=== PATIENT | female | born 1975 | race Caucasian/White ===

== ENCOUNTER 2018-03-22 21:28 | Emergency (ER) | payer BC ==
[~2018-03-22] VITALS: Ht 165.1 cm; Wt 113.4 kg
[~2018-03-22 21:28] MED LIST: ALPR.5T PO; CPR500T PO; CYCL10TA9 PO; DEXL60CA PO; HSCO125 SL; IBP600T1 PO; IBP800T PO; NFNEB10T PO; ONDA-42 SL; PRD20T PO
--- OUTSIDE RECORDS SUMMARY | 2018-03-22 21:34 | XMS REPORT ---
Author Author MONIQUE VILLARREAL [facility] Address [address] [place] [address] Care Team Providers Care Stonemason Apprentice Name Role Phone KENYA VILLARREALTA Unavailable PROBLEMS Type Condition ICD9-CM Code ZYH07-IC Code Onset Dates Condition Status SNOMED Code Problem Hypertriglyceridemia E78.1 Active 925357838 Problem Essential hypertension I10 Active 74107326 Problem Irritable bowel syndrome without diarrhea K58.9 Active 66699074 Problem Morbid (severe) obesity due to excess calories E66.01 Active 166962266 Problem Body mass index (BMI) of 40.0-44.9 in adult Z68.41 Active 841381328 Problem Anxiety F41.9 Active 97301339 Problem Bilateral low back pain without sciatica M54.5 Active 247616988 Problem Alternating constipation and diarrhea R19.8 Active 323925854 Problem Pre-diabetes R73.03 Active 075681114 ALLERGIES No Information ENCOUNTERS Encounter Location Date Diagnosis [facility] [address] [address] Jan, [facility] [address] [address]- 2017 Jan, [facility] [address] [address]- [address] Jan, BMI 40.0-44.9, adult Z68.41 ; Pre-diabetes R73.03 ; Essential hypertension I10 ; Morbid (severe) obesity due to excess calories E66.01 ; Bilateral low back pain without sciatica M54.[address] [facility] [address] [place] [id number] [place] [address]38- 9010 19 Jan, 2018 History of UTI Z87.440 ; Well woman exam with routine gynecological exam Z01.419 ; Screening for breast cancer Z12.31 ; Candidal vaginitis B37.3 and BMI 40.0-44.9, adult Z68.41 [facility] [address], [place] [address] 05 Jan, 2018 [facility] [address], [place] [address] Jan, Dysuria R30.0 ; Acute cystitis with hematuria N30.01 ; Yeast infection B37.9 and BMI 40.0-44.9, adult Z68.41 [facility] [address], [place] [address] Dec, [facility] [id number] [place] [address] 55962- 5069 Dec, [facility] [id number] [place] [address] 96778- 5223 Nov, History of UTI Z87.440 [facility] [id number] [place] [address] 07256- 1552 Nov, UTI symptoms R39.9 ; Acute nasopharyngitis J00 and BMI 40.0- 44.9, adult Z68.41 [facility] [address], [place] [address] Nov, [place] [place] [address], [place] [address] 6062 Nov, Yeast infection involving the vagina and surrounding area B37.3 [facility] [address], [place] [address] 6777 Nov, Yeast infection involving the vagina and surrounding area B37.3 [place] [place] [id number] [place] [address] 37962- 5567 Nov, Yeast infection involving the vagina and surrounding area B37.3 ; Body mass index (BMI) of 40.0-44.9 in adult Z68.41 and Morbid (severe) obesity due to excess calories E66.01 [facility] [id number] [place] [address] 90696- 9025 14 Oct, 2017 Abscess of groin, left L02.214 and Pre-diabetes R73.03 [facility] [address] [address]- 0835 September, Pre-diabetes R73.03 [facility] [address] [address]- [address]5 Aug, [facility] [address] 34131- 0074 Jul, Bilateral low back pain without sciatica M54.5 [facility] [address] [address]65- 3978 Jun, [facility] [address] [address]- 9820 Jun, [facility] [address] [address]76- 7249 Jun, [facility] [address] [address]- 6978 May, [facility] [address] 69[address]- 2353 May, Ingrown left greater toenail L60.0 [facility] [id number] [place] [address] 14416- 2313 May, [facility] [id number] [place] [address] 14524 -6940 May, Influenza A J10.1 ; Fever R50.[address] [facility] [address] [address]- [address] Apr, [facility] [address] [address]- 9037 Apr, [facility] [address] 52769- 6831 Apr, [facility] [id number] [place] [address] 22285- 3327 Apr, Abscess L02.91 and Obesity (BMI 30-39.9) E66.9 [facility] [id number] [place] [address] 34445- 9224 Apr, [facility] [place] [address] 13138- 6604 Apr, [facility] [address] 16649- 8098 Mar, Acute non-recurrent maxillary sinusitis J01.[address] [address]- 8622 Feb, Heartburn R12 [facility] [address] 38355- 0049 Feb, Heartburn R12 ; Low back pain M54.5 ; Essential hypertension I10 ; Bilateral low back pain without sciatica M54.5 ; Anxiety F41.9 ; Pre-diabetes R73.03 ; Other obesity due to excess calories E66.09 ; Alternating constipation and diarrhea R19.8 ; Dyspepsia R10.13 ; Generalized abdominal pain R10.84 ; Rhinosinusitis J32.9 and Boil L02.92 [facility] [id number] [place] [address] 94005- 4490 Jan, Heartburn R12 [facility] [id number] [place] [address] 03640- 2113 Jan, [facility] [id number] [place] [address] 62802- 7085 Jan, [facility] [id number] [place] [address] 71285- 5772 Jan, Acute seasonal allergic rhinitis due to pollen J30.1 and Irritable bowel syndrome without diarrhea K58.9 [facility] [address] 19256- 6015 Dec, Low back pain M54.5 and Acute cystitis with hematuria N30.01 [facility] [address] 45382- 2273 Dec, Low back pain M54.5 and Acute cystitis with hematuria N30.01 [facility] [address] 05962- 8218 Dec, Heartburn R12 ; Essential hypertension I10 ; Acute non- recurrent maxillary sinusitis J01.00 ; Bilateral low back pain without sciatica M54.5 ; Anxiety F41.9 ; Pre-diabetes R73.03 ; Pain in right foot M79.671 ; Pain in left foot M79.672 ; Other obesity due to excess calories E66.09 and Acute cystitis with hematuria N30.01 [facility] [place] [address] 09034- 8210 Dec, Bilateral low back pain without sciatica M54.5 ; Acute non- recurrent maxillary sinusitis J01.00 and Pre-diabetes R73.03 [place] [address] 43689- 7041 Oct, [facility] [place] [address] [address] Aug, [facility] [address] [address] -[address] Aug, Acute vaginitis N76.0 ; Urinary frequency R35.0 ; Screen for STD (sexually transmitted disease) Z11.3 and Abscess L02.91 [facility] [id number] [place] [address] 55159- 6801 Aug, Plantar wart of right foot B07.0 [facility] [address] 63923- 6001 Jul, Plantar wart of right foot B07.0 [facility] [address] 76898- 2314 Jun, [facility] [id number] [place] [address] 24478- 5608 Jun, Heartburn R12 ; Essential hypertension I10 ; Anxiety F41.9 ; Folliculitis L73.9 and Plantar wart of right foot B07.0 [facility] [id number] [place] [address] 67711- 9080 Jun, [facility] [address] 02907 -[address]145 May, Low back pain M54.5 and Other chronic pain G89.29 [place] [address] 64878- 4800 May, [facility] [place] [address] 57595- 9342 May, [facility] [place] [address] 57992- 0286 May, Heartburn R12 ; Bilateral low back pain without sciatica M54.5 ; Essential hypertension I10 ; Long-term use of high-risk medication Z79.899 ; Anxiety F41.9 ; Impacted cerumen of right ear H61.21 ; Folliculitis L73.9 ; High risk bisexual behavior Z72.53 and General medical exam Z00.00 [facility] [address] [id number] [place] [address] 19718- 2065 May, [place] [address] 64846- 8559 May, [facility] [address] 03055- 0713 Mar, Acute nasopharyngitis J00 ; Acute intractable tension-type headache G44.201 and Cough R05 [facility] [id number] [place] [address] 04491- 1564 Jan, [facility] [address] [address] -[address]31 29 Jan, 2016 Abscess L02.91 [facility] [address], [place] [address] 10 Jan, 2016 Urinary urgency R39.15 and Urinary tract infection without hematuria, site unspecified N39.0 [facility] [address], [place] [address]- 6536 Jan, [facility] [id number] [place] [address] 23927- 4631 Jan, [facility] [id number] [place] [address] 30920- 4775 Dec, [facility] [id number] [place] [address] 54709- 9152 Dec, Dermatofibroma D23.9 [facility] [id number] [place] [address] 59481- 5977 September, [facility] [id number] [place] [address] 67969- 7747 Aug, [facility] [id number] [place] [address] 68925- 3362 Aug, Pain in left knee M25.562 ; Heartburn R12 ; Bilateral low back pain without sciatica M54.5 ; Essential hypertension I10 ; Ingrown left big toenail L60.0 ; Chronic pain G89.29 ; Irritable bowel syndrome with constipation K58.[address]9 [facility] [address], [place] [address] Aug, [facility] [id number] [place] [address] 07517- 3931 Jul, [facility] [address], [place] [address]- 2400 Jun, [facility] [id number] [place] [address] 97446- 3663 Jun, [facility] [id number] [place] [address] 65964- 2776 Jun, [facility] [id number] [place] [address] 78276- 9549 Jun, [facility] [id number] [place] [address] 12278- 2495 Jun, Upper respiratory infection J06.9 ; Bilateral low back pain without sciatica M54.[address] [facility] [id number] [place] [address] 82262- 6771 May, [facility] [id number] [place] [address] 48867- 8302 Apr, Bilateral low back pain without sciatica M54.5 ; Upper respiratory infection J06.9 [address] Ye[address] dermatitis B37.2 [facility] [id number] [place] [address] 91821- 9096 Apr, [facility] [id number] [place] [address] 69132- 3838 Apr, [facility] [id number] [place] [address] 85907- 8226 Feb, [facility] [id number] [place] [address] 52454- 5767 Feb, [facility] [id number] [place] [address] 08015- 5132 Feb, [facility] [id number] [place] [address] 77331- 6921 Feb, Essential hypertension I10 ; Heartburn R12 ; Irritable bowel syndrome without diarrhea K58.9 ; Bilateral low back pain, with sciatica presence unspecified M54.5 and Upper respiratory infection J06.9 [facility] [id number] [place] [address] 34354- 1550 Feb, [facility] [id number] [place] [address] 70900- 3508 Feb, Generalized anxiety disorder F41.1 and Grief F43.20 [facility] [id number] [place] [address] 22023- 2386 Jan, [facility] [id number] [place] [address] 34747- 7676 Jan, Back pain 724.5 ; Upper respiratory infection 465.9 ; HTN ( hypertension) 401.9 and Dyspepsia 536.8 [facility] [id number] [place] [address] 12006- 4592 Dec, [facility] [address] [id number] [place] [address] 968541- 7184 Nov, Back pain 724.5 ; Abdominal pain, bilateral lower quadrant 789.03 ; GERD (gastroesophageal reflux disease) 530.81 ; Upper respiratory infection 465.9 ; Dysuria 788.1 and HTN (hypertension) 401.9 [facility] [id number] [place] [address] 85818- 2678 Nov, [facility] [id number] [place] [address] 10467- 1543 Nov, [facility] [id number] [place] [address] 35973- 6160 Nov, [facility] [place] [id number] [place] [address] 10804- 7842 Nov, Cough 786.2 [place] [id number] [place] [address] 30846- 1150 Nov, Cough 786.2 [facility] [address] [place] [id number] [place] [address] 31383- 3871 Oct, Unspecified episodic mood disorder 296.90 and Anxiety disorder, unspecified 300.00 [place] [id number] [place] [address] 11903048- 0207 Oct, Abdominal pain, left upper quadrant 789.02 ; Essential hypertension, benign 401.1 ; Irritable bowel syndrome 564.1 ; Abscess 682.9 ; Heartburn 787.1 ; Acute sinusitis, unspecified 461.9 ; Muscle spasm of back 724.8 ; Cough 786.2 [address] Skin tag [address]9 [facility] [address], [place] [address]- 8114 September, [facility] [id number] [place] [address] 64841- 5867 September, [facility] [id number] [place] [address] 29555- 7180 September, [facility] [id number] [place] [address] 68260- 3506 Aug, [facility] [id number] [address]- 0813 Aug, [facility] [id number] [place] [address] 10372- 3335 Jul, [facility] [address], [place] [address]- 8860 Jul, [facility] [id number] [address]- 8610 Jul, [facility] [address], [place] [address]- 5725 Jul, [facility] [address] [address]- 2739 Jul, [facility] [address]- 7956 Jul, [facility] [id number] [place] [address] 80946- 2829 Jul, [facility] [address]- 0886 Jul, [facility] [address], [place] [address]- 3202 Jul, [facility] [place] [facility] [address] [id number] [place] [address]- 9419 Jul, [facility] [place] [facility] [address] [id number] [place] [address]- 6376 Jul, [facility] [place] [facility] [address] [id number] [place] [address]- 7622 Jul, [facility] [place] [facility] [address] [id number] [place] [address]- 6367 Jul, [facility] [place] [facility] [address] [id number] [place] [address]- 6637 Jul, [facility] [place] [facility] [address] [id number] [place] [address]- 1451 Jul, [facility] [place] [facility] [address] [facility] [id number] [place] [address]- 7486 Jul, [facility] [place] [facility] [address] [id number] [place] [address]- 9018 Jul, [facility] [place] [facility] [address] [id number] [place] [address]- 3538 Jun, [facility] [place] [facility] [address] [id number] [place] [address]- 2411 Jun, [facility] [place] [facility] [address] [id number] [place] [address]- 8529 Jun, 2014 [facility] [place] [facility] [address] [id number], [place] [address]- 7081 Jun, 2014 [facility] [place] [facility] [address] [id number] [place] [address]- 3107 Jun, 2014 [facility] [place] [facility] [address] [id number] [place] [address]- 3021 Jun, 2014 [facility] [place] [facility] [address] [facility] [id number] [place] [address]- 6502 Jun, 2014 [facility] [place] [facility] [address] [id number] [place] [address]- 7455 Jun, [facility] [address] [id number] [place] [address]- 7699 Apr, [facility] [address] [id number] [place] [address]- 7446 Apr, [facility] [address] [id number] [place] [address]- 6856 Apr, [facility] [address] [id number] [place] [address]- 1290 Apr, [facility] [address] [id number] [place] [address]- 8754 Apr, [facility] [address] [id number] [place] [address]- 9362 Apr, [facility] [address] [id number] [place] [address]- 4103 Apr, [facility] [address] [id number] [place] [address]- 2247 Apr, [facility] [address] [id number] [place] [address]- 1725 Apr, [facility] [address] [id number] [place] [address]- 0931 Apr, [facility] [place] [facility] [address] [id number] [place] [address]- 8693 Apr, [facility] [place] [facility] [address] [id number] [place] [address]- 9679 Apr, [facility] [place] [facility] [address] [id number] [place] [address]- 2969 Apr, [facility] [place] [facility] [address] [id number] [place] 5563 Apr, [facility] [place] [facility] [address] [id number] [place] [address]- 6053 Apr, [facility] [place] [facility] [address] [id number] [place] [address]- 9190 Feb, [facility] [place] [facility] [address] [id number] [place] [address]- 5272 Feb, [facility] [place] [facility] [address] [id number] [place] 3084 Feb, [facility] [place] [facility] [address] [id number] [place] [address]- 6728 Feb, [facility] [place] [facility] [address] [id number] [place] [address]- 5916 Feb, [facility] [place] [facility] [address] [id number] [place] [address]- 3290 Feb, [facility] [place] [facility] [address] [id number] [place] [address]- 2874 Jan, [facility] [place] [facility] [address] [id number] [place] [address]- 7051 Jan, 2013 [facility] [place] [facility] [address] [id number] [place] [address]- 8312 Jan, [facility] [place] [facility] [address] [id number] [place] [address]- 8980 Jan, 2013 [facility] [place] [facility] [address] [id number], [place] [address]- 8510 Jan, 2013 [facility] [place] [facility] [address] [id number], [place] [address]- 1823 Jan, 2013 [facility] [place] [facility] [address] [id number] [place] [address]- 7238 Dec, [facility] [place] [facility] [address] [id number] [place] [address]- 6807 Dec, [facility] [place] [facility] [address] [id number], [place] [address]- 8380 Dec, [facility] [place] [facility] [address] [id number], [place] [address]- 6223 Dec, [facility] [place] [facility] [address] [id number] [place] [address]- 5375 Nov, [facility] [place] [facility] [address] [id number] [place] [address]- 1345 Nov, [facility] [place] [facility] [address] [id number] [place] [address]- 5971 Nov, [facility] [place] [facility] [address] [id number] [place] [address]- 4360 Nov, [facility] [place] [facility] [address] [id number] [place] [address]- 3060 Nov, [facility] [place] [facility] [address] [id number] [place] [address]- 2776 Nov, [facility] [place] [facility] [address] [id number] [place] [address] Nov, [facility] [place] [facility] [address] [id number] [place] [address] Nov, [facility] [place] [facility] [address] [id number] [place] [address] Oct, [facility] [place] [facility] [address] [id number] [place] [address] Oct, [facility] [place] [facility] [address] [id number] [place] [address] Oct, [facility] [place] [facility] [address] [id number] [place] [address] Oct, [facility] [place] [facility] [address] [id number] [place] [address] Oct, [facility] [place] [facility] [address] [id number] [place] [address] Oct, [facility] [place] [facility] [address] [id number] [place] [address] Oct, [facility] [place] [facility] [address] [id number] [place] [address] Oct, [facility] [place] [facility] [address] [id number] [place] [address] Oct, [facility] [place] [facility] [address] [id number] [place] [address] Oct, [facility] [place] [facility] [address] [id number] [place] [address] Oct, [facility] [place] [facility] [address] [id number] [place] [address] Oct, [facility] [place] [facility] [address] [id number] [place] [address] Oct, [facility] [place] [facility] [address] [id number] [place] [address] 18 Oct, 2013 [facility] [place] [facility] [address] [id number] [place] [address] 17 Oct, 2013 [facility] [place] [facility] [address] [id number] [place] [address] 17 Oct, 2013 [facility] [place] [facility] [address] [id number] [place] [address] 16 Oct, 2013 [facility] [place] [facility] [address] [id number] [place] [address] 16 Oct, 2013 [facility] [place] [facility] [address] [id number] [place] [address]- [address] 13 Oct, 2013 [facility] [place] [facility] [address] [id number] [place] [address] 13 Oct, 2013 [facility] [place] [facility] [address] [id number] [place] [address] Oct, [facility] [place] [facility] [address] [id number] [place] [address] Oct, [facility] [place] [facility] [address] [id number] [place] [address] Oct, [facility] [place] [facility] [address] [id number] [place] [address] Oct, [facility] [place] [facility] [address] [id number] [place] [address] Oct, [facility] [place] [facility] [address] [id number] [place] [address] Oct, [facility] [place] [facility] [address] [id number] [place] [address] Oct, [facility] [place] [facility] [address] [id number] [place] [address] Oct, [facility] [place] [facility] [address] [id number] [place] [address] Oct, [facility] [place] [facility] [address] [id number] [place] [address] Oct, [facility] [place] [facility] [address] [id number] [place] [address] September, [facility] [place] [facility] [address] [id number] [place] [address] September, [facility] [place] [facility] [address] [id number] [place] [address] September, [facility] [place] [facility] [address] [id number] [place] [address] September, [facility] [place] [facility] [address] [id number] [place] [address] September, [facility] [place] [facility] [address] [id number] [place] [address] September, [facility] [place] [facility] [address] [id number] [place] [address] September, [facility] [place] [facility] [address] [id number] [place] [address] September, [facility] [place] [facility] [address] [id number] [place] [address] September, [facility] [address] [id number] [place] [address] September, [facility] [place] [facility] [address] [address] [id number] [place] [address] September, [facility] [place] [facility] [address] [id number] [place] [address] September, [facility] [place] [facility] [address] [id number] [place] [address] September, [facility] [place] [facility] [address] [id number] [place] [address]105 September, [facility] [place] [facility] [address] [id number] [place] [address] September, [facility] [address] [id number] [place] [address] September, [facility] [place] [facility] [address] [id number] [place] [address] 7278 September, [facility] [place] [facility] [address] [id number] [place] [address]34 September, [facility] [place] [facility] [address] [id number] [place] [address] Aug, [facility] [place] [facility] [address] [id number] [place] [address] 1235 Aug, [facility] [place] [facility] [address] [id number] [place] [address] 0766 Aug, [facility] [place] [facility] [address] [id number] [place] [address] 1580 Aug, [facility] [place] [facility] [address] [id number] [place] [address] 7849 Aug, [facility] [place] [facility] [address] [id number] [place] [address] 4891 Aug, [facility] [place] [facility] [address] [id number] [place] [address] 9795 Jul, [facility] [place] [facility] [address] [id number] [place] [address]- 4566 Jul, [facility] [place] [facility] [address] [id number] [place] [address] 8098 Jul, [facility] [place] [facility] [address] [id number] [place] [address]- 2203 Jul, [facility] [place] [facility] [address] [id number] [place] [address]- 8811 Jun, [facility] [place] [facility] [address] [id number] [place] [address]- 7602 Jun, [facility] [place] [facility] [address] [id number] [place] [address]- 3187 Jun, [facility] [place] [facility] [address] [id number] [place] [address]- [address] Jun, [facility] [place] [facility] [address] [id number] [place] [address] 7955 Mar, [facility] [place] [facility] [address] [id number], [place] [address] 14 Mar, 2013 [facility] [place] [facility] [address] [id number], [place] [address]- 3[address] Mar, [facility] [place] [facility] [address] [id number], [place] [address] 1511 Mar, [facility] [place] [facility] [address] [id number] [place] [address]- 8237 Feb, [facility] [place] [facility] [address] [id number] [place] [address]- 0584 Feb, [facility] [place] [facility] [address] [id number], [place] [address] 0[address] Feb, [facility] [place] [facility] [address] [id number], [place] [address] 0651 Jan, [facility] [place] [facility] [address] [id number] [place] [address]- 7264 Jan, [facility] [place] [facility] [address] [id number] [place] [address]- 0045 Jan, [facility] [place] [facility] [address] [id number] [place] [address]- 8483 Jan, [facility] [place] [facility] [address] [id number] [place] [address]- 3326 Dec, [facility] [place] [facility] [address] [id number] [place] [address]- 2510 Dec, [facility] [place] [facility] [address] [id number] [place] [address]- 9858 Dec, [facility] [address] [id number] [place] [address] 1829 Dec, [facility] [place] [facility] [address] [id number] [place] [address] 4098 Nov, [facility] [place] [facility] [address] [id number] [place] [address]- 0922 Nov, [facility] [place] [facility] [address] [id number] [place] [address]- 3930 Nov, [facility] [place] [facility] [address] [id number] [place] [address]- 0854 Nov, [facility] [place] [facility] [address] [id number] [place] [address]- 4438 Nov, [facility] [place] [facility] [address] [id number] [place] [address]- 1532 Nov, [facility] [place] [facility] [address] [id number] [place] [address]- 2119 Oct, [facility] [place] [facility] [address] [id number] [place] [address]- 6728 Oct, [facility] [place] [facility] [address] [id number] [place] [address]- 8219 25 Oct, 2012 [facility] [place] [facility] [address] [id number] [place] [address]- 8519 Oct, [facility] [place] [facility] [address] [id number] [place] [address]- 5192 17 Oct, 2012 [facility] [place] [facility] [address] [id number] [place] [address]- 0139 16 Oct, 2012 [facility] [place] [facility] [address] [id number] [place] [address]- 4280 14 Oct, 2012 [facility] [place] [facility] [address] [id number] [place] [address]- 7975 13 Oct, 2012 [facility] [place] [facility] [address] [id number] [place] [address]- 5589 Oct, [facility] [place] [facility] [address] [id number] [place] [address]- 6055 Oct, [facility] [place] [facility] [address] [id number] [place] [address]- 9278 September, [facility] [place] [facility] [address] [id number] [place] [address]- 2743 September, [facility] [place] [facility] [address] [id number] [place] [address]- 3859 September, [facility] [place] [facility] [address] [id number] [place] [address]- 6881 Aug, [facility] [place] [facility] [address] [id number] [place] [address]- 9347 Aug, [facility] [place] [facility] [address] [id number] [place] [address]- 9057 Aug, [facility] [place] [facility] [address] [id number] [place] [address]- 6595 Aug, [facility] [place] [facility] [address] [id number] [place] [address] 30 Jul, 2012 [facility] [address] [id number] [place] [address]- 6349 29 Jul, 2012 [facility] [place] [facility] [address] [id number] [place] [address]- 6150 Jul, [facility] [address] [id number] [place] [address]- 6146 Jul, [facility] [place] [facility] [address] [id number] [place] [address]- 9219 Jul, [facility] [address] [id number] [place] [address]- 3647 Jul, [facility] [address] [id number] [place] [address]- 7721 May, [facility] [address] [id number] [place] [address]- 4105 May, [facility] [place] [facility] [address] [id number] [place] [address]- 5533 May, [facility] [address] [id number] [place] [address]- 2935 May, [facility] [place] [facility] [address] [id number] [place] [address]- 2864 May, [facility] [place] [facility] [address] [id number] [place] [address]- 5392 May, [facility] [place] [facility] [address] [id number], [place] [address]- 0599 May, [facility] [place] [facility] [address] [id number] [place] [address]- 2629 18 May, 2012 [facility] [place] [facility] [address] [id number] [place] [address]- 9888 May, [facility] [place] [facility] [address] [id number] [place] [address]- 6532 May, [facility] [place] [facility] [address] [id number] [place] [address]- 2443 May, [facility] [place] [facility] [address] [id number] [place] [address]- 4906 Apr, [facility] [place] [facility] [address] [id number] [place] [address]- 8286 Apr, [facility] [place] [facility] [address] [id number] [place] [address]- 2563 Apr, [facility] [place] [facility] [address] [id number] [place] [address]- 6949 Apr, [facility] [place] [facility] [address] [id number] [place] [address]- 5524 Apr, [facility] [place] [facility] [address] [id number] [place] [address]- 1190 Apr, [facility] [place] [facility] [address] [id number] [place] [address]- 1904 Mar, [facility] [place] [facility] [address] [id number] [place] [address]- 9204 Mar, [facility] [place] [facility] [address] [id number] [place] [address]- 7954 Mar, [facility] [place] [facility] [address] [facility] [id number] [place] [address]- 2827 Mar, [facility] [place] [facility] [address] [id number] [place] [address]- 6744 Mar, [facility] [place] [facility] [address] [id number] [place] [address]- 9914 Mar, [facility] [place] [facility] [address] [id number] [place] [address]- 7903 Mar, [facility] [place] [facility] [address] [id number] [place] [address]- 3476 Mar, [facility] [place] [facility] [address] [id number] [place] [address]- 2844 Feb, [facility] [place] [facility] [address] [id number] [place] [address]- 2986 23 Feb, 2012 [facility] [place] [facility] [address] [id number] [place] [address]- 4182 16 Feb, 2012 [facility] [place] [facility] [address] [id number] [place] [address]- 2810 15 Feb, 2012 [facility] [place] [facility] [address] [id number] [place] [address]- 4184 15 Feb, 2012 [facility] [place] [facility] [address] [id number] [place] [address]- 7078 13 Feb, 2012 [facility] [place] [facility] [address] [id number] [place] [address]- 9383 Feb, [facility] [place] [facility] [address] [id number] [place] [address]- 0451 Feb, [facility] [place] [facility] [address] [id number] [place] [address]- 4192 Feb, [facility] [place] [facility] [address] [id number] [place] [address]- 3831 Feb, [facility] [place] [facility] [address] [id number] [place] [address]- 7669 Feb, [facility] [place] [facility] [address] [id number] [place] [address]- 7075 Feb, [facility] [place] [facility] [address] [id number], [place] [address]- 1867 Feb, [facility] [place] [facility] [address] [id number] [place] [address]- 4092 Feb, [facility] [place] [facility] [address] [id number] [place] [address]- 6280 Feb, [facility] [place] [facility] [address] [id number] [place] [address]- 5516 Feb, [facility] [place] [facility] [address] [id number] [place] [address]- 2546 Feb, [facility] [place] [facility] [address] [id number] [place] [address]- 6576 Feb, [facility] [place] [facility] [address] [id number] [place] [address]- 0886 Jan, [facility] [place] [facility] [address] [id number] [place] [address] 2546 13 Jan, 2012 [facility] [place] [facility] [address] [id number] [place] [address] 2546 11 Jan, 2012 [facility] [place] [facility] [address] [id number] [place] [address]- 0828 10 Jan, 2012 [facility] [place] [facility] [address] [id number] [place] [address]- 6908 05 Jan, 2012 [facility] [place] [facility] [address] [id number] [place] [address]- 2479 Dec, [facility] [place] [facility] [address] [id number] [place] [address]- 4879 Dec, [facility] [place] [facility] [address] [id number] [place] [address]- 6116 Dec, [facility] [place] [facility] [address] [id number] [place] [address]- 1322 Dec, [facility] [place] [facility] [address] [id number] [place] [address]- 8624 Dec, [facility] [place] [facility] [address] [id number] [place] [address]- 7637 Dec, [facility] [place] [facility] [address] [id number] [place] [address]- 6133 Nov, [facility] [place] [facility] [address] [id number] [place] [address]- 7402 Nov, [facility] [place] [facility] [address] [id number] [place] [address] Nov, [facility] [place] [facility] [address] [id number] [place] [address]- 6969 Nov, [facility] [address] [id number] [place] [address]- 8269 Nov, [facility] [place] [facility] [address] [id number] [place] [address]- 7616 Oct, [facility] [address] [id number] [place] [address]- 8431 Oct, [facility] [address] [id number] [place] [address]- 7779 Oct, [facility] [address] [id number] [place] [address]- 1735 September, [facility] [address] [id number] [place] [address]- 4556 September, [facility] [address] [id number] [place] [address]- 3233 September, [facility] [address] [id number] [place] [address]- 2014 September, [facility] [address] [id number] [place] [address]- 6275 September, [facility] [address] [id number] [place] [address]- 2888 September, [facility] [address] [id number] [place] [address]- 3725 Aug, [facility] [address] [id number] [place] [address]- 6953 Aug, [facility] [place] [facility] [address] [id number] [place] [address]- 4296 Aug, [facility] [place] [facility] [address] [id number] [place] [address]- 3903 Jun, [facility] [place] [facility] [address] [id number] [place] [address]- 3320 Jun, [facility] [address] [id number] [place] [address]- 0000 Jun, [facility] [place] [facility] [address] [id number] [place] [address]- 5193 Jun, [facility] [place] [facility] [address] [id number] [place] [address]- 5403 May, [facility] [place] [facility] [address] [id number] [place] [address]- 5198 May, [facility] [address] [id number] [place] [address]- 5125 May, [facility] [place] [facility] [address] [id number] [place] [address]- 1517 May, [facility] [place] [facility] [address] [id number] [place] [address]- 6339 May, [facility] [place] [facility] [address] [id number] [place] [address]- 7938 Apr, [facility] [place] [facility] [address] [id number] [place] [address]- 1090 Apr, [facility] [place] [facility] [address] [id number] [place] [address]- 2496 Apr, [facility] [place] [facility] [address] [id number] [place] [address]- 8022 Apr, [facility] [place] [facility] [address] [id number], [place] [address]- 4156 Apr, [facility] [place] [facility] [address] [id number] [place] [address]- 9294 16 Apr, 2011 [facility] [place] [facility] [address] [id number] [place] [address]- 1073 16 Apr, 2011 [facility] [place] [facility] [address] [id number] [place] [address]- 9617 Mar, [facility] [place] [facility] [address] [id number] [place] [address]- 4876 Mar, [facility] [address] [id number] [place] [address]- 3331 Mar, [facility] [place] [facility] [address] [id number] [place] [address]- 7935 Feb, [facility] [place] [facility] [address] [id number] [place] [address]- 3759 Feb, [facility] [place] [facility] [address] [id number] [place] [address]- 8739 Feb, [facility] [place] [facility] [address] [id number] [place] [address]- 2938 Feb, [facility] [place] [facility] [address] [id number] [place] [address]- 1068 Feb, [facility] [place] [facility] [address] [id number] [place] [address]- 6145 Feb, [facility] [place] [facility] [address] [id number] [place] [address]- 7054 Jan, [facility] [place] [facility] [address] [id number] [place] [address]- 5912 Jan, [facility] [place] [facility] [address] [facility] [id number] [place] [address]- 6874 September, [facility] [place] [facility] [address] [id number] [place] 6871 Jun, [facility] [place] [facility] [address] [id number] [place] [address]- 5592 Apr, [facility] [place] [facility] [address] [id number] [place] [address]- 9394 Apr, [facility] [place] [facility] [address] [id number] [place] 3992 Apr, [facility] [place] [facility] [address] [id number] [place] [address] Apr, [facility] [address] [facility] [id number][place] [address]40 Apr, [facility] [address] [facility] [id number][place] [address]292 Mar, [facility] [address] [facility] [id number], [place] [address]- 99[address] Mar, [facility] [address] [facility] [id number], [place] [address]- 7994 Mar, [facility] [address] [facility] [id number], [place] [address]- 4983 Mar, [facility] [id number], [place] [address]- [address] Feb, [facility] [id number], [place] [address]- 2613 [address], [address] [facility] [id number], [place] [address]- 0309 Mar, [facility] [id number], [place] [address]- 4560 [address], [address] [facility] [id number], [place] [address]- 2608 Oct, [facility] [address] [id number], [place] [address] 0464 Apr, IMMUNIZATIONS No Known Immunizations SOCIAL HISTORY Never Assessed REASON FOR VISIT Lynn RODRIGUEZ PLAN OF CARE VITAL SIGNS MEDICATIONS Unknown Medications RESULTS No Results PROCEDURES No Known procedures INSTRUCTIONS MEDICATIONS ADMINISTERED No Known Medications MEDICAL (GENERAL) HISTORY Type Description Date Medical History back pain Medical History anxiety Medical History MRSA Medical History bipolar disorder Medical History hypertension Medical History mood disorder Medical History irritable bowel syndrome Medical History obesity Medical History allergic rhinitis Medical History heartburn Medical History hx of gestational diabetes Medical History Plantar wart of right foot Medical History High risk bisexual behavior Medical History Well woman exam Medical History Rhinosinusitis Medical History Pain in left foot Medical History Pain in right foot Surgical History section x2 Surgical History Kidney Surgery- kidney stones removed Surgical History tonsillectomy and adenoidectomy Surgical History Tubal Ligation Surgical History Bladder surgery - Mesh Surgical History Genito-urinary tract surgery ablation 4-5 years ago and also placed a mesh in there Surgical History Dental Surgery- wisdom teeth Hospitalization History surgery
--- OUTSIDE RECORDS SUMMARY | 2018-03-22 21:34 | XMS REPORT ---
Author Author ARLENE KHAN [facility] Address [address] [place] [address] Care Team Providers Care Drug Room Operator Name Role Phone ARLENE KHAN Unavailable PROBLEMS Type Condition ICD9-CM Code TOW14-QD Code Onset Dates Condition Status SNOMED Code Problem Hypertriglyceridemia E78.1 Active 088508485 Problem Essential hypertension I10 Active 12734665 Problem Irritable bowel syndrome without diarrhea K58.9 Active 38225662 Problem Morbid (severe) obesity due to excess calories E66.01 Active 285371084 Problem Body mass index (BMI) of 40.0-44.9 in adult Z68.41 Active 591005986 Problem Anxiety F41.9 Active 08059155 Problem Bilateral low back pain without sciatica M54.5 Active 188474739 Problem Alternating constipation and diarrhea R19.8 Active 441889158 Problem Pre-diabetes R73.03 Active 980599652 ALLERGIES Substance Reaction Event Type Date Status Penicillin V Potassium anaphylaxis Drug Allergy Feb, Active surgical tape "tears skin off" Non Drug Allergy Feb, Active ENCOUNTERS Encounter Location Date Diagnosis [facility] [id number] [place] [address] 13016 -9789 Feb, Abrasion of right ear canal, initial encounter S00.411A ; Left wrist pain M25.532 ; Right acute serous otitis media, recurrence not specified H65.01 and BMI 40.0-44.9, adult Z68.41 [facility] [id number] [place] [address] 33474- 8228 Jan, [facility] [id number] [place] [address] 79009- 7810 Jan, [facility] [id number] [place] [address] 32230- 1151 Jan, BMI 40.0-44.9, adult Z68.41 ; Pre-diabetes R73.03 ; Essential hypertension I10 ; Morbid (severe) obesity due to excess calories E66.01 ; Bilateral low back pain without sciatica M54.5 and Heartburn R12 [facility] [id number] [place] [address] 61297- 5341 19 Jan, 2018 History of UTI Z87.440 ; Well woman exam with routine gynecological exam Z01.419 ; Screening for breast cancer Z12.31 ; Candidal vaginitis B37.3 and BMI 40.0-44.9, adult Z68.41 [facility] [address] 33821- 8580 05 Jan, 2018 [facility] [id number] [place] [address] 37279 -5497 Jan, Dysuria R30.0 ; Acute cystitis with hematuria N30.01 ; Yeast infection B37.9 and BMI 40.0-44.9, adult Z68.41 [facility] [id number] [place] [address] 00726- 5817 Dec, [facility] [address] 97881- 7103 Dec, [facility] [id number] [place] [address] 58946- 0462 Nov, History of UTI Z87.440 [facility] [id number] [place] [address] 69117- 4891 Nov, UTI symptoms R39.9 ; Acute nasopharyngitis J00 and BMI 40.0- 44.9, adult Z68.41 [facility] [address] 55263- 2953 Nov, [facility] [id number] [place] [address] 28649- 5231 Nov, Yeast infection involving the vagina and surrounding area B37.3 [facility] [address] [place] [address]- 5289 Nov, Yeast infection involving the vagina and surrounding area B37.3 [facility] [address] 64788- 0099 Nov, Yeast infection involving the vagina and surrounding area B37.3 ; Body mass index (BMI) of 40.0-44.9 in adult Z68.41 and Morbid (severe) obesity due to excess calories E66.01 [facility] [address] 22292- 7689 Oct, Abscess of groin, left L02.214 and Pre-diabetes R73.03 [facility] [address] 74134- 0304 September, Pre-diabetes R73.03 [facility] [address] 77654- 2524 Aug, [facility] [address] 54466- 7696 Jul, Bilateral low back pain without sciatica M54.5 [facility] [address] 80341- 8910 Jun, [facility] [id number] [place] [address] 21106- 5742 Jun, [facility] [address] 11037- 2014 Jun, [facility] [id number] [place] [address] 91588- 2916 May, [facility] [address] 30583- 3984 May, Ingrown left greater toenail L60.0 [facility] [id number] [place] [address] 91046- 3501 May, [facility] [address] 00555 -5722 May, Influenza A J10.1 ; Fever R50.9 and Body aches R52 [facility] [address] 25578- 9045 Apr, [facility] [id number] [place] [address] 10056- 9251 Apr, [facility] [address] 10948- 8616 Apr, [facility] [address] 27864- 5998 Apr, Abscess L02.91 and Obesity (BMI 30-39.9) E66.9 [facility] [address] 99895- 6084 Apr, [facility] [address] 91593- 0565 Apr, [facility] [id number] [place] [address] 22230- 1717 Mar, Acute non-recurrent maxillary sinusitis J01.00 [facility] [address] 88300- 4642 Feb, Heartburn R12 [facility] [address] 84207- 3569 Feb, Heartburn R12 ; Low back pain M54.5 ; Essential hypertension I10 ; Bilateral low back pain without sciatica M54.5 ; Anxiety F41.9 ; Pre-diabetes R73.03 ; Other obesity due to excess calories E66.09 ; Alternating constipation and diarrhea R19.8 ; Dyspepsia R10.13 ; Generalized abdominal pain R10.84 ; Rhinosinusitis J32.9 and Boil L02.92 [facility] [id number] [place] [address] 03946- 5593 Jan, Heartburn R12 [facility] [address] 77220- 9010 Jan, [facility] [id number] [place] [address] 41199- 9455 Jan, [facility] [id number] [place] [address] 41119- 3727 Jan, Acute seasonal allergic rhinitis due to pollen J30.1 and Irritable bowel syndrome without diarrhea K58.9 [facility] [id number] [place] [address] 11605- 6503 Dec, Low back pain M54.5 and Acute cystitis with hematuria N30.01 [facility] [id number] [place] [address] 51865- 1562 Dec, Low back pain M54.5 and Acute cystitis with hematuria N30.01 [facility] [id number] [place] [address] 78309- 8095 Dec, Heartburn R12 ; Essential hypertension I10 ; Acute non- recurrent maxillary sinusitis J01.00 ; Bilateral low back pain without sciatica M54.5 ; Anxiety F41.9 ; Pre-diabetes R73.03 ; Pain in right foot M79.671 ; Pain in left foot M79.672 ; Other obesity due to excess calories E66.09 and Acute cystitis with hematuria N30.01 [facility] [id number] [place] [address] 59822- 2899 Dec, Bilateral low back pain without sciatica M54.5 ; Acute non- recurrent maxillary sinusitis J01.00 and Pre-diabetes R73.03 [facility] [id number] [place] [address] 43097- 4539 Oct, [facility] [id number] [place] [address] 30415 -6222 Aug, [facility] [id number] [place] [address] 22097 -5660 Aug, Acute vaginitis N76.0 ; Urinary frequency R35.0 ; Screen for STD (sexually transmitted disease) Z11.3 and Abscess L02.91 [facility] [id number] [place] [address] 94035- 6217 Aug, Plantar wart of right foot B07.0 [facility] [address] 50301- 2774 Jul, Plantar wart of right foot B07.0 [facility] [address] 58092- 2417 Jun, [facility] [address] 45830- 3404 Jun, Heartburn R12 ; Essential hypertension I10 ; Anxiety F41.9 ; Folliculitis L73.9 and Plantar wart of right foot B07.0 [facility] [address] 48196- 6600 Jun, [facility] [address] 68183 -6884 May, Low back pain M54.5 and Other chronic pain G89.29 [facility] [address] 22974- 4000 May, [facility] [address] 31377- 8558 May, [facility] [address] 31546- 7211 May, Heartburn R12 ; Bilateral low back pain without sciatica M54.5 ; Essential hypertension I10 ; Long-term use of high-risk medication Z79.899 ; Anxiety F41.9 ; Impacted cerumen of right ear H61.21 ; Folliculitis L73.9 ; High risk bisexual behavior Z72.53 and General medical exam Z00.00 [facility] [id number] [place] [address] 29990- 3919 May, [facility] [address] [place] [address]- 0426 May, [facility] [id number] [place] [address] 45354- 2307 Mar, Acute nasopharyngitis J00 ; Acute intractable tension-type headache G44.201 and Cough R05 [facility] [id number] [place] [address] 43990- 3012 Jan, [facility] [address] 11271 -0753 Jan, Abscess L02.91 [facility] [id number] [place] [address] 15254 -7893 Jan, Urinary urgency R39.15 and Urinary tract infection without hematuria, site unspecified N39.0 [facility] [id number] [place] [address] 97763- 0953 Jan, [facility] [id number] [place] [address] 87474- 6621 Jan, [facility] [id number] [place] [address] 80112- 7498 Dec, [facility] [id number] [place] [address] 30678- 1355 Dec, Dermatofibroma D23.9 [facility] [id number] [place] [address] 22268- 5051 September, [facility] [id number] [place] [address] 78675- 2581 Aug, [facility] [id number] [place] [address] 71676- 0362 Aug, Pain in left knee M25.562 ; Heartburn R12 ; Bilateral low back pain without sciatica M54.5 ; Essential hypertension I10 ; Ingrown left big toenail L60.0 ; Chronic pain G89.29 ; Irritable bowel syndrome with constipation K58.9 and Skin infection L08.9 [facility] [address] [address]- 0264 Aug, [facility] [id number] [place] [address] 39631- 3711 Jul, [facility] [id number] [place] [address] 47417- 6419 Jun, [facility] [id number] [place] [address] 45252- 7136 Jun, [facility] [id number] [place] [address] 33149- 9491 Jun, [facility] [id number] [place] [address] 92768- 0223 Jun, [facility] [id number] [place] [address] 41560- 8262 Jun, Upper respiratory infection J06.9 ; Bilateral low back pain without sciatica M54.5 and Headache R51 [facility] [id number] [place] [address] 43447- 1199 May, [facility] [id number] [place] [address] 05439- 2604 Apr, Bilateral low back pain without sciatica M54.5 ; Upper respiratory infection J06.9 and Yeast dermatitis B37.2 [facility] [id number] [place] [address] 93432- 9932 Apr, [facility] [id number] [place] [address] 29710- 6948 Apr, [facility] [id number] [place] [address] 38887- 3288 Feb, [facility] [id number] [place] [address] 48580- 3027 Feb, [facility] [id number] [place] [address] 46139- 2363 Feb, [facility] [id number] [place] [address] 33753- 6572 Feb, Essential hypertension I10 ; Heartburn R12 ; Irritable bowel syndrome without diarrhea K58.9 ; Bilateral low back pain, with sciatica presence unspecified M54.5 and Upper respiratory infection J06.9 [facility] [id number] [place] [address] 13632- 6999 Feb, [facility] [address] 25408- 5376 Feb, Generalized anxiety disorder F41.1 and Grief F43.[address] 04888- 6260 Jan, [facility] [address] 74122- 7696 Jan, Back pain 724.5 ; Upper respiratory infection 465.9 ; HTN ( hypertension) 401.9 and Dyspepsia 536.8 [facility] [id number] [place] [address] 15216- 2554 Dec, [facility] [address] 36170- 2904 Nov, Back pain 724.5 ; Abdominal pain, bilateral lower quadrant 789.03 ; GERD (gastroesophageal reflux disease) 530.81 ; Upper respiratory infection 465.9 ; Dysuria 788.1 and HTN (hypertension) 401.9 [facility] [id number] [place] [address] 60222- 1791 Nov, [facility] [id number] [place] [address] 77771- 3275 Nov, [facility] [id number] [place] [address] 22307- 0410 Nov, [facility] [id number] [place] [address] 56251- 9664 Nov, Cough 786.[address] [place] [address]- 6065 Nov, Cough 786.2 [facility] [id number] [place] [address] 49539- 1456 Oct, Unspecified episodic mood disorder 296.90 and Anxiety disorder, unspecified 300.00 [facility] [id number] [place] [address] 757318- 6789 Oct, Abdominal pain, left upper quadrant 789.02 ; Essential hypertension, benign 401.1 ; Irritable bowel syndrome 564.1 ; Abscess 682.9 ; Heartburn 787.1 ; Acute sinusitis, unspecified 461.9 ; Muscle spasm of back 724.8 ; Cough 786.2 and Skin tag 701.9 [facility] [id number] [place] [address] 10231- 6606 September, [facility] [id number] [place] [address] 89840- 4912 September, [facility] [id number] [place] [address] 51445- 2316 September, [facility] [id number] [place] [address] 81450- 3962 Aug, [facility] [id number] [place] [address] 66469- 8335 Aug, [facility] [id number] [place] [address] 08399- 5576 Jul, [facility] [id number] [place] [address] 81368- 7864 Jul, [facility] [id number] [place] [address] 529853- 8500 Jul, [facility] [id number] [place] [address] 89875888- 4880 Jul, [facility] [id number] [place] [address] 87788- 5491 Jul, [facility] [place] [facility] [address] [id number] [place] [address]- 1725 Jul, [facility] [place] [facility] [address] [id number] [place] [address]- 0909 Jul, [facility] [place] [facility] [address] [id number] [place] [address]- 0417 Jul, [facility] [place] [facility] [address] [id number] [place] [address]- 7990 Jul, [facility] [place] [facility] [address] [id number] [place] [address]- 3959 Jul, [facility] [place] [facility] [address] [id number] [place] [address]- 4737 Jul, [facility] [place] [facility] [address] [id number] [place] [address]- 0374 Jul, [facility] [place] [facility] [address] [id number] [place] [address]- 1353 Jul, [facility] [place] [facility] [address] [id number] [place] [address]- 2641 Jul, [facility] [place] [facility] [address] [id number] [place] [address]- 6758 Jul, [facility] [place] [facility] [address] [id number] [place] [address]- 7546 Jul, [facility] [place] [facility] [address] [id number] [place] [address]- 6965 Jul, [facility] [place] [facility] [address] [id number] [place] [address]- 8411 Jun, [facility] [place] [facility] [address] [id number] [place] [address]- 3514 Jun, [facility] [place] [facility] [address] [id number] [place] [address]- 2603 Jun, [facility] [place] [facility] [address] [id number] [place] [address]- 1753 Jun, 2014 [facility] [address] [id number] [place] [address]- 4269 Jun, 2014 [facility] [place] [facility] [address] [id number] [place] [address]- 0456 Jun, 2014 [facility] [place] [facility] [address] [id number] [place] [address]- 4085 Jun, 2014 [facility] [place] [facility] [address] [id number] [place] [address]- 3345 Jun, 2014 [facility] [address] [id number] [place] [address]- 9838 Apr, [facility] [place] [facility] [address] [id number] [place] [address]- 9193 Apr, [facility] [address] [id number] [place] [address]- 2271 Apr, [facility] [place] [facility] [address] [id number] [place] [address]- 7981 Apr, [facility] [place] [facility] [address] [id number] [place] [address]- 7208 Apr, [facility] [place] [facility] [address] [facility] [id number] [place] [address]- 8364 Apr, [facility] [place] [facility] [address] [id number] [place] [address]- 1037 15 Apr, 2014 [facility] [place] [facility] [address] [id number] [place] [address]- 1051 15 Apr, 2014 [facility] [place] [facility] [address] [id number] [place] [address]- 4048 12 Apr, 2014 [facility] [place] [facility] [address] [id number] [place] [address]- 3340 Apr, [facility] [place] [facility] [address] [facility] [id number] [place] [address]- 8838 Apr, [facility] [place] [facility] [address] [id number] [place] 1768 Apr, [facility] [place] [facility] [address] [id number] [place] [address]- 3481 Apr, [facility] [place] [facility] [address] [id number] [place] [address]- 9740 Apr, [facility] [place] [facility] [address] [id number] [place] 6306 Apr, [facility] [place] [facility] [address] [id number] [place] [address]- 4075 Feb, [facility] [place] [facility] [address] [id number] [place] [address]- 8172 Feb, [facility] [place] [facility] [address] [id number] [place] [address]- 3422 Feb, [facility] [place] [facility] [address] [id number] [place] [address]- 2208 Feb, [facility] [place] [facility] [address] [id number] [place] [address]- 8030 Feb, [facility] [place] [facility] [address] [id number] [place] [address]- 9622 Feb, [facility] [place] [facility] [address] [id number] [place] [address]- 4673 08 Jan, 2014 [facility] [place] [facility] [address] [id number] [place] [address]- 6901 08 Sep, 2013 [facility] [place] [facility] [address] [id number] [place] [address]- 1143 05 Sep, 2013 [facility] [place] [facility] [address] [id number] [place] [address]- 3296 05 Sep, 2013 [facility] [place] [facility] [address] [id number] [place] [address]- 1480 Sep, 2013 [facility] [place] [facility] [address] [id number] [place] [address]- 5566 Jan, [facility] [place] [facility] [address] [id number] [place] [address]- 5665 Dec, [facility] [place] [facility] [address] [id number] [place] [address]- 8407 Dec, [facility] [place] [facility] [address] [id number] [place] [address]- 3869 Dec, [facility] [place] [facility] [address] [id number] [place] [address]- 0470 Dec, [facility] [place] [facility] [address] [id number] [place] [address]- 2259 Nov, [facility] [place] [facility] [address] [id number] [place] [address]- 0901 Nov, [facility] [place] [facility] [address] [id number] [place] [address]- 2324 Nov, [facility] [place] [facility] [address] [id number] [place] [address]- 0620 Nov, [facility] [place] [facility] [address] [id number] [place] [address]- 2084 Nov, [facility] [place] [facility] [address] [id number] [place] [address]- 5042 Nov, [facility] [place] [facility] [address] [id number] [place] [address] Nov, [facility] [place] [facility] [address] [id number] [place] [address] Nov, [facility] [place] [facility] [address] [id number] [place] [address] Oct, [facility] [place] [facility] [address] [id number] [place] [address] Oct, [facility] [place] [facility] [address] [id number] [place] [address] Oct, [facility] [place] [facility] [address] [id number] [place] [address] 30 Oct, 2013 [facility] [place] [facility] [address] [id number] [place] [address] Oct, [facility] [place] [facility] [address] [id number] [place] [address] Oct, [facility] [place] [facility] [address] [id number] [place] [address] Oct, [facility] [place] [facility] [address] [id number] [place] [address] Oct, [facility] [place] [facility] [address] [id number] [place] [address] Oct, [facility] [place] [facility] [address] [id number] [place] [address] Oct, [facility] [place] [facility] [address] [id number] [place] [address] Oct, [facility] [place] [facility] [address] [id number] [place] [address] Oct, [facility] [place] [facility] [address] [id number] [place] [address] Oct, [facility] [place] [facility] [address] [facility] [id number] [place] [address] 18 Oct, 2013 [facility] [place] [facility] [address] [id number] [place] [address]- [address] 17 Oct, 2013 [facility] [place] [facility] [address] [id number] [place] [address]- [address] 17 Oct, 2013 [facility] [place] [facility] [address] [id number] [place] [address]- [address] 16 Oct, 2013 [facility] [place] [facility] [address] [id number] [place] [address]- [address] 16 Oct, 2013 [facility] [place] [facility] [address] [id number] [place] [address] Oct, [facility] [place] [facility] [address] [id number] [place] [address]- [address] Oct, [facility] [place] [facility] [address] [id number] [place] [address]- [address] Oct, [facility] [place] [facility] [address] [id number] [place] [address] Oct, [facility] [place] [facility] [address] [id number] [place] [address] Oct, [facility] [place] [facility] [address] [id number] [place] [address]- [address] Oct, [facility] [place] [facility] [address] [id number] [place] [address] Oct, [facility] [place] [facility] [address] [id number] [place] [address] Oct, [facility] [place] [facility] [address] [id number] [place] [address] Oct, [facility] [place] [facility] [address] [id number] [place] [address] Oct, [facility] [place] [facility] [address] [id number] [place] [address] Oct, [facility] [place] [facility] [address] [id number] [place] [address] Oct, [facility] [place] [facility] [address] [id number] [place] [address] September, [facility] [place] [facility] [address] [id number] [place] [address] September, [facility] [place] [facility] [address] [id number] [place] [address] September, [facility] [place] [facility] [address] [id number] [place] [address] September, [facility] [place] [facility] [address] [id number] [place] [address] September, [facility] [place] [facility] [address] [id number] [place] [address] September, [facility] [place] [facility] [address] [id number] [place] [address] September, [facility] [place] [facility] [address] [id number] [place] [address] September, [facility] [place] [facility] [address] [id number] [place] [address] 7501 September, [facility] [place] [facility] [address] [id number] [place] [address] 9758 September, [facility] [place] [facility] [address] [id number] [place] [address] 0478 September, [facility] [place] [facility] [address] [id number] [place] [address] 5991 September, [facility] [place] [facility] [address] [id number] [place] [address] 6115 September, [facility] [place] [facility] [address] [id number] [place] [address] 8724 September, [facility] [place] [facility] [address] [id number] [place] [address]- 2506 September, [facility] [place] [facility] [address] [id number] [place] [address] 6696 September, [facility] [place] [facility] [address] [id number] [place] [address]- 7588 September, [facility] [place] [facility] [address] [id number] [place] [address] 4063 September, [facility] [place] [facility] [address] [id number] [place] [address]- 9523 Aug, [facility] [place] [facility] [address] [id number] [place] [address]- 9225 Aug, [facility] [place] [facility] [address] [id number] [place] [address]- 2882 Aug, [facility] [place] [facility] [address] [id number] [place] [address]- 7099 Aug, [facility] [place] [facility] [address] [id number] [place] [address] Aug, [facility] [place] [facility] [address] [id number] [place] [address]- 1955 Aug, [facility] [place] [facility] [address] [id number] [place] [address]- 4085 Jul, [facility] [place] [facility] [address] [id number] [place] [address]- 1678 Jul, [facility] [place] [facility] [address] [id number] [place] [address]- 8895 Jul, [facility] [place] [facility] [address] [id number] [place] [address]- 8963 Jul, [facility] [place] [facility] [address] [id number] [place] [address]- 1016 Jun, [facility] [place] [facility] [address] [id number] [place] [address]- 3346 Jun, [facility] [place] [facility] [address] [id number] [place] [address]- 4520 Jun, [facility] [place] [facility] [address] [id number] [place] [address]- 7711 Jun, [facility] [place] [facility] [address] [id number] [place] [address]- 8528 Mar, [facility] [place] [facility] [address] [id number] [place] [address]- 8157 14 Mar, 2013 [facility] [place] [facility] [address] [id number] [place] [address]- 4900 13 Mar, 2013 [facility] [place] [facility] [address] [id number] [place] [address]- 3252 Mar, [facility] [place] [facility] [address] [id number] [place] [address]- 3256 Feb, [facility] [place] [facility] [address] [id number] [place] [address]- 7068 Feb, [facility] [place] [facility] [address] [id number] [place] [address] Feb, [facility] [place] [facility] [address] [id number] [place] [address]- 8942 Jan, [facility] [place] [facility] [address] [id number] [place] [address]- 7670 Jan, [facility] [place] [facility] [address] [id number] [place] [address]- 9943 Jan, [facility] [place] [facility] [address] [id number] [place] [address]- 4903 Jan, [facility] [place] [facility] [address] [id number] [place] [address]- 1141 Dec, [facility] [place] [facility] [address] [id number] [place] [address]- 9779 Dec, [facility] [place] [facility] [address] [id number] [place] [address]- 6712 Dec, [facility] [place] [facility] [address] [id number], [place] [address]- 7932 Dec, [facility] [place] [facility] [address] [id number], [place] [address]- 6808 Nov, [facility] [place] [facility] [address] [id number] [place] [address]- 5563 Nov, [facility] [place] [facility] [address] [id number], [place] [address]- 6525 Nov, [facility] [place] [facility] [address] [id number] [place] [address]- 8513 Nov, [facility] [place] [facility] [address] [id number] [place] [address]- 8814 Nov, [facility] [address] [id number] [place] [address]- 5439 Nov, [facility] [place] [facility] [address] [id number] [place] [address]- 5932 Oct, [facility] [address] [id number] [place] [address]- 8391 Oct, [facility] [place] [facility] [address] [id number] [place] [address]- 4605 Oct, [facility] [place] [facility] [address] [id number] [place] [address]- 1437 Oct, [facility] [place] [facility] [address] [id number] [place] [address]- 9364 17 Oct, 2012 [facility] [address] [id number] [place] [address]- 7009 16 Oct, 2012 [facility] [place] [facility] [address] [id number] [place] [address]- 0525 14 Oct, 2012 [facility] [place] [facility] [address] [id number] [place] [address]- 3624 Oct, [facility] [place] [facility] [address] [id number] [place] [address]- 3845 Oct, [facility] [place] [facility] [address] [id number] [place] [address]- 1822 Oct, [facility] [place] [facility] [address] [id number] [place] [address]- 4934 September, [facility] [place] [facility] [address] [id number] [place] [address]- 5363 September, [facility] [place] [facility] [address] [id number] [place] [address]- 7556 September, [facility] [place] [facility] [address] [id number] [place] [address]- 8086 Aug, [facility] [place] [facility] [address] [id number] [place] [address]- 7083 Aug, [facility] [address] [id number] [place] [address]- 3144 Aug, [facility] [address] [id number] [place] [address]- 2142 Aug, [facility] [address] [id number] [place] [address]- 2844 Jul, [facility] [address] [id number] [place] [address]- 0640 Jul, [facility] [address] [id number] [place] [address]- 5325 Jul, [facility] [address] [id number] [place] [address]- 8476 Jul, [facility] [address] [id number] [place] [address]- 0189 Jul, [facility] [address] [id number] [place] [address]- 8201 Jul, [facility] [address] [id number] [place] [address]- 0925 May, [facility] [address] [id number] [place] [address]- 5511 May, [facility] [address] [id number] [place] [address]- 2913 May, [facility] [address] [id number] [place] [address]- 5538 May, [facility] [address] [id number] [place] [address]- 2567 May, [facility] [address] [id number] [place] [address]- 1278 May, [facility] [address] [id number] [place] [address]- 4741 May, [facility] [place] [facility] [address] [id number] [place] [address]- 1483 18 May, 2012 [facility] [place] [facility] [address] [id number] [place] [address] May, [facility] [place] [facility] [address] [id number] [place] [address]- 0368 17 May, 2012 [facility] [place] [facility] [address] [id number] [place] [address]- 1959 16 May, 2012 [facility] [place] [facility] [address] [id number] [place] [address]- 0648 Apr, [facility] [place] [facility] [address] [id number] [place] [address]- 3268 Apr, [facility] [place] [facility] [address] [id number] [place] [address]- 1622 Apr, [facility] [place] [facility] [address] [id number] [place] [address]- 1859 Apr, [facility] [place] [facility] [address] [id number] [place] [address]- 2093 Apr, [facility] [place] [facility] [address] [id number] [place] [address]- 6616 Apr, [facility] [place] [facility] [address] [id number] [place] [address]- 7239 Mar, [facility] [place] [facility] [address] [id number] [place] [address]- 4802 Mar, [facility] [place] [facility] [address] [id number] [place] [address]- 3420 Mar, [facility] [place] [facility] [address] [id number] [place] [address]- 3396 Mar, [facility] [place] [facility] [address] [id number] [place] [address]- 8365 Mar, [facility] [place] [facility] [address] [id number] [place] [address]- 2071 08 Mar, 2012 [facility] [place] [facility] [address] [id number] [place] [address]- 8491 06 Mar, 2012 [facility] [place] [facility] [address] [id number] [place] [address]- 8008 Mar, [facility] [place] [facility] [address] [id number] [place] [address]- 6488 Feb, [facility] [place] [facility] [address] [id number] [place] [address]- 7832 23 Feb, 2012 [facility] [place] [facility] [address] [id number] [place] [address]- 5499 16 Feb, 2012 [facility] [place] [facility] [address] [id number] [place] [address]- 2705 15 Feb, 2012 [facility] [place] [facility] [address] [id number] [place] [address]- 7295 15 Feb, 2012 [facility] [place] [facility] [address] [id number] [place] [address]- 9921 13 Feb, 2012 [facility] [place] [facility] [address] [id number] [place] [address]- 1782 Feb, [facility] [place] [facility] [address] [id number] [place] [address]- 5376 Feb, [facility] [place] [facility] [address] [id number] [place] [address]- 6891 Feb, [facility] [place] [facility] [address] [id number] [place] [address]- 8490 Feb, [facility] [place] [facility] [address] [id number] [place] [address]386 Feb, [facility] [place] [facility] [address] [id number] [place] [address]- 0343 Feb, [facility] [place] [facility] [address] [id number] [place] [address]- 4870 Feb, [facility] [place] [facility] [address] [id number] [place] [address]- 8652 Feb, [facility] [place] [facility] [address] [id number] [place] [address]- 6099 Feb, [facility] [place] [facility] [address] [id number] [place] [address]- 5475 Feb, [facility] [place] [facility] [address] [id number] [place] [address]- 5302 Feb, [facility] [place] [facility] [address] [id number] [place] [address]- 9836 04 Feb, 2012 [facility] [place] [facility] [address] [id number] [place] [address]- 5928 19 Jan, 2012 [facility] [place] [facility] [address] [id number] [place] [address]- 8800 13 Jan, 2012 [facility] [place] [facility] [address] [id number] [place] [address]- 4351 11 Jan, 2012 [facility] [place] [facility] [address] [id number] [place] [address]- 7803 10 Jan, 2012 [facility] [place] [facility] [address] [id number] [place] [address]- 6822 05 Jan, 2012 [facility] [place] [facility] [address] [id number], [place] [address]- 8008 Dec, [facility] [place] [facility] [address] [id number], [place] [address]- 8295 Dec, [facility] [place] [facility] [address] [id number] [place] [address]- 2665 Dec, [facility] [place] [facility] [address] [id number] [place] [address]- 2249 Dec, [facility] [place] [facility] [address] [id number], [place] [address]- 0743 Dec, [facility] [place] [facility] [address] [id number], [place] [address]- 3018 Dec, [facility] [address] [id number] [place] [address]- 2202 Nov, [facility] [place] [facility] [address] [id number] [place] [address]- 1020 Nov, [facility] [place] [facility] [address] [id number] [place] [address]- 4176 Nov, [facility] [place] [facility] [address] [id number] [place] [address]- 8836 Nov, [facility] [place] [facility] [address] [id number] [place] [address]- 6881 Nov, [facility] [place] [facility] [address] [id number] [place] [address]- 0862 Oct, [facility] [address] [id number] [place] [address]- 2056 Oct, [facility] [place] [facility] [address] [id number] [place] [address]- 0194 Oct, [facility] [place] [facility] [address] [id number] [place] [address]- 6480 September, [facility] [place] [facility] [address] [id number] [place] [address]- 9579 September, [facility] [address] [id number] [place] [address]- 1278 September, [facility] [place] [facility] [address] [id number] [place] [address]- 7156 September, [facility] [place] [facility] [address] [id number] [place] [address]- 2998 September, [facility] [place] [facility] [address] [facility] [id number] [place] [address]- 2256 September, [facility] [place] [facility] [address] [id number] [place] [address]- 1530 Aug, [facility] [place] [facility] [address] [id number] [place] [address]- 0562 Aug, [facility] [address] [id number] [place] [address]- 2148 Aug, [facility] [place] [facility] [address] [id number] [place] [address]- 1896 Jun, [facility] [place] [facility] [address] [id number] [place] [address]- 9966 Jun, [facility] [place] [facility] [address] [id number] [place] [address]- 7526 Jun, [facility] [place] [facility] [address] [id number] [place] [address]- 4960 Jun, [facility] [address] [id number] [place] [address]- 4034 May, [facility] [address] [id number] [place] [address]- 7286 May, [facility] [address] [id number] [place] [address]- 0575 May, [facility] [address] [id number] [place] [address]- 9850 May, [facility] [address] [id number] [place] [address]- 7038 May, [facility] [address] [id number] [place] [address]- 8258 Apr, [facility] [place] [facility] [address] [id number] [place] [address]- 2823 Apr, [facility] [place] [facility] [address] [id number] [place] [address]- 0161 Apr, [facility] [place] [facility] [address] [id number] [place] [address]- 3398 Apr, [facility] [place] [facility] [address] [id number] [place] [address]- 3818 Apr, [facility] [place] [facility] [address] [id number] [place] 7003 Apr, [facility] [place] [facility] [address] [id number] [place] [address]- 2134 Apr, [facility] [place] [facility] [address] [id number] [place] 8840 Mar, [facility] [place] [facility] [address] [id number] [place] 4524 Mar, [facility] [place] [facility] [address] [id number] [place] [address]- 0929 Mar, [facility] [place] [facility] [address] [id number] [place] [address]- 1688 Feb, [facility] [place] [facility] [address] [id number] [place] [address]- 0947 Feb, [facility] [place] [facility] [address] [id number] [place] [address]- 3049 Feb, [facility] [place] [facility] [address] [id number] [place] [address]- 3957 Feb, [facility] [place] [facility] [address] [id number] [place] [address]- 0088 Feb, [facility] [place] [facility] [address] [id number], [place] [address]- 9702 Feb, [facility] [place] [facility] [address] [id number], [place] [address]- 1865 Jan, [facility] [place] [facility] [address] [id number] [place] 1680 Jan, [facility] [place] [facility] [address] [id number] 4573 September, [facility] [place] [facility] [address] [id number] [place] [address]- 8803 Jun, [facility] [place] [facility] [address] [facility] [id number], [place] [address]- 2213 Apr, [facility] [address] [facility] [id number], [place] [address]- 4980 Apr, [facility] [address] [facility] [id number], [place] [address]- 7706 Apr, [facility] [address] [facility] [id number][place]25[place] 4713 Apr, [facility] [address] [facility] [id number], [place] [address]- 3703 Apr, [facility] [address] [facility] [id number] [place] [address] 821506- 2555 Mar, [facility] [address] [facility] [id number], [place] [address]- 1995 Mar, [facility] [id number] [place] [address] 767[address]- 2666 Mar, [facility] [address] [facility] [id number], [place] [address]- 6952 Mar, [facility] [id number], [place] [address]- 6957 Feb, [facility] [address] [id number], [place] [address]- 4083 15 Jan, 2010 [facility] [id number], [place] [address]- 3998 Mar, [facility] [address] [facility] [id number], [place] [address]- 1839 15 Jan, 2009 [facility] [id number] 29[address] Oct, [facility] [id number] [address] Apr, IMMUNIZATIONS No Known Immunizations SOCIAL HISTORY Never Assessed REASON FOR VISIT Right ear pain w clear sticky drainage since yesterday, pain is described as throbbing and rated a 6. Pt states she wiped blood out of her ear, she has been sticking her finger in her ear. Left ear pain started today. Pain in left wrist described as "sharp" and rated at 5. No self-treatment for her ear, she has taken Ibuprofen (yesterday evening) for her wrist as well as wrapped it. [email or web address] OF CARE Activity Details Follow Up if not improving with PCP or reg follow up Reason: VITAL SIGNS Height 66 in 2018-02-23 Weight 261 lbs 2018-02-23 Temperature 97.1 degrees Fahrenheit 2018-02-23 Heart Rate 84 bpm 2018-02-23 Respiratory Rate 20 2018-02-23 BMI 42.12 kg/m2 2018-02-23 Blood pressure systolic 142 mmHg 2018-02-23 Blood pressure diastolic 98 mmHg 2018-02-23 MEDICATIONS Medication Instructions Dosage Frequency Start Date End Date Duration Status Ciprofloxacin HCl 0.3 % Otic 2 times a day 3 drops into affected eye 12h Feb, Feb, 7 days Active Omeprazole 20 mg Orally Once a day 1 capsule 24h Active Cefdinir 300 MG Orally 2 times a day 1 capsule 12h Feb, Feb, 7 days Active Flexeril 10 mg Orally 2 times a day s needed 1 tablet 28 Active Actos 15 MG Orally Once a day 1 tablet 24h Active Lisinopril 20 mg Orally Once a day take 1/2 tab once daily 24h Active RESULTS No Results PROCEDURES No Known procedures [...]
--- OUTSIDE RECORDS SUMMARY | 2018-03-22 21:35 | XMS REPORT ---
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 Name Role Phone KENYA VILLARREALTA Unavailable PROBLEMS Type Condition ICD9-CM Code GSL02-DU Code Onset Dates Condition Status SNOMED Code Problem Hypertriglyceridemia E78.1 Active 938756470 Problem Essential hypertension I10 Active 95581671 Problem Irritable bowel syndrome without diarrhea K58.9 Active 30307080 Problem Morbid (severe) obesity due to excess calories E66.01 Active 670245552 Problem Body mass index (BMI) of 40.0-44.9 in adult Z68.41 Active 351647345 Problem Anxiety F41.9 Active 49311363 Problem Bilateral low back pain without sciatica M54.5 Active 990802185 Problem Alternating constipation and diarrhea R19.8 Active 540553414 Problem Pre-diabetes R73.03 Active 162876400 ALLERGIES Substance Reaction Event Type Date Status Penicillin V Potassium anaphylaxis Drug Allergy Jan, Active surgical tape "tears skin off" Non Drug Allergy Jan, Active ENCOUNTERS Encounter Location Date Diagnosis [facility] [id number] [place] [address] 08301- 0439 Jan, [facility] [id number] [place] [address] 01838- 2307 Jan, [facility] [id number] [place] [address] 92077- 0367 Jan, BMI 40.0-44.9, adult Z68.41 ; Pre-diabetes R73.03 ; Essential hypertension I10 ; Morbid (severe) obesity due to excess calories E66.01 ; Bilateral low back pain without sciatica M54.[address] [facility] [id number] [place] [address] 84583- 2212 Jan, History of UTI Z87.440 ; Well woman exam with routine gynecological exam Z01.419 ; Screening for breast cancer Z12.31 ; Candidal vaginitis B37.3 and BMI 40.0-44.9, adult Z68.41 [facility] [address] [facility] [id number], [place] [address] 05 Jan, 2018 [facility] [address] [facility] [id number], [place] [address] Jan, Dysuria R30.0 ; Acute cystitis with hematuria N30.01 ; Yeast infection B37.9 and BMI 40.0-44.9, adult Z68.41 [address] [facility] [id number], [place] [address] 8[address] Dec, [address] [address] [facility] [id number], [place] [address]- 9772 Dec, [address] [id number] [address] 3216 Nov, History of UTI Z87.440 [facility] [address] [facility] [id number], [place] [address] 5924 Nov, UTI symptoms R39.9 ; Acute nasopharyngitis J00 and BMI 40.0- 44.9, adult Z68.41 [address] [address] [id number] [address] 0634 Nov, [address] [address] [facility] [id number], [place] [address] 6394 Nov, Yeast infection involving the vagina and surrounding area B37.3 [address] [address] [facility] [id number], [place] [address] 2208 Nov, Yeast infection involving the vagina and surrounding area B37.3 [place] [address] [facility] [id number], [place] [address]- 0850 Nov, Yeast infection involving the vagina and surrounding area B37.3 ; Body mass index (BMI) of 40.0-44.9 in adult Z68.41 and Morbid (severe) obesity due to excess calories E66.01 [address] [address] [address]- 5726 14 Oct, 2017 Abscess of groin, left L02.214 and Pre-diabetes R73.03 [facility] [address] 99689- 5166 September, Pre-diabetes R73.03 [address] [address] 27547- 0083 Aug, [place] [address] 00159- 9982 Jul, Bilateral low back pain without sciatica M54.5 [place] [address] 63741- 1986 Jun, [address] [address] 63859- 6463 Jun, [place] [address] 98514- 2890 Jun, [place] [address] 91317- 4734 May, [facility] [address] 24883- 4490 May, Ingrown left greater toenail L60.0 [facility] [address] 32731- 6235 May, [facility] [address] [address] -[address] May, Influenza A J10.1 ; Fever R50.9 and Body aches R52 [address] [address] 28337- 0998 Apr, [address] [address] 19751- 5349 Apr, [place] [id number] [place] [address] 53341- 8007 Apr, [address] [address] 00085- 6353 Apr, Abscess L02.91 and Obesity (BMI 30-39.9) E66.[address] [address]- 5505 Apr, [address] [address] 33696- 8082 Apr, [address] 97548- 8801 Mar, Acute non-recurrent maxillary sinusitis J01.[address] 42575- 7782 Feb, Heartburn R12 [address] 07921- 3831 Feb, Heartburn R12 ; Low back pain M54.5 ; Essential hypertension I10 ; Bilateral low back pain without sciatica M54.5 ; Anxiety F41.9 ; Pre-diabetes R73.03 ; Other obesity due to excess calories E66.09 ; Alternating constipation and diarrhea R19.8 ; Dyspepsia R10.13 ; Generalized abdominal pain R10.84 ; Rhinosinusitis J32.9 and Boil L02.92 [place] [id number] [place] [address] 48440- 3055 Jan, Heartburn R12 [place] [id number] [place] [address] 45217- 9159 Jan, [address] 06384- 4066 Jan, [place] [id number] [place] [address] 40382- 4226 Jan, Acute seasonal allergic rhinitis due to pollen J30.1 and Irritable bowel syndrome without diarrhea K58.9 [address] [address] 76584- 6932 Dec, Low back pain M54.5 and Acute cystitis with hematuria N30.01 [place] [address] 04263- 0629 Dec, Low back pain M54.5 and Acute cystitis with hematuria N30.01 [place] [address] 55169- 5827 Dec, Heartburn R12 ; Essential hypertension I10 ; Acute non- recurrent maxillary sinusitis J01.00 ; Bilateral low back pain without sciatica M54.5 ; Anxiety F41.9 ; Pre-diabetes R73.03 ; Pain in right foot M79.671 ; Pain in left foot M79.672 ; Other obesity due to excess calories E66.09 and Acute cystitis with hematuria N30.01 [place] [address] 46062- 8841 Dec, Bilateral low back pain without sciatica M54.5 ; Acute non- recurrent maxillary sinusitis J01.00 and Pre-diabetes R73.03 [place] [address] 70751- 0943 Oct, [facility] [id number] [place] [address] 22350 -2755 Aug, [facility] [address] [address] Aug, Acute vaginitis N76.0 ; Urinary frequency R35.0 ; Screen for STD (sexually transmitted disease) Z11.3 and Abscess L02.[address] 23809- 5568 Aug, Plantar wart of right foot B07.[address] 89327- 5549 Jul, Plantar wart of right foot B07.0 [facility] [id number] [place] [address] 02873- 1418 Jun, [place] [address] 07737- 1879 Jun, Heartburn R12 ; Essential hypertension I10 ; Anxiety F41.9 ; Folliculitis L73.9 and Plantar wart of right foot B07.0 [place] [address] 79612- 2625 Jun, [facility] [address] 63385 -0491 May, Low back pain M54.5 and Other chronic pain G89.29 [place] [address] 84633- 5313 May, [place] [address] 30305- 6508 May, [place] [id number] [place] [address] 81434- 8838 May, Heartburn R12 ; Bilateral low back pain without sciatica M54.5 ; Essential hypertension I10 ; Long-term use of high-risk medication Z79.899 ; Anxiety F41.9 ; Impacted cerumen of right ear H61.21 ; Folliculitis L73.9 ; High risk bisexual behavior Z72.53 and General medical exam Z00.00 [place] [id number] [place] [address] 39276- 5811 May, [place] [id number] [place] [address] 28724- 8392 May, [place] [id number] [place] [address] 43929- 9887 Mar, Acute nasopharyngitis J00 ; Acute intractable tension-type headache G44.201 and Cough R05 [place] [address] 02746- 7203 Jan, [facility] [address], [place] [address] 29 Jan, 2016 Abscess L02.91 [facility] [address], [place] [address] 10 Jan, 2016 Urinary urgency R39.15 and Urinary tract infection without hematuria, site unspecified N39.0 [facility] [id number] [place] [address] 73070- 4324 Jan, [facility] [id number] [place] [address] 27675- 1241 Jan, [facility] [id number] [place] [address] 57417- 2319 Dec, [facility] [id number] [place] [address] 77884- 4197 Dec, Dermatofibroma D23.9 [facility] [id number] [place] [address] 72294- 2880 September, [facility] [id number] [place] [address] 42380- 4235 Aug, [facility] [id number] [place] [address] 99558- 7860 Aug, Pain in left knee M25.562 ; Heartburn R12 ; Bilateral low back pain without sciatica M54.5 ; Essential hypertension I10 ; Ingrown left big toenail L60.0 ; Chronic pain G89.29 ; Irritable bowel syndrome with constipation K58.9 [address] Skin infection [address].9 [facility] [address] [place] [address] 13551- 7743 Aug, [facility] [id number] [place] [address] 68366- 9817 Jul, [facility] [id number] [place] [address] 98087- 9696 Jun, [facility] [id number] [place] [address] 13420- 7670 Jun, [facility] [id number] [place] [address] 51948- 8038 Jun, [facility] [id number] [place] [address] 06855- 2041 Jun, [facility] [id number] [place] [address] 69749- 5374 Jun, Upper respiratory infection J06.9 ; Bilateral low back pain without sciatica M54.[address] [facility] [id number] [place] [address] 59216- 0427 May, [facility] [id number] [place] [address] 58267- 5537 Apr, Bilateral low back pain without sciatica M54.5 ; Upper respiratory infection J06.9 and Yeast dermatitis B37.2 [facility] [id number] [place] [address] 32138- 8683 Apr, [facility] [id number] [place] [address] 74449- 1006 Apr, [facility] [id number] [place] [address] 51883- 4127 Feb, [facility] [id number] [place] [address] 89265- 6725 Feb, [facility] [id number] [place] [address] 22791- 5536 Feb, [facility] [id number] [place] [address] 84222- 8353 Feb, Essential hypertension I10 ; Heartburn R12 ; Irritable bowel syndrome without diarrhea K58.9 ; Bilateral low back pain, with sciatica presence unspecified M54.5 and Upper respiratory infection J06.9 [facility] [id number] [place] [address] 09349- 5610 Feb, [facility] [id number] [place] [address] 41065- 1958 Feb, Generalized anxiety disorder F41.[address] [facility] [id number] [place] [address] 356981- 7930 Jan, [place] [id number] [place] [address] 925829- 2270 Jan, Back pain 724.5 ; Upper respiratory infection 465.9 ; HTN ( hypertension) 401.9 and Dyspepsia 536.8 [address] [id number] [place] [address] 40587- 2666 Dec, [place] [id number] [place] [address] 21954- 8126 Nov, Back pain 724.5 ; Abdominal pain, bilateral lower quadrant 789.03 ; GERD (gastroesophageal reflux disease) 530.81 ; Upper respiratory infection 465.9 ; Dysuria 788.1 and HTN (hypertension) 401.9 [address] [id number] [place] [address] 26580- 9728 Nov, [place] [id number] [place] [address] 29634- 0773 Nov, [place] [id number] [place] [address] 10846- 6856 Nov, [facility] [id number] [place] [address] 01550- 9335 Nov, Cough 786.2 [address] [id number] [place] [address] 72581- 5698 Nov, Cough 786.2 [address] [id number] [place] [address] 13669- 5393 Oct, Unspecified episodic mood disorder 296.90 and Anxiety disorder, unspecified 300.00 [place] [id number] [place] [address] 76515- 3505 Oct, Abdominal pain, left upper quadrant 789.02 ; Essential hypertension, benign 401.1 ; Irritable bowel syndrome 564.1 ; Abscess 682.9 ; Heartburn 787.1 ; Acute sinusitis, unspecified 461.9 ; Muscle spasm of back 724.8 ; Cough 786.2 [address] Skin tag [address]9 [facility] [id number] [place] [address] 31202- 2972 September, [facility] [id number] [place] [address] 46260246- 1562 September, [facility] [id number] [place] [address] 45513- 3704 September, [facility] [id number] [place] [address] 58487- 5586 Aug, [facility] [id number] [place] [address] 57401- 6897 Aug, [facility] [id number] [address]- 0748 Jul, [facility] [id number] [place] [address] 70415- 3522 Jul, [facility] [address], [place] [address]- 9156 Jul, [facility] [address], [place] [address]- 0766 Jul, [facility] [address], [place] [address]- 1229 Jul, [facility] [id number] [place] [address] 157597- 0748 Jul, [facility] [address] [address]- 7303 Jul, [facility] [address]- 1454 Jul, [facility] [place] [facility] [address] [id number] [place] [address]- 1143 Jul, [facility] [place] [facility] [address] [id number] [place] [address]- 7061 Jul, [facility] [place] [facility] [address] [id number] [place] [address]- 6263 Jul, [facility] [place] [facility] [address] [id number] [place] [address]- 7579 Jul, [facility] [place] [facility] [address] [id number] [place] [address]- 0179 Jul, [facility] [place] [facility] [address] [id number] [place] [address]- 1677 Jul, [facility] [place] [facility] [address] [id number] [place] [address]- 1398 Jul, [facility] [place] [facility] [address] [id number] [place] [address]- 6404 Jul, [facility] [place] [facility] [address] [id number] [place] [address]- 5570 Jul, [facility] [place] [facility] [address] [id number] [place] [address]- 1642 Jun, [facility] [place] [facility] [address] [id number] [place] [address]- 2444 Jun, [facility] [place] [facility] [address] [id number], [place] [address]- 7156 Jun, 2014 [facility] [place] [facility] [address] [id number] [place] [address]- 3792 Jun, [facility] [place] [facility] [address] [id number] [place] [address]- 4329 Jun, 2014 [facility] [place] [facility] [address] [id number] [place] [address]- 2517 Jun, 2014 [facility] [place] [facility] [address] [id number] [place] [address]- 8493 Jun, [facility] [address] [id number] [place] 9406 Jun, [facility] [address] [id number] [place] [address]- 0298 Apr, [facility] [address] [id number] [place] [address]- 1283 Apr, [facility] [address] [id number] [place] [address]- 5928 Apr, [facility] [address] [id number] [place] [address]- 5084 Apr, [facility] [address] [id number] [place] [address]- 3855 Apr, [facility] [address] [id number] [place] [address]- 1761 Apr, [facility] [address] [id number] [place] [address]- 4418 Apr, [facility] [address] [id number] [place] [address]- 9138 Apr, [facility] [address] [id number] [place] [address]- 7046 Apr, [facility] [place] [facility] [address] [id number] [place] [address]- 6191 Apr, [facility] [place] [facility] [address] [id number] [place] [address]- 3498 Apr, [facility] [place] [facility] [address] [id number] [place] [address]- 8157 Apr, [facility] [place] [facility] [address] [id number] [place] [address]- 3764 Apr, [facility] [place] [facility] [address] [id number] [place] [address]- 5475 Apr, [facility] [place] [facility] [address] [id number] [place] 4492 Apr, [facility] [place] [facility] [address] [id number] [place] [address]- 0124 Feb, [facility] [place] [facility] [address] [id number] [place] [address]- 1964 Feb, [facility] [place] [facility] [address] [id number] [place] [address]- 2000 Feb, [facility] [place] [facility] [address] [id number] [place] 5225 Feb, [facility] [place] [facility] [address] [id number] [place] [address]- 4594 Feb, [facility] [place] [facility] [address] [id number] [place] [address]- 1687 Feb, [facility] [place] [facility] [address] [id number] [place] [address]- 9494 Jan, [facility] [place] [facility] [address] [id number] [place] [address]- 8921 Jan, [facility] [place] [facility] [address] [id number] [place] [address]- 0476 Jan, [facility] [place] [facility] [address] [id number] [place] [address]- 4687 Jan, [facility] [place] [facility] [address] [id number], [place] [address]- 2461 Jan, 2013 [facility] [place] [facility] [address] [id number] [place] [address]- 5029 Jan, [facility] [place] [facility] [address] [id number] [place] [address]- 0016 Dec, [facility] [place] [facility] [address] [id number] [place] 3401 Dec, [facility] [place] [facility] [address] [id number], [place] [address]- 6162 Dec, [facility] [place] [facility] [address] [id number] [place] [address]- 8318 Dec, [facility] [place] [facility] [address] [id number] [place] [address]- 7630 Nov, [facility] [place] [facility] [address] [id number] [place] [address]- 2868 Nov, [facility] [place] [facility] [address] [id number] [place] [address]- 7398 Nov, [facility] [place] [facility] [address] [id number] [place] [address]- 0343 Nov, [facility] [place] [facility] [address] [id number] [place] [address] Nov, [facility] [place] [facility] [address] [id number] [place] [address] Nov, [facility] [place] [facility] [address] [id number] [place] [address] Nov, [facility] [place] [facility] [address] [id number] [place] [address] Nov, [facility] [place] [facility] [address] [id number] [place] [address] Oct, [facility] [place] [facility] [address] [id number] [place] [address] Oct, [facility] [place] [facility] [address] [id number] [place] [address] Oct, [facility] [place] [facility] [address] [id number] [place] [address] Oct, [facility] [place] [facility] [address] [id number] [place] [address] Oct, [facility] [place] [facility] [address] [id number] [place] [address] Oct, [facility] [place] [facility] [address] [id number] [place] [address] 26 Oct, 2013 [facility] [place] [facility] [address] [id number] [place] [address] Oct, [facility] [place] [facility] [address] [id number] [place] [address] Oct, [facility] [place] [facility] [address] [id number] [place] [address] Oct, [facility] [place] [facility] [address] [id number] [place] [address] Oct, [facility] [place] [facility] [address] [id number] [place] [address] Oct, [facility] [place] [facility] [address] [id number] [place] [address] 18 Oct, 2013 [facility] [place] [facility] [address] [id number] [place] [address] 18 Oct, 2013 [facility] [place] [facility] [address] [id number] [place] [address] 17 Oct, 2013 [facility] [place] [facility] [address] [id number] [place] [address]- [address] 17 Oct, 2013 [facility] [place] [facility] [address] [id number] [place] [address]- [address] 16 Oct, 2013 [facility] [place] [facility] [address] [id number] [place] [address] 16 Oct, 2013 [facility] [place] [facility] [address] [id number] [place] [address] 13 Oct, 2013 [facility] [place] [facility] [address] [id number] [place] [address] 13 Oct, 2013 [facility] [place] [facility] [address] [id number] [place] [address]- [address] 11 Oct, 2013 [facility] [place] [facility] [address] [id number] [place] [address]- [address] Oct, [facility] [place] [facility] [address] [id number] [place] [address] Oct, [facility] [place] [facility] [address] [id number] [place] [address] 47[address] Oct, [facility] [place] [facility] [address] [id number] [place] [address] Oct, [facility] [place] [facility] [address] [id number] [place] [address] Oct, [facility] [place] [facility] [address] [id number] [place] [address]- [address] Oct, [facility] [place] [facility] [address] [id number] [place] [address] Oct, [facility] [place] [facility] [address] [id number] [place] [address] Oct, [facility] [place] [facility] [address] [id number] [place] [address]- [address] Oct, [facility] [place] [facility] [address] [id number] [place] [address] September, [facility] [place] [facility] [address] [id number] [place] [address] September, [facility] [place] [facility] [address] [id number] [place] [address] September, [facility] [place] [facility] [address] [id number] [place] [address] September, [facility] [place] [facility] [address] [id number] [place] [address] September, [facility] [place] [facility] [address] [id number] [place] [address]- [address] September, [facility] [place] [facility] [address] [id number] [place] [address] September, [facility] [place] [facility] [address] [id number] [place] [address] September, [facility] [address] [id number] [place] [address] September, [facility] [place] [facility] [address] [id number] [place] [address] 59[address] September, [facility] [place] [facility] [address] [id number] [place] [address] 4434 September, [facility] [place] [facility] [address] [id number] [place] [address] 0238 September, [facility] [place] [facility] [address] [id number] [place] [address]- 7025 September, [facility] [place] [facility] [address] [id number] [place] [address] 9938 September, [facility] [address] [id number] [place] [address] 8[address] September, [facility] [place] [facility] [address] [id number] [place] [address] 7973 September, [facility] [place] [facility] [address] [id number] [place] [address]- 7139 September, [facility] [place] [facility] [address] [id number] [place] [address] 9959 September, [facility] [place] [facility] [address] [id number] [place] [address] 2813 Aug, [facility] [place] [facility] [address] [id number] [place] [address]- 3422 Aug, [facility] [place] [facility] [address] [id number] [place] [address]- 9594 Aug, [facility] [place] [facility] [address] [id number] [place] [address]- 7845 Aug, [facility] [place] [facility] [address] [id number] [place] [address]- 7878 Aug, [facility] [place] [facility] [address] [id number] [place] [address]- 5751 Aug, [facility] [place] [facility] [address] [id number] [place] [address]- 8534 Jul, [facility] [place] [facility] [address] [id number] [place] [address] 6400 Jul, [facility] [place] [facility] [address] [id number] [place] [address]- 4314 Jul, [facility] [place] [facility] [address] [id number] [place] [address]- 2784 Jul, [facility] [place] [facility] [address] [id number] [place] [address]- 3811 Jun, [facility] [place] [facility] [address] [facility] [id number] [place] [address]- 2654 Jun, [facility] [place] [facility] [address] [id number] [place] [address]- 3721 Jun, [facility] [place] [facility] [address] [id number] [place] [address]- 4377 Jun, [facility] [place] [facility] [address] [facility] [id number] [place] [address]- 3794 Mar, [facility] [place] [facility] [address] [id number] [place] [address]- 3825 14 Mar, 2013 [facility] [place] [facility] [address] [id number], [place] [address] 13 Mar, 2013 [facility] [place] [facility] [address] [id number] [place] [address]- 7241 Mar, [facility] [place] [facility] [address] [id number] [place] [address]- 6542 Feb, [facility] [place] [facility] [address] [id number] [place] [address]- 6454 Feb, [facility] [place] [facility] [address] [id number] [place] [address]- 7609 Feb, [facility] [place] [facility] [address] [id number] [place] [address]- 7989 Jan, [facility] [place] [facility] [address] [id number] [place] [address]- 5731 Jan, [facility] [place] [facility] [address] [id number] [place] [address]- 9243 Jan, [facility] [place] [facility] [address] [id number] [place] [address]- 8503 Jan, [facility] [place] [facility] [address] [id number] [place] [address]- 2882 Dec, [facility] [place] [facility] [address] [id number] [place] [address]- 6473 Dec, [facility] [place] [facility] [address] [id number] [place] [address]- 9672 Dec, [facility] [place] [facility] [address] [id number] [place] [address]- 3807 Dec, [facility] [place] [facility] [address] [id number] [place] [address]- 4192 Nov, [facility] [place] [facility] [address] [id number] [place] [address]- 1668 Nov, [facility] [place] [facility] [address] [id number] [place] [address]- 2380 Nov, [facility] [place] [facility] [address] [id number] [place] [address]- 4530 Nov, [facility] [place] [facility] [address] [id number] [place] [address]- 5149 Nov, [facility] [place] [facility] [address] [id number] [place] [address]- 2100 Nov, [facility] [place] [facility] [address] [id number] [place] [address]- 4217 Oct, [facility] [place] [facility] [address] [id number] [place] [address]- 4476 27 Oct, 2012 [facility] [address] [id number] [place] [address]- 4165 25 Oct, 2012 [facility] [place] [facility] [address] [id number] [place] [address]- 6230 Oct, [facility] [address] [id number] [place] [address]- 7096 17 Oct, 2012 [facility] [place] [facility] [address] [id number] [place] [address]- 7826 16 Oct, 2012 [facility] [address] [id number] [place] [address]- 2145 14 Oct, 2012 [facility] [place] [facility] [address] [id number] [place] [address]- 0036 13 Oct, 2012 [facility] [place] [facility] [address] [id number] [place] [address]- 9151 Oct, [facility] [address] [id number] [place] [address]- 6377 07 Oct, 2012 [facility] [place] [facility] [address] [id number] [place] [address] 3948 September, [facility] [place] [facility] [address] [id number] [place] [address]- 9599 September, [facility] [place] [facility] [address] [id number] [place] [address]- 6114 September, [facility] [place] [facility] [address] [id number] [place] [address]- 0474 Aug, [facility] [place] [facility] [address] [id number] [place] [address]- 2117 Aug, [facility] [place] [facility] [address] [id number] [place] [address]- 3156 Aug, [facility] [place] [facility] [address] [id number] [place] [address]- 3501 Aug, [facility] [address] [id number] [place] [address]- 2782 30 Jul, 2012 [facility] [place] [facility] [address] [id number] [place] [address]- 6995 Jul, [facility] [place] [facility] [address] [id number] [place] [address]- 8929 Jul, [facility] [place] [facility] [address] [id number] [place] [address]- 7016 Jul, [facility] [address] [id number] [place] [address]- 4038 Jul, [facility] [place] [facility] [address] [id number] [place] [address]- 7686 Jul, [facility] [place] [facility] [address] [id number] [place] [address]- 7389 May, [facility] [place] [facility] [address] [id number] [place] [address]- 8247 May, [facility] [place] [facility] [address] [id number] [place] [address]- 6407 May, [facility] [place] [facility] [address] [id number] [place] [address]- 5994 May, [facility] [place] [facility] [address] [id number] [place] [address]- 7322 May, [facility] [place] [facility] [address] [id number] [place] [address]- 9749 May, [facility] [place] [facility] [address] [id number] [place] [address]- 6603 May, [facility] [place] [facility] [address] [id number] [place] [address]- 1349 18 May, 2012 [facility] [place] [facility] [address] [id number] [place] [address]- 9731 17 May, 2012 [facility] [place] [facility] [address] [id number] [place] [address]- 1317 17 May, 2012 [facility] [place] [facility] [address] [id number] [place] [address]- 0760 May, [facility] [place] [facility] [address] [id number] [place] [address]- 1962 Apr, [facility] [place] [facility] [address] [id number] [place] [address]- 7729 Apr, [facility] [place] [facility] [address] [id number] [place] [address]- 8214 Apr, [facility] [place] [facility] [address] [id number] [place] [address]- 1864 Apr, [facility] [place] [facility] [address] [id number] [place] [address]- 8649 Apr, [facility] [place] [facility] [address] [id number] [place] [address]- 2036 Apr, [facility] [place] [facility] [address] [id number] [place] [address]- 2432 Mar, [facility] [place] [facility] [address] [id number] [place] [address]- 6675 Mar, [facility] [place] [facility] [address] [id number] [place] [address]- 6577 Mar, [facility] [place] [facility] [address] [id number] [place] [address]- 7702 Mar, [facility] [place] [facility] [address] [id number] [place] [address]- 6544 Mar, [facility] [place] [facility] [address] [id number] [place] [address]- 3054 Mar, [facility] [place] [facility] [address] [id number] [place] [address]- 6745 Mar, [facility] [place] [facility] [address] [id number] [place] [address]- 2160 Mar, [facility] [place] [facility] [address] [id number] [place] [address]- 0030 23 Feb, 2011 [facility] [place] [facility] [address] [id number] [place] [address]- 0816 23 Feb, 2012 [facility] [place] [facility] [address] [id number] [place] [address]- 4886 16 Feb, 2012 [facility] [place] [facility] [address] [id number] [place] [address]- 3462 15 Feb, 2012 [facility] [place] [facility] [address] [id number] [place] [address]- 8370 15 Feb, 2012 [facility] [place] [facility] [address] [id number] [place] [address]- 2156 13 Feb, 2012 [facility] [place] [facility] [address] [id number] [place] [address]- 7799 Feb, [facility] [place] [facility] [address] [id number] [place] [address]- 4807 Feb, [facility] [place] [facility] [address] [id number] [place] [address]- 6310 Feb, [facility] [place] [facility] [address] [id number] [place] [address]- 9684 Feb, [facility] [place] [facility] [address] [id number] [place] [address]- 2960 Feb, [facility] [place] [facility] [address] [id number] [place] [address]- 3258 Feb, [facility] [place] [facility] [address] [id number] [place] [address]- 9520 Feb, [facility] [place] [facility] [address] [id number] [place] [address]- 9688 Feb, [facility] [place] [facility] [address] [id number] [place] [address]- 0342 Feb, [facility] [place] [facility] [address] [id number] [place] [address]- 9247 Feb, [facility] [place] [facility] [address] [id number] [place] [address]- 5816 Feb, [facility] [place] [facility] [address] [id number] [place] [address]- 5616 Feb, [facility] [place] [facility] [address] [id number] [place] [address]- 4366 19 Jan, 2012 [facility] [place] [facility] [address] [id number] [place] [address]- 9166 13 Jan, 2012 [facility] [place] [facility] [address] [id number] [place] [address]- 1677 11 Jan, 2012 [facility] [place] [facility] [address] [id number] [place] [address]- 6645 Jan, [facility] [place] [facility] [address] [id number] [place] [address]- 3675 05 Jan, 2012 [facility] [place] [facility] [address] [id number] [place] [address]- 5080 Dec, [facility] [place] [facility] [address] [id number] [place] [address]- 5081 Dec, [facility] [place] [facility] [address] [id number] [place] [address]- 3942 Dec, [facility] [place] [facility] [address] [id number] [place] [address]- 1613 Dec, [facility] [place] [facility] [address] [id number] [place] [address]- 4414 Dec, [facility] [place] [facility] [address] [id number] [place] [address]- 9307 Dec, [facility] [place] [facility] [address] [id number] [place] [address]- 5880 Nov, [facility] [place] [facility] [address] [id number] [place] [address]- 4537 Nov, [facility] [place] [facility] [address] [id number] [place] [address]- 3144 Nov, [facility] [address] [id number] [place] [address]- 7268 Nov, [facility] [address] [id number] [place] [address]- 0156 Nov, [facility] [address] [id number] [place] [address]- 6653 Oct, [facility] [address] [id number] [place] [address]- 9527 Oct, [facility] [address] [id number] [place] [address]- 7273 Oct, [facility] [address] [id number] [place] [address]- 8116 September, [facility] [address] [id number] [place] [address]- 4357 September, [facility] [address] [id number] [place] [address]- 5400 September, [facility] [address] [id number] [place] [address]- 2501 September, [facility] [address] [id number] [place] [address]- 5038 September, [facility] [address] [id number] [place] [address]- 2702 September, [facility] [address] [id number] [place] [address]- 5248 Aug, [facility] [place] [facility] [address] [id number] [place] [address]- 6245 Aug, [facility] [place] [facility] [address] [id number] [place] [address]- 8194 Aug, [facility] [address] [id number] [place] [address]- 1671 Jun, [facility] [address] [id number] [place] [address]- 5897 Jun, [facility] [address] [id number] [place] [address]- 9836 Jun, [facility] [address] [id number] [place] [address]- 8767 Jun, [facility] [address] [id number] [place] [address]- 5867 May, [facility] [address] [id number] [place] [address]- 6837 May, [facility] [address] [id number] [place] [address]- 8463 May, [facility] [address] [id number] [place] [address]- 4657 May, [facility] [address] [id number] [place] [address]- 5870 May, [facility] [address] [id number] [place] [address]- 2089 Apr, [facility] [address] [id number] [place] [address]- 7551 Apr, [facility] [address] [id number] [place] [address]- 0486 Apr, [facility] [place] [facility] [address] [id number], [place] [address]- 2104 Apr, [facility] [place] [facility] [address] [id number] [place] [address]- 6935 Apr, [facility] [place] [facility] [address] [id number] 5398 16 Apr, 2011 [facility] [place] [facility] [address] [id number] [place] 9160 16 Apr, 2011 [facility] [place] [facility] [address] [id number] [place] [address]- 8276 Mar, [facility] [place] [facility] [address] [id number] [place] [address]- 0754 Mar, [facility] [place] [facility] [address] [id number] [place] [address]- 0916 Mar, [facility] [place] [facility] [address] [id number] [place] [address]- 6494 Feb, [facility] [place] [facility] [address] [id number] [place] [address]- 8481 Feb, [facility] [place] [facility] [address] [id number] [place] [address]- 7325 Feb, [facility] [place] [facility] [address] [id number] [place] [address]- 9973 Feb, [facility] [place] [facility] [address] [id number] [place] [address]- 4621 Feb, [facility] [place] [facility] [address] [id number] [place] [address]- 8880 Feb, [facility] [place] [facility] [address] [id number] [place] [address]- 6757 Jan, [facility] [place] [facility] [address] [id number] [place] [address]- 1827 Jan, [facility] [place] [facility] [address] [id number] [place] [address]- 8303 September, [facility] [place] [facility] [address] [id number] [place] [address]- 1657 Jun, [facility] [place] [facility] [address] [id number] [place] [address]- 0468 Apr, [facility] [place] [facility] [address] [id number] [place] [address]881 Apr, [facility] [place] [facility] [address] [id number] [place] [address] Apr, [facility] [id number] [address]851 Apr, [facility] [id number]278 Apr, [facility] [address] [facility] [id number], [place] [address] 8[address] Mar, [facility] [id number] [place] [address]- 3601 Mar, [facility] [address] [facility] [id number] [address] 6362 Mar, [facility] [id number] [place] [address]- 3620 Mar, [facility] [id number], [place] [address] Feb, [facility] [address] [id number], [place] [address]- 4664 [address], [address] [facility] [id number], [place] [address]24 Mar, [facility] [id number], [place] [address] 0924 Jan, [facility] [id number], [place] [address] 69[address] Oct, [facility] [address], [place] [address]- 0860 Apr, IMMUNIZATIONS No Known Immunizations SOCIAL HISTORY Never Assessed REASON FOR VISIT Transition of Care- Tamar MCBRIDE PLAN OF CARE Activity Details Follow Up 3 months or as indicated by lab Reason:weight loss VITAL SIGNS Height 66 in 2018-02-01 Weight 261.5 lbs 2018-02-01 Temperature 98.0 degrees Fahrenheit 2018-02-01 Heart Rate 80 bpm 2018-02-01 Respiratory Rate 18 2018-02-01 BMI 42.20 kg/m2 2018-02-01 Blood pressure systolic 136 mmHg 2018-02-01 Blood pressure diastolic 74 mmHg 2018-02-01 MEDICATIONS Medication Instructions Dosage Frequency Start Date End Date Duration Status Contrave 8-90 MG Orally Twice a day 1 tab once daily x 7 days then 1 tab BID x 7 days then 2 tabs BID 12h 21 Jan, 2018 Feb, 28 days Active Actos 15 MG Orally Once a day 1 tablet 24h Active Diflucan 150 MG Orally Once a day 1 tablet 24h Jan, Jan, 10 day(s) Active Flexeril 10 mg Orally 2 times a day s needed 1 tablet 28 Active Lisinopril 20 mg Orally Once a day take 1/2 tab once daily 24h Active Omeprazole 20 mg Orally Once a day 1 capsule 24h Active RESULTS No Results PROCEDURES Procedure Date Ordered Result Body Site GLYCATED HEMOGLOBIN TEST Feb 01, 2018 COMPLETE CBC W/AUTO DIFF WBC Feb 01, 2018 ASSAY THYROID STIM HORMONE Feb 01, 2018 COMPREHEN METABOLIC PANEL Feb 01, 2018 VENIPUNCT, ROUTINE* Feb 01, 2018 LIPID PANEL Feb 01, 2018 INSTRUCTIONS MEDICATIONS ADMINISTERED No Known Medications MEDICAL [...]
--- OUTSIDE RECORDS SUMMARY | 2018-03-22 21:36 | XMS REPORT ---
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
--- OUTSIDE RECORDS SUMMARY | 2018-03-22 21:37 | XMS REPORT ---
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 Name Role Phone CALIN FLORES Unavailable PROBLEMS Type Condition ICD9-CM Code TDG22-FA Code Onset Dates Condition Status SNOMED Code Problem Hypertriglyceridemia E78.1 Active 899920136 Problem Essential hypertension I10 Active 40258421 Problem Irritable bowel syndrome without diarrhea K58.9 Active 84267004 Problem Morbid (severe) obesity due to excess calories E66.01 Active 999683701 Problem Body mass index (BMI) of 40.0-44.9 in adult Z68.41 Active 384374753 Problem Anxiety F41.9 Active 17738197 Problem Bilateral low back pain without sciatica M54.5 Active 578489509 Problem Alternating constipation and diarrhea R19.8 Active 924925493 Problem Pre-diabetes R73.03 Active 545611930 ALLERGIES Substance Reaction Event Type Date Status Penicillin V Potassium anaphylaxis Drug Allergy Jan, Active surgical tape "tears skin off" Non Drug Allergy Jan, Active ENCOUNTERS Encounter Location Date Diagnosis [facility] [id number] [place] [address] 91571- 9269 Jan, [facility] [address] [place] [address] 66141- 0297 Jan, [facility] [address] [place] [address] 43867- 0170 Jan, BMI 40.0-44.9, adult Z68.41 ; Pre-diabetes R73.03 ; Essential hypertension I10 ; Morbid (severe) obesity due to excess calories E66.01 ; Bilateral low back pain without sciatica M54.5 and Heartburn R12 [facility] [id number] [place] [address] 83603- 1175 Jan, History of UTI Z87.440 ; Well woman exam with routine gynecological exam Z01.419 ; Screening for breast cancer Z12.31 ; Candidal vaginitis B37.3 and BMI 40.0-44.9, adult Z68.41 [facility] [id number] [address] 05 Jan, 2018 [facility] [address] [address] Jan, Dysuria R30.0 ; Acute cystitis with hematuria N30.01 ; Yeast infection B37.9 and BMI 40.0-44.9, adult Z68.41 [place] [address] [address] 29[address] Dec, [place] [address] [address] 1589 Dec, [place] [address] [place] [address] 00699- 8907 Nov, History of UTI Z87.440 [facility] [address] [address] 46[address] 27 Nov, 2017 UTI symptoms R39.9 ; Acute nasopharyngitis J00 and BMI 40.0- 44.9, adult Z68.41 [place] [address] [address] 7609 Nov, [place] [address] [address] 5[address] Nov, Yeast infection involving the vagina and surrounding area B37.3 [place] [address] [address]- 3205 Nov, Yeast infection involving the vagina and surrounding area B37.3 [place] [id number] [address]- 6244 Nov, Yeast infection involving the vagina and surrounding area B37.3 ; Body mass index (BMI) of 40.0-44.9 in adult Z68.41 and Morbid (severe) obesity due to excess calories E66.01 [place] [address] 67856- 3225 Oct, Abscess of groin, left L02.214 and Pre-diabetes R73.03 [facility] [address] 12353- 8805 September, Pre-diabetes R73.03 [facility] [address] 49958- 9190 Aug, [place] [address] 95091- 2160 Jul, Bilateral low back pain without sciatica M54.5 [place] [address] 69037- 1227 Jun, [facility] [address] 12654- 0059 Jun, [facility] [address] 73177- 2753 Jun, [place] [address] 60453- 6135 May, [facility] [address] 57245- 7321 May, Ingrown left greater toenail L60.0 [facility] [address] 56466- 9725 May, [facility] [address] 95109 -1218 May, Influenza A J10.1 ; Fever R50.9 and Body aches R52 [facility] [address] 72782- 9379 Apr, [facility] [address] 45771- 3238 Apr, [place] [id number] [place] [address] 81017- 4861 Apr, [place] [address] 25426- 9457 Apr, Abscess L02.91 and Obesity (BMI 30-39.9) E66.9 [place] [address] 32479- 5226 Apr, [place] [address] 94825- 7282 Apr, [address] 68991- 8769 Mar, Acute non-recurrent maxillary sinusitis J01.[address] 78024- 1073 Feb, Heartburn R12 [address] 85868- 5189 Feb, Heartburn R12 ; Low back pain M54.5 ; Essential hypertension I10 ; Bilateral low back pain without sciatica M54.5 ; Anxiety F41.9 ; Pre-diabetes R73.03 ; Other obesity due to excess calories E66.09 ; Alternating constipation and diarrhea R19.8 ; Dyspepsia R10.13 ; Generalized abdominal pain R10.84 ; Rhinosinusitis J32.9 and Boil L02.92 [place] [id number] [place] [address] 88179- 4008 Jan, Heartburn R12 [place] [id number] [place] [address] 03846- 4566 Jan, [address] 47454- 0288 Jan, [place] [id number] [place] [address] 17396- 6847 Jan, Acute seasonal allergic rhinitis due to pollen J30.1 and Irritable bowel syndrome without diarrhea K58.9 [place] [address] 77622- 1381 Dec, Low back pain M54.5 and Acute cystitis with hematuria N30.01 [place] [address] 83603- 2736 Dec, Low back pain M54.5 and Acute cystitis with hematuria N30.01 [place] [address] 65742- 7066 Dec, Heartburn R12 ; Essential hypertension I10 ; Acute non- recurrent maxillary sinusitis J01.00 ; Bilateral low back pain without sciatica M54.5 ; Anxiety F41.9 ; Pre-diabetes R73.03 ; Pain in right foot M79.671 ; Pain in left foot M79.672 ; Other obesity due to excess calories E66.09 and Acute cystitis with hematuria N30.01 [place] [address] 50637- 5906 Dec, Bilateral low back pain without sciatica M54.5 ; Acute non- recurrent maxillary sinusitis J01.00 and Pre-diabetes R73.03 [place] [address] 58739- 8341 Oct, [facility] [address] [address] -[address]43 Aug, [facility] [place] [address] 26045 -3086 Aug, Acute vaginitis N76.0 ; Urinary frequency R35.0 ; Screen for STD (sexually transmitted disease) Z11.3 and Abscess L02.91 [place] [address] 85878- 8334 Aug, Plantar wart of right foot B07.[address] 27780- 0378 Jul, Plantar wart of right foot B07.0 [facility] [id number] [place] [address] 11982- 6957 Jun, [facility] [id number] [place] [address] 37793- 7278 Jun, Heartburn R12 ; Essential hypertension I10 ; Anxiety F41.9 ; Folliculitis L73.9 and Plantar wart of right foot B07.0 [facility] [id number] [place] [address] 86453- 1600 Jun, [facility] [address] 69895 -6489 May, Low back pain M54.5 and Other chronic pain G89.29 [place] [address] 98885- 7818 May, [place] [address] 20517- 4154 May, [place] [id number] [place] [address] 07320- 7045 May, Heartburn R12 ; Bilateral low back pain without sciatica M54.5 ; Essential hypertension I10 ; Long-term use of high-risk medication Z79.899 ; Anxiety F41.9 ; Impacted cerumen of right ear H61.21 ; Folliculitis L73.9 ; High risk bisexual behavior Z72.53 and General medical exam Z00.00 [place] [id number] [place] [address] 37715- 2095 May, [place] [id number] [place] [address] 31041- 3022 May, [place] [id number] [place] [address] 23038- 1911 Mar, Acute nasopharyngitis J00 ; Acute intractable tension-type headache G44.201 and Cough R05 [place] [address] [place] [address]- 9025 29 Jan, 2016 [facility] [id number] [place] [address] 71039 -4474 29 Jan, 2016 Abscess L02.91 [facility] [id number] [place] [address] 59116 -6317 10 Jan, 2016 Urinary urgency R39.15 and Urinary tract infection without hematuria, site unspecified N39.0 [facility] [id number] [place] [address] 85301- 4608 Jan, [facility] [id number] [place] [address] 71496- 4869 Jan, [facility] [id number] [place] [address] 56556- 5136 Dec, [facility] [id number] [place] [address] 21007- 4694 Dec, Dermatofibroma D23.9 [facility] [id number] [place] [address] 16767- 7183 September, [facility] [id number] [place] [address] 66185- 6986 Aug, [facility] [id number] [place] [address] 42445- 0014 Aug, Pain in left knee M25.562 ; Heartburn R12 ; Bilateral low back pain without sciatica M54.5 ; Essential hypertension I10 ; Ingrown left big toenail L60.0 ; Chronic pain G89.29 ; Irritable bowel syndrome with constipation K58.9 and Skin infection L08.9 [facility] [id number] [place] [address] 79484- 8599 Aug, [facility] [id number] [place] [address] 34561- 0781 Jul, [facility] [id number] [place] [address] 91124- 2771 Jun, [facility] [address] [place] [address] 84218- 4655 Jun, [facility] [id number] [place] [address] 43002- 7307 Jun, [facility] [id number] [place] [address] 09117- 3763 Jun, [facility] [id number] [place] [address] 81788- 6357 Jun, Upper respiratory infection J06.9 ; Bilateral low back pain without sciatica M54.5 and Headache R51 [facility] [id number] [place] [address] 70907- 3815 May, [facility] [id number] [place] [address] 74561- 8558 Apr, Bilateral low back pain without sciatica M54.5 ; Upper respiratory infection J06.9 and Yeast dermatitis B37.2 [facility] [id number] [place] [address] 98103- 5184 Apr, [facility] [id number] [place] [address] 17420- 3358 Apr, [facility] [id number] [place] [address] 45038- 5148 Feb, [facility] [id number] [place] [address] 65172- 9398 Feb, [facility] [id number] [place] [address] 26468- 6753 Feb, [facility] [id number] [place] [address] 58296- 7123 Feb, Essential hypertension I10 ; Heartburn R12 ; Irritable bowel syndrome without diarrhea K58.9 ; Bilateral low back pain, with sciatica presence unspecified M54.5 and Upper respiratory infection J06.9 [facility] [address] [place] [address]- 0388 Feb, [facility] [id number] [place] [address] 53403- 4671 Feb, Generalized anxiety disorder F41.1 and Grief F43.20 [facility] [id number] [place] [address] 21276- 0282 Jan, [facility] [address] 21426- 5105 Jan, Back pain 724.5 ; Upper respiratory infection 465.9 ; HTN ( hypertension) 401.9 and Dyspepsia 536.8 [place] [address] 35199- 6669 Dec, [place] [id number] [place] [address] 56037- 1786 Nov, Back pain 724.5 ; Abdominal pain, bilateral lower quadrant 789.03 ; GERD (gastroesophageal reflux disease) 530.81 ; Upper respiratory infection 465.9 ; Dysuria 788.1 and HTN (hypertension) 401.9 [place] [id number] [place] [address] 33652- 0779 Nov, [facility] [id number] [place] [address] 20305- 5609 Nov, [place] [id number] [place] [address] 75929- 9521 Nov, [facility] [id number] [place] [address] 19224- 5882 Nov, Cough 786.2 [place] [id number] [place] [address] 99942- 2064 Nov, Cough 786.2 [facility] [id number] [place] [address] 97523- 0557 Oct, Unspecified episodic mood disorder 296.90 and Anxiety disorder, unspecified 300.00 [facility] [address] [place] [address]- 3371 10 Oct, 2014 Abdominal pain, left upper quadrant 789.02 ; Essential hypertension, benign 401.1 ; Irritable bowel syndrome 564.1 ; Abscess 682.9 ; Heartburn 787.1 ; Acute sinusitis, unspecified 461.9 ; Muscle spasm of back 724.8 ; Cough 786.2 and Skin tag 701.9 [facility] [id number] [place] [address] 96444- 6962 September, [facility] [id number] [place] [address] 42488- 8140 September, [facility] [id number] [place] [address] 005890- 2511 September, [facility] [id number] [place] [address] 770847- 2428 Aug, [facility] [id number] [place] [address] 89145- 9377 Aug, [facility] [address]- 3233 Jul, [facility] [id number]- 7967 Jul, [facility] [address] [address]- 4154 Jul, [facility] [address] [address]- 6648 Jul, [facility] [address], [place] [address]- 0375 Jul, [facility] [id number] [place] [address] 080041- 5910 Jul, [facility] [address], [place] [address]- 4356 Jul, [facility] [id number] [place] [address] 20317- 1573 Jul, [facility] [place] [facility] [address] [id number] [place] [address]- 6831 Jul, [facility] [place] [facility] [address] [id number] [place] [address]- 4655 Jul, [facility] [place] [facility] [address] [id number] [place] [address]- 0820 Jul, [facility] [place] [facility] [address] [id number] [place] [address]- 0671 Jul, [facility] [place] [facility] [address] [id number] [place] [address]- 3440 Jul, [facility] [place] [facility] [address] [id number] [place] [address]- 7899 Jul, [facility] [place] [facility] [address] [id number] [place] [address]- 2644 Jul, [facility] [place] [facility] [address] [id number] [place] [address]- 8253 Jul, [facility] [place] [facility] [address] [id number] [place] [address]- 9212 Jul, [facility] [place] [facility] [address] [id number] [place] [address]- 5433 Jun, [facility] [place] [facility] [address] [id number] [place] [address]- 5751 Jun, 2014 [facility] [place] [facility] [address] [id number] [place] [address]- 0136 Jun, 2014 [facility] [place] [facility] [address] [id number] [place] [address]- 0319 Jun, 2014 [facility] [place] [facility] [address] [id number] [place] [address]- 0982 Jun, 2014 [facility] [place] [facility] [address] [id number] [place] [address]- 9813 Jun, 2014 [facility] [place] [facility] [address] [id number] [place] [address]- 1672 Jun, [facility] [place] [facility] [address] [id number] [place] 8246 Jun, [facility] [place] [facility] [address] [id number] [place] 1746 Apr, [facility] [place] [facility] [address] [id number] [place] [address]- 8956 Apr, [facility] [place] [facility] [address] [id number] [place] [address]- 4484 Apr, [facility] [place] [facility] [address] [id number] [place] [address]- 9367 Apr, [facility] [place] [facility] [address] [id number] [place] [address]- 2284 Apr, [facility] [place] [facility] [address] [id number] [place] [address]- 2053 Apr, [facility] [place] [facility] [address] [id number] [place] [address]- 2681 Apr, [facility] [place] [facility] [address] [id number] [place] [address]- 9694 Apr, [facility] [place] [facility] [address] [id number] [place] [address]- 8526 Apr, [facility] [place] [facility] [address] [id number] [place] [address]- 4494 Apr, [facility] [place] [facility] [address] [id number] [place] [address]- 0917 Apr, [facility] [place] [facility] [address] [id number] [place] 1616 Apr, [facility] [place] [facility] [address] [id number] [place] [address]- 3426 04 Apr, 2014 [facility] [place] [facility] [address] [id number] [place] [address]- 2173 Apr, [facility] [place] [facility] [address] [id number] [place] [address]- 8189 Apr, [facility] [place] [facility] [address] [id number] [place] [address]- 2651 Feb, [facility] [place] [facility] [address] [id number] [place] [address]- 3543 Feb, [facility] [place] [facility] [address] [id number] [place] 7022 Feb, [facility] [place] [facility] [address] [id number] [place] [address]- 6381 Feb, [facility] [place] [facility] [address] [id number] [place] [address]- 8300 Feb, [facility] [place] [facility] [address] [id number] [place] [address]- 2627 Feb, [facility] [place] [facility] [address] [id number] [place] [address]- 8083 Jan, [facility] [place] [facility] [address] [id number] [place] [address]- 7797 08 Jan, 2014 [facility] [place] [facility] [address] [id number] [place] [address]- 4981 Jan, [facility] [place] [facility] [address] [id number] [address]- 1413 Jan, [facility] [place] [facility] [address] [id number], [place] [address]- 1974 Jan, 2013 [facility] [place] [facility] [address] [id number] [place] [address]- 4793 Jan, [facility] [place] [facility] [address] [id number] [place] [address]- 0270 Dec, [facility] [place] [facility] [address] [id number] [place] [address]- 5898 Dec, [facility] [place] [facility] [address] [id number] [place] [address]- 7401 Dec, [facility] [place] [facility] [address] [id number] [place] [address]- 5272 Dec, [facility] [place] [facility] [address] [id number] [place] [address]- 4566 Nov, [facility] [place] [facility] [address] [id number] [place] [address]- 7694 Nov, [facility] [place] [facility] [address] [id number] [place] [address]- 5241 Nov, [facility] [place] [facility] [address] [id number] [place] [address]- 8674 Nov, [facility] [place] [facility] [address] [id number] [place] [address]- 2615 Nov, [facility] [place] [facility] [address] [id number] [place] [address]- 9328 Nov, [facility] [place] [facility] [address] [id number] [place] [address]- 0891 Nov, [facility] [place] [facility] [address] [id number] [place] [address]- 7373 Nov, [facility] [place] [facility] [address] [id number] [place] [address]- 7635 Oct, [facility] [place] [facility] [address] [id number] [place] [address]- 9568 Oct, [facility] [place] [facility] [address] [id number] [place] [address]- 2545 Oct, [facility] [place] [facility] [address] [id number] [place] [address]- 9151 Oct, [facility] [place] [facility] [address] [id number] [place] [address]- 1486 Oct, [facility] [place] [facility] [address] [id number] [place] [address]- 4719 Oct, [facility] [place] [facility] [address] [id number] [place] [address]- 78[address] Oct, [facility] [place] [facility] [address] [id number] [place] [address] Oct, [facility] [place] [facility] [address] [id number] [place] [address] Oct, [facility] [place] [facility] [address] [id number] [place] [address] Oct, [facility] [place] [facility] [address] [id number] [place] [address] Oct, [facility] [place] [facility] [address] [id number] [place] [address] Oct, [facility] [place] [facility] [address] [id number] [place] [address] Oct, [facility] [place] [facility] [address] [id number] [place] [address] 18 Oct, 2013 [facility] [place] [facility] [address] [id number] [place] [address] 17 Oct, 2013 [facility] [place] [facility] [address] [id number] [place] [address] 17 Oct, 2013 [facility] [place] [facility] [address] [id number] [place] [address] 16 Oct, 2013 [facility] [place] [facility] [address] [id number] [place] [address] 16 Oct, 2013 [facility] [place] [facility] [address] [id number] [place] [address] 13 Oct, 2013 [facility] [place] [facility] [address] [id number] [place] [address] 13 Oct, 2013 [facility] [place] [facility] [address] [id number] [place] [address] 11 Oct, 2013 [facility] [place] [facility] [address] [id number] [place] [address] Oct, [facility] [place] [facility] [address] [id number] [place] [address] Oct, [facility] [place] [facility] [address] [id number] [place] [address] Oct, [facility] [place] [facility] [address] [id number] [place] [address] Oct, [facility] [place] [facility] [address] [id number] [place] [address] Oct, [facility] [place] [facility] [address] [id number] [place] [address] Oct, [facility] [place] [facility] [address] [id number] [place] [address] Oct, [facility] [place] [facility] [address] [id number] [place] [address] Oct, [facility] [place] [facility] [address] [id number] [place] [address] Oct, [facility] [place] [facility] [address] [id number] [place] [address] September, [facility] [place] [facility] [address] [id number] [place] [address] September, [facility] [place] [facility] [address] [id number] [place] [address] September, [facility] [place] [facility] [address] [id number] [place] [address] September, [facility] [place] [facility] [address] [id number] [place] [address]- [address] September, [facility] [place] [facility] [address] [id number] [place] [address] September, [facility] [place] [facility] [address] [id number] [place] [address] September, [facility] [place] [facility] [address] [id number] [place] [address] September, [facility] [address] [id number] [place] [address] September, [facility] [address] [id number] [place] [address] September[facility] [facility] [address] [id number] [place] [address] September, [facility] [address] [id number] [place] [address] September, [facility] [address] [id number] [place] [address] 3816 September, [facility] [address] [id number] [place] [address] September, [facility] [address] [id number] [place] [address]447 September, [facility] [address] [id number] [place] [address] 3186 September, [facility] [address] [id number] [place] [address]139 September, [facility] [address] [id number] [place] [address] 8344 September, [facility] [address] [id number] [place] [address] 1173 Aug, [facility] [address] [id number] [place] [address] 6666 Aug, [facility] [place] [facility] [address] [id number] [place] [address] 1149 Aug, [facility] [address] [id number] [place] [address] 6540 Aug, [facility] [address] [id number] [place] [address] 3232 Aug, [facility] [place] [facility] [address] [id number] [place] [address] 1576 Aug, [facility] [place] [facility] [address] [id number] [place] [address]- 2515 Jul, [facility] [place] [facility] [address] [id number] [place] [address] 6288 Jul, [facility] [place] [facility] [address] [id number] [place] [address]- 8261 Jul, [facility] [place] [facility] [address] [id number] [place] [address]- 2778 Jul, [facility] [place] [facility] [address] [id number] [place] [address]- 0695 Jun, [facility] [place] [facility] [address] [id number] [place] [address]- 2105 Jun, [facility] [place] [facility] [address] [id number] [place] [address]- 3889 Jun, [facility] [place] [facility] [address] [id number] [place] [address]- 5917 Jun, [facility] [place] [facility] [address] [id number] [place] [address] 0995 Mar, [facility] [place] [facility] [address] [id number] [place] [address]- 0698 14 Mar, 2013 [facility] [place] [facility] [address] [id number], [place] [address] Mar, [facility] [place] [facility] [address] [id number] [place] [address]- 3247 Mar, [facility] [place] [facility] [address] [id number] [place] [address] 6136 Feb, [facility] [place] [facility] [address] [id number] [place] [address]- 2932 Feb, [facility] [place] [facility] [address] [id number] [place] [address]- 6841 Feb, [facility] [place] [facility] [address] [id number] [place] [address]- 09[address] Jan, [facility] [place] [facility] [address] [id number] [place] [address]- 6786 Jan, [facility] [place] [facility] [address] [id number] [place] [address]- 4247 Jan, [facility] [place] [facility] [address] [id number] [place] [address]- 5090 Jan, [facility] [place] [facility] [address] [id number] [place] [address]- 7582 Dec, [facility] [place] [facility] [address] [id number] [place] [address]- 1403 Dec, [facility] [place] [facility] [address] [id number] [place] [address] 3740 Dec, [facility] [place] [facility] [address] [id number] [place] [address]- 4214 Dec, [facility] [place] [facility] [address] [id number] [place] [address]- 6261 Nov, [facility] [place] [facility] [address] [id number] [place] [address]- 2053 Nov, [facility] [place] [facility] [address] [id number] [place] [address]- 3318 Nov, [facility] [place] [facility] [address] [id number] [place] [address]- 8484 Nov, [facility] [place] [facility] [address] [id number] [place] [address]- 5652 Nov, [facility] [place] [facility] [address] [id number] [place] [address] Nov, [facility] [place] [facility] [address] [id number] [place] [address] Oct, [facility] [place] [facility] [address] [id number] [place] [address]- 1497 Oct, [facility] [address] [id number] [place] [address]- 7613 Oct, [facility] [place] [facility] [address] [id number] [place] [address]- 3345 Oct, [facility] [address] [id number] [place] [address]- 5905 17 Oct, 2012 [facility] [address] [id number] [place] [address]- 7789 16 Oct, 2012 [facility] [address] [id number] [place] [address]- 2925 14 Oct, 2012 [facility] [address] [id number] [place] [address]- 5477 13 Oct, 2012 [facility] [address] [id number] [place] [address]- 3890 Oct, [facility] [address] [id number] [place] [address]- 9953 Oct, [facility] [place] [facility] [address] [id number] [place] [address]- 3737 September, [facility] [place] [facility] [address] [id number] [place] [address]- 6897 September, [facility] [place] [facility] [address] [id number] [place] [address] 7139 September, [facility] [place] [facility] [address] [id number] [place] [address]- 4533 Aug, [facility] [place] [facility] [address] [id number] [place] [address]- 8537 Aug, [facility] [place] [facility] [address] [id number] [place] [address]- 8655 Aug, [facility] [place] [facility] [address] [id number] [place] [address]- 2546 Aug, [facility] [address] [id number] [place] [address]- 1801 30 Jul, 2012 [facility] [place] [facility] [address] [id number] [place] [address]- 8740 Jul, [facility] [place] [facility] [address] [id number] [place] [address]- 4860 Jul, [facility] [place] [facility] [address] [id number] [place] [address]- 4333 Jul, [facility] [place] [facility] [address] [id number] [place] [address]- 2675 Jul, [facility] [place] [facility] [address] [id number] [place] [address]- 1215 Jul, [facility] [place] [facility] [address] [id number] [place] [address]- 2937 May, [facility] [place] [facility] [address] [id number] [place] [address]- 6789 May, [facility] [place] [facility] [address] [id number] [place] [address]- 5271 May, [facility] [place] [facility] [address] [id number] [place] [address]- 5320 May, [facility] [place] [facility] [address] [id number] [place] [address]- 3938 May, [facility] [place] [facility] [address] [id number] [place] [address]- 8447 May, [facility] [place] [facility] [address] [id number] [place] [address]- 0279 May, [facility] [place] [facility] [address] [id number] [place] [address]- 9091 May, [facility] [place] [facility] [address] [id number] [place] [address]- 0461 May, [facility] [place] [facility] [address] [id number] [place] [address]- 0098 17 May, 2012 [facility] [address] [id number] [place] [address]- 7606 May, [facility] [address] [id number] [place] [address]- 7588 Apr, [facility] [address] [id number] [place] [address]- 9777 Apr, [facility] [address] [id number] [place] [address]- 0692 Apr, [facility] [address] [id number] [place] [address]- 5573 Apr, [facility] [address] [id number] [place] [address]- 5920 Apr, [facility] [address] [id number] [place] [address]- 7430 Apr, [facility] [address] [id number] [place] [address]- 5704 Mar, [facility] [address] [id number] [place] [address]- 2944 Mar, [facility] [address] [id number] [place] [address]- 8918 Mar, [facility] [place] [facility] [address] [id number] [place] [address]- 8478 Mar, [facility] [address] [id number] [place] [address]- 7220 Mar, [facility] [place] [facility] [address] [id number] [place] [address]- 2352 Mar, [facility] [place] [facility] [address] [id number] [place] [address]- 5940 Mar, [facility] [place] [facility] [address] [id number] [place] [address] Mar, [facility] [place] [facility] [address] [id number] [place] [address]- 3084 Feb, [facility] [place] [facility] [address] [id number] [place] [address]- 7956 23 Feb, 2012 [facility] [place] [facility] [address] [id number] [place] [address]- 0391 16 Feb, 2012 [facility] [place] [facility] [address] [id number] [place] [address]- 3675 15 Feb, 2012 [facility] [place] [facility] [address] [id number] [place] [address]- 7077 15 Feb, 2012 [facility] [place] [facility] [address] [id number] [place] [address]- 4150 13 Feb, 2012 [facility] [place] [facility] [address] [id number] [place] [address]- 9789 Feb, [facility] [place] [facility] [address] [id number], [place] [address]- 8483 Feb, [facility] [place] [facility] [address] [id number], [place] [address]- 0425 Feb, [facility] [place] [facility] [address] [id number], [place] [address]- 3221 Feb, [facility] [place] [facility] [address] [id number], [place] [address]- 5788 Feb, [facility] [place] [facility] [address] [id number], [place] [address]- 8774 Feb, [facility] [place] [facility] [address] [id number], [place] [address]- 7299 Feb, [facility] [place] [facility] [address] [id number], [place] [address]- 9527 Feb, [facility] [place] [facility] [address] [id number], [place] [address]- 3076 Feb, [facility] [place] [facility] [address] [id number], [place] [address]- 7648 Feb, [facility] [place] [facility] [address] [id number] [place] [address]- 0413 Feb, [facility] [place] [facility] [address] [id number] [place] [address]- 0806 Feb, [facility] [place] [facility] [address] [id number] [place] [address]- 6926 19 Jan, 2012 [facility] [place] [facility] [address] [id number] [place] [address]- 8261 13 Jan, 2012 [facility] [place] [facility] [address] [id number] [place] [address]- 1569 11 Jan, 2012 [facility] [place] [facility] [address] [id number] [place] [address]- 2196 10 Jan, 2012 [facility] [place] [facility] [address] [id number] [place] [address]- 1678 05 Jan, 2012 [facility] [place] [facility] [address] [id number] [place] [address]- 8156 Dec, [facility] [place] [facility] [address] [id number] [place] [address]- 4317 Dec, [facility] [place] [facility] [address] [id number] [place] [address]- 2102 Dec, [facility] [place] [facility] [address] [id number] [place] [address]- 1055 Dec, [facility] [place] [facility] [address] [id number] [place] [address]- 9414 Dec, [facility] [place] [facility] [address] [id number] [place] [address]- 5096 Dec, [facility] [place] [facility] [address] [facility] [id number] [place] [address]- 5309 Nov, [facility] [place] [facility] [address] [facility] [id number] [place] [address]- 0968 Nov, [facility] [place] [facility] [address] [id number] [place] [address]- 1074 Nov, [facility] [place] [facility] [address] [id number] [place] [address]- 6349 Nov, [facility] [place] [facility] [address] [id number] [place] [address]- 2546 Nov, [facility] [place] [facility] [address] [id number] [place] [address]- 2432 Oct, [facility] [place] [facility] [address] [id number] [place] [address]- 5828 Oct, [facility] [place] [facility] [address] [id number] [place] [address]- 8677 Oct, [facility] [place] [facility] [address] [id number] [place] [address]- 4958 September, [facility] [place] [facility] [address] [id number] [place] [address]- 5400 September, [facility] [place] [facility] [address] [id number] [place] [address]- 4628 September, [facility] [place] [facility] [address] [id number] [place] [address]- 0939 September, [facility] [place] [facility] [address] [id number] [place] [address]- 5181 September, [facility] [place] [facility] [address] [id number] [place] [address]- 2336 September, [facility] [place] [facility] [address] [id number] [place] [address]- 0668 Aug, [facility] [place] [facility] [address] [id number] [place] [address]- 1842 Aug, [facility] [place] [facility] [address] [id number] [place] [address]- 0278 Aug, [facility] [place] [facility] [address] [id number] [place] [address]- 0413 Jun, [facility] [address] [id number] [place] [address]- 2742 Jun, [facility] [place] [facility] [address] [id number] [place] [address]- 4256 Jun, [facility] [place] [facility] [address] [id number] [place] [address]- 0966 Jun, [facility] [place] [facility] [address] [id number] [place] [address]- 8647 May, [facility] [place] [facility] [address] [id number] [place] [address]- 1995 May, [facility] [place] [facility] [address] [id number] [place] [address]- 6564 May, [facility] [address] [id number] [place] [address]- 6111 May, [facility] [place] [facility] [address] [id number] [place] [address]- 6182 May, [facility] [place] [facility] [address] [id number] [place] [address]- 5646 Apr, [facility] [place] [facility] [address] [id number] [place] [address]- 7563 Apr, [facility] [place] [facility] [address] [id number] [place] [address]- 1199 Apr, [facility] [place] [facility] [address] [id number] [place] [address]- 0256 Apr, [facility] [place] [facility] [address] [id number] [place] [address]- 0031 Apr, [facility] [place] [facility] [address] [id number] [place] 2403 Apr, [facility] [place] [facility] [address] [id number] [place]107 Apr, [facility] [place] [facility] [address] [id number] [place] [address]- 7434 Mar, [facility] [address] [id number] [place] [address]- 8513 Mar, [facility] [place] [facility] [address] [id number] [place] [address]- 9533 Mar, [facility] [address] [id number] [place] [address]- 9357 Feb, [facility] [place] [facility] [address] [id number] [place] [address]- 6541 Feb, [facility] [place] [facility] [address] [id number] [place] [address]- 8102 Feb, [facility] [place] [facility] [address] [id number] [place] [address]- 5148 Feb, [facility] [place] [facility] [address] [id number] [place] [address]- 5882 Feb, [facility] [place] [facility] [address] [id number] [place] [address]- 0637 Feb, [facility] [place] [facility] [address] [id number] [place] [address]- 1409 Jan, [facility] [place] [facility] [address] [id number] [place] [address]- 7529 Jan, [facility] [place] [facility] [address] [id number] [place] [address]- 6674 September, [facility] [place] [facility] [address] [id number] [place] [address]- 4687 Jun, [facility] [place] [facility] [address] [id number] [place] [address]- 9223 Apr, [facility] [place] [facility] [address] [id number] [place] [address]- 8707 Apr, [facility] [place] [facility] [address] [id number] [place] [address]- 5815 Apr, [facility] [id number] [address] Apr, [facility] [address], [place] [address]- 6182 Apr, [facility] [address], [place] [address]- 6908 Mar, [facility] [id number] [place] [address]- 6563 Mar, [facility] [id number], [place] [address]- 4438 Mar, [facility] [id number] [place] [address]- 7763 Mar, [facility] [id number] [place] [address]909- 1678 Feb, [facility] [id number] [place] [address] 29080- 5263 15 Jan, 2010 [facility] [id number] [place] [address]- 1314 Mar, [facility] [address], [place] [address]- 3417 Jan, [facility] [address], [place] [address]- 0421 Oct, [facility] [address], [place] [address]- 6610 Apr, IMMUNIZATIONS No Known Immunizations SOCIAL HISTORY Never Assessed REASON FOR VISIT dysuria for 10 days. rachel PLAN OF CARE Activity Details Follow Up prn Reason: VITAL SIGNS Height 66 in 2018-01-12 Weight 264.2 lbs 2018-01-12 Temperature 98.0 degrees Fahrenheit 2018-01-12 Heart Rate 80 bpm 2018-01-12 Respiratory Rate 20 2018-01-12 BMI 42.64 kg/m2 2018-01-12 Blood pressure systolic 136 mmHg 2018-01-12 Blood pressure diastolic 80 mmHg 2018-01-12 MEDICATIONS Medication Instructions Dosage Frequency Start Date End Date Duration Status Diflucan 150 MG Orally one today, one sunday 1 tablet Jan, 4 Jan, 2018 3 day(s) Active Sulfamethoxazole-Trimethoprim 800-160 MG Orally Twice a day 1 tablet 12h Jan, Jan, 10 day(s) Active Fluticasone Propionate 50 MCG/ACT Nasally Once a day 2 sprays in each nare x 7 days then 1 spray each nare 24h Nov, 30 day(s) Active Flexeril 10 mg Orally 2 times a day s needed 1 tablet 28 Active Ibuprofen 800 MG Orally Three times a day 1 tablet 8h 30 Active Omeprazole 20 mg Orally Once a day 1 capsule 24h Active Actos 30 MG Orally Once a day 1/2 tablet 24h 60 Active Lisinopril 20 MG TAKE ONE TABLET BY MOUTH ONCE DAILY 30 Active RESULTS Name Result Date Reference Range UA LONG DIP (IN HOUSE) 2018-01-12 Lot # [id number] Exp date 2018 08 30 Clarity clear Color yellow Odor strong GLU negative RANDALL negative KET negative SG >=1.030 BLO 1+ pH 5.5 Protein 1+ URO 0.2 NIT positive TRAVIS 3+ Lot # [id number] Exp date apr 2018 PROCEDURES Procedure Date Ordered Result Body Site URINALYSIS, AUTO, W/O SCOPE Jan 12, 2018 INSTRUCTIONS MEDICATIONS ADMINISTERED No Known Medications [...]
--- OUTSIDE RECORDS SUMMARY | 2018-03-22 21:37 | XMS REPORT ---
Author Author MONIQUE VILLARREAL [facility] Address [address] [place] [address] Care Team Providers Care Dining Service Inspector Name Role Phone KENYA VILLARREALTA Unavailable PROBLEMS Type Condition ICD9-CM Code CMW10-DP Code Onset Dates Condition Status SNOMED Code Problem Hypertriglyceridemia E78.1 Active 964028390 Problem Essential hypertension I10 Active 86810784 Problem Irritable bowel syndrome without diarrhea K58.9 Active 05258067 Problem Morbid (severe) obesity due to excess calories E66.01 Active 708188285 Problem Body mass index (BMI) of 40.0-44.9 in adult Z68.41 Active 688993883 Problem Anxiety F41.9 Active 19531428 Problem Bilateral low back pain without sciatica M54.5 Active 033022318 Problem Alternating constipation and diarrhea R19.8 Active 746305143 Problem Pre-diabetes R73.03 Active 087783797 ALLERGIES Substance Reaction Event Type Date Status Penicillin V Potassium anaphylaxis Drug Allergy Jan, Active surgical tape "tears skin off" Non Drug Allergy Jan, Active ENCOUNTERS Encounter Location Date Diagnosis [facility] [id number] [place] [address] 04758- 1520 Jan, [facility] [id number] [place] [address] 42821- 5407 Jan, [facility] [id number] [place] [address] 16404- 3897 Jan, BMI 40.0-44.9, adult Z68.41 ; Pre-diabetes R73.03 ; Essential hypertension I10 ; Morbid (severe) obesity due to excess calories E66.01 ; Bilateral low back pain without sciatica M54.5 and Heartburn R12 [facility] [id number] [place] [address] 70011- 1220 Jan, History of UTI Z87.440 ; Well woman exam with routine gynecological exam Z01.419 ; Screening for breast cancer Z12.31 ; Candidal vaginitis B37.3 and BMI 40.0-44.9, adult Z68.41 [facility] [address] [facility] [id number], [place] [address] 05 Jan, 2018 [facility] [address] [facility] [id number], [place] [address] Jan, Dysuria R30.0 ; Acute cystitis with hematuria N30.01 ; Yeast infection B37.9 and BMI 40.0-44.9, adult Z68.41 [place] [address] [facility] [id number], [place] [address]- 0360 Dec, [place] [address] [facility] [id number], [place] [address]- 7375 Dec, [place] [address] [id number] [address] 8652 Nov, History of UTI Z87.440 [facility] [address] [facility] [id number], [place] [address]- 5482 Nov, UTI symptoms R39.9 ; Acute nasopharyngitis J00 and BMI 40.0- 44.9, adult Z68.41 [place] [address] [id number], [place] [address] 8642 Nov, [place] [address] [facility] [id number], [place] [address]- 4649 Nov, Yeast infection involving the vagina and surrounding area B37.3 [place] [address] [facility] [id number], [place] [address] 7260 Nov, Yeast infection involving the vagina and surrounding area B37.3 [place] [address] [facility] [id number], [place] [address]- 6775 Nov, Yeast infection involving the vagina and surrounding area B37.3 ; Body mass index (BMI) of 40.0-44.9 in adult Z68.41 and Morbid (severe) obesity due to excess calories E66.01 [place] [address] 22427- 1124 14 Oct, 2017 Abscess of groin, left L02.214 and Pre-diabetes R73.03 [facility] [address] 14065- 4376 September, Pre-diabetes R73.03 [place] [address] 51109- 8157 Aug, [place] [address] 51708- 2873 Jul, Bilateral low back pain without sciatica M54.5 [place] [address] 43588- 6943 Jun, [place] [address] 53273- 2902 Jun, [place] [address] 66942- 6399 Jun, [place] [address] 75195- 0875 May, [facility] [address] 88786- 9812 May, Ingrown left greater toenail L60.0 [facility] [address] 57919- 0266 May, [facility] [address] 05[address] -8330 May, Influenza A J10.1 ; Fever R50.9 and Body aches R52 [place] [address] 67292- 1673 Apr, [place] [address] 64142- 1704 Apr, [place] [id number] [place] [address] 58218- 5291 Apr, [place] [address] 82217- 8953 Apr, Abscess L02.91 and Obesity (BMI 30-39.9) E66.[address] 67451- 6225 Apr, [place] [address] 02227- 6191 Apr, [address] 04137- 3551 Mar, Acute non-recurrent maxillary sinusitis J01.[address] 67714- 1853 Feb, Heartburn R12 [address] 22845- 6642 Feb, Heartburn R12 ; Low back pain M54.5 ; Essential hypertension I10 ; Bilateral low back pain without sciatica M54.5 ; Anxiety F41.9 ; Pre-diabetes R73.03 ; Other obesity due to excess calories E66.09 ; Alternating constipation and diarrhea R19.8 ; Dyspepsia R10.13 ; Generalized abdominal pain R10.84 ; Rhinosinusitis J32.9 and Boil L02.92 [place] [id number] [place] [address] 63469- 6530 Jan, Heartburn R12 [place] [id number] [place] [address] 02436- 8389 Jan, [address] 43799- 4190 Jan, [place] [id number] [place] [address] 47580- 5707 Jan, Acute seasonal allergic rhinitis due to pollen J30.1 and Irritable bowel syndrome without diarrhea K58.9 [place] [address] 52391- 3373 Dec, Low back pain M54.5 and Acute cystitis with hematuria N30.01 [place] [address] 89721- 2375 Dec, Low back pain M54.5 and Acute cystitis with hematuria N30.01 [place] [address] 30941- 8859 Dec, Heartburn R12 ; Essential hypertension I10 ; Acute non- recurrent maxillary sinusitis J01.00 ; Bilateral low back pain without sciatica M54.5 ; Anxiety F41.9 ; Pre-diabetes R73.03 ; Pain in right foot M79.671 ; Pain in left foot M79.672 ; Other obesity due to excess calories E66.09 and Acute cystitis with hematuria N30.01 [place] [address] 86955- 7324 Dec, Bilateral low back pain without sciatica M54.5 ; Acute non- recurrent maxillary sinusitis J01.00 and Pre-diabetes R73.03 [place] [address] 18989- 2573 Oct, [facility] [id number] [place] [address] 26926 -2128 Aug, [facility] [address] [address] -[address]44 Aug, Acute vaginitis N76.0 ; Urinary frequency R35.0 ; Screen for STD (sexually transmitted disease) Z11.3 and Abscess L02.[address] 89595- 2571 Aug, Plantar wart of right foot B07.[address] 35270- 5036 Jul, Plantar wart of right foot B07.0 [facility] [id number] [place] [address] 17521- 1619 Jun, [place] [address] 58960- 5706 Jun, Heartburn R12 ; Essential hypertension I10 ; Anxiety F41.9 ; Folliculitis L73.9 and Plantar wart of right foot B07.0 [place] [address] 15780- 4859 Jun, [facility] [address] 67674 -0045 May, Low back pain M54.5 and Other chronic pain G89.29 [place] [address] 82696- 3014 May, [place] [address] 12365- 9245 May, [place] [id number] [place] [address] 66388- 1918 May, Heartburn R12 ; Bilateral low back pain without sciatica M54.5 ; Essential hypertension I10 ; Long-term use of high-risk medication Z79.899 ; Anxiety F41.9 ; Impacted cerumen of right ear H61.21 ; Folliculitis L73.9 ; High risk bisexual behavior Z72.53 and General medical exam Z00.00 [place] [id number] [place] [address] 69979- 5716 May, [place] [id number] [place] [address] 73811- 1207 May, [place] [id number] [place] [address] 04871- 5309 Mar, Acute nasopharyngitis J00 ; Acute intractable tension-type headache G44.201 and Cough R05 [place] [address] 71022- 9529 Jan, [facility] [address]65[address], [place] [address] 29 Jan, 2016 Abscess L02.91 [facility] [address]65[address], [place] [address] 10 Jan, 2016 Urinary urgency R39.15 and Urinary tract infection without hematuria, site unspecified N39.0 [facility] [id number] [place] [address] 32738- 1194 Jan, [facility] [id number] [place] [address] 88437- 9056 Jan, [facility] [id number] [place] [address] 31288- 1968 Dec, [facility] [id number] [place] [address] 86478- 5620 Dec, Dermatofibroma D23.9 [facility] [id number] [place] [address] 91639- 6802 September, [facility] [id number] [place] [address] 75466- 9292 Aug, [facility] [id number] [place] [address] 68101- 3846 Aug, Pain in left knee M25.562 ; Heartburn R12 ; Bilateral low back pain without sciatica M54.5 ; Essential hypertension I10 ; Ingrown left big toenail L60.0 ; Chronic pain G89.29 ; Irritable bowel syndrome with constipation K58.9 and Skin infection L08.9 [facility] [id number] [place] [address] 59721- 2210 Aug, [facility] [id number] [place] [address] 09849- 4349 Jul, [facility] [id number] [place] [address] 25052- 0821 Jun, [facility] [id number] [place] [address] 82068- 7593 Jun, [facility] [id number] [place] [address] 09469- 4037 Jun, [facility] [id number] [place] [address] 71550- 4037 Jun, [facility] [id number] [place] [address] 58510- 5769 Jun, Upper respiratory infection J06.9 ; Bilateral low back pain without sciatica M54.5 and Headache R51 [facility] [id number] [place] [address] 32536- 5624 May, [facility] [id number] [place] [address] 63548- 2350 Apr, Bilateral low back pain without sciatica M54.5 ; Upper respiratory infection J06.9 and Yeast dermatitis B37.2 [facility] [id number] [place] [address] 80430- 4315 Apr, [facility] [id number] [place] [address] 46928- 5097 Apr, [facility] [id number] [place] [address] 35511- 6439 Feb, [facility] [id number] [place] [address] 49752- 2002 Feb, [facility] [id number] [place] [address] 18816- 4299 Feb, [facility] [id number] [place] [address] 54125- 0443 Feb, Essential hypertension I10 ; Heartburn R12 ; Irritable bowel syndrome without diarrhea K58.9 ; Bilateral low back pain, with sciatica presence unspecified M54.5 and Upper respiratory infection J06.9 [facility] [id number] [place] [address] 13693- 0704 Feb, [facility] [id number] [place] [address] 77585- 8827 Feb, Generalized anxiety disorder F41.1 and Grief F43.20 [facility] [id number] [place] [address] 198379- 1714 Jan, [place] [id number] [place] [address] 643652- 9631 Jan, Back pain 724.5 ; Upper respiratory infection 465.9 ; HTN ( hypertension) 401.9 and Dyspepsia 536.8 [place] [id number] [place] [address] 73456- 3231 Dec, [place] [id number] [place] [address] 63514- 1870 Nov, Back pain 724.5 ; Abdominal pain, bilateral lower quadrant 789.03 ; GERD (gastroesophageal reflux disease) 530.81 ; Upper respiratory infection 465.9 ; Dysuria 788.1 and HTN (hypertension) 401.9 [place] [id number] [place] [address] 80881- 5366 Nov, [place] [id number] [place] [address] 04018- 8751 Nov, [place] [id number] [place] [address] 57953- 9684 Nov, [facility] [id number] [place] [address] 84878- 2739 Nov, Cough 786.2 [place] [id number] [place] [address] 93118- 9956 Nov, Cough 786.2 [place] [id number] [place] [address] 33559- 9559 Oct, Unspecified episodic mood disorder 296.90 and Anxiety disorder, unspecified 300.00 [place] [id number] [place] [address] 50625- 2334 Oct, Abdominal pain, left upper quadrant 789.02 ; Essential hypertension, benign 401.1 ; Irritable bowel syndrome 564.1 ; Abscess 682.9 ; Heartburn 787.1 ; Acute sinusitis, unspecified 461.9 ; Muscle spasm of back 724.8 ; Cough 786.2 and Skin tag 701.9 [facility] [id number] [place] [address] 51584- 5298 September, [facility] [id number] [place] [address] [id number]- 6773 September, [facility] [id number] [place] [address] 94650- 0138 September, [facility] [id number] [place] [address] 03078- 0803 Aug, [facility] [id number] [place] [address] 71328- 6021 Aug, [facility] [address] [id number] [address]- 4667 Jul, [facility] [id number] [place] [address] 27253- 8808 Jul, [facility] [address], [place] [address]- 4693 Jul, [facility] [address], [place] [address]- 9366 Jul, [facility] [address], [place] [address]- 5529 Jul, [facility] [id number] [place] [address] 933858- 3903 Jul, [facility] [address] [address]- 0252 Jul, [facility] [address] [address]- 2710 Jul, [facility] [place] [facility] [address] [id number] [place] [address]- 7257 Jul, [facility] [place] [facility] [address] [id number] [place] [address]- 5039 Jul, [facility] [place] [facility] [address] [id number] [place] [address]- 5980 Jul, [facility] [place] [facility] [address] [id number] [place] [address]- 0183 Jul, [facility] [place] [facility] [address] [id number] [place] [address]- 3172 Jul, [facility] [place] [facility] [address] [id number] [place] [address]- 4374 Jul, [facility] [place] [facility] [address] [id number] [place] [address]- 2367 Jul, [facility] [place] [facility] [address] [id number] [place] [address]- 6332 Jul, [facility] [place] [facility] [address] [id number] [place] [address]- 5112 Jul, [facility] [place] [facility] [address] [id number] [place] [address]- 0402 Jun, [facility] [place] [facility] [address] [id number] [place] [address]- 8026 Jun, [facility] [place] [facility] [address] [id number], [place] [address]- 7593 Jun, 2014 [facility] [place] [facility] [address] [id number] [place] [address]- 3488 Jun, [facility] [place] [facility] [address] [id number] [place] [address]- 5497 Jun, 2014 [facility] [place] [facility] [address] [id number] [place] [address]- 0103 Jun, 2014 [facility] [place] [facility] [address] [id number] [place] [address]- 9316 Jun, [facility] [address] [id number] [place] 3806 Jun, [facility] [address] [id number] [place] [address]- 6345 Apr, [facility] [address] [id number] [place] [address]- 9957 Apr, [facility] [address] [id number] [place] [address]- 2787 Apr, [facility] [address] [id number] [place] [address]- 9080 Apr, [facility] [address] [id number] [place] [address]- 2280 Apr, [facility] [address] [id number] [place] [address]- 2734 Apr, [facility] [address] [id number] [place] [address]- 5383 Apr, [facility] [address] [id number] [place] [address]- 8638 Apr, [facility] [address] [id number] [place] [address]- 3153 Apr, [facility] [place] [facility] [address] [id number] [place] [address]- 1212 Apr, [facility] [place] [facility] [address] [id number] [place] [address]- 9497 Apr, [facility] [place] [facility] [address] [id number] [place] [address]- 3155 Apr, [facility] [place] [facility] [address] [id number] [place] [address]- 1725 Apr, [facility] [place] [facility] [address] [id number] [place] [address]- 0455 Apr, [facility] [place] [facility] [address] [id number] [place] 2169 Apr, [facility] [place] [facility] [address] [id number] [place] [address]- 5608 Feb, [facility] [place] [facility] [address] [id number] [place] [address]- 9125 Feb, [facility] [place] [facility] [address] [id number] [place] [address]- 7107 Feb, [facility] [place] [facility] [address] [id number] [place] 4062 Feb, [facility] [place] [facility] [address] [id number] [place] [address]- 5165 Feb, [facility] [place] [facility] [address] [id number] [place] [address]- 4873 Feb, [facility] [place] [facility] [address] [id number] [place] [address]- 1698 Jan, [facility] [place] [facility] [address] [id number] [place] [address]- 9812 Jan, [facility] [place] [facility] [address] [id number] [place] [address]- 7441 Jan, [facility] [place] [facility] [address] [id number] [place] [address]- 7403 Jan, [facility] [place] [facility] [address] [id number], [place] [address]- 5392 Jan, 2013 [facility] [place] [facility] [address] [id number] [place] [address]- 1765 Jan, [facility] [place] [facility] [address] [id number] [place] [address]- 7657 Dec, [facility] [place] [facility] [address] [id number] [place] 4917 Dec, [facility] [place] [facility] [address] [id number], [place] [address]- 9572 Dec, [facility] [place] [facility] [address] [id number] [place] [address]- 1893 Dec, [facility] [place] [facility] [address] [id number] [place] [address]- 1360 Nov, [facility] [place] [facility] [address] [id number] [place] [address]- 6513 Nov, [facility] [place] [facility] [address] [id number] [place] [address]- 5859 Nov, [facility] [place] [facility] [address] [id number] [place] [address]- 8201 Nov, [facility] [place] [facility] [address] [id number] [place] [address]- 9359 Nov, [facility] [place] [facility] [address] [id number] [place] [address]- 9463 Nov, [facility] [place] [facility] [address] [id number] [place] [address]- 6836 Nov, [facility] [place] [facility] [address] [id number] [place] [address] Nov, [facility] [place] [facility] [address] [id number] [place] [address] Oct, [facility] [place] [facility] [address] [id number] [place] [address] Oct, [facility] [place] [facility] [address] [id number] [place] [address] Oct, [facility] [place] [facility] [address] [id number] [place] [address] Oct, [facility] [place] [facility] [address] [id number] [place] [address] 1196 Oct, [facility] [place] [facility] [address] [id number] [place] [address] Oct, [facility] [place] [facility] [address] [id number] [place] [address] 26 Oct, 2013 [facility] [place] [facility] [address] [id number] [place] [address] Oct, [facility] [place] [facility] [address] [id number] [place] [address] Oct, [facility] [place] [facility] [address] [id number] [place] [address] Oct, [facility] [place] [facility] [address] [id number] [place] [address]1 Oct, [facility] [place] [facility] [address] [id number] [place] [address] Oct, [facility] [place] [facility] [address] [id number] [place] [address]- [address] 18 Oct, 2013 [facility] [place] [facility] [address] [id number] [place] [address] 18 Oct, 2013 [facility] [place] [facility] [address] [id number] [place] [address] 17 Oct, 2013 [facility] [place] [facility] [address] [id number] [place] [address] 17 Oct, 2013 [facility] [place] [facility] [address] [id number] [place] [address]- [address] 16 Oct, 2013 [facility] [place] [facility] [address] [id number] [place] [address]- [address] 16 Oct, 2013 [facility] [place] [facility] [address] [id number] [place] [address]- [address]70 13 Oct, 2013 [facility] [place] [facility] [address] [id number] [place] [address]- [address] 13 Oct, 2013 [facility] [place] [facility] [address] [id number] [place] [address]- 9716 11 Oct, 2013 [facility] [place] [facility] [address] [id number] [place] [address] 8719 Oct, [facility] [place] [facility] [address] [id number] [place] [address]- 40[address] Oct, [facility] [place] [facility] [address] [id number] [place] [address]- [address]31 Oct, [facility] [place] [facility] [address] [id number] [place] [address]- [address] Oct, [facility] [place] [facility] [address] [id number] [place] [address]- [address]180 Oct, [facility] [place] [facility] [address] [id number] [place] [address] Oct, [facility] [place] [facility] [address] [id number] [place] [address]- [address] Oct, [facility] [place] [facility] [address] [id number] [place] [address]- [address]34 Oct, [facility] [place] [facility] [address] [id number] [place] [address] 1511 Oct, [facility] [place] [facility] [address] [id number] [place] [address]- [address] September, [facility] [place] [facility] [address] [id number] [place] [address] September, [facility] [place] [facility] [address] [id number] [place] [address] September, [facility] [place] [facility] [address] [id number] [place] [address] September, [facility] [place] [facility] [address] [id number] [place] [address] September, [facility] [place] [facility] [address] [id number] [place] [address] 60[address] September, [facility] [place] [facility] [address] [id number] [place] [address] September, [facility] [place] [facility] [address] [id number] [place] [address] September, [facility] [address] [id number] [place] [address] September, [facility] [place] [facility] [address] [id number] [place] [address]- 27[address] September, [facility] [place] [facility] [address] [id number] [place] [address] September, [facility] [place] [facility] [address] [id number] [place] [address]- 1488 September, [facility] [place] [facility] [address] [id number] [place] [address] September, [facility] [place] [facility] [address] [id number] [place] [address] September, [facility] [address] [id number] [place] [address] September, [facility] [place] [facility] [address] [id number] [place] [address] 3[address] September, [facility] [place] [facility] [address] [id number] [place] [address] 1539 September, [facility] [place] [facility] [address] [id number] [place] [address] 08[address] September, [facility] [place] [facility] [address] [id number] [place] [address] 75[address] Aug, [facility] [place] [facility] [address] [id number] [place] [address] 8202 Aug, [facility] [place] [facility] [address] [id number] [place] [address]- 6139 Aug, [facility] [place] [facility] [address] [id number] [place] [address]- 7620 Aug, [facility] [place] [facility] [address] [id number] [place] [address]- 1095 Aug, [facility] [place] [facility] [address] [id number] [place] [address] 9398 Aug, [facility] [place] [facility] [address] [id number] [place] [address]- 0782 Jul, [facility] [place] [facility] [address] [id number] [place] [address]- 9018 Jul, [facility] [place] [facility] [address] [id number] [place] [address]- 4877 Jul, [facility] [place] [facility] [address] [id number] [place] [address] 4401 Jul, [facility] [place] [facility] [address] [id number] [place] [address]- 4110 Jun, [facility] [place] [facility] [address] [facility] [id number] [place] [address]- 8381 Jun, [facility] [place] [facility] [address] [id number] [place] [address]- 1378 Jun, [facility] [place] [facility] [address] [id number] [place] [address]- 7725 Jun, [facility] [place] [facility] [address] [facility] [id number] [place] [address]- 2877 Mar, [facility] [place] [facility] [address] [id number] [place] [address]- 6865 14 Mar, 2013 [facility] [place] [facility] [address] [id number] [address] 13 Mar, 2013 [facility] [place] [facility] [address] [id number] [place] [address]- 9154 Mar, [facility] [place] [facility] [address] [id number] [place] [address]- 2039 Feb, [facility] [place] [facility] [address] [id number] [place] [address]- 1112 Feb, [facility] [place] [facility] [address] [id number] [place] [address]- 1871 Feb, [facility] [place] [facility] [address] [id number] [place] [address]- 4206 Jan, [facility] [place] [facility] [address] [id number] [place] [address]- 9659 Jan, [facility] [place] [facility] [address] [id number] [place] [address]- 8932 Jan, [facility] [place] [facility] [address] [id number] [place] [address]- 2307 Jan, [facility] [place] [facility] [address] [id number] [place] [address]- 8225 Dec, [facility] [place] [facility] [address] [id number] [place] [address]- 2787 Dec, [facility] [place] [facility] [address] [id number] [place] [address]- 4915 Dec, [facility] [place] [facility] [address] [id number] [place] [address]- 8739 Dec, [facility] [place] [facility] [address] [id number] [place] [address]- 4838 Nov, [facility] [place] [facility] [address] [id number] [place] [address]- 5349 Nov, [facility] [place] [facility] [address] [id number] [place] [address]- 6592 Nov, [facility] [place] [facility] [address] [id number] [place] [address]- 3272 Nov, [facility] [place] [facility] [address] [id number] [place] [address]- 7775 Nov, [facility] [place] [facility] [address] [id number] [place] [address]- 2185 Nov, [facility] [place] [facility] [address] [id number] [place] [address]- 9680 Oct, [facility] [place] [facility] [address] [id number] [place] [address]- 3748 27 Oct, 2012 [facility] [address] [id number] [place] [address]- 8803 25 Oct, 2012 [facility] [place] [facility] [address] [id number] [place] [address]- 4567 Oct, [facility] [address] [id number] [place] [address]- 3630 17 Oct, 2012 [facility] [place] [facility] [address] [id number] [place] [address]- 9064 16 Oct, 2012 [facility] [address] [id number] [place] [address]- 8046 14 Oct, 2012 [facility] [place] [facility] [address] [id number] [place] [address]- 4837 13 Oct, 2012 [facility] [place] [facility] [address] [id number] [place] [address]- 9713 Oct, [facility] [address] [id number] [place] [address]- 7270 07 Oct, 2012 [facility] [place] [facility] [address] [id number] [place] [address]- 4502 September, [facility] [place] [facility] [address] [id number] [place] [address]- 5720 September, [facility] [place] [facility] [address] [id number] [place] [address]- 2911 September, [facility] [place] [facility] [address] [id number] [place] [address]- 0275 Aug, [facility] [place] [facility] [address] [id number] [place] [address]- 8094 Aug, [facility] [place] [facility] [address] [id number] [place] [address]- 6616 Aug, [facility] [place] [facility] [address] [id number] [place] [address]- 8022 Aug, [facility] [address] [id number] [place] [address]- 6574 30 Jul, 2012 [facility] [place] [facility] [address] [id number] [place] [address]- 3176 Jul, [facility] [place] [facility] [address] [id number] [place] [address]- 0077 Jul, [facility] [place] [facility] [address] [id number] [place] [address]- 9870 Jul, [facility] [address] [id number] [place] [address]- 3556 Jul, [facility] [place] [facility] [address] [id number] [place] [address]- 0479 Jul, [facility] [place] [facility] [address] [id number] [place] [address]- 8249 May, [facility] [place] [facility] [address] [id number] [place] [address]- 7490 May, [facility] [place] [facility] [address] [id number] [place] [address]- 3480 May, [facility] [place] [facility] [address] [id number] [place] [address]- 6878 May, [facility] [place] [facility] [address] [id number] [place] [address]- 3514 May, [facility] [place] [facility] [address] [id number] [place] [address]- 1919 May, [facility] [place] [facility] [address] [id number] [place] [address]- 1851 May, [facility] [place] [facility] [address] [id number] [place] [address]- 0810 18 May, 2012 [facility] [place] [facility] [address] [id number] [place] [address]- 7292 17 May, 2012 [facility] [place] [facility] [address] [id number] [place] [address]- 6736 17 May, 2012 [facility] [place] [facility] [address] [id number] [place] [address]- 8680 May, [facility] [place] [facility] [address] [id number] [place] [address]- 6681 Apr, [facility] [place] [facility] [address] [id number] [place] [address]- 1714 Apr, [facility] [place] [facility] [address] [id number] [place] [address]- 1871 Apr, [facility] [place] [facility] [address] [id number] [place] [address]- 2639 Apr, [facility] [place] [facility] [address] [id number] [place] [address]- 9350 Apr, [facility] [place] [facility] [address] [id number] [place] [address]- 8942 Apr, [facility] [place] [facility] [address] [id number] [place] [address]- 2509 Mar, [facility] [place] [facility] [address] [id number] [place] [address]- 4336 Mar, [facility] [place] [facility] [address] [id number] [place] [address]- 1094 Mar, [facility] [place] [facility] [address] [id number] [place] [address]- 0245 Mar, [facility] [place] [facility] [address] [id number] [place] [address]- 2226 Mar, [facility] [place] [facility] [address] [id number] [place] [address]- 9252 Mar, [facility] [place] [facility] [address] [id number] [place] [address]- 8982 Mar, [facility] [place] [facility] [address] [id number] [place] [address]- 8850 Mar, [facility] [place] [facility] [address] [id number] [place] [address]- 9602 23 Feb, 2011 [facility] [place] [facility] [address] [id number] [place] [address]- 4133 23 Feb, 2012 [facility] [place] [facility] [address] [id number] [place] [address]- 1486 16 Feb, 2012 [facility] [place] [facility] [address] [id number] [place] [address]- 1524 15 Feb, 2012 [facility] [place] [facility] [address] [id number] [place] [address]- 5894 15 Feb, 2012 [facility] [place] [facility] [address] [id number] [place] [address]- 7178 13 Feb, 2012 [facility] [place] [facility] [address] [id number] [place] [address]- 5457 Feb, [facility] [place] [facility] [address] [id number] [place] [address]- 6108 Feb, [facility] [place] [facility] [address] [id number] [place] [address]- 5281 Feb, [facility] [place] [facility] [address] [id number] [place] [address]- 5355 Feb, [facility] [place] [facility] [address] [id number] [place] [address]- 3239 Feb, [facility] [place] [facility] [address] [id number] [place] [address]- 7025 Feb, [facility] [place] [facility] [address] [id number] [place] [address]- 0366 Feb, [facility] [place] [facility] [address] [id number] [place] [address]- 5307 Feb, [facility] [place] [facility] [address] [id number] [place] [address]- 0193 Feb, [facility] [place] [facility] [address] [id number] [place] [address]- 8982 Feb, [facility] [place] [facility] [address] [id number] [place] [address]- 7145 Feb, [facility] [place] [facility] [address] [id number] [place] [address]- 6596 Feb, [facility] [place] [facility] [address] [id number] [place] [address]- 9366 19 Jan, 2012 [facility] [place] [facility] [address] [id number] [place] [address]- 5136 13 Jan, 2012 [facility] [place] [facility] [address] [id number] [place] [address]- 3563 11 Jan, 2012 [facility] [place] [facility] [address] [id number] [place] [address]- 3628 Jan, [facility] [place] [facility] [address] [id number] [place] [address]- 3224 05 Jan, 2012 [facility] [place] [facility] [address] [id number] [place] [address]- 1871 Dec, [facility] [place] [facility] [address] [id number] [place] [address]- 0321 Dec, [facility] [place] [facility] [address] [id number] [place] [address]- 5911 Dec, [facility] [place] [facility] [address] [id number] [place] [address]- 6567 Dec, [facility] [place] [facility] [address] [id number] [place] [address]- 9881 Dec, [facility] [place] [facility] [address] [id number] [place] [address]- 8932 Dec, [facility] [place] [facility] [address] [id number] [place] [address]- 3516 Nov, [facility] [place] [facility] [address] [id number] [place] [address]- 5293 Nov, [facility] [place] [facility] [address] [id number] [place] [address]- 2340 Nov, [facility] [address] [id number] [place] [address]- 4760 Nov, [facility] [address] [id number] [place] [address]- 0686 Nov, [facility] [address] [id number] [place] [address]- 9608 Oct, [facility] [address] [id number] [place] [address]- 2127 Oct, [facility] [address] [id number] [place] [address]- 1295 Oct, [facility] [address] [id number] [place] [address]- 6137 September, [facility] [address] [id number] [place] [address]- 7387 September, [facility] [address] [id number] [place] [address]- 4423 September, [facility] [address] [id number] [place] [address]- 4508 September, [facility] [address] [id number] [place] [address]- 0428 September, [facility] [address] [id number] [place] [address]- 7299 September, [facility] [address] [id number] [place] [address]- 9397 Aug, [facility] [place] [facility] [address] [id number] [place] [address]- 9834 Aug, [facility] [place] [facility] [address] [id number] [place] [address]- 0189 Aug, [facility] [address] [id number] [place] [address]- 0599 Jun, [facility] [address] [id number] [place] [address]- 3757 Jun, [facility] [address] [id number] [place] [address]- 7876 Jun, [facility] [address] [id number] [place] [address]- 7395 Jun, [facility] [address] [id number] [place] [address]- 9472 May, [facility] [address] [id number] [place] [address]- 6002 May, [facility] [address] [id number] [place] [address]- 4914 May, [facility] [address] [id number] [place] [address]- 7067 May, [facility] [address] [id number] [place] [address]- 2690 May, [facility] [address] [id number] [place] [address]- 8079 Apr, [facility] [address] [id number] [place] [address]- 4121 Apr, [facility] [address] [id number] [place] [address]- 6139 Apr, [facility] [place] [facility] [address] [id number], [place] [address]- 4318 Apr, [facility] [place] [facility] [address] [id number] [place] [address]- 8740 Apr, [facility] [place] [facility] [address] [id number] [address]9 16 Apr, 2011 [facility] [place] [facility] [address] [id number] [place] 1849 16 Apr, 2011 [facility] [place] [facility] [address] [id number] [place] [address]- 5474 Mar, [facility] [place] [facility] [address] [id number] [place] [address]- 8642 Mar, [facility] [place] [facility] [address] [id number] [place] [address]- 6696 Mar, [facility] [place] [facility] [address] [id number] [place] [address]- 2803 Feb, [facility] [place] [facility] [address] [id number] [place] [address]- 4262 Feb, [facility] [place] [facility] [address] [id number] [place] [address]- 6318 Feb, [facility] [place] [facility] [address] [id number] [place] [address]- 3657 Feb, [facility] [place] [facility] [address] [id number] [place] [address]- 5707 Feb, [facility] [place] [facility] [address] [id number] [place] [address]- 1083 Feb, [facility] [place] [facility] [address] [id number] [place] [address]- 3949 Jan, [facility] [place] [facility] [address] [id number] [place] [address]- 4653 Jan, [facility] [place] [facility] [address] [id number] [place] [address]- 8659 September, [facility] [place] [facility] [address] [id number] [place] [address]- 2248 Jun, [facility] [place] [facility] [address] [id number] [place] [address]- 8522 Apr, [facility] [place] [facility] [address] [id number] [place] [address]161 Apr, [facility] [place] [facility] [address] [id number] [place] [address]28 Apr, [facility] [id number] [address]- 2417 Apr, [facility] [id number] [place] [address]- 5918 Apr, [facility] [id number] 4155 Mar, [facility] [id number] [place] [address] 417702- 5579 Mar, [facility] [id number] [place] [address] 780892- 4188 Mar, [facility] [id number] [place] [address] 231509- 2718 Mar, [facility] [id number] [place] [address] 240598- 8081 Feb, [facility] [id number] [place] [address] 750337- 6063 Jan, [facility] [id number] [place] [address] 17856- 8011 Mar, [facility] [id number] [place] [address] 81342- 7028 Jan, [facility] [id number] [place] [address] 03010- 0629 Oct, [facility] [id number] [address]143 Apr, IMMUNIZATIONS No Known Immunizations SOCIAL HISTORY Never Assessed REASON FOR VISIT Annual physical (female)- states she feels like her vagina is constantly ''wet' ' also having a lot of itching, it hurts to wipe- Alva Anderson RN, Pt has complaints of ear pain and wants something cheaper than actos- told pt this is a wwe PLAN OF CARE Activity Details Follow Up has [facility] care appt scheduled Reason: Pending Test Mammogram, Bilateral Screening VITAL SIGNS Height 66 in 2018-01-30 Weight 265 lbs 2018-01-30 Temperature 98.7 degrees Fahrenheit 2018-01-30 Heart Rate 78 bpm 2018-01-30 Respiratory Rate 18 2018-01-30 BMI 42.77 kg/m2 2018-01-30 Blood pressure systolic 142 mmHg 2018-01-30 Blood pressure diastolic 72 mmHg 2018-01-30 MEDICATIONS Medication Instructions Dosage Frequency Start Date End Date Duration Status Diflucan 150 MG Orally Once a day 1 tablet 24h Jan, Jan, 10 day(s) Active Omeprazole 20 mg Orally Once a day 1 capsule 24h Active Flexeril 10 mg Orally 2 times a day s needed 1 tablet 28 Active Actos 30 MG Orally Once a day 1/2 tablet 24h 60 Active Lisinopril 20 MG TAKE ONE TABLET BY MOUTH ONCE DAILY 30 Active RESULTS No Results PROCEDURES Procedure Date Ordered Result Body Site URINALYSIS, AUTO, W/O SCOPE Jan 30, 2018 URINE CULTURE/COLONY COUNT Jan 30, 2018 Bacterial Vaginosis In House Jan 30, 2018 SPECIMEN HANDLING Jan 30, 2018 CULTURE, BACTERIA, OTHER Jan 30, 2018 INSTRUCTIONS MEDICATIONS ADMINISTERED No Known Medications [...]
--- OUTSIDE RECORDS SUMMARY | 2018-03-22 21:38 | XMS REPORT ---
Author Author MCLEANANTONELLA MelendrezELE [facility] Address [address] [place] [address] Care Team Providers Care English As A Second Language Instructor Name Role Phone JEVON MCLEAN Unavailable PROBLEMS Type Condition ICD9-CM Code VKQ61-QS Code Onset Dates Condition Status SNOMED Code Problem Hypertriglyceridemia E78.1 Active 301406607 Problem Essential hypertension I10 Active 25089037 Problem Irritable bowel syndrome without diarrhea K58.9 Active 36483771 Problem Morbid (severe) obesity due to excess calories E66.01 Active 193723953 Problem Body mass index (BMI) of 40.0-44.9 in adult Z68.41 Active 974421660 Problem Anxiety F41.9 Active 47209531 Problem Bilateral low back pain without sciatica M54.5 Active 828462117 Problem Alternating constipation and diarrhea R19.8 Active 942005339 Problem Pre-diabetes R73.03 Active 362413217 ALLERGIES No Information ENCOUNTERS Encounter Location Date Diagnosis [facility] [id number] [place] [address] 52883- 4075 Jan, [facility] [id number] [place] [address] 66495- 2137 Jan, [facility] [id number] [place] [address] 93397- 5750 Jan, BMI 40.0-44.9, adult Z68.41 ; Pre-diabetes R73.03 ; Essential hypertension I10 ; Morbid (severe) obesity due to excess calories E66.01 ; Bilateral low back pain without sciatica M54.5 and Heartburn R12 [facility] [id number] [place] [address] 48990- 2699 19 Jan, 2018 History of UTI Z87.440 ; Well woman exam with routine gynecological exam Z01.419 ; Screening for breast cancer Z12.31 ; Candidal vaginitis B37.3 and BMI 40.0-44.9, adult Z68.41 [facility] [address] [address]- 0166 05 Jan, 2018 [facility] [address] [address] Jan, Dysuria R30.0 ; Acute cystitis with hematuria N30.01 ; Yeast infection B37.9 and BMI 40.0-44.9, adult Z68.41 [facility] [address] [address]- 9134 Dec, [place] [id number] [place] [address] 32989- 9557 Dec, [place] [id number] [place] [address] 07004- 7491 Nov, History of UTI Z87.440 [place] [id number] [place] [address] 91481- 9794 Nov, UTI symptoms R39.9 ; Acute nasopharyngitis J00 and BMI 40.0- 44.9, adult Z68.41 [facility] [address] [address]- 3622 Nov, [place] [address] [address]- 4432 Nov, Yeast infection involving the vagina and surrounding area B37.3 [facility] [address] [address]- 0319 Nov, Yeast infection involving the vagina and surrounding area B37.3 [place] [address] [address]- 7966 Nov, Yeast infection involving the vagina and surrounding area B37.3 ; Body mass index (BMI) of 40.0-44.9 in adult Z68.41 and Morbid (severe) obesity due to excess calories E66.01 [facility] [id number] [place] [address] 07032- 5174 14 Oct, 2017 Abscess of groin, left L02.214 and Pre-diabetes R73.03 [facility] [address] 19091- 5767 September, Pre-diabetes R73.03 [facility] [address] 58555- 6512 Aug, [facility] [address] 72423- 1668 Jul, Bilateral low back pain without sciatica M54.5 [facility] [address] 00720- 9494 Jun, [facility] [address] 01590- 5500 Jun, [facility] [address] 00589- 7684 Jun, [facility] [address] 42376- 8847 May, [facility] [address] 10605- 8299 May, Ingrown left greater toenail L60.0 [facility] [address] 73744- 5565 May, [facility] [address] 27211 -0827 May, Influenza A J10.1 ; Fever R50.9 and Body aches R52 [facility] [address] 79366- 1202 Apr, [facility] [address] 81819- 2786 Apr, [facility] [address] 87451- 8524 Apr, [place] [id number] [place] [address] 55315- 7591 Apr, Abscess L02.91 and Obesity (BMI 30-39.9) E66.9 [place] [id number] [place] [address] 63822- 8838 Apr, [place] [address] 70165- 1331 Apr, [place] [address] 71652- 2370 Mar, Acute non-recurrent maxillary sinusitis J01.00 [place] [address] 97514- 5157 Feb, Heartburn R12 [facility] [id number] [place] [address] 34568- 5039 Feb, Heartburn R12 ; Low back pain M54.5 ; Essential hypertension I10 ; Bilateral low back pain without sciatica M54.5 ; Anxiety F41.9 ; Pre-diabetes R73.03 ; Other obesity due to excess calories E66.09 ; Alternating constipation and diarrhea R19.8 ; Dyspepsia R10.13 ; Generalized abdominal pain R10.84 ; Rhinosinusitis J32.9 and Boil L02.92 [place] [id number] [place] [address] 29098- 5153 Jan, Heartburn R12 [place] [id number] [place] [address] 87159- 8630 Jan, [place] [id number] [place] [address] 15981- 6351 Jan, [place] [id number] [place] [address] 02412- 8278 Jan, Acute seasonal allergic rhinitis due to pollen J30.1 and Irritable bowel syndrome without diarrhea K58.9 [place] [address] 78481- 1331 Dec, Low back pain M54.5 and Acute cystitis with hematuria N30.01 [facility] [id number] [place] [address] 73482- 9840 Dec, Low back pain M54.5 and Acute cystitis with hematuria N30.01 [place] [address] 57630- 8438 Dec, Heartburn R12 ; Essential hypertension I10 ; Acute non- recurrent maxillary sinusitis J01.00 ; Bilateral low back pain without sciatica M54.5 ; Anxiety F41.9 ; Pre-diabetes R73.03 ; Pain in right foot M79.671 ; Pain in left foot M79.672 ; Other obesity due to excess calories E66.09 and Acute cystitis with hematuria N30.01 [place] [address] 45510- 2980 Dec, Bilateral low back pain without sciatica M54.5 ; Acute non- recurrent maxillary sinusitis J01.00 and Pre-diabetes R73.03 [facility] [id number] [place] [address] 55039- 2590 Oct, [facility] [address] 17275 -6781 Aug, [facility] [id number] [place] [address] 21069 -4644 Aug, Acute vaginitis N76.0 ; Urinary frequency R35.0 ; Screen for STD (sexually transmitted disease) Z11.3 and Abscess L02.91 [place] [id number] [place] [address] 64698- 6913 Aug, Plantar wart of right foot B07.0 [place] [address] 77732- 8559 Jul, Plantar wart of right foot B07.0 [place] [address] 24845- 5936 Jun, [facility] [id number] [place] [address] 11928- 1623 Jun, Heartburn R12 ; Essential hypertension I10 ; Anxiety F41.9 ; Folliculitis L73.9 and Plantar wart of right foot B07.0 [place] [id number] [place] [address] 98371- 2202 Jun, [facility] [address] 36827 -4163 May, Low back pain M54.5 and Other chronic pain G89.29 [place] [address] 59074- 8277 May, [place] [address] 24908- 5028 May, [place] [address] 77565- 1372 May, Heartburn R12 ; Bilateral low back pain without sciatica M54.5 ; Essential hypertension I10 ; Long-term use of high-risk medication Z79.899 ; Anxiety F41.9 ; Impacted cerumen of right ear H61.21 ; Folliculitis L73.9 ; High risk bisexual behavior Z72.53 and General medical exam Z00.00 [place] [id number] [place] [address] 01068- 9660 May, [facility] [id number] [place] [address] 67895- 3489 May, [place] [address] 65322- 3325 Mar, Acute nasopharyngitis J00 ; Acute intractable tension-type headache G44.201 and Cough R05 [facility] [id number] [place] [address] 43218- 7792 Jan, [facility] [address] [place] [address]81 29 Jan, 2016 Abscess L02.91 [facility] [address] [address]49 10 Jan, 2016 Urinary urgency R39.15 and Urinary tract infection without hematuria, site unspecified N39.0 [facility] [address] [address]- 8080 Jan, [facility] [id number] [place] [address] 36709- 0486 Jan, [facility] [id number] [place] [address] 62217- 4852 Dec, [facility] [id number] [place] [address] 50334- 1144 Dec, Dermatofibroma D23.9 [facility] [id number] [place] [address] 95389- 5032 September, [facility] [id number] [place] [address] 13246- 5067 Aug, [facility] [id number] [place] [address] 39456- 4480 Aug, Pain in left knee M25.562 ; Heartburn R12 ; Bilateral low back pain without sciatica M54.5 ; Essential hypertension I10 ; Ingrown left big toenail L60.0 ; Chronic pain G89.29 ; Irritable bowel syndrome with constipation K58.9 and Skin infection L08.9 [facility] [address] [address]- 9193 Aug, [facility] [id number] [place] [address] 10001- 9504 Jul, [facility] [id number] [place] [address] 59899- 0374 Jun, [facility] [id number] [place] [address] 87464- 7058 Jun, [facility] [id number] [place] [address] 39390- 3827 Jun, [facility] [id number] [place] [address] 00752- 9721 Jun, [facility] [id number] [place] [address] 45469- 1231 Jun, Upper respiratory infection J06.9 ; Bilateral low back pain without sciatica M54.5 and Headache R51 [facility] [id number] [place] [address] 28559- 1896 May, [facility] [address] 02670- 5925 Apr, Bilateral low back pain without sciatica M54.5 ; Upper respiratory infection J06.9 and Yeast dermatitis B37.2 [facility] [id number] [place] [address] 04888- 7351 Apr, [facility] [id number] [place] [address] 13694- 4115 Apr, [facility] [id number] [place] [address] 50689- 0680 Feb, [facility] [id number] [place] [address] 46542- 8936 Feb, [facility] [id number] [place] [address] 84185- 5385 Feb, [facility] [id number] [place] [address] 11011- 6915 Feb, Essential hypertension I10 ; Heartburn R12 ; Irritable bowel syndrome without diarrhea K58.9 ; Bilateral low back pain, with sciatica presence unspecified M54.5 and Upper respiratory infection J06.9 [facility] [id number] [place] [address] 46584- 7855 Feb, [facility] [id number] [place] [address] 35936- 3611 Feb, Generalized anxiety disorder F41.1 and Grief F43.20 [place] [id number] [place] [address] 565782- 6273 Jan, [place] [id number] [place] [address] 20658- 4854 Jan, Back pain 724.5 ; Upper respiratory infection 465.9 ; HTN ( hypertension) 401.9 and Dyspepsia 536.8 [place] [id number] [place] [address] 05222- 1815 Dec, [place] [id number] [place] [address] 63225- 5506 Nov, Back pain 724.5 ; Abdominal pain, bilateral lower quadrant 789.03 ; GERD (gastroesophageal reflux disease) 530.81 ; Upper respiratory infection 465.9 ; Dysuria 788.1 and HTN (hypertension) 401.9 [place] [id number] [place] [address] 96126- 1555 Nov, [place] [id number] [place] [address] 17544- 6046 Nov, [place] [id number] [place] [address] 83521- 7810 Nov, [place] [id number] [place] [address] 85556- 9198 Nov, Cough 786.2 [place] [id number] [place] [address] 42076- 3150 Nov, Cough 786.2 [facility] [id number] [place] [address] 75720- 5253 Oct, Unspecified episodic mood disorder 296.90 and Anxiety disorder, unspecified 300.00 [place] [id number] [place] [address] 77665- 8826 Oct, Abdominal pain, left upper quadrant 789.02 ; Essential hypertension, benign 401.1 ; Irritable bowel syndrome 564.1 ; Abscess 682.9 ; Heartburn 787.1 ; Acute sinusitis, unspecified 461.9 ; Muscle spasm of back 724.8 ; Cough 786.2 and Skin tag 701.9 [facility] [address] [place] [address]- 1586 September, [facility] [id number] [place] [address] 43758- 7935 September, [facility] [id number] [address]- 3279 September, [facility] [id number] [place] [address] 45430- 7008 Aug, [facility] [id number] [address]- 4110 Aug, [facility] [id number] [place] [address] 61737219- 4652 Jul, [facility] [address] [address]- 4650 Jul, [facility] [id number] [address]- 8598 Jul, [facility] [address] [address]- 5060 Jul, [facility] [address] [address] 1922 Jul, [facility] [address] [address]- 2586 Jul, [facility] [id number] [address]- 4402 Jul, [facility] [address] [address]- 5796 Jul, [facility] [address] [address]- 3650 Jul, [facility] [place] [facility] [address] [id number] [place] [address]- 1096 Jul, [facility] [place] [facility] [address] [id number] [place] [address]- 6526 Jul, [facility] [place] [facility] [address] [id number] [place] [address]- 3182 Jul, [facility] [place] [facility] [address] [id number] [place] [address]- 1660 Jul, [facility] [place] [facility] [address] [id number] [place] [address]- 7222 Jul, [facility] [place] [facility] [address] [id number] [place] [address]- 3088 Jul, [facility] [place] [facility] [address] [id number] [place] [address]- 8877 Jul, [facility] [place] [facility] [address] [id number] [place] [address]- 9948 Jul, [facility] [place] [facility] [address] [id number] [place] [address]- 6372 Jun, [facility] [place] [facility] [address] [id number] [place] [address]- 9790 Jun, [facility] [place] [facility] [address] [id number] [place] [address]- 5348 Jun, 2014 [facility] [place] [facility] [address] [id number] [place] [address]- 9692 Jun, 2014 [facility] [place] [facility] [address] [id number] [place] [address]- 8432 Jun, 2014 [facility] [place] [facility] [address] [id number] [place] [address]- 0409 Jun, 2014 [facility] [place] [facility] [address] [id number] [place] [address]- 4961 Jun, 2014 [facility] [place] [facility] [address] [id number] [place] [address]- 0582 Jun, [facility] [address] [id number] [place] 9946 Apr, [facility] [place] [facility] [address] [id number] [place] 8796 Apr, [facility] [address] [id number] [place] [address]- 2616 Apr, [facility] [place] [facility] [address] [id number] [place] [address]- 2959 Apr, [facility] [address] [id number] [place] 0578 Apr, [facility] [address] [id number] [place] [address]- 8154 Apr, [facility] [place] [facility] [address] [id number] [place] [address]- 0139 Apr, [facility] [address] [id number] [place] [address]- 0208 Apr, [facility] [place] [facility] [address] [id number] [place] [address]- 4998 Apr, [facility] [address] [id number] [place] [address]- 4668 Apr, [facility] [place] [facility] [address] [id number] [place] [address]- 4639 Apr, [facility] [place] [facility] [address] [id number] [place] [address]- 7215 Apr, [facility] [place] [facility] [address] [id number] [place] [address]- 3746 Apr, [facility] [place] [facility] [address] [id number] [place] [address]- 5716 Apr, [facility] [place] [facility] [address] [id number] [place] [address]- 7092 Apr, [facility] [place] [facility] [address] [id number] [place] [address]- 9709 Feb, [facility] [place] [facility] [address] [id number] [place] [address]- 8545 Feb, [facility] [place] [facility] [address] [id number] [place] 2558 Feb, [facility] [place] [facility] [address] [id number] [place] [address]- 4099 Feb, [facility] [place] [facility] [address] [id number] [place] [address]- 9802 Feb, [facility] [place] [facility] [address] [id number] [place] [address]- 1635 Feb, [facility] [place] [facility] [address] [id number] [place] [address]- 9370 Jan, [facility] [place] [facility] [address] [id number] [place] [address]- 0017 Jan, [facility] [place] [facility] [address] [id number] [place] [address]- 1625 Jan, [facility] [place] [facility] [address] [id number] [place] [address]- 9442 Jan, 2013 [facility] [place] [facility] [address] [id number] [place] [address]- 1646 Jan, [facility] [place] [facility] [address] [id number] [place] [address]- 2487 Jan, [facility] [place] [facility] [address] [id number] [place] [address]- 8340 Dec, [facility] [place] [facility] [address] [id number] [place] [address]- 2296 Dec, [facility] [place] [facility] [address] [id number] [place] 7531 Dec, [facility] [place] [facility] [address] [id number] [place] [address]- 8871 Dec, [facility] [place] [facility] [address] [id number] [place] [address]- 8828 Nov, [facility] [place] [facility] [address] [id number] [place] [address]- 6007 Nov, [facility] [place] [facility] [address] [id number] [place] [address]- 7706 Nov, [facility] [place] [facility] [address] [id number] [place] [address]- 8050 Nov, [facility] [place] [facility] [address] [id number] [place] [address]- 2960 Nov, [facility] [place] [facility] [address] [id number] [place] [address] Nov, [facility] [place] [facility] [address] [id number] [place] [address] Nov, [facility] [place] [facility] [address] [id number] [place] [address] Nov, [facility] [place] [facility] [address] [id number] [place] [address] Oct, [facility] [place] [facility] [address] [id number] [place] [address] Oct, [facility] [place] [facility] [address] [id number] [place] [address] Oct, [facility] [place] [facility] [address] [id number] [place] [address] Oct, [facility] [place] [facility] [address] [id number] [place] [address] Oct, [facility] [place] [facility] [address] [id number] [place] [address] Oct, [facility] [place] [facility] [address] [id number] [place] [address]- [address] Oct, [facility] [place] [facility] [address] [id number] [place] [address] 26 Oct, 2013 [facility] [place] [facility] [address] [id number] [place] [address] Oct, [facility] [place] [facility] [address] [id number] [place] [address] Oct, [facility] [place] [facility] [address] [id number] [place] [address] Oct, [facility] [place] [facility] [address] [id number] [place] [address]- [address] 23 Oct, 2013 [facility] [place] [facility] [address] [id number] [place] [address] 18 Oct, 2013 [facility] [place] [facility] [address] [id number] [place] [address] 18 Oct, 2013 [facility] [place] [facility] [address] [id number] [place] [address]- [address] 17 Oct, 2013 [facility] [place] [facility] [address] [id number] [place] [address] 17 Oct, 2013 [facility] [place] [facility] [address] [id number] [place] [address]- [address] 16 Oct, 2013 [facility] [place] [facility] [address] [id number] [place] [address]- [address] 16 Oct, 2013 [facility] [place] [facility] [address] [id number] [place] [address]- [address] 13 Oct, 2013 [facility] [place] [facility] [address] [id number] [place] [address]- [address] 13 Oct, 2013 [facility] [place] [facility] [address] [id number] [place] [address] 11 Oct, 2013 [facility] [place] [facility] [address] [id number] [place] [address]- [address] 11 Oct, 2013 [facility] [place] [facility] [address] [id number] [place] [address] Oct, [facility] [place] [facility] [address] [id number] [place] [address] Oct, [facility] [place] [facility] [address] [id number] [place] [address] Oct, [facility] [place] [facility] [address] [id number] [place] [address] Oct, [facility] [place] [facility] [address] [id number] [place] [address] Oct, [facility] [place] [facility] [address] [id number] [place] [address] Oct, [facility] [place] [facility] [address] [id number] [place] [address] Oct, [facility] [place] [facility] [address] [id number] [place] [address] Oct, [facility] [place] [facility] [address] [id number] [place] [address]- [address] September, [facility] [place] [facility] [address] [id number] [place] [address] September, [facility] [place] [facility] [address] [id number] [place] [address] September, [facility] [place] [facility] [address] [id number] [place] [address] September, [facility] [place] [facility] [address] [id number] [place] [address] September, [facility] [place] [facility] [address] [id number] [place] [address] September, [facility] [place] [facility] [address] [id number] [place] [address] September, [facility] [place] [facility] [address] [id number] [place] [address] 95[address] September, [facility] [place] [facility] [address] [id number] [place] [address] 6449 September, [facility] [address] [id number] [place] [address] 8[address] September, [facility] [place] [facility] [address] [id number] [place] [address] 1925 September, [facility] [address] [id number] [place] [address] 2028 September, [facility] [place] [facility] [address] [id number] [place] [address] 24[address] September, [facility] [address] [id number] [place] [address] 6784 September, [facility] [address] [id number] [place] [address]- 5865 September, [facility] [address] [id number] [place] [address]- 7584 September, [facility] [address] [id number] [place] [address] 5926 September, [facility] [place] [facility] [address] [id number] [place] [address] 6961 September, [facility] [address] [id number] [place] [address] 9016 Aug, [facility] [place] [facility] [address] [id number] [place] [address] 7552 Aug, [facility] [place] [facility] [address] [id number] [place] [address]- 0086 Aug, [facility] [place] [facility] [address] [id number] [place] [address]- 1098 Aug, [facility] [place] [facility] [address] [id number] [place] [address]- 5049 Aug, [facility] [place] [facility] [address] [id number] [place] [address]- 4034 Aug, [facility] [place] [facility] [address] [id number] [place] [address] 4157 Jul, [facility] [place] [facility] [address] [id number] [place] [address]- 0533 Jul, [facility] [place] [facility] [address] [id number] [place] [address]- 4107 Jul, [facility] [place] [facility] [address] [id number] [place] [address]- 6924 Jul, [facility] [place] [facility] [address] [id number] [place] [address] 1840 Jun, [facility] [place] [facility] [address] [id number] [place] [address]- 6109 Jun, [facility] [place] [facility] [address] [id number] [place] [address]- 8592 Jun, [facility] [place] [facility] [address] [id number] [place] [address]- 6781 Jun, [facility] [place] [facility] [address] [id number] [place] [address]- 9072 Mar, [facility] [place] [facility] [address] [id number] [place] [address]- 3185 14 Mar, 2013 [facility] [place] [facility] [address] [id number] [place] [address]- 8205 Mar, [facility] [place] [facility] [address] [id number] [place] [address]- 9495 Mar, [facility] [place] [facility] [address] [id number] [place] [address]- 8443 Feb, [facility] [place] [facility] [address] [id number] [place] [address]- 0192 Feb, [facility] [place] [facility] [address] [id number] [place] [address]- 1515 Feb, [facility] [place] [facility] [address] [id number] [place] [address]- 1348 Jan, [facility] [address] [id number] [place] [address]- 2176 20 Jan, 2013 [facility] [place] [facility] [address] [id number] [place] [address]- 9140 Jan, [facility] [place] [facility] [address] [id number] [place] [address]- 1294 Jan, [facility] [place] [facility] [address] [id number] [place] [address]- 7750 Dec, [facility] [place] [facility] [address] [id number] [place] [address]- 7350 Dec, [facility] [place] [facility] [address] [id number] [place] [address]- 0063 Dec, [facility] [address] [id number] [place] [address]- 9722 Dec, [facility] [place] [facility] [address] [id number] [place] [address]- 9326 Nov, [facility] [place] [facility] [address] [id number] [place] [address]- 4924 Nov, [facility] [place] [facility] [address] [id number] [place] [address]- 1474 Nov, [facility] [place] [facility] [address] [id number] [place] [address]- 2513 Nov, [facility] [place] [facility] [address] [id number] [place] [address]- 4438 Nov, [facility] [place] [facility] [address] [id number] [place] [address]- 7999 Nov, [facility] [place] [facility] [address] [id number] [place] [address]- 0095 Oct, [facility] [place] [facility] [address] [id number] [place] [address]- 1254 Oct, [facility] [place] [facility] [address] [id number] [place] [address]- 9919 25 Oct, 2012 [facility] [place] [facility] [address] [id number] [place] [address]- 7008 Oct, [facility] [place] [facility] [address] [id number] [place] [address]- 2172 17 Oct, 2012 [facility] [place] [facility] [address] [id number] [place] [address]- 2783 16 Oct, 2012 [facility] [place] [facility] [address] [id number] [place] [address]- 9134 14 Oct, 2012 [facility] [place] [facility] [address] [id number] [place] [address]- 6989 13 Oct, 2012 [facility] [place] [facility] [address] [id number] [place] [address]- 5072 Oct, [facility] [place] [facility] [address] [id number] [place] [address]- 1163 07 Oct, 2012 [facility] [place] [facility] [address] [id number] [place] [address]- 0146 September, [facility] [place] [facility] [address] [id number] [place] [address]- 4810 September, [facility] [place] [facility] [address] [id number] [place] [address]- 2441 September, [facility] [place] [facility] [address] [id number] [place] [address]- 2442 Aug, [facility] [place] [facility] [address] [id number] [place] [address]- 6064 Aug, [facility] [place] [facility] [address] [id number] [place] [address]- 5623 Aug, [facility] [place] [facility] [address] [id number] [place] [address] Aug, [facility] [place] [facility] [address] [id number] [place] [address]- 8869 30 Jul, 2012 [facility] [address] [id number] [place] [address]- 2139 29 Jul, 2012 [facility] [place] [facility] [address] [id number] [place] [address]- 5511 Jul, [facility] [address] [id number] [place] [address]- 6322 Jul, [facility] [place] [facility] [address] [id number] [place] [address]- 2028 Jul, [facility] [address] [id number] [place] [address]- 2144 Jul, [facility] [place] [facility] [address] [id number] [place] [address]- 3848 May, [facility] [place] [facility] [address] [id number] [place] [address]- 1432 May, [facility] [place] [facility] [address] [id number] [place] [address]- 8489 May, [facility] [place] [facility] [address] [id number] [place] [address]- 7902 May, [facility] [place] [facility] [address] [id number] [place] [address]- 5550 May, [facility] [place] [facility] [address] [id number] [place] [address]- 6480 May, [facility] [place] [facility] [address] [id number] [place] [address]- 7998 May, [facility] [place] [facility] [address] [id number] [place] [address]- 6646 May, [facility] [place] [facility] [address] [id number] [place] [address]- 1090 May, [facility] [place] [facility] [address] [id number] [place] [address]- 4224 May, [facility] [place] [facility] [address] [id number] [place] [address]- 1928 May, [facility] [place] [facility] [address] [id number] [place] [address]- 6185 Apr, [facility] [place] [facility] [address] [id number] [place] [address]- 1556 Apr, [facility] [place] [facility] [address] [id number] [place] [address]- 7795 Apr, [facility] [place] [facility] [address] [id number] [place] [address]- 9752 Apr, [facility] [place] [facility] [address] [id number] [place] [address]- 2488 Apr, [facility] [place] [facility] [address] [id number] [place] [address]- 3910 Apr, [facility] [place] [facility] [address] [id number] [place] [address]- 6292 Mar, [facility] [place] [facility] [address] [id number] [place] [address]- 8238 Mar, [facility] [place] [facility] [address] [id number] [place] [address]- 2582 Mar, [facility] [place] [facility] [address] [id number] [place] [address]- 6973 Mar, [facility] [place] [facility] [address] [id number] [place] [address]- 2328 Mar, [facility] [place] [facility] [address] [id number] [place] [address]- 3361 Mar, [facility] [place] [facility] [address] [id number] [place] [address]- 2332 Mar, [facility] [place] [facility] [address] [id number] [place] [address]- 1497 Mar, [facility] [place] [facility] [address] [id number] [place] [address]- 1730 Feb, [facility] [place] [facility] [address] [id number] [place] [address]- 1618 23 Feb, 2012 [facility] [place] [facility] [address] [id number] [place] [address]- 9279 16 Feb, 2012 [facility] [place] [facility] [address] [id number] [place] [address]- 5020 15 Feb, 2012 [facility] [place] [facility] [address] [id number] [place] [address]- 6656 15 Feb, 2012 [facility] [place] [facility] [address] [id number] [place] [address]- 6597 13 Feb, 2012 [facility] [place] [facility] [address] [id number] [place] [address]- 3780 Feb, [facility] [place] [facility] [address] [id number] [place] [address]- 9687 Feb, [facility] [place] [facility] [address] [id number] [place] [address]- 8940 Feb, [facility] [place] [facility] [address] [id number] [place] [address]- 8698 Feb, [facility] [place] [facility] [address] [id number] [place] [address]- 8380 Feb, [facility] [place] [facility] [address] [id number] [place] [address]- 4368 Feb, [facility] [place] [facility] [address] [id number] [place] [address]- 3698 Feb, [facility] [place] [facility] [address] [id number] [place] [address]- 0431 Feb, [facility] [place] [facility] [address] [id number] [place] [address]- 3714 Feb, [facility] [place] [facility] [address] [id number] [place] [address]- 1103 Feb, [facility] [place] [facility] [address] [id number] [place] [address]- 4172 Feb, [facility] [place] [facility] [address] [id number] [place] [address]- 2022 Feb, [facility] [place] [facility] [address] [id number] [place] [address]- 2166 Jan, [facility] [place] [facility] [address] [id number] [place] [address]- 1506 13 Jan, 2012 [facility] [place] [facility] [address] [id number] [place] [address]- 9064 11 Jan, 2012 [facility] [place] [facility] [address] [id number] [place] [address]- 1190 10 Jan, 2012 [facility] [place] [facility] [address] [id number] [place] [address]- 2537 05 Jan, 2012 [facility] [place] [facility] [address] [id number] [place] [address]- 3451 Dec, [facility] [place] [facility] [address] [id number] [place] [address]- 1331 Dec, [facility] [place] [facility] [address] [id number] [place] [address]- 9680 Dec, [facility] [place] [facility] [address] [id number] [place] [address]- 8586 Dec, [facility] [place] [facility] [address] [id number] [place] [address]- 9066 Dec, [facility] [place] [facility] [address] [id number] [place] [address]- 1541 Dec, [facility] [place] [facility] [address] [id number] [place] [address]- 5834 Nov, [facility] [place] [facility] [address] [id number] [place] Nov, [facility] [place] [facility] [address] [id number] [place] [address]- 0140 Nov, [facility] [place] [facility] [address] [id number] [place] [address]- 7388 Nov, [facility] [address] [id number] [place] [address]- 4458 Nov, [facility] [place] [facility] [address] [id number] [place] [address]- 7046 Oct, [facility] [address] [id number] [place] [address]- 3017 Oct, [facility] [place] [facility] [address] [id number] [place] [address]- 6799 Oct, [facility] [address] [id number] [place] [address]- 1923 September, [facility] [address] [id number] [place] [address]- 0976 September, [facility] [address] [id number] [place] [address]- 6143 September, [facility] [address] [id number] [place] [address]- 3731 September, [facility] [address] [id number] [place] [address]- 8000 September, [facility] [address] [id number] [place] [address]- 2106 September, [facility] [address] [id number] [place] [address]- 5817 Aug, [facility] [place] [facility] [address] [id number] [place] [address]- 5742 Aug, [facility] [place] [facility] [address] [id number] [place] [address]- 9410 Aug, [facility] [place] [facility] [address] [id number] [place] [address]- 9416 Jun, [facility] [place] [facility] [address] [id number] [place] [address]- 3829 Jun, [facility] [address] [id number] [place] [address]- 4704 Jun, [facility] [place] [facility] [address] [id number] [place] [address]- 9436 Jun, [facility] [place] [facility] [address] [id number] [place] [address]- 6665 May, [facility] [place] [facility] [address] [id number] [place] [address]- 9140 May, [facility] [place] [facility] [address] [id number] [place] [address]- 4358 May, [facility] [place] [facility] [address] [id number] [place] [address]- 2766 May, [facility] [place] [facility] [address] [id number] [place] [address]- 1960 May, [facility] [place] [facility] [address] [id number] [place] [address]- 0373 Apr, [facility] [place] [facility] [address] [id number] [place] [address]- 8150 Apr, [facility] [place] [facility] [address] [id number] [place] [address]- 8922 Apr, [facility] [place] [facility] [address] [id number] [place] [address]- 4973 Apr, [facility] [place] [facility] [address] [id number] [place] [address]- 3707 Apr, [facility] [place] [facility] [address] [id number] [place] [address]- 2016 Apr, [facility] [place] [facility] [address] [id number] [place] [address]- 5595 Apr, [facility] [place] [facility] [address] [id number] [place] [address]- 1803 Mar, [facility] [place] [facility] [address] [id number] [place] [address]- 8139 Mar, [facility] [address] [id number] [place] [address]- 4487 Mar, [facility] [place] [facility] [address] [id number] [place] [address]- 7801 Feb, [facility] [address] [id number] [place] [address]- 2089 Feb, [facility] [place] [facility] [address] [id number] [place] [address]- 1196 Feb, [facility] [address] [id number] [place] [address]- 6094 Feb, [facility] [place] [facility] [address] [id number] [place] [address]- 0438 Feb, [facility] [address] [id number] [place] [address]- 4640 Feb, [facility] [address] [id number] [place] [address]- 4875 Jan, [facility] [place] [facility] [address] [id number] [place] [address]- 2226 Jan, [facility] [address] [facility] [id number] [place] [address]- 6508 September, [facility] [place] [facility] [address] [id number] [place] [address]- 7400 Jun, [facility] [place] [facility] [address] [id number] [place] [address]- 5402 Apr, [facility] [place] [facility] [address] [id number] [place] 8860 Apr, [facility] [place] [facility] [address] [id number] [place] [address]- 1897 Apr, [facility] [place] [facility] [address] [id number] [place] [address]- 5984 Apr, [facility] [address] [id number] [address]- 3225 Apr, [facility] [address] [facility] [id number] [place] [address]- 6387 Mar, [facility] [address] [facility] [id number] [place] [address]- 5576 Mar, [facility] [address] [facility] [id number] [place] [address]- 6732 Mar, [facility] [address] [facility] [id number] [place] [address]- 6819 Mar, [facility] [address] [facility] [id number] [place] [address]- 1420 Feb, [facility] [id number] [address] 3410 15 Jan, 2010 [facility] [id number] [address]- 0074 Mar, [facility] [id number] [address]- 9687 15 Jan, 2009 [facility] [address] [id number] [address]- 4394 Oct, [facility] [address] [id number] [address]- 2522 Apr, IMMUNIZATIONS No Known Immunizations SOCIAL HISTORY Never Assessed REASON FOR VISIT Refill request PLAN OF CARE VITAL SIGNS MEDICATIONS Unknown [...]
--- OUTSIDE RECORDS SUMMARY | 2018-03-22 21:39 | XMS REPORT ---
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 Name Role Phone JEVON MCLEAN Unavailable PROBLEMS Type Condition ICD9-CM Code [id number] Code Onset Dates Condition Status SNOMED Code Problem Bilateral low back pain without sciatica M54.5 Active 711460169 Problem Anxiety F41.9 Active 72837775 Problem Pre-diabetes R73.03 Active 804007084 Problem Essential hypertension I10 Active 19908813 Problem Irritable bowel syndrome without diarrhea K58.9 Active 88466676 Problem Body mass index (BMI) of 40.0-44.9 in adult Z68.41 Active 601574103 Problem Morbid (severe) obesity due to excess calories E66.01 Active 925566460 Problem Pain in right foot M79.671 Active [id number] Problem Pain in left foot M79.672 Active 156788613752888 Problem Rhinosinusitis J32.9 Active 78676677 Problem Alternating constipation and diarrhea R19.8 Active 837978419 ALLERGIES No Information ENCOUNTERS Encounter Location Date Diagnosis [facility] [id number] [place] [address] 80914- 3586 Jan, [facility] [id number] [place] [address] 67349- 1504 Jan, [facility] [id number] [place] [address] 51831- 9540 05 Jan, 2018 [facility] [address] 8[address] -5145 Jan, Dysuria R30.0 ; Acute cystitis with hematuria N30.01 ; Yeast infection B37.9 and BMI 40.0-44.9, adult Z68.41 [facility] [address] [place] [address]- 2568 Dec, [facility] [id number] [place] [address] 90512- 6365 Dec, [facility] [id number] [place] [address] 47324- 8689 Nov, History of UTI Z87.440 [facility] [id number] [place] [address] 85775- 8688 Nov, UTI symptoms R39.9 ; Acute nasopharyngitis J00 and BMI 40.0- 44.9, adult Z68.41 [place] [id number] [place] [address] 75357- 6856 Nov, [facility] [id number] [place] [address] 62553- 2735 Nov, Yeast infection involving the vagina and surrounding area B37.3 [place] [id number] [place] [address] 55873- 3972 Nov, Yeast infection involving the vagina and surrounding area B37.3 [place] [id number] [place] [address] 19020- 1967 Nov, Yeast infection involving the vagina and surrounding area B37.3 ; Body mass index (BMI) of 40.0-44.9 in adult Z68.41 and Morbid (severe) obesity due to excess calories E66.01 [place] [id number] [place] [address] 28694- 8846 Oct, Abscess of groin, left L02.214 and Pre-diabetes R73.03 [place] [id number] [place] [address] 34907- 5362 September, Pre-diabetes R73.03 [place] [id number] [place] [address] 93816- 0961 Aug, [facility] [id number] [place] [address] 64783- 9890 Jul, Bilateral low back pain without sciatica M54.5 [facility] [id number] [place] [address] 00767- 4869 Jun, [facility] [address] 67340- 0943 Jun, [facility] [address] 12907- 8241 Jun, [facility] [address] 75914- 4008 May, [facility] [address] 33225- 7262 May, Ingrown left greater toenail L60.0 [facility] [address] 18525- 7204 May, [facility] [address] 25812 -0752 May, Influenza A J10.1 ; Fever R50.9 and Body aches R52 [facility] [address] 72120- 0899 Apr, [facility] [id number] [place] [address] 29953- 2247 Apr, [facility] [id number] [place] [address] 84113- 3328 Apr, [facility] [address] 47705- 5510 Apr, Abscess L02.91 and Obesity (BMI 30-39.9) E66.9 [facility] [address] 08679- 1422 Apr, [facility] [address] 15720- 0334 Apr, [facility] [address] 01474- 5726 Mar, Acute non-recurrent maxillary sinusitis J01.00 [place] [id number] [place] [address] 28035- 6210 Feb, Heartburn R12 [place] [address] 19955- 6557 Feb, Heartburn R12 ; Low back pain M54.5 ; Essential hypertension I10 ; Bilateral low back pain without sciatica M54.5 ; Anxiety F41.9 ; Pre-diabetes R73.03 ; Other obesity due to excess calories E66.09 ; Alternating constipation and diarrhea R19.8 ; Dyspepsia R10.13 ; Generalized abdominal pain R10.84 ; Rhinosinusitis J32.9 and Boil L02.92 [place] [id number] [place] [address] 57548- 8750 Jan, Heartburn R12 [place] [address] 06928- 8756 Jan, [place] [address] 16642- 0594 Jan, [place] [address] 08037- 5756 Jan, Acute seasonal allergic rhinitis due to pollen J30.1 and Irritable bowel syndrome without diarrhea K58.9 [facility] [id number] [place] [address] 74630- 5072 Dec, Low back pain M54.5 and Acute cystitis with hematuria N30.01 [place] [address] 81655- 3798 Dec, Low back pain M54.5 and Acute cystitis with hematuria N30.01 [place] [address] 22104- 2517 Dec, Heartburn R12 ; Essential hypertension I10 ; Acute non- recurrent maxillary sinusitis J01.00 ; Bilateral low back pain without sciatica M54.5 ; Anxiety F41.9 ; Pre-diabetes R73.03 ; Pain in right foot M79.671 ; Pain in left foot M79.672 ; Other obesity due to excess calories E66.09 and Acute cystitis with hematuria N30.01 [place] [address] 51161- 2811 Dec, Bilateral low back pain without sciatica M54.5 ; Acute non- recurrent maxillary sinusitis J01.00 and Pre-diabetes R73.03 [place] [address] 88614- 7692 Oct, [facility] [address] 30531 -6989 Aug, [facility] [address] 50186 -8553 Aug, Acute vaginitis N76.0 ; Urinary frequency R35.0 ; Screen for STD (sexually transmitted disease) Z11.3 and Abscess L02.91 [place] [address] 46093- 0715 Aug, Plantar wart of right foot B07.0 [place] [address] 23689- 2222 Jul, Plantar wart of right foot B07.0 [place] [address] 45025- 1715 Jun, [place] [address] 37921- 2966 Jun, Heartburn R12 ; Essential hypertension I10 ; Anxiety F41.9 ; Folliculitis L73.9 and Plantar wart of right foot B07.0 [place] [address] 89381- 4161 Jun, [facility] [place] [address] 01218 -8006 May, Low back pain M54.5 and Other chronic pain G89.29 [facility] [id number] [place] [address] 20070- 4221 May, [facility] [address] 40159- 2351 May, [place] [address] 31559- 6916 May, Heartburn R12 ; Bilateral low back pain without sciatica M54.5 ; Essential hypertension I10 ; Long-term use of high-risk medication Z79.899 ; Anxiety F41.9 ; Impacted cerumen of right ear H61.21 ; Folliculitis L73.9 ; High risk bisexual behavior Z72.53 and General medical exam Z00.00 [place] [address] 02304- 1618 May, [place] [address] 63913- 8130 May, [place] [address] 26780- 8887 Mar, Acute nasopharyngitis J00 ; Acute intractable tension-type headache G44.201 and Cough R05 [place] [id number] [place] [address] 06963- 4200 Jan, [facility] [address] 87148 -4259 Jan, Abscess L02.91 [facility] [address] 18844 -8262 Jan, Urinary urgency R39.15 and Urinary tract infection without hematuria, site unspecified N39.0 [facility] [address] 11744- 4979 Jan, [place] [address] 33786- 3482 Jan, [place] [address] [address]- 4132 Dec, [facility] [id number] [place] [address] 75404- 8736 Dec, Dermatofibroma D23.9 [facility] [id number] [place] [address] 33509- 2586 September, [facility] [id number] [place] [address] 40204- 2969 Aug, [facility] [address] [place] [address] 29032- 6381 Aug, Pain in left knee M25.562 ; Heartburn R12 ; Bilateral low back pain without sciatica M54.5 ; Essential hypertension I10 ; Ingrown left big toenail L60.0 ; Chronic pain G89.29 ; Irritable bowel syndrome with constipation K58.9 and Skin infection L08.9 [facility] [address] [place] [address] 95071- 9101 Aug, [facility] [id number] [place] [address] 71233- 2377 Jul, [facility] [id number] [place] [address] 55837- 0180 Jun, [facility] [address] [address]- 9850 Jun, [facility] [id number] [place] [address] 18772- 6316 Jun, [facility] [address] [place] [address] 42923- 1010 Jun, [facility] [address] [place] [address] 00645- 8191 Jun, Upper respiratory infection J06.9 ; Bilateral low back pain without sciatica M54.5 and Headache R51 [facility] [id number] [place] [address] 65176- 3261 May, [facility] [id number] [place] [address] 20250- 5009 Apr, Bilateral low back pain without sciatica M54.5 ; Upper respiratory infection J06.9 and Yeast dermatitis B37.2 [facility] [id number] [place] [address] 68561- 5029 Apr, [facility] [address] 17384- 5235 Apr, [facility] [address] 42287- 6160 Feb, [place] [address] 39740- 4707 Feb, [facility] [address] 60202- 9437 Feb, [facility] [address] 68860- 8405 Feb, Essential hypertension I10 ; Heartburn R12 ; Irritable bowel syndrome without diarrhea K58.9 ; Bilateral low back pain, with sciatica presence unspecified M54.5 and Upper respiratory infection J06.9 [place] [id number] [place] [address] 47040- 0940 Feb, [place] [id number] [place] [address] 66606- 3951 Feb, Generalized anxiety disorder F41.1 and Grief F43.20 [place] [id number] [place] [address] 94035- 9030 Jan, [place] [address] 21929- 0767 Jan, Back pain 724.5 ; Upper respiratory infection 465.9 ; HTN ( hypertension) 401.9 and Dyspepsia 536.8 [place] [id number] [place] [address] 24261- 6421 Dec, [facility] [id number] [place] [address] 09432- 2417 Nov, Back pain 724.5 ; Abdominal pain, bilateral lower quadrant 789.03 ; GERD (gastroesophageal reflux disease) 530.81 ; Upper respiratory infection 465.9 ; Dysuria 788.1 and HTN (hypertension) 401.9 [facility] [address] 80882- 7911 Nov, [facility] [address] 51112- 0772 Nov, [facility] [address] 04700- 9047 Nov, [place] [address] 30532- 2589 Nov, Cough 786.2 [place] [address] 33148- 7447 Nov, Cough 786.2 [facility] [id number] [place] [address] 90148- 8453 Oct, Unspecified episodic mood disorder 296.90 and Anxiety disorder, unspecified 300.00 [place] [id number] [place] [address] 63310- 9356 Oct, Abdominal pain, left upper quadrant 789.02 ; Essential hypertension, benign 401.1 ; Irritable bowel syndrome 564.1 ; Abscess 682.9 ; Heartburn 787.1 ; Acute sinusitis, unspecified 461.9 ; Muscle spasm of back 724.8 ; Cough 786.2 and Skin tag 701.9 [facility] [id number] [place] [address] 70380- 8802 September, [facility] [id number] [place] [address] 40724- 7316 September, [facility] [address] 18131- 2546 September, [facility] [place] [facility] [address] [id number] [place] [address]- 4968 14 Aug, 2014 [facility] [place] [facility] [address] [id number] [place] [address]- 0512 Aug, [facility] [place] [facility] [address] [id number] [place] [address]- 5795 30 Jul, 2014 [facility] [place] [facility] [address] [id number] [place] [address]- 1821 30 Jul, 2014 [facility] [place] [facility] [address] [id number] [place] [address]- 0475 Jul, [facility] [place] [facility] [address] [id number] [place] [address]- 6458 Jul, [facility] [place] [facility] [address] [id number] [place] [address]- 4549 Jul, [facility] [place] [facility] [address] [id number] [place] [address]- 3313 Jul, [facility] [place] [facility] [address] [id number] [place] [address]- 8478 Jul, [facility] [place] [facility] [address] [id number] [place] [address]- 3380 Jul, [facility] [place] [facility] [address] [id number] [place] [address]- 9048 Jul, [facility] [place] [facility] [address] [id number] [place] [address]- 2398 Jul, [facility] [place] [facility] [address] [id number] [place] [address]- 1008 Jul, [facility] [place] [facility] [address] [id number] [place] [address]- 8182 Jul, [facility] [place] [facility] [address] [id number] [place] [address]- 5096 Jul, [facility] [place] [facility] [address] [id number] [place] [address]- 1135 Jul, 2014 [facility] [place] [facility] [address] [id number] [place] [address]- 3922 Jul, 2014 [facility] [place] [facility] [address] [id number] [place] [address]- 3564 Jul, 2014 [facility] [place] [facility] [address] [id number] [place] [address]- 1213 Jul, 2014 [facility] [place] [facility] [address] [id number] [place] [address]- 4880 Jun, 2014 [facility] [place] [facility] [address] [id number] [place] [address]- 0230 Jun, 2014 [facility] [place] [facility] [address] [facility] [id number] [place] [address]- 2344 Jun, 2014 [facility] [place] [facility] [address] [facility] [id number] [place] [address]- 0196 Jun, 2014 [facility] [place] [facility] [address] [id number] [place] [address]- 4162 Jun, 2014 [facility] [place] [facility] [address] [facility] [id number] [place] [address]- 8790 Jun, 2014 [facility] [place] [facility] [address] [facility] [id number] [place] [address]- 0839 Jun, 2014 [facility] [place] [facility] [address] [facility] [id number] [place] [address]- 9006 Jun, 2014 [facility] [place] [facility] [address] [facility] [id number] [place] [address]- 3498 Apr, [facility] [place] [facility] [address] [id number] [place] [address]- 3657 Apr, [facility] [place] [facility] [address] [facility] [id number] [place] [address]- 2357 Apr, [facility] [place] [facility] [address] [facility] [id number] [place] [address]- 4652 Apr, [facility] [place] [facility] [address] [id number] [place] [address]- 0263 Apr, [facility] [place] [facility] [address] [id number] [place] 9356 Apr, [facility] [place] [facility] [address] [id number] [place] [address]- 5986 15 Apr, 2014 [facility] [place] [facility] [address] [id number] [place] [address]- 6623 15 Apr, 2014 [facility] [place] [facility] [address] [id number] [place] [address]- 7096 Apr, [facility] [place] [facility] [address] [id number] [place] [address]- 6233 Apr, [facility] [place] [facility] [address] [id number] [place] [address]- 1640 Apr, [facility] [place] [facility] [address] [id number] [place] [address]- 6811 Apr, [facility] [place] [facility] [address] [id number] [place] [address]- 3991 Apr, [facility] [place] [facility] [address] [id number] [place] [address]- 6708 Apr, [facility] [place] [facility] [address] [id number] [place] [address]- 7864 Apr, [facility] [place] [facility] [address] [id number] [place] [address]- 9407 Feb, [facility] [place] [facility] [address] [id number] [place] [address]- 8041 Feb, [facility] [place] [facility] [address] [id number] [place] 7144 Feb, [facility] [place] [facility] [address] [id number] [place] 2099 Feb, [facility] [place] [facility] [address] [id number] [place] [address]- 5794 Feb, [facility] [place] [facility] [address] [id number] [place] [address]- 0842 Feb, [facility] [place] [facility] [address] [id number] [place] [address]- 7186 Jan, 2013 [facility] [place] [facility] [address] [id number] [place] [address]- 9026 Jan, 2013 [facility] [place] [facility] [address] [id number] [place] [address]- 2163 Jan, 2013 [facility] [place] [facility] [address] [id number] [place] [address]- 5138 Jan, 2013 [facility] [place] [facility] [address] [id number] [place] [address]- 3830 Jan, 2013 [facility] [place] [facility] [address] [id number] [place] [address]- 3878 Jan, 2013 [facility] [place] [facility] [address] [id number] [place] [address]- 6533 Dec, [facility] [place] [facility] [address] [id number] [place] [address]- 5297 Dec, [facility] [place] [facility] [address] [id number] [place] [address]- 5092 Dec, [facility] [place] [facility] [address] [id number] [place] [address]- 8849 Dec, [facility] [place] [facility] [address] [id number] [place] [address]- 8752 Nov, [facility] [place] [facility] [address] [id number] [place] [address]- 1612 Nov, [facility] [place] [facility] [address] [id number] [place] [address]- 3215 Nov, [facility] [place] [facility] [address] [id number] [place] [address]- 5967 Nov, [facility] [place] [facility] [address] [id number] [place] [address]- 6694 Nov, [facility] [place] [facility] [address] [id number] [place] [address]- 3035 Nov, [facility] [place] [facility] [address] [id number] [place] [address]- 4116 Nov, [facility] [place] [facility] [address] [id number] [place] [address]- 6852 Nov, [facility] [place] [facility] [address] [id number] [place] [address]- 5419 Oct, [facility] [place] [facility] [address] [id number] [place] [address]- 2818 Oct, [facility] [place] [facility] [address] [id number] [place] [address]- 5699 Oct, [facility] [place] [facility] [address] [id number] [place] [address]- 7044 Oct, [facility] [place] [facility] [address] [id number] [place] [address]- 5521 Oct, [facility] [place] [facility] [address] [id number] [place] [address]- 2865 Oct, [facility] [place] [facility] [address] [id number] [place] [address]- 6452 Oct, [facility] [place] [facility] [address] [id number] [place] [address] Oct, [facility] [place] [facility] [address] [id number] [place] [address] Oct, [facility] [place] [facility] [address] [id number] [place] [address] Oct, [facility] [place] [facility] [address] [id number] [place] [address] Oct, [facility] [place] [facility] [address] [id number], [place] [address] 23 Oct, 2013 [facility] [place] [facility] [address] [id number] [place] [address] 18 Oct, 2013 [facility] [place] [facility] [address] [id number] [place] [address] 18 Oct, 2013 [facility] [place] [facility] [address] [id number] [place] [address] 17 Oct, 2013 [facility] [place] [facility] [address] [id number] [place] [address] 17 Oct, 2013 [facility] [place] [facility] [address] [id number] [place] [address] 16 Oct, 2013 [facility] [place] [facility] [address] [id number] [place] [address] 16 Oct, 2013 [facility] [place] [facility] [address] [id number], [place] [address] Oct, [facility] [place] [facility] [address] [id number] [place] [address] Oct, [facility] [place] [facility] [address] [id number] [place] [address] Oct, [facility] [place] [facility] [address] [facility] [id number] [place] [address] Oct, [facility] [place] [facility] [address] [id number], [place] [address] Oct, [facility] [place] [facility] [address] [id number], [place] [address] Oct, [facility] [place] [facility] [address] [id number], [place] [address] Oct, [facility] [place] [facility] [address] [id number], [place] [address] Oct, [facility] [place] [facility] [address] [facility] [id number], [place] [address] Oct, [facility] [place] [facility] [address] [id number] [place] [address] Oct, [facility] [place] [facility] [address] [id number] [place] [address] Oct, [facility] [place] [facility] [address] [id number] [place] [address] Oct, [facility] [place] [facility] [address] [id number] [place] [address] September, [facility] [place] [facility] [address] [id number] [place] [address] September, [facility] [place] [facility] [address] [id number] [place] [address] September, [facility] [place] [facility] [address] [id number] [place] [address] September, [facility] [place] [facility] [address] [id number] [place] [address]- [address] September, [facility] [place] [facility] [address] [id number] [place] [address] September, [facility] [place] [facility] [address] [id number] [place] [address] September, [facility] [place] [facility] [address] [id number] [place] [address] September, [facility] [place] [facility] [address] [id number] [place] [address] September, [facility] [place] [facility] [address] [id number] [place] [address]- [address] September, [facility] [place] [facility] [address] [id number] [place] [address] September, [facility] [place] [facility] [address] [id number] [place] [address] September, [facility] [place] [facility] [address] [id number] [place] [address] September, [facility] [place] [facility] [address] [id number] [place] [address] September, [facility] [place] [facility] [address] [id number] [place] [address]- [address] September, [facility] [place] [facility] [address] [id number] [place] [address] September, [facility] [place] [facility] [address] [id number] [place] [address] 1146 September, [facility] [place] [facility] [address] [id number] [place] [address] September, [facility] [place] [facility] [address] [id number] [place] [address] Aug, [facility] [place] [facility] [address] [id number] [place] [address]- [address] Aug, [facility] [place] [facility] [address] [id number] [place] [address] Aug, [facility] [place] [facility] [address] [id number] [place] [address] Aug, [facility] [place] [facility] [address] [id number] [place] [address] Aug, [facility] [facility] [address] [id number] [place] [address] Aug, [facility] [place] [facility] [address] [id number] [place] [address] Jul, [facility] [place] [facility] [address] [id number] [place] [address] Jul, [facility] [place] [facility] [address] [id number] [place] [address] Jul, [facility] [place] [facility] [address] [id number] [place] [address] 49[address] Jul, [facility] [place] [facility] [address] [id number] [place] [address] 18 Jun, 2013 [facility] [address] [id number] [place] [address] 2940 Jun, [facility] [address] [id number] [place] [address] 6401 18 Jun, 2013 [facility] [address] [id number] [place] [address]- [address] Jun, [facility] [address] [id number] [place] [address]- 9460 14 Mar, 2013 [facility] [address] [id number] [place] [address] 2729 14 Mar, 2013 [facility] [address] [id number] [place] [address]- 3934 Mar, [facility] [place] [facility] [address] [id number] [place] [address]- 5658 Mar, [facility] [address] [id number] [place] [address]- 3266 Feb, [facility] [place] [address] [id number] [place] [address]- 9911 Feb, [facility] [address] [id number] [place] [address]- 8818 Feb, [facility] [address] [id number] [place] [address]- 4170 Jan, [facility] [address] [id number] [place] [address]- 2547 20 Jan, 2013 [facility] [place] [facility] [address] [id number] [place] [address]- 7660 12 Jan, 2013 [facility] [address] [id number] [place] [address]- 2547 05 Jan, 2013 [facility] [address] [id number] [place] [address]- 8122 Dec, [facility] [address] [id number] [place] [address]- 2706 Dec, [facility] [address] [id number] [place] [address]- 8261 Dec, [facility] [facility] [address] [id number] [place] [address]- 2247 Dec, [facility] [address] [id number] [place] [address]- 0770 Nov, [facility] [address] [id number] [place] [address]- 0656 Nov, [facility] [place] [address] [id number] [place] [address]- 3779 Nov, [facility] [address] [id number] [place] [address]- 3890 Nov, [facility] [address] [id number] [place] [address]- 7786 Nov, [facility] [facility] [address] [id number] [place] [address]- 2446 Nov, [facility] [address] [id number] [place] [address]- 9318 Oct, [facility] [address] [id number] [place] [address]- 9173 Oct, [facility] [address] [id number], [place] [address] Oct, [facility] [address] [id number] [place] [address]- 2312 Oct, [facility] [address] [id number] [place] [address]- 9119 Oct, [facility] [address] [id number] [place] [address]- 0407 Oct, [facility] [address] [id number], [place] [address]- 7[address] 14 Oct, 2012 [facility] [address] [id number] [place] [address]- 4393 13 Oct, 2012 [facility] [address] [id number] [place] [address]- 1823 Oct, [facility] [address] [id number] [place] [address]- 8365 Oct, [facility] [address] [id number] [place] [address]- 2997 September, [facility] [address] [id number] [place] [address]- 1208 September, [facility] [address] [id number] [place] [address]- 7525 September, [facility] [address] [id number] [place] [address]- 8390 Aug, [facility] [address] [id number] [place] [address]- 4639 Aug, [facility] [address] [id number] [place] [address]- 1471 Aug, [facility] [address] [facility] [id number] [place] [address]- 9577 Aug, [facility] [address] [id number] [place] [address]- 6363 30 Jul, 2012 [facility] [address] [id number] [place] [address]- 5360 29 Jul, 2012 [facility] [address] [id number] [place] [address]- 5956 26 Jul, 2012 [facility] [address] [id number] [place] [address]- 4375 Jul, [facility] [address] [facility] [id number] [place] [address]- 3581 Jul, [facility] [address] [id number] [place] [address]- 6857 Jul, [facility] [address] [id number] [place] [address]- 0128 May, [facility] [address] [id number] [place] [address]- 4502 May, [facility] [address] [id number] [place] [address]- 4126 May, [facility] [address] [id number] [place] [address]- 8249 May, [facility] [address] [id number] [place] [address]- 3063 May, [facility] [address] [id number] [place] [address]- 3206 May, [facility] [address] [id number] [place] [address]- 1341 May, [facility] [address] [id number] [place] [address]- 2538 18 May, 2012 [facility] [address] [id number] [place] [address]- 6128 May, [facility] [address] [id number] [place] [address]- 0040 17 May, 2012 [facility] [address] [id number] [place] [address]- 5848 16 May, 2012 [facility] [address] [id number] [place] [address]- 1445 Apr, [facility] [address] [id number] [place] [address]- 5785 Apr, [facility] [address] [id number] [place] [address]- 6811 Apr, [facility] [address] [id number] [place] [address]- 5962 Apr, [facility] [address] [id number] [place] [address]- 5159 Apr, [facility] [address] [id number] [place] [address]- 5928 Apr, [facility] [address] [facility] [id number] [place] [address]- 3661 Mar, [facility] [address] [id number] [place] [address]- 0145 Mar, [facility] [address] [id number] [place] [address]- 3443 Mar, [facility] [address] [id number] [place] [address]- 5883 Mar, [facility] [address] [facility] [id number] [place] [address]- 1622 Mar, [facility] [address] [id number], [place] [address]- 6603 Mar, [facility] [address] [id number] [place] [address]- 3302 Mar, [facility] [address] [facility] [id number], [place] [address]- 6435 Mar, [facility] [address] [id number], [place] [address]- 2447 Feb, [facility] [address] [id number], [place] [address]- 2606 Feb, [facility] [address] [id number], [place] [address]- 0522 16 Feb, 2012 [facility] [address] [id number], [place] [address]- 6585 15 Feb, 2012 [facility] [address] [facility] [id number], [place] [address]- 0200 Feb, [facility] [address] [id number] [place] [address]- 8969 13 Feb, 2012 [facility] [address] [id number] [place] [address]- 6907 Feb, [facility] [address] [id number] [place] [address]- 2855 Feb, [facility] [address] [id number] [place] [address]- 7136 Feb, [facility] [address] [id number] [place] [address]- 1988 Feb, [facility] [address] [id number] [place] [address]- 4904 Feb, [facility] [address] [id number] [place] [address]- 9735 Feb, [facility] [address] [id number] [place] [address]- 9181 Feb, [facility] [address] [id number] [place] [address]- 1860 Feb, [facility] [address] [id number] [place] [address]- 1605 Feb, [facility] [address] [facility] [id number] [place] [address]- 0685 Feb, [facility] [address] [id number] [place] [address]- 6081 Feb, [facility] [address] [id number], [place] [address]- 7698 04 Feb, 2012 [facility] [address] [id number] [place] [address]- 5416 19 Jan, 2012 [facility] [address] [id number] [place] [address]- 8156 13 Sep2011 [facility] [address] [id number] [place] [address]- 9827 11 Jan, 2012 [facility] [address] [id number] [place] [address]- 0896 Jan, [facility] [address] [id number] [place] [address]- 8300 Jan, [facility] [address] [id number] [place] [address]- 0415 Dec, [facility] [address] [id number] [place] [address]- 8457 Dec, [facility] [address] [id number] [place] [address]- 9042 Dec, [facility] [address] [id number] [place] [address]- 2315 Dec, [facility] [address] [id number] [place] [address]- 9358 Dec, [facility] [address] [id number] [place] [address]- 6724 Dec, [facility] [address] [id number] [place] [address]- 5308 Nov, [facility] [address] [id number] [place] [address]- 9597 Nov, [facility] [address] [id number] [place] [address]- 3973 Nov, [facility] [address] [id number] [place] [address]- 2756 Nov, [facility] [address] [id number] [place] [address]- 9656 Nov, [facility] [address] [id number] [place] [address]- 8038 Oct, [facility] [address] [id number] [place] [address]- 0247 Oct, [facility] [address] [id number] [place] [address]- 7191 Oct, [facility] [address] [id number] [place] [address]- 9413 September, [facility] [address] [id number] [place] [address] September, [facility] [address] [id number] [place] [address]- 7583 September, [facility] [address] [id number] [place] [address]- 1020 September, [facility] [address] [id number] [place] [address]- 3927 September, [facility] [address] [id number] [place] [address]- 0909 September, [facility] [address] [id number] [place] [address]- 7201 Aug, [facility] [address] [id number] [place] [address]- 2187 Aug, [facility] [address] [id number] [place] [address]- 3526 Aug, [facility] [address] [id number] [place] [address]- 6043 Jun, [facility] [address] [id number] [place] [address]- 6333 Jun, [facility] [address] [id number] [place] [address]- 4551 Jun, [facility] [place] [facility] [address] [id number] [place] [address]- 8151 Jun, [facility] [place] [facility] [address] [id number] [place] [address]- 1317 May, [facility] [place] [facility] [address] [id number] [place] [address]- 8309 May, [facility] [place] [facility] [address] [id number] [place] [address]- 1714 May, [facility] [address] [id number] [place] [address]- 8914 May, [facility] [address] [id number] [place] [address]- 8486 May, [facility] [place] [facility] [address] [id number] [place] [address]- 4480 Apr, [facility] [place] [facility] [address] [id number] [place] [address]- 9054 Apr, [facility] [address] [id number] [place] [address]- 3616 Apr, [facility] [place] [address] [id number] [place] [address]- 7661 Apr, [facility] [address] [id number] [place] [address]- 5380 Apr, [facility] [place] [facility] [address] [id number] [place] [address]- 7041 Apr, [facility] [place] [facility] [address] [id number] [place] [address]- 8599 Apr, [facility] [place] [facility] [address] [id number] [place] [address]- 5233 Mar, [facility] [place] [facility] [address] [id number] [place] [address]- 1924 Mar, [facility] [place] [facility] [address] [id number] [place] [address]- 8188 Mar, [facility] [place] [facility] [address] [id number] [place] [address]- 7854 Feb, [facility] [place] [facility] [address] [id number] [place] [address]- 3407 Feb, [facility] [place] [facility] [address] [id number] [place] [address]- 3680 Feb, [facility] [place] [facility] [address] [id number] [place] [address]- 1363 Feb, [facility] [place] [facility] [address] [id number] [place] [address]- 8956 18 Feb, 2011 [facility] [place] [facility] [address] [id number] [place] [address]- 4186 17 Feb, 2011 [facility] [place] [facility] [address] [id number] [place] [address]- 6876 Jan, [facility] [place] [facility] [address] [id number] [place] [address]- 7780 Jan, [facility] [place] [facility] [address] [id number] [place] [address]- 9855 September, [facility] [place] [facility] [address] [id number] [place] [address]- 5046 Jun, [facility] [place] [facility] [address] [id number] [place] [address]- 1662 Apr, [facility] [place] [facility] [address] [id number] [place] [address]- 6341 Apr, [facility] [place] [facility] [address] [id number] [place] [address]- 1745 Apr, [facility] [place] [facility] [address] [id number] [place] [address]- 1127 Apr, [facility] [place] [facility] [address] [id number] [place] [address] 2543 Apr, [facility] [place] [facility] [address] [id number] [place] [address] 2546 Mar, [facility] [place] [facility] [address] [id number] [place] [address]- 4565 Mar, [facility] [place] [facility] [address] [id number] [place] [address] 2546 Mar, [facility] [place] [facility] [address] [facility] [id number] [place] [address]- 6474 05 Mar, 2010 [facility] [address] [id number] [address]- 8314 27 Feb, 2010 [facility] [address] [id number], [place] [address]- 9598 15 Jan, 2010 [facility] [address] [id number], [place] [address]- 3146 Mar, [facility] [address] [id number], [place] [address]- 3364 15 Jan, 2009 [facility] [address] [id number], [place] [address]- 2299 Oct, [facility] [address] [id number], [place] [address]- 3030 Apr, IMMUNIZATIONS No Known Immunizations SOCIAL HISTORY Never Assessed REASON FOR VISIT Prior Authorization pending PLAN OF CARE VITAL SIGNS MEDICATIONS Unknown [...] foot Medical History High risk bisexual behavior Surgical History section x2 Surgical History Kidney Surgery- kidney stones removed Surgical History tonsillectomy and adenoidectomy Surgical History Tubal Ligation Surgical History Bladder surgery - Mesh Surgical History Genito-urinary tract surgery ablation 4-5 years ago and also placed a mesh in there Surgical History Dental Surgery- wisdom teeth Hospitalization History surgery
--- OUTSIDE RECORDS SUMMARY | 2018-03-22 21:40 | XMS REPORT ---
Author Author MCLEANJEVON Melendrez [facility] Address [address] [place] [address] Care Team Providers Care Ic Engineer Name Role Phone JEVON MCLEAN Unavailable PROBLEMS Type Condition ICD9-CM Code DLG90-YS Code Onset Dates Condition Status SNOMED Code Problem Bilateral low back pain without sciatica M54.5 Active 112368533 Problem Anxiety F41.9 Active 83322446 Problem Pre-diabetes R73.03 Active 366855261 Problem Essential hypertension I10 Active 99756389 Problem Irritable bowel syndrome without diarrhea K58.9 Active 50954153 Problem Body mass index (BMI) of 40.0-44.9 in adult Z68.41 Active 733094614 Problem Morbid (severe) obesity due to excess calories E66.01 Active 535528502 Problem Pain in right foot M79.671 Active [id number] Problem Pain in left foot M79.672 Active [id number] Problem Rhinosinusitis J32.9 Active 65145033 Problem Alternating constipation and diarrhea R19.8 Active [id number] ALLERGIES No Information ENCOUNTERS Encounter Location Date Diagnosis [facility] [id number] [place] [address] 58966- 1608 Jan, [facility] [id number] [place] [address] 88550- 0267 Jan, [facility] [id number] [place] [address] 21670- 6646 05 Jan, 2018 [facility] [address] [address] -[address]32 Jan, Dysuria R30.0 ; Acute cystitis with hematuria N30.01 ; Yeast infection B37.9 and BMI 40.0-44.9, adult Z68.41 [facility] [address] [place] [address]- 12[address] Dec, [place] [id number] [place] [address] 58806- 1424 Dec, [place] [id number] [place] [address] 82420- 1218 Nov, History of UTI Z87.440 [place] [id number] [place] [address] 03061- 2853 Nov, UTI symptoms R39.9 ; Acute nasopharyngitis J00 and BMI 40.0- 44.9, adult Z68.41 [facility] [id number] [place] [address] 60717- 5425 Nov, [facility] [id number] [place] [address] 76081- 1855 Nov, Yeast infection involving the vagina and surrounding area B37.3 [facility] [id number] [place] [address] 03424- 9296 Nov, Yeast infection involving the vagina and surrounding area B37.3 [facility] [id number] [place] [address] 44510- 5277 Nov, Yeast infection involving the vagina and surrounding area B37.3 ; Body mass index (BMI) of 40.0-44.9 in adult Z68.41 and Morbid (severe) obesity due to excess calories E66.01 [place] [id number] [place] [address] 00384- 8108 Oct, Abscess of groin, left L02.214 and Pre-diabetes R73.03 [place] [id number] [place] [address] 48490- 0316 September, Pre-diabetes R73.03 [place] [id number] [place] [address] 14638- 3976 Aug, [place] [id number] [place] [address] 61908- 0083 Jul, Bilateral low back pain without sciatica M54.5 [facility] [id number] [place] [address] 77773- 7641 Jun, [facility] [address] 84901- 7738 Jun, [facility] [address] 68281- 2387 Jun, [facility] [address] 64847- 3164 May, [facility] [address] 97971- 4639 May, Ingrown left greater toenail L60.0 [facility] [address] 04929- 7213 May, [facility] [address] 94529 -7452 May, Influenza A J10.1 ; Fever R50.9 and Body aches R52 [facility] [address] 86759- 7238 Apr, [facility] [id number] [place] [address] 48922- 5981 Apr, [facility] [id number] [place] [address] 53218- 3438 Apr, [facility] [address] 48607- 4570 Apr, Abscess L02.91 and Obesity (BMI 30-39.9) E66.9 [facility] [address] 20252- 0887 Apr, [facility] [address] 95278- 9492 Apr, [facility] [address] 79311- 4118 Mar, Acute non-recurrent maxillary sinusitis J01.00 [place] [id number] [place] [address] 01121- 8399 Feb, Heartburn R12 [place] [address] 59428- 9223 Feb, Heartburn R12 ; Low back pain M54.5 ; Essential hypertension I10 ; Bilateral low back pain without sciatica M54.5 ; Anxiety F41.9 ; Pre-diabetes R73.03 ; Other obesity due to excess calories E66.09 ; Alternating constipation and diarrhea R19.8 ; Dyspepsia R10.13 ; Generalized abdominal pain R10.84 ; Rhinosinusitis J32.9 and Boil L02.92 [place] [id number] [place] [address] 31359- 1549 Jan, Heartburn R12 [place] [address] 15456- 1517 Jan, [place] [address] 08455- 2555 Jan, [place] [address] 38243- 9089 Jan, Acute seasonal allergic rhinitis due to pollen J30.1 and Irritable bowel syndrome without diarrhea K58.9 [facility] [id number] [place] [address] 88133- 3844 Dec, Low back pain M54.5 and Acute cystitis with hematuria N30.01 [place] [address] 51374- 8791 Dec, Low back pain M54.5 and Acute cystitis with hematuria N30.01 [place] [address] 60066- 3791 Dec, Heartburn R12 ; Essential hypertension I10 ; Acute non- recurrent maxillary sinusitis J01.00 ; Bilateral low back pain without sciatica M54.5 ; Anxiety F41.9 ; Pre-diabetes R73.03 ; Pain in right foot M79.671 ; Pain in left foot M79.672 ; Other obesity due to excess calories E66.09 and Acute cystitis with hematuria N30.01 [place] [address] 69440- 3708 Dec, Bilateral low back pain without sciatica M54.5 ; Acute non- recurrent maxillary sinusitis J01.00 and Pre-diabetes R73.03 [place] [address] 64475- 7474 Oct, [facility] [address] 98903 -4345 Aug, [facility] [address] 52236 -3317 Aug, Acute vaginitis N76.0 ; Urinary frequency R35.0 ; Screen for STD (sexually transmitted disease) Z11.3 and Abscess L02.91 [place] [address] 49857- 0063 Aug, Plantar wart of right foot B07.0 [place] [address] 26927- 0124 Jul, Plantar wart of right foot B07.0 [place] [address] 95262- 4949 Jun, [place] [address] 74220- 4383 Jun, Heartburn R12 ; Essential hypertension I10 ; Anxiety F41.9 ; Folliculitis L73.9 and Plantar wart of right foot B07.0 [place] [address] 02882- 6606 Jun, [facility] [place] [address] 97366 -2965 May, Low back pain M54.5 and Other chronic pain G89.29 [facility] [id number] [place] [address] 56408- 0899 May, [facility] [address] 04995- 8771 May, [place] [address] 40344- 4622 May, Heartburn R12 ; Bilateral low back pain without sciatica M54.5 ; Essential hypertension I10 ; Long-term use of high-risk medication Z79.899 ; Anxiety F41.9 ; Impacted cerumen of right ear H61.21 ; Folliculitis L73.9 ; High risk bisexual behavior Z72.53 and General medical exam Z00.00 [place] [address] 90366- 9464 May, [place] [address] 83254- 3338 May, [place] [address] 11252- 7389 Mar, Acute nasopharyngitis J00 ; Acute intractable tension-type headache G44.201 and Cough R05 [place] [id number] [place] [address] 72110- 5726 Jan, [facility] [address] 13967 -8913 Jan, Abscess L02.91 [facility] [address] 68173 -7442 Jan, Urinary urgency R39.15 and Urinary tract infection without hematuria, site unspecified N39.0 [facility] [address] 98296- 0184 Jan, [place] [address] 35664- 7537 Jan, [place] [address] [address]- 2140 Dec, [facility] [id number] [place] [address] 83989- 6810 Dec, Dermatofibroma D23.9 [facility] [id number] [place] [address] 49052- 8570 September, [facility] [id number] [place] [address] 04121- 3416 Aug, [facility] [address] [place] [address] 90873- 2023 Aug, Pain in left knee M25.562 ; Heartburn R12 ; Bilateral low back pain without sciatica M54.5 ; Essential hypertension I10 ; Ingrown left big toenail L60.0 ; Chronic pain G89.29 ; Irritable bowel syndrome with constipation K58.9 and Skin infection L08.9 [facility] [address] [place] [address] 46264- 5220 Aug, [facility] [id number] [place] [address] 02146- 4359 Jul, [facility] [id number] [place] [address] 91613- 2301 Jun, [facility] [address] [address]- 0392 Jun, [facility] [address] [place] [address] 33361- 7976 Jun, [facility] [address] [place] [address] 41120- 8525 Jun, [facility] [address] [place] [address] 13933- 2252 Jun, Upper respiratory infection J06.9 ; Bilateral low back pain without sciatica M54.5 and Headache R51 [facility] [id number] [place] [address] 88610- 7379 May, [facility] [id number] [place] [address] 69547- 7443 Apr, Bilateral low back pain without sciatica M54.5 ; Upper respiratory infection J06.9 and Yeast dermatitis B37.2 [facility] [id number] [place] [address] 31456- 4982 Apr, [facility] [address] 64713- 3714 Apr, [facility] [address] 83452- 1772 Feb, [place] [address] 12152- 7696 Feb, [facility] [address] 39021- 9667 Feb, [facility] [address] 48811- 9641 Feb, Essential hypertension I10 ; Heartburn R12 ; Irritable bowel syndrome without diarrhea K58.9 ; Bilateral low back pain, with sciatica presence unspecified M54.5 and Upper respiratory infection J06.9 [place] [id number] [place] [address] 48856- 6098 Feb, [place] [id number] [place] [address] 72171- 9807 Feb, Generalized anxiety disorder F41.1 and Grief F43.20 [place] [id number] [place] [address] 52887- 3127 Jan, [place] [address] 39732- 9997 Jan, Back pain 724.5 ; Upper respiratory infection 465.9 ; HTN ( hypertension) 401.9 and Dyspepsia 536.8 [place] [id number] [place] [address] 07680- 2656 Dec, [facility] [id number] [place] [address] 50592- 3682 Nov, Back pain 724.5 ; Abdominal pain, bilateral lower quadrant 789.03 ; GERD (gastroesophageal reflux disease) 530.81 ; Upper respiratory infection 465.9 ; Dysuria 788.1 and HTN (hypertension) 401.9 [facility] [address] 15340- 6098 Nov, [facility] [address] 74188- 7644 Nov, [facility] [address] 20961- 5214 Nov, [place] [address] 21562- 7359 Nov, Cough 786.2 [place] [address] 70724- 8497 Nov, Cough 786.2 [facility] [id number] [place] [address] 03249- 6916 Oct, Unspecified episodic mood disorder 296.90 and Anxiety disorder, unspecified 300.00 [place] [id number] [place] [address] 54642- 2513 Oct, Abdominal pain, left upper quadrant 789.02 ; Essential hypertension, benign 401.1 ; Irritable bowel syndrome 564.1 ; Abscess 682.9 ; Heartburn 787.1 ; Acute sinusitis, unspecified 461.9 ; Muscle spasm of back 724.8 ; Cough 786.2 and Skin tag 701.9 [facility] [id number] [place] [address] 89473- 9642 September, [facility] [id number] [place] [address] 15542- 4019 September, [facility] [address] 74623- 2546 September, [facility] [place] [facility] [address] [id number] [place] [address]- 2113 14 Aug, 2014 [facility] [place] [facility] [address] [id number] [place] [address]- 4048 Aug, [facility] [place] [facility] [address] [id number] [place] [address]- 5722 30 Jul, 2014 [facility] [place] [facility] [address] [id number] [place] [address]- 3759 30 Jul, 2014 [facility] [place] [facility] [address] [id number] [place] [address]- 7203 Jul, [facility] [place] [facility] [address] [id number] [place] [address]- 7109 Jul, [facility] [place] [facility] [address] [id number] [place] [address]- 1069 Jul, [facility] [place] [facility] [address] [id number] [place] [address]- 0026 Jul, [facility] [place] [facility] [address] [id number] [place] [address]- 3303 Jul, [facility] [place] [facility] [address] [id number] [place] [address]- 1440 Jul, [facility] [place] [facility] [address] [id number] [place] [address]- 4333 Jul, [facility] [place] [facility] [address] [id number] [place] [address]- 8887 Jul, [facility] [place] [facility] [address] [id number] [place] [address]- 9257 Jul, [facility] [place] [facility] [address] [id number] [place] [address]- 3740 Jul, [facility] [place] [facility] [address] [id number] [place] [address]- 9659 Jul, [facility] [place] [facility] [address] [id number] [place] [address]- 3693 Jul, 2014 [facility] [place] [facility] [address] [id number] [place] [address]- 6931 Jul, 2014 [facility] [place] [facility] [address] [id number] [place] [address]- 2766 Jul, 2014 [facility] [place] [facility] [address] [id number] [place] [address]- 3843 Jul, 2014 [facility] [place] [facility] [address] [id number] [place] [address]- 8890 Jun, 2014 [facility] [place] [facility] [address] [id number] [place] [address]- 1953 Jun, 2014 [facility] [place] [facility] [address] [facility] [id number] [place] [address]- 6217 Jun, 2014 [facility] [place] [facility] [address] [facility] [id number] [place] [address]- 1343 Jun, 2014 [facility] [place] [facility] [address] [id number] [place] [address]- 9665 Jun, 2014 [facility] [place] [facility] [address] [facility] [id number] [place] [address]- 3997 Jun, 2014 [facility] [place] [facility] [address] [facility] [id number] [place] [address]- 5582 Jun, 2014 [facility] [place] [facility] [address] [facility] [id number] [place] [address]- 1565 Jun, 2014 [facility] [place] [facility] [address] [facility] [id number] [place] [address]- 3243 Apr, [facility] [place] [facility] [address] [id number] [place] [address]- 9165 Apr, [facility] [place] [facility] [address] [facility] [id number] [place] [address]- 6508 Apr, [facility] [place] [facility] [address] [facility] [id number] [place] [address]- 1631 Apr, [facility] [place] [facility] [address] [id number] [place] [address]- 2888 Apr, [facility] [place] [facility] [address] [id number] [place] 1696 Apr, [facility] [place] [facility] [address] [id number] [place] [address]- 8046 15 Apr, 2014 [facility] [place] [facility] [address] [id number] [place] [address]- 6218 15 Apr, 2014 [facility] [place] [facility] [address] [id number] [place] [address]- 1827 Apr, [facility] [place] [facility] [address] [id number] [place] [address]- 0030 Apr, [facility] [place] [facility] [address] [id number] [place] [address]- 9107 Apr, [facility] [place] [facility] [address] [id number] [place] [address]- 8170 Apr, [facility] [place] [facility] [address] [id number] [place] [address]- 0537 Apr, [facility] [place] [facility] [address] [id number] [place] [address]- 9294 Apr, [facility] [place] [facility] [address] [id number] [place] [address]- 3138 Apr, [facility] [place] [facility] [address] [id number] [place] [address]- 6641 Feb, [facility] [place] [facility] [address] [id number] [place] [address]- 8272 Feb, [facility] [place] [facility] [address] [id number] [place] 7184 Feb, [facility] [place] [facility] [address] [id number] [place] 7856 Feb, [facility] [place] [facility] [address] [id number] [place] [address]- 9357 Feb, [facility] [place] [facility] [address] [id number] [place] [address]- 1453 Feb, [facility] [place] [facility] [address] [id number] [place] [address]- 1206 Jan, 2013 [facility] [place] [facility] [address] [id number] [place] [address]- 3386 Jan, 2013 [facility] [place] [facility] [address] [id number] [place] [address]- 5869 Jan, 2013 [facility] [place] [facility] [address] [id number] [place] [address]- 6976 Jan, 2013 [facility] [place] [facility] [address] [id number] [place] [address]- 4154 Jan, 2013 [facility] [place] [facility] [address] [id number] [place] [address]- 3828 Jan, 2013 [facility] [place] [facility] [address] [id number] [place] [address]- 1958 Dec, [facility] [place] [facility] [address] [id number] [place] [address]- 7994 Dec, [facility] [place] [facility] [address] [id number] [place] [address]- 1180 Dec, [facility] [place] [facility] [address] [id number] [place] [address]- 9538 Dec, [facility] [place] [facility] [address] [id number] [place] [address]- 8804 Nov, [facility] [place] [facility] [address] [id number] [place] [address]- 1156 Nov, [facility] [place] [facility] [address] [id number] [place] [address]- 5435 Nov, [facility] [place] [facility] [address] [id number] [place] [address]- 7146 Nov, [facility] [place] [facility] [address] [id number] [place] [address]- 1437 Nov, [facility] [place] [facility] [address] [id number] [place] [address]- 5973 Nov, [facility] [place] [facility] [address] [id number] [place] [address]- 9887 Nov, [facility] [place] [facility] [address] [id number] [place] [address]- 3076 Nov, [facility] [place] [facility] [address] [id number] [place] [address]- 4678 Oct, [facility] [place] [facility] [address] [id number] [place] [address] Oct, [facility] [place] [facility] [address] [id number] [place] [address] Oct, [facility] [place] [facility] [address] [id number] [place] [address] Oct, [facility] [place] [facility] [address] [id number] [place] [address] Oct, [facility] [place] [facility] [address] [id number] [place] [address] Oct, [facility] [place] [facility] [address] [id number] [place] [address] Oct, [facility] [place] [facility] [address] [id number] [place] [address] Oct, [facility] [place] [facility] [address] [id number] [place] [address] Oct, [facility] [place] [facility] [address] [id number] [place] [address] Oct, [facility] [place] [facility] [address] [id number] [place] [address] Oct, [facility] [place] [facility] [address] [id number] [address] 23 Oct, 2013 [facility] [place] [facility] [address] [id number] [place] [address] 18 Oct, 2013 [facility] [place] [facility] [address] [id number] [place] [address]- [address] 18 Oct, 2013 [facility] [place] [facility] [address] [id number] [place] [address] 17 Oct, 2013 [facility] [place] [facility] [address] [id number] [place] [address]- [address] 17 Oct, 2013 [facility] [place] [facility] [address] [id number] [place] [address]- [address] 16 Oct, 2013 [facility] [place] [facility] [address] [id number] [place] [address]- 140[address] 16 Oct, 2013 [facility] [place] [facility] [address] [id number], [place] [address] Oct, [facility] [place] [facility] [address] [id number] [place] [address]- 48[address] Oct, [facility] [place] [facility] [address] [id number] [place] [address] Oct, [facility] [place] [facility] [address] [facility] [id number] [place] [address] Oct, [facility] [place] [facility] [address] [id number][place] [address] Oct, [facility] [place] [facility] [address] [id number] [address] Oct, [facility] [place] [facility] [address] [id number][place] [address] Oct, [facility] [place] [facility] [address] [id number], [place] [address] Oct, [facility] [place] [facility] [address] [facility] [id number] [address] Oct, [facility] [place] [facility] [address] [id number] [place] [address] Oct, [facility] [place] [facility] [address] [id number] [place] [address]598 Oct, [facility] [place] [facility] [address] [id number] [place] [address] Oct, [facility] [place] [facility] [address] [id number] [place] [address]- [address] September, [facility] [place] [facility] [address] [id number] [place] [address] September, [facility] [place] [facility] [address] [id number] [place] [address]- [address] September, [facility] [place] [facility] [address] [id number] [place] [address] September, [facility] [place] [facility] [address] [id number] [place] [address]27 September, [facility] [place] [facility] [address] [id number] [place] [address] September, [facility] [place] [facility] [address] [id number] [place] [address]- [address] September, [facility] [place] [facility] [address] [id number] [place] [address]- [address] September, [facility] [place] [facility] [address] [id number] [place] [address]- 288[address] September, [facility] [place] [facility] [address] [id number] [place] [address]- [address]75 September, [facility] [place] [facility] [address] [id number] [place] [address]- 76[address] September, [facility] [place] [facility] [address] [id number] [place] [address]- [address] September, [facility] [place] [facility] [address] [id number] [place] [address] 1985 September, [facility] [place] [facility] [address] [id number] [place] [address]- 277[address] September, [facility] [place] [facility] [address] [id number] [place] [address]- 4[address] September, [facility] [place] [facility] [address] [id number] [place] [address] September, [facility] [place] [facility] [address] [id number] [place] [address] 4080 September, [facility] [place] [facility] [address] [id number] [place] [address] 2826 September, [facility] [place] [facility] [address] [id number] [place] [address] 9279 Aug, [facility] [place] [facility] [address] [id number] [place] [address] 8155 Aug, [facility] [place] [facility] [address] [id number] [place] [address]- 9369 Aug, [facility] [place] [facility] [address] [id number] [place] [address] 3[address] Aug, [facility] [place] [facility] [address] [id number] [place] [address]- 6304 Aug, [facility] [place] [facility] [address] [id number] [place] [address] 6313 Aug, [facility] [place] [facility] [address] [id number] [place] [address] 8247 Jul, [facility] [place] [facility] [address] [id number] [place] [address]- 3293 Jul, [facility] [place] [facility] [address] [id number] [place] [address]- 9710 Jul, [facility] [place] [facility] [address] [id number] [place] [address]- 0390 Jul, [facility] [place] [facility] [address] [id number] [place] [address]- 2812 18 Jun, 2013 [facility] [address] [id number] [place] [address]- 3481 Jun, [facility] [place] [facility] [address] [id number] [place] [address]- 0341 18 Jun, 2013 [facility] [address] [id number] [place] [address]- 9344 Jun, [facility] [place] [facility] [address] [id number] [place] [address]- 3691 14 Mar, 2013 [facility] [place] [facility] [address] [id number] [place] [address]- 5397 14 Mar, 2013 [facility] [place] [facility] [address] [id number] [place] [address]- 8271 Mar, [facility] [place] [facility] [address] [id number] [place] [address]- 7277 Mar, [facility] [place] [facility] [address] [id number] [place] [address]- 9922 Feb, [facility] [place] [facility] [address] [id number] [place] [address]- 8754 Feb, [facility] [place] [facility] [address] [id number] [place] [address]- 7071 Feb, [facility] [place] [facility] [address] [id number] [place] [address]- 2161 Jan, [facility] [place] [facility] [address] [id number] [place] [address]- 2547 20 Jan, 2013 [facility] [place] [facility] [address] [id number] [place] [address]- 9337 12 Jan, 2013 [facility] [place] [facility] [address] [id number] [place] [address]- 2545 05 Jan, 2013 [facility] [place] [facility] [address] [id number] [place] [address]- 0591 Dec, [facility] [place] [facility] [address] [id number] [place] [address]- 6497 Dec, [facility] [place] [facility] [address] [id number] [place] [address]- 1346 Dec, [facility] [place] [facility] [address] [id number] [place] [address]- 6325 Dec, [facility] [place] [facility] [address] [id number] [place] [address]- 6511 Nov, [facility] [place] [facility] [address] [id number] [place] [address]- 7608 Nov, [facility] [place] [facility] [address] [id number] [place] [address]- 7825 Nov, [facility] [place] [facility] [address] [id number] [place] [address]- 8164 Nov, [facility] [place] [facility] [address] [id number] [place] [address]- 1461 Nov, [facility] [place] [facility] [address] [id number] [place] [address]- 5500 Nov, [facility] [place] [facility] [address] [id number] [place] [address]- 0631 Oct, [facility] [place] [facility] [address] [id number] [place] [address]- 4911 Oct, [facility] [place] [facility] [address] [id number] [address] 3[address] Oct, [facility] [place] [facility] [address] [id number] [place] [address]- 2484 Oct, [facility] [place] [facility] [address] [id number] [place] [address]- 2849 Oct, [facility] [place] [facility] [address] [id number] [place] [address]- 9859 Oct, [facility] [place] [facility] [address] [id number] [address] 27[address] 14 Oct, 2012 [facility] [address] [id number] [place] [address]- 5715 13 Oct, 2012 [facility] [address] [id number] [place] [address]- 1892 Oct, [facility] [address] [id number] [place] [address]- 6791 Oct, [facility] [address] [id number] [place] [address]- 6370 September, [facility] [address] [id number] [place] [address]- 9183 September, [facility] [address] [id number] [place] [address]- 9789 September, [facility] [address] [id number] [place] [address]- 2356 Aug, [facility] [address] [id number] [place] [address]- 0606 Aug, [facility] [address] [id number] [place] [address]- 0580 Aug, [facility] [address] [facility] [id number] [place] [address]- 5130 Aug, [facility] [address] [id number] [place] [address]- 3198 30 Jul, 2012 [facility] [place] [facility] [address] [id number] [place] [address]- 0060 29 Jul, 2012 [facility] [place] [facility] [address] [id number] [place] [address]- 0518 26 Jul, 2012 [facility] [place] [facility] [address] [id number] [place] [address]- 8654 Jul, [facility] [place] [facility] [address] [facility] [id number] [place] [address]- 2355 Jul, [facility] [place] [facility] [address] [id number] [place] [address]- 3601 Jul, [facility] [address] [id number] [place] [address]- 5063 May, [facility] [place] [facility] [address] [id number] [place] [address]- 2679 May, [facility] [address] [id number] [place] [address]- 8470 May, [facility] [place] [facility] [address] [id number] [place] [address]- 9883 May, [facility] [place] [facility] [address] [id number] [place] [address]- 1549 May, [facility] [place] [facility] [address] [id number] [place] [address]- 9440 May, [facility] [address] [id number] [place] [address]- 6717 May, [facility] [address] [id number] [place] [address]- 4883 18 May, 2012 [facility] [place] [facility] [address] [id number] [place] [address]- 3543 May, [facility] [address] [id number] [place] [address]- 9725 17 May, 2012 [facility] [place] [facility] [address] [id number] [place] [address]- 0484 16 May, 2012 [facility] [place] [facility] [address] [id number] [place] [address]- 5770 Apr, [facility] [place] [facility] [address] [id number] [place] [address]- 8478 Apr, [facility] [place] [facility] [address] [id number] [place] [address]- 1570 Apr, [facility] [place] [facility] [address] [id number] [place] [address]- 1180 Apr, [facility] [place] [facility] [address] [id number] [place] [address]- 7467 Apr, [facility] [place] [facility] [address] [id number] [place] [address]- 9035 Apr, [facility] [place] [facility] [address] [facility] [id number] [place] [address]- 9069 Mar, [facility] [place] [facility] [address] [id number] [place] [address]- 9985 Mar, [facility] [place] [facility] [address] [id number] [place] [address]- 8242 Mar, [facility] [place] [facility] [address] [id number] [place] [address]- 9898 Mar, [facility] [place] [facility] [address] [facility] [id number] [place] [address]- 0617 Mar, [facility] [place] [facility] [address] [id number] [address]- 0675 Mar, [facility] [place] [facility] [address] [id number] [place] [address]- 3942 Mar, [facility] [place] [facility] [address] [facility] [id number][place] [address]- 0611 Mar, [facility] [place] [facility] [address] [id number][place] [address]- 9575 Feb, [facility] [place] [facility] [address] [id number], [place] [address]- 9082 Feb, [facility] [place] [facility] [address] [id number], [place] [address]- 1527 16 Feb, 2012 [facility] [place] [facility] [address] [id number], [place] [address]- 2134 15 Feb, 2012 [facility] [place] [facility] [address] [facility] [id number], [place] [address]- 9660 Feb, [facility] [place] [facility] [address] [id number] [place] [address]- 8824 13 Feb, 2012 [facility] [place] [facility] [address] [id number] [place] [address]- 3094 Feb, [facility] [place] [facility] [address] [id number] [place] [address]- 4606 Feb, [facility] [place] [facility] [address] [id number] [place] [address]- 3483 Feb, [facility] [place] [facility] [address] [id number] [place] [address]- 5388 Feb, [facility] [place] [facility] [address] [id number] [place] [address]- 6255 Feb, [facility] [place] [facility] [address] [id number] [place] [address]- 6448 Feb, [facility] [place] [facility] [address] [id number] [place] [address]- 9075 Feb, [facility] [place] [facility] [address] [id number] [place] [address]- 4890 Feb, [facility] [place] [facility] [address] [id number] [place] [address]- 6707 Feb, [facility] [place] [facility] [address] [facility] [id number] [place] [address]- 4974 Feb, [facility] [place] [facility] [address] [id number] [place] [address]- 7661 Feb, [facility] [place] [facility] [address] [id number], [place] [address]- 8324 04 Feb, 2012 [facility] [place] [facility] [address] [id number] [place] [address]- 6594 19 Jan, 2012 [facility] [place] [facility] [address] [id number] [place] [address]- 3486 13 Sep2011 [facility] [place] [facility] [address] [id number] [place] [address]- 0650 11 Jan, 2012 [facility] [place] [facility] [address] [id number] [place] [address]- 4120 Jan, [facility] [place] [facility] [address] [id number] [place] [address]- 7464 Jan, [facility] [place] [facility] [address] [id number] [place] [address]- 0899 Dec, [facility] [place] [facility] [address] [id number] [place] [address]- 8291 Dec, [facility] [place] [facility] [address] [id number] [place] [address]- 4856 Dec, [facility] [place] [facility] [address] [id number] [place] [address]- 7270 Dec, [facility] [place] [facility] [address] [id number] [place] [address]- 6408 Dec, [facility] [place] [facility] [address] [id number] [place] [address]- 1005 Dec, [facility] [place] [facility] [address] [id number] [place] [address]- 5904 Nov, [facility] [place] [facility] [address] [id number] [place] [address]- 6337 Nov, [facility] [place] [facility] [address] [id number] [place] [address]- 5067 Nov, [facility] [place] [facility] [address] [id number] [place] [address]- 4475 Nov, [facility] [place] [facility] [address] [id number] [place] [address]- 3148 Nov, [facility] [place] [facility] [address] [id number] [place] [address]- 2440 Oct, [facility] [place] [facility] [address] [id number] [place] [address]- 0749 Oct, [facility] [place] [facility] [address] [id number] [place] [address]- 8359 Oct, [facility] [address] [id number] [place] [address]- 3093 September, [facility] [place] [facility] [address] [id number] [place] [address] September, [facility] [place] [facility] [address] [id number] [place] [address]- 2418 September, [facility] [place] [facility] [address] [id number] [place] [address]- 2425 September, [facility] [place] [facility] [address] [id number] [place] [address]- 2078 September, [facility] [place] [facility] [address] [id number] [place] [address]- 1930 September, [facility] [address] [id number] [place] [address]- 2136 Aug, [facility] [place] [facility] [address] [id number] [place] [address]- 7091 Aug, [facility] [place] [facility] [address] [id number] [place] [address]- 3355 Aug, [facility] [place] [facility] [address] [id number] [place] [address]- 1697 Jun, [facility] [place] [facility] [address] [id number] [place] [address]- 8494 Jun, [facility] [place] [facility] [address] [id number] [place] [address]- 5850 Jun, [facility] [place] [facility] [address] [id number] [place] [address]- 7336 Jun, [facility] [place] [facility] [address] [id number] [place] [address]- 9295 May, [facility] [place] [facility] [address] [id number] [place] [address]- 7725 May, [facility] [place] [facility] [address] [id number] [place] [address]- 5100 May, [facility] [place] [facility] [address] [id number] [place] [address]- 4498 May, [facility] [place] [facility] [address] [id number] [place] [address]- 9746 May, [facility] [place] [facility] [address] [id number] [place] [address]- 5663 Apr, [facility] [place] [facility] [address] [id number] [place] [address]- 7840 Apr, [facility] [place] [facility] [address] [id number] [place] [address]- 5229 Apr, [facility] [place] [facility] [address] [id number] [place] [address]- 8671 Apr, [facility] [place] [facility] [address] [id number] [place] [address]- 4157 Apr, [facility] [place] [facility] [address] [id number] [place] [address]- 3504 Apr, [facility] [place] [facility] [address] [id number] [place] [address]- 2149 Apr, [facility] [place] [facility] [address] [id number] [place] [address]- 6525 Mar, [facility] [place] [facility] [address] [id number] [place] [address]- 7874 Mar, [facility] [place] [facility] [address] [id number] [place] [address]- 8448 Mar, [facility] [place] [facility] [address] [id number] [place] [address]- 4018 Feb, [facility] [place] [facility] [address] [id number] [place] [address]- 0190 Feb, [facility] [place] [facility] [address] [id number] [place] [address]- 4869 Feb, [facility] [place] [facility] [address] [id number] [place] [address]- 6534 Feb, [facility] [place] [facility] [address] [id number] [place] [address]- 5306 18 Feb, 2011 [facility] [place] [facility] [address] [id number] [place] [address]- 5556 17 Feb, 2011 [facility] [place] [facility] [address] [id number] [place] [address]- 0686 Jan, [facility] [place] [facility] [address] [id number] [place] [address]- 9338 Jan, [facility] [place] [facility] [address] [id number] [place] [address]- 2163 September, [facility] [place] [facility] [address] [id number] [place] [address]- 4016 Jun, [facility] [place] [facility] [address] [id number] [place] [address]- 8368 Apr, [facility] [place] [facility] [address] [id number] [place] [address]- 6049 Apr, [facility] [place] [facility] [address] [id number] [place] [address]- 5280 Apr, [facility] [place] [facility] [address] [id number] [place] [address]- 1407 Apr, [facility] [place] [facility] [address] [id number] [place] [address] 2545 Apr, [facility] [place] [facility] [address] [id number] [place] [address] 2546 Mar, [facility] [place] [facility] [address] [id number] [place] [address]- 9734 Mar, [facility] [place] [facility] [address] [id number] [place] [address] 2546 Mar, [facility] [place] [facility] [address] [facility] [id number] [place] [address]- 8227 05 Mar, 2010 [facility] [address] [id number] [address]- 3521 27 Feb, 2010 [facility] [address] [id number] [address]- 5466 15 Jan, 2010 [facility] [address] [facility] [id number][place] [address]- 1116 Mar, [facility] [address] [id number] [address]- 5666 15 Jan, 2009 [facility] [address] [id number] [address]- 8478 Oct, [facility] [address] [id number] [address]- 8373 Apr, IMMUNIZATIONS No Known Immunizations SOCIAL HISTORY Never Assessed REASON FOR VISIT Medication question PLAN OF CARE VITAL SIGNS MEDICATIONS Unknown [...]
--- OUTSIDE RECORDS SUMMARY | 2018-03-22 21:40 | XMS REPORT ---
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 Name Role Phone KENYA VILLARREALTA Unavailable PROBLEMS Type Condition ICD9-CM Code IPV69-JD Code Onset Dates Condition Status SNOMED Code Problem Bilateral low back pain without sciatica M54.5 Active 351679217 Problem Anxiety F41.9 Active 09375608 Problem Pre-diabetes R73.03 Active 724528988 Problem Essential hypertension I10 Active 74656839 Problem Irritable bowel syndrome without diarrhea K58.9 Active 80963491 Problem Body mass index (BMI) of 40.0-44.9 in adult Z68.41 Active 848137700 Problem Morbid (severe) obesity due to excess calories E66.01 Active 068043158 Problem Pain in right foot M79.671 Active [id number] Problem Pain in left foot M79.672 Active 008456970558792 Problem Rhinosinusitis J32.9 Active 90059001 Problem Alternating constipation and diarrhea R19.8 Active 827102291 ALLERGIES No Information ENCOUNTERS Encounter Location Date Diagnosis [facility] [id number] [place] [address] 37182- 1730 Jan, [facility] [id number] [place] [address] 06172- 5485 Jan, [facility] [id number] [place] [address] 36210- 9841 05 Jan, 2018 [facility] [address] [address]84 -[address]753 Jan, Dysuria R30.0 ; Acute cystitis with hematuria N30.01 ; Yeast infection B37.9 and BMI 40.0-44.9, adult Z68.41 [facility] [address] 31353- 6889 Dec, [place] [id number] [place] [address] 19368- 2126 Dec, [place] [id number] [place] [address] [id number]- 3611 Nov, History of UTI Z87.440 [place] [id number] [place] [address] 08751- 0519 Nov, UTI symptoms R39.9 ; Acute nasopharyngitis J00 and BMI 40.0- 44.9, adult Z68.41 [place] [id number] [place] [address] 93044- 1671 Nov, [place] [id number] [place] [address] 90395- 7705 Nov, Yeast infection involving the vagina and surrounding area B37.3 [place] [id number] [place] [address] 52233- 9795 Nov, Yeast infection involving the vagina and surrounding area B37.3 [place] [id number] [place] [address] 27355- 0958 Nov, Yeast infection involving the vagina and surrounding area B37.3 ; Body mass index (BMI) of 40.0-44.9 in adult Z68.41 and Morbid (severe) obesity due to excess calories E66.01 [place] [address] [address] 9275 Oct, Abscess of groin, left L02.214 and Pre-diabetes R73.03 [place] [id number] [place] [address] 90200- 2138 September, Pre-diabetes R73.03 [place] [id number] [place] [address] 31688- 8853 Aug, [place] [id number] [place] [address] 04630- 6010 Jul, Bilateral low back pain without sciatica M54.5 [facility] [id number] [place] [address] 04991- 4829 Jun, [facility] [address] 33957- 3406 Jun, [facility] [address] 86472- 3792 Jun, [facility] [address] 26252- 9466 May, [facility] [address] 02489- 0726 May, Ingrown left greater toenail L60.0 [facility] [address] 76497- 7980 May, [facility] [address] 00683 -4007 May, Influenza A J10.1 ; Fever R50.9 and Body aches R52 [facility] [address] 17035- 5282 Apr, [facility] [address] 12577- 1790 Apr, [facility] [id number] [place] [address] 11947- 1820 Apr, [facility] [address] 19151- 8506 Apr, Abscess L02.91 and Obesity (BMI 30-39.9) E66.9 [facility] [address] 26422- 2540 Apr, [facility] [address] 15559- 0917 Apr, [facility] [address] 11122- 9121 Mar, Acute non-recurrent maxillary sinusitis J01.00 [place] [id number] [place] [address] 64186- 1082 Feb, Heartburn R12 [place] [address] 45706- 9479 Feb, Heartburn R12 ; Low back pain M54.5 ; Essential hypertension I10 ; Bilateral low back pain without sciatica M54.5 ; Anxiety F41.9 ; Pre-diabetes R73.03 ; Other obesity due to excess calories E66.09 ; Alternating constipation and diarrhea R19.8 ; Dyspepsia R10.13 ; Generalized abdominal pain R10.84 ; Rhinosinusitis J32.9 and Boil L02.92 [place] [address] 26127- 0016 Jan, Heartburn R12 [place] [address] 95063- 0219 Jan, [place] [address] 40091- 8261 Jan, [place] [address] 72545- 1095 Jan, Acute seasonal allergic rhinitis due to pollen J30.1 and Irritable bowel syndrome without diarrhea K58.9 [place] [address] 46886- 5304 Dec, Low back pain M54.5 and Acute cystitis with hematuria N30.01 [place] [address] 63643- 7139 Dec, Low back pain M54.5 and Acute cystitis with hematuria N30.01 [place] [address] 79927- 9762 Dec, Heartburn R12 ; Essential hypertension I10 ; Acute non- recurrent maxillary sinusitis J01.00 ; Bilateral low back pain without sciatica M54.5 ; Anxiety F41.9 ; Pre-diabetes R73.03 ; Pain in right foot M79.671 ; Pain in left foot M79.672 ; Other obesity due to excess calories E66.09 and Acute cystitis with hematuria N30.01 [place] [address] 96358- 0669 Dec, Bilateral low back pain without sciatica M54.5 ; Acute non- recurrent maxillary sinusitis J01.00 and Pre-diabetes R73.03 [place] [address] 10378- 5497 Oct, [facility] [address] 96194 -0511 Aug, [facility] [address] 70652 -1258 Aug, Acute vaginitis N76.0 ; Urinary frequency R35.0 ; Screen for STD (sexually transmitted disease) Z11.3 and Abscess L02.91 [place] [address] 38035- 0669 Aug, Plantar wart of right foot B07.0 [place] [address] 50404- 7836 Jul, Plantar wart of right foot B07.0 [place] [address] 71447- 4075 Jun, [place] [address] 57029- 0469 Jun, Heartburn R12 ; Essential hypertension I10 ; Anxiety F41.9 ; Folliculitis L73.9 and Plantar wart of right foot B07.0 [place] [address] 84097- 8195 Jun, [facility] [place] [address] 59232 -6518 May, Low back pain M54.5 and Other chronic pain G89.29 [facility] [id number] [place] [address] 48189- 6685 May, [facility] [address] 57908- 2627 May, [facility] [address] 10147- 7421 May, Heartburn R12 ; Bilateral low back pain without sciatica M54.5 ; Essential hypertension I10 ; Long-term use of high-risk medication Z79.899 ; Anxiety F41.9 ; Impacted cerumen of right ear H61.21 ; Folliculitis L73.9 ; High risk bisexual behavior Z72.53 and General medical exam Z00.00 [place] [address] 30242- 2225 May, [place] [address] 50553- 2933 May, [place] [address] 54042- 4999 Mar, Acute nasopharyngitis J00 ; Acute intractable tension-type headache G44.201 and Cough R05 [place] [id number] [place] [address] 19105- 1401 Jan, [facility] [address] 89062 -4589 Jan, 2016 Abscess L02.91 [facility] [address] 58304 -3653 Jan, Urinary urgency R39.15 and Urinary tract infection without hematuria, site unspecified N39.0 [facility] [address] 96135- 9219 Jan, [facility] [address] 58323- 5722 Jan, [place] [address] [address]- 7467 Dec, [facility] [id number] [place] [address] 58560- 8394 Dec, Dermatofibroma D23.9 [facility] [id number] [place] [address] 33277- 1329 September, [facility] [id number] [place] [address] 65792- 8401 Aug, [facility] [id number] [place] [address] 42140- 9738 Aug, Pain in left knee M25.562 ; Heartburn R12 ; Bilateral low back pain without sciatica M54.5 ; Essential hypertension I10 ; Ingrown left big toenail L60.0 ; Chronic pain G89.29 ; Irritable bowel syndrome with constipation K58.9 and Skin infection L08.9 [facility] [id number] [place] [address] 21004- 3877 Aug, [facility] [id number] [place] [address] 82474- 1754 Jul, [facility] [id number] [place] [address] 99661- 9747 Jun, [facility] [id number] [place] [address] 17376- 8469 Jun, [facility] [id number] [place] [address] 21074- 4389 Jun, [facility] [address] [place] [address] 93457- 5423 Jun, [facility] [id number] [place] [address] 83860- 3156 Jun, Upper respiratory infection J06.9 ; Bilateral low back pain without sciatica M54.5 and Headache R51 [facility] [id number] [place] [address] 32152- 5108 May, [facility] [id number] [place] [address] 13630- 0895 Apr, Bilateral low back pain without sciatica M54.5 ; Upper respiratory infection J06.9 and Yeast dermatitis B37.2 [facility] [id number] [place] [address] 90679- 7156 Apr, [facility] [address] 61518- 0332 Apr, [facility] [id number] [place] [address] 15733- 6447 Feb, [facility] [id number] [place] [address] 64085- 9007 Feb, [facility] [id number] [place] [address] 31631- 6395 Feb, [facility] [id number] [place] [address] 00377- 7742 Feb, Essential hypertension I10 ; Heartburn R12 ; Irritable bowel syndrome without diarrhea K58.9 ; Bilateral low back pain, with sciatica presence unspecified M54.5 and Upper respiratory infection J06.9 [place] [id number] [place] [address] 28130- 9474 Feb, [place] [id number] [place] [address] 58637- 0403 Feb, Generalized anxiety disorder F41.1 and Grief F43.20 [facility] [id number] [place] [address] 86752- 6396 Jan, [place] [id number] [place] [address] 80121- 7238 Jan, Back pain 724.5 ; Upper respiratory infection 465.9 ; HTN ( hypertension) 401.9 and Dyspepsia 536.8 [place] [id number] [place] [address] 80984- 1390 Dec, [facility] [id number] [place] [address] 97890- 0174 Nov, Back pain 724.5 ; Abdominal pain, bilateral lower quadrant 789.03 ; GERD (gastroesophageal reflux disease) 530.81 ; Upper respiratory infection 465.9 ; Dysuria 788.1 and HTN (hypertension) 401.9 [facility] [address] 92431- 1049 Nov, [facility] [address] 47712- 4184 Nov, [place] [address] 32604- 3736 Nov, [place] [address] 85363- 5973 Nov, Cough 786.2 [place] [address] 46366- 9621 Nov, Cough 786.2 [place] [id number] [place] [address] 78472- 5230 Oct, Unspecified episodic mood disorder 296.90 and Anxiety disorder, unspecified 300.00 [place] [id number] [place] [address] 56295- 1120 Oct, Abdominal pain, left upper quadrant 789.02 ; Essential hypertension, benign 401.1 ; Irritable bowel syndrome 564.1 ; Abscess 682.9 ; Heartburn 787.1 ; Acute sinusitis, unspecified 461.9 ; Muscle spasm of back 724.8 ; Cough 786.2 and Skin tag 701.9 [place] [id number] [place] [address] 33031- 1804 September, [place] [id number] [place] [address] 80689- 8067 September, [facility] [address] 46908- 9276 September, [facility] [place] [facility] [address] [id number] [place] [address]- 1549 14 Aug, 2014 [facility] [place] [facility] [address] [id number] [place] [address]- 0051 Aug, [facility] [place] [facility] [address] [id number] [place] [address]- 0603 30 Jul, 2014 [facility] [place] [facility] [address] [id number] [place] [address]- 9152 30 Jul, 2014 [facility] [place] [facility] [address] [id number] [place] [address]- 1305 Jul, [facility] [place] [facility] [address] [id number] [place] [address]- 1298 Jul, [facility] [place] [facility] [address] [id number] [place] [address]- 0579 Jul, [facility] [place] [facility] [address] [id number] [place] [address]- 5762 Jul, [facility] [place] [facility] [address] [id number] [place] [address]- 9119 Jul, [facility] [place] [facility] [address] [id number] [place] [address]- 1582 Jul, [facility] [place] [facility] [address] [id number] [place] [address]- 4185 Jul, [facility] [place] [facility] [address] [id number] [place] [address]- 8006 Jul, [facility] [place] [facility] [address] [id number] [place] [address]- 6472 Jul, [facility] [place] [facility] [address] [id number] [place] [address]- 2191 Jul, [facility] [place] [facility] [address] [id number] [place] [address]- 6221 Jul, [facility] [place] [facility] [address] [id number] [place] [address]- 0858 Jul, 2014 [facility] [place] [facility] [address] [id number] [place] [address]- 5854 Jul, 2014 [facility] [place] [facility] [address] [id number] [place] [address]- 2853 Jul, 2014 [facility] [place] [facility] [address] [id number] [place] [address]- 7046 Jul, 2014 [facility] [place] [facility] [address] [id number] [place] [address]- 6658 Jun, 2014 [facility] [place] [facility] [address] [id number] [place] [address]- 5991 Jun, 2014 [facility] [place] [facility] [address] [facility] [id number] [place] [address]- 8419 Jun, 2014 [facility] [place] [facility] [address] [facility] [id number] [place] [address]- 4909 Jun, 2014 [facility] [place] [facility] [address] [id number] [place] [address]- 7316 Jun, 2014 [facility] [place] [facility] [address] [facility] [id number] [place] [address]- 0419 Jun, 2014 [facility] [place] [facility] [address] [facility] [id number] [place] [address]- 1210 Jun, 2014 [facility] [place] [facility] [address] [facility] [id number] [place] [address]- 5431 Jun, 2014 [facility] [place] [facility] [address] [id number] [place] [address]- 8414 Apr, [facility] [place] [facility] [address] [id number] [place] [address]- 0737 Apr, [facility] [place] [facility] [address] [facility] [id number] [place] [address]- 5096 Apr, [facility] [place] [facility] [address] [facility] [id number] [address]- 4389 Apr, [facility] [place] [facility] [address] [id number] [place] [address]- 3780 18 Apr, 2014 [facility] [place] [facility] [address] [id number] [place] 9068 Apr, [facility] [place] [facility] [address] [id number] [place] [address]- 6717 15 Apr, 2014 [facility] [place] [facility] [address] [id number] [place] [address]- 7896 15 Apr, 2014 [facility] [place] [facility] [address] [id number] [place] [address]- 6926 Apr, [facility] [place] [facility] [address] [id number] [place] [address]- 9967 Apr, [facility] [place] [facility] [address] [id number] [place] [address]- 8792 Apr, [facility] [place] [facility] [address] [id number] [place] [address]- 1528 Apr, [facility] [place] [facility] [address] [id number] [place] [address]- 1334 Apr, [facility] [place] [facility] [address] [id number] [place] [address]- 8794 Apr, [facility] [place] [facility] [address] [id number] [place] [address]- 7666 Apr, [facility] [place] [facility] [address] [id number], [place] [address]- 9167 Feb, [facility] [place] [facility] [address] [id number] [place] [address]- 4677 Feb, [facility] [place] [facility] [address] [id number] [place] 7808 Feb, [facility] [place] [facility] [address] [id number] [place]- 4729 Feb, [facility] [place] [facility] [address] [id number] [place] [address]- 7176 Feb, [facility] [place] [facility] [address] [id number] [place] [address]- 6507 Feb, [facility] [place] [facility] [address] [id number] [place] [address]- 0196 Jan, 2013 [facility] [place] [facility] [address] [id number] [place] [address]- 0386 Jan, 2013 [facility] [place] [facility] [address] [id number] [place] [address]- 5108 Jan, 2013 [facility] [place] [facility] [address] [id number] [place] [address]- 6319 Jan, 2013 [facility] [place] [facility] [address] [id number] [place] [address]- 7296 Jan, 2013 [facility] [place] [facility] [address] [id number] [place] [address]- 2333 Jan, 2013 [facility] [place] [facility] [address] [id number] [place] [address]- 1668 Dec, [facility] [place] [facility] [address] [id number] [place] [address]- 4121 Dec, [facility] [place] [facility] [address] [id number] [place] [address]- 9266 Dec, [facility] [place] [facility] [address] [id number] [place] [address]- 5748 Dec, [facility] [place] [facility] [address] [id number] [place] [address]- 1933 Nov, [facility] [place] [facility] [address] [id number] [place] [address]- 8811 Nov, [facility] [place] [facility] [address] [id number] [place] [address]- 0078 Nov, [facility] [place] [facility] [address] [id number] [place] [address]- 4798 Nov, [facility] [place] [facility] [address] [id number] [place] [address]- 7057 Nov, [facility] [place] [facility] [address] [id number] [place] [address]- 1588 Nov, [facility] [place] [facility] [address] [id number] [place] [address]- 5481 Nov, [facility] [place] [facility] [address] [id number] [place] [address]- 8638 Nov, [facility] [place] [facility] [address] [id number] [place] [address]- 6622 Oct, [facility] [place] [facility] [address] [id number] [place] [address]- 5547 Oct, [facility] [place] [facility] [address] [id number] [place] [address]- 2137 Oct, [facility] [place] [facility] [address] [id number] [place] [address]- 4996 Oct, [facility] [place] [facility] [address] [id number] [place] [address]- 1132 Oct, [facility] [place] [facility] [address] [id number] [place] [address]- 9912 Oct, [facility] [place] [facility] [address] [id number] [place] [address]- 7988 Oct, [facility] [place] [facility] [address] [id number] [place] [address]- 8900 Oct, [facility] [place] [facility] [address] [id number] [place] [address]- 1304 Oct, [facility] [place] [facility] [address] [id number] [place] [address]- 4691 Oct, [facility] [place] [facility] [address] [id number] [place] [address]- 3816 Oct, [facility] [place] [facility] [address] [id number], [place] [address]- 2573 23 Oct, 2013 [facility] [place] [facility] [address] [id number] [place] [address] 18 Oct, 2013 [facility] [place] [facility] [address] [id number] [place] [address] 18 Oct, 2013 [facility] [place] [facility] [address] [id number] [place] [address] 17 Oct, 2013 [facility] [place] [facility] [address] [id number] [place] [address] 17 Oct, 2013 [facility] [place] [facility] [address] [id number] [place] [address] 16 Oct, 2013 [facility] [place] [facility] [address] [id number] [place] [address] 16 Oct, 2013 [facility] [place] [facility] [address] [id number] [place] [address] 13 Oct, 2013 [facility] [place] [facility] [address] [id number] [place] [address] Oct, [facility] [place] [facility] [address] [id number] [place] [address] Oct, [facility] [place] [facility] [address] [facility] [id number] [place] [address] Oct, [facility] [place] [facility] [address] [id number] [address] Oct, [facility] [place] [facility] [address] [id number] [address] Oct, [facility] [place] [facility] [address] [id number] [place] [address] Oct, [facility] [place] [facility] [address] [id number] [place] [address] Oct, [facility] [place] [facility] [address] [facility] [place] [facility] [id number] [place] [address] 96[address] Oct, [facility] [place] [facility] [address] [id number] [place] [address] Oct, [facility] [place] [facility] [address] [id number] [place] [address] Oct, [facility] [place] [facility] [address] [id number] [place] [address] Oct, [facility] [place] [facility] [address] [id number] [place] [address] September, [facility] [place] [facility] [address] [id number] [place] [address] September, [facility] [place] [facility] [address] [id number] [place] [address] September, [facility] [place] [facility] [address] [id number] [place] [address] September, [facility] [place] [facility] [address] [id number] [place] [address] September, [facility] [place] [facility] [address] [id number] [place] [address] 48[address] September, [facility] [place] [facility] [address] [id number] [place] [address] September, [facility] [place] [facility] [address] [id number] [place] [address] September, [facility] [place] [facility] [address] [id number] [place] [address]28 September, [facility] [place] [facility] [address] [id number] [place] [address] September, [facility] [place] [facility] [address] [id number] [place] [address] September, [facility] [place] [facility] [address] [id number] [place] [address] September, [facility] [place] [facility] [address] [id number] [place] [address] September, [facility] [place] [facility] [address] [id number] [place] [address] 6[address] September, [facility] [place] [facility] [address] [id number] [place] [address] September, [facility] [place] [facility] [address] [id number] [place] [address] 1495 September, [facility] [place] [facility] [address] [id number] [place] [address] September, [facility] [place] [facility] [address] [id number] [place] [address] September, [facility] [place] [facility] [address] [id number] [place] [address] Aug, [facility] [place] [facility] [address] [id number] [place] [address] 89[address] Aug, [facility] [place] [facility] [address] [id number] [place] [address] 0433 Aug, [facility] [place] [facility] [address] [id number] [place] [address] 3618 Aug, [facility] [place] [facility] [address] [id number] [place] [address] 6228 Aug, [facility] [place] [facility] [address] [id number] [place] [address]- 1567 Aug, [facility] [place] [facility] [address] [id number] [place] [address] 1121 Jul, [facility] [place] [facility] [address] [id number] [place] [address] 8869 Jul, [facility] [place] [facility] [address] [id number] [place] [address] 2465 Jul, [facility] [place] [facility] [address] [id number] [place] [address]- 9512 Jul, [facility] [place] [facility] [address] [id number] [place] [address] 7014 18 Jun, 2013 [facility] [address] [id number] [place] [address]- 0940 Jun, [facility] [place] [facility] [address] [id number] [place] [address]- 8727 18 Jun, 2013 [facility] [place] [facility] [address] [id number] [place] [address]- 8831 Jun, [facility] [place] [facility] [address] [id number] [place] [address]- 7157 14 Mar, 2013 [facility] [place] [facility] [address] [id number] [place] [address]- 7513 14 Mar, 2013 [facility] [place] [facility] [address] [id number] [place] [address]- 5368 Mar, [facility] [place] [facility] [address] [id number] [place] [address]- 0074 Mar, [facility] [place] [facility] [address] [id number] [place] [address]- 4510 Feb, [facility] [place] [facility] [address] [facility] [id number] [place] [address]- 9048 Feb, [facility] [place] [facility] [address] [facility] [id number] [place] [address]- 7515 Feb, [facility] [place] [facility] [address] [id number] [place] [address]- 2548 Jan, [facility] [place] [facility] [address] [id number] [place] [address]- 9010 20 Jan, 2013 [facility] [place] [facility] [address] [id number] [place] [address]- 9907 12 Jan, 2013 [facility] [place] [facility] [address] [id number] [place] [address]- 7930 05 Jan, 2013 [facility] [place] [facility] [address] [id number] [place] [address]- 9181 Dec, [facility] [place] [facility] [address] [id number] [place] [address]- 6983 Dec, [facility] [place] [facility] [address] [id number] [place] [address]- 9005 Dec, [facility] [place] [facility] [address] [id number] [place] [address]- 6138 Dec, [facility] [place] [facility] [address] [id number] [place] [address]- 3298 Nov, [facility] [place] [facility] [address] [id number] [place] [address]- 4193 Nov, [facility] [place] [facility] [address] [id number] [place] [address]- 2895 Nov, [facility] [place] [facility] [address] [id number] [place] [address]- 2260 Nov, [facility] [place] [facility] [address] [id number] [place] [address]- 2458 Nov, [facility] [place] [facility] [address] [id number] [place] [address]- 7152 Nov, [facility] [place] [facility] [address] [id number] [place] [address]- 7657 Oct, [facility] [place] [facility] [address] [id number] [place] [address]- 9683 Oct, [facility] [place] [facility] [address] [id number] [address] 27[address] Oct, [facility] [place] [facility] [address] [id number] [place] [address]- 5429 Oct, [facility] [place] [facility] [address] [id number] [place] [address]- 2641 Oct, [facility] [place] [facility] [address] [id number] [place] [address]- 0607 Oct, [facility] [place] [facility] [address] [id number] [place] [address]- 2054 14 Oct, 2012 [facility] [address] [id number] [place] [address]- 8627 Oct, [facility] [place] [facility] [address] [id number] [place] [address]- 3978 Oct, [facility] [address] [id number] [place] [address]- 4901 Oct, [facility] [address] [id number] [place] [address]- 9800 September, [facility] [address] [id number] [place] [address]- 8026 September, [facility] [address] [id number] [place] [address]- 0605 September, [facility] [address] [id number] [place] [address]- 6746 Aug, [facility] [place] [facility] [address] [id number] [place] [address]- 8233 Aug, [facility] [address] [id number] [place] [address]- 0507 Aug, [facility] [place] [facility] [address] [id number] [place] [address]- 4069 Aug, [facility] [address] [id number] [place] [address]- 8674 30 Jul, 2012 [facility] [place] [facility] [address] [id number] [place] [address]- 7643 29 Jul, 2012 [facility] [place] [facility] [address] [id number] [place] [address]- 7225 26 Jul, 2012 [facility] [place] [facility] [address] [id number] [place] [address]- 5001 Jul, [facility] [place] [facility] [address] [id number] [place] [address]- 0305 Jul, [facility] [place] [facility] [address] [id number] [place] [address]- 3690 Jul, [facility] [address] [id number] [place] [address]- 3606 May, [facility] [place] [facility] [address] [id number] [place] [address]- 6406 May, [facility] [address] [id number] [place] [address]- 7078 May, [facility] [address] [id number] [place] [address]- 2032 May, [facility] [address] [id number] [place] [address]- 7153 May, [facility] [address] [id number] [place] [address]- 4772 May, [facility] [address] [id number] [place] [address]- 1922 May, [facility] [address] [id number] [place] [address]- 0567 18 May, 2012 [facility] [address] [id number] [place] [address]- 6670 May, [facility] [address] [id number] [place] [address]- 1446 17 May, 2012 [facility] [address] [id number] [place] [address]- 4749 16 May, 2012 [facility] [address] [id number] [place] [address]- 0336 Apr, [facility] [place] [facility] [address] [id number] [place] [address]- 9874 Apr, [facility] [place] [facility] [address] [id number] [place] [address]- 7666 Apr, [facility] [address] [id number] [place] [address]- 5618 Apr, [facility] [place] [facility] [address] [id number] [place] [address]- 9313 Apr, [facility] [place] [facility] [address] [id number] [place] [address]- 9812 Apr, [facility] [place] [facility] [address] [id number] [place] [address]- 6721 Mar, [facility] [place] [facility] [address] [id number] [place] [address]- 4516 Mar, [facility] [place] [facility] [address] [id number] [place] [address]- 3251 Mar, [facility] [place] [facility] [address] [id number] [place] [address]- 0572 Mar, [facility] [place] [facility] [address] [facility] [id number] [place] [address]- 2522 Mar, [facility] [place] [facility] [address] [id number], [place] [address]- 7499 Mar, [facility] [place] [facility] [address] [id number] [place] [address]- 9377 Mar, [facility] [place] [facility] [address] [id number], [place] [address]- 7341 Mar, [facility] [place] [facility] [address] [id number], [place] [address]- 1300 Feb, [facility] [place] [facility] [address] [id number], [place] [address]- 6804 Feb, [facility] [place] [facility] [address] [id number], [place] [address]- 7126 16 Feb, 2012 [facility] [place] [facility] [address] [id number], [place] [address]- 5144 Feb, [facility] [place] [facility] [address] [facility] [id number], [place] [address]- 3540 Feb, [facility] [place] [facility] [address] [id number] [place] [address]- 8355 13 Feb, 2012 [facility] [place] [facility] [address] [id number] [place] [address]- 1756 Feb, [facility] [place] [facility] [address] [id number] [place] [address]- 4843 Feb, [facility] [place] [facility] [address] [id number] [place] [address]- 5986 Feb, [facility] [place] [facility] [address] [id number] [place] [address]- 1847 Feb, [facility] [place] [facility] [address] [id number] [place] [address]- 3619 Feb, [facility] [place] [facility] [address] [id number] [place] [address]- 2469 Feb, [facility] [place] [facility] [address] [id number] [place] [address]- 1871 Feb, [facility] [place] [facility] [address] [id number] [place] [address]- 2806 Feb, [facility] [place] [facility] [address] [id number] [place] [address]- 6875 Feb, [facility] [place] [facility] [address] [id number] [place] [address]- 4523 Feb, [facility] [place] [facility] [address] [id number] [place] [address]- 3492 Feb, [facility] [place] [facility] [address] [id number], [place] [address]- 4057 04 Feb, 2012 [facility] [place] [facility] [address] [id number] [place] [address]- 7428 19 Jan, 2012 [facility] [place] [facility] [address] [id number] [place] [address]- 1672 13 Jan, 2012 [facility] [place] [facility] [address] [id number], [place] [address]- 2198 11 Jan, 2012 [facility] [place] [facility] [address] [id number] [place] [address]- 7694 Jan, [facility] [place] [facility] [address] [id number] [place] [address]- 7463 Jan, [facility] [place] [facility] [address] [id number] [place] [address]- 5916 Dec, [facility] [place] [facility] [address] [id number] [place] [address]- 8798 Dec, [facility] [place] [facility] [address] [id number] [place] [address]- 0737 Dec, [facility] [place] [facility] [address] [id number] [place] [address]- 0716 Dec, [facility] [place] [facility] [address] [id number] [place] [address]- 7901 Dec, [facility] [place] [facility] [address] [id number] [place] [address]- 9924 Dec, [facility] [place] [facility] [address] [id number] [place] [address]- 0604 Nov, [facility] [place] [facility] [address] [id number] [place] [address]- 6752 Nov, [facility] [place] [facility] [address] [id number] [place] [address]- 0844 Nov, [facility] [place] [facility] [address] [id number] [place] [address]- 5309 Nov, [facility] [place] [facility] [address] [id number] [place] [address]- 6737 Nov, [facility] [place] [facility] [address] [id number] [place] [address]- 9805 Oct, [facility] [place] [facility] [address] [id number] [place] [address]- 9228 Oct, [facility] [place] [facility] [address] [id number] [place] [address]- 1113 Oct, [facility] [address] [id number] [place] [address]- 1647 September, [facility] [address] [id number] [place] [address] September, [facility] [place] [facility] [address] [id number] [place] [address]- 1644 September, [facility] [place] [facility] [address] [id number] [place] [address]- 2508 September, [facility] [address] [id number] [place] [address]- 3819 September, [facility] [address] [id number] [place] [address]- 3427 September, [facility] [address] [id number] [place] [address]- 0435 Aug, [facility] [place] [facility] [address] [id number] [place] [address]- 1816 Aug, [facility] [address] [id number] [place] [address]- 9424 Aug, [facility] [place] [facility] [address] [id number] [place] [address]- 0773 Jun, [facility] [place] [facility] [address] [id number] [place] [address]- 3327 Jun, [facility] [place] [facility] [address] [id number] [place] [address]- 6835 Jun, [facility] [place] [facility] [address] [id number] [place] [address]- 0963 Jun, [facility] [place] [facility] [address] [id number] [place] [address]- 2293 May, [facility] [place] [facility] [address] [id number] [place] [address]- 3573 May, [facility] [place] [facility] [address] [id number] [place] [address]- 6000 May, [facility] [place] [facility] [address] [id number] [place] [address]- 5622 May, [facility] [place] [facility] [address] [id number] [place] [address]- 8216 May, [facility] [place] [facility] [address] [id number] [place] [address]- 6193 Apr, [facility] [place] [facility] [address] [id number] [place] [address]- 9766 Apr, [facility] [place] [facility] [address] [id number] [place] [address]- 6338 Apr, [facility] [place] [facility] [address] [id number] [place] [address]- 1931 Apr, [facility] [place] [facility] [address] [id number] [place] [address]- 1633 Apr, [facility] [place] [facility] [address] [id number] [place] [address]- 9926 Apr, [facility] [place] [facility] [address] [id number] [place] [address]- 4195 Apr, [facility] [place] [facility] [address] [id number] [place] [address]- 4799 Mar, [facility] [place] [facility] [address] [id number] [place] [address]- 7239 Mar, [facility] [place] [facility] [address] [id number] [place] [address]- 1252 Mar, [facility] [place] [facility] [address] [id number] [place] [address]- 2603 Feb, [facility] [place] [facility] [address] [id number] [place] [address]- 0077 Feb, [facility] [place] [facility] [address] [id number] [place] [address]- 6845 Feb, [facility] [place] [facility] [address] [id number] [place] [address]- 6732 Feb, [facility] [place] [facility] [address] [id number] [place] [address]- 3616 18 Feb, 2011 [facility] [place] [facility] [address] [id number] [place] [address]- 8586 17 Feb, 2011 [facility] [place] [facility] [address] [id number] [place] [address]- 2778 13 Jan, 2011 [facility] [place] [facility] [address] [id number] [place] [address]- 3946 Jan, [facility] [place] [facility] [address] [id number] [place] [address]- 6248 September, [facility] [place] [facility] [address] [id number] [place] [address]- 0097 Jun, [facility] [place] [facility] [address] [id number] [place] [address]- 9377 Apr, [facility] [place] [facility] [address] [id number] [place] [address]- 5566 Apr, [facility] [place] [facility] [address] [id number] [place] [address]- 5435 Apr, [facility] [place] [facility] [address] [id number] [place] [address]- 3834 Apr, [facility] [place] [facility] [address] [id number] [place] [address]- 0632 Apr, [facility] [place] [facility] [address] [id number] [place] [address]- 8485 Mar, [facility] [place] [facility] [address] [id number] [place] [address]- 7255 Mar, [facility] [place] [facility] [address] [id number] [place] [address]- 0097 Mar, [facility] [place] [facility] [address] [facility] [id number], [place] [address] 2546 05 Mar, 2010 [facility] [address] [facility] [id number], [place] [address]- 4636 27 Feb, 2010 [facility] [address] [id number], [place] [address]- 9326 15 Jan, 2010 [facility] [address] [id number], [place] [address]- 4232 Mar, [facility] [address] [id number], [place] [address]- 9287 15 Jan, 2009 [facility] [address] [id number], [place] [address]- 1541 Oct, [facility] [address] [id number], [place] [address]- 5165 Apr, IMMUNIZATIONS No Known Immunizations SOCIAL HISTORY Never Assessed REASON FOR VISIT New Rx from lab PLAN OF CARE VITAL SIGNS MEDICATIONS Medication Instructions Dosage Frequency Start Date End Date Duration Status Macrobid 100 mg Orally every 12 hrs 1 capsule with food 12h 30 Nov, 2017 6 Dec, 2017 7 day(s) Active RESULTS No Results PROCEDURES No Known [...]
--- OUTSIDE RECORDS SUMMARY | 2018-03-22 21:41 | XMS REPORT ---
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 Name Role Phone KENYA VILLARREALTA Unavailable PROBLEMS Type Condition ICD9-CM Code ENH39-LN Code Onset Dates Condition Status SNOMED Code Problem Bilateral low back pain without sciatica M54.5 Active 591377911 Problem Anxiety F41.9 Active 99849259 Problem Pre-diabetes R73.03 Active 838834734 Problem Essential hypertension I10 Active 59031262 Problem Irritable bowel syndrome without diarrhea K58.9 Active 26122619 Problem Body mass index (BMI) of 40.0-44.9 in adult Z68.41 Active 540694772 Problem Morbid (severe) obesity due to excess calories E66.01 Active 857979676 Problem Pain in right foot M79.671 Active 07527568210777564 Problem Pain in left foot M79.672 Active 539073241489140 Problem Rhinosinusitis J32.9 Active 47263258 Problem Alternating constipation and diarrhea R19.8 Active 288857651 ALLERGIES Substance Reaction Event Type Date Status Penicillin V Potassium anaphylaxis Drug Allergy Nov, Active surgical tape "tears skin off" Non Drug Allergy Nov, Active ENCOUNTERS Encounter Location Date Diagnosis [facility] [id number] [address] Jan, [facility] [address] [address] Jan, [facility] [id number] [place] [address] 59800- 6458 05 Jan, 2018 [facility] [address] [id number] [address] Jan, Dysuria R30.0 ; Acute cystitis with hematuria N30.01 ; Yeast infection B37.9 and BMI 40.0-44.9, adult Z68.41 [place] [address] [address] Dec, [place] [id number] [place] [address] 53334- 2338 Dec, [place] [id number] [place] [address] 19891- 5142 Nov, History of UTI Z87.440 [place] [id number] [place] [address] 45017- 0518 Nov, UTI symptoms R39.9 ; Acute nasopharyngitis J00 and BMI 40.0- 44.9, adult Z68.41 [place] [id number] [place] [address] 37625- 6490 Nov, [place] [id number] [place] [address] 78300- 9565 Nov, Yeast infection involving the vagina and surrounding area B37.3 [place] [address] [address] 6381 Nov, Yeast infection involving the vagina and surrounding area B37.3 [place] [address] [address] Nov, Yeast infection involving the vagina and surrounding area B37.3 ; Body mass index (BMI) of 40.0-44.9 in adult Z68.41 and Morbid (severe) obesity due to excess calories E66.01 [place] [address] [address] 7294 Oct, Abscess of groin, left L02.214 and Pre-diabetes R73.03 [place] [id number] [place] [address] 99166- 5197 September, Pre-diabetes R73.03 [place] [address] [address] 2259 Aug, [place] [id number] [place] [address] 49668- 6187 Jul, Bilateral low back pain without sciatica M54.5 [facility] [id number] [place] [address] 36606- 4273 Jun, [facility] [id number] [place] [address] 39813- 0873 Jun, [facility] [address] 46670- 0436 Jun, [facility] [id number] [place] [address] 07417- 6075 May, [facility] [id number] [place] [address] 23422- 8359 May, Ingrown left greater toenail L60.0 [facility] [address] 51238- 2276 May, [facility] [id number] [place] [address] 53265 -3903 May, Influenza A J10.1 ; Fever R50.9 and Body aches R52 [facility] [id number] [place] [address] 51083- 1885 Apr, [facility] [id number] [place] [address] 26674- 8710 Apr, [facility] [id number] [place] [address] 17726- 2421 Apr, [facility] [id number] [place] [address] 23897- 0455 Apr, Abscess L02.91 and Obesity (BMI 30-39.9) E66.9 [facility] [id number] [place] [address] 13920- 4845 Apr, [facility] [address] 31859- 2757 Apr, [place] [id number] [place] [address] 59251- 3231 Mar, Acute non-recurrent maxillary sinusitis J01.00 [place] [address] 00381- 3239 Feb, Heartburn R12 [place] [address] 06249- 5311 Feb, Heartburn R12 ; Low back pain M54.5 ; Essential hypertension I10 ; Bilateral low back pain without sciatica M54.5 ; Anxiety F41.9 ; Pre-diabetes R73.03 ; Other obesity due to excess calories E66.09 ; Alternating constipation and diarrhea R19.8 ; Dyspepsia R10.13 ; Generalized abdominal pain R10.84 ; Rhinosinusitis J32.9 and Boil L02.92 [place] [address] 00965- 0037 Jan, Heartburn R12 [place] [address] 24558- 9902 Jan, [place] [address] 51877- 2726 Jan, [place] [id number] [place] [address] 71142- 5720 Jan, Acute seasonal allergic rhinitis due to pollen J30.1 and Irritable bowel syndrome without diarrhea K58.9 [place] [id number] [place] [address] 32921- 9156 Dec, Low back pain M54.5 and Acute cystitis with hematuria N30.01 [place] [address] 90874- 4145 Dec, Low back pain M54.5 and Acute cystitis with hematuria N30.01 [place] [address] 54625- 7939 Dec, Heartburn R12 ; Essential hypertension I10 ; Acute non- recurrent maxillary sinusitis J01.00 ; Bilateral low back pain without sciatica M54.5 ; Anxiety F41.9 ; Pre-diabetes R73.03 ; Pain in right foot M79.671 ; Pain in left foot M79.672 ; Other obesity due to excess calories E66.09 and Acute cystitis with hematuria N30.01 [place] [address] 39703- 0761 Dec, Bilateral low back pain without sciatica M54.5 ; Acute non- recurrent maxillary sinusitis J01.00 and Pre-diabetes R73.03 [place] [address] 52657- 6493 Oct, [facility] [place] [address] 20383 -3821 Aug, [facility] [place] [address] 17515 -5378 Aug, Acute vaginitis N76.0 ; Urinary frequency R35.0 ; Screen for STD (sexually transmitted disease) Z11.3 and Abscess L02.91 [place] [address] 35008- 5869 Aug, Plantar wart of right foot B07.0 [place] [address] 39610- 3749 Jul, Plantar wart of right foot B07.0 [place] [address] 62252- 8823 Jun, [place] [address] 93436- 9037 Jun, Heartburn R12 ; Essential hypertension I10 ; Anxiety F41.9 ; Folliculitis L73.9 and Plantar wart of right foot B07.0 [place] [address] 00991- 4821 Jun, [facility] [id number] [place] [address] 01925 -1225 May, Low back pain M54.5 and Other chronic pain G89.29 [place] [address] 57048- 0682 May, [place] [address] 49136- 3960 May, [place] [address] 93629- 1186 May, Heartburn R12 ; Bilateral low back pain without sciatica M54.5 ; Essential hypertension I10 ; Long-term use of high-risk medication Z79.899 ; Anxiety F41.9 ; Impacted cerumen of right ear H61.21 ; Folliculitis L73.9 ; High risk bisexual behavior Z72.53 and General medical exam Z00.00 [place] [address] 26235- 4119 May, [place] [address] 22422- 5937 May, [place] [address] 90603- 5938 Mar, Acute nasopharyngitis J00 ; Acute intractable tension-type headache G44.201 and Cough R05 [place] [address] 27701- 6555 Jan, [facility] [address] 47463 -0625 Jan, Abscess L02.91 [facility] [place] [address] 95672 -7308 Jan, Urinary urgency R39.15 and Urinary tract infection without hematuria, site unspecified N39.0 [place] [address] 04264- 1416 Jan, [place] [address] [address]- 9090 Jan, [facility] [id number] [place] [address] 70854- 1767 Dec, [facility] [address] [address]- 6873 Dec, Dermatofibroma D23.9 [facility] [id number] [place] [address] 76329- 4911 September, [facility] [id number] [place] [address] 06599- 3298 Aug, [facility] [id number] [place] [address] 69311- 6894 Aug, Pain in left knee M25.562 ; Heartburn R12 ; Bilateral low back pain without sciatica M54.5 ; Essential hypertension I10 ; Ingrown left big toenail L60.0 ; Chronic pain G89.29 ; Irritable bowel syndrome with constipation K58.9 and Skin infection L08.9 [facility] [address], [place] [address]- 0105 Aug, [facility] [id number] [place] [address] 15025- 5104 Jul, [facility] [address], [place] [address]- 6184 Jun, [facility] [address], [place] [address]- 3850 Jun, [facility] [address], [place] [address]- 6049 Jun, [facility] [address], [place] [address]- 1897 Jun, [facility] [address], [place] [address]- 5146 Jun, Upper respiratory infection J06.9 ; Bilateral low back pain without sciatica M54.5 and Headache R51 [facility] [id number] [place] [address] 18412- 0925 May, [facility] [id number] [place] [address] 13421- 8460 Apr, Bilateral low back pain without sciatica M54.5 ; Upper respiratory infection J06.9 and Yeast dermatitis B37.2 [place] [id number] [place] [address] 45122- 0756 Apr, [facility] [id number] [place] [address] 23884- 7685 Apr, [place] [id number] [place] [address] 58716- 8796 Feb, [place] [id number] [place] [address] 80226- 4844 Feb, [facility] [id number] [place] [address] 53742- 5301 Feb, [facility] [id number] [place] [address] 79306- 2906 Feb, Essential hypertension I10 ; Heartburn R12 ; Irritable bowel syndrome without diarrhea K58.9 ; Bilateral low back pain, with sciatica presence unspecified M54.5 and Upper respiratory infection J06.9 [place] [id number] [place] [address] 22104- 3354 Feb, [place] [id number] [place] [address] 48996- 9272 Feb, Generalized anxiety disorder F41.1 and Grief F43.20 [place] [id number] [place] [address] 63862- 3488 Jan, [facility] [id number] [place] [address] 15177- 1716 Jan, Back pain 724.5 ; Upper respiratory infection 465.9 ; HTN ( hypertension) 401.9 and Dyspepsia 536.8 [place] [id number] [place] [address] 98328- 5774 Dec, [facility] [id number] [place] [address] 01380- 3151 Nov, Back pain 724.5 ; Abdominal pain, bilateral lower quadrant 789.03 ; GERD (gastroesophageal reflux disease) 530.81 ; Upper respiratory infection 465.9 ; Dysuria 788.1 and HTN (hypertension) 401.9 [place] [id number] [place] [address] 82544- 5404 Nov, [place] [id number] [place] [address] 10453- 2624 Nov, [place] [id number] [place] [address] 56560- 8625 Nov, [place] [id number] [place] [address] 32387- 3526 Nov, Cough 786.2 [place] [id number] [place] [address] 29908- 5577 Nov, Cough 786.2 [place] [id number] [place] [address] 87732- 5909 Oct, Unspecified episodic mood disorder 296.90 and Anxiety disorder, unspecified 300.00 [place] [id number] [place] [address] 96271- 5126 Oct, Abdominal pain, left upper quadrant 789.02 ; Essential hypertension, benign 401.1 ; Irritable bowel syndrome 564.1 ; Abscess 682.9 ; Heartburn 787.1 ; Acute sinusitis, unspecified 461.9 ; Muscle spasm of back 724.8 ; Cough 786.2 and Skin tag 701.9 [place] [id number] [place] [address] 95360- 5901 September, [place] [id number] [place] [address] 22943- 9887 September, [facility] [place] [facility] [address] [id number] [place] [address]- 7597 September, [facility] [place] [facility] [address] [id number] [place] [address]- 0396 Aug, [facility] [place] [facility] [address] [id number] [place] [address]- 5543 Aug, [facility] [place] [facility] [address] [id number] [place] [address]- 8972 Jul, [facility] [place] [facility] [address] [id number] [place] [address]- 5134 Jul, [facility] [place] [facility] [address] [id number] [place] [address]- 7011 Jul, [facility] [place] [facility] [address] [id number] [place] [address]- 1978 Jul, [facility] [place] [facility] [address] [id number] [place] [address]- 4270 Jul, [facility] [place] [facility] [address] [id number] [place] [address]- 6149 Jul, [facility] [place] [facility] [address] [id number] [place] [address]- 5893 Jul, [facility] [place] [facility] [address] [id number] [place] [address]- 3353 Jul, [facility] [place] [facility] [address] [id number] [place] [address]- 8582 Jul, [facility] [place] [facility] [address] [id number] [place] [address]- 9510 Jul, [facility] [place] [facility] [address] [id number] [place] [address]- 2015 Jul, [facility] [place] [facility] [address] [id number] [place] 7987 Jul, [facility] [place] [facility] [address] [id number] [place] [address]- 1304 Jul, 2014 [facility] [place] [facility] [address] [id number] [place] [address]- 5249 Jul, 2014 [facility] [place] [facility] [address] [id number] [place] [address]- 6506 Jul, 2014 [facility] [place] [facility] [address] [id number] [place] [address]- 3148 Jul, 2014 [facility] [place] [facility] [address] [id number] [place] [address]- 1286 Jul, 2014 [facility] [place] [facility] [address] [id number] [place] [address]- 5313 Jun, 2014 [facility] [place] [facility] [address] [facility] [id number] [place] [address]- 1978 Jun, 2014 [facility] [place] [facility] [address] [facility] [id number] [place] [address]- 1994 Jun, 2014 [facility] [place] [facility] [address] [facility] [id number] [place] [address]- 8466 Jun, 2014 [facility] [place] [facility] [address] [facility] [id number] [place] [address]- 2223 Jun, 2014 [facility] [place] [facility] [address] [facility] [id number] [place] [address]- 6417 Jun, 2014 [facility] [place] [facility] [address] [facility] [id number] [place] [address]- 9231 Jun, 2014 [facility] [place] [facility] [address] [facility] [id number] [place] [address]- 4818 Jun, [facility] [place] [facility] [address] [facility] [id number] [place] [address]- 7490 Apr, [facility] [place] [facility] [address] [facility] [id number] [place] [address]- 7354 Apr, [facility] [place] [facility] [address] [facility] [id number] [place] [address]- 4962 Apr, [facility] [place] [facility] [address] [id number] [place] 0166 Apr, [facility] [place] [facility] [address] [id number] [place] [address]- 1354 Apr, [facility] [place] [facility] [address] [id number] [place] [address]- 6207 18 Apr, 2014 [facility] [place] [facility] [address] [id number] [place] [address]- 2818 15 Apr, 2014 [facility] [place] [facility] [address] [id number] [place] [address]- 1541 15 Apr, 2014 [facility] [place] [facility] [address] [id number] [place] [address]- 8008 Apr, [facility] [place] [facility] [address] [id number] [place] [address]- 7421 Apr, [facility] [place] [facility] [address] [id number] [place] [address]- 1644 Apr, [facility] [place] [facility] [address] [id number] [place] [address]- 5483 Apr, [facility] [place] [facility] [address] [id number] [place] [address]- 8197 Apr, [facility] [place] [facility] [address] [id number] [address]- 8113 Apr, [facility] [place] [facility] [address] [id number], [place] [address]- 6892 Apr, [facility] [place] [facility] [address] [id number] [place] [address]- 9764 Feb, [facility] [place] [facility] [address] [id number], [place] [address]- 7487 Feb, [facility] [place] [facility] [address] [id number] [place] [address]- 1323 Feb, [facility] [place] [facility] [address] [id number] [place] [address]- 3396 Feb, [facility] [place] [facility] [address] [id number] [place] [address]- 2809 Feb, [facility] [place] [facility] [address] [id number] [place] [address]- 4649 Feb, [facility] [place] [facility] [address] [id number] [place] [address]- 9301 Jan, [facility] [place] [facility] [address] [id number] [place] [address]- 2145 Jan, 2013 [facility] [place] [facility] [address] [id number] [place] [address]- 9113 Jan, [facility] [place] [facility] [address] [id number] [place] [address]- 0947 Jan, [facility] [place] [facility] [address] [id number] [place] [address]- 5982 Jan, [facility] [place] [facility] [address] [id number] [place] [address]- 6952 Jan, [facility] [place] [facility] [address] [id number] [place] [address]- 4701 Dec, [facility] [place] [facility] [address] [id number] [place] [address]- 8174 Dec, [facility] [place] [facility] [address] [id number] [place] [address]- 1791 Dec, [facility] [place] [facility] [address] [id number] [place] [address]- 5241 Dec, [facility] [place] [facility] [address] [id number] [place] [address]- 7593 Nov, [facility] [place] [facility] [address] [id number] [place] [address]- 2915 Nov, [facility] [place] [facility] [address] [id number] [place] [address]- 6827 Nov, [facility] [place] [facility] [address] [id number] [place] [address]- 8416 Nov, [facility] [place] [facility] [address] [id number] [place] [address]- 5464 Nov, [facility] [place] [facility] [address] [id number] [place] [address]- 1973 Nov, [facility] [place] [facility] [address] [id number] [place] [address]- 3278 Nov, [facility] [place] [facility] [address] [id number] [place] [address]- 1406 Nov, [facility] [place] [facility] [address] [id number] [place] [address]- 3700 Oct, [facility] [place] [facility] [address] [id number] [place] [address]- 5809 Oct, [facility] [place] [facility] [address] [id number] [place] [address]- 8406 Oct, [facility] [place] [facility] [address] [id number] [place] [address]- 4557 Oct, [facility] [place] [facility] [address] [id number] [place] [address]- 6891 Oct, [facility] [place] [facility] [address] [id number] [place] [address]- 2406 Oct, [facility] [place] [facility] [address] [id number] [place] [address]- 4318 Oct, [facility] [place] [facility] [address] [id number] [place] [address]- 7884 Oct, [facility] [place] [facility] [address] [id number] [place] [address] Oct, [facility] [place] [facility] [address] [id number] [place] [address] Oct, [facility] [place] [facility] [address] [id number] [place] [address] Oct, [facility] [place] [facility] [address] [id number] [place] [address] Oct, [facility] [place] [facility] [address] [id number] [place] [address] Oct, [facility] [place] [facility] [address] [id number] [place] [address] Oct, [facility] [place] [facility] [address] [id number] [place] [address] 17 Oct, 2013 [facility] [place] [facility] [address] [id number] [place] [address] 17 Oct, 2013 [facility] [place] [facility] [address] [id number] [place] [address] Oct, [facility] [place] [facility] [address] [id number] [place] [address] Oct, [facility] [place] [facility] [address] [id number] [place] [address] Oct, [facility] [place] [facility] [address] [id number] [place] [address] Oct, [facility] [place] [facility] [address] [id number] [place] [address] Oct, [facility] [place] [facility] [address] [id number] [address] Oct, [facility] [place] [facility] [address] [id number], [place] [address] Oct, [facility] [place] [facility] [address] [id number] [place] [address] Oct, [facility] [place] [facility] [address] [id number] [place] [address]- [address] Oct, [facility] [place] [facility] [address] [id number] [place] [address] Oct, [facility] [place] [facility] [address] [id number] [place] [address] Oct, [facility] [address] [id number] [place] [address] Oct, [facility] [place] [facility] [address] [id number] [place] [address] Oct, [facility] [address] [id number] [place] [address] Oct, [facility] [place] [facility] [address] [id number] [place] [address] September, [facility] [address] [id number] [place] [address] September, [facility] [address] [id number] [place] [address] September, [facility] [address] [id number] [place] [address] September, [facility] [address] [id number] [place] [address] September, [facility] [address] [id number] [place] [address] September, [facility] [address] [id number] [place] [address] September, [facility] [place] [facility] [address] [id number] [place] [address] September, [facility] [place] [facility] [address] [id number] [place] [address] September, [facility] [place] [facility] [address] [id number] [place] [address] September, [facility] [place] [facility] [address] [id number] [place] [address] September, [facility] [place] [facility] [address] [id number] [place] [address] September, [facility] [place] [facility] [address] [id number] [place] [address] September, [facility] [place] [facility] [address] [id number] [place] [address] September, [facility] [facility] [address] [id number] [place] [address] September, [facility] [place] [facility] [address] [id number] [place] [address] 8[address] September, [facility] [place] [facility] [address] [id number] [place] [address] 6[address] September, [facility] [place] [facility] [address] [id number] [place] [address] September, [facility] [place] [facility] [address] [id number] [place] [address] 239[address] Aug, [facility] [place] [facility] [address] [id number] [place] [address] 7021 Aug, [facility] [place] [facility] [address] [id number] [place] [address]42 Aug, [facility] [place] [facility] [address] [id number] [place] [address]- 7790 Aug, [facility] [place] [facility] [address] [id number] [place] [address] 9643 Aug, [facility] [place] [facility] [address] [id number] [place] [address] 1449 Aug, [facility] [place] [facility] [address] [id number] [place] [address] 6797 Jul, [facility] [place] [facility] [address] [id number] [place] [address] 3130 Jul, [facility] [place] [facility] [address] [id number] [place] [address] Jul, [facility] [place] [facility] [address] [id number] [place] [address] 4671 Jul, [facility] [place] [facility] [address] [id number] [place] [address] 6105 Jun, [facility] [place] [facility] [address] [id number] [place] [address]- 5598 Jun, [facility] [place] [address] [id number] [place] [address]- 4216 Jun, [facility] [place] [facility] [address] [id number] [place] [address]- 3027 Jun, [facility] [place] [facility] [address] [id number] [place] [address] 8001 Mar, [facility] [place] [address] [id number] [place] [address] 9415 Mar, [facility] [place] [address] [id number] [place] [address]- 4209 Mar, [facility] [place] [address] [id number] [place] [address]- 9136 Mar, [facility] [address] [id number] [place] [address]- 2985 Feb, [facility] [address] [id number] [place] [address]- 5467 Feb, [facility] [place] [address] [id number] [place] [address]- 3028 Feb, [facility] [address] [id number] [place] [address]- 6031 Jan, [facility] [place] [address] [id number] [place] [address]- 7661 20 Jan, 2013 [facility] [address] [id number] [place] [address]- 8032 12 Jan, 2013 [facility] [address] [id number] [place] [address]- 4365 Jan, [facility] [address] [id number] [place] [address]- 3422 Dec, [facility] [address] [id number] [place] [address]- 5950 Dec, [facility] [address] [id number] [place] [address]- 6308 Dec, [facility] [address] [id number] [place] [address]- 0278 Dec, [facility] [address] [id number] [place] [address]- 9852 Nov, [facility] [address] [id number] [place] [address]- 0319 Nov, [facility] [address] [id number] [place] [address]- 8974 Nov, [facility] [address] [id number] [place] [address]- 5054 Nov, [facility] [address] [id number] [place] [address]- 7075 Nov, [facility] [address] [id number] [place] [address]- 3999 Nov, [facility] [address] [id number] [place] [address] 9323 Oct, [facility] [address] [id number] [place] [address]- 8570 Oct, [facility] [address] [id number] [place] [address]- 8093 Oct, [facility] [address] [id number] [place] [address]- 3947 Oct, [facility] [address] [id number] [place] [address]- 2060 Oct, [facility] [address] [id number] [place] [address]- 4667 16 Oct, 2012 [facility] [address] [id number] [place] [address]- 9627 14 Oct, 2012 [facility] [address] [id number] [place] [address]- 8501 13 Oct, 2012 [facility] [address] [id number] [place] [address]- 4710 Oct, [facility] [address] [id number] [place] [address]- 0445 Oct, [facility] [address] [id number] [place] [address]- 7667 September, [facility] [address] [id number] [place] [address]- 2086 September, [facility] [address] [id number] [place] [address]- 9965 September, [facility] [address] [id number] [place] [address]- 6789 Aug, [facility] [address] [id number] [place] [address]- 5147 Aug, [facility] [address] [id number] [place] [address]- 5339 Aug, [facility] [address] [id number] [place] [address]- 4664 Aug, [facility] [address] [id number] [place] [address]- 8906 Jul, [facility] [address] [id number] [place] [address]- 5562 Jul, [facility] [address] [id number] [place] [address]- 2194 Jul, [facility] [address] [id number] [place] [address]- 1625 Jul, [facility] [address] [id number] [place] [address]- 2076 04 Jul, 2012 [facility] [address] [id number] [place] [address]- 2486 Jul, [facility] [address] [id number] [place] [address]- 1056 May, [facility] [address] [id number] [place] [address]- 5655 May, [facility] [address] [id number] [place] [address]- 7324 May, [facility] [address] [id number] [place] [address]- 2692 May, [facility] [address] [id number] [place] [address]- 4145 May, [facility] [address] [id number] [place] [address]- 8136 May, [facility] [address] [id number] [place] [address]- 7550 May, [facility] [address] [id number] [place] [address]- 2852 May, [facility] [address] [id number] [place] [address]- 7684 May, [facility] [address] [id number] [place] [address]- 8801 17 May, 2012 [facility] [address] [id number] [place] [address]- 7213 May, [facility] [address] [id number] [place] [address]- 8617 Apr, [facility] [address] [id number] [place] [address]- 1206 Apr, [facility] [address] [id number] [place] [address]- 6713 Apr, [facility] [address] [id number] [place] [address]- 1281 Apr, [facility] [address] [id number] [place] [address]- 5329 Apr, [facility] [address] [id number] [place] [address]- 3370 Apr, [facility] [address] [id number] [place] [address]- 8831 Mar, [facility] [address] [id number] [place] [address]- 7473 Mar, [facility] [address] [id number] [place] [address]- 8056 Mar, [facility] [address] [id number] [place] [address]- 6966 Mar, [facility] [address] [id number] [place] [address]- 1605 Mar, [facility] [address] [id number] [place] [address]- 4205 Mar, [facility] [address] [id number] [place] [address]- 0464 Mar, [facility] [address] [id number], [place] [address]- 1872 Mar, [facility] [address] [id number], [place] [address]- 7321 Feb, [facility] [address] [id number] [place] [address]- 7272 Feb, [facility] [address] [id number] [place] [address]- 4112 16 Feb, 2012 [facility] [address] [id number] [place] 15 Feb, 2012 [facility] [address] [id number] [place] [address]- 1456 15 Feb, 2012 [facility] [address] [id number] [place] [address]- 0402 13 Feb, 2012 [facility] [address] [id number] [place] [address]- 7322 Feb, [facility] [address] [id number] [place] [address]- 5481 Feb, [facility] [address] [id number] [place] [address]- 1513 12 Feb, 2012 [facility] [address] [id number] [place] [address]- 5730 Feb, [facility] [address] [id number] [place] [address]- 9942 Feb, [facility] [address] [id number] [place] [address]- 7614 Feb, [facility] [address] [id number], [place] [address]- 5030 Feb, [facility] [address] [id number] [place] [address]- 4605 Feb, [facility] [address] [id number] [place] [address]- 9751 Feb, [facility] [address] [id number] [place] [address]- 1428 Feb, [facility] [address] [id number], [place] [address]- 9858 09 Feb, 2012 [facility] [address] [id number], [place] [address]- 4351 04 Feb, 2012 [facility] [address] [id number], [place] [address]- 2432 19 Jan, 2012 [facility] [address] [id number], [place] [address]- 5074 13 Jan, 2012 [facility] [address] [id number] [place] [address]- 2916 11 Jan, 2012 [facility] [address] [id number] [place] [address]- 4916 10 Jan, 2012 [facility] [address] [id number] [place] [address] 2546 05 Jan, 2012 [facility] [address] [id number] [place] [address]- 4596 Dec, [facility] [address] [id number] [place] [address] 254 Dec, [facility] [address] [id number] [place] [address]- 0736 Dec, [facility] [address] [id number] [place] [address]- 1751 Dec, [facility] [address] [id number] [place] [address]- 8651 Dec, [facility] [address] [id number] [place] [address]- 2307 Dec, [facility] [address] [id number] [place] [address]- 0884 Nov, [facility] [place] [address] [id number] [place] [address]- 1700 Nov, [facility] [address] [id number] [place] [address]- 5449 Nov, [facility] [address] [id number] [place] [address]- 4304 Nov, [facility] [address] [id number] [place] [address] 2546 Nov, [facility] [address] [id number] [place] [address] 2548 Oct, [facility] [address] [id number] [place] [address]- 1674 Oct, [facility] [address] [id number] [place] [address]- 7393 Oct, [facility] [place] [address] [id number] [place] [address]- 9336 September, [facility] [address] [id number] [place] [address] September, [facility] [address] [id number] [place] [address]- 3685 September, [facility] [address] [id number] [place] [address]- 2434 September, [facility] [address] [id number] [place] [address]- 6238 September, [facility] [place] [address] [id number] [place] [address]- 5931 September, [facility] [place] [facility] [address] [id number] [place] [address]- 6048 Aug, [facility] [place] [address] [id number] [place] [address]- 8489 Aug, [facility] [place] [facility] [address] [id number] [place] [address]- 1499 Aug, [facility] [place] [address] [id number] [place] [address]- 3730 Jun, [facility] [place] [address] [id number] [place] [address]- 3990 Jun, [facility] [address] [id number] [place] [address]- 2080 Jun, [facility] [place] [facility] [address] [id number] [place] [address]- 6136 Jun, [facility] [place] [facility] [address] [id number] [place] [address]- 7322 May, [facility] [place] [facility] [address] [id number] [place] [address]- 8728 May, [facility] [address] [id number] [place] [address]- 7330 May, [facility] [address] [id number] [place] [address]- 5195 May, [facility] [address] [id number] [place] [address]- 6351 May, [facility] [address] [id number] [place] [address]- 6639 Apr, [facility] [address] [id number] [place] [address]- 2181 Apr, [facility] [address] [id number] [place] [address]- 6969 Apr, [facility] [address] [id number] [place] [address]- 9074 Apr, [facility] [address] [id number] [place] [address]- 1729 Apr, [facility] [address] [id number] [place] [address]- 8661 Apr, [facility] [address] [id number] [place] [address]- 4754 16 Apr, 2011 [facility] [address] [id number] [place] [address]- 3123 Mar, [facility] [address] [id number] [place] [address]- 2608 Mar, [facility] [place] [facility] [address] [id number] [place] [address]- 0716 15 Mar, 2011 [facility] [facility] [address] [id number] [place] [address]- 7302 Feb, [facility] [address] [id number] [place] [address]- 3328 Feb, [facility] [place] [facility] [address] [id number] [place] [address]- 2096 Feb, [facility] [place] [facility] [address] [id number] [place] [address]- 7595 Feb, [facility] [place] [facility] [address] [id number] [place] [address] Feb, [facility] [place] [facility] [address] [id number] [place] [address]- 2822 Feb, [facility] [place] [facility] [address] [id number] [place] [address]- 0271 Jan, [facility] [place] [facility] [address] [id number] [place] [address]- 9799 Jan, [facility] [place] [facility] [address] [id number] [place] [address]- 7517 September, [facility] [place] [facility] [address] [id number] [place] [address]- 5989 Jun, [facility] [place] [facility] [address] [id number] [place] [address]- 5096 Apr, [facility] [place] [facility] [address] [id number] [place] [address]- 2997 Apr, [facility] [place] [facility] [address] [id number] [place] [address]- 0401 Apr, [facility] [place] [facility] [address] [id number] [place] [address]- 2190 Apr, [facility] [place] [facility] [address] [id number] [place] [address]- 8711 Apr, [facility] [place] [facility] [address] [id number] [place] [address]- 4208 Mar, [facility] [place] [facility] [address] [id number] [place] [address]- 2272 Mar, [facility] [place] [facility] [address] [id number], [place] [address]- 4456 Mar, [facility] [id number] [address]- 6619 Mar, [facility] [address] [id number], [place] [address]- 6680 Feb, [facility] [id number], [place] [address]- 6248 Jan, [facility] [id number] [place] [address]- 7557 Mar, [facility] [id number] [place] [address]- 5942 Jan, [facility] [id number] [place] [address]- 1464 Oct, [facility] [id number] [address]- 1792 Apr, IMMUNIZATIONS No Known Immunizations SOCIAL HISTORY Never Assessed REASON FOR VISIT Yeast infection, possible, patient states she was taking antibiotics and had some yeast infection took some pills to get rid off and now everytime she urinate is pressure with burning and having painful intercourse -- marck drummond PLAN OF CARE Activity Details Follow Up 1 Week if not better Reason: VITAL SIGNS Height 66 in 2017-12-07 Weight 263.0 lbs 2017-12-07 Temperature 97.8 degrees Fahrenheit 2017-12-07 Heart Rate 78 bpm 2017-12-07 Respiratory Rate 18 2017-12-07 BMI 42.44 kg/m2 2017-12-07 Blood pressure systolic 130 mmHg 2017-12-07 Blood pressure diastolic 78 mmHg 2017-12-07 MEDICATIONS Medication Instructions Dosage Frequency Start Date End Date Duration Status Actos 30 MG Orally Once a day 1/2 tablet 24h 60 days Active Lisinopril 20 MG TAKE ONE TABLET BY MOUTH ONCE DAILY 30 Active Ibuprofen 800 MG Orally Three times a day 1 tablet 8h 30 Active Fluticasone Propionate 50 MCG/ACT Nasally Once a day 2 sprays in each nare x 7 days then 1 spray each nare 24h Nov, 30 day(s) Active Flexeril 10 mg Orally 2 times a day s needed 1 tablet 28 Active Omeprazole 20 mg Orally Once a day 1 capsule 24h Active RESULTS No Results PROCEDURES Procedure Date Ordered Result Body Site URINALYSIS, AUTO, W/O SCOPE December 07, 2017 No Charge December 07, 2017 URINE CULTURE/COLONY COUNT December 07, 2017 INSTRUCTIONS MEDICATIONS ADMINISTERED No Known Medications MEDICAL [...]
--- OUTSIDE RECORDS SUMMARY | 2018-03-22 21:42 | XMS REPORT ---
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 [employer] Name Role Phone MCLEANJEVON Melendrez Unavailable PROBLEMS Type Condition ICD9-CM Code NTP95-FH Code Onset Dates Condition Status SNOMED Code Problem Bilateral low back pain without sciatica M54.5 Active 887397785 Problem Anxiety F41.9 Active 56332691 Problem Pre-diabetes R73.03 Active 736075584 Problem Essential hypertension I10 Active 87164122 Problem Irritable bowel syndrome without diarrhea K58.9 Active 69663039 Problem Body mass index (BMI) of 40.0-44.9 in adult Z68.41 Active 312473837 Problem Morbid (severe) obesity due to excess calories E66.01 Active 675171254 Problem Pain in right foot M79.671 Active [id number] Problem Pain in left foot M79.672 Active 527180334379297 Problem Rhinosinusitis J32.9 Active 53899290 Problem Alternating constipation and diarrhea R19.8 Active 269252404 ALLERGIES No Information ENCOUNTERS Encounter Location Date Diagnosis [facility] [id number] [address] Jan, [facility] [address], [place] [address] Jan, [facility] [address] [id number], [place] [address] Jan, Dysuria R30.0 ; Acute cystitis with hematuria N30.01 ; Yeast infection B37.9 and BMI 40.0-44.9, adult Z68.41 [facility] [id number] [address] Dec, [facility] [id number] [place] [address] 94796- 8225 Dec, [place] [id number] [place] [address] 48399- 6758 Nov, History of UTI Z87.440 [place] [id number] [place] [address] 53105- 3964 Nov, UTI symptoms R39.9 ; Acute nasopharyngitis J00 and BMI 40.0- 44.9, adult Z68.41 [place] [id number] [place] [address] 10324- 6642 Nov, [place] [id number] [place] [address] 28853- 9013 Nov, Yeast infection involving the vagina and surrounding area B37.3 [place] [id number] [place] [address] 23080- 9914 Nov, Yeast infection involving the vagina and surrounding area B37.3 [place] [id number] [place] [address] 33894- 9980 Nov, Yeast infection involving the vagina and surrounding area B37.3 ; Body mass index (BMI) of 40.0-44.9 in adult Z68.41 and Morbid (severe) obesity due to excess calories E66.01 [place] [id number] [place] [address] 83825- 7277 Oct, Abscess of groin, left L02.214 and Pre-diabetes R73.03 [place] [address] [address] 7568 September, Pre-diabetes R73.03 [place] [id number] [place] [address] 69919- 8326 Aug, [place] [id number] [place] [address] 22901- 3166 Jul, Bilateral low back pain without sciatica M54.5 [place] [id number] [place] [address] 16895- 8380 Jun, [facility] [id number] [place] [address] 33491- 7164 Jun, [facility] [id number] [place] [address] 42118- 7234 Jun, [facility] [id number] [place] [address] 34550- 6848 May, [facility] [id number] [place] [address] 05670- 1878 May, Ingrown left greater toenail L60.0 [facility] [address] 29091- 0293 May, [facility] [id number] [place] [address] 88953 -9940 May, Influenza A J10.1 ; Fever R50.[address] [facility] [id number] [place] [address] 23396- 5735 Apr, [facility] [id number] [place] [address] 64150- 7998 Apr, [facility] [id number] [place] [address] 90370- 4119 Apr, [facility] [id number] [place] [address] 72232- 7654 Apr, Abscess L02.91 and Obesity (BMI 30-39.9) E66.9 [facility] [id number] [place] [address] 61761- 6822 Apr, [facility] [id number] [place] [address] 47496- 6106 Apr, [facility] [id number] [place] [address] 18244- 3611 Mar, Acute non-recurrent maxillary sinusitis J01.00 [facility] [id number] [place] [address] 23671- 6899 Feb, Heartburn R12 [place] [address] 73553- 2505 Feb, Heartburn R12 ; Low back pain M54.5 ; Essential hypertension I10 ; Bilateral low back pain without sciatica M54.5 ; Anxiety F41.9 ; Pre-diabetes R73.03 ; Other obesity due to excess calories E66.09 ; Alternating constipation and diarrhea R19.8 ; Dyspepsia R10.13 ; Generalized abdominal pain R10.84 ; Rhinosinusitis J32.9 and Boil L02.92 [place] [address] 01431- 7820 Jan, Heartburn R12 [place] [address] 33724- 5041 Jan, [place] [address] 83973- 1510 Jan, [place] [address] 72379- 9306 Jan, Acute seasonal allergic rhinitis due to pollen J30.1 and Irritable bowel syndrome without diarrhea K58.9 [place] [id number] [place] [address] 02411- 0390 Dec, Low back pain M54.5 and Acute cystitis with hematuria N30.01 [place] [id number] [place] [address] 58928- 3283 Dec, Low back pain M54.5 and Acute cystitis with hematuria N30.01 [place] [address] 07303- 9404 Dec, Heartburn R12 ; Essential hypertension I10 ; Acute non- recurrent maxillary sinusitis J01.00 ; Bilateral low back pain without sciatica M54.5 ; Anxiety F41.9 ; Pre-diabetes R73.03 ; Pain in right foot M79.671 ; Pain in left foot M79.672 ; Other obesity due to excess calories E66.09 and Acute cystitis with hematuria N30.01 [place] [address] 72811- 3415 Dec, Bilateral low back pain without sciatica M54.5 ; Acute non- recurrent maxillary sinusitis J01.00 and Pre-diabetes R73.03 [place] [address] 64057- 3930 Oct, [facility] [place] [address] 71014 -6515 Aug, [facility] IN [address] [address] Aug, Acute vaginitis N76.0 ; Urinary frequency R35.0 ; Screen for STD (sexually transmitted disease) Z11.3 and Abscess L02.91 [place] [address] 83431- 9804 Aug, Plantar wart of right foot B07.0 [place] [address] 65647- 5416 Jul, Plantar wart of right foot B07.0 [place] [address] 20964- 5157 Jun, [place] [address] 35599- 4811 Jun, Heartburn R12 ; Essential hypertension I10 ; Anxiety F41.9 ; Folliculitis L73.9 and Plantar wart of right foot B07.0 [place] [address] 17201- 7394 07 Jun, 2016 [facility] WALK IN [place] [address] 39133 -4703 May, Low back pain M54.5 and Other chronic pain G89.29 [place] [address] 48304- 8256 May, [facility] [address] 39354- 4649 May, [place] [address] 33546- 2772 May, Heartburn R12 ; Bilateral low back pain without sciatica M54.5 ; Essential hypertension I10 ; Long-term use of high-risk medication Z79.899 ; Anxiety F41.9 ; Impacted cerumen of right ear H61.21 ; Folliculitis L73.9 ; High risk bisexual behavior Z72.53 and General medical exam Z00.00 [place] [address] 20954- 5823 May, [place] [address] 44954- 3460 May, [place] [address] 70183- 8780 Mar, Acute nasopharyngitis J00 ; Acute intractable tension-type headache G44.201 and Cough R05 [place] [address] 10361- 1211 Jan, [facility] [address] 88796 -2877 Jan, Abscess L02.91 [facility] [address] 21696 -8947 Jan, Urinary urgency R39.15 and Urinary tract infection without hematuria, site unspecified N39.0 [place] [address] 80309- 5224 Jan, [place] [address] 14073- 4041 Jan, [place] [address] 38212- 6585 Dec, [place] [address], [place] [address]- 7383 Dec, Dermatofibroma D23.9 [facility] [id number] [place] [address] 87965- 6666 September, [facility] [id number] [place] [address] 45893- 5938 Aug, [facility] [id number] [place] [address] 84893- 9076 Aug, Pain in left knee M25.562 ; Heartburn R12 ; Bilateral low back pain without sciatica M54.5 ; Essential hypertension I10 ; Ingrown left big toenail L60.0 ; Chronic pain G89.29 ; Irritable bowel syndrome with constipation K58.9 and Skin infection [address]9 [facility] [id number], [place] [address]- 29[address] Aug, [facility] [id number] [place] [address] 27743- 3124 Jul, [facility] [id number] [place] [address] 40514- 2410 Jun, [facility] [id number], [place] [address]- 2301 Jun, [facility] [address], [place] [address]- 7032 Jun, [facility] [id number], [place] [address]- 7877 Jun, [facility] [id number] [place] [address] 18315- 2240 Jun, Upper respiratory infection J06.9 ; Bilateral low back pain without sciatica M54.[address] [facility] [address], [place] [address]- 2532 May, [facility] [id number] [place] [address] 50176- 9602 Apr, Bilateral low back pain without sciatica M54.5 ; Upper respiratory infection J06.9 [address] Ye[address] dermatitis B37.2 [facility] [id number] [place] [address] 59932- 7186 Apr, [facility] [id number] [place] [address] 13705- 0098 Apr, [facility] [id number] [place] [address] 51069- 5639 Feb, [facility] [id number] [place] [address] 88560- 0925 Feb, [facility] [id number] [place] [address] 55649- 9231 Feb, [facility] [id number] [place] [address] 49365- 1524 Feb, Essential hypertension I10 ; Heartburn R12 ; Irritable bowel syndrome without diarrhea K58.9 ; Bilateral low back pain, with sciatica presence unspecified M54.5 and Upper respiratory infection J06.9 [place] [id number] [place] [address] 43830- 0428 Feb, [facility] [id number] [place] [address] 54560- 8756 Feb, Generalized anxiety disorder F41.[address] [facility] [id number] [place] [address] 84143- 1616 Jan, [facility] [id number] [place] [address] 64902- 4055 Jan, Back pain 724.5 ; Upper respiratory infection 465.9 ; HTN ( hypertension) 401.[address] [facility] [id number] [place] [address] 14685- 8268 Dec, [facility] [id number] [place] [address] 29701- 0389 Nov, Back pain 724.5 ; Abdominal pain, bilateral lower quadrant 789.03 ; GERD (gastroesophageal reflux disease) 530.81 ; Upper respiratory infection 465.9 ; Dysuria 788.1 and HTN (hypertension) 401.9 [facility] [id number] [place] [address] 08529- 9064 Nov, [facility] [address] 21635- 2357 Nov, [facility] [id number] [place] [address] 56384- 3525 Nov, [place] [address] 87664- 7732 Nov, Cough 786.2 [place] [id number] [place] [address] 89341- 1963 Nov, Cough 786.2 [place] [id number] [place] [address] 12600- 9393 Oct, Unspecified episodic mood disorder 296.90 and Anxiety disorder, unspecified 300.00 [place] [id number] [place] [address] 34566- 2064 Oct, Abdominal pain, left upper quadrant 789.02 ; Essential hypertension, benign 401.1 ; Irritable bowel syndrome 564.1 ; Abscess 682.9 ; Heartburn 787.1 ; Acute sinusitis, unspecified 461.9 ; Muscle spasm of back 724.8 ; Cough 786.2 and Skin tag 701.9 [place] [id number] [place] [address] 20255- 8464 September, [place] [id number] [place] [address] 47947- 5654 September, [facility] [id number] [place] [address] 58827- 2216 September, [facility] [address] 75215- 2546 14 Aug, 2014 [facility] [place] [facility] [address] [id number] [place] [address]- 0951 13 Aug, 2014 [facility] [place] [facility] [address] [id number] [place] [address]- 3526 30 Jul, 2014 [facility] [place] [facility] [address] [id number] [place] [address]- 6403 30 Jul, 2014 [facility] [place] [facility] [address] [id number] [place] [address]- 9638 Jul, [facility] [place] [facility] [address] [id number] [place] [address]- 6674 Jul, [facility] [place] [facility] [address] [id number] [place] [address]- 1436 Jul, [facility] [place] [facility] [address] [id number] [place] [address]- 0424 Jul, [facility] [place] [facility] [address] [id number] [place] [address]- 9827 Jul, [facility] [place] [facility] [address] [id number] [place] [address]- 5844 Jul, [facility] [place] [facility] [address] [id number] [place] [address]- 1561 Jul, [facility] [place] [facility] [address] [id number] [place] [address]- 0957 Jul, [facility] [place] [facility] [address] [id number] [place] [address]- 9960 Jul, [facility] [place] [facility] [address] [id number] [place] [address]- 3998 Jul, [facility] [place] [facility] [address] [id number] [place] [address]- 3422 Jul, [facility] [place] [facility] [address] [id number] [place] [address]- 0270 Jul, [facility] [place] [facility] [address] [id number] [place] [address]- 7090 Jul, 2014 [facility] [place] [facility] [address] [id number] [place] [address]- 3309 Jul, 2014 [facility] [place] [facility] [address] [id number] [place] [address]- 4293 Jul, 2014 [facility] [place] [facility] [address] [id number] [place] [address]- 3199 Jun, 2014 [facility] [place] [facility] [address] [id number] [place] [address]- 3633 Jun, 2014 [facility] [place] [facility] [address] [id number] [place] [address]- 0157 Jun, 2014 [facility] [place] [facility] [address] [facility] [id number] [place] [address]- 4304 Jun, 2014 [facility] [place] [facility] [address] [facility] [id number] [place] [address]- 3869 Jun, 2014 [facility] [place] [facility] [address] [id number] [place] [address]- 8173 Jun, 2014 [facility] [place] [facility] [address] [facility] [id number] [place] [address]- 2830 Jun, 2014 [facility] [place] [facility] [address] [facility] [id number] [place] [address]- 8937 Jun, 2014 [facility] [place] [facility] [address] [id number] [place] [address]- 7516 Apr, [facility] [place] [facility] [address] [id number] [place] [address]- 9005 Apr, [facility] [place] [facility] [address] [id number] [place] [address]- 5485 Apr, [facility] [place] [facility] [address] [id number] [place] [address]- 7028 Apr, [facility] [place] [facility] [address] [facility] [id number] [place] [address]- 4545 Apr, [facility] [place] [facility] [address] [id number] [place] [address]- 4516 18 Apr, 2014 [facility] [place] [facility] [address] [id number] [place] 7327 Apr, [facility] [place] [facility] [address] [id number] [place] [address]- 9546 Apr, [facility] [place] [facility] [address] [id number] [place] [address]- 5259 Apr, [facility] [place] [facility] [address] [id number] [place] [address]- 6769 Apr, [facility] [place] [facility] [address] [id number] [place] [address]- 5775 Apr, [facility] [place] [facility] [address] [id number] [place] [address]- 4541 Apr, [facility] [place] [facility] [address] [id number] [place] [address]- 7241 Apr, [facility] [place] [facility] [address] [id number] [place] [address]- 6611 Apr, [facility] [place] [facility] [address] [id number] [place] [address]- 9405 Apr, [facility] [place] [facility] [address] [id number] [place] [address]- 2644 Feb, [facility] [place] [facility] [address] [id number] [place] [address]- 2391 Feb, [facility] [place] [facility] [address] [id number] [place] 5302 Feb, [facility] [place] [facility] [address] [id number] [place] [address]- 9516 Feb, [facility] [place] [facility] [address] [id number] [place] 3059 Feb, [facility] [place] [facility] [address] [id number] [place] [address]- 7527 Feb, [facility] [place] [facility] [address] [id number] [place] [address]- 0848 Jan, 2013 [facility] [place] [facility] [address] [id number] [place] [address]- 5426 Jan, 2013 [facility] [place] [facility] [address] [id number] [place] [address]- 3026 Jan, 2013 [facility] [place] [facility] [address] [id number] [place] [address]- 6015 Jan, 2013 [facility] [place] [facility] [address] [id number] [place] [address]- 5215 Jan, 2013 [facility] [place] [facility] [address] [id number] [place] [address]- 8985 Jan, 2013 [facility] [place] [facility] [address] [id number] [place] [address]- 8092 Dec, [facility] [place] [facility] [address] [id number] [place] [address]- 4250 Dec, [facility] [place] [facility] [address] [id number] [place] [address]- 4338 Dec, [facility] [place] [facility] [address] [id number] [place] [address]- 8485 Dec, [facility] [place] [facility] [address] [id number] [place] [address]- 5834 Nov, [facility] [place] [facility] [address] [id number] [place] [address]- 2953 Nov, [facility] [place] [facility] [address] [id number] [place] [address]- 4858 Nov, [facility] [place] [facility] [address] [id number] [place] [address]- 6900 Nov, [facility] [place] [facility] [address] [id number] [place] [address]- 5955 Nov, [facility] [place] [facility] [address] [id number] [place] [address]- 6147 Nov, [facility] [place] [facility] [address] [id number] [place] [address] Nov, [facility] [place] [facility] [address] [id number] [place] [address] Nov, [facility] [place] [facility] [address] [id number] [place] [address] Oct, [facility] [place] [facility] [address] [id number] [place] [address] Oct, [facility] [place] [facility] [address] [id number] [place] [address] Oct, [facility] [place] [facility] [address] [id number] [place] [address] Oct, [facility] [place] [facility] [address] [id number] [place] [address] Oct, [facility] [place] [facility] [address] [id number] [place] [address] Oct, [facility] [place] [facility] [address] [id number] [place] [address] Oct, [facility] [place] [facility] [address] [id number] [place] [address] Oct, [facility] [place] [facility] [address] [id number], [place] [address] Oct, [facility] [place] [facility] [address] [id number] [place] [address] Oct, [facility] [place] [facility] [address] [id number] [place] [address] Oct, [facility] [place] [facility] [address] [id number] [place] [address] Oct, [facility] [place] [facility] [address] [id number], [place] [address] 18 Oct, 2013 [facility] [place] [facility] [address] [id number] [place] [address] 18 Oct, 2013 [facility] [place] [facility] [address] [id number] [place] [address]- [address] 17 Oct, 2013 [facility] [place] [facility] [address] [id number] [place] [address]- [address] 17 Oct, 2013 [facility] [place] [facility] [address] [id number] [place] [address]- [address] 16 Oct, 2013 [facility] [place] [facility] [address] [id number] [place] [address]- [address] 16 Oct, 2013 [facility] [place] [facility] [address] [id number] [place] [address]267 Oct, [facility] [place] [facility] [address] [id number], [place] [address] Oct, [facility] [place] [facility] [address] [id number] [place] [address] Oct, [facility] [place] [facility] [address] [id number] [place] [address] Oct, [facility] [place] [facility] [address] [facility] [id number], [place] [address] Oct, [facility] [place] [facility] [address] [id number], [place] [address] Oct, [facility] [place] [facility] [address] [id number], [place] [address] Oct, [facility] [place] [facility] [address] [id number], [place] [address] Oct, [facility] [place] [facility] [address] [id number], [place] [address] Oct, [facility] [place] [facility] [address] [facility] [id number], [place] [address] Oct, [facility] [place] [facility] [address] [id number] [place] [address] Oct, [facility] [place] [facility] [address] [id number] [place] [address] Oct, [facility] [place] [facility] [address] [id number] [place] [address] September, [facility] [place] [facility] [address] [id number] [place] [address] September, [facility] [place] [facility] [address] [id number] [place] [address] September, [facility] [place] [facility] [address] [id number] [place] [address] September, [facility] [place] [facility] [address] [id number] [place] [address] September, [facility] [place] [facility] [address] [id number] [place] [address] September, [facility] [place] [facility] [address] [id number] [place] [address] September, [facility] [place] [facility] [address] [id number] [place] [address] September, [facility] [place] [facility] [address] [id number] [place] [address] September, [facility] [place] [facility] [address] [id number] [place] [address]99 September, [facility] [place] [facility] [address] [id number] [place] [address] September, [facility] [place] [facility] [address] [id number] [place] [address] 8138 September, [facility] [place] [facility] [address] [id number] [place] [address] September, [facility] [place] [facility] [address] [id number] [place] [address] September, [facility] [place] [facility] [address] [id number] [place] [address] 6949 September, [facility] [place] [facility] [address] [id number] [place] [address] 9830 September, [facility] [place] [facility] [address] [id number] [place] [address]- 9681 September, [facility] [place] [facility] [address] [id number] [place] [address] 7504 September, [facility] [place] [facility] [address] [id number] [place] [address]- 1828 Aug, [facility] [place] [facility] [address] [id number] [place] [address] 7778 Aug, [facility] [place] [facility] [address] [id number] [place] [address] 8433 Aug, [facility] [place] [facility] [address] [id number] [place] [address] 4115 Aug, [facility] [place] [facility] [address] [id number] [place] [address]- 5710 Aug, [facility] [place] [facility] [address] [id number] [place] [address]- 7015 Aug, [facility] [place] [facility] [address] [id number] [place] [address]- 6090 Jul, [facility] [place] [facility] [address] [id number], [place] [address] 9433 Jul, [facility] [place] [facility] [address] [id number] [place] [address]- 6304 Jul, [facility] [place] [facility] [address] [id number] [place] [address]- 2387 Jul, [facility] [place] [facility] [address] [id number] [place] [address]- 3249 Jun, [facility] [place] [facility] [address] [id number] [place] [address]- 4514 18 Jun, 2013 [facility] [address] [id number] [place] [address]- 4779 18 Jun, 2013 [facility] [place] [facility] [address] [id number] [place] [address]- 3120 18 Jun, 2013 [facility] [address] [id number] [place] [address]- 6061 14 Mar, 2013 [facility] [place] [facility] [address] [id number] [place] [address]- 1432 14 Mar, 2013 [facility] [address] [id number] [place] [address]- 2410 Mar, [facility] [place] [facility] [address] [id number] [place] [address]- 0444 Mar, [facility] [place] [facility] [address] [id number] [place] [address]- 3001 Feb, [facility] [place] [facility] [address] [id number] [place] [address]- 3239 Feb, [facility] [place] [facility] [address] [id number] [place] [address] 1904 Feb, [facility] [place] [facility] [address] [id number] [place] [address]- 7064 Jan, [facility] [place] [facility] [address] [id number] [place] [address]- 2542 20 Jan, 2013 [facility] [place] [facility] [address] [id number] [place] [address]- 1969 12 Jan, 2013 [facility] [place] [facility] [address] [id number] [place] [address]- 3420 05 Jan, 2013 [facility] [place] [facility] [address] [id number] [place] [address]- 1390 Dec, [facility] [place] [facility] [address] [id number] [place] [address]- 0392 Dec, [facility] [place] [facility] [address] [id number] [place] [address]- 7858 Dec, [facility] [place] [facility] [address] [id number] [place] [address]- 3605 Dec, [facility] [place] [facility] [address] [id number] [place] [address]- 5877 Nov, [facility] [place] [facility] [address] [id number] [place] [address]- 9326 Nov, [facility] [place] [facility] [address] [id number] [place] [address]- 9202 Nov, [facility] [place] [facility] [address] [id number] [place] [address]- 1046 Nov, [facility] [place] [facility] [address] [id number] [place] [address]- 3639 Nov, [facility] [place] [facility] [address] [id number] [place] [address]- 5105 Nov, [facility] [place] [facility] [address] [id number] [place] [address]- 0702 Oct, [facility] [place] [facility] [address] [id number] [place] [address]- 3092 Oct, [facility] [place] [facility] [address] [id number] [place] [address]- 7074 Oct, [facility] [place] [facility] [address] [id number], [place] [address] 0700 Oct, [facility] [place] [facility] [address] [id number] [place] [address]- 0735 Oct, [facility] [place] [facility] [address] [id number] [place] [address]- 6642 Oct, [facility] [place] [facility] [address] [id number] [place] [address]- 7219 Oct, [facility] [place] [facility] [address] [id number], [place] [address] 8599 Oct, [facility] [address] [id number] [place] [address]- 8804 Oct, [facility] [address] [id number] [place] [address]- 6915 Oct, [facility] [address] [id number] [place] [address]- 3761 September, [facility] [address] [id number] [place] [address]- 1547 September, [facility] [address] [id number] [place] [address]- 0729 September, [facility] [address] [id number] [place] [address]- 2043 Aug, [facility] [address] [id number] [place] [address]- 7504 Aug, [facility] [address] [id number] [place] [address]- 4208 Aug, [facility] [address] [id number] [place] [address]- 4600 Aug, [facility] [address] [facility] [id number] [place] [address]- 8747 Jul, [facility] [address] [id number] [place] [address]- 2488 Jul, [facility] [place] [facility] [address] [id number] [place] [address]- 1324 Jul, [facility] [place] [facility] [address] [id number] [place] [address]- 9581 Jul, [facility] [place] [facility] [address] [id number] [place] [address]- 5661 Jul, [facility] [address] [facility] [id number] [place] [address]- 3892 Jul, [facility] [place] [facility] [address] [id number] [place] [address]- 0159 31 May, 2012 [facility] [address] [id number] [place] [address]- 8325 29 May, 2012 [facility] [place] [facility] [address] [id number] [place] [address]- 6378 May, [facility] [address] [id number] [place] [address]- 3435 May, [facility] [place] [facility] [address] [id number] [place] [address]- 5578 May, [facility] [place] [facility] [address] [id number] [place] [address]- 7288 May, [facility] [place] [facility] [address] [id number] [place] [address]- 3903 May, [facility] [address] [id number] [place] [address]- 1101 18 May, 2012 [facility] [address] [id number] [place] [address]- 0176 17 May, 2012 [facility] [address] [id number] [place] [address]- 6700 17 May, 2012 [facility] [address] [id number] [place] [address]- 8898 16 May, 2012 [facility] [address] [id number] [place] [address]- 3920 Apr, [facility] [place] [facility] [address] [id number] [place] [address]- 5359 Apr, [facility] [place] [facility] [address] [id number] [place] [address]- 7380 Apr, [facility] [place] [facility] [address] [id number] [place] [address]- 5229 Apr, [facility] [place] [facility] [address] [id number] [place] [address]- 7010 Apr, [facility] [place] [facility] [address] [id number] [place] [address]- 8527 Apr, [facility] [place] [facility] [address] [id number] [place] [address]- 1959 Mar, [facility] [place] [facility] [address] [facility] [id number] [place] [address]- 8255 Mar, [facility] [place] [facility] [address] [id number], [place] [address]- 6683 Mar, [facility] [place] [facility] [address] [id number] [place] [address]- 1061 Mar, [facility] [place] [facility] [address] [id number] [place] [address]- 1573 Mar, [facility] [place] [facility] [address] [facility] [id number] [place] [address]- 0893 Mar, [facility] [place] [facility] [address] [id number], [place] [address]- 0010 Mar, [facility] [place] [facility] [address] [id number], [place] [address]- 3879 Mar, [facility] [place] [facility] [address] [facility] [id number], [place] [address]- 6634 Feb, [facility] [place] [facility] [address] [id number], [place] [address]- 7472 Feb, [facility] [place] [facility] [address] [id number], [place] [address]- 6295 16 Feb, 2012 [facility] [place] [facility] [address] [id number], [place] [address]- 8419 15 Feb, 2012 [facility] [place] [facility] [address] [facility] [id number][place] [address]- 3378 15 Feb, 2012 [facility] [place] [facility] [address] [facility] [id number], [place] [address]- 2761 13 Feb, 2012 [facility] [place] [facility] [address] [id number] [place] [address]- 2387 12 Feb, 2012 [facility] [place] [facility] [address] [id number] [place] [address]- 8666 Feb, [facility] [place] [facility] [address] [id number] [place] [address]- 1595 Feb, [facility] [place] [facility] [address] [id number] [place] [address]- 1308 Feb, [facility] [place] [facility] [address] [id number] [place] [address]- 0042 Feb, [facility] [place] [facility] [address] [id number] [place] [address]- 3491 Feb, [facility] [place] [facility] [address] [id number] [place] [address]- 7152 Feb, [facility] [place] [facility] [address] [id number] [place] [address]- 4046 Feb, [facility] [place] [facility] [address] [id number] [place] [address]- 1286 Feb, [facility] [place] [facility] [address] [id number] [place] [address]- 8681 Feb, [facility] [place] [facility] [address] [facility] [id number] [place] [address]- 4079 Feb, [facility] [place] [facility] [address] [id number] [place] [address]- 8109 04 Feb, 2012 [facility] [place] [facility] [address] [id number], [place] [address]- 5975 19 Jan, 2012 [facility] [place] [facility] [address] [id number] [place] [address]- 4717 13 Sep2011 [facility] [place] [facility] [address] [id number] [place] [address]- 8752 11 Jan, 2012 [facility] [place] [facility] [address] [id number] [place] [address]- 0100 10 Jan, 2012 [facility] [place] [facility] [address] [id number] [place] [address]- 6127 Jan, [facility] [place] [facility] [address] [id number] [place] [address]- 9579 Dec, [facility] [place] [facility] [address] [id number] [place] [address]- 6659 Dec, [facility] [place] [facility] [address] [id number] [place] [address]- 7282 Dec, [facility] [place] [facility] [address] [id number] [place] [address]- 5644 Dec, [facility] [place] [facility] [address] [id number] [place] [address]- 5941 Dec, [facility] [place] [facility] [address] [id number] [place] [address]- 6948 Dec, [facility] [place] [facility] [address] [id number] [place] [address]- 8477 Nov, [facility] [place] [facility] [address] [id number] [place] [address]- 6857 Nov, [facility] [place] [facility] [address] [id number] [place] [address]- 7356 Nov, [facility] [place] [facility] [address] [id number] [place] [address]- 5213 Nov, [facility] [place] [facility] [address] [id number] [place] [address]- 3092 Nov, [facility] [place] [facility] [address] [id number] [place] [address]- 8470 Oct, [facility] [place] [facility] [address] [id number] [place] [address]- 9536 Oct, [facility] [place] [facility] [address] [id number] [place] [address]- 1364 Oct, [facility] [place] [facility] [address] [id number] [place] [address]- 5668 September, [facility] [address] [id number] [place] [address]- 4338 September, [facility] [place] [facility] [address] [id number] [place] 4302 September, [facility] [place] [facility] [address] [id number] [place] [address]- 2696 September, [facility] [place] [facility] [address] [id number] [place] [address]- 4414 September, [facility] [place] [facility] [address] [id number] [place] [address]- 3609 September, [facility] [address] [id number] [place] [address]- 9698 Aug, [facility] [address] [id number] [place] [address]- 8079 Aug, [facility] [place] [facility] [address] [id number] [place] [address]- 3416 Aug, [facility] [place] [facility] [address] [id number] [place] [address]- 6842 Jun, [facility] [place] [facility] [address] [id number] [place] [address]- 0605 Jun, [facility] [address] [id number] [place] [address]- 3980 Jun, [facility] [place] [facility] [address] [id number] [place] [address]- 4441 Jun, [facility] [place] [facility] [address] [id number] [place] [address]- 9081 May, [facility] [place] [facility] [address] [id number] [place] [address]- 8533 May, [facility] [place] [facility] [address] [id number] [place] [address]- 4136 May, [facility] [place] [facility] [address] [id number] [place] [address]- 7710 May, [facility] [place] [facility] [address] [id number] [place] 3205 May, [facility] [place] [facility] [address] [id number] [place] [address]- 8475 Apr, [facility] [place] [facility] [address] [id number] [place] [address]- 6676 Apr, [facility] [place] [facility] [address] [id number] [place] [address]- 8488 Apr, [facility] [place] [facility] [address] [id number] [place] [address]- 2197 Apr, [facility] [place] [facility] [address] [id number] [place] [address]- 1743 Apr, [facility] [place] [facility] [address] [id number] [place] [address]- 6050 Apr, [facility] [place] [facility] [address] [id number] [place] [address]- 3613 Apr, [facility] [place] [facility] [address] [id number] [place] [address]- 3879 Mar, [facility] [place] [facility] [address] [id number] [place] [address]- 4464 Mar, [facility] [place] [facility] [address] [id number] [place] [address]- 8391 Mar, [facility] [place] [facility] [address] [id number] [place] [address]- 4633 Feb, [facility] [place] [facility] [address] [id number] [place] [address]- 2615 Feb, [facility] [place] [facility] [address] [id number] [place] [address]- 7023 Feb, [facility] [place] [facility] [address] [id number] [place] [address]- 4444 Feb, [facility] [place] [facility] [address] [id number] [place] [address]- 9044 Feb, [facility] [place] [facility] [address] [id number] [place] [address]- 0916 17 Feb, 2011 [facility] [place] [facility] [address] [id number] [place] [address] 2546 13 Jan, 2011 [facility] [place] [facility] [address] [id number] [place] [address]- 0766 Jan, [facility] [place] [facility] [address] [id number] [place] [address]- 7241 September, [facility] [place] [facility] [address] [id number] [place] [address]- 0586 Jun, [facility] [place] [facility] [address] [id number] [place] [address]- 2833 Apr, [facility] [place] [facility] [address] [id number] [place] [address]- 8023 Apr, [facility] [place] [facility] [address] [id number] [place] [address]- 1303 Apr, [facility] [place] [facility] [address] [id number] [place] [address]- 6179 Apr, [facility] [place] [facility] [address] [id number] [place] [address]- 5352 Apr, [facility] [place] [facility] [address] [id number], [place] [address] 2542 Mar, [facility] [place] [facility] [address] [id number] [place] [address] 2546 Mar, [facility] [place] [facility] [address] [id number] [place] [address]- 9285 Mar, [facility] [place] [facility] [address] [id number] [place] [address] 2546 Mar, [facility] [place] [facility] [address] [facility] [id number] [place] [address]- 7[address] Feb, [facility] [address] [facility] [id number], [place] [address]- 5705 [address], [address] [facility] [address] [id number] [address] Mar, [facility] [address] [facility] [id number] [address] 2418 Jan, [facility] [address] [id number] [address] Oct, [facility] [address] [facility] [id number], [place] [address]- 9928 Apr, IMMUNIZATIONS No Known Immunizations SOCIAL HISTORY Never Assessed REASON FOR VISIT Requests return call PLAN OF CARE VITAL SIGNS MEDICATIONS Unknown [...]
--- OUTSIDE RECORDS SUMMARY | 2018-03-22 21:43 | XMS REPORT ---
Author Author CARIDADANTONELLAJEVON [facility] Address [address] [place] [address] Care Team Providers Care Database Development Project Manager Name Role Phone MCLEANJEVON Melendrez Unavailable PROBLEMS Type Condition ICD9-CM Code DGY36-GD Code Onset Dates Condition Status SNOMED Code Problem Bilateral low back pain without sciatica M54.5 Active 681746491 Problem Anxiety F41.9 Active 86587461 Problem Pre-diabetes R73.03 Active 233003380 Problem Essential hypertension I10 Active 12529591 Problem Irritable bowel syndrome without diarrhea K58.9 Active 59328030 Problem Body mass index (BMI) of 40.0-44.9 in adult Z68.41 Active 578641959 Problem Morbid (severe) obesity due to excess calories E66.01 Active 275775809 Problem Pain in right foot M79.671 Active [id number] Problem Pain in left foot M79.672 Active 275257396624520 Problem Rhinosinusitis J32.9 Active 63928705 Problem Alternating constipation and diarrhea R19.8 Active 548028832 ALLERGIES No Information ENCOUNTERS Encounter Location Date Diagnosis [facility] [id number], [place] [address] Jan, [facility] [address], [place] [address] Jan, [facility] [id number], [place] [address] Jan, Dysuria R30.0 ; Acute cystitis with hematuria N30.01 ; Yeast infection B37.9 and BMI 40.0-44.9, adult Z68.41 [facility] [id number], [place] [address] Dec, [facility] [id number] [place] [address] 12307- 9675 Dec, [place] [id number] [place] [address] 60102- 8709 Nov, History of UTI Z87.440 [place] [id number] [place] [address] 30860- 8055 Nov, UTI symptoms R39.9 ; Acute nasopharyngitis J00 and BMI 40.0- 44.9, adult Z68.41 [place] [id number] [place] [address] 20122- 0608 Nov, [place] [id number] [place] [address] 45983- 8672 Nov, Yeast infection involving the vagina and surrounding area B37.3 [place] [id number] [place] [address] 03194- 8000 Nov, Yeast infection involving the vagina and surrounding area B37.3 [place] [id number] [place] [address] 27776- 8707 Nov, Yeast infection involving the vagina and surrounding area B37.3 ; Body mass index (BMI) of 40.0-44.9 in adult Z68.41 and Morbid (severe) obesity due to excess calories E66.01 [place] [id number] [place] [address] 48712- 0299 Oct, Abscess of groin, left L02.214 and Pre-diabetes R73.03 [place] [address], [place] [address] 495[address] September, Pre-diabetes R73.03 [place] [id number] [place] [address] 74032- 0963 Aug, [place] [id number] [place] [address] 82355- 9292 Jul, Bilateral low back pain without sciatica M54.5 [place] [id number] [place] [address] 04429- 6548 Jun, [facility] [id number] [place] [address] 21978- 8183 Jun, [facility] [id number] [place] [address] 63172- 1510 Jun, [facility] [id number] [place] [address] 87867- 3635 May, [facility] [id number] [place] [address] 01954- 1770 May, Ingrown left greater toenail L60.0 [facility] [address] 34198- 8453 May, [facility] [id number] [place] [address] 47226 -9672 May, Influenza A J10.1 ; Fever R50.9 and Body aches R52 [facility] [id number] [place] [address] 36856- 7173 Apr, [facility] [id number] [place] [address] 63585- 0190 Apr, [facility] [id number] [place] [address] 55341- 6969 Apr, [facility] [id number] [place] [address] 16165- 8502 Apr, Abscess L02.91 and Obesity (BMI 30-39.9) E66.9 [facility] [id number] [place] [address] 83868- 9930 Apr, [facility] [id number] [place] [address] 85389- 1906 Apr, [facility] [id number] [place] [address] 24973- 7605 Mar, Acute non-recurrent maxillary sinusitis J01.00 [facility] [id number] [place] [address] 86150- 3814 Feb, Heartburn R12 [place] [address] 48599- 8614 Feb, Heartburn R12 ; Low back pain M54.5 ; Essential hypertension I10 ; Bilateral low back pain without sciatica M54.5 ; Anxiety F41.9 ; Pre-diabetes R73.03 ; Other obesity due to excess calories E66.09 ; Alternating constipation and diarrhea R19.8 ; Dyspepsia R10.13 ; Generalized abdominal pain R10.84 ; Rhinosinusitis J32.9 and Boil L02.92 [place] [address] 74781- 5604 Jan, Heartburn R12 [place] [address] 85171- 9405 Jan, [place] [address] 43840- 1546 Jan, [place] [address] 49701- 0300 Jan, Acute seasonal allergic rhinitis due to pollen J30.1 and Irritable bowel syndrome without diarrhea K58.9 [place] [id number] [place] [address] 95489- 2128 Dec, Low back pain M54.5 and Acute cystitis with hematuria N30.01 [place] [id number] [place] [address] 13515- 9099 Dec, Low back pain M54.5 and Acute cystitis with hematuria N30.01 [place] [address] 41046- 8486 Dec, Heartburn R12 ; Essential hypertension I10 ; Acute non- recurrent maxillary sinusitis J01.00 ; Bilateral low back pain without sciatica M54.5 ; Anxiety F41.9 ; Pre-diabetes R73.03 ; Pain in right foot M79.671 ; Pain in left foot M79.672 ; Other obesity due to excess calories E66.09 and Acute cystitis with hematuria N30.01 [place] [address] 82573- 6013 Dec, Bilateral low back pain without sciatica M54.5 ; Acute non- recurrent maxillary sinusitis J01.00 and Pre-diabetes R73.03 [place] [address] 74969- 7929 Oct, [facility] [place] [address] 29454 -4281 Aug, [facility] [address] [address] Aug, Acute vaginitis N76.0 ; Urinary frequency R35.0 ; Screen for STD (sexually transmitted disease) Z11.3 and Abscess L02.91 [place] [address] 33413- 9312 Aug, Plantar wart of right foot B07.0 [place] [address] 10443- 6164 Jul, Plantar wart of right foot B07.0 [place] [address] 54431- 6792 Jun, [place] [address] 34801- 2983 Jun, Heartburn R12 ; Essential hypertension I10 ; Anxiety F41.9 ; Folliculitis L73.9 and Plantar wart of right foot B07.0 [place] [address] 49347- 4292 07 Jun, 2016 [facility] [place] [address] 38937 -7489 May, Low back pain M54.5 and Other chronic pain G89.29 [place] [address] 74375- 5602 May, [facility] [address] 95723- 2497 May, [place] [address] 56655- 3439 May, Heartburn R12 ; Bilateral low back pain without sciatica M54.5 ; Essential hypertension I10 ; Long-term use of high-risk medication Z79.899 ; Anxiety F41.9 ; Impacted cerumen of right ear H61.21 ; Folliculitis L73.9 ; High risk bisexual behavior Z72.53 and General medical exam Z00.00 [place] [address] 98357- 8976 May, [place] [address] 00010- 0021 May, [place] [address] 79779- 2073 Mar, Acute nasopharyngitis J00 ; Acute intractable tension-type headache G44.201 and Cough R05 [place] [address] 91284- 0619 Jan, [facility] [address] 09586 -3982 Jan, Abscess L02.91 [facility] [address] 29235 -2298 Jan, Urinary urgency R39.15 and Urinary tract infection without hematuria, site unspecified N39.0 [place] [address] 98958- 7708 Jan, [place] [address] 07639- 1931 Jan, [place] [address] 63771- 6155 Dec, [place] [address], [place] [address]- 6294 Dec, Dermatofibroma D23.9 [facility] [id number] [place] [address] 35168- 1201 September, [facility] [id number] [place] [address] 02092- 4108 Aug, [facility] [id number] [place] [address] 21188- 6676 Aug, Pain in left knee M25.562 ; Heartburn R12 ; Bilateral low back pain without sciatica M54.5 ; Essential hypertension I10 ; Ingrown left big toenail L60.0 ; Chronic pain G89.29 ; Irritable bowel syndrome with constipation K58.9 and Skin infection L08.9 [facility] [id number], [place] [address]- 4833 Aug, [facility] [id number] [place] [address] 87563- 5848 Jul, [facility] [id number] [place] [address] 05315- 0245 Jun, [facility] [id number], [place] [address]- 7863 Jun, [facility] [address], [place] [address]- 9922 Jun, [facility] [id number], [place] [address]- 5366 Jun, [facility] [address] [place] [address] 93950- 2955 Jun, Upper respiratory infection J06.9 ; Bilateral low back pain without sciatica M54.5 and Headache R51 [facility] [address], [place] [address]- 4641 May, [facility] [id number] [place] [address] 08301- 9614 Apr, Bilateral low back pain without sciatica M54.5 ; Upper respiratory infection J06.9 and Yeast dermatitis B37.2 [facility] [id number] [place] [address] 79793- 3052 Apr, [facility] [id number] [place] [address] 90070- 0897 Apr, [facility] [id number] [place] [address] 02778- 5740 Feb, [facility] [id number] [place] [address] 92418- 2620 Feb, [facility] [id number] [place] [address] 10169- 3214 Feb, [facility] [id number] [place] [address] 74559- 8050 Feb, Essential hypertension I10 ; Heartburn R12 ; Irritable bowel syndrome without diarrhea K58.9 ; Bilateral low back pain, with sciatica presence unspecified M54.5 and Upper respiratory infection J06.9 [place] [id number] [place] [address] 65926- 6329 Feb, [facility] [id number] [place] [address] 52290- 5453 Feb, Generalized anxiety disorder F41.1 and Grief F43.20 [facility] [id number] [place] [address] 67239- 6460 Jan, [facility] [id number] [place] [address] 74641- 8429 Jan, Back pain 724.5 ; Upper respiratory infection 465.9 ; HTN ( hypertension) 401.9 and Dyspepsia 536.8 [facility] [id number] [place] [address] 19429- 2826 Dec, [facility] [id number] [place] [address] 10991- 2841 Nov, Back pain 724.5 ; Abdominal pain, bilateral lower quadrant 789.03 ; GERD (gastroesophageal reflux disease) 530.81 ; Upper respiratory infection 465.9 ; Dysuria 788.1 and HTN (hypertension) 401.9 [facility] [id number] [place] [address] 55114- 8292 Nov, [facility] [address] 08933- 1036 Nov, [facility] [id number] [place] [address] 20297- 1825 Nov, [place] [address] 52935- 7815 Nov, Cough 786.2 [place] [id number] [place] [address] 48239- 1711 Nov, Cough 786.2 [place] [id number] [place] [address] 56574- 8443 Oct, Unspecified episodic mood disorder 296.90 and Anxiety disorder, unspecified 300.00 [place] [id number] [place] [address] 81260- 8110 Oct, Abdominal pain, left upper quadrant 789.02 ; Essential hypertension, benign 401.1 ; Irritable bowel syndrome 564.1 ; Abscess 682.9 ; Heartburn 787.1 ; Acute sinusitis, unspecified 461.9 ; Muscle spasm of back 724.8 ; Cough 786.2 and Skin tag 701.9 [place] [id number] [place] [address] 62061- 8835 September, [place] [id number] [place] [address] 29213- 9360 September, [facility] [id number] [place] [address] 63746- 7301 September, [facility] [address] 91813- 2546 14 Aug, 2014 [facility] [place] [facility] [address] [id number] [place] [address]- 5667 13 Aug, 2014 [facility] [place] [facility] [address] [id number] [place] [address]- 6816 30 Jul, 2014 [facility] [place] [facility] [address] [id number] [place] [address]- 2365 30 Jul, 2014 [facility] [place] [facility] [address] [id number] [place] [address]- 4101 Jul, [facility] [place] [facility] [address] [id number] [place] [address]- 3481 Jul, [facility] [place] [facility] [address] [id number] [place] [address]- 8196 Jul, [facility] [place] [facility] [address] [id number] [place] [address]- 8100 Jul, [facility] [place] [facility] [address] [id number] [place] [address]- 0314 Jul, [facility] [place] [facility] [address] [id number] [place] [address]- 9937 Jul, [facility] [place] [facility] [address] [id number] [place] [address]- 4609 Jul, [facility] [place] [facility] [address] [id number] [place] [address]- 7752 Jul, [facility] [place] [facility] [address] [id number] [place] [address]- 2166 Jul, [facility] [place] [facility] [address] [id number] [place] [address]- 7527 Jul, [facility] [place] [facility] [address] [id number] [place] [address]- 4442 Jul, [facility] [place] [facility] [address] [id number] [place] [address]- 7903 Jul, [facility] [place] [facility] [address] [id number] [place] [address]- 3863 Jul, 2014 [facility] [place] [facility] [address] [id number] [place] [address]- 8380 Jul, 2014 [facility] [place] [facility] [address] [id number] [place] [address]- 1444 Jul, 2014 [facility] [place] [facility] [address] [id number] [place] [address]- 8691 Jun, 2014 [facility] [place] [facility] [address] [id number] [place] [address]- 2475 Jun, 2014 [facility] [place] [facility] [address] [id number] [place] [address]- 8872 Jun, 2014 [facility] [place] [facility] [address] [facility] [id number] [place] [address]- 8910 Jun, 2014 [facility] [place] [facility] [address] [facility] [id number] [place] [address]- 0854 Jun, 2014 [facility] [place] [facility] [address] [id number] [place] [address]- 8529 Jun, 2014 [facility] [place] [facility] [address] [facility] [id number] [place] [address]- 5150 Jun, 2014 [facility] [place] [facility] [address] [facility] [id number] [place] [address]- 8224 Jun, 2014 [facility] [place] [facility] [address] [id number] [place] [address]- 7826 Apr, [facility] [place] [facility] [address] [id number] [place] [address]- 8870 Apr, [facility] [place] [facility] [address] [id number] [place] [address]- 2404 Apr, [facility] [place] [facility] [address] [id number] [place] [address]- 8382 Apr, [facility] [place] [facility] [address] [facility] [id number] [place] [address]- 2002 Apr, [facility] [place] [facility] [address] [id number] [place] [address]- 5388 18 Apr, 2014 [facility] [place] [facility] [address] [id number] [place] 5935 Apr, [facility] [place] [facility] [address] [id number] [place] [address]- 3540 Apr, [facility] [place] [facility] [address] [id number] [place] [address]- 7249 Apr, [facility] [place] [facility] [address] [id number] [place] [address]- 6880 Apr, [facility] [place] [facility] [address] [id number] [place] [address]- 8465 Apr, [facility] [place] [facility] [address] [id number] [place] [address]- 4889 Apr, [facility] [place] [facility] [address] [id number] [place] [address]- 4305 Apr, [facility] [place] [facility] [address] [id number] [place] [address]- 4256 Apr, [facility] [place] [facility] [address] [id number] [place] [address]- 1529 Apr, [facility] [place] [facility] [address] [id number] [place] [address]- 8806 Feb, [facility] [place] [facility] [address] [id number] [place] [address]- 6747 Feb, [facility] [place] [facility] [address] [id number] [place]- 5803 Feb, [facility] [place] [facility] [address] [id number] [place] [address]- 4100 Feb, [facility] [place] [facility] [address] [id number] [place] 6325 Feb, [facility] [place] [facility] [address] [id number] [place] [address]- 3856 Feb, [facility] [place] [facility] [address] [id number] [place] [address]- 2951 Jan, 2013 [facility] [place] [facility] [address] [id number] [place] [address]- 8366 Jan, 2013 [facility] [place] [facility] [address] [id number] [place] [address]- 1096 Jan, 2013 [facility] [place] [facility] [address] [id number] [place] [address]- 7223 Jan, 2013 [facility] [place] [facility] [address] [id number] [place] [address]- 3181 Jan, 2013 [facility] [place] [facility] [address] [id number] [place] [address]- 4561 Jan, 2013 [facility] [place] [facility] [address] [id number] [place] [address]- 8453 Dec, [facility] [place] [facility] [address] [id number] [place] [address]- 5672 Dec, [facility] [place] [facility] [address] [id number] [place] [address]- 9720 Dec, [facility] [place] [facility] [address] [id number] [place] [address]- 6871 Dec, [facility] [place] [facility] [address] [id number] [place] [address]- 6897 Nov, [facility] [place] [facility] [address] [id number] [place] [address]- 3862 Nov, [facility] [place] [facility] [address] [id number] [place] [address]- 0360 Nov, [facility] [place] [facility] [address] [id number] [place] [address]- 8175 Nov, [facility] [place] [facility] [address] [id number] [place] [address]- 6706 Nov, [facility] [place] [facility] [address] [id number] [place] [address]- 9725 Nov, [facility] [place] [facility] [address] [id number] [place] [address]- 7759 Nov, [facility] [place] [facility] [address] [id number] [place] [address]- 0951 Nov, [facility] [place] [facility] [address] [id number] [place] [address]- 0903 Oct, [facility] [place] [facility] [address] [id number] [place] [address]- 0324 Oct, [facility] [place] [facility] [address] [id number] [place] [address]- 9580 Oct, [facility] [place] [facility] [address] [id number] [place] [address]- 1659 Oct, [facility] [place] [facility] [address] [id number] [place] [address]- 5876 Oct, [facility] [place] [facility] [address] [id number] [place] [address]- 2669 Oct, [facility] [place] [facility] [address] [id number] [place] [address] Oct, [facility] [place] [facility] [address] [id number] [place] [address] Oct, [facility] [place] [facility] [address] [id number], [place] [address] Oct, [facility] [place] [facility] [address] [id number] [place] [address] Oct, [facility] [place] [facility] [address] [id number] [place] [address] Oct, [facility] [place] [facility] [address] [id number] [place] [address] Oct, [facility] [place] [facility] [address] [id number], [place] [address] 18 Oct, 2013 [facility] [place] [facility] [address] [id number] [place] [address] 18 Oct, 2013 [facility] [place] [facility] [address] [id number] [place] [address] 17 Oct, 2013 [facility] [place] [facility] [address] [id number] [place] [address] 17 Oct, 2013 [facility] [place] [facility] [address] [id number] [place] [address]- [address] 16 Oct, 2013 [facility] [place] [facility] [address] [id number] [place] [address] 16 Oct, 2013 [facility] [place] [facility] [address] [id number] [place] [address] Oct, [facility] [place] [facility] [address] [id number], [place] [address] Oct, [facility] [place] [facility] [address] [id number] [place] [address] Oct, [facility] [place] [facility] [address] [id number] [place] [address] Oct, [facility] [place] [facility] [address] [facility] [id number], [place] [address] Oct, [facility] [place] [facility] [address] [id number], [place] [address] Oct, [facility] [place] [facility] [address] [id number], [place] [address] Oct, [facility] [place] [facility] [address] [id number], [place] [address] Oct, [facility] [place] [facility] [address] [id number], [place] [address] Oct, [facility] [place] [facility] [address] [facility] [id number], [place] [address]- [address] Oct, [facility] [place] [facility] [address] [id number] [place] [address] Oct, [facility] [place] [facility] [address] [id number] [place] [address] Oct, [facility] [place] [facility] [address] [id number] [place] [address] September, [facility] [place] [facility] [address] [id number] [place] [address]- [address] September, [facility] [place] [facility] [address] [id number] [place] [address]- [address] September, [facility] [place] [facility] [address] [id number] [place] [address] September, [facility] [place] [facility] [address] [id number] [place] [address] September, [facility] [place] [facility] [address] [id number] [place] [address] September, [facility] [place] [facility] [address] [id number] [place] [address] September, [facility] [place] [facility] [address] [id number] [place] [address] September, [facility] [place] [facility] [address] [id number] [place] [address] September, [facility] [place] [facility] [address] [id number] [place] [address] September, [facility] [place] [facility] [address] [id number] [place] [address] September, [facility] [place] [facility] [address] [id number] [place] [address] September, [facility] [place] [facility] [address] [id number] [place] [address] September, [facility] [place] [facility] [address] [id number] [place] [address] September, [facility] [place] [facility] [address] [id number] [place] [address] September, [facility] [place] [facility] [address] [id number] [place] [address] September, [facility] [place] [facility] [address] [id number] [place] [address] 3[address] September, [facility] [place] [facility] [address] [id number] [place] [address] 60[address] September, [facility] [place] [facility] [address] [id number] [place] [address] 1253 Aug, [facility] [place] [facility] [address] [id number] [place] [address] 9[address] Aug, [facility] [place] [facility] [address] [id number] [place] [address] 6[address] Aug, [facility] [place] [facility] [address] [id number] [place] [address] 3652 Aug, [facility] [place] [facility] [address] [id number] [place] [address]- 3555 Aug, [facility] [place] [facility] [address] [id number] [place] [address] 4449 Aug, [facility] [place] [facility] [address] [id number] [place] [address] 7439 Jul, [facility] [place] [facility] [address] [id number], [place] [address] Jul, [facility] [place] [facility] [address] [id number] [place] [address]- 3[address] Jul, [facility] [place] [facility] [address] [id number] [place] [address]- 1151 Jul, [facility] [place] [facility] [address] [id number] [place] [address] 7217 Jun, [facility] [place] [facility] [address] [id number] [place] [address]- 8187 18 Jun, 2013 [facility] [address] [id number] [place] [address]- 3749 18 Jun, 2013 [facility] [place] [facility] [address] [id number] [place] [address]- 6598 18 Jun, 2013 [facility] [address] [id number] [place] [address] 8777 14 Mar, 2013 [facility] [place] [facility] [address] [id number] [place] [address]- 2419 14 Mar, 2013 [facility] [address] [id number] [place] [address]- 7253 Mar, [facility] [place] [facility] [address] [id number] [place] [address]- 0637 Mar, [facility] [place] [facility] [address] [id number] [place] [address]- 0037 Feb, [facility] [place] [facility] [address] [id number] [place] [address]- 9275 Feb, [facility] [place] [facility] [address] [id number] [place] [address]- 2554 Feb, [facility] [place] [facility] [address] [id number] [place] [address]- 8598 Jan, [facility] [place] [facility] [address] [id number] [place] [address]- 254 20 Jan, 2013 [facility] [place] [facility] [address] [id number] [place] [address]- 4565 12 Jan, 2013 [facility] [place] [facility] [address] [id number] [place] [address]- 2975 05 Jan, 2013 [facility] [place] [facility] [address] [id number] [place] [address]- 1048 Dec, [facility] [place] [facility] [address] [id number] [place] [address]- 5262 Dec, [facility] [place] [facility] [address] [id number] [place] [address]- 7609 Dec, [facility] [place] [facility] [address] [id number] [place] [address]- 1167 Dec, [facility] [place] [facility] [address] [id number] [place] [address]- 0637 Nov, [facility] [place] [facility] [address] [id number] [place] [address]- 2736 Nov, [facility] [place] [facility] [address] [id number] [place] [address]- 6390 Nov, [facility] [place] [facility] [address] [id number] [place] [address]- 1907 Nov, [facility] [place] [facility] [address] [id number] [place] [address]- 7795 Nov, [facility] [place] [facility] [address] [id number] [place] [address]- 1709 Nov, [facility] [place] [facility] [address] [id number] [place] [address]- 0947 Oct, [facility] [place] [facility] [address] [id number] [place] [address]- 6073 Oct, [facility] [place] [facility] [address] [id number] [place] [address]- 5835 Oct, [facility] [place] [facility] [address] [id number], [place] [address] 3313 Oct, [facility] [place] [facility] [address] [id number] [place] [address]- 6181 Oct, [facility] [place] [facility] [address] [id number] [place] [address]- 9428 Oct, [facility] [place] [facility] [address] [id number] [place] [address]- 2437 Oct, [facility] [place] [facility] [address] [id number], [place] [address] 6023 Oct, [facility] [address] [id number] [place] [address]- 3527 Oct, [facility] [address] [id number] [place] [address]- 1095 Oct, [facility] [address] [id number] [place] [address]- 5700 September, [facility] [address] [id number] [place] [address]- 6276 September, [facility] [address] [id number] [place] [address]- 8904 September, [facility] [address] [id number] [place] [address]- 0511 Aug, [facility] [address] [id number] [place] [address]- 2084 Aug, [facility] [address] [id number] [place] [address]- 5876 Aug, [facility] [address] [id number] [place] [address]- 8325 Aug, [facility] [address] [facility] [id number] [place] [address]- 6246 Jul, [facility] [address] [id number] [place] [address]- 4477 Jul, [facility] [place] [facility] [address] [id number] [place] [address]- 7413 Jul, [facility] [place] [facility] [address] [id number] [place] [address]- 4390 Jul, [facility] [place] [facility] [address] [id number] [place] [address]- 8780 Jul, [facility] [address] [facility] [id number] [place] [address]- 1114 Jul, [facility] [place] [facility] [address] [id number] [place] [address]- 2635 31 May, 2012 [facility] [address] [id number] [place] [address]- 7641 29 May, 2012 [facility] [place] [facility] [address] [id number] [place] [address]- 1324 May, [facility] [address] [id number] [place] [address]- 1303 May, [facility] [place] [facility] [address] [id number] [place] [address]- 9935 May, [facility] [place] [facility] [address] [id number] [place] [address]- 6870 May, [facility] [place] [facility] [address] [id number] [place] [address]- 2683 May, [facility] [address] [id number] [place] [address]- 7874 18 May, 2012 [facility] [address] [id number] [place] [address]- 1475 17 May, 2012 [facility] [address] [id number] [place] [address]- 7458 17 May, 2012 [facility] [address] [id number] [place] [address]- 3614 16 May, 2012 [facility] [address] [id number] [place] [address]- 0642 Apr, [facility] [place] [facility] [address] [id number] [place] [address]- 5512 Apr, [facility] [place] [facility] [address] [id number] [place] [address]- 7808 Apr, [facility] [place] [facility] [address] [id number] [place] [address]- 0629 Apr, [facility] [place] [facility] [address] [id number] [place] [address]- 5727 Apr, [facility] [place] [facility] [address] [id number] [place] [address]- 1481 Apr, [facility] [place] [facility] [address] [id number] [place] [address]- 1972 Mar, [facility] [place] [facility] [address] [facility] [id number] [place] [address]- 8400 Mar, [facility] [place] [facility] [address] [id number], [place] [address]- 9028 Mar, [facility] [place] [facility] [address] [id number] [place] [address]- 6431 Mar, [facility] [place] [facility] [address] [id number] [place] [address]- 0481 Mar, [facility] [place] [facility] [address] [facility] [id number] [place] [address]- 3674 Mar, [facility] [place] [facility] [address] [id number], [place] [address]- 1857 Mar, [facility] [place] [facility] [address] [id number], [place] [address]- 9237 Mar, [facility] [place] [facility] [address] [facility] [id number], [place] [address]- 2483 Feb, [facility] [place] [facility] [address] [id number], [place] [address]- 9524 Feb, [facility] [place] [facility] [address] [id number], [place] [address]- 1402 16 Feb, 2012 [facility] [place] [facility] [address] [id number], [place] [address]- 8512 15 Feb, 2012 [facility] [place] [facility] [address] [facility] [id number], [place] [address]- 6860 15 Feb, 2012 [facility] [place] [facility] [address] [facility] [id number], [place] [address]- 0198 13 Feb, 2012 [facility] [place] [facility] [address] [id number] [place] [address]- 1658 12 Feb, 2012 [facility] [place] [facility] [address] [id number] [place] [address]- 5537 Feb, [facility] [place] [facility] [address] [id number] [place] [address]- 1167 Feb, [facility] [place] [facility] [address] [id number] [place] [address]- 8270 Feb, [facility] [place] [facility] [address] [id number] [place] [address]- 5617 Feb, [facility] [place] [facility] [address] [id number] [place] [address]- 7942 Feb, [facility] [place] [facility] [address] [id number] [place] [address]- 5312 Feb, [facility] [place] [facility] [address] [id number] [place] [address]- 4273 Feb, [facility] [place] [facility] [address] [id number] [place] [address]- 7879 Feb, [facility] [place] [facility] [address] [id number] [place] [address]- 9760 Feb, [facility] [place] [facility] [address] [facility] [id number] [place] [address]- 4320 Feb, [facility] [place] [facility] [address] [id number] [place] [address]- 3404 04 Feb, 2012 [facility] [place] [facility] [address] [id number], [place] [address]- 0063 19 Jan, 2012 [facility] [place] [facility] [address] [id number] [place] [address]- 2967 13 Sep2011 [facility] [place] [facility] [address] [id number] [place] [address]- 8221 11 Jan, 2012 [facility] [place] [facility] [address] [id number] [place] [address]- 8548 10 Jan, 2012 [facility] [place] [facility] [address] [id number] [place] [address]- 7895 Jan, [facility] [place] [facility] [address] [id number] [place] [address]- 5407 Dec, [facility] [place] [facility] [address] [id number] [place] [address]- 6048 Dec, [facility] [place] [facility] [address] [id number] [place] [address]- 2490 Dec, [facility] [place] [facility] [address] [id number] [place] [address]- 6650 Dec, [facility] [place] [facility] [address] [id number] [place] [address]- 8447 Dec, [facility] [place] [facility] [address] [id number] [place] [address]- 8484 Dec, [facility] [place] [facility] [address] [id number] [place] [address]- 7595 Nov, [facility] [place] [facility] [address] [id number] [place] [address]- 7159 Nov, [facility] [place] [facility] [address] [id number] [place] [address]- 4471 Nov, [facility] [place] [facility] [address] [id number] [place] [address]- 3702 Nov, [facility] [place] [facility] [address] [id number] [place] [address]- 0517 Nov, [facility] [place] [facility] [address] [id number] [place] [address]- 3232 Oct, [facility] [place] [facility] [address] [id number] [place] [address]- 6780 Oct, [facility] [place] [facility] [address] [id number] [place] [address]- 6439 Oct, [facility] [place] [facility] [address] [id number] [place] [address]- 6164 September, [facility] [address] [id number] [place] [address]- 5984 September, [facility] [place] [facility] [address] [id number] [place] September, [facility] [place] [facility] [address] [id number] [place] [address]- 3666 September, [facility] [place] [facility] [address] [id number] [place] [address]- 6872 September, [facility] [place] [facility] [address] [id number] [place] [address]- 4391 September, [facility] [address] [id number] [place] [address]- 5851 Aug, [facility] [address] [id number] [place] [address]- 2292 Aug, [facility] [place] [facility] [address] [id number] [place] [address]- 6394 Aug, [facility] [place] [facility] [address] [id number] [place] [address]- 1150 Jun, [facility] [place] [facility] [address] [id number] [place] [address]- 5421 Jun, [facility] [address] [id number] [place] [address]- 6182 Jun, [facility] [place] [facility] [address] [id number] [place] [address]- 9679 Jun, [facility] [place] [facility] [address] [id number] [place] [address]- 9506 May, [facility] [place] [facility] [address] [id number] [place] [address]- 7553 May, [facility] [place] [facility] [address] [id number] [place] [address]- 8699 May, [facility] [place] [facility] [address] [id number] [place] [address]- 6444 May, [facility] [place] [facility] [address] [id number] [place]591 May, [facility] [place] [facility] [address] [id number] [place] [address]- 9555 Apr, [facility] [place] [facility] [address] [id number] [place] [address]- 3986 Apr, [facility] [place] [facility] [address] [id number] [place] [address]- 1802 Apr, [facility] [place] [facility] [address] [id number] [place] [address]- 6176 Apr, [facility] [place] [facility] [address] [id number] [place] [address]- 8334 Apr, [facility] [place] [facility] [address] [id number] [place] [address]- 1171 Apr, [facility] [place] [facility] [address] [id number] [place] [address]- 1108 Apr, [facility] [place] [facility] [address] [id number] [place] [address]- 8510 Mar, [facility] [place] [facility] [address] [id number] [place] [address]- 1259 Mar, [facility] [place] [facility] [address] [id number] [place] [address]- 5741 Mar, [facility] [place] [facility] [address] [id number] [place] [address]- 7704 Feb, [facility] [place] [facility] [address] [id number] [place] [address]- 0505 Feb, [facility] [place] [facility] [address] [id number] [place] [address]- 5543 Feb, [facility] [place] [facility] [address] [id number] [place] [address]- 9517 Feb, [facility] [place] [facility] [address] [id number] [place] [address]- 3377 Feb, [facility] [place] [facility] [address] [id number] [place] [address]- 1066 17 Feb, 2011 [facility] [place] [facility] [address] [id number] [place] [address] 2546 13 Jan, 2011 [facility] [place] [facility] [address] [id number] [place] [address]- 9846 Jan, [facility] [place] [facility] [address] [id number] [place] [address]- 3311 September, [facility] [place] [facility] [address] [id number] [place] [address]- 2596 Jun, [facility] [place] [facility] [address] [id number] [place] [address]- 9732 Apr, [facility] [place] [facility] [address] [id number] [place] [address]- 2604 Apr, [facility] [place] [facility] [address] [id number] [place] [address]- 4430 Apr, [facility] [place] [facility] [address] [id number] [place] [address]- 0931 Apr, [facility] [place] [facility] [address] [id number] [place] [address]- 4150 Apr, [facility] [place] [facility] [address] [id number], [place] [address] 2548 Mar, [facility] [place] [facility] [address] [id number] [place] [address] 2546 Mar, [facility] [place] [facility] [address] [id number] [place] [address]- 9875 Mar, [facility] [place] [facility] [address] [id number] [place] [address] 2546 Mar, [facility] [place] [facility] [address] [facility] [id number] [place] [address]- 1829 Feb, [facility] [address] [facility] [id number][place] [address] [address]45 Jan, [facility] [address] [facility] [id number] 1741 Mar, [facility] [address] [facility] [id number], [place] [address]- 0460 Jan, [facility] [address] [facility] [id number], [place] [address]- 7715 Oct, [facility] [address] [facility] [id number], [place] [address]- 1627 Apr, IMMUNIZATIONS No Known Immunizations SOCIAL HISTORY Never Assessed REASON FOR VISIT Requests return call PLAN OF CARE VITAL SIGNS MEDICATIONS Medication Instructions Dosage Frequency Start Date End Date Duration Status Diflucan 150 MG Orally one time 1 tablet Nov, Active RESULTS No Results PROCEDURES No Known [...]
--- OUTSIDE RECORDS SUMMARY | 2018-03-22 21:44 | XMS REPORT ---
Author Author MCLEANJEVON Melendrez Organization [facility] Address [address] [place] [address] Care Team Providers Care Circus Trainer Name Role Phone JEVON MCLEAN Unavailable PROBLEMS Type Condition ICD9-CM Code [id number] Code Onset Dates Condition Status SNOMED Code Problem Bilateral low back pain without sciatica M54.5 Active 601565317 Problem Anxiety F41.9 Active 55834450 Problem Pre-diabetes R73.03 Active 741429308 Problem Essential hypertension I10 Active 89148052 Problem Irritable bowel syndrome without diarrhea K58.9 Active 76067560 Problem Body mass index (BMI) of 40.0-44.9 in adult Z68.41 Active 562574237 Problem Morbid (severe) obesity due to excess calories E66.01 Active 979723505 Problem Pain in right foot M79.671 Active 52439760540524165 Problem Pain in left foot M79.672 Active 549390297172802 Problem Rhinosinusitis J32.9 Active 79253513 Problem Alternating constipation and diarrhea R19.8 Active 138279077 ALLERGIES Substance Reaction Event Type Date Status Penicillin V Potassium anaphylaxis Drug Allergy Nov, Active surgical tape "tears skin off" Non Drug Allergy Nov, Active ENCOUNTERS Encounter Location Date Diagnosis [facility] [address] [facility] [id number] [address] Jan, [facility] [address] [facility] [id number] [address] Jan, [facility] [address] [place] [id number] [address] Jan, [facility] [address] [facility] [id number] [address] Jan, Dysuria R30.0 ; Acute cystitis with hematuria N30.01 ; Yeast infection B37.9 and BMI 40.0-44.9, adult Z68.41 [place] [address] [address] Dec, [place] [id number] [place] [address] 79878- 8259 Dec, [place] [address] [place] [id number] [place] [address] 44959- 6611 Nov, History of UTI Z87.440 [place] [address] [place] [id number] [place] [address] 96994- 1234 Nov, UTI symptoms R39.9 ; Acute nasopharyngitis J00 and BMI 40.0- 44.9, adult Z68.41 [place] [id number] [place] [address] 20645- 2209 Nov, [place] [address] [place] [id number] [place] [address] 42488- 8702 Nov, Yeast infection involving the vagina and surrounding area B37.3 [place] [address] [address] 7244 Nov, Yeast infection involving the vagina and surrounding area B37.3 [place] [address] [place] [address] 94216- 2125 Nov, Yeast infection involving the vagina and surrounding area B37.3 ; Body mass index (BMI) of 40.0-44.9 in adult Z68.41 and Morbid (severe) obesity due to excess calories E66.01 [place] [address] [address] Oct, Abscess of groin, left L02.214 and Pre-diabetes R73.03 [place] [address] [place] [address] 85138- 9132 September, Pre-diabetes R73.03 [place] [address] [place] [address] 72583- 6332 Aug, [facility] [id number] [place] [address] 10162- 9075 Jul, Bilateral low back pain without sciatica M54.5 [facility] [id number] [place] [address] 10301- 9512 Jun, [facility] [id number] [place] [address] 76625- 7721 Jun, [facility] [address] [address]- 3342 Jun, [facility] [address] 9[address]34- 0873 May, [facility] [address] 44652- 7145 May, Ingrown left greater toenail L60.0 [facility] [address] 87688- 1097 May, [facility] [id number] [place] [address] 13887 -0215 May, Influenza A J10.1 ; Fever R50.9 and Body aches R52 [facility] [id number] [place] [address] 55205- 6791 Apr, [facility] [id number] [place] [address] 64166- 6305 Apr, [facility] [id number] [place] [address] 04466- 2616 Apr, [facility] [id number] [place] [address] 30544- 5070 Apr, Abscess L02.91 and Obesity (BMI 30-39.9) E66.9 [facility] [id number] [place] [address] 05769- 8639 Apr, [facility] [address] 98158- 9772 Apr, [place] [address] [place] [id number] [place] [address] 19882- 1331 Mar, Acute non-recurrent maxillary sinusitis J01.00 [place] [address] 41680- 1349 Feb, Heartburn R12 [place] [address] 73469- 5216 Feb, Heartburn R12 ; Low back pain M54.5 ; Essential hypertension I10 ; Bilateral low back pain without sciatica M54.5 ; Anxiety F41.9 ; Pre-diabetes R73.03 ; Other obesity due to excess calories E66.09 ; Alternating constipation and diarrhea R19.8 ; Dyspepsia R10.13 ; Generalized abdominal pain R10.84 ; Rhinosinusitis J32.9 and Boil L02.92 [place] [address] 04583- 9753 Jan, Heartburn R12 [place] [address] 28855- 0017 Jan, [place] [address] 71201- 8090 Jan, [place] [address] 93569- 3907 Jan, Acute seasonal allergic rhinitis due to pollen J30.1 and Irritable bowel syndrome without diarrhea K58.9 [place] [address] [place] [id number] [place] [address] 63100- 9688 Dec, Low back pain M54.5 and Acute cystitis with hematuria N30.01 [place] [address] 46406- 4194 Dec, Low back pain M54.5 and Acute cystitis with hematuria N30.01 [place] [address] 25579- 3898 Dec, Heartburn R12 ; Essential hypertension I10 ; Acute non- recurrent maxillary sinusitis J01.00 ; Bilateral low back pain without sciatica M54.5 ; Anxiety F41.9 ; Pre-diabetes R73.03 ; Pain in right foot M79.671 ; Pain in left foot M79.672 ; Other obesity due to excess calories E66.09 and Acute cystitis with hematuria N30.01 [place] [address] 49761- 5590 Dec, Bilateral low back pain without sciatica M54.5 ; Acute non- recurrent maxillary sinusitis J01.00 and Pre-diabetes R73.03 [place] [address] 44183- 8595 Oct, [facility] [place] [address] 14396 -7932 Aug, [facility] [place] [address] 92421 -0372 Aug, Acute vaginitis N76.0 ; Urinary frequency R35.0 ; Screen for STD (sexually transmitted disease) Z11.3 and Abscess L02.91 [place] [address] 00462- 1991 Aug, Plantar wart of right foot B07.0 [place] [address] [place] [id number] [place] [address] 66908- 6382 Jul, Plantar wart of right foot B07.0 [place] [address] 89404- 0884 Jun, [place] [address] 19355- 6705 Jun, Heartburn R12 ; Essential hypertension I10 ; Anxiety F41.9 ; Folliculitis L73.9 and Plantar wart of right foot B07.0 [place] [address] 44353- 7015 Jun, [facility] [address] [id number] [place] [address] 42295 -3018 May, Low back pain M54.5 and Other chronic pain G89.29 [place] [address] 84744- 8404 May, [place] [address] 75584- 6836 May, [place] [address] 03688- 9637 May, Heartburn R12 ; Bilateral low back pain without sciatica M54.5 ; Essential hypertension I10 ; Long-term use of high-risk medication Z79.899 ; Anxiety F41.9 ; Impacted cerumen of right ear H61.21 ; Folliculitis L73.9 ; High risk bisexual behavior Z72.53 and General medical exam Z00.00 [place] [address] 82683- 4546 May, [place] [address] 18230- 5402 May, [place] [address] 98831- 7969 Mar, Acute nasopharyngitis J00 ; Acute intractable tension-type headache G44.201 and Cough R05 [place] [address] 36547- 6826 Jan, [facility] [address] 38199 -0060 Jan, Abscess L02.91 [facility] [place] [address] 14572 -0592 10 Jan, 2016 Urinary urgency R39.15 and Urinary tract infection without hematuria, site unspecified N39.0 [place] [address] 98329- 9052 Jan, [place] [address] [address]- 6067 Jan, [facility] [address] [place] [address] 43768- 2468 Dec, [facility] [address] [address]- 2588 Dec, Dermatofibroma D23.9 [facility] [address] [id number] [place] [address] 72611- 4398 September, [facility] [address] [place] [address] 43919- 2333 Aug, [facility] [address] [id number] [place] [address] 59034- 1464 Aug, Pain in left knee M25.562 ; Heartburn R12 ; Bilateral low back pain without sciatica M54.5 ; Essential hypertension I10 ; Ingrown left big toenail L60.0 ; Chronic pain G89.29 ; Irritable bowel syndrome with constipation K58.9 and Skin infection L08.9 [facility] [address] [address]- 9080 Aug, [facility] [address] [place] [address] 24517- 8788 Jul, [facility] [address] [address]- 6547 Jun, [facility] [address] [address]- 7876 Jun, [facility] [address] [address]- 4201 Jun, [facility] [address] [address]- 7141 Jun, [facility] [address] [address]- 4230 Jun, Upper respiratory infection J06.9 ; Bilateral low back pain without sciatica M54.5 and Headache R51 [facility] [address] [id number] [place] [address] 90356- 2462 May, [facility] [address] [place] [id number] [place] [address] 51110- 7764 Apr, Bilateral low back pain without sciatica M54.5 ; Upper respiratory infection J06.9 and Yeast dermatitis B37.2 [place] [address] [place] [id number] [place] [address] 84910- 5358 Apr, [facility] [address] [place] [id number] [place] [address] 70484- 9843 Apr, [place] [address] [place] [id number] [place] [address] 83242- 9030 Feb, [place] [address] [place] [id number] [place] [address] 12428- 3775 Feb, [facility] [address] [place] [id number] [place] [address] 85079- 3749 Feb, [facility] [address] [id number] [place] [address] 69210- 1949 Feb, Essential hypertension I10 ; Heartburn R12 ; Irritable bowel syndrome without diarrhea K58.9 ; Bilateral low back pain, with sciatica presence unspecified M54.5 and Upper respiratory infection J06.9 [place] [address] [place] [id number] [place] [address] 29654- 2726 Feb, [place] [address] [place] [id number] [place] [address] 20518- 9147 Feb, Generalized anxiety disorder F41.1 and Grief F43.20 [place] [address] [place] [id number] [place] [address] 62933- 7511 Jan, [facility] [address] [place] [id number] [place] [address] 58882- 5206 Jan, Back pain 724.5 ; Upper respiratory infection 465.9 ; HTN ( hypertension) 401.9 and Dyspepsia 536.8 [place] [address] [place] [id number] [place] [address] 99762- 5403 Dec, [place] [address] [place] [id number] [place] [address] 59236- 2762 Nov, Back pain 724.5 ; Abdominal pain, bilateral lower quadrant 789.03 ; GERD (gastroesophageal reflux disease) 530.81 ; Upper respiratory infection 465.9 ; Dysuria 788.1 and HTN (hypertension) 401.9 [place] [address] [place] [id number] [place] [address] 67767- 2090 Nov, [place] [address] 64238- 0082 Nov, [place] [address] [place] [id number] [place] [address] 75057- 7366 Nov, [place] [address] [place] [id number] [place] [address] 39972- 9203 Nov, Cough 786.2 [place] [address] [place] [id number] [place] [address] 16791- 9398 Nov, Cough 786.2 [place] [address] [place] [id number] [place] [address] 47209- 1517 Oct, Unspecified episodic mood disorder 296.90 and Anxiety disorder, unspecified 300.00 [place] [address] [place] [id number] [place] [address] 92103- 7585 Oct, Abdominal pain, left upper quadrant 789.02 ; Essential hypertension, benign 401.1 ; Irritable bowel syndrome 564.1 ; Abscess 682.9 ; Heartburn 787.1 ; Acute sinusitis, unspecified 461.9 ; Muscle spasm of back 724.8 ; Cough 786.2 and Skin tag 701.9 [place] [address] [place] [id number] [place] [address] 51643- 4514 September, [place] [address] [place] [id number] [place] [address] 84928- 7402 September, [facility] [place] [facility] [address] [id number] [place] [address]- 4843 September, [facility] [place] [facility] [address] [id number] [place] [address]- 8807 Aug, [facility] [place] [facility] [address] [id number] [place] [address]- 4317 Aug, [facility] [place] [facility] [address] [id number] [place] [address]- 6155 30 Jul, 2014 [facility] [place] [facility] [address] [id number] [place] [address]- 5132 Jul, [facility] [place] [facility] [address] [id number] [place] [address]- 2547 Jul, [facility] [place] [facility] [address] [id number] [place] [address]- 4965 Jul, [facility] [place] [facility] [address] [id number] [place] [address]- 6251 Jul, [facility] [place] [facility] [address] [id number] [place] [address]- 7776 Jul, [facility] [place] [facility] [address] [id number] [place] [address]- 9611 Jul, [facility] [place] [facility] [address] [id number] [place] [address]- 9799 Jul, [facility] [place] [facility] [address] [id number] [place] [address]- 9164 Jul, [facility] [place] [facility] [address] [id number] [place] [address]- 6804 Jul, [facility] [place] [facility] [address] [id number] [place] [address]- 5344 Jul, [facility] [place] [facility] [address] [id number] [place] [address]- 2236 Jul, [facility] [place] [facility] [address] [id number] [place] [address]- 1384 Jul, 2014 [facility] [place] [facility] [address] [id number] [place] [address]- 0221 Jul, 2014 [facility] [place] [facility] [address] [id number] [place] [address]- 2649 Jul, 2014 [facility] [place] [facility] [address] [id number] [place] [address]- 5833 Jul, 2014 [facility] [place] [facility] [address] [id number] [place] [address]- 6381 Jul, 2014 [facility] [place] [facility] [address] [id number] [place] [address]- 1891 Jun, 2014 [facility] [place] [facility] [address] [facility] [id number] [place] [address]- 2240 Jun, 2014 [facility] [place] [facility] [address] [facility] [id number] [place] [address]- 6322 Jun, 2014 [facility] [place] [facility] [address] [facility] [id number] [place] [address]- 8049 Jun, 2014 [facility] [place] [facility] [address] [facility] [id number] [place] [address]- 5211 Jun, 2014 [facility] [place] [facility] [address] [facility] [id number] [place] [address]- 5185 Jun, 2014 [facility] [place] [facility] [address] [facility] [id number] [place] [address]- 9924 Jun, [facility] [place] [facility] [address] [facility] [id number] [place] [address]- 8574 Jun, [facility] [place] [facility] [address] [facility] [id number] [place] [address]- 4784 Apr, [facility] [place] [facility] [address] [facility] [id number] [place] 6178 Apr, [facility] [place] [facility] [address] [facility] [id number] [place] [address]- 1035 Apr, [facility] [place] [facility] [address] [id number] [place] [address]- 2586 Apr, [facility] [place] [facility] [address] [id number] [place] [address]- 6552 Apr, [facility] [place] [facility] [address] [id number] [place] 1668 Apr, [facility] [place] [facility] [address] [id number] [place] 9978 Apr, [facility] [place] [facility] [address] [id number] [place] [address]- 9823 15 Apr, 2014 [facility] [place] [facility] [address] [id number] [place] [address]- 3045 Apr, [facility] [place] [facility] [address] [id number] [place] [address]- 2170 Apr, [facility] [place] [facility] [address] [id number] [place] [address]- 8766 Apr, [facility] [place] [facility] [address] [id number] [place] [address]- 9619 Apr, [facility] [place] [facility] [address] [id number] [place] [address]- 4585 Apr, [facility] [place] [facility] [address] [id number] [place] [address]- 2382 Apr, [facility] [place] [facility] [address] [id number] [address]- 8899 Apr, [facility] [place] [facility] [address] [id number] [place] [address]- 8104 Feb, [facility] [place] [facility] [address] [id number] [place] [address]- 5555 Feb, [facility] [place] [facility] [address] [id number] [place] [address]- 6125 Feb, [facility] [place] [facility] [address] [id number] [place] [address]- 7616 Feb, [facility] [place] [facility] [address] [id number] [place] [address]- 4810 Feb, [facility] [place] [facility] [address] [id number] [place] [address]- 0375 Feb, [facility] [place] [facility] [address] [id number] [place] [address]- 3726 Jan, [facility] [place] [facility] [address] [id number] [place] [address]- 5092 Jan, [facility] [place] [facility] [address] [id number] [place] [address]- 4542 Jan, [facility] [place] [facility] [address] [id number] [place] [address]- 6808 Jan, [facility] [place] [facility] [address] [id number] [place] [address]- 7534 Jan, [facility] [place] [facility] [address] [id number] [place] [address]- 2869 Jan, [facility] [place] [facility] [address] [id number] [place] [address]- 8920 Dec, [facility] [place] [facility] [address] [id number] [place] [address]- 6596 Dec, [facility] [place] [facility] [address] [id number] [place] [address]- 9741 Dec, [facility] [place] [facility] [address] [id number] [place] [address]- 2601 Dec, [facility] [place] [facility] [address] [id number] [place] [address]- 8742 Nov, [facility] [place] [facility] [address] [id number] [place] [address]- 0477 Nov, [facility] [place] [facility] [address] [id number] [place] [address]- 4323 Nov, [facility] [place] [facility] [address] [id number] [place] [address]- 9920 Nov, [facility] [place] [facility] [address] [id number] [place] [address]- 0772 Nov, [facility] [place] [facility] [address] [id number] [place] [address]- 1596 Nov, [facility] [place] [facility] [address] [id number] [place] [address]- 6624 Nov, [facility] [place] [facility] [address] [id number] [place] [address]- 4274 Nov, [facility] [place] [facility] [address] [id number] [place] [address]- 8136 Oct, [facility] [place] [facility] [address] [id number] [place] [address]- 4602 Oct, [facility] [place] [facility] [address] [id number] [place] [address]- 8414 Oct, [facility] [place] [facility] [address] [id number] [place] [address] Oct, [facility] [place] [facility] [address] [id number] [place] [address] Oct, [facility] [place] [facility] [address] [id number] [place] [address] Oct, [facility] [place] [facility] [address] [id number] [place] [address] Oct, [facility] [place] [facility] [address] [id number] [place] [address] Oct, [facility] [place] [facility] [address] [id number] [place] [address] Oct, [facility] [place] [facility] [address] [id number] [place] [address] Oct, [facility] [place] [facility] [address] [id number] [place] [address] Oct, [facility] [place] [facility] [address] [id number] [place] [address] Oct, [facility] [place] [facility] [address] [id number] [place] [address] Oct, [facility] [place] [facility] [address] [id number] [place] [address] Oct, [facility] [place] [facility] [address] [id number] [place] [address] 17 Oct, 2013 [facility] [place] [facility] [address] [id number] [place] [address] 17 Oct, 2013 [facility] [place] [facility] [address] [id number] [place] [address] Oct, [facility] [place] [facility] [address] [id number] [place] [address]- [address] Oct, [facility] [place] [facility] [address] [id number] [place] [address] Oct, [facility] [place] [facility] [address] [id number] [place] [address] Oct, [facility] [place] [facility] [address] [id number] [place] [address] Oct, [facility] [place] [facility] [address] [id number] [place] [address] Oct, [facility] [place] [facility] [address] [id number] [place] [address] Oct, [facility] [place] [facility] [address] [id number] [place] [address] Oct, [facility] [place] [facility] [address] [id number] [place] [address] Oct, [facility] [place] [facility] [address] [id number] [place] [address] Oct, [facility] [place] [facility] [address] [id number] [place] [address] Oct, [facility] [place] [facility] [address] [id number] [place] [address] Oct, [facility] [place] [facility] [address] [id number] [place] [address] Oct, [facility] [place] [facility] [address] [id number] [place] [address] Oct, [facility] [place] [facility] [address] [id number] [place] [address] September, [facility] [place] [facility] [address] [id number] [place] [address]- [address] September, [facility] [place] [facility] [address] [id number] [place] [address] September, [facility] [place] [facility] [address] [id number] [place] [address] September, [facility] [place] [facility] [address] [id number] [place] [address] September, [facility] [place] [facility] [address] [id number] [place] [address] September, [facility] [place] [facility] [address] [id number] [place] [address] September, [facility] [place] [facility] [address] [id number] [place] [address] September, [facility] [place] [facility] [address] [id number] [place] [address] September, [facility] [place] [facility] [address] [id number] [place] [address] September, [facility] [place] [facility] [address] [id number] [place] [address] September, [facility] [place] [facility] [address] [id number] [place] [address] September, [facility] [address] [id number] [place] [address] 14[address] September, [facility] [place] [facility] [address] [id number] [place] [address] September, [facility] [place] [facility] [address] [id number] [place] [address] 3849 September, [facility] [place] [facility] [address] [id number] [place] [address]487 September, [facility] [place] [facility] [address] [id number] [place] [address] 9145 September, [facility] [place] [facility] [address] [id number] [place] [address] September, [facility] [place] [facility] [address] [id number] [place] [address] 1682 Aug, [facility] [place] [facility] [address] [id number] [place] [address] 5552 Aug, [facility] [place] [facility] [address] [id number] [place] [address] 3322 Aug, [facility] [place] [facility] [address] [id number] [place] [address] 7051 Aug, [facility] [place] [facility] [address] [id number] [place] [address] 6220 Aug, [facility] [place] [facility] [address] [id number] [place] [address] 6860 Aug, [facility] [place] [facility] [address] [id number] [place] [address] 7299 Jul, [facility] [place] [facility] [address] [id number] [place] [address] 9490 Jul, [facility] [place] [facility] [address] [id number] [place] [address]- 5612 Jul, [facility] [place] [facility] [address] [id number] [place] [address] 5158 Jul, [facility] [place] [facility] [address] [id number] [place] [address]- 1324 Jun, [facility] [place] [facility] [address] [id number] [place] [address]- 0120 Jun, [facility] [place] [facility] [address] [id number] [place] [address]- 9557 Jun, [facility] [place] [facility] [address] [id number] [place] [address]- 5865 Jun, [facility] [place] [facility] [address] [id number] [place] [address] 4058 Mar, [facility] [place] [facility] [address] [id number] [place] [address]- 3951 Mar, [facility] [place] [facility] [address] [id number] [place] [address]- 9940 Mar, [facility] [place] [facility] [address] [id number] [place] [address]- 2458 Mar, [facility] [place] [facility] [address] [id number] [place] [address] 1247 Feb, [facility] [place] [facility] [address] [id number] [place] [address]- 5259 Feb, [facility] [place] [facility] [address] [id number] [place] [address]- 8999 Feb, [facility] [place] [facility] [address] [id number] [place] [address]- 5293 Jan, [facility] [place] [facility] [address] [id number] [place] [address]- 5346 20 Jan, 2013 [facility] [place] [facility] [address] [id number] [place] [address]- 2545 12 Jan, 2013 [facility] [place] [facility] [address] [id number] [place] [address]- 1791 Jan, [facility] [place] [facility] [address] [id number] [place] [address]- 7547 Dec, [facility] [place] [facility] [address] [id number] [place] [address]- 9434 Dec, [facility] [place] [facility] [address] [id number] [place] [address]- 9020 Dec, [facility] [place] [facility] [address] [id number] [place] [address]- 8705 Dec, [facility] [place] [facility] [address] [id number] [place] [address]- 6947 Nov, [facility] [place] [facility] [address] [id number] [place] [address]- 6292 Nov, [facility] [place] [facility] [address] [id number] [place] [address]- 9325 Nov, [facility] [place] [facility] [address] [id number] [place] [address]- 3500 Nov, [facility] [place] [facility] [address] [id number] [place] [address]- 0536 Nov, [facility] [place] [facility] [address] [id number] [place] [address]- 7358 Nov, [facility] [place] [facility] [address] [id number] [place] [address]- 6657 Oct, [facility] [place] [facility] [address] [id number] [place] [address]- 7442 Oct, [facility] [place] [facility] [address] [id number] [place] [address]- 8010 Oct, [facility] [place] [facility] [address] [id number] [place] [address]- 5456 Oct, [facility] [place] [facility] [address] [id number] [place] [address]- 5254 Oct, [facility] [place] [facility] [address] [id number] [place] [address]- 2503 16 Oct, 2012 [facility] [address] [id number] [place] [address] 14 Oct, 2012 [facility] [place] [facility] [address] [id number] [place] [address]- 3481 13 Oct, 2012 [facility] [place] [facility] [address] [id number] [place] [address]- 2258 Oct, [facility] [place] [facility] [address] [id number] [place] [address]- 6727 Oct, [facility] [place] [facility] [address] [id number] [place] [address]- 1027 September, [facility] [place] [facility] [address] [id number] [place] [address]- 8634 September, [facility] [address] [id number] [place] [address]- 2586 September, [facility] [place] [facility] [address] [id number] [place] [address]- 1349 Aug, [facility] [place] [facility] [address] [id number] [place] [address]- 7932 Aug, [facility] [place] [facility] [address] [id number] [place] [address]- 7604 Aug, [facility] [place] [facility] [address] [id number] [place] [address]- 0127 Aug, [facility] [place] [facility] [address] [id number] [place] [address]- 4871 Jul, [facility] [place] [facility] [address] [id number] [place] [address]- 7632 Jul, [facility] [place] [facility] [address] [id number] [place] [address]- 6119 Jul, [facility] [place] [facility] [address] [id number] [place] [address]- 6953 Jul, [facility] [place] [facility] [address] [id number] [place] [address]- 7476 04 Jul, 2012 [facility] [address] [id number] [place] [address]- 4932 Jul, [facility] [address] [id number] [place] [address]- 6326 May, [facility] [address] [id number] [place] [address]- 4571 May, [facility] [address] [id number] [place] [address]- 5704 May, [facility] [address] [id number] [place] [address]- 1454 May, [facility] [address] [id number] [place] [address]- 0041 May, [facility] [address] [id number] [place] [address]- 0612 May, [facility] [address] [id number] [place] [address]- 8468 May, [facility] [address] [id number] [place] [address]- 6646 May, [facility] [address] [id number] [place] [address]- 4182 May, [facility] [address] [id number] [place] [address]- 7843 May, [facility] [address] [id number] [place] [address]- 1926 May, [facility] [address] [id number] [place] [address]- 5286 Apr, [facility] [address] [id number] [place] [address]- 2366 Apr, [facility] [address] [id number] [place] [address]- 8552 Apr, [facility] [place] [facility] [address] [id number] [place] [address]- 3130 Apr, [facility] [place] [facility] [address] [id number] [place] [address]- 3267 Apr, [facility] [place] [facility] [address] [id number] [place] [address]- 9585 Apr, [facility] [place] [facility] [address] [id number] [place] [address]- 8769 Mar, [facility] [place] [facility] [address] [id number] [place] [address]- 9870 Mar, [facility] [place] [facility] [address] [id number] [place] [address]- 7904 Mar, [facility] [place] [facility] [address] [facility] [id number] [place] [address]- 3076 Mar, [facility] [place] [facility] [address] [id number] [place] [address]- 7347 Mar, [facility] [place] [facility] [address] [id number] [place] [address]- 5343 Mar, [facility] [place] [facility] [address] [facility] [id number] [place] [address]- 2858 Mar, [facility] [place] [facility] [address] [id number] [place] [address]- 3887 Mar, [facility] [place] [facility] [address] [id number] [place] [address]- 0889 Feb, [facility] [place] [facility] [address] [id number] [place] [address]- 3385 Feb, [facility] [place] [facility] [address] [id number] [place] [address]- 7743 16 Feb, 2012 [facility] [place] [facility] [address] [id number] [place] [address]- 2800 15 Feb, 2012 [facility] [place] [facility] [address] [id number] [place] [address]- 0846 15 Feb, 2012 [facility] [place] [facility] [address] [id number] [place] [address]- 1197 13 Feb, 2012 [facility] [place] [facility] [address] [id number] [place] [address]- 3427 Feb, [facility] [place] [facility] [address] [id number] [place] [address]- 4576 Feb, [facility] [place] [facility] [address] [id number] [place] [address]- 2820 12 Feb, 2012 [facility] [place] [facility] [address] [id number] [place] [address]- 9223 Feb, [facility] [place] [facility] [address] [id number] [place] [address]- 9665 Feb, [facility] [place] [facility] [address] [id number] [place] [address]- 0212 Feb, [facility] [place] [facility] [address] [id number] [place] [address]- 2410 Feb, [facility] [place] [facility] [address] [id number] [place] [address]- 5983 Feb, [facility] [place] [facility] [address] [facility] [id number] [place] [address]- 2080 Feb, [facility] [place] [facility] [address] [id number] [place] [address]- 4424 Feb, [facility] [place] [facility] [address] [id number] [place] [address]- 3480 09 Feb, 2012 [facility] [place] [facility] [address] [id number] [place] [address]- 3445 04 Feb, 2012 [facility] [place] [facility] [address] [id number] [place] [address]- 9073 19 Jan, 2012 [facility] [place] [facility] [address] [id number] [place] [address]- 2302 13 Sep2011 [facility] [place] [facility] [address] [id number] [place] [address]- 8331 11 Jan, 2012 [facility] [place] [facility] [address] [id number] [place] [address]- 6526 Jan, [facility] [place] [facility] [address] [id number] [place] [address]- 1756 Jan, [facility] [place] [facility] [address] [id number] [place] [address]- 3594 Dec, [facility] [place] [facility] [address] [id number] [place] [address]- 3184 Dec, [facility] [place] [facility] [address] [id number] [place] [address]- 6726 Dec, [facility] [place] [facility] [address] [id number] [place] [address]- 5587 Dec, [facility] [place] [facility] [address] [id number] [place] [address]- 7110 Dec, [facility] [place] [facility] [address] [id number] [place] [address]- 7038 Dec, [facility] [place] [facility] [address] [id number] [place] [address]- 3908 Nov, [facility] [place] [facility] [address] [id number] [place] [address]- 6137 Nov, [facility] [place] [facility] [address] [id number] [place] [address]- 6174 Nov, [facility] [place] [facility] [address] [id number] [place] [address]- 5929 Nov, [facility] [place] [facility] [address] [id number] [place] [address]- 5140 Nov, [facility] [place] [facility] [address] [id number] [place] [address]- 3442 Oct, [facility] [place] [facility] [address] [id number] [place] [address]- 5117 Oct, [facility] [place] [facility] [address] [id number] [place] [address]- 2292 Oct, [facility] [place] [facility] [address] [id number] [place] [address]- 3547 September, [facility] [place] [facility] [address] [id number] [place] [address]- 2350 September, [facility] [place] [facility] [address] [id number] [place] [address]- 5082 September, [facility] [place] [facility] [address] [id number] [place] [address]- 8269 September, [facility] [place] [facility] [address] [id number] [place] [address]- 8631 September, [facility] [place] [facility] [address] [id number] [place] [address]- 4426 September, [facility] [place] [facility] [address] [id number] [place] [address]- 7929 Aug, [facility] [place] [facility] [address] [id number] [place] [address]- 4371 Aug, [facility] [place] [facility] [address] [id number] [place] [address]- 5414 Aug, [facility] [place] [facility] [address] [id number] [place] [address]- 7328 Jun, [facility] [place] [facility] [address] [id number] [place] [address]- 1834 Jun, [facility] [place] [facility] [address] [id number] [place] [address]- 2148 Jun, [facility] [place] [facility] [address] [id number] [place] [address]- 9932 Jun, [facility] [place] [facility] [address] [id number] [place] [address]- 1522 May, [facility] [place] [facility] [address] [id number] [place] [address]- 1945 May, [facility] [address] [id number] [place] [address]- 0999 May, [facility] [place] [facility] [address] [id number] [place] [address]- 5599 May, [facility] [address] [id number] [place] [address]- 8028 May, [facility] [place] [facility] [address] [id number] [place] [address]- 0055 Apr, [facility] [address] [id number] [place] [address]- 5852 Apr, [facility] [place] [facility] [address] [id number] [place] [address]- 0609 Apr, [facility] [place] [facility] [address] [id number] [place] [address]- 4705 Apr, [facility] [address] [id number] [place] [address]- 8824 Apr, [facility] [place] [facility] [address] [id number] [place] [address]- 8133 Apr, [facility] [address] [id number] [place] [address]- 4348 Apr, [facility] [place] [facility] [address] [id number] [place] [address]- 5947 Mar, [facility] [place] [facility] [address] [id number] [place] [address]- 3010 Mar, [facility] [place] [facility] [address] [id number] [place] [address]- 5626 Mar, [facility] [place] [facility] [address] [id number] [place] [address]- 3626 Feb, [facility] [place] [facility] [address] [id number] [place] [address]- 3903 Feb, [facility] [place] [facility] [address] [id number] [place] [address]- 2707 Feb, [facility] [place] [facility] [address] [id number] [place] [address]- 6437 Feb, [facility] [place] [facility] [address] [id number] [place]69 Feb, [facility] [place] [facility] [address] [id number] [place] [address]- 0178 Feb, [facility] [place] [facility] [address] [id number] [place] [address]- 0612 Jan, [facility] [place] [facility] [address] [id number] [place] [address]- 6887 Jan, [facility] [place] [facility] [address] [id number] [place] [address]- 6783 September, [facility] [place] [facility] [address] [id number] [place] [address]- 1838 Jun, [facility] [place] [facility] [address] [id number] [place] [address]- 7174 Apr, [facility] [place] [facility] [address] [id number] [place] [address]- 1144 Apr, [facility] [place] [facility] [address] [id number] [place] [address]- 6080 Apr, [facility] [place] [facility] [address] [id number] [place] [address]- 7728 Apr, [facility] [place] [facility] [address] [id number] [place] [address]80 Apr, [facility] [place] [facility] [address] [id number] [place] [address]- 5944 30 Mar, 2010 [facility] [place] [facility] [address] [id number] [place] [address] Mar, [facility] [place] [facility] [address] [facility] [id number] [place] [address]- 2546 Mar, [facility] [id number] [address] 2546 Mar, [facility] [address] [id number] [address]- 2546 Feb, [facility] [id number] [address]- 2546 Jan, [facility] [id number] [place] [address]- 2546 Mar, [facility] [id number] [place] [address] 2546 Jan, [facility] [id number] [place] [address] 2546 Oct, [facility] [id number] [address] 2546 Apr, IMMUNIZATIONS No Known Immunizations SOCIAL HISTORY Never Assessed REASON FOR VISIT Yeast infection, possible, patient states that she just got off of an antibiotic and the outside of her vagina is very irritated and itchy, she says that the toilet paper she uses at work is very rough and she may have cut herself a little bit. pt states she is feeling more moist in her vaginal area but there is no odor., pt states she is also needing refills on her medications- [facility] PLAN OF CARE Activity Details Follow Up 3 Months, prn Reason:Est Care VITAL SIGNS Height 66 in 2017-11-20 Weight 259.7 lbs 2017-11-20 Temperature 98.4 degrees Fahrenheit 2017-11-20 Heart Rate 92 bpm 2017-11-20 Respiratory Rate 20 2017-11-20 BMI 41.91 kg/m2 2017-11-20 Blood pressure systolic 128 mmHg 2017-11-20 Blood pressure diastolic 72 mmHg 2017-11-20 MEDICATIONS Medication Instructions Dosage Frequency Start Date End Date Duration Status Fluconazole 150 MG Orally one time 1 tablet Nov, Nov, 1 dose Active Actos 30 MG Orally Once a day 1/2 tablet 24h 60 days Active Flexeril 10 mg Orally 2 times a day s needed 1 tablet 28 Active Lisinopril 20 MG TAKE ONE TABLET BY MOUTH ONCE DAILY 30 Active Omeprazole 20 mg Orally Once a day 1 capsule 24h Active Ibuprofen 800 MG Orally Three times a day 1 tablet 8h 30 Active RESULTS No Results PROCEDURES No Known [...]
--- OUTSIDE RECORDS SUMMARY | 2018-03-22 21:45 | XMS REPORT ---
Author Author MCLEANJEVON Melendrez [facility] Address [address] [place] [address] Care Team Providers Care Wildlife Conservation Officer Name Role Phone JEVON MCLEAN Unavailable PROBLEMS Type Condition ICD9-CM Code FAR24-VA Code Onset Dates Condition Status SNOMED Code Problem Bilateral low back pain without sciatica M54.5 Active 442760036 Problem Anxiety F41.9 Active 84048979 Problem Pre-diabetes R73.03 Active 535417363 Problem Essential hypertension I10 Active 96577161 Problem Irritable bowel syndrome without diarrhea K58.9 Active 89718914 Problem Body mass index (BMI) of 40.0-44.9 in adult Z68.41 Active 058294013 Problem Morbid (severe) obesity due to excess calories E66.01 Active 268150145 Problem Pain in right foot M79.671 Active [id number] Problem Pain in left foot M79.672 Active 088036598228574 Problem Rhinosinusitis J32.9 Active 40366939 Problem Alternating constipation and diarrhea R19.8 Active 743664671 ALLERGIES Substance Reaction Event Type Date Status Penicillin V Potassium anaphylaxis Drug Allergy Oct, Active surgical tape "tears skin off" Non Drug Allergy Oct, Active ENCOUNTERS Encounter Location Date Diagnosis [facility] [address] [facility] [id number] [address] Dec, [facility] [address] [facility] [id number], [place] [address] 96[address] Dec, [facility] [address] [place] [id number] [place] [address] 75480- 5111 Nov, History of UTI Z87.440 [facility] [address] [facility] [id number], [place] [address] Nov, UTI symptoms R39.9 ; Acute nasopharyngitis J00 and BMI 40.0- 44.9, adult Z68.41 [facility] [address] [address] Nov, [facility] [address] [place] [id number] [place] [address] 381206- 8376 Nov, Yeast infection involving the vagina and surrounding area B37.3 [facility] [address] [place] [id number] [place] [address] 30263- 3329 Nov, Yeast infection involving the vagina and surrounding area B37.3 [place] [id number] [place] [address] 58999- 8873 Nov, Yeast infection involving the vagina and surrounding area B37.3 ; Body mass index (BMI) of 40.0-44.9 in adult Z68.41 and Morbid (severe) obesity due to excess calories E66.01 [place] [address] [place] [id number] [place] [address] 00945- 2656 Oct, Abscess of groin, left L02.214 and Pre-diabetes R73.03 [place] [id number] [place] [address] 64215- 1817 September, Pre-diabetes R73.03 [facility] [address] [place] [id number] [place] [address] 18842- 2196 Aug, [facility] [id number] [place] [address] 60441- 5140 Jul, Bilateral low back pain without sciatica M54.5 [facility] [id number] [place] [address] 05893- 0186 Jun, [place] [address] [place] [id number] [place] [address] 94198- 2956 Jun, [facility] [address] [place] [id number] [place] [address] 19418- 7866 Jun, [facility] [address] [id number] [place] [address] 14009- 4005 May, [facility] [id number] [place] [address] 48031- 9386 May, Ingrown left greater toenail L60.0 [facility] [address] [address]335- 5965 May, [facility] [address] 18656 -8846 May, Influenza A J10.1 ; Fever R50.9 and Body aches R52 [place] [address] 90714- 8816 Apr, [place] [address] 31702- 6488 Apr, [place] [address] 64006- 0541 Apr, [place] [address] 67250- 2766 Apr, Abscess L02.91 and Obesity (BMI 30-39.9) E66.9 [place] [address] 35778- 0618 Apr, [place] [address] 16849- 0899 Apr, [place] [address] 53512- 1067 Mar, Acute non-recurrent maxillary sinusitis J01.00 [place] [address] [place] [id number] [place] [address] 06164- 3249 Feb, Heartburn R12 [place] [address] 55103- 5488 Feb, Heartburn R12 ; Low back pain M54.5 ; Essential hypertension I10 ; Bilateral low back pain without sciatica M54.5 ; Anxiety F41.9 ; Pre-diabetes R73.03 ; Other obesity due to excess calories E66.09 ; Alternating constipation and diarrhea R19.8 ; Dyspepsia R10.13 ; Generalized abdominal pain R10.84 ; Rhinosinusitis J32.9 and Boil L02.92 [place] [address] [place] [id number] [place] [address] 36784- 6067 Jan, Heartburn R12 [place] [address] 00714- 9944 Jan, [place] [address] 87492- 2066 Jan, [place] [address] 86963- 6204 Jan, Acute seasonal allergic rhinitis due to pollen J30.1 and Irritable bowel syndrome without diarrhea K58.9 [place] [address] 08269- 1079 Dec, Low back pain M54.5 and Acute cystitis with hematuria N30.01 [place] [address] [place] [id number] [place] [address] 97833- 1321 Dec, Low back pain M54.5 and Acute cystitis with hematuria N30.01 [place] [address] [place] [id number] [place] [address] 18955- 0811 Dec, Heartburn R12 ; Essential hypertension I10 ; Acute non- recurrent maxillary sinusitis J01.00 ; Bilateral low back pain without sciatica M54.5 ; Anxiety F41.9 ; Pre-diabetes R73.03 ; Pain in right foot M79.671 ; Pain in left foot M79.672 ; Other obesity due to excess calories E66.09 and Acute cystitis with hematuria N30.01 [place] [address] [place] [id number] [place] [address] 66947- 8339 Dec, Bilateral low back pain without sciatica M54.5 ; Acute non- recurrent maxillary sinusitis J01.00 and Pre-diabetes R73.03 [place] [address] [place] [id number] [place] [address] 42195- 8146 Oct, [facility] [place] [address] 47378 -1907 Aug, [facility] [place] [address] 70793 -7272 Aug, Acute vaginitis N76.0 ; Urinary frequency R35.0 ; Screen for STD (sexually transmitted disease) Z11.3 and Abscess L02.91 [place] [address] 31343- 5639 Aug, Plantar wart of right foot B07.0 [place] [address] 05759- 5454 Jul, Plantar wart of right foot B07.0 [place] [address] 02679- 0161 Jun, [place] [address] 42768- 8876 Jun, Heartburn R12 ; Essential hypertension I10 ; Anxiety F41.9 ; Folliculitis L73.9 and Plantar wart of right foot B07.0 [place] [address] [place] [id number] [place] [address] 07904- 2018 Jun, [facility] [place] [address] [place] [address] [id number] [place] [address] 18586 -0146 May, Low back pain M54.5 and Other chronic pain G89.29 [place] [address] [place] [id number] [place] [address] 91583- 3929 May, [place] [address] 22281- 9153 May, [place] [address] [place] [id number] [place] [address] 75013- 4789 May, Heartburn R12 ; Bilateral low back pain without sciatica M54.5 ; Essential hypertension I10 ; Long-term use of high-risk medication Z79.899 ; Anxiety F41.9 ; Impacted cerumen of right ear H61.21 ; Folliculitis L73.9 ; High risk bisexual behavior Z72.53 and General medical exam Z00.00 [facility] [address] [id number] [place] [address] 20129- 5470 May, [place] [address] 13659- 6945 May, [place] [address] 66088- 7508 Mar, Acute nasopharyngitis J00 ; Acute intractable tension-type headache G44.201 and Cough R05 [place] [address] 37592- 8249 Jan, [facility] [address] 08249 -5332 Jan, Abscess L02.91 [facility] [place] [address] 06313 -3480 Jan, Urinary urgency R39.15 and Urinary tract infection without hematuria, site unspecified N39.0 [place] [address] [place] [id number] [place] [address] 43224- 4693 Jan, [place] [address] [place] [id number] [place] [address] 74341- 5712 Jan, [place] [address] 67611- 9977 Dec, [place] [address] [place] [id number] [place] [address] 62916- 7818 Dec, Dermatofibroma D23.9 [place] [address] 75327- 1347 September, [place] [address] 29612- 3920 Aug, [place] [address] [place] [id number] [place] [address] 45801- 7334 Aug, Pain in left knee M25.562 ; Heartburn R12 ; Bilateral low back pain without sciatica M54.5 ; Essential hypertension I10 ; Ingrown left big toenail L60.0 ; Chronic pain G89.29 ; Irritable bowel syndrome with constipation K58.9 and Skin infection L08.9 [facility] [address] 97790- 0692 Aug, [facility] [address] [place] [id number] [place] [address] 91558- 2001 Jul, [facility] [address] [place] [id number] [place] [address] 06670- 8736 Jun, [facility] [address] [place] [id number] [place] [address] 71110- 4333 Jun, [facility] [address] [place] [id number] [place] [address] 74455- 6475 Jun, [facility] [address] [place] [id number] [place] [address] 29251- 9806 Jun, [facility] [address] [place] [id number] [place] [address] 90672- 9789 Jun, Upper respiratory infection J06.9 ; Bilateral low back pain without sciatica M54.5 and Headache R51 [facility] [address] [place] [id number] [place] [address] 79351- 8792 May, [facility] [address] [place] [id number] [place] [address] 09339- 4904 Apr, Bilateral low back pain without sciatica M54.5 ; Upper respiratory infection J06.9 and Yeast dermatitis B37.2 [facility] [address] [id number] [place] [address] 32005- 8585 Apr, [facility] [address] [place] [address] [id number] [place] [address] 93583- 9786 Apr, [facility] [address] [place] [address] 32737- 8698 Feb, [facility] [address] [place] [id number] [place] [address] 12445- 9944 Feb, [facility] [address] [place] [id number] [place] [address] 33610- 2737 Feb, [facility] [address] 69576- 2725 Feb, Essential hypertension I10 ; Heartburn R12 ; Irritable bowel syndrome without diarrhea K58.9 ; Bilateral low back pain, with sciatica presence unspecified M54.5 and Upper respiratory infection J06.9 [place] [address] [place] [id number] [place] [address] 34588- 6363 Feb, [place] [address] [place] [id number] [place] [address] 18612- 8440 Feb, Generalized anxiety disorder F41.1 and Grief F43.20 [place] [address] [place] [id number] [place] [address] 48143- 4084 Jan, [place] [address] [place] [id number] [place] [address] 18914- 9965 Jan, Back pain 724.5 ; Upper respiratory infection 465.9 ; HTN ( hypertension) 401.9 and Dyspepsia 536.8 [place] [address] [place] [id number] [place] [address] 55633- 1033 Dec, [facility] [address] [place] [id number] [place] [address] 10337- 4310 Nov, Back pain 724.5 ; Abdominal pain, bilateral lower quadrant 789.03 ; GERD (gastroesophageal reflux disease) 530.81 ; Upper respiratory infection 465.9 ; Dysuria 788.1 and HTN (hypertension) 401.9 [facility] [address] [place] [address] 73736- 5876 Nov, [place] [address] [id number] [address]- 9231 Nov, [facility] [address] [place] [address] 19371- 7058 Nov, [facility] [address] [place] [id number] [place] [address] 68589- 8541 Nov, Cough 786.2 [facility] [address] [place] [id number] [place] [address] 787831- 9173 Nov, Cough 786.2 [facility] [address] [place] [id number] [place] [address] 94681- 9182 Oct, Unspecified episodic mood disorder 296.90 and Anxiety disorder, unspecified 300.00 [facility] [address] [place] [id number] [place] [address] 73519- 4884 Oct, Abdominal pain, left upper quadrant 789.02 ; Essential hypertension, benign 401.1 ; Irritable bowel syndrome 564.1 ; Abscess 682.9 ; Heartburn 787.1 ; Acute sinusitis, unspecified 461.9 ; Muscle spasm of back 724.8 ; Cough 786.2 and Skin tag 701.9 [facility] [address] [place] [id number] [place] [address] 86614- 2344 September, [facility] [address] [place] [id number] [place] [address] 65135- 6541 September, [facility] [address] [place] [address] 32608- 6798 September, [facility] [address] [place] [address] 87090- 2875 Aug, [facility] [address] [place] [id number] [place] [address] 40772- 8037 Aug, [facility] [address] [place] [id number] [place] [address] 49730271- 7071 Jul, [facility] [address] [place] [id number] [place] [address] 073262- 8549 Jul, [facility] [place] [facility] [address] [id number] [place] [address]- 7378 Jul, [facility] [place] [facility] [address] [id number] [place] [address]- 8538 Jul, [facility] [place] [facility] [address] [id number] [place] [address]- 9953 Jul, [facility] [place] [facility] [address] [id number] [place] [address]- 8631 Jul, [facility] [place] [facility] [address] [id number] [place] [address]- 8747 Jul, [facility] [place] [facility] [address] [id number] [place] [address]- 2623 Jul, [facility] [place] [facility] [address] [id number] [place] [address]- 9564 Jul, [facility] [place] [facility] [address] [id number] [place] [address]- 4208 Jul, [facility] [place] [facility] [address] [id number] [place] [address]- 8765 Jul, [facility] [place] [facility] [address] [id number] [place] [address]- 6773 Jul, [facility] [place] [facility] [address] [id number] [place] [address]- 6310 Jul, [facility] [place] [facility] [address] [id number], [place] [address]- 2148 Jul, [facility] [place] [facility] [address] [id number] [place] [address]- 1944 Jul, [facility] [place] [facility] [address] [id number] [place] [address]- 5473 Jul, [facility] [place] [facility] [address] [id number] [place] [address]- 9011 Jul, [facility] [place] [facility] [address] [id number] [place] [address]- 7747 Jun, 2014 [facility] [place] [facility] [address] [id number] [place] [address]- 6396 Jun, 2014 [facility] [place] [facility] [address] [id number] [place] 4186 Jun, 2014 [facility] [place] [facility] [address] [id number] [place] [address]- 4796 Jun, 2014 [facility] [place] [facility] [address] [id number] [place] [address]- 2546 Jun, 2014 [facility] [place] [facility] [address] [id number] [place] [address]- 0556 Jun, 2014 [facility] [place] [facility] [address] [facility] [id number] [place] [address]- 4706 Jun, 2014 [facility] [place] [facility] [address] [facility] [id number] [place] [address]- 6600 Jun, 2014 [facility] [place] [facility] [address] [facility] [id number] [place] [address]- 1810 29 Apr, 2014 [facility] [place] [facility] [address] [facility] [id number] [place] [address]- 8076 29 Apr, 2014 [facility] [place] [facility] [address] [facility] [id number] [place] [address]- 2231 Apr, [facility] [place] [facility] [address] [facility] [id number] [place] [address] 2546 23 Apr, 2014 [facility] [place] [facility] [address] [facility] [id number] [place] [address]- 2546 18 Apr, 2014 [facility] [place] [facility] [address] [id number] [place] [address] 2546 18 Apr, 2014 [facility] [place] [facility] [address] [facility] [id number] [place] [address]- 2546 15 Apr, 2014 [facility] [place] [facility] [address] [facility] [id number] [place] [address]- 7254 Apr, [facility] [place] [facility] [address] [id number] [place] [address]- 9092 Apr, [facility] [place] [facility] [address] [id number] [place] [address]- 7484 Apr, [facility] [place] [facility] [address] [id number] [place] 2289 Apr, [facility] [place] [facility] [address] [id number] [place] [address]- 5104 Apr, [facility] [place] [facility] [address] [id number] [place] 2730 Apr, [facility] [place] [facility] [address] [id number] [place] [address]- 0656 Apr, [facility] [place] [facility] [address] [id number] [place] [address]- 3391 Apr, [facility] [place] [facility] [address] [id number] [place] [address]- 0144 Feb, [facility] [place] [facility] [address] [id number] [place] [address]- 3037 Feb, [facility] [place] [facility] [address] [id number] [place] [address]- 4329 Feb, [facility] [place] [facility] [address] [id number], [place] [address]- 7138 Feb, [facility] [place] [facility] [address] [id number][place] [address]- 5024 Feb, [facility] [place] [facility] [address] [id number] [place] [address]- 1164 Feb, [facility] [place] [facility] [address] [id number] [place] [address]- 0697 Jan, [facility] [place] [facility] [address] [id number], [place] [address]- 3092 Jan, [facility] [place] [facility] [address] [id number], [place] [address]- 6130 Jan, [facility] [place] [facility] [address] [id number] [place] [address]- 7747 Jan, [facility] [place] [facility] [address] [id number] [place] [address]- 9026 Jan, [facility] [place] [facility] [address] [id number] [place] [address]- 9336 Jan, [facility] [place] [facility] [address] [id number] [place] [address]- 8347 Dec, [facility] [place] [facility] [address] [id number] [place] [address]- 1816 Dec, [facility] [place] [facility] [address] [id number] [place] [address]- 9596 Dec, [facility] [place] [facility] [address] [id number] [place] [address]- 1895 Dec, [facility] [place] [facility] [address] [id number] [place] [address]- 2819 Nov, [facility] [place] [facility] [address] [id number] [place] [address]- 0670 Nov, [facility] [place] [facility] [address] [id number] [place] [address]- 7393 Nov, [facility] [place] [facility] [address] [id number] [place] [address] Nov, [facility] [place] [facility] [address] [id number] [place] [address] Nov, [facility] [place] [facility] [address] [id number] [place] [address] Nov, [facility] [place] [facility] [address] [id number] [place] [address] Nov, [facility] [place] [facility] [address] [id number] [place] [address] Nov, [facility] [place] [facility] [address] [id number] [place] [address] 30 Oct, 2013 [facility] [place] [facility] [address] [id number] [place] [address] Oct, [facility] [place] [facility] [address] [id number] [place] [address] Oct, [facility] [place] [facility] [address] [id number] [place] [address] Oct, [facility] [place] [facility] [address] [id number] [place] [address] Oct, [facility] [place] [facility] [address] [id number] [place] [address] Oct, [facility] [place] [facility] [address] [id number] [place] [address] Oct, [facility] [place] [facility] [address] [id number] [place] [address] Oct, [facility] [place] [facility] [address] [id number] [place] [address] Oct, [facility] [place] [facility] [address] [id number] [place] [address] Oct, [facility] [place] [facility] [address] [id number] [place] [address] Oct, [facility] [place] [facility] [address] [id number] [place] [address] Oct, [facility] [place] [facility] [address] [id number] [place] [address] Oct, [facility] [place] [facility] [address] [id number] [place] [address] Oct, [facility] [place] [facility] [address] [id number] [place] [address] Oct, [facility] [place] [facility] [address] [id number] [place] [address] 17 Oct, 2013 [facility] [place] [facility] [address] [id number] [place] [address] Oct, [facility] [place] [facility] [address] [id number] [place] [address] Oct, [facility] [place] [facility] [address] [id number] [place] [address] Oct, [facility] [place] [facility] [address] [id number] [place] [address] Oct, [facility] [place] [facility] [address] [id number] [place] [address] Oct, [facility] [place] [facility] [address] [id number] [place] [address] Oct, [facility] [place] [facility] [address] [id number] [place] [address] Oct, [facility] [place] [facility] [address] [id number] [place] [address] Oct, [facility] [place] [facility] [address] [id number] [place] [address] Oct, [facility] [place] [facility] [address] [id number] [place] [address] Oct, [facility] [place] [facility] [address] [id number] [address] Oct, [facility] [place] [facility] [address] [id number], [place] [address] Oct, [facility] [place] [facility] [address] [id number] [place] [address] Oct, [facility] [place] [facility] [address] [id number] [place] [address] Oct, [facility] [place] [facility] [address] [id number] [place] [address] September, [facility] [place] [facility] [address] [id number] [place] [address] September, [facility] [address] [id number] [place] [address] September, [facility] [address] [id number] [place] [address] September, [facility] [address] [id number] [place] [address] September, [facility] [place] [facility] [address] [id number] [place] [address] September, [facility] [address] [id number] [place] [address] September, [facility] [address] [address] [id number] [place] [address] September, [facility] [address] [id number] [place] [address]101 September, [facility] [address] [id number] [place] [address] 8268 September, [facility] [address] [id number] [place] [address] September, [facility] [address] [id number] [place] [address] 0922 September, [facility] [address] [id number] [place] [address] September, [facility] [place] [facility] [address] [id number] [place] [address]1 September, [facility] [place] [facility] [address] [id number] [place] [address] 2883 September, [facility] [place] [facility] [address] [id number] [place] [address] 8200 September, [facility] [place] [facility] [address] [id number] [place] [address] 6540 September, [facility] [place] [facility] [address] [id number] [place] [address] 6096 September, [facility] [place] [facility] [address] [id number] [place] [address] 6769 Aug, [facility] [place] [facility] [address] [id number] [place] [address] 6476 Aug, [facility] [place] [facility] [address] [id number] [place] [address]- 7105 Aug, [facility] [place] [facility] [address] [id number] [place] [address] 4193 Aug, [facility] [place] [facility] [address] [id number] [place] [address] 9777 Aug, [facility] [place] [facility] [address] [id number] [place] [address] 8771 Aug, [facility] [place] [facility] [address] [id number] [place] [address]- 0415 Jul, [facility] [place] [facility] [address] [id number] [place] [address] 7107 Jul, [facility] [place] [facility] [address] [id number] [place] [address]- 5658 Jul, [facility] [place] [facility] [address] [id number] [place] [address]- 2642 Jul, [facility] [place] [facility] [address] [id number] [place] [address] 6245 Jun, [facility] [place] [facility] [address] [id number] [place] [address]- 0776 Jun, [facility] [place] [facility] [address] [id number] [place] [address]- 0248 Jun, [facility] [place] [facility] [address] [id number] [place] [address]- 6389 Jun, [facility] [place] [facility] [address] [id number], [place] [address] 14 Mar, 2013 [facility] [place] [facility] [address] [id number] [place] [address]- 4366 14 Mar, 2013 [facility] [place] [facility] [address] [id number] [place] [address] 2311 Mar, [facility] [place] [facility] [address] [id number] [place] [address]- 4726 Mar, [facility] [place] [facility] [address] [id number] [place] [address]- 0103 Feb, [facility] [place] [facility] [address] [id number] [place] [address] 6044 Feb, [facility] [place] [facility] [address] [id number] [place] [address] 9759 Feb, [facility] [place] [facility] [address] [id number] [place] [address] 7610 Jan, [facility] [place] [facility] [address] [id number] [place] [address] 4310 Jan, [facility] [place] [facility] [address] [id number] [place] [address]- 1747 Jan, [facility] [place] [facility] [address] [id number] [place] [address]- 8363 05 Jan, 2013 [facility] [place] [facility] [address] [id number] [place] [address]- 7923 Dec, [facility] [place] [facility] [address] [id number] [place] [address]- 7622 Dec, [facility] [place] [facility] [address] [id number] [place] [address]- 3387 Dec, [facility] [place] [facility] [address] [id number] [place] [address]- 2858 Dec, [facility] [place] [facility] [address] [id number] [place] [address] 7315 Nov, [facility] [place] [facility] [address] [id number] [place] [address]- 7026 Nov, [facility] [place] [facility] [address] [id number] [place] [address]- 0350 Nov, [facility] [place] [facility] [address] [id number] [place] [address]- 7756 Nov, [facility] [place] [facility] [address] [id number] [place] [address]- 3672 Nov, [facility] [place] [facility] [address] [id number] [place] [address]- 3120 Nov, [facility] [place] [facility] [address] [id number] [place] [address]- 5696 Oct, [facility] [place] [facility] [address] [id number] [place] [address]- 8548 Oct, [facility] [place] [facility] [address] [id number] [place] [address]- 5443 Oct, [facility] [place] [facility] [address] [id number] [place] [address]- 1385 Oct, [facility] [place] [facility] [address] [id number] [place] [address]- 0973 Oct, [facility] [place] [facility] [address] [id number] [place] [address]- 1898 16 Oct, 2012 [facility] [place] [facility] [address] [id number] [place] [address]- 6768 14 Oct, 2012 [facility] [place] [facility] [address] [id number] [place] [address]- 3820 13 Oct, 2012 [facility] [place] [facility] [address] [id number] [place] [address]- 4699 Oct, [facility] [place] [facility] [address] [id number] [place] [address]- 7766 07 Oct, 2012 [facility] [place] [facility] [address] [id number] [place] [address] 2548 September, [facility] [address] [id number] [place] [address] 4930 September, [facility] [address] [id number] [place] [address]- 6353 September, [facility] [address] [id number] [place] [address] 1353 Aug, [facility] [place] [facility] [address] [id number] [place] [address]- 7051 Aug, [facility] [address] [id number] [place] [address] 1991 Aug, [facility] [place] [facility] [address] [id number] [place] [address]- 2327 Aug, [facility] [place] [facility] [address] [id number] [place] [address]- 5549 Jul, [facility] [place] [facility] [address] [id number] [place] [address]- 9370 Jul, [facility] [place] [facility] [address] [id number] [place] [address]- 1503 Jul, [facility] [place] [facility] [address] [id number] [place] [address]- 6648 Jul, [facility] [place] [facility] [address] [id number] [place] [address]- 0074 Jul, [facility] [place] [facility] [address] [id number], [place] [address]- 7402 Jul, [facility] [place] [facility] [address] [id number] [place] [address]- 8530 May, [facility] [place] [facility] [address] [id number] [place] [address]- 8674 May, [facility] [place] [facility] [address] [id number] [place] [address]- 3142 May, [facility] [place] [facility] [address] [id number] [place] [address]- 3308 24 May, 2012 [facility] [address] [id number] [place] [address]- 0993 May, [facility] [address] [id number] [place] [address]- 1631 May, [facility] [address] [id number] [place] [address]- 2926 May, [facility] [address] [id number] [place] [address]- 2490 18 May, 2012 [facility] [address] [id number] [place] [address]- 5238 17 May, 2012 [facility] [address] [id number] [place] [address]- 6355 17 May, 2012 [facility] [address] [id number] [place] [address]- 2456 16 May, 2012 [facility] [address] [id number] [place] [address]- 0442 Apr, [facility] [address] [id number] [place] [address]- 7900 Apr, [facility] [address] [id number] [place] [address]- 0725 Apr, [facility] [address] [id number] [place] [address]- 7357 Apr, [facility] [place] [facility] [address] [id number] [place] [address]- 2542 Apr, [facility] [place] [facility] [address] [id number] [place] [address]- 1012 Apr, [facility] [place] [facility] [address] [id number] [place] [address]- 7482 Mar, [facility] [address] [id number] [place] [address]- 3952 Mar, [facility] [place] [facility] [address] [id number] [place] [address]- 6184 Mar, [facility] [place] [facility] [address] [id number] [place] [address]- 9989 Mar, [facility] [place] [facility] [address] [id number] [place] [address]- 7111 Mar, [facility] [place] [facility] [address] [id number] [place] [address]- 1903 Mar, [facility] [place] [facility] [address] [id number] [place] [address]- 3649 Mar, [facility] [place] [facility] [address] [id number] [place] [address]- 5162 Mar, [facility] [place] [facility] [address] [id number] [place] [address]- 8767 Feb, [facility] [place] [facility] [address] [id number] [place] [address]- 9744 Feb, [facility] [place] [facility] [address] [id number] [place] [address]- 8775 16 Feb, 2012 [facility] [place] [facility] [address] [id number] [place] [address]- 1722 15 Feb, 2012 [facility] [place] [facility] [address] [id number] [place] [address]- 4122 15 Feb, 2012 [facility] [place] [facility] [address] [id number] [place] [address]- 8292 13 Feb, 2012 [facility] [place] [facility] [address] [id number] [place] [address]- 8997 12 Feb, 2012 [facility] [place] [facility] [address] [id number] [place] [address]- 8080 Feb, [facility] [place] [facility] [address] [id number] [place] [address]- 6540 12 Feb, 2012 [facility] [place] [facility] [address] [id number], [place] [address]- 8283 Feb, [facility] [place] [facility] [address] [id number] [place] [address]- 9283 Feb, [facility] [place] [facility] [address] [id number] [place] [address] Feb, [facility] [place] [facility] [address] [id number] [place] [address]- 5081 Feb, [facility] [place] [facility] [address] [id number] [place] [address]- 6509 Feb, [facility] [place] [facility] [address] [id number] [place] [address]- 2767 Feb, [facility] [place] [facility] [address] [id number] [place] [address]- 7919 Feb, [facility] [place] [facility] [address] [id number] [place] [address]- 5453 Feb, [facility] [place] [facility] [address] [id number] [place] [address]- 3457 Feb, [facility] [place] [facility] [address] [id number] [place] [address]- 2186 19 Jan, 2012 [facility] [place] [facility] [address] [id number] [place] [address]- 9438 13 Jan, 2012 [facility] [place] [facility] [address] [id number], [place] [address]- 2897 11 Jan, 2012 [facility] [place] [facility] [address] [id number], [place] [address]- 8781 10 Jan, 2012 [facility] [place] [facility] [address] [id number] [place] [address]- 9936 05 Jan, 2012 [facility] [place] [facility] [address] [id number] [place] [address]- 0509 Dec, [facility] [place] [facility] [address] [id number] [place] [address]- 8011 Dec, [facility] [place] [facility] [address] [id number] [place] [address]- 8224 Dec, [facility] [address] [id number] [place] [address]- 2380 Dec, [facility] [address] [id number] [place] [address]- 6096 Dec, [facility] [address] [id number] [place] [address]- 9684 Dec, [facility] [address] [id number] [place] [address]- 0144 Nov, [facility] [address] [id number] [place] [address]- 0985 Nov, [facility] [address] [id number] [place] [address]- 8585 Nov, [facility] [address] [id number] [place] [address]- 3491 Nov, [facility] [address] [id number] [place] [address]- 6977 Nov, [facility] [address] [id number] [place] [address]- 2671 Oct, [facility] [address] [id number] [place] [address]- 9762 Oct, [facility] [place] [facility] [address] [id number] [place] [address]- 6439 Oct, [facility] [address] [id number] [place] [address]- 1622 September, [facility] [place] [facility] [address] [id number] [place] [address]- 7724 September, [facility] [place] [facility] [address] [id number] [place] [address]- 1176 September, [facility] [address] [id number] [place] [address]- 1079 September, [facility] [address] [id number] [place] [address]- 2976 September, [facility] [address] [id number] [place] [address]- 7216 September, [facility] [address] [id number] [place] [address]- 4881 Aug, [facility] [place] [facility] [address] [id number] [place] [address]- 1599 Aug, [facility] [address] [id number] [place] [address]- 3696 Aug, [facility] [place] [facility] [address] [id number] [place] [address]- 8146 Jun, [facility] [address] [id number] [place] [address]- 6636 Jun, [facility] [address] [id number] [place] [address]- 2363 Jun, [facility] [address] [id number] [place] [address]- 0294 Jun, [facility] [address] [id number] [place] [address]- 6763 May, [facility] [address] [id number] [place] [address]- 6066 May, [facility] [place] [facility] [address] [id number][place] [address]- 2238 May, [facility] [place] [facility] [address] [id number] [place] [address]- 1429 May, [facility] [place] [facility] [address] [id number] [place] [address]- 3886 May, [facility] [place] [facility] [address] [id number] [place] [address]- 6616 Apr, [facility] [place] [facility] [address] [id number] [place] [address]- 7165 20 Apr, 2011 [facility] [place] [facility] [address] [id number] [place] [address]- 5080 20 Apr, 2011 [facility] [place] [facility] [address] [id number] [place] [address]- 4928 19 Apr, 2011 [facility] [place] [facility] [address] [id number] [place] [address]- 8207 19 Apr, 2011 [facility] [place] [facility] [address] [id number] [place] [address]- 3717 16 Apr, 2011 [facility] [place] [facility] [address] [id number] [place] [address]- 5373 16 Apr, 2011 [facility] [place] [facility] [address] [id number] [place] [address]- 3943 Mar, [facility] [place] [facility] [address] [id number] [place] [address]- 7353 Mar, [facility] [place] [facility] [address] [id number] [place] [address]- 8620 15 Mar, 2011 [facility] [place] [facility] [address] [id number] [place] [address]- 1617 26 Feb, 2011 [facility] [place] [facility] [address] [id number] [place] [address]- 1253 24 Feb, 2011 [facility] [place] [facility] [address] [id number] [place] [address]- 1168 Feb, [facility] [place] [facility] [address] [id number], [place] [address]- 6000 19 Feb, 2011 [facility] [place] [facility] [address] [id number] [place] [address]- 4914 18 Feb, 2011 [facility] [place] [facility] [address] [id number] [place] [address]- 4076 17 Feb, 2011 [facility] [place] [facility] [address] [id number], [place] [address]- 1960 13 Jan, 2011 [facility] [place] [facility] [address] [id number] [place] [address]- 3305 12 Jan, 2011 [facility] [address] [id number] [place] [address]- 0041 September, [facility] [place] [facility] [address] [id number] [place] [address]- 3716 Jun, [facility] [address] [id number] [place] [address]- 5480 Apr, [facility] [address] [id number] [place] [address]- 5948 Apr, [facility] [place] [facility] [address] [id number] [place] [address]- 7977 Apr, [facility] [address] [id number] [place] [address]- 4116 Apr, [facility] [address] [id number] [place] [address]- 7805 Apr, [facility] [place] [facility] [address] [id number] [place] [address]- 6523 Mar, [facility] [place] [facility] [address] [id number] [place] [address]- 5091 Mar, [facility] [place] [facility] [address] [id number] [place] [address]- 3270 Mar, [facility] [place] [facility] [address] [id number] [place] [address]- 2404 Mar, [facility] [place] [facility] [address] [id number] [place] [address]- 9478 27 Feb, 2010 [facility] [place] [facility] [address] [id number] [place] [address]- 6823 15 Jan, 2010 [facility] [place] [facility] [address] [id number] [place] [address]- 6800 07 Mar, 2009 [facility] [place] [facility] [address] [id number] [place] [address]- 3946 Jan, [facility] [address] [facility] [id number] [place] [address]- 2271 Oct, [facility] [address] [facility] [id number], [place] [address]- 3076 Apr, IMMUNIZATIONS No Known Immunizations SOCIAL HISTORY Never Assessed REASON FOR VISIT painful boil in groin area-awoods PLAN OF CARE Activity Details Follow Up prn Reason:needs to transition care VITAL SIGNS Height 66 in 2017-10-25 Weight 259.9 lbs 2017-10-25 Temperature 98.6 degrees Fahrenheit 2017-10-25 Heart Rate 107 bpm 2017-10-25 Respiratory Rate 20 2017-10-25 BMI 41.94 kg/m2 2017-10-25 Blood pressure systolic 134 mmHg 2017-10-25 Blood pressure diastolic 78 mmHg 2017-10-25 MEDICATIONS Medication Instructions Dosage Frequency Start Date End Date Duration Status Lisinopril 20 MG TAKE ONE TABLET BY MOUTH ONCE DAILY 30 Active Ibuprofen 800 MG Orally Three times a day 1 tablet 8h 30 Active Omeprazole 20 mg Orally Once a day 1 capsule 24h Active Clindamycin HCl 300 MG Orally twice a day 1 capsule 12h 14 Oct, 2017 Oct, 10 days Active Omeprazole 20 MG TAKE ONE CAPSULE BY MOUTH ONCE DAILY 90 Active Flexeril 10 mg Orally 2 times a day s needed 1 tablet Active Actos 30 MG Orally Once a day 1/2 tablet 24h 60 days Active Mupirocin 2 % Externally 2 times a day apply thin layer to wound on groin twice daily 12h 14 Oct, 2017 Oct, 5 day(s) Active RESULTS No Results PROCEDURES No [...]
--- OUTSIDE RECORDS SUMMARY | 2018-03-22 21:45 | XMS REPORT ---
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 Name Role Phone MCLEANJEVON Melendrez Unavailable PROBLEMS Type Condition ICD9-CM Code VFO42-WI Code Onset Dates Condition Status SNOMED Code Problem Bilateral low back pain without sciatica M54.5 Active 867518727 Problem Anxiety F41.9 Active 72961544 Problem Pre-diabetes R73.03 Active 923224741 Problem Essential hypertension I10 Active 31864475 Problem Irritable bowel syndrome without diarrhea K58.9 Active 35477643 Problem Body mass index (BMI) of 40.0-44.9 in adult Z68.41 Active 756045566 Problem Morbid (severe) obesity due to excess calories E66.01 Active 609557204 Problem Pain in right foot M79.671 Active [id number] Problem Pain in left foot M79.672 Active 411791195895429 Problem Rhinosinusitis J32.9 Active 02531015 Problem Alternating constipation and diarrhea R19.8 Active 694369484 ALLERGIES No Information ENCOUNTERS Encounter Location Date Diagnosis [facility] [id number], [place] [address] Jan, [facility] [address], [place] [address] Jan, [facility] [id number], [place] [address] Jan, Dysuria R30.0 ; Acute cystitis with hematuria N30.01 ; Yeast infection B37.9 and BMI 40.0-44.9, adult Z68.41 [facility] [id number] [address] 9[address] Dec, [facility] [id number] [place] [address] 30530- 7904 Dec, [place] [id number] [place] [address] 41972- 3885 Nov, History of UTI Z87.440 [place] [id number] [place] [address] 35776- 8775 Nov, UTI symptoms R39.9 ; Acute nasopharyngitis J00 and BMI 40.0- 44.9, adult Z68.41 [place] [id number] [place] [address] 27249- 4879 Nov, [place] [id number] [place] [address] 16962- 4875 Nov, Yeast infection involving the vagina and surrounding area B37.3 [place] [id number] [place] [address] 86911- 9079 Nov, Yeast infection involving the vagina and surrounding area B37.3 [place] [id number] [place] [address] 56633- 5194 Nov, Yeast infection involving the vagina and surrounding area B37.3 ; Body mass index (BMI) of 40.0-44.9 in adult Z68.41 and Morbid (severe) obesity due to excess calories E66.01 [place] [id number] [place] [address] 69170- 3805 Oct, Abscess of groin, left L02.214 and Pre-diabetes R73.03 [place] [address], [place] [address] 1683 September, Pre-diabetes R73.03 [place] [id number] [place] [address] 83440- 7094 Aug, [place] [id number] [place] [address] 65997- 1091 Jul, Bilateral low back pain without sciatica M54.5 [place] [id number] [place] [address] 86459- 1808 Jun, [facility] [id number] [place] [address] 37292- 0889 Jun, [facility] [id number] [place] [address] 13591- 0855 Jun, [facility] [id number] [place] [address] 60465- 3186 May, [facility] [id number] [place] [address] 64919- 6921 May, Ingrown left greater toenail L60.0 [facility] [address] 47006- 0146 May, [facility] [id number] [place] [address] 01688 -7288 May, Influenza A J10.1 ; Fever R50.9 and Body aches R52 [facility] [id number] [place] [address] 95937- 7055 Apr, [facility] [id number] [place] [address] 06365- 2909 Apr, [facility] [id number] [place] [address] 69444- 8702 Apr, [facility] [id number] [place] [address] 98111- 6535 Apr, Abscess L02.91 and Obesity (BMI 30-39.9) E66.9 [facility] [id number] [place] [address] 57121- 2798 Apr, [facility] [id number] [place] [address] 18089- 4133 Apr, [facility] [id number] [place] [address] 83810- 8234 Mar, Acute non-recurrent maxillary sinusitis J01.00 [facility] [id number] [place] [address] 11521- 3828 Feb, Heartburn R12 [place] [address] 88080- 5146 Feb, Heartburn R12 ; Low back pain M54.5 ; Essential hypertension I10 ; Bilateral low back pain without sciatica M54.5 ; Anxiety F41.9 ; Pre-diabetes R73.03 ; Other obesity due to excess calories E66.09 ; Alternating constipation and diarrhea R19.8 ; Dyspepsia R10.13 ; Generalized abdominal pain R10.84 ; Rhinosinusitis J32.9 and Boil L02.92 [place] [address] 35633- 3616 Jan, Heartburn R12 [place] [address] 64567- 4202 Jan, [place] [address] 89179- 2836 Jan, [place] [address] 72081- 1600 Jan, Acute seasonal allergic rhinitis due to pollen J30.1 and Irritable bowel syndrome without diarrhea K58.9 [place] [id number] [place] [address] 64785- 5939 Dec, Low back pain M54.5 and Acute cystitis with hematuria N30.01 [place] [id number] [place] [address] 84964- 5941 Dec, Low back pain M54.5 and Acute cystitis with hematuria N30.01 [place] [address] 22531- 4753 Dec, Heartburn R12 ; Essential hypertension I10 ; Acute non- recurrent maxillary sinusitis J01.00 ; Bilateral low back pain without sciatica M54.5 ; Anxiety F41.9 ; Pre-diabetes R73.03 ; Pain in right foot M79.671 ; Pain in left foot M79.672 ; Other obesity due to excess calories E66.09 and Acute cystitis with hematuria N30.01 [place] [address] 36827- 1706 Dec, Bilateral low back pain without sciatica M54.5 ; Acute non- recurrent maxillary sinusitis J01.00 and Pre-diabetes R73.03 [place] [address] 77641- 1189 Oct, [facility] [place] [address] 78888 -1164 Aug, [facility] [address] [address] Aug, Acute vaginitis N76.0 ; Urinary frequency R35.0 ; Screen for STD (sexually transmitted disease) Z11.3 and Abscess L02.91 [place] [address] 06120- 1722 Aug, Plantar wart of right foot B07.0 [place] [address] 58201- 2978 Jul, Plantar wart of right foot B07.0 [place] [address] 18722- 8431 Jun, [place] [address] 94000- 9946 Jun, Heartburn R12 ; Essential hypertension I10 ; Anxiety F41.9 ; Folliculitis L73.9 and Plantar wart of right foot B07.0 [place] [address] 66628- 5611 07 Jun, 2016 [facility] [place] [address] 85588 -3626 May, Low back pain M54.5 and Other chronic pain G89.29 [place] [address] 17368- 7751 May, [facility] [address] 22676- 2744 May, [place] [address] 95066- 5707 May, Heartburn R12 ; Bilateral low back pain without sciatica M54.5 ; Essential hypertension I10 ; Long-term use of high-risk medication Z79.899 ; Anxiety F41.9 ; Impacted cerumen of right ear H61.21 ; Folliculitis L73.9 ; High risk bisexual behavior Z72.53 and General medical exam Z00.00 [place] [address] 15612- 8052 May, [place] [address] 80822- 3269 May, [place] [address] 54746- 0844 Mar, Acute nasopharyngitis J00 ; Acute intractable tension-type headache G44.201 and Cough R05 [place] [address] 49131- 5264 Jan, [facility] [address] 53875 -1435 Jan, Abscess L02.91 [facility] [address] 96388 -7704 Jan, Urinary urgency R39.15 and Urinary tract infection without hematuria, site unspecified N39.0 [place] [address] 74646- 7551 Jan, [place] [address] 28196- 6234 Jan, [place] [address] 22252- 0467 Dec, [place] [address], [place] [address]- 2069 Dec, Dermatofibroma D23.9 [facility] [id number] [place] [address] 56266- 4857 September, [facility] [id number] [place] [address] 24616- 0234 Aug, [facility] [id number] [place] [address] 18393- 1713 Aug, Pain in left knee M25.562 ; Heartburn R12 ; Bilateral low back pain without sciatica M54.5 ; Essential hypertension I10 ; Ingrown left big toenail L60.0 ; Chronic pain G89.29 ; Irritable bowel syndrome with constipation K58.9 and Skin infection L08.9 [facility] [id number], [place] [address]- 4655 Aug, [facility] [id number] [place] [address] 85985- 0483 Jul, [facility] [id number] [place] [address] 60059- 2649 Jun, [facility] [id number], [place] [address]- 8687 Jun, [facility] [address], [place] [address]- 9844 Jun, [facility] [id number], [place] [address]- 9857 Jun, [facility] [id number] [place] [address] 07856- 2652 Jun, Upper respiratory infection J06.9 ; Bilateral low back pain without sciatica M54.5 and Headache R51 [facility] [address], [place] [address]- 6566 May, [facility] [id number] [place] [address] 87591- 9172 Apr, Bilateral low back pain without sciatica M54.5 ; Upper respiratory infection J06.9 and Yeast dermatitis B37.2 [facility] [id number] [place] [address] 43352- 9020 Apr, [facility] [id number] [place] [address] 87901- 2512 Apr, [facility] [id number] [place] [address] 54241- 4071 Feb, [facility] [id number] [place] [address] 65920- 8754 Feb, [facility] [id number] [place] [address] 14933- 7228 Feb, [facility] [id number] [place] [address] 73154- 9118 Feb, Essential hypertension I10 ; Heartburn R12 ; Irritable bowel syndrome without diarrhea K58.9 ; Bilateral low back pain, with sciatica presence unspecified M54.5 and Upper respiratory infection J06.9 [place] [id number] [place] [address] 86478- 1969 Feb, [facility] [id number] [place] [address] 85770- 9765 Feb, Generalized anxiety disorder F41.1 and Grief F43.20 [facility] [id number] [place] [address] 82289- 0759 Jan, [facility] [id number] [place] [address] 85065- 9235 Jan, Back pain 724.5 ; Upper respiratory infection 465.9 ; HTN ( hypertension) 401.9 and Dyspepsia 536.8 [facility] [id number] [place] [address] 09353- 9587 Dec, [facility] [id number] [place] [address] 32082- 7855 Nov, Back pain 724.5 ; Abdominal pain, bilateral lower quadrant 789.03 ; GERD (gastroesophageal reflux disease) 530.81 ; Upper respiratory infection 465.9 ; Dysuria 788.1 and HTN (hypertension) 401.9 [facility] [id number] [place] [address] 74167- 9883 Nov, [facility] [address] 41225- 8573 Nov, [facility] [id number] [place] [address] 34637- 0442 Nov, [place] [address] 18526- 2915 Nov, Cough 786.2 [place] [id number] [place] [address] 52100- 9121 Nov, Cough 786.2 [place] [id number] [place] [address] 34796- 0009 Oct, Unspecified episodic mood disorder 296.90 and Anxiety disorder, unspecified 300.00 [place] [id number] [place] [address] 56687- 9518 Oct, Abdominal pain, left upper quadrant 789.02 ; Essential hypertension, benign 401.1 ; Irritable bowel syndrome 564.1 ; Abscess 682.9 ; Heartburn 787.1 ; Acute sinusitis, unspecified 461.9 ; Muscle spasm of back 724.8 ; Cough 786.2 and Skin tag 701.9 [place] [id number] [place] [address] 40783- 0332 September, [place] [id number] [place] [address] 78979- 8460 September, [facility] [id number] [place] [address] 79368- 1284 September, [facility] [address] 49709- 2546 14 Aug, 2014 [facility] [place] [facility] [address] [id number] [place] [address]- 7538 13 Aug, 2014 [facility] [place] [facility] [address] [id number] [place] [address]- 7896 30 Jul, 2014 [facility] [place] [facility] [address] [id number] [place] [address]- 6380 30 Jul, 2014 [facility] [place] [facility] [address] [id number] [place] [address]- 5018 Jul, [facility] [place] [facility] [address] [id number] [place] [address]- 3140 Jul, [facility] [place] [facility] [address] [id number] [place] [address]- 8162 Jul, [facility] [place] [facility] [address] [id number] [place] [address]- 4220 Jul, [facility] [place] [facility] [address] [id number] [place] [address]- 1093 Jul, [facility] [place] [facility] [address] [id number] [place] [address]- 3306 Jul, [facility] [place] [facility] [address] [id number] [place] [address]- 1629 Jul, [facility] [place] [facility] [address] [id number] [place] [address]- 3230 Jul, [facility] [place] [facility] [address] [id number] [place] [address]- 5824 Jul, [facility] [place] [facility] [address] [id number] [place] [address]- 9295 Jul, [facility] [place] [facility] [address] [id number] [place] [address]- 0212 Jul, [facility] [place] [facility] [address] [id number] [place] [address]- 1455 Jul, [facility] [place] [facility] [address] [id number] [place] [address]- 8117 Jul, 2014 [facility] [place] [facility] [address] [id number] [place] [address]- 3365 Jul, 2014 [facility] [place] [facility] [address] [id number] [place] [address]- 3438 Jul, 2014 [facility] [place] [facility] [address] [id number] [place] [address]- 5635 Jun, 2014 [facility] [place] [facility] [address] [id number] [place] [address]- 8120 Jun, 2014 [facility] [place] [facility] [address] [id number] [place] [address]- 7582 Jun, 2014 [facility] [place] [facility] [address] [facility] [id number] [place] [address]- 3222 Jun, 2014 [facility] [place] [facility] [address] [facility] [id number] [place] [address]- 0184 Jun, 2014 [facility] [place] [facility] [address] [id number] [place] [address]- 7158 Jun, 2014 [facility] [place] [facility] [address] [facility] [id number] [place] [address]- 8460 Jun, 2014 [facility] [place] [facility] [address] [facility] [id number] [place] [address]- 2737 Jun, 2014 [facility] [place] [facility] [address] [id number] [place] [address]- 8288 Apr, [facility] [place] [facility] [address] [id number] [place] [address]- 5767 Apr, [facility] [place] [facility] [address] [id number] [place] [address]- 2738 Apr, [facility] [place] [facility] [address] [id number] [place] [address]- 4178 Apr, [facility] [place] [facility] [address] [facility] [id number] [place] [address]- 7058 Apr, [facility] [place] [facility] [address] [id number] [place] [address]- 1461 18 Apr, 2014 [facility] [place] [facility] [address] [id number] [place] 3433 Apr, [facility] [place] [facility] [address] [id number] [place] [address]- 5535 Apr, [facility] [place] [facility] [address] [id number] [place] [address]- 1359 Apr, [facility] [place] [facility] [address] [id number] [place] [address]- 9489 Apr, [facility] [place] [facility] [address] [id number] [place] [address]- 4632 Apr, [facility] [place] [facility] [address] [id number] [place] [address]- 7122 Apr, [facility] [place] [facility] [address] [id number] [place] [address]- 3047 Apr, [facility] [place] [facility] [address] [id number] [place] [address]- 9809 Apr, [facility] [place] [facility] [address] [id number] [place] [address]- 5535 Apr, [facility] [place] [facility] [address] [id number] [place] [address]- 0022 Feb, [facility] [place] [facility] [address] [id number] [place] [address]- 2744 Feb, [facility] [place] [facility] [address] [id number] [place] 9868 Feb, [facility] [place] [facility] [address] [id number] [place] [address]- 2047 Feb, [facility] [place] [facility] [address] [id number] [place] 9262 Feb, [facility] [place] [facility] [address] [id number] [place] [address]- 7100 Feb, [facility] [place] [facility] [address] [id number] [place] [address]- 7927 Jan, 2013 [facility] [place] [facility] [address] [id number] [place] [address]- 7676 Jan, 2013 [facility] [place] [facility] [address] [id number] [place] [address]- 1756 Jan, 2013 [facility] [place] [facility] [address] [id number] [place] [address]- 6147 Jan, 2013 [facility] [place] [facility] [address] [id number] [place] [address]- 5408 Jan, 2013 [facility] [place] [facility] [address] [id number] [place] [address]- 2787 Jan, 2013 [facility] [place] [facility] [address] [id number] [place] [address]- 2629 Dec, [facility] [place] [facility] [address] [id number] [place] [address]- 0386 Dec, [facility] [place] [facility] [address] [id number] [place] [address]- 1209 Dec, [facility] [place] [facility] [address] [id number] [place] [address]- 9335 Dec, [facility] [place] [facility] [address] [id number] [place] [address]- 0220 Nov, [facility] [place] [facility] [address] [id number] [place] [address]- 0683 Nov, [facility] [place] [facility] [address] [id number] [place] [address]- 4007 Nov, [facility] [place] [facility] [address] [id number] [place] [address]- 1315 Nov, [facility] [place] [facility] [address] [id number] [place] [address]- 8815 Nov, [facility] [place] [facility] [address] [id number] [place] [address]- 6308 Nov, [facility] [place] [facility] [address] [id number] [place] [address]- 8515 Nov, [facility] [place] [facility] [address] [id number] [place] [address]- 9699 Nov, [facility] [place] [facility] [address] [id number] [place] [address]- 8020 Oct, [facility] [place] [facility] [address] [id number] [place] [address]- 3659 Oct, [facility] [place] [facility] [address] [id number] [place] [address]- 2344 Oct, [facility] [place] [facility] [address] [id number] [place] [address]- 3841 Oct, [facility] [place] [facility] [address] [id number] [place] [address]- 5312 Oct, [facility] [place] [facility] [address] [id number] [place] [address]- 3494 Oct, [facility] [place] [facility] [address] [id number] [place] [address]- 1057 Oct, [facility] [place] [facility] [address] [id number] [place] [address] Oct, [facility] [place] [facility] [address] [id number][place] [address] Oct, [facility] [place] [facility] [address] [id number] [place] [address] Oct, [facility] [place] [facility] [address] [id number] [place] [address] Oct, [facility] [place] [facility] [address] [id number] [place] [address] Oct, [facility] [place] [facility] [address] [id number], [place] [address] 18 Oct, 2013 [facility] [place] [facility] [address] [id number] [place] [address] 18 Oct, 2013 [facility] [place] [facility] [address] [id number] [place] [address] 17 Oct, 2013 [facility] [place] [facility] [address] [id number] [place] [address] 17 Oct, 2013 [facility] [place] [facility] [address] [id number] [place] [address] 16 Oct, 2013 [facility] [place] [facility] [address] [id number] [place] [address] 16 Oct, 2013 [facility] [place] [facility] [address] [id number] [place] [address] Oct, [facility] [place] [facility] [address] [id number][place] [address] Oct, [facility] [place] [facility] [address] [id number] [place] [address] Oct, [facility] [place] [facility] [address] [id number] [place] [address] Oct, [facility] [place] [facility] [address] [facility] [id number], [place] [address] Oct, [facility] [place] [facility] [address] [id number], [place] [address] Oct, [facility] [place] [facility] [address] [id number][place] [address] Oct, [facility] [place] [facility] [address] [id number], [place] [address] Oct, [facility] [place] [facility] [address] [id number], [place] [address] Oct, [facility] [place] [facility] [address] [facility] [id number], [place] [address] Oct, [facility] [place] [facility] [address] [id number] [place] [address] Oct, [facility] [place] [facility] [address] [id number] [place] [address] [address] Oct, [facility] [place] [facility] [address] [id number] [place] [address] September, [facility] [place] [facility] [address] [id number] [place] [address] September, [facility] [place] [facility] [address] [id number] [place] [address] September, [facility] [place] [facility] [address] [id number] [place] [address] September, [facility] [place] [facility] [address] [id number] [place] [address] September, [facility] [place] [facility] [address] [id number] [place] [address] September, [facility] [place] [facility] [address] [id number] [place] [address] September, [facility] [place] [facility] [address] [id number] [place] [address] September, [facility] [place] [facility] [address] [id number] [place] [address] September, [facility] [place] [facility] [address] [id number] [place] [address] September, [facility] [place] [facility] [address] [id number] [place] [address] September, [facility] [place] [facility] [address] [id number] [place] [address] September, [facility] [place] [facility] [address] [id number] [place] [address] September, [facility] [place] [facility] [address] [id number] [place] [address] September, [facility] [place] [facility] [address] [id number] [place] [address] 2411 September, [facility] [place] [facility] [address] [id number] [place] [address] 9364 September, [facility] [place] [facility] [address] [id number] [place] [address] 5878 September, [facility] [place] [facility] [address] [id number] [place] [address] 3364 September, [facility] [place] [facility] [address] [id number] [place] [address] 5067 Aug, [facility] [place] [facility] [address] [id number] [place] [address] 9854 Aug, [facility] [place] [facility] [address] [id number] [place] [address]321 Aug, [facility] [place] [facility] [address] [id number] [place] [address] 1568 Aug, [facility] [place] [facility] [address] [id number] [place] [address] 65[address] Aug, [facility] [place] [facility] [address] [id number] [place] [address]- 5958 Aug, [facility] [place] [facility] [address] [id number] [place] [address]- 5365 Jul, [facility] [place] [facility] [address] [id number], [place] [address] Jul, [facility] [place] [facility] [address] [id number] [place] [address] 9721 Jul, [facility] [place] [facility] [address] [id number] [place] [address] 3299 Jul, [facility] [place] [facility] [address] [id number] [place] [address]- 0452 Jun, [facility] [place] [facility] [address] [id number] [place] [address] 4136 18 Jun, 2013 [facility] [address] [id number] [place] [address]- 8466 18 Jun, 2013 [facility] [place] [facility] [address] [id number] [place] [address]- 7912 18 Jun, 2013 [facility] [address] [id number] [place] [address] 1908 14 Mar, 2013 [facility] [place] [facility] [address] [id number] [place] [address]- 7103 14 Mar, 2013 [facility] [address] [id number] [place] [address]- 0425 Mar, [facility] [place] [facility] [address] [id number] [place] [address]- 1370 Mar, [facility] [place] [facility] [address] [id number] [place] [address]- 0429 Feb, [facility] [place] [facility] [address] [id number] [place] [address]- 2694 Feb, [facility] [place] [facility] [address] [id number] [place] [address]- 0897 Feb, [facility] [place] [facility] [address] [id number] [place] [address] 3917 Jan, [facility] [place] [facility] [address] [id number] [place] [address]- 2544 20 Jan, 2013 [facility] [place] [facility] [address] [id number] [place] [address]- 1293 12 Jan, 2013 [facility] [place] [facility] [address] [id number] [place] [address]- 2193 05 Jan, 2013 [facility] [place] [facility] [address] [id number] [place] [address]- 8520 Dec, [facility] [place] [facility] [address] [id number] [place] [address]- 7729 Dec, [facility] [place] [facility] [address] [id number] [place] [address]- 6731 Dec, [facility] [place] [facility] [address] [id number] [place] [address]- 7279 Dec, [facility] [place] [facility] [address] [id number] [place] [address]- 3590 Nov, [facility] [place] [facility] [address] [id number] [place] [address]- 1512 Nov, [facility] [place] [facility] [address] [id number] [place] [address]- 9285 Nov, [facility] [place] [facility] [address] [id number] [place] [address]- 9356 Nov, [facility] [place] [facility] [address] [id number] [place] [address]- 3551 Nov, [facility] [place] [facility] [address] [id number] [place] [address]- 4039 Nov, [facility] [place] [facility] [address] [id number] [place] [address]- 5385 Oct, [facility] [place] [facility] [address] [id number] [place] [address]- 4537 Oct, [facility] [place] [facility] [address] [id number] [place] [address]- 9980 Oct, [facility] [place] [facility] [address] [id number], [place] [address] 9054 Oct, [facility] [place] [facility] [address] [id number] [place] [address]- 6453 Oct, [facility] [place] [facility] [address] [id number] [place] [address]- 6924 Oct, [facility] [place] [facility] [address] [id number] [place] [address]- 2597 Oct, [facility] [place] [facility] [address] [id number], [place] [address]- 7731 Oct, [facility] [address] [id number] [place] [address]- 5826 Oct, [facility] [address] [id number] [place] [address]- 1740 Oct, [facility] [address] [id number] [place] [address]- 0488 September, [facility] [address] [id number] [place] [address]- 3201 September, [facility] [address] [id number] [place] [address]- 0720 September, [facility] [address] [id number] [place] [address]- 3031 Aug, [facility] [address] [id number] [place] [address]- 0974 Aug, [facility] [address] [id number] [place] [address]- 0321 Aug, [facility] [address] [id number] [place] [address]- 3636 Aug, [facility] [address] [facility] [id number] [place] [address]- 3731 Jul, [facility] [address] [id number] [place] [address]- 6271 Jul, [facility] [place] [facility] [address] [id number] [place] [address]- 9304 Jul, [facility] [place] [facility] [address] [id number] [place] [address]- 1270 Jul, [facility] [place] [facility] [address] [id number] [place] [address]- 2085 Jul, [facility] [address] [facility] [id number] [place] [address]- 1198 Jul, [facility] [place] [facility] [address] [id number] [place] [address]- 1988 31 May, 2012 [facility] [address] [id number] [place] [address]- 1155 29 May, 2012 [facility] [place] [facility] [address] [id number] [place] [address]- 2660 May, [facility] [address] [id number] [place] [address]- 3684 May, [facility] [place] [facility] [address] [id number] [place] [address]- 6887 May, [facility] [place] [facility] [address] [id number] [place] [address]- 6496 May, [facility] [place] [facility] [address] [id number] [place] [address]- 0993 May, [facility] [address] [id number] [place] [address]- 6447 18 May, 2012 [facility] [address] [id number] [place] [address]- 0303 17 May, 2012 [facility] [address] [id number] [place] [address]- 8578 17 May, 2012 [facility] [address] [id number] [place] [address]- 6280 16 May, 2012 [facility] [address] [id number] [place] [address]- 4719 Apr, [facility] [place] [facility] [address] [id number] [place] [address]- 9215 Apr, [facility] [place] [facility] [address] [id number] [place] [address]- 6197 Apr, [facility] [place] [facility] [address] [id number] [place] [address]- 7520 Apr, [facility] [place] [facility] [address] [id number] [place] [address]- 4372 Apr, [facility] [place] [facility] [address] [id number] [place] [address]- 0821 Apr, [facility] [place] [facility] [address] [id number] [place] [address]- 8551 Mar, [facility] [place] [facility] [address] [facility] [id number] [place] [address]- 6095 Mar, [facility] [place] [facility] [address] [id number], [place] [address]- 0630 Mar, [facility] [place] [facility] [address] [id number] [place] [address]- 0055 Mar, [facility] [place] [facility] [address] [id number] [place] [address]- 9749 Mar, [facility] [place] [facility] [address] [facility] [id number] [place] [address]- 9593 Mar, [facility] [place] [facility] [address] [id number], [place] [address]- 3448 Mar, [facility] [place] [facility] [address] [id number], [place] [address]- 9165 Mar, [facility] [place] [facility] [address] [facility] [id number], [place] [address]- 5218 Feb, [facility] [place] [facility] [address] [id number], [place] [address]- 6067 Feb, [facility] [place] [facility] [address] [id number], [place] [address]- 2563 16 Feb, 2012 [facility] [place] [facility] [address] [id number], [place] [address]- 6910 15 Feb, 2012 [facility] [place] [facility] [address] [facility] [id number], [place] [address]- 7835 15 Feb, 2012 [facility] [place] [facility] [address] [facility] [id number], [place] [address]- 9391 13 Feb, 2012 [facility] [place] [facility] [address] [id number] [place] [address]- 2520 12 Feb, 2012 [facility] [place] [facility] [address] [id number] [place] [address]- 4555 Feb, [facility] [place] [facility] [address] [id number] [place] [address]- 0749 Feb, [facility] [place] [facility] [address] [id number] [place] [address]- 8955 Feb, [facility] [place] [facility] [address] [id number] [place] [address]- 4361 Feb, [facility] [place] [facility] [address] [id number] [place] [address]- 6132 Feb, [facility] [place] [facility] [address] [id number] [place] [address]- 5444 Feb, [facility] [place] [facility] [address] [id number] [place] [address]- 8641 Feb, [facility] [place] [facility] [address] [id number] [place] [address]- 3373 Feb, [facility] [place] [facility] [address] [id number] [place] [address]- 7465 Feb, [facility] [place] [facility] [address] [facility] [id number] [place] [address]- 5183 Feb, [facility] [place] [facility] [address] [id number] [place] [address]- 0079 04 Feb, 2012 [facility] [place] [facility] [address] [id number], [place] [address]- 1312 19 Jan, 2012 [facility] [place] [facility] [address] [id number] [place] [address]- 3662 13 Sep2011 [facility] [place] [facility] [address] [id number] [place] [address]- 1582 11 Jan, 2012 [facility] [place] [facility] [address] [id number] [place] [address]- 1372 10 Jan, 2012 [facility] [place] [facility] [address] [id number] [place] [address]- 7902 Jan, [facility] [place] [facility] [address] [id number] [place] [address]- 2369 Dec, [facility] [place] [facility] [address] [id number] [place] [address]- 4571 Dec, [facility] [place] [facility] [address] [id number] [place] [address]- 7701 Dec, [facility] [place] [facility] [address] [id number] [place] [address]- 3589 Dec, [facility] [place] [facility] [address] [id number] [place] [address]- 8676 Dec, [facility] [place] [facility] [address] [id number] [place] [address]- 1623 Dec, [facility] [place] [facility] [address] [id number] [place] [address]- 6886 Nov, [facility] [place] [facility] [address] [id number] [place] [address]- 6274 Nov, [facility] [place] [facility] [address] [id number] [place] [address]- 3038 Nov, [facility] [place] [facility] [address] [id number] [place] [address]- 3381 Nov, [facility] [place] [facility] [address] [id number] [place] [address]- 8904 Nov, [facility] [place] [facility] [address] [id number] [place] [address]- 1639 Oct, [facility] [place] [facility] [address] [id number] [place] [address]- 8774 Oct, [facility] [place] [facility] [address] [id number] [place] [address]- 8829 Oct, [facility] [place] [facility] [address] [id number] [place] [address]- 9777 September, [facility] [address] [id number] [place] [address]- 5963 September, [facility] [place] [facility] [address] [id number] [place] September, [facility] [place] [facility] [address] [id number] [place] [address]- 4496 September, [facility] [place] [facility] [address] [id number] [place] [address]- 6119 September, [facility] [place] [facility] [address] [id number] [place] [address]- 8758 September, [facility] [address] [id number] [place] [address]- 5564 Aug, [facility] [address] [id number] [place] [address]- 2119 Aug, [facility] [place] [facility] [address] [id number] [place] [address]- 5377 Aug, [facility] [place] [facility] [address] [id number] [place] [address]- 1407 Jun, [facility] [place] [facility] [address] [id number] [place] [address]- 0014 Jun, [facility] [address] [id number] [place] [address]- 7893 Jun, [facility] [place] [facility] [address] [id number] [place] [address]- 2943 Jun, [facility] [place] [facility] [address] [id number] [place] [address]- 2277 May, [facility] [place] [facility] [address] [id number] [place] [address]- 9497 May, [facility] [place] [facility] [address] [id number] [place] [address]- 7216 May, [facility] [place] [facility] [address] [id number] [place] [address]- 3539 May, [facility] [place] [facility] [address] [id number] [place]265 May, [facility] [place] [facility] [address] [id number] [place] [address]- 5804 Apr, [facility] [place] [facility] [address] [id number] [place] [address]- 8476 Apr, [facility] [place] [facility] [address] [id number] [place] [address]- 5751 Apr, [facility] [place] [facility] [address] [id number] [place] [address]- 3531 Apr, [facility] [place] [facility] [address] [id number] [place] [address]- 2450 Apr, [facility] [place] [facility] [address] [id number] [place] [address]- 9463 Apr, [facility] [place] [facility] [address] [id number] [place] [address]- 3751 Apr, [facility] [place] [facility] [address] [id number] [place] [address]- 1793 Mar, [facility] [place] [facility] [address] [id number] [place] [address]- 8164 Mar, [facility] [place] [facility] [address] [id number] [place] [address]- 1120 Mar, [facility] [place] [facility] [address] [id number] [place] [address]- 2911 Feb, [facility] [place] [facility] [address] [id number] [place] [address]- 3594 Feb, [facility] [place] [facility] [address] [id number] [place] [address]- 0309 Feb, [facility] [place] [facility] [address] [id number] [place] [address]- 5363 Feb, [facility] [place] [facility] [address] [id number] [place] [address]- 9459 Feb, [facility] [place] [facility] [address] [id number] [place] [address]- 9636 17 Feb, 2011 [facility] [place] [facility] [address] [id number] [place] [address] 2546 13 Jan, 2011 [facility] [place] [facility] [address] [id number] [place] [address]- 4096 Jan, [facility] [place] [facility] [address] [id number] [place] [address]- 5086 September, [facility] [place] [facility] [address] [id number] [place] [address]- 3526 Jun, [facility] [place] [facility] [address] [id number] [place] [address]- 4048 Apr, [facility] [place] [facility] [address] [id number] [place] [address]- 0757 Apr, [facility] [place] [facility] [address] [id number] [place] [address]- 4077 Apr, [facility] [place] [facility] [address] [id number] [place] [address]- 7349 Apr, [facility] [place] [facility] [address] [id number] [place] [address]- 8325 Apr, [facility] [place] [facility] [address] [id number], [place] [address] 2548 Mar, [facility] [place] [facility] [address] [id number] [place] [address] 2546 Mar, [facility] [place] [facility] [address] [id number] [place] [address]- 6678 Mar, [facility] [place] [facility] [address] [id number] [place] [address] 2546 Mar, [facility] [place] [facility] [address] [facility] [id number] [place] [address]- 1616 Feb, [facility] [address] [facility] [id number], [place] [address]- 5098 Jan, [facility] [address] [facility] [id number], [place] [address]- 3096 Mar, [facility] [address] [facility] [id number], [place] [address]- 9772 Jan, [facility] [address] [facility] [id number], [place] [address]- 8924 Oct, [facility] [address] [facility] [id number][place] 1267 Apr, IMMUNIZATIONS No Known Immunizations SOCIAL HISTORY Never Assessed REASON FOR VISIT Refill request PLAN OF CARE VITAL SIGNS MEDICATIONS Medication Instructions Dosage Frequency Start Date End Date Duration Status Diflucan 150 MG Orally one time 1 tablet Nov, 10 day(s) Active RESULTS No Results PROCEDURES No [...]
--- OUTSIDE RECORDS SUMMARY | 2018-03-22 21:46 | XMS REPORT ---
Author Author BRITANY BOSCH [facility] Address [address] [place] [address] Care Team Providers Care Revolving Inventory Clerk Name Role Phone BRITANY BOSCH Unavailable PROBLEMS Type Condition ICD9-CM Code XWI00-MG Code Onset Dates Condition Status SNOMED Code Problem Bilateral low back pain without sciatica M54.5 Active 338611504 Problem Anxiety F41.9 Active 95743680 Problem Pre-diabetes R73.03 Active 553710580 Problem Essential hypertension I10 Active 84591804 Problem Irritable bowel syndrome without diarrhea K58.9 Active 28487125 Problem Body mass index (BMI) of 40.0-44.9 in adult Z68.41 Active 634631771 Problem Morbid (severe) obesity due to excess calories E66.01 Active 903101318 Problem Pain in right foot M79.671 Active 66025231818597886 Problem Pain in left foot M79.672 Active 408892821932982 Problem Rhinosinusitis J32.9 Active 34976330 Problem Alternating constipation and diarrhea R19.8 Active 299306034 ALLERGIES No Information ENCOUNTERS Encounter Location Date Diagnosis [place] [address] [address] Dec, [facility] [id number] [place] [address] 48703- 7327 Dec, [facility] [address] [place] [id number] [place] [address] 38958- 6373 Nov, History of UTI Z87.440 [place] [id number] [place] [address] 59692- 3562 Nov, UTI symptoms R39.9 ; Acute nasopharyngitis J00 and BMI 40.0- 44.9, adult Z68.41 [place] [address] [place] [id number] [place] [address] 02488- 6827 Nov, [facility] [address] [place] [address] [id number] [place] [address] 73945- 3921 Nov, Yeast infection involving the vagina and surrounding area B37.3 [facility] [address] [id number] [place] [address] 80424- 8205 Nov, Yeast infection involving the vagina and surrounding area B37.3 [facility] [address] [place] [id number] [place] [address] 29960- 0027 Nov, Yeast infection involving the vagina and surrounding area B37.3 ; Body mass index (BMI) of 40.0-44.9 in adult Z68.41 and Morbid (severe) obesity due to excess calories E66.01 [facility] [address] [place] [id number] [place] [address] 03165- 7640 Oct, Abscess of groin, left L02.214 and Pre-diabetes R73.03 [facility] [address] [place] [id number] [place] [address] 86110- 9239 September, Pre-diabetes R73.03 [facility] [address] [place] [id number] [place] [address] 30098- 0882 Aug, [facility] [address] [place] [id number] [place] [address] 56616- 6203 Jul, Bilateral low back pain without sciatica M54.5 [facility] [address] [id number] [place] [address] 54545- 8697 Jun, [facility] [address] [place] [id number] [place] [address] 62037- 7286 Jun, [facility] [address] [address] [id number] [place] [address] 04995- 9872 Jun, [facility] [address] [place] [address] [id number] [place] [address] 58331- 0113 May, [facility] [address] [place] [address] [id number] [place] [address] 12079- 0107 May, Ingrown left greater toenail L60.0 [place] [address] [place] [id number] [place] [address] 82002- 0742 May, [facility] [address] [address]297 -7908 May, Influenza A J10.1 ; Fever R50.9 and Body aches R52 [place] [address] 50024- 7708 Apr, [facility] [address] 48482- 9388 Apr, [place] [address] 98941- 5180 Apr, [place] [address] 83983- 9588 Apr, Abscess L02.91 and Obesity (BMI 30-39.9) E66.9 [place] [address] 68528- 1159 Apr, [place] [address] 33834- 4646 Apr, [place] [address] [place] [id number] [place] [address] 37218- 6656 Mar, Acute non-recurrent maxillary sinusitis J01.00 [place] [address] [place] [id number] [place] [address] 69100- 3471 Feb, Heartburn R12 [place] [address] 13705- 3441 Feb, Heartburn R12 ; Low back pain M54.5 ; Essential hypertension I10 ; Bilateral low back pain without sciatica M54.5 ; Anxiety F41.9 ; Pre-diabetes R73.03 ; Other obesity due to excess calories E66.09 ; Alternating constipation and diarrhea R19.8 ; Dyspepsia R10.13 ; Generalized abdominal pain R10.84 ; Rhinosinusitis J32.9 and Boil L02.92 [place] [address] [place] [address] 31657- 4871 Jan, Heartburn R12 [place] [address] [place] [id number] [place] [address] 62541- 2377 Jan, [place] [address] [place] [id number] [place] [address] 92906- 5397 Jan, [place] [address] [place] [id number] [place] [address] 20683- 9091 Jan, Acute seasonal allergic rhinitis due to pollen J30.1 and Irritable bowel syndrome without diarrhea K58.9 [place] [address] [place] [id number] [place] [address] 33388- 8802 Dec, Low back pain M54.5 and Acute cystitis with hematuria N30.01 [place] [address] [place] [id number] [place] [address] 49751- 6691 Dec, Low back pain M54.5 and Acute cystitis with hematuria N30.01 [place] [address] [place] [id number] [place] [address] 05188- 6874 Dec, Heartburn R12 ; Essential hypertension I10 ; Acute non- recurrent maxillary sinusitis J01.00 ; Bilateral low back pain without sciatica M54.5 ; Anxiety F41.9 ; Pre-diabetes R73.03 ; Pain in right foot M79.671 ; Pain in left foot M79.672 ; Other obesity due to excess calories E66.09 and Acute cystitis with hematuria N30.01 [place] [address] [place] [address] 04617- 2477 Dec, Bilateral low back pain without sciatica M54.5 ; Acute non- recurrent maxillary sinusitis J01.00 and Pre-diabetes R73.03 [place] [address] [address]- 7771 Oct, [facility] [address] [place] [id number] [place] [address] 79785 -0614 Aug, [facility] [place] [address] 51942 -3422 Aug, Acute vaginitis N76.0 ; Urinary frequency R35.0 ; Screen for STD (sexually transmitted disease) Z11.3 and Abscess L02.91 [place] [address] 75772- 6427 Aug, Plantar wart of right foot B07.0 [place] [address] 45426- 7293 Jul, Plantar wart of right foot B07.0 [place] [address] 04796- 2674 Jun, [place] [address] 81007- 6052 Jun, Heartburn R12 ; Essential hypertension I10 ; Anxiety F41.9 ; Folliculitis L73.9 and Plantar wart of right foot B07.0 [place] [address] 90139- 2220 Jun, [facility] [place] [address] [place] [id number] [place] [address] 81403 -0352 May, Low back pain M54.5 and Other chronic pain G89.29 [place] [address] 32010- 3836 May, [place] [address] 28930- 7789 May, [place] [address] 11425- 7025 May, Heartburn R12 ; Bilateral low back pain without sciatica M54.5 ; Essential hypertension I10 ; Long-term use of high-risk medication Z79.899 ; Anxiety F41.9 ; Impacted cerumen of right ear H61.21 ; Folliculitis L73.9 ; High risk bisexual behavior Z72.53 and General medical exam Z00.00 [facility] [address] 97694- 4685 May, [facility] [address] 03682- 2785 May, [facility] [address] 55036- 7775 Mar, Acute nasopharyngitis J00 ; Acute intractable tension-type headache G44.201 and Cough R05 [place] [address] 61823- 6688 Jan, [facility] [address] 41389 -4769 Jan, Abscess L02.91 [facility] [address] 69530 -9371 Jan, Urinary urgency R39.15 and Urinary tract infection without hematuria, site unspecified N39.0 [place] [address] 26115- 6488 Jan, [facility] [address] 58967- 1598 Jan, [place] [address] 75003- 6007 Dec, [facility] [address] 85323- 7632 Dec, Dermatofibroma D23.9 [place] [address] 43627- 6323 September, [facility] [address] 30138- 2474 Aug, [place] [address] 33328- 5308 Aug, Pain in left knee M25.562 ; Heartburn R12 ; Bilateral low back pain without sciatica M54.5 ; Essential hypertension I10 ; Ingrown left big toenail L60.0 ; Chronic pain G89.29 ; Irritable bowel syndrome with constipation K58.9 and Skin infection L08.9 [facility] [address] [place] [id number] [place] [address] 39016- 8375 Aug, [facility] [address] 19176- 5236 Jul, [facility] [address] [place] [id number] [place] [address] 90478- 9284 Jun, [facility] [address] 47977- 1947 Jun, [facility] [address] [place] [id number] [place] [address] 63481- 2312 Jun, [facility] [address] [place] [id number] [place] [address] 59321- 5096 Jun, [facility] [address] [place] [id number] [place] [address] 67554- 7287 Jun, Upper respiratory infection J06.9 ; Bilateral low back pain without sciatica M54.5 and Headache R51 [facility] [address] [place] [id number] [place] [address] 13063- 1679 May, [facility] [address] [place] [id number] [place] [address] 05000- 6896 Apr, Bilateral low back pain without sciatica M54.5 ; Upper respiratory infection J06.9 and Yeast dermatitis B37.2 [facility] [address] [place] [id number] [place] [address] 45832- 2667 Apr, [facility] [address] [place] [id number] [place] [address] 41362- 1037 Apr, [facility] [address] [place] [id number] [place] [address] 63264- 8771 Feb, [facility] [address] [place] [id number] [place] [address] 57190- 6391 Feb, [facility] [address] [place] [id number] [place] [address] 63148- 5294 Feb, [facility] [address] [place] [id number] [place] [address] 89271- 5867 Feb, Essential hypertension I10 ; Heartburn R12 ; Irritable bowel syndrome without diarrhea K58.9 ; Bilateral low back pain, with sciatica presence unspecified M54.5 and Upper respiratory infection J06.9 [place] [address] [place] [id number] [place] [address] 08545- 9962 Feb, [place] [address] [place] [id number] [place] [address] 92153- 5382 Feb, Generalized anxiety disorder F41.1 and Grief F43.20 [place] [id number] [place] [address] 63121- 0200 Jan, [place] [address] [place] [id number] [place] [address] 31912- 9287 Jan, Back pain 724.5 ; Upper respiratory infection 465.9 ; HTN ( hypertension) 401.9 and Dyspepsia 536.8 [place] [address] [place] [id number] [place] [address] 29003- 2384 Dec, [place] [address] [place] [id number] [place] [address] 41924- 0231 Nov, Back pain 724.5 ; Abdominal pain, bilateral lower quadrant 789.03 ; GERD (gastroesophageal reflux disease) 530.81 ; Upper respiratory infection 465.9 ; Dysuria 788.1 and HTN (hypertension) 401.9 [place] [address] [place] [id number] [place] [address] 36894- 2252 Nov, [place] [address] [place] [id number] [place] [address] 13770- 6992 Nov, [place] [address] [address]- 2185 Nov, [facility] [address] [place] [id number] [place] [address] 997911- 8257 Nov, Cough 786.2 [facility] [address] [place] [id number] [place] [address] 30065- 9672 Nov, Cough 786.2 [facility] [address] [place] [id number] [place] [address] 05716- 4845 Oct, Unspecified episodic mood disorder 296.90 and Anxiety disorder, unspecified 300.00 [facility] [address] [place] [id number] [place] [address] 723413- 6650 Oct, Abdominal pain, left upper quadrant 789.02 ; Essential hypertension, benign 401.1 ; Irritable bowel syndrome 564.1 ; Abscess 682.9 ; Heartburn 787.1 ; Acute sinusitis, unspecified 461.9 ; Muscle spasm of back 724.8 ; Cough 786.2 and Skin tag 701.9 [facility] [address] [place] [address] 59162- 7749 September, [facility] [address] [place] [id number] [place] [address] 84045- 0544 September, [facility] [address] [place] [address] 51799- 6682 September, [facility] [address] [place] [address] 82724- 8149 Aug, [facility] [address] [place] [address] 79823- 3595 Aug, [facility] [address] [place] [id number] [place] [address] 996789- 3610 Jul, [facility] [address] 4341 Jul, [facility] [address] [place] [id number] [place] [address] 60314768- 6319 Jul, [facility] [place] [facility] [address] [id number] [place] [address]- 3747 Jul, [facility] [place] [facility] [address] [id number] [place] [address]- 0522 Jul, [facility] [place] [facility] [address] [id number] [place] [address]- 4953 Jul, [facility] [place] [facility] [address] [id number] [place] [address]- 9908 Jul, [facility] [place] [facility] [address] [id number] [place] [address]- 9496 Jul, [facility] [place] [facility] [address] [id number] [place] [address]- 8659 Jul, [facility] [place] [facility] [address] [id number] [place] [address]- 3710 Jul, [facility] [place] [facility] [address] [id number] [place] [address]- 0914 Jul, [facility] [place] [facility] [address] [id number] [place] [address]- 3522 Jul, [facility] [place] [facility] [address] [id number] [place] [address]- 2336 Jul, [facility] [place] [facility] [address] [id number] [place] [address]- 9295 Jul, [facility] [place] [facility] [address] [id number] [address]- 5074 Jul, [facility] [place] [facility] [address] [id number] [place] [address]- 5579 Jul, [facility] [place] [facility] [address] [id number] [place] [address]- 7967 Jul, [facility] [place] [facility] [address] [id number] [place] [address]- 7234 Jun, [facility] [place] [facility] [address] [id number] [place] [address]- 7756 27 Jun, 2014 [facility] [place] [facility] [address] [id number] [place] [address] 2546 Jun, 2014 [facility] [place] [facility] [address] [id number] [place] [address] 2546 20 Jun, 2014 [facility] [place] [facility] [address] [id number] [place] [address] 2546 Jun, 2014 [facility] [place] [facility] [address] [id number] [place] [address] 2546 Jun, 2014 [facility] [place] [facility] [address] [id number] [place] [address]- 1946 Jun, 2014 [facility] [place] [facility] [address] [id number] [place] [address]- 5145 Jun, 2014 [facility] [place] [facility] [address] [id number] [place] [address]- 1673 29 Apr, 2014 [facility] [place] [facility] [address] [id number] [place] [address] 2548 29 Apr, 2014 [facility] [place] [facility] [address] [id number] [place] [address]- 254 Apr, [facility] [place] [facility] [address] [id number] [place] [address] 2546 23 Apr, 2014 [facility] [place] [facility] [address] [id number] [place] [address] 2546 18 Apr, 2014 [facility] [place] [facility] [address] [id number] [place] [address] 2546 18 Apr, 2014 [facility] [place] [facility] [address] [id number] [place] [address] 2546 15 Apr, 2014 [facility] [place] [facility] [address] [id number] [place] [address] 2546 15 Apr, 2014 [facility] [place] [facility] [address] [id number] [place] [address]- 2546 Apr, [facility] [place] [facility] [address] [id number] [place] [address]- 4275 Apr, [facility] [place] [facility] [address] [id number] [place] [address]- 0516 Apr, [facility] [place] [facility] [address] [facility] [id number] [place] [address]- 5498 Apr, [facility] [place] [facility] [address] [id number] [place] [address]- 5220 Apr, [facility] [place] [facility] [address] [id number] [place] [address]- 6484 Apr, [facility] [place] [facility] [address] [id number] [place] 1623 Apr, [facility] [place] [facility] [address] [id number] [place] [address]- 6871 Feb, [facility] [place] [facility] [address] [id number] [address]- 5214 Feb, [facility] [place] [facility] [address] [id number] [place] [address]- 4692 Feb, [facility] [place] [facility] [address] [id number] [place] [address]- 3967 Feb, [facility] [place] [facility] [address] [id number] [address]- 8419 Feb, [facility] [place] [facility] [address] [id number] [address]- 1047 Feb, [facility] [place] [facility] [address] [id number] [place] 9519 Jan, [facility] [place] [facility] [address] [id number] [address]- 9359 Jan, [facility] [place] [facility] [address] [id number] [address]- 9306 Jan, [facility] [place] [facility] [address] [id number] [place] [address]- 7886 05 Jan, 2013 [facility] [place] [facility] [address] [id number] [place] [address]- 9006 Jan, [facility] [place] [facility] [address] [id number] [place] [address]- 9096 Jan, [facility] [place] [facility] [address] [id number] [place] [address]- 3465 Dec, [facility] [place] [facility] [address] [id number] [place] [address]- 6160 Dec, [facility] [place] [facility] [address] [id number] [place] [address]- 3438 Dec, [facility] [place] [facility] [address] [id number] [place] [address]- 8762 Dec, [facility] [place] [facility] [address] [id number] [place] [address]- 5213 Nov, [facility] [place] [facility] [address] [id number] [place] [address]- 9386 Nov, [facility] [place] [facility] [address] [id number] [place] [address]- 9963 Nov, [facility] [place] [facility] [address] [id number] [place] [address]- 3716 Nov, [facility] [place] [facility] [address] [id number] [place] [address]- 3808 Nov, [facility] [place] [facility] [address] [id number] [place] [address]- 1113 Nov, [facility] [place] [facility] [address] [id number] [place] [address]- 4595 Nov, [facility] [place] [facility] [address] [id number] [place] [address]- 8186 Nov, [facility] [place] [facility] [address] [id number] [place] [address]- 6037 Oct, [facility] [place] [facility] [address] [id number] [place] [address]- 2638 Oct, [facility] [place] [facility] [address] [id number] [place] [address]- 8612 Oct, [facility] [place] [facility] [address] [id number] [place] [address]- 9032 Oct, [facility] [place] [facility] [address] [id number] [place] [address]- 8230 Oct, [facility] [place] [facility] [address] [id number] [place] [address]- 7156 Oct, [facility] [place] [facility] [address] [id number] [place] [address]- 2275 Oct, [facility] [place] [facility] [address] [id number] [place] [address]- 4509 Oct, [facility] [place] [facility] [address] [id number] [place] [address]- 1938 Oct, [facility] [place] [facility] [address] [id number] [place] [address]- 9984 Oct, [facility] [place] [facility] [address] [id number] [place] [address]- 6253 Oct, [facility] [place] [facility] [address] [id number] [place] [address]- 5254 Oct, [facility] [place] [facility] [address] [id number] [place] [address]- 8799 Oct, [facility] [place] [facility] [address] [id number] [place] [address] Oct, [facility] [place] [facility] [address] [id number] [place] [address] Oct, [facility] [place] [facility] [address] [id number] [place] [address] Oct, [facility] [place] [facility] [address] [id number] [place] [address] Oct, [facility] [place] [facility] [address] [id number] [place] [address] Oct, [facility] [place] [facility] [address] [id number] [place] [address] Oct, [facility] [place] [facility] [address] [id number] [place] [address] Oct, [facility] [place] [facility] [address] [id number] [place] [address] Oct, [facility] [place] [facility] [address] [id number] [place] [address] Oct, [facility] [place] [facility] [address] [id number] [place] [address] Oct, [facility] [place] [facility] [address] [id number] [place] [address] Oct, [facility] [place] [facility] [address] [id number] [place] [address] Oct, [facility] [place] [facility] [address] [id number] [place] [address] Oct, [facility] [place] [facility] [address] [id number] [place] [address] Oct, [facility] [place] [facility] [address] [id number] [place] [address] Oct, [facility] [place] [facility] [address] [id number] [place] [address] Oct, [facility] [place] [facility] [address] [id number] [place] [address]80 Oct, [facility] [place] [facility] [address] [id number] [place] [address] September, [facility] [place] [facility] [address] [id number] [place] [address] September, [facility] [place] [facility] [address] [id number] [place] [address] September, [facility] [address] [id number] [place] [address] September, [facility] [address] [id number] [place] [address] September, [facility] [address] [id number] [place] [address] September, [facility] [address] [id number] [place] [address] September, [facility] [address] [id number] [place] [address] 267[address] September, [facility] [address] [id number] [place] [address] September, [facility] [address] [id number] [place] [address] September, [facility] [address] [id number] [place] [address] September, [facility] [address] [id number] [place] [address] September, [facility] [address] [id number] [place] [address] September, [facility] [address] [id number] [place] [address] September, [facility] [address] [id number] [place] [address] September, [facility] [place] [facility] [address] [id number] [place] [address] September, [facility] [address] [id number] [place] [address] 39[address] September, [facility] [address] [id number] [place] [address] September, [facility] [place] [facility] [address] [id number] [place] [address] Aug, [facility] [place] [facility] [address] [id number] [place] [address] Aug, [facility] [place] [facility] [address] [id number] [place] [address] Aug, [facility] [place] [facility] [address] [id number] [place] [address] Aug, [facility] [place] [facility] [address] [id number] [place] [address] Aug, [facility] [place] [facility] [address] [id number] [place] [address] Aug, [facility] [place] [facility] [address] [id number] [place] [address] Jul, [facility] [place] [facility] [address] [id number] [place] [address] Jul, [facility] [place] [facility] [address] [id number] [place] [address] Jul, [facility] [place] [facility] [address] [id number] [place] [address] Jul, [facility] [place] [facility] [address] [id number] [place] [address] 38[address] Jun, [facility] [place] [facility] [address] [id number] [place] [address] 1992 Jun, [facility] [place] [facility] [address] [id number] [place] [address]61 Jun, [facility] [place] [facility] [address] [id number] [place] [address] 2502 Jun, [facility] [place] [facility] [address] [id number] [place] [address] Mar, [facility] [place] [facility] [address] [id number] [place] [address] 2866 14 Mar, 2013 [facility] [place] [facility] [address] [id number] [place] [address] 8039 Mar, [facility] [place] [facility] [address] [id number] [place] [address] 1568 Mar, [facility] [place] [facility] [address] [id number] [place] [address] 8284 Feb, [facility] [place] [facility] [address] [id number] [place] [address] 6737 Feb, [facility] [place] [facility] [address] [id number] [place] [address]- 0083 Feb, [facility] [place] [facility] [address] [id number] [place] [address] Jan, [facility] [place] [facility] [address] [id number] [place] [address]- 4001 Jan, [facility] [place] [facility] [address] [id number] [place] [address]- 9564 Jan, [facility] [place] [facility] [address] [id number] [place] [address]- 1676 Jan, [facility] [place] [facility] [address] [id number] [place] [address] 3514 Dec, [facility] [place] [facility] [address] [id number] [place] [address]- 4446 Dec, [facility] [place] [facility] [address] [id number] [place] [address] 0653 Dec, [facility] [place] [facility] [address] [id number] [place] [address]- 2115 Dec, [facility] [place] [facility] [address] [id number] [place] [address] 3338 Nov, [facility] [place] [facility] [address] [id number] [place] [address]- 9012 Nov, [facility] [place] [facility] [address] [id number] [place] [address]- 7909 Nov, [facility] [place] [facility] [address] [id number] [place] [address]- 4403 Nov, [facility] [place] [facility] [address] [id number] [place] [address]- 5962 Nov, [facility] [place] [facility] [address] [id number] [place] [address]- 6029 Nov, [facility] [address] [id number] [place] [address] 7874 Oct, [facility] [place] [facility] [address] [id number] [place] [address]- 0526 Oct, [facility] [address] [id number] [place] [address]- 8831 Oct, [facility] [place] [facility] [address] [id number] [place] [address]- 9858 Oct, [facility] [place] [facility] [address] [id number] [place] [address]- 3756 Oct, [facility] [place] [facility] [address] [id number] [place] [address]- 8452 16 Oct, 2012 [facility] [place] [facility] [address] [id number] [place] [address] 3660 14 Oct, 2012 [facility] [place] [facility] [address] [id number] [place] [address]- 3566 13 Oct, 2012 [facility] [place] [facility] [address] [id number] [place] [address]- 2195 Oct, [facility] [place] [facility] [address] [id number] [place] [address]- 0798 Oct, [facility] [place] [facility] [address] [id number] [place] [address]- 4918 September, [facility] [place] [facility] [address] [id number] [place] [address]- 0757 September, [facility] [address] [id number] [place] [address]- 6204 September, [facility] [address] [id number] [place] [address]- 3757 Aug, [facility] [address] [id number] [place] [address]- 4919 Aug, [facility] [place] [facility] [address] [id number] [place] [address]- 3799 Aug, [facility] [address] [id number] [place] [address]- 9281 Aug, [facility] [address] [id number] [place] [address]- 9012 Jul, [facility] [address] [id number] [place] [address]- 1235 Jul, [facility] [address] [id number] [place] [address]- 7750 Jul, [facility] [address] [id number] [place] [address]- 0913 Jul, [facility] [address] [id number] [place] [address]- 0641 Jul, [facility] [address] [id number] [place] [address]- 1742 Jul, [facility] [place] [facility] [address] [id number] [place] [address]- 7649 May, [facility] [place] [facility] [address] [id number] [place] [address]- 1098 May, [facility] [place] [facility] [address] [id number] [place] [address]- 4495 May, [facility] [place] [facility] [address] [id number] [place] [address]- 4236 May, [facility] [place] [facility] [address] [id number] [place] [address]- 9237 May, [facility] [address] [id number] [place] [address]- 6718 May, [facility] [address] [id number] [place] [address]- 1198 May, [facility] [address] [id number] [place] [address]- 1150 18 May, 2012 [facility] [address] [id number] [place] [address]- 4992 May, [facility] [address] [id number] [place] [address]- 5296 17 May, 2012 [facility] [address] [id number] [place] [address]- 7593 16 May, 2012 [facility] [address] [id number] [place] [address]- 0688 Apr, [facility] [address] [id number] [place] [address]- 7491 Apr, [facility] [address] [id number] [place] [address]- 5874 Apr, [facility] [address] [id number] [place] [address]- 6872 Apr, [facility] [address] [id number] [place] [address]- 6316 Apr, [facility] [address] [id number] [place] [address]- 0337 Apr, [facility] [address] [id number] [place] [address] 1969 Mar, [facility] [address] [id number] [place] [address]- 8056 Mar, [facility] [address] [id number] [place] [address]- 0112 Mar, [facility] [place] [facility] [address] [id number] [place] [address]- 6885 Mar, [facility] [place] [facility] [address] [id number] [place] [address]- 0224 Mar, [facility] [place] [facility] [address] [id number] [place] [address] Mar, [facility] [place] [facility] [address] [id number] [place] [address]- 2453 Mar, [facility] [place] [facility] [address] [id number] [place] [address]- 5026 Mar, [facility] [place] [facility] [address] [id number] [place] [address]- 3997 Feb, [facility] [place] [facility] [address] [id number] [place] [address]- 9282 Feb, [facility] [place] [facility] [address] [id number] [place] [address]- 4447 16 Feb, 2012 [facility] [place] [facility] [address] [id number] [place] [address]- 0829 15 Feb, 2012 [facility] [place] [facility] [address] [id number] [place] [address]- 5070 15 Feb, 2012 [facility] [place] [facility] [address] [id number] [place] [address]- 2941 13 Feb, 2012 [facility] [place] [facility] [address] [id number] [place] [address]- 3633 Feb, [facility] [place] [facility] [address] [id number] [place] [address]- 7012 Feb, [facility] [place] [facility] [address] [id number] [place] [address]- 9555 Feb, [facility] [place] [facility] [address] [id number] [place] [address]- 6502 Feb, [facility] [place] [facility] [address] [id number] [place] [address]- 7804 Feb, [facility] [place] [facility] [address] [id number] [place] [address]- 0351 Feb, [facility] [place] [facility] [address] [id number] [place] [address]- 7796 Feb, [facility] [place] [facility] [address] [id number] [place] [address]- 9540 Feb, [facility] [place] [facility] [address] [id number] [place] [address]- 6947 Feb, [facility] [place] [facility] [address] [id number] [place] [address]- 3884 Feb, [facility] [place] [facility] [address] [id number] [place] [address]- 5836 Feb, [facility] [place] [facility] [address] [id number] [place] [address]- 1588 04 Feb, 2012 [facility] [place] [facility] [address] [id number] [place] [address]- 7668 19 Jan, 2012 [facility] [place] [facility] [address] [id number] [place] [address]- 5474 13 Jan, 2012 [facility] [place] [facility] [address] [id number] [place] [address]- 2790 11 Jan, 2012 [facility] [place] [facility] [address] [id number] [place] [address]- 0153 10 Jan, 2012 [facility] [place] [facility] [address] [id number] [place] [address]- 4885 05 Jan, 2012 [facility] [place] [facility] [address] [id number] [place] [address]- 8838 Dec, [facility] [place] [facility] [address] [id number] [place] [address]- 6827 Dec, [facility] [place] [facility] [address] [id number] [place] [address]- 3430 Dec, [facility] [place] [facility] [address] [id number] [place] [address]- 5860 Dec, [facility] [place] [facility] [address] [id number] [place] [address]- 1726 Dec, [facility] [place] [facility] [address] [id number] [place] [address]- 2546 Dec, [facility] [place] [facility] [address] [id number] [place] [address]- 5176 Nov, [facility] [place] [facility] [address] [id number] [place] [address]- 9535 Nov, [facility] [place] [facility] [address] [id number] [place] [address]- 6236 Nov, [facility] [place] [facility] [address] [id number] [place] [address]- 2930 Nov, [facility] [place] [facility] [address] [id number] [place] [address]- 8235 Nov, [facility] [place] [facility] [address] [id number] [place] [address]- 5645 Oct, [facility] [place] [facility] [address] [id number] [place] [address]- 8567 Oct, [facility] [place] [facility] [address] [id number] [place] [address]- 7947 Oct, [facility] [place] [facility] [address] [id number] [place] [address]- 2616 September, [facility] [place] [facility] [address] [id number] [place] [address]- 5156 September, [facility] [place] [facility] [address] [id number] [place] [address]- 6296 September, [facility] [place] [facility] [address] [id number] [place] [address]- 5986 September, [facility] [place] [facility] [address] [id number] [place] [address]- 2504 September, [facility] [address] [id number] [place] [address]- 1334 September, [facility] [place] [facility] [address] [id number] [place] [address]- 6551 Aug, [facility] [place] [facility] [address] [id number] [place] [address]- 4564 Aug, [facility] [place] [facility] [address] [id number] [place] [address]- 0298 Aug, [facility] [address] [id number] [place] [address]- 5490 Jun, [facility] [place] [facility] [address] [id number] [place] [address]- 0328 Jun, [facility] [place] [facility] [address] [id number] [place] [address]- 0361 Jun, [facility] [place] [facility] [address] [id number] [place] [address]- 2491 Jun, [facility] [address] [id number] [place] [address]- 3317 May, [facility] [place] [facility] [address] [id number] [place] [address]- 0658 May, [facility] [address] [id number] [place] [address]- 7446 May, [facility] [place] [facility] [address] [id number] [place] [address]- 2233 May, [facility] [place] [facility] [address] [id number] [place] [address]- 0963 May, [facility] [place] [facility] [address] [id number] [place] Apr, [facility] [place] [facility] [address] [id number] [place] [address]- 7862 Apr, [facility] [place] [facility] [address] [id number] [place] [address]- 7766 20 Apr, 2011 [facility] [place] [facility] [address] [id number] [place] [address]- 0743 Apr, [facility] [place] [facility] [address] [id number] [place] [address]- 1975 19 Apr, 2011 [facility] [place] [facility] [address] [id number] [place] [address]- 1748 16 Apr, 2011 [facility] [place] [facility] [address] [id number] [place] [address]- 6115 16 Apr, 2011 [facility] [place] [facility] [address] [id number] [place] [address]- 9441 Mar, [facility] [place] [facility] [address] [id number] [place] [address]- 1596 Mar, [facility] [place] [facility] [address] [id number] [place] [address]- 0982 Mar, [facility] [place] [facility] [address] [id number] [place] [address]- 2613 Feb, [facility] [place] [facility] [address] [id number] [place] [address]- 8523 24 Feb, 2011 [facility] [place] [facility] [address] [id number] [place] [address]- 9203 Feb, [facility] [place] [facility] [address] [id number] [place] [address]- 5947 Feb, [facility] [place] [facility] [address] [id number] [place] [address]- 1061 18 Feb, 2011 [facility] [place] [facility] [address] [id number] [place] [address]- 4144 17 Feb, 2011 [facility] [place] [facility] [address] [id number] [place] [address]- 7341 13 Jan, 2011 [facility] [place] [facility] [address] [id number] [place] [address]- 5729 12 Jan, 2011 [facility] [address] [id number] [place] [address]- 6185 September, [facility] [place] [facility] [address] [id number] [place] [address]- 1906 Jun, [facility] [address] [id number] [place] [address]- 4248 Apr, [facility] [place] [facility] [address] [id number] [place] [address]- 1390 Apr, [facility] [address] [id number] [place] [address]- 9209 Apr, [facility] [place] [facility] [address] [id number] [place] [address]- 6161 Apr, [facility] [place] [facility] [address] [id number] [place] [address]- 1801 Apr, [facility] [place] [facility] [address] [id number] [place] [address]- 1825 30 Mar, 2010 [facility] [place] [facility] [address] [id number] [place] [address]- 3182 Mar, [facility] [place] [facility] [address] [id number] [place] [address]- 1299 Mar, [facility] [place] [facility] [address] [id number] [place] [address]- 3390 Mar, [facility] [place] [facility] [address] [id number] [place] [address]- 8507 27 Feb, 2010 [facility] [place] [facility] [address] [id number] [place] [address]- 0384 15 Jan, 2010 [facility] [place] [facility] [address] [id number] [place] [address]- 1348 07 Mar, 2009 [facility] [place] [facility] [address] [id number] [place] [address]- 4779 15 Jan, 2009 [facility] [place] [facility] [address] [facility] [id number] [place] [address]- 3804 Oct, [facility] [address] [facility] [id number] [place] [address]- 6593 Apr, IMMUNIZATIONS No Known Immunizations SOCIAL HISTORY Never Assessed REASON FOR VISIT Repository Medication PLAN OF CARE VITAL SIGNS MEDICATIONS Medication Instructions Dosage Frequency Start Date End Date Duration Status Actos 30 MG Orally Once a day 1/2 tablet 24h 180 days Active RESULTS No Results PROCEDURES No Known [...]
--- OUTSIDE RECORDS SUMMARY | 2018-03-22 21:47 | XMS REPORT ---
Author Author BRITANY BOSCH [facility] Address [address] [place] [address] Care Team Providers Care Check Totaler Name Role Phone BRITANY BOSCH Unavailable PROBLEMS Type Condition ICD9-CM Code JOU33-LQ Code Onset Dates Condition Status SNOMED Code Problem Bilateral low back pain without sciatica M54.5 Active 330013216 Problem Anxiety F41.9 Active 93340900 Problem Pre-diabetes R73.03 Active 705856203 Problem Essential hypertension I10 Active 82133156 Problem Irritable bowel syndrome without diarrhea K58.9 Active 73535685 Problem Body mass index (BMI) of 40.0-44.9 in adult Z68.41 Active 018628740 Problem Morbid (severe) obesity due to excess calories E66.01 Active 202521898 Problem Pain in right foot M79.671 Active 26850863920451044 Problem Pain in left foot M79.672 Active 230177787761130 Problem Rhinosinusitis J32.9 Active 67215603 Problem Alternating constipation and diarrhea R19.8 Active [id number] ALLERGIES No Information ENCOUNTERS Encounter Location Date Diagnosis [facility] [id number], [place] [address] Dec, [facility] [address], [place] [address] Nov, [facility] [id number], [place] [address] 69[address] Nov, [facility] [address], [place] [address] 8[address] Nov, Yeast infection involving the vagina and surrounding area B37.3 [facility] [id number], [place] [address] 490[address] Nov, Yeast infection involving the vagina and surrounding area B37.3 [facility] [id number] [place] [address] 53658- 2814 Nov, Yeast infection involving the vagina and surrounding area B37.3 ; Body mass index (BMI) of 40.0-44.9 in adult Z68.41 and Morbid (severe) obesity due to excess calories E66.01 [place] [address] [address]- [address] 14 Oct, 2017 Abscess of groin, left L02.214 and Pre-diabetes R73.03 [place] [address] [address]- 8530 September, Pre-diabetes R73.03 [place] [address] 01448- 5165 Aug, [facility] [address] 67058- 4285 Jul, Bilateral low back pain without sciatica M54.5 [place] [address] 14599- 1106 Jun, [place] [address] 13204- 6569 Jun, [place] [id number] [place] [address] 78580- 3819 Jun, [place] [address] 99396- 8786 May, [place] [address] 87648- 4616 May, Ingrown left greater toenail L60.0 [place] [address] 87521- 1675 May, [facility] [address] [address] -[address]74 May, Influenza A J10.1 ; Fever R50.9 and Body aches R52 [facility] [id number] [place] [address] 82625- 1606 Apr, [facility] [id number] [place] [address] 31153- 5059 Apr, [facility] [id number] [place] [address] 75988- 9159 Apr, [facility] [address] 98327- 0309 Apr, Abscess L02.91 and Obesity (BMI 30-39.9) E66.9 [place] [address] 57862- 7373 Apr, [facility] [id number] [place] [address] 23539- 3579 Apr, [facility] [id number] [place] [address] 66211- 7813 Mar, Acute non-recurrent maxillary sinusitis J01.00 [place] [id number] [place] [address] 77941- 3699 Feb, Heartburn R12 [facility] [id number] [place] [address] 41844- 6182 Feb, Heartburn R12 ; Low back pain M54.5 ; Essential hypertension I10 ; Bilateral low back pain without sciatica M54.5 ; Anxiety F41.9 ; Pre-diabetes R73.03 ; Other obesity due to excess calories E66.09 ; Alternating constipation and diarrhea R19.8 ; Dyspepsia R10.13 ; Generalized abdominal pain R10.84 ; Rhinosinusitis J32.9 and Boil L02.92 [place] [id number] [place] [address] 30526- 0117 22 Jan, 2017 Heartburn R12 [place] [id number] [place] [address] 05356- 5837 Jan, [facility] [id number] [place] [address] 61310- 8063 Jan, [place] [id number] [place] [address] 66678- 1871 Jan, Acute seasonal allergic rhinitis due to pollen J30.1 and Irritable bowel syndrome without diarrhea K58.9 [id number] [place] [address] 10033- 3597 Dec, Low back pain M54.5 and Acute cystitis with hematuria N30.01 [id number] [place] [address] 39307- 5513 Dec, Low back pain M54.5 and Acute cystitis with hematuria N30.01 [place] [id number] [place] [address] 91472- 1996 Dec, Heartburn R12 ; Essential hypertension I10 ; Acute non- recurrent maxillary sinusitis J01.00 ; Bilateral low back pain without sciatica M54.5 ; Anxiety F41.9 ; Pre-diabetes R73.03 ; Pain in right foot M79.671 ; Pain in left foot M79.672 ; Other obesity due to excess calories E66.09 and Acute cystitis with hematuria N30.01 [id number] [place] [address] 52772- 3720 Dec, Bilateral low back pain without sciatica M54.5 ; Acute non- recurrent maxillary sinusitis J01.00 and Pre-diabetes R73.03 [place] [id number] [place] [address] 03698- 5497 Oct, [facility] [address] [place] [id number] [place] [address] 35188 -0585 Aug, [facility] [address] [place] [id number] [place] [address] 44378 -9344 Aug, Acute vaginitis N76.0 ; Urinary frequency R35.0 ; Screen for STD (sexually transmitted disease) Z11.3 and Abscess L02.91 [id number] [place] [address] 27382- 7341 Aug, Plantar wart of right foot B07.0 [facility] [address] 33509- 1783 Jul, Plantar wart of right foot B07.0 [facility] [address] 35068- 1635 Jun, [place] [address] 66497- 7428 Jun, Heartburn R12 ; Essential hypertension I10 ; Anxiety F41.9 ; Folliculitis L73.9 and Plantar wart of right foot B07.0 [place] [address] 52384- 9321 Jun, [facility] [address] 07708 -5405 May, Low back pain M54.5 and Other chronic pain G89.29 [place] [address] 27648- 3690 May, [place] [address] 35189- 4665 May, [place] [address] 41367- 0843 May, Heartburn R12 ; Bilateral low back pain without sciatica M54.5 ; Essential hypertension I10 ; Long-term use of high-risk medication Z79.899 ; Anxiety F41.9 ; Impacted cerumen of right ear H61.21 ; Folliculitis L73.9 ; High risk bisexual behavior Z72.53 and General medical exam Z00.00 [facility] [id number] [place] [address] 46789- 3440 May, [place] [address] 99588- 6089 May, [facility] [id number] [place] [address] 44303- 0164 Mar, Acute nasopharyngitis J00 ; Acute intractable tension-type headache G44.201 and Cough R05 [facility] [id number] [place] [address] 97822- 2928 Jan, [facility] [id number] [place] [address] 09215 -2199 Jan, Abscess L02.91 [facility] [id number] [place] [address] 21075 -3904 Jan, Urinary urgency R39.15 and Urinary tract infection without hematuria, site unspecified N39.0 [place] [id number] [place] [address] 01493- 0833 Jan, [place] [id number] [place] [address] 70900- 7185 Jan, [place] [id number] [place] [address] 48540- 1601 Dec, [place] [id number] [place] [address] 65137- 2201 Dec, Dermatofibroma D23.9 [place] [id number] [place] [address] 86444- 8189 September, [place] [id number] [place] [address] 25519- 9677 Aug, [place] [id number] [place] [address] 20162- 5517 Aug, Pain in left knee M25.562 ; Heartburn R12 ; Bilateral low back pain without sciatica M54.5 ; Essential hypertension I10 ; Ingrown left big toenail L60.0 ; Chronic pain G89.29 ; Irritable bowel syndrome with constipation K58.9 and Skin infection L08.9 [place] [id number] [place] [address] 33907- 0277 Aug, [facility] [address], [place] [address]- 9100 Jul, [facility] [id number] [place] [address] 15254- 1525 Jun, [facility] [id number] [place] [address] 50367- 3369 Jun, [facility] [id number] [place] [address] 14728- 0903 Jun, [facility] [id number] [place] [address] 17466- 4886 Jun, [facility] [id number] [place] [address] 53516- 8895 Jun, Upper respiratory infection J06.9 ; Bilateral low back pain without sciatica M54.5 and Headache R51 [facility] [id number] [place] [address] 36994- 3032 May, [facility] [id number] [place] [address] 70763- 2662 Apr, Bilateral low back pain without sciatica M54.5 ; Upper respiratory infection J06.9 and Yeast dermatitis B37.2 [facility] [address], [place] [address]- 9662 Apr, [facility] [id number] [place] [address] 28956- 0265 Apr, [facility] [id number] [place] [address] 80829- 4627 Feb, [facility] [id number] [place] [address] 70924- 9806 Feb, [facility] [address], [place] [address]- 2146 Feb, [facility] [id number] [place] [address] 50081- 9492 Feb, Essential hypertension I10 ; Heartburn R12 ; Irritable bowel syndrome without diarrhea K58.9 ; Bilateral low back pain, with sciatica presence unspecified M54.5 and Upper respiratory infection J06.9 [place] [id number] [place] [address] 96836- 3167 Feb, [place] [address] 07461- 7855 Feb, Generalized anxiety disorder F41.1 and Grief F43.20 [place] [address] 82507- 6918 Jan, [place] [address] 03091- 1380 Jan, Back pain 724.5 ; Upper respiratory infection 465.9 ; HTN ( hypertension) 401.9 and Dyspepsia 536.8 [place] [address] 96957- 6512 Dec, [place] [address] 00579- 0439 Nov, Back pain 724.5 ; Abdominal pain, bilateral lower quadrant 789.03 ; GERD (gastroesophageal reflux disease) 530.81 ; Upper respiratory infection 465.9 ; Dysuria 788.1 and HTN (hypertension) 401.9 [place] [id number] [place] [address] 93707- 3623 Nov, [place] [address] 20159- 4697 Nov, [place] [address] 17981- 6238 Nov, [place] [id number] [place] [address] 22613- 8797 Nov, Cough 786.2 [place] [address] 45444- 2562 Nov, Cough 786.2 [facility] [address], [place] [address]- 1321 12 Oct, 2014 Unspecified episodic mood disorder 296.90 and Anxiety disorder, unspecified 300.00 [facility] [id number] [place] [address] 14554- 0047 10 Oct, 2014 Abdominal pain, left upper quadrant 789.02 ; Essential hypertension, benign 401.1 ; Irritable bowel syndrome 564.1 ; Abscess 682.9 ; Heartburn 787.1 ; Acute sinusitis, unspecified 461.9 ; Muscle spasm of back 724.8 ; Cough 786.2 and Skin tag 701.9 [facility] [id number] [place] [address] 26339- 8795 September, [facility] [id number] [place] [address] 98643- 3467 September, [facility] [id number] [place] [address] 13264- 5218 September, [facility] [id number] [place] [address] 54845- 6614 Aug, [facility] [id number] [place] [address] 40034- 6716 Aug, [facility] [id number] [place] [address] 89600- 2268 Jul, [facility] [id number] [place] [address] [id number]- 2372 30 Jul, 2014 [facility] [id number] [place] [address] [id number]- 7176 Jul, [facility] [id number] [place] [address] 966841- 3924 Jul, [facility] [id number] [place] [address] 139481- 1756 Jul, [facility] [id number] [place] [address] 051713- 8766 Jul, [facility] [place] [facility] [address] [id number] [place] [address]- 3574 Jul, [facility] [place] [facility] [address] [id number] [place] [address]- 1589 Jul, [facility] [place] [facility] [address] [id number] [place] [address]- 4530 Jul, [facility] [place] [facility] [address] [id number] [place] [address]- 1862 Jul, [facility] [place] [facility] [address] [id number] [place] [address]- 3399 Jul, [facility] [place] [facility] [address] [id number] [place] [address]- 1931 Jul, [facility] [place] [facility] [address] [id number] [place] [address]- 6253 Jul, [facility] [place] [facility] [address] [id number] [place] [address]- 6931 Jul, [facility] [place] [facility] [address] [id number] [place] [address]- 1449 Jul, [facility] [place] [facility] [address] [id number] [place] [address]- 6819 Jul, [facility] [place] [facility] [address] [id number] [place] [address]- 1303 Jul, [facility] [place] [facility] [address] [id number] [place] [address]- 9463 Jun, [facility] [place] [facility] [address] [id number] [place] [address]- 1657 Jun, [facility] [place] [facility] [address] [id number] [place] [address]- 9850 Jun, [facility] [place] [facility] [address] [id number] [place] [address]- 0609 Jun, [facility] [place] [facility] [address] [id number] [place] [address]- 9926 13 Jun, 2014 [facility] [place] [facility] [address] [id number] [place] [address]- 3846 13 Jun, 2014 [facility] [place] [facility] [address] [id number] [place] [address]- 4846 Jun, 2014 [facility] [place] [facility] [address] [id number] [place] [address]- 2896 Jun, 2014 [facility] [place] [facility] [address] [id number] [place] [address]- 5361 Apr, [facility] [place] [facility] [address] [id number] [place] [address]- 8606 Apr, [facility] [place] [facility] [address] [id number] [place] [address]- 4274 Apr, [facility] [place] [facility] [address] [id number] [place] [address]- 4481 Apr, [facility] [place] [facility] [address] [id number] [place] [address]- 4420 Apr, [facility] [place] [facility] [address] [id number] [place] [address]- 3525 Apr, [facility] [place] [facility] [address] [id number] [place] [address]- 8476 15 Apr, 2014 [facility] [place] [facility] [address] [id number] [place] [address]- 2546 15 Apr, 2014 [facility] [place] [facility] [address] [id number] [place] [address]- 2546 12 Apr, 2014 [facility] [place] [facility] [address] [id number] [place] [address]- 7856 Apr, [facility] [place] [facility] [address] [id number] [place] [address]- 2546 Apr, [facility] [place] [facility] [address] [id number] [place] [address]- 0984 Apr, [facility] [place] [facility] [address] [id number] [place] [address]- 9305 Apr, [facility] [place] [facility] [address] [id number] [place] [address]- 8847 Apr, [facility] [place] [facility] [address] [id number] [place] 9621 Apr, [facility] [place] [facility] [address] [id number] [place] [address]- 7659 Feb, [facility] [place] [facility] [address] [id number] [place] [address]- 0294 Feb, [facility] [place] [facility] [address] [id number] [place] [address]- 2161 Feb, [facility] [place] [facility] [address] [id number] [place] [address]- 4042 Feb, [facility] [place] [facility] [address] [id number] [place] [address]- 7539 Feb, [facility] [place] [facility] [address] [id number] [place] [address]- 0924 Feb, [facility] [place] [facility] [address] [id number] [place] [address]- 5466 Jan, 2013 [facility] [place] [facility] [address] [id number] [place] [address]- 4821 08 Sep, 2013 [facility] [place] [facility] [address] [id number] [address]- 8681 05 Sep, 2013 [facility] [place] [facility] [address] [id number] [place] [address]- 2975 05 Sep, 2013 [facility] [place] [facility] [address] [id number] [place] [address]- 8294 Sep, 2013 [facility] [place] [facility] [address] [id number] [place] [address]- 8010 05 Sep, 2013 [facility] [place] [facility] [address] [id number] [place] [address]- 7313 Dec, [facility] [place] [facility] [address] [id number] [place] [address]- 0832 Dec, [facility] [place] [facility] [address] [id number] [place] [address]- 8281 Dec, [facility] [place] [facility] [address] [id number] [place] [address]- 6737 Dec, [facility] [place] [facility] [address] [id number] [place] [address]- 7843 Nov, [facility] [place] [facility] [address] [id number] [place] [address]- 9979 Nov, [facility] [place] [facility] [address] [id number] [place] [address]- 7518 Nov, [facility] [place] [facility] [address] [id number] [place] [address]- 2582 Nov, [facility] [place] [facility] [address] [id number] [place] [address]- 6096 Nov, [facility] [place] [facility] [address] [id number] [place] [address]- 1207 Nov, [facility] [place] [facility] [address] [id number] [place] [address]- 6147 Nov, [facility] [place] [facility] [address] [id number] [place] [address]- 0872 Nov, [facility] [place] [facility] [address] [id number] [place] [address]- 9934 Oct, [facility] [place] [facility] [address] [id number] [place] [address]- 3565 Oct, [facility] [place] [facility] [address] [id number] [place] [address]- 8120 Oct, [facility] [place] [facility] [address] [id number] [place] [address]- 6862 Oct, [facility] [place] [facility] [address] [id number] [place] [address]- 5713 30 Oct, 2013 [facility] [place] [facility] [address] [id number] [place] [address]- 4926 30 Oct, 2013 [facility] [place] [facility] [address] [id number] [place] [address]- 2214 Oct, [facility] [place] [facility] [address] [id number] [place] [address]- 9779 Oct, [facility] [place] [facility] [address] [id number] [place] [address]- 0294 Oct, [facility] [place] [facility] [address] [id number] [place] [address]- 7367 Oct, [facility] [place] [facility] [address] [id number] [place] [address]- 3157 Oct, [facility] [place] [facility] [address] [id number] [place] [address]- 2166 Oct, [facility] [place] [facility] [address] [id number] [place] [address]- 3389 18 Oct, 2013 [facility] [place] [facility] [address] [id number] [place] [address]26 18 Oct, 2013 [facility] [place] [facility] [address] [id number] [place] [address] 17 Oct, 2013 [facility] [place] [facility] [address] [id number] [place] [address]90 17 Oct, 2013 [facility] [place] [facility] [address] [id number] [place] [address] 16 Oct, 2013 [facility] [place] [facility] [address] [id number] [place] [address] 97[address] 16 Oct, 2013 [facility] [place] [facility] [address] [id number] [place] [address]- [address]166 13 Oct, 2013 [facility] [place] [facility] [address] [id number] [place] [address] Oct, [facility] [place] [facility] [address] [id number] [place] [address] 6168 Oct, [facility] [place] [facility] [address] [id number] [place] [address]185 Oct, [facility] [place] [facility] [address] [id number] [place] [address] 1695 Oct, [facility] [place] [facility] [address] [id number] [place] [address]126 Oct, [facility] [place] [facility] [address] [id number] [place] [address]- 1455 Oct, [facility] [place] [facility] [address] [id number] [place] [address] Oct, [facility] [place] [facility] [address] [id number] [place] [address] 6640 Oct, [facility] [place] [facility] [address] [id number] [place] [address]- 9234 Oct, [facility] [place] [facility] [address] [id number] [place] [address] 3091 Oct, [facility] [place] [facility] [address] [id number] [place] [address]- 2920 Oct, [facility] [place] [facility] [address] [id number] [place] [address]- 9332 September, [facility] [place] [facility] [address] [id number], [place] [address] September, [facility] [place] [facility] [address] [id number] [place] [address] 5860 September, [facility] [place] [facility] [address] [id number] [place] [address]- 9054 September, [facility] [place] [facility] [address] [id number] [place] [address] 1017 September, [facility] [place] [facility] [address] [id number] [place] [address] 69[address] September, [facility] [address] [id number] [place] [address] 45[address] September, [facility] [address] [id number] [place] [address] September, [facility] [address] [id number] [place] [address] September, [facility] [address] [id number] [place] [address] 8534 September, [facility] [address] [id number] [place] [address]118 September, [facility] [address] [id number] [place] [address]- 6878 September, [facility] [address] [id number] [place] [address] 1065 September, [facility] [address] [id number] [place] [address] 3401 September, [facility] [address] [id number] [place] [address] 8010 September, [facility] [address] [id number] [place] [address]327 September, [facility] [place] [facility] [address] [id number] [place] [address] 8[address] September, [facility] [place] [facility] [address] [id number] [place] [address]- 9625 September, [facility] [place] [facility] [address] [id number] [place] [address] 3567 Aug, [facility] [place] [facility] [address] [id number] [place] [address] 9360 Aug, [facility] [place] [facility] [address] [id number] [place] [address]- 5852 Aug, [facility] [place] [facility] [address] [id number] [place] [address] 65[address] Aug, [facility] [place] [facility] [address] [id number] [place] [address]- 7582 Aug, [facility] [place] [facility] [address] [id number] [place] [address] [address] Aug, [facility] [place] [facility] [address] [id number] [place] [address] 295[address] Jul, [facility] [place] [facility] [address] [id number] [place] [address] Jul, [facility] [place] [facility] [address] [id number] [place] [address] Jul, [facility] [place] [facility] [address] [id number] [place] [address] 28[address] Jul, [facility] [place] [facility] [address] [id number] [place] [address] Jun, [facility] [place] [facility] [address] [id number] [place] [address] 9[address] Jun, [facility] [place] [facility] [address] [id number] [place] [address] 1978 Jun, [facility] [place] [facility] [address] [id number] [place] [address] 7424 Jun, [facility] [place] [facility] [address] [id number] [place] [address] 7094 Mar, [facility] [place] [facility] [address] [id number] [place] [address]136 14 Mar, 2013 [facility] [place] [facility] [address] [id number] [place] [address] 6615 Mar, [facility] [place] [facility] [address] [id number] [place] [address] 3944 Mar, [facility] [place] [facility] [address] [id number] [place] [address] 2254 Feb, [facility] [address] [id number] [place] [address] 1033 Feb, [facility] [place] [facility] [address] [id number] [place] [address]- 3502 Feb, [facility] [place] [facility] [address] [id number] [place] [address] 4895 Jan, [facility] [place] [facility] [address] [id number] [place] [address] 5312 Jan, [facility] [place] [facility] [address] [id number] [place] [address] 8037 Jan, [facility] [place] [facility] [address] [id number] [place] [address] 7295 Jan, [facility] [address] [id number] [place] [address] 8300 Dec, [facility] [place] [facility] [address] [id number] [place] [address]- 9566 Dec, [facility] [place] [facility] [address] [id number] [place] [address]- 1529 Dec, [facility] [place] [facility] [address] [id number] [place] [address]- 2318 Dec, [facility] [place] [facility] [address] [id number] [place] [address]- 4481 Nov, [facility] [place] [facility] [address] [id number] [place] [address]- 2081 Nov, [facility] [place] [facility] [address] [id number] [place] [address]- 6495 Nov, [facility] [place] [facility] [address] [id number] [place] [address] Nov, [facility] [place] [facility] [address] [id number] [place] [address]- 1499 Nov, [facility] [place] [facility] [address] [id number] [place] [address]- 3348 Nov, [facility] [place] [facility] [address] [id number] [place] [address] 2119 Oct, [facility] [place] [facility] [address] [id number] [place] [address]- 1272 Oct, [facility] [place] [facility] [address] [id number] [place] [address]- 7693 Oct, [facility] [place] [facility] [address] [id number] [place] [address]- 3530 Oct, [facility] [place] [facility] [address] [id number] [place] [address]- 6268 17 Oct, 2012 [facility] [place] [facility] [address] [id number] [place] [address]- 9884 16 Oct, 2012 [facility] [place] [facility] [address] [id number] [place] [address]- 3584 14 Oct, 2012 [facility] [place] [facility] [address] [id number] [place] [address] 1943 13 Oct, 2012 [facility] [place] [facility] [address] [id number] [place] [address]- 9138 Oct, [facility] [place] [facility] [address] [id number] [place] [address]- 3697 Oct, [facility] [place] [facility] [address] [id number] [place] [address]- 9843 September, [facility] [place] [facility] [address] [id number] [place] [address]- 1575 September, [facility] [place] [facility] [address] [id number] [place] [address] September, [facility] [place] [facility] [address] [id number] [place] [address]99 04 Aug, 2012 [facility] [place] [facility] [address] [id number] [place] [address]- 3881 Aug, [facility] [address] [id number] [place] [address]- 5535 Aug, [facility] [address] [id number] [place] [address]- 9326 Aug, [facility] [address] [id number] [place] [address]- 5253 Jul, [facility] [place] [facility] [address] [id number] [place] [address]- 0634 Jul, [facility] [address] [id number] [place] [address]- 2791 Jul, [facility] [address] [id number] [place] [address]- 0428 Jul, [facility] [address] [id number] [place] [address]- 5421 Jul, [facility] [place] [facility] [address] [id number] [place] [address]- 0845 Jul, [facility] [address] [id number] [place] [address]- 8769 May, [facility] [place] [facility] [address] [id number] [place] [address]- 8648 May, [facility] [address] [id number], [place] [address]- 2[address] May, [facility] [place] [facility] [address] [id number], [place] [address]- 8571 May, [facility] [place] [facility] [address] [id number] [place] [address]- 3708 May, [facility] [place] [facility] [address] [id number], [place] [address]- 0257 May, [facility] [place] [facility] [address] [id number] [place] [address]- 4278 May, [facility] [place] [facility] [address] [id number] [place] [address]- 4566 18 May, 2012 [facility] [address] [id number] [place] [address]- 0576 17 May, 2012 [facility] [place] [facility] [address] [id number] [place] [address]- 1106 17 May, 2012 [facility] [address] [id number] [place] [address]- 7686 16 May, 2012 [facility] [place] [facility] [address] [id number] [place] [address]- 8559 27 Apr, 2012 [facility] [address] [id number] [place] [address]- 1381 Apr, [facility] [place] [facility] [address] [id number] [place] [address]- 0878 Apr, [facility] [address] [id number] [place] [address]- 5182 Apr, [facility] [address] [id number] [place] [address] 3011 Apr, [facility] [place] [facility] [address] [id number] [place] [address]- 6073 Apr, [facility] [address] [id number] [place] [address]- 1691 Mar, [facility] [place] [facility] [address] [id number] [place] [address]- 6947 Mar, [facility] [place] [facility] [address] [id number] [place] [address]- 9590 Mar, [facility] [place] [facility] [address] [id number] [place] [address]- 9460 Mar, [facility] [place] [facility] [address] [id number] [place] [address]- 8950 Mar, [facility] [place] [facility] [address] [id number] [place] [address]- 4709 Mar, [facility] [place] [facility] [address] [id number] [place] [address]- 4756 Mar, [facility] [place] [facility] [address] [id number] [place] [address] Mar, [facility] [place] [facility] [address] [id number] [place] [address]- 8188 Feb, [facility] [place] [facility] [address] [id number] [place] [address]- 5240 23 Feb, 2012 [facility] [place] [facility] [address] [id number] [place] [address]- 7939 16 Feb, 2012 [facility] [place] [facility] [address] [id number] [place] [address]- 5057 15 Feb, 2012 [facility] [place] [facility] [address] [id number] [place] [address]- 4020 15 Feb, 2012 [facility] [place] [facility] [address] [id number] [place] [address]- 4631 Feb, [facility] [place] [facility] [address] [id number] [place] [address]- 1768 Feb, [facility] [place] [facility] [address] [id number] [place] [address]- 6185 Feb, [facility] [place] [facility] [address] [id number] [place] [address]- 2654 Feb, [facility] [place] [facility] [address] [id number], [place] [address] 9298 Feb, [facility] [place] [facility] [address] [id number] [place] [address]- 8194 Feb, [facility] [place] [facility] [address] [id number] [place] [address]- 2896 Feb, [facility] [place] [facility] [address] [id number] [place] [address]- 4053 Feb, [facility] [place] [facility] [address] [id number], [place] [address]- 5626 Feb, [facility] [place] [facility] [address] [id number] [place] [address]- 0846 Feb, [facility] [place] [facility] [address] [id number] [place] [address]- 3786 Feb, [facility] [place] [facility] [address] [id number] [place] [address]- 6104 Feb, [facility] [place] [facility] [address] [id number] [place] [address]- 1933 04 Feb, 2012 [facility] [place] [facility] [address] [id number] [place] [address]- 7633 19 Jan, 2012 [facility] [place] [facility] [address] [id number] [place] [address]- 4897 13 Jan, 2012 [facility] [place] [facility] [address] [id number] [place] [address]- 5165 11 Jan, 2012 [facility] [place] [facility] [address] [id number] [place] [address]- 8088 10 Jan, 2012 [facility] [place] [facility] [address] [id number] [place] [address]- 9360 05 Jan, 2012 [facility] [place] [facility] [address] [id number] [place] [address]- 3063 Dec, [facility] [place] [facility] [address] [id number] [place] [address]- 2369 Dec, [facility] [place] [facility] [address] [id number] [place] [address]- 6995 Dec, [facility] [place] [facility] [address] [id number] [place] [address]- 4999 Dec, [facility] [place] [facility] [address] [id number] [place] [address]- 0848 Dec, [facility] [place] [facility] [address] [id number] [place] [address]- 1686 Dec, [facility] [place] [facility] [address] [id number] [place] [address]- 9803 Nov, [facility] [address] [id number] [place] [address]- 3264 Nov, [facility] [address] [id number] [place] [address]- 7866 Nov, [facility] [address] [id number] [place] [address]- 6974 Nov, [facility] [address] [id number] [place] [address] 2546 Nov, [facility] [address] [id number] [place] [address]- 9819 Oct, [facility] [address] [id number] [place] [address]- 0856 Oct, [facility] [address] [id number] [place] [address]- 2869 Oct, [facility] [address] [id number] [place] [address]- 1511 September, [facility] [address] [id number] [place] [address]- 9836 September, [facility] [address] [id number] [place] [address]- 5526 September, [facility] [address] [id number] [place] [address]- 6776 September, [facility] [address] [id number] [place] [address]- 8386 September, [facility] [place] [facility] [address] [id number] [place] [address]- 0436 September, [facility] [address] [id number] [place] [address]- 6246 Aug, [facility] [address] [id number] [place] [address]- 4871 Aug, [facility] [address] [id number] [place] [address]- 8485 Aug, [facility] [place] [facility] [address] [id number] [place] [address]- 4016 Jun, [facility] [address] [id number] [place] [address]- 4494 Jun, [facility] [place] [facility] [address] [id number] [place] [address]- 4742 Jun, [facility] [address] [id number] [place] [address]- 5601 Jun, [facility] [address] [id number] [place] [address]- 5937 May, [facility] [address] [id number] [place] [address]- 6923 May, [facility] [place] [facility] [address] [id number] [place] [address]- 5011 May, [facility] [address] [id number] [place] [address]- 7680 May, [facility] [address] [id number] [place] [address]- 9838 May, [facility] [address] [id number] [place] [address]- 9123 Apr, [facility] [place] [facility] [address] [id number], [place] [address]- 4718 Apr, [facility] [place] [facility] [address] [id number] [place] [address]- 1956 Apr, [facility] [place] [facility] [address] [id number] [place] [address]- 6286 Apr, [facility] [place] [facility] [address] [id number] [place] [address]- 3735 Apr, [facility] [place] [facility] [address] [id number] [place] [address]24 16 Apr, 2011 [facility] [place] [facility] [address] [id number] [place] 5870 16 Apr, 2011 [facility] [place] [facility] [address] [id number] [place] [address]- 2186 Mar, [facility] [place] [facility] [address] [id number] [place] [address]- 3470 Mar, [facility] [place] [facility] [address] [id number] [place] [address]- 3452 Mar, [facility] [place] [facility] [address] [id number] [place] [address]- 0992 Feb, [facility] [place] [facility] [address] [id number] [place] [address]- 8522 Feb, [facility] [place] [facility] [address] [id number] [place] [address]- 3324 Feb, [facility] [place] [facility] [address] [id number] [place] [address]- 0986 Feb, [facility] [place] [facility] [address] [id number] [place] [address]- 3415 18 Feb, 2011 [facility] [place] [facility] [address] [facility] [id number] [place] [address]- 7443 Feb, [facility] [place] [facility] [address] [id number] [place] [address]- 8621 Jan, [facility] [place] [facility] [address] [id number] [place] [address]- 8599 Jan, [facility] [place] [facility] [address] [id number] [place] [address]50 September, [facility] [place] [facility] [address] [id number] [place] [address]19 Jun, [facility] [place] [facility] [address] [id number] [place] [address] Apr, [facility] [address] [facility] [id number], [place] [address]- 9845 Apr, [facility] [address] [facility] [id number], [place] [address]- 3440 Apr, [facility] [address] [id number] [address]377 Apr, [facility] [id number] [address]484 Apr, [facility] [address] [facility] [id number], [place] [address]- 1391 Mar, [facility] [id number], [place] [address]- 7718 Mar, [facility] [id number], [place] [address]- 2593 Mar, [facility] [id number], [place] [address]- 2658 Mar, [facility] [id number], [place] [address]- 3791 Feb, [facility] [id number], [place] [address]- 2784 Jan, [facility] [id number], [place] [address]- 5104 Mar, [facility] [id number], [place] [address]- 5744 Jan, [facility] [address] [id number], [place] [address]- 5427 Oct, [facility] [address] [id number] [address] Apr, IMMUNIZATIONS No Known Immunizations SOCIAL HISTORY Never Assessed REASON FOR VISIT Requesting medications vouchered PLAN OF CARE VITAL SIGNS MEDICATIONS Unknown [...]
--- OUTSIDE RECORDS SUMMARY | 2018-03-22 21:47 | XMS REPORT ---
Author Author BRITANY BOSCH [facility] Address [address] [place] [address] Care Team Providers [employer] Name Role Phone BRITANY BOSCH Unavailable PROBLEMS Type Condition ICD9-CM Code FWC08-BB Code Onset Dates Condition Status SNOMED Code Problem Bilateral low back pain without sciatica M54.5 Active 567412641 Problem Anxiety F41.9 Active 84066242 Problem Pre-diabetes R73.03 Active 633121275 Problem Essential hypertension I10 Active 91082830 Problem Irritable bowel syndrome without diarrhea K58.9 Active 93496334 Problem Body mass index (BMI) of 40.0-44.9 in adult Z68.41 Active 121137378 Problem Morbid (severe) obesity due to excess calories E66.01 Active 783247576 Problem Pain in right foot M79.671 Active 99155705062257941 Problem Pain in left foot M79.672 Active 684356136019339 Problem Rhinosinusitis J32.9 Active 49718277 Problem Alternating constipation and diarrhea R19.8 Active 932498405 ALLERGIES No Information ENCOUNTERS Encounter Location Date Diagnosis [place] [id number] [address] Dec, [place] [id number] [place] [address] 96015- 7620 Nov, Yeast infection involving the vagina and surrounding area B37.3 [facility] [id number] [place] [address] 29057- 5367 Nov, Yeast infection involving the vagina and surrounding area B37.3 [facility] [id number] [address] Nov, Yeast infection involving the vagina and surrounding area B37.3 ; Body mass index (BMI) of 40.0-44.9 in adult Z68.41 and Morbid (severe) obesity due to excess calories E66.01 [place] [id number] [place] [address] 94280- 6877 14 Oct, 2017 Abscess of groin, left L02.214 and Pre-diabetes R73.03 [facility] [address] [address]- 1275 September, Pre-diabetes R73.03 [place] [address] 49888- 1051 Aug, [place] [address] 55720- 7311 Jul, Bilateral low back pain without sciatica M54.5 [place] [address] 29191- 7834 Jun, [place] [address] 19258- 3531 Jun, [facility] [address] 29218- 3666 Jun, [place] [address] 89374- 4390 May, [facility] [address] 00065- 0405 May, Ingrown left greater toenail L60.0 [facility] [address] 51333- 9100 May, [facility] [address] 94[address] -3918 May, Influenza A J10.1 ; Fever R50.9 and Body aches R52 [place] [address] 25266- 1056 Apr, [facility] [address] 82032- 0120 Apr, [place] [id number] [place] [address] 97668- 8706 Apr, [place] [id number] [place] [address] 25387- 7006 Apr, Abscess L02.91 and Obesity (BMI 30-39.9) E66.9 [place] [address] 94738- 3677 Apr, [place] [address] 18673- 8424 Apr, [place] [address] 71269- 9261 Mar, Acute non-recurrent maxillary sinusitis J01.[address] 19226- 5892 Feb, Heartburn R12 [place] [id number] [place] [address] 21892- 3503 Feb, Heartburn R12 ; Low back pain M54.5 ; Essential hypertension I10 ; Bilateral low back pain without sciatica M54.5 ; Anxiety F41.9 ; Pre-diabetes R73.03 ; Other obesity due to excess calories E66.09 ; Alternating constipation and diarrhea R19.8 ; Dyspepsia R10.13 ; Generalized abdominal pain R10.84 ; Rhinosinusitis J32.9 and Boil L02.92 [place] [id number] [place] [address] 07727- 1928 Jan, Heartburn R12 [place] [id number] [place] [address] 30615- 6868 Jan, [place] [id number] [place] [address] 60184- 2041 Jan, [place] [id number] [place] [address] 30755- 0862 Jan, Acute seasonal allergic rhinitis due to pollen J30.1 and Irritable bowel syndrome without diarrhea K58.9 [place] [address] 60970- 3587 Dec, Low back pain M54.5 and Acute cystitis with hematuria N30.01 [place] [address] 73101- 8585 Dec, Low back pain M54.5 and Acute cystitis with hematuria N30.01 [place] [address] 74504- 7067 Dec, Heartburn R12 ; Essential hypertension I10 ; Acute non- recurrent maxillary sinusitis J01.00 ; Bilateral low back pain without sciatica M54.5 ; Anxiety F41.9 ; Pre-diabetes R73.03 ; Pain in right foot M79.671 ; Pain in left foot M79.672 ; Other obesity due to excess calories E66.09 and Acute cystitis with hematuria N30.01 [place] [address] 08074- 0602 Dec, Bilateral low back pain without sciatica M54.5 ; Acute non- recurrent maxillary sinusitis J01.00 and Pre-diabetes R73.03 [place] [address] 64536- 7240 Oct, [facility] [address] 17[address] -7556 Aug, [facility] [address] [address] -[address]65 Aug, Acute vaginitis N76.0 ; Urinary frequency R35.0 ; Screen for STD (sexually transmitted disease) Z11.3 and Abscess L02.91 [place] [address] 04409- 8730 Aug, Plantar wart of right foot B07.[address] 98119- 9201 Jul, Plantar wart of right foot B07.0 [facility] [id number] [place] [address] 41968- 2323 Jun, [place] [address] 79027- 0885 Jun, Heartburn R12 ; Essential hypertension I10 ; Anxiety F41.9 ; Folliculitis L73.9 and Plantar wart of right foot B07.0 [place] [address] 86076- 2191 Jun, [facility] [address] 17155 -7017 May, Low back pain M54.5 and Other chronic pain G89.29 [place] [address] 41170- 6731 May, [place] [address] 80676- 3740 May, [place] [address] 62172- 2891 May, Heartburn R12 ; Bilateral low back pain without sciatica M54.5 ; Essential hypertension I10 ; Long-term use of high-risk medication Z79.899 ; Anxiety F41.9 ; Impacted cerumen of right ear H61.21 ; Folliculitis L73.9 ; High risk bisexual behavior Z72.53 and General medical exam Z00.00 [place] [id number] [place] [address] 46274- 0889 May, [place] [address] 57010- 9928 May, [place] [address] 10271- 9830 Mar, Acute nasopharyngitis J00 ; Acute intractable tension-type headache G44.201 and Cough R05 [place] [address] 78703- 9762 29 Jan, 2016 [facility] [address] [address] 29 Jan, 2016 Abscess L02.91 [facility] [id number] [place] [address] 74466 -3927 10 Jan, 2016 Urinary urgency R39.15 and Urinary tract infection without hematuria, site unspecified N39.0 [facility] [id number] [place] [address] 02530- 8665 Jan, [facility] [id number] [place] [address] 34937- 0074 Jan, [facility] [id number] [place] [address] 79513- 9866 Dec, [facility] [id number] [place] [address] 90643- 9443 Dec, Dermatofibroma D23.9 [facility] [id number] [place] [address] 35873- 1917 September, [facility] [id number] [place] [address] 77835- 1214 Aug, [facility] [id number] [place] [address] 07469- 4919 Aug, Pain in left knee M25.562 ; Heartburn R12 ; Bilateral low back pain without sciatica M54.5 ; Essential hypertension I10 ; Ingrown left big toenail L60.0 ; Chronic pain G89.29 ; Irritable bowel syndrome with constipation K58.9 and Skin infection L08.9 [facility] [id number] [place] [address] 22838- 3335 Aug, [facility] [id number] [place] [address] 61982- 9497 Jul, [facility] [id number] [place] [address] 09988- 4381 Jun, [facility] [id number] [place] [address] 32435- 6703 Jun, [facility] [id number] [place] [address] 14377- 6375 Jun, [facility] [id number] [place] [address] 32803- 1437 Jun, [facility] [id number] [place] [address] 05852- 1102 Jun, Upper respiratory infection J06.9 ; Bilateral low back pain without sciatica M54.5 and Headache R51 [facility] [id number] [place] [address] 90902- 6800 May, [facility] [id number] [place] [address] 51442- 6879 Apr, Bilateral low back pain without sciatica M54.5 ; Upper respiratory infection J06.9 and Yeast dermatitis B37.2 [facility] [id number] [place] [address] 47474- 5405 Apr, [facility] [address] 47391- 8411 Apr, [facility] [id number] [place] [address] 03267- 9570 Feb, [facility] [id number] [place] [address] 35536- 5279 Feb, [facility] [id number] [place] [address] 94017- 2863 Feb, [facility] [address] 42603- 0280 Feb, Essential hypertension I10 ; Heartburn R12 ; Irritable bowel syndrome without diarrhea K58.9 ; Bilateral low back pain, with sciatica presence unspecified M54.5 and Upper respiratory infection J06.9 [facility] [id number] [place] [address] 13048- 9002 Feb, [facility] [id number] [place] [address] 97205- 9668 Feb, Generalized anxiety disorder F41.1 and Grief F43.20 [place] [id number] [place] [address] 567203- 6785 Jan, [place] [address] 941492- 0408 Jan, Back pain 724.5 ; Upper respiratory infection 465.9 ; HTN ( hypertension) 401.9 and Dyspepsia 536.8 [place] [id number] [place] [address] 34190- 2974 Dec, [place] [id number] [place] [address] 40185- 5422 Nov, Back pain 724.5 ; Abdominal pain, bilateral lower quadrant 789.03 ; GERD (gastroesophageal reflux disease) 530.81 ; Upper respiratory infection 465.9 ; Dysuria 788.1 and HTN (hypertension) 401.9 [place] [id number] [place] [address] 72401- 7201 Nov, [place] [id number] [place] [address] 46816- 6702 Nov, [place] [id number] [place] [address] 14091- 9499 Nov, [facility] [id number] [place] [address] 98939- 4423 Nov, Cough 786.2 [place] [id number] [place] [address] 84228- 6386 Nov, Cough 786.2 [place] [id number] [place] [address] 24365- 1204 Oct, Unspecified episodic mood disorder 296.90 and Anxiety disorder, unspecified 300.00 [place] [id number] [place] [address] [place] [address]- 3306 Oct, Abdominal pain, left upper quadrant 789.02 ; Essential hypertension, benign 401.1 ; Irritable bowel syndrome 564.1 ; Abscess 682.9 ; Heartburn 787.1 ; Acute sinusitis, unspecified 461.9 ; Muscle spasm of back 724.8 ; Cough 786.2 and Skin tag 701.9 [facility] [id number] [place] [address] 45833- 2153 September, [facility] [id number] [place] [address] 86832- 7006 September, [facility] [id number] [place] [address] 88784- 2907 September, [facility] [id number] [place] [address] [id number]- 9785 Aug, [facility] [id number] [place] [address] 60920408- 5842 Aug, [facility] [id number] 8206 Jul, [facility] [id number] 9480 Jul, [facility] [id number] [address]- 7471 Jul, [facility] [id number] [address]- 1478 Jul, [facility] [address] [address]- 7896 Jul, [facility] [id number] [place] [address] 92499- 2106 Jul, [facility] [address] [address]- 9596 Jul, [facility] [id number] [place] [address] 08244- 7296 Jul, [facility] [place] [facility] [address] [id number] [place] [address]- 5464 Jul, [facility] [place] [facility] [address] [id number] [place] [address]- 8262 Jul, [facility] [place] [facility] [address] [id number] [place] [address]- 8674 Jul, [facility] [place] [facility] [address] [id number] [place] [address]- 3499 Jul, [facility] [place] [facility] [address] [id number] [place] [address]- 8285 Jul, [facility] [place] [facility] [address] [id number] [place] [address]- 9104 Jul, [facility] [place] [facility] [address] [id number] [place] [address]- 6676 Jul, [facility] [place] [facility] [address] [id number] [place] [address]- 5281 Jul, [facility] [place] [facility] [address] [id number] [place] [address]- 1825 Jul, [facility] [place] [facility] [address] [id number] [place] [address]- 4645 Jun, 2014 [facility] [place] [facility] [address] [id number] [place] [address]- 3758 Jun, 2014 [facility] [place] [facility] [address] [id number] [address]- 6226 Jun, 2014 [facility] [place] [facility] [address] [id number] [place] [address]- 6144 Jun, 2014 [facility] [place] [facility] [address] [id number] [place] [address]- 1106 Jun, 2014 [facility] [place] [facility] [address] [id number] [place] [address]- 6841 Jun, 2014 [facility] [place] [facility] [address] [id number] [place] [address]- 4391 Jun, 2014 [facility] [address] [id number] [place] [address]- 5516 Jun, [facility] [address] [id number] [place] [address]- 2896 Apr, [facility] [address] [id number] [place] 3376 Apr, [facility] [address] [id number] [place] [address]- 2397 Apr, [facility] [address] [id number] [place] [address]- 3375 Apr, [facility] [address] [id number] [place] [address]- 2260 Apr, [facility] [address] [id number] [place] [address]- 4601 Apr, [facility] [address] [id number] [place] [address]- 5035 Apr, [facility] [place] [facility] [address] [id number] [place] [address]- 6981 Apr, [facility] [address] [id number] [place] [address]- 0348 Apr, [facility] [place] [facility] [address] [id number] [place] [address]- 7070 Apr, [facility] [place] [facility] [address] [id number] [place] [address]- 8513 Apr, [facility] [place] [facility] [address] [id number] [place]- 6712 Apr, [facility] [place] [facility] [address] [id number] [place] 6766 Apr, [facility] [place] [facility] [address] [id number] [place]- 6603 Apr, [facility] [place] [facility] [address] [id number] [place] [address]- 1593 Apr, [facility] [place] [facility] [address] [id number] [place] [address]- 7481 Feb, [facility] [place] [facility] [address] [id number] [place]- 0886 Feb, [facility] [place] [facility] [address] [id number] [place] [address]- 0631 Feb, [facility] [place] [facility] [address] [id number] [place] [address]- 6414 Feb, [facility] [place] [facility] [address] [id number] [place] [address]- 0504 Feb, [facility] [place] [facility] [address] [id number] [place] [address]- 6903 Feb, [facility] [place] [facility] [address] [id number] [place] [address]- 2722 Jan, [facility] [place] [facility] [address] [id number] [place] [address]- 3408 Jan, [facility] [place] [facility] [address] [id number] [place] [address]- 5474 Jan, [facility] [place] [facility] [address] [id number] [place] [address]- 9290 Jan, [facility] [place] [facility] [address] [id number] [place] [address]- 4732 Jan, [facility] [place] [facility] [address] [id number] [place] [address]- 8783 Jan, [facility] [place] [facility] [address] [id number] [place] [address]- 5719 Dec, [facility] [place] [facility] [address] [id number] [place] [address]- 4894 Dec, [facility] [place] [facility] [address] [id number] [place] [address]- 8712 Dec, [facility] [place] [facility] [address] [id number] [place] [address]- 6916 Dec, [facility] [place] [facility] [address] [id number] [place] [address]- 6944 Nov, [facility] [place] [facility] [address] [id number] [place] [address]- 3942 Nov, [facility] [place] [facility] [address] [id number] [place] [address]- 2018 Nov, [facility] [place] [facility] [address] [id number] [place] [address]- 7272 Nov, [facility] [place] [facility] [address] [id number] [place] [address]- 7197 Nov, [facility] [place] [facility] [address] [id number] [place] [address]- 0729 Nov, [facility] [place] [facility] [address] [id number] [place] [address]- 6289 Nov, [facility] [place] [facility] [address] [id number] [place] [address]- 5058 Nov, [facility] [place] [facility] [address] [id number] [place] [address]- 1023 Oct, [facility] [place] [facility] [address] [id number] [place] [address]- 7740 Oct, [facility] [place] [facility] [address] [id number] [place] [address]- 0728 Oct, [facility] [place] [facility] [address] [id number] [place] [address]- 2668 Oct, [facility] [place] [facility] [address] [id number] [place] [address]- 9105 Oct, [facility] [place] [facility] [address] [id number] [place] [address]- 9067 Oct, [facility] [place] [facility] [address] [id number] [place] [address]- 7532 26 Oct, 2013 [facility] [place] [facility] [address] [id number] [place] [address]- 3720 Oct, [facility] [place] [facility] [address] [id number] [place] [address]- 9666 Oct, [facility] [place] [facility] [address] [id number] [place] [address]- 5609 Oct, [facility] [place] [facility] [address] [id number] [place] [address]- 2616 Oct, [facility] [place] [facility] [address] [id number] [place] [address]- 8551 Oct, [facility] [place] [facility] [address] [id number] [place] [address] 18 Oct, 2013 [facility] [place] [facility] [address] [id number] [place] [address] 18 Oct, 2013 [facility] [place] [facility] [address] [id number] [place] [address] 17 Oct, 2013 [facility] [place] [facility] [address] [id number] [place] [address] 17 Oct, 2013 [facility] [place] [facility] [address] [id number] [place] [address] 16 Oct, 2013 [facility] [place] [facility] [address] [id number] [place] [address] 16 Oct, 2013 [facility] [place] [facility] [address] [id number] [place] [address] 13 Oct, 2013 [facility] [place] [facility] [address] [id number] [place] [address] 13 Oct, 2013 [facility] [place] [facility] [address] [id number] [place] [address] 11 Oct, 2013 [facility] [place] [facility] [address] [id number] [place] [address] Oct, [facility] [place] [facility] [address] [id number] [place] [address] Oct, [facility] [place] [facility] [address] [id number] [place] [address] 8568 Oct, [facility] [place] [facility] [address] [id number] [place] [address] Oct, [facility] [place] [facility] [address] [id number] [place] [address] Oct, [facility] [place] [facility] [address] [id number] [place] [address]- [address] Oct, [facility] [place] [facility] [address] [id number] [place] [address] Oct, [facility] [place] [facility] [address] [id number] [place] [address]446 Oct, [facility] [place] [facility] [address] [id number] [place] [address] Oct, [facility] [place] [facility] [address] [id number] [place] [address] September, [facility] [place] [facility] [address] [id number] [place] [address]- [address] September, [facility] [place] [facility] [address] [id number] [place] [address] September, [facility] [place] [facility] [address] [id number] [address] September, [facility] [place] [facility] [address] [id number] [place] [address]- [address] September, [facility] [place] [facility] [address] [id number] [place] [address] 39[address] September, [facility] [place] [facility] [address] [id number] [place] [address] September, [facility] [place] [facility] [address] [id number] [place] [address] September, [facility] [address] [id number] [place] [address] September, [facility] [place] [facility] [address] [id number] [place] [address] September, [facility] [address] [id number] [place] [address] September, [facility] [place] [facility] [address] [id number] [place] [address] September, [facility] [address] [id number] [place] [address] September, [facility] [address] [id number] [place] [address]141 September, [facility] [address] [id number] [place] [address] 7040 September, [facility] [address] [id number] [place] [address]- 5697 September, [facility] [place] [facility] [address] [id number] [place] [address] September, [facility] [address] [id number] [place] [address]481 September, [facility] [place] [facility] [address] [id number] [place] [address] Aug, [facility] [place] [facility] [address] [id number] [place] [address] Aug, [facility] [place] [facility] [address] [id number] [place] [address] Aug, [facility] [place] [facility] [address] [id number] [place] [address] Aug, [facility] [place] [facility] [address] [id number] [place] [address]- [address] Aug, [facility] [place] [facility] [address] [id number] [place] [address]- [address] Aug, [facility] [place] [facility] [address] [id number] [place] [address] Jul, [facility] [place] [facility] [address] [id number] [place] [address]- [address]673 Jul, [facility] [place] [facility] [address] [id number] [place] [address]- [address] Jul, [facility] [place] [facility] [address] [id number] [place] [address]- 8588 Jul, [facility] [place] [facility] [address] [id number] [place] [address]- [address] Jun, [facility] [place] [facility] [address] [id number] [place] [address] Jun, [facility] [place] [facility] [address] [id number] [place] [address] Jun, [facility] [place] [facility] [address] [id number] [place] [address] 135[address] Jun, [facility] [place] [facility] [address] [id number] [place] [address] 37[address] Mar, [facility] [place] [facility] [address] [id number] [place] [address]- [address]876 14 Mar, 2013 [facility] [place] [facility] [address] [id number] [address] Mar, [facility] [place] [facility] [address] [id number] [place] [address] 2849 Mar, [facility] [place] [facility] [address] [id number] [place] [address] 3560 Feb, [facility] [place] [facility] [address] [id number] [place] [address] 3954 Feb, [facility] [place] [facility] [address] [id number] [place] [address] 9269 Feb, [facility] [address] [id number] [place] [address] 8456 Jan, [facility] [place] [facility] [address] [id number] [place] [address] 2768 Jan, [facility] [place] [facility] [address] [id number] [place] [address]- 6101 Jan, [facility] [place] [facility] [address] [id number] [place] [address]- 9275 Jan, [facility] [place] [facility] [address] [id number] [place] [address]- 0048 Dec, [facility] [place] [facility] [address] [id number] [place] [address]- 8598 Dec, [facility] [address] [id number] [place] [address]- 8226 Dec, [facility] [place] [facility] [address] [id number] [place] [address]- 9207 Dec, [facility] [place] [facility] [address] [id number] [place] [address]- 8312 Nov, [facility] [place] [facility] [address] [id number] [place] [address]- 7476 Nov, [facility] [place] [facility] [address] [id number] [place] [address]- 0602 Nov, [facility] [place] [facility] [address] [id number] [place] [address]- 0516 Nov, [facility] [place] [facility] [address] [id number] [place] [address]- 5783 Nov, [facility] [place] [facility] [address] [id number] [place] [address]- 4236 Nov, [facility] [place] [facility] [address] [id number] [place] [address] Oct, [facility] [place] [facility] [address] [id number] [place] [address]- 4896 27 Oct, 2012 [facility] [place] [facility] [address] [id number] [place] [address]- 8407 25 Oct, 2012 [facility] [place] [facility] [address] [id number] [place] [address]- 0924 21 Oct, 2012 [facility] [place] [facility] [address] [id number] [place] [address]- 1103 17 Oct, 2012 [facility] [place] [facility] [address] [id number] [place] [address]- 7717 16 Oct, 2012 [facility] [place] [facility] [address] [id number] [place] [address]- 8547 14 Oct, 2012 [facility] [place] [facility] [address] [id number] [place] [address]- 7001 13 Oct, 2012 [facility] [place] [facility] [address] [id number] [place] [address]- 5403 11 Oct, 2012 [facility] [place] [facility] [address] [id number] [place] [address]- 8627 Oct, [facility] [place] [facility] [address] [id number] [place] [address]- 3143 September, [facility] [place] [facility] [address] [id number] [place] [address]- 7057 September, [facility] [place] [facility] [address] [id number] [place] [address]- 5776 September, [facility] [place] [facility] [address] [id number] [place] [address]- 8914 Aug, [facility] [place] [facility] [address] [id number] [place] [address]- 4762 Aug, [facility] [place] [facility] [address] [id number] [place] [address] Aug, [facility] [place] [facility] [address] [id number] [place] [address]- 7353 Aug, [facility] [address] [id number] [place] [address]- 3289 30 Jul, 2012 [facility] [place] [facility] [address] [id number] [place] [address]- 5366 Jul, [facility] [address] [id number] [place] [address]- 5163 Jul, [facility] [place] [facility] [address] [id number] [place] [address]- 2139 Jul, [facility] [address] [id number] [place] [address]- 2137 Jul, [facility] [place] [facility] [address] [id number] [place] [address]- 5959 Jul, [facility] [place] [facility] [address] [id number] [place] [address]- 6848 May, [facility] [place] [facility] [address] [id number] [place] [address]- 7621 May, [facility] [address] [id number] [place] [address]- 6105 May, [facility] [place] [facility] [address] [id number] [place] [address]- 4828 May, [facility] [place] [facility] [address] [id number], [place] [address]- 0305 May, [facility] [place] [facility] [address] [id number], [place] [address]- 7412 May, [facility] [place] [facility] [address] [id number] [place] [address]- 1489 May, [facility] [place] [facility] [address] [id number], [place] [address] 0103 18 May, 2012 [facility] [place] [facility] [address] [id number] [place] [address]- 2790 May, [facility] [place] [facility] [address] [id number] [place] [address]- 5027 17 May, 2012 [facility] [address] [id number] [place] [address]- 5608 May, [facility] [place] [facility] [address] [id number] [place] [address]- 7721 Apr, [facility] [place] [facility] [address] [id number] [place] [address]- 4569 Apr, [facility] [place] [facility] [address] [id number] [place] [address]- 4878 Apr, [facility] [place] [facility] [address] [id number] [place] [address]- 2424 Apr, [facility] [place] [facility] [address] [id number] [place] [address]- 0959 Apr, [facility] [address] [id number] [place] [address]- 8881 Apr, [facility] [place] [facility] [address] [id number] [place] [address]- 7686 Mar, [facility] [place] [facility] [address] [id number] [place] [address]- 8801 Mar, [facility] [place] [facility] [address] [id number] [place] [address]- 8640 Mar, [facility] [place] [facility] [address] [id number] [place] [address]- 5758 Mar, [facility] [place] [facility] [address] [id number] [place] [address]- 1776 Mar, [facility] [place] [facility] [address] [id number] [place] [address]- 2983 Mar, [facility] [place] [facility] [address] [id number] [place] [address]- 4498 Mar, [facility] [place] [facility] [address] [id number] [place] [address]- 9166 Mar, [facility] [place] [facility] [address] [id number] [place] [address]- 5186 Feb, [facility] [place] [facility] [address] [id number] [place] [address]- 4469 23 Feb, 2012 [facility] [place] [facility] [address] [id number] [place] [address]- 5258 16 Feb, 2012 [facility] [place] [facility] [address] [id number] [place] [address]- 8154 15 Feb, 2012 [facility] [place] [facility] [address] [id number] [place] [address]- 4549 15 Feb, 2012 [facility] [place] [facility] [address] [id number] [place] [address]- 7788 13 Feb, 2012 [facility] [place] [facility] [address] [id number] [place] [address]- 2325 Feb, [facility] [place] [facility] [address] [id number] [place] [address]- 7293 Feb, [facility] [place] [facility] [address] [id number] [place] [address]- 9966 Feb, [facility] [place] [facility] [address] [id number] [place] [address]- 6881 Feb, [facility] [place] [facility] [address] [id number] [place] [address]- 6055 Feb, [facility] [place] [facility] [address] [id number], [place] [address]- 5481 Feb, [facility] [place] [facility] [address] [id number] [place] [address]- 5905 Feb, [facility] [place] [facility] [address] [id number] [place] [address]- 1336 Feb, [facility] [place] [facility] [address] [id number], [place] [address]- 2307 Feb, [facility] [place] [facility] [address] [id number], [place] [address]- 6033 Feb, [facility] [place] [facility] [address] [id number] [place] [address]- 0671 Feb, [facility] [place] [facility] [address] [id number] [place] [address]- 5876 Feb, [facility] [place] [facility] [address] [id number] [place] [address]- 7256 19 Jan, 2012 [facility] [place] [facility] [address] [id number] [place] [address] 2546 13 Jan, 2012 [facility] [place] [facility] [address] [id number] [place] [address]- 7554 11 Jan, 2012 [facility] [place] [facility] [address] [id number] [place] [address]- 7148 10 Jan, 2012 [facility] [place] [facility] [address] [id number] [place] [address]- 8850 05 Jan, 2012 [facility] [place] [facility] [address] [id number] [place] [address]- 1564 Dec, [facility] [place] [facility] [address] [id number] [place] [address]- 9804 Dec, [facility] [place] [facility] [address] [id number] [place] [address]- 0966 Dec, [facility] [place] [facility] [address] [id number] [place] [address]- 2307 Dec, [facility] [place] [facility] [address] [id number] [place] [address]- 4848 Dec, [facility] [place] [facility] [address] [id number] [place] [address]- 7932 Dec, [facility] [place] [facility] [address] [id number] [place] [address]- 2908 Nov, [facility] [place] [facility] [address] [id number] [place] [address]- 3488 Nov, [facility] [place] [facility] [address] [id number] [place] [address]- 5396 Nov, [facility] [address] [id number] [place] [address]- 1097 Nov, [facility] [address] [id number] [place] [address] 2546 Nov, [facility] [address] [id number] [place] [address]- 5596 Oct, [facility] [address] [id number] [place] [address]- 0489 Oct, [facility] [address] [id number] [place] [address]- 5095 Oct, [facility] [address] [id number] [place] [address]- 6906 September, [facility] [address] [id number] [place] [address]- 9286 September, [facility] [address] [id number] [place] [address]- 3815 September, [facility] [address] [id number] [place] [address]- 8176 September, [facility] [address] [id number] [place] [address]- 9779 September, [facility] [address] [id number] [place] [address]- 6106 September, [facility] [address] [id number] [place] [address]- 2449 Aug, [facility] [place] [facility] [address] [id number] [place] [address]- 4796 Aug, [facility] [place] [facility] [address] [id number] [place] [address]- 1476 Aug, [facility] [address] [id number] [place] [address]- 0272 Jun, [facility] [address] [id number] [place] [address]- 4679 Jun, [facility] [place] [facility] [address] [id number] [place] [address]- 6936 Jun, [facility] [place] [facility] [address] [id number] [place] [address]- 1010 Jun, [facility] [place] [facility] [address] [id number] [place] [address]- 8824 May, [facility] [address] [id number] [place] [address]- 5386 May, [facility] [place] [facility] [address] [id number] [place] [address]- 6694 May, [facility] [address] [id number] [place] [address]- 7333 May, [facility] [place] [facility] [address] [id number] [place] [address]- 8776 May, [facility] [address] [id number] [place] [address]- 3029 Apr, [facility] [place] [facility] [address] [id number] [place] [address]- 7609 Apr, [facility] [place] [facility] [address] [id number] [place] [address]- 5379 Apr, [facility] [place] [facility] [address] [id number], [place] [address]- 0429 Apr, [facility] [place] [facility] [address] [id number] [place] [address]- 3717 Apr, [facility] [place] [facility] [address] [id number] [place] [address]- 2016 16 Apr, 2011 [facility] [place] [facility] [address] [id number] [place] [address]- 2988 Apr, [facility] [place] [facility] [address] [id number] [place] [address]- 3693 Mar, [facility] [place] [facility] [address] [id number] [place] [address]- 5742 Mar, [facility] [place] [facility] [address] [id number] [place] [address]- 8406 Mar, [facility] [place] [facility] [address] [id number] [place] [address]- 7607 Feb, [facility] [place] [facility] [address] [id number] [place] [address]- 5140 Feb, [facility] [place] [facility] [address] [id number] [place] [address]- 1126 Feb, [facility] [place] [facility] [address] [id number] [place] [address]- 7684 Feb, [facility] [place] [facility] [address] [id number] [place] [address]- 5693 18 Feb, 2011 [facility] [place] [facility] [address] [id number] [place] [address]- 6839 17 Feb, 2011 [facility] [place] [facility] [address] [id number] [place] [address]- 3654 Jan, [facility] [place] [facility] [address] [id number] [place] [address]- 1811 Jan, [facility] [place] [facility] [address] [id number] [place] [address]- 0040 September, [facility] [place] [facility] [address] [id number] [place] [address]- 8348 Jun, [facility] [place] [facility] [address] [id number] [place] 7223 Apr, [facility] [place] [facility] [address] [id number] [place] [address]- 7349 Apr, [facility] [place] [facility] [address] [id number] [place] [address]25 Apr, [facility] [address] [id number], [place] [address]- 3981 Apr, [facility] [id number] [address] Apr, [facility] [id number], [place] [address]- 0496 Mar, [facility] [address] [facility] [id number] 1250 Mar, [facility] [address] [facility] [id number] 0374 Mar, [facility] [id number], [place] [address]- 3452 Mar, [facility] [id number] 3384 Feb, [facility] [id number], [place] [address]- 6996 Jan, [facility] [id number], [place] [address]- 0349 Mar, [facility] [address] [id number] 8741 Jan, [facility] [address] [id number], [place] [address]- 7212 Oct, [facility] [address] [id number], [place] [address]- 4398 Apr, IMMUNIZATIONS No Known Immunizations SOCIAL HISTORY Never Assessed REASON FOR VISIT Refill request PLAN OF CARE VITAL SIGNS MEDICATIONS Medication Instructions Dosage Frequency Start Date End Date Duration Status Flexeril 10 mg Orally 2 times a day s needed 1 tablet Active RESULTS No Results PROCEDURES No Known [...]
--- OUTSIDE RECORDS SUMMARY | 2018-03-22 21:48 | XMS REPORT ---
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 Name Role Phone DANITZA BRITANY Unavailable PROBLEMS Type Condition ICD9-CM Code MBM87-ZO Code Onset Dates Condition Status SNOMED Code Problem Other chronic pain G89.29 Active 02229905 Problem Pain in left foot M79.672 Active 477703116145635 Problem Plantar wart of right foot B07.0 Active 13777728 Problem Obesity (BMI 30-39.9) E66.9 Active 949704132 Problem Heartburn R12 Active 26369789 Problem Rhinosinusitis J32.9 Active 50050048 Problem Other obesity due to excess calories E66.09 Active 745548946 Problem Pain in right foot M79.671 Active [id number] Problem Alternating constipation and diarrhea R19.8 Active 330748800 Problem Acute non-recurrent maxillary sinusitis J01.00 Active 54863540 Problem Essential hypertension I10 Active 17118000 Problem Bilateral low back pain without sciatica M54.5 Active 504436332 Problem Irritable bowel syndrome without diarrhea K58.9 Active 60257951 Problem Bilateral low back pain, with sciatica presence unspecified M54.5 Active 156581235 Problem High risk bisexual behavior Z72.53 Active 849242009 Problem Long-term use of high-risk medication Z79.899 Active 538091456 Problem Pre-diabetes R73.03 Active 821662626 Problem Impacted cerumen of right ear H61.21 Active 30708834 Problem Anxiety F41.9 Active 21575928 Problem Folliculitis L73.9 Active 75373982 ALLERGIES Substance Reaction Event Type Date Status Penicillin V Potassium anaphylaxis Drug Allergy Feb, Active surgical tape "tears skin off" Non Drug Allergy Feb, Active ENCOUNTERS Encounter Location Date Diagnosis [facility] [address] [facility] [id number] [place] [address] 16001- 3517 Aug, [facility] [address] [place] [id number] [place] [address] 71120- 4956 Jul, Bilateral low back pain without sciatica M54.5 [facility] [id number] [place] [address] 07971- 2192 Jun, [facility] [id number] [place] [address] 16557- 3090 Jun, [facility] [id number] [place] [address] 47236- 2028 Jun, [facility] [address] 52055- 8543 May, [facility] [id number] [place] [address] 45650- 3631 May, Ingrown left greater toenail L60.0 [facility] [id number] [place] [address] 15654- 8750 May, [facility] [id number] [place] [address] 22966 -1052 May, Influenza A J10.1 ; Fever R50.9 and Body aches R52 [facility] [id number] [place] [address] 49558- 4043 Apr, [facility] [id number] [place] [address] 49816- 9956 Apr, [facility] [id number] [place] [address] 45155- 8597 Apr, [facility] [id number] [place] [address] 36492- 9180 Apr, Abscess L02.91 and Obesity (BMI 30-39.9) E66.9 [facility] [id number] [place] [address] 62245- 8382 Apr, [facility] [id number] [place] [address] 06167- 6167 Apr, [place] [address] 10834- 8426 Mar, Acute non-recurrent maxillary sinusitis J01.00 [place] [address] 87218- 8712 Feb, Heartburn R12 [place] [address] 25505- 3782 Feb, Heartburn R12 ; Low back pain M54.5 ; Essential hypertension I10 ; Bilateral low back pain without sciatica M54.5 ; Anxiety F41.9 ; Pre-diabetes R73.03 ; Other obesity due to excess calories E66.09 ; Alternating constipation and diarrhea R19.8 ; Dyspepsia R10.13 ; Generalized abdominal pain R10.84 ; Rhinosinusitis J32.9 and Boil L02.92 [place] [address] 78708- 9817 Jan, Heartburn R12 [place] [address] [id number] [place] [address] 80515- 3134 Jan, [place] [address] 21230- 1994 Jan, [place] [address] [place] [id number] [place] [address] 74147- 5761 Jan, Acute seasonal allergic rhinitis due to pollen J30.1 and Irritable bowel syndrome without diarrhea K58.9 [place] [id number] [place] [address] 46196- 9947 Dec, Low back pain M54.5 and Acute cystitis with hematuria N30.01 [place] [address] [id number] [place] [address] 32583- 9860 Dec, Low back pain M54.5 and Acute cystitis with hematuria N30.01 [place] [address] 73622- 7679 Dec, Heartburn R12 ; Essential hypertension I10 ; Acute non- recurrent maxillary sinusitis J01.00 ; Bilateral low back pain without sciatica M54.5 ; Anxiety F41.9 ; Pre-diabetes R73.03 ; Pain in right foot M79.671 ; Pain in left foot M79.672 ; Other obesity due to excess calories E66.09 and Acute cystitis with hematuria N30.01 [place] [address] 75487- 6740 Dec, Bilateral low back pain without sciatica M54.5 ; Acute non- recurrent maxillary sinusitis J01.00 and Pre-diabetes R73.03 [place] [address] 76688- 0594 Oct, [facility] [address] [address]26 -2184 Aug, [facility] [place] [address] 73526 -7338 Aug, Acute vaginitis N76.0 ; Urinary frequency R35.0 ; Screen for STD (sexually transmitted disease) Z11.3 and Abscess L02.91 [place] [address] 37437- 4666 Aug, Plantar wart of right foot B07.0 [place] [address] 12972- 4409 Jul, Plantar wart of right foot B07.0 [place] [address] 55432- 2257 Jun, [place] [address] 30381- 3506 Jun, Heartburn R12 ; Essential hypertension I10 ; Anxiety F41.9 ; Folliculitis L73.9 and Plantar wart of right foot B07.0 [place] [address] 99773- 5088 Jun, [facility] [id number] [place] [address] 45822 -4506 May, Low back pain M54.5 and Other chronic pain G89.29 [place] [address] 60987- 5575 May, [place] [address] 63907- 0038 May, [place] [address] 99462- 9977 May, Heartburn R12 ; Bilateral low back pain without sciatica M54.5 ; Essential hypertension I10 ; Long-term use of high-risk medication Z79.899 ; Anxiety F41.9 ; Impacted cerumen of right ear H61.21 ; Folliculitis L73.9 ; High risk bisexual behavior Z72.53 and General medical exam Z00.00 [place] [address] 78094- 0989 May, [place] [address] 39232- 4992 May, [place] [address] 00806- 9147 Mar, Acute nasopharyngitis J00 ; Acute intractable tension-type headache G44.201 and Cough R05 [place] [address] [place] [id number] [place] [address] 70615- 3182 Jan, [facility] [address] [id number] [place] [address] 90620 -3569 Jan, Abscess L02.91 [facility] [place] [address] 62907 -0144 Jan, Urinary urgency R39.15 and Urinary tract infection without hematuria, site unspecified N39.0 [place] [address] 59989- 7222 Jan, [facility] [id number] [place] [address] 84302- 4429 Jan, [facility] [id number] [place] [address] 78947- 6182 Dec, [facility] [id number] [place] [address] 99987- 5441 Dec, Dermatofibroma D23.9 [facility] [id number] [place] [address] 88099- 8288 September, [facility] [id number] [place] [address] 67107- 3884 Aug, [facility] [id number] [place] [address] 91624- 0971 Aug, Pain in left knee M25.562 ; Heartburn R12 ; Bilateral low back pain without sciatica M54.5 ; Essential hypertension I10 ; Ingrown left big toenail L60.0 ; Chronic pain G89.29 ; Irritable bowel syndrome with constipation K58.9 and Skin infection L08.9 [facility] [id number] [place] [address] 18484- 3291 Aug, [facility] [id number] [place] [address] 20395- 5143 Jul, [facility] [id number] [place] [address] 98055- 5344 Jun, [facility] [id number] [place] [address] 29871- 0725 Jun, [facility] [id number] [place] [address] 72942- 3335 Jun, [facility] [id number] [place] [address] 34045- 7845 Jun, [facility] [id number] [place] [address] 47492- 6144 Jun, Upper respiratory infection J06.9 ; Bilateral low back pain without sciatica M54.5 and Headache R51 [facility] [address] [id number] [place] [address] 89176- 6001 May, [facility] [id number] [place] [address] 70459- 6492 Apr, Bilateral low back pain without sciatica M54.5 ; Upper respiratory infection J06.9 and Yeast dermatitis B37.2 [facility] [id number] [place] [address] 80210- 2215 Apr, [facility] [address] 85084- 4793 Apr, [facility] [address] [id number] [place] [address] 43628- 6392 Feb, [facility] [address] 45446- 1938 Feb, [facility] [address] [place] [id number] [place] [address] 22533- 8496 Feb, [facility] [address] [id number] [place] [address] 29304- 9905 Feb, Essential hypertension I10 ; Heartburn R12 ; Irritable bowel syndrome without diarrhea K58.9 ; Bilateral low back pain, with sciatica presence unspecified M54.5 and Upper respiratory infection J06.9 [facility] [address] [id number] [place] [address] 03745- 2215 Feb, [facility] [address] [place] [id number] [place] [address] 57718- 4767 Feb, Generalized anxiety disorder F41.1 and Grief F43.20 [facility] [address] [place] [id number] [place] [address] 60612- 2385 Jan, [facility] [address] [place] [id number] [place] [address] 38895- 1834 Jan, Back pain 724.5 ; Upper respiratory infection 465.9 ; HTN ( hypertension) 401.9 and Dyspepsia 536.8 [place] [id number] [place] [address] 28407- 2798 Dec, [facility] [address] [id number] [place] [address] 28196- 6248 Nov, Back pain 724.5 ; Abdominal pain, bilateral lower quadrant 789.03 ; GERD (gastroesophageal reflux disease) 530.81 ; Upper respiratory infection 465.9 ; Dysuria 788.1 and HTN (hypertension) 401.9 [facility] [address] [place] [id number] [place] [address] 39391- 4229 Nov, [place] [address] [place] [id number] [place] [address] 41073- 3630 Nov, [place] [address] [id number] [place] [address] 16292- 1029 Nov, [place] [address] [place] [id number] [place] [address] 66871- 8470 Nov, Cough 786.2 [place] [address] [place] [id number] [place] [address] 62846- 1365 Nov, Cough 786.2 [place] [id number] [place] [address] 17258- 0177 Oct, Unspecified episodic mood disorder 296.90 and Anxiety disorder, unspecified 300.00 [place] [address] [place] [id number] [place] [address] 02714- 0585 Oct, Abdominal pain, left upper quadrant 789.02 ; Essential hypertension, benign 401.1 ; Irritable bowel syndrome 564.1 ; Abscess 682.9 ; Heartburn 787.1 ; Acute sinusitis, unspecified 461.9 ; Muscle spasm of back 724.8 ; Cough 786.2 and Skin tag 701.9 [place] [address] [place] [address] 65916- 8291 September, [place] [address] [place] [id number] [place] [address]- 7276 September, [facility] [address] [id number] [place] [address]- 7220 September, [facility] [place] [facility] [address] [id number] [place] [address]- 7678 Aug, [facility] [address] [id number] [place] [address]- 5324 Aug, [facility] [place] [facility] [address] [id number] [place] [address]- 8414 30 Jul, 2014 [facility] [place] [facility] [address] [id number] [place] [address]- 7654 30 Jul, 2014 [facility] [place] [facility] [address] [id number] [place] [address]- 4863 Jul, [facility] [place] [facility] [address] [id number] [place] [address]- 5979 Jul, [facility] [place] [facility] [address] [id number] [place] [address]- 2113 Jul, [facility] [place] [facility] [address] [id number] [place] [address]- 9471 Jul, [facility] [address] [id number] [place] [address]- 7092 Jul, [facility] [place] [facility] [address] [id number] [place] [address]- 1646 Jul, [facility] [place] [facility] [address] [id number] [place] [address]- 4914 Jul, [facility] [place] [facility] [address] [id number] [place] [address]- 9119 Jul, [facility] [place] [facility] [address] [id number] [place] [address]- 6456 Jul, [facility] [place] [facility] [address] [id number] [place] [address]- 6106 Jul, [facility] [place] [facility] [address] [id number] [place] [address]- 7772 Jul, [facility] [place] [facility] [address] [id number] [place] [address]- 4118 Jul, [facility] [place] [facility] [address] [id number] [place] [address]- 3736 Jul, [facility] [place] [facility] [address] [id number] [place] [address]- 5565 Jul, [facility] [place] [facility] [address] [id number] [place] [address]- 9110 Jul, [facility] [place] [facility] [address] [id number] [place] [address]- 9154 Jun, 2014 [facility] [place] [facility] [address] [facility] [id number] [place] [address]- 2649 Jun, [facility] [place] [facility] [address] [facility] [id number] [place] [address]- 0029 Jun, 2014 [facility] [place] [facility] [address] [id number] [place] [address]- 4387 Jun, 2014 [facility] [place] [facility] [address] [facility] [id number] [place] [address]- 6357 Jun, 2014 [facility] [place] [facility] [address] [facility] [id number] [place] [address]- 5513 Jun, 2014 [facility] [place] [facility] [address] [id number] [address]- 8605 Jun, [facility] [place] [facility] [address] [id number] [place] [address]- 3319 Jun, [facility] [place] [facility] [address] [facility] [id number] [place] [address]- 4356 Apr, [facility] [place] [facility] [address] [facility] [id number] [place] [address]- 5081 Apr, [facility] [place] [facility] [address] [id number] [place] [address]- 4941 23 Apr, 2014 [facility] [address] [id number] [place] [address]- 5832 Apr, [facility] [place] [facility] [address] [id number] [place]- 6206 18 Apr, 2014 [facility] [address] [id number] [place]- 9284 18 Apr, 2014 [facility] [place] [facility] [address] [id number] [place] [address]- 1970 15 Apr, 2014 [facility] [address] [id number] [place] [address]- 0668 15 Apr, 2014 [facility] [address] [id number] [place] [address]- 4023 Apr, [facility] [place] [facility] [address] [id number] [place] [address]- 3106 Apr, [facility] [address] [id number] [place] [address]- 5038 Apr, [facility] [place] [facility] [address] [id number] [place] [address]- 2011 Apr, [facility] [address] [id number] [place] [address]- 6577 Apr, [facility] [place] [facility] [address] [id number] [place] [address]- 3562 Apr, [facility] [place] [facility] [address] [id number] [place] 3934 Apr, [facility] [place] [facility] [address] [id number] [place] [address]- 2834 Feb, [facility] [place] [facility] [address] [id number] [place] [address]- 2200 Feb, [facility] [place] [facility] [address] [id number] [place] [address]- 2721 Feb, [facility] [place] [facility] [address] [id number] [place] [address]- 3596 Feb, [facility] [place] [facility] [address] [id number] [place] [address]- 3205 Feb, [facility] [place] [facility] [address] [id number] [place] [address]- 5964 Feb, [facility] [place] [facility] [address] [id number] [place] [address]- 7696 Jan, 2013 [facility] [place] [facility] [address] [id number] [place] [address]- 5206 Jan, 2013 [facility] [place] [facility] [address] [id number] [place] [address]- 8408 Jan, 2013 [facility] [place] [facility] [address] [id number] [place] [address]- 5807 Jan, 2013 [facility] [place] [facility] [address] [id number] [place] [address]- 7452 Jan, 2013 [facility] [place] [facility] [address] [id number] [place] [address]- 1530 Jan, [facility] [place] [facility] [address] [id number] [place] [address]- 1033 Dec, [facility] [place] [facility] [address] [id number] [place] [address]- 5995 Dec, [facility] [place] [facility] [address] [id number] [place] [address]- 3923 Dec, [facility] [place] [facility] [address] [id number] [place] [address]- 3742 Dec, [facility] [place] [facility] [address] [id number] [place] [address]- 0781 Nov, [facility] [place] [facility] [address] [id number] [place] [address]- 3728 Nov, [facility] [place] [facility] [address] [id number] [place] [address]- 7268 Nov, [facility] [place] [facility] [address] [id number] [place] [address]- 0139 Nov, [facility] [place] [facility] [address] [id number] [place] [address]- 5283 Nov, [facility] [place] [facility] [address] [id number] [place] [address]- 2059 Nov, [facility] [place] [facility] [address] [id number] [place] [address]- 5545 Nov, [facility] [place] [facility] [address] [id number] [place] [address]- 0996 Nov, [facility] [place] [facility] [address] [id number] [place] [address]- 8244 Oct, [facility] [place] [facility] [address] [id number] [place] [address]- 3399 Oct, [facility] [place] [facility] [address] [id number] [place] [address]- 1273 Oct, [facility] [place] [facility] [address] [id number] [place] [address]- 4408 Oct, [facility] [place] [facility] [address] [id number] [place] [address]- 7562 Oct, [facility] [place] [facility] [address] [id number] [place] [address]- 6930 Oct, [facility] [place] [facility] [address] [id number] [place] [address]- 9079 Oct, [facility] [place] [facility] [address] [id number] [place] [address]- 2181 Oct, [facility] [place] [facility] [address] [id number] [place] [address]- 4761 Oct, [facility] [place] [facility] [address] [id number] [place] [address]- 3267 Oct, [facility] [place] [facility] [address] [id number] [place] [address]- 2061 23 Oct, 2013 [facility] [place] [facility] [address] [id number] [place] [address]- 4418 23 Oct, 2013 [facility] [place] [facility] [address] [id number] [place] [address]- 2264 18 Oct, 2013 [facility] [place] [facility] [address] [id number] [place] [address]- 9580 18 Oct, 2013 [facility] [place] [facility] [address] [id number] [place] [address]- 7198 17 Oct, 2013 [facility] [place] [facility] [address] [id number] [place] [address] 17 Oct, 2013 [facility] [place] [facility] [address] [id number] [place] [address] 16 Oct, 2013 [facility] [place] [facility] [address] [id number] [place] [address] 16 Oct, 2013 [facility] [place] [facility] [address] [id number] [place] [address] Oct, [facility] [place] [facility] [address] [id number] [place] [address] Oct, [facility] [place] [facility] [address] [id number] [place] [address] Oct, [facility] [place] [facility] [address] [id number] [place] [address] Oct, [facility] [place] [facility] [address] [id number] [place] [address] 09 Oct, 2013 [facility] [place] [facility] [address] [id number] [place] [address] Oct, [facility] [place] [facility] [address] [id number] [place] [address] 06 Oct, 2013 [facility] [place] [facility] [address] [id number] [place] [address] Oct, [facility] [place] [facility] [address] [id number] [place] [address] 8467 Oct, [facility] [place] [facility] [address] [id number] [place] [address] Oct, [facility] [place] [facility] [address] [id number] [place] [address] Oct, [facility] [place] [facility] [address] [id number] [place] [address] Oct, [facility] [place] [facility] [address] [id number] [place] [address] September, [facility] [place] [facility] [address] [id number] [place] [address] 16[address] September, [facility] [place] [facility] [address] [id number] [place] [address]- [address] September, [facility] [place] [facility] [address] [id number] [place] [address]- [address] September, [facility] [place] [facility] [address] [id number] [place] [address] 140[address] September, [facility] [place] [facility] [address] [id number] [place] [address] 1042 September, [facility] [place] [facility] [address] [id number] [place] [address]- [address] September, [facility] [place] [facility] [address] [id number] [place] [address]- [address]885 September, [facility] [place] [facility] [address] [id number] [place] [address]- [address] September, [facility] [place] [facility] [address] [id number] [place] [address] 74[address] September, [facility] [place] [facility] [address] [id number] [place] [address]- 6[address] September, [facility] [place] [facility] [address] [id number] [place] [address]- 7636 September, [facility] [address] [id number] [place] [address]- 90[address] September, [facility] [place] [facility] [address] [id number] [place] [address]758 September, [facility] [place] [facility] [address] [id number] [place] [address] 9[address] September, [facility] [place] [facility] [address] [id number] [place] [address]- [address] September, [facility] [place] [facility] [address] [id number] [place] [address] September, [facility] [place] [facility] [address] [id number] [place] [address] September, [facility] [address] [id number] [place] [address] Aug, [facility] [place] [facility] [address] [id number] [place] [address] Aug, [facility] [place] [facility] [address] [id number] [place] [address] 40[address] Aug, [facility] [place] [facility] [address] [id number] [place] [address] 79[address] Aug, [facility] [place] [facility] [address] [id number] [place] [address] Aug, [facility] [place] [facility] [address] [id number] [place] [address] Aug, [facility] [place] [facility] [address] [id number] [place] [address] Jul, [facility] [place] [facility] [address] [id number] [place] [address] Jul, [facility] [facility] [address] [id number] [place] [address] Jul, [facility] [place] [facility] [address] [id number] [place] [address] Jul, [facility] [place] [facility] [address] [id number] [place] [address] 1281 Jun, [facility] [place] [facility] [address] [id number] [place] [address]397 Jun, [facility] [place] [facility] [address] [id number] [place] [address]- 5234 Jun, [facility] [place] [facility] [address] [id number] [place] [address]- 0085 Jun, [facility] [place] [facility] [address] [id number] [place] [address] 8994 Mar, [facility] [place] [facility] [address] [id number] [place] [address] 0210 Mar, [facility] [place] [facility] [address] [id number] [place] [address]- 0206 Mar, [facility] [place] [facility] [address] [id number] [place] [address] 7841 Mar, [facility] [place] [facility] [address] [id number] [place] [address] 1670 Feb, [facility] [place] [facility] [address] [id number] [place] [address]- 5492 Feb, [facility] [place] [facility] [address] [id number] [address] 79[address] Feb, [facility] [place] [facility] [address] [id number] [place] [address]- 0[address] Jan, [facility] [place] [facility] [address] [id number] [place] [address]- 5690 20 Jan, 2013 [facility] [place] [facility] [address] [id number] [place] [address] 12 Jan, 2013 [facility] [place] [address] [id number] [place] [address] 3839 Jan, [facility] [place] [facility] [address] [id number] [place] [address]- 3791 Dec, [facility] [place] [facility] [address] [id number] [place] [address]- 0431 Dec, [facility] [place] [address] [id number] [place] [address]- 1507 Dec, [facility] [place] [address] [id number] [place] [address]- 9065 Dec, [facility] [place] [facility] [address] [id number] [place] [address]- 1313 Nov, [facility] [address] [id number] [place] [address]- 6122 Nov, [facility] [address] [id number] [place] [address]- 5666 Nov, [facility] [place] [address] [id number] [place] [address]- 9898 Nov, [facility] [address] [id number] [place] [address]- 8838 Nov, [facility] [address] [id number] [place] [address]- 4161 Nov, [facility] [place] [address] [id number] [place] [address]- 4800 Oct, [facility] [address] [id number] [place] [address]- 8266 Oct, [facility] [address] [id number] [place] [address]- 2720 Oct, [facility] [address] [id number] [place] [address]- 1678 Oct, [facility] [address] [id number] [place] [address]- 0774 Oct, [facility] [address] [id number] [place] [address]- 0811 16 Oct, 2012 [facility] [address] [id number] [place] [address]- 3039 14 Oct, 2012 [facility] [address] [id number] [place] [address]- [address] 13 Oct, 2012 [facility] [address] [id number] [place] [address]- 7225 11 Oct, 2012 [facility] [address] [id number] [place] [address]- 6255 07 Oct, 2012 [facility] [address] [id number] [place] [address]- 3330 September, [facility] [address] [id number] [place] [address]- 0923 September, [facility] [address] [id number] [place] [address]- 8550 September, [facility] [address] [id number] [place] [address]- 3867 Aug, [facility] [address] [id number] [place] [address]- 7567 Aug, [facility] [address] [id number] [place] [address]- 5464 Aug, [facility] [address] [id number] [place] [address]- 8909 Aug, [facility] [address] [id number] [place] [address]- 5809 30 Jul, 2012 [facility] [address] [id number] [place] [address]- 2995 Jul, [facility] [address] [id number] [place] [address]- 1016 Jul, [facility] [address] [id number] [place] [address]- 6271 Jul, [facility] [address] [id number] [place] [address]- 5484 Jul, [facility] [address] [id number] [place] [address]- 5749 Jul, [facility] [address] [id number] [place] [address]- 9046 May, [facility] [address] [id number] [place] [address]- 3915 May, [facility] [address] [id number] [place] [address]- 5921 May, [facility] [address] [id number] [place] [address]- 2016 May, [facility] [address] [id number] [place] [address]- 4362 May, [facility] [address] [id number] [place] [address]- 7654 May, [facility] [address] [id number] [place] [address]- 6944 May, [facility] [address] [id number] [place] [address]- 8648 May, [facility] [address] [id number] [place] [address]- 5367 May, [facility] [address] [id number] [address]- 0960 May, [facility] [address] [id number] [place] [address]- 4036 16 May, 2012 [facility] [address] [id number] [place] [address]- 6126 Apr, [facility] [address] [id number] [place] [address]- 1761 Apr, [facility] [address] [id number] [place] [address]- 1636 Apr, [facility] [address] [id number] [place] [address]- 5154 Apr, [facility] [address] [id number] [place] [address]- 5916 Apr, [facility] [address] [id number] [place] [address]- 8618 Apr, [facility] [address] [id number] [place] [address]- 3562 Mar, [facility] [address] [id number] [place] [address]- 2854 Mar, [facility] [address] [id number] [place] [address]- 0293 Mar, [facility] [address] [id number] [place] [address]- 6974 Mar, [facility] [address] [id number] [place] [address]- 1573 Mar, [facility] [address] [id number] [place] [address]- 3646 Mar, [facility] [address] [facility] [id number] [place] [address]- 5372 Mar, [facility] [address] [id number] [place] [address]- 7835 05 Mar, 2012 [facility] [address] [id number] [address]- 0883 Feb, [facility] [address] [id number] [place] [address]- 4094 Feb, [facility] [address] [id number] [place] [address]- 2948 16 Feb, 2012 [facility] [address] [id number] [address]- 0584 15 Feb, 2012 [facility] [address] [id number] [place] [address]- 8074 15 Feb, 2012 [facility] [address] [id number] [place] [address]- 8324 13 Feb, 2012 [facility] [address] [id number] [place] [address]- 0724 Feb, [facility] [address] [id number] [place] [address]- 3219 Feb, [facility] [address] [id number] [place] [address]- 0652 Feb, [facility] [address] [id number] [place] [address]- 1036 Feb, [facility] [address] [id number] [place] [address]- 9373 Feb, [facility] [address] [id number] [place] [address]- 3520 Feb, [facility] [address] [id number] [place] [address]- 7801 Feb, [facility] [address] [id number] [place] [address]- 4342 Feb, [facility] [address] [id number] [place] [address]- 0796 Feb, [facility] [address] [id number] [place] [address]- 0839 Feb, [facility] [address] [id number] [place] [address]- 8653 Feb, [facility] [address] [id number] [place] [address]- 3823 Feb, [facility] [address] [id number] [place] [address]- 5430 Jan, [facility] [address] [id number] [place] [address]- 2836 13 Jan, 2012 [facility] [address] [id number] [place] [address]- 9893 11 Jan, 2012 [facility] [address] [id number] [place] [address]- 2756 10 Jan, 2012 [facility] [address] [id number] [place] [address]- 5786 05 Jan, 2012 [facility] [address] [id number] [place] [address]- 9933 Dec, [facility] [address] [id number] [place] [address]- 8991 Dec, [facility] [address] [id number] [place] [address]- 7307 Dec, [facility] [address] [id number] [place] [address]- 8890 Dec, [facility] [address] [id number] [place] [address]- 4783 Dec, [facility] [address] [id number] [place] [address]- 6367 Dec, [facility] [address] [id number] [place] [address]- 4681 Nov, [facility] [address] [id number] [place] [address]- 8814 Nov, [facility] [address] [id number] [place] [address]- 9058 Nov, [facility] [address] [id number] [place] [address]- 2203 Nov, [facility] [address] [id number] [place] [address]- 1581 Nov, [facility] [address] [id number] [place] [address]- 5544 Oct, [facility] [address] [id number] [place] [address]- 8761 Oct, [facility] [address] [id number] [place] [address]- 2310 Oct, [facility] [address] [id number] [place] [address]- 2510 September, [facility] [address] [id number] [place] [address]- 6969 September, [facility] [address] [id number] [place] [address]- 3177 September, [facility] [address] [id number] [place] [address]- 3375 September, [facility] [address] [id number] [place] [address]- 1156 September, [facility] [address] [id number] [place] [address]- 5320 September, [facility] [address] [id number] [place] [address]- 3478 Aug, [facility] [address] [id number] [place] [address]- 5104 Aug, [facility] [address] [id number] [place] [address]- 3904 Aug, [facility] [address] [id number] [place] [address]- 5220 Jun, [facility] [address] [id number] [place] [address]- 7635 Jun, [facility] [address] [id number] [place] [address]- 2397 Jun, [facility] [address] [id number] [place] [address]- 9406 Jun, [facility] [address] [id number] [place] [address]- 9298 May, [facility] [address] [id number] [place] [address]- 5288 May, [facility] [address] [id number] [place] [address]- 2759 May, [facility] [address] [id number] [place] [address]- 5841 May, [facility] [facility] [address] [id number] [place] [address]- 1738 May, [facility] [facility] [address] [id number] [place] [address]- 7599 Apr, [facility] [facility] [address] [id number] [place] [address]- 0962 Apr, [facility] [place] [facility] [address] [id number] [place] [address]- 9307 Apr, [facility] [address] [id number] [place] [address]- 0987 Apr, [facility] [address] [id number] [place] [address]- 3615 Apr, [facility] [place] [facility] [address] [id number] [place] [address]- 2204 16 Apr, 2011 [facility] [facility] [address] [id number] [place] [address]- 0829 Apr, [facility] [facility] [address] [id number] [place] [address]- 9525 Mar, [facility] [place] [facility] [address] [id number] [place] [address]- 7433 Mar, [facility] [place] [facility] [address] [id number] [place] [address]- 1067 15 Mar, 2011 [facility] [facility] [address] [id number] [place] [address]- 7977 26 Feb, 2011 [facility] [place] [facility] [address] [id number] [place] [address]- 3771 24 Feb, 2011 [facility] [place] [facility] [address] [id number] [place] [address]- 6882 Feb, [facility] [place] [facility] [address] [id number] [place] 3576 Feb, [facility] [place] [facility] [address] [id number] [place] [address]- 5956 Feb, [facility] [place] [facility] [address] [id number] [place] [address]- 5816 17 Feb, 2011 [facility] [place] [facility] [address] [id number] [place] [address]- 3265 Jan, [facility] [place] [facility] [address] [id number] [place] [address]- 5250 Jan, [facility] [place] [facility] [address] [id number] [place] [address]- 2747 September, [facility] [place] [facility] [address] [id number] [place] [address]- 4982 Jun, [facility] [place] [facility] [address] [id number] [place] [address]- 1654 Apr, [facility] [place] [facility] [address] [id number] [place] [address]- 3471 Apr, [facility] [place] [facility] [address] [id number] [place] [address] 2546 Apr, [facility] [place] [facility] [address] [id number] [place] [address] 2541 Apr, [facility] [place] [facility] [address] [id number] [place] [address] 2546 Apr, [facility] [place] [facility] [address] [id number] [place] [address]- 2546 Mar, [facility] [place] [facility] [address] [id number] [place] [address] 2541 Mar, [facility] [address] [id number] [address]- 0536 Mar, [facility] [id number] [address] 2546 Mar, [facility] [id number] [address]- 8156 Feb, [facility] [id number] [place] [address]- 5270 Jan, [facility] [id number] [place] [address] 42314- 7962 Mar, [facility] [id number] [place] [address] 86967- 1699 Jan, [facility] [id number] [place] [address] 67[address]- 5186 Oct, [facility] [id number] [address]- 5456 Apr, IMMUNIZATIONS No Known Immunizations SOCIAL HISTORY Never Assessed REASON FOR VISIT Weight management---DBennettRN, abdominal pain/cramping, chronic constipation, wanting to repeat testing, bilateral ear pain, sinus congestion, low back pain, requesting UA, denies burning, urgency, frequency PLAN OF CARE Activity Details Follow Up pending lab and us for consult Reason: VITAL SIGNS Height 66 in 2017-02-21 Weight 241 lbs 2017-02-21 Temperature 98.6 degrees Fahrenheit 2017-02-21 Heart Rate 90 bpm 2017-02-21 Respiratory Rate 20 2017-02-21 BMI 38.89 kg/m2 2017-02-21 Blood pressure systolic 132 mmHg 2017-02-21 Blood pressure diastolic 84 mmHg 2017-02-21 MEDICATIONS Medication Instructions Dosage Frequency Start Date End Date Duration Status Omeprazole 20 mg Orally Once a day 1 capsule 24h Active HydrOXYzine HCl 50 MG Orally bid prn 1/2-1 tablet as needed 30 day (s) Active Actos 30 MG Orally Once a day 1/2 tablet 24h 180 days Active Fexofenadine HCl 180 MG Orally Once a day 1 tablet as needed 24h Feb, Aug, 30 day(s) Active Dicyclomine HCl 10 mg Orally 4 times a day as needed 2 capsules Active Bactrim DS 800-160 MG Orally 2 times a day 1 tablet 12h Feb, Feb, 07 days Active Flexeril 10 mg Orally 2 times a day s needed 1 tablet Active Esomeprazole Magnesium 20 mg Orally Once a day 1 capsule 24h 90 days Active Ibuprofen 800 MG Orally Three times a day 1 tablet 8h 30 Active PredniSONE 20 mg Orally Once a day 1 tablet 24h Feb, Feb, 07 days Active Lisinopril 20 mg Orally Once a day 1 tablet 24h 30 day(s) Active Sudafed 12 Hour 120 MG Orally every 12 hrs 1 tablet as needed 12h 18 Jan, 2017 Active RESULTS Name Result Date Reference Range AMYLASE 2017-02-21 Amylase, Serum 51 31-124 LIPASE 2017-02-21 Lipase, Serum 55 14-72 CBC 2017-02-21 WBC 6.4 3.4-10.8 RBC 4.43 3.77-5.28 Hemoglobin 13.1 11.1-15.9 Hematocrit 40.4 34.0-46.6 MCV 91 79-97 MCH 29.6 26.6-33.0 MCHC 32.4 31.5-35.7 RDW 13.0 12.3-15.4 Platelets 254 150-379 Neutrophils 52 Not Estab. Lymphs 40 Not Estab. Monocytes 6 Not Estab. Eos 1 Not Estab. Basos 1 Not Estab. Neutrophils (Absolute) 3.4 1.4-7.0 Lymphs (Absolute) 2.6 0.7-3.1 Monocytes(Absolute) 0.4 0.1-0.9 Eos (Absolute) 0.1 0.0-0.4 Baso (Absolute) 0.0 0.0-0.2 Immature Granulocytes 0 Not Estab. Immature Grans (Abs) 0.0 0.0-0.1 CMP 2017-02-21 Glucose, Serum 94 65-99 BUN 9 6-24 Creatinine, Serum 0.79 0.57-1.00 eGFR If NonAfricn Am 93 >59 eGFR If Africn Am 108 >59 BUN/Creatinine Ratio 11 9-23 Sodium, Serum 142 134-144 Potassium, Serum 4.1 3.5-5.2 Chloride, Serum 103 96-106 Carbon Dioxide, Total 28 18-29 Calcium, Serum 9.2 8.7-10.2 Protein, Total, Serum 6.5 6.0-8.5 Albumin, Serum 3.8 3.5-5.5 Globulin, Total 2.7 1.5-4.5 A/G Ratio 1.4 1.2-2.2 Bilirubin, Total 0.3 0.0-1.2 Alkaline Phosphatase, S 67 39-117 AST (SGOT) 16 0-40 ALT (SGPT) 24 0-32 HEPATITIS PROFILE 2017-02-21 Hep A Ab, IgM Negative Negative HBsAg Screen Negative Negative Hep B Core Ab, IgM Negative Negative Hep C Virus Ab 0.2 0.0-0.9 UA LONG DIP (IN HOUSE) 2017-02-21 Lot # [id number] Exp date 08/11/17 Clarity clear Color yellow Odor none GLU negative RANDALL negative KET negative SG 1.015 BLO negative pH 5.5 Protein negative URO 0.2 NIT negative TRAVIS trace Lot # Exp date AMYLASE 2017-02-21 Amylase, Serum 51 31-124 LIPASE 2017-02-21 Lipase, Serum 55 14-72 CBC 2017-02-21 WBC 6.4 3.4-10.8 RBC 4.43 3.77-5.28 Hemoglobin 13.1 11.1-15.9 Hematocrit 40.4 34.0-46.6 MCV 91 79-97 MCH 29.6 26.6-33.0 MCHC 32.4 31.5-35.7 RDW 13.0 12.3-15.4 Platelets 254 150-379 Neutrophils 52 Not Estab. Lymphs 40 Not Estab. Monocytes 6 Not Estab. Eos 1 Not Estab. Basos 1 Not Estab. Neutrophils (Absolute) 3.4 1.4-7.0 Lymphs (Absolute) 2.6 0.7-3.1 Monocytes(Absolute) 0.4 0.1-0.9 Eos (Absolute) 0.1 0.0-0.4 Baso (Absolute) 0.0 0.0-0.2 Immature Granulocytes 0 Not Estab. Immature Grans (Abs) 0.0 0.0-0.1 CMP 2017-02-21 Glucose, Serum 94 65-99 BUN 9 6-24 Creatinine, Serum 0.79 0.57-1.00 eGFR If NonAfricn Am 93 >59 eGFR If Africn Am 108 >59 BUN/Creatinine Ratio 11 9-23 Sodium, Serum 142 134-144 Potassium, Serum 4.1 3.5-5.2 Chloride, Serum 103 96-106 Carbon Dioxide, Total 28 18-29 Calcium, Serum 9.2 8.7-10.2 Protein, Total, Serum 6.5 6.0-8.5 Albumin, Serum 3.8 3.5-5.5 Globulin, Total 2.7 1.5-4.5 A/G Ratio 1.4 1.2-2.2 Bilirubin, Total 0.3 0.0-1.2 Alkaline Phosphatase, S 67 39-117 AST (SGOT) 16 0-40 ALT (SGPT) 24 0-32 PROCEDURES Procedure Date Ordered Result Body Site URINALYSIS, AUTO, W/O SCOPE Feb 21, 2017 ASSAY OF AMYLASE Feb 21, 2017 VENIPUNCT, ROUTINE* Feb 21, 2017 ACUTE HEPATITIS PANEL Feb 21, 2017 ASSAY OF LIPASE Feb 21, 2017 COMPREHEN METABOLIC PANEL Feb 21, 2017 COMPLETE CBC W/AUTO DIFF WBC Feb 21, 2017 INSTRUCTIONS MEDICATIONS ADMINISTERED No Known Medications MEDICAL (GENERAL) HISTORY Type Description Date Medical History back pain Medical History anxiety Medical History MRSA Medical History bipolar disorder Medical History hypertension Medical History mood disorder Medical History irritable bowel syndrome Medical History obesity Medical History allergic rhinitis Medical History heartburn Medical History hx of gestational diabetes Surgical History section x2 Surgical History Kidney Surgery- kidney stones removed Surgical History tonsillectomy and adenoidectomy Surgical History Tubal Ligation Surgical History Bladder surgery - Mesh Surgical History Genito-urinary tract surgery ablation 4-5 years ago and also placed a mesh in there Surgical History Dental Surgery- wisdom teeth
--- OUTSIDE RECORDS SUMMARY | 2018-03-22 21:49 | XMS REPORT ---
Author Author BRITANY BOSCH [facility] Address [address] [place] [address] Care Team Providers Care Sap Bi Architect Name Role Phone BRITANY BOSCH Unavailable PROBLEMS Type Condition ICD9-CM Code [id number] Code Onset Dates Condition Status SNOMED Code Problem Folliculitis L73.9 Active 73511180 Problem High risk bisexual behavior Z72.53 Active 503272955 Problem Anxiety F41.9 Active 40200660 Problem Acute non-recurrent maxillary sinusitis J01.00 Active 62461869 Problem Other obesity due to excess calories E66.09 Active 625037245 Problem Plantar wart of right foot B07.0 Active 92279911 Problem Other chronic pain G89.29 Active 17397041 Problem Pain in right foot M79.671 Active 78552981629348134 Problem Pain in left foot M79.672 Active 546468035469719 Problem Heartburn R12 Active 61273791 Problem Irritable bowel syndrome without diarrhea K58.9 Active 40238188 Problem Bilateral low back pain without sciatica M54.5 Active 157458553 Problem Pre-diabetes R73.03 Active 518698397 Problem Essential hypertension I10 Active 52918559 Problem Long-term use of high-risk medication Z79.899 Active 193452297 Problem Bilateral low back pain, with sciatica presence unspecified M54.5 Active 080977782 Problem Impacted cerumen of right ear H61.21 Active 55900760 ALLERGIES Substance Reaction Event Type Date Status Penicillin V Potassium anaphylaxis Drug Allergy Jun, Active surgical tape "tears skin off" Non Drug Allergy Jun, Active SOCIAL HISTORY Never Assessed PLAN OF CARE Activity Details Follow Up 2 Months Reason:DM VITAL SIGNS Height 66 in 2016-06-22 Weight 248.4 lbs 2016-06-22 Temperature 97.6 degrees Fahrenheit 2016-06-22 Heart Rate 80 bpm 2016-06-22 Respiratory Rate 20 2016-06-22 BMI 40.09 kg/m2 2016-06-22 Blood pressure systolic 134 mmHg 2016-06-22 Blood pressure diastolic 84 mmHg 2016-06-22 MEDICATIONS Medication Instructions Dosage Frequency Start Date End Date Duration Status Bactrim DS 800-160 MG Orally Twice a day 1 tablet 12h May, 10 day(s) Active Flexeril 10 mg Orally 2 times a day s needed 1 tablet Active MetFORMIN HCl ER 500 MG Orally Once a day 1 tablet with evening meal 24h May, 30 day(s) Active Lisinopril-Hydrochlorothiazide 20-12.5 MG Orally Once a day 1 tablet 24h 30 Active HydrOXYzine HCl 50 MG Orally bid prn 1/2-1 tablet as needed 30 day (s) Active Esomeprazole Magnesium 20 mg Orally Once a day 1 capsule 24h Jun, 90 days Active Ibuprofen 800 MG Orally Three times a day 1 tablet 8h 30 Active RESULTS No Results PROCEDURES No Known procedures IMMUNIZATIONS No Known Immunizations MEDICAL (GENERAL) HISTORY Type Description Date Medical [...]
--- OUTSIDE RECORDS SUMMARY | 2018-03-22 21:49 | XMS REPORT ---
Author Author JEVON MCLEAN Organization [facility] Address [address] [place] [address] Care Team Providers Care Icu Nurse Name Role Phone JEVON MCLEAN Unavailable PROBLEMS Type Condition ICD9-CM Code VVI75-CK Code Onset Dates Condition Status SNOMED Code Problem Other chronic pain G89.29 Active 52247228 Problem Pain in left foot M79.672 Active 461147392216755 Problem Plantar wart of right foot B07.0 Active 66182199 Problem Obesity (BMI 30-39.9) E66.9 Active 492391798 Problem Heartburn R12 Active 91337068 Problem Rhinosinusitis J32.9 Active 61489425 Problem Other obesity due to excess calories E66.09 Active 355239217 Problem Pain in right foot M79.671 Active [id number] Problem Alternating constipation and diarrhea R19.8 Active 603028282 Problem Acute non-recurrent maxillary sinusitis J01.00 Active 92097877 Problem Essential hypertension I10 Active 45220717 Problem Bilateral low back pain without sciatica M54.5 Active 738062865 Problem Irritable bowel syndrome without diarrhea K58.9 Active 71204163 Problem Bilateral low back pain, with sciatica presence unspecified M54.5 Active 149130283 Problem High risk bisexual behavior Z72.53 Active 013934683 Problem Long-term use of high-risk medication Z79.899 Active 362178934 Problem Pre-diabetes R73.03 Active 906960584 Problem Impacted cerumen of right ear H61.21 Active 19622198 Problem Anxiety F41.9 Active 42631804 Problem Folliculitis L73.9 Active 63113703 ALLERGIES Substance Reaction Event Type Date Status Penicillin V Potassium anaphylaxis Drug Allergy May, Active surgical tape "tears skin off" Non Drug Allergy May, Active ENCOUNTERS Encounter Location Date Diagnosis [facility] [address] [facility] [id number] [address] Nov, [facility] [id number] [place] [address] 65564- 4268 Oct, Abscess of groin, left L02.214 and Pre-diabetes R73.03 [facility] [id number] [place] [address] 72481- 7959 September, Pre-diabetes R73.03 [facility] [address] [address]- 5667 Aug, [facility] [address] 40347- 3076 Jul, Bilateral low back pain without sciatica M54.5 [facility] [address] 29875- 5345 Jun, [facility] [address] 51800- 4288 Jun, [facility] [address] 32132- 3413 Jun, [facility] [address] 63716- 4520 May, [facility] [id number] [place] [address] 22095- 2437 May, Ingrown left greater toenail L60.0 [facility] [address] 46399- 4570 May, [facility] [id number] [place] [address] 63649 -7912 May, Influenza A J10.1 ; Fever R50.9 and Body aches R52 [facility] [id number] [place] [address] 99601- 1047 Apr, [facility] [id number] [place] [address] 77145- 2471 Apr, [facility] [id number] [place] [address] 44840- 9938 Apr, [place] [address] 29332- 5737 Apr, Abscess L02.91 and Obesity (BMI 30-39.9) E66.9 [place] [id number] [place] [address] 60539- 6739 Apr, [place] [address] 40698- 1057 Apr, [place] [id number] [place] [address] 65716- 8380 Mar, Acute non-recurrent maxillary sinusitis J01.00 [place] [address] 24146- 9218 Feb, Heartburn R12 [place] [address] 23898- 8331 Feb, Heartburn R12 ; Low back pain M54.5 ; Essential hypertension I10 ; Bilateral low back pain without sciatica M54.5 ; Anxiety F41.9 ; Pre-diabetes R73.03 ; Other obesity due to excess calories E66.09 ; Alternating constipation and diarrhea R19.8 ; Dyspepsia R10.13 ; Generalized abdominal pain R10.84 ; Rhinosinusitis J32.9 and Boil L02.92 [place] [id number] [place] [address] 48572- 2637 Jan, Heartburn R12 [place] [id number] [place] [address] 15465- 8369 Jan, [place] [id number] [place] [address] 52129- 2659 Jan, [place] [id number] [place] [address] 98575- 0819 Jan, Acute seasonal allergic rhinitis due to pollen J30.1 and Irritable bowel syndrome without diarrhea K58.9 [place] [address] 93508- 8671 Dec, Low back pain M54.5 and Acute cystitis with hematuria N30.01 [place] [address] 82602- 3729 Dec, Low back pain M54.5 and Acute cystitis with hematuria N30.01 [place] [address] 60346- 6168 Dec, Heartburn R12 ; Essential hypertension I10 ; Acute non- recurrent maxillary sinusitis J01.00 ; Bilateral low back pain without sciatica M54.5 ; Anxiety F41.9 ; Pre-diabetes R73.03 ; Pain in right foot M79.671 ; Pain in left foot M79.672 ; Other obesity due to excess calories E66.09 and Acute cystitis with hematuria N30.01 [place] [address] 83571- 9385 Dec, Bilateral low back pain without sciatica M54.5 ; Acute non- recurrent maxillary sinusitis J01.00 and Pre-diabetes R73.03 [place] [address] 88372- 4789 Oct, [facility] [address] 43547 -9385 Aug, [facility] [address] 22956 -9346 Aug, Acute vaginitis N76.0 ; Urinary frequency R35.0 ; Screen for STD (sexually transmitted disease) Z11.3 and Abscess L02.91 [place] [address] 79491- 3962 Aug, Plantar wart of right foot B07.0 [place] [address] 39453- 0142 Jul, Plantar wart of right foot B07.0 [place] [id number] [place] [address] 48344- 8012 Jun, [facility] [address] 70497- 6642 Jun, Heartburn R12 ; Essential hypertension I10 ; Anxiety F41.9 ; Folliculitis L73.9 and Plantar wart of right foot B07.0 [facility] [address] 63251- 9142 Jun, [facility] [id number] [place] [address] 97602 -7312 May, Low back pain M54.5 and Other chronic pain G89.29 [place] [id number] [place] [address] 88583- 4405 May, [place] [address] 52734- 0758 May, [place] [id number] [place] [address] 58192- 3911 May, Heartburn R12 ; Bilateral low back pain without sciatica M54.5 ; Essential hypertension I10 ; Long-term use of high-risk medication Z79.899 ; Anxiety F41.9 ; Impacted cerumen of right ear H61.21 ; Folliculitis L73.9 ; High risk bisexual behavior Z72.53 and General medical exam Z00.00 [place] [id number] [place] [address] 99607- 1690 May, [place] [id number] [place] [address] 24526- 6612 May, [place] [address] 88079- 2871 Mar, Acute nasopharyngitis J00 ; Acute intractable tension-type headache G44.201 and Cough R05 [place] [id number] [place] [address] 17085- 4181 Jan, [facility] [address], [place] [address] Jan, Abscess L02.91 [facility] [id number] [place] [address] 71671 -5355 10 Jan, 2016 Urinary urgency R39.15 and Urinary tract infection without hematuria, site unspecified N39.0 [facility] [id number] [place] [address] 33874- 8803 Jan, [facility] [id number] [place] [address] 69787- 4512 Jan, [facility] [id number] [place] [address] 18136- 3284 Dec, [facility] [id number] [place] [address] 17947- 1437 Dec, Dermatofibroma D23.9 [facility] [id number] [place] [address] 49211- 5652 September, [facility] [id number] [place] [address] 10507- 0888 Aug, [facility] [id number] [place] [address] 65552- 2105 Aug, Pain in left knee M25.562 ; Heartburn R12 ; Bilateral low back pain without sciatica M54.5 ; Essential hypertension I10 ; Ingrown left big toenail L60.0 ; Chronic pain G89.29 ; Irritable bowel syndrome with constipation K58.9 and Skin infection L08.9 [facility] [address] [address]- [address] Aug, [facility] [id number] [place] [address] 97691- 2890 Jul, [facility] [address], [place] [address]- 0676 Jun, [facility] [id number] [address]- 8132 Jun, [facility] [id number] [place] [address] 66745- 4796 Jun, [facility] [id number] [place] [address] 07765- 2732 Jun, [facility] [id number] [place] [address] 31211- 2624 Jun, Upper respiratory infection J06.9 ; Bilateral low back pain without sciatica M54.5 and Headache R51 [facility] [id number] [place] [address] 19375- 5618 May, [facility] [id number] [place] [address] 32515- 9852 Apr, Bilateral low back pain without sciatica M54.5 ; Upper respiratory infection J06.9 and Yeast dermatitis B37.2 [facility] [id number] [place] [address] 49721- 9882 Apr, [facility] [id number] [place] [address] 57373- 9528 Apr, [facility] [id number] [place] [address] 02195- 3634 Feb, [facility] [id number] [place] [address] 85377- 5521 Feb, [facility] [id number] [place] [address] 89542- 5822 Feb, [facility] [id number] [place] [address] 71064- 1412 Feb, Essential hypertension I10 ; Heartburn R12 ; Irritable bowel syndrome without diarrhea K58.9 ; Bilateral low back pain, with sciatica presence unspecified M54.5 and Upper respiratory infection J06.9 [facility] [id number] [place] [address] 76887- 2741 Feb, [facility] [id number] [place] [address] 15939- 5590 Feb, Generalized anxiety disorder F41.1 and Grief F43.20 [place] [id number] [place] [address] 77696- 5393 Jan, [place] [address] 77929- 8781 Jan, Back pain 724.5 ; Upper respiratory infection 465.9 ; HTN ( hypertension) 401.9 and Dyspepsia 536.8 [place] [address] 27699- 6049 Dec, [place] [id number] [place] [address] 26744- 9853 Nov, Back pain 724.5 ; Abdominal pain, bilateral lower quadrant 789.03 ; GERD (gastroesophageal reflux disease) 530.81 ; Upper respiratory infection 465.9 ; Dysuria 788.1 and HTN (hypertension) 401.9 [place] [id number] [place] [address] 02361- 9353 Nov, [place] [address] 22895- 1447 Nov, [place] [id number] [place] [address] 03941- 3844 Nov, [place] [id number] [place] [address] 01541- 1275 Nov, Cough 786.2 [place] [id number] [place] [address] 65003- 7974 Nov, Cough 786.2 [place] [address] 13479- 9744 Oct, Unspecified episodic mood disorder 296.90 and Anxiety disorder, unspecified 300.00 [place] [address] 53401- 8415 Oct, Abdominal pain, left upper quadrant 789.02 ; Essential hypertension, benign 401.1 ; Irritable bowel syndrome 564.1 ; Abscess 682.9 ; Heartburn 787.1 ; Acute sinusitis, unspecified 461.9 ; Muscle spasm of back 724.8 ; Cough 786.2 and Skin tag 701.9 [facility] [address] [address]- 8220 September, [facility] [id number] [place] [address] 92351- 3650 September, [facility] [id number] [address]- 3937 September, [facility] [id number] [place] [address] 22218- 4515 Aug, [facility] [id number] [address]- 4322 Aug, [facility] [id number] [address]- 5800 Jul, [facility] [address] [address]- 2619 Jul, [facility] [id number] [address]- 1911 Jul, [facility] [address] [address]- 1791 Jul, [facility] [id number] [address]- 1671 Jul, [facility] [address] [address] 6109 Jul, [facility] [address] [address] 1804 Jul, [facility] [address]- 4896 Jul, [facility] [id number] [address]- 1687 Jul, [facility] [place] [facility] [address] [id number] [place] [address]- 2526 Jul, [facility] [place] [facility] [address] [id number] [place] [address]- 1200 Jul, [facility] [place] [facility] [address] [id number] [place] [address]- 8809 Jul, [facility] [place] [facility] [address] [id number] [place] [address]- 1704 Jul, [facility] [place] [facility] [address] [id number] [place] [address]- 3477 Jul, [facility] [place] [facility] [address] [facility] [id number] [place] [address]- 6591 Jul, [facility] [place] [facility] [address] [id number] [place] [address]- 6208 Jul, [facility] [place] [facility] [address] [id number] [place] [address]- 8667 Jul, [facility] [place] [facility] [address] [id number] [place] [address]- 7935 Jun, [facility] [place] [facility] [address] [facility] [id number] [place] [address]- 4495 Jun, 2014 [facility] [place] [facility] [address] [id number] [place] [address]- 6543 Jun, 2014 [facility] [place] [facility] [address] [id number] [place] [address]- 2496 Jun, 2014 [facility] [place] [facility] [address] [id number] [place] [address]- 8342 Jun, 2014 [facility] [place] [facility] [address] [id number] [place] 7309 Jun, 2014 [facility] [place] [facility] [address] [id number] [place] [address]- 9956 Jun, [facility] [place] [facility] [address] [id number] [place] 2395 Jun, [facility] [place] [facility] [address] [id number] [place] 8466 Apr, [facility] [place] [facility] [address] [id number] [place] [address]- 7120 Apr, [facility] [place] [facility] [address] [id number] [place] [address]- 1283 Apr, [facility] [place] [facility] [address] [id number] [place] [address]- 3607 Apr, [facility] [place] [facility] [address] [id number] [place] [address]- 2841 Apr, [facility] [place] [facility] [address] [id number] [place] [address]- 4047 Apr, [facility] [place] [facility] [address] [id number] [place] [address]- 1445 Apr, [facility] [place] [facility] [address] [id number] [place] [address]- 8737 Apr, [facility] [place] [facility] [address] [id number] [place] [address]- 1098 Apr, [facility] [place] [facility] [address] [id number] [place] [address]- 0473 Apr, [facility] [place] [facility] [address] [id number] [place] [address]- 5248 Apr, [facility] [place] [facility] [address] [id number] [place] [address]- 6293 Apr, [facility] [place] [facility] [address] [id number] [place] 7546 Apr, [facility] [place] [facility] [address] [id number] [place] 9255 Apr, [facility] [place] [facility] [address] [id number] [place] [address]- 7991 Apr, [facility] [place] [facility] [address] [id number] [place] [address]- 5830 Feb, [facility] [place] [facility] [address] [id number] [place] [address]- 1315 Feb, [facility] [place] [facility] [address] [id number] [place] [address]- 3045 Feb, [facility] [place] [facility] [address] [id number] [place] [address]- 3394 Feb, [facility] [place] [facility] [address] [id number] [place] [address]- 7743 Feb, [facility] [place] [facility] [address] [id number] [place] [address]- 0949 Feb, [facility] [place] [facility] [address] [id number] [place] [address]- 5359 Jan, 2013 [facility] [place] [facility] [address] [id number] [place] [address]- 9402 Jan, 2013 [facility] [place] [facility] [address] [id number] [place] [address]- 4867 Jan, 2013 [facility] [place] [facility] [address] [id number] [place] [address]- 9698 Jan, 2013 [facility] [place] [facility] [address] [id number] [place] [address]- 2646 Jan, 2013 [facility] [place] [facility] [address] [id number] [place] [address]- 0320 Jan, 2013 [facility] [place] [facility] [address] [id number] [place] [address]- 8716 Dec, [facility] [place] [facility] [address] [id number] [place] [address]- 9863 Dec, [facility] [place] [facility] [address] [id number] [place] [address]- 9971 Dec, [facility] [place] [facility] [address] [id number] [place] [address]- 5089 Dec, [facility] [place] [facility] [address] [id number] [place] [address]- 6707 Nov, [facility] [place] [facility] [address] [id number] [place] [address]- 8350 Nov, [facility] [place] [facility] [address] [id number] [place] [address]- 5239 Nov, [facility] [place] [facility] [address] [id number] [place] [address]- 6939 Nov, [facility] [place] [facility] [address] [id number] [place] [address]- 6926 Nov, [facility] [place] [facility] [address] [id number] [place] [address]- 7638 Nov, [facility] [place] [facility] [address] [id number] [place] [address]- 1967 Nov, [facility] [place] [facility] [address] [id number] [place] [address]- 1261 Nov, [facility] [place] [facility] [address] [id number] [place] [address]- 1990 Oct, [facility] [place] [facility] [address] [id number] [place] [address]- 2303 Oct, [facility] [place] [facility] [address] [id number] [place] [address]- 3332 Oct, [facility] [place] [facility] [address] [id number] [place] [address]- 5841 Oct, [facility] [place] [facility] [address] [id number] [place] [address]- 5738 Oct, [facility] [place] [facility] [address] [id number] [place] [address]- 6601 Oct, [facility] [place] [facility] [address] [id number], [place] [address]- 9299 Oct, [facility] [place] [facility] [address] [id number] [place] [address]- 3762 Oct, [facility] [place] [facility] [address] [id number] [place] [address]- 9293 Oct, [facility] [place] [facility] [address] [facility] [id number] [place] [address]- 6648 Oct, [facility] [place] [facility] [address] [id number] [place] [address]- 5916 Oct, [facility] [place] [facility] [address] [id number] [place] [address]- 2616 Oct, [facility] [place] [facility] [address] [id number] [place] [address]- 7979 Oct, [facility] [place] [facility] [address] [id number], [place] [address]- 0735 Oct, [facility] [place] [facility] [address] [id number], [place] [address]- 0711 17 Oct, 2013 [facility] [place] [facility] [address] [id number] [place] [address]- 0367 17 Oct, 2013 [facility] [place] [facility] [address] [facility] [id number], [place] [address] 16 Oct, 2013 [facility] [place] [facility] [address] [id number], [place] [address] 16 Oct, 2013 [facility] [place] [facility] [address] [id number], [place] [address] 13 Oct, 2013 [facility] [place] [facility] [address] [id number], [place] [address] 13 Oct, 2013 [facility] [place] [facility] [address] [facility] [id number], [place] [address] 11 Oct, 2013 [facility] [place] [facility] [address] [facility] [id number], [place] [address] Oct, [facility] [place] [facility] [address] [id number] [place] [address] Oct, [facility] [place] [facility] [address] [id number] [place] [address] Oct, [facility] [place] [facility] [address] [id number] [place] [address] Oct, [facility] [place] [facility] [address] [id number] [place] [address] Oct, [facility] [place] [facility] [address] [id number] [place] [address] Oct, [facility] [place] [facility] [address] [id number] [place] [address] Oct, [facility] [place] [facility] [address] [id number] [place] [address] Oct, [facility] [place] [facility] [address] [id number] [place] [address] Oct, [facility] [place] [facility] [address] [id number] [place] [address] September, [facility] [place] [facility] [address] [id number] [place] [address]- [address] September, [facility] [place] [facility] [address] [id number] [place] [address] September, [facility] [place] [facility] [address] [id number] [place] [address] September, [facility] [place] [facility] [address] [id number] [place] [address] September, [facility] [place] [facility] [address] [id number] [place] [address] September, [facility] [place] [facility] [address] [id number] [place] [address] September, [facility] [place] [facility] [address] [id number] [place] [address] September, [facility] [address] [id number] [place] [address] September, [facility] [place] [facility] [address] [id number] [place] [address]661 September, [facility] [place] [facility] [address] [id number] [place] [address] September, [facility] [place] [facility] [address] [id number] [place] [address] September, [facility] [place] [facility] [address] [id number] [place] [address] September, [facility] [place] [facility] [address] [id number] [place] [address] September, [facility] [place] [facility] [address] [id number] [place] [address] September, [facility] [place] [facility] [address] [id number] [place] [address] September, [facility] [place] [facility] [address] [id number] [place] [address]- [address] September, [facility] [place] [facility] [address] [id number] [place] [address] September, [facility] [place] [facility] [address] [id number] [place] [address] Aug, [facility] [facility] [address] [id number] [place] [address] Aug, [facility] [place] [facility] [address] [id number] [place] [address] Aug, [facility] [place] [facility] [address] [id number] [place] [address]37 Aug, [facility] [place] [facility] [address] [id number] [place] [address] 5713 Aug, [facility] [place] [facility] [address] [id number] [place] [address] 7197 Aug, [facility] [place] [facility] [address] [id number] [place] [address] 8806 Jul, [facility] [place] [facility] [address] [id number] [place] [address] 7728 Jul, [facility] [place] [facility] [address] [id number] [place] [address] 9859 Jul, [facility] [place] [facility] [address] [id number] [place] [address] 6565 Jul, [facility] [place] [facility] [address] [id number] [place] [address] 2265 Jun, [facility] [place] [facility] [address] [id number] [place] [address] 8135 Jun, [facility] [place] [facility] [address] [facility] [id number] [place] [address] 1309 Jun, [facility] [place] [facility] [address] [id number] [place] [address] 3360 Jun, [facility] [place] [facility] [address] [facility] [id number] [place] [address] 0513 Mar, [facility] [place] [facility] [address] [facility] [id number] [place] [address]- 6[address] 14 Mar, 2013 [facility] [place] [facility] [address] [id number] [place] [address] 0681 Mar, [facility] [place] [facility] [address] [id number] [place] [address] 4335 Mar, [facility] [place] [facility] [address] [id number] [place] [address]- 4765 22 Feb, 2013 [facility] [place] [facility] [address] [id number] [place] [address] 8121 Feb, [facility] [place] [facility] [address] [facility] [id number] [place] [address] 4728 Feb, [facility] [place] [facility] [address] [id number] [place] [address] 3831 Jan, [facility] [place] [facility] [address] [id number] [place] [address]- 2206 Jan, [facility] [place] [facility] [address] [id number] [place] [address] 5064 Jan, [facility] [place] [facility] [address] [id number] [place] [address]- 5744 Jan, [facility] [place] [facility] [address] [id number] [place] [address]- 5009 Dec, [facility] [place] [facility] [address] [id number] [place] [address]- 6548 Dec, [facility] [place] [facility] [address] [id number] [place] [address]- 8392 Dec, [facility] [place] [facility] [address] [id number] [place] [address]- 7086 Dec, [facility] [place] [facility] [address] [id number] [place] [address] 7140 Nov, [facility] [place] [facility] [address] [id number] [place] [address]- 5383 Nov, [facility] [place] [facility] [address] [id number] [place] [address]- 9522 Nov, [facility] [place] [facility] [address] [id number] [address] 6710 Nov, [facility] [facility] [address] [id number] [place] [address]- 0451 Nov, [facility] [place] [facility] [address] [id number] [place] [address]- 5463 Nov, [facility] [address] [id number], [place] [address] Oct, [facility] [address] [id number], [place] [address] 5[address] 27 Oct, 2012 [facility] [address] [id number] [place] [address] 8056 25 Oct, 2012 [facility] [place] [facility] [address] [id number] [place] [address]- 9251 21 Oct, 2012 [facility] [address] [id number] [place] [address]- 7077 17 Oct, 2012 [facility] [place] [facility] [address] [id number] [place] [address]- 5009 16 Oct, 2012 [facility] [address] [id number] [place] [address]- 9399 14 Oct, 2012 [facility] [facility] [address] [id number] [place] [address]- 3933 13 Oct, 2012 [facility] [address] [id number] [place] [address]- 1672 Oct, [facility] [address] [id number] [place] [address]- 0944 07 Oct, 2012 [facility] [address] [id number] [place] [address]- 1711 September, [facility] [address] [id number] [place] [address]- 1007 September, [facility] [address] [id number] [place] [address]- 8942 September, [facility] [address] [id number], [place] [address] 9764 Aug, [facility] [address] [id number] [place] [address]- 6196 Aug, [facility] [address] [id number] [place] [address]- 2609 Aug, [facility] [address] [id number] [place] [address]- 1627 Aug, [facility] [address] [id number] [place] [address]- 6947 30 Jul, 2012 [facility] [address] [id number] [place] [address]- 6584 29 Jul, 2012 [facility] [address] [id number] [place] [address]- 4466 Jul, [facility] [address] [id number] [place] [address]- 1480 Jul, [facility] [address] [id number] [place] [address]- 7659 04 Jul, 2012 [facility] [facility] [address] [id number] [place] [address] 8620 Jul, [facility] [address] [id number] [place] [address]- 2267 31 May, 2012 [facility] [address] [id number] [place] [address]- 6713 May, [facility] [address] [id number] [place] [address]- 2229 May, [facility] [address] [id number] [place] [address]- 0367 May, [facility] [address] [id number] [place] [address]- 5237 May, [facility] [address] [id number] [place] [address]- 3870 May, [facility] [address] [id number] [place] [address]- 0815 May, [facility] [address] [id number] [place] [address]- 3068 May, [facility] [address] [id number] [place] [address]- 8101 May, [facility] [address] [id number] [place] [address] 2443 May, [facility] [address] [id number] [place] [address]- 1862 May, [facility] [address] [id number] [place] [address]- 0493 Apr, [facility] [address] [id number] [place] [address]- 5777 Apr, [facility] [address] [id number] [place] [address]- 7318 Apr, [facility] [address] [id number] [place] [address]- 4227 Apr, [facility] [address] [id number] [place] [address]- 6482 Apr, [facility] [address] [id number] [place] [address]- 5036 Apr, [facility] [address] [id number] [place] [address]- 0496 Mar, [facility] [address] [id number] [place] [address]- 7043 Mar, [facility] [address] [id number] [place] [address]- 7975 Mar, [facility] [address] [id number], [place] [address]- 0085 Mar, [facility] [address] [id number], [place] [address]- 8589 Mar, [facility] [address] [id number] [place] [address]- 9626 Mar, [facility] [address] [id number], [place] [address]- 2137 Mar, [facility] [address] [id number] [place] [address]- 7853 Mar, [facility] [address] [id number] [place] [address]- 0124 23 Feb, 2011 [facility] [address] [id number] [place] [address]- 7470 23 Feb, 2011 [facility] [address] [id number] [place] [address]- 3716 16 Feb, 2012 [facility] [address] [id number] [place] [address]- 5398 15 Feb, 2012 [facility] [address] [id number] [place] [address]- 5169 15 Feb, 2012 [facility] [address] [id number] [place] [address]- 9967 13 Feb, 2012 [facility] [address] [id number] [place] [address]- 8311 12 Feb, 2012 [facility] [address] [id number] [place] [address]- 0037 12 Feb, 2012 [facility] [address] [id number] [place] [address]- 7994 12 Feb, 2012 [facility] [address] [id number] [place] [address]- 9411 Feb, [facility] [address] [id number] [place] [address]- 4683 Feb, [facility] [address] [id number] [place] [address]- 3892 Feb, [facility] [address] [id number], [place] [address]- 6300 Feb, [facility] [address] [id number] [place] [address]- 0150 Feb, [facility] [address] [id number] [place] [address]- 7050 Feb, [facility] [address] [id number] [place] [address]- 9259 Feb, [facility] [address] [id number] [place] [address]- 6025 Feb, [facility] [address] [id number] [place] [address]- 7138 Feb, [facility] [address] [id number] [place] [address]- 6849 19 Jan, 2012 [facility] [address] [id number] [place] [address]- 1976 13 Jan, 2012 [facility] [address] [id number] [place] [address]- 5177 11 Jan, 2012 [facility] [address] [id number] [place] [address]- 1092 Jan, [facility] [address] [id number] [place] [address]- 7500 05 Jan, 2012 [facility] [address] [id number] [place] [address]- 4018 Dec, [facility] [address] [id number] [place] [address]- 4158 Dec, [facility] [address] [id number] [place] [address]- 6762 Dec, [facility] [address] [id number] [place] [address]- 1725 Dec, [facility] [address] [id number] [place] [address]- 2819 Dec, [facility] [address] [id number] [place] [address]- 4246 Dec, [facility] [address] [id number] [place] [address]- 9997 Nov, [facility] [address] [id number] [place] [address]- 6788 Nov, [facility] [address] [id number] [place] [address]- 2546 Nov, [facility] [address] [id number] [place] [address]- 7054 Nov, [facility] [address] [id number] [place] [address]- 7306 Nov, [facility] [address] [id number] [place] [address]- 6446 Oct, [facility] [address] [id number] [place] [address]- 5948 Oct, [facility] [address] [id number] [place] [address]- 4526 Oct, [facility] [address] [id number] [place] [address]- 8181 September, [facility] [address] [id number] [place] [address]- 1112 September, [facility] [address] [id number] [place] [address]- 2046 September, [facility] [address] [id number] [place] [address]- 0070 September, [facility] [address] [id number] [place] [address]- 1818 September, [facility] [address] [id number] [place] [address]- 6366 September, [facility] [address] [id number] [place] [address]- 1088 Aug, [facility] [address] [id number] [place] [address]- 9219 Aug, [facility] [address] [id number] [place] [address]- 1999 Aug, [facility] [address] [id number] [place] [address]- 2033 Jun, [facility] [address] [id number] [place] [address]- 9097 Jun, [facility] [address] [id number] [place] [address]- 4476 Jun, [facility] [address] [id number] [place] [address]- 7116 Jun, [facility] [address] [id number] [place] [address]- 7326 May, [facility] [address] [id number] [place] [address]- 6570 May, [facility] [address] [id number] [place] [address]- 8326 May, [facility] [address] [id number] [place] [address]- 0207 May, [facility] [address] [id number] [place] [address]- 7787 May, [facility] [address] [id number] [place] [address]- 3489 Apr, [facility] [address] [id number] [place] [address]- 6039 Apr, [facility] [address] [id number] [place] [address]- 3292 Apr, [facility] [address] [id number] [place] [address]- 2076 Apr, [facility] [address] [id number] [place] [address] 2544 Apr, [facility] [address] [id number] [place] [address] 2546 Apr, [facility] [address] [id number] [place] [address]- 2546 Apr, [facility] [facility] [address] [id number] [place] [address]- 2855 Mar, [facility] [place] [facility] [address] [id number] [place] [address]- 0169 Mar, [facility] [place] [facility] [address] [id number] [place] [address]- 5259 Mar, [facility] [place] [facility] [address] [id number] [place]89 Feb, [facility] [place] [facility] [address] [id number] [place] [address]- 8082 Feb, [facility] [place] [facility] [address] [id number] [place] [address]- 9259 Feb, [facility] [place] [facility] [address] [id number] [place] [address]- 8513 Feb, [facility] [place] [facility] [address] [id number] [place] [address]- 2242 Feb, [facility] [place] [facility] [address] [id number] [place] [address]- 5689 Feb, [facility] [place] [facility] [address] [id number] [place] [address]- 0448 Jan, [facility] [place] [facility] [address] [id number] [place] [address]- 6465 Jan, [facility] [place] [facility] [address] [id number], [place] [address]- 1663 September, [facility] [place] [facility] [address] [id number], [place] [address]- 5261 Jun, [facility] [place] [facility] [address] [id number] [place] [address]- 6916 Apr, [facility] [place] [facility] [address] [id number] [place] [address]- 2983 Apr, [facility] [place] [facility] [address] [id number] [place] [address]- 8007 Apr, [facility] [place] [facility] [id number], [place] [address]- 2587 Apr, [facility] [id number], [place] [address]- 3977 Apr, [facility] [id number], [place] [address]- 7373 Mar, [facility] [id number] [place] [address] 18092- 6900 Mar, [facility] [id number] [place] [address] 29497- 7953 Mar, [facility] [id number] [place] [address] 66[address]65- 2428 Mar, [facility] [id number] [place] [address] 02150- 5257 Feb, [facility] [id number] [place] [address] 63052- 4781 15 Jan, 2010 [facility] [id number] [place] [address] 58875- 9051 Mar, [facility] [id number] [place] [address] 84051- 7584 Jan, [facility] [id number], [place] [address]- 6938 Oct, [facility] [id number] 2990 Apr, IMMUNIZATIONS No Known Immunizations SOCIAL HISTORY Never Assessed REASON FOR VISIT ingrown toenail: left great toe (hx of removal) dillan brown, FYI: Dx with Flu A over the weekend PLAN OF CARE Activity Details Follow Up prn Reason: VITAL SIGNS Height 66 in 2017-05-21 Weight 239.6 lbs 2017-05-21 Temperature 92 degrees Fahrenheit 2017-05-21 Heart Rate 72 bpm 2017-05-21 Respiratory Rate 20 2017-05-21 BMI 38.67 kg/m2 2017-05-21 Blood pressure systolic 132 mmHg 2017-05-21 Blood pressure diastolic 82 mmHg 2017-05-21 MEDICATIONS Medication Instructions Dosage Frequency Start Date End Date Duration Status Promethazine-Codeine 6.25-10 MG/5ML Orally every 6 hrs 5 ml as needed 6h Not-Taking Flexeril 10 mg Orally 2 times a day s needed 1 tablet Active Ibuprofen 800 MG Orally Three times a day 1 tablet 8h 30 Active HydrOXYzine HCl 50 MG Orally bid prn 1/2-1 tablet as needed 30 day (s) Not-Taking Sudafed 12 Hour 120 MG Orally every 12 hrs 1 tablet as needed 12h 18 Jan, 2017 Active Omeprazole 20 mg Orally Once a day 1 capsule 24h Active Actos 30 MG Orally Once a day 1/2 tablet 24h 180 days Active Lisinopril 20 mg Orally Once a day 1 tablet 24h 30 day(s) Active Dicyclomine HCl 10 mg TAKE ONE CAPSULE BY MOUTH THREE TIMES DAILY 30 Active Fexofenadine HCl 180 MG Orally Once a day 1 tablet as needed 24h 11 Feb, 2017 Aug, 30 day(s) Not-Taking RESULTS No Results PROCEDURES Procedure Date Ordered Result Body Site REMOVAL OF NAIL PLATE May 21, 2017 INSTRUCTIONS MEDICATIONS ADMINISTERED No Known [...]
--- OUTSIDE RECORDS SUMMARY | 2018-03-22 21:49 | XMS REPORT ---
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 Active Problem Urinary tract infection, site not specified 599.0 Active Problem Unspecified vaginitis and vulvovaginitis 616.10 Active Problem Routine gynecological examination V72.31 Active Problem Counseling on substance use and abuse V65.42 Active Problem Problems related to high-risk sexual behavior V69.2 Active Problem Hidradenitis 705.83 Active Problem Cough 786.2 Active Problem Dysuria 788.1 Active Problem Leukorrhea, not specified as infective 623.5 Active Problem Unspecified episodic mood disorder 296.90 Active Problem Cellulitis and abscess of face 682.0 Active Problem Obesity, unspecified 278.00 Active Problem Bipolar I disorder, most recent episode (or current) mixed, severe, specified as with psychotic behavior 296.64 Active Problem HTN (hypertension) 401.9 Active Problem Irritable bowel syndrome 564.1 Active Problem Screening examination for pulmonary tuberculosis V74.1 Active Problem Abdominal pain, unspecified site 789.00 Active Problem Abdominal pain, left upper quadrant 789.02 Active Problem Essential hypertension, benign 401.1 Active Problem Abdominal pain, generalized 789.07 Active Problem Unspecified symptom associated with female genital organs 625.9 Active Problem Heartburn 787.1 Active Problem Unspecified constipation 564.00 Active Problem Family history of diabetes mellitus V18.0 Active Problem Screening examination for venereal disease V74.5 Active Problem Screening for malignant neoplasm of the cervix V76.2 Active Problem Unspecified breast screening V76.10 Active Medications Medication Code System Code Instructions Start Date End Date Status Dosage Alprazolam [facility] [address]-67 1 MG Orally 3 times a day PRN Must keep next appt September 22, 2014 1 tablet Results No Known Results Summary Purpose [employer] Submission
--- OUTSIDE RECORDS SUMMARY | 2018-03-22 21:50 | XMS REPORT ---
Author Author TIFFANI THOMAS [facility] Address [address] [place] [address] Care Team Providers Care Metallographic Technician Name Role Phone WILLIAM TIFFANI Unavailable PROBLEMS Type Condition ICD9-CM Code TSH47-EE Code Onset Dates Condition Status SNOMED Code Problem Other chronic pain G89.29 Active 49722102 Problem Pain in left foot M79.672 Active 405971126711843 Problem Plantar wart of right foot B07.0 Active 48482648 Problem Obesity (BMI 30-39.9) E66.9 Active 209471737 Problem Heartburn R12 Active 85086634 Problem Rhinosinusitis J32.9 Active 51044690 Problem Other obesity due to excess calories E66.09 Active 703377000 Problem Pain in right foot M79.671 Active 28362781210733314 Problem Alternating constipation and diarrhea R19.8 Active 925602949 Problem Acute non-recurrent maxillary sinusitis J01.00 Active 27905876 Problem Essential hypertension I10 Active 21731200 Problem Bilateral low back pain without sciatica M54.5 Active 858727299 Problem Irritable bowel syndrome without diarrhea K58.9 Active 41955289 Problem Bilateral low back pain, with sciatica presence unspecified M54.5 Active 152234308 Problem High risk bisexual behavior Z72.53 Active 061477032 Problem Long-term use of high-risk medication Z79.899 Active 794640602 Problem Pre-diabetes R73.03 Active 120532625 Problem Impacted cerumen of right ear H61.21 Active 25636117 Problem Anxiety F41.9 Active 77284604 Problem Folliculitis L73.9 Active 27335453 ALLERGIES No Information ENCOUNTERS Encounter Location Date Diagnosis [facility] [id number] [address] Nov, [facility] [id number] [place] [address] 38977- 2951 Oct, Abscess of groin, left L02.214 and Pre-diabetes R73.03 [facility] [address] [address] September, Pre-diabetes R73.03 [facility] [id number] [place] [address] 43358- 4349 Aug, [facility] [address] 9[address]78- 8890 Jul, Bilateral low back pain without sciatica M54.5 [facility] [address] [address]66[address] Jun, [facility] [address] 73719- 8541 Jun, [facility] [address] [address]- 8892 Jun, [facility] [id number] [place] [address] 93676- 6831 May, [facility] [address] 72[address]- 0140 May, Ingrown left greater toenail L60.0 [facility] [id number] [place] [address] 65424- 8157 May, [facility] [id number] [place] [address] 06979 -1611 May, Influenza A J10.1 ; Fever R50.9 and Body aches R52 [facility] [address] 86760- 9000 Apr, [facility] [address] 55635- 5449 Apr, [facility] [id number] [place] [address] 41809- 3905 Apr, [facility] [id number] [place] [address] 82387- 9001 Apr, Abscess L02.91 and Obesity (BMI 30-39.9) E66.9 [facility] [address] 89617- 6639 Apr, [facility] [address] [address]27- 3740 Apr, [facility] [address] 87515- 7987 Mar, Acute non-recurrent maxillary sinusitis J01.00 [facility] [address] 78789- 5362 Feb, Heartburn R12 [facility] [address] 54938- 0135 Feb, Heartburn R12 ; Low back pain M54.5 ; Essential hypertension I10 ; Bilateral low back pain without sciatica M54.5 ; Anxiety F41.9 ; Pre-diabetes R73.03 ; Other obesity due to excess calories E66.09 ; Alternating constipation and diarrhea R19.8 ; Dyspepsia R10.13 ; Generalized abdominal pain R10.84 ; Rhinosinusitis J32.9 and Boil L02.92 [facility] [id number] [place] [address] 52901- 8221 Jan, Heartburn R12 [facility] [id number] [place] [address] 73918- 0699 Jan, [facility] [id number] [place] [address] 99002- 1380 Jan, [facility] [address] 38841- 6171 Jan, Acute seasonal allergic rhinitis due to pollen J30.1 and Irritable bowel syndrome without diarrhea K58.9 [facility] [address] 11322- 0832 Dec, Low back pain M54.5 and Acute cystitis with hematuria N30.01 [facility] [address] 76965- 1415 Dec, Low back pain M54.5 and Acute cystitis with hematuria N30.01 [facility] [address] 33247- 5057 Dec, Heartburn R12 ; Essential hypertension I10 ; Acute non- recurrent maxillary sinusitis J01.00 ; Bilateral low back pain without sciatica M54.5 ; Anxiety F41.9 ; Pre-diabetes R73.03 ; Pain in right foot M79.671 ; Pain in left foot M79.672 ; Other obesity due to excess calories E66.09 and Acute cystitis with hematuria N30.01 [facility] [address] 05585- 0502 Dec, Bilateral low back pain without sciatica M54.5 ; Acute non- recurrent maxillary sinusitis J01.00 and Pre-diabetes R73.03 [facility] [address] 80383- 1556 Oct, [facility] [address] 71726 -5211 Aug, [facility] [address] 21863 -9808 Aug, Acute vaginitis N76.0 ; Urinary frequency R35.0 ; Screen for STD (sexually transmitted disease) Z11.3 and Abscess L02.91 [facility] [id number] [place] [address] 35087- 1005 Aug, Plantar wart of right foot B07.0 [facility] [address] 72292- 4850 Jul, Plantar wart of right foot B07.0 [facility] [address] 63963- 6605 Jun, [place] [facility] [id number] [place] [address] 46882- 5846 Jun, Heartburn R12 ; Essential hypertension I10 ; Anxiety F41.9 ; Folliculitis L73.9 and Plantar wart of right foot B07.0 [facility] [id number] [place] [address] 42440- 9172 Jun, [facility] [address] 07876 -4851 May, Low back pain M54.5 and Other chronic pain G89.29 [facility] [address] 49186- 5030 May, [facility] [address] 65559- 8744 May, [facility] [address] 41811- 8489 May, Heartburn R12 ; Bilateral low back pain without sciatica M54.5 ; Essential hypertension I10 ; Long-term use of high-risk medication Z79.899 ; Anxiety F41.9 ; Impacted cerumen of right ear H61.21 ; Folliculitis L73.9 ; High risk bisexual behavior Z72.53 and General medical exam Z00.00 [facility] [id number] [place] [address] 02894- 8044 May, [facility] [id number] [place] [address] 45760- 5632 May, [facility] [id number] [place] [address] 87582- 1876 Mar, Acute nasopharyngitis J00 ; Acute intractable tension-type headache G44.201 and Cough R05 [facility] [id number] [place] [address] 86209- 6313 Jan, [facility] [address] 96311 -6562 Jan, Abscess L02.91 [facility] [address] [address] Jan, Urinary urgency R39.15 and Urinary tract infection without hematuria, site unspecified N39.0 [facility] [address] [address]- 6861 Jan, [facility] [id number] [place] [address] 74752- 9629 Jan, [facility] [address] [address]- 3907 Dec, [facility] [id number] [place] [address] 04490- 2403 Dec, Dermatofibroma D23.9 [facility] [id number] [place] [address] 83133- 6183 September, [facility] [address] [address]- 0366 Aug, [facility] [address] [address]- 6929 Aug, Pain in left knee M25.562 ; Heartburn R12 ; Bilateral low back pain without sciatica M54.5 ; Essential hypertension I10 ; Ingrown left big toenail L60.0 ; Chronic pain G89.29 ; Irritable bowel syndrome with constipation K58.9 and Skin infection L08.9 [facility] [address] [address]- 3834 Aug, [facility] [address] [address]- 9574 Jul, [facility] [address] [address]- 5199 Jun, [facility] [address] [address]- 7378 Jun, [facility] [id number] [place] [address] 09327- 7206 16 Jun, 2015 [facility] [id number] [place] [address] 95952- 7311 Jun, [facility] [id number] [place] [address] 20160- 9708 Jun, Upper respiratory infection J06.9 ; Bilateral low back pain without sciatica M54.5 and Headache R51 [facility] [id number] [place] [address] 88355- 1088 May, [facility] [id number] [place] [address] 85922- 8535 Apr, Bilateral low back pain without sciatica M54.5 ; Upper respiratory infection J06.9 and Yeast dermatitis B37.2 [facility] [id number] [place] [address] 81842- 7841 Apr, [facility] [id number] [place] [address] 01510- 3327 Apr, [facility] [id number] [place] [address] 91788- 6104 Feb, [facility] [id number] [place] [address] 76050- 5256 Feb, [facility] [id number] [place] [address] 95733- 9492 Feb, [facility] [id number] [place] [address] 46032- 0893 Feb, Essential hypertension I10 ; Heartburn R12 ; Irritable bowel syndrome without diarrhea K58.9 ; Bilateral low back pain, with sciatica presence unspecified M54.5 and Upper respiratory infection J06.9 [facility] [id number] [place] [address] 91747- 4284 Feb, [facility] [id number] [place] [address] 33689- 2617 Feb, Generalized anxiety disorder F41.1 and Grief F43.20 [facility] [id number] [place] [address] 495858- 0300 Jan, [facility] [id number] [place] [address] 11610- 6277 Jan, Back pain 724.5 ; Upper respiratory infection 465.9 ; HTN ( hypertension) 401.9 and Dyspepsia 536.8 [facility] [id number] [place] [address] 22858- 9567 Dec, [facility] [id number] [place] [address] 808582- 8777 Nov, Back pain 724.5 ; Abdominal pain, bilateral lower quadrant 789.03 ; GERD (gastroesophageal reflux disease) 530.81 ; Upper respiratory infection 465.9 ; Dysuria 788.1 and HTN (hypertension) 401.9 [facility] [id number] [place] [address] 68422- 3549 Nov, [facility] [id number] [place] [address] 52844- 0758 Nov, [facility] [id number] [place] [address] 43054- 0206 Nov, [facility] [id number] [place] [address] 26480- 1102 Nov, Cough 786.2 [facility] [id number] [place] [address] 61104- 2011 Nov, Cough 786.2 [place] [id number] [place] [address] 61473- 4133 Oct, Unspecified episodic mood disorder 296.90 and Anxiety disorder, unspecified 300.00 [place] [id number] [place] [address] 06083- 6750 Oct, Abdominal pain, left upper quadrant 789.02 ; Essential hypertension, benign 401.1 ; Irritable bowel syndrome 564.1 ; Abscess 682.9 ; Heartburn 787.1 ; Acute sinusitis, unspecified 461.9 ; Muscle spasm of back 724.8 ; Cough 786.2 and Skin tag 701.9 [facility] [address] [address]- 9798 September, [facility] [id number] [place] [address] 61240- 1264 September, [facility] [id number] [place] [address] 85945- 1541 September, [facility] [id number] [place] [address] 10783- 8384 Aug, [facility] [id number] [place] [address] 72602- 6202 Aug, [facility] [id number] [place] [address] 07846- 9381 Jul, [facility] [id number] [place] [address] 79333- 7583 Jul, [facility] [id number] [place] [address] 44880- 7780 Jul, [facility] [id number] [address]- 2257 Jul, [facility] [id number] [place] [address] 74095- 0879 Jul, [facility] [address] [address]- 8402 Jul, [facility] [id number] [place] [address] 54215- 1022 Jul, [facility] [id number] [place] [address] 54284- 7757 Jul, [facility] [address] [address]- 9744 Jul, [facility] [place] [facility] [address] [id number] [place] [address]- 5574 Jul, 2014 [facility] [place] [facility] [address] [id number] [place] [address]- 8619 Jul, 2014 [facility] [place] [facility] [address] [id number] [place] [address]- 7649 Jul, 2014 [facility] [place] [facility] [address] [id number] [place] [address]- 9051 Jul, 2014 [facility] [place] [facility] [address] [id number] [place] [address]- 8945 Jul, 2014 [facility] [place] [facility] [address] [id number] [place] [address]- 5884 Jul, 2014 [facility] [place] [facility] [address] [facility] [id number] [place] [address]- 3258 Jul, 2014 [facility] [place] [facility] [address] [id number] [place] [address]- 7453 Jul, 2014 [facility] [place] [facility] [address] [id number] [place] [address]- 7388 Jun, [facility] [place] [facility] [address] [facility] [id number] [place] [address]- 8645 Jun, 2014 [facility] [place] [facility] [address] [facility] [id number] [place] [address]- 3411 Jun, 2014 [facility] [place] [facility] [address] [id number] [address]- 8794 Jun, 2014 [facility] [place] [facility] [address] [facility] [id number] [place] [address]- 8667 Jun, 2014 [facility] [place] [facility] [address] [id number] [place] [address]- 5282 Jun, 2014 [facility] [place] [facility] [address] [facility] [id number] [place] [address]- 6996 Jun, 2014 [facility] [place] [facility] [address] [facility] [id number] [address]- 8532 Jun, [facility] [address] [id number] [place] [address]- 9440 Apr, [facility] [place] [facility] [address] [id number] [place] [address]- 1213 Apr, [facility] [place] [facility] [address] [id number] [place] [address]- 5680 Apr, [facility] [place] [facility] [address] [id number] [place] [address]- 9023 Apr, [facility] [place] [facility] [address] [id number] [place] [address]- 0881 Apr, [facility] [place] [facility] [address] [id number] [place] [address]- 6421 Apr, [facility] [place] [facility] [address] [id number] [place] [address]- 9418 Apr, [facility] [place] [facility] [address] [id number] [place] [address]- 6026 Apr, [facility] [place] [facility] [address] [id number] [place] [address]- 0065 Apr, [facility] [place] [facility] [address] [id number] [place] [address]- 4893 Apr, [facility] [place] [facility] [address] [id number] [place] [address]- 7706 Apr, [facility] [place] [facility] [address] [id number] [place] [address]- 0640 Apr, [facility] [place] [facility] [address] [id number] [place] [address]- 8572 Apr, [facility] [place] [facility] [address] [id number] [place] [address]- 5558 Apr, [facility] [place] [facility] [address] [id number] [place] [address]- 9503 Apr, [facility] [place] [facility] [address] [id number] [place] [address]- 1525 Feb, [facility] [place] [facility] [address] [id number] [place] [address]- 2607 Feb, [facility] [place] [facility] [address] [id number] [place] [address]- 5393 Feb, [facility] [place] [facility] [address] [id number] [place] [address]- 1466 Feb, [facility] [place] [facility] [address] [id number] [place] [address]- 4139 Feb, [facility] [place] [facility] [address] [id number] [place] [address]- 1474 Feb, [facility] [place] [facility] [address] [id number] [place] [address]- 7665 Jan, 2013 [facility] [place] [facility] [address] [id number] [place] [address]- 1728 Jan, 2013 [facility] [place] [facility] [address] [id number] [place] [address]- 7449 Jan, 2013 [facility] [place] [facility] [address] [id number] [place] [address]- 2532 Jan, 2013 [facility] [place] [facility] [address] [id number] [place] [address]- 9363 Jan, 2013 [facility] [place] [facility] [address] [id number] [place] [address]- 0472 Jan, 2013 [facility] [place] [facility] [address] [id number] [place] [address]- 9724 Dec, [facility] [place] [facility] [address] [id number] [place] [address]- 1021 Dec, [facility] [place] [facility] [address] [id number] [place] [address]- 5702 Dec, [facility] [place] [facility] [address] [id number] [place] [address]- 6210 Dec, [facility] [place] [facility] [address] [id number] [place] [address]- 9524 Nov, [facility] [place] [facility] [address] [id number] [place] [address]- 7950 Nov, [facility] [place] [facility] [address] [id number] [place] [address]- 4125 Nov, [facility] [place] [facility] [address] [id number] [place] [address]- 4329 Nov, [facility] [place] [facility] [address] [id number] [place] [address]- 0203 Nov, [facility] [place] [facility] [address] [id number] [place] [address]- 7021 Nov, [facility] [place] [facility] [address] [id number] [place] [address]- 3645 Nov, [facility] [place] [facility] [address] [id number] [place] [address]- 0516 Nov, [facility] [place] [facility] [address] [id number] [place] [address]- 3719 Oct, [facility] [place] [facility] [address] [id number] [place] [address]- 9868 Oct, [facility] [place] [facility] [address] [id number] [place] [address]- 1679 Oct, [facility] [place] [facility] [address] [id number] [place] [address]- 5998 Oct, [facility] [place] [facility] [address] [id number] [place] [address]- 6144 Oct, [facility] [place] [facility] [address] [id number] [place] [address]- 2988 Oct, [facility] [place] [facility] [address] [id number] [place] [address]- 8530 Oct, [facility] [place] [facility] [address] [id number] [place] [address]- 6669 26 Oct, 2013 [facility] [place] [facility] [address] [id number] [place] [address]- 6222 Oct, [facility] [place] [facility] [address] [id number] [place] [address]- 2881 Oct, [facility] [place] [facility] [address] [id number] [place] [address]- 0815 Oct, [facility] [place] [facility] [address] [id number] [place] [address]- 0692 23 Oct, 2013 [facility] [place] [facility] [address] [id number] [place] [address]- 1700 18 Oct, 2013 [facility] [place] [facility] [address] [id number] [place] [address]- 9216 18 Oct, 2013 [facility] [place] [facility] [address] [id number] [place] [address]- 1791 17 Oct, 2013 [facility] [place] [facility] [address] [id number] [place] [address]- 0013 17 Oct, 2013 [facility] [place] [facility] [address] [id number] [place] [address] 16 Oct, 2013 [facility] [place] [facility] [address] [facility] [id number] [place] [address] 16 Oct, 2013 [facility] [place] [facility] [address] [id number] [place] [address] 13 Oct, 2013 [facility] [place] [facility] [address] [id number] [place] [address] 13 Oct, 2013 [facility] [place] [facility] [address] [id number] [place] [address] 11 Oct, 2013 [facility] [place] [facility] [address] [id number] [place] [address] Oct, [facility] [place] [facility] [address] [id number] [place] [address] Oct, [facility] [place] [facility] [address] [id number] [place] [address] Oct, [facility] [place] [facility] [address] [id number] [place] [address] 2008 Oct, [facility] [place] [facility] [address] [id number] [place] [address] Oct, [facility] [place] [facility] [address] [id number] [place] [address] Oct, [facility] [place] [facility] [address] [id number] [place] [address] Oct, [facility] [place] [facility] [address] [id number] [place] [address] Oct, [facility] [place] [facility] [address] [id number] [place] [address] Oct, [facility] [place] [facility] [address] [id number] [place] [address] September, [facility] [place] [facility] [address] [id number] [place] [address] September, [facility] [place] [facility] [address] [id number] [place] [address] September, [facility] [place] [facility] [address] [id number] [place] [address] September, [facility] [place] [facility] [address] [id number] [place] [address] September, [facility] [place] [facility] [address] [id number] [place] [address]- [address] September, [facility] [place] [facility] [address] [id number] [place] [address] September, [facility] [place] [facility] [address] [id number] [place] [address] September, [facility] [place] [facility] [address] [id number] [place] [address] September, [facility] [place] [facility] [address] [id number] [place] [address] September, [facility] [place] [facility] [address] [id number] [place] [address] September, [facility] [place] [facility] [address] [id number] [place] [address] September, [facility] [place] [facility] [address] [id number] [place] [address] September, [facility] [place] [facility] [address] [id number] [place] [address] September, [facility] [place] [facility] [address] [id number] [place] [address] September, [facility] [place] [facility] [address] [id number] [place] [address] September, [facility] [place] [facility] [address] [id number] [place] [address] 269[address] September, [facility] [place] [facility] [address] [id number] [place] [address] September, [facility] [place] [facility] [address] [id number] [place] [address] Aug, [facility] [place] [facility] [address] [id number] [place] [address] Aug, [facility] [place] [facility] [address] [id number] [place] [address] Aug, [facility] [place] [facility] [address] [id number] [place] [address] Aug, [facility] [place] [facility] [address] [id number] [place] [address] Aug, [facility] [place] [facility] [address] [id number] [place] [address] Aug, [facility] [place] [facility] [address] [id number] [place] [address] Jul, [facility] [place] [facility] [address] [id number] [place] [address] Jul, [facility] [place] [facility] [address] [id number] [place] [address] Jul, [facility] [place] [facility] [address] [id number] [place] [address] 9344 Jul, [facility] [place] [facility] [address] [id number] [place] [address] Jun, [facility] [place] [facility] [address] [id number] [place] [address] 7797 Jun, [facility] [place] [facility] [address] [id number] [place] [address] 8840 Jun, [facility] [place] [facility] [address] [id number] [place] [address] 54[address] Jun, [facility] [place] [facility] [address] [id number] [place] [address] 376[address] Mar, [facility] [place] [facility] [address] [id number] [place] [address] 9794 14 Mar, 2013 [facility] [place] [facility] [address] [id number] [place] [address] 7798 Mar, [facility] [place] [facility] [address] [id number] [place] [address] 2888 Mar, [facility] [place] [facility] [address] [id number] [place] [address] 7814 Feb, [facility] [place] [facility] [address] [id number] [place] [address]- 5611 Feb, [facility] [place] [facility] [address] [id number] [place] [address] 4148 Feb, [facility] [place] [facility] [address] [id number] [place] [address] 2168 Jan, [facility] [place] [facility] [address] [id number] [place] [address]- 5527 Jan, [facility] [place] [facility] [address] [id number] [place] [address]- 4323 Jan, [facility] [place] [facility] [address] [id number] [place] [address]- 1011 Jan, [facility] [place] [facility] [address] [id number] [place] [address]- 1623 Dec, [facility] [place] [facility] [address] [id number] [place] [address]- 4531 Dec, [facility] [place] [facility] [address] [id number] [place] [address]- 5668 Dec, [facility] [place] [facility] [address] [id number] [place] [address]- 2474 Dec, [facility] [place] [facility] [address] [id number] [place] [address]- 9089 Nov, [facility] [place] [facility] [address] [id number] [place] [address]- 3595 Nov, [facility] [place] [facility] [address] [id number] [place] [address]- 2644 Nov, [facility] [place] [facility] [address] [id number] [address] 36[address] Nov, [facility] [place] [facility] [address] [id number] [address] 9728 Nov, [facility] [place] [facility] [address] [id number] [place] [address]- 0485 Nov, [facility] [place] [facility] [address] [id number] [place] [address] 3048 Oct, [facility] [place] [facility] [address] [id number] [place] [address]- 0850 Oct, [facility] [place] [facility] [address] [id number] [place] [address]- 0942 25 Oct, 2012 [facility] [address] [id number] [place] [address]- 3666 21 Oct, 2012 [facility] [place] [facility] [address] [id number] [place] [address]- 5746 17 Oct, 2012 [facility] [address] [id number] [place] [address]- 3606 16 Oct, 2012 [facility] [place] [facility] [address] [id number] [place] [address]- 5539 14 Oct, 2012 [facility] [address] [id number] [place] [address]- 8046 13 Oct, 2012 [facility] [place] [facility] [address] [id number] [place] [address]- 6212 11 Oct, 2012 [facility] [address] [id number] [place] [address]- 9793 07 Oct, 2012 [facility] [place] [facility] [address] [id number] [place] [address]- 7070 September, [facility] [place] [facility] [address] [id number] [place] [address]- 5071 September, [facility] [place] [facility] [address] [id number] [place] [address]- 5450 September, [facility] [place] [facility] [address] [id number] [place] [address]- 9404 Aug, [facility] [place] [facility] [address] [id number] [place] [address]- 7045 Aug, [facility] [place] [facility] [address] [id number] [place] [address]- 6193 Aug, [facility] [place] [facility] [address] [id number] [place] [address]- 7111 Aug, [facility] [place] [facility] [address] [id number] [place] [address] Jul, [facility] [place] [facility] [address] [id number] [place] [address]- 4777 29 Jul, 2012 [facility] [address] [id number] [place] [address]- [address]209 Jul, [facility] [address] [id number] [place] [address] 1317 Jul, [facility] [address] [id number] [place] [address]- 1255 Jul, [facility] [address] [id number] [place] [address]- 5291 Jul, [facility] [address] [id number] [place] [address]- 3211 May, [facility] [address] [id number] [place] [address]- 8766 May, [facility] [address] [id number] [place] [address]- 1212 May, [facility] [address] [id number] [place] [address]- 4736 May, [facility] [address] [id number] [place] [address]- 5834 May, [facility] [address] [id number] [place] [address]- 1316 May, [facility] [address] [id number] [place] [address]- 6577 May, [facility] [address] [id number] [place] [address]- 7280 May, [facility] [address] [id number] [place] [address]- 7265 May, [facility] [address] [id number] [place] [address]- 2470 17 May, 2012 [facility] [address] [id number] [place] [address]- 6351 May, [facility] [place] [facility] [address] [id number] [place] [address]- 6947 Apr, [facility] [place] [facility] [address] [id number] [place] [address] Apr, [facility] [place] [facility] [address] [id number] [place] [address]- 4801 Apr, [facility] [place] [facility] [address] [id number] [place] [address]- 7215 Apr, [facility] [place] [facility] [address] [id number] [place] [address]- 2355 Apr, [facility] [place] [facility] [address] [id number] [place] [address]- 0245 Apr, [facility] [place] [facility] [address] [id number] [place] [address]- 1652 Mar, [facility] [place] [facility] [address] [id number] [place] [address]- 3365 Mar, [facility] [place] [facility] [address] [id number] [place] [address]- 6138 Mar, [facility] [place] [facility] [address] [id number] [place] [address]- 1063 Mar, [facility] [place] [facility] [address] [id number] [place] [address]- 6619 Mar, [facility] [place] [facility] [address] [id number] [place] [address]- 2356 Mar, [facility] [place] [facility] [address] [id number] [place] [address]- 8187 Mar, [facility] [place] [facility] [address] [id number] [place] [address]- 9328 Mar, [facility] [place] [facility] [address] [id number] [place] [address]- 4026 Feb, [facility] [place] [facility] [address] [id number] [place] [address]- 9872 23 Feb, 2011 [facility] [place] [facility] [address] [id number] [place] [address]- 6247 16 Feb, 2012 [facility] [place] [facility] [address] [id number] [place] [address]- 1987 15 Feb, 2012 [facility] [place] [facility] [address] [id number] [place] [address]- 2286 15 Feb, 2012 [facility] [place] [facility] [address] [id number] [place] [address]- 7929 13 Feb, 2012 [facility] [place] [facility] [address] [id number] [place] [address]- 2631 Feb, [facility] [place] [facility] [address] [id number] [place] [address]- 9242 Feb, [facility] [place] [facility] [address] [id number] [place] [address]- 7995 Feb, [facility] [place] [facility] [address] [id number] [place] [address]- 7415 Feb, [facility] [place] [facility] [address] [id number] [place] [address]- 8443 Feb, [facility] [place] [facility] [address] [id number] [place] [address]- 8108 Feb, [facility] [place] [facility] [address] [id number] [place] [address]- 8445 Feb, [facility] [place] [facility] [address] [id number] [place] [address]- 4346 Feb, [facility] [place] [facility] [address] [id number] [place] [address]- 2914 Feb, [facility] [place] [facility] [address] [id number] [place] [address]- 0154 Feb, [facility] [place] [facility] [address] [id number] [place] [address]- 4622 Feb, [facility] [place] [facility] [address] [id number] [place] [address]- 7532 Feb, [facility] [place] [facility] [address] [id number] [place] [address]- 8707 Jan, [facility] [place] [facility] [address] [id number] [place] [address]- 8561 13 Jan, 2012 [facility] [place] [facility] [address] [id number] [place] [address]- 3061 11 Jan, 2012 [facility] [place] [facility] [address] [id number] [place] [address]- 4241 10 Jan, 2012 [facility] [place] [facility] [address] [id number] [place] [address]- 9820 05 Jan, 2012 [facility] [place] [facility] [address] [id number] [place] [address]- 7136 Dec, [facility] [place] [facility] [address] [id number] [place] [address]- 0764 Dec, [facility] [place] [facility] [address] [id number] [place] [address]- 5390 Dec, [facility] [place] [facility] [address] [id number] [place] [address]- 4090 Dec, [facility] [place] [facility] [address] [id number] [place] [address]- 0654 Dec, [facility] [place] [facility] [address] [id number] [place] [address]- 8576 Dec, [facility] [place] [facility] [address] [id number] [place] [address]- 4909 Nov, [facility] [place] [facility] [address] [id number] [place] [address]- 2260 Nov, [facility] [place] [facility] [address] [id number] [place] [address]- 7935 Nov, [facility] [place] [facility] [address] [id number] [place] [address]- 6662 Nov, [facility] [address] [id number] [place] [address]- 9247 Nov, [facility] [place] [facility] [address] [id number] [place] [address]- 3324 Oct, [facility] [address] [id number] [place] [address]- 5235 Oct, [facility] [place] [facility] [address] [id number] [place] [address]- 4892 Oct, [facility] [address] [id number] [place] [address]- 2960 September, [facility] [place] [facility] [address] [id number] [place] [address]- 3919 September, [facility] [address] [id number] [place] [address]- 7942 September, [facility] [place] [facility] [address] [id number] [place] [address]- 9868 September, [facility] [address] [id number] [place] [address]- 6836 September, [facility] [address] [id number] [address]- 5252 September, [facility] [address] [id number] [place] [address]- 8047 Aug, [facility] [place] [facility] [address] [id number] [place] [address]- 4805 Aug, [facility] [place] [facility] [address] [id number] [place] [address]- 4389 Aug, [facility] [place] [facility] [address] [id number] [place] [address]- 8867 Jun, [facility] [place] [facility] [address] [id number] [address]- 7017 Jun, [facility] [place] [facility] [address] [id number] [place] [address]- 1974 Jun, [facility] [address] [id number] [place] [address]- 8670 Jun, [facility] [address] [id number] [place] [address]- 7429 May, [facility] [address] [id number] [place] [address]- 8250 May, [facility] [address] [id number] [place] [address]- 9534 May, [facility] [address] [id number] [place] [address]- 0342 May, [facility] [address] [id number] [place] [address]- 9591 May, [facility] [address] [id number] [place] [address]- 0939 Apr, [facility] [address] [id number] [place] [address]- 6549 Apr, [facility] [address] [id number] [place] [address]- 8042 Apr, [facility] [address] [id number] [place] [address]- 8331 Apr, [facility] [address] [id number] [place] [address]- 0660 Apr, [facility] [address] [id number] [place] [address]- 1826 Apr, [facility] [place] [facility] [address] [id number] [place] [address]- 8816 Apr, [facility] [address] [id number] [place] [address]- 1809 Mar, [facility] [address] [id number] [place] [address]- 6022 Mar, [facility] [place] [facility] [address] [id number] [place] [address]- 5772 Mar, [facility] [place] [facility] [address] [id number] [place] [address] Feb, [facility] [place] [facility] [address] [id number] [place] [address]- 2244 Feb, [facility] [place] [facility] [address] [id number] [place] [address]- 9256 Feb, [facility] [place] [facility] [address] [id number] [place] [address]- 5187 Feb, [facility] [place] [facility] [address] [id number] [place] [address]- 7454 Feb, [facility] [place] [facility] [address] [id number] [place] [address]- 3886 Feb, [facility] [place] [facility] [address] [id number] [place] [address]- 5343 Jan, [facility] [place] [facility] [address] [id number] [place] [address]- 1583 Jan, [facility] [place] [facility] [address] [id number] [place] [address]- 5319 September, [facility] [place] [facility] [address] [id number] [place] [address]- 5233 Jun, [facility] [place] [facility] [address] [id number] [place] [address]- 3906 Apr, [facility] [place] [facility] [address] [id number] [place] [address]- 6095 Apr, [facility] [place] [facility] [address] [id number] [place] [address]771 Apr, [facility] [place] [facility] [address] [id number] [place] [address]- 1880 Apr, [facility] [place] [facility] [id number] [address]- 7067 Apr, [facility] [id number] [address]- 5044 Mar, [facility] [id number] [address]- 0839 Mar, [facility] [id number] 7226 Mar, [facility] [id number] [address]- 8439 Mar, [facility] [id number] [place] [address] 397824- 9025 Feb, [facility] [id number] [address]- 4071 15 Jan, 2010 [facility] [id number] [place] [address]- 2365 Mar, [facility] [id number] [address]- 1995 Jan, [facility] [id number] [address]- 2045 Oct, [facility] [address] [id number] [address]- 5362 Apr, IMMUNIZATIONS No Known Immunizations SOCIAL HISTORY [...]
--- OUTSIDE RECORDS SUMMARY | 2018-03-22 21:51 | XMS REPORT ---
Author Author BRITANY BOSCH [facility] Address [address] [place] [address] Care Team Providers Care Manager Discovery Name Role Phone RENÉNas BRITANY Unavailable PROBLEMS Type Condition ICD9-CM Code [id number] Code Onset Dates Condition Status SNOMED Code Problem Other chronic pain G89.29 Active 01280181 Problem Pain in left foot M79.672 Active 107181029507296 Problem Plantar wart of right foot B07.0 Active 57041250 Problem Obesity (BMI 30-39.9) E66.9 Active 412604088 Problem Heartburn R12 Active 19151162 Problem Rhinosinusitis J32.9 Active 38589722 Problem Other obesity due to excess calories E66.09 Active 177122500 Problem Pain in right foot M79.671 Active [id number] Problem Alternating constipation and diarrhea R19.8 Active 110531400 Problem Acute non-recurrent maxillary sinusitis J01.00 Active 02442202 Problem Essential hypertension I10 Active 08247268 Problem Bilateral low back pain without sciatica M54.5 Active 931340482 Problem Irritable bowel syndrome without diarrhea K58.9 Active 42259807 Problem Bilateral low back pain, with sciatica presence unspecified M54.5 Active 506246864 Problem High risk bisexual behavior Z72.53 Active 660379801 Problem Long-term use of high-risk medication Z79.899 Active 512289553 Problem Pre-diabetes R73.03 Active 494940444 Problem Impacted cerumen of right ear H61.21 Active 11733269 Problem Anxiety F41.9 Active 38223502 Problem Folliculitis L73.9 Active 34397372 ALLERGIES No Information ENCOUNTERS Encounter Location Date Diagnosis [facility] [place] [address] [id number] [address] September, Pre-diabetes R73.03 [facility] [place] [id number] [place] [address] 46906- 2225 Aug, [facility] [place] [id number] [place] [address] 48112- 3054 Jul, Bilateral low back pain without sciatica M54.5 [facility] [place] [id number] [place] [address] 46329- 6283 Jun, [facility] [place] [address] 29347- 5914 Jun, [facility] [place] [id number] [place] [address] 77773- 8380 Jun, [facility] [place] [id number] [place] [address] 82699- 6251 May, [facility] [place] [id number] [place] [address] 01974- 6642 May, Ingrown left greater toenail L60.0 [facility] [place] [id number] [place] [address] 98430- 5844 May, [facility] [id number] [place] [address] 91885 -8878 May, Influenza A J10.1 ; Fever R50.9 and Body aches R52 [facility] [place] [id number] [place] [address] 18234- 6686 Apr, [facility] [place] [id number] [place] [address] 71127- 7185 Apr, [facility] [place] [id number] [place] [address] 87966- 9749 Apr, [facility] [place] [address] 66677- 1549 Apr, Abscess L02.91 and Obesity (BMI 30-39.9) E66.9 [facility] [place] [id number] [place] [address] 99649- 8026 Apr, [place] [id number] [place] [address] 22303- 2227 Apr, [place] [address] 15833- 1251 Mar, Acute non-recurrent maxillary sinusitis J01.00 [place] [id number] [place] [address] 73674- 4979 Feb, Heartburn R12 [place] [address] 37680- 8548 Feb, Heartburn R12 ; Low back pain M54.5 ; Essential hypertension I10 ; Bilateral low back pain without sciatica M54.5 ; Anxiety F41.9 ; Pre-diabetes R73.03 ; Other obesity due to excess calories E66.09 ; Alternating constipation and diarrhea R19.8 ; Dyspepsia R10.13 ; Generalized abdominal pain R10.84 ; Rhinosinusitis J32.9 and Boil L02.92 [place] [id number] [place] [address] 67813- 1219 Jan, Heartburn R12 [place] [id number] [place] [address] 69648- 9045 Jan, [place] [id number] [place] [address] 33611- 1725 Jan, [place] [id number] [place] [address] 16225- 8676 Jan, Acute seasonal allergic rhinitis due to pollen J30.1 and Irritable bowel syndrome without diarrhea K58.9 [place] [id number] [place] [address] 44860- 8633 Dec, Low back pain M54.5 and Acute cystitis with hematuria N30.01 [place] [id number] [place] [address] 13207- 5003 Dec, Low back pain M54.5 and Acute cystitis with hematuria N30.01 [place] [id number] [place] [address] 80087- 3232 Dec, Heartburn R12 ; Essential hypertension I10 ; Acute non- recurrent maxillary sinusitis J01.00 ; Bilateral low back pain without sciatica M54.5 ; Anxiety F41.9 ; Pre-diabetes R73.03 ; Pain in right foot M79.671 ; Pain in left foot M79.672 ; Other obesity due to excess calories E66.09 and Acute cystitis with hematuria N30.01 [place] [address] 22455- 8893 Dec, Bilateral low back pain without sciatica M54.5 ; Acute non- recurrent maxillary sinusitis J01.00 and Pre-diabetes R73.03 [place] [address] 99115- 3239 Oct, [facility] [address] 32798 -0688 Aug, [facility] [address] [address] -[address]75 Aug, Acute vaginitis N76.0 ; Urinary frequency R35.0 ; Screen for STD (sexually transmitted disease) Z11.3 and Abscess L02.[address] 84484- 0423 Aug, Plantar wart of right foot B07.0 [place] [address] 41815- 8885 Jul, Plantar wart of right foot B07.0 [place] [address] 65930- 7076 Jun, [address] 46190- 8275 Jun, Heartburn R12 ; Essential hypertension I10 ; Anxiety F41.9 ; Folliculitis L73.9 and Plantar wart of right foot B07.0 [place] [id number] [place] [address] 1137 Jun, [facility] [address] 17335 -1373 May, Low back pain M54.5 and Other chronic pain G89.29 [place] [address] 71760- 2063 May, [place] [address] 12413- 3638 May, [place] [address] 59803- 5865 May, Heartburn R12 ; Bilateral low back pain without sciatica M54.5 ; Essential hypertension I10 ; Long-term use of high-risk medication Z79.899 ; Anxiety F41.9 ; Impacted cerumen of right ear H61.21 ; Folliculitis L73.9 ; High risk bisexual behavior Z72.53 and General medical exam Z00.00 [place] [address] 14101- 8609 May, [place] [address] 83387- 8858 May, [place] [address] 48142- 4586 Mar, Acute nasopharyngitis J00 ; Acute intractable tension-type headache G44.201 and Cough R05 [place] [id number] [place] [address] 79270- 2218 Jan, [facility] [address] 69691 -4516 Jan, Abscess L02.91 [facility] [place] [address] 71316 -3935 10 Jan, 2016 Urinary urgency R39.15 and Urinary tract infection without hematuria, site unspecified N39.0 [place] [address] [place] [address]- 1019 Jan, [facility] [place] [id number] [place] [address] 38296- 5221 Jan, [facility] [place] [id number] [place] [address] 16265- 9151 Dec, [facility] [place] [id number] [place] [address] 74743- 2045 Dec, Dermatofibroma D23.9 [facility] [place] [id number] [place] [address] 53916- 9775 September, [facility] [place] [id number] [place] [address] 74039- 8152 Aug, [facility] [place] [id number] [place] [address] 72601- 0654 Aug, Pain in left knee M25.562 ; Heartburn R12 ; Bilateral low back pain without sciatica M54.5 ; Essential hypertension I10 ; Ingrown left big toenail L60.0 ; Chronic pain G89.29 ; Irritable bowel syndrome with constipation K58.9 and Skin infection L08.9 [facility] [place] [id number] [place] [address] 92496- 0645 Aug, [facility] [place] [address] [place] [address] 39904- 1102 Jul, [facility] [place] [id number] [place] [address] 26780- 2138 Jun, [facility] [place] [id number] [place] [address] 30639- 8243 Jun, [facility] [place] [id number] [place] [address] 69293- 9314 Jun, [facility] [place] [id number] [place] [address] 12179- 2958 Jun, [facility] [place] [id number] [place] [address] 82695- 1662 Jun, Upper respiratory infection J06.9 ; Bilateral low back pain without sciatica M54.5 and Headache R51 [facility] [place] [id number] [place] [address] 05965- 4310 May, [facility] [place] [id number] [place] [address] 42934- 2437 Apr, Bilateral low back pain without sciatica M54.5 ; Upper respiratory infection J06.9 and Yeast dermatitis B37.2 [facility] [place] [id number] [place] [address] 26368- 3079 Apr, [facility] [place] [address] 43852- 8154 Apr, [facility] [place] [id number] [place] [address] 22302- 9556 Feb, [facility] [place] [id number] [place] [address] 28901- 4577 Feb, [facility] [place] [id number] [place] [address] 32171- 9065 Feb, [facility] [place] [id number] [place] [address] 85321- 2316 Feb, Essential hypertension I10 ; Heartburn R12 ; Irritable bowel syndrome without diarrhea K58.9 ; Bilateral low back pain, with sciatica presence unspecified M54.5 and Upper respiratory infection J06.9 [facility] [place] [id number] [place] [address] 41837- 2927 Feb, [facility] [place] [id number] [place] [address] 73402- 1350 Feb, Generalized anxiety disorder F41.1 and Grief F43.20 [facility] [place] [id number] [place] [address] 45846- 3247 Jan, [facility] [place] [id number] [place] [address] 45796- 0833 Jan, Back pain 724.5 ; Upper respiratory infection 465.9 ; HTN ( hypertension) 401.9 and Dyspepsia 536.8 [place] [id number] [place] [address] 71065- 0990 Dec, [facility] [place] [id number] [place] [address] 46941- 8489 Nov, Back pain 724.5 ; Abdominal pain, bilateral lower quadrant 789.03 ; GERD (gastroesophageal reflux disease) 530.81 ; Upper respiratory infection 465.9 ; Dysuria 788.1 and HTN (hypertension) 401.9 [place] [id number] [place] [address] 43463- 3527 Nov, [place] [id number] [place] [address] 56332- 3490 Nov, [place] [address] 08057- 2286 Nov, [place] [id number] [place] [address] 00408- 3300 Nov, Cough 786.2 [place] [address] 88714- 0750 Nov, Cough 786.2 [place] [id number] [place] [address] 45993- 1322 Oct, Unspecified episodic mood disorder 296.90 and Anxiety disorder, unspecified 300.00 [place] [id number] [place] [address] 93574- 3076 Oct, Abdominal pain, left upper quadrant 789.02 ; Essential hypertension, benign 401.1 ; Irritable bowel syndrome 564.1 ; Abscess 682.9 ; Heartburn 787.1 ; Acute sinusitis, unspecified 461.9 ; Muscle spasm of back 724.8 ; Cough 786.2 and Skin tag 701.9 [place] [id number] [place] [address] 02797- 2319 September, [facility] [place] [facility] [address] [id number] [place] [address]- 0701 September, [facility] [place] [facility] [address] [id number] [place] [address]- 9440 September, [facility] [place] [facility] [address] [id number] [place] [address]- 8918 Aug, [facility] [place] [facility] [address] [id number] [place] [address]- 7279 Aug, [facility] [place] [facility] [address] [id number] [place] [address]- 6437 Jul, [facility] [place] [facility] [address] [id number] [place] [address]- 4049 Jul, [facility] [place] [facility] [address] [id number] [place] [address]- 4425 Jul, [facility] [place] [facility] [address] [id number] [place] [address]- 8216 Jul, [facility] [place] [facility] [address] [id number] [place] [address]- 5294 Jul, [facility] [place] [facility] [address] [id number] [place] [address]- 7452 Jul, [facility] [place] [facility] [address] [id number] [place] [address]- 0775 Jul, [facility] [place] [facility] [address] [id number] [place] [address]- 3729 Jul, [facility] [place] [facility] [address] [id number] [place] [address]- 1949 Jul, [facility] [place] [facility] [address] [id number] [place] [address]- 2535 Jul, [facility] [place] [facility] [address] [id number] [place] [address]- 5019 Jul, [facility] [place] [facility] [address] [id number] [place] [address]- 2546 Jul, [facility] [place] [facility] [address] [id number] [place] [address]- 4267 Jul, [facility] [place] [facility] [address] [id number] [place] [address]- 8950 Jul, 2014 [facility] [place] [facility] [address] [facility] [id number] [place] [address]- 7262 Jul, 2014 [facility] [place] [facility] [address] [id number] [place] [address]- 8559 Jul, 2014 [facility] [place] [facility] [address] [id number] [place] [address]- 0662 Jul, 2014 [facility] [place] [facility] [address] [facility] [id number] [place] [address]- 3900 Jun, 2014 [facility] [place] [facility] [address] [facility] [id number] [place] [address]- 8989 Jun, 2014 [facility] [place] [facility] [address] [facility] [id number] [place] [address]- 2362 Jun, 2014 [facility] [place] [facility] [address] [facility] [id number] [place] [address]- 2908 Jun, 2014 [facility] [place] [facility] [address] [facility] [id number] [place] [address]- 8394 Jun, 2014 [facility] [place] [facility] [address] [facility] [id number] [place] [address]- 9784 Jun, 2014 [facility] [place] [facility] [address] [facility] [id number] [place] [address]- 9016 Jun, 2014 [facility] [place] [facility] [address] [facility] [id number] [place] [address]- 7124 Jun, 2014 [facility] [place] [facility] [address] [facility] [id number] [place] [address]- 6654 Apr, [facility] [place] [facility] [address] [facility] [id number] [place] [address]- 6979 Apr, [facility] [place] [facility] [address] [id number] [place] [address]- 3351 Apr, [facility] [place] [facility] [address] [id number] [place] [address]- 1252 Apr, [facility] [place] [facility] [address] [id number] [place] [address]- 5590 Apr, [facility] [place] [facility] [address] [id number] [place] [address]- 9564 Apr, [facility] [place] [facility] [address] [id number] [place] [address]- 3611 Apr, [facility] [place] [facility] [address] [id number] [place] [address]- 7476 Apr, [facility] [place] [facility] [address] [id number] [place] [address]- 7960 Apr, [facility] [place] [facility] [address] [id number] [place] [address]- 0238 Apr, [facility] [place] [facility] [address] [id number] [place] [address]- 9907 Apr, [facility] [place] [facility] [address] [id number] [place] [address]- 2349 Apr, [facility] [place] [facility] [address] [id number] [place] [address]- 1415 Apr, [facility] [place] [facility] [address] [id number] [place] [address]- 3773 Apr, [facility] [place] [facility] [address] [id number] [place] [address]- 0726 Apr, [facility] [place] [facility] [address] [id number] [place] [address]- 2799 Feb, [facility] [place] [facility] [address] [id number] [place] [address]- 0968 13 Feb, 2014 [facility] [place] [facility] [address] [id number] [place] [address]- 1863 Feb, [facility] [place] [facility] [address] [id number] [place] [address]- 5341 Feb, [facility] [place] [facility] [address] [id number] [place] 1563 Feb, [facility] [place] [facility] [address] [id number] [place] [address]- 0068 Feb, [facility] [place] [facility] [address] [id number] [place] [address]- 3621 Jan, [facility] [place] [facility] [address] [id number] [place] [address]- 4471 Jan, [facility] [place] [facility] [address] [id number] [place] [address]- 3436 Jan, [facility] [place] [facility] [address] [id number] [place] [address]- 7014 Jan, [facility] [place] [facility] [address] [id number] [place] [address]- 2423 Jan, [facility] [place] [facility] [address] [id number] [place] [address]- 2998 Jan, [facility] [place] [facility] [address] [id number] [place] [address]- 7262 Dec, [facility] [place] [facility] [address] [id number] [place] [address]- 5652 Dec, [facility] [place] [facility] [address] [id number] [place] [address]- 5659 Dec, [facility] [place] [facility] [address] [id number] [place] [address]- 2220 Dec, [facility] [place] [facility] [address] [id number] [place] [address]- 6081 Nov, [facility] [place] [facility] [address] [id number] [place] [address]- 0671 Nov, [facility] [place] [facility] [address] [id number] [place] [address]- 9554 Nov, [facility] [place] [facility] [address] [id number] [place] [address]- 3410 Nov, [facility] [place] [facility] [address] [id number] [place] [address]- 8823 Nov, [facility] [place] [facility] [address] [id number] [place] [address]- 6742 Nov, [facility] [place] [facility] [address] [id number] [place] [address]- 6993 Nov, [facility] [place] [facility] [address] [id number] [place] [address]- 5925 Nov, [facility] [place] [facility] [address] [id number] [place] [address] Oct, [facility] [place] [facility] [address] [id number] [place] [address] Oct, [facility] [place] [facility] [address] [id number] [place] [address] Oct, [facility] [place] [facility] [address] [id number] [place] [address] Oct, [facility] [place] [facility] [address] [id number] [place] [address] Oct, [facility] [place] [facility] [address] [id number] [place] [address] Oct, [facility] [place] [facility] [address] [id number] [place] [address] Oct, [facility] [place] [facility] [address] [id number] [place] [address] Oct, [facility] [place] [facility] [address] [id number] [place] [address] Oct, [facility] [place] [facility] [address] [id number] [place] [address] Oct, [facility] [place] [facility] [address] [id number] [place] [address] Oct, [facility] [place] [facility] [address] [id number] [place] [address] Oct, [facility] [place] [facility] [address] [id number] [place] [address] 18 Oct, 2013 [facility] [place] [facility] [address] [id number] [place] [address] 18 Oct, 2013 [facility] [place] [facility] [address] [id number] [place] [address]- [address] 17 Oct, 2013 [facility] [place] [facility] [address] [id number] [place] [address] 17 Oct, 2013 [facility] [place] [facility] [address] [id number] [place] [address]- [address] 16 Oct, 2013 [facility] [place] [facility] [address] [id number] [place] [address]- [address] 16 Oct, 2013 [facility] [place] [facility] [address] [id number] [place] [address] Oct, [facility] [place] [facility] [address] [id number], [place] [address] Oct, [facility] [place] [facility] [address] [id number], [place] [address] Oct, [facility] [place] [facility] [address] [id number], [place] [address] Oct, [facility] [place] [facility] [address] [id number] [place] [address] Oct, [facility] [place] [facility] [address] [id number], [place] [address] Oct, [facility] [place] [facility] [address] [id number], [place] [address] 06 Oct, 2013 [facility] [place] [facility] [address] [id number], [place] [address] Oct, [facility] [place] [facility] [address] [id number] [place] [address] Oct, [facility] [place] [facility] [address] [id number] [place] [address] Oct, [facility] [place] [facility] [address] [id number] [place] [address] Oct, [facility] [place] [facility] [address] [id number] [place] [address] Oct, [facility] [place] [facility] [address] [id number] [place] [address] September, [facility] [place] [facility] [address] [id number] [place] [address]- [address] September, [facility] [place] [facility] [address] [id number] [place] [address]- [address] September, [facility] [place] [facility] [address] [id number] [place] [address] September, [facility] [place] [facility] [address] [id number] [place] [address] September, [facility] [facility] [address] [id number] [place] [address] September, [facility] [address] [id number] [place] [address] September, [facility] [address] [id number] [place] [address] 8673 September, [facility] [facility] [address] [id number] [place] [address]600 September, [facility] [address] [id number] [place] [address] 12[address] September, [facility] [address] [id number] [place] [address]- 6551 September, [facility] [address] [id number] [place] [address]- 7592 September, [facility] [place] [address] [id number] [place] [address]- 4955 September, [facility] [address] [id number] [place] [address]- 8792 September, [facility] [place] [facility] [address] [id number] [place] [address]- 8241 September, [facility] [place] [facility] [address] [id number] [place] [address]- 6274 September, [facility] [address] [id number] [place] [address]- 5347 September, [facility] [address] [id number] [place] [address]- 5835 September, [facility] [place] [facility] [address] [id number] [place] [address]- 4579 Aug, [facility] [address] [id number] [place] [address]- 4632 Aug, [facility] [place] [address] [id number] [place] [address]- 5873 Aug, [facility] [address] [id number] [place] [address]- 5725 Aug, [facility] [address] [id number] [place] [address]- 3111 Aug, [facility] [place] [address] [id number] [place] [address]- 1387 Aug, [facility] [place] [facility] [address] [id number] [place] [address]- 2388 Jul, [facility] [address] [id number] [place] [address]- 9334 Jul, [facility] [address] [id number] [place] [address]- 2493 Jul, [facility] [address] [id number] [place] [address]- 2309 Jul, [facility] [address] [id number] [place] [address]- 3862 Jun, [facility] [address] [id number] [place] [address]- 8967 Jun, [facility] [address] [id number] [place] [address]- 6616 Jun, [facility] [address] [id number] [place] [address]- 9893 Jun, [facility] [address] [id number] [place] [address]- 2815 Mar, [facility] [address] [id number] [place] [address]- 6659 Mar, [facility] [address] [id number] [place] [address]- 9679 Mar, [facility] [address] [id number] [place] [address]- 5320 Mar, [facility] [address] [id number] [place] [address]- 3592 Feb, [facility] [address] [id number] [place] [address]- 4726 Feb, [facility] [address] [id number] [place] [address]- 9421 Feb, [facility] [address] [id number] [place] [address]- 4739 Jan, [facility] [address] [id number] [place] [address]- 5310 20 Jan, 2013 [facility] [address] [id number] [place] [address]- 9454 12 Jan, 2013 [facility] [address] [id number] [place] [address]- 4920 Jan, [facility] [address] [id number] [place] [address]- 8400 Dec, [facility] [address] [id number] [place] [address]- 4149 Dec, [facility] [address] [id number] [place] [address]- 9758 Dec, [facility] [address] [id number] [place] [address]- 8074 Dec, [facility] [address] [id number] [place] [address]- 0594 Nov, [facility] [address] [id number] [place] [address]- 9607 Nov, [facility] [address] [id number] [place] [address]- 3723 Nov, [facility] [address] [id number] [place] [address]- 0914 Nov, [facility] [address] [id number] [place] [address]- 6380 Nov, [facility] [address] [id number] [place] [address]- 1141 Nov, [facility] [address] [id number] [place] [address]- 2291 Oct, [facility] [address] [id number] [place] [address]- 5532 Oct, [facility] [address] [id number] [place] [address]- 4922 Oct, [facility] [address] [id number] [place] [address]- 1007 Oct, [facility] [address] [id number] [place] [address] Oct, [facility] [address] [id number] [place] [address]- 1514 16 Oct, 2012 [facility] [address] [id number] [place] [address]- 0646 14 Oct, 2012 [facility] [address] [id number] [place] [address]- 4018 13 Oct, 2012 [facility] [address] [id number] [place] [address]- 0293 Oct, [facility] [address] [id number] [place] [address]- 0941 Oct, [facility] [address] [id number] [place] [address]- 0535 September, [facility] [address] [id number] [place] [address]- 7035 September, [facility] [address] [id number] [place] [address]- 7548 September, [facility] [address] [id number] [place] [address]- 4407 Aug, [facility] [address] [id number] [place] [address]- 6728 Aug, [facility] [address] [id number] [place] [address]- 2981 Aug, [facility] [address] [id number], [place] [address]- 5757 Aug, [facility] [address] [id number] [place] [address]- 1946 Jul, [facility] [address] [id number] [place] [address]- 9493 Jul, [facility] [address] [id number] [place] [address]- 2416 Jul, [facility] [address] [id number], [place] [address]- 0366 Jul, [facility] [address] [id number] [place] [address]- 6418 Jul, [facility] [address] [id number] [place] [address]- 7397 Jul, [facility] [address] [id number] [place] [address]- 8452 May, [facility] [address] [id number] [place] [address]- 6214 May, [facility] [address] [id number] [place] [address]- 8777 May, [facility] [address] [id number] [place] [address]- 1733 May, [facility] [address] [id number] [place] [address]- 5289 May, [facility] [address] [id number] [place] [address]- 7173 May, [facility] [address] [id number] [place] [address]- 3328 May, [facility] [address] [id number] [place] [address]- 4515 May, [facility] [address] [id number] [place] [address]- 9152 May, [facility] [address] [id number], [place] [address]- 2572 17 May, 2012 [facility] [address] [id number] [place] [address]- 8201 16 May, 2012 [facility] [address] [id number] [place] [address]- 4665 Apr, [facility] [address] [id number] [place] [address]- 2721 Apr, [facility] [address] [id number] [place] [address]- 9176 Apr, [facility] [address] [id number] [place] [address]- 0897 Apr, [facility] [address] [id number] [place] [address]- 4546 Apr, [facility] [address] [id number] [place] [address]- 0609 Apr, [facility] [address] [id number] [place] [address]- 7829 Mar, [facility] [address] [id number] [place] [address]- 1804 Mar, [facility] [address] [id number] [place] [address]- 5111 Mar, [facility] [address] [id number] [place] [address]- 7666 Mar, [facility] [address] [id number] [place] [address]- 6412 Mar, [facility] [address] [id number] [place] [address]- 0228 Mar, [facility] [address] [id number] [place] [address]- 5100 Mar, [facility] [address] [id number] [place] [address]- 8540 Mar, [facility] [address] [id number] [place] [address]- 8982 Feb, [facility] [address] [id number] [place] [address]- 1296 23 Feb, 2012 [facility] [address] [id number] [place] [address]- 4521 16 Feb, 2012 [facility] [address] [id number] [place] [address]- 5468 15 Feb, 2012 [facility] [address] [id number] [place] [address]- 6046 15 Feb, 2012 [facility] [address] [id number] [place] [address]- 5591 13 Feb, 2012 [facility] [address] [id number] [place] [address]- 1226 Feb, [facility] [address] [id number] [place] [address]- 4715 Feb, [facility] [address] [id number] [place] [address]- 5243 Feb, [facility] [address] [id number] [place] [address]- 4892 Feb, [facility] [address] [id number] [place] [address]- 2267 Feb, [facility] [address] [id number], [place] [address]- 8009 Feb, [facility] [address] [id number], [place] [address]- 9776 Feb, [facility] [address] [id number], [place] [address]- 8665 Feb, [facility] [address] [id number], [place] [address]- 6977 Feb, [facility] [address] [id number], [place] [address]- 1598 Feb, [facility] [address] [id number], [place] [address]- 7161 Feb, [facility] [address] [id number], [place] [address]- 3732 Feb, [facility] [address] [id number], [place] [address]- 3014 Jan, [facility] [address] [id number] [place] [address]- 0801 13 Jan, 2012 [facility] [address] [id number] [place] [address]- 9916 11 Jan, 2012 [facility] [address] [id number] [place] [address] 2546 10 Jan, 2012 [facility] [address] [id number] [place] [address] 2546 05 Jan, 2012 [facility] [address] [id number] [place] [address] 2546 Dec, [facility] [address] [id number] [place] [address]- 6727 Dec, [facility] [address] [id number] [place] [address]- 0546 Dec, [facility] [address] [id number] [place] [address]- 8746 Dec, [facility] [address] [id number] [place] [address]- 6040 Dec, [facility] [address] [id number] [place] [address]- 3811 Dec, [facility] [address] [id number] [place] [address]- 0640 Nov, [facility] [address] [id number] [place] [address]- 5216 Nov, [facility] [address] [id number] [place] [address]- 2544 Nov, [facility] [address] [id number] [place] [address]- 1162 Nov, [facility] [address] [id number] [place] [address]- 2546 Nov, [facility] [address] [id number] [place] [address]- 0487 Oct, [facility] [address] [id number] [place] [address]- 2320 Oct, [facility] [address] [id number] [place] [address]- 9211 Oct, [facility] [address] [id number] [place] [address]- 3728 September, [facility] [address] [id number] [place] [address]- 4795 September, [facility] [address] [id number] [place] [address]- 8231 September, [facility] [address] [id number] [place] [address]- 2912 September, [facility] [address] [id number] [place] [address]- 0333 September, [facility] [facility] [address] [id number] [place] [address]- 4938 September, [facility] [address] [id number] [place] [address]- 1299 Aug, [facility] [address] [id number] [place] [address]- 4241 Aug, [facility] [address] [id number] [place] [address]- 8361 Aug, [facility] [address] [id number] [place] [address]- 4326 Jun, [facility] [facility] [address] [id number] [place] [address]- 0702 Jun, [facility] [address] [id number] [place] [address]- 8374 Jun, [facility] [address] [id number] [place] [address]- 5226 Jun, [facility] [facility] [address] [id number], [place] [address]- 5728 May, [facility] [address] [id number] [place] [address]- 0148 May, [facility] [facility] [address] [id number] [place] [address]- 3160 May, [facility] [address] [facility] [id number] [place] [address]- 0977 May, [facility] [address] [id number] [place] [address]- 3903 May, [facility] [address] [facility] [id number] [place] [address], [place] [address]- 7739 Apr, [facility] [facility] [address] [id number] [place] [address]- 8723 Apr, [facility] [address] [facility] [id number] [place] [address]- 1479 Apr, [facility] [place] [facility] [address] [facility] [id number] [place] [address]- 5119 Apr, [facility] [address] [facility] [id number] [place] [address]- 5847 Apr, [facility] [address] [facility] [id number] [place] [address]- 9458 Apr, [facility] [address] [facility] [id number] [place] [address]- 4038 16 Apr, 2011 [facility] [place] [facility] [address] [id number], [place] [address]- 6996 Mar, [facility] [place] [facility] [address] [id number] [place] [address]- 8831 Mar, [facility] [place] [facility] [address] [facility] [id number] [place] [address]- 2665 15 Mar, 2011 [facility] [place] [facility] [address] [facility] [id number] [place] [address]- 1336 Feb, [facility] [place] [facility] [address] [id number] [place] [address]- 8898 Feb, [facility] [place] [facility] [address] [id number] [place] [address]- 2186 Feb, [facility] [place] [facility] [address] [id number] [place] [address] 2546 Feb, [facility] [place] [facility] [address] [id number] [place] [address] 2546 Feb, [facility] [place] [facility] [address] [id number] [place] [address] 2544 Feb, [facility] [place] [facility] [address] [id number] [place] [address]- 4546 Jan, [facility] [place] [facility] [address] [id number] [place] [address]- 7042 Jan, [facility] [place] [facility] [address] [id number] [place] [address]- 7727 September, [facility] [place] [facility] [address] [id number] [place] [address]- 6618 Jun, [facility] [place] [facility] [address] [id number] [place] [address]34 Apr, [facility] [place] [facility] [address] [id number] [place] [address] 2546 Apr, [facility] [place] [facility] [address] [id number] [place] [address] 2546 Apr, [facility] [place] [facility] [address] [id number] [place] [address] 2546 Apr, [facility] [place] [facility] [address] [id number] [place] [address] 2546 Apr, [facility] [place] [facility] [address] [id number] [place] [address] 2546 Mar, [facility] [place] [facility] [address] [id number] [place] [address]- 0809 Mar, [facility] [place] [address] [id number], [place] [address]- 8265 Mar, [facility] [place] [id number], [place] [address]- 1766 Mar, [facility] [place] [address]00565[address], [place] [address]- 2587 Feb, [facility] [place] [id number] [place] [address]- 1748 15 Jan, 2010 [facility] [place] [address]65[address], [place] [address]- 8199 Mar, [facility] [place] [address]65[address], [place] [address]- 7066 Jan, [facility] [place] [address]65[address], [place] [address]- 3164 Oct, [facility] [place] [address]65[address], [place] [address]- 7720 Apr, IMMUNIZATIONS No Known Immunizations SOCIAL HISTORY Never Assessed REASON FOR VISIT Referral inquiry PLAN OF CARE VITAL SIGNS MEDICATIONS Unknown [...]
--- OUTSIDE RECORDS SUMMARY | 2018-03-22 21:52 | XMS REPORT ---
Author Author BRITANY BOSCH [facility] Address [address] [place] [address] Care Team Providers Care Juvenile Justice Officer Name Role Phone DANITZA BRITANY Unavailable PROBLEMS Type Condition ICD9-CM Code ULI81-LQ Code Onset Dates Condition Status SNOMED Code Problem Other chronic pain G89.29 Active 57347993 Problem Pain in left foot M79.672 Active [id number] Problem Plantar wart of right foot B07.0 Active 99032580 Problem Obesity (BMI 30-39.9) E66.9 Active 530039620 Problem Heartburn R12 Active 38334469 Problem Rhinosinusitis J32.9 Active 34068041 Problem Other obesity due to excess calories E66.09 Active 823453452 Problem Pain in right foot M79.671 Active [id number] Problem Alternating constipation and diarrhea R19.8 Active 121369363 Problem Acute non-recurrent maxillary sinusitis J01.00 Active 33610323 Problem Essential hypertension I10 Active 53354580 Problem Bilateral low back pain without sciatica M54.5 Active 307582429 Problem Irritable bowel syndrome without diarrhea K58.9 Active 12661012 Problem Bilateral low back pain, with sciatica presence unspecified M54.5 Active 562996484 Problem High risk bisexual behavior Z72.53 Active 729202995 Problem Long-term use of high-risk medication Z79.899 Active 134906071 Problem Pre-diabetes R73.03 Active 278992621 Problem Impacted cerumen of right ear H61.21 Active 64133682 Problem Anxiety F41.9 Active 86195519 Problem Folliculitis L73.9 Active 12305004 ALLERGIES No Information ENCOUNTERS Encounter Location Date Diagnosis [facility] [address] [facility] [id number] [address] Nov, [facility] [id number] [place] [address] 96803- 1910 Oct, Abscess of groin, left L02.214 and Pre-diabetes R73.03 [facility] [address] [address]- 8620 September, Pre-diabetes R73.03 [facility] [address] 99754- 0906 Aug, [facility] [address] 00823- 0572 Jul, Bilateral low back pain without sciatica M54.5 [facility] [address] [address]51- 6568 Jun, [facility] [address] 47654- 0595 Jun, [facility] [address] 61639- 7324 Jun, [facility] [address] [address]- 5310 May, [facility] [address] [address]32- 9360 May, Ingrown left greater toenail L60.0 [facility] [id number] [place] [address] 03440- 9335 May, [facility] [address] [address] May, Influenza A J10.1 ; Fever R50.9 and Body aches R52 [facility] [address] [address]37- 0952 Apr, [facility] [address] 96559- 1328 Apr, [facility] [address] 93454- 2213 Apr, [place] [id number] [place] [address] 91150- 0532 05 Apr, 2017 Abscess L02.91 and Obesity (BMI 30-39.9) E66.9 [place] [id number] [place] [address] 68542- 6839 Apr, [place] [address] 36581- 7311 Apr, [place] [address] 22390- 0418 Mar, Acute non-recurrent maxillary sinusitis J01.00 [place] [address] 04326- 3609 Feb, Heartburn R12 [place] [address] 86813- 4856 Feb, Heartburn R12 ; Low back pain M54.5 ; Essential hypertension I10 ; Bilateral low back pain without sciatica M54.5 ; Anxiety F41.9 ; Pre-diabetes R73.03 ; Other obesity due to excess calories E66.09 ; Alternating constipation and diarrhea R19.8 ; Dyspepsia R10.13 ; Generalized abdominal pain R10.84 ; Rhinosinusitis J32.9 and Boil L02.92 [place] [id number] [place] [address] 76551- 9761 Jan, Heartburn R12 [place] [id number] [place] [address] 78719- 4572 Jan, [place] [id number] [place] [address] 02332- 5165 Jan, [place] [id number] [place] [address] 05400- 0688 Jan, Acute seasonal allergic rhinitis due to pollen J30.1 and Irritable bowel syndrome without diarrhea K58.9 [place] [address] 31794- 9617 Dec, Low back pain M54.5 and Acute cystitis with hematuria N30.01 [place] [address] 00295- 6187 Dec, Low back pain M54.5 and Acute cystitis with hematuria N30.01 [place] [address] 16047- 6636 Dec, Heartburn R12 ; Essential hypertension I10 ; Acute non- recurrent maxillary sinusitis J01.00 ; Bilateral low back pain without sciatica M54.5 ; Anxiety F41.9 ; Pre-diabetes R73.03 ; Pain in right foot M79.671 ; Pain in left foot M79.672 ; Other obesity due to excess calories E66.09 and Acute cystitis with hematuria N30.01 [place] [address] 01516- 1734 Dec, Bilateral low back pain without sciatica M54.5 ; Acute non- recurrent maxillary sinusitis J01.00 and Pre-diabetes R73.03 [place] [address] 91704- 3312 Oct, [facility] [address] 83197 -8783 Aug, [facility] [address] 84622 -3475 Aug, Acute vaginitis N76.0 ; Urinary frequency R35.0 ; Screen for STD (sexually transmitted disease) Z11.3 and Abscess L02.91 [place] [address] 16008- 8219 Aug, Plantar wart of right foot B07.0 [place] [address] 29670- 2119 Jul, Plantar wart of right foot B07.0 [place] [address] 09951- 0841 Jun, [facility] [id number] [place] [address] 12650- 7683 Jun, Heartburn R12 ; Essential hypertension I10 ; Anxiety F41.9 ; Folliculitis L73.9 and Plantar wart of right foot B07.0 [place] [id number] [place] [address] 95148- 3746 Jun, [facility] [address] 73988 -4496 May, Low back pain M54.5 and Other chronic pain G89.29 [place] [address] 63182- 9640 May, [place] [address] 57657- 4289 May, [place] [address] 11859- 7715 May, Heartburn R12 ; Bilateral low back pain without sciatica M54.5 ; Essential hypertension I10 ; Long-term use of high-risk medication Z79.899 ; Anxiety F41.9 ; Impacted cerumen of right ear H61.21 ; Folliculitis L73.9 ; High risk bisexual behavior Z72.53 and General medical exam Z00.00 [place] [id number] [place] [address] 85032- 2896 May, [place] [id number] [place] [address] 84471- 5269 May, [place] [id number] [place] [address] 26848- 6329 Mar, Acute nasopharyngitis J00 ; Acute intractable tension-type headache G44.201 and Cough R05 [place] [id number] [place] [address] 44002- 8765 Jan, [facility] [address] 97797 -6306 29 Jan, 2016 Abscess L02.91 [facility] [address] [address] 10 Jan, 2016 Urinary urgency R39.15 and Urinary tract infection without hematuria, site unspecified N39.0 [facility] [address] [address]- 2371 Jan, [facility] [id number] [place] [address] 67620- 2680 Jan, [facility] [address] [address]- 0586 Dec, [facility] [id number] [place] [address] 62932- 8525 Dec, Dermatofibroma D23.9 [facility] [id number] [place] [address] 86323- 6728 September, [facility] [id number] [place] [address] 84467- 5273 Aug, [facility] [id number] [place] [address] 44081- 8262 Aug, Pain in left knee M25.562 ; Heartburn R12 ; Bilateral low back pain without sciatica M54.5 ; Essential hypertension I10 ; Ingrown left big toenail L60.0 ; Chronic pain G89.29 ; Irritable bowel syndrome with constipation K58.9 and Skin infection L08.9 [facility] [address] [address] Aug, [facility] [id number] [place] [address] 32970- 2567 Jul, [facility] [address] [id number] [address]- 8983 Jun, [facility] [address] [address]- 2877 Jun, [place] [address] [address]- 4289 Jun, [facility] [id number] [place] [address] 24675- 3509 Jun, [facility] [id number] [place] [address] 26573- 2877 Jun, Upper respiratory infection J06.9 ; Bilateral low back pain without sciatica M54.5 and Headache R51 [facility] [id number] [place] [address] 17486- 3819 May, [facility] [id number] [place] [address] 43339- 7776 Apr, Bilateral low back pain without sciatica M54.5 ; Upper respiratory infection J06.9 and Yeast dermatitis B37.2 [facility] [id number] [place] [address] 01137- 3743 Apr, [facility] [id number] [place] [address] 47594- 7792 Apr, [facility] [id number] [place] [address] 77915- 5618 Feb, [facility] [id number] [place] [address] 79608- 1181 Feb, [facility] [id number] [place] [address] 62220- 7165 Feb, [facility] [id number] [place] [address] 97990- 8887 Feb, Essential hypertension I10 ; Heartburn R12 ; Irritable bowel syndrome without diarrhea K58.9 ; Bilateral low back pain, with sciatica presence unspecified M54.5 and Upper respiratory infection J06.9 [facility] [id number] [place] [address] 88173- 9611 Feb, [facility] [id number] [place] [address] 44787- 7863 Feb, Generalized anxiety disorder F41.1 and Grief F43.20 [place] [id number] [place] [address] 203141- 0925 Jan, [place] [address] 055889- 2252 Jan, Back pain 724.5 ; Upper respiratory infection 465.9 ; HTN ( hypertension) 401.9 and Dyspepsia 536.8 [place] [id number] [place] [address] 29417- 1600 Dec, [place] [address] 62943- 8672 Nov, Back pain 724.5 ; Abdominal pain, bilateral lower quadrant 789.03 ; GERD (gastroesophageal reflux disease) 530.81 ; Upper respiratory infection 465.9 ; Dysuria 788.1 and HTN (hypertension) 401.9 [place] [address] 58498- 7507 Nov, [place] [id number] [place] [address] 93794- 8339 Nov, [place] [id number] [place] [address] 96063- 4039 Nov, [place] [id number] [place] [address] 80247- 1638 Nov, Cough 786.2 [place] [id number] [place] [address] 14936- 5319 Nov, Cough 786.2 [place] [id number] [place] [address] 47326- 6042 Oct, Unspecified episodic mood disorder 296.90 and Anxiety disorder, unspecified 300.00 [place] [id number] [place] [address] 94124- 2870 Oct, Abdominal pain, left upper quadrant 789.02 ; Essential hypertension, benign 401.1 ; Irritable bowel syndrome 564.1 ; Abscess 682.9 ; Heartburn 787.1 ; Acute sinusitis, unspecified 461.9 ; Muscle spasm of back 724.8 ; Cough 786.2 and Skin tag 701.9 [facility] [address], [place] [address]- 0371 September, [facility] [address] [address]- 4717 September, [facility] [id number] [address]- 1912 September, [facility] [id number] [place] [address] 62930- 5155 Aug, [facility] [id number] [address]- 5940 Aug, [facility] [id number] [place] [address] 82672- 2642 Jul, [facility] [address], [place] [address]- 9742 Jul, [facility] [address] [address]- 0472 Jul, [facility] [address] [address]- 7524 Jul, [facility] [address], [place] [address]- 4016 Jul, [facility] [address], [place] [address]- 7010 Jul, [facility] [address], [place] [address]- 3507 Jul, [facility] [address] 0289 Jul, [facility] [address] 5386 Jul, [facility] [place] [facility] [address] [id number] [place] [address]- 6980 Jul, [facility] [place] [facility] [address] [id number] [place] [address]- 8660 Jul, 2014 [facility] [place] [facility] [address] [id number] [place] [address]- 8518 Jul, [facility] [place] [facility] [address] [id number] [place] [address]- 6082 Jul, 2014 [facility] [place] [facility] [address] [id number] [place] [address]- 2704 Jul, [facility] [place] [facility] [address] [id number] [place] [address]- 7526 Jul, [facility] [place] [facility] [address] [facility] [id number] [place] [address]- 8844 Jul, [facility] [place] [facility] [address] [id number] [place] [address]- 8114 Jul, [facility] [place] [facility] [address] [id number] [place] [address]- 1804 Jun, [facility] [place] [facility] [address] [id number] [place] [address]- 9991 Jun, [facility] [place] [facility] [address] [facility] [id number] [place] [address]- 2856 Jun, [facility] [place] [facility] [address] [id number] [place] [address]- 1894 Jun, 2014 [facility] [place] [facility] [address] [id number] [place] [address]- 5216 Jun, [facility] [place] [facility] [address] [id number] [place] [address]- 6605 Jun, 2014 [facility] [place] [facility] [address] [facility] [id number] [place] [address]- 3318 Jun, 2014 [facility] [place] [facility] [address] [facility] [id number] [place] [address]- 1532 03 Jun, 2014 [facility] [address] [id number] [place] [address]- 5031 Apr, [facility] [place] [facility] [address] [id number] [place] [address]- 9443 Apr, [facility] [place] [facility] [address] [id number] [place] [address]- 2436 Apr, [facility] [place] [facility] [address] [id number] [place] [address]- 1177 Apr, [facility] [place] [facility] [address] [id number] [place] [address]- 3371 Apr, [facility] [place] [facility] [address] [id number] [place] [address]- 0805 Apr, [facility] [place] [facility] [address] [id number] [place] [address]- 8253 Apr, [facility] [place] [facility] [address] [id number] [place] [address]- 4614 Apr, [facility] [place] [facility] [address] [id number] [place] [address]- 8113 Apr, [facility] [place] [facility] [address] [id number] [place] [address]- 4257 Apr, [facility] [place] [facility] [address] [id number] [place] [address]- 8550 Apr, [facility] [place] [facility] [address] [id number] [place] [address]- 2451 Apr, [facility] [place] [facility] [address] [id number] [place] [address]- 6807 04 Apr, 2014 [facility] [place] [facility] [address] [id number] [place] [address]- 8365 04 Apr, 2014 [facility] [place] [facility] [address] [id number] [place] 2597 Apr, [facility] [place] [facility] [address] [id number] [place] [address]- 2949 Feb, [facility] [place] [facility] [address] [id number] [place] [address]- 9083 Feb, [facility] [place] [facility] [address] [id number] [place] [address]- 5976 Feb, [facility] [place] [facility] [address] [id number] [place] [address]- 5621 Feb, [facility] [place] [facility] [address] [id number] [place] [address]- 7021 Feb, [facility] [place] [facility] [address] [id number] [place] [address]- 2417 Feb, [facility] [place] [facility] [address] [id number] [place] [address]- 4966 Jan, 2013 [facility] [place] [facility] [address] [id number] [place] [address]- 8535 Jan, 2013 [facility] [place] [facility] [address] [id number] [place] [address]- 3893 Jan, 2013 [facility] [place] [facility] [address] [id number] [place] [address]- 6373 Jan, 2013 [facility] [place] [facility] [address] [id number] [place] [address]- 5078 Jan, 2013 [facility] [place] [facility] [address] [id number] [place] [address]- 5550 Jan, 2013 [facility] [place] [facility] [address] [id number] [place] [address]- 1942 Dec, [facility] [place] [facility] [address] [id number] [place] [address]- 7582 Dec, [facility] [place] [facility] [address] [id number] [place] [address]- 8388 Dec, [facility] [place] [facility] [address] [id number] [place] [address]- 3462 Dec, [facility] [place] [facility] [address] [id number] [place] [address]- 0135 Nov, [facility] [place] [facility] [address] [id number] [place] [address]- 4288 Nov, [facility] [place] [facility] [address] [id number] [place] [address]- 5790 Nov, [facility] [place] [facility] [address] [id number] [place] [address]- 4374 Nov, [facility] [place] [facility] [address] [id number] [place] [address]- 7254 Nov, [facility] [place] [facility] [address] [id number] [place] [address]- 6420 Nov, [facility] [place] [facility] [address] [id number] [place] [address]- 2139 Nov, [facility] [place] [facility] [address] [id number] [place] [address]- 8250 Nov, [facility] [place] [facility] [address] [id number] [place] [address]- 8484 Oct, [facility] [place] [facility] [address] [id number] [place] [address]- 9496 Oct, [facility] [place] [facility] [address] [id number] [place] [address]- 6930 Oct, [facility] [place] [facility] [address] [id number] [place] [address]- 9982 Oct, [facility] [place] [facility] [address] [id number] [place] [address]- 7411 Oct, [facility] [place] [facility] [address] [id number] [place] [address]- 2342 Oct, [facility] [place] [facility] [address] [id number] [place] [address]- 2452 Oct, [facility] [place] [facility] [address] [id number] [place] [address]- 7971 26 Oct, 2013 [facility] [place] [facility] [address] [id number] [place] [address]- 6734 Oct, [facility] [place] [facility] [address] [id number] [place] [address]- 7406 Oct, [facility] [place] [facility] [address] [id number] [place] [address]- 2840 Oct, [facility] [place] [facility] [address] [id number] [place] [address]- 4400 23 Oct, 2013 [facility] [place] [facility] [address] [id number] [place] [address]- 9180 18 Oct, 2013 [facility] [place] [facility] [address] [id number] [place] [address]- 0812 18 Oct, 2013 [facility] [place] [facility] [address] [id number] [place] [address]- 5278 17 Oct, 2013 [facility] [place] [facility] [address] [id number] [place] [address]- 5608 17 Oct, 2013 [facility] [place] [facility] [address] [id number] [place] [address]- 5044 16 Oct, 2013 [facility] [place] [facility] [address] [id number] [place] [address]- 5751 16 Oct, 2013 [facility] [place] [facility] [address] [id number] [place] [address]- 3007 13 Oct, 2013 [facility] [place] [facility] [address] [id number] [place] [address]- 5567 13 Oct, 2013 [facility] [place] [facility] [address] [id number] [place] [address]- 7751 11 Oct, 2013 [facility] [place] [facility] [address] [id number] [place] [address]- 0595 11 Oct, 2013 [facility] [place] [facility] [address] [id number] [place] [address]- 2558 Oct, [facility] [place] [facility] [address] [id number] [place] [address]- 4530 Oct, [facility] [place] [facility] [address] [id number] [place] [address]- 7491 Oct, [facility] [place] [facility] [address] [id number] [place] [address]- 0969 Oct, [facility] [place] [facility] [address] [id number] [place] [address] Oct, [facility] [place] [facility] [address] [id number] [place] [address] Oct, [facility] [place] [facility] [address] [id number] [place] [address] Oct, [facility] [place] [facility] [address] [id number] [place] [address] Oct, [facility] [place] [facility] [address] [id number] [place] [address] September, [facility] [place] [facility] [address] [id number] [place] [address] September, [facility] [place] [facility] [address] [id number] [place] [address] September, [facility] [place] [facility] [address] [id number] [place] [address] September, [facility] [place] [facility] [address] [id number] [place] [address] September, [facility] [place] [facility] [address] [id number] [place] [address] September, [facility] [place] [facility] [address] [id number] [place] [address] September, [facility] [place] [facility] [address] [id number] [place] [address] September, [facility] [place] [facility] [address] [id number] [place] [address] September, [facility] [address] [id number] [place] [address] September, [facility] [place] [facility] [address] [id number] [place] [address] September, [facility] [place] [facility] [address] [id number] [place] [address] September, [facility] [place] [facility] [address] [id number] [place] [address]- [address] September, [facility] [place] [facility] [address] [id number] [place] [address] September, [facility] [place] [facility] [address] [id number] [place] [address] September, [facility] [place] [facility] [address] [id number] [place] [address] September, [facility] [place] [facility] [address] [id number] [place] [address] September, [facility] [place] [facility] [address] [id number] [place] [address]- [address] September, [facility] [place] [facility] [address] [id number] [place] [address] Aug, [facility] [place] [facility] [address] [id number] [place] [address]- [address] Aug, [facility] [place] [facility] [address] [id number] [place] [address] Aug, [facility] [place] [facility] [address] [id number] [place] [address]- [address] Aug, [facility] [place] [facility] [address] [id number] [place] [address] Aug, [facility] [place] [facility] [address] [id number] [place] [address] Aug, [facility] [place] [facility] [address] [id number] [place] [address] Jul, [facility] [place] [facility] [address] [id number] [place] [address] Jul, [facility] [place] [facility] [address] [id number] [place] [address] Jul, [facility] [place] [facility] [address] [id number] [place] [address] Jul, [facility] [place] [facility] [address] [id number] [place] [address] Jun, [facility] [place] [facility] [address] [id number] [place] [address] Jun, [facility] [place] [facility] [address] [id number] [place] [address] Jun, [facility] [place] [facility] [address] [id number] [place] [address] Jun, [facility] [place] [facility] [address] [id number] [place] [address] Mar, [facility] [place] [facility] [address] [id number] [place] [address]- [address] 14 Mar, 2013 [facility] [place] [facility] [address] [id number] [place] [address] Mar, [facility] [place] [facility] [address] [id number] [place] [address] Mar, [facility] [place] [facility] [address] [id number] [place] [address] Feb, [facility] [place] [facility] [address] [address] [id number] [place] [address] Feb, [facility] [place] [facility] [address] [id number] [place] [address] 8[address] Feb, [facility] [place] [facility] [address] [id number] [place] [address] Jan, [facility] [place] [facility] [address] [id number] [place] [address] 5[address] Jan, [facility] [place] [facility] [address] [id number] [place] [address] 7958 Jan, [facility] [place] [facility] [address] [id number] [place] [address] 2387 Jan, [facility] [place] [facility] [address] [id number] [place] [address] 0107 Dec, [facility] [place] [facility] [address] [id number] [place] [address] 0557 Dec, [facility] [place] [facility] [address] [id number] [place] [address] 0748 Dec, [facility] [place] [facility] [address] [id number] [place] [address] 0560 Dec, [facility] [place] [facility] [address] [id number] [place] [address] Nov, [facility] [place] [facility] [address] [id number] [place] [address] 2695 Nov, [facility] [place] [facility] [address] [id number] [place] [address] 2304 Nov, [facility] [place] [facility] [address] [id number] [place] [address] 5818 Nov, [facility] [place] [facility] [address] [id number] [place] [address] 3032 Nov, [facility] [place] [facility] [address] [id number] [place] [address] 5208 Nov, [facility] [place] [facility] [address] [id number] [place] [address] 7024 Oct, [facility] [place] [facility] [address] [id number] [place] [address] 4827 Oct, [facility] [place] [facility] [address] [id number] [place] [address] 3869 25 Oct, 2012 [facility] [address] [id number] [place] [address] 5082 21 Oct, 2012 [facility] [address] [id number] [place] [address] 1679 17 Oct, 2012 [facility] [address] [id number] [place] [address]- 0876 16 Oct, 2012 [facility] [address] [id number] [place] [address]- 7853 14 Oct, 2012 [facility] [address] [id number] [place] [address]- 3489 13 Oct, 2012 [facility] [address] [id number] [place] [address] 8196 Oct, [facility] [address] [id number] [place] [address]- 7328 Oct, [facility] [address] [id number] [place] [address]- 6255 September, [facility] [address] [id number] [place] [address] 4128 September, [facility] [address] [id number] [place] [address]- 0619 September, [facility] [address] [id number] [place] [address]- 2596 Aug, [facility] [address] [id number] [place] [address] 2546 Aug, [facility] [place] [facility] [address] [id number] [place] [address]- 2083 Aug, [facility] [place] [facility] [address] [id number] [place] [id number] [address] Aug, [facility] [address] [id number] [place] [address] 4619 Jul, [facility] [place] [facility] [address] [id number] [place] [address]- 0767 29 Jul, 2012 [facility] [address] [id number] [place] [address]- 8115 26 Jul, 2012 [facility] [address] [id number] [place] [address]- 0120 Jul, [facility] [address] [id number] [place] [address]- 9095 04 Jul, 2012 [facility] [address] [id number] [place] [address]- 1325 Jul, [facility] [address] [id number] [place] [address] 0291 May, [facility] [address] [id number] [place] [address]- 5648 May, [facility] [address] [id number] [place] [address]- 1332 May, [facility] [address] [id number] [place] [address] 7100 May, [facility] [address] [id number] [place] [address]- 6243 May, [facility] [address] [id number] [place] [address]- 1792 May, [facility] [address] [id number] [place] [address]- 1063 May, [facility] [place] [facility] [address] [id number] [place] [address]- 9443 May, [facility] [place] [facility] [address] [id number] [place] [address]- 1614 May, [facility] [place] [facility] [address] [id number] [place] [address]- 8323 May, [facility] [place] [facility] [address] [id number], [place] [address] 4210 May, [facility] [place] [facility] [address] [id number] [place] [address]- 5874 Apr, [facility] [place] [facility] [address] [id number] [place] [address]- 4467 Apr, [facility] [place] [facility] [address] [id number] [place] [address]- 5055 Apr, [facility] [place] [facility] [address] [id number] [place] [address]- 4642 Apr, [facility] [place] [facility] [address] [id number] [place] [address]- 8557 Apr, [facility] [place] [facility] [address] [id number] [place] [address]- 9832 Apr, [facility] [place] [facility] [address] [id number] [place] [address] 0215 Mar, [facility] [place] [facility] [address] [id number] [place] [address]- 2134 Mar, [facility] [place] [facility] [address] [id number], [place] [address]284 Mar, [facility] [place] [facility] [address] [id number] [place] [address]- 0175 Mar, [facility] [place] [facility] [address] [id number], [place] [address] 7436 Mar, [facility] [place] [facility] [address] [id number], [place] [address] 7738 Mar, [facility] [place] [facility] [address] [id number], [place] [address] 3831 Mar, [facility] [place] [facility] [address] [id number], [place] [address] 1964 Mar, [facility] [place] [facility] [address] [id number] [place] [address]- 5414 Feb, [facility] [place] [facility] [address] [id number] [place] [address]- 6549 23 Feb, 2011 [facility] [place] [facility] [address] [id number] [place] [address]- 6355 16 Feb, 2012 [facility] [place] [facility] [address] [id number] [place] [address]- 2666 15 Feb, 2012 [facility] [place] [facility] [address] [id number] [place] [address]- 3574 15 Feb, 2012 [facility] [place] [facility] [address] [id number] [place] [address]- 9760 13 Feb, 2012 [facility] [place] [facility] [address] [id number] [place] [address]- 7295 Feb, [facility] [place] [facility] [address] [id number] [place] [address]- 1032 Feb, [facility] [place] [facility] [address] [id number] [place] [address]- 7804 Feb, [facility] [place] [facility] [address] [id number] [place] [address]- 2582 Feb, [facility] [place] [facility] [address] [id number] [place] [address]- 6622 Feb, [facility] [place] [facility] [address] [id number] [place] [address]- 4522 Feb, [facility] [place] [facility] [address] [id number] [place] [address]- 1916 Feb, [facility] [place] [facility] [address] [id number] [place] [address]- 4949 Feb, [facility] [place] [facility] [address] [id number] [place] [address]- 5058 Feb, [facility] [place] [facility] [address] [id number] [place] [address]- 7506 Feb, [facility] [place] [facility] [address] [id number] [place] [address]- 1426 Feb, [facility] [place] [facility] [address] [id number] [place] [address]- 4231 Feb, [facility] [place] [facility] [address] [id number] [place] [address]- 1398 Jan, [facility] [place] [facility] [address] [id number] [place] [address]- 7187 13 Jan, 2012 [facility] [place] [facility] [address] [id number] [place] [address]- 1063 11 Jan, 2012 [facility] [place] [facility] [address] [id number] [place] [address]- 6100 10 Jan, 2012 [facility] [place] [facility] [address] [id number] [place] [address]- 3379 05 Jan, 2012 [facility] [place] [facility] [address] [id number] [place] [address]- 3486 Dec, [facility] [place] [facility] [address] [id number] [place] [address]- 1294 Dec, [facility] [place] [facility] [address] [id number] [place] [address]- 9871 Dec, [facility] [place] [facility] [address] [id number] [place] [address]- 0323 Dec, [facility] [place] [facility] [address] [id number] [place] [address]- 8499 Dec, [facility] [place] [facility] [address] [id number], [place] [address] 6466 Dec, [facility] [place] [facility] [address] [id number] [place] [address]- 6450 Nov, [facility] [place] [facility] [address] [id number] [place] [address]- 8247 Nov, [facility] [place] [facility] [address] [id number] [place] [address]- 9094 Nov, [facility] [place] [facility] [address] [id number] [place] [address]- 9921 Nov, [facility] [place] [facility] [address] [id number] [place] [address]- 6117 Nov, [facility] [place] [facility] [address] [id number] [place] [address]- 3629 Oct, [facility] [place] [facility] [address] [id number] [place] [address]- 7601 Oct, [facility] [place] [facility] [address] [id number] [place] [address]- 9444 Oct, [facility] [place] [facility] [address] [id number] [place] [address]- 8038 September, [facility] [place] [facility] [address] [id number] [place] [address]- 0935 September, [facility] [address] [id number] [place] [address]- 9578 September, [facility] [place] [facility] [address] [id number] [place] [address]- 3454 September, [facility] [place] [facility] [address] [id number] [place] [address]- 3519 September, [facility] [place] [facility] [address] [id number] [place] [address]- 5460 September, [facility] [place] [facility] [address] [id number] [place] [address]- 7275 Aug, [facility] [place] [facility] [address] [id number] [place] [address]- 7108 Aug, [facility] [place] [facility] [address] [id number] [place] [address]- 4619 Aug, [facility] [place] [facility] [address] [id number] [place] [address]- 2230 Jun, [facility] [place] [facility] [address] [id number] [place] [address]- 8363 Jun, [facility] [place] [facility] [address] [id number] [place] [address]- 3733 Jun, [facility] [address] [id number] [place] [address]- 5116 Jun, [facility] [address] [id number] [place] [address]- 9327 May, [facility] [address] [id number] [place] [address]- 4834 May, [facility] [address] [id number] [place] [address]- 0748 May, [facility] [address] [id number] [place] [address]- 3301 May, [facility] [address] [id number] [place] [address]- 9634 May, [facility] [address] [id number] [place] [address]- 6837 Apr, [facility] [address] [id number] [place] [address]- 2447 Apr, [facility] [address] [id number] [place] [address]- 0316 Apr, [facility] [address] [id number] [place] [address]- 2638 Apr, [facility] [address] [id number] [place] [address]- 5286 Apr, [facility] [place] [facility] [address] [id number] [place] [address]906 Apr, [facility] [place] [facility] [address] [id number] [place] [address]- 0476 Apr, [facility] [place] [facility] [address] [id number] [place] [address]- 6894 Mar, [facility] [place] [facility] [address] [id number], [place] [address]- 7685 Mar, [facility] [place] [facility] [address] [id number] [place] [address]- 6356 Mar, [facility] [place] [facility] [address] [id number] [place] [address]- 3026 Feb, [facility] [place] [facility] [address] [id number] [place] [address]- 4830 Feb, [facility] [place] [facility] [address] [id number] [place] [address]- 6064 Feb, [facility] [place] [facility] [address] [id number] [place] [address]- 6204 Feb, [facility] [place] [facility] [address] [id number] [place] [address]- 3103 Feb, [facility] [place] [facility] [address] [facility] [id number] [place] [address]- 3762 Feb, [facility] [place] [facility] [address] [id number] [place] [address]- 6629 Jan, [facility] [place] [facility] [address] [id number] [place] [address]- 3825 Jan, [facility] [place] [facility] [address] [facility] [id number] [place] [address]- 9134 September, [facility] [place] [facility] [address] [id number], [place] [address]- 7222 Jun, [facility] [place] [facility] [address] [id number], [place] [address]- 3709 Apr, [facility] [place] [facility] [address] [id number] [place] [address]- 4565 Apr, [facility] [place] [facility] [address] [id number] [place] [address]- 1224 Apr, [facility] [place] [facility] [address] [facility] [id number] [place] [address]- 4051 Apr, [facility] [place] [facility] [address] [id number] [address]- 3409 Apr, [facility] [address], [place] [address]- 9921 Mar, [facility] [address], [place] [address]- 0090 Mar, [facility] [address], [place] [address]- 8151 Mar, [facility] [id number], [place] [address]- 3292 Mar, [facility] [id number], [place] [address]- 1813 Feb, [facility] [address], [place] [address]- 2934 15 Jan, 2010 [facility] [address], [place] [address]- 5346 Mar, [facility] [address], [place] [address]- 8846 15 Jan, 2009 [facility] [address], [place] [address]- 8215 Oct, [facility] [address] [id number], [place] [address]- 8555 Apr, IMMUNIZATIONS No Known Immunizations SOCIAL HISTORY Never Assessed REASON FOR VISIT Refill request PLAN OF CARE VITAL SIGNS MEDICATIONS Medication Instructions Dosage Frequency Start Date End Date Duration Status Lisinopril 20 MG TAKE ONE TABLET BY MOUTH ONCE DAILY 30 Active RESULTS No Results PROCEDURES No [...]
--- OUTSIDE RECORDS SUMMARY | 2018-03-22 21:52 | XMS REPORT ---
Author Author BRITANY BOSCH [facility] [employer] Address Unknown Phone Unavailable Care Team Providers Care Switchboard Operator Receptionist Name Role Phone BRITANY BOSCH CP Unavailable Allergies, Adverse Reactions, Alerts Substance Reaction Event Type Penicillin V Potassium anaphylaxis Drug Allergy surgical tape "tears skin off" Non Drug Allergy Problems Problem Type Condition ICD-9 Code Onset Dates Condition Status Assessment HTN (hypertension) 401.9 Active Assessment Dyspepsia 536.8 Active Assessment Upper respiratory infection 465.9 Active Assessment Back pain 724.5 Active Problem 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 [...] Instructions Start Date End Date Status Dosage Gas-X [facility] [address]-64 80 mg Feb 23, 2014 not defined Omeprazole [facility] [address]-07 20 MG Orally Once a day Jul 03, 2014 1 capsule Flexeril [facility] [address]-00 10 MG Orally 2 times a day 1 tablet Azithromycin [facility] [address]-33 250 MG Orally Once a day Jan 14, 2015 Jan 21, 2015 2 tablets on the first day, then 1 tablet daily for 6 days Dicyclomine HCl [facility] [address]-29 10 MG Orally 3 times a day 1 capsule Lisinopril-Hydrochlorothiazide [facility] 29242407040 20-12.5 MG TAKE ONE TABLET BY MOUTH IN THE MORNING Alprazolam [facility] [address]-27 1 MG Orally 3 times a day PRN September 22, 2014 1 tablet Tramadol HCl [facility] [address]-77 50 MG Orally every 6 hrs TAKE ONE TABLET Lisinopril-Hydrochlorothiazide [facility] [address]-35 10-12.5 MG Orally Once a day in AM 1 tablet MiraLax [facility] [address]-29 17 gram/dose November 10, 2013 take 17 g mixed with 8 oz. water or juice by Oral route 1 time per day PRN Procedures Procedure Coding System Code Date COMPREHEN METABOLIC PANEL CPT-4 70906 Jan 14, 2015 VENIPUNCT, ROUTINE* CPT-4 91603 Jan 14, 2015 Office Visit, Est Pt., Level 4 CPT-4 87930 Jan 14, 2015 Vital Signs Date/Time: Jan 14, 2015 Temperature 97.1 F Weight 247.7 lbs Height 66 in BMI 39.98 Index Blood Pressure Diastolic 60 mmHg Blood Pressure Systolic 98 mmHg Cardiac Monitoring Heart Rate 90 bpm Results Name Result Date Reference Range Unit Abnormality Flag ROUTINE VENIPUNCTURE Summary Purpose eClinicalWorks Submission
--- OUTSIDE RECORDS SUMMARY | 2018-03-22 21:53 | XMS REPORT ---
Author Author BRITANY BOSCH [facility] eClinical[employer] Address Unknown Phone Unavailable Care Team Providers Care Milling Machine Operator Gear Name Role Phone BRITANY BOSCH CP Unavailable Allergies, Adverse Reactions, Alerts Substance Reaction Event Type Penicillin V Potassium anaphylaxis Drug Allergy surgical tape "tears skin off" Non Drug Allergy Problems Problem Type Condition Code Onset Dates Condition Status Assessment Heartburn R12 Active Problem Bipolar I disorder, most recent episode (or current) mixed, severe, specified as with psychotic behavior 296.64 Active Assessment Essential hypertension I10 Active Problem Heartburn R12 Active Problem Irritable bowel syndrome without diarrhea K58.9 Active Problem Essential hypertension I10 Active Problem HTN (hypertension) 401.9 Active Problem Unspecified episodic mood disorder 296.90 Active Problem Bilateral low back pain, with sciatica presence unspecified M54.5 Active Problem Upper respiratory infection J06.9 Active Assessment Upper respiratory infection J06.9 Active Assessment Bilateral low back pain, with sciatica presence unspecified M54.5 Active Assessment Irritable bowel syndrome without diarrhea K58.9 Active Medications Medication Code System Code Instructions Start Date End Date Status Dosage Lisinopril-Hydrochlorothiazide [facility] [address]-10 10-12.5 MG Orally Once a day in AM 1 tablet Ibuprofen [facility] [address]-59 800 MG Orally Three times a day Mar 04, 2015 Jun 02, 2015 1 tablet Tramadol HCl [facility] [address]-91 50 MG Orally every 6 hrs TAKE ONE TABLET Doxycycline Hyclate [facility] [address]-52 100 MG Orally every 12 hrs Mar 04, 2015 Mar 18, 2015 1 capsule Alprazolam [facility] [address]-66 1 MG Orally 3 times a day PRN Must keep next appt September 22, 2014 1 tablet MiraLax [facility] [address]-16 17 gram/dose November 10, 2013 take 17 g mixed with 8 oz. water or juice by Oral route 1 time per day PRN Omeprazole [facility] [address]-16 20 MG Orally Once a day Jul 03, 2014 1 capsule Dicyclomine HCl [facility] [address]-78 10 MG Orally 3 times a day 1 capsule Flonase [facility] [address]-64 50 MCG/ACT Nasally Once a day Mar 04, 2015 1 spray in each nostril Flexeril [facility] [address]-16 10 MG Orally 2 times a day 1 tablet Gas-X [facility] [address]-73 80 mg Feb 23, 2014 not defined Procedures Procedure Coding System Code Date Office Visit, Est Pt., Level 4 CPT-4 88649 Mar 04, 2015 CHEST X-RAY CPT-4 54938 Mar 04, 2015 Vital Signs Date/Time: Mar 04, 2015 Temperature 97.8 F Weight 254.2 lbs Height 66 in BMI 41.02 Index Blood Pressure Diastolic 78 mmHg Blood Pressure Systolic 122 mmHg Cardiac Monitoring Heart Rate 88 bpm Results No Known Results Summary Purpose eClinicalWorks Submission
--- OUTSIDE RECORDS SUMMARY | 2018-03-22 21:53 | XMS REPORT ---
Author Author BRITANY BOSCH [facility] eClinicalWorks Address Unknown Phone Unavailable Care Team Providers Care Roll Machine Operator Name Role Phone BRITANY BOSCH Unavailable Allergies, Adverse Reactions, Alerts Substance Reaction Event Type Penicillin V Potassium anaphylaxis Drug Allergy surgical tape "tears skin off" Non Drug Allergy Problems Problem Type Condition Code Onset Dates Condition Status Assessment Yeast dermatitis B37.2 Active Assessment Bilateral low back pain without sciatica M54.5 Active Assessment Upper respiratory infection J06.9 Active Problem Yeast dermatitis B37.2 Active Problem Essential hypertension I10 Active Problem Bilateral low back pain without sciatica M54.5 Active Problem Bilateral low back pain, with sciatica presence unspecified M54.5 Active Problem Upper respiratory infection J06.9 Active Problem Heartburn R12 Active Problem Irritable bowel syndrome without diarrhea K58.9 Active Medications Medication Code System Code Instructions Start Date End Date Status Dosage Lisinopril-Hydrochlorothiazide [facility] [address]-61 10-12.5 MG Orally Once a day in AM 1 tablet Ibuprofen [facility] [address]-44 800 MG Orally Three times a day Mar 04, 2015 Jun 02, 2015 1 tablet Promethazine-Codeine [facility] [address]-58 6.25-10 MG/5ML Orally every 6 hrs prn May 11, 2015 5 ml as needed Azithromycin [facility] [address]-99 250 MG Orally Once a day May 11, 2015 May 21, 2015 2 tablets on the first day, then 1 tablet daily for 4 days Tramadol HCl [facility] [address]-71 50 MG Orally every 6 hrs- appt needed for futher refills TAKE ONE TABLET Dicyclomine HCl [facility] [address]-78 10 MG Orally 3 times a day 1 capsule Gas-X [facility] [address]-83 80 mg Feb 23, 2014 not defined Diflucan [facility] [address]-02 100 MG Orally daily May 11, 2015 May 18, 2015 1 tablet Flexeril [facility] [address]-84 10 MG Orally 2 times a day s needed 1 tablet Alprazolam [facility] 68027067776 1 MG TAKE ONE TABLET BY MOUTH THREE TIMES DAILY NEEDED Omeprazole [facility] [address]-16 20 MG Orally Once a day Jul 03, 2014 1 capsule MiraLax [facility] [address]-16 17 gram/dose November 10, 2013 take 17 g mixed with 8 oz. water or juice by Oral route 1 time per day PRN Procedures Procedure Coding System Code Date Office Visit, Est Pt., Level 4 CPT-4 14491 May 11, 2015 URINALYSIS, AUTO, W/O SCOPE CPT-4 74818 May 11, 2015 Vital Signs Date/Time: May 11, 2015 Temperature 97.1 F Weight 245.3 lbs Height 66 in BMI 39.59 Index Blood Pressure Diastolic 78 mmHg Blood Pressure Systolic 120 mmHg Cardiac Monitoring Heart Rate 78 bpm Results Name Result Date Reference Range Unit Abnormality Flag UA LONG DIP (IN HOUSE) ----TRAVIS Negative 20150511 ----NIT Negative 20150511 ----SG >=1.030 20150511 ----KET negative 20150511 ----RANDALL negative 20150511 ----GLU negative 20150511 ----Odor no 20150511 ----pH 6.0 20150511 ----BLO Trace-intact 20150511 ----URO 0.2 20150511 ----Protein negative 20150511 ----Lot # [id number] ----Exp date 20150511 ----Clarity cloudy 20150511 ----Color yellow 20150511 Summary Purpose [employer] Submission
--- OUTSIDE RECORDS SUMMARY | 2018-03-22 21:53 | XMS REPORT ---
Author Author BRITANY BOSCH Organization [employer] Address Unknown Phone Unavailable Care Team Providers [facility] [employer] Name Role Phone BRITANY BOSCH CP Unavailable Allergies No Known Allergies Problems Problem Type Condition Code Onset Dates Condition Status Problem Bipolar I disorder, most recent episode (or current) mixed, severe, specified as with psychotic behavior 296.64 Active Problem Heartburn R12 Active Problem Irritable bowel syndrome without diarrhea K58.9 Active Problem Essential hypertension I10 Active Problem HTN (hypertension) 401.9 Active Problem Unspecified episodic mood disorder 296.90 Active Problem Bilateral low back pain, with sciatica presence unspecified M54.5 Active Problem Upper respiratory infection J06.9 Active Medications Medication Code System Code Instructions Start Date End Date Status Dosage Tramadol HCl [facility] [place] [address]-60 50 MG Orally every 6 hrs- appt needed for futher refills TAKE ONE TABLET Flexeril [facility] [place] [address]-35 10 MG Orally 2 times a day s needed 1 tablet Results No Known Results Summary Purpose [employer] Submission
--- OUTSIDE RECORDS SUMMARY | 2018-03-22 21:53 | XMS REPORT ---
Author Author SERGO VALDES Organization [employer] Address Unknown Phone Unavailable Care Team Providers Care Can Top Setter Name Role Phone SERGO VALDES CP Unavailable Allergies, Adverse Reactions, Alerts Substance Reaction Event Type Penicillin V Potassium anaphylaxis Drug Allergy surgical tape "tears skin off" Non Drug Allergy Problems Problem Type Condition Code Onset Dates Condition Status Assessment Dermatofibroma D23.9 Active Problem Bilateral low back pain, with sciatica presence unspecified M54.5 Active Problem Upper respiratory infection J06.9 Active Problem Ingrown left big toenail L60.0 Active Problem Bilateral low back pain without sciatica M54.5 Active Problem Pain in left knee M25.562 Active Problem Heartburn R12 Active Problem Irritable bowel syndrome without diarrhea K58.9 Active Problem Yeast dermatitis B37.2 Active Problem Essential hypertension I10 Active Medications Medication Code System Code Instructions Start Date End Date Status Dosage Ibuprofen [facility] [id number] 800 MG Orally Three times a day 1 tablet Linzess [facility] [place] 70221113445 145 MCG TAKE ONE CAPSULE BY MOUTH ONCE DAILY Alprazolam [facility] [place] [address]-61 1 MG TAKE ONE TABLET BY MOUTH THREE TIMES DAILY NEEDED Flexeril [facility] [place] [address]-84 10 MG Orally 2 times a day s needed 1 tablet Omeprazole [facility] [place] [address]-29 20 MG Orally Once a day Jul 03, 2014 1 capsule Lisinopril-Hydrochlorothiazide [facility] [place] [address]-97 10-12.5 MG Orally Once a day 1 tablet Procedures Procedure Coding System Code Date Office Visit, Est Pt., Level 2 CPT-4 38771 Dec 28, 2015 CRYOTHERAPY OF SKIN CPT-4 47045 Dec 28, 2015 Vital Signs Date/Time: Dec 28, 2015 Cardiac Monitoring Heart Rate 100 bpm Weight 246.5 lbs Height 66 in BMI 39.78 Index Blood Pressure Diastolic 72 mmHg Blood Pressure Systolic 112 mmHg Results No Known Results Summary Purpose [employer] Submission
--- OUTSIDE RECORDS SUMMARY | 2018-03-22 21:53 | XMS REPORT ---
Author Author BRITANY BOSCH [facility] Address [address] [place] [address] Care Team Providers Care Hard Hat Diver Name Role Phone BRITANY BOSCH Unavailable PROBLEMS Type Condition ICD9-CM Code [id number] Code Onset Dates Condition Status SNOMED Code Problem Upper respiratory infection J06.9 Active 28822923 Problem Irritable bowel syndrome without diarrhea K58.9 Active 60151526 Problem Bilateral low back pain, with sciatica presence unspecified M54.5 Active 297066236 Problem Pain in left knee M25.562 Active 76504035 Problem Ingrown left big toenail L60.0 Active 841534263 Problem Essential hypertension I10 Active 14584201 Problem Heartburn R12 Active 52109884 Problem Bilateral low back pain without sciatica M54.5 Active 965352611 Problem Yeast dermatitis B37.2 Active 54285678 ALLERGIES No Known Allergies SOCIAL HISTORY No smoking Hx information available PLAN OF CARE VITAL SIGNS MEDICATIONS No Known Medications RESULTS No Results PROCEDURES No Known procedures IMMUNIZATIONS No Known Immunizations
--- OUTSIDE RECORDS SUMMARY | 2018-03-22 21:53 | XMS REPORT ---
Author Author BRITANY BOSCH [facility] Address [address] [place] [address] Care Team Providers Care Work Manager Name Role Phone BRITANY BOSCH Unavailable PROBLEMS Type Condition ICD9-CM Code [id number] Code Onset Dates Condition Status SNOMED Code Problem Folliculitis L73.9 Active 63400675 Problem High risk bisexual behavior Z72.53 Active 094474905 Problem Anxiety F41.9 Active 17292179 Problem Acute non-recurrent maxillary sinusitis J01.00 Active 58656068 Problem Other obesity due to excess calories E66.09 Active 152446889 Problem Plantar wart of right foot B07.0 Active 70642180 Problem Other chronic pain G89.29 Active 29617397 Problem Pain in right foot M79.671 Active 61914123615022371 Problem Pain in left foot M79.672 Active 274807129767357 Problem Heartburn R12 Active 32284032 Problem Irritable bowel syndrome without diarrhea K58.9 Active 67514139 Problem Bilateral low back pain without sciatica M54.5 Active 545073407 Problem Pre-diabetes R73.03 Active 701888915 Problem Essential hypertension I10 Active 78537698 Problem Long-term use of high-risk medication Z79.899 Active 651985403 Problem Bilateral low back pain, with sciatica presence unspecified M54.5 Active 583420576 Problem Impacted cerumen of right ear H61.21 Active 48892561 ALLERGIES Unknown Allergies SOCIAL HISTORY No smoking Hx information available PLAN OF CARE VITAL SIGNS MEDICATIONS Unknown Medications RESULTS No Results PROCEDURES No Known procedures IMMUNIZATIONS No Known Immunizations
--- OUTSIDE RECORDS SUMMARY | 2018-03-22 21:53 | XMS REPORT ---
Author Author TIFFANI CANO Organization [employer] Address Unknown Phone Unavailable Care Team Providers Care Resaw Operator Name Role Phone TIFFANI CANO CP Unavailable Allergies No Known Allergies Problems Problem Type Condition Code Onset Dates Condition Status Problem Yeast dermatitis B37.2 Active Problem Essential hypertension I10 Active Problem Bilateral low back pain without sciatica M54.5 Active Problem Bilateral low back pain, with sciatica presence unspecified M54.5 Active Problem Upper respiratory infection J06.9 Active Problem Heartburn R12 Active Problem Irritable bowel syndrome without diarrhea K58.9 Active Medications Medication Code System Code Instructions Start Date End Date Status Dosage Alprazolam [facility] [address]-49 1 MG TAKE ONE TABLET BY MOUTH THREE TIMES DAILY NEEDED Results No Known Results Summary Purpose [employer] Submission
--- OUTSIDE RECORDS SUMMARY | 2018-03-22 21:53 | XMS REPORT ---
Author Author BRITANY BOSCH [facility] Address [address] [place] [address] Care Team Providers Care Chopper Operator Name Role Phone RENÉNas BRITANY Unavailable PROBLEMS Type Condition ICD9-CM Code HEP84-CK Code Onset Dates Condition Status SNOMED Code Problem Other chronic pain G89.29 Active 62877408 Problem Pain in left foot M79.672 Active 609666550267044 Problem Plantar wart of right foot B07.0 Active 99648046 Problem Obesity (BMI 30-39.9) E66.9 Active 100441889 Problem Heartburn R12 Active 34470752 Problem Rhinosinusitis J32.9 Active 06127173 Problem Other obesity due to excess calories E66.09 Active 900476292 Problem Pain in right foot M79.671 Active 23715460516945721 Problem Alternating constipation and diarrhea R19.8 Active 695793696 Problem Acute non-recurrent maxillary sinusitis J01.00 Active 00244999 Problem Essential hypertension I10 Active 42516453 Problem Bilateral low back pain without sciatica M54.5 Active 639794136 Problem Irritable bowel syndrome without diarrhea K58.9 Active 16749874 Problem Bilateral low back pain, with sciatica presence unspecified M54.5 Active 453047389 Problem High risk bisexual behavior Z72.53 Active 486616674 Problem Long-term use of high-risk medication Z79.899 Active 932143829 Problem Pre-diabetes R73.03 Active 612430069 Problem Impacted cerumen of right ear H61.21 Active 20098348 Problem Anxiety F41.9 Active 69713524 Problem Folliculitis L73.9 Active [id number] ALLERGIES No Information ENCOUNTERS Encounter Location Date Diagnosis [facility] [id number] [address] September, Pre-diabetes R73.03 [facility] [id number] [place] [address] 34159- 9051 Aug, [facility] [id number] [place] [address] 81446- 9389 Jul, Bilateral low back pain without sciatica M54.5 [facility] [id number] [place] [address] 45682- 7915 Jun, [facility] [address] 59369- 7855 Jun, [facility] [id number] [place] [address] 93395- 5323 Jun, [facility] [id number] [place] [address] 02765- 6913 May, [facility] [id number] [place] [address] 78478- 6170 May, Ingrown left greater toenail L60.0 [facility] [id number] [place] [address] 71321- 4482 May, [facility] [id number] [place] [address] 04830 -6312 May, Influenza A J10.1 ; Fever R50.9 and Body aches R52 [facility] [id number] [place] [address] 17319- 6245 Apr, [facility] [id number] [place] [address] 09169- 2677 Apr, [facility] [id number] [place] [address] 40111- 5987 Apr, [facility] [address] 09109- 8176 Apr, Abscess L02.91 and Obesity (BMI 30-39.9) E66.9 [facility] [id number] [place] [address] 94006- 3620 Apr, [place] [id number] [place] [address] 70889- 1172 Apr, [place] [address] 18642- 9480 Mar, Acute non-recurrent maxillary sinusitis J01.00 [place] [id number] [place] [address] 12993- 8531 Feb, Heartburn R12 [place] [address] 62372- 8144 Feb, Heartburn R12 ; Low back pain M54.5 ; Essential hypertension I10 ; Bilateral low back pain without sciatica M54.5 ; Anxiety F41.9 ; Pre-diabetes R73.03 ; Other obesity due to excess calories E66.09 ; Alternating constipation and diarrhea R19.8 ; Dyspepsia R10.13 ; Generalized abdominal pain R10.84 ; Rhinosinusitis J32.9 and Boil L02.92 [place] [id number] [place] [address] 02577- 5465 Jan, Heartburn R12 [place] [id number] [place] [address] 59848- 1353 Jan, [place] [id number] [place] [address] 51604- 0380 Jan, [place] [id number] [place] [address] 00433- 4060 Jan, Acute seasonal allergic rhinitis due to pollen J30.1 and Irritable bowel syndrome without diarrhea K58.9 [place] [id number] [place] [address] 85117- 5697 Dec, Low back pain M54.5 and Acute cystitis with hematuria N30.01 [place] [id number] [place] [address] 14498- 2348 Dec, Low back pain M54.5 and Acute cystitis with hematuria N30.01 [place] [id number] [place] [address] 98136- 4472 Dec, Heartburn R12 ; Essential hypertension I10 ; Acute non- recurrent maxillary sinusitis J01.00 ; Bilateral low back pain without sciatica M54.5 ; Anxiety F41.9 ; Pre-diabetes R73.03 ; Pain in right foot M79.671 ; Pain in left foot M79.672 ; Other obesity due to excess calories E66.09 and Acute cystitis with hematuria N30.01 [place] [address] 18798- 5604 Dec, Bilateral low back pain without sciatica M54.5 ; Acute non- recurrent maxillary sinusitis J01.00 and Pre-diabetes R73.03 [place] [address] 52090- 5512 Oct, [facility] [address] [address] -[address]66 Aug, [facility] [address] 93523 -1034 Aug, Acute vaginitis N76.0 ; Urinary frequency R35.0 ; Screen for STD (sexually transmitted disease) Z11.3 and Abscess L02.[address] 15761- 1819 Aug, Plantar wart of right foot B07.0 [place] [address] 46556- 0558 Jul, Plantar wart of right foot B07.0 [place] [address] 50071- 9638 Jun, [address] 99795- 5667 Jun, Heartburn R12 ; Essential hypertension I10 ; Anxiety F41.9 ; Folliculitis L73.9 and Plantar wart of right foot B07.0 [place] [id number] [place] [address] 4792 Jun, [facility] [address] 43325 -8713 May, Low back pain M54.5 and Other chronic pain G89.29 [place] [address] 17736- 5829 May, [place] [address] 26892- 4543 May, [place] [address] 34806- 8912 May, Heartburn R12 ; Bilateral low back pain without sciatica M54.5 ; Essential hypertension I10 ; Long-term use of high-risk medication Z79.899 ; Anxiety F41.9 ; Impacted cerumen of right ear H61.21 ; Folliculitis L73.9 ; High risk bisexual behavior Z72.53 and General medical exam Z00.00 [place] [address] 39209- 1146 May, [place] [address] 22384- 0813 May, [place] [address] 29471- 4884 Mar, Acute nasopharyngitis J00 ; Acute intractable tension-type headache G44.201 and Cough R05 [place] [id number] [place] [address] 30576- 7690 Jan, [facility] [address] 44275 -6359 Jan, Abscess L02.91 [facility] [place] [address] 32046 -4480 10 Jan, 2016 Urinary urgency R39.15 and Urinary tract infection without hematuria, site unspecified N39.0 [place] [address] [place] [address]- 8525 Jan, [facility] [id number] [place] [address] 08675- 0936 Jan, [facility] [id number] [place] [address] 90951- 4433 Dec, [facility] [id number] [place] [address] 81021- 4458 Dec, Dermatofibroma D23.9 [facility] [id number] [place] [address] 36780- 7051 September, [facility] [id number] [place] [address] 62368- 2270 Aug, [facility] [id number] [place] [address] 47235- 5027 Aug, Pain in left knee M25.562 ; Heartburn R12 ; Bilateral low back pain without sciatica M54.5 ; Essential hypertension I10 ; Ingrown left big toenail L60.0 ; Chronic pain G89.29 ; Irritable bowel syndrome with constipation K58.9 and Skin infection L08.9 [facility] [id number] [place] [address] 71938- 7476 Aug, [facility] [address] [place] [address] 48937- 8217 Jul, [facility] [id number] [place] [address] 28331- 5945 Jun, [facility] [id number] [place] [address] 17306- 0569 Jun, [facility] [id number] [place] [address] 37669- 7077 Jun, [facility] [id number] [place] [address] 60320- 6141 Jun, [facility] [id number] [place] [address] 53492- 7919 Jun, Upper respiratory infection J06.9 ; Bilateral low back pain without sciatica M54.5 and Headache R51 [facility] [id number] [place] [address] 64823- 1592 May, [facility] [id number] [place] [address] 48848- 3731 Apr, Bilateral low back pain without sciatica M54.5 ; Upper respiratory infection J06.9 and Yeast dermatitis B37.2 [facility] [id number] [place] [address] 73696- 4063 Apr, [facility] [address] 50240- 7357 Apr, [facility] [id number] [place] [address] 54051- 1416 Feb, [facility] [id number] [place] [address] 06808- 6711 Feb, [facility] [id number] [place] [address] 34737- 2778 Feb, [facility] [id number] [place] [address] 79006- 2389 Feb, Essential hypertension I10 ; Heartburn R12 ; Irritable bowel syndrome without diarrhea K58.9 ; Bilateral low back pain, with sciatica presence unspecified M54.5 and Upper respiratory infection J06.9 [facility] [id number] [place] [address] 56847- 2025 Feb, [facility] [id number] [place] [address] 57365- 9595 Feb, Generalized anxiety disorder F41.1 and Grief F43.20 [facility] [id number] [place] [address] 11158- 2054 Jan, [facility] [id number] [place] [address] 52797- 1404 Jan, Back pain 724.5 ; Upper respiratory infection 465.9 ; HTN ( hypertension) 401.9 and Dyspepsia 536.8 [place] [id number] [place] [address] 28568- 3851 Dec, [facility] [id number] [place] [address] 27874- 5959 Nov, Back pain 724.5 ; Abdominal pain, bilateral lower quadrant 789.03 ; GERD (gastroesophageal reflux disease) 530.81 ; Upper respiratory infection 465.9 ; Dysuria 788.1 and HTN (hypertension) 401.9 [place] [id number] [place] [address] 11479- 8398 Nov, [place] [id number] [place] [address] 66151- 4883 Nov, [place] [address] 42052- 7450 Nov, [place] [id number] [place] [address] 93082- 7495 Nov, Cough 786.2 [place] [address] 67999- 2086 Nov, Cough 786.2 [place] [id number] [place] [address] 23824- 2986 Oct, Unspecified episodic mood disorder 296.90 and Anxiety disorder, unspecified 300.00 [place] [id number] [place] [address] 39339- 1883 Oct, Abdominal pain, left upper quadrant 789.02 ; Essential hypertension, benign 401.1 ; Irritable bowel syndrome 564.1 ; Abscess 682.9 ; Heartburn 787.1 ; Acute sinusitis, unspecified 461.9 ; Muscle spasm of back 724.8 ; Cough 786.2 and Skin tag 701.9 [place] [id number] [place] [address] 94626- 0990 September, [facility] [place] [facility] [address] [id number] [place] [address]- 9314 September, [facility] [place] [facility] [address] [id number] [place] [address]- 6583 September, [facility] [place] [facility] [address] [id number] [place] [address]- 8839 Aug, [facility] [place] [facility] [address] [id number] [place] [address]- 5651 Aug, [facility] [place] [facility] [address] [id number] [place] [address]- 2638 Jul, [facility] [place] [facility] [address] [id number] [place] [address]- 6480 Jul, [facility] [place] [facility] [address] [id number] [place] [address]- 6606 Jul, [facility] [place] [facility] [address] [id number] [place] [address]- 5157 Jul, [facility] [place] [facility] [address] [id number] [place] [address]- 0441 Jul, [facility] [place] [facility] [address] [id number] [place] [address]- 9129 Jul, [facility] [place] [facility] [address] [id number] [place] [address]- 5683 Jul, [facility] [place] [facility] [address] [id number] [place] [address]- 0700 Jul, [facility] [place] [facility] [address] [id number] [place] [address]- 4297 Jul, [facility] [place] [facility] [address] [id number] [place] [address]- 8140 Jul, [facility] [place] [facility] [address] [id number] [place] [address]- 9493 Jul, [facility] [place] [facility] [address] [id number] [place] [address]- 2546 Jul, [facility] [place] [facility] [address] [id number] [place] [address]- 9983 Jul, [facility] [place] [facility] [address] [id number] [place] [address]- 5588 Jul, 2014 [facility] [place] [facility] [address] [facility] [id number] [place] [address]- 8199 Jul, 2014 [facility] [place] [facility] [address] [id number] [place] [address]- 7910 Jul, 2014 [facility] [place] [facility] [address] [id number] [place] [address]- 9372 Jul, 2014 [facility] [place] [facility] [address] [facility] [id number] [place] [address]- 8248 Jun, 2014 [facility] [place] [facility] [address] [facility] [id number] [place] [address]- 8125 Jun, 2014 [facility] [place] [facility] [address] [facility] [id number] [place] [address]- 1704 Jun, 2014 [facility] [place] [facility] [address] [facility] [id number] [place] [address]- 9245 Jun, 2014 [facility] [place] [facility] [address] [facility] [id number] [place] [address]- 2053 Jun, 2014 [facility] [place] [facility] [address] [facility] [id number] [place] [address]- 7142 Jun, 2014 [facility] [place] [facility] [address] [facility] [id number] [place] [address]- 6467 Jun, 2014 [facility] [place] [facility] [address] [facility] [id number] [place] [address]- 5862 Jun, 2014 [facility] [place] [facility] [address] [facility] [id number] [place] [address]- 9686 Apr, [facility] [place] [facility] [address] [facility] [id number] [place] [address]- 3547 Apr, [facility] [place] [facility] [address] [id number] [place] [address]- 3094 Apr, [facility] [place] [facility] [address] [id number] [place] [address]- 7600 Apr, [facility] [place] [facility] [address] [id number] [place] [address]- 7546 Apr, [facility] [place] [facility] [address] [id number] [place] [address]- 9344 Apr, [facility] [place] [facility] [address] [id number] [place] [address]- 3881 Apr, [facility] [place] [facility] [address] [id number] [place] [address]- 9078 Apr, [facility] [place] [facility] [address] [id number] [place] [address]- 4429 Apr, [facility] [place] [facility] [address] [id number] [place] [address]- 0264 Apr, [facility] [place] [facility] [address] [id number] [place] [address]- 1488 Apr, [facility] [place] [facility] [address] [id number] [place] [address]- 5665 Apr, [facility] [place] [facility] [address] [id number] [place] [address]- 8757 Apr, [facility] [place] [facility] [address] [id number] [place] [address]- 1415 Apr, [facility] [place] [facility] [address] [id number] [place] [address]- 9286 Apr, [facility] [place] [facility] [address] [id number] [place] [address]- 0416 Feb, [facility] [place] [facility] [address] [id number] [place] [address]- 9674 13 Feb, 2014 [facility] [place] [facility] [address] [id number] [place] [address]- 9511 Feb, [facility] [place] [facility] [address] [id number] [place] [address]- 5647 Feb, [facility] [place] [facility] [address] [id number] [place] 9473 Feb, [facility] [place] [facility] [address] [id number] [place] [address]- 8617 Feb, [facility] [place] [facility] [address] [id number] [place] [address]- 9096 Jan, [facility] [place] [facility] [address] [id number] [place] [address]- 1204 Jan, [facility] [place] [facility] [address] [id number] [place] [address]- 5942 Jan, [facility] [place] [facility] [address] [id number] [place] [address]- 0505 Jan, [facility] [place] [facility] [address] [id number] [place] [address]- 6837 Jan, [facility] [place] [facility] [address] [id number] [place] [address]- 1844 Jan, [facility] [place] [facility] [address] [id number] [place] [address]- 9452 Dec, [facility] [place] [facility] [address] [id number] [place] [address]- 6377 Dec, [facility] [place] [facility] [address] [id number] [place] [address]- 2358 Dec, [facility] [place] [facility] [address] [id number] [place] [address]- 6329 Dec, [facility] [place] [facility] [address] [id number] [place] [address]- 5878 Nov, [facility] [place] [facility] [address] [id number] [place] [address]- 8852 Nov, [facility] [place] [facility] [address] [id number] [place] [address]- 4259 Nov, [facility] [place] [facility] [address] [id number] [place] [address]- 1796 Nov, [facility] [place] [facility] [address] [id number] [place] [address]- 5279 Nov, [facility] [place] [facility] [address] [id number] [place] [address]- 6223 Nov, [facility] [place] [facility] [address] [id number] [place] [address]- 6619 Nov, [facility] [place] [facility] [address] [id number] [place] [address]- 3391 Nov, [facility] [place] [facility] [address] [id number] [place] [address]- 7925 Oct, [facility] [place] [facility] [address] [id number] [place] [address]- 1652 Oct, [facility] [place] [facility] [address] [id number] [place] [address]- 1230 Oct, [facility] [place] [facility] [address] [id number] [place] [address]- 4189 Oct, [facility] [place] [facility] [address] [id number] [place] [address]- 7367 Oct, [facility] [place] [facility] [address] [id number] [place] [address]- 2545 Oct, [facility] [place] [facility] [address] [id number] [place] [address]- 4736 Oct, [facility] [place] [facility] [address] [id number] [place] [address]- 1821 Oct, [facility] [place] [facility] [address] [id number] [place] [address]- 3854 Oct, [facility] [place] [facility] [address] [id number] [place] [address]- 9311 Oct, [facility] [place] [facility] [address] [id number] [place] [address]- 0595 Oct, [facility] [place] [facility] [address] [id number] [place] [address]- 5310 Oct, [facility] [place] [facility] [address] [id number] [place] [address]- 4031 18 Oct, 2013 [facility] [place] [facility] [address] [id number] [place] [address]- 2829 18 Oct, 2013 [facility] [place] [facility] [address] [id number] [place] [address]- 1869 17 Oct, 2013 [facility] [place] [facility] [address] [id number] [place] [address]- 2389 17 Oct, 2013 [facility] [place] [facility] [address] [id number] [place] [address] 16 Oct, 2013 [facility] [place] [facility] [address] [id number] [place] [address] 16 Oct, 2013 [facility] [place] [facility] [address] [id number] [place] [address] Oct, [facility] [place] [facility] [address] [id number], [place] [address] Oct, [facility] [place] [facility] [address] [id number], [place] [address] Oct, [facility] [place] [facility] [address] [id number], [place] [address] Oct, [facility] [place] [facility] [address] [id number] [place] [address] Oct, [facility] [place] [facility] [address] [id number], [place] [address] Oct, [facility] [place] [facility] [address] [id number], [place] [address] 06 Oct, 2013 [facility] [place] [facility] [address] [id number], [place] [address] Oct, [facility] [place] [facility] [address] [id number] [place] [address] Oct, [facility] [place] [facility] [address] [id number] [place] [address] Oct, [facility] [place] [facility] [address] [id number] [place] [address] Oct, [facility] [place] [facility] [address] [id number] [place] [address]- [address] Oct, [facility] [place] [facility] [address] [id number] [place] [address] September, [facility] [place] [facility] [address] [id number] [place] [address]- [address] September, [facility] [place] [facility] [address] [id number] [place] [address] September, [facility] [place] [facility] [address] [id number] [place] [address]- [address] September, [facility] [place] [facility] [address] [id number] [place] [address]- [address] September, [facility] [place] [facility] [address] [id number] [place] [address] September, [facility] [place] [facility] [address] [id number] [place] [address]- [address] September, [facility] [place] [facility] [address] [id number] [place] [address] September, [facility] [place] [facility] [address] [id number] [place] [address] September, [facility] [place] [facility] [address] [id number] [place] [address]- [address] September, [facility] [place] [facility] [address] [id number] [place] [address] September, [facility] [place] [facility] [address] [id number] [place] [address] September, [facility] [place] [facility] [address] [id number] [place] [address] September, [facility] [place] [facility] [address] [id number] [place] [address] September, [facility] [place] [facility] [address] [id number] [place] [address]- [address] September, [facility] [place] [facility] [address] [id number] [place] [address] 7947 September, [facility] [place] [facility] [address] [id number] [place] [address]- [address] September, [facility] [place] [facility] [address] [id number] [place] [address] September, [facility] [place] [facility] [address] [id number] [place] [address] Aug, [facility] [place] [facility] [address] [id number] [place] [address] Aug, [facility] [place] [facility] [address] [id number] [place] [address] Aug, [facility] [place] [facility] [address] [id number] [place] [address] 1397 Aug, [facility] [place] [facility] [address] [id number] [place] [address] Aug, [facility] [place] [facility] [address] [id number] [place] [address] Aug, [facility] [place] [facility] [address] [id number] [place] [address] Jul, [facility] [place] [facility] [address] [id number] [place] [address] Jul, [facility] [place] [facility] [address] [id number] [place] [address]- [address] Jul, [facility] [place] [facility] [address] [id number] [place] [address]- 3568 Jul, [facility] [place] [facility] [address] [id number] [place] [address] Jun, [facility] [place] [facility] [address] [id number] [place] [address]- [address]27 Jun, [facility] [place] [facility] [address] [id number] [place] [address]- [address] Jun, [facility] [place] [facility] [address] [id number] [place] [address]- [address] Jun, [facility] [place] [facility] [address] [id number] [place] [address] Mar, [facility] [place] [facility] [address] [address] [id number] [place] [address] Mar, [facility] [place] [facility] [address] [id number] [place] [address] Mar, [facility] [place] [facility] [address] [id number] [place] [address] 69[address] Mar, [facility] [place] [facility] [address] [id number] [place] [address] Feb, [facility] [place] [facility] [address] [id number] [place] [address] 7528 Feb, [facility] [place] [facility] [address] [id number] [place] [address]28 Feb, [facility] [place] [facility] [address] [id number] [place] [address] 6934 Jan, [facility] [place] [facility] [address] [id number] [place] [address]26 20 Jan, 2013 [facility] [place] [facility] [address] [id number] [place] [address]- [address] 12 Jan, 2013 [facility] [place] [facility] [address] [id number] [place] [address]177 Jan, [facility] [address] [id number] [place] [address] 65[address] Dec, [facility] [place] [facility] [address] [id number] [place] [address]- [address]92 Dec, [facility] [address] [id number] [place] [address]- 7025 Dec, [facility] [place] [facility] [address] [id number] [place] [address]- 2425 Dec, [facility] [address] [id number] [place] [address]- 8680 Nov, [facility] [place] [facility] [address] [id number] [place] [address] Nov, [facility] [address] [id number] [place] [address] 5[address] Nov, [facility] [address] [id number] [place] [address] 3070 Nov, [facility] [place] [facility] [address] [id number] [place] [address]- 1047 Nov, [facility] [address] [id number] [place] [address]- 9575 Nov, [facility] [place] [facility] [address] [id number] [place] [address]- 1472 Oct, [facility] [place] [facility] [address] [id number] [place] [address]- 3765 Oct, [facility] [place] [facility] [address] [id number] [place] [address]- 1617 Oct, [facility] [place] [facility] [address] [id number] [place] [address]- 2527 Oct, [facility] [place] [facility] [address] [id number] [place] [address] Oct, [facility] [address] [id number] [place] [address]- 9944 16 Oct, 2012 [facility] [place] [facility] [address] [id number] [place] [address]- 3766 14 Oct, 2012 [facility] [place] [facility] [address] [id number] [place] [address]- 8714 13 Oct, 2012 [facility] [place] [facility] [address] [id number] [place] [address]- 8716 Oct, [facility] [place] [facility] [address] [id number] [place] [address] 1918 Oct, [facility] [place] [facility] [address] [id number] [place] [address]- 455[address] September, [facility] [place] [facility] [address] [id number] [place] [address]- 6022 September, [facility] [place] [facility] [address] [id number] [place] [address]- 6787 September, [facility] [place] [facility] [address] [id number] [place] [address]- 0898 Aug, [facility] [place] [facility] [address] [id number] [place] [address]- 4029 Aug, [facility] [place] [facility] [address] [id number] [place] [address]- 1404 Aug, [facility] [place] [facility] [address] [id number], [place] [address] Aug, [facility] [place] [facility] [address] [id number] [place] [address]- 9096 Jul, [facility] [place] [facility] [address] [id number] [place] [address]- 7145 Jul, [facility] [place] [facility] [address] [id number] [place] [address]- 0361 Jul, [facility] [place] [facility] [address] [id number], [place] [address] 65[address] Jul, [facility] [address] [id number] [place] [address]- 1717 Jul, [facility] [address] [id number] [place] [address]- 0247 Jul, [facility] [address] [id number] [place] [address]- 0386 May, [facility] [address] [id number] [place] [address]- 1299 May, [facility] [address] [id number] [place] [address]- 2751 May, [facility] [address] [id number] [place] [address]- 6364 May, [facility] [address] [id number] [place] [address]- 3347 May, [facility] [address] [id number] [place] [address]- 7985 May, [facility] [address] [id number] [place] [address]- 7785 May, [facility] [address] [id number] [place] [address]- 7054 May, [facility] [address] [id number] [place] [address]- 5115 May, [facility] [address] [id number], [place] [address]- 7782 17 May, 2012 [facility] [address] [id number] [place] [address]- 3682 16 May, 2012 [facility] [address] [id number] [place] [address]- 3451 Apr, [facility] [address] [id number] [place] [address]- 0911 Apr, [facility] [place] [facility] [address] [id number] [place] [address]- 1672 Apr, [facility] [place] [facility] [address] [id number] [place] [address]- 9169 Apr, [facility] [place] [facility] [address] [id number] [place] [address]- 6326 Apr, [facility] [place] [facility] [address] [id number] [place] [address]- 1094 Apr, [facility] [place] [facility] [address] [id number] [place] [address]- 5944 Mar, [facility] [place] [facility] [address] [id number] [place] [address]- 7977 Mar, [facility] [place] [facility] [address] [id number] [place] [address]- 4948 Mar, [facility] [place] [facility] [address] [id number] [place] [address]- 2500 Mar, [facility] [place] [facility] [address] [id number] [place] [address]- 1041 Mar, [facility] [place] [facility] [address] [id number] [place] [address]- 4433 Mar, [facility] [place] [facility] [address] [id number] [place] [address]- 3517 Mar, [facility] [place] [facility] [address] [id number] [place] [address]- 7178 Mar, [facility] [place] [facility] [address] [id number] [place] [address]- 1224 Feb, [facility] [place] [facility] [address] [id number] [place] [address]- 8046 23 Feb, 2012 [facility] [place] [facility] [address] [id number] [place] [address]- 1882 16 Feb, 2012 [facility] [place] [facility] [address] [id number] [place] [address]- 1359 15 Feb, 2012 [facility] [place] [facility] [address] [id number] [place] [address]- 2651 15 Feb, 2012 [facility] [place] [facility] [address] [id number] [place] [address]- 5948 13 Feb, 2012 [facility] [place] [facility] [address] [id number] [place] [address]- 0275 Feb, [facility] [place] [facility] [address] [id number] [place] [address]- 6762 Feb, [facility] [place] [facility] [address] [id number] [place] [address]- 8706 Feb, [facility] [place] [facility] [address] [id number] [place] [address]- 9333 Feb, [facility] [place] [facility] [address] [id number] [place] [address]- 3109 Feb, [facility] [place] [facility] [address] [id number], [place] [address]- 3655 Feb, [facility] [place] [facility] [address] [id number], [place] [address]- 4192 Feb, [facility] [place] [facility] [address] [id number], [place] [address]- 2159 Feb, [facility] [place] [facility] [address] [id number], [place] [address]- 7796 Feb, [facility] [place] [facility] [address] [id number], [place] [address]- 4943 Feb, [facility] [place] [facility] [address] [id number], [place] [address]- 4990 Feb, [facility] [place] [facility] [address] [id number], [place] [address]- 5455 Feb, [facility] [place] [facility] [address] [id number], [place] [address]- 0811 Jan, [facility] [place] [facility] [address] [id number] [place] [address]- 9601 13 Jan, 2012 [facility] [place] [facility] [address] [id number] [place] [address]- 4026 11 Jan, 2012 [facility] [place] [facility] [address] [id number] [place] [address] 2546 10 Jan, 2012 [facility] [place] [facility] [address] [id number] [place] [address] 2546 05 Jan, 2012 [facility] [place] [facility] [address] [id number] [place] [address] 2546 Dec, [facility] [place] [facility] [address] [id number] [place] [address]- 1246 Dec, [facility] [place] [facility] [address] [id number] [place] [address]- 7406 Dec, [facility] [place] [facility] [address] [id number] [place] [address]- 6532 Dec, [facility] [place] [facility] [address] [id number] [place] [address]- 2694 Dec, [facility] [place] [facility] [address] [id number] [place] [address]- 6346 Dec, [facility] [place] [facility] [address] [id number] [place] [address]- 5413 Nov, [facility] [place] [facility] [address] [id number] [place] [address]- 3026 Nov, [facility] [place] [facility] [address] [id number] [place] [address]- 2541 Nov, [facility] [place] [facility] [address] [id number] [place] [address]- 8761 Nov, [facility] [place] [facility] [address] [id number] [place] [address]- 2546 Nov, [facility] [place] [facility] [address] [id number] [place] [address]- 9787 Oct, [facility] [place] [facility] [address] [id number] [place] [address]- 9215 Oct, [facility] [place] [facility] [address] [id number] [place] [address]- 8346 Oct, [facility] [place] [facility] [address] [id number] [place] [address]- 0120 September, [facility] [place] [facility] [address] [id number] [place] [address]- 5552 September, [facility] [place] [facility] [address] [id number] [place] [address]- 5623 September, [facility] [place] [facility] [address] [id number] [place] [address]- 0862 September, [facility] [place] [facility] [address] [id number] [place] [address]- 8699 September, [facility] [place] [facility] [address] [id number] [place] [address]- 2453 September, [facility] [place] [facility] [address] [id number] [place] [address]- 2235 Aug, [facility] [place] [facility] [address] [id number] [place] [address]- 6406 Aug, [facility] [place] [facility] [address] [id number] [place] [address]- 9879 Aug, [facility] [place] [facility] [address] [id number] [place] [address]- 1325 Jun, [facility] [place] [facility] [address] [id number] [place] [address]- 5278 Jun, [facility] [place] [facility] [address] [id number] [place] [address]- 3323 Jun, [facility] [place] [facility] [address] [id number] [place] [address]- 7003 Jun, [facility] [place] [facility] [address] [id number], [place] [address]- 5965 May, [facility] [address] [id number] [place] [address]- 7103 May, [facility] [place] [facility] [address] [id number] [place] [address]- 1023 May, [facility] [address] [facility] [id number] [place] [address]- 2053 May, [facility] [address] [id number] [place] [address]- 0889 May, [facility] [address] [facility] [id number] [place] [address], [place] [address]- 0740 Apr, [facility] [place] [facility] [address] [id number] [place] [address]- 6212 Apr, [facility] [address] [facility] [id number] [place] [address]- 5435 Apr, [facility] [place] [facility] [address] [facility] [id number] [place] [address]- 6260 Apr, [facility] [address] [facility] [id number] [place] [address]- 5802 Apr, [facility] [address] [facility] [id number] [place] [address]- 7232 Apr, [facility] [address] [facility] [id number] [place] [address]- 4143 16 Apr, 2011 [facility] [place] [facility] [address] [id number], [place] [address]- 1772 Mar, [facility] [place] [facility] [address] [id number] [place] [address]- 9179 Mar, [facility] [place] [facility] [address] [facility] [id number] [place] [address]- 3593 15 Mar, 2011 [facility] [place] [facility] [address] [facility] [id number] [place] [address]- 0667 Feb, [facility] [place] [facility] [address] [id number] [place] [address]- 2263 Feb, [facility] [place] [facility] [address] [id number] [place] [address]- 5586 Feb, [facility] [place] [facility] [address] [id number] [place] [address] 2546 Feb, [facility] [place] [facility] [address] [id number] [place] [address] 2546 Feb, [facility] [place] [facility] [address] [id number] [place] [address] 2542 Feb, [facility] [place] [facility] [address] [id number] [place] [address]- 4446 Jan, [facility] [place] [facility] [address] [id number] [place] [address]- 9736 Jan, [facility] [place] [facility] [address] [id number] [place] [address]- 0031 September, [facility] [place] [facility] [address] [id number] [place] [address]- 4010 Jun, [facility] [place] [facility] [address] [id number] [place] [address]108 Apr, [facility] [place] [facility] [address] [id number] [place] [address] 2546 Apr, [facility] [place] [facility] [address] [id number] [place] [address] 2546 Apr, [facility] [place] [facility] [address] [id number] [place] [address] 2546 Apr, [facility] [place] [facility] [address] [id number] [place] [address] 2546 Apr, [facility] [place] [facility] [address] [id number] [place] [address] 2546 Mar, [facility] [place] [facility] [address] [id number] [place] [address]- 3566 Mar, [facility] [address] [id number] [address]165 Mar, [facility] [id number], [place] [address]- 6980 Mar, [facility] [id number], [place] [address]- 8472 Feb, [facility] [id number] [place] [address]- 4133 15 Jan, 2010 [facility] [id number] [address]174 Mar, [facility] [id number], [place] [address]- 1659 Jan, [facility] [id number], [place] [address]- 9918 Oct, [facility] [id number], [place] [address]- 9753 Apr, IMMUNIZATIONS No Known Immunizations SOCIAL HISTORY [...]
--- OUTSIDE RECORDS SUMMARY | 2018-03-22 21:54 | XMS REPORT ---
Author Author BRITANY BOSCH [facility] Address [address] [place] [address] Care Team Providers Care Software Systems Analyst Name Role Phone DANITZA BRITANY Unavailable PROBLEMS Type Condition ICD9-CM Code ZGE16-FY Code Onset Dates Condition Status SNOMED Code Problem Other chronic pain G89.29 Active 75448079 Problem Pain in left foot M79.672 Active 529634355189924 Problem Plantar wart of right foot B07.0 Active 97591028 Problem Obesity (BMI 30-39.9) E66.9 Active 184424470 Problem Heartburn R12 Active 18442123 Problem Rhinosinusitis J32.9 Active 34448152 Problem Other obesity due to excess calories E66.09 Active 202725577 Problem Pain in right foot M79.671 Active [id number] Problem Alternating constipation and diarrhea R19.8 Active 229386857 Problem Acute non-recurrent maxillary sinusitis J01.00 Active 16095186 Problem Essential hypertension I10 Active 78912710 Problem Bilateral low back pain without sciatica M54.5 Active 625098425 Problem Irritable bowel syndrome without diarrhea K58.9 Active 59039617 Problem Bilateral low back pain, with sciatica presence unspecified M54.5 Active 842490742 Problem High risk bisexual behavior Z72.53 Active 266307360 Problem Long-term use of high-risk medication Z79.899 Active 286813049 Problem Pre-diabetes R73.03 Active 594464030 Problem Impacted cerumen of right ear H61.21 Active 15113223 Problem Anxiety F41.9 Active 79917400 Problem Folliculitis L73.9 Active 86893528 ALLERGIES No Information ENCOUNTERS Encounter Location Date Diagnosis [facility] [address] [facility] [id number] [address] Nov, [facility] [id number] [place] [address] 57194- 7927 Oct, Abscess of groin, left L02.214 and Pre-diabetes R73.03 [facility] [address] 22173- 4411 September, Pre-diabetes R73.03 [facility] [address] 71841- 6113 Aug, [facility] [address] 54667- 7515 Jul, Bilateral low back pain without sciatica M54.5 [facility] [address] 34857- 2421 Jun, [facility] [address] 53996- 7977 Jun, [facility] [address] 05892- 2271 Jun, [facility] [address] 35511- 8567 May, [facility] [address] 21676- 6502 May, Ingrown left greater toenail L60.0 [facility] [id number] [place] [address] 13239- 2088 May, [facility] [address] 6[address] -4263 May, Influenza A J10.1 ; Fever R50.9 and Body aches R52 [facility] [address] 92371- 2147 Apr, [facility] [address] 14262- 5225 Apr, [facility] [address] 49554- 4330 Apr, [place] [id number] [place] [address] 14540- 7914 05 Apr, 2017 Abscess L02.91 and Obesity (BMI 30-39.9) E66.9 [place] [id number] [place] [address] 14992- 0472 Apr, [place] [address] 94087- 3310 Apr, [place] [address] 64708- 5868 Mar, Acute non-recurrent maxillary sinusitis J01.00 [place] [address] 19468- 3181 Feb, Heartburn R12 [place] [address] 51880- 0596 Feb, Heartburn R12 ; Low back pain M54.5 ; Essential hypertension I10 ; Bilateral low back pain without sciatica M54.5 ; Anxiety F41.9 ; Pre-diabetes R73.03 ; Other obesity due to excess calories E66.09 ; Alternating constipation and diarrhea R19.8 ; Dyspepsia R10.13 ; Generalized abdominal pain R10.84 ; Rhinosinusitis J32.9 and Boil L02.92 [place] [id number] [place] [address] 48176- 0666 Jan, Heartburn R12 [place] [id number] [place] [address] 70753- 9730 Jan, [place] [id number] [place] [address] 51074- 4298 Jan, [place] [id number] [place] [address] 29761- 1360 Jan, Acute seasonal allergic rhinitis due to pollen J30.1 and Irritable bowel syndrome without diarrhea K58.9 [place] [address] 19496- 2714 Dec, Low back pain M54.5 and Acute cystitis with hematuria N30.01 [place] [address] 48281- 0660 Dec, Low back pain M54.5 and Acute cystitis with hematuria N30.01 [place] [address] 68766- 8279 Dec, Heartburn R12 ; Essential hypertension I10 ; Acute non- recurrent maxillary sinusitis J01.00 ; Bilateral low back pain without sciatica M54.5 ; Anxiety F41.9 ; Pre-diabetes R73.03 ; Pain in right foot M79.671 ; Pain in left foot M79.672 ; Other obesity due to excess calories E66.09 and Acute cystitis with hematuria N30.01 [place] [address] 06476- 3534 Dec, Bilateral low back pain without sciatica M54.5 ; Acute non- recurrent maxillary sinusitis J01.00 and Pre-diabetes R73.03 [place] [address] 30084- 1547 Oct, [facility] [address] 16988 -5770 Aug, [facility] [address] 02803 -5540 Aug, Acute vaginitis N76.0 ; Urinary frequency R35.0 ; Screen for STD (sexually transmitted disease) Z11.3 and Abscess L02.91 [place] [address] 76576- 4835 Aug, Plantar wart of right foot B07.0 [place] [address] 80540- 9811 Jul, Plantar wart of right foot B07.0 [place] [address] 46937- 0353 Jun, [facility] [id number] [place] [address] 49266- 1177 Jun, Heartburn R12 ; Essential hypertension I10 ; Anxiety F41.9 ; Folliculitis L73.9 and Plantar wart of right foot B07.0 [place] [id number] [place] [address] 08853- 1408 Jun, [facility] [address] 51013 -5208 May, Low back pain M54.5 and Other chronic pain G89.29 [place] [address] 48398- 4283 May, [place] [address] 93155- 5222 May, [place] [address] 69758- 2083 May, Heartburn R12 ; Bilateral low back pain without sciatica M54.5 ; Essential hypertension I10 ; Long-term use of high-risk medication Z79.899 ; Anxiety F41.9 ; Impacted cerumen of right ear H61.21 ; Folliculitis L73.9 ; High risk bisexual behavior Z72.53 and General medical exam Z00.00 [place] [id number] [place] [address] 40613- 2713 May, [place] [id number] [place] [address] 68509- 2412 May, [place] [id number] [place] [address] 13597- 1078 Mar, Acute nasopharyngitis J00 ; Acute intractable tension-type headache G44.201 and Cough R05 [place] [id number] [place] [address] 98654- 6034 Jan, [facility] [address] 30086 -7691 29 Jan, 2016 Abscess L02.91 [facility] [address] [address] 10 Jan, 2016 Urinary urgency R39.15 and Urinary tract infection without hematuria, site unspecified N39.0 [facility] [address], [place] [address]- 0739 Jan, [facility] [id number] [place] [address] 78304- 3832 Jan, [facility] [address], [place] [address]- 7647 Dec, [facility] [id number] [place] [address] 08733- 8348 Dec, Dermatofibroma D23.9 [facility] [id number] [place] [address] 20792- 0614 September, [facility] [id number] [place] [address] 67387- 5178 Aug, [facility] [id number] [place] [address] 97252- 2411 Aug, Pain in left knee M25.562 ; Heartburn R12 ; Bilateral low back pain without sciatica M54.5 ; Essential hypertension I10 ; Ingrown left big toenail L60.0 ; Chronic pain G89.29 ; Irritable bowel syndrome with constipation K58.9 and Skin infection L08.9 [facility] [address], [place] [address]- 6351 Aug, [facility] [id number] [place] [address] 05532- 8211 Jul, [facility] [address] [id number] [address]- 5356 Jun, [facility] [address], [place] [address]- 9663 Jun, [place] [address], [place] [address]- 5438 Jun, [facility] [id number] [place] [address] 21137- 0418 Jun, [facility] [id number] [place] [address] 21929- 1182 Jun, Upper respiratory infection J06.9 ; Bilateral low back pain without sciatica M54.5 and Headache R51 [facility] [id number] [place] [address] 24870- 6998 May, [facility] [id number] [place] [address] 48066- 6322 Apr, Bilateral low back pain without sciatica M54.5 ; Upper respiratory infection J06.9 and Yeast dermatitis B37.2 [facility] [id number] [place] [address] 45926- 6693 Apr, [facility] [id number] [place] [address] 63997- 6101 Apr, [facility] [id number] [place] [address] 05311- 0322 Feb, [facility] [id number] [place] [address] 47248- 6268 Feb, [facility] [id number] [place] [address] 63989- 3940 Feb, [facility] [id number] [place] [address] 72147- 4284 Feb, Essential hypertension I10 ; Heartburn R12 ; Irritable bowel syndrome without diarrhea K58.9 ; Bilateral low back pain, with sciatica presence unspecified M54.5 and Upper respiratory infection J06.9 [facility] [id number] [place] [address] 15428- 5849 Feb, [facility] [id number] [place] [address] 40145- 9340 Feb, Generalized anxiety disorder F41.1 and Grief F43.20 [place] [id number] [place] [address] 892259- 9313 Jan, [place] [address] 813381- 5347 Jan, Back pain 724.5 ; Upper respiratory infection 465.9 ; HTN ( hypertension) 401.9 and Dyspepsia 536.8 [place] [id number] [place] [address] 82383- 7277 Dec, [place] [address] 68704- 5220 Nov, Back pain 724.5 ; Abdominal pain, bilateral lower quadrant 789.03 ; GERD (gastroesophageal reflux disease) 530.81 ; Upper respiratory infection 465.9 ; Dysuria 788.1 and HTN (hypertension) 401.9 [place] [address] 54542- 9933 Nov, [place] [id number] [place] [address] 11345- 0959 Nov, [place] [id number] [place] [address] 67973- 1104 Nov, [place] [id number] [place] [address] 09952- 0622 Nov, Cough 786.2 [place] [id number] [place] [address] 60733- 4792 Nov, Cough 786.2 [place] [id number] [place] [address] 29239- 0931 Oct, Unspecified episodic mood disorder 296.90 and Anxiety disorder, unspecified 300.00 [place] [id number] [place] [address] 87016- 5788 Oct, Abdominal pain, left upper quadrant 789.02 ; Essential hypertension, benign 401.1 ; Irritable bowel syndrome 564.1 ; Abscess 682.9 ; Heartburn 787.1 ; Acute sinusitis, unspecified 461.9 ; Muscle spasm of back 724.8 ; Cough 786.2 and Skin tag 701.9 [facility] [address], [place] [address]- 0556 September, [facility] [address], [place] [address]- 6341 September, [facility] [id number] [address]- 4847 September, [facility] [id number] [place] [address] 89067- 8281 Aug, [facility] [id number] [address]- 8493 Aug, [facility] [id number] [place] [address] 73248- 7638 Jul, [facility] [address], [place] [address]- 3743 Jul, [facility] [address], [place] [address]- 0805 Jul, [facility] [address] [address]- 3864 Jul, [facility] [address], [place] [address]- 5881 Jul, [facility] [address], [place] [address]- 4802 Jul, [facility] [address], [place] [address]- 1058 Jul, [facility] [address] 5716 Jul, [facility] [address] 4811 Jul, [facility] [place] [facility] [address] [id number] [place] [address]- 9449 Jul, [facility] [place] [facility] [address] [id number] [place] [address]- 2284 Jul, 2014 [facility] [place] [facility] [address] [id number] [place] [address]- 4959 Jul, [facility] [place] [facility] [address] [id number] [place] [address]- 7396 Jul, 2014 [facility] [place] [facility] [address] [id number] [place] [address]- 0156 Jul, [facility] [place] [facility] [address] [id number] [place] [address]- 5053 Jul, [facility] [place] [facility] [address] [facility] [id number] [place] [address]- 5517 Jul, [facility] [place] [facility] [address] [id number] [place] [address]- 8845 Jul, [facility] [place] [facility] [address] [id number] [place] [address]- 3670 Jun, [facility] [place] [facility] [address] [id number] [place] [address]- 9333 Jun, [facility] [place] [facility] [address] [facility] [id number] [place] [address]- 6258 Jun, [facility] [place] [facility] [address] [id number] [place] [address]- 3074 Jun, 2014 [facility] [place] [facility] [address] [id number] [place] [address]- 2905 Jun, [facility] [place] [facility] [address] [id number] [place] [address]- 2081 Jun, 2014 [facility] [place] [facility] [address] [facility] [id number] [place] [address]- 3446 Jun, 2014 [facility] [place] [facility] [address] [facility] [id number] [place] [address]- 2218 03 Jun, 2014 [facility] [address] [id number] [place] [address]- 7801 Apr, [facility] [place] [facility] [address] [id number] [place] [address]- 1430 Apr, [facility] [place] [facility] [address] [id number] [place] [address]- 1209 Apr, [facility] [place] [facility] [address] [id number] [place] [address]- 1012 Apr, [facility] [place] [facility] [address] [id number] [place] [address]- 7796 Apr, [facility] [place] [facility] [address] [id number] [place] [address]- 3551 Apr, [facility] [place] [facility] [address] [id number] [place] [address]- 9015 Apr, [facility] [place] [facility] [address] [id number] [place] [address]- 4364 Apr, [facility] [place] [facility] [address] [id number] [place] [address]- 8742 Apr, [facility] [place] [facility] [address] [id number] [place] [address]- 1782 Apr, [facility] [place] [facility] [address] [id number] [place] [address]- 2496 Apr, [facility] [place] [facility] [address] [id number] [place] [address]- 8027 Apr, [facility] [place] [facility] [address] [id number] [place] [address]- 6121 04 Apr, 2014 [facility] [place] [facility] [address] [id number] [place] [address]- 4670 04 Apr, 2014 [facility] [place] [facility] [address] [id number] [place] 1173 Apr, [facility] [place] [facility] [address] [id number] [place] [address]- 3517 Feb, [facility] [place] [facility] [address] [id number] [place] [address]- 9010 Feb, [facility] [place] [facility] [address] [id number] [place] [address]- 0673 Feb, [facility] [place] [facility] [address] [id number] [place] [address]- 7745 Feb, [facility] [place] [facility] [address] [id number] [place] [address]- 8543 Feb, [facility] [place] [facility] [address] [id number] [place] [address]- 7062 Feb, [facility] [place] [facility] [address] [id number] [place] [address]- 6822 Jan, 2013 [facility] [place] [facility] [address] [id number] [place] [address]- 0536 Jan, 2013 [facility] [place] [facility] [address] [id number] [place] [address]- 2643 Jan, 2013 [facility] [place] [facility] [address] [id number] [place] [address]- 1021 Jan, 2013 [facility] [place] [facility] [address] [id number] [place] [address]- 4608 Jan, 2013 [facility] [place] [facility] [address] [id number] [place] [address]- 0684 Jan, 2013 [facility] [place] [facility] [address] [id number] [place] [address]- 8622 Dec, [facility] [place] [facility] [address] [id number] [place] [address]- 3595 Dec, [facility] [place] [facility] [address] [id number] [place] [address]- 9459 Dec, [facility] [place] [facility] [address] [id number] [place] [address]- 1918 Dec, [facility] [place] [facility] [address] [id number] [place] [address]- 2180 Nov, [facility] [place] [facility] [address] [id number] [place] [address]- 9622 Nov, [facility] [place] [facility] [address] [id number] [place] [address]- 1324 Nov, [facility] [place] [facility] [address] [id number] [place] [address]- 3757 Nov, [facility] [place] [facility] [address] [id number] [place] [address]- 3191 Nov, [facility] [place] [facility] [address] [id number] [place] [address]- 4282 Nov, [facility] [place] [facility] [address] [id number] [place] [address]- 9494 Nov, [facility] [place] [facility] [address] [id number] [place] [address]- 2135 Nov, [facility] [place] [facility] [address] [id number] [place] [address]- 4943 Oct, [facility] [place] [facility] [address] [id number] [place] [address]- 4105 Oct, [facility] [place] [facility] [address] [id number] [place] [address]- 7516 Oct, [facility] [place] [facility] [address] [id number] [place] [address]- 2059 Oct, [facility] [place] [facility] [address] [id number] [place] [address]- 2162 Oct, [facility] [place] [facility] [address] [id number] [place] [address]- 0417 Oct, [facility] [place] [facility] [address] [id number] [place] [address]- 0363 Oct, [facility] [place] [facility] [address] [id number] [place] [address]- 8963 26 Oct, 2013 [facility] [place] [facility] [address] [id number] [place] [address]- 3900 Oct, [facility] [place] [facility] [address] [id number] [place] [address]- 0455 Oct, [facility] [place] [facility] [address] [id number] [place] [address]- 0924 Oct, [facility] [place] [facility] [address] [id number] [place] [address]- 2483 23 Oct, 2013 [facility] [place] [facility] [address] [id number] [place] [address]- 3180 18 Oct, 2013 [facility] [place] [facility] [address] [id number] [place] [address]- 8854 18 Oct, 2013 [facility] [place] [facility] [address] [id number] [place] [address]- 4706 17 Oct, 2013 [facility] [place] [facility] [address] [id number] [place] [address]- 4106 17 Oct, 2013 [facility] [place] [facility] [address] [id number] [place] [address]- 0777 16 Oct, 2013 [facility] [place] [facility] [address] [id number] [place] [address]- 9059 16 Oct, 2013 [facility] [place] [facility] [address] [id number] [place] [address]- 8741 13 Oct, 2013 [facility] [place] [facility] [address] [id number] [place] [address]- 8644 13 Oct, 2013 [facility] [place] [facility] [address] [id number] [place] [address]- 8130 11 Oct, 2013 [facility] [place] [facility] [address] [id number] [place] [address]- 4084 11 Oct, 2013 [facility] [place] [facility] [address] [id number] [place] [address] Oct, [facility] [place] [facility] [address] [id number] [place] [address] Oct, [facility] [place] [facility] [address] [id number] [place] [address] Oct, [facility] [place] [facility] [address] [id number] [place] [address] Oct, [facility] [place] [facility] [address] [id number] [place] [address] Oct, [facility] [place] [facility] [address] [id number] [place] [address] Oct, [facility] [place] [facility] [address] [id number] [place] [address] Oct, [facility] [place] [facility] [address] [id number] [place] [address] Oct, [facility] [place] [facility] [address] [id number] [place] [address] September, [facility] [place] [facility] [address] [id number] [place] [address] September, [facility] [place] [facility] [address] [id number] [place] [address] September, [facility] [place] [facility] [address] [id number] [place] [address] September, [facility] [place] [facility] [address] [id number] [place] [address] September, [facility] [place] [facility] [address] [id number] [place] [address] September, [facility] [place] [facility] [address] [id number] [place] [address] September, [facility] [place] [facility] [address] [id number] [place] [address] September, [facility] [place] [facility] [address] [id number] [place] [address] September, [facility] [address] [id number] [place] [address] September, [facility] [place] [facility] [address] [id number] [place] [address] September, [facility] [place] [facility] [address] [id number] [place] [address] September, [facility] [place] [facility] [address] [id number] [place] [address] September, [facility] [place] [facility] [address] [id number] [place] [address] September, [facility] [place] [facility] [address] [id number] [place] [address] September, [facility] [place] [facility] [address] [id number] [place] [address] September, [facility] [place] [facility] [address] [id number] [place] [address] September, [facility] [place] [facility] [address] [id number] [place] [address] September, [facility] [place] [facility] [address] [id number] [place] [address] Aug, [facility] [place] [facility] [address] [id number] [place] [address] Aug, [facility] [place] [facility] [address] [id number] [place] [address] Aug, [facility] [place] [facility] [address] [id number] [place] [address] Aug, [facility] [place] [facility] [address] [id number] [place] [address] Aug, [facility] [place] [facility] [address] [id number] [place] [address] Aug, [facility] [place] [facility] [address] [id number] [place] [address] Jul, [facility] [place] [facility] [address] [id number] [place] [address] Jul, [facility] [place] [facility] [address] [id number] [place] [address] Jul, [facility] [place] [facility] [address] [id number] [place] [address] Jul, [facility] [place] [facility] [address] [id number] [place] [address] Jun, [facility] [place] [facility] [address] [id number] [place] [address] 4[address] Jun, [facility] [place] [facility] [address] [id number] [place] [address] 9140 Jun, [facility] [place] [facility] [address] [id number] [place] [address] 2267 Jun, [facility] [place] [facility] [address] [id number] [place] [address] 8[address] Mar, [facility] [place] [facility] [address] [id number] [place] [address] 6[address] 14 Mar, 2013 [facility] [place] [facility] [address] [id number] [place] [address] Mar, [facility] [place] [facility] [address] [id number] [place] [address] 4464 Mar, [facility] [place] [facility] [address] [id number] [place] [address] 2513 Feb, [facility] [place] [facility] [address] [id number] [place] [address] 4[address] Feb, [facility] [place] [facility] [address] [id number] [place] [address] 5212 Feb, [facility] [place] [facility] [address] [id number] [place] [address] 2931 Jan, [facility] [place] [facility] [address] [id number] [place] [address] 3939 Jan, [facility] [place] [facility] [address] [id number] [place] [address]- 6513 Jan, [facility] [place] [facility] [address] [id number] [place] [address]- 1590 Jan, [facility] [place] [facility] [address] [id number] [place] [address]- 2785 Dec, [facility] [place] [facility] [address] [id number] [place] [address]- 9635 Dec, [facility] [place] [facility] [address] [id number] [place] [address]- 0476 Dec, [facility] [place] [facility] [address] [id number] [place] [address] 2116 Dec, [facility] [place] [facility] [address] [id number] [place] [address]- 7650 Nov, [facility] [place] [facility] [address] [id number] [place] [address]- 2481 Nov, [facility] [place] [facility] [address] [id number] [place] [address]- 6163 Nov, [facility] [place] [facility] [address] [id number] [place] [address]- 4726 Nov, [facility] [place] [facility] [address] [id number] [place] [address]- 3485 Nov, [facility] [place] [facility] [address] [id number] [place] [address]- 7308 Nov, [facility] [place] [facility] [address] [id number] [place] [address]- 9418 Oct, [facility] [place] [facility] [address] [id number] [place] [address]- 6543 Oct, [facility] [place] [facility] [address] [id number] [place] [address]- 1396 25 Oct, 2012 [facility] [address] [id number] [place] [address] 5929 21 Oct, 2012 [facility] [address] [id number] [place] [address]- 0326 17 Oct, 2012 [facility] [address] [id number] [place] [address]- 3133 16 Oct, 2012 [facility] [address] [id number] [place] [address]- 6542 14 Oct, 2012 [facility] [address] [id number] [place] [address]- 2361 13 Oct, 2012 [facility] [address] [id number] [place] [address]- 2685 Oct, [facility] [address] [id number] [place] [address]- 3523 Oct, [facility] [address] [id number] [place] [address]- 9532 September, [facility] [address] [id number] [place] [address] 6257 September, [facility] [address] [id number] [place] [address]- 7005 September, [facility] [address] [id number] [place] [address]- 3417 Aug, [facility] [address] [id number] [place] [address]- 0138 Aug, [facility] [place] [facility] [address] [id number] [place] [address]- 0886 Aug, [facility] [place] [facility] [address] [id number] [place] [id number] [address] Aug, [facility] [address] [id number] [place] [address]- 5934 Jul, [facility] [place] [facility] [address] [id number] [place] [address]- 7298 29 Jul, 2012 [facility] [address] [id number] [place] [address]- 7243 26 Jul, 2012 [facility] [address] [id number] [place] [address]- 3554 Jul, [facility] [address] [id number] [place] [address]- 0384 04 Jul, 2012 [facility] [address] [id number] [place] [address]- 4213 Jul, [facility] [address] [id number] [place] [address]- 0484 May, [facility] [address] [id number] [place] [address]- 8438 May, [facility] [address] [id number] [place] [address]- 3695 May, [facility] [address] [id number] [place] [address]- 6640 May, [facility] [address] [id number] [place] [address]- 3519 May, [facility] [address] [id number] [place] [address]- 9202 May, [facility] [address] [id number] [place] [address]- 0501 May, [facility] [place] [facility] [address] [id number] [place] [address]- 2565 May, [facility] [place] [facility] [address] [id number] [place] [address]- 4031 May, [facility] [place] [facility] [address] [id number] [place] [address]- 5410 May, [facility] [place] [facility] [address] [id number], [place] [address] 5531 May, [facility] [place] [facility] [address] [id number] [place] [address]- 7924 Apr, [facility] [place] [facility] [address] [id number] [place] [address]- 8464 Apr, [facility] [place] [facility] [address] [id number] [place] [address]- 2741 Apr, [facility] [place] [facility] [address] [id number] [place] [address]- 3504 Apr, [facility] [place] [facility] [address] [id number] [place] [address]- 4581 Apr, [facility] [place] [facility] [address] [id number] [place] [address]- 3274 Apr, [facility] [place] [facility] [address] [id number] [place] [address]- 7565 Mar, [facility] [place] [facility] [address] [id number] [place] [address]- 7437 Mar, [facility] [place] [facility] [address] [id number], [place] [address]- 3732 Mar, [facility] [place] [facility] [address] [id number] [place] [address]- 8568 Mar, [facility] [place] [facility] [address] [id number], [place] [address]- 3883 Mar, [facility] [place] [facility] [address] [id number], [place] [address]- 5334 Mar, [facility] [place] [facility] [address] [id number], [place] [address]- 5346 Mar, [facility] [place] [facility] [address] [id number], [place] [address]- 2741 Mar, [facility] [place] [facility] [address] [id number] [place] [address]- 6513 Feb, [facility] [place] [facility] [address] [id number] [place] [address]- 5879 23 Feb, 2011 [facility] [place] [facility] [address] [id number] [place] [address]- 8575 16 Feb, 2012 [facility] [place] [facility] [address] [id number] [place] [address]- 7646 15 Feb, 2012 [facility] [place] [facility] [address] [id number] [place] [address]- 6834 15 Feb, 2012 [facility] [place] [facility] [address] [id number] [place] [address]- 4452 13 Feb, 2012 [facility] [place] [facility] [address] [id number] [place] [address]- 6739 Feb, [facility] [place] [facility] [address] [id number] [place] [address]- 9658 Feb, [facility] [place] [facility] [address] [id number] [place] [address]- 7156 Feb, [facility] [place] [facility] [address] [id number] [place] [address]- 7867 Feb, [facility] [place] [facility] [address] [id number] [place] [address]- 7236 Feb, [facility] [place] [facility] [address] [id number] [place] [address]- 9863 Feb, [facility] [place] [facility] [address] [id number] [place] [address]- 3590 Feb, [facility] [place] [facility] [address] [id number] [place] [address]- 0535 Feb, [facility] [place] [facility] [address] [id number] [place] [address]- 8548 Feb, [facility] [place] [facility] [address] [id number] [place] [address]- 8496 Feb, [facility] [place] [facility] [address] [id number] [place] [address]- 2774 Feb, [facility] [place] [facility] [address] [id number] [place] [address]- 2994 Feb, [facility] [place] [facility] [address] [id number] [place] [address]- 4469 Jan, [facility] [place] [facility] [address] [id number] [place] [address]- 6337 13 Jan, 2012 [facility] [place] [facility] [address] [id number] [place] [address]- 1635 11 Jan, 2012 [facility] [place] [facility] [address] [id number] [place] [address]- 2515 10 Jan, 2012 [facility] [place] [facility] [address] [id number] [place] [address]- 6157 05 Jan, 2012 [facility] [place] [facility] [address] [id number] [place] [address]- 4495 Dec, [facility] [place] [facility] [address] [id number] [place] [address]- 2217 Dec, [facility] [place] [facility] [address] [id number] [place] [address]- 1971 Dec, [facility] [place] [facility] [address] [id number] [place] [address]- 1651 Dec, [facility] [place] [facility] [address] [id number] [place] [address]- 3993 Dec, [facility] [place] [facility] [address] [id number], [place] [address]- 4039 Dec, [facility] [place] [facility] [address] [id number] [place] [address]- 7222 Nov, [facility] [place] [facility] [address] [id number] [place] [address]- 8091 Nov, [facility] [place] [facility] [address] [id number] [place] [address]- 8939 Nov, [facility] [place] [facility] [address] [id number] [place] [address]- 9343 Nov, [facility] [place] [facility] [address] [id number] [place] [address]- 1546 Nov, [facility] [place] [facility] [address] [id number] [place] [address]- 9893 Oct, [facility] [place] [facility] [address] [id number] [place] [address]- 1764 Oct, [facility] [place] [facility] [address] [id number] [place] [address]- 9421 Oct, [facility] [place] [facility] [address] [id number] [place] [address]- 1322 September, [facility] [place] [facility] [address] [id number] [place] [address]- 0597 September, [facility] [address] [id number] [place] [address]- 3048 September, [facility] [place] [facility] [address] [id number] [place] [address]- 4762 September, [facility] [place] [facility] [address] [id number] [place] [address]- 0088 September, [facility] [place] [facility] [address] [id number] [place] [address]- 5259 September, [facility] [place] [facility] [address] [id number] [place] [address]- 7163 Aug, [facility] [place] [facility] [address] [id number] [place] [address]- 8167 Aug, [facility] [place] [facility] [address] [id number] [place] [address]- 8875 Aug, [facility] [place] [facility] [address] [id number] [place] [address]- 9580 Jun, [facility] [place] [facility] [address] [id number] [place] [address]- 9377 Jun, [facility] [place] [facility] [address] [id number] [place] [address]- 8973 Jun, [facility] [address] [id number] [place] [address]- 0576 Jun, [facility] [address] [id number] [place] [address]- 3497 May, [facility] [address] [id number] [place] [address]- 0301 May, [facility] [address] [id number] [place] [address]- 4675 May, [facility] [address] [id number] [place] [address]- 5677 May, [facility] [address] [id number] [place] [address]- 6447 May, [facility] [address] [id number] [place] [address]- 7204 Apr, [facility] [address] [id number] [place] [address]- 9264 Apr, [facility] [address] [id number] [place] [address]- 2442 Apr, [facility] [address] [id number] [place] [address]- 7000 Apr, [facility] [address] [id number] [place] [address]- 9036 Apr, [facility] [place] [facility] [address] [id number] [place] [address] Apr, [facility] [place] [facility] [address] [id number] [place] [address]- 1306 Apr, [facility] [place] [facility] [address] [id number] [place] [address]- 3010 Mar, [facility] [place] [facility] [address] [id number], [place] [address]- 8878 Mar, [facility] [place] [facility] [address] [id number] [place] [address]- 5191 Mar, [facility] [place] [facility] [address] [id number] [place] [address]- 4978 Feb, [facility] [place] [facility] [address] [id number] [place] [address]- 3147 Feb, [facility] [place] [facility] [address] [id number] [place] [address]- 4888 Feb, [facility] [place] [facility] [address] [id number] [place] [address]- 6310 Feb, [facility] [place] [facility] [address] [id number] [place] [address]- 0050 Feb, [facility] [place] [facility] [address] [facility] [id number] [place] [address]- 1398 Feb, [facility] [place] [facility] [address] [id number] [place] [address]- 6249 Jan, [facility] [place] [facility] [address] [id number] [place] [address]- 9469 Jan, [facility] [place] [facility] [address] [facility] [id number] [place] [address]- 4619 September, [facility] [place] [facility] [address] [id number], [place] [address]- 2093 Jun, [facility] [place] [facility] [address] [id number], [place] [address]- 8228 Apr, [facility] [place] [facility] [address] [id number] [place] [address]- 9502 Apr, [facility] [place] [facility] [address] [id number] [place] [address]- 6667 Apr, [facility] [place] [facility] [address] [facility] [id number] [place] [address]- 1211 Apr, [facility] [place] [facility] [address] [id number], [place] [address]- 0114 Apr, [facility] [id number], [place] [address]- 6585 30 Mar, 2010 [facility] [id number], [place] [address]- 5433 Mar, [facility] [id number], [place] [address]- 8609 Mar, [facility] [id number], [place] [address]- 3720 Mar, [facility] [id number] [place] [address]- 5419 Feb, [facility] [id number], [place] [address]- 6306 15 Jan, 2010 [facility] [id number], [place] [address]- 1006 Mar, [facility] [id number], [place] [address]- 0677 15 Jan, 2009 [facility] [id number], [place] [address]- 7281 Oct, [facility] [address] [id number], [place] [address]- 5904 Apr, IMMUNIZATIONS No Known Immunizations SOCIAL HISTORY Never Assessed REASON FOR VISIT Blood pressure check--[facility] PLAN OF [facility] VITAL SIGNS Height 66 in 2017-06-15 Blood pressure systolic 130 mmHg 2017-06-15 Blood pressure diastolic 82 mmHg 2017-06-15 MEDICATIONS Unknown Medications RESULTS No Results PROCEDURES [...]
--- OUTSIDE RECORDS SUMMARY | 2018-03-22 21:55 | XMS REPORT ---
Author Author BRITANY BOSCH [facility] Address [address] [place] [address] Care Team Providers Care Creative Strategist Name Role Phone DANITZA BRITANY Unavailable PROBLEMS Type Condition ICD9-CM Code [id number] Code Onset Dates Condition Status SNOMED Code Problem Other chronic pain G89.29 Active 05094256 Problem Pain in left foot M79.672 Active 851424063696148 Problem Plantar wart of right foot B07.0 Active 84843966 Problem Obesity (BMI 30-39.9) E66.9 Active 373182341 Problem Heartburn R12 Active 38760906 Problem Rhinosinusitis J32.9 Active 49930245 Problem Other obesity due to excess calories E66.09 Active 824402225 Problem Pain in right foot M79.671 Active [id number] Problem Alternating constipation and diarrhea R19.8 Active 082831795 Problem Acute non-recurrent maxillary sinusitis J01.00 Active 94590128 Problem Essential hypertension I10 Active 21200985 Problem Bilateral low back pain without sciatica M54.5 Active 263646473 Problem Irritable bowel syndrome without diarrhea K58.9 Active 98939226 Problem Bilateral low back pain, with sciatica presence unspecified M54.5 Active 677176560 Problem High risk bisexual behavior Z72.53 Active 811608011 Problem Long-term use of high-risk medication Z79.899 Active 354580257 Problem Pre-diabetes R73.03 Active 812962656 Problem Impacted cerumen of right ear H61.21 Active 18870280 Problem Anxiety F41.9 Active 43388934 Problem Folliculitis L73.9 Active 25221988 ALLERGIES No Information ENCOUNTERS Encounter Location Date Diagnosis [facility] [address] [facility] [id number] [address] Nov, [facility] [id number] [place] [address] 40617- 7805 Oct, Abscess of groin, left L02.214 and Pre-diabetes R73.03 [facility] [address] [address]- [address] September, Pre-diabetes R73.03 [facility] [address] 37771- 0468 Aug, [facility] [address] 47583- 7696 Jul, Bilateral low back pain without sciatica M54.5 [facility] [address] 53240- 0378 Jun, [facility] [address] 8[address]64- 1502 Jun, [facility] [address] 65881- 0305 Jun, [facility] [address] 37927- 5993 May, [facility] [address] 64012- 7064 May, Ingrown left greater toenail L60.0 [facility] [id number] [place] [address] 71713- 2428 May, [facility] [address] [address] May, Influenza A J10.1 ; Fever R50.9 and Body aches R52 [facility] [address] [address]- [address] Apr, [facility] [address] 75499- 1498 Apr, [facility] [address] 13431- 7454 Apr, [place] [id number] [place] [address] 41808- 9536 05 Apr, 2017 Abscess L02.91 and Obesity (BMI 30-39.9) E66.9 [place] [id number] [place] [address] 38151- 8428 Apr, [place] [address] 27359- 0410 Apr, [place] [address] 21325- 4860 Mar, Acute non-recurrent maxillary sinusitis J01.00 [place] [address] 47899- 3893 Feb, Heartburn R12 [place] [address] 38725- 9754 Feb, Heartburn R12 ; Low back pain M54.5 ; Essential hypertension I10 ; Bilateral low back pain without sciatica M54.5 ; Anxiety F41.9 ; Pre-diabetes R73.03 ; Other obesity due to excess calories E66.09 ; Alternating constipation and diarrhea R19.8 ; Dyspepsia R10.13 ; Generalized abdominal pain R10.84 ; Rhinosinusitis J32.9 and Boil L02.92 [place] [id number] [place] [address] 56569- 3235 Jan, Heartburn R12 [place] [id number] [place] [address] 74107- 9999 Jan, [place] [id number] [place] [address] 76832- 5400 Jan, [place] [id number] [place] [address] 97324- 1036 Jan, Acute seasonal allergic rhinitis due to pollen J30.1 and Irritable bowel syndrome without diarrhea K58.9 [place] [address] 86130- 3474 Dec, Low back pain M54.5 and Acute cystitis with hematuria N30.01 [place] [address] 26052- 3388 Dec, Low back pain M54.5 and Acute cystitis with hematuria N30.01 [place] [address] 92918- 6155 Dec, Heartburn R12 ; Essential hypertension I10 ; Acute non- recurrent maxillary sinusitis J01.00 ; Bilateral low back pain without sciatica M54.5 ; Anxiety F41.9 ; Pre-diabetes R73.03 ; Pain in right foot M79.671 ; Pain in left foot M79.672 ; Other obesity due to excess calories E66.09 and Acute cystitis with hematuria N30.01 [place] [address] 67257- 2928 Dec, Bilateral low back pain without sciatica M54.5 ; Acute non- recurrent maxillary sinusitis J01.00 and Pre-diabetes R73.03 [place] [address] 15229- 3602 Oct, [facility] [address] 9[address]26 -8838 Aug, [facility] [address] 88797 -3914 Aug, Acute vaginitis N76.0 ; Urinary frequency R35.0 ; Screen for STD (sexually transmitted disease) Z11.3 and Abscess L02.91 [place] [address] 46046- 0044 Aug, Plantar wart of right foot B07.0 [place] [address] 23850- 3398 Jul, Plantar wart of right foot B07.0 [place] [address] 52228- 9181 Jun, [facility] [id number] [place] [address] 72718- 8115 Jun, Heartburn R12 ; Essential hypertension I10 ; Anxiety F41.9 ; Folliculitis L73.9 and Plantar wart of right foot B07.0 [place] [address] [id number] [place] [address] 50895- 6919 Jun, [facility] [address] 78331 -0115 May, Low back pain M54.5 and Other chronic pain G89.29 [place] [address] 34858- 7122 May, [place] [address] 36809- 6558 May, [place] [address] 30592- 5795 May, Heartburn R12 ; Bilateral low back pain without sciatica M54.5 ; Essential hypertension I10 ; Long-term use of high-risk medication Z79.899 ; Anxiety F41.9 ; Impacted cerumen of right ear H61.21 ; Folliculitis L73.9 ; High risk bisexual behavior Z72.53 and General medical exam Z00.00 [place] [id number] [place] [address] 33721- 7509 May, [place] [id number] [place] [address] 93968- 0505 May, [place] [id number] [place] [address] 10309- 7488 Mar, Acute nasopharyngitis J00 ; Acute intractable tension-type headache G44.201 and Cough R05 [place] [id number] [place] [address] 35828- 5823 Jan, [facility] [address] [address]87[address] -0353 29 Jan, 2016 Abscess L02.91 [facility] [address] [address] 10 Jan, 2016 Urinary urgency R39.15 and Urinary tract infection without hematuria, site unspecified N39.0 [facility] [address], [place] [address]- 6778 Jan, [facility] [id number] [place] [address] 69743- 9415 Jan, [facility] [address], [place] [address]- 7367 Dec, [facility] [id number] [place] [address] 51283- 0140 Dec, Dermatofibroma D23.9 [facility] [id number] [place] [address] 33785- 3909 September, [facility] [id number] [place] [address] 00879- 9583 Aug, [facility] [id number] [place] [address] 11485- 1675 Aug, Pain in left knee M25.562 ; Heartburn R12 ; Bilateral low back pain without sciatica M54.5 ; Essential hypertension I10 ; Ingrown left big toenail L60.0 ; Chronic pain G89.29 ; Irritable bowel syndrome with constipation K58.9 and Skin infection L08.9 [facility] [address], [place] [address]- 5865 Aug, [facility] [id number] [place] [address] 77057- 8745 Jul, [facility] [address] [id number] [address]- 2962 Jun, [facility] [address], [place] [address]- 2579 Jun, [place] [address], [place] [address]- 8757 Jun, [facility] [id number] [place] [address] 15599- 9733 Jun, [facility] [id number] [place] [address] 86967- 8752 Jun, Upper respiratory infection J06.9 ; Bilateral low back pain without sciatica M54.5 and Headache R51 [facility] [id number] [place] [address] 58831- 1349 May, [facility] [id number] [place] [address] 01802- 9301 Apr, Bilateral low back pain without sciatica M54.5 ; Upper respiratory infection J06.9 and Yeast dermatitis B37.2 [facility] [id number] [place] [address] 61535- 7824 Apr, [facility] [id number] [place] [address] 00903- 0578 Apr, [facility] [id number] [place] [address] 42575- 6910 Feb, [facility] [id number] [place] [address] 84547- 3920 Feb, [facility] [id number] [place] [address] 31051- 2196 Feb, [facility] [id number] [place] [address] 50804- 1995 Feb, Essential hypertension I10 ; Heartburn R12 ; Irritable bowel syndrome without diarrhea K58.9 ; Bilateral low back pain, with sciatica presence unspecified M54.5 and Upper respiratory infection J06.9 [facility] [id number] [place] [address] 43459- 0897 Feb, [facility] [id number] [place] [address] 34885- 2226 Feb, Generalized anxiety disorder F41.1 and Grief F43.20 [place] [id number] [place] [address] 322611- 8489 Jan, [place] [address] 222561- 3135 Jan, Back pain 724.5 ; Upper respiratory infection 465.9 ; HTN ( hypertension) 401.9 and Dyspepsia 536.8 [place] [id number] [place] [address] 97373- 9481 Dec, [place] [address] 44494- 9633 Nov, Back pain 724.5 ; Abdominal pain, bilateral lower quadrant 789.03 ; GERD (gastroesophageal reflux disease) 530.81 ; Upper respiratory infection 465.9 ; Dysuria 788.1 and HTN (hypertension) 401.9 [place] [address] 56256- 2229 Nov, [place] [id number] [place] [address] 80748- 2737 Nov, [place] [id number] [place] [address] 45102- 8237 Nov, [place] [id number] [place] [address] 19916- 0627 Nov, Cough 786.2 [place] [id number] [place] [address] 38248- 8635 Nov, Cough 786.2 [place] [id number] [place] [address] 45164- 9812 Oct, Unspecified episodic mood disorder 296.90 and Anxiety disorder, unspecified 300.00 [place] [id number] [place] [address] 33472- 3310 Oct, Abdominal pain, left upper quadrant 789.02 ; Essential hypertension, benign 401.1 ; Irritable bowel syndrome 564.1 ; Abscess 682.9 ; Heartburn 787.1 ; Acute sinusitis, unspecified 461.9 ; Muscle spasm of back 724.8 ; Cough 786.2 and Skin tag 701.9 [facility] [address], [place] [address]- 2868 September, [facility] [address], [place] [address]- 4951 September, [facility] [address] [id number] [address]- 7603 September, [facility] [id number] [place] [address] 06589- 6640 Aug, [facility] [address] [id number] [address]- 7135 Aug, [facility] [id number] [place] [address] 15464- 2645 Jul, [facility] [address], [place] [address]- 4458 Jul, [facility] [address], [place] [address]- 6753 Jul, [facility] [address], [place] [address]- 6945 Jul, [facility] [address], [place] [address]- 7738 Jul, [facility] [address], [place] [address]- 0752 Jul, [facility] [address], [place] [address]- 6684 Jul, [facility] [address]- 2157 Jul, [facility] [address] 0045 Jul, [facility] [place] [facility] [address] [id number] [place] [address]- 0359 Jul, [facility] [place] [facility] [address] [id number] [place] [address]- 2361 Jul, 2014 [facility] [place] [facility] [address] [id number] [place] [address]- 8250 Jul, [facility] [place] [facility] [address] [id number] [place] [address]- 0037 Jul, 2014 [facility] [place] [facility] [address] [id number] [place] [address]- 4564 Jul, [facility] [place] [facility] [address] [id number] [place] [address]- 1646 Jul, [facility] [place] [facility] [address] [facility] [id number] [place] [address]- 2626 Jul, [facility] [place] [facility] [address] [id number] [place] [address]- 2181 Jul, [facility] [place] [facility] [address] [id number] [place] [address]- 4274 Jun, [facility] [place] [facility] [address] [id number] [place] [address]- 7225 Jun, [facility] [place] [facility] [address] [facility] [id number] [place] [address]- 4414 Jun, [facility] [place] [facility] [address] [id number] [place] [address]- 2064 Jun, 2014 [facility] [place] [facility] [address] [id number] [place] [address]- 0198 Jun, [facility] [place] [facility] [address] [id number] [place] [address]- 5063 Jun, 2014 [facility] [place] [facility] [address] [facility] [id number] [place] [address]- 5769 Jun, 2014 [facility] [place] [facility] [address] [facility] [id number] [place] [address]- 4072 03 Jun, 2014 [facility] [address] [id number] [place] [address]- 2112 Apr, [facility] [place] [facility] [address] [id number] [place] [address]- 7517 Apr, [facility] [place] [facility] [address] [id number] [place] [address]- 5193 Apr, [facility] [place] [facility] [address] [id number] [place] [address]- 1280 Apr, [facility] [place] [facility] [address] [id number] [place] [address]- 1191 Apr, [facility] [place] [facility] [address] [id number] [place] [address]- 0039 Apr, [facility] [place] [facility] [address] [id number] [place] [address]- 0328 Apr, [facility] [place] [facility] [address] [id number] [place] [address]- 3663 Apr, [facility] [place] [facility] [address] [id number] [place] [address]- 4899 Apr, [facility] [place] [facility] [address] [id number] [place] [address]- 0820 Apr, [facility] [place] [facility] [address] [id number] [place] [address]- 8386 Apr, [facility] [place] [facility] [address] [id number] [place] [address]- 8481 Apr, [facility] [place] [facility] [address] [id number] [place] [address]- 7032 04 Apr, 2014 [facility] [place] [facility] [address] [id number] [place] [address]- 0002 04 Apr, 2014 [facility] [place] [facility] [address] [id number] [place] 0642 Apr, [facility] [place] [facility] [address] [id number] [place] [address]- 8998 Feb, [facility] [place] [facility] [address] [id number] [place] [address]- 3477 Feb, [facility] [place] [facility] [address] [id number] [place] [address]- 8051 Feb, [facility] [place] [facility] [address] [id number] [place] [address]- 0514 Feb, [facility] [place] [facility] [address] [id number] [place] [address]- 5639 Feb, [facility] [place] [facility] [address] [id number] [place] [address]- 3485 Feb, [facility] [place] [facility] [address] [id number] [place] [address]- 8306 Jan, 2013 [facility] [place] [facility] [address] [id number] [place] [address]- 2642 Jan, 2013 [facility] [place] [facility] [address] [id number] [place] [address]- 6847 Jan, 2013 [facility] [place] [facility] [address] [id number] [place] [address]- 3094 Jan, 2013 [facility] [place] [facility] [address] [id number] [place] [address]- 7939 Jan, 2013 [facility] [place] [facility] [address] [id number] [place] [address]- 5791 Jan, 2013 [facility] [place] [facility] [address] [id number] [place] [address]- 0060 Dec, [facility] [place] [facility] [address] [id number] [place] [address]- 4126 Dec, [facility] [place] [facility] [address] [id number] [place] [address]- 4109 Dec, [facility] [place] [facility] [address] [id number] [place] [address]- 5103 Dec, [facility] [place] [facility] [address] [id number] [place] [address]- 7024 Nov, [facility] [place] [facility] [address] [id number] [place] [address]- 2704 Nov, [facility] [place] [facility] [address] [id number] [place] [address]- 0452 Nov, [facility] [place] [facility] [address] [id number] [place] [address]- 7659 Nov, [facility] [place] [facility] [address] [id number] [place] [address]- 5773 Nov, [facility] [place] [facility] [address] [id number] [place] [address]- 0558 Nov, [facility] [place] [facility] [address] [id number] [place] [address]- 8866 Nov, [facility] [place] [facility] [address] [id number] [place] [address]- 2418 Nov, [facility] [place] [facility] [address] [id number] [place] [address]- 0870 Oct, [facility] [place] [facility] [address] [id number] [place] [address]- 3654 Oct, [facility] [place] [facility] [address] [id number] [place] [address]- 3044 Oct, [facility] [place] [facility] [address] [id number] [place] [address]- 1063 Oct, [facility] [place] [facility] [address] [id number] [place] [address]- 0352 Oct, [facility] [place] [facility] [address] [id number] [place] [address]- 6728 Oct, [facility] [place] [facility] [address] [id number] [place] [address]- 8124 Oct, [facility] [place] [facility] [address] [id number] [place] [address]- 0442 26 Oct, 2013 [facility] [place] [facility] [address] [id number] [place] [address]- 5866 Oct, [facility] [place] [facility] [address] [id number] [place] [address]- 9564 Oct, [facility] [place] [facility] [address] [id number] [place] [address]- 0332 Oct, [facility] [place] [facility] [address] [id number] [place] [address]- 2226 23 Oct, 2013 [facility] [place] [facility] [address] [id number] [place] [address]- 4864 18 Oct, 2013 [facility] [place] [facility] [address] [id number] [place] [address]- 3400 18 Oct, 2013 [facility] [place] [facility] [address] [id number] [place] [address]- 7143 17 Oct, 2013 [facility] [place] [facility] [address] [id number] [place] [address]- 1036 17 Oct, 2013 [facility] [place] [facility] [address] [id number] [place] [address]- 4510 16 Oct, 2013 [facility] [place] [facility] [address] [id number] [place] [address]- 8917 16 Oct, 2013 [facility] [place] [facility] [address] [id number] [place] [address]- 8242 13 Oct, 2013 [facility] [place] [facility] [address] [id number] [place] [address] 13 Oct, 2013 [facility] [place] [facility] [address] [id number] [place] [address] 11 Oct, 2013 [facility] [place] [facility] [address] [id number] [place] [address] 11 Oct, 2013 [facility] [place] [facility] [address] [id number] [place] [address] Oct, [facility] [place] [facility] [address] [id number] [place] [address] Oct, [facility] [place] [facility] [address] [id number] [place] [address] Oct, [facility] [place] [facility] [address] [id number] [place] [address] Oct, [facility] [place] [facility] [address] [id number] [place] [address] Oct, [facility] [place] [facility] [address] [id number] [place] [address]38 Oct, [facility] [place] [facility] [address] [id number] [place] [address] Oct, [facility] [place] [facility] [address] [id number] [place] [address] 2099 Oct, [facility] [place] [facility] [address] [id number] [place] [address] September, [facility] [place] [facility] [address] [id number] [place] [address] September, [facility] [place] [facility] [address] [id number] [place] [address]- 2488 September, [facility] [place] [facility] [address] [id number] [place] [address] September, [facility] [place] [facility] [address] [id number] [place] [address]- 9770 September, [facility] [place] [facility] [address] [id number] [place] [address]- [address] September, [facility] [place] [facility] [address] [id number] [place] [address]- [address] September, [facility] [place] [facility] [address] [id number] [place] [address] [address] September, [facility] [place] [facility] [address] [id number] [place] [address] September, [facility] [address] [id number] [place] [address] 359[address] September, [facility] [place] [facility] [address] [id number] [place] [address]- 1076 September, [facility] [place] [facility] [address] [id number] [place] [address] 76[address] September, [facility] [place] [facility] [address] [id number] [place] [address] September, [facility] [place] [facility] [address] [id number] [place] [address]- 1053 September, [facility] [place] [facility] [address] [id number] [place] [address]- 37[address] September, [facility] [place] [facility] [address] [id number] [place] [address]- 18[address] September, [facility] [place] [facility] [address] [id number] [place] [address]108 September, [facility] [place] [facility] [address] [id number] [place] [address] 3556 September, [facility] [place] [facility] [address] [id number] [place] [address] Aug, [facility] [place] [facility] [address] [id number] [place] [address]- [address] Aug, [facility] [place] [facility] [address] [id number] [place] [address]- 47[address] Aug, [facility] [place] [facility] [address] [id number] [place] [address]- [address] Aug, [facility] [place] [facility] [address] [id number] [place] [address]- [address] Aug, [facility] [place] [facility] [address] [id number] [place] [address]144 Aug, [facility] [place] [facility] [address] [id number] [place] [address] Jul, [facility] [place] [facility] [address] [id number] [place] [address]- [address] Jul, [facility] [place] [facility] [address] [id number] [place] [address]- [address] Jul, [facility] [place] [facility] [address] [id number] [place] [address] Jul, [facility] [place] [facility] [address] [id number] [place] [address] Jun, [facility] [place] [facility] [address] [id number] [place] [address]- [address] Jun, [facility] [place] [facility] [address] [id number] [place] [address] Jun, [facility] [place] [facility] [address] [id number] [place] [address] Jun, [facility] [place] [facility] [address] [id number] [place] [address] 8[address] Mar, [facility] [place] [facility] [address] [id number] [place] [address] 14 Mar, 2013 [facility] [place] [facility] [address] [id number] [place] [address]- 2656 Mar, [facility] [place] [facility] [address] [id number] [place] [address]- 0921 Mar, [facility] [place] [facility] [address] [id number] [place] [address]- 3751 Feb, [facility] [place] [facility] [address] [id number] [place] [address]- 6161 Feb, [facility] [place] [facility] [address] [id number] [place] [address]- 3295 Feb, [facility] [place] [facility] [address] [id number] [place] [address]- 25[address] Jan, [facility] [place] [facility] [address] [id number] [place] [address]- 0599 Jan, [facility] [place] [facility] [address] [id number] [place] [address]- 9310 Jan, [facility] [place] [facility] [address] [id number] [place] [address]- 5491 Jan, [facility] [place] [facility] [address] [id number] [place] [address]- 5736 Dec, [facility] [place] [facility] [address] [id number] [place] [address]- 2463 Dec, [facility] [place] [facility] [address] [id number] [place] [address]- 0883 Dec, [facility] [place] [facility] [address] [id number] [place] [address]- 0054 Dec, [facility] [place] [facility] [address] [id number] [place] [address]- 0477 Nov, [facility] [place] [facility] [address] [id number] [place] [address]- 4470 Nov, [facility] [place] [facility] [address] [id number] [place] [address]- 9428 Nov, [facility] [place] [facility] [address] [id number] [place] [address]- 2013 Nov, [facility] [place] [facility] [address] [id number] [place] [address]- 8399 Nov, [facility] [place] [facility] [address] [id number] [place] [address]- 8059 Nov, [facility] [place] [facility] [address] [id number] [place] [address]- 2649 Oct, [facility] [place] [facility] [address] [id number] [place] [address]- 1894 Oct, [facility] [place] [facility] [address] [id number] [place] [address]- 8837 25 Oct, 2012 [facility] [address] [id number] [place] [address]- [address] 21 Oct, 2012 [facility] [address] [id number] [place] [address]- 9052 17 Oct, 2012 [facility] [address] [id number] [place] [address]- 0789 16 Oct, 2012 [facility] [address] [id number] [place] [address]- 0136 14 Oct, 2012 [facility] [address] [id number] [place] [address]- 6554 13 Oct, 2012 [facility] [address] [id number] [place] [address]- 4206 Oct, [facility] [address] [id number] [place] [address]- 6725 Oct, [facility] [address] [id number] [place] [address]- 5558 September, [facility] [address] [id number] [place] [address]- 2488 September, [facility] [address] [id number] [place] [address]- 0256 September, [facility] [address] [id number] [place] [address]- 2046 Aug, [facility] [address] [id number] [place] [address]- 9322 Aug, [facility] [place] [facility] [address] [id number] [place] [address]- 8890 Aug, [facility] [place] [facility] [address] [id number] [place] [id number] [address] Aug, [facility] [address] [id number] [place] [address]- 7139 Jul, [facility] [place] [facility] [address] [id number] [place] [address]- 7504 29 Jul, 2012 [facility] [address] [id number] [place] [address]- 8774 26 Jul, 2012 [facility] [address] [id number] [place] [address]- 1031 Jul, [facility] [address] [id number] [place] [address]- 6470 04 Jul, 2012 [facility] [address] [id number] [place] [address]- 1915 Jul, [facility] [address] [id number] [place] [address]- 0017 May, [facility] [address] [id number] [place] [address]- 8379 May, [facility] [address] [id number] [place] [address]- 4025 May, [facility] [address] [id number] [place] [address]- 2843 May, [facility] [address] [id number] [place] [address]- 9168 May, [facility] [address] [id number] [place] [address]- 6973 May, [facility] [address] [id number] [place] [address]- 1207 May, [facility] [place] [facility] [address] [id number] [place] [address]- 9080 May, [facility] [place] [facility] [address] [id number] [place] [address]- 8893 May, [facility] [place] [facility] [address] [id number] [place] [address]- 9357 May, [facility] [place] [facility] [address] [id number], [place] [address]- 7981 May, [facility] [place] [facility] [address] [id number] [place] [address]- 4770 Apr, [facility] [place] [facility] [address] [id number] [place] [address]- 8717 Apr, [facility] [place] [facility] [address] [id number] [place] [address]- 2010 Apr, [facility] [place] [facility] [address] [id number] [place] [address]- 8641 Apr, [facility] [place] [facility] [address] [id number] [place] [address]- 3571 Apr, [facility] [place] [facility] [address] [id number] [place] [address]- 6945 Apr, [facility] [place] [facility] [address] [id number] [place] [address]- 3586 Mar, [facility] [place] [facility] [address] [id number] [place] [address]- 7920 Mar, [facility] [place] [facility] [address] [id number], [place] [address]- 1240 Mar, [facility] [place] [facility] [address] [id number] [place] [address]- 6359 Mar, [facility] [place] [facility] [address] [id number], [place] [address]- 4749 Mar, [facility] [place] [facility] [address] [id number], [place] [address]- 9227 Mar, [facility] [place] [facility] [address] [id number], [place] [address]- 3529 Mar, [facility] [place] [facility] [address] [id number], [place] [address]- 9550 Mar, [facility] [place] [facility] [address] [id number] [place] [address]- 4027 Feb, [facility] [place] [facility] [address] [id number] [place] [address]- 3475 23 Feb, 2011 [facility] [place] [facility] [address] [id number] [place] [address]- 9612 16 Feb, 2012 [facility] [place] [facility] [address] [id number] [place] [address]- 7086 15 Feb, 2012 [facility] [place] [facility] [address] [id number] [place] [address]- 3953 15 Feb, 2012 [facility] [place] [facility] [address] [id number] [place] [address]- 4390 13 Feb, 2012 [facility] [place] [facility] [address] [id number] [place] [address]- 6578 Feb, [facility] [place] [facility] [address] [id number] [place] [address]- 3599 Feb, [facility] [place] [facility] [address] [id number] [place] [address]- 7147 Feb, [facility] [place] [facility] [address] [id number] [place] [address]- 2661 Feb, [facility] [place] [facility] [address] [id number] [place] [address]- 8415 Feb, [facility] [place] [facility] [address] [id number] [place] [address]- 6184 Feb, [facility] [place] [facility] [address] [id number] [place] [address]- 2891 Feb, [facility] [place] [facility] [address] [id number] [place] [address]- 0376 Feb, [facility] [place] [facility] [address] [id number] [place] [address]- 1347 Feb, [facility] [place] [facility] [address] [id number] [place] [address]- 8970 Feb, [facility] [place] [facility] [address] [id number] [place] [address]- 2054 Feb, [facility] [place] [facility] [address] [id number] [place] [address]- 3894 Feb, [facility] [place] [facility] [address] [id number] [place] [address]- 8933 Jan, [facility] [place] [facility] [address] [id number] [place] [address]- 4128 13 Jan, 2012 [facility] [place] [facility] [address] [id number] [place] [address]- 0394 11 Jan, 2012 [facility] [place] [facility] [address] [id number] [place] [address]- 7631 10 Jan, 2012 [facility] [place] [facility] [address] [id number] [place] [address]- 2422 05 Jan, 2012 [facility] [place] [facility] [address] [id number] [place] [address]- 6451 Dec, [facility] [place] [facility] [address] [id number] [place] [address]- 5635 Dec, [facility] [place] [facility] [address] [id number] [place] [address]- 8011 Dec, [facility] [place] [facility] [address] [id number] [place] [address]- 2663 Dec, [facility] [place] [facility] [address] [id number] [place] [address]- 6622 Dec, [facility] [place] [facility] [address] [id number], [place] [address]- 5200 Dec, [facility] [place] [facility] [address] [id number] [place] [address]- 5872 Nov, [facility] [place] [facility] [address] [id number] [place] [address]- 2567 Nov, [facility] [place] [facility] [address] [id number] [place] [address]- 7924 Nov, [facility] [place] [facility] [address] [id number] [place] [address]- 5598 Nov, [facility] [place] [facility] [address] [id number] [place] [address]- 7291 Nov, [facility] [place] [facility] [address] [id number] [place] [address]- 0240 Oct, [facility] [place] [facility] [address] [id number] [place] [address]- 9958 Oct, [facility] [place] [facility] [address] [id number] [place] [address]- 8908 Oct, [facility] [place] [facility] [address] [id number] [place] [address]- 5062 September, [facility] [place] [facility] [address] [id number] [place] [address]- 8330 September, [facility] [address] [id number] [place] [address]- 6900 September, [facility] [place] [facility] [address] [id number] [place] [address]- 6757 September, [facility] [place] [facility] [address] [id number] [place] [address]- 6262 September, [facility] [place] [facility] [address] [id number] [place] [address]- 8198 September, [facility] [place] [facility] [address] [id number] [place] [address]- 0529 Aug, [facility] [place] [facility] [address] [id number] [place] [address]- 6212 Aug, [facility] [place] [facility] [address] [id number] [place] [address]- 0634 Aug, [facility] [place] [facility] [address] [id number] [place] [address]- 8512 Jun, [facility] [place] [facility] [address] [id number] [place] [address]- 3951 Jun, [facility] [place] [facility] [address] [id number] [place] [address]- 3023 Jun, [facility] [address] [id number] [place] [address]- 0666 Jun, [facility] [address] [id number] [place] [address]- 7222 May, [facility] [address] [id number] [place] [address]- 2704 May, [facility] [address] [id number] [place] [address]- 7375 May, [facility] [address] [id number] [place] [address]- 0339 May, [facility] [address] [id number] [place] [address]- 6810 May, [facility] [address] [id number] [place] [address]- 6016 Apr, [facility] [address] [id number] [place] [address]- 8987 Apr, [facility] [address] [id number] [place] [address]- 2350 Apr, [facility] [address] [id number] [place] [address]- 4335 Apr, [facility] [address] [id number] [place] [address]- 6795 Apr, [facility] [place] [facility] [address] [id number] [place] [address] Apr, [facility] [place] [facility] [address] [id number] [place] [address]- 0086 Apr, [facility] [place] [facility] [address] [id number] [place] [address]- 5995 Mar, [facility] [place] [facility] [address] [id number], [place] [address]- 1314 Mar, [facility] [place] [facility] [address] [id number] [place] [address]- 1574 Mar, [facility] [place] [facility] [address] [id number] [place] [address]- 1016 Feb, [facility] [place] [facility] [address] [id number] [place] [address]- 6457 Feb, [facility] [place] [facility] [address] [id number] [place] [address]- 1363 Feb, [facility] [place] [facility] [address] [id number] [place] [address]- 1867 Feb, [facility] [place] [facility] [address] [id number] [place] [address]- 1518 Feb, [facility] [place] [facility] [address] [facility] [id number] [place] [address]- 2440 Feb, [facility] [place] [facility] [address] [id number] [place] [address]- 7516 Jan, [facility] [place] [facility] [address] [id number] [place] [address]- 5054 Jan, [facility] [place] [facility] [address] [facility] [id number] [place] [address]- 5564 September, [facility] [place] [facility] [address] [id number], [place] [address]- 3207 Jun, [facility] [place] [facility] [address] [id number], [place] [address]- 8469 Apr, [facility] [place] [facility] [address] [id number] [place] [address]- 0135 Apr, [facility] [place] [facility] [address] [id number] [place] [address]- 0246 Apr, [facility] [place] [facility] [address] [facility] [id number] [place] [address]- 3122 Apr, [facility] [place] [facility] [id number], [place] [address]- 3979 Apr, [facility] [id number] 1342 Mar, [facility] [id number] [address]562 Mar, [facility] [id number], [place] [address]- 8302 Mar, [facility] [id number], [place] [address]- 6441 Mar, [facility] [id number] 3239 Feb, [facility] [id number] [address]65 15 Jan, 2010 [facility] [id number] [place] [address]- 5052 Mar, [facility] [id number], [place] [address]- 5278 15 Jan, 2009 [facility] [id number], [place] [address]- 4559 Oct, [facility] [address] [id number], [place] [address]- 9882 Apr, IMMUNIZATIONS No Known Immunizations SOCIAL HISTORY [...]
--- OUTSIDE RECORDS SUMMARY | 2018-03-22 21:55 | XMS REPORT ---
Author Author BRITANY BOSCH Organization [employer] Address Unknown Phone Unavailable Care Team Providers Care Title Closer Name Role Phone BRITANY BOSCH CP Unavailable [...] Problem Upper respiratory infection J06.9 Active Medications No Known Medications Results No Known Results Summary Purpose [employer] Submission
--- OUTSIDE RECORDS SUMMARY | 2018-03-22 21:56 | XMS REPORT ---
Author Author BRITANY BOSCH [facility] Address [address] [place] [address] Care Team Providers Care [place] Name Role Phone RENÉNas BRITANY Unavailable PROBLEMS Type Condition ICD9-CM Code CRR08-DN Code Onset Dates Condition Status SNOMED Code Problem Other chronic pain G89.29 Active 71962008 Problem Pain in left foot M79.672 Active 863608047465599 Problem Plantar wart of right foot B07.0 Active 81401677 Problem Obesity (BMI 30-39.9) E66.9 Active 342977395 Problem Heartburn R12 Active 74737331 Problem Rhinosinusitis J32.9 Active 28876718 Problem Other obesity due to excess calories E66.09 Active 033304020 Problem Pain in right foot M79.671 Active [id number] Problem Alternating constipation and diarrhea R19.8 Active 725879630 Problem Acute non-recurrent maxillary sinusitis J01.00 Active 60631572 Problem Essential hypertension I10 Active 71026257 Problem Bilateral low back pain without sciatica M54.5 Active 509530126 Problem Irritable bowel syndrome without diarrhea K58.9 Active 77568153 Problem Bilateral low back pain, with sciatica presence unspecified M54.5 Active 108426900 Problem High risk bisexual behavior Z72.53 Active 916433567 Problem Long-term use of high-risk medication Z79.899 Active 856297147 Problem Pre-diabetes R73.03 Active 316241848 Problem Impacted cerumen of right ear H61.21 Active 82456980 Problem Anxiety F41.9 Active 40414528 Problem Folliculitis L73.9 Active 23807341 ALLERGIES No Information ENCOUNTERS Encounter Location Date Diagnosis [facility] [address] [id number] [address] September, Pre-diabetes R73.03 [facility] [id number] [place] [address] 51543- 8647 Aug, [facility] [id number] [place] [address] 34830- 7233 Jul, Bilateral low back pain without sciatica M54.5 [facility] [id number] [place] [address] 83114- 6253 Jun, [facility] [address] 79904- 5437 Jun, [facility] [id number] [place] [address] 77945- 9149 Jun, [facility] [id number] [place] [address] 92181- 6619 May, [facility] [id number] [place] [address] 75418- 9496 May, Ingrown left greater toenail L60.0 [facility] [id number] [place] [address] 54795- 3918 May, [facility] [id number] [place] [address] 80235 -3356 May, Influenza A J10.1 ; Fever R50.9 and Body aches R52 [facility] [id number] [place] [address] 49146- 4472 Apr, [facility] [id number] [place] [address] 71881- 2978 Apr, [facility] [id number] [place] [address] 29408- 7295 Apr, [facility] [address] 08225- 7080 Apr, Abscess L02.91 and Obesity (BMI 30-39.9) E66.9 [facility] [id number] [place] [address] 93041- 7670 Apr, [facility] [id number] [place] [address] 11544- 9125 Apr, [facility] [address] 07211- 2482 Mar, Acute non-recurrent maxillary sinusitis J01.00 [facility] [id number] [place] [address] 92526- 8659 Feb, Heartburn R12 [facility] [address] 56693- 8078 Feb, Heartburn R12 ; Low back pain M54.5 ; Essential hypertension I10 ; Bilateral low back pain without sciatica M54.5 ; Anxiety F41.9 ; Pre-diabetes R73.03 ; Other obesity due to excess calories E66.09 ; Alternating constipation and diarrhea R19.8 ; Dyspepsia R10.13 ; Generalized abdominal pain R10.84 ; Rhinosinusitis J32.9 and Boil L02.92 [facility] [id number] [place] [address] 75397- 0192 Jan, Heartburn R12 [facility] [id number] [place] [address] 71221- 7876 Jan, [facility] [id number] [place] [address] 04576- 4492 Jan, [facility] [id number] [place] [address] 89760- 2866 Jan, Acute seasonal allergic rhinitis due to pollen J30.1 and Irritable bowel syndrome without diarrhea K58.9 [facility] [id number] [place] [address] 35499- 8970 Dec, Low back pain M54.5 and Acute cystitis with hematuria N30.01 [facility] [id number] [place] [address] 08080- 9111 Dec, Low back pain M54.5 and Acute cystitis with hematuria N30.01 [facility] [id number] [place] [address] 84847- 7189 Dec, Heartburn R12 ; Essential hypertension I10 ; Acute non- recurrent maxillary sinusitis J01.00 ; Bilateral low back pain without sciatica M54.5 ; Anxiety F41.9 ; Pre-diabetes R73.03 ; Pain in right foot M79.671 ; Pain in left foot M79.672 ; Other obesity due to excess calories E66.09 and Acute cystitis with hematuria N30.01 [place] [address] 65714- 1427 Dec, Bilateral low back pain without sciatica M54.5 ; Acute non- recurrent maxillary sinusitis J01.00 and Pre-diabetes R73.03 [place] [address] 81500- 8925 Oct, [facility] [address] 54717 -8693 Aug, [facility] [address] 76036 -9339 Aug, Acute vaginitis N76.0 ; Urinary frequency R35.0 ; Screen for STD (sexually transmitted disease) Z11.3 and Abscess L02.[address] 85839- 5014 Aug, Plantar wart of right foot B07.0 [facility] [address] 82193- 8581 Jul, Plantar wart of right foot B07.0 [place] [address] 07626- 1977 Jun, [address] 71053- 7619 Jun, Heartburn R12 ; Essential hypertension I10 ; Anxiety F41.9 ; Folliculitis L73.9 and Plantar wart of right foot B07.0 [facility] [id number] [place] [address] 3906 Jun, [facility] [address] 57166 -4745 May, Low back pain M54.5 and Other chronic pain G89.29 [place] [address] 77812- 6800 May, [place] [address] 32747- 2090 May, [place] [address] 45391- 9654 May, Heartburn R12 ; Bilateral low back pain without sciatica M54.5 ; Essential hypertension I10 ; Long-term use of high-risk medication Z79.899 ; Anxiety F41.9 ; Impacted cerumen of right ear H61.21 ; Folliculitis L73.9 ; High risk bisexual behavior Z72.53 and General medical exam Z00.00 [place] [place] [address] 08618- 6145 May, [place] [address] 79862- 1142 May, [place] [address] 69998- 0006 Mar, Acute nasopharyngitis J00 ; Acute intractable tension-type headache G44.201 and Cough R05 [facility] [id number] [place] [address] 68067- 2955 Jan, [facility] [address] 52551 -1149 Jan, Abscess L02.91 [facility] [place] [address] 90578 -1898 10 Jan, 2016 Urinary urgency R39.15 and Urinary tract infection without hematuria, site unspecified N39.0 [place] [address] [place] [address]- 7643 Jan, [facility] [id number] [place] [address] 45948- 4603 Jan, [facility] [id number] [place] [address] 89339- 1591 Dec, [facility] [id number] [place] [address] 52420- 3217 Dec, Dermatofibroma D23.9 [facility] [id number] [place] [address] 37785- 4935 September, [facility] [id number] [place] [address] 27294- 5749 Aug, [facility] [id number] [place] [address] 98359- 3344 Aug, Pain in left knee M25.562 ; Heartburn R12 ; Bilateral low back pain without sciatica M54.5 ; Essential hypertension I10 ; Ingrown left big toenail L60.0 ; Chronic pain G89.29 ; Irritable bowel syndrome with constipation K58.9 and Skin infection L08.9 [facility] [id number] [place] [address] 57032- 4833 Aug, [facility] [id number] [place] [address] 54069- 4092 Jul, [facility] [id number] [place] [address] 47221- 5312 Jun, [facility] [id number] [place] [address] 74035- 1599 Jun, [facility] [id number] [place] [address] 23114- 8831 Jun, [facility] [id number] [place] [address] 31273- 1810 Jun, [facility] [id number] [place] [address] 53164- 5933 Jun, Upper respiratory infection J06.9 ; Bilateral low back pain without sciatica M54.5 and Headache R51 [facility] [id number] [place] [address] 15425- 3925 May, [facility] [id number] [place] [address] 03268- 5050 Apr, Bilateral low back pain without sciatica M54.5 ; Upper respiratory infection J06.9 and Yeast dermatitis B37.2 [facility] [id number] [place] [address] 73012- 6593 Apr, [facility] [address] 77824- 1754 Apr, [facility] [id number] [place] [address] 98203- 8875 Feb, [facility] [id number] [place] [address] 14651- 4163 Feb, [facility] [id number] [place] [address] 28523- 1663 Feb, [facility] [id number] [place] [address] 31240- 2597 Feb, Essential hypertension I10 ; Heartburn R12 ; Irritable bowel syndrome without diarrhea K58.9 ; Bilateral low back pain, with sciatica presence unspecified M54.5 and Upper respiratory infection J06.9 [facility] [id number] [place] [address] 32472- 0573 Feb, [facility] [id number] [place] [address] 42274- 6706 Feb, Generalized anxiety disorder F41.1 and Grief F43.20 [facility] [id number] [place] [address] 09253- 5980 Jan, [facility] [id number] [place] [address] 85985- 9460 Jan, Back pain 724.5 ; Upper respiratory infection 465.9 ; HTN ( hypertension) 401.9 and Dyspepsia 536.8 [facility] [id number] [place] [address] 02972- 1242 Dec, [facility] [id number] [place] [address] 54162- 8581 Nov, Back pain 724.5 ; Abdominal pain, bilateral lower quadrant 789.03 ; GERD (gastroesophageal reflux disease) 530.81 ; Upper respiratory infection 465.9 ; Dysuria 788.1 and HTN (hypertension) 401.9 [facility] [id number] [place] [address] 89748- 1765 Nov, [facility] [id number] [place] [address] 73974- 5617 Nov, [place] [address] 98847- 7747 Nov, [facility] [id number] [place] [address] 13754- 5872 Nov, Cough 786.2 [place] [address] 32106- 6478 Nov, Cough 786.2 [place] [id number] [place] [address] 44967- 1342 Oct, Unspecified episodic mood disorder 296.90 and Anxiety disorder, unspecified 300.00 [facility] [place] [id number] [place] [address] 53659- 2463 Oct, Abdominal pain, left upper quadrant 789.02 ; Essential hypertension, benign 401.1 ; Irritable bowel syndrome 564.1 ; Abscess 682.9 ; Heartburn 787.1 ; Acute sinusitis, unspecified 461.9 ; Muscle spasm of back 724.8 ; Cough 786.2 and Skin tag 701.9 [facility] [place] [id number] [place] [address] 94635- 7425 September, [facility] [place] [facility] [address] [id number] [place] [address]- 8813 September, [facility] [place] [facility] [address] [id number] [place] [address]- 9523 September, [facility] [place] [facility] [address] [id number] [place] [address]- 8663 Aug, [facility] [place] [facility] [address] [id number] [place] [address]- 7140 Aug, [facility] [place] [facility] [address] [id number] [place] [address]- 5477 Jul, [facility] [place] [facility] [address] [id number] [place] [address]- 1397 Jul, [facility] [place] [facility] [address] [id number] [place] [address]- 9843 Jul, [facility] [place] [facility] [address] [id number] [place] [address]- 7673 Jul, [facility] [place] [facility] [address] [id number] [place] [address]- 8073 Jul, [facility] [place] [facility] [address] [id number] [place] [address]- 6429 Jul, [facility] [place] [facility] [address] [id number] [place] [address]- 4848 Jul, [facility] [place] [facility] [address] [id number] [place] [address]- 6322 Jul, [facility] [place] [facility] [address] [id number] [place] [address]- 5486 Jul, [facility] [place] [facility] [address] [id number] [place] [address]- 5771 Jul, [facility] [place] [facility] [address] [id number] [place] [address]- 8787 Jul, [facility] [place] [facility] [address] [id number] [place] [address]- 2546 Jul, [facility] [place] [facility] [address] [id number] [place] [address]- 2277 Jul, [facility] [place] [facility] [address] [id number] [place] [address]- 1239 Jul, 2014 [facility] [place] [facility] [address] [facility] [id number] [place] [address]- 1665 Jul, 2014 [facility] [place] [facility] [address] [id number] [place] [address]- 1719 Jul, 2014 [facility] [place] [facility] [address] [id number] [place] [address]- 0911 Jul, 2014 [facility] [place] [facility] [address] [facility] [id number] [place] [address]- 8836 Jun, 2014 [facility] [place] [facility] [address] [facility] [id number] [place] [address]- 1758 Jun, 2014 [facility] [place] [facility] [address] [facility] [id number] [place] [address]- 2905 Jun, 2014 [facility] [place] [facility] [address] [facility] [id number] [place] [address]- 5846 Jun, 2014 [facility] [place] [facility] [address] [facility] [id number] [place] [address]- 4117 Jun, 2014 [facility] [place] [facility] [address] [facility] [id number] [place] [address]- 5642 Jun, 2014 [facility] [place] [facility] [address] [facility] [id number] [place] [address]- 9039 Jun, 2014 [facility] [place] [facility] [address] [facility] [id number] [place] [address]- 2145 Jun, 2014 [facility] [place] [facility] [address] [facility] [id number] [place] [address]- 7165 Apr, [facility] [place] [facility] [address] [facility] [id number] [place] [address]- 9108 Apr, [facility] [place] [facility] [address] [id number] [place] [address]- 7923 Apr, [facility] [place] [facility] [address] [id number] [place] [address]- 9409 Apr, [facility] [place] [facility] [address] [id number] [place] [address]- 8094 Apr, [facility] [place] [facility] [address] [id number] [place] [address]- 6748 Apr, [facility] [place] [facility] [address] [id number] [place] [address]- 8262 Apr, [facility] [place] [facility] [address] [id number] [place] [address]- 6478 Apr, [facility] [place] [facility] [address] [id number] [place] [address]- 1670 Apr, [facility] [place] [facility] [address] [id number] [place] [address]- 7638 Apr, [facility] [place] [facility] [address] [id number] [place] [address]- 2138 Apr, [facility] [place] [facility] [address] [id number] [place] [address]- 4299 Apr, [facility] [place] [facility] [address] [id number] [place] [address]- 6640 Apr, [facility] [place] [facility] [address] [id number] [place] [address]- 2494 Apr, [facility] [place] [facility] [address] [id number] [place] [address]- 6929 Apr, [facility] [place] [facility] [address] [id number] [place] [address]- 2465 Feb, [facility] [place] [facility] [address] [id number] [place] [address]- 5246 13 Feb, 2014 [facility] [place] [facility] [address] [id number] [place] [address]- 2945 Feb, [facility] [place] [facility] [address] [id number] [place] [address]- 8382 Feb, [facility] [place] [facility] [address] [id number] [place] 7947 Feb, [facility] [place] [facility] [address] [id number] [place] [address]- 6760 Feb, [facility] [place] [facility] [address] [id number] [place] [address]- 5691 Jan, [facility] [place] [facility] [address] [id number] [place] [address]- 5237 Jan, [facility] [place] [facility] [address] [id number] [place] [address]- 9077 Jan, [facility] [place] [facility] [address] [id number] [place] [address]- 4377 Jan, [facility] [place] [facility] [address] [id number] [place] [address]- 7208 Jan, [facility] [place] [facility] [address] [id number] [place] [address]- 6861 Jan, [facility] [place] [facility] [address] [id number] [place] [address]- 5324 Dec, [facility] [place] [facility] [address] [id number] [place] [address]- 4445 Dec, [facility] [place] [facility] [address] [id number] [place] [address]- 7031 Dec, [facility] [place] [facility] [address] [id number] [place] [address]- 9356 Dec, [facility] [place] [facility] [address] [id number] [place] [address]- 9837 Nov, [facility] [place] [facility] [address] [id number] [place] [address]- 3755 Nov, [facility] [place] [facility] [address] [id number] [place] [address]- 5380 Nov, [facility] [place] [facility] [address] [id number] [place] [address]- 8782 Nov, [facility] [place] [facility] [address] [id number] [place] [address]- 6856 Nov, [facility] [place] [facility] [address] [id number] [place] [address]- 6363 Nov, [facility] [place] [facility] [address] [id number] [place] [address]- 1872 Nov, [facility] [place] [facility] [address] [id number] [place] [address]- 9523 Nov, [facility] [place] [facility] [address] [id number] [place] [address]- 7861 Oct, [facility] [place] [facility] [address] [id number] [place] [address]- 6464 Oct, [facility] [place] [facility] [address] [id number] [place] [address]- 1175 Oct, [facility] [place] [facility] [address] [id number] [place] [address]- 1881 Oct, [facility] [place] [facility] [address] [id number] [place] [address]- 2878 Oct, [facility] [place] [facility] [address] [id number] [place] [address]- 2548 Oct, [facility] [place] [facility] [address] [id number] [place] [address]- 7253 Oct, [facility] [place] [facility] [address] [id number] [place] [address]- 7702 Oct, [facility] [place] [facility] [address] [id number] [place] [address]- 0739 Oct, [facility] [place] [facility] [address] [id number] [place] [address]- 5941 Oct, [facility] [place] [facility] [address] [id number] [place] [address]- 5455 Oct, [facility] [place] [facility] [address] [id number] [place] [address]- 4547 Oct, [facility] [place] [facility] [address] [id number] [place] [address]- 9858 18 Oct, 2013 [facility] [place] [facility] [address] [id number] [place] [address]- 5302 18 Oct, 2013 [facility] [place] [facility] [address] [id number] [place] [address]- 8885 17 Oct, 2013 [facility] [place] [facility] [address] [id number] [place] [address]- 8305 17 Oct, 2013 [facility] [place] [facility] [address] [id number] [place] [address]- 9251 16 Oct, 2013 [facility] [place] [facility] [address] [id number] [place] [address]- 5750 16 Oct, 2013 [facility] [place] [facility] [address] [id number] [place] [address] Oct, [facility] [place] [facility] [address] [id number], [place] [address] Oct, [facility] [place] [facility] [address] [id number], [place] [address] Oct, [facility] [place] [facility] [address] [id number], [place] [address] Oct, [facility] [place] [facility] [address] [id number] [place] [address] Oct, [facility] [place] [facility] [address] [id number], [place] [address] Oct, [facility] [place] [facility] [address] [id number], [place] [address] 06 Oct, 2013 [facility] [place] [facility] [address] [id number], [place] [address] Oct, [facility] [place] [facility] [address] [id number] [place] [address] Oct, [facility] [place] [facility] [address] [id number] [place] [address] Oct, [facility] [place] [facility] [address] [id number] [place] [address] Oct, [facility] [place] [facility] [address] [id number] [place] [address] Oct, [facility] [place] [facility] [address] [id number] [place] [address] September, [facility] [place] [facility] [address] [id number] [place] [address] September, [facility] [place] [facility] [address] [id number] [place] [address] September, [facility] [place] [facility] [address] [id number] [place] [address]- [address] September, [facility] [place] [facility] [address] [id number] [place] [address] September, [facility] [place] [facility] [address] [id number] [place] [address] September, [facility] [place] [facility] [address] [id number] [place] [address] September, [facility] [place] [facility] [address] [id number] [place] [address] September, [facility] [place] [facility] [address] [id number] [place] [address]- [address] September, [facility] [place] [facility] [address] [id number] [place] [address] September, [facility] [place] [facility] [address] [id number] [place] [address] September, [facility] [place] [facility] [address] [id number] [place] [address]- [address] September, [facility] [place] [facility] [address] [id number] [place] [address]- [address] September, [facility] [place] [facility] [address] [id number] [place] [address] September, [facility] [place] [facility] [address] [id number] [place] [address]- [address] September, [facility] [place] [facility] [address] [id number] [place] [address] September, [facility] [place] [facility] [address] [id number] [place] [address]- [address] September, [facility] [place] [facility] [address] [id number] [place] [address] September, [facility] [place] [facility] [address] [id number] [place] [address] Aug, [facility] [place] [facility] [address] [id number] [place] [address] Aug, [facility] [place] [facility] [address] [id number] [place] [address]- [address] Aug, [facility] [place] [facility] [address] [id number] [place] [address] Aug, [facility] [place] [facility] [address] [id number] [place] [address] Aug, [facility] [place] [facility] [address] [id number] [place] [address] Aug, [facility] [place] [facility] [address] [id number] [place] [address] Jul, [facility] [place] [facility] [address] [id number] [place] [address] Jul, [facility] [place] [facility] [address] [id number] [place] [address] Jul, [facility] [place] [facility] [address] [id number] [place] [address] Jul, [facility] [place] [facility] [address] [id number] [place] [address] Jun, [facility] [place] [facility] [address] [id number] [place] [address] Jun, [facility] [place] [facility] [address] [id number] [place] [address] Jun, [facility] [place] [facility] [address] [id number] [place] [address] 8[address] Jun, [facility] [place] [facility] [address] [id number] [place] [address] Mar, [facility] [place] [facility] [address] [id number] [place] [address] 9763 Mar, [facility] [place] [facility] [address] [id number] [place] [address] 1703 Mar, [facility] [place] [facility] [address] [id number] [place] [address] 116[address] Mar, [facility] [place] [facility] [address] [id number] [place] [address] 1621 Feb, [facility] [place] [facility] [address] [id number] [place] [address] 8246 Feb, [facility] [place] [facility] [address] [id number] [place] [address] 9114 Feb, [facility] [place] [facility] [address] [id number] [place] [address] 98[address] Jan, [facility] [place] [facility] [address] [id number] [place] [address] 6066 20 Jan, 2013 [facility] [place] [facility] [address] [id number] [place] [address]- 9645 12 Jan, 2013 [facility] [place] [facility] [address] [id number] [place] [address] 59[address] Jan, [facility] [address] [id number] [place] [address] 88[address] Dec, [facility] [place] [facility] [address] [id number] [place] [address]- 4764 Dec, [facility] [address] [id number] [place] [address]- 1315 Dec, [facility] [place] [facility] [address] [id number] [place] [address] 8230 Dec, [facility] [address] [id number] [place] [address]- 5565 Nov, [facility] [place] [facility] [address] [id number] [place] [address] 8735 Nov, [facility] [address] [id number] [place] [address] 4800 Nov, [facility] [address] [id number] [place] [address] 8536 Nov, [facility] [place] [facility] [address] [id number] [place] [address] 8755 Nov, [facility] [address] [id number] [place] [address] 3394 Nov, [facility] [place] [facility] [address] [id number] [place] [address]- 5390 Oct, [facility] [place] [facility] [address] [id number] [place] [address] 0636 Oct, [facility] [place] [facility] [address] [id number] [place] [address] 2998 Oct, [facility] [place] [facility] [address] [id number] [place] [address] 3034 Oct, [facility] [place] [facility] [address] [id number] [place] [address] Oct, [facility] [address] [id number] [place] [address]- 1019 16 Oct, 2012 [facility] [place] [facility] [address] [id number] [place] [address]- 6258 14 Oct, 2012 [facility] [place] [facility] [address] [id number] [place] [address]- 4531 13 Oct, 2012 [facility] [place] [facility] [address] [id number] [place] [address]- 8030 Oct, [facility] [place] [facility] [address] [id number] [place] [address]- 1043 Oct, [facility] [place] [facility] [address] [id number] [place] [address]- 8688 September, [facility] [place] [facility] [address] [id number] [place] [address] 8970 September, [facility] [place] [facility] [address] [id number] [place] [address] 8254 September, [facility] [place] [facility] [address] [id number] [place] [address]- 0247 Aug, [facility] [place] [facility] [address] [id number] [place] [address] 4909 Aug, [facility] [place] [facility] [address] [id number] [place] [address]- 5712 Aug, [facility] [place] [facility] [address] [id number], [place] [address] 8595 Aug, [facility] [place] [facility] [address] [id number] [place] [address]- 6485 Jul, [facility] [place] [facility] [address] [id number] [place] [address]- 7885 Jul, [facility] [place] [facility] [address] [id number] [place] [address]- 9311 Jul, [facility] [place] [facility] [address] [id number], [place] [address] Jul, [facility] [address] [id number] [place] [address] 3717 Jul, [facility] [address] [id number] [place] [address] 0124 Jul, [facility] [address] [id number] [place] [address] 0364 May, [facility] [address] [id number] [place] [address]- 5714 May, [facility] [address] [id number] [place] [address]- 3138 May, [facility] [address] [id number] [place] [address] May, [facility] [address] [id number] [place] [address]- 4647 May, [facility] [address] [id number] [place] [address]- 3723 May, [facility] [address] [id number] [place] [address]- 7162 May, [facility] [address] [id number] [place] [address]- 4888 May, [facility] [address] [id number] [place] [address]- 9500 May, [facility] [address] [id number], [place] [address] 17 May, 2012 [facility] [address] [id number] [place] [address]- 9372 16 May, 2012 [facility] [address] [id number] [place] [address]- 6887 Apr, [facility] [address] [id number] [place] [address] 5439 Apr, [facility] [place] [facility] [address] [id number] [place] [address]- 1201 Apr, [facility] [place] [facility] [address] [id number] [place] [address]- 5139 Apr, [facility] [place] [facility] [address] [id number] [place] [address]- 2656 Apr, [facility] [place] [facility] [address] [id number] [place] [address]- 2397 Apr, [facility] [place] [facility] [address] [id number] [place] [address]- 2131 Mar, [facility] [place] [facility] [address] [id number] [place] [address]- 5683 Mar, [facility] [place] [facility] [address] [id number] [place] [address]- 2214 Mar, [facility] [place] [facility] [address] [id number] [place] [address]- 9467 Mar, [facility] [place] [facility] [address] [id number] [place] [address]- 5483 Mar, [facility] [place] [facility] [address] [id number] [place] [address]- 6562 Mar, [facility] [place] [facility] [address] [id number] [place] [address]- 2502 Mar, [facility] [place] [facility] [address] [id number] [place] [address]- 4569 Mar, [facility] [place] [facility] [address] [id number] [place] [address]- 8225 Feb, [facility] [place] [facility] [address] [id number] [place] [address]- 3196 23 Feb, 2012 [facility] [place] [facility] [address] [id number] [place] [address]- 6376 16 Feb, 2012 [facility] [place] [facility] [address] [id number] [place] [address]- 4635 15 Feb, 2012 [facility] [place] [facility] [address] [id number] [place] [address]- 9643 15 Feb, 2012 [facility] [place] [facility] [address] [id number] [place] [address]- 1328 13 Feb, 2012 [facility] [place] [facility] [address] [id number] [place] [address]- 4861 Feb, [facility] [place] [facility] [address] [id number] [place] [address]- 2463 Feb, [facility] [place] [facility] [address] [id number] [place] [address]- 9820 Feb, [facility] [place] [facility] [address] [id number] [place] [address]- 8189 Feb, [facility] [place] [facility] [address] [id number] [place] [address]- 2625 Feb, [facility] [place] [facility] [address] [id number], [place] [address]- 2300 Feb, [facility] [place] [facility] [address] [id number], [place] [address]- 8554 Feb, [facility] [place] [facility] [address] [id number], [place] [address]- 9282 Feb, [facility] [place] [facility] [address] [id number], [place] [address]- 4363 Feb, [facility] [place] [facility] [address] [id number], [place] [address]- 9485 Feb, [facility] [place] [facility] [address] [id number], [place] [address]- 4930 Feb, [facility] [place] [facility] [address] [id number], [place] [address]- 1720 Feb, [facility] [place] [facility] [address] [id number], [place] [address]- 4780 Jan, [facility] [place] [facility] [address] [id number] [place] [address]- 8238 13 Jan, 2012 [facility] [place] [facility] [address] [id number] [place] [address]- 8866 11 Jan, 2012 [facility] [place] [facility] [address] [id number] [place] [address] 2546 10 Jan, 2012 [facility] [place] [facility] [address] [id number] [place] [address] 2546 05 Jan, 2012 [facility] [place] [facility] [address] [id number] [place] [address] 2546 Dec, [facility] [place] [facility] [address] [id number] [place] [address]- 7641 Dec, [facility] [place] [facility] [address] [id number] [place] [address]- 6936 Dec, [facility] [place] [facility] [address] [id number] [place] [address]- 9027 Dec, [facility] [place] [facility] [address] [id number] [place] [address]- 1365 Dec, [facility] [place] [facility] [address] [id number] [place] [address]- 1656 Dec, [facility] [place] [facility] [address] [id number] [place] [address]- 7319 Nov, [facility] [place] [facility] [address] [id number] [place] [address]- 5566 Nov, [facility] [place] [facility] [address] [id number] [place] [address]- 2543 Nov, [facility] [place] [facility] [address] [id number] [place] [address]- 7117 Nov, [facility] [place] [facility] [address] [id number] [place] [address]- 2546 Nov, [facility] [place] [facility] [address] [id number] [place] [address]- 9927 Oct, [facility] [place] [facility] [address] [id number] [place] [address]- 1523 Oct, [facility] [place] [facility] [address] [id number] [place] [address]- 8272 Oct, [facility] [place] [facility] [address] [id number] [place] [address]- 9320 September, [facility] [place] [facility] [address] [id number] [place] [address]- 2169 September, [facility] [place] [facility] [address] [id number] [place] [address]- 9384 September, [facility] [place] [facility] [address] [id number] [place] [address]- 1116 September, [facility] [place] [facility] [address] [id number] [place] [address]- 9267 September, [facility] [place] [facility] [address] [id number] [place] [address]- 7927 September, [facility] [place] [facility] [address] [id number] [place] [address]- 0919 Aug, [facility] [place] [facility] [address] [id number] [place] [address]- 7421 Aug, [facility] [place] [facility] [address] [id number] [place] [address]- 8522 Aug, [facility] [place] [facility] [address] [id number] [place] [address]- 1359 Jun, [facility] [place] [facility] [address] [id number] [place] [address]- 4681 Jun, [facility] [place] [facility] [address] [id number] [place] [address]- 8050 Jun, [facility] [place] [facility] [address] [id number] [place] [address]- 8356 Jun, [facility] [place] [facility] [address] [id number], [place] [address]- 6917 May, [facility] [address] [id number] [place] [address]- 6434 May, [facility] [place] [facility] [address] [id number] [place] [address]- 2242 May, [facility] [address] [facility] [id number] [place] [address]- 1099 May, [facility] [address] [id number] [place] [address]- 0999 May, [facility] [address] [facility] [id number] [place] [address], [place] [address]- 1389 Apr, [facility] [place] [facility] [address] [id number] [place] [address]- 6223 Apr, [facility] [address] [facility] [id number] [place] [address]- 3328 Apr, [facility] [place] [facility] [address] [facility] [id number] [place] [address]- 7394 Apr, [facility] [address] [facility] [id number] [place] [address]- 0453 Apr, [facility] [address] [facility] [id number] [place] [address]- 1130 Apr, [facility] [address] [facility] [id number] [place] [address]- 4281 16 Apr, 2011 [facility] [place] [facility] [address] [id number], [place] [address]- 2211 Mar, [facility] [place] [facility] [address] [id number] [place] [address]- 3985 Mar, [facility] [place] [facility] [address] [facility] [id number] [place] [address]- 9891 15 Mar, 2011 [facility] [place] [facility] [address] [facility] [id number] [place] [address]- 2414 Feb, [facility] [place] [facility] [address] [id number] [place] [address]- 9487 Feb, [facility] [place] [facility] [address] [id number] [place] [address]- 7246 Feb, [facility] [place] [facility] [address] [id number] [place] [address] 2546 Feb, [facility] [place] [facility] [address] [id number] [place] [address] 2546 Feb, [facility] [place] [facility] [address] [id number] [place] [address] 2547 Feb, [facility] [place] [facility] [address] [id number] [place] [address]- 1166 Jan, [facility] [place] [facility] [address] [id number] [place] [address]- 2425 Jan, [facility] [place] [facility] [address] [id number] [place] [address]- 9174 September, [facility] [place] [facility] [address] [id number] [place] [address]- 4163 Jun, [facility] [place] [facility] [address] [id number] [place] [address]852 Apr, [facility] [place] [facility] [address] [id number] [place] [address] 2546 Apr, [facility] [place] [facility] [address] [id number] [place] [address] 2546 Apr, [facility] [place] [facility] [address] [id number] [place] [address] 2546 Apr, [facility] [place] [facility] [address] [id number] [place] [address] 2546 Apr, [facility] [place] [facility] [address] [id number] [place] [address] 2546 Mar, [facility] [place] [facility] [address] [id number] [place] [address] 0697 Mar, [facility] [address] [id number], [place] [address]- 7066 Mar, [facility] [id number], [place] [address]- 2546 Mar, [facility] [address] [id number], [place] [address] 2546 Feb, [facility] [id number] [place] [address]- 2546 15 Jan, 2010 [facility] [id number], [place] [address]- 5931 Mar, [facility] [id number], [place] [address]- 2406 Jan, [facility] [id number], [place] [address]- 7036 Oct, [facility] [id number], [place] [address]- 6136 Apr, IMMUNIZATIONS No Known Immunizations SOCIAL HISTORY Never Assessed REASON FOR VISIT refill request PLAN OF CARE VITAL SIGNS MEDICATIONS Medication Instructions Dosage Frequency Start Date End Date Duration Status Promethazine-Codeine 6.25-10 MG/5ML Orally every 6 hrs 5 ml as needed 6h Active RESULTS No Results PROCEDURES No Known [...]
--- OUTSIDE RECORDS SUMMARY | 2018-03-22 21:56 | XMS REPORT ---
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 Role Phone JEVON MCLEAN Unavailable PROBLEMS Type Condition ICD9-CM Code [id number] Code Onset Dates Condition Status SNOMED Code Problem Folliculitis L73.9 Active 50596251 Problem High risk bisexual behavior Z72.53 Active 487206748 Problem Anxiety F41.9 Active 83939288 Problem Acute non-recurrent maxillary sinusitis J01.00 Active 64953368 Problem Other obesity due to excess calories E66.09 Active 220770250 Problem Plantar wart of right foot B07.0 Active 32006569 Problem Other chronic pain G89.29 Active 24282557 Problem Pain in right foot M79.671 Active 42206758408003867 Problem Pain in left foot M79.672 Active 519755934787445 Problem Heartburn R12 Active 98586292 Problem Irritable bowel syndrome without diarrhea K58.9 Active 13921369 Problem Bilateral low back pain without sciatica M54.5 Active 793250765 Problem Pre-diabetes R73.03 Active 450660955 Problem Essential hypertension I10 Active 30530223 Problem Long-term use of high-risk medication Z79.899 Active 424331010 Problem Bilateral low back pain, with sciatica presence unspecified M54.5 Active 140968471 Problem Impacted cerumen of right ear H61.21 Active 48629661 ALLERGIES Substance Reaction Event Type Date Status Penicillin V Potassium anaphylaxis Drug Allergy May, Active surgical tape "tears skin off" Non Drug Allergy May, Active SOCIAL HISTORY No smoking Hx information available PLAN OF CARE Activity Details Follow Up prn Reason: VITAL SIGNS Height 66 in 2016-06-05 Weight 251.0 lbs 2016-06-05 Temperature 97.8 degrees Fahrenheit 2016-06-05 Heart Rate 80 bpm 2016-06-05 Respiratory Rate 20 2016-06-05 BMI 40.51 kg/m2 2016-06-05 Blood pressure systolic 124 mmHg 2016-06-05 Blood pressure diastolic 72 mmHg 2016-06-05 MEDICATIONS Medication Instructions Dosage Frequency Start Date End Date Duration Status MetFORMIN HCl ER 500 MG Orally Once a day 1 tablet with evening meal 24h May, 30 day(s) Active Lisinopril-Hydrochlorothiazide 10-12.5 MG Orally Once a day 1 tablet 24h 30 Active Ibuprofen 800 MG Orally Three times a day 1 tablet 8h 30 Active Flexeril 10 mg Orally 2 times a day s needed 1 tablet Active Omeprazole 20 MG Orally Once a day 1 capsule 24h 30 days Active HydrOXYzine HCl 25 MG Orally bid prn 1/2-1 tablet as needed May, 30 day(s) Active Bactrim DS 800-160 MG Orally Twice a day 1 tablet 12h May,May 10 day(s) Active RESULTS Name Result Date Reference Range UA LONG DIP (IN HOUSE) 2016-06-05 Lot # [id number] Exp date 2017 Clarity clear Color yellow Odor none GLU negative RANDALL negative KET negative SG >1.030 BLO negative pH 5.5 Protein negative URO 0.2 NIT negative TRAVIS trace Lot # [id number] Exp date 2017 06 PROCEDURES Procedure Date Ordered Related Diagnosis Body Site URINALYSIS, AUTO, W/O SCOPE Jun 05, 2016 Office Visit, Est Pt., Level 3 Jun 05, 2016 THER/PROPH/DIAG INJ, SC/IM Jun 05, 2016 DEPO MEDROL 80 MG/ML Jun 05, 2016 IMMUNIZATIONS Vaccine Route Administration Date Status DEPO MEDROL 80 MG/ML IM Intramuscular Jun 05, 2016 Administered
--- OUTSIDE RECORDS SUMMARY | 2018-03-22 21:57 | XMS REPORT ---
Author Author BRITANY BOSCH [facility] Address [address] [place] [address] Care Team Providers Care Research Director Name Role Phone RENÉNas BRITANY Unavailable PROBLEMS Type Condition ICD9-CM Code ILY81-RH Code Onset Dates Condition Status SNOMED Code Problem Other chronic pain G89.29 Active 82789121 Problem Pain in left foot M79.672 Active [id number] Problem Plantar wart of right foot B07.0 Active 81240213 Problem Obesity (BMI 30-39.9) E66.9 Active 859512100 Problem Heartburn R12 Active 12429431 Problem Rhinosinusitis J32.9 Active 43152595 Problem Other obesity due to excess calories E66.09 Active 412248511 Problem Pain in right foot M79.671 Active 19288020881320008 Problem Alternating constipation and diarrhea R19.8 Active 459456008 Problem Acute non-recurrent maxillary sinusitis J01.00 Active 33219796 Problem Essential hypertension I10 Active 94326543 Problem Bilateral low back pain without sciatica M54.5 Active 568133452 Problem Irritable bowel syndrome without diarrhea K58.9 Active 27663785 Problem Bilateral low back pain, with sciatica presence unspecified M54.5 Active 100604727 Problem High risk bisexual behavior Z72.53 Active 687399401 Problem Long-term use of high-risk medication Z79.899 Active 734859728 Problem Pre-diabetes R73.03 Active 306281720 Problem Impacted cerumen of right ear H61.21 Active 13923006 Problem Anxiety F41.9 Active 09602953 Problem Folliculitis L73.9 Active 53350324 ALLERGIES No Information ENCOUNTERS Encounter Location Date Diagnosis [facility] [id number] [address] September, Pre-diabetes R73.03 [facility] [id number] [place] [address] 48752- 1570 Aug, [facility] [id number] [place] [address] 84720- 6947 Jul, Bilateral low back pain without sciatica M54.5 [facility] [id number] [place] [address] 37148- 9933 Jun, [facility] [address] 55263- 6017 Jun, [facility] [id number] [place] [address] 72965- 4152 Jun, [facility] [id number] [place] [address] 97007- 5469 May, [facility] [id number] [place] [address] 82543- 8753 May, Ingrown left greater toenail L60.0 [facility] [id number] [place] [address] 95399- 7853 May, [facility] [id number] [place] [address] 89812 -9857 May, Influenza A J10.1 ; Fever R50.9 and Body aches R52 [facility] [id number] [place] [address] 69055- 1442 Apr, [facility] [id number] [place] [address] 63183- 3388 Apr, [facility] [id number] [place] [address] 57852- 3665 Apr, [facility] [address] 17992- 4237 Apr, Abscess L02.91 and Obesity (BMI 30-39.9) E66.9 [facility] [id number] [place] [address] 87332- 0897 Apr, [place] [place] [id number] [place] [address] 24203- 5437 Apr, [place] [address] 32954- 3413 Mar, Acute non-recurrent maxillary sinusitis J01.00 [facility] [id number] [place] [address] 05096- 5358 Feb, Heartburn R12 [place] [address] 52150- 2717 Feb, Heartburn R12 ; Low back pain M54.5 ; Essential hypertension I10 ; Bilateral low back pain without sciatica M54.5 ; Anxiety F41.9 ; Pre-diabetes R73.03 ; Other obesity due to excess calories E66.09 ; Alternating constipation and diarrhea R19.8 ; Dyspepsia R10.13 ; Generalized abdominal pain R10.84 ; Rhinosinusitis J32.9 and Boil L02.92 [facility] [id number] [place] [address] 33949- 5142 Jan, Heartburn R12 [facility] [id number] [place] [address] 91518- 5466 Jan, [facility] [id number] [place] [address] 61960- 7981 Jan, [facility] [id number] [place] [address] 85255- 4820 Jan, Acute seasonal allergic rhinitis due to pollen J30.1 and Irritable bowel syndrome without diarrhea K58.9 [facility] [id number] [place] [address] 02741- 8852 Dec, Low back pain M54.5 and Acute cystitis with hematuria N30.01 [facility] [id number] [place] [address] 47967- 0765 Dec, Low back pain M54.5 and Acute cystitis with hematuria N30.01 [facility] [id number] [place] [address] 56181- 9825 Dec, Heartburn R12 ; Essential hypertension I10 ; Acute non- recurrent maxillary sinusitis J01.00 ; Bilateral low back pain without sciatica M54.5 ; Anxiety F41.9 ; Pre-diabetes R73.03 ; Pain in right foot M79.671 ; Pain in left foot M79.672 ; Other obesity due to excess calories E66.09 and Acute cystitis with hematuria N30.01 [place] [address] 36755- 0205 Dec, Bilateral low back pain without sciatica M54.5 ; Acute non- recurrent maxillary sinusitis J01.00 and Pre-diabetes R73.03 [place] [address] 37979- 1127 Oct, [facility] [address] 26[address] -1146 Aug, [facility] [address] 54545 -5740 Aug, Acute vaginitis N76.0 ; Urinary frequency R35.0 ; Screen for STD (sexually transmitted disease) Z11.3 and Abscess L02.[address] 31468- 4760 Aug, Plantar wart of right foot B07.0 [place] [address] 94249- 0953 Jul, Plantar wart of right foot B07.0 [place] [address] 77699- 7245 Jun, [address] 06747- 6799 Jun, Heartburn R12 ; Essential hypertension I10 ; Anxiety F41.9 ; Folliculitis L73.9 and Plantar wart of right foot B07.0 [place] [id number] [place] [address]24 Jun, [facility] [address] 38327 -9051 May, Low back pain M54.5 and Other chronic pain G89.29 [place] [address] 06748- 2927 May, [place] [address] 59751- 6630 May, [place] [address] 65302- 7144 May, Heartburn R12 ; Bilateral low back pain without sciatica M54.5 ; Essential hypertension I10 ; Long-term use of high-risk medication Z79.899 ; Anxiety F41.9 ; Impacted cerumen of right ear H61.21 ; Folliculitis L73.9 ; High risk bisexual behavior Z72.53 and General medical exam Z00.00 [place] [address] 48158- 7408 May, [place] [address] 21501- 5963 May, [place] [address] 85400- 0737 Mar, Acute nasopharyngitis J00 ; Acute intractable tension-type headache G44.201 and Cough R05 [place] [id number] [place] [address] 34025- 0469 Jan, [facility] [address] 46359 -2055 Jan, Abscess L02.91 [facility] [place] [address] 75490 -2789 10 Jan, 2016 Urinary urgency R39.15 and Urinary tract infection without hematuria, site unspecified N39.0 [place] [address] [place] [address]- 6520 Jan, [facility] [id number] [place] [address] 71373- 4021 Jan, [facility] [id number] [place] [address] 42978- 8779 Dec, [facility] [id number] [place] [address] 85658- 5567 Dec, Dermatofibroma D23.9 [facility] [id number] [place] [address] 63022- 0184 September, [facility] [id number] [place] [address] 37450- 9350 Aug, [facility] [id number] [place] [address] 02041- 3833 Aug, Pain in left knee M25.562 ; Heartburn R12 ; Bilateral low back pain without sciatica M54.5 ; Essential hypertension I10 ; Ingrown left big toenail L60.0 ; Chronic pain G89.29 ; Irritable bowel syndrome with constipation K58.9 and Skin infection L08.9 [facility] [id number] [place] [address] 29423- 4788 Aug, [facility] [id number] [place] [address] 91885- 7103 Jul, [facility] [id number] [place] [address] 91903- 1443 Jun, [facility] [id number] [place] [address] 42335- 4621 Jun, [facility] [id number] [place] [address] 90779- 9352 Jun, [facility] [id number] [place] [address] 57272- 6518 Jun, [facility] [id number] [place] [address] 09208- 0146 Jun, Upper respiratory infection J06.9 ; Bilateral low back pain without sciatica M54.5 and Headache R51 [facility] [id number] [place] [address] 26962- 4316 May, [facility] [id number] [place] [address] 86338- 0462 Apr, Bilateral low back pain without sciatica M54.5 ; Upper respiratory infection J06.9 and Yeast dermatitis B37.2 [facility] [id number] [place] [address] 76674- 2613 Apr, [facility] [address] 70836- 1187 Apr, [facility] [id number] [place] [address] 99514- 7157 Feb, [facility] [id number] [place] [address] 86389- 2431 Feb, [facility] [id number] [place] [address] 20378- 7632 Feb, [facility] [id number] [place] [address] 17097- 5944 Feb, Essential hypertension I10 ; Heartburn R12 ; Irritable bowel syndrome without diarrhea K58.9 ; Bilateral low back pain, with sciatica presence unspecified M54.5 and Upper respiratory infection J06.9 [facility] [id number] [place] [address] 75126- 4004 Feb, [facility] [id number] [place] [address] 82084- 7899 Feb, Generalized anxiety disorder F41.1 and Grief F43.20 [facility] [id number] [place] [address] 35060- 6176 Jan, [facility] [id number] [place] [address] 12440- 4791 Jan, Back pain 724.5 ; Upper respiratory infection 465.9 ; HTN ( hypertension) 401.9 and Dyspepsia 536.8 [place] [id number] [place] [address] 96640- 9010 Dec, [facility] [id number] [place] [address] 80236- 5504 Nov, Back pain 724.5 ; Abdominal pain, bilateral lower quadrant 789.03 ; GERD (gastroesophageal reflux disease) 530.81 ; Upper respiratory infection 465.9 ; Dysuria 788.1 and HTN (hypertension) 401.9 [place] [id number] [place] [address] 60619- 5773 Nov, [place] [id number] [place] [address] 39098- 1673 Nov, [place] [address] 23194- 6371 Nov, [place] [id number] [place] [address] 24809- 6428 Nov, Cough 786.2 [place] [address] 65718- 4441 Nov, Cough 786.2 [place] [id number] [place] [address] 14527- 1907 Oct, Unspecified episodic mood disorder 296.90 and Anxiety disorder, unspecified 300.00 [place] [id number] [place] [address] 93252- 5908 Oct, Abdominal pain, left upper quadrant 789.02 ; Essential hypertension, benign 401.1 ; Irritable bowel syndrome 564.1 ; Abscess 682.9 ; Heartburn 787.1 ; Acute sinusitis, unspecified 461.9 ; Muscle spasm of back 724.8 ; Cough 786.2 and Skin tag 701.9 [place] [id number] [place] [address] 47531- 5955 September, [facility] [place] [facility] [address] [id number] [place] [address]- 5318 September, [facility] [place] [facility] [address] [id number] [place] [address]- 2606 September, [facility] [place] [facility] [address] [id number] [place] [address]- 7962 Aug, [facility] [place] [facility] [address] [id number] [place] [address]- 5105 Aug, [facility] [place] [facility] [address] [id number] [place] [address]- 2532 Jul, [facility] [place] [facility] [address] [id number] [place] [address]- 7588 Jul, [facility] [place] [facility] [address] [id number] [place] [address]- 8498 Jul, [facility] [place] [facility] [address] [id number] [place] [address]- 1476 Jul, [facility] [place] [facility] [address] [id number] [place] [address]- 6578 Jul, [facility] [place] [facility] [address] [id number] [place] [address]- 1301 Jul, [facility] [place] [facility] [address] [id number] [place] [address]- 7249 Jul, [facility] [place] [facility] [address] [id number] [place] [address]- 7440 Jul, [facility] [place] [facility] [address] [id number] [place] [address]- 3250 Jul, [facility] [place] [facility] [address] [id number] [place] [address]- 3478 Jul, [facility] [place] [facility] [address] [id number] [place] [address]- 1192 Jul, [facility] [place] [facility] [address] [id number] [place] [address]- 2546 Jul, [facility] [place] [facility] [address] [id number] [place] [address]- 5728 Jul, [facility] [place] [facility] [address] [id number] [place] [address]- 2098 Jul, 2014 [facility] [place] [facility] [address] [facility] [id number] [place] [address]- 6548 Jul, 2014 [facility] [place] [facility] [address] [id number] [place] [address]- 3284 Jul, 2014 [facility] [place] [facility] [address] [id number] [place] [address]- 6655 Jul, 2014 [facility] [place] [facility] [address] [facility] [id number] [place] [address]- 6724 Jun, 2014 [facility] [place] [facility] [address] [facility] [id number] [place] [address]- 0238 Jun, 2014 [facility] [place] [facility] [address] [facility] [id number] [place] [address]- 4467 Jun, 2014 [facility] [place] [facility] [address] [facility] [id number] [place] [address]- 8618 Jun, 2014 [facility] [place] [facility] [address] [facility] [id number] [place] [address]- 4078 Jun, 2014 [facility] [place] [facility] [address] [facility] [id number] [place] [address]- 8149 Jun, 2014 [facility] [place] [facility] [address] [facility] [id number] [place] [address]- 3998 Jun, 2014 [facility] [place] [facility] [address] [facility] [id number] [place] [address]- 3039 Jun, 2014 [facility] [place] [facility] [address] [facility] [id number] [place] [address]- 2707 Apr, [facility] [place] [facility] [address] [facility] [id number] [place] [address]- 9849 Apr, [facility] [place] [facility] [address] [id number] [place] [address]- 7802 Apr, [facility] [place] [facility] [address] [id number] [place] [address]- 2053 Apr, [facility] [place] [facility] [address] [id number] [place] [address]- 2751 Apr, [facility] [place] [facility] [address] [id number] [place] [address]- 2778 Apr, [facility] [place] [facility] [address] [id number] [place] [address]- 2169 Apr, [facility] [place] [facility] [address] [id number] [place] [address]- 6956 Apr, [facility] [place] [facility] [address] [id number] [place] [address]- 1663 Apr, [facility] [place] [facility] [address] [id number] [place] [address]- 1420 Apr, [facility] [place] [facility] [address] [id number] [place] [address]- 7685 Apr, [facility] [place] [facility] [address] [id number] [place] [address]- 7804 Apr, [facility] [place] [facility] [address] [id number] [place] [address]- 5018 Apr, [facility] [place] [facility] [address] [id number] [place] [address]- 9781 Apr, [facility] [place] [facility] [address] [id number] [place] [address]- 6943 Apr, [facility] [place] [facility] [address] [id number] [place] [address]- 4112 Feb, [facility] [place] [facility] [address] [id number] [place] [address]- 0621 13 Feb, 2014 [facility] [place] [facility] [address] [id number] [place] [address]- 5189 Feb, [facility] [place] [facility] [address] [id number] [place] [address]- 9885 Feb, [facility] [place] [facility] [address] [id number] [place] 2712 Feb, [facility] [place] [facility] [address] [id number] [place] [address]- 8843 Feb, [facility] [place] [facility] [address] [id number] [place] [address]- 8654 Jan, [facility] [place] [facility] [address] [id number] [place] [address]- 5115 Jan, [facility] [place] [facility] [address] [id number] [place] [address]- 2182 Jan, [facility] [place] [facility] [address] [id number] [place] [address]- 5517 Jan, [facility] [place] [facility] [address] [id number] [place] [address]- 8276 Jan, [facility] [place] [facility] [address] [id number] [place] [address]- 0326 Jan, [facility] [place] [facility] [address] [id number] [place] [address]- 4164 Dec, [facility] [place] [facility] [address] [id number] [place] [address]- 2686 Dec, [facility] [place] [facility] [address] [id number] [place] [address]- 2991 Dec, [facility] [place] [facility] [address] [id number] [place] [address]- 8015 Dec, [facility] [place] [facility] [address] [id number] [place] [address]- 8656 Nov, [facility] [place] [facility] [address] [id number] [place] [address]- 5719 Nov, [facility] [place] [facility] [address] [id number] [place] [address]- 6299 Nov, [facility] [place] [facility] [address] [id number] [place] [address]- 4444 Nov, [facility] [place] [facility] [address] [id number] [place] [address]- 5631 Nov, [facility] [place] [facility] [address] [id number] [place] [address]- 3578 Nov, [facility] [place] [facility] [address] [id number] [place] [address]- 1885 Nov, [facility] [place] [facility] [address] [id number] [place] [address]- 5430 Nov, [facility] [place] [facility] [address] [id number] [place] [address]- 2509 Oct, [facility] [place] [facility] [address] [id number] [place] [address]- 1938 Oct, [facility] [place] [facility] [address] [id number] [place] [address]- 0852 Oct, [facility] [place] [facility] [address] [id number] [place] [address]- 9470 Oct, [facility] [place] [facility] [address] [id number] [place] [address]- 3947 Oct, [facility] [place] [facility] [address] [id number] [place] [address]- 2540 Oct, [facility] [place] [facility] [address] [id number] [place] [address]- 6948 Oct, [facility] [place] [facility] [address] [id number] [place] [address]- 9387 Oct, [facility] [place] [facility] [address] [id number] [place] [address]- 7844 Oct, [facility] [place] [facility] [address] [id number] [place] [address]- 5816 Oct, [facility] [place] [facility] [address] [id number] [place] [address]- 9209 Oct, [facility] [place] [facility] [address] [id number] [place] [address]- 3557 Oct, [facility] [place] [facility] [address] [id number] [place] [address]- 7565 18 Oct, 2013 [facility] [place] [facility] [address] [id number] [place] [address]- 2792 18 Oct, 2013 [facility] [place] [facility] [address] [id number] [place] [address]- 8148 17 Oct, 2013 [facility] [place] [facility] [address] [id number] [place] [address]- 3306 17 Oct, 2013 [facility] [place] [facility] [address] [id number] [place] [address] 16 Oct, 2013 [facility] [place] [facility] [address] [id number] [place] [address] 16 Oct, 2013 [facility] [place] [facility] [address] [id number] [place] [address] Oct, [facility] [place] [facility] [address] [id number], [place] [address] Oct, [facility] [place] [facility] [address] [id number], [place] [address] Oct, [facility] [place] [facility] [address] [id number], [place] [address] Oct, [facility] [place] [facility] [address] [id number] [place] [address] Oct, [facility] [place] [facility] [address] [id number], [place] [address] Oct, [facility] [place] [facility] [address] [id number], [place] [address] 06 Oct, 2013 [facility] [place] [facility] [address] [id number], [place] [address] Oct, [facility] [place] [facility] [address] [id number] [place] [address] Oct, [facility] [place] [facility] [address] [id number] [place] [address]- 7780 Oct, [facility] [place] [facility] [address] [id number] [place] [address] 79[address] Oct, [facility] [place] [facility] [address] [id number] [place] [address] Oct, [facility] [place] [facility] [address] [id number] [place] [address]- [address]479 September, [facility] [place] [facility] [address] [id number] [place] [address]- [address]77 September, [facility] [place] [facility] [address] [id number] [place] [address]- 1005 September, [facility] [place] [facility] [address] [id number] [place] [address]- [address] September, [facility] [place] [facility] [address] [id number] [place] [address]- [address]773 September, [facility] [place] [facility] [address] [id number] [place] [address] 4068 September, [facility] [place] [facility] [address] [id number] [place] [address]- [address] September, [facility] [place] [facility] [address] [id number] [place] [address]- 1467 September, [facility] [place] [facility] [address] [id number] [place] [address]- [address]198 September, [facility] [place] [facility] [address] [id number] [place] [address] September, [facility] [place] [facility] [address] [id number] [place] [address]- 1995 September, [facility] [place] [facility] [address] [id number] [place] [address] 4965 September, [facility] [place] [facility] [address] [id number] [place] [address]- 0461 September, [facility] [place] [facility] [address] [id number] [place] [address]- 78[address] September, [facility] [place] [facility] [address] [id number] [place] [address]- 2844 September, [facility] [place] [facility] [address] [id number] [place] [address] 2596 September, [facility] [place] [facility] [address] [id number] [place] [address]- 1408 September, [facility] [place] [facility] [address] [id number] [place] [address]- [address] September, [facility] [place] [facility] [address] [id number] [place] [address] Aug, [facility] [place] [facility] [address] [id number] [place] [address]347 Aug, [facility] [place] [facility] [address] [id number] [place] [address]- 2765 Aug, [facility] [place] [facility] [address] [id number] [place] [address]- [address] Aug, [facility] [place] [facility] [address] [id number] [place] [address]- [address] Aug, [facility] [place] [facility] [address] [id number] [place] [address]- [address] Aug, [facility] [place] [facility] [address] [id number] [place] [address]- [address] Jul, [facility] [place] [facility] [address] [id number] [place] [address] 2004 Jul, [facility] [place] [facility] [address] [address] [id number] [place] [address] Jul, [facility] [place] [facility] [address] [id number] [place] [address] Jul, [facility] [place] [facility] [address] [id number] [place] [address] Jun, [facility] [place] [facility] [address] [id number] [place] [address] 9830 Jun, [facility] [place] [facility] [address] [id number] [place] [address] 7940 Jun, [facility] [place] [facility] [address] [id number] [place] [address]- 6568 Jun, [facility] [place] [facility] [address] [id number] [place] [address] Mar, [facility] [place] [facility] [address] [id number] [place] [address] Mar, [facility] [place] [facility] [address] [id number] [place] [address]- 8032 Mar, [facility] [place] [facility] [address] [id number] [place] [address]861 Mar, [facility] [place] [facility] [address] [id number] [place] [address]- 5229 Feb, [facility] [place] [facility] [address] [id number] [place] [address]- 6548 Feb, [facility] [place] [facility] [address] [id number] [place] [address]- 7056 Feb, [facility] [place] [facility] [address] [id number] [place] [address]- 67[address] Jan, [facility] [place] [facility] [address] [id number] [place] [address]- 4[address] 20 Jan, 2013 [facility] [place] [facility] [address] [id number] [place] [address]- 5980 12 Jan, 2013 [facility] [place] [facility] [address] [id number] [place] [address]- 1065 Jan, [facility] [address] [id number] [place] [address]- 1428 Dec, [facility] [place] [facility] [address] [id number] [place] [address]- 8881 Dec, [facility] [address] [id number] [place] [address]- 5324 Dec, [facility] [place] [facility] [address] [id number] [place] [address]- 4322 Dec, [facility] [address] [id number] [place] [address]- 3048 Nov, [facility] [place] [facility] [address] [id number] [place] [address]- 8475 Nov, [facility] [address] [id number] [place] [address]- 1408 Nov, [facility] [address] [id number] [place] [address]- 0768 Nov, [facility] [place] [facility] [address] [id number] [place] [address]- 0887 Nov, [facility] [address] [id number] [place] [address]- 5993 Nov, [facility] [place] [facility] [address] [id number] [place] [address]- 7606 Oct, [facility] [place] [facility] [address] [id number] [place] [address]- 7170 Oct, [facility] [place] [facility] [address] [id number] [place] [address]- 0779 Oct, [facility] [place] [facility] [address] [id number] [place] [address]- 5806 Oct, [facility] [place] [facility] [address] [id number] [place] [address] Oct, [facility] [address] [id number] [place] [address]- 0327 16 Oct, 2012 [facility] [place] [facility] [address] [id number] [place] [address]- 5427 14 Oct, 2012 [facility] [place] [facility] [address] [id number] [place] [address]- 3966 13 Oct, 2012 [facility] [place] [facility] [address] [id number] [place] [address]- 4963 Oct, [facility] [place] [facility] [address] [id number] [place] [address]- 4588 Oct, [facility] [place] [facility] [address] [id number] [place] [address]- 1338 September, [facility] [place] [facility] [address] [id number] [place] [address]- 2703 September, [facility] [place] [facility] [address] [id number] [place] [address]- 3863 September, [facility] [place] [facility] [address] [id number] [place] [address]- 8165 Aug, [facility] [place] [facility] [address] [id number] [place] [address]- 5552 Aug, [facility] [place] [facility] [address] [id number] [place] [address]- 1635 Aug, [facility] [place] [facility] [address] [id number] [address]- 7134 Aug, [facility] [place] [facility] [address] [id number] [place] [address]- 4815 Jul, [facility] [place] [facility] [address] [id number] [place] [address]- 8403 Jul, [facility] [place] [facility] [address] [id number] [place] [address]- 7883 Jul, [facility] [place] [facility] [address] [id number], [place] [address]- 16[address] Jul, [facility] [address] [id number] [place] [address]- 0100 Jul, [facility] [address] [id number] [place] [address]- 7635 Jul, [facility] [address] [id number] [place] [address]- 3782 May, [facility] [address] [id number] [place] [address]- 8066 May, [facility] [address] [id number] [place] [address]- 0395 May, [facility] [address] [id number] [place] [address]- 0841 May, [facility] [address] [id number] [place] [address]- 9998 May, [facility] [address] [id number] [place] [address]- 4877 May, [facility] [address] [id number] [place] [address]- 5214 May, [facility] [address] [id number] [place] [address]- 4223 May, [facility] [address] [id number] [place] [address]- 9663 May, [facility] [address] [id number], [place] [address]- 6945 17 May, 2012 [facility] [address] [id number] [place] [address]- 5759 16 May, 2012 [facility] [address] [id number] [place] [address]- 3750 Apr, [facility] [address] [id number] [place] [address]- 6473 Apr, [facility] [place] [facility] [address] [id number] [place] [address]- 6014 Apr, [facility] [place] [facility] [address] [id number] [place] [address]- 2018 Apr, [facility] [place] [facility] [address] [id number] [place] [address]- 2196 Apr, [facility] [place] [facility] [address] [id number] [place] [address]- 0388 Apr, [facility] [place] [facility] [address] [id number] [place] [address]- 5801 Mar, [facility] [place] [facility] [address] [id number] [place] [address]- 5477 Mar, [facility] [place] [facility] [address] [id number] [place] [address]- 0374 Mar, [facility] [place] [facility] [address] [id number] [place] [address]- 8170 Mar, [facility] [place] [facility] [address] [id number] [place] [address]- 6013 Mar, [facility] [place] [facility] [address] [id number] [place] [address]- 6687 Mar, [facility] [place] [facility] [address] [id number] [place] [address]- 4304 Mar, [facility] [place] [facility] [address] [id number] [place] [address]- 4423 Mar, [facility] [place] [facility] [address] [id number] [place] [address]- 1191 Feb, [facility] [place] [facility] [address] [id number] [place] [address]- 4046 23 Feb, 2012 [facility] [place] [facility] [address] [id number] [place] [address]- 3826 16 Feb, 2012 [facility] [place] [facility] [address] [id number] [place] [address]- 4958 15 Feb, 2012 [facility] [place] [facility] [address] [id number] [place] [address]- 0452 15 Feb, 2012 [facility] [place] [facility] [address] [id number] [place] [address]- 5251 13 Feb, 2012 [facility] [place] [facility] [address] [id number] [place] [address]- 9810 Feb, [facility] [place] [facility] [address] [id number] [place] [address]- 8927 Feb, [facility] [place] [facility] [address] [id number] [place] [address]- 3047 Feb, [facility] [place] [facility] [address] [id number] [place] [address]- 7305 Feb, [facility] [place] [facility] [address] [id number] [place] [address]- 9816 Feb, [facility] [place] [facility] [address] [id number], [place] [address]- 2776 Feb, [facility] [place] [facility] [address] [id number], [place] [address]- 1059 Feb, [facility] [place] [facility] [address] [id number], [place] [address]- 4052 Feb, [facility] [place] [facility] [address] [id number], [place] [address]- 0441 Feb, [facility] [place] [facility] [address] [id number], [place] [address]- 7224 Feb, [facility] [place] [facility] [address] [id number], [place] [address]- 8569 Feb, [facility] [place] [facility] [address] [id number], [place] [address]- 3392 Feb, [facility] [place] [facility] [address] [id number], [place] [address]- 7019 Jan, [facility] [place] [facility] [address] [id number] [place] [address]- 3551 13 Jan, 2012 [facility] [place] [facility] [address] [id number] [place] [address]- 0176 11 Jan, 2012 [facility] [place] [facility] [address] [id number] [place] [address] 2546 10 Jan, 2012 [facility] [place] [facility] [address] [id number] [place] [address] 2546 05 Jan, 2012 [facility] [place] [facility] [address] [id number] [place] [address] 2546 Dec, [facility] [place] [facility] [address] [id number] [place] [address]- 6538 Dec, [facility] [place] [facility] [address] [id number] [place] [address]- 5566 Dec, [facility] [place] [facility] [address] [id number] [place] [address]- 9389 Dec, [facility] [place] [facility] [address] [id number] [place] [address]- 9362 Dec, [facility] [place] [facility] [address] [id number] [place] [address]- 9191 Dec, [facility] [place] [facility] [address] [id number] [place] [address]- 5081 Nov, [facility] [place] [facility] [address] [id number] [place] [address]- 5546 Nov, [facility] [place] [facility] [address] [id number] [place] [address]- 2540 Nov, [facility] [place] [facility] [address] [id number] [place] [address]- 6727 Nov, [facility] [place] [facility] [address] [id number] [place] [address]- 2546 Nov, [facility] [place] [facility] [address] [id number] [place] [address]- 2730 Oct, [facility] [place] [facility] [address] [id number] [place] [address]- 9691 Oct, [facility] [place] [facility] [address] [id number] [place] [address]- 4295 Oct, [facility] [place] [facility] [address] [id number] [place] [address]- 1454 September, [facility] [place] [facility] [address] [id number] [place] [address]- 7748 September, [facility] [place] [facility] [address] [id number] [place] [address]- 3145 September, [facility] [place] [facility] [address] [id number] [place] [address]- 8409 September, [facility] [place] [facility] [address] [id number] [place] [address]- 9926 September, [facility] [place] [facility] [address] [id number] [place] [address]- 8140 September, [facility] [place] [facility] [address] [id number] [place] [address]- 6479 Aug, [facility] [place] [facility] [address] [id number] [place] [address]- 3552 Aug, [facility] [place] [facility] [address] [id number] [place] [address]- 1981 Aug, [facility] [place] [facility] [address] [id number] [place] [address]- 0591 Jun, [facility] [place] [facility] [address] [id number] [place] [address]- 7352 Jun, [facility] [place] [facility] [address] [id number] [place] [address]- 3721 Jun, [facility] [place] [facility] [address] [id number] [place] [address]- 8888 Jun, [facility] [place] [facility] [address] [id number], [place] [address]- 9234 May, [facility] [address] [id number] [place] [address]- 7993 May, [facility] [place] [facility] [address] [id number] [place] [address]- 6822 May, [facility] [address] [facility] [id number] [place] [address]- 6685 May, [facility] [address] [id number] [place] [address]- 2843 May, [facility] [address] [facility] [id number] [place] [address], [place] [address]- 7639 Apr, [facility] [place] [facility] [address] [id number] [place] [address]- 6431 Apr, [facility] [address] [facility] [id number] [place] [address]- 4708 Apr, [facility] [place] [facility] [address] [facility] [id number] [place] [address]- 3751 Apr, [facility] [address] [facility] [id number] [place] [address]- 2707 Apr, [facility] [address] [facility] [id number] [place] [address]- 9386 Apr, [facility] [address] [facility] [id number] [place] [address]- 7080 16 Apr, 2011 [facility] [place] [facility] [address] [id number], [place] [address]- 4496 Mar, [facility] [place] [facility] [address] [id number] [place] [address]- 6332 Mar, [facility] [place] [facility] [address] [facility] [id number] [place] [address]- 1545 15 Mar, 2011 [facility] [place] [facility] [address] [facility] [id number] [place] [address]- 6211 Feb, [facility] [place] [facility] [address] [id number] [place] [address]- 8392 Feb, [facility] [place] [facility] [address] [id number] [place] [address]- 6846 Feb, [facility] [place] [facility] [address] [id number] [place] [address] 2546 Feb, [facility] [place] [facility] [address] [id number] [place] [address] 2546 Feb, [facility] [place] [facility] [address] [id number] [place] [address] 2544 Feb, [facility] [place] [facility] [address] [id number] [place] [address]- 4436 Jan, [facility] [place] [facility] [address] [id number] [place] [address]- 3097 Jan, [facility] [place] [facility] [address] [id number] [place] [address]- 3759 September, [facility] [place] [facility] [address] [id number] [place] [address]- 7887 Jun, [facility] [place] [facility] [address] [id number] [place]85 Apr, [facility] [place] [facility] [address] [id number] [place] [address] 2546 Apr, [facility] [place] [facility] [address] [id number] [place] [address] 2546 Apr, [facility] [place] [facility] [address] [id number] [place] [address] 2546 Apr, [facility] [place] [facility] [address] [id number] [place] [address] 2546 Apr, [facility] [place] [facility] [address] [id number] [place] [address] 2546 Mar, [facility] [place] [facility] [address] [id number] [place] [address]- 7931 Mar, [facility] [address] [id number] [address]- 8580 Mar, [facility] [id number], [place] [address]- 3116 Mar, [facility] [id number], [place] [address]- 4652 Feb, [facility] [id number] [place] [address]- 1216 15 Jan, 2010 [facility] [id number], [place] [address]- 9165 Mar, [facility] [id number], [place] [address]- 9757 Jan, [facility] [id number], [place] [address]- 7659 Oct, [facility] [id number], [place] [address]- 3336 Apr, IMMUNIZATIONS No Known Immunizations SOCIAL HISTORY [...]
--- OUTSIDE RECORDS SUMMARY | 2018-03-22 21:58 | XMS REPORT ---
Author Author BRITANY BOSCH Organization [facility] Address [address] [place] [address] Care Team Providers Care Consulting Nurse Name Role Phone DANITZA BRITANY Unavailable PROBLEMS Type Condition ICD9-CM Code AVE50-ZB Code Onset Dates Condition Status SNOMED Code Problem Other chronic pain G89.29 Active 33384284 Problem Pain in left foot M79.672 Active [id number] Problem Plantar wart of right foot B07.0 Active 99628151 Problem Obesity (BMI 30-39.9) E66.9 Active 885261574 Problem Heartburn R12 Active 88866677 Problem Rhinosinusitis J32.9 Active 35144105 Problem Other obesity due to excess calories E66.09 Active 448156053 Problem Pain in right foot M79.671 Active [id number] Problem Alternating constipation and diarrhea R19.8 Active 420551147 Problem Acute non-recurrent maxillary sinusitis J01.00 Active 04068798 Problem Essential hypertension I10 Active 50723422 Problem Bilateral low back pain without sciatica M54.5 Active 638889942 Problem Irritable bowel syndrome without diarrhea K58.9 Active 64260282 Problem Bilateral low back pain, with sciatica presence unspecified M54.5 Active 044906350 Problem High risk bisexual behavior Z72.53 Active 092677809 Problem Long-term use of high-risk medication Z79.899 Active 121600668 Problem Pre-diabetes R73.03 Active 244697190 Problem Impacted cerumen of right ear H61.21 Active 95435608 Problem Anxiety F41.9 Active 75851699 Problem Folliculitis L73.9 Active 35345628 ALLERGIES Substance Reaction Event Type Date Status Penicillin V Potassium anaphylaxis Drug Allergy Dec, Active surgical tape "tears skin off" Non Drug Allergy Dec, Active ENCOUNTERS Encounter Location Date Diagnosis [facility] [address] [facility] [id number] [place] [address] 96867- 7075 Aug, [facility] [address] [place] [id number] [place] [address] 29748- 2994 Jul, Bilateral low back pain without sciatica M54.5 [facility] [address] [place] [place] [id number] [place] [address] 00066- 9446 Jun, [facility] [address] [id number] [place] [address] 42975- 2496 Jun, [facility] [address] [id number] [place] [address] 80489- 8663 Jun, [facility] [address] 09426- 1072 May, [facility] [address] [id number] [place] [address] 58340- 0256 May, Ingrown left greater toenail L60.0 [facility] [id number] [place] [address] 40843- 4309 May, [facility] [id number] [place] [address] 43637 -9506 May, Influenza A J10.1 ; Fever R50.9 and Body aches R52 [facility] [id number] [place] [address] 26117- 5037 Apr, [facility] [id number] [place] [address] 58007- 5884 Apr, [facility] [id number] [place] [address] 18699- 4923 Apr, [facility] [id number] [place] [address] 70904- 4562 Apr, Abscess L02.91 and Obesity (BMI 30-39.9) E66.9 [facility] [id number] [place] [address] 33138- 0373 Apr, [facility] [id number] [place] [address] 59048- 5474 Apr, [place] [address] 85977- 5392 Mar, Acute non-recurrent maxillary sinusitis J01.00 [place] [address] 71041- 1670 Feb, Heartburn R12 [place] [address] 70586- 0218 Feb, Heartburn R12 ; Low back pain M54.5 ; Essential hypertension I10 ; Bilateral low back pain without sciatica M54.5 ; Anxiety F41.9 ; Pre-diabetes R73.03 ; Other obesity due to excess calories E66.09 ; Alternating constipation and diarrhea R19.8 ; Dyspepsia R10.13 ; Generalized abdominal pain R10.84 ; Rhinosinusitis J32.9 and Boil L02.92 [place] [address] 50131- 3012 Jan, Heartburn R12 [place] [address] [place] [id number] [place] [address] 85909- 0492 Jan, [place] [address] 96126- 7376 Jan, [place] [address] [place] [id number] [place] [address] 63749- 6016 Jan, Acute seasonal allergic rhinitis due to pollen J30.1 and Irritable bowel syndrome without diarrhea K58.9 [place] [address] [place] [id number] [place] [address] 26949- 5507 Dec, Low back pain M54.5 and Acute cystitis with hematuria N30.01 [place] [address] [place] [id number] [place] [address] 69206- 6637 Dec, Low back pain M54.5 and Acute cystitis with hematuria N30.01 [place] [address] 75479- 8361 Dec, Heartburn R12 ; Essential hypertension I10 ; Acute non- recurrent maxillary sinusitis J01.00 ; Bilateral low back pain without sciatica M54.5 ; Anxiety F41.9 ; Pre-diabetes R73.03 ; Pain in right foot M79.671 ; Pain in left foot M79.672 ; Other obesity due to excess calories E66.09 and Acute cystitis with hematuria N30.01 [place] [address] 07303- 9209 Dec, Bilateral low back pain without sciatica M54.5 ; Acute non- recurrent maxillary sinusitis J01.00 and Pre-diabetes R73.03 [place] [address] 26143- 7396 Oct, [facility] [address] 31660 -6083 Aug, [facility] [place] [address] 80750 -8105 Aug, Acute vaginitis N76.0 ; Urinary frequency R35.0 ; Screen for STD (sexually transmitted disease) Z11.3 and Abscess L02.91 [place] [address] 47078- 7425 Aug, Plantar wart of right foot B07.0 [place] [address] 94753- 3164 Jul, Plantar wart of right foot B07.0 [place] [address] 09536- 8401 Jun, [place] [address] 99314- 2720 Jun, Heartburn R12 ; Essential hypertension I10 ; Anxiety F41.9 ; Folliculitis L73.9 and Plantar wart of right foot B07.0 [place] [address] 51400- 4662 Jun, [facility] [id number] [place] [address] 82302 -9208 May, Low back pain M54.5 and Other chronic pain G89.29 [place] [address] 80553- 4338 May, [place] [address] 00228- 1052 May, [place] [address] 51433- 1703 May, Heartburn R12 ; Bilateral low back pain without sciatica M54.5 ; Essential hypertension I10 ; Long-term use of high-risk medication Z79.899 ; Anxiety F41.9 ; Impacted cerumen of right ear H61.21 ; Folliculitis L73.9 ; High risk bisexual behavior Z72.53 and General medical exam Z00.00 [place] [address] 37521- 1556 May, [place] [address] 33992- 8308 May, [place] [address] 40626- 0612 Mar, Acute nasopharyngitis J00 ; Acute intractable tension-type headache G44.201 and Cough R05 [place] [address] [place] [id number] [place] [address] 90479- 7610 Jan, [facility] [address] [id number] [place] [address] 63156 -9565 Jan, Abscess L02.91 [facility] [place] [address] 85348 -6647 Jan, Urinary urgency R39.15 and Urinary tract infection without hematuria, site unspecified N39.0 [place] [address] 74169- 4096 Jan, [facility] [id number] [place] [address] 18288- 4229 Jan, [facility] [id number] [place] [address] 77487- 7974 Dec, [facility] [id number] [place] [address] 26200- 2121 Dec, Dermatofibroma D23.9 [facility] [id number] [place] [address] 11305- 9118 September, [facility] [id number] [place] [address] 45981- 8202 Aug, [facility] [id number] [place] [address] 22291- 9172 Aug, Pain in left knee M25.562 ; Heartburn R12 ; Bilateral low back pain without sciatica M54.5 ; Essential hypertension I10 ; Ingrown left big toenail L60.0 ; Chronic pain G89.29 ; Irritable bowel syndrome with constipation K58.9 and Skin infection L08.9 [facility] [id number] [place] [address] 04497- 3189 Aug, [facility] [id number] [place] [address] 60223- 9025 Jul, [facility] [id number] [place] [address] 58456- 4214 Jun, [facility] [id number] [place] [address] 42444- 6000 Jun, [facility] [id number] [place] [address] 96503- 1773 Jun, [facility] [id number] [place] [address] 85120- 2743 Jun, [facility] [id number] [place] [address] 20745- 0988 Jun, Upper respiratory infection J06.9 ; Bilateral low back pain without sciatica M54.5 and Headache R51 [facility] [address] [place] [id number] [place] [address] 69357- 1540 May, [facility] [id number] [place] [address] 66305- 0046 Apr, Bilateral low back pain without sciatica M54.5 ; Upper respiratory infection J06.9 and Yeast dermatitis B37.2 [facility] [address] [place] [id number] [place] [address] 84359- 5395 Apr, [facility] [address] 39357- 6878 Apr, [facility] [address] [place] [id number] [place] [address] 33785- 0816 Feb, [facility] [address] 44190- 2241 Feb, [facility] [address] [place] [id number] [place] [address] 88376- 9452 Feb, [facility] [address] [place] [id number] [place] [address] 44480- 3257 Feb, Essential hypertension I10 ; Heartburn R12 ; Irritable bowel syndrome without diarrhea K58.9 ; Bilateral low back pain, with sciatica presence unspecified M54.5 and Upper respiratory infection J06.9 [facility] [address] [place] [id number] [place] [address] 38004- 2573 Feb, [facility] [address] [place] [id number] [place] [address] 65541- 2825 Feb, Generalized anxiety disorder F41.1 and Grief F43.20 [facility] [address] [place] [id number] [place] [address] 91846- 2082 Jan, [facility] [address] [place] [id number] [place] [address] 92235- 6682 Jan, Back pain 724.5 ; Upper respiratory infection 465.9 ; HTN ( hypertension) 401.9 and Dyspepsia 536.8 [place] [id number] [place] [address] 84922- 4295 Dec, [facility] [address] [place] [id number] [place] [address] 17058- 9738 Nov, Back pain 724.5 ; Abdominal pain, bilateral lower quadrant 789.03 ; GERD (gastroesophageal reflux disease) 530.81 ; Upper respiratory infection 465.9 ; Dysuria 788.1 and HTN (hypertension) 401.9 [facility] [address] [place] [id number] [place] [address] 83102- 5241 Nov, [place] [address] [place] [id number] [place] [address] 93395- 2388 Nov, [place] [address] [place] [id number] [place] [address] 21979- 4929 Nov, [place] [address] [place] [id number] [place] [address] 08426- 4869 Nov, Cough 786.2 [place] [address] [place] [id number] [place] [address] 12893- 5225 Nov, Cough 786.2 [place] [id number] [place] [address] 67777- 0951 Oct, Unspecified episodic mood disorder 296.90 and Anxiety disorder, unspecified 300.00 [place] [address] [place] [id number] [place] [address] 49656- 1376 Oct, Abdominal pain, left upper quadrant 789.02 ; Essential hypertension, benign 401.1 ; Irritable bowel syndrome 564.1 ; Abscess 682.9 ; Heartburn 787.1 ; Acute sinusitis, unspecified 461.9 ; Muscle spasm of back 724.8 ; Cough 786.2 and Skin tag 701.9 [place] [id number] [place] [address] 41089- 0226 September, [place] [address] [place] [id number] [place] [address]- 0173 September, [facility] [address] [id number] [place] [address]- 0162 September, [facility] [place] [facility] [address] [id number] [place] [address]- 4961 Aug, [facility] [address] [id number] [place] [address]- 1650 Aug, [facility] [place] [facility] [address] [id number] [place] [address]- 8653 30 Jul, 2014 [facility] [place] [facility] [address] [id number] [place] [address]- 9990 30 Jul, 2014 [facility] [place] [facility] [address] [id number] [place] [address]- 8213 Jul, [facility] [place] [facility] [address] [id number] [place] [address]- 1473 Jul, [facility] [place] [facility] [address] [id number] [place] [address]- 6219 Jul, [facility] [place] [facility] [address] [id number] [place] [address]- 6360 Jul, [facility] [address] [id number] [place] [address]- 9011 Jul, [facility] [place] [facility] [address] [id number] [place] [address]- 4027 Jul, [facility] [place] [facility] [address] [id number] [place] [address]- 5954 Jul, [facility] [place] [facility] [address] [id number] [place] [address]- 3859 Jul, [facility] [place] [facility] [address] [id number] [place] [address]- 0035 Jul, [facility] [place] [facility] [address] [id number] [place] [address]- 2123 Jul, [facility] [place] [facility] [address] [id number] [place] [address]- 2214 Jul, [facility] [place] [facility] [address] [id number] [place] [address]- 5945 Jul, [facility] [place] [facility] [address] [id number] [place] [address]- 8256 Jul, [facility] [place] [facility] [address] [id number] [place] [address]- 3458 Jul, [facility] [place] [facility] [address] [id number] [place] [address]- 0389 Jul, [facility] [place] [facility] [address] [id number] [place] [address]- 2475 Jun, 2014 [facility] [place] [facility] [address] [facility] [id number] [place] [address]- 0218 Jun, [facility] [place] [facility] [address] [facility] [id number] [place] [address]- 7724 Jun, 2014 [facility] [place] [facility] [address] [id number] [place] [address]- 3575 Jun, 2014 [facility] [place] [facility] [address] [facility] [id number] [place] [address]- 2005 Jun, 2014 [facility] [place] [facility] [address] [facility] [id number] [place] [address]- 0245 Jun, 2014 [facility] [place] [facility] [address] [id number], [place] [address]- 0434 Jun, [facility] [place] [facility] [address] [id number] [place] [address]- 0836 Jun, [facility] [place] [facility] [address] [facility] [id number] [place] [address]- 1936 Apr, [facility] [place] [facility] [address] [facility] [id number] [place] [address]- 9541 Apr, [facility] [place] [facility] [address] [id number] [place] [address]- 6358 23 Apr, 2014 [facility] [address] [id number] [place] [address]- 5549 Apr, [facility] [place] [facility] [address] [id number] [place]- 0186 18 Apr, 2014 [facility] [address] [id number] [place]- 6338 18 Apr, 2014 [facility] [place] [facility] [address] [id number] [place] [address]- 0053 15 Apr, 2014 [facility] [address] [id number] [place] [address]- 7601 15 Apr, 2014 [facility] [address] [id number] [place] [address]- 6201 Apr, [facility] [place] [facility] [address] [id number] [place] [address]- 6262 Apr, [facility] [address] [id number] [place] [address]- 1313 Apr, [facility] [place] [facility] [address] [id number] [place] [address]- 0242 Apr, [facility] [address] [id number] [place] [address]- 2116 Apr, [facility] [place] [facility] [address] [id number] [place] [address]- 1116 Apr, [facility] [place] [facility] [address] [id number] [place]- 4530 Apr, [facility] [place] [facility] [address] [id number] [place] [address]- 1614 Feb, [facility] [place] [facility] [address] [id number] [place] [address]- 8944 Feb, [facility] [place] [facility] [address] [id number] [place] [address]- 9551 Feb, [facility] [place] [facility] [address] [id number] [place] [address]- 9524 Feb, [facility] [place] [facility] [address] [id number] [place] [address]- 4869 Feb, [facility] [place] [facility] [address] [id number] [place] [address]- 1082 Feb, [facility] [place] [facility] [address] [id number] [place] [address]- 3085 Jan, 2013 [facility] [place] [facility] [address] [id number] [place] [address]- 3602 Jan, 2013 [facility] [place] [facility] [address] [id number] [place] [address]- 4860 Jan, 2013 [facility] [place] [facility] [address] [id number] [place] [address]- 3964 Jan, 2013 [facility] [place] [facility] [address] [id number] [place] [address]- 8246 Jan, 2013 [facility] [place] [facility] [address] [id number] [place] [address]- 8723 Jan, [facility] [place] [facility] [address] [id number] [place] [address]- 3383 Dec, [facility] [place] [facility] [address] [id number] [place] [address]- 5045 Dec, [facility] [place] [facility] [address] [id number] [place] [address]- 2832 Dec, [facility] [place] [facility] [address] [id number] [place] [address]- 8629 Dec, [facility] [place] [facility] [address] [id number] [place] [address]- 0537 Nov, [facility] [place] [facility] [address] [id number] [place] [address]- 8034 Nov, [facility] [place] [facility] [address] [id number] [place] [address]- 4184 Nov, [facility] [place] [facility] [address] [id number] [place] [address]- 9712 Nov, [facility] [place] [facility] [address] [id number] [place] [address]- 6004 Nov, [facility] [place] [facility] [address] [id number] [place] [address]- 4643 Nov, [facility] [place] [facility] [address] [id number] [place] [address]- 8342 Nov, [facility] [place] [facility] [address] [id number] [place] [address]- 3187 Nov, [facility] [place] [facility] [address] [id number] [place] [address]- 7496 Oct, [facility] [place] [facility] [address] [id number] [place] [address]- 0985 Oct, [facility] [place] [facility] [address] [id number] [place] [address]- 7840 Oct, [facility] [place] [facility] [address] [id number] [place] [address]- 2958 Oct, [facility] [place] [facility] [address] [id number] [place] [address]- 8657 Oct, [facility] [place] [facility] [address] [id number] [place] [address]- 6609 Oct, [facility] [place] [facility] [address] [id number] [place] [address]- 4811 Oct, [facility] [place] [facility] [address] [id number] [place] [address]- 0965 Oct, [facility] [place] [facility] [address] [id number] [place] [address] Oct, [facility] [place] [facility] [address] [id number] [place] [address] Oct, [facility] [place] [facility] [address] [id number] [place] [address] 23 Oct, 2013 [facility] [place] [facility] [address] [id number] [place] [address] 23 Oct, 2013 [facility] [place] [facility] [address] [id number] [place] [address] 18 Oct, 2013 [facility] [place] [facility] [address] [id number] [place] [address] 18 Oct, 2013 [facility] [place] [facility] [address] [id number] [place] [address] 17 Oct, 2013 [facility] [place] [facility] [address] [id number] [place] [address] 17 Oct, 2013 [facility] [place] [facility] [address] [id number] [place] [address] 16 Oct, 2013 [facility] [place] [facility] [address] [id number] [place] [address] 16 Oct, 2013 [facility] [place] [facility] [address] [id number] [place] [address] Oct, [facility] [place] [facility] [address] [id number] [place] [address] Oct, [facility] [place] [facility] [address] [id number] [place] [address] Oct, [facility] [place] [facility] [address] [id number] [place] [address] Oct, [facility] [place] [facility] [address] [id number] [place] [address]- [address] 09 Oct, 2013 [facility] [place] [facility] [address] [id number] [place] [address] Oct, [facility] [place] [facility] [address] [id number] [place] [address]- [address] 06 Oct, 2013 [facility] [place] [facility] [address] [id number] [place] [address] Oct, [facility] [place] [facility] [address] [id number] [place] [address] Oct, [facility] [place] [facility] [address] [id number] [place] [address] Oct, [facility] [place] [facility] [address] [id number] [place] [address] Oct, [facility] [place] [facility] [address] [id number] [place] [address] Oct, [facility] [place] [facility] [address] [id number] [place] [address] September, [facility] [place] [facility] [address] [id number] [place] [address] September, [facility] [place] [facility] [address] [id number] [place] [address]64 September, [facility] [place] [facility] [address] [id number] [place] [address]- [address] September, [facility] [place] [facility] [address] [id number] [place] [address] September, [facility] [place] [facility] [address] [id number] [place] [address]184 September, [facility] [place] [facility] [address] [id number] [place] [address] September, [facility] [place] [address] [id number] [place] [address] 89[address] September, [facility] [place] [facility] [address] [id number] [place] [address]- 17[address] September, [facility] [place] [facility] [address] [id number] [place] [address]235 September, [facility] [place] [facility] [address] [id number] [place] [address]- [address] September, [facility] [place] [facility] [address] [id number] [place] [address] September, [facility] [address] [id number] [place] [address] September, [facility] [place] [facility] [address] [id number] [place] [address]165 September, [facility] [place] [facility] [address] [id number] [place] [address]- [address] September, [facility] [place] [facility] [address] [id number] [place] [address] September, [facility] [place] [facility] [address] [id number] [place] [address]- [address] September, [facility] [place] [facility] [address] [id number] [place] [address] September, [facility] [address] [id number] [place] [address] Aug, [facility] [place] [facility] [address] [id number] [place] [address]- [address] Aug, [facility] [place] [facility] [address] [id number] [place] [address] Aug, [facility] [place] [facility] [address] [id number] [place] [address] Aug, [facility] [place] [facility] [address] [id number] [place] [address] Aug, [facility] [place] [facility] [address] [id number] [place] [address] 3634 Aug, [facility] [place] [facility] [address] [id number] [place] [address] Jul, [facility] [place] [facility] [address] [id number] [place] [address] Jul, [facility] [place] [facility] [address] [id number] [place] [address] Jul, [facility] [place] [facility] [address] [id number] [place] [address] Jul, [facility] [place] [facility] [address] [id number] [place] [address]26 Jun, [facility] [place] [facility] [address] [id number] [place] [address] 4168 Jun, [facility] [place] [facility] [address] [id number] [place] [address] 3925 Jun, [facility] [place] [facility] [address] [id number] [place] [address] 7673 Jun, [facility] [place] [facility] [address] [id number] [place] [address] 8738 Mar, [facility] [place] [facility] [address] [id number] [place] [address]- 3738 Mar, [facility] [place] [facility] [address] [id number] [place] [address] Mar, [facility] [place] [facility] [address] [id number] [place] [address]- 7300 Mar, [facility] [place] [facility] [address] [id number] [place] [address]- 8150 Feb, [facility] [place] [facility] [address] [id number] [place] [address]- 9136 Feb, [facility] [place] [facility] [address] [id number], [place] [address] Feb, [facility] [place] [facility] [address] [id number] [place] [address]- 2699 Jan, [facility] [place] [facility] [address] [id number] [place] [address]- 4479 20 Jan, 2013 [facility] [place] [facility] [address] [id number], [place] [address] 12 Jan, 2013 [facility] [place] [facility] [address] [id number] [place] [address]- 3487 Jan, [facility] [place] [facility] [address] [id number] [place] [address]- 8599 Dec, [facility] [place] [facility] [address] [id number] [place] [address]- 4908 Dec, [facility] [place] [facility] [address] [id number] [place] [address]- 0514 Dec, [facility] [place] [facility] [address] [id number] [place] [address]- 2349 Dec, [facility] [place] [facility] [address] [id number] [place] [address]- 5262 Nov, [facility] [place] [facility] [address] [id number] [place] [address]- 5955 Nov, [facility] [place] [facility] [address] [id number] [place] [address]- 4565 Nov, [facility] [place] [facility] [address] [id number] [place] [address]- 6714 Nov, [facility] [place] [facility] [address] [id number] [place] [address]- 7390 Nov, [facility] [place] [facility] [address] [id number] [place] [address]- 2700 Nov, [facility] [place] [facility] [address] [id number] [place] [address]- 1808 Oct, [facility] [place] [facility] [address] [id number] [place] [address]- 8810 Oct, [facility] [place] [facility] [address] [id number] [place] [address]- 0983 Oct, [facility] [place] [facility] [address] [id number] [place] [address]- 4533 Oct, [facility] [place] [facility] [address] [id number] [place] [address]- 9192 Oct, [facility] [place] [facility] [address] [id number] [place] [address]- 7040 16 Oct, 2012 [facility] [address] [id number] [place] [address]- 8665 14 Oct, 2012 [facility] [place] [facility] [address] [id number] [place] [address]- 0426 13 Oct, 2012 [facility] [place] [facility] [address] [id number] [place] [address]- 6806 11 Oct, 2012 [facility] [place] [facility] [address] [id number] [place] [address]- 3817 07 Oct, 2012 [facility] [place] [facility] [address] [id number] [place] [address]- 3862 September, [facility] [place] [facility] [address] [id number] [place] [address]- 1686 September, [facility] [place] [facility] [address] [id number] [place] [address]- 6947 September, [facility] [place] [facility] [address] [id number] [place] [address]- 4171 Aug, [facility] [place] [facility] [address] [id number] [place] [address]- 8340 Aug, [facility] [place] [facility] [address] [id number] [place] [address]- 3334 Aug, [facility] [place] [facility] [address] [id number] [place] [address]- 3162 Aug, [facility] [place] [facility] [address] [id number] [place] [address]- 5095 30 Jul, 2012 [facility] [place] [facility] [address] [id number] [place] [address]- 5438 Jul, [facility] [place] [facility] [address] [id number] [place] [address]- 3726 Jul, [facility] [place] [facility] [address] [id number] [place] [address]- 4414 Jul, [facility] [address] [id number] [place] [address]- 9378 Jul, [facility] [place] [facility] [address] [id number] [place] [address]- 3372 Jul, [facility] [place] [facility] [address] [id number] [place] [address]- 3440 May, [facility] [place] [facility] [address] [id number] [place] [address]- 5002 May, [facility] [place] [facility] [address] [id number] [place] [address]- 0837 May, [facility] [place] [facility] [address] [id number] [place] [address]- 9002 May, [facility] [place] [facility] [address] [id number] [place] [address]- 6203 May, [facility] [place] [facility] [address] [id number] [place] [address]- 9136 May, [facility] [place] [facility] [address] [id number] [place] [address]- 9454 May, [facility] [place] [facility] [address] [id number] [place] [address]- 3193 May, [facility] [place] [facility] [address] [id number] [place] [address]- 2730 May, [facility] [place] [facility] [address] [id number], [place] [address]- 6945 May, [facility] [place] [facility] [address] [id number] [place] [address]- 0656 16 May, 2012 [facility] [place] [facility] [address] [id number] [place] [address]- 8895 Apr, [facility] [place] [facility] [address] [id number] [place] [address]- 8237 Apr, [facility] [place] [facility] [address] [id number] [place] [address]- 3468 Apr, [facility] [place] [facility] [address] [id number] [place] [address]- 3879 Apr, [facility] [place] [facility] [address] [id number] [place] [address]- 0176 Apr, [facility] [place] [facility] [address] [id number] [place] [address]- 9287 Apr, [facility] [place] [facility] [address] [id number] [place] [address]- 3854 Mar, [facility] [place] [facility] [address] [id number] [place] [address]- 3489 Mar, [facility] [place] [facility] [address] [id number] [place] [address]- 8655 Mar, [facility] [place] [facility] [address] [id number] [place] [address]- 5705 Mar, [facility] [place] [facility] [address] [id number] [place] [address]- 6346 Mar, [facility] [place] [facility] [address] [id number] [place] [address]- 0572 Mar, [facility] [place] [facility] [address] [facility] [id number] [place] [address]- 4760 Mar, [facility] [place] [facility] [address] [id number] [place] [address]- 3393 05 Mar, 2012 [facility] [place] [facility] [address] [id number], [place] [address]- 8439 Feb, [facility] [place] [facility] [address] [id number] [place] [address]- 9635 Feb, [facility] [place] [facility] [address] [id number] [place] [address]- 8276 16 Feb, 2012 [facility] [place] [facility] [address] [id number], [place] [address]- 2319 15 Feb, 2012 [facility] [place] [facility] [address] [id number] [place] [address]- 6561 15 Feb, 2012 [facility] [place] [facility] [address] [id number] [place] [address]- 8698 13 Feb, 2012 [facility] [place] [facility] [address] [id number] [place] [address]- 8268 Feb, [facility] [place] [facility] [address] [id number] [place] [address]- 2911 Feb, [facility] [place] [facility] [address] [id number] [place] [address]- 9839 Feb, [facility] [place] [facility] [address] [id number] [place] [address]- 9237 Feb, [facility] [place] [facility] [address] [id number] [place] [address]- 4768 Feb, [facility] [place] [facility] [address] [id number] [place] [address]- 7789 Feb, [facility] [place] [facility] [address] [id number] [place] [address]- 6223 Feb, [facility] [place] [facility] [address] [id number] [place] [address]- 0214 Feb, [facility] [place] [facility] [address] [id number] [place] [address]- 0753 Feb, [facility] [place] [facility] [address] [id number] [place] [address]- 1220 Feb, [facility] [place] [facility] [address] [id number] [place] [address]- 4453 Feb, [facility] [place] [facility] [address] [id number] [place] [address]- 1189 Feb, [facility] [place] [facility] [address] [id number] [place] [address]- 9306 Jan, [facility] [place] [facility] [address] [id number] [place] [address]- 2146 13 Jan, 2012 [facility] [place] [facility] [address] [id number] [place] [address]- 5115 11 Jan, 2012 [facility] [place] [facility] [address] [id number] [place] [address]- 6426 10 Jan, 2012 [facility] [place] [facility] [address] [id number] [place] [address]- 0936 05 Jan, 2012 [facility] [place] [facility] [address] [id number] [place] [address]- 6550 Dec, [facility] [place] [facility] [address] [id number] [place] [address]- 5613 Dec, [facility] [place] [facility] [address] [id number] [place] [address]- 1811 Dec, [facility] [place] [facility] [address] [id number] [place] [address]- 8312 Dec, [facility] [place] [facility] [address] [id number] [place] [address]- 5169 Dec, [facility] [place] [facility] [address] [id number] [place] [address]- 4927 Dec, [facility] [place] [facility] [address] [id number] [place] [address]- 4259 Nov, [facility] [place] [facility] [address] [id number] [place] [address]- 1829 Nov, [facility] [place] [facility] [address] [id number] [place] [address]- 4697 Nov, [facility] [place] [facility] [address] [id number] [place] [address]- 0463 Nov, [facility] [place] [facility] [address] [id number] [place] [address]- 3024 Nov, [facility] [place] [facility] [address] [id number] [place] [address]- 9426 Oct, [facility] [place] [facility] [address] [id number] [place] [address]- 4843 Oct, [facility] [address] [id number] [place] [address]- 9790 Oct, [facility] [address] [id number] [place] [address]- 9813 September, [facility] [address] [id number] [place] [address]- 2529 September, [facility] [address] [id number] [place] [address]- 4661 September, [facility] [address] [id number] [place] [address]- 9668 September, [facility] [address] [id number] [place] [address]- 4316 September, [facility] [address] [id number] [place] [address]- 1575 September, [facility] [address] [id number] [place] [address]- 5496 Aug, [facility] [address] [id number] [place] [address]- 3026 Aug, [facility] [address] [id number] [place] [address]- 1838 Aug, [facility] [address] [id number] [place] [address]- 4586 Jun, [facility] [address] [id number] [place] [address]- 7183 Jun, [facility] [address] [id number] [place] [address]- 1398 Jun, [facility] [address] [id number] [place] [address]- 4196 Jun, [facility] [address] [id number] [place] [address]- 9095 May, [facility] [place] [facility] [address] [id number] [place] [address]- 9118 May, [facility] [place] [facility] [address] [id number] [place] [address]- 8125 May, [facility] [place] [facility] [address] [id number] [place] [address]- 9078 May, [facility] [place] [facility] [address] [id number] [place] [address]- 0646 May, [facility] [place] [facility] [address] [id number] [place] [address]- 4252 Apr, [facility] [place] [facility] [address] [id number] [place] [address]- 1684 Apr, [facility] [place] [facility] [address] [id number] [place] [address]- 8484 Apr, [facility] [place] [facility] [address] [id number] [place] [address]- 3884 Apr, [facility] [place] [facility] [address] [id number] [place] [address]- 5680 Apr, [facility] [place] [facility] [address] [id number] [place] [address]- 3452 16 Apr, 2011 [facility] [place] [facility] [address] [id number], [place] [address]- 9834 Apr, [facility] [place] [facility] [address] [id number], [place] [address]- 4582 Mar, [facility] [place] [facility] [address] [id number] [place] [address]- 5709 Mar, [facility] [place] [facility] [address] [id number] [place] [address]- 1230 15 Mar, 2011 [facility] [place] [facility] [address] [id number] [place] [address]- 7517 26 Feb, 2011 [facility] [place] [facility] [address] [id number] [place] [address]- 1318 24 Feb, 2011 [facility] [place] [facility] [address] [id number] [place] [address]- 1906 Feb, [facility] [place] [facility] [address] [id number] [place] [address]496 Feb, [facility] [place] [facility] [address] [id number] [place] [address]- 1286 Feb, [facility] [place] [facility] [address] [id number] [place] [address]- 5256 17 Feb, 2011 [facility] [place] [facility] [address] [id number] [place] [address]- 1843 Jan, [facility] [place] [facility] [address] [id number] [place] [address]- 0574 Jan, [facility] [place] [facility] [address] [id number] [place] [address]- 1406 September, [facility] [place] [facility] [address] [id number] [place] [address]- 0783 Jun, [facility] [place] [facility] [address] [id number] [place] [address]- 5608 Apr, [facility] [place] [facility] [address] [id number] [place] [address]- 9839 Apr, [facility] [place] [facility] [address] [id number] [place] [address] 2546 Apr, [facility] [place] [facility] [address] [id number] [place] [address] 2541 Apr, [facility] [place] [facility] [address] [id number] [place] [address] 2546 Apr, [facility] [place] [facility] [address] [id number] [place] [address]- 2546 Mar, [facility] [place] [facility] [address] [id number] [place] [address] 2544 Mar, [facility] [address] [id number] [address]- 0346 Mar, [facility] [id number] [address]- 9716 Mar, [facility] [id number], [place] [address]- 5876 Feb, [facility] [id number] [place] [address]- 8066 Jan, [facility] [id number] [place] [address] 84[address]- 4157 Mar, [facility] [id number] [place] [address] 32720- 6737 Jan, [facility] [id number] [place] [address] 28432- 6952 Oct, [facility] [id number], [place] [address]- 8396 Apr, IMMUNIZATIONS No Known Immunizations SOCIAL HISTORY Never Assessed REASON FOR VISIT Congestion / cough x3-4 days, started after last rain--DBennettRN, worse throught in night and first thing in the morning, c/o lower back pain, would like checked for UTI, denies burning, urgency, frequency, unable to void at this time PLAN OF CARE Activity Details Follow Up 1 Week Reason:[facility] SIGNS Height 66 in 2016-12-14 Weight 240 lbs 2016-12-14 Temperature 98.9 degrees Fahrenheit 2016-12-14 Heart Rate 90 bpm 2016-12-14 Respiratory Rate 20 2016-12-14 BMI 38.73 kg/m2 2016-12-14 Blood pressure systolic 98 mmHg 2016-12-14 Blood pressure diastolic 60 mmHg 2016-12-14 MEDICATIONS Medication Instructions Dosage Frequency Start Date End Date Duration Status Esomeprazole Magnesium 20 mg Orally Once a day 1 capsule 24h Jun, 90 days Active Ibuprofen 800 MG Orally Three times a day 1 tablet 8h 30 Active Flexeril 10 mg Orally 2 times a day s needed 1 tablet Active Zithromax 250 MG Orally Once a day 2 tablets on the first day, then 1 tablet daily for 6 days 24h Dec, Dec, 07 days Active Promethazine-Codeine 6.25-10 MG/5ML Orally at hs 5 ml as needed Dec, Active Actos 30 MG Orally Once a day 1/2 tablet 24h Dec, 60 days Active Lisinopril-Hydrochlorothiazide 20-12.5 MG Orally Once a day 1 tablet 24h 30 Active Sudafed 12 Hour 120 MG Orally every 12 hrs 1 tablet as needed 12h Dec, 10 days Active Zyrtec Allergy 10 mg Orally Once a day 1 tablet 24h Dec, May, 30 day(s) Active RESULTS Name Result Date Reference Range UA LONG DIP (IN HOUSE) 2016-12-14 Lot # [id number] Exp date 10/11/2017 Clarity Clear Color Yellow Odor None GLU Negative RANDALL Negative KET Negative SG 1.020 BLO Negative pH 7.5 Protein Trace URO 1.0 NIT Negative TRAVIS Negative Lot # Exp date PROCEDURES Procedure Date Ordered Result Body Site GLYCATED HEMOGLOBIN TEST Dec 14, 2016 URINALYSIS, AUTO, W/O SCOPE Dec 14, 2016 INSTRUCTIONS MEDICATIONS ADMINISTERED No Known Medications MEDICAL [...]
--- OUTSIDE RECORDS SUMMARY | 2018-03-22 21:58 | XMS REPORT ---
Author Author BRITANY BOSCH Organization [employer] Address Unknown Phone Unavailable Care Team Providers Care Repairer Maintenance Building Name Role Phone BRITANY BOSCH CP Unavailable [...] Date End Date Status Dosage Tramadol HCl [facility] [address]-93 50 mg Orally every 6 hrs prn- must keep appt on for refills TAKE ONE TABLET Results No Known Results Summary Purpose [employer] Submission
--- OUTSIDE RECORDS SUMMARY | 2018-03-22 21:59 | XMS REPORT ---
Author Author BRITANY BOSCH [facility] Address [address] [place] [address] Care Team Providers Care Injection Mold Technician Name Role Phone DANITZA BRITANY Unavailable PROBLEMS Type Condition ICD9-CM Code RBZ17-UT Code Onset Dates Condition Status SNOMED Code Problem Other chronic pain G89.29 Active 30853738 Problem Pain in left foot M79.672 Active 220741945120897 Problem Plantar wart of right foot B07.0 Active 15274627 Problem Obesity (BMI 30-39.9) E66.9 Active 923064000 Problem Heartburn R12 Active 26112343 Problem Rhinosinusitis J32.9 Active 76423406 Problem Other obesity due to excess calories E66.09 Active 846869382 Problem Pain in right foot M79.671 Active [id number] Problem Alternating constipation and diarrhea R19.8 Active 981521422 Problem Acute non-recurrent maxillary sinusitis J01.00 Active 96502404 Problem Essential hypertension I10 Active 66457498 Problem Bilateral low back pain without sciatica M54.5 Active 629495503 Problem Irritable bowel syndrome without diarrhea K58.9 Active 66010230 Problem Bilateral low back pain, with sciatica presence unspecified M54.5 Active 272870833 Problem High risk bisexual behavior Z72.53 Active 485494793 Problem Long-term use of high-risk medication Z79.899 Active 952040353 Problem Pre-diabetes R73.03 Active 944504709 Problem Impacted cerumen of right ear H61.21 Active 76794766 Problem Anxiety F41.9 Active 41366173 Problem Folliculitis L73.9 Active [id number] ALLERGIES No Information ENCOUNTERS Encounter Location Date Diagnosis [facility] [address] [facility] [id number] [address] Nov, [facility] [id number] [place] [address] 90084- 4799 Oct, Abscess of groin, left L02.214 and Pre-diabetes R73.03 [facility] [address] [address]67- 5659 September, Pre-diabetes R73.03 [facility] [address] 34539- 2085 Aug, [facility] [address] 22224- 6000 Jul, Bilateral low back pain without sciatica M54.5 [facility] [address] 57601- 6371 Jun, [facility] [address] 04337- 2831 Jun, [facility] [address] 84191- 5942 Jun, [facility] [address] 39008- 9201 May, [facility] [address] 53485- 7272 May, Ingrown left greater toenail L60.0 [facility] [id number] [place] [address] 21964- 5893 May, [facility] [address] [address] -[address] May, Influenza A J10.1 ; Fever R50.9 and Body aches R52 [facility] [address] 17937- 8042 Apr, [facility] [address] 76516- 5272 Apr, [facility] [address] 35384- 8595 Apr, [facility] [id number] [place] [address] 62394- 3526 05 Apr, 2017 Abscess L02.91 and Obesity (BMI 30-39.9) E66.9 [facility] [id number] [place] [address] 67025- 6673 Apr, [place] [address] 36385- 6549 Apr, [place] [address] 37521- 0185 Mar, Acute non-recurrent maxillary sinusitis J01.00 [place] [address] 32839- 3288 Feb, Heartburn R12 [place] [address] 53848- 6628 Feb, Heartburn R12 ; Low back pain M54.5 ; Essential hypertension I10 ; Bilateral low back pain without sciatica M54.5 ; Anxiety F41.9 ; Pre-diabetes R73.03 ; Other obesity due to excess calories E66.09 ; Alternating constipation and diarrhea R19.8 ; Dyspepsia R10.13 ; Generalized abdominal pain R10.84 ; Rhinosinusitis J32.9 and Boil L02.92 [facility] [id number] [place] [address] 82458- 5754 Jan, Heartburn R12 [facility] [id number] [place] [address] 45683- 9072 Jan, [facility] [id number] [place] [address] 27439- 5404 Jan, [facility] [id number] [place] [address] 40175- 1766 Jan, Acute seasonal allergic rhinitis due to pollen J30.1 and Irritable bowel syndrome without diarrhea K58.9 [facility] [address] 54260- 0803 Dec, Low back pain M54.5 and Acute cystitis with hematuria N30.01 [place] [address] 12976- 1872 Dec, Low back pain M54.5 and Acute cystitis with hematuria N30.01 [place] [address] 96997- 2646 Dec, Heartburn R12 ; Essential hypertension I10 ; Acute non- recurrent maxillary sinusitis J01.00 ; Bilateral low back pain without sciatica M54.5 ; Anxiety F41.9 ; Pre-diabetes R73.03 ; Pain in right foot M79.671 ; Pain in left foot M79.672 ; Other obesity due to excess calories E66.09 and Acute cystitis with hematuria N30.01 [place] [address] 69850- 8410 Dec, Bilateral low back pain without sciatica M54.5 ; Acute non- recurrent maxillary sinusitis J01.00 and Pre-diabetes R73.03 [place] [address] 21925- 6782 Oct, [facility] [address] 09886 -4680 Aug, [facility] [address] 99981 -3731 Aug, Acute vaginitis N76.0 ; Urinary frequency R35.0 ; Screen for STD (sexually transmitted disease) Z11.3 and Abscess L02.91 [place] [address] 68369- 0759 Aug, Plantar wart of right foot B07.0 [place] [address] 92864- 1722 Jul, Plantar wart of right foot B07.0 [place] [address] 00410- 7331 Jun, [facility] [id number] [place] [address] 51088- 4914 Jun, Heartburn R12 ; Essential hypertension I10 ; Anxiety F41.9 ; Folliculitis L73.9 and Plantar wart of right foot B07.0 [place] [id number] [place] [address] 05255- 1730 Jun, [facility] [address] 74736 -8153 May, Low back pain M54.5 and Other chronic pain G89.29 [place] [address] 51490- 0243 May, [place] [address] 62786- 5673 May, [place] [address] 26154- 4667 May, Heartburn R12 ; Bilateral low back pain without sciatica M54.5 ; Essential hypertension I10 ; Long-term use of high-risk medication Z79.899 ; Anxiety F41.9 ; Impacted cerumen of right ear H61.21 ; Folliculitis L73.9 ; High risk bisexual behavior Z72.53 and General medical exam Z00.00 [facility] [id number] [place] [address] 35536- 1366 May, [facility] [id number] [place] [address] 91333- 5195 May, [facility] [id number] [place] [address] 96355- 1287 Mar, Acute nasopharyngitis J00 ; Acute intractable tension-type headache G44.201 and Cough R05 [facility] [place] [id number] [place] [address] 20462- 9034 Jan, [facility] [address] 07891 -7030 29 Jan, 2016 Abscess L02.91 [facility] [address] [address]146 10 Jan, 2016 Urinary urgency R39.15 and Urinary tract infection without hematuria, site unspecified N39.0 [facility] [address] [address]- 4554 Jan, [facility] [id number] [place] [address] 51139- 7052 Jan, [facility] [address], [place] [address]- 2490 Dec, [facility] [id number] [place] [address] 40999- 3082 Dec, Dermatofibroma D23.9 [facility] [id number] [place] [address] 56167- 1615 September, [facility] [id number] [place] [address] 05416- 3352 Aug, [facility] [address] [place] [address] 11841- 7619 Aug, Pain in left knee M25.562 ; Heartburn R12 ; Bilateral low back pain without sciatica M54.5 ; Essential hypertension I10 ; Ingrown left big toenail L60.0 ; Chronic pain G89.29 ; Irritable bowel syndrome with constipation K58.9 and Skin infection L08.9 [facility] [address] [address]- 0090 Aug, [facility] [id number] [place] [address] 98456- 1493 Jul, [facility] [address] [id number] [address]- 9165 Jun, [facility] [address] [address]- 8520 Jun, [place] [address] [address]- 9829 Jun, [facility] [id number] [place] [address] 70837- 5390 Jun, [facility] [id number] [place] [address] 75301- 8128 Jun, Upper respiratory infection J06.9 ; Bilateral low back pain without sciatica M54.5 and Headache R51 [facility] [id number] [place] [address] 72925- 4944 May, [facility] [id number] [place] [address] 81701- 0637 Apr, Bilateral low back pain without sciatica M54.5 ; Upper respiratory infection J06.9 and Yeast dermatitis B37.2 [facility] [id number] [place] [address] 74521- 4817 Apr, [facility] [id number] [place] [address] 16566- 1042 Apr, [facility] [id number] [place] [address] 11782- 0066 Feb, [facility] [id number] [place] [address] 24780- 3648 Feb, [facility] [id number] [place] [address] 38433- 0406 Feb, [facility] [id number] [place] [address] 49710- 9140 Feb, Essential hypertension I10 ; Heartburn R12 ; Irritable bowel syndrome without diarrhea K58.9 ; Bilateral low back pain, with sciatica presence unspecified M54.5 and Upper respiratory infection J06.9 [facility] [address] [place] [address] 27578- 8649 Feb, [facility] [id number] [place] [address] 52147- 8967 Feb, Generalized anxiety disorder F41.1 and Grief F43.20 [facility] [place] [id number] [place] [address] 145921- 9242 Jan, [place] [address] 327308- 6393 Jan, Back pain 724.5 ; Upper respiratory infection 465.9 ; HTN ( hypertension) 401.9 and Dyspepsia 536.8 [place] [id number] [place] [address] 41933- 2581 Dec, [place] [address] 65722- 4616 Nov, Back pain 724.5 ; Abdominal pain, bilateral lower quadrant 789.03 ; GERD (gastroesophageal reflux disease) 530.81 ; Upper respiratory infection 465.9 ; Dysuria 788.1 and HTN (hypertension) 401.9 [place] [address] 54425- 5397 Nov, [facility] [id number] [place] [address] 77455- 7055 Nov, [facility] [place] [id number] [place] [address] 01681- 9467 Nov, [facility] [place] [id number] [place] [address] 68946- 0110 Nov, Cough 786.2 [place] [id number] [place] [address] 96584- 0966 Nov, Cough 786.2 [facility] [id number] [place] [address] 31546- 4127 Oct, Unspecified episodic mood disorder 296.90 and Anxiety disorder, unspecified 300.00 [place] [id number] [place] [address] 56609- 2347 Oct, Abdominal pain, left upper quadrant 789.02 ; Essential hypertension, benign 401.1 ; Irritable bowel syndrome 564.1 ; Abscess 682.9 ; Heartburn 787.1 ; Acute sinusitis, unspecified 461.9 ; Muscle spasm of back 724.8 ; Cough 786.2 and Skin tag 701.9 [facility] [address], [place] [address]- 7884 September, [facility] [address] [address]- 6300 September, [facility] [id number] [address]- 4981 September, [facility] [id number] [place] [address] 46712- 8082 Aug, [facility] [id number] [address]- 1970 Aug, [facility] [id number] [place] [address] 57713- 7644 Jul, [facility] [address], [place] [address]- 3746 Jul, [facility] [address], [place] [address]- 9714 Jul, [facility] [address] [address]- 1304 Jul, [facility] [address] [address]- 0351 Jul, [facility] [address] [address]- 0832 Jul, [facility] [address] [address]- 1211 Jul, [facility] [address] 8317 Jul, [facility] [address]- 2994 Jul, [facility] [place] [facility] [address] [id number] [place] [address]- 6657 Jul, [facility] [place] [facility] [address] [id number] [place] [address]- 7213 Jul, 2014 [facility] [place] [facility] [address] [id number] [place] [address]- 9540 Jul, [facility] [place] [facility] [address] [id number] [place] [address]- 4101 Jul, 2014 [facility] [place] [facility] [address] [id number] [place] [address]- 1516 Jul, [facility] [place] [facility] [address] [id number] [place] [address]- 8947 Jul, [facility] [place] [facility] [address] [facility] [id number] [place] [address]- 0968 Jul, [facility] [place] [facility] [address] [id number] [place] [address]- 0600 Jul, [facility] [place] [facility] [address] [id number] [place] [address]- 5064 Jun, [facility] [place] [facility] [address] [id number] [place] [address]- 0038 Jun, [facility] [place] [facility] [address] [facility] [id number] [place] [address]- 2442 Jun, [facility] [place] [facility] [address] [id number] [place] [address]- 6176 Jun, 2014 [facility] [place] [facility] [address] [id number] [place] [address]- 3751 Jun, [facility] [place] [facility] [address] [id number] [place] [address]- 2490 Jun, 2014 [facility] [place] [facility] [address] [facility] [id number] [place] [address]- 2375 Jun, 2014 [facility] [place] [facility] [address] [facility] [id number] [place] [address]- 9562 03 Jun, 2014 [facility] [address] [id number] [place] [address]- 3836 Apr, [facility] [place] [facility] [address] [id number] [place] [address]- 3899 Apr, [facility] [place] [facility] [address] [id number] [place] [address]- 5741 Apr, [facility] [place] [facility] [address] [id number] [place] [address]- 3787 Apr, [facility] [place] [facility] [address] [id number] [place] [address]- 9728 Apr, [facility] [place] [facility] [address] [id number] [place] [address]- 7868 Apr, [facility] [place] [facility] [address] [id number] [place] [address]- 5661 Apr, [facility] [place] [facility] [address] [id number] [place] [address]- 5282 Apr, [facility] [place] [facility] [address] [id number] [place] [address]- 3034 Apr, [facility] [place] [facility] [address] [id number] [place] [address]- 1754 Apr, [facility] [place] [facility] [address] [id number] [place] [address]- 5460 Apr, [facility] [place] [facility] [address] [id number] [place] [address]- 2312 Apr, [facility] [place] [facility] [address] [id number] [place] [address]- 8312 04 Apr, 2014 [facility] [place] [facility] [address] [id number] [place] [address]- 9268 04 Apr, 2014 [facility] [place] [facility] [address] [id number] [place] 2007 Apr, [facility] [place] [facility] [address] [id number] [place] [address]- 2805 Feb, [facility] [place] [facility] [address] [id number] [place] [address]- 2005 Feb, [facility] [place] [facility] [address] [id number] [place] [address]- 1728 Feb, [facility] [place] [facility] [address] [id number] [place] [address]- 5474 Feb, [facility] [place] [facility] [address] [id number] [place] [address]- 3032 Feb, [facility] [place] [facility] [address] [id number] [place] [address]- 1606 Feb, [facility] [place] [facility] [address] [id number] [place] [address]- 7050 Jan, 2013 [facility] [place] [facility] [address] [id number] [place] [address]- 8481 Jan, 2013 [facility] [place] [facility] [address] [id number] [place] [address]- 3112 Jan, 2013 [facility] [place] [facility] [address] [id number] [place] [address]- 5580 Jan, 2013 [facility] [place] [facility] [address] [id number] [place] [address]- 0149 Jan, 2013 [facility] [place] [facility] [address] [id number] [place] [address]- 4378 Jan, 2013 [facility] [place] [facility] [address] [id number] [place] [address]- 8081 Dec, [facility] [place] [facility] [address] [id number] [place] [address]- 2990 Dec, [facility] [place] [facility] [address] [id number] [place] [address]- 0383 Dec, [facility] [place] [facility] [address] [id number] [place] [address]- 1167 Dec, [facility] [place] [facility] [address] [id number] [place] [address]- 9432 Nov, [facility] [place] [facility] [address] [id number] [place] [address]- 6351 Nov, [facility] [place] [facility] [address] [id number] [place] [address]- 5872 Nov, [facility] [place] [facility] [address] [id number] [place] [address]- 4144 Nov, [facility] [place] [facility] [address] [id number] [place] [address]- 8469 Nov, [facility] [place] [facility] [address] [id number] [place] [address]- 3554 Nov, [facility] [place] [facility] [address] [id number] [place] [address]- 2243 Nov, [facility] [place] [facility] [address] [id number] [place] [address]- 1145 Nov, [facility] [place] [facility] [address] [id number] [place] [address]- 3078 Oct, [facility] [place] [facility] [address] [id number] [place] [address]- 3930 Oct, [facility] [place] [facility] [address] [id number] [place] [address]- 8927 Oct, [facility] [place] [facility] [address] [id number] [place] [address]- 2740 Oct, [facility] [place] [facility] [address] [id number] [place] [address]- 8396 Oct, [facility] [place] [facility] [address] [id number] [place] [address]- 2710 Oct, [facility] [place] [facility] [address] [id number] [place] [address]- 7204 Oct, [facility] [place] [facility] [address] [id number] [place] [address]- 9585 26 Oct, 2013 [facility] [place] [facility] [address] [id number] [place] [address]- 0553 Oct, [facility] [place] [facility] [address] [id number] [place] [address]- 7903 Oct, [facility] [place] [facility] [address] [id number] [place] [address]- 6124 Oct, [facility] [place] [facility] [address] [id number] [place] [address]- 4484 23 Oct, 2013 [facility] [place] [facility] [address] [id number] [place] [address]- 9225 18 Oct, 2013 [facility] [place] [facility] [address] [id number] [place] [address]- 6872 18 Oct, 2013 [facility] [place] [facility] [address] [id number] [place] [address]- 1667 17 Oct, 2013 [facility] [place] [facility] [address] [id number] [place] [address] 17 Oct, 2013 [facility] [place] [facility] [address] [id number] [place] [address] 16 Oct, 2013 [facility] [place] [facility] [address] [id number] [place] [address] 16 Oct, 2013 [facility] [place] [facility] [address] [id number] [place] [address] 13 Oct, 2013 [facility] [place] [facility] [address] [id number] [place] [address] 13 Oct, 2013 [facility] [place] [facility] [address] [id number] [place] [address] 11 Oct, 2013 [facility] [place] [facility] [address] [id number] [place] [address] 11 Oct, 2013 [facility] [place] [facility] [address] [id number] [place] [address] Oct, [facility] [place] [facility] [address] [id number] [place] [address] Oct, [facility] [place] [facility] [address] [id number] [place] [address] Oct, [facility] [place] [facility] [address] [id number] [place] [address] Oct, [facility] [place] [facility] [address] [id number] [place] [address] Oct, [facility] [place] [facility] [address] [id number] [place] [address] Oct, [facility] [place] [facility] [address] [id number] [place] [address] Oct, [facility] [place] [facility] [address] [id number] [place] [address] Oct, [facility] [place] [facility] [address] [id number] [place] [address] September, [facility] [place] [facility] [address] [id number] [place] [address] September, [facility] [place] [facility] [address] [id number] [place] [address] September, [facility] [place] [facility] [address] [id number] [place] [address] September, [facility] [place] [facility] [address] [id number] [place] [address]100 September, [facility] [place] [facility] [address] [id number] [place] [address]- [address] September, [facility] [place] [facility] [address] [id number] [place] [address] September, [facility] [place] [facility] [address] [id number] [place] [address] September, [facility] [place] [facility] [address] [id number] [place] [address] September, [facility] [address] [id number] [place] [address] September, [facility] [place] [facility] [address] [id number] [place] [address] September, [facility] [place] [facility] [address] [id number] [place] [address] September, [facility] [place] [facility] [address] [id number] [place] [address] September, [facility] [place] [facility] [address] [id number] [place] [address] September, [facility] [place] [facility] [address] [id number] [place] [address] September, [facility] [place] [facility] [address] [id number] [place] [address]- [address]75 September, [facility] [place] [facility] [address] [id number] [place] [address] September, [facility] [place] [facility] [address] [id number] [place] [address]- 0971 September, [facility] [place] [facility] [address] [id number] [place] [address] Aug, [facility] [place] [facility] [address] [id number] [place] [address] 4714 Aug, [facility] [place] [facility] [address] [id number] [place] [address] Aug, [facility] [place] [facility] [address] [id number] [place] [address] Aug, [facility] [place] [facility] [address] [id number] [place] [address] Aug, [facility] [place] [facility] [address] [id number] [place] [address]- [address] Aug, [facility] [place] [facility] [address] [id number] [place] [address] Jul, [facility] [place] [facility] [address] [id number] [place] [address]- [address] Jul, [facility] [place] [facility] [address] [id number] [place] [address] Jul, [facility] [place] [facility] [address] [id number] [place] [address]- [address] Jul, [facility] [place] [facility] [address] [id number] [place] [address] Jun, [facility] [place] [facility] [address] [address] [id number] [place] [address] Jun, [facility] [place] [facility] [address] [id number] [place] [address] Jun, [facility] [place] [facility] [address] [id number] [place] [address] 45[address] Jun, [facility] [place] [facility] [address] [id number] [place] [address] 1983 Mar, [facility] [place] [facility] [address] [id number] [place] [address] 2131 14 Mar, 2013 [facility] [place] [facility] [address] [id number] [place] [address] Mar, [facility] [place] [facility] [address] [id number] [place] [address] 0747 Mar, [facility] [place] [facility] [address] [id number] [place] [address] 395[address] Feb, [facility] [place] [facility] [address] [id number] [place] [address] 9569 Feb, [facility] [place] [facility] [address] [id number] [place] [address] 1112 Feb, [facility] [place] [facility] [address] [id number] [place] [address] 4092 Jan, [facility] [place] [facility] [address] [id number] [place] [address] 9678 Jan, [facility] [place] [facility] [address] [id number] [place] [address] 3658 Jan, [facility] [place] [facility] [address] [id number] [place] [address] 1900 Jan, [facility] [place] [facility] [address] [id number] [place] [address] 2614 Dec, [facility] [place] [facility] [address] [id number] [place] [address] 0401 Dec, [facility] [place] [facility] [address] [id number] [place] [address] 7323 Dec, [facility] [place] [facility] [address] [id number] [place] [address] 5850 Dec, [facility] [place] [facility] [address] [id number] [place] [address] 2745 Nov, [facility] [place] [facility] [address] [id number] [place] [address] 3029 Nov, [facility] [place] [facility] [address] [id number] [place] [address] 4343 Nov, [facility] [place] [facility] [address] [id number] [place] [address]- 7888 Nov, [facility] [place] [facility] [address] [id number] [place] [address]- 3055 Nov, [facility] [place] [facility] [address] [id number] [place] [address]- 7854 Nov, [facility] [place] [facility] [address] [id number] [place] [address]- 3496 Oct, [facility] [place] [facility] [address] [id number] [place] [address] 6957 Oct, [facility] [place] [facility] [address] [id number] [place] [address] 7817 25 Oct, 2012 [facility] [address] [id number] [place] [address] 1103 21 Oct, 2012 [facility] [address] [id number] [place] [address]- 5517 17 Oct, 2012 [facility] [address] [id number] [place] [address]- 2564 16 Oct, 2012 [facility] [address] [id number] [place] [address]- 3377 14 Oct, 2012 [facility] [address] [id number] [place] [address]- 3802 13 Oct, 2012 [facility] [address] [id number] [place] [address] 7123 Oct, [facility] [address] [id number] [place] [address] 9190 Oct, [facility] [address] [id number] [place] [address] 0251 September, [facility] [address] [id number] [place] [address] 5389 September, [facility] [address] [id number] [place] [address] 1448 September, [facility] [address] [id number] [place] [address]- 7486 Aug, [facility] [address] [id number] [place] [address]- 4610 Aug, [facility] [place] [facility] [address] [id number] [place] [address]- 5921 Aug, [facility] [place] [facility] [address] [id number] [place] [address] [address] Aug, [facility] [address] [id number] [place] [address]- 7528 Jul, [facility] [place] [facility] [address] [id number] [place] [address]- 9884 29 Jul, 2012 [facility] [address] [id number] [place] [address]- 8137 26 Jul, 2012 [facility] [address] [id number] [place] [address]- 4423 Jul, [facility] [address] [id number] [place] [address]- 2179 04 Jul, 2012 [facility] [address] [id number] [place] [address]- 0133 Jul, [facility] [address] [id number] [place] [address]- 0465 May, [facility] [address] [id number] [place] [address]- 2504 May, [facility] [address] [id number] [place] [address]- 9481 May, [facility] [address] [id number] [place] [address]- 4636 May, [facility] [address] [id number] [place] [address]- 0677 May, [facility] [address] [id number] [place] [address]- 5261 May, [facility] [address] [id number] [place] [address]- 7461 May, [facility] [place] [facility] [address] [id number] [place] [address]- 6106 May, [facility] [place] [facility] [address] [id number] [place] [address]- 9742 May, [facility] [place] [facility] [address] [id number] [place] [address]- 6189 May, [facility] [place] [facility] [address] [id number], [place] [address] 1181 May, [facility] [place] [facility] [address] [id number] [place] [address]- 4704 Apr, [facility] [place] [facility] [address] [id number] [place] [address]- 9046 Apr, [facility] [place] [facility] [address] [id number] [place] [address]- 6506 Apr, [facility] [place] [facility] [address] [id number] [place] [address]- 2427 Apr, [facility] [place] [facility] [address] [id number] [place] [address]- 4011 Apr, [facility] [place] [facility] [address] [id number] [place] [address]- 6428 Apr, [facility] [place] [facility] [address] [id number] [place] [address]- 6666 Mar, [facility] [place] [facility] [address] [id number] [place] [address]- 4047 Mar, [facility] [place] [facility] [address] [id number], [place] [address]- 3678 Mar, [facility] [place] [facility] [address] [id number] [place] [address]- 6478 Mar, [facility] [place] [facility] [address] [id number], [place] [address]- 1497 Mar, [facility] [place] [facility] [address] [id number][place] [address]- 7976 Mar, [facility] [place] [facility] [address] [id number][place] [address]- 6843 Mar, [facility] [place] [facility] [address] [id number][place] [address]- 2324 Mar, [facility] [place] [facility] [address] [id number] [place] [address]- 8200 Feb, [facility] [place] [facility] [address] [id number] [place] [address]- 2187 23 Feb, 2011 [facility] [place] [facility] [address] [id number] [place] [address]- 1211 16 Feb, 2012 [facility] [place] [facility] [address] [id number] [place] [address]- 0356 15 Feb, 2012 [facility] [place] [facility] [address] [id number] [place] [address]- 7254 15 Feb, 2012 [facility] [place] [facility] [address] [id number] [place] [address]- 9156 13 Feb, 2012 [facility] [place] [facility] [address] [id number] [place] [address]- 7337 Feb, [facility] [place] [facility] [address] [id number] [place] [address]- 8409 Feb, [facility] [place] [facility] [address] [id number] [place] [address]- 4389 Feb, [facility] [place] [facility] [address] [id number] [place] [address]- 1047 Feb, [facility] [place] [facility] [address] [id number] [place] [address]- 1921 Feb, [facility] [place] [facility] [address] [id number] [place] [address]- 4118 Feb, [facility] [place] [facility] [address] [id number] [place] [address]- 0802 Feb, [facility] [place] [facility] [address] [id number] [place] [address]- 5481 Feb, [facility] [place] [facility] [address] [id number] [place] [address]- 7559 Feb, [facility] [place] [facility] [address] [id number] [place] [address]- 8507 Feb, [facility] [place] [facility] [address] [id number] [place] [address]- 9643 Feb, [facility] [place] [facility] [address] [id number] [place] [address]- 5261 Feb, [facility] [place] [facility] [address] [id number] [place] [address]- 2712 Jan, [facility] [place] [facility] [address] [id number] [place] [address]- 4576 13 Jan, 2012 [facility] [place] [facility] [address] [id number] [place] [address]- 1886 11 Jan, 2012 [facility] [place] [facility] [address] [id number] [place] [address]- 7821 10 Jan, 2012 [facility] [place] [facility] [address] [id number] [place] [address]- 2550 05 Jan, 2012 [facility] [place] [facility] [address] [id number] [place] [address]- 7226 Dec, [facility] [place] [facility] [address] [id number] [place] [address]- 4876 Dec, [facility] [place] [facility] [address] [id number] [place] [address]- 7961 Dec, [facility] [place] [facility] [address] [id number] [place] [address]- 9682 Dec, [facility] [place] [facility] [address] [id number] [place] [address]- 8528 Dec, [facility] [place] [facility] [address] [id number][place] [address]- 1793 Dec, [facility] [place] [facility] [address] [id number] [place] [address]- 5989 Nov, [facility] [place] [facility] [address] [id number] [place] [address]- 7494 Nov, [facility] [place] [facility] [address] [id number] [place] [address]- 8004 Nov, [facility] [place] [facility] [address] [id number] [place] [address]- 0549 Nov, [facility] [place] [facility] [address] [id number] [place] [address]- 2903 Nov, [facility] [place] [facility] [address] [id number] [place] [address]- 2904 Oct, [facility] [place] [facility] [address] [id number] [place] [address]- 9031 Oct, [facility] [place] [facility] [address] [id number] [place] [address]- 8165 Oct, [facility] [place] [facility] [address] [id number] [place] [address]- 0573 September, [facility] [place] [facility] [address] [id number] [place] [address]- 1282 September, [facility] [address] [id number] [place] [address]- 9474 September, [facility] [place] [facility] [address] [id number] [place] [address]- 2033 September, [facility] [place] [facility] [address] [id number] [place] [address]- 6546 September, [facility] [place] [facility] [address] [id number] [place] [address]- 1781 September, [facility] [place] [facility] [address] [id number] [place] [address]- 0191 Aug, [facility] [place] [facility] [address] [id number] [place] [address]- 6501 Aug, [facility] [place] [facility] [address] [id number] [place] [address]- 8523 Aug, [facility] [place] [facility] [address] [id number] [place] [address]- 3609 Jun, [facility] [place] [facility] [address] [id number] [place] [address]- 5908 Jun, [facility] [place] [facility] [address] [id number] [place] [address]- 4057 Jun, [facility] [address] [id number] [place] [address]- 7966 Jun, [facility] [address] [id number] [place] [address]- 4801 May, [facility] [address] [id number] [place] [address]- 5703 May, [facility] [address] [id number] [place] [address]- 9340 May, [facility] [address] [id number] [place] [address]- 4986 May, [facility] [address] [id number] [place] [address]- 9472 May, [facility] [address] [id number] [place] [address]- 7618 Apr, [facility] [address] [id number] [place] [address]- 8040 Apr, [facility] [address] [id number] [place] [address]- 4208 Apr, [facility] [address] [id number] [place] [address]- 3955 Apr, [facility] [address] [id number] [place] [address]- 9648 Apr, [facility] [place] [facility] [address] [id number] [place] [address] Apr, [facility] [place] [facility] [address] [id number] [place] [address]- 7506 Apr, [facility] [place] [facility] [address] [id number] [place] [address]- 8860 Mar, [facility] [place] [facility] [address] [id number], [place] [address]- 6515 Mar, [facility] [place] [facility] [address] [id number] [place] [address]- 7754 Mar, [facility] [place] [facility] [address] [id number] [place] [address]- 9334 Feb, [facility] [place] [facility] [address] [id number] [place] [address]- 9433 Feb, [facility] [place] [facility] [address] [id number] [place] [address]- 2194 Feb, [facility] [place] [facility] [address] [id number] [place] [address]- 8428 Feb, [facility] [place] [facility] [address] [id number] [place] [address]- 7390 Feb, [facility] [place] [facility] [address] [facility] [id number] [place] [address]- 9316 Feb, [facility] [place] [facility] [address] [id number] [place] [address]- 9299 Jan, [facility] [place] [facility] [address] [id number] [place] [address]- 2957 Jan, [facility] [place] [facility] [address] [facility] [id number] [place] [address]- 1282 September, [facility] [place] [facility] [address] [id number], [place] [address]- 5509 Jun, [facility] [place] [facility] [address] [id number], [place] [address]- 7056 Apr, [facility] [place] [facility] [address] [id number] [place] [address]- 5508 Apr, [facility] [place] [facility] [address] [id number] [place] [address]- 8162 Apr, [facility] [place] [facility] [address] [facility] [id number] [place] [address]- 1180 Apr, [facility] [place] [facility] [id number], [place] [address]- 1378 Apr, [facility] [id number] 8414 Mar, [facility] [id number] 5899 Mar, [facility] [id number], [place] [address]- 7280 Mar, [facility] [id number], [place] [address]- 8472 Mar, [facility] [id number] [address] 8981 Feb, [facility] [id number] 5460 15 Jan, 2010 [facility] [id number] [place] [address]- 6820 Mar, [facility] [address], [place] [address]- 8859 15 Jan, 2009 [facility] [address], [place] [address]- 0159 Oct, [facility] [id number] [address] 9918 Apr, IMMUNIZATIONS No Known Immunizations SOCIAL HISTORY Never Assessed REASON FOR VISIT medication request PLAN OF CARE VITAL SIGNS MEDICATIONS [...]
--- OUTSIDE RECORDS SUMMARY | 2018-03-22 22:00 | XMS REPORT ---
Author Author BRITANY BOSCH [facility] Address [address] [place] [address] Care Team Providers Care Sign Painter Helper Name Role Phone RENÉNas BRITANY Unavailable PROBLEMS Type Condition ICD9-CM Code [id number] Code Onset Dates Condition Status SNOMED Code Problem Folliculitis L73.9 Active 82662113 Problem High risk bisexual behavior Z72.53 Active 587212247 Problem Anxiety F41.9 Active 82551073 Problem Acute non-recurrent maxillary sinusitis J01.00 Active 05533141 Problem Other obesity due to excess calories E66.09 Active 670991262 Problem Plantar wart of right foot B07.0 Active 12112359 Problem Other chronic pain G89.29 Active 56607253 Problem Pain in right foot M79.671 Active [id number] Problem Pain in left foot M79.672 Active 413705849486547 Problem Heartburn R12 Active 81685580 Problem Irritable bowel syndrome without diarrhea K58.9 Active 04664852 Problem Bilateral low back pain without sciatica M54.5 Active 393527439 Problem Pre-diabetes R73.03 Active 486680312 Problem Essential hypertension I10 Active 41510602 Problem Long-term use of high-risk medication Z79.899 Active 621286400 Problem Bilateral low back pain, with sciatica presence unspecified M54.5 Active 667623531 Problem Impacted cerumen of right ear H61.21 Active 64355169 ALLERGIES Unknown Allergies SOCIAL HISTORY No smoking Hx information available PLAN OF CARE VITAL SIGNS MEDICATIONS Medication Instructions Dosage Frequency Start Date End Date Duration Status Omeprazole 20 mg Orally Once a day-MUST HAVE APPT 1 capsule 20 Jun, 2014 30 days Active Lisinopril-Hydrochlorothiazide 10-12.5 MG Orally Once a day- MUST HAVE APPT 1 tablet 30 Active RESULTS No Results PROCEDURES No Known procedures IMMUNIZATIONS No Known Immunizations
--- OUTSIDE RECORDS SUMMARY | 2018-03-22 22:00 | XMS REPORT ---
Author Author BRITANY BOSCH Organization [employer] Address Unknown Phone Unavailable Care Team Providers Care Rail Grinder Name Role Phone DANITZA BRITANY CP Unavailable Allergies No Known Allergies Problems [...] Date End Date Status Dosage Tramadol HCl [facility] [address]-94 50 MG Orally every 6 hrs TAKE ONE TABLET Results No Known Results Summary Purpose [employer] Submission
--- OUTSIDE RECORDS SUMMARY | 2018-03-22 22:00 | XMS REPORT ---
Author Author CARIDAD JEVON Organization [facility] Address [address] [place] [address] Care Team Providers Care Agronomy Supervisor Name Role Phone MCLEANJEVON Melendrez Unavailable PROBLEMS Type Condition ICD9-CM Code [id number] Code Onset Dates Condition Status SNOMED Code Problem Folliculitis L73.9 Active 30839084 Problem High risk bisexual behavior Z72.53 Active 890367880 Problem Anxiety F41.9 Active 62128653 Problem Acute non-recurrent maxillary sinusitis J01.00 Active 92983690 Problem Other obesity due to excess calories E66.09 Active 842738735 Problem Plantar wart of right foot B07.0 Active 58953533 Problem Other chronic pain G89.29 Active 21244562 Problem Pain in right foot M79.671 Active [id number] Problem Pain in left foot M79.672 Active 164370932168588 Problem Heartburn R12 Active 86422795 Problem Irritable bowel syndrome without diarrhea K58.9 Active 02770290 Problem Bilateral low back pain without sciatica M54.5 Active 463958636 Problem Pre-diabetes R73.03 Active 384889436 Problem Essential hypertension I10 Active 77172302 Problem Long-term use of high-risk medication Z79.899 Active 322772874 Problem Bilateral low back pain, with sciatica presence unspecified M54.5 Active 594028308 Problem Impacted cerumen of right ear H61.21 Active 74207814 ALLERGIES Substance Reaction Event Type Date Status Penicillin V Potassium anaphylaxis Drug Allergy Jul, Active surgical tape "tears skin off" Non Drug Allergy Jul, Active SOCIAL HISTORY Never Assessed PLAN OF CARE Activity Details Follow Up prn Reason: VITAL SIGNS Height 66 in 2016-07-13 Weight 249 lbs 2016-07-13 Temperature 98.3 degrees Fahrenheit 2016-07-13 Heart Rate 96 bpm 2016-07-13 Respiratory Rate 20 2016-07-13 BMI 40.19 kg/m2 2016-07-13 Blood pressure systolic 100 mmHg 2016-07-13 Blood pressure diastolic 60 mmHg 2016-07-13 MEDICATIONS Medication Instructions Dosage Frequency Start Date End Date Duration Status Bactrim DS 800-160 MG Orally Twice a day 1 tablet 12h May, 10 day(s) Active HydrOXYzine HCl 50 MG Orally bid prn 1/2-1 tablet as needed 30 day (s) Active Esomeprazole Magnesium 20 mg Orally Once a day 1 capsule 24h Jun, 90 days Active MetFORMIN HCl ER 500 MG Orally Once a day 1 tablet with evening meal 24h May, 30 day(s) Active Flexeril 10 mg Orally 2 times a day s needed 1 tablet Active Ibuprofen 800 MG Orally Three times a day 1 tablet 8h 30 Active Lisinopril-Hydrochlorothiazide 20-12.5 MG Orally Once a day 1 tablet 24h 30 Active RESULTS No Results PROCEDURES No [...]
--- OUTSIDE RECORDS SUMMARY | 2018-03-22 22:01 | XMS REPORT ---
Author Author JEVON MCLEAN Organization [facility] Address [address] [place] [address] Care Team Providers Care [employer] Hand Name Role Phone JEVON MCLEAN Unavailable PROBLEMS Type Condition ICD9-CM Code [id number] Code Onset Dates Condition Status SNOMED Code Problem Other chronic pain G89.29 Active 27229477 Problem Pain in left foot M79.672 Active [id number] Problem Plantar wart of right foot B07.0 Active 76106879 Problem Obesity (BMI 30-39.9) E66.9 Active 709775540 Problem Heartburn R12 Active 95347028 Problem Rhinosinusitis J32.9 Active 14232103 Problem Other obesity due to excess calories E66.09 Active 376122729 Problem Pain in right foot M79.671 Active 80614743527019590 Problem Alternating constipation and diarrhea R19.8 Active 088869916 Problem Acute non-recurrent maxillary sinusitis J01.00 Active 06594527 Problem Essential hypertension I10 Active 09419805 Problem Bilateral low back pain without sciatica M54.5 Active 576084241 Problem Irritable bowel syndrome without diarrhea K58.9 Active 34543898 Problem Bilateral low back pain, with sciatica presence unspecified M54.5 Active 841969165 Problem High risk bisexual behavior Z72.53 Active 610303211 Problem Long-term use of high-risk medication Z79.899 Active 356496939 Problem Pre-diabetes R73.03 Active 232920801 Problem Impacted cerumen of right ear H61.21 Active 06119409 Problem Anxiety F41.9 Active 85499820 Problem Folliculitis L73.9 Active 64271135 ALLERGIES Substance Reaction Event Type Date Status Penicillin V Potassium anaphylaxis Drug Allergy Jan, Active surgical tape "tears skin off" Non Drug Allergy Jan, Active ENCOUNTERS Encounter Location Date Diagnosis [facility] [address] [facility] [id number] [address] Aug, [facility] [id number] [place] [address] 15484- 0017 Jul, Bilateral low back pain without sciatica M54.5 [facility] [id number] [place] [address] 44553- 7111 Jun, [facility] [id number] [place] [address] 44362- 1173 Jun, [facility] [id number] [place] [address] 56177- 3932 Jun, [facility] [address] 78434- 5649 May, [facility] [id number] [place] [address] 68036- 4844 May, Ingrown left greater toenail L60.0 [facility] [id number] [place] [address] 15091- 3058 May, [facility] [id number] [place] [address] 47952 -0796 May, Influenza A J10.1 ; Fever R50.9 and Body aches R52 [facility] [id number] [place] [address] 39342- 3548 Apr, [facility] [id number] [place] [address] 41897- 2369 Apr, [facility] [id number] [place] [address] 35449- 0898 Apr, [facility] [id number] [place] [address] 98202- 8096 Apr, Abscess L02.91 and Obesity (BMI 30-39.9) E66.9 [facility] [id number] [place] [address] 58776- 1823 Apr, [facility] [address] [place] [address]- 5059 Apr, [place] [address] 06842- 7311 Mar, Acute non-recurrent maxillary sinusitis J01.00 [place] [address] 94054- 7889 12 Feb, 2017 Heartburn R12 [place] [address] 81619- 9784 Feb, Heartburn R12 ; Low back pain M54.5 ; Essential hypertension I10 ; Bilateral low back pain without sciatica M54.5 ; Anxiety F41.9 ; Pre-diabetes R73.03 ; Other obesity due to excess calories E66.09 ; Alternating constipation and diarrhea R19.8 ; Dyspepsia R10.13 ; Generalized abdominal pain R10.84 ; Rhinosinusitis J32.9 and Boil L02.92 [place] [address] 16695- 2764 Jan, Heartburn R12 [place] [address] 34661- 6145 Jan, [place] [address] 41626- 3444 Jan, [place] [id number] [place] [address] 88579- 2510 Jan, Acute seasonal allergic rhinitis due to pollen J30.1 and Irritable bowel syndrome without diarrhea K58.9 [place] [id number] [place] [address] 09932- 3459 Dec, Low back pain M54.5 and Acute cystitis with hematuria N30.01 [place] [id number] [place] [address] 42390- 4551 Dec, Low back pain M54.5 and Acute cystitis with hematuria N30.01 [place] [address] 58010- 7481 Dec, Heartburn R12 ; Essential hypertension I10 ; Acute non- recurrent maxillary sinusitis J01.00 ; Bilateral low back pain without sciatica M54.5 ; Anxiety F41.9 ; Pre-diabetes R73.03 ; Pain in right foot M79.671 ; Pain in left foot M79.672 ; Other obesity due to excess calories E66.09 and Acute cystitis with hematuria N30.01 [place] [address] 52737- 2904 Dec, Bilateral low back pain without sciatica M54.5 ; Acute non- recurrent maxillary sinusitis J01.00 and Pre-diabetes R73.03 [place] [address] 32849- 4973 Oct, [facility] [address] [address]97 Aug, [facility] [address] 76001 -9808 Aug, Acute vaginitis N76.0 ; Urinary frequency R35.0 ; Screen for STD (sexually transmitted disease) Z11.3 and Abscess L02.91 [place] [address] 89260- 9656 Aug, Plantar wart of right foot B07.0 [place] [address] 16798- 7331 Jul, Plantar wart of right foot B07.0 [place] [address] 64241- 7286 Jun, [place] [address] 14099- 7194 Jun, Heartburn R12 ; Essential hypertension I10 ; Anxiety F41.9 ; Folliculitis L73.9 and Plantar wart of right foot B07.0 [place] [address] 69718- 8613 Jun, [facility] [id number] [place] [address] 90732 -3431 May, Low back pain M54.5 and Other chronic pain G89.29 [place] [address] 39473- 0778 May, [place] [address] 57715- 1997 May, [place] [address] 26899- 3989 May, Heartburn R12 ; Bilateral low back pain without sciatica M54.5 ; Essential hypertension I10 ; Long-term use of high-risk medication Z79.899 ; Anxiety F41.9 ; Impacted cerumen of right ear H61.21 ; Folliculitis L73.9 ; High risk bisexual behavior Z72.53 and General medical exam Z00.00 [place] [id number] [place] [address] 58545- 9334 May, [place] [address] 98461- 5937 May, [place] [address] 72398- 7964 Mar, Acute nasopharyngitis J00 ; Acute intractable tension-type headache G44.201 and Cough R05 [place] [id number] [place] [address] 54242- 3873 Jan, [facility] [id number] [place] [address] 89889 -0832 Jan, Abscess L02.91 [facility] [place] [id number] [place] [address] 83666 -4726 10 Jan, 2016 Urinary urgency R39.15 and Urinary tract infection without hematuria, site unspecified N39.0 [place] [address] 25245- 1829 Jan, [facility] [address] [address]- 6992 Jan, [facility] [id number] [place] [address] 73074- 9402 Dec, [facility] [id number] [place] [address] 59809- 1091 Dec, Dermatofibroma D23.9 [facility] [id number] [place] [address] 57307- 4751 September, [facility] [id number] [place] [address] 26337- 3918 Aug, [facility] [id number] [place] [address] 09979- 5222 Aug, Pain in left knee M25.562 ; Heartburn R12 ; Bilateral low back pain without sciatica M54.5 ; Essential hypertension I10 ; Ingrown left big toenail L60.0 ; Chronic pain G89.29 ; Irritable bowel syndrome with constipation K58.9 and Skin infection L08.9 [facility] [address], [place] [address]- 0593 Aug, [facility] [address], [place] [address]- 8262 Jul, [facility] [address], [place] [address]- 3788 Jun, [facility] [address], [place] [address]- 1560 Jun, [facility] [id number] [place] [address] 81540- 2096 Jun, [facility] [address], [place] [address]- 8473 Jun, [facility] [id number] [place] [address] 61013- 5900 Jun, Upper respiratory infection J06.9 ; Bilateral low back pain without sciatica M54.5 and Headache R51 [facility] [id number] [place] [address] 37149- 8780 May, [facility] [id number] [place] [address] 98562- 0211 Apr, Bilateral low back pain without sciatica M54.5 ; Upper respiratory infection J06.9 and Yeast dermatitis B37.2 [facility] [id number] [place] [address] 06418- 5357 Apr, [facility] [id number] [place] [address] 97956- 3278 Apr, [facility] [id number] [place] [address] 08689- 9231 Feb, [facility] [id number] [place] [address] 72186- 7317 Feb, [facility] [id number] [place] [address] 16069- 6075 Feb, [facility] [id number] [place] [address] 38142- 0638 Feb, Essential hypertension I10 ; Heartburn R12 ; Irritable bowel syndrome without diarrhea K58.9 ; Bilateral low back pain, with sciatica presence unspecified M54.5 and Upper respiratory infection J06.9 [facility] [id number] [place] [address] 38769- 0527 Feb, [facility] [id number] [place] [address] 26770- 5101 Feb, Generalized anxiety disorder F41.1 and Grief F43.20 [facility] [id number] [place] [address] 66802- 1421 Jan, [facility] [id number] [place] [address] 75486- 1278 Jan, Back pain 724.5 ; Upper respiratory infection 465.9 ; HTN ( hypertension) 401.9 and Dyspepsia 536.8 [place] [id number] [place] [address] 05390- 9225 Dec, [facility] [id number] [place] [address] 32091- 4198 Nov, Back pain 724.5 ; Abdominal pain, bilateral lower quadrant 789.03 ; GERD (gastroesophageal reflux disease) 530.81 ; Upper respiratory infection 465.9 ; Dysuria 788.1 and HTN (hypertension) 401.9 [place] [id number] [place] [address] 23229- 0434 Nov, [place] [address] 98529- 8788 Nov, [place] [id number] [place] [address] 55421- 6365 Nov, [place] [id number] [place] [address] 61595- 8570 Nov, Cough 786.2 [place] [id number] [place] [address] 35595- 5936 Nov, Cough 786.2 [place] [id number] [place] [address] 90130- 0021 Oct, Unspecified episodic mood disorder 296.90 and Anxiety disorder, unspecified 300.00 [place] [id number] [place] [address] 96614- 4169 Oct, Abdominal pain, left upper quadrant 789.02 ; Essential hypertension, benign 401.1 ; Irritable bowel syndrome 564.1 ; Abscess 682.9 ; Heartburn 787.1 ; Acute sinusitis, unspecified 461.9 ; Muscle spasm of back 724.8 ; Cough 786.2 and Skin tag 701.9 [place] [id number] [place] [address] 58999- 0364 September, [place] [address] [place] [address]- 4414 September, [facility] [place] [facility] [address] [id number] [place] [address]- 2968 September, [facility] [place] [facility] [address] [id number] [place] [address]- 7012 Aug, [facility] [place] [facility] [address] [id number] [place] [address]- 6743 Aug, [facility] [place] [facility] [address] [id number] [place] [address]- 0911 30 Jul, 2014 [facility] [place] [facility] [address] [id number] [place] [address]- 4407 30 Jul, 2014 [facility] [place] [facility] [address] [id number] [place] [address]- 5163 Jul, [facility] [place] [facility] [address] [id number] [place] [address]- 1388 Jul, [facility] [place] [facility] [address] [id number] [place] [address]- 7972 Jul, [facility] [place] [facility] [address] [id number] [place] [address]- 5900 Jul, [facility] [place] [facility] [address] [id number] [place] [address]- 7690 Jul, [facility] [place] [facility] [address] [id number] [place] [address]- 5317 Jul, [facility] [place] [facility] [address] [id number] [place] [address]- 6448 Jul, [facility] [place] [facility] [address] [id number] [place] [address]- 7822 Jul, [facility] [place] [facility] [address] [id number] [place] [address]- 0092 Jul, [facility] [place] [facility] [address] [id number] [place] [address]- 4622 Jul, [facility] [place] [facility] [address] [id number] [place] [address]- 6762 Jul, 2014 [facility] [place] [facility] [address] [id number] [place] [address]- 0720 Jul, 2014 [facility] [place] [facility] [address] [id number] [place] [address]- 2517 Jul, 2014 [facility] [place] [facility] [address] [id number] [place] [address]- 3411 Jul, 2014 [facility] [place] [facility] [address] [id number] [place] [address]- 1909 Jul, 2014 [facility] [place] [facility] [address] [id number] [place] [address]- 3848 Jun, 2014 [facility] [place] [facility] [address] [id number] [place] [address]- 4564 Jun, 2014 [facility] [place] [facility] [address] [id number] [place] [address]- 6789 Jun, 2014 [facility] [place] [facility] [address] [id number] [place] [address]- 9713 Jun, 2014 [facility] [place] [facility] [address] [id number] [place] [address]- 1901 Jun, 2014 [facility] [place] [facility] [address] [id number] [place] [address]- 9571 Jun, 2014 [facility] [place] [facility] [address] [id number] [place] [address]- 5808 Jun, [facility] [place] [facility] [address] [id number] [place] [address]- 5764 Jun, [facility] [place] [facility] [address] [id number] [place] [address]- 6605 Apr, [facility] [place] [facility] [address] [id number] [place] [address]- 1990 Apr, [facility] [place] [facility] [address] [id number] [place] [address]- 7809 23 Apr, 2014 [facility] [place] [facility] [address] [id number] [place] [address]- 0192 23 Apr, 2014 [facility] [place] [facility] [address] [id number] [place] [address]- 5516 18 Apr, 2014 [facility] [place] [facility] [address] [id number] [place] 5006 18 Apr, 2014 [facility] [place] [facility] [address] [id number] [place] [address]- 0048 15 Apr, 2014 [facility] [place] [facility] [address] [id number] [place] [address]- 3340 15 Apr, 2014 [facility] [place] [facility] [address] [id number] [place] [address]- 5696 12 Apr, 2014 [facility] [place] [facility] [address] [id number] [place] [address]- 7514 12 Apr, 2014 [facility] [place] [facility] [address] [id number] [place] [address]- 2101 Apr, [facility] [place] [facility] [address] [id number] [place] [address]- 4254 Apr, [facility] [place] [facility] [address] [id number] [place] [address]- 7657 Apr, [facility] [place] [facility] [address] [id number] [place] [address]- 5144 04 Apr, 2014 [facility] [place] [facility] [address] [id number] [place] [address]- 6695 Apr, [facility] [place] [facility] [address] [id number] [place] [address]- 5530 Feb, [facility] [place] [facility] [address] [id number] [place] [address]- 3285 Feb, [facility] [place] [facility] [address] [id number] [place] [address]- 0113 Feb, [facility] [place] [facility] [address] [id number] [place] [address]- 6078 Feb, [facility] [place] [facility] [address] [id number] [place] [address]- 9132 Feb, [facility] [place] [facility] [address] [id number] [place] [address]- 9230 Feb, [facility] [place] [facility] [address] [id number] [place] [address]- 6393 Jan, [facility] [place] [facility] [address] [id number] [place] [address]- 2211 Jan, 2013 [facility] [place] [facility] [address] [id number] [place] [address]- 2456 Jan, [facility] [place] [facility] [address] [id number] [place] [address]- 4292 Jan, [facility] [place] [facility] [address] [id number] [place] [address]- 4615 Jan, [facility] [place] [facility] [address] [id number] [place] [address]- 1590 Jan, [facility] [place] [facility] [address] [id number] [place] [address]- 6889 Dec, [facility] [place] [facility] [address] [id number] [place] [address]- 2465 Dec, [facility] [place] [facility] [address] [id number] [place] [address]- 7518 Dec, [facility] [place] [facility] [address] [id number] [place] [address]- 2085 Dec, [facility] [place] [facility] [address] [id number] [place] [address]- 3033 Nov, [facility] [place] [facility] [address] [id number] [place] [address]- 2088 Nov, [facility] [place] [facility] [address] [id number] [place] [address]- 8605 Nov, [facility] [place] [facility] [address] [id number] [place] [address]- 1979 Nov, [facility] [place] [facility] [address] [id number] [place] [address]- 4956 Nov, [facility] [place] [facility] [address] [id number] [place] [address]- 6440 Nov, [facility] [place] [facility] [address] [id number] [place] [address]- 6081 Nov, [facility] [place] [facility] [address] [id number] [place] [address]- 8766 Nov, [facility] [place] [facility] [address] [id number] [place] [address]- 6875 Oct, [facility] [place] [facility] [address] [id number] [place] [address]- 4869 Oct, [facility] [place] [facility] [address] [id number] [place] [address]- 1960 Oct, [facility] [place] [facility] [address] [id number] [place] [address]- 5458 Oct, [facility] [place] [facility] [address] [id number] [place] [address]- 8428 Oct, [facility] [place] [facility] [address] [id number] [place] [address]- 8684 Oct, [facility] [place] [facility] [address] [id number] [place] [address]- 7284 Oct, [facility] [place] [facility] [address] [id number] [place] [address]- 0136 Oct, [facility] [place] [facility] [address] [id number] [place] [address]- 8367 Oct, [facility] [place] [facility] [address] [id number] [place] [address]- 3356 Oct, [facility] [place] [facility] [address] [id number] [place] [address]- 3635 23 Oct, 2013 [facility] [place] [facility] [address] [id number] [place] [address]- 3839 23 Oct, 2013 [facility] [place] [facility] [address] [id number] [place] [address]- 4073 18 Oct, 2013 [facility] [place] [facility] [address] [id number] [place] [address]- 6036 18 Oct, 2013 [facility] [place] [facility] [address] [id number] [place] [address]- 3333 17 Oct, 2013 [facility] [place] [facility] [address] [id number] [place] [address] 17 Oct, 2013 [facility] [place] [facility] [address] [id number] [place] [address] 16 Oct, 2013 [facility] [place] [facility] [address] [id number] [place] [address] 16 Oct, 2013 [facility] [place] [facility] [address] [id number] [place] [address] 13 Oct, 2013 [facility] [place] [facility] [address] [id number] [place] [address] Oct, [facility] [place] [facility] [address] [id number] [place] [address] Oct, [facility] [place] [facility] [address] [id number] [place] [address] Oct, [facility] [place] [facility] [address] [id number] [place] [address] Oct, [facility] [place] [facility] [address] [id number] [place] [address] Oct, [facility] [place] [facility] [address] [id number] [place] [address] 06 Oct, 2013 [facility] [place] [facility] [address] [id number] [place] [address] Oct, [facility] [place] [facility] [address] [id number] [place] [address] Oct, [facility] [place] [facility] [address] [id number] [place] [address]- [address] Oct, [facility] [place] [facility] [address] [id number] [place] [address]- [address] Oct, [facility] [place] [facility] [address] [id number] [place] [address]- [address] Oct, [facility] [place] [facility] [address] [id number] [place] [address] September, [facility] [place] [facility] [address] [id number] [place] [address] September, [facility] [place] [facility] [address] [id number] [place] [address] September, [facility] [place] [facility] [address] [id number] [place] [address]- [address] September, [facility] [place] [facility] [address] [id number] [place] [address] 79[address] September, [facility] [place] [facility] [address] [id number] [place] [address]- [address] September, [facility] [place] [facility] [address] [id number] [place] [address]- [address] September, [facility] [place] [facility] [address] [id number] [place] [address]- [address] September, [facility] [place] [facility] [address] [id number] [place] [address]- [address] September, [facility] [place] [facility] [address] [id number] [place] [address]- 7971 September, [facility] [place] [facility] [address] [id number] [place] [address]- [address] September, [facility] [place] [facility] [address] [id number] [place] [address]- [address] September, [facility] [address] [id number] [place] [address] September, [facility] [place] [facility] [address] [id number] [place] [address]696 September, [facility] [place] [facility] [address] [id number] [place] [address]- [address] September, [facility] [place] [facility] [address] [id number] [place] [address]- [address]10 September, [facility] [place] [facility] [address] [id number] [place] [address] September, [facility] [place] [facility] [address] [id number] [place] [address]- [address] September, [facility] [place] [facility] [address] [id number] [place] [address]- [address] Aug, [facility] [place] [facility] [address] [id number] [place] [address] Aug, [facility] [place] [facility] [address] [id number] [place] [address]- [address] Aug, [facility] [place] [facility] [address] [id number] [place] [address]- [address] Aug, [facility] [place] [facility] [address] [id number] [place] [address] Aug, [facility] [place] [facility] [address] [id number] [place] [address]- [address] Aug, [facility] [place] [facility] [address] [id number] [place] [address] Jul, [facility] [place] [facility] [address] [id number] [place] [address]- [address] Jul, [facility] [place] [facility] [address] [id number] [place] [address] Jul, [facility] [place] [facility] [address] [id number] [place] [address] Jul, [facility] [place] [facility] [address] [id number] [place] [address]- [address] Jun, [facility] [place] [facility] [address] [id number] [place] [address]- [address] Jun, [facility] [place] [facility] [address] [address] [id number] [place] [address] Jun, [facility] [place] [facility] [address] [id number] [place] [address] Jun, [facility] [place] [facility] [address] [id number] [place] [address] Mar, [facility] [place] [facility] [address] [id number] [place] [address]233 Mar, [facility] [place] [facility] [address] [id number] [place] [address] 1916 Mar, [facility] [place] [facility] [address] [id number] [place] [address] 6536 Mar, [facility] [place] [facility] [address] [id number] [place] [address] 1947 Feb, [facility] [place] [facility] [address] [id number] [place] [address] 1712 Feb, [facility] [place] [facility] [address] [id number] [place] [address] 6504 Feb, [facility] [place] [facility] [address] [id number] [place] [address] 2455 Jan, [facility] [place] [facility] [address] [id number] [place] [address] 5702 20 Jan, 2013 [facility] [place] [facility] [address] [id number] [place] [address] 8342 12 Jan, 2013 [facility] [place] [facility] [address] [id number] [place] [address] 9076 Jan, [facility] [place] [facility] [address] [id number] [place] [address]- 1009 Dec, [facility] [place] [facility] [address] [id number] [place] [address] 1750 Dec, [facility] [place] [facility] [address] [id number] [place] [address] 8018 Dec, [facility] [place] [facility] [address] [id number] [place] [address]- 0610 Dec, [facility] [place] [facility] [address] [id number] [place] [address] 0450 Nov, [facility] [place] [facility] [address] [id number] [place] [address] 4077 Nov, [facility] [place] [facility] [address] [id number] [place] [address]- 9977 Nov, [facility] [place] [facility] [address] [id number] [place] [address] 6497 Nov, [facility] [place] [facility] [address] [id number] [place] [address]- 0421 Nov, [facility] [place] [facility] [address] [id number] [place] [address] 7095 Nov, [facility] [place] [facility] [address] [id number] [place] [address] 8432 Oct, [facility] [place] [facility] [address] [id number] [place] [address] 3903 Oct, [facility] [place] [facility] [address] [id number] [place] [address]- 2589 Oct, [facility] [place] [facility] [address] [id number] [place] [address]- 0582 Oct, [facility] [place] [facility] [address] [id number] [place] [address] 4146 Oct, [facility] [place] [facility] [address] [id number] [place] [address]- 4572 16 Oct, 2012 [facility] [address] [id number] [place] [address]- 5682 14 Oct, 2012 [facility] [address] [id number] [place] [address] 9887 13 Oct, 2012 [facility] [address] [id number] [place] [address] 8767 Oct, [facility] [address] [id number] [place] [address] 2550 07 Oct, 2012 [facility] [address] [id number] [place] [address] 7974 September, [facility] [address] [id number] [place] [address] 4401 September, [facility] [address] [id number] [place] [address] 3140 September, [facility] [address] [id number] [place] [address] 7395 Aug, [facility] [address] [id number] [place] [address] 9034 Aug, [facility] [address] [id number] [place] [address] 0302 Aug, [facility] [address] [id number] [place] [address]- 3441 Aug, [facility] [address] [id number] [place] [address]- 3848 Jul, [facility] [address] [id number] [place] [address]- 4507 29 Jul, 2012 [facility] [address] [id number] [place] [address]- 9584 Jul, [facility] [address] [id number] [place] [address]- 6704 Jul, [facility] [address] [id number] [place] [address]- 3098 Jul, [facility] [place] [facility] [address] [id number] [place] [address]- 4636 Jul, [facility] [place] [facility] [address] [id number] [place] [address]- 6192 May, [facility] [place] [facility] [address] [id number] [place] [address]- 2834 May, [facility] [address] [id number] [place] [address]- 6297 May, [facility] [place] [facility] [address] [id number] [place] [address]- 1324 May, [facility] [address] [id number] [place] [address]- 3044 May, [facility] [address] [id number] [place] [address]- 6578 May, [facility] [place] [facility] [address] [id number] [place] [address]- 4914 May, [facility] [address] [id number] [place] [address]- 4544 May, [facility] [place] [facility] [address] [id number] [place] [address]- 3786 May, [facility] [place] [facility] [address] [id number], [place] [address] 6[address] 17 May, 2012 [facility] [place] [facility] [address] [id number] [place] [address]- 4028 May, [facility] [place] [facility] [address] [id number] [place] [address]- 3446 Apr, [facility] [place] [facility] [address] [id number], [place] [address]- 7645 Apr, [facility] [place] [facility] [address] [id number], [place] [address]- 4383 Apr, [facility] [place] [facility] [address] [id number] [place] [address]- 7780 Apr, [facility] [place] [facility] [address] [id number] [place] [address]- 6859 Apr, [facility] [place] [facility] [address] [facility] [id number] [place] [address]- 2129 Apr, [facility] [place] [facility] [address] [id number] [place] [address]- 3278 Mar, [facility] [place] [facility] [address] [id number] [place] [address]- 0726 Mar, [facility] [place] [facility] [address] [facility] [id number] [place] [address]- 0810 Mar, [facility] [place] [facility] [address] [id number] [address]- [address]79 Mar, [facility] [place] [facility] [address] [facility] [id number] [place] [address]- 5288 Mar, [facility] [place] [facility] [address] [facility] [id number] [place] [address]- 4432 Mar, [facility] [place] [facility] [address] [facility] [id number] [place] [address]- 6517 Mar, [facility] [place] [facility] [address] [facility] [id number], [place] [address]- 6790 Mar, [facility] [place] [facility] [address] [facility] [id number], [place] [address]- 7264 Feb, [facility] [place] [facility] [address] [id number] [place] [address]- 2570 Feb, [facility] [place] [facility] [address] [facility] [id number], [place] [address]- 2426 16 Feb, 2012 [facility] [place] [facility] [address] [facility] [id number], [place] [address]- 1933 15 Feb, 2012 [facility] [place] [facility] [address] [id number] [place] [address]- 4677 15 Feb, 2012 [facility] [place] [facility] [address] [id number] [place] [address]- 5244 13 Feb, 2012 [facility] [place] [facility] [address] [id number] [place] [address]- 9166 Feb, [facility] [place] [facility] [address] [id number] [place] [address]- 9448 Feb, [facility] [place] [facility] [address] [id number] [place] [address]- 3761 Feb, [facility] [place] [facility] [address] [id number] [place] [address]- 2205 Feb, [facility] [place] [facility] [address] [id number] [place] [address]- 1245 Feb, [facility] [place] [facility] [address] [id number] [place] [address]- 1539 Feb, [facility] [place] [facility] [address] [id number] [place] [address]- 0547 Feb, [facility] [place] [facility] [address] [id number] [place] [address]- 6225 Feb, [facility] [place] [facility] [address] [id number] [place] [address]- 0435 Feb, [facility] [place] [facility] [address] [id number] [place] [address]- 8138 Feb, [facility] [place] [facility] [address] [id number] [place] [address]- 0053 09 Feb, 2012 [facility] [place] [facility] [address] [id number] [place] 04 Feb, 2012 [facility] [place] [facility] [address] [id number] [place] [address]- 4326 19 Jan, 2012 [facility] [place] [facility] [address] [id number] [place] [address]- 0825 13 Jan, 2012 [facility] [place] [facility] [address] [id number] [place] [address]- 9994 11 Jan, 2012 [facility] [place] [facility] [address] [id number] [place] [address]- 2442 10 Jan, 2012 [facility] [place] [facility] [address] [id number] [place] [address]- 7297 05 Jan, 2012 [facility] [place] [facility] [address] [id number] [place] [address]- 4278 Dec, [facility] [place] [facility] [address] [id number] [place] [address]- 6496 Dec, [facility] [place] [facility] [address] [id number] [place] [address]- 0466 Dec, [facility] [place] [facility] [address] [id number] [place] [address]- 2554 Dec, [facility] [place] [facility] [address] [id number] [place] [address]- 0289 Dec, [facility] [place] [facility] [address] [id number] [place] [address]- 7765 Dec, [facility] [place] [facility] [address] [id number] [place] [address]- 0256 Nov, [facility] [place] [facility] [address] [id number] [place] [address]- 4637 Nov, [facility] [place] [facility] [address] [id number], [place] [address]- 8290 Nov, [facility] [place] [facility] [address] [id number] [place] [address]- 9698 Nov, [facility] [place] [facility] [address] [id number] [place] [address]- 1498 Nov, [facility] [place] [facility] [address] [id number] [place] [address]- 5507 Oct, [facility] [place] [facility] [address] [id number] [place] [address]- 9417 Oct, [facility] [address] [id number] [place] [address]- 9921 Oct, [facility] [place] [facility] [address] [id number] [place] [address]- 0569 September, [facility] [place] [facility] [address] [id number] [place] [address]- 5009 September, [facility] [place] [facility] [address] [id number] [place] [address]- 3244 September, [facility] [place] [facility] [address] [id number] [place] [address]- 6611 September, [facility] [place] [facility] [address] [id number] [place] [address]- 1086 September, [facility] [address] [id number] [place] [address]- 3382 September, [facility] [place] [facility] [address] [id number] [place] [address]- 3978 Aug, [facility] [place] [facility] [address] [id number] [place] [address]- 2304 Aug, [facility] [place] [facility] [address] [id number] [place] [address]- 6354 Aug, [facility] [place] [facility] [address] [id number] [place] [address]- 8253 Jun, [facility] [place] [facility] [address] [id number] [place] [address]- 2060 Jun, [facility] [place] [facility] [address] [id number] [place] [address]- 6308 Jun, [facility] [place] [facility] [address] [id number] [place] [address]- 6231 Jun, [facility] [place] [facility] [address] [id number] [place] [address]- 7467 May, [facility] [address] [id number] [place] [address]- 3541 May, [facility] [place] [facility] [address] [id number] [place] [address]- 6309 May, [facility] [place] [facility] [address] [id number] [place] [address]- 3351 May, [facility] [place] [facility] [address] [id number] [place] [address]- 2204 May, [facility] [address] [id number] [place] [address]- 0722 Apr, [facility] [place] [facility] [address] [id number] [place] [address]- 0559 Apr, [facility] [place] [facility] [address] [id number] [place] [address]- 0959 Apr, [facility] [place] [facility] [address] [id number] [place] [address]- 5817 Apr, [facility] [place] [facility] [address] [id number] [place] [address]- 4664 Apr, [facility] [place] [facility] [address] [id number], [place] [address]- 6803 Apr, [facility] [place] [facility] [address] [id number], [place] [address]- 6003 Apr, [facility] [place] [facility] [address] [id number], [place] [address]- 6123 Mar, [facility] [place] [facility] [address] [id number] [place] [address]- 7073 Mar, [facility] [place] [facility] [address] [id number], [place] [address]- 2562 15 Mar, 2011 [facility] [place] [facility] [address] [id number], [place] [address]- 8715 26 Feb, 2011 [facility] [place] [facility] [address] [id number], [place] [address]- 6272 24 Feb, 2011 [facility] [address] [id number] [place] [address]- 2114 Feb, [facility] [place] [facility] [address] [id number] [place] [address]- 6056 Feb, [facility] [place] [facility] [address] [id number] [place] [address]- 9036 18 Feb, 2011 [facility] [place] [facility] [address] [id number] [place] [address]- 0247 17 Feb, 2011 [facility] [place] [facility] [address] [id number] [place] [address]- 4564 Jan, [facility] [place] [facility] [address] [id number] [place] [address]- 7516 Jan, [facility] [address] [id number] [place] [address]- 1470 September, [facility] [place] [facility] [address] [id number] [place] [address]- 6440 Jun, [facility] [place] [facility] [address] [id number] [place] [address]- 2784 Apr, [facility] [place] [facility] [address] [id number] [place] [address]- 1361 Apr, [facility] [place] [facility] [address] [id number] [place] [address]- 5880 Apr, [facility] [place] [facility] [address] [id number] [place] [address]- 254 Apr, [facility] [place] [facility] [address] [id number] [place] 4964 Apr, [facility] [place] [facility] [address] [facility] [id number] [place] 3230 Mar, [facility] [place] [facility] [address] [facility] [id number] [place] [address]- 0350 Mar, [facility] [place] [facility] [address] [id number], [place] [address]- 2546 Mar, [facility] [id number], [place] [address] 2546 Mar, [facility] [id number], [place] [address]- 2546 Feb, [facility] [id number], [place] [address]- 4276 Jan, [facility] [id number], [place] [address]- 2456 Mar, [facility] [id number] [place] [address] 1508 Jan, [facility] [id number], [place] [address]- 0672 Oct, [facility] [id number], [place] [address]- 6766 Apr, IMMUNIZATIONS Vaccine Route Administration Date Status DEXAMETHASONE 4MG/ML (PER 1 MG) IM Intramuscular Jan 29, 2017 Administered DEPO MEDROL 40 MG/ML IM Intramuscular Jan 29, 2017 Administered SOCIAL HISTORY Never Assessed REASON FOR VISIT Cough, congestion, chest tightness---DBennettRN, treated with antibiotics but no relief, requeting another antibiotic, zrytec D, and cough syrup PLAN OF CARE Activity Details Follow Up prn Reason: VITAL SIGNS Height 66 in 2017-01-29 Weight 236 lbs 2017-01-29 Temperature 98.7 degrees Fahrenheit 2017-01-29 Heart Rate 80 bpm 2017-01-29 Respiratory Rate 20 2017-01-29 BMI 38.09 kg/m2 2017-01-29 Blood pressure systolic 122 mmHg 2017-01-29 Blood pressure diastolic 90 mmHg 2017-01-29 MEDICATIONS Medication Instructions Dosage Frequency Start Date End Date Duration Status Sudafed 12 Hour 120 MG Orally every 12 hrs 1 tablet as needed 12h 10 days Active Promethazine-Codeine 6.25-10 MG/5ML Orally at hs 5 ml as needed Jan 10 days Active Actos 30 MG Orally Once a day 1/2 tablet 24h Dec, Active Dicyclomine HCl 10 mg Orally 3 times a day TAKE ONE CAPSULE BY MOUTH THREE TIMES DAILY 8h 28 Jan, 2017 10 days Active Sudafed 12 Hour 120 MG Orally every 12 hrs 1 tablet as needed 12h 18 Jan, 2017 10 days Active Zyrtec Allergy 10 mg Orally Once a day 1 tablet 24h 30 day(s) Active Lisinopril 20 mg Orally Once a day 1 tablet 24h Dec, 30 day(s) Active Flexeril 10 mg Orally 2 times a day s needed 1 tablet Active Ibuprofen 800 MG Orally Three times a day 1 tablet 8h 30 Active RESULTS No Results PROCEDURES Procedure Date Ordered Result Body Site DEPO MEDROL 40 MG/ML Jan 29, 2017 DEXAMETHASONE 4MG/ML (PER 1 MG) Jan 29, 2017 THER/PROPH/DIAG INJ, SC/IM Jan 29, 2017 INSTRUCTIONS MEDICATIONS ADMINISTERED No Known Medications [...]
--- OUTSIDE RECORDS SUMMARY | 2018-03-22 22:01 | XMS REPORT ---
Author ALF [facility] [employer] Address Unknown Phone Unavailable Care Team Providers Care Green Marketer Name Role Phone ALF ORONA CP Unavailable Allergies, Adverse Reactions, Alerts Substance Reaction Event Type Penicillin V Potassium anaphylaxis Drug Allergy surgical tape "tears skin off" Non Drug Allergy Problems Problem Type Condition Code Onset Dates Condition Status Assessment Acute nasopharyngitis J00 Active Problem Bilateral low back pain, with sciatica presence unspecified M54.5 Active Problem Upper respiratory infection J06.9 Active Assessment Cough R05 Active Assessment Acute intractable tension-type headache G44.201 Active Problem Ingrown left big toenail L60.0 Active Problem Bilateral low back pain without sciatica M54.5 Active Problem Pain in left knee M25.562 Active Problem Heartburn R12 Active Problem Irritable bowel syndrome without diarrhea K58.9 Active Problem Yeast dermatitis B37.2 Active Problem Essential hypertension I10 Active Medications Medication Code System Code Instructions Start Date End Date Status Dosage Flexeril [facility] [address]-92 10 MG Orally 2 times a day s needed 1 tablet Ibuprofen [facility] 55167244743 800 MG Orally Three times a day-MUST HAVE APPT 1 tablet Zyrtec Allergy [facility] [address]-76 10 mg Orally Once a day Apr 03, 2016 May 03, 2016 1 tablet Benzonatate [facility] [address]-81 200 mg Orally Three times a day Apr 03, 2016 Apr 13, 2016 1 capsule Omeprazole [facility] [address]-10 20 mg Orally Once a day-MUST HAVE APPT Jun 1 capsule Lisinopril-Hydrochlorothiazide [facility] [address]-89 10-12.5 MG Orally Once a day- MUST HAVE APPT 1 tablet Procedures Procedure Coding System Code Date Office Visit, Est Pt., Level 3 CPT-4 14100 Apr 03, 2016 TORADOL (IM) 60 MG/2ML (UP TO 15 MG) CPT-4 J1885 Apr 03, 2016 INFLUENZA ASSAY W/OPTIC CPT-4 93971 Apr 03, 2016 THER/PROPH/DIAG INJ, SC/IM CPT-4 97676 Apr 03, 2016 Vital Signs Date/Time: Apr 03, 2016 Cardiac Monitoring Heart Rate 80 bpm Weight 259.9 lbs Height 66 in BMI 41.94 Index Blood Pressure Diastolic 78 mmHg Blood Pressure Systolic 118 mmHg Results Name Result Date Reference Range Unit Abnormality Flag INFLUENZA A & B (IN HOUSE) ----Exp date [id number] ----INFLUENZA A Negative [id number] ----INFLUENZA B Negative [id number] ----Control + [id number] ----Lot # [id number] Summary Purpose eClinicalWorks Submission
--- OUTSIDE RECORDS SUMMARY | 2018-03-22 22:02 | XMS REPORT ---
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 Name Role Phone WILLIAM TIFFANI Unavailable PROBLEMS Type Condition ICD9-CM Code KVM37-BP Code Onset Dates Condition Status SNOMED Code Problem Other chronic pain G89.29 Active 69861929 Problem Pain in left foot M79.672 Active 050611996959829 Problem Plantar wart of right foot B07.0 Active 95408649 Problem Obesity (BMI 30-39.9) E66.9 Active 429082158 Problem Heartburn R12 Active 77580977 Problem Rhinosinusitis J32.9 Active 94575853 Problem Other obesity due to excess calories E66.09 Active 587095878 Problem Pain in right foot M79.671 Active 42888280468520853 Problem Alternating constipation and diarrhea R19.8 Active 573996666 Problem Acute non-recurrent maxillary sinusitis J01.00 Active 38103164 Problem Essential hypertension I10 Active 20980989 Problem Bilateral low back pain without sciatica M54.5 Active 499964061 Problem Irritable bowel syndrome without diarrhea K58.9 Active 50653374 Problem Bilateral low back pain, with sciatica presence unspecified M54.5 Active 835164694 Problem High risk bisexual behavior Z72.53 Active 972299960 Problem Long-term use of high-risk medication Z79.899 Active 613842123 Problem Pre-diabetes R73.03 Active 598891525 Problem Impacted cerumen of right ear H61.21 Active 33443090 Problem Anxiety F41.9 Active 13667145 Problem Folliculitis L73.9 Active 43254333 ALLERGIES Substance Reaction Event Type Date Status Penicillin V Potassium anaphylaxis Drug Allergy May, Active surgical tape "tears skin off" Non Drug Allergy May, Active ENCOUNTERS Encounter Location Date Diagnosis [facility] [address] [facility] [id number] [address] Nov, [facility] [address] [id number] [place] [address] 97337- 7059 Oct, Abscess of groin, left L02.214 and Pre-diabetes R73.03 [facility] [id number] [place] [address] 14470- 7126 September, Pre-diabetes R73.03 [facility] [address] [address]64- 69[address] Aug, [facility] [id number] [place] [address] 70871- 3542 Jul, Bilateral low back pain without sciatica M54.5 [facility] [address] 05823- 6738 Jun, [facility] [address] 90018- 6194 Jun, [facility] [id number] [place] [address] 20901- 9337 Jun, [facility] [address] 58203- 1813 May, [facility] [id number] [place] [address] 09185- 3786 May, Ingrown left greater toenail L60.0 [facility] [address] 75636- 0087 May, [facility] [id number] [place] [address] 98118 -5737 May, Influenza A J10.1 ; Fever R50.9 and Body aches R52 [facility] [id number] [place] [address] 07260- 7682 Apr, [facility] [address] 52462- 9456 Apr, [place] [id number] [place] [address] 25482- 1050 Apr, [place] [address] 24746- 9408 Apr, Abscess L02.91 and Obesity (BMI 30-39.9) E66.9 [place] [address] 30762- 0972 Apr, [place] [address] 55669- 3506 Apr, [place] [address] 43223- 9945 Mar, Acute non-recurrent maxillary sinusitis J01.00 [place] [address] 38220- 6751 Feb, Heartburn R12 [place] [address] 57521- 1596 Feb, Heartburn R12 ; Low back pain M54.5 ; Essential hypertension I10 ; Bilateral low back pain without sciatica M54.5 ; Anxiety F41.9 ; Pre-diabetes R73.03 ; Other obesity due to excess calories E66.09 ; Alternating constipation and diarrhea R19.8 ; Dyspepsia R10.13 ; Generalized abdominal pain R10.84 ; Rhinosinusitis J32.9 and Boil L02.92 [place] [id number] [place] [address] 75360- 6602 Jan, Heartburn R12 [place] [id number] [place] [address] 49132- 3530 Jan, [place] [address] 17096- 3513 Jan, [place] [id number] [place] [address] 32998- 6128 Jan, Acute seasonal allergic rhinitis due to pollen J30.1 and Irritable bowel syndrome without diarrhea K58.9 [place] [address] 24749- 8443 Dec, Low back pain M54.5 and Acute cystitis with hematuria N30.01 [place] [address] 16400- 0425 Dec, Low back pain M54.5 and Acute cystitis with hematuria N30.01 [place] [address] 58282- 0347 Dec, Heartburn R12 ; Essential hypertension I10 ; Acute non- recurrent maxillary sinusitis J01.00 ; Bilateral low back pain without sciatica M54.5 ; Anxiety F41.9 ; Pre-diabetes R73.03 ; Pain in right foot M79.671 ; Pain in left foot M79.672 ; Other obesity due to excess calories E66.09 and Acute cystitis with hematuria N30.01 [place] [address] 80066- 5495 Dec, Bilateral low back pain without sciatica M54.5 ; Acute non- recurrent maxillary sinusitis J01.00 and Pre-diabetes R73.03 [place] [address] 24443- 3547 Oct, [facility] [place] [address] 52875 -8399 Aug, [facility] [address] 64448 -0569 Aug, Acute vaginitis N76.0 ; Urinary frequency R35.0 ; Screen for STD (sexually transmitted disease) Z11.3 and Abscess L02.91 [place] [address] 81439- 1892 Aug, Plantar wart of right foot B07.0 [place] [address] 39666- 9415 Jul, Plantar wart of right foot B07.0 [place] [id number] [place] [address] 13055- 1266 Jun, [place] [address] 55924- 1312 Jun, Heartburn R12 ; Essential hypertension I10 ; Anxiety F41.9 ; Folliculitis L73.9 and Plantar wart of right foot B07.0 [place] [address] 19954- 7718 Jun, [facility] [address] 39168 -3762 May, Low back pain M54.5 and Other chronic pain G89.29 [place] [address] 95226- 0642 May, [place] [address] 23294- 8193 May, [place] [address] 86661- 4281 May, Heartburn R12 ; Bilateral low back pain without sciatica M54.5 ; Essential hypertension I10 ; Long-term use of high-risk medication Z79.899 ; Anxiety F41.9 ; Impacted cerumen of right ear H61.21 ; Folliculitis L73.9 ; High risk bisexual behavior Z72.53 and General medical exam Z00.00 [place] [id number] [place] [address] 71652- 9565 May, [place] [id number] [place] [address] 24196- 9740 May, [address] 04823- 1032 Mar, Acute nasopharyngitis J00 ; Acute intractable tension-type headache G44.201 and Cough R05 [place] [id number] [place] [address] 15682- 1574 Jan, [facility] [address] [address] 29 Jan, 2016 Abscess L02.91 [facility] [id number] [place] [address] 66277 -8040 10 Jan, 2016 Urinary urgency R39.15 and Urinary tract infection without hematuria, site unspecified N39.0 [facility] [id number] [place] [address] 08879- 3617 Jan, [facility] [id number] [place] [address] 01694- 3189 Jan, [facility] [id number] [place] [address] 01053- 0293 Dec, [facility] [id number] [place] [address] 63411- 7055 Dec, Dermatofibroma D23.9 [facility] [id number] [place] [address] 72952- 4077 September, [facility] [id number] [place] [address] 21213- 7795 Aug, [facility] [id number] [place] [address] 76779- 8668 Aug, Pain in left knee M25.562 ; Heartburn R12 ; Bilateral low back pain without sciatica M54.5 ; Essential hypertension I10 ; Ingrown left big toenail L60.0 ; Chronic pain G89.29 ; Irritable bowel syndrome with constipation K58.9 and Skin infection L08.9 [facility] [address] [address] 1899 Aug, [facility] [id number] [place] [address] 05178- 0612 Jul, [facility] [id number] [place] [address] 00791- 0123 Jun, [facility] [id number] [place] [address] 34016- 9700 Jun, [facility] [id number] [place] [address] 83073- 7050 Jun, [facility] [id number] [place] [address] 31430- 7439 Jun, [facility] [id number] [place] [address] 06038- 9483 Jun, Upper respiratory infection J06.9 ; Bilateral low back pain without sciatica M54.5 and Headache R51 [facility] [id number] [place] [address] 53217- 7700 May, [facility] [id number] [place] [address] 82885- 8141 Apr, Bilateral low back pain without sciatica M54.5 ; Upper respiratory infection J06.9 and Yeast dermatitis B37.2 [facility] [id number] [place] [address] 51408- 6896 Apr, [facility] [id number] [place] [address] 77832- 6314 Apr, [facility] [id number] [place] [address] 95391- 0259 Feb, [facility] [id number] [place] [address] 31148- 6049 Feb, [facility] [id number] [place] [address] 38579- 9782 Feb, [facility] [id number] [place] [address] 97205- 6357 Feb, Essential hypertension I10 ; Heartburn R12 ; Irritable bowel syndrome without diarrhea K58.9 ; Bilateral low back pain, with sciatica presence unspecified M54.5 and Upper respiratory infection J06.9 [facility] [id number] [place] [address] 77215- 7955 Feb, [facility] [id number] [place] [address] 270061- 6086 Feb, Generalized anxiety disorder F41.1 and Grief F43.20 [facility] [id number] [place] [address] 93063- 2269 Jan, [place] [id number] [place] [address] 16380- 1760 Jan, Back pain 724.5 ; Upper respiratory infection 465.9 ; HTN ( hypertension) 401.9 and Dyspepsia 536.8 [place] [id number] [place] [address] 258358- 1181 Dec, [place] [id number] [place] [address] 26755- 5862 Nov, Back pain 724.5 ; Abdominal pain, bilateral lower quadrant 789.03 ; GERD (gastroesophageal reflux disease) 530.81 ; Upper respiratory infection 465.9 ; Dysuria 788.1 and HTN (hypertension) 401.9 [place] [id number] [place] [address] 92105- 5978 Nov, [place] [id number] [place] [address] 47827- 1985 Nov, [facility] [id number] [place] [address] 77523- 1766 Nov, [facility] [id number] [place] [address] 55466- 1500 Nov, Cough 786.2 [place] [id number] [place] [address] 49561- 0483 Nov, Cough 786.2 [place] [id number] [place] [address] 68263- 0772 Oct, Unspecified episodic mood disorder 296.90 and Anxiety disorder, unspecified 300.00 [place] [id number] [place] [address] 98819- 3396 Oct, Abdominal pain, left upper quadrant 789.02 ; Essential hypertension, benign 401.1 ; Irritable bowel syndrome 564.1 ; Abscess 682.9 ; Heartburn 787.1 ; Acute sinusitis, unspecified 461.9 ; Muscle spasm of back 724.8 ; Cough 786.2 and Skin tag 701.9 [facility] [id number] [address]- 3954 September, [facility] [id number] [place] [address] 35676- 4124 September, [facility] [id number] [place] [address] 65058- 7325 September, [facility] [id number] [place] [address] 06733- 0973 Aug, [facility] [id number] [place] [address] 96504- 6588 Aug, [facility] [id number] [place] [address] 82580- 1027 Jul, [facility] [id number] [place] [address] 76425- 0156 Jul, [facility] [id number] [place] [address] 91679- 0217 Jul, [facility] [address] [address]- 0709 Jul, [facility] [id number] [address]- 1564 Jul, [facility] [id number] [place] [address] 26376- 6702 Jul, [facility] [id number] [place] [address] [id number]- 9297 Jul, [facility] [id number] 8039 Jul, [facility] [place] [facility] [address] [facility] [id number] [place] [address]- 0415 Jul, [facility] [place] [facility] [address] [id number] [place] [address]- 9447 Jul, [facility] [place] [facility] [address] [id number] [place] [address]- 2906 Jul, [facility] [place] [facility] [address] [id number] [place] [address]- 4721 Jul, [facility] [place] [facility] [address] [id number] [place] [address]- 4381 Jul, [facility] [place] [facility] [address] [id number] [place] [address]- 3436 Jul, [facility] [place] [facility] [address] [facility] [id number] [place] [address]- 9460 Jul, [facility] [place] [facility] [address] [id number] [place] [address]- 0022 Jul, 2014 [facility] [place] [facility] [address] [id number] [place] [address]- 1540 Jul, [facility] [place] [facility] [address] [id number] [place] [address]- 1927 Jun, [facility] [place] [facility] [address] [facility] [id number] [place] [address]- 9615 Jun, 2014 [facility] [place] [facility] [address] [id number] [place] [address]- 7940 Jun, 2014 [facility] [place] [facility] [address] [id number] [place] [address]- 2569 Jun, 2014 [facility] [place] [facility] [address] [id number] [place] [address]- 5661 Jun, 2014 [facility] [place] [facility] [address] [id number] [place] [address]- 9473 Jun, 2014 [facility] [place] [facility] [address] [facility] [id number] [place] [address]- 4391 Jun, [facility] [place] [facility] [address] [id number] [place]- 5166 Jun, [facility] [place] [facility] [address] [id number] [place] 6204 Apr, [facility] [place] [facility] [address] [id number] [place] [address]- 2834 Apr, [facility] [place] [facility] [address] [id number] [place] [address]- 0069 Apr, [facility] [place] [facility] [address] [id number] [place] [address]- 4782 Apr, [facility] [place] [facility] [address] [id number] [place] [address]- 2918 Apr, [facility] [place] [facility] [address] [id number] [place] [address]- 0139 Apr, [facility] [place] [facility] [address] [id number] [place] [address]- 4663 Apr, [facility] [place] [facility] [address] [id number] [place] [address]- 9138 Apr, [facility] [place] [facility] [address] [id number] [place] [address]- 6601 Apr, [facility] [place] [facility] [address] [id number] [place] [address]- 6376 Apr, [facility] [place] [facility] [address] [id number] [place] [address]- 7013 Apr, [facility] [place] [facility] [address] [id number] [place] [address]- 2238 Apr, [facility] [place] [facility] [address] [id number] [place] 2329 Apr, [facility] [place] [facility] [address] [id number] [place] [address]- 8277 Apr, [facility] [place] [facility] [address] [id number] [place] [address]- 2548 Apr, [facility] [place] [facility] [address] [id number] [place] [address]- 2621 Feb, [facility] [place] [facility] [address] [id number] [place] [address]- 9417 Feb, [facility] [place] [facility] [address] [id number] [place] [address]- 4894 Feb, [facility] [place] [facility] [address] [id number] [place] [address]- 5646 Feb, [facility] [place] [facility] [address] [id number] [place] [address]- 8678 Feb, [facility] [place] [facility] [address] [id number] [place] [address]- 2728 Feb, [facility] [place] [facility] [address] [id number] [place] [address]- 5711 Jan, 2013 [facility] [place] [facility] [address] [id number] [place] [address]- 1419 Jan, 2013 [facility] [place] [facility] [address] [id number] [place] [address]- 8364 Jan, 2013 [facility] [place] [facility] [address] [id number] [place] [address]- 0673 Jan, 2013 [facility] [place] [facility] [address] [id number] [place] [address]- 8059 Jan, 2013 [facility] [place] [facility] [address] [id number] [place] [address]- 9521 Jan, [facility] [place] [facility] [address] [id number] [place] [address]- 0405 Dec, [facility] [place] [facility] [address] [id number] [place] [address]- 4745 Dec, [facility] [place] [facility] [address] [id number] [place] [address]- 9298 Dec, [facility] [place] [facility] [address] [id number] [place] [address]- 1638 Dec, [facility] [place] [facility] [address] [id number] [place] [address]- 1598 Nov, [facility] [place] [facility] [address] [id number] [place] [address]- 2714 Nov, [facility] [place] [facility] [address] [id number] [place] [address]- 2202 Nov, [facility] [place] [facility] [address] [id number] [place] [address]- 6022 Nov, [facility] [place] [facility] [address] [id number] [place] [address]- 8474 Nov, [facility] [place] [facility] [address] [id number] [place] [address]- 8636 Nov, [facility] [place] [facility] [address] [id number] [place] [address]- 9199 Nov, [facility] [place] [facility] [address] [id number] [place] [address]- 9428 Nov, [facility] [place] [facility] [address] [id number] [place] [address]- 4585 Oct, [facility] [place] [facility] [address] [id number] [place] [address]- 6212 Oct, [facility] [place] [facility] [address] [id number] [place] [address]- 3031 Oct, [facility] [place] [facility] [address] [id number] [place] [address]- 9486 Oct, [facility] [place] [facility] [address] [id number] [place] [address]- 1148 Oct, [facility] [place] [facility] [address] [id number] [place] [address]- 5056 Oct, [facility] [place] [facility] [address] [id number] [place] [address]- 3200 Oct, [facility] [place] [facility] [address] [id number] [place] [address]- 0885 Oct, [facility] [place] [facility] [address] [id number] [place] [address]- 7694 Oct, [facility] [place] [facility] [address] [id number] [place] [address] Oct, [facility] [place] [facility] [address] [id number] [place] [address] Oct, [facility] [place] [facility] [address] [id number] [place] [address] Oct, [facility] [place] [facility] [address] [id number] [place] [address]- [address] 18 Oct, 2013 [facility] [place] [facility] [address] [id number] [place] [address]- [address] 18 Oct, 2013 [facility] [place] [facility] [address] [id number] [place] [address]- [address] 17 Oct, 2013 [facility] [place] [facility] [address] [id number] [place] [address]- [address] 17 Oct, 2013 [facility] [place] [facility] [address] [facility] [id number] [place] [address]- [address] 16 Oct, 2013 [facility] [place] [facility] [address] [id number] [place] [address]- [address] 16 Oct, 2013 [facility] [place] [facility] [address] [id number] [address] 13 Oct, 2013 [facility] [place] [facility] [address] [id number] [place] [address]- [address] 13 Oct, 2013 [facility] [place] [facility] [address] [id number] [place] [address]- [address] 11 Oct, 2013 [facility] [place] [facility] [address] [id number] [place] [address]- [address] Oct, [facility] [place] [facility] [address] [id number] [place] [address]- [address] Oct, [facility] [place] [facility] [address] [id number] [place] [address]- [address] Oct, [facility] [place] [facility] [address] [id number] [place] [address]- [address] Oct, [facility] [place] [facility] [address] [id number] [place] [address]- [address] Oct, [facility] [place] [facility] [address] [id number] [place] [address]- [address] Oct, [facility] [place] [facility] [address] [id number] [place] [address]- [address] Oct, [facility] [place] [facility] [address] [id number] [place] [address]- [address] Oct, [facility] [place] [facility] [address] [id number] [place] [address]- [address] Oct, [facility] [place] [facility] [address] [id number] [place] [address]- [address] September, [facility] [place] [facility] [address] [id number] [place] [address]- [address] September, [facility] [place] [facility] [address] [id number] [place] [address]- [address] September, [facility] [place] [facility] [address] [id number] [place] [address]- [address] September, [facility] [place] [facility] [address] [id number] [place] [address]- [address] September, [facility] [place] [facility] [address] [id number] [place] [address]- [address] September, [facility] [place] [facility] [address] [id number] [place] [address]- [address] September, [facility] [place] [facility] [address] [id number] [place] [address]- [address] September, [facility] [place] [facility] [address] [id number] [place] [address]- [address] September, [facility] [place] [facility] [address] [id number] [place] [address]- 65[address] September, [facility] [place] [facility] [address] [id number] [place] [address]- [address]99 September, [facility] [place] [facility] [address] [id number] [place] [address]- 478[address] September, [facility] [place] [facility] [address] [id number] [place] [address]- 1869 September, [facility] [place] [facility] [address] [id number] [place] [address]- 1249 September, [facility] [place] [facility] [address] [id number] [place] [address]- [address] September, [facility] [place] [facility] [address] [id number] [place] [address]- 1010 September, [facility] [place] [facility] [address] [id number] [place] [address]- 245[address] September, [facility] [place] [facility] [address] [id number] [place] [address]- [address] September, [facility] [place] [facility] [address] [id number] [place] [address] Aug, [facility] [place] [facility] [address] [id number] [place] [address] Aug, [facility] [place] [facility] [address] [id number] [place] [address] 1336 Aug, [facility] [place] [facility] [address] [id number] [place] [address] Aug, [facility] [place] [facility] [address] [id number] [place] [address] 6229 Aug, [facility] [place] [facility] [address] [id number] [place] [address] 3520 Aug, [facility] [place] [facility] [address] [id number] [place] [address] 0710 Jul, [facility] [place] [facility] [address] [id number] [place] [address]37 Jul, [facility] [place] [facility] [address] [id number] [place] [address]- 1514 Jul, [facility] [place] [facility] [address] [id number] [place] [address] 2954 Jul, [facility] [place] [facility] [address] [id number] [place] [address] 9049 Jun, [facility] [place] [facility] [address] [id number] [place] [address] 4381 Jun, [facility] [place] [facility] [address] [id number] [place] [address]- 5746 Jun, [facility] [place] [facility] [address] [id number] [place] [address]- 4881 Jun, [facility] [place] [facility] [address] [id number] [place] [address]- 8468 Mar, [facility] [place] [facility] [address] [id number] [place] [address]- 0897 14 Mar, 2013 [facility] [place] [facility] [address] [id number] [place] [address] 4930 Mar, [facility] [place] [facility] [address] [id number] [place] [address] 8101 Mar, [facility] [place] [facility] [address] [id number] [place] [address] Feb, [facility] [place] [facility] [address] [id number] [place] [address]- 7755 Feb, [facility] [place] [facility] [address] [id number] [place] [address]- 2317 Feb, [facility] [place] [facility] [address] [id number] [place] [address]- 2652 Jan, [facility] [place] [facility] [address] [id number] [place] [address]- 8534 Jan, [facility] [place] [facility] [address] [id number] [place] [address]- 5426 Jan, [facility] [place] [facility] [address] [id number] [place] [address]- 8186 Jan, [facility] [place] [facility] [address] [id number] [place] [address]- 3825 Dec, [facility] [place] [facility] [address] [id number] [place] [address]- 9946 Dec, [facility] [place] [facility] [address] [id number] [place] [address]- 4843 Dec, [facility] [place] [facility] [address] [id number] [place] [address]- 7893 Dec, [facility] [place] [facility] [address] [id number] [place] [address]- 4787 Nov, [facility] [place] [facility] [address] [id number] [place] [address]- 5586 Nov, [facility] [place] [facility] [address] [id number] [place] [address]- 5597 Nov, [facility] [place] [facility] [address] [id number] [address] Nov, [facility] [place] [facility] [address] [id number] [place] [address]- 3233 Nov, [facility] [place] [facility] [address] [id number] [place] [address]- 3962 Nov, [facility] [place] [facility] [address] [id number] [place] [address]- 4442 Oct, [facility] [place] [facility] [address] [id number] [place] [address]- 9166 27 Oct, 2012 [facility] [address] [id number] [place] [address]- 6469 25 Oct, 2012 [facility] [place] [facility] [address] [id number] [place] [address]- 5298 Oct, [facility] [place] [facility] [address] [id number] [place] [address]- 5250 17 Oct, 2012 [facility] [place] [facility] [address] [id number] [place] [address]- 6857 16 Oct, 2012 [facility] [place] [facility] [address] [id number] [place] [address]- 7309 14 Oct, 2012 [facility] [place] [facility] [address] [id number] [place] [address]- 0793 13 Oct, 2012 [facility] [place] [facility] [address] [id number] [place] [address]- 4074 11 Oct, 2012 [facility] [place] [facility] [address] [id number] [place] [address]- 0415 07 Oct, 2012 [facility] [place] [facility] [address] [id number] [place] [address]- 8575 September, [facility] [place] [facility] [address] [id number] [place] [address]- 9616 September, [facility] [place] [facility] [address] [id number] [place] [address]- 9696 September, [facility] [place] [facility] [address] [id number] [place] [address]- 1370 Aug, [facility] [place] [facility] [address] [id number] [place] [address]- 1921 Aug, [facility] [place] [facility] [address] [id number] [place] [address]- 8349 Aug, [facility] [place] [facility] [address] [id number] [place] [address]- 7952 Aug, [facility] [place] [facility] [address] [id number] [place] [address]- 9660 30 Jul, 2012 [facility] [address] [id number] [place] [address]- 6374 29 Jul, 2012 [facility] [place] [facility] [address] [id number] [place] [address]- 2666 Jul, [facility] [address] [id number] [place] [address]- 8678 Jul, [facility] [address] [id number] [place] [address]- 0800 Jul, [facility] [place] [facility] [address] [id number] [place] [address]- 7253 Jul, [facility] [address] [id number] [place] [address]- 2369 May, [facility] [address] [id number] [place] [address]- 9740 May, [facility] [address] [id number] [place] [address]- 3399 May, [facility] [address] [id number] [place] [address]- 0451 May, [facility] [place] [facility] [address] [id number] [place] [address]- 3110 May, [facility] [address] [id number] [place] [address]- 1000 May, [facility] [place] [facility] [address] [id number] [place] [address]- 1994 May, [facility] [place] [facility] [address] [id number] [place] [address]- 7347 18 May, 2012 [facility] [place] [facility] [address] [id number] [place] [address]- 3705 17 May, 2012 [facility] [place] [facility] [address] [id number] [place] [address]- 0057 May, [facility] [place] [facility] [address] [id number] [place] [address]- 1307 May, [facility] [place] [facility] [address] [id number] [place] [address]- 1361 Apr, [facility] [place] [facility] [address] [id number] [place] [address]- 2340 Apr, [facility] [place] [facility] [address] [id number] [place] [address]- 4373 Apr, [facility] [place] [facility] [address] [id number] [place] [address]- 4556 Apr, [facility] [place] [facility] [address] [id number] [place] [address]- 9875 Apr, [facility] [place] [facility] [address] [id number] [place] [address]- 4823 Apr, [facility] [place] [facility] [address] [id number] [place] [address]- 4315 Mar, [facility] [place] [facility] [address] [id number] [place] [address]- 6975 Mar, [facility] [place] [facility] [address] [id number] [place] [address]- 1511 Mar, [facility] [place] [facility] [address] [id number] [place] [address] 1989 Mar, [facility] [place] [facility] [address] [id number] [place] [address]- 5613 Mar, [facility] [place] [facility] [address] [id number] [place] [address]- 8255 Mar, [facility] [place] [facility] [address] [id number] [place] [address]- 7178 Mar, [facility] [place] [facility] [address] [id number] [place] [address]- 9718 Mar, [facility] [place] [facility] [address] [id number] [place] [address]- 6891 23 Feb, 2011 [facility] [place] [facility] [address] [id number] [place] [address]- 2884 23 Feb, 2011 [facility] [place] [facility] [address] [id number] [place] [address]- 8906 16 Feb, 2012 [facility] [place] [facility] [address] [id number] [place] [address]- 8561 15 Feb, 2012 [facility] [place] [facility] [address] [id number] [place] [address]- 2830 15 Feb, 2012 [facility] [place] [facility] [address] [id number] [place] [address]- 9098 13 Feb, 2012 [facility] [place] [facility] [address] [id number] [place] [address]- 2502 12 Feb, 2012 [facility] [place] [facility] [address] [id number] [place] [address]- 0441 12 Feb, 2012 [facility] [place] [facility] [address] [id number] [place] [address]- 3696 12 Feb, 2012 [facility] [place] [facility] [address] [id number] [place] [address]- 1630 Feb, [facility] [place] [facility] [address] [id number] [place] [address]- 2619 Feb, [facility] [place] [facility] [address] [id number] [place] [address]- 7300 Feb, [facility] [place] [facility] [address] [id number] [place] [address]- 0795 Feb, [facility] [place] [facility] [address] [id number] [place] [address]- 4661 Feb, [facility] [place] [facility] [address] [id number] [place] [address]- 8245 Feb, [facility] [place] [facility] [address] [id number] [place] [address]- 2693 Feb, [facility] [place] [facility] [address] [id number] [place] [address]- 9113 Feb, [facility] [place] [facility] [address] [id number] [place] [address]- 3646 Feb, [facility] [place] [facility] [address] [id number] [place] [address]- 1496 19 Jan, 2012 [facility] [place] [facility] [address] [id number] [place] [address]- 4066 13 Jan, 2012 [facility] [place] [facility] [address] [id number] [place] [address]- 2298 11 Jan, 2012 [facility] [place] [facility] [address] [id number] [place] [address]- 1972 10 Jan, 2012 [facility] [place] [facility] [address] [id number] [place] [address]- 4354 05 Jan, 2012 [facility] [place] [facility] [address] [id number] [place] [address]- 2338 Dec, [facility] [place] [facility] [address] [id number] [place] [address]- 6696 Dec, [facility] [place] [facility] [address] [id number] [place] [address]- 6894 Dec, [facility] [place] [facility] [address] [id number] [place] [address]- 7536 Dec, [facility] [place] [facility] [address] [id number] [place] [address]- 2044 Dec, [facility] [place] [facility] [address] [id number] [place] [address]- 0475 Dec, [facility] [place] [facility] [address] [id number] [place] [address]- 6347 Nov, [facility] [place] [facility] [address] [id number] [place] [address]- 7203 Nov, [facility] [place] [facility] [address] [id number] [place] [address]- 1808 Nov, [facility] [place] [facility] [address] [id number] [place] [address]- 9669 Nov, [facility] [place] [facility] [address] [id number] [place] [address]- 4477 Nov, [facility] [place] [facility] [address] [id number] [place] [address]- 5094 Oct, [facility] [place] [facility] [address] [id number] [place] [address]- 0819 Oct, [facility] [place] [facility] [address] [id number] [place] [address]- 2532 Oct, [facility] [place] [facility] [address] [id number] [place] [address]- 8152 September, [facility] [place] [facility] [address] [id number] [place] [address]- 3426 September, [facility] [place] [facility] [address] [id number] [place] [address]- 6079 September, [facility] [place] [facility] [address] [id number] [place] [address]- 1706 September, [facility] [place] [facility] [address] [id number] [place] [address]- 9832 September, [facility] [place] [facility] [address] [id number] [place] [address]- 1602 September, [facility] [place] [facility] [address] [id number] [place] [address]- 5581 Aug, [facility] [place] [facility] [address] [id number] [place] [address]- 3046 Aug, [facility] [place] [facility] [address] [id number] [place] [address]- 2161 Aug, [facility] [place] [facility] [address] [id number] [place] [address]- 8926 Jun, [facility] [place] [facility] [address] [id number] [place] [address]- 8168 Jun, [facility] [address] [id number] [place] [address]- 1716 Jun, [facility] [place] [facility] [address] [id number] [place] [address]- 0546 Jun, [facility] [address] [id number] [place] [address]- 4305 May, [facility] [address] [id number] [place] [address]- 2207 May, [facility] [address] [id number] [place] [address]- 7828 May, [facility] [address] [id number] [place] [address]- 4469 May, [facility] [address] [id number] [place] [address]- 3267 May, [facility] [address] [id number] [place] [address]- 4285 Apr, [facility] [address] [id number] [place] [address]- 0416 Apr, [facility] [address] [id number] [place] [address]- 2945 Apr, [facility] [address] [id number] [place] [address]- 4802 Apr, [facility] [address] [id number] [place] [address]- 7162 Apr, [facility] [place] [facility] [address] [id number] [place] [address]- 3716 Apr, [facility] [place] [facility] [address] [id number] [place] [address]- 8068 16 Apr, 2011 [facility] [place] [facility] [address] [id number] [place] [address]- 3078 Mar, [facility] [place] [facility] [address] [id number] [place] [address]- 7151 Mar, [facility] [place] [facility] [address] [id number] [place] [address]- 1152 Mar, [facility] [place] [facility] [address] [id number] [place] [address]998 Feb, [facility] [place] [facility] [address] [id number] [place] [address]- 4722 Feb, [facility] [place] [facility] [address] [id number] [place] [address]- 6057 Feb, [facility] [place] [facility] [address] [id number] [place] [address]- 4524 Feb, [facility] [place] [facility] [address] [id number] [place] [address]- 0135 Feb, [facility] [place] [facility] [address] [id number] [place] [address]- 4278 Feb, [facility] [place] [facility] [address] [id number] [place] [address]- 3024 Jan, [facility] [place] [facility] [address] [id number] [place] [address]- 1159 Jan, [facility] [place] [facility] [address] [id number] [place] [address]- 9757 September, [facility] [place] [facility] [address] [id number] [place] [address]- 2047 Jun, [facility] [place] [facility] [address] [id number] [place] [address]- 3515 Apr, [facility] [place] [facility] [address] [id number] [place] [address]- 3799 Apr, [facility] [place] [facility] [address] [id number] [place] 2968 Apr, [facility] [place] [facility] [id number] [address]- 8718 Apr, [facility] [id number] [address]- 3172 Apr, [facility] [id number] [address]- 1684 Mar, [facility] [id number] [place] [address]- 1272 Mar, [facility] [id number] [place] [address] 09186- 1514 Mar, [facility] [id number] [place] [address] 91237- 1390 Mar, [facility] [id number] [place] [address] 36014- 1360 Feb, [facility] [id number] [place] [address] 77020- 6267 Jan, [facility] [id number] [place] [address] 57190- 7695 Mar, [facility] [id number] [place] [address] 37749- 4186 Jan, [facility] [id number] [address]- 3306 Oct, [facility] [address] [address]- 5589 Apr, IMMUNIZATIONS No Known Immunizations SOCIAL HISTORY Never Assessed REASON FOR VISIT cough, fever, body aches for the past 2 days. [email or web address] PLAN OF CARE Activity Details Follow Up prn Reason: VITAL SIGNS Height 66 in 2017-05-19 Weight 242.0 lbs 2017-05-19 Temperature 99.7 degrees Fahrenheit 2017-05-19 Heart Rate 94 bpm 2017-05-19 Respiratory Rate 20 2017-05-19 BMI 39.06 kg/m2 2017-05-19 Blood pressure systolic 124 mmHg 2017-05-19 Blood pressure diastolic 80 mmHg 2017-05-19 MEDICATIONS Medication Instructions Dosage Frequency Start Date End Date Duration Status Lisinopril 20 mg Orally Once a day 1 tablet 24h 30 day(s) Active Actos 30 MG Orally Once a day 1/2 tablet 24h 180 days Active Ibuprofen 800 MG Orally Three times a day 1 tablet 8h 30 Active HydrOXYzine HCl 50 MG Orally bid prn 1/2-1 tablet as needed 30 day (s) Not-Taking Sudafed 12 Hour 120 MG Orally every 12 hrs 1 tablet as needed 12h 18 Jan, 2017 Active Promethazine-Codeine 6.25-10 MG/5ML Orally every 6 hrs 5 ml as needed 6h Not-Taking Dicyclomine HCl 10 mg TAKE ONE CAPSULE BY MOUTH THREE TIMES DAILY 30 Active Flexeril 10 mg Orally 2 times a day s needed 1 tablet Active Omeprazole 20 mg Orally Once a day 1 capsule 24h Active Fexofenadine HCl 180 MG Orally Once a day 1 tablet as needed 24h Feb, Aug, 30 day(s) Not-Taking RESULTS Name Result Date Reference Range UA LONG DIP (IN HOUSE) 2017-05-19 Lot # [id number] Exp date 2017 Clarity clear Color yellow Odor none GLU negative RANDALL negative KET negative SG 1.020 BLO negative pH 7.5 Protein negative URO 0.2 NIT negative TRAVIS trace Lot # [id number] Exp date August 2017 INFLUENZA A & B (IN HOUSE) 2017-05-19 INFLUENZA A positive INFLUENZA B negative Control + Lot # [id number] Exp date 2019 PROCEDURES Procedure Date Ordered Result Body Site INFLUENZA ASSAY W/OPTIC May 19, 2017 URINALYSIS, AUTO, W/O SCOPE May 19, 2017 INSTRUCTIONS MEDICATIONS ADMINISTERED No Known Medications [...]
--- OUTSIDE RECORDS SUMMARY | 2018-03-22 22:03 | XMS REPORT ---
Author Author BRITANY BOSCH [facility] Address [address] [place] [address] Care Team Providers Care Disaster Response Director Name Role Phone BRITANY BOSCH Unavailable PROBLEMS Type Condition ICD9-CM Code MVH88-OC Code Onset Dates Condition Status SNOMED Code Problem Folliculitis L73.9 Active 41314547 Problem High risk bisexual behavior Z72.53 Active 977429480 Problem Anxiety F41.9 Active 43433697 Problem Acute non-recurrent maxillary sinusitis J01.00 Active 50184259 Problem Other obesity due to excess calories E66.09 Active 420097998 Problem Plantar wart of right foot B07.0 Active 94238677 Problem Other chronic pain G89.29 Active 09346419 Problem Pain in right foot M79.671 Active 86428316755082360 Problem Pain in left foot M79.672 Active 824300160727905 Problem Heartburn R12 Active 62260157 Problem Irritable bowel syndrome without diarrhea K58.9 Active 53457030 Problem Bilateral low back pain without sciatica M54.5 Active 526433219 Problem Pre-diabetes R73.03 Active 066864852 Problem Essential hypertension I10 Active 29650929 Problem Long-term use of high-risk medication Z79.899 Active 576736217 Problem Bilateral low back pain, with sciatica presence unspecified M54.5 Active 232457886 Problem Impacted cerumen of right ear H61.21 Active 34454575 ALLERGIES No Information SOCIAL HISTORY Never Assessed PLAN OF CARE VITAL SIGNS MEDICATIONS Unknown [...]
--- OUTSIDE RECORDS SUMMARY | 2018-03-22 22:03 | XMS REPORT ---
Author Author BRITANY BOSCH [facility] Address [address] [place] [address] Care Team Providers Care Data Input Clerk Name Role Phone BRITANY BOSCH Unavailable PROBLEMS Type Condition ICD9-CM Code WPQ50-[id number] Code Onset Dates Condition Status SNOMED Code Problem Upper respiratory infection J06.9 Active 89076861 Problem Irritable bowel syndrome without diarrhea K58.9 Active 72685829 Problem Bilateral low back pain, with sciatica presence unspecified M54.5 Active 103416010 Problem Pain in left knee M25.562 Active 01153165 Problem Ingrown left big toenail L60.0 Active 112761479 Problem Essential hypertension I10 Active 75353492 Problem Heartburn R12 Active 24860151 Problem Bilateral low back pain without sciatica M54.5 Active 483150547 Problem Yeast dermatitis B37.2 Active 10807507 ALLERGIES No Known Allergies SOCIAL HISTORY No smoking Hx information available PLAN OF CARE VITAL SIGNS MEDICATIONS Medication Instructions Dosage Frequency Start Date End Date Duration Status Dicyclomine HCl 10 MG TAKE ONE CAPSULE BY MOUTH THREE TIMES DAILY 30 Active Flexeril 10 MG Orally 2 times a day s needed 1 tablet Active RESULTS No Results PROCEDURES No Known procedures IMMUNIZATIONS No Known Immunizations
--- OUTSIDE RECORDS SUMMARY | 2018-03-22 22:03 | XMS REPORT ---
Author Author BRITANY BOSCH Organization [employer] Address Unknown Phone Unavailable Care Team Providers Care Structural Engineering Project Manager Name Role Phone BRITANY BOSCH CP Unavailable [...]
--- OUTSIDE RECORDS SUMMARY | 2018-03-22 22:03 | XMS REPORT ---
Author Author TIFFANI THOMAS [facility] [employer] Address Unknown Phone Unavailable Care Team Providers Care Service Delivery Consultant Name Role Phone TIFFANI THOMAS CP Unavailable Allergies, Adverse Reactions, Alerts Substance Reaction Event Type Penicillin V Potassium anaphylaxis Drug Allergy surgical tape "tears skin off" Non Drug Allergy Problems Problem Type Condition Code Onset Dates Condition Status Assessment Abscess L02.91 Active Problem Bilateral low back pain, with [...] Start Date End Date Status Dosage Lisinopril-Hydrochlorothiazide [facility] [address]-03 10-12.5 MG Orally Once a day 1 tablet Alprazolam [facility] [address]-80 1 MG TAKE ONE TABLET BY MOUTH THREE TIMES DAILY NEEDED Bactroban [facility] [address]-92 2 % Externally Three times a day 1 application to affected area Clindamycin HCl [facility] [address]-96 300 MG Orally every 8 hrs Feb 10, 2016 Feb 20, 2016 1 capsule Omeprazole [facility] [address]-75 20 MG Orally Once a day Jul 03, 2014 1 capsule Ibuprofen [facility] 94280086460 800 MG Orally Three times a day 1 tablet Flexeril [facility] [address]-97 10 MG Orally 2 times a day s needed 1 tablet Dicyclomine HCl [facility] [address]-28 10 MG TAKE ONE CAPSULE BY MOUTH THREE TIMES DAILY Linzess [facility] 93125420669 145 MCG TAKE ONE CAPSULE BY MOUTH ONCE DAILY Procedures Procedure Coding System Code Date Office Visit, Est Pt., Level 3 CPT-4 98046 Feb 10, 2016 Vital Signs Date/Time: Feb 10, 2016 Cardiac Monitoring Heart Rate 80 bpm Weight 265.0 lbs Height 66 in BMI 42.77 Index Blood Pressure Diastolic 80 mmHg Blood Pressure Systolic 120 mmHg Results No Known Results Summary Purpose [employer] Submission
--- OUTSIDE RECORDS SUMMARY | 2018-03-22 22:03 | XMS REPORT ---
Author Author BRITANY BOSCH Organization [employer] Address Unknown Phone Unavailable Care Team Providers Care Sales Promotion Coordinator Name Role Phone BRITANY BOSCH CP Unavailable [...]
--- OUTSIDE RECORDS SUMMARY | 2018-03-22 22:03 | XMS REPORT ---
Author Author BRITANY BOSCH Organization [facility] [place] Address [address] [place] [address] Care Team Providers Care Motorcycle Technician Name Role Phone BRITANY BOSCH Unavailable PROBLEMS Type Condition ICD9-CM Code UCO20-GK Code Onset Dates Condition Status SNOMED Code Problem Upper respiratory infection J06.9 Active 53602098 Problem Irritable bowel syndrome without diarrhea K58.9 Active 83549793 Problem Bilateral low back pain, with sciatica presence unspecified M54.5 Active 205760196 Problem Pain in left knee M25.562 Active 45982963 Problem Ingrown left big toenail L60.0 Active 566594561 Problem Essential hypertension I10 Active 95042824 Problem Heartburn R12 Active 49593632 Problem Bilateral low back pain without sciatica M54.5 Active 615641449 Problem Yeast dermatitis B37.2 Active 00161774 ALLERGIES No Known Allergies SOCIAL HISTORY No smoking Hx information available PLAN OF CARE VITAL SIGNS MEDICATIONS Medication Instructions Dosage Frequency Start Date End Date Duration Status Lisinopril-Hydrochlorothiazide 10-12.5 MG Orally Once a day- MUST HAVE APPT 1 tablet 30 Active Ibuprofen 800 MG Orally Three times a day-MUST HAVE APPT 1 tablet 30 Active Omeprazole 20 mg Orally Once a day-MUST HAVE APPT 1 capsule Jun, 30 days Active RESULTS No Results PROCEDURES No Known procedures IMMUNIZATIONS No Known Immunizations
--- OUTSIDE RECORDS SUMMARY | 2018-03-22 22:03 | XMS REPORT ---
Author Author JEVON MCLEAN [facility] Address [address] [place] [address] Care Team Providers Care Wafer Cleaner Name Role Phone JEVON MCLEAN Unavailable PROBLEMS Type Condition ICD9-CM Code ABM62-HV Code Onset Dates Condition Status SNOMED Code Problem Other chronic pain G89.29 Active 36444512 Problem Pain in left foot M79.672 Active 761235898974835 Problem Plantar wart of right foot B07.0 Active 92202952 Problem Obesity (BMI 30-39.9) E66.9 Active 483152753 Problem Heartburn R12 Active 23569009 Problem Rhinosinusitis J32.9 Active 72280714 Problem Other obesity due to excess calories E66.09 Active 316655680 Problem Pain in right foot M79.671 Active 83857206321803820 Problem Alternating constipation and diarrhea R19.8 Active 682435386 Problem Acute non-recurrent maxillary sinusitis J01.00 Active 34912293 Problem Essential hypertension I10 Active 99521546 Problem Bilateral low back pain without sciatica M54.5 Active 160116713 Problem Irritable bowel syndrome without diarrhea K58.9 Active 98779967 Problem Bilateral low back pain, with sciatica presence unspecified M54.5 Active 486881499 Problem High risk bisexual behavior Z72.53 Active 492032077 Problem Long-term use of high-risk medication Z79.899 Active 509507106 Problem Pre-diabetes R73.03 Active 709706956 Problem Impacted cerumen of right ear H61.21 Active 35034423 Problem Anxiety F41.9 Active 20739732 Problem Folliculitis L73.9 Active 14035713 ALLERGIES No Information ENCOUNTERS Encounter Location Date Diagnosis [facility] [address] [facility] [id number] [address] Nov, [facility] [address] [id number] [address] Oct, Abscess of groin, left L02.214 and Pre-diabetes R73.03 [facility] [address] [address]- [address] 24 Sep, 2017 Pre-diabetes R73.03 [facility] [id number] [place] [address] 44688- 9056 Aug, [facility] [address] [address]- 3890 Jul, Bilateral low back pain without sciatica M54.5 [facility] [address] 9[address]32- 0704 Jun, [facility] [address] 50583- 9297 Jun, [facility] [address] 52326- 9528 Jun, [facility] [id number] [place] [address] 45413- 5808 May, [facility] [address] 18701- 5145 May, Ingrown left greater toenail L60.0 [facility] [id number] [place] [address] 23987- 6432 May, [facility] [id number] [place] [address] 10515 -7776 May, Influenza A J10.1 ; Fever R50.9 and Body aches R52 [facility] [address] 41028- 9257 Apr, [facility] [address] 22880- 4658 Apr, [facility] [id number] [place] [address] 78469- 4938 Apr, [place] [id number] [place] [address] 66661- 1705 05 Apr, 2017 Abscess L02.91 and Obesity (BMI 30-39.9) E66.9 [place] [id number] [place] [address] 26380- 9873 Apr, [place] [address] 55702- 3923 Apr, [place] [address] 05269- 9920 Mar, Acute non-recurrent maxillary sinusitis J01.00 [place] [address] 53643- 7993 Feb, Heartburn R12 [place] [address] 42446- 5994 Feb, Heartburn R12 ; Low back pain M54.5 ; Essential hypertension I10 ; Bilateral low back pain without sciatica M54.5 ; Anxiety F41.9 ; Pre-diabetes R73.03 ; Other obesity due to excess calories E66.09 ; Alternating constipation and diarrhea R19.8 ; Dyspepsia R10.13 ; Generalized abdominal pain R10.84 ; Rhinosinusitis J32.9 and Boil L02.92 [place] [id number] [place] [address] 99521- 2967 Jan, Heartburn R12 [place] [id number] [place] [address] 29296- 0426 Jan, [place] [id number] [place] [address] 23034- 3824 Jan, [place] [address] 08713- 4012 Jan, Acute seasonal allergic rhinitis due to pollen J30.1 and Irritable bowel syndrome without diarrhea K58.9 [place] [address] 92648- 8029 Dec, Low back pain M54.5 and Acute cystitis with hematuria N30.01 [facility] [id number] [place] [address] 54857- 1895 Dec, Low back pain M54.5 and Acute cystitis with hematuria N30.01 [place] [address] 44747- 9080 Dec, Heartburn R12 ; Essential hypertension I10 ; Acute non- recurrent maxillary sinusitis J01.00 ; Bilateral low back pain without sciatica M54.5 ; Anxiety F41.9 ; Pre-diabetes R73.03 ; Pain in right foot M79.671 ; Pain in left foot M79.672 ; Other obesity due to excess calories E66.09 and Acute cystitis with hematuria N30.01 [place] [address] 86451- 0513 Dec, Bilateral low back pain without sciatica M54.5 ; Acute non- recurrent maxillary sinusitis J01.00 and Pre-diabetes R73.03 [place] [id number] [place] [address] 12871- 1969 Oct, [facility] [address] 12232 -4152 Aug, [facility] [id number] [place] [address] 81684 -7024 Aug, Acute vaginitis N76.0 ; Urinary frequency R35.0 ; Screen for STD (sexually transmitted disease) Z11.3 and Abscess L02.91 [place] [id number] [place] [address] 15871- 4322 Aug, Plantar wart of right foot B07.0 [place] [address] 05859- 5097 Jul, Plantar wart of right foot B07.0 [place] [address] 95300- 3741 Jun, [facility] [id number] [place] [address] 21954- 4826 Jun, Heartburn R12 ; Essential hypertension I10 ; Anxiety F41.9 ; Folliculitis L73.9 and Plantar wart of right foot B07.0 [place] [id number] [place] [address] 81673- 4639 Jun, [facility] [address] 74556 -1589 May, Low back pain M54.5 and Other chronic pain G89.29 [place] [address] 13445- 6999 May, [place] [id number] [place] [address] 96669- 2037 May, [place] [address] 98123- 5185 May, Heartburn R12 ; Bilateral low back pain without sciatica M54.5 ; Essential hypertension I10 ; Long-term use of high-risk medication Z79.899 ; Anxiety F41.9 ; Impacted cerumen of right ear H61.21 ; Folliculitis L73.9 ; High risk bisexual behavior Z72.53 and General medical exam Z00.00 [place] [id number] [place] [address] 55730- 2192 May, [place] [id number] [place] [address] 44280- 0742 May, [place] [id number] [place] [address] 81771- 6176 Mar, Acute nasopharyngitis J00 ; Acute intractable tension-type headache G44.201 and Cough R05 [place] [id number] [place] [address] 64325- 1910 Jan, [facility] [id number] [place] [address] 85011 -9700 Jan, Abscess L02.91 [facility] [address] [address] Jan, Urinary urgency R39.15 and Urinary tract infection without hematuria, site unspecified N39.0 [facility] [address] [address]- 5810 Jan, [facility] [id number] [place] [address] 94235- 9106 Jan, [facility] [id number] [place] [address] 87152- 4153 Dec, [facility] [id number] [place] [address] 21650- 6485 Dec, Dermatofibroma D23.9 [facility] [id number] [place] [address] 01612- 0551 September, [facility] [address] [id number] [address]- 1668 Aug, [facility] [address] [id number] [address]- 6893 Aug, Pain in left knee M25.562 ; Heartburn R12 ; Bilateral low back pain without sciatica M54.5 ; Essential hypertension I10 ; Ingrown left big toenail L60.0 ; Chronic pain G89.29 ; Irritable bowel syndrome with constipation K58.9 and Skin infection L08.9 [facility] [address], [place] [address]- 1097 Aug, [facility] [address], [place] [address]- 8247 Jul, [facility] [address] [id number] [address]- 7930 Jun, [facility] [address] [address]- 2641 Jun, [facility] [id number] [place] [address] 66675- 0915 Jun, [facility] [id number] [place] [address] 25268- 9964 Jun, [facility] [id number] [place] [address] 65987- 4412 Jun, Upper respiratory infection J06.9 ; Bilateral low back pain without sciatica M54.5 and Headache R51 [facility] [id number] [place] [address] 89115- 9204 May, [facility] [id number] [place] [address] 45379- 8623 Apr, Bilateral low back pain without sciatica M54.5 ; Upper respiratory infection J06.9 and Yeast dermatitis B37.2 [facility] [id number] [place] [address] 80717- 8326 Apr, [facility] [id number] [place] [address] 55680- 8947 Apr, [facility] [id number] [place] [address] 83644- 4614 Feb, [facility] [id number] [place] [address] 11012- 9449 Feb, [facility] [id number] [place] [address] 90977- 4193 Feb, [facility] [id number] [place] [address] 13572- 2220 Feb, Essential hypertension I10 ; Heartburn R12 ; Irritable bowel syndrome without diarrhea K58.9 ; Bilateral low back pain, with sciatica presence unspecified M54.5 and Upper respiratory infection J06.9 [facility] [id number] [place] [address] 18351- 7294 Feb, [facility] [id number] [place] [address] 08486- 2214 Feb, Generalized anxiety disorder F41.1 and Grief F43.20 [place] [id number] [place] [address] 57738- 4363 Jan, [place] [id number] [place] [address] 40863- 4597 Jan, Back pain 724.5 ; Upper respiratory infection 465.9 ; HTN ( hypertension) 401.9 and Dyspepsia 536.8 [place] [address] 20936- 0590 Dec, [place] [id number] [place] [address] 38981- 5279 Nov, Back pain 724.5 ; Abdominal pain, bilateral lower quadrant 789.03 ; GERD (gastroesophageal reflux disease) 530.81 ; Upper respiratory infection 465.9 ; Dysuria 788.1 and HTN (hypertension) 401.9 [place] [id number] [place] [address] 91259- 2695 Nov, [place] [id number] [place] [address] 15518- 6696 Nov, [place] [id number] [place] [address] 18864- 3642 Nov, [place] [id number] [place] [address] 26796- 2431 Nov, Cough 786.2 [place] [id number] [place] [address] 25074- 0538 Nov, Cough 786.2 [place] [id number] [place] [address] 23612- 9241 Oct, Unspecified episodic mood disorder 296.90 and Anxiety disorder, unspecified 300.[address] [id number] [place] [address] 37644- 1972 Oct, Abdominal pain, left upper quadrant 789.02 ; Essential hypertension, benign 401.1 ; Irritable bowel syndrome 564.1 ; Abscess 682.9 ; Heartburn 787.1 ; Acute sinusitis, unspecified 461.9 ; Muscle spasm of back 724.8 ; Cough 786.2 and Skin tag 701.9 [facility] [address] [address]- 7139 September, [facility] [id number] [place] [address] 11511- 5391 September, [facility] [id number] [place] [address] 45202- 7824 September, [facility] [id number] [place] [address] 66032- 5531 Aug, [facility] [id number] [place] [address] 90544- 6137 Aug, [facility] [id number] [place] [address] 90531- 1420 Jul, [facility] [id number] [address]- 6493 Jul, [facility] [id number] [place] [address] 83065- 6412 Jul, [facility] [id number] [address]- 5294 Jul, [facility] [address] [address]- 7698 Jul, [facility] [address], [place] [address]- 9977 Jul, [facility] [address] [place] [address] 44515- 1202 Jul, [facility] [address] [address]- 3568 Jul, [facility] [address] [address]- 7984 Jul, [facility] [place] [facility] [address] [facility] [id number] [place] [address]- 5753 Jul, 2014 [facility] [place] [facility] [address] [id number] [place] [address]- 3968 Jul, [facility] [place] [facility] [address] [id number] [place] [address]6 Jul, 2014 [facility] [place] [facility] [address] [id number] [place] [address]- 4555 Jul, 2014 [facility] [place] [facility] [address] [id number] [place] [address]- 9988 Jul, 2014 [facility] [place] [facility] [address] [id number] [place] [address]- 5887 Jul, 2014 [facility] [place] [facility] [address] [facility] [id number] [place] [address]- 2805 Jul, 2014 [facility] [place] [facility] [address] [id number] [place] [address]- 9242 Jul, 2014 [facility] [place] [facility] [address] [id number] [place] [address]- 3395 Jun, 2014 [facility] [place] [facility] [address] [facility] [id number] [place] [address]- 5534 Jun, 2014 [facility] [place] [facility] [address] [facility] [id number] [place] [address]- 7722 Jun, 2014 [facility] [place] [facility] [address] [facility] [id number] [place] [address]- 0925 Jun, 2014 [facility] [place] [facility] [address] [facility] [id number] [place] [address]- 3848 Jun, 2014 [facility] [place] [facility] [address] [id number] [place] [address]- 8781 Jun, 2014 [facility] [place] [facility] [address] [facility] [id number] [place] [address]- 1335 Jun, 2014 [facility] [place] [facility] [address] [facility] [id number] [address]- 5772 Jun, [facility] [address] [id number] [place] [address]- 0928 Apr, [facility] [place] [facility] [address] [id number] [place]21 Apr, [facility] [place] [facility] [address] [id number] [place] [address]- 1055 Apr, [facility] [place] [facility] [address] [id number] [place] [address]- 6915 Apr, [facility] [place] [facility] [address] [id number] [place] [address]- 9019 Apr, [facility] [place] [facility] [address] [id number] [place] [address]- 8302 Apr, [facility] [place] [facility] [address] [id number] [place] [address]- 2866 Apr, [facility] [place] [facility] [address] [id number] [place] [address]- 0722 Apr, [facility] [place] [facility] [address] [id number] [place] [address]- 9075 Apr, [facility] [place] [facility] [address] [id number] [place] [address]- 9451 Apr, [facility] [place] [facility] [address] [id number] [place] [address]- 8907 Apr, [facility] [place] [facility] [address] [id number] [place] [address]- 8700 Apr, [facility] [place] [facility] [address] [id number] [place] [address]- 7030 Apr, [facility] [place] [facility] [address] [id number] [place] [address]- 8197 Apr, [facility] [place] [facility] [address] [id number] [place] [address]- 6753 Apr, [facility] [place] [facility] [address] [id number] [place] [address]- 1416 Feb, [facility] [place] [facility] [address] [id number] [place] [address]- 3895 Feb, [facility] [place] [facility] [address] [id number] [place] [address]- 9011 Feb, [facility] [place] [facility] [address] [id number] [place] [address]- 2133 Feb, [facility] [place] [facility] [address] [id number] [place] [address]- 2190 Feb, [facility] [place] [facility] [address] [id number] [place] [address]- 9209 Feb, [facility] [place] [facility] [address] [id number] [place] [address]- 7575 Jan, 2013 [facility] [place] [facility] [address] [id number] [place] [address]- 0610 Jan, 2013 [facility] [place] [facility] [address] [id number] [place] [address]- 7368 Jan, 2013 [facility] [place] [facility] [address] [id number] [place] [address]- 7773 Jan, 2013 [facility] [place] [facility] [address] [id number] [place] [address]- 9959 Jan, 2013 [facility] [place] [facility] [address] [id number] [place] [address]- 4174 Jan, 2013 [facility] [place] [facility] [address] [id number] [place] [address]- 2274 Dec, [facility] [place] [facility] [address] [id number] [place] [address]- 7604 Dec, [facility] [place] [facility] [address] [id number] [place] [address]- 7052 Dec, [facility] [place] [facility] [address] [id number] [place] [address]- 2948 Dec, [facility] [place] [facility] [address] [id number] [place] [address]- 7812 Nov, [facility] [place] [facility] [address] [id number] [place] [address]- 0591 Nov, [facility] [place] [facility] [address] [id number] [place] [address]- 2137 Nov, [facility] [place] [facility] [address] [id number] [place] [address]- 4951 Nov, [facility] [place] [facility] [address] [id number] [place] [address]- 7042 Nov, [facility] [place] [facility] [address] [id number] [place] [address]- 8382 Nov, [facility] [place] [facility] [address] [id number] [place] [address]- 0761 Nov, [facility] [place] [facility] [address] [id number] [place] [address]- 6227 Nov, [facility] [place] [facility] [address] [id number] [place] [address]- 6137 Oct, [facility] [place] [facility] [address] [id number] [place] [address]- 6706 Oct, [facility] [place] [facility] [address] [id number] [place] [address]- 7272 Oct, [facility] [place] [facility] [address] [id number] [place] [address]- 8788 Oct, [facility] [place] [facility] [address] [id number] [place] [address]- 1577 Oct, [facility] [place] [facility] [address] [id number] [place] [address] Oct, [facility] [place] [facility] [address] [id number] [place] [address] Oct, [facility] [place] [facility] [address] [id number] [place] [address] Oct, [facility] [place] [facility] [address] [id number] [place] [address] 2004 Oct, [facility] [place] [facility] [address] [id number] [place] [address] Oct, [facility] [place] [facility] [address] [id number] [place] [address] Oct, [facility] [place] [facility] [address] [id number] [place] [address] 23 Oct, 2013 [facility] [place] [facility] [address] [id number] [place] [address] 18 Oct, 2013 [facility] [place] [facility] [address] [id number] [place] [address] 18 Oct, 2013 [facility] [place] [facility] [address] [id number] [place] [address] 17 Oct, 2013 [facility] [place] [facility] [address] [id number] [place] [address] 17 Oct, 2013 [facility] [place] [facility] [address] [id number] [place] [address]- [address] 16 Oct, 2013 [facility] [place] [facility] [address] [facility] [id number] [place] [address] 16 Oct, 2013 [facility] [place] [facility] [address] [id number] [place] [address] 13 Oct, 2013 [facility] [place] [facility] [address] [id number] [place] [address]- [address] 13 Oct, 2013 [facility] [place] [facility] [address] [id number] [place] [address]- [address] 11 Oct, 2013 [facility] [place] [facility] [address] [id number] [place] [address] Oct, [facility] [place] [facility] [address] [id number] [place] [address]- [address]26 09 Oct, 2013 [facility] [place] [facility] [address] [id number] [place] [address] Oct, [facility] [place] [facility] [address] [id number] [place] [address] Oct, [facility] [place] [facility] [address] [id number] [place] [address] Oct, [facility] [place] [facility] [address] [id number] [place] [address]- [address]165 Oct, [facility] [place] [facility] [address] [id number] [place] [address]- [address] Oct, [facility] [place] [facility] [address] [id number] [place] [address]27 Oct, [facility] [place] [facility] [address] [id number] [place] [address] Oct, [facility] [place] [facility] [address] [id number] [place] [address] September, [facility] [place] [facility] [address] [id number] [place] [address] September, [facility] [place] [facility] [address] [id number] [place] [address] September, [facility] [place] [facility] [address] [id number] [place] [address] September, [facility] [place] [facility] [address] [id number] [place] [address] September, [facility] [place] [facility] [address] [id number] [place] [address] September, [facility] [place] [facility] [address] [id number] [place] [address] September, [facility] [place] [facility] [address] [id number] [place] [address] September, [facility] [place] [facility] [address] [id number] [place] [address] 1460 September, [facility] [place] [facility] [address] [id number] [place] [address]- [address]99 September, [facility] [place] [facility] [address] [id number] [place] [address] 87[address] September, [facility] [place] [facility] [address] [id number] [place] [address] September, [facility] [place] [facility] [address] [id number] [place] [address] September, [facility] [place] [facility] [address] [id number] [place] [address]- [address] September, [facility] [place] [facility] [address] [id number] [place] [address] 2498 September, [facility] [place] [facility] [address] [id number] [place] [address]- 5664 September, [facility] [place] [facility] [address] [id number] [place] [address] September, [facility] [place] [facility] [address] [id number] [place] [address] 2656 September, [facility] [place] [facility] [address] [id number] [place] [address] 4210 Aug, [facility] [place] [facility] [address] [id number] [place] [address] 8040 Aug, [facility] [place] [facility] [address] [id number] [place] [address] 6232 Aug, [facility] [place] [facility] [address] [id number] [place] [address] 1422 Aug, [facility] [place] [facility] [address] [id number] [place] [address] 9193 Aug, [facility] [place] [facility] [address] [id number] [place] [address]- 5883 Aug, [facility] [place] [facility] [address] [id number] [place] [address] 2010 Jul, [facility] [place] [facility] [address] [id number] [place] [address] 1290 Jul, [facility] [place] [facility] [address] [id number] [place] [address] 6918 Jul, [facility] [place] [facility] [address] [id number] [place] [address] 5833 Jul, [facility] [place] [facility] [address] [id number] [place] [address] 4697 Jun, [facility] [place] [facility] [address] [id number] [place] [address]- 9413 Jun, [facility] [place] [facility] [address] [id number] [place] [address]- 1755 Jun, [facility] [place] [facility] [address] [id number] [place] [address]- 3729 Jun, [facility] [place] [facility] [address] [id number] [place] [address]- 4374 Mar, [facility] [place] [facility] [address] [id number] [place] [address]- 0051 Mar, [facility] [place] [facility] [address] [id number] [place] [address]- 1420 Mar, [facility] [place] [facility] [address] [id number] [place] [address]- 2210 Mar, [facility] [place] [facility] [address] [id number] [place] [address]- 0714 Feb, [facility] [place] [facility] [address] [id number] [place] [address]- 3091 Feb, [facility] [place] [facility] [address] [id number] [place] [address]- 4067 Feb, [facility] [place] [facility] [address] [id number] [place] [address]- 7515 Jan, [facility] [place] [facility] [address] [id number] [place] [address]- 0620 Jan, [facility] [place] [facility] [address] [id number] [place] [address]- 5332 Jan, [facility] [place] [facility] [address] [id number] [place] [address]- 8039 Jan, [facility] [place] [facility] [address] [id number] [place] [address]- 3668 Dec, [facility] [place] [facility] [address] [id number] [place] [address]- 1160 Dec, [facility] [place] [facility] [address] [id number] [place] [address]- 6776 Dec, [facility] [place] [facility] [address] [id number] [place] [address]- 4703 Dec, [facility] [place] [facility] [address] [id number] [place] [address]- 5342 Nov, [facility] [place] [facility] [address] [id number] [place] [address]- 3811 Nov, [facility] [place] [facility] [address] [id number] [place] [address]- 5851 Nov, [facility] [place] [facility] [address] [id number] [place] [address]- 0115 Nov, [facility] [place] [facility] [address] [id number] [place] [address]- 3650 Nov, [facility] [place] [facility] [address] [id number] [place] [address]- 9209 Nov, [facility] [place] [facility] [address] [id number] [place] [address]- 2462 Oct, [facility] [place] [facility] [address] [id number] [place] [address]- 2996 Oct, [facility] [place] [facility] [address] [id number] [place] [address]- 6142 25 Oct, 2012 [facility] [address] [id number] [place] [address]- 3865 21 Oct, 2012 [facility] [place] [facility] [address] [id number] [place] [address]- 4254 17 Oct, 2012 [facility] [place] [facility] [address] [id number] [place] [address]- 7373 16 Oct, 2012 [facility] [place] [facility] [address] [id number] [place] [address]- 9035 14 Oct, 2012 [facility] [place] [facility] [address] [id number] [place] [address]- 9468 13 Oct, 2012 [facility] [place] [facility] [address] [id number] [place] [address]- 0130 Oct, [facility] [address] [id number] [place] [address]- 9696 07 Oct, 2012 [facility] [place] [facility] [address] [id number] [place] [address]- 9038 September, [facility] [place] [facility] [address] [id number] [place] [address]- 3634 September, [facility] [place] [facility] [address] [id number] [place] [address]- 7736 September, [facility] [place] [facility] [address] [id number] [place] [address]- 3193 Aug, [facility] [place] [facility] [address] [id number] [place] [address]- 0767 Aug, [facility] [place] [facility] [address] [id number] [place] [address]- 1305 Aug, [facility] [place] [facility] [address] [id number] [place] [address]- 7830 Aug, [facility] [place] [facility] [address] [id number] [place] [address]- 7420 Jul, [facility] [place] [facility] [address] [id number] [place] [address]- 2989 29 Jul, 2012 [facility] [address] [id number] [place] [address]- 4776 Jul, [facility] [place] [facility] [address] [id number] [place] [address]- 1118 Jul, [facility] [address] [id number] [place] [address]- 7082 Jul, [facility] [address] [id number] [place] [address]- 9491 Jul, [facility] [address] [id number] [place] [address]- 2158 May, [facility] [address] [id number] [place] [address]- 0664 29 May, 2012 [facility] [address] [id number] [place] [address]- 6444 May, [facility] [address] [id number] [place] [address]- 3621 May, [facility] [address] [id number] [place] [address] 1867 May, [facility] [address] [id number] [place] [address]- 4654 May, [facility] [address] [id number] [place] [address]- 7886 May, [facility] [address] [id number] [place] [address]- 4285 18 May, 2012 [facility] [place] [facility] [address] [id number] [place] [address]- 0877 May, [facility] [place] [facility] [address] [id number] [place] [address]- 4519 17 May, 2012 [facility] [place] [facility] [address] [id number] [place] [address]- 5548 May, [facility] [place] [facility] [address] [id number] [place] [address]- 4619 Apr, [facility] [place] [facility] [address] [id number] [place] [address]- 1266 Apr, [facility] [place] [facility] [address] [id number] [place] [address]- 8928 Apr, [facility] [place] [facility] [address] [id number] [place] [address]- 7220 Apr, [facility] [place] [facility] [address] [id number] [place] [address]- 9846 Apr, [facility] [place] [facility] [address] [id number] [place] [address]- 5382 Apr, [facility] [place] [facility] [address] [id number] [place] [address]- 6483 Mar, [facility] [place] [facility] [address] [id number] [address]- 1687 Mar, [facility] [place] [facility] [address] [id number] [place] [address]- 0064 Mar, [facility] [place] [facility] [address] [id number] [place] [address]- 3209 Mar, [facility] [place] [facility] [address] [id number] [address]- 9095 Mar, [facility] [place] [facility] [address] [id number], [place] [address]- 2818 Mar, [facility] [place] [facility] [address] [id number] [place] [address]- 1591 Mar, [facility] [place] [facility] [address] [id number], [place] [address]- 6498 Mar, [facility] [place] [facility] [address] [id number] [place] [address]- 5091 Feb, [facility] [place] [facility] [address] [id number] [place] [address]- 5465 23 Feb, 2012 [facility] [place] [facility] [address] [id number] [place] [address]- 9940 16 Feb, 2012 [facility] [place] [facility] [address] [id number] [place] [address]- 7806 15 Feb, 2012 [facility] [place] [facility] [address] [id number] [place] [address]- 9462 15 Feb, 2012 [facility] [place] [facility] [address] [id number] [place] [address]- 3382 13 Feb, 2012 [facility] [place] [facility] [address] [id number] [place] [address]- 1375 Feb, [facility] [place] [facility] [address] [id number] [place] [address]- 6670 Feb, [facility] [place] [facility] [address] [id number] [place] [address]- 1288 Feb, [facility] [place] [facility] [address] [id number] [place] [address]- 7618 Feb, [facility] [place] [facility] [address] [id number] [place] [address]- 5033 Feb, [facility] [place] [facility] [address] [id number] [place] [address]- 9206 Feb, [facility] [place] [facility] [address] [id number] [place] [address]- 4534 Feb, [facility] [place] [facility] [address] [id number] [place] [address]- 1501 Feb, [facility] [place] [facility] [address] [id number] [place] [address]- 2933 Feb, [facility] [place] [facility] [address] [id number] [place] [address]- 3849 Feb, [facility] [place] [facility] [address] [id number] [place] [address]- 0132 Feb, [facility] [place] [facility] [address] [id number] [place] [address]- 8536 Feb, [facility] [place] [facility] [address] [id number] [place] [address]- 6386 Jan, [facility] [place] [facility] [address] [id number] [place] [address]- 3476 13 Jan, 2012 [facility] [place] [facility] [address] [id number] [place] [address]- 7362 11 Jan, 2012 [facility] [place] [facility] [address] [id number] [place] [address]- 8088 10 Jan, 2012 [facility] [place] [facility] [address] [id number] [place] [address]- 6219 05 Jan, 2012 [facility] [place] [facility] [address] [id number] [place] [address]- 1733 Dec, [facility] [place] [facility] [address] [id number] [place] [address]- 9888 Dec, [facility] [place] [facility] [address] [id number] [place] [address]- 1802 Dec, [facility] [place] [facility] [address] [id number] [place] [address]- 7649 Dec, [facility] [place] [facility] [address] [id number] [place] [address]- 0251 Dec, [facility] [place] [facility] [address] [id number] [place] [address]- 4910 Dec, [facility] [place] [facility] [address] [id number] [place] [address]- 5264 Nov, [facility] [place] [facility] [address] [id number] [place] [address]- 4060 Nov, [facility] [place] [facility] [address] [id number] [place] [address]- 7143 Nov, [facility] [place] [facility] [address] [id number] [place] [address]- 9021 Nov, [facility] [address] [id number] [place] [address]- 3367 Nov, [facility] [place] [facility] [address] [id number] [place] [address]- 5775 Oct, [facility] [place] [facility] [address] [id number] [place] [address]- 8457 Oct, [facility] [place] [facility] [address] [id number] [place] [address]- 8383 Oct, [facility] [place] [facility] [address] [id number] [place] [address]- 2860 September, [facility] [place] [facility] [address] [id number] [place] [address]- 1137 September, [facility] [place] [facility] [address] [id number] [place] [address]- 2978 September, [facility] [place] [facility] [address] [id number] [place] [address]- 4682 September, [facility] [place] [facility] [address] [id number] [place] [address]- 3339 September, [facility] [place] [facility] [address] [facility] [id number] [place] [address]- 3562 September, [facility] [place] [facility] [address] [id number] [place] [address]- 7518 Aug, [facility] [place] [facility] [address] [id number] [place] [address]- 6955 Aug, [facility] [place] [facility] [address] [id number] [place] [address]- 7424 Aug, [facility] [place] [facility] [address] [id number] [place] [address]- 2462 Jun, [facility] [place] [facility] [address] [id number] [place] [address]- 7224 Jun, [facility] [place] [facility] [address] [id number] [place] [address]- 2294 Jun, [facility] [address] [id number] [place] [address]- 8524 Jun, [facility] [place] [facility] [address] [id number] [place] [address]- 3911 May, [facility] [place] [facility] [address] [id number] [place] [address]- 0839 May, [facility] [place] [facility] [address] [id number] [place] [address]- 8001 May, [facility] [address] [id number] [place] [address]- 1687 May, [facility] [address] [id number] [place] [address]- 2801 May, [facility] [address] [id number] [place] [address]- 9816 Apr, [facility] [address] [id number] [place] [address]- 2365 Apr, [facility] [address] [id number] [place] [address]- 1666 Apr, [facility] [place] [facility] [address] [id number] [place] [address]- 8167 Apr, [facility] [address] [id number] [place] [address]- 7640 Apr, [facility] [place] [facility] [address] [id number] [place] [address]- 6458 Apr, [facility] [place] [facility] [address] [id number] [place] [address]- 2086 Apr, [facility] [place] [facility] [address] [id number] [place] [address]- 5369 Mar, [facility] [place] [facility] [address] [id number] [place] [address]- 8600 Mar, [facility] [place] [facility] [address] [id number] [place] [address] Mar, [facility] [place] [facility] [address] [id number] [place] [address]- 6830 Feb, [facility] [place] [facility] [address] [id number] [place] 5942 Feb, [facility] [place] [facility] [address] [id number] [place] [address]- 8703 Feb, [facility] [place] [facility] [address] [id number] [place] [address]- 3306 Feb, [facility] [place] [facility] [address] [id number] [place] [address]- 2597 Feb, [facility] [place] [facility] [address] [id number] [place] [address]- 0087 Feb, [facility] [place] [facility] [address] [id number] [place] [address]- 9244 Jan, [facility] [place] [facility] [address] [id number] [place] [address]- 6928 Jan, [facility] [place] [facility] [address] [id number] [place] [address]- 9495 September, [facility] [place] [facility] [address] [id number] [place] [address]- 2019 Jun, [facility] [place] [facility] [address] [id number] [place] [address]- 9556 Apr, [facility] [place] [facility] [address] [id number] [place] [address]- 6276 Apr, [facility] [place] [facility] [address] [id number] [place] [address]- 3446 Apr, [facility] [place] [facility] [address] [id number] [place] [address]- 2449 Apr, [facility] [place] [facility] [address], [place] [address]- 2116 Apr, [facility] [address], [place] [address]- 8868 Mar, [facility] [address] [address] 4562 Mar, [facility] [address], [place] [address]- 1144 Mar, [facility] [address], [place] [address]- 8398 Mar, [facility] [id number] [place] [address]- 5046 Feb, [facility] [id number] [place] [address]- 4325 15 Jan, 2010 [facility] [id number] [place] [address]- 9380 Mar, [facility] [address], [place] [address]- 5759 15 Jan, 2009 [facility] [address], [place] [address]- 3693 Oct, [facility] [address], [place] [address]- 7816 Apr, IMMUNIZATIONS No Known Immunizations SOCIAL HISTORY Never Assessed REASON FOR VISIT Other PLAN OF CARE VITAL SIGNS MEDICATIONS Unknown [...]
--- OUTSIDE RECORDS SUMMARY | 2018-03-22 22:04 | XMS REPORT ---
Author Author SERGO VALDES Organization [facility] Address [address] [place] [address] Care Team Providers Care Zipper Slide Attacher Name Role Phone SERGO VALDES Unavailable PROBLEMS Type Condition ICD9-CM Code OWZ69-UN Code Onset Dates Condition Status SNOMED Code Problem Upper respiratory infection J06.9 Active 18386466 Problem Irritable bowel syndrome without diarrhea K58.9 Active 13836021 Problem Bilateral low back pain, with sciatica presence unspecified M54.5 Active 430134923 Assessment Urinary tract infection without hematuria, site unspecified N39.0 Jan, Active 38511576 Assessment Urinary urgency R39.15 Jan, Active 71542287 Problem Pain in left knee M25.562 Active 90658629 Problem Ingrown left big toenail L60.0 Active 736758202 Problem Essential hypertension I10 Active 54078423 Problem Heartburn R12 Active 45401854 Problem Bilateral low back pain without sciatica M54.5 Active 254236344 Problem Yeast dermatitis B37.2 Active 96113622 ALLERGIES Substance Reaction Event Type Date Status Penicillin V Potassium anaphylaxis Drug Allergy Jan, Active surgical tape "tears skin off" Non Drug Allergy Jan, Active SOCIAL HISTORY No smoking Hx information available PLAN OF CARE VITAL SIGNS Height 66 in 2016-01-22 Weight 246 lbs 2016-01-22 Heart Rate 86 bpm 2016-01-22 Respiratory Rate 16 2016-01-22 BMI 39.70 kg/m2 2016-01-22 Blood pressure systolic 116 mmHg 2016-01-22 Blood pressure diastolic 74 mmHg 2016-01-22 MEDICATIONS Medication Instructions Dosage Frequency Start Date End Date Duration Status Ibuprofen 800 MG Orally Three times a day 1 tablet 8h 30 Active Lisinopril-Hydrochlorothiazide 10-12.5 MG Orally Once a day 1 tablet 24h 30 Active Alprazolam 1 MG TAKE ONE TABLET BY MOUTH THREE TIMES DAILY NEEDED Active Bactrim DS 800-160 MG Orally Twice a day 1 tablet 12h 10 Jan, 2016Jan 10 day(s) Active Omeprazole 20 MG Orally Once a day 1 capsule 24h 20 Jun, 2014 30 days Active Linzess 145 MCG TAKE ONE CAPSULE BY MOUTH ONCE DAILY 30 Active Flexeril 10 MG Orally 2 times a day s needed 1 tablet Active Dicyclomine HCl 10 MG TAKE ONE CAPSULE BY MOUTH THREE TIMES DAILY 30 Active RESULTS Name Result Date Reference Range UA LONG DIP (IN HOUSE) 2016-01-22 Lot # [id number] Exp date 06/2016 Clarity cloudy Color yellow Odor no GLU negative RANDALL negative KET negative SG 1.025 BLO Negative pH 7.0 Protein negative URO 0.2 NIT negative TRAVIS 1+ Lot # [id number] Exp date 03/2017 PROCEDURES Procedure Date Ordered Related Diagnosis Body Site URINALYSIS, AUTO, W/O SCOPE Jan 22, 2016 Office Visit, Est Pt., Level 3 Jan 22, 2016 IMMUNIZATIONS No Known Immunizations
--- OUTSIDE RECORDS SUMMARY | 2018-03-22 22:04 | XMS REPORT ---
Author Author BRITANY BOSCH Organization [employer] Address Unknown Phone Unavailable Care Team Providers Care Healthcare Management Name Role Phone BRITANY BOSCH CP Unavailable [...] Instructions Start Date End Date Status Dosage ProAir HFA [facility] [place] [id number] 108 (90 Base) MCG/ACT Inhalation every 6 hrs, PRN Jun 21, 2015 2 puffs as needed Results No Known Results Summary Purpose [employer] Submission
--- OUTSIDE RECORDS SUMMARY | 2018-03-22 22:05 | XMS REPORT ---
Author Author BRITANY BOSCH [facility] Address [address] [place] [address] Care Team Providers Care Fruit Loader Name Role Phone DANITZA BRITANY Unavailable PROBLEMS Type Condition ICD9-CM Code BNT03-SI Code Onset Dates Condition Status SNOMED Code Problem Other chronic pain G89.29 Active 72936145 Problem Pain in left foot M79.672 Active [id number] Problem Plantar wart of right foot B07.0 Active 19629243 Problem Obesity (BMI 30-39.9) E66.9 Active 909972009 Problem Heartburn R12 Active 46998431 Problem Rhinosinusitis J32.9 Active 45903212 Problem Other obesity due to excess calories E66.09 Active 764484832 Problem Pain in right foot M79.671 Active 56956759228807800 Problem Alternating constipation and diarrhea R19.8 Active 736139381 Problem Acute non-recurrent maxillary sinusitis J01.00 Active 90240084 Problem Essential hypertension I10 Active 81376397 Problem Bilateral low back pain without sciatica M54.5 Active 334558949 Problem Irritable bowel syndrome without diarrhea K58.9 Active 81384482 Problem Bilateral low back pain, with sciatica presence unspecified M54.5 Active 058111632 Problem High risk bisexual behavior Z72.53 Active 271287542 Problem Long-term use of high-risk medication Z79.899 Active 373728298 Problem Pre-diabetes R73.03 Active 049922975 Problem Impacted cerumen of right ear H61.21 Active 11433673 Problem Anxiety F41.9 Active 96283986 Problem Folliculitis L73.9 Active 77138237 ALLERGIES No Information ENCOUNTERS Encounter Location Date Diagnosis [facility] [address] [facility] [id number] [address] Aug, [facility] [id number] [place] [address] 66247- 8348 Jul, Bilateral low back pain without sciatica M54.5 [facility] [id number] [place] [address] 51868- 1262 Jun, [facility] [id number] [place] [address] 23465- 2135 Jun, [facility] [address] 62043- 8552 Jun, [facility] [id number] [place] [address] 81894- 5079 May, [facility] [address] 85602- 1223 May, Ingrown left greater toenail L60.0 [facility] [address] 50787- 5311 May, [facility] [id number] [place] [address] 00884 -0215 May, Influenza A J10.1 ; Fever R50.9 and Body aches R52 [facility] [id number] [place] [address] 95430- 9184 Apr, [facility] [id number] [place] [address] 57083- 2928 Apr, [facility] [id number] [place] [address] 30092- 6612 Apr, [facility] [id number] [place] [address] 21759- 8024 Apr, Abscess L02.91 and Obesity (BMI 30-39.9) E66.9 [facility] [id number] [place] [address] 89277- 5740 Apr, [facility] [id number] [place] [address] 33942- 6243 Apr, [facility] [id number] [place] [address] 81470- 7139 Mar, Acute non-recurrent maxillary sinusitis J01.00 [place] [address] 25397- 6369 Feb, Heartburn R12 [place] [address] 23947- 4931 Feb, Heartburn R12 ; Low back pain M54.5 ; Essential hypertension I10 ; Bilateral low back pain without sciatica M54.5 ; Anxiety F41.9 ; Pre-diabetes R73.03 ; Other obesity due to excess calories E66.09 ; Alternating constipation and diarrhea R19.8 ; Dyspepsia R10.13 ; Generalized abdominal pain R10.84 ; Rhinosinusitis J32.9 and Boil L02.92 [place] [address] 58097- 3685 Jan, Heartburn R12 [place] [address] 44121- 3557 Jan, [place] [address] 74155- 3575 Jan, [place] [address] 05217- 0261 Jan, Acute seasonal allergic rhinitis due to pollen J30.1 and Irritable bowel syndrome without diarrhea K58.9 [place] [address] 00673- 7500 Dec, Low back pain M54.5 and Acute cystitis with hematuria N30.01 [place] [address] 19275- 7225 Dec, Low back pain M54.5 and Acute cystitis with hematuria N30.01 [place] [id number] [place] [address] 18623- 4140 Dec, Heartburn R12 ; Essential hypertension I10 ; Acute non- recurrent maxillary sinusitis J01.00 ; Bilateral low back pain without sciatica M54.5 ; Anxiety F41.9 ; Pre-diabetes R73.03 ; Pain in right foot M79.671 ; Pain in left foot M79.672 ; Other obesity due to excess calories E66.09 and Acute cystitis with hematuria N30.01 [place] [address] 36681- 4118 Dec, Bilateral low back pain without sciatica M54.5 ; Acute non- recurrent maxillary sinusitis J01.00 and Pre-diabetes R73.03 [place] [address] 92889- 6352 Oct, [facility] [place] [address] 07637 -9348 Aug, [facility] [place] [address] 25057 -6341 Aug, Acute vaginitis N76.0 ; Urinary frequency R35.0 ; Screen for STD (sexually transmitted disease) Z11.3 and Abscess L02.91 [place] [address] 80940- 9766 Aug, Plantar wart of right foot B07.0 [place] [address] 31973- 1958 Jul, Plantar wart of right foot B07.0 [place] [address] 15064- 9802 Jun, [place] [address] 90132- 6730 Jun, Heartburn R12 ; Essential hypertension I10 ; Anxiety F41.9 ; Folliculitis L73.9 and Plantar wart of right foot B07.0 [place] [address] 05140- 7454 Jun, [facility] [place] [address] 39078 -7030 May, Low back pain M54.5 and Other chronic pain G89.29 [place] [address] 48856- 6904 May, [place] [address] 70219- 0187 May, [place] [address] 57995- 5108 May, Heartburn R12 ; Bilateral low back pain without sciatica M54.5 ; Essential hypertension I10 ; Long-term use of high-risk medication Z79.899 ; Anxiety F41.9 ; Impacted cerumen of right ear H61.21 ; Folliculitis L73.9 ; High risk bisexual behavior Z72.53 and General medical exam Z00.00 [place] [address] 10365- 9514 May, [place] [address] 55495- 1440 May, [place] [address] 99856- 3960 Mar, Acute nasopharyngitis J00 ; Acute intractable tension-type headache G44.201 and Cough R05 [place] [id number] [place] [address] 94809- 8195 Jan, [facility] [address] 42049 -3306 Jan, Abscess L02.91 [facility] [address] 13765 -4525 Jan, Urinary urgency R39.15 and Urinary tract infection without hematuria, site unspecified N39.0 [place] [address] 22697- 9990 Jan, [place] [address] 21264- 7211 Jan, [facility] [address] [address]- 0275 Dec, [facility] [id number] [place] [address] 01226- 7242 Dec, Dermatofibroma D23.9 [facility] [id number] [place] [address] 08350- 5230 September, [facility] [id number] [place] [address] 87862- 4196 Aug, [facility] [id number] [place] [address] 14610- 6528 Aug, Pain in left knee M25.562 ; Heartburn R12 ; Bilateral low back pain without sciatica M54.5 ; Essential hypertension I10 ; Ingrown left big toenail L60.0 ; Chronic pain G89.29 ; Irritable bowel syndrome with constipation K58.9 and Skin infection L08.9 [facility] [address] [place] [address] 23412- 3909 Aug, [facility] [id number] [place] [address] 24226- 9663 Jul, [facility] [address] [place] [address] 89532- 9420 Jun, [facility] [address] [place] [address] 75406- 7861 Jun, [facility] [address] [address]- 4248 Jun, [facility] [id number] [place] [address] 79657- 8501 Jun, [facility] [address] [address]- 0015 Jun, Upper respiratory infection J06.9 ; Bilateral low back pain without sciatica M54.5 and Headache R51 [facility] [id number] [place] [address] 42560- 7482 May, [facility] [id number] [place] [address] 15464- 7708 Apr, Bilateral low back pain without sciatica M54.5 ; Upper respiratory infection J06.9 and Yeast dermatitis B37.2 [place] [address] 28674- 2150 Apr, [facility] [id number] [place] [address] 02251- 2281 Apr, [facility] [address] 05750- 8511 Feb, [facility] [id number] [place] [address] 55482- 8244 Feb, [facility] [id number] [place] [address] 36154- 5892 Feb, [facility] [id number] [place] [address] 23152- 7749 Feb, Essential hypertension I10 ; Heartburn R12 ; Irritable bowel syndrome without diarrhea K58.9 ; Bilateral low back pain, with sciatica presence unspecified M54.5 and Upper respiratory infection J06.9 [place] [id number] [place] [address] 97884- 1463 Feb, [place] [id number] [place] [address] 34889- 0722 Feb, Generalized anxiety disorder F41.1 and Grief F43.20 [place] [id number] [place] [address] 60143- 2985 Jan, [place] [id number] [place] [address] 75592- 1962 Jan, Back pain 724.5 ; Upper respiratory infection 465.9 ; HTN ( hypertension) 401.9 and Dyspepsia 536.8 [place] [id number] [place] [address] 05702- 8531 Dec, [facility] [id number] [place] [address] 79307- 2024 Nov, Back pain 724.5 ; Abdominal pain, bilateral lower quadrant 789.03 ; GERD (gastroesophageal reflux disease) 530.81 ; Upper respiratory infection 465.9 ; Dysuria 788.1 and HTN (hypertension) 401.9 [place] [id number] [place] [address] 43534- 9318 Nov, [facility] [id number] [place] [address] 54065- 4598 Nov, [place] [id number] [place] [address] 06285- 4772 Nov, [place] [id number] [place] [address] 40446- 6498 Nov, Cough 786.2 [place] [id number] [place] [address] 32526- 9748 Nov, Cough 786.2 [place] [id number] [place] [address] 54698- 0899 Oct, Unspecified episodic mood disorder 296.90 and Anxiety disorder, unspecified 300.00 [place] [id number] [place] [address] 38520- 1064 Oct, Abdominal pain, left upper quadrant 789.02 ; Essential hypertension, benign 401.1 ; Irritable bowel syndrome 564.1 ; Abscess 682.9 ; Heartburn 787.1 ; Acute sinusitis, unspecified 461.9 ; Muscle spasm of back 724.8 ; Cough 786.2 and Skin tag 701.9 [place] [address] [place] [address] 37588- 7028 September, [place] [id number] [place] [address] 02026- 9339 September, [place] [id number] [address]- 7306 September, [facility] [place] [facility] [address] [id number] [place] [address]- 9627 14 Aug, 2014 [facility] [place] [facility] [address] [id number] [place] [address]- 1636 Aug, [facility] [place] [facility] [address] [id number] [place] [address]- 6380 30 Jul, 2014 [facility] [place] [facility] [address] [id number] [place] [address]- 9966 30 Jul, 2014 [facility] [place] [facility] [address] [id number] [place] [address]- 2605 Jul, [facility] [place] [facility] [address] [id number] [place] [address]- 1387 Jul, [facility] [place] [facility] [address] [id number] [place] [address]- 2416 Jul, [facility] [place] [facility] [address] [id number] [place] [address]- 0597 Jul, [facility] [place] [facility] [address] [id number] [place] [address]- 1304 Jul, [facility] [place] [facility] [address] [id number] [place] [address]- 9255 Jul, [facility] [place] [facility] [address] [id number] [place] [address]- 2578 24 Jul, 2014 [facility] [place] [facility] [address] [id number] [place] [address]- 3148 Jul, [facility] [place] [facility] [address] [id number] [place] [address]- 1346 Jul, [facility] [place] [facility] [address] [id number] [place] [address]- 5166 Jul, [facility] [place] [facility] [address] [id number] [place] [address]- 7031 Jul, [facility] [place] [facility] [address] [id number] [place] [address]- 4009 Jul, 2014 [facility] [place] [facility] [address] [id number] [place] [address]- 5483 Jul, 2014 [facility] [place] [facility] [address] [id number] [place] [address]- 8922 Jul, 2014 [facility] [place] [facility] [address] [id number] [place] [address]- 4877 Jul, 2014 [facility] [place] [facility] [address] [id number] [place] [address]- 0706 Jun, 2014 [facility] [place] [facility] [address] [id number] [place] [address]- 9449 Jun, 2014 [facility] [place] [facility] [address] [id number] [place] [address]- 2859 Jun, 2014 [facility] [place] [facility] [address] [id number] [place] [address]- 7487 Jun, 2014 [facility] [place] [facility] [address] [id number] [place] [address]- 3990 Jun, 2014 [facility] [place] [facility] [address] [id number] [place] [address]- 5798 Jun, 2014 [facility] [place] [facility] [address] [id number] [place] [address]- 7348 Jun, 2014 [facility] [place] [facility] [address] [id number] [place] [address]- 7691 Jun, 2014 [facility] [place] [facility] [address] [id number] [place] [address]- 0256 Apr, [facility] [place] [facility] [address] [id number] [place] [address]- 0576 Apr, [facility] [place] [facility] [address] [id number] [place] [address]- 9193 Apr, [facility] [place] [facility] [address] [id number] [place] [address]- 9171 23 Apr, 2014 [facility] [place] [facility] [address] [id number] [place] [address]- 1021 Apr, [facility] [place] [facility] [address] [id number] [place] [address]- 9897 Apr, [facility] [place] [facility] [address] [id number] [place] [address]- 0959 Apr, [facility] [place] [facility] [address] [id number] [place] [address]- 4769 15 Apr, 2014 [facility] [place] [facility] [address] [id number] [place] [address]- 5334 Apr, [facility] [place] [facility] [address] [id number] [place] [address]- 0281 Apr, [facility] [place] [facility] [address] [id number] [place] [address]- 4270 Apr, [facility] [place] [facility] [address] [id number] [place] [address]- 4386 Apr, [facility] [place] [facility] [address] [id number] [place] [address]- 0063 Apr, [facility] [place] [facility] [address] [id number] [place] [address]- 0172 Apr, [facility] [place] [facility] [address] [id number] [place] [address]- 9314 Apr, [facility] [place] [facility] [address] [id number] [place] [address]- 8397 Feb, [facility] [place] [facility] [address] [id number] [place] [address]- 9942 Feb, [facility] [place] [facility] [address] [id number] [place] [address]- 5908 Feb, [facility] [place] [facility] [address] [id number] [place] [address]- 7312 Feb, [facility] [place] [facility] [address] [id number] [place] [address]- 2676 Feb, [facility] [place] [facility] [address] [id number] [place] [address]- 9028 Feb, [facility] [place] [facility] [address] [id number] [place] [address]- 6239 Jan, [facility] [place] [facility] [address] [id number] [place] [address]- 1407 Jan, 2013 [facility] [place] [facility] [address] [id number] [place] [address]- 6080 Jan, [facility] [place] [facility] [address] [id number] [place] [address]- 4114 Jan, [facility] [place] [facility] [address] [id number] [place] [address]- 3649 Jan, [facility] [place] [facility] [address] [id number] [place] [address]- 8753 Jan, [facility] [place] [facility] [address] [id number] [place] [address]- 6533 Dec, [facility] [place] [facility] [address] [id number] [place] [address]- 3077 Dec, [facility] [place] [facility] [address] [id number] [place] [address]- 4483 Dec, [facility] [place] [facility] [address] [id number] [place] [address]- 6426 Dec, [facility] [place] [facility] [address] [id number] [place] [address]- 8366 Nov, [facility] [place] [facility] [address] [id number] [place] [address]- 1079 Nov, [facility] [place] [facility] [address] [id number] [place] [address]- 6038 Nov, [facility] [place] [facility] [address] [id number] [place] [address]- 0199 Nov, [facility] [place] [facility] [address] [id number] [place] [address]- 2091 Nov, [facility] [place] [facility] [address] [id number] [place] [address]- 7348 Nov, [facility] [place] [facility] [address] [id number] [place] [address]- 6885 Nov, [facility] [place] [facility] [address] [id number] [place] [address]- 1638 Nov, [facility] [place] [facility] [address] [id number] [place] [address]- 9516 Oct, [facility] [place] [facility] [address] [id number] [place] [address]- 8777 Oct, [facility] [place] [facility] [address] [id number] [place] [address]- 8033 Oct, [facility] [place] [facility] [address] [id number] [place] [address]- 0921 Oct, [facility] [place] [facility] [address] [id number] [place] [address]- 1769 Oct, [facility] [place] [facility] [address] [id number] [place] [address]- 7468 Oct, [facility] [place] [facility] [address] [id number] [place] [address]- 2279 Oct, [facility] [place] [facility] [address] [id number] [place] [address]- 2519 Oct, [facility] [place] [facility] [address] [id number] [place] [address]- 0797 Oct, [facility] [place] [facility] [address] [id number] [place] [address]- 7177 Oct, [facility] [place] [facility] [address] [id number] [place] [address]- 4488 Oct, [facility] [place] [facility] [address] [id number] [place] [address]- 9677 23 Oct, 2013 [facility] [place] [facility] [address] [id number] [place] [address]- 6226 18 Oct, 2013 [facility] [place] [facility] [address] [id number] [place] [address]- 0179 18 Oct, 2013 [facility] [place] [facility] [address] [id number] [place] [address]- 8550 17 Oct, 2013 [facility] [place] [facility] [address] [id number] [place] [address]- 8069 17 Oct, 2013 [facility] [place] [facility] [address] [id number] [place] [address]- 8091 16 Oct, 2013 [facility] [place] [facility] [address] [id number] [place] [address]- 8549 16 Oct, 2013 [facility] [place] [facility] [address] [id number] [place] [address]- 6510 Oct, [facility] [place] [facility] [address] [id number] [place] [address]- 4623 Oct, [facility] [place] [facility] [address] [id number] [place] [address]- 9595 Oct, [facility] [place] [facility] [address] [id number] [place] [address]- 1356 Oct, [facility] [place] [facility] [address] [id number] [place] [address]- 1750 Oct, [facility] [place] [facility] [address] [id number] [place] [address] Oct, [facility] [place] [facility] [address] [id number] [place] [address] Oct, [facility] [place] [facility] [address] [id number] [place] [address] 06 Oct, 2013 [facility] [place] [facility] [address] [id number] [place] [address] Oct, [facility] [place] [facility] [address] [id number] [place] [address] Oct, [facility] [place] [facility] [address] [id number] [place] [address] Oct, [facility] [place] [facility] [address] [id number] [place] [address] Oct, [facility] [place] [facility] [address] [id number] [place] [address]- [address] September, [facility] [place] [facility] [address] [id number] [place] [address]- [address] September, [facility] [place] [facility] [address] [id number] [place] [address]- [address] September, [facility] [place] [facility] [address] [id number] [place] [address] September, [facility] [place] [facility] [address] [id number] [place] [address]- [address]15 September, [facility] [place] [facility] [address] [id number] [place] [address]- [address] September, [facility] [place] [facility] [address] [id number] [place] [address]- [address] September, [facility] [place] [facility] [address] [id number] [place] [address] September, [facility] [place] [facility] [address] [id number] [place] [address]- [address] September, [facility] [place] [facility] [address] [id number] [place] [address]- [address]85 September, [facility] [place] [facility] [address] [id number] [place] [address]- [address] September, [facility] [place] [facility] [address] [id number] [place] [address]- [address] September, [facility] [place] [facility] [address] [id number] [place] [address]- [address] September, [facility] [address] [id number] [place] [address]- [address] September, [facility] [place] [facility] [address] [id number] [place] [address]- [address] September, [facility] [place] [facility] [address] [id number] [place] [address]- 8310 September, [facility] [place] [facility] [address] [id number] [place] [address]- [address] September, [facility] [place] [facility] [address] [id number] [place] [address] September, [facility] [place] [facility] [address] [id number] [place] [address]- [address] Aug, [facility] [place] [facility] [address] [id number] [place] [address] Aug, [facility] [address] [id number] [place] [address] Aug, [facility] [place] [facility] [address] [id number] [place] [address] Aug, [facility] [place] [facility] [address] [id number] [place] [address] Aug, [facility] [place] [facility] [address] [id number] [place] [address]- [address] Aug, [facility] [place] [facility] [address] [id number] [place] [address] Jul, [facility] [place] [facility] [address] [id number] [place] [address]- [address] Jul, [facility] [place] [facility] [address] [id number] [place] [address]- [address]56 Jul, [facility] [place] [facility] [address] [id number] [place] [address]- [address]67 Jul, [facility] [place] [facility] [address] [id number] [place] [address]- [address] Jun, [facility] [place] [facility] [address] [id number] [place] [address]- [address] Jun, [facility] [place] [facility] [address] [id number] [place] [address]- [address] Jun, [facility] [place] [facility] [address] [id number] [place] [address]- [address] Jun, [facility] [place] [facility] [address] [id number] [place] [address]- [address] Mar, [facility] [place] [facility] [address] [id number] [place] [address]- [address]69 Mar, [facility] [place] [facility] [address] [id number] [place] [address]- [address] Mar, [facility] [place] [facility] [address] [id number] [place] [address] Mar, [facility] [place] [facility] [address] [id number] [place] [address] Feb, [facility] [place] [facility] [address] [id number] [place] [address] Feb, [facility] [place] [facility] [address] [id number] [place] [address] 54[address] Feb, [facility] [place] [facility] [address] [id number] [place] [address] 2767 Jan, [facility] [place] [facility] [address] [id number] [place] [address]41 20 Jan, 2013 [facility] [place] [facility] [address] [id number] [place] [address]- 7976 12 Jan, 2013 [facility] [place] [facility] [address] [id number] [place] [address]- [address]44 05 Jan, 2013 [facility] [place] [facility] [address] [id number] [place] [address] 2875 Dec, [facility] [place] [facility] [address] [id number] [place] [address]75 Dec, [facility] [place] [facility] [address] [id number] [place] [address] 0837 Dec, [facility] [place] [facility] [address] [id number] [place] [address] 7197 Dec, [facility] [place] [facility] [address] [id number] [place] [address] 3195 Nov, [facility] [place] [facility] [address] [id number] [place] [address]- 4483 Nov, [facility] [place] [facility] [address] [id number] [place] [address] 1853 Nov, [facility] [place] [facility] [address] [id number] [place] [address] 75[address] Nov, [facility] [place] [facility] [address] [id number] [place] [address]- 0848 Nov, [facility] [place] [facility] [address] [id number] [place] [address]- 3900 Nov, [facility] [place] [facility] [address] [id number] [place] [address] 3441 Oct, [facility] [place] [facility] [address] [id number] [place] [address] 7610 Oct, [facility] [place] [facility] [address] [id number] [place] [address] 8530 Oct, [facility] [place] [facility] [address] [id number] [place] [address]- 4850 Oct, [facility] [place] [facility] [address] [id number] [place] [address]- 6123 Oct, [facility] [place] [facility] [address] [id number] [place] [address]- 1003 Oct, [facility] [place] [facility] [address] [id number] [place] [address]- 8627 14 Oct, 2012 [facility] [place] [facility] [address] [id number] [place] [address]- 9239 13 Oct, 2012 [facility] [place] [facility] [address] [id number] [place] [address]- 4474 Oct, [facility] [place] [facility] [address] [id number] [place] [address]- 4243 Oct, [facility] [place] [facility] [address] [id number] [place] [address] 2519 September, [facility] [place] [facility] [address] [id number] [place] [address] 3511 September, [facility] [place] [facility] [address] [id number] [place] [address]- 0994 September, [facility] [place] [facility] [address] [id number] [place] [address]- 0875 Aug, [facility] [place] [facility] [address] [id number] [place] [address]- 3742 Aug, [facility] [place] [facility] [address] [id number] [place] [address]- 7433 Aug, [facility] [place] [facility] [address] [id number] [place] [address]- 4868 Aug, [facility] [place] [facility] [address] [id number] [place] [address]- 9655 Jul, [facility] [place] [facility] [address] [id number] [place] [address]- 3112 29 Jul, 2012 [facility] [place] [facility] [address] [id number] [place] [address]- 2428 Jul, [facility] [place] [facility] [address] [id number] [place] [address] Jul, [facility] [place] [facility] [address] [id number] [place] [address]- 6073 Jul, [facility] [address] [id number] [place] [address]- 7289 Jul, [facility] [address] [id number] [place] [address]- 9406 May, [facility] [address] [id number] [place] [address]- 5804 May, [facility] [address] [id number] [place] [address]- 4657 May, [facility] [address] [id number] [place] [address]- 5285 May, [facility] [address] [id number] [place] [address]- 3285 May, [facility] [address] [id number] [place] [address]- 4330 May, [facility] [address] [id number] [place] [address]- 4891 May, [facility] [address] [id number] [place] [address]- 0458 May, [facility] [address] [id number] [place] [address]- 5681 May, [facility] [address] [id number], [place] [address]- [address] 17 May, 2012 [facility] [place] [facility] [address] [id number], [place] [address] 3537 May, [facility] [place] [facility] [address] [id number] [place] [address]- 8974 Apr, [facility] [place] [facility] [address] [id number] [place] [address]- 6765 Apr, [facility] [place] [facility] [address] [id number] [place] [address]- 3130 Apr, [facility] [address] [id number] [place] [address]- 0079 Apr, [facility] [place] [facility] [address] [id number] [place] [address]- 5519 Apr, [facility] [place] [facility] [address] [id number] [place] [address]- 9106 Apr, [facility] [place] [facility] [address] [id number] [place] [address]- 4665 Mar, [facility] [place] [facility] [address] [id number] [place] [address]- 8763 Mar, [facility] [place] [facility] [address] [id number] [place] [address] 4973 Mar, [facility] [place] [facility] [address] [id number] [place] [address]- 5390 Mar, [facility] [place] [facility] [address] [id number] [place] [address]- 0973 Mar, [facility] [place] [facility] [address] [id number] [place] [address]- 4588 Mar, [facility] [place] [facility] [address] [id number] [place] [address]- 6092 Mar, [facility] [place] [facility] [address] [facility] [id number] [place] [address]- 1849 Mar, [facility] [place] [facility] [address] [id number] [place] [address]- 2125 Feb, [facility] [place] [facility] [address] [id number] [place] [address]- 3127 Feb, [facility] [place] [facility] [address] [id number] [place] [address]- 3261 16 Feb, 2012 [facility] [place] [facility] [address] [id number] [place] [address]- 3967 15 Feb, 2012 [facility] [place] [facility] [address] [id number] [place] [address]- 1091 15 Feb, 2012 [facility] [place] [facility] [address] [id number] [place] [address]- 7643 13 Feb, 2012 [facility] [place] [facility] [address] [id number] [place] [address]- 1821 Feb, [facility] [place] [facility] [address] [id number] [place] [address]- 8917 Feb, [facility] [place] [facility] [address] [id number] [place] [address]- 0892 Feb, [facility] [place] [facility] [address] [id number] [place] [address]- 7207 Feb, [facility] [place] [facility] [address] [id number] [place] [address]- 2859 Feb, [facility] [place] [facility] [address] [id number] [place] [address]- 2511 Feb, [facility] [place] [facility] [address] [id number] [place] [address]- 4449 Feb, [facility] [place] [facility] [address] [id number] [place] [address]- 0393 Feb, [facility] [place] [facility] [address] [id number] [place] [address]- 3817 Feb, [facility] [place] [facility] [address] [id number] [place] [address]- 1316 Feb, [facility] [place] [facility] [address] [id number], [place] [address]- 1789 Feb, [facility] [place] [facility] [address] [id number] [place] [address]- 3125 04 Feb, 2012 [facility] [place] [facility] [address] [id number] [place] [address]- 5633 19 Jan, 2012 [facility] [place] [facility] [address] [id number] [place] [address]- 6788 13 Jan, 2012 [facility] [place] [facility] [address] [id number], [place] [address]- 4507 Jan, [facility] [place] [facility] [address] [id number] [place] [address]- 2480 Jan, [facility] [place] [facility] [address] [id number] [place] [address]- 1438 Jan, [facility] [place] [facility] [address] [id number] [place] [address]- 3456 Dec, [facility] [place] [facility] [address] [id number] [place] [address]- 8218 Dec, [facility] [place] [facility] [address] [id number] [place] [address]- 9760 Dec, [facility] [place] [facility] [address] [id number] [place] [address]- 0790 Dec, [facility] [place] [facility] [address] [id number] [place] [address]- 6159 Dec, [facility] [place] [facility] [address] [id number] [place] [address]- 5762 Dec, [facility] [place] [facility] [address] [id number] [place] [address]- 3008 Nov, [facility] [place] [facility] [address] [id number] [place] [address]- 7831 Nov, [facility] [place] [facility] [address] [id number] [place] [address]- 1288 Nov, [facility] [place] [facility] [address] [id number] [place] [address]- 4687 Nov, [facility] [place] [facility] [address] [id number] [place] [address]- 9193 Nov, [facility] [place] [facility] [address] [id number] [place] [address]- 8781 Oct, [facility] [place] [facility] [address] [id number] [place] [address]- 6480 Oct, [facility] [place] [facility] [address] [id number] [place] [address]- 1385 Oct, [facility] [address] [id number] [place] [address]- 8263 September, [facility] [place] [facility] [address] [id number] [place] [address]- 0126 September, [facility] [address] [id number] [place] [address]- 4605 September, [facility] [address] [id number] [place] [address]- 8921 September, [facility] [address] [id number] [place] [address]- 0646 September, [facility] [address] [id number] [place] [address]- 5984 September, [facility] [address] [id number] [place] [address]- 0825 Aug, [facility] [address] [id number] [place] [address]- 8299 Aug, [facility] [address] [id number] [place] [address]- 0716 Aug, [facility] [address] [id number] [place] [address]- 1340 Jun, [facility] [address] [id number] [place] [address]- 6733 Jun, [facility] [address] [id number] [place] [address]- 4137 Jun, [facility] [place] [facility] [address] [id number] [place] [address]- 6728 Jun, [facility] [place] [facility] [address] [id number] [place] [address]- 5891 May, [facility] [place] [facility] [address] [id number] [place] [address]- 5489 May, [facility] [address] [id number] [place] [address]- 2237 May, [facility] [place] [facility] [address] [id number] [place] [address]- 6231 May, [facility] [place] [facility] [address] [facility] [id number] [place] [address]- 1927 May, [facility] [place] [facility] [address] [id number] [place] [address]- 1464 Apr, [facility] [place] [facility] [address] [id number] [place] [address]- 2463 Apr, [facility] [place] [facility] [address] [id number] [place] [address]- 4739 Apr, [facility] [place] [facility] [address] [id number] [place] [address]- 8032 Apr, [facility] [place] [facility] [address] [id number], [place] [address]- 7342 Apr, [facility] [place] [facility] [address] [id number] [place] [address]- 3221 Apr, [facility] [place] [facility] [address] [id number] [place] [address]- 2925 Apr, [facility] [place] [facility] [address] [id number], [place] [address]- 1110 Mar, [facility] [place] [facility] [address] [id number], [place] [address]- 3418 Mar, [facility] [place] [facility] [address] [id number] [place] [address]- 9697 15 Mar, 2011 [facility] [place] [facility] [address] [id number], [place] [address]- 9314 Feb, [facility] [place] [facility] [address] [id number], [place] [address]- 6194 Feb, [facility] [place] [facility] [address] [id number] [place] [address]- 3392 Feb, [facility] [address] [id number] [place] [address]- 0876 Feb, [facility] [place] [facility] [address] [id number] [place] [address] 2546 18 Feb, 2011 [facility] [address] [id number] [place] [address]- 1606 17 Feb, 2011 [facility] [place] [facility] [address] [id number] [place] [address] 2546 Jan, [facility] [address] [id number] [place] [address]- 1036 Jan, [facility] [place] [facility] [address] [id number] [place] [address]- 4005 September, [facility] [address] [id number] [place] [address]- 6741 Jun, [facility] [address] [id number] [place] [address]- 8396 Apr, [facility] [place] [facility] [address] [id number] [place] [address]- 1284 Apr, [facility] [address] [id number] [place] [address] 2545 Apr, [facility] [place] [facility] [address] [id number] [place] [address] 2546 Apr, [facility] [place] [facility] [address] [id number] [place] [address] 2547 Apr, [facility] [place] [facility] [address] [id number] [place] [address] 2546 30 Mar, 2010 [facility] [place] [facility] [address] [id number] [place] [address] 2546 Mar, [facility] [place] [facility] [address] [id number] [place] [address] 2543 Mar, [facility] [address] [id number], [place] [address] 2546 Mar, [facility] [address] [id number], [place] [address] 2546 27 Feb, 2010 [facility] [id number], [place] [address] 2546 15 Jan, 2010 [facility] [id number], [place] [address] 2546 Mar, [facility] [id number], [place] [address] 3131 15 Jan, 2009 [facility] [id number], [place] [address] 1717 Oct, [facility] [address] [id number], [place] [address] 5155 Apr, IMMUNIZATIONS No Known Immunizations SOCIAL HISTORY Never Assessed REASON FOR VISIT Requesting PLAN OF CARE VITAL SIGNS MEDICATIONS Unknown [...]
--- OUTSIDE RECORDS SUMMARY | 2018-03-22 22:05 | XMS REPORT ---
Author Author BRITANY BOSCH [facility] Address [address] [place] [address] Care Team Providers Care Machine Stemmer Name Role Phone DANITZA BRITANY Unavailable PROBLEMS Type Condition ICD9-CM Code EYK51-CD Code Onset Dates Condition Status SNOMED Code Problem Other chronic pain G89.29 Active 85581147 Problem Pain in left foot M79.672 Active 161850131604186 Problem Plantar wart of right foot B07.0 Active 55920078 Problem Obesity (BMI 30-39.9) E66.9 Active 423088664 Problem Heartburn R12 Active 43579077 Problem Rhinosinusitis J32.9 Active 38697428 Problem Other obesity due to excess calories E66.09 Active 256074596 Problem Pain in right foot M79.671 Active [id number] Problem Alternating constipation and diarrhea R19.8 Active 557972273 Problem Acute non-recurrent maxillary sinusitis J01.00 Active 17689398 Problem Essential hypertension I10 Active 10088302 Problem Bilateral low back pain without sciatica M54.5 Active 813597682 Problem Irritable bowel syndrome without diarrhea K58.9 Active 27817245 Problem Bilateral low back pain, with sciatica presence unspecified M54.5 Active 507217447 Problem High risk bisexual behavior Z72.53 Active 679340110 Problem Long-term use of high-risk medication Z79.899 Active 981219339 Problem Pre-diabetes R73.03 Active 770653069 Problem Impacted cerumen of right ear H61.21 Active 89191013 Problem Anxiety F41.9 Active 30604356 Problem Folliculitis L73.9 Active 48538818 ALLERGIES No Information ENCOUNTERS Encounter Location Date Diagnosis [facility] [address] [facility] [id number] [address] Aug, [facility] [id number] [place] [address] 81014- 0059 Jul, Bilateral low back pain without sciatica M54.5 [facility] [id number] [place] [address] 07644- 3961 Jun, [facility] [id number] [place] [address] 60950- 2901 Jun, [facility] [address] 08122- 2357 Jun, [facility] [id number] [place] [address] 13582- 6761 May, [facility] [address] 87783- 9861 May, Ingrown left greater toenail L60.0 [facility] [address] 09814- 5355 May, [facility] [id number] [place] [address] 39628 -6593 May, Influenza A J10.1 ; Fever R50.9 and Body aches R52 [facility] [id number] [place] [address] 11702- 2086 Apr, [facility] [id number] [place] [address] 36956- 2160 Apr, [facility] [id number] [place] [address] 32247- 6115 Apr, [facility] [id number] [place] [address] 49653- 9114 Apr, Abscess L02.91 and Obesity (BMI 30-39.9) E66.9 [facility] [id number] [place] [address] 32525- 4655 Apr, [facility] [id number] [place] [address] 77734- 0554 Apr, [facility] [id number] [place] [address] 35249- 5922 Mar, Acute non-recurrent maxillary sinusitis J01.00 [place] [address] 68899- 8497 Feb, Heartburn R12 [place] [address] 52031- 4570 Feb, Heartburn R12 ; Low back pain M54.5 ; Essential hypertension I10 ; Bilateral low back pain without sciatica M54.5 ; Anxiety F41.9 ; Pre-diabetes R73.03 ; Other obesity due to excess calories E66.09 ; Alternating constipation and diarrhea R19.8 ; Dyspepsia R10.13 ; Generalized abdominal pain R10.84 ; Rhinosinusitis J32.9 and Boil L02.92 [place] [address] 20219- 5364 Jan, Heartburn R12 [place] [address] 82349- 0031 Jan, [place] [address] 39235- 0292 Jan, [place] [address] 56347- 6613 Jan, Acute seasonal allergic rhinitis due to pollen J30.1 and Irritable bowel syndrome without diarrhea K58.9 [place] [address] 47250- 7455 Dec, Low back pain M54.5 and Acute cystitis with hematuria N30.01 [place] [address] 07101- 9386 Dec, Low back pain M54.5 and Acute cystitis with hematuria N30.01 [place] [id number] [place] [address] 05672- 2211 Dec, Heartburn R12 ; Essential hypertension I10 ; Acute non- recurrent maxillary sinusitis J01.00 ; Bilateral low back pain without sciatica M54.5 ; Anxiety F41.9 ; Pre-diabetes R73.03 ; Pain in right foot M79.671 ; Pain in left foot M79.672 ; Other obesity due to excess calories E66.09 and Acute cystitis with hematuria N30.01 [place] [address] 25553- 2402 Dec, Bilateral low back pain without sciatica M54.5 ; Acute non- recurrent maxillary sinusitis J01.00 and Pre-diabetes R73.03 [place] [address] 19752- 1851 Oct, [facility] [place] [address] 62708 -9166 Aug, [facility] [place] [address] 62583 -1584 Aug, Acute vaginitis N76.0 ; Urinary frequency R35.0 ; Screen for STD (sexually transmitted disease) Z11.3 and Abscess L02.91 [place] [address] 46053- 3734 Aug, Plantar wart of right foot B07.0 [place] [address] 68184- 8800 Jul, Plantar wart of right foot B07.0 [place] [address] 48798- 1290 Jun, [place] [address] 56556- 3950 Jun, Heartburn R12 ; Essential hypertension I10 ; Anxiety F41.9 ; Folliculitis L73.9 and Plantar wart of right foot B07.0 [place] [address] 08974- 1297 Jun, [facility] [place] [address] 73341 -3392 May, Low back pain M54.5 and Other chronic pain G89.29 [place] [address] 13436- 8670 May, [place] [address] 20133- 1708 May, [place] [address] 15859- 4982 May, Heartburn R12 ; Bilateral low back pain without sciatica M54.5 ; Essential hypertension I10 ; Long-term use of high-risk medication Z79.899 ; Anxiety F41.9 ; Impacted cerumen of right ear H61.21 ; Folliculitis L73.9 ; High risk bisexual behavior Z72.53 and General medical exam Z00.00 [place] [address] 12767- 6149 May, [place] [address] 31247- 7385 May, [place] [address] 08060- 5793 Mar, Acute nasopharyngitis J00 ; Acute intractable tension-type headache G44.201 and Cough R05 [place] [id number] [place] [address] 77590- 5977 Jan, [facility] [address] 72799 -1567 Jan, Abscess L02.91 [facility] [address] 47859 -4644 Jan, Urinary urgency R39.15 and Urinary tract infection without hematuria, site unspecified N39.0 [place] [address] 51498- 7865 Jan, [place] [address] 82807- 5696 Jan, [facility] [address] [address]- 2272 Dec, [facility] [id number] [place] [address] 67604- 7523 Dec, Dermatofibroma D23.9 [facility] [id number] [place] [address] 10960- 2623 September, [facility] [id number] [place] [address] 82317- 1856 Aug, [facility] [id number] [place] [address] 30787- 8567 Aug, Pain in left knee M25.562 ; Heartburn R12 ; Bilateral low back pain without sciatica M54.5 ; Essential hypertension I10 ; Ingrown left big toenail L60.0 ; Chronic pain G89.29 ; Irritable bowel syndrome with constipation K58.9 and Skin infection L08.9 [facility] [address] [place] [address] 34067- 4818 Aug, [facility] [id number] [place] [address] 16845- 9682 Jul, [facility] [address] [place] [address] 46093- 1068 Jun, [facility] [address] [place] [address] 64336- 9659 Jun, [facility] [address] [address]- 9701 Jun, [facility] [id number] [place] [address] 92061- 6006 Jun, [facility] [address] [address]- 4987 Jun, Upper respiratory infection J06.9 ; Bilateral low back pain without sciatica M54.5 and Headache R51 [facility] [id number] [place] [address] 63034- 4671 May, [facility] [id number] [place] [address] 30944- 7730 Apr, Bilateral low back pain without sciatica M54.5 ; Upper respiratory infection J06.9 and Yeast dermatitis B37.2 [place] [address] 31853- 6054 Apr, [facility] [id number] [place] [address] 35322- 3384 Apr, [facility] [address] 28942- 6874 Feb, [facility] [id number] [place] [address] 67225- 9972 Feb, [facility] [id number] [place] [address] 42947- 3229 Feb, [facility] [id number] [place] [address] 39739- 3791 Feb, Essential hypertension I10 ; Heartburn R12 ; Irritable bowel syndrome without diarrhea K58.9 ; Bilateral low back pain, with sciatica presence unspecified M54.5 and Upper respiratory infection J06.9 [place] [id number] [place] [address] 93349- 0903 Feb, [place] [id number] [place] [address] 89017- 5422 Feb, Generalized anxiety disorder F41.1 and Grief F43.20 [place] [id number] [place] [address] 64743- 4697 Jan, [place] [id number] [place] [address] 99899- 0670 Jan, Back pain 724.5 ; Upper respiratory infection 465.9 ; HTN ( hypertension) 401.9 and Dyspepsia 536.8 [place] [id number] [place] [address] 83752- 8094 Dec, [facility] [id number] [place] [address] 10648- 8184 Nov, Back pain 724.5 ; Abdominal pain, bilateral lower quadrant 789.03 ; GERD (gastroesophageal reflux disease) 530.81 ; Upper respiratory infection 465.9 ; Dysuria 788.1 and HTN (hypertension) 401.9 [place] [id number] [place] [address] 63411- 9481 Nov, [facility] [id number] [place] [address] 00223- 3662 Nov, [place] [id number] [place] [address] 80985- 3254 Nov, [place] [id number] [place] [address] 49450- 9780 Nov, Cough 786.2 [place] [id number] [place] [address] 38299- 5651 Nov, Cough 786.2 [place] [id number] [place] [address] 89607- 9218 Oct, Unspecified episodic mood disorder 296.90 and Anxiety disorder, unspecified 300.00 [place] [id number] [place] [address] 22976- 9471 Oct, Abdominal pain, left upper quadrant 789.02 ; Essential hypertension, benign 401.1 ; Irritable bowel syndrome 564.1 ; Abscess 682.9 ; Heartburn 787.1 ; Acute sinusitis, unspecified 461.9 ; Muscle spasm of back 724.8 ; Cough 786.2 and Skin tag 701.9 [place] [address] [place] [address] 72025- 3378 September, [place] [id number] [place] [address] 60951- 7072 September, [place] [id number] [place] [address]- 2456 September, [facility] [place] [facility] [address] [id number] [place] [address]- 8065 14 Aug, 2014 [facility] [place] [facility] [address] [id number] [place] [address]- 2406 Aug, [facility] [place] [facility] [address] [id number] [place] [address]- 6521 30 Jul, 2014 [facility] [place] [facility] [address] [id number] [place] [address]- 8492 30 Jul, 2014 [facility] [place] [facility] [address] [id number] [place] [address]- 6820 Jul, [facility] [place] [facility] [address] [id number] [place] [address]- 2057 Jul, [facility] [place] [facility] [address] [id number] [place] [address]- 0837 Jul, [facility] [place] [facility] [address] [id number] [place] [address]- 1321 Jul, [facility] [place] [facility] [address] [id number] [place] [address]- 8485 Jul, [facility] [place] [facility] [address] [id number] [place] [address]- 5161 Jul, [facility] [place] [facility] [address] [id number] [place] [address]- 5681 24 Jul, 2014 [facility] [place] [facility] [address] [id number] [place] [address]- 7981 Jul, [facility] [place] [facility] [address] [id number] [place] [address]- 9097 Jul, [facility] [place] [facility] [address] [id number] [place] [address]- 1736 Jul, [facility] [place] [facility] [address] [id number] [place] [address]- 3957 Jul, [facility] [place] [facility] [address] [id number] [place] [address]- 7494 Jul, 2014 [facility] [place] [facility] [address] [id number] [place] [address]- 4009 Jul, 2014 [facility] [place] [facility] [address] [id number] [place] [address]- 8421 Jul, 2014 [facility] [place] [facility] [address] [id number] [place] [address]- 7921 Jul, 2014 [facility] [place] [facility] [address] [id number] [place] [address]- 0230 Jun, 2014 [facility] [place] [facility] [address] [id number] [place] [address]- 5337 Jun, 2014 [facility] [place] [facility] [address] [id number] [place] [address]- 2315 Jun, 2014 [facility] [place] [facility] [address] [id number] [place] [address]- 3800 Jun, 2014 [facility] [place] [facility] [address] [id number] [place] [address]- 3112 Jun, 2014 [facility] [place] [facility] [address] [id number] [place] [address]- 1115 Jun, 2014 [facility] [place] [facility] [address] [id number] [place] [address]- 7931 Jun, 2014 [facility] [place] [facility] [address] [id number] [place] [address]- 3033 Jun, 2014 [facility] [place] [facility] [address] [id number] [place] [address]- 9595 Apr, [facility] [place] [facility] [address] [id number] [place] [address]- 9307 Apr, [facility] [place] [facility] [address] [id number] [place] [address]- 5040 Apr, [facility] [place] [facility] [address] [id number] [place] [address]- 3170 23 Apr, 2014 [facility] [place] [facility] [address] [id number] [place] [address]- 5682 Apr, [facility] [place] [facility] [address] [id number] [place] [address]- 0794 Apr, [facility] [place] [facility] [address] [id number] [place] [address]- 4418 Apr, [facility] [place] [facility] [address] [id number] [place] [address]- 0979 15 Apr, 2014 [facility] [place] [facility] [address] [id number] [place] [address]- 5205 Apr, [facility] [place] [facility] [address] [id number] [place] [address]- 9503 Apr, [facility] [place] [facility] [address] [id number] [place] [address]- 1607 Apr, [facility] [place] [facility] [address] [id number] [place] [address]- 0797 Apr, [facility] [place] [facility] [address] [id number] [place] [address]- 3680 Apr, [facility] [place] [facility] [address] [id number] [place] [address]- 1777 Apr, [facility] [place] [facility] [address] [id number] [place] [address]- 5539 Apr, [facility] [place] [facility] [address] [id number] [place] [address]- 0562 Feb, [facility] [place] [facility] [address] [id number] [place] [address]- 6122 Feb, [facility] [place] [facility] [address] [id number] [place] [address]- 4999 Feb, [facility] [place] [facility] [address] [id number] [place] [address]- 7963 Feb, [facility] [place] [facility] [address] [id number] [place] [address]- 0259 Feb, [facility] [place] [facility] [address] [id number] [place] [address]- 9936 Feb, [facility] [place] [facility] [address] [id number] [place] [address]- 9254 Jan, [facility] [place] [facility] [address] [id number] [place] [address]- 0225 Jan, 2013 [facility] [place] [facility] [address] [id number] [place] [address]- 4999 Jan, [facility] [place] [facility] [address] [id number] [place] [address]- 4523 Jan, [facility] [place] [facility] [address] [id number] [place] [address]- 0023 Jan, [facility] [place] [facility] [address] [id number] [place] [address]- 9440 Jan, [facility] [place] [facility] [address] [id number] [place] [address]- 0900 Dec, [facility] [place] [facility] [address] [id number] [place] [address]- 7339 Dec, [facility] [place] [facility] [address] [id number] [place] [address]- 4597 Dec, [facility] [place] [facility] [address] [id number] [place] [address]- 4576 Dec, [facility] [place] [facility] [address] [id number] [place] [address]- 6436 Nov, [facility] [place] [facility] [address] [id number] [place] [address]- 7438 Nov, [facility] [place] [facility] [address] [id number] [place] [address]- 6488 Nov, [facility] [place] [facility] [address] [id number] [place] [address]- 3832 Nov, [facility] [place] [facility] [address] [id number] [place] [address]- 8450 Nov, [facility] [place] [facility] [address] [id number] [place] [address]- 2201 Nov, [facility] [place] [facility] [address] [id number] [place] [address]- 5675 Nov, [facility] [place] [facility] [address] [id number] [place] [address]- 2888 Nov, [facility] [place] [facility] [address] [id number] [place] [address]- 4272 Oct, [facility] [place] [facility] [address] [id number] [place] [address]- 8724 Oct, [facility] [place] [facility] [address] [id number] [place] [address]- 5002 Oct, [facility] [place] [facility] [address] [id number] [place] [address]- 1824 Oct, [facility] [place] [facility] [address] [id number] [place] [address]- 8702 Oct, [facility] [place] [facility] [address] [id number] [place] [address]- 0727 Oct, [facility] [place] [facility] [address] [id number] [place] [address]- 8385 Oct, [facility] [place] [facility] [address] [id number] [place] [address]- 1776 Oct, [facility] [place] [facility] [address] [id number] [place] [address]- 9494 Oct, [facility] [place] [facility] [address] [id number] [place] [address]- 9118 Oct, [facility] [place] [facility] [address] [id number] [place] [address]- 1258 Oct, [facility] [place] [facility] [address] [id number] [place] [address]- 4568 23 Oct, 2013 [facility] [place] [facility] [address] [id number] [place] [address]- 9943 18 Oct, 2013 [facility] [place] [facility] [address] [id number] [place] [address]- 1148 18 Oct, 2013 [facility] [place] [facility] [address] [id number] [place] [address]- 2090 17 Oct, 2013 [facility] [place] [facility] [address] [id number] [place] [address]- 6645 17 Oct, 2013 [facility] [place] [facility] [address] [id number] [place] [address]- 0020 16 Oct, 2013 [facility] [place] [facility] [address] [id number] [place] [address]- 1435 16 Oct, 2013 [facility] [place] [facility] [address] [id number] [place] [address]- 5608 Oct, [facility] [place] [facility] [address] [id number] [place] [address]- 5682 Oct, [facility] [place] [facility] [address] [id number] [place] [address]- 7271 Oct, [facility] [place] [facility] [address] [id number] [place] [address]- 5917 Oct, [facility] [place] [facility] [address] [id number] [place] [address] Oct, [facility] [place] [facility] [address] [id number] [place] [address] Oct, [facility] [place] [facility] [address] [id number] [place] [address] Oct, [facility] [place] [facility] [address] [id number] [place] [address] 06 Oct, 2013 [facility] [place] [facility] [address] [id number] [place] [address] Oct, [facility] [place] [facility] [address] [id number] [place] [address] Oct, [facility] [place] [facility] [address] [id number] [place] [address] Oct, [facility] [place] [facility] [address] [id number] [place] [address] Oct, [facility] [place] [facility] [address] [id number] [place] [address] September, [facility] [place] [facility] [address] [id number] [place] [address] September, [facility] [place] [facility] [address] [id number] [place] [address] September, [facility] [place] [facility] [address] [id number] [place] [address] September, [facility] [place] [facility] [address] [id number] [place] [address] September, [facility] [place] [facility] [address] [id number] [place] [address] September, [facility] [place] [facility] [address] [id number] [place] [address] September, [facility] [place] [facility] [address] [id number] [place] [address] September, [facility] [place] [facility] [address] [id number] [place] [address] September, [facility] [place] [facility] [address] [id number] [place] [address] September, [facility] [place] [facility] [address] [id number] [place] [address] September, [facility] [place] [facility] [address] [id number] [place] [address] September, [facility] [place] [facility] [address] [id number] [place] [address] September, [facility] [address] [id number] [place] [address] September, [facility] [place] [facility] [address] [id number] [place] [address] September, [facility] [place] [facility] [address] [id number] [place] [address] September, [facility] [place] [facility] [address] [id number] [place] [address] September, [facility] [place] [facility] [address] [id number] [place] [address] September, [facility] [place] [facility] [address] [id number] [place] [address] Aug, [facility] [place] [facility] [address] [id number] [place] [address] Aug, [facility] [address] [id number] [place] [address] Aug, [facility] [place] [facility] [address] [id number] [place] [address] Aug, [facility] [place] [facility] [address] [id number] [place] [address] Aug, [facility] [place] [facility] [address] [id number] [place] [address] Aug, [facility] [place] [facility] [address] [id number] [place] [address] Jul, [facility] [place] [facility] [address] [id number] [place] [address] Jul, [facility] [place] [facility] [address] [id number] [place] [address] Jul, [facility] [place] [facility] [address] [id number] [place] [address] Jul, [facility] [place] [facility] [address] [id number] [place] [address] Jun, [facility] [place] [facility] [address] [id number] [place] [address] Jun, [facility] [place] [facility] [address] [id number] [place] [address] Jun, [facility] [place] [facility] [address] [id number] [place] [address]- [address] Jun, [facility] [place] [facility] [address] [id number] [place] [address] Mar, [facility] [place] [facility] [address] [id number] [place] [address] Mar, [facility] [place] [facility] [address] [id number] [place] [address]- [address] Mar, [facility] [place] [facility] [address] [id number] [place] [address]- [address]69 Mar, [facility] [place] [facility] [address] [id number] [place] [address] Feb, [facility] [place] [facility] [address] [id number] [place] [address] 8654 Feb, [facility] [place] [facility] [address] [id number] [place] [address] 8929 Feb, [facility] [place] [facility] [address] [id number] [place] [address] 2547 Jan, [facility] [place] [facility] [address] [id number] [place] [address] 254 20 Jan, 2013 [facility] [place] [facility] [address] [id number] [place] [address]- [address]27 12 Jan, 2013 [facility] [place] [facility] [address] [id number] [place] [address]- 2549 05 Jan, 2013 [facility] [place] [facility] [address] [id number] [place] [address] 5834 Dec, [facility] [place] [facility] [address] [id number] [place] [address] 8191 Dec, [facility] [place] [facility] [address] [id number] [place] [address] 8568 Dec, [facility] [place] [facility] [address] [id number] [place] [address] 2384 Dec, [facility] [place] [facility] [address] [id number] [place] [address] 4103 Nov, [facility] [place] [facility] [address] [id number] [place] [address] 3176 Nov, [facility] [place] [facility] [address] [id number] [place] [address] 6545 Nov, [facility] [place] [facility] [address] [id number] [place] [address] 3944 Nov, [facility] [place] [facility] [address] [id number] [place] [address] 0463 Nov, [facility] [place] [facility] [address] [id number] [place] [address] 6536 Nov, [facility] [place] [facility] [address] [id number] [place] [address] 2244 Oct, [facility] [place] [facility] [address] [id number] [place] [address] 4995 Oct, [facility] [place] [facility] [address] [id number] [place] [address] 4187 Oct, [facility] [place] [facility] [address] [id number] [place] [address]- 2871 Oct, [facility] [place] [facility] [address] [id number] [place] [address]- 8933 Oct, [facility] [place] [facility] [address] [id number] [place] [address]- 4602 Oct, [facility] [place] [facility] [address] [id number] [place] [address]- 4595 14 Oct, 2012 [facility] [place] [facility] [address] [id number] [place] [address]- 3860 13 Oct, 2012 [facility] [place] [facility] [address] [id number] [place] [address]- 5577 Oct, [facility] [place] [facility] [address] [id number] [place] [address]- 9812 Oct, [facility] [place] [facility] [address] [id number] [place] [address] 7851 September, [facility] [place] [facility] [address] [id number] [place] [address] 8251 September, [facility] [place] [facility] [address] [id number] [place] [address] 0193 September, [facility] [place] [facility] [address] [id number] [place] [address]- 1511 Aug, [facility] [place] [facility] [address] [id number] [place] [address]- 7139 Aug, [facility] [place] [facility] [address] [id number] [place] [address]- 1125 Aug, [facility] [place] [facility] [address] [id number] [place] [address] 0901 Aug, [facility] [place] [facility] [address] [id number] [place] [address]- 6833 Jul, [facility] [place] [facility] [address] [id number] [place] [address]- 4328 29 Jul, 2012 [facility] [place] [facility] [address] [id number] [place] [address] 3828 Jul, [facility] [place] [facility] [address] [id number] [place] [address] Jul, [facility] [place] [facility] [address] [id number] [place] [address]- 2100 Jul, [facility] [address] [id number] [place] [address]- 8338 Jul, [facility] [address] [id number] [place] [address]- 8936 May, [facility] [address] [id number] [place] [address]- 2095 May, [facility] [address] [id number] [place] [address]- 5051 May, [facility] [address] [id number] [place] [address]- 7469 May, [facility] [address] [id number] [place] [address]- 6635 May, [facility] [address] [id number] [place] [address]- 1033 May, [facility] [address] [id number] [place] [address]- 7541 May, [facility] [address] [id number] [place] [address]- 6747 May, [facility] [address] [id number] [place] [address]- 9524 May, [facility] [address] [id number], [place] [address] 6[address] 17 May, 2012 [facility] [place] [facility] [address] [id number], [place] [address]- 4417 May, [facility] [place] [facility] [address] [id number] [place] [address]- 5070 Apr, [facility] [place] [facility] [address] [id number] [place] [address]- 4055 Apr, [facility] [place] [facility] [address] [id number] [place] [address]- 4200 Apr, [facility] [address] [id number] [place] [address]- 9266 Apr, [facility] [place] [facility] [address] [id number] [place] [address]- 9314 Apr, [facility] [place] [facility] [address] [id number] [place] [address]- 1866 Apr, [facility] [place] [facility] [address] [id number] [place] [address]- 0464 Mar, [facility] [place] [facility] [address] [id number] [place] [address]- 5674 Mar, [facility] [place] [facility] [address] [id number] [place] [address]- 3837 Mar, [facility] [place] [facility] [address] [id number] [place] [address]- 0778 Mar, [facility] [place] [facility] [address] [id number] [place] [address]- 2901 Mar, [facility] [place] [facility] [address] [id number] [place] [address]- 1328 Mar, [facility] [place] [facility] [address] [id number] [place] [address]- 3788 Mar, [facility] [place] [facility] [address] [facility] [id number] [place] [address]- 8235 Mar, [facility] [place] [facility] [address] [id number] [place] [address]- 8851 Feb, [facility] [place] [facility] [address] [id number] [place] [address]- 8785 Feb, [facility] [place] [facility] [address] [id number] [place] [address]- 1359 16 Feb, 2012 [facility] [place] [facility] [address] [id number] [place] [address]- 6946 15 Feb, 2012 [facility] [place] [facility] [address] [id number] [place] [address]- 5776 15 Feb, 2012 [facility] [place] [facility] [address] [id number] [place] [address]- 6263 13 Feb, 2012 [facility] [place] [facility] [address] [id number] [place] [address]- 5114 Feb, [facility] [place] [facility] [address] [id number] [place] [address]- 4308 Feb, [facility] [place] [facility] [address] [id number] [place] [address]- 8716 Feb, [facility] [place] [facility] [address] [id number] [place] [address]- 7712 Feb, [facility] [place] [facility] [address] [id number] [place] [address] 1951 Feb, [facility] [place] [facility] [address] [id number] [place] [address]- 2768 Feb, [facility] [place] [facility] [address] [id number] [place] [address]- 9106 Feb, [facility] [place] [facility] [address] [id number] [place] [address]- 7602 Feb, [facility] [place] [facility] [address] [id number] [place] [address]- 9428 Feb, [facility] [place] [facility] [address] [id number] [place] [address]- 8627 Feb, [facility] [place] [facility] [address] [id number], [place] [address]- 2713 Feb, [facility] [place] [facility] [address] [id number] [place] [address]- 4365 04 Feb, 2012 [facility] [place] [facility] [address] [id number] [place] [address]- 9271 19 Jan, 2012 [facility] [place] [facility] [address] [id number] [place] [address]- 4993 13 Jan, 2012 [facility] [place] [facility] [address] [id number], [place] [address]- 6304 Jan, [facility] [place] [facility] [address] [id number] [place] [address]- 3704 Jan, [facility] [place] [facility] [address] [id number] [place] [address]- 0115 Jan, [facility] [place] [facility] [address] [id number] [place] [address]- 4901 Dec, [facility] [place] [facility] [address] [id number] [place] [address]- 6128 Dec, [facility] [place] [facility] [address] [id number] [place] [address]- 0844 Dec, [facility] [place] [facility] [address] [id number] [place] [address]- 0393 Dec, [facility] [place] [facility] [address] [id number] [place] [address]- 9736 Dec, [facility] [place] [facility] [address] [id number] [place] [address]- 9722 Dec, [facility] [place] [facility] [address] [id number] [place] [address]- 6488 Nov, [facility] [place] [facility] [address] [id number] [place] [address]- 6601 Nov, [facility] [place] [facility] [address] [id number] [place] [address]- 4641 Nov, [facility] [place] [facility] [address] [id number] [place] [address]- 3395 Nov, [facility] [place] [facility] [address] [id number] [place] [address]- 3916 Nov, [facility] [place] [facility] [address] [id number] [place] [address]- 8823 Oct, [facility] [place] [facility] [address] [id number] [place] [address]- 9276 Oct, [facility] [place] [facility] [address] [id number] [place] [address]- 2154 Oct, [facility] [address] [id number] [place] [address]- 3153 September, [facility] [place] [facility] [address] [id number] [place] [address]- 9306 September, [facility] [address] [id number] [place] [address]- 6711 September, [facility] [address] [id number] [place] [address]- 7295 September, [facility] [address] [id number] [place] [address]- 3278 September, [facility] [address] [id number] [place] [address]- 5935 September, [facility] [address] [id number] [place] [address]- 3025 Aug, [facility] [address] [id number] [place] [address]- 9912 Aug, [facility] [address] [id number] [place] [address]- 0401 Aug, [facility] [address] [id number] [place] [address]- 2208 Jun, [facility] [address] [id number] [place] [address]- 6259 Jun, [facility] [address] [id number] [place] [address]- 9861 Jun, [facility] [place] [facility] [address] [id number] [place] [address]- 7513 Jun, [facility] [place] [facility] [address] [id number] [place] [address]- 5892 May, [facility] [place] [facility] [address] [id number] [place] [address]- 7759 May, [facility] [address] [id number] [place] [address]- 1588 May, [facility] [place] [facility] [address] [id number] [place] [address]- 2891 May, [facility] [place] [facility] [address] [facility] [id number] [place] [address]- 3950 May, [facility] [place] [facility] [address] [id number] [place] [address]- 8435 Apr, [facility] [place] [facility] [address] [id number] [place] [address]- 2760 Apr, [facility] [place] [facility] [address] [id number] [place] [address]- 6914 Apr, [facility] [place] [facility] [address] [id number] [place] [address]- 8416 Apr, [facility] [place] [facility] [address] [id number], [place] [address]- 2480 Apr, [facility] [place] [facility] [address] [id number] [place] [address]- 9627 Apr, [facility] [place] [facility] [address] [id number] [place] [address]- 8138 Apr, [facility] [place] [facility] [address] [id number], [place] [address]- 8397 Mar, [facility] [place] [facility] [address] [id number], [place] [address]- 5724 Mar, [facility] [place] [facility] [address] [id number] [place] [address]- 1536 15 Mar, 2011 [facility] [place] [facility] [address] [id number], [place] [address]- 9322 Feb, [facility] [place] [facility] [address] [id number], [place] [address]- 6467 Feb, [facility] [place] [facility] [address] [id number] [place] [address]- 0157 Feb, [facility] [address] [id number] [place] [address]- 1016 Feb, [facility] [place] [facility] [address] [id number] [place] [address] 2546 18 Feb, 2011 [facility] [address] [id number] [place] [address]- 2026 17 Feb, 2011 [facility] [place] [facility] [address] [id number] [place] [address] 2546 Jan, [facility] [address] [id number] [place] [address]- 3596 Jan, [facility] [place] [facility] [address] [id number] [place] [address]- 5477 September, [facility] [address] [id number] [place] [address]- 7886 Jun, [facility] [address] [id number] [place] [address]- 7694 Apr, [facility] [place] [facility] [address] [id number] [place] [address]- 9717 Apr, [facility] [address] [id number] [place] [address] 2545 Apr, [facility] [place] [facility] [address] [id number] [place] [address] 2546 Apr, [facility] [place] [facility] [address] [id number] [place] [address] 254 Apr, [facility] [place] [facility] [address] [id number] [place] [address] 2546 30 Mar, 2010 [facility] [place] [facility] [address] [id number] [place] [address] 2546 Mar, [facility] [place] [facility] [address] [id number] [place] [address] 2545 Mar, [facility] [address] [id number], [place] [address]- 5846 05 Mar, 2010 [facility] [address] [id number], [place] [address] 2546 27 Feb, 2010 [facility] [id number], [place] [address] 2546 15 Jan, 2010 [facility] [address], [place] [address]- 2546 Mar, [facility] [id number], [place] [address]- 1894 Jan, [facility] [address], [place] [address]- 0859 Oct, [facility] [address], [place] [address]- 2950 Apr, IMMUNIZATIONS No Known Immunizations SOCIAL HISTORY Never Assessed REASON FOR VISIT Medication refill request PLAN OF CARE VITAL SIGNS MEDICATIONS Medication Instructions Dosage Frequency Start Date End Date Duration Status Dicyclomine HCl 10 mg TAKE ONE CAPSULE BY MOUTH THREE TIMES DAILY 30 Active RESULTS No Results PROCEDURES [...]
--- OUTSIDE RECORDS SUMMARY | 2018-03-22 22:05 | XMS REPORT ---
Author Author BRITANY BOSCH [facility] Address [address] [place] [address] Care Team Providers Care Tobacco Blender Name Role Phone BRITANY BOSCH Unavailable PROBLEMS Type Condition ICD9-CM Code [id number] Code Onset Dates Condition Status SNOMED Code Problem Folliculitis L73.9 Active 18989804 Problem High risk bisexual behavior Z72.53 Active 521758185 Problem Anxiety F41.9 Active 08685587 Problem Acute non-recurrent maxillary sinusitis J01.00 Active 23356140 Problem Other obesity due to excess calories E66.09 Active 258473056 Problem Plantar wart of right foot B07.0 Active 72970502 Problem Other chronic pain G89.29 Active 16097489 Problem Pain in right foot M79.671 Active 41271535208296568 Problem Pain in left foot M79.672 Active 285964559759525 Problem Heartburn R12 Active 59373287 Problem Irritable bowel syndrome without diarrhea K58.9 Active 69127396 Problem Bilateral low back pain without sciatica M54.5 Active 672855644 Problem Pre-diabetes R73.03 Active 262231404 Problem Essential hypertension I10 Active 92450891 Problem Long-term use of high-risk medication Z79.899 Active 845954536 Problem Bilateral low back pain, with sciatica presence unspecified M54.5 Active 412998034 Problem Impacted cerumen of right ear H61.21 Active 50305855 ALLERGIES Unknown Allergies SOCIAL HISTORY No smoking Hx information available PLAN OF CARE VITAL SIGNS Height 66 in 2016-06-05 Blood pressure systolic 122 mmHg 2016-06-05 Blood pressure diastolic 70 mmHg 2016-06-05 MEDICATIONS Unknown Medications RESULTS No Results PROCEDURES No Known procedures IMMUNIZATIONS No Known Immunizations
--- OUTSIDE RECORDS SUMMARY | 2018-03-22 22:06 | XMS REPORT ---
Author Author BRITANY BOSCH [facility] Address [address] [place] [address] Care Team Providers Care Lead Software Development Engineer Name Role Phone BRITANY BOSCH Unavailable PROBLEMS Type Condition ICD9-CM Code [id number] Code Onset Dates Condition Status SNOMED Code Problem Folliculitis L73.9 Active 49709069 Problem High risk bisexual behavior Z72.53 Active 192045377 Problem Anxiety F41.9 Active 17080711 Problem Acute non-recurrent maxillary sinusitis J01.00 Active 34144012 Problem Other obesity due to excess calories E66.09 Active 728747259 Problem Plantar wart of right foot B07.0 Active 62375958 Problem Other chronic pain G89.29 Active 35817404 Problem Pain in right foot M79.671 Active 51041572337851662 Problem Pain in left foot M79.672 Active 704199017784720 Problem Heartburn R12 Active 21825801 Problem Irritable bowel syndrome without diarrhea K58.9 Active 62046523 Problem Bilateral low back pain without sciatica M54.5 Active 624073199 Problem Pre-diabetes R73.03 Active 844666119 Problem Essential hypertension I10 Active 88948185 Problem Long-term use of high-risk medication Z79.899 Active 245135019 Problem Bilateral low back pain, with sciatica presence unspecified M54.5 Active 339522514 Problem Impacted cerumen of right ear H61.21 Active 23476346 ALLERGIES Substance Reaction Event Type Date Status Penicillin V Potassium anaphylaxis Drug Allergy May, Active surgical tape "tears skin off" Non Drug Allergy May, Active SOCIAL HISTORY No smoking Hx information available PLAN OF CARE Activity Details Follow Up 4 Weeks Reason:anxiety VITAL SIGNS Height 66 in 2016-06-01 Weight 250.9 lbs 2016-06-01 Temperature 97.4 degrees Fahrenheit 2016-06-01 Heart Rate 80 bpm 2016-06-01 Respiratory Rate 22 2016-06-01 BMI 40.49 kg/m2 2016-06-01 Blood pressure systolic 126 mmHg 2016-06-01 Blood pressure diastolic 84 mmHg 2016-06-01 MEDICATIONS Medication Instructions Dosage Frequency Start Date End Date Duration Status HydrOXYzine HCl 25 MG Orally bid prn 1/2-1 tablet as needed May, 30 day(s) Active Bactrim DS 800-160 MG Orally Twice a day 1 tablet 12h May,May 10 day(s) Active Lisinopril-Hydrochlorothiazide 10-12.5 MG Orally Once a day 1 tablet 24h 30 Active Omeprazole 20 MG Orally Once a day 1 capsule 24h 30 days Active Ibuprofen 800 MG Orally Three times a day 1 tablet 8h 30 Active Flexeril 10 mg Orally 2 times a day s needed 1 tablet Active RESULTS No Results PROCEDURES Procedure Date Ordered Related Diagnosis Body Site COMPREHEN METABOLIC PANEL Jun 01, 2016 No Charge Jun 01, 2016 ASSAY THYROID STIM HORMONE Jun 01, 2016 GLYCATED HEMOGLOBIN TEST Jun 01, 2016 VENIPUNCT, ROUTINE* Jun 01, 2016 Office Visit, Est Pt., Level 5 Jun 01, 2016 IMMUNIZATIONS No Known Immunizations
--- OUTSIDE RECORDS SUMMARY | 2018-03-22 22:06 | XMS REPORT ---
Author Author BRITANY BOSCH [facility] Address [address] [place] [address] Care Team Providers Care Clinical Project Coordinator Name Role Phone BRITANY BOSCH Unavailable PROBLEMS Type Condition ICD9-CM Code [id number] Code Onset Dates Condition Status SNOMED Code Problem Folliculitis L73.9 Active 85748978 Problem High risk bisexual behavior Z72.53 Active 825689671 Problem Anxiety F41.9 Active 65737421 Problem Acute non-recurrent maxillary sinusitis J01.00 Active 01529826 Problem Other obesity due to excess calories E66.09 Active 955921330 Problem Plantar wart of right foot B07.0 Active 66512028 Problem Other chronic pain G89.29 Active 54256808 Problem Pain in right foot M79.671 Active [id number] Problem Pain in left foot M79.672 Active 394733717494754 Problem Heartburn R12 Active 21901408 Problem Irritable bowel syndrome without diarrhea K58.9 Active 85367191 Problem Bilateral low back pain without sciatica M54.5 Active 396344558 Problem Pre-diabetes R73.03 Active 720424789 Problem Essential hypertension I10 Active 17547560 Problem Long-term use of high-risk medication Z79.899 Active 529541513 Problem Bilateral low back pain, with sciatica presence unspecified M54.5 Active 686183999 Problem Impacted cerumen of right ear H61.21 Active 53885829 ALLERGIES Unknown Allergies SOCIAL HISTORY No smoking Hx information available PLAN OF CARE VITAL SIGNS MEDICATIONS Medication Instructions Dosage Frequency Start Date End Date Duration Status MetFORMIN HCl ER 500 MG Orally Once a day 1 tablet with evening meal 24h May, 30 day(s) Active RESULTS No Results PROCEDURES No Known procedures IMMUNIZATIONS No Known Immunizations
--- OUTSIDE RECORDS SUMMARY | 2018-03-22 22:07 | XMS REPORT ---
Author Author BRITANY BOSCH [facility] Address [address] [place] [address] Care Team Providers Care Obstetrics Gyn Name Role Phone RENÉNas BRITANY Unavailable PROBLEMS Type Condition ICD9-CM Code VRG93-WO Code Onset Dates Condition Status SNOMED Code Problem Other chronic pain G89.29 Active 76348089 Problem Pain in left foot M79.672 Active 670036934021847 Problem Plantar wart of right foot B07.0 Active 93303550 Problem Obesity (BMI 30-39.9) E66.9 Active 941971363 Problem Heartburn R12 Active 61541725 Problem Rhinosinusitis J32.9 Active 20874992 Problem Other obesity due to excess calories E66.09 Active 926720139 Problem Pain in right foot M79.671 Active 07164902198723901 Problem Alternating constipation and diarrhea R19.8 Active 147224427 Problem Acute non-recurrent maxillary sinusitis J01.00 Active 30999536 Problem Essential hypertension I10 Active 40203184 Problem Bilateral low back pain without sciatica M54.5 Active 189260476 Problem Irritable bowel syndrome without diarrhea K58.9 Active 12436305 Problem Bilateral low back pain, with sciatica presence unspecified M54.5 Active 377098977 Problem High risk bisexual behavior Z72.53 Active 559892784 Problem Long-term use of high-risk medication Z79.899 Active 494290501 Problem Pre-diabetes R73.03 Active 316660811 Problem Impacted cerumen of right ear H61.21 Active 03408910 Problem Anxiety F41.9 Active 59017147 Problem Folliculitis L73.9 Active 60265943 ALLERGIES No Information ENCOUNTERS Encounter Location Date Diagnosis [facility] [address] [id number] [address] September, Pre-diabetes R73.03 [facility] [id number] [place] [address] 48462- 3086 Aug, [facility] [id number] [place] [address] 80626- 8217 Jul, Bilateral low back pain without sciatica M54.5 [facility] [id number] [place] [address] 01889- 1348 Jun, [facility] [address] [address]- [address]90 Jun, [facility] [id number] [place] [address] 08167- 5461 Jun, [facility] [id number] [place] [address] 13316- 6385 May, [facility] [id number] [place] [address] 94534- 2276 May, Ingrown left greater toenail L60.0 [facility] [id number] [place] [address] 94040- 3534 May, [facility] [id number] [place] [address] 77312 -7555 May, Influenza A J10.1 ; Fever R50.9 and Body aches R52 [facility] [id number] [place] [address] 06585- 3215 Apr, [facility] [id number] [place] [address] 27526- 1700 Apr, [facility] [id number] [place] [address] 07773- 1165 Apr, [facility] [address] 28847- 3116 Apr, Abscess L02.91 and Obesity (BMI 30-39.9) E66.9 [facility] [id number] [place] [address] 38463- 9910 Apr, [place] [id number] [place] [address] 72245- 6581 Apr, [address] [address] 43435- 1797 Mar, Acute non-recurrent maxillary sinusitis J01.00 [place] [id number] [place] [address] 46815- 3211 Feb, Heartburn R12 [address] [address] 15981- 5286 Feb, Heartburn R12 ; Low back pain M54.5 ; Essential hypertension I10 ; Bilateral low back pain without sciatica M54.5 ; Anxiety F41.9 ; Pre-diabetes R73.03 ; Other obesity due to excess calories E66.09 ; Alternating constipation and diarrhea R19.8 ; Dyspepsia R10.13 ; Generalized abdominal pain R10.84 ; Rhinosinusitis J32.9 and Boil L02.92 [place] [id number] [place] [address] 78737- 5729 Jan, Heartburn R12 [place] [id number] [place] [address] 14499- 2227 Jan, [place] [id number] [place] [address] 62517- 0165 Jan, [place] [id number] [place] [address] 77147- 9846 Jan, Acute seasonal allergic rhinitis due to pollen J30.1 and Irritable bowel syndrome without diarrhea K58.9 [place] [id number] [place] [address] 42212- 9563 Dec, Low back pain M54.5 and Acute cystitis with hematuria N30.01 [place] [id number] [place] [address] 56387- 5165 Dec, Low back pain M54.5 and Acute cystitis with hematuria N30.01 [place] [id number] [place] [address] 37058- 7322 Dec, Heartburn R12 ; Essential hypertension I10 ; Acute non- recurrent maxillary sinusitis J01.00 ; Bilateral low back pain without sciatica M54.5 ; Anxiety F41.9 ; Pre-diabetes R73.03 ; Pain in right foot M79.671 ; Pain in left foot M79.672 ; Other obesity due to excess calories E66.09 and Acute cystitis with hematuria N30.01 [address] [address] 08228- 2185 Dec, Bilateral low back pain without sciatica M54.5 ; Acute non- recurrent maxillary sinusitis J01.00 and Pre-diabetes R73.03 [address] [address] 55054- 4443 Oct, [facility] [address] [address] -[address]68 Aug, [facility] [address] [address]95 -6931 Aug, Acute vaginitis N76.0 ; Urinary frequency R35.0 ; Screen for STD (sexually transmitted disease) Z11.3 and Abscess L02.[address] 75093- 9086 Aug, Plantar wart of right foot B07.0 [place] [address] 64561- 4688 Jul, Plantar wart of right foot B07.0 [address] [place] [address] 42218- 1757 Jun, [address] 81790- 1472 Jun, Heartburn R12 ; Essential hypertension I10 ; Anxiety F41.9 ; Folliculitis L73.9 and Plantar wart of right foot B07.0 [address] [place] [id number] [place] [address] Jun, [facility] [address] 03408 -4565 May, Low back pain M54.5 and Other chronic pain G89.29 [address] [place] [address] 42351- 4856 May, [place] [address] 82958- 5590 May, [address] [address] 53345- 5435 May, Heartburn R12 ; Bilateral low back pain without sciatica M54.5 ; Essential hypertension I10 ; Long-term use of high-risk medication Z79.899 ; Anxiety F41.9 ; Impacted cerumen of right ear H61.21 ; Folliculitis L73.9 ; High risk bisexual behavior Z72.53 and General medical exam Z00.00 [address] [place] [address] 99594- 6554 May, [address] [address] 97367- 2732 May, [address] [address] 84281- 7541 Mar, Acute nasopharyngitis J00 ; Acute intractable tension-type headache G44.201 and Cough R05 [place] [id number] [place] [address] 67077- 6671 Jan, [facility] [address] 92876 -3028 Jan, Abscess L02.91 [facility] [place] 054[address] -2980 10 Jan, 2016 Urinary urgency R39.15 and Urinary tract infection without hematuria, site unspecified N39.0 [place] [address] [place] [address]- 8808 Jan, [facility] [id number] [place] [address] 47533- 1941 Jan, [facility] [id number] [place] [address] 31437- 8301 Dec, [facility] [id number] [place] [address] 92310- 6645 Dec, Dermatofibroma D23.9 [facility] [id number] [place] [address] 16479- 7852 September, [facility] [id number] [place] [address] 94950- 1808 Aug, [facility] [id number] [place] [address] 19121- 7478 Aug, Pain in left knee M25.562 ; Heartburn R12 ; Bilateral low back pain without sciatica M54.5 ; Essential hypertension I10 ; Ingrown left big toenail L60.0 ; Chronic pain G89.29 ; Irritable bowel syndrome with constipation K58.9 and Skin infection L08.9 [facility] [id number] [place] [address] 03514- 6591 Aug, [facility] [id number] [place] [address] 04365- 2916 Jul, [facility] [id number] [place] [address] 81019- 3073 Jun, [facility] [id number] [place] [address] 24822- 3026 Jun, [facility] [id number] [place] [address] 60974- 8943 Jun, [facility] [id number] [place] [address] 16680- 3613 Jun, [facility] [id number] [place] [address] 62437- 9752 Jun, Upper respiratory infection J06.9 ; Bilateral low back pain without sciatica M54.5 and Headache R51 [facility] [id number] [place] [address] 53372- 5382 May, [facility] [id number] [place] [address] 23665- 4419 Apr, Bilateral low back pain without sciatica M54.5 ; Upper respiratory infection J06.9 and Yeast dermatitis B37.2 [facility] [id number] [place] [address] 78430- 5380 Apr, [facility] [address] 69972- 5574 Apr, [facility] [id number] [place] [address] 04675- 1081 Feb, [facility] [id number] [place] [address] 24574- 2638 Feb, [facility] [id number] [place] [address] 41151- 7991 Feb, [facility] [id number] [place] [address] 82868- 8458 Feb, Essential hypertension I10 ; Heartburn R12 ; Irritable bowel syndrome without diarrhea K58.9 ; Bilateral low back pain, with sciatica presence unspecified M54.5 and Upper respiratory infection J06.9 [facility] [id number] [place] [address] 63887- 9812 Feb, [facility] [id number] [place] [address] 61915- 1407 Feb, Generalized anxiety disorder F41.1 and Grief F43.20 [facility] [id number] [place] [address] 55339- 1231 Jan, [facility] [id number] [place] [address] 14666- 6084 Jan, Back pain 724.5 ; Upper respiratory infection 465.9 ; HTN ( hypertension) 401.9 and Dyspepsia 536.8 [place] [id number] [place] [address] 93145- 7239 Dec, [facility] [id number] [place] [address] 78061- 1005 Nov, Back pain 724.5 ; Abdominal pain, bilateral lower quadrant 789.03 ; GERD (gastroesophageal reflux disease) 530.81 ; Upper respiratory infection 465.9 ; Dysuria 788.1 and HTN (hypertension) 401.9 [address] [id number] [place] [address] 23090- 3273 Nov, [place] [id number] [place] [address] 51389- 5345 Nov, [place] [address] 25909- 2936 Nov, [place] [id number] [place] [address] 51284- 7305 Nov, Cough 786.2 [address] [place] [address] 17213- 3367 Nov, Cough 786.2 [place] [id number] [place] [address] 97557- 8416 Oct, Unspecified episodic mood disorder 296.90 and Anxiety disorder, unspecified 300.00 [place] [id number] [place] [address] 45557- 6820 Oct, Abdominal pain, left upper quadrant 789.02 ; Essential hypertension, benign 401.1 ; Irritable bowel syndrome 564.1 ; Abscess 682.9 ; Heartburn 787.1 ; Acute sinusitis, unspecified 461.9 ; Muscle spasm of back 724.8 ; Cough 786.2 and Skin tag 701.9 [place] [id number] [place] [address] 12889- 0784 September, [facility] [place] [facility] [address] [id number] [place] [address]- 6646 September, [facility] [place] [facility] [address] [id number] [place] [address]- 9372 September, [facility] [place] [facility] [address] [id number] [place] [address]- 7305 Aug, [facility] [place] [facility] [address] [id number] [place] [address]- 6270 Aug, [facility] [place] [facility] [address] [id number] [place] [address]- 2325 Jul, [facility] [place] [facility] [address] [id number] [place] [address]- 5647 Jul, [facility] [place] [facility] [address] [id number] [place] [address]- 5178 Jul, [facility] [place] [facility] [address] [id number] [place] [address]- 3551 Jul, [facility] [place] [facility] [address] [id number] [place] [address]- 2774 Jul, [facility] [place] [facility] [address] [id number] [place] [address]- 1457 Jul, [facility] [place] [facility] [address] [id number] [place] [address]- 0898 Jul, [facility] [place] [facility] [address] [id number] [place] [address]- 1662 Jul, [facility] [place] [facility] [address] [id number] [place] [address]- 0105 Jul, [facility] [place] [facility] [address] [id number] [place] [address]- 5227 Jul, [facility] [place] [facility] [address] [id number] [place] [address]- 0659 Jul, [facility] [place] [facility] [address] [id number] [place] [address]- 2546 Jul, [facility] [place] [facility] [address] [id number] [place] [address]- 3816 Jul, [facility] [place] [facility] [address] [id number] [place] [address]- 0195 Jul, 2014 [facility] [place] [facility] [address] [facility] [id number] [place] [address]- 8191 Jul, 2014 [facility] [place] [facility] [address] [id number] [place] [address]- 2713 Jul, 2014 [facility] [place] [facility] [address] [id number] [place] [address]- 0464 Jul, 2014 [facility] [place] [facility] [address] [facility] [id number] [place] [address]- 3974 Jun, 2014 [facility] [place] [facility] [address] [facility] [id number] [place] [address]- 2565 Jun, 2014 [facility] [place] [facility] [address] [facility] [id number] [place] [address]- 1111 Jun, 2014 [facility] [place] [facility] [address] [facility] [id number] [place] [address]- 7730 Jun, 2014 [facility] [place] [facility] [address] [facility] [id number] [place] [address]- 6105 Jun, 2014 [facility] [place] [facility] [address] [facility] [id number] [place] [address]- 1161 Jun, 2014 [facility] [place] [facility] [address] [facility] [id number] [place] [address]- 9474 Jun, 2014 [facility] [place] [facility] [address] [facility] [id number] [place] [address]- 7934 Jun, 2014 [facility] [place] [facility] [address] [facility] [id number] [place] [address]- 1577 Apr, [facility] [place] [facility] [address] [facility] [id number] [place] [address]- 9907 Apr, [facility] [place] [facility] [address] [id number] [place] [address]- 4766 Apr, [facility] [place] [facility] [address] [id number] [place] [address]- 2946 Apr, [facility] [place] [facility] [address] [id number] [place] [address]- 6677 Apr, [facility] [place] [facility] [address] [id number] [place] [address]- 2460 Apr, [facility] [place] [facility] [address] [id number] [place] [address]- 5441 Apr, [facility] [place] [facility] [address] [id number] [place] [address]- 3601 Apr, [facility] [place] [facility] [address] [id number] [place] [address]- 3832 Apr, [facility] [place] [facility] [address] [id number] [place] [address]- 3749 Apr, [facility] [place] [facility] [address] [id number] [place] [address]- 1619 Apr, [facility] [place] [facility] [address] [id number] [place] [address]- 9768 Apr, [facility] [place] [facility] [address] [id number] [place] [address]- 9616 Apr, [facility] [place] [facility] [address] [id number] [place] [address]- 5362 Apr, [facility] [place] [facility] [address] [id number] [place] [address]- 8757 Apr, [facility] [place] [facility] [address] [id number] [place] [address]- 5313 Feb, [facility] [place] [facility] [address] [id number] [place] [address]- 2775 13 Feb, 2014 [facility] [place] [facility] [address] [id number] [place] [address]- 8826 Feb, [facility] [place] [facility] [address] [id number] [place] [address]- 9315 Feb, [facility] [place] [facility] [address] [id number] [place] 8393 Feb, [facility] [place] [facility] [address] [id number] [place] [address]- 1426 Feb, [facility] [place] [facility] [address] [id number] [place] [address]- 6446 Jan, [facility] [place] [facility] [address] [id number] [place] [address]- 6792 Jan, [facility] [place] [facility] [address] [id number] [place] [address]- 3031 Jan, [facility] [place] [facility] [address] [id number] [place] [address]- 2993 Jan, [facility] [place] [facility] [address] [id number] [place] [address]- 1930 Jan, [facility] [place] [facility] [address] [id number] [place] [address]- 9405 Jan, [facility] [place] [facility] [address] [id number] [place] [address]- 2898 Dec, [facility] [place] [facility] [address] [id number] [place] [address]- 8260 Dec, [facility] [place] [facility] [address] [id number] [place] [address]- 0301 Dec, [facility] [place] [facility] [address] [id number] [place] [address]- 1561 Dec, [facility] [place] [facility] [address] [id number] [place] [address]- 2103 Nov, [facility] [place] [facility] [address] [id number] [place] [address]- 7264 Nov, [facility] [place] [facility] [address] [id number] [place] [address]- 5768 Nov, [facility] [place] [facility] [address] [id number] [place] [address]- 9645 Nov, [facility] [place] [facility] [address] [id number] [place] [address]- 3050 Nov, [facility] [place] [facility] [address] [id number] [place] [address]- 4860 Nov, [facility] [place] [facility] [address] [id number] [place] [address]- 4865 Nov, [facility] [place] [facility] [address] [id number] [place] [address]- 6861 Nov, [facility] [place] [facility] [address] [id number] [place] [address]- 2170 Oct, [facility] [place] [facility] [address] [id number] [place] [address]- 5026 Oct, [facility] [place] [facility] [address] [id number] [place] [address]- 1452 Oct, [facility] [place] [facility] [address] [id number] [place] [address]- 5982 Oct, [facility] [place] [facility] [address] [id number] [place] [address]- 0324 Oct, [facility] [place] [facility] [address] [id number] [place] [address]- 2542 Oct, [facility] [place] [facility] [address] [id number] [place] [address]- 4874 Oct, [facility] [place] [facility] [address] [id number] [place] [address]- 1729 Oct, [facility] [place] [facility] [address] [id number] [place] [address]- 7726 Oct, [facility] [place] [facility] [address] [id number] [place] [address]- 2889 Oct, [facility] [place] [facility] [address] [id number] [place] [address]- 8991 Oct, [facility] [place] [facility] [address] [id number] [place] [address]- 7094 Oct, [facility] [place] [facility] [address] [id number] [place] [address]- 0809 18 Oct, 2013 [facility] [place] [facility] [address] [id number] [place] [address]- 5091 18 Oct, 2013 [facility] [place] [facility] [address] [id number] [place] [address]- 7922 17 Oct, 2013 [facility] [place] [facility] [address] [id number] [place] [address]- 7552 17 Oct, 2013 [facility] [place] [facility] [address] [id number] [place] [address]- 8464 16 Oct, 2013 [facility] [place] [facility] [address] [id number] [place] [address]- 5624 16 Oct, 2013 [facility] [place] [facility] [address] [id number] [place] [address] Oct, [facility] [place] [facility] [address] [id number], [place] [address] Oct, [facility] [place] [facility] [address] [id number], [place] [address] Oct, [facility] [place] [facility] [address] [id number], [place] [address] Oct, [facility] [place] [facility] [address] [id number] [place] [address] Oct, [facility] [place] [facility] [address] [id number], [place] [address] Oct, [facility] [place] [facility] [address] [id number], [place] [address] 06 Oct, 2013 [facility] [place] [facility] [address] [id number], [place] [address] Oct, [facility] [place] [facility] [address] [id number] [place] [address] Oct, [facility] [place] [facility] [address] [id number] [place] [address]28 Oct, [facility] [place] [facility] [address] [id number] [place] [address] Oct, [facility] [place] [facility] [address] [id number] [place] [address] Oct, [facility] [place] [facility] [address] [id number] [place] [address] September, [facility] [place] [facility] [address] [id number] [place] [address]- [address] September, [facility] [place] [facility] [address] [id number] [place] [address] September, [facility] [place] [facility] [address] [id number] [place] [address] September, [facility] [place] [facility] [address] [id number] [place] [address] September, [facility] [place] [facility] [address] [id number] [place] [address] September, [facility] [place] [facility] [address] [id number] [place] [address]- [address] September, [facility] [place] [facility] [address] [id number] [place] [address] September, [facility] [place] [facility] [address] [id number] [place] [address] September, [facility] [place] [facility] [address] [id number] [place] [address] September, [facility] [place] [facility] [address] [id number] [place] [address]- [address] September, [facility] [place] [facility] [address] [id number] [place] [address]- [address] September, [facility] [place] [facility] [address] [id number] [place] [address]- [address] September, [facility] [place] [facility] [address] [id number] [place] [address]- [address]698 September, [facility] [place] [facility] [address] [id number] [place] [address] September, [facility] [place] [facility] [address] [id number] [place] [address] September, [facility] [place] [facility] [address] [id number] [place] [address] September, [facility] [place] [facility] [address] [id number] [place] [address] 47[address] September, [facility] [place] [facility] [address] [id number] [place] [address] Aug, [facility] [place] [facility] [address] [id number] [place] [address] Aug, [facility] [place] [facility] [address] [id number] [place] [address] Aug, [facility] [place] [facility] [address] [id number] [place] [address] Aug, [facility] [place] [facility] [address] [id number] [place] [address] Aug, [facility] [place] [facility] [address] [id number] [place] [address] Aug, [facility] [place] [facility] [address] [id number] [place] [address] 2010 Jul, [facility] [place] [facility] [address] [id number] [place] [address] Jul, [facility] [place] [facility] [address] [id number] [place] [address] Jul, [facility] [place] [facility] [address] [id number] [place] [address] Jul, [facility] [place] [facility] [address] [id number] [place] [address] Jun, [facility] [place] [facility] [address] [id number] [place] [address] Jun, [facility] [place] [facility] [address] [id number] [place] [address] Jun, [facility] [place] [facility] [address] [id number] [place] [address] 7755 Jun, [facility] [place] [facility] [address] [id number] [place] [address] 28[address] Mar, [facility] [place] [facility] [address] [id number] [place] [address] 5020 Mar, [facility] [place] [facility] [address] [id number] [place] [address] 7659 Mar, [facility] [place] [facility] [address] [id number] [place] [address] 3199 Mar, [facility] [place] [facility] [address] [id number] [place] [address] 8481 Feb, [facility] [place] [facility] [address] [id number] [place] [address] 9767 Feb, [facility] [place] [facility] [address] [id number] [place] [address]- 0439 Feb, [facility] [place] [facility] [address] [id number] [place] [address] 46[address] Jan, [facility] [place] [facility] [address] [id number] [place] [address] 7810 20 Jan, 2013 [facility] [place] [facility] [address] [id number] [place] [address]- 8821 12 Jan, 2013 [facility] [place] [facility] [address] [id number] [place] [address] 34[address] Jan, [facility] [address] [id number] [place] [address]101 Dec, [facility] [place] [facility] [address] [id number] [place] [address]- 7871 Dec, [facility] [address] [id number] [place] [address] 6303 Dec, [facility] [place] [facility] [address] [id number] [place] [address]- 9276 Dec, [facility] [address] [id number] [place] [address]- 9741 Nov, [facility] [place] [facility] [address] [id number] [place] [address]- 1271 Nov, [facility] [address] [id number] [place] [address] 8927 Nov, [facility] [address] [id number] [place] [address]- 6304 Nov, [facility] [place] [facility] [address] [id number] [place] [address]- 0257 Nov, [facility] [address] [id number] [place] [address]- 1296 Nov, [facility] [place] [facility] [address] [id number] [place] [address]- 4658 Oct, [facility] [place] [facility] [address] [id number] [place] [address]- 8308 Oct, [facility] [place] [facility] [address] [id number] [place] [address]- 1474 Oct, [facility] [place] [facility] [address] [id number] [place] [address] 1967 Oct, [facility] [place] [facility] [address] [id number] [place] [address] Oct, [facility] [address] [id number] [place] [address]- 6143 16 Oct, 2012 [facility] [place] [facility] [address] [id number] [place] [address]- 2250 14 Oct, 2012 [facility] [place] [facility] [address] [id number] [place] [address]- 9413 13 Oct, 2012 [facility] [place] [facility] [address] [id number] [place] [address]- 3729 Oct, [facility] [place] [facility] [address] [id number] [place] [address]- 6222 Oct, [facility] [place] [facility] [address] [id number] [place] [address]- 6965 September, [facility] [place] [facility] [address] [id number] [place] [address]- 3467 September, [facility] [place] [facility] [address] [id number] [place] [address]- 5301 September, [facility] [place] [facility] [address] [id number] [place] [address]- 5326 Aug, [facility] [place] [facility] [address] [id number] [place] [address]- 6645 Aug, [facility] [place] [facility] [address] [id number] [place] [address]- 1339 Aug, [facility] [place] [facility] [address] [id number], [place] [address] Aug, [facility] [place] [facility] [address] [id number] [place] [address]- 5680 Jul, [facility] [place] [facility] [address] [id number] [place] [address]- 2722 Jul, [facility] [place] [facility] [address] [id number] [place] [address]- 6629 Jul, [facility] [place] [facility] [address] [id number], [place] [address]- 287[address] Jul, [facility] [address] [id number] [place] [address]- 5601 Jul, [facility] [address] [id number] [place] [address]- 7549 Jul, [facility] [address] [id number] [place] [address]- 4543 May, [facility] [address] [id number] [place] [address]- 3404 May, [facility] [address] [id number] [place] [address]- 9947 May, [facility] [address] [id number] [place] [address]- 8415 May, [facility] [address] [id number] [place] [address]- 4239 May, [facility] [address] [id number] [place] [address]- 8248 May, [facility] [address] [id number] [place] [address]- 3782 May, [facility] [address] [id number] [place] [address]- 0371 May, [facility] [address] [id number] [place] [address]- 1437 May, [facility] [address] [id number], [place] [address]- 9623 17 May, 2012 [facility] [address] [id number] [place] [address]- 1442 16 May, 2012 [facility] [address] [id number] [place] [address]- 7534 Apr, [facility] [address] [id number] [place] [address]- 2788 Apr, [facility] [place] [facility] [address] [id number] [place] [address]- 7775 Apr, [facility] [place] [facility] [address] [id number] [place] [address]- 2832 Apr, [facility] [place] [facility] [address] [id number] [place] [address]- 6396 Apr, [facility] [place] [facility] [address] [id number] [place] [address]- 2246 Apr, [facility] [place] [facility] [address] [id number] [place] [address]- 9106 Mar, [facility] [place] [facility] [address] [id number] [place] [address]- 1005 Mar, [facility] [place] [facility] [address] [id number] [place] [address]- 4693 Mar, [facility] [place] [facility] [address] [id number] [place] [address]- 3377 Mar, [facility] [place] [facility] [address] [id number] [place] [address]- 2691 Mar, [facility] [place] [facility] [address] [id number] [place] [address]- 1598 Mar, [facility] [place] [facility] [address] [id number] [place] [address]- 1211 Mar, [facility] [place] [facility] [address] [id number] [place] [address]- 6621 Mar, [facility] [place] [facility] [address] [id number] [place] [address]- 2352 Feb, [facility] [place] [facility] [address] [id number] [place] [address]- 6686 23 Feb, 2012 [facility] [place] [facility] [address] [id number] [place] [address]- 0321 16 Feb, 2012 [facility] [place] [facility] [address] [id number] [place] [address] 5309 15 Feb, 2012 [facility] [place] [facility] [address] [id number] [place] [address]- 1290 15 Feb, 2012 [facility] [place] [facility] [address] [id number] [place] [address]- 8590 13 Feb, 2012 [facility] [place] [facility] [address] [id number] [place] [address]- 0719 Feb, [facility] [place] [facility] [address] [id number] [place] [address]- 1744 Feb, [facility] [place] [facility] [address] [id number] [place] [address]- 0898 Feb, [facility] [place] [facility] [address] [id number] [place] [address]- 2256 Feb, [facility] [place] [facility] [address] [id number] [place] [address]- 2971 Feb, [facility] [place] [facility] [address] [id number], [place] [address]- 5799 Feb, [facility] [place] [facility] [address] [id number], [place] [address]- 0149 Feb, [facility] [place] [facility] [address] [id number], [place] [address]- 2377 Feb, [facility] [place] [facility] [address] [id number], [place] [address]- 3797 Feb, [facility] [place] [facility] [address] [id number], [place] [address]- 3350 Feb, [facility] [place] [facility] [address] [id number], [place] [address]- 4176 Feb, [facility] [place] [facility] [address] [id number], [place] [address]- 6903 Feb, [facility] [place] [facility] [address] [id number], [place] [address]- 6136 Jan, [facility] [place] [facility] [address] [id number] [place] [address]- 3800 13 Jan, 2012 [facility] [place] [facility] [address] [id number] [place] [address]- 2976 11 Jan, 2012 [facility] [place] [facility] [address] [id number] [place] [address] 2546 10 Jan, 2012 [facility] [place] [facility] [address] [id number] [place] [address] 2546 05 Jan, 2012 [facility] [place] [facility] [address] [id number] [place] [address] 2546 Dec, [facility] [place] [facility] [address] [id number] [place] [address]- 9892 Dec, [facility] [place] [facility] [address] [id number] [place] [address]- 4136 Dec, [facility] [place] [facility] [address] [id number] [place] [address]- 9738 Dec, [facility] [place] [facility] [address] [id number] [place] [address]- 6798 Dec, [facility] [place] [facility] [address] [id number] [place] [address]- 5669 Dec, [facility] [place] [facility] [address] [id number] [place] [address]- 8744 Nov, [facility] [place] [facility] [address] [id number] [place] [address]- 0066 Nov, [facility] [place] [facility] [address] [id number] [place] [address]- 254 Nov, [facility] [place] [facility] [address] [id number] [place] [address]- 0057 Nov, [facility] [place] [facility] [address] [id number] [place] [address]- 2546 Nov, [facility] [place] [facility] [address] [id number] [place] [address]- 5162 Oct, [facility] [place] [facility] [address] [id number] [place] [address]- 6612 Oct, [facility] [place] [facility] [address] [id number] [place] [address]- 5798 Oct, [facility] [place] [facility] [address] [id number] [place] [address]- 6343 September, [facility] [place] [facility] [address] [id number] [place] [address]- 3808 September, [facility] [place] [facility] [address] [id number] [place] [address]- 1065 September, [facility] [place] [facility] [address] [id number] [place] [address]- 3071 September, [facility] [place] [facility] [address] [id number] [place] [address]- 2445 September, [facility] [place] [facility] [address] [id number] [place] [address]- 3982 September, [facility] [place] [facility] [address] [id number] [place] [address]- 7869 Aug, [facility] [place] [facility] [address] [id number] [place] [address]- 9979 Aug, [facility] [place] [facility] [address] [id number] [place] [address]- 8907 Aug, [facility] [place] [facility] [address] [id number] [place] [address]- 8399 Jun, [facility] [place] [facility] [address] [id number] [place] [address]- 7191 Jun, [facility] [place] [facility] [address] [id number] [place] [address]- 4522 Jun, [facility] [place] [facility] [address] [id number] [place] [address]- 3745 Jun, [facility] [place] [facility] [address] [id number], [place] [address]- 0958 May, [facility] [address] [id number] [place] [address]- 7449 May, [facility] [place] [facility] [address] [id number] [place] [address]- 7029 May, [facility] [address] [facility] [id number] [place] [address]- 2174 May, [facility] [address] [id number] [place] [address]- 9932 May, [facility] [address] [facility] [id number] [place] [address], [place] [address]- 4400 Apr, [facility] [place] [facility] [address] [id number] [place] [address]- 8975 Apr, [facility] [address] [facility] [id number] [place] [address]- 1692 Apr, [facility] [place] [facility] [address] [facility] [id number] [place] [address]- 1269 Apr, [facility] [address] [facility] [id number] [place] [address]- 3065 Apr, [facility] [address] [facility] [id number] [place] [address]- 5242 Apr, [facility] [address] [facility] [id number] [place] [address]- 0984 16 Apr, 2011 [facility] [place] [facility] [address] [id number], [place] [address]- 6166 Mar, [facility] [place] [facility] [address] [id number] [place] [address]- 7587 Mar, [facility] [place] [facility] [address] [facility] [id number] [place] [address]- 5468 15 Mar, 2011 [facility] [place] [facility] [address] [facility] [id number] [place] [address]- 6627 Feb, [facility] [place] [facility] [address] [id number] [place] [address]- 8736 Feb, [facility] [place] [facility] [address] [id number] [place] [address]- 5336 Feb, [facility] [place] [facility] [address] [id number] [place] [address] 2546 Feb, [facility] [place] [facility] [address] [id number] [place] [address] 2546 Feb, [facility] [place] [facility] [address] [id number] [place] [address] 2549 Feb, [facility] [place] [facility] [address] [id number] [place] [address]- 9396 Jan, [facility] [place] [facility] [address] [id number] [place] [address]- 2655 Jan, [facility] [place] [facility] [address] [id number] [place] [address]- 7208 September, [facility] [place] [facility] [address] [id number] [place] [address]- 2036 Jun, [facility] [place] [facility] [address] [id number] [place] 1177 Apr, [facility] [place] [facility] [address] [id number] [place] [address] 2546 Apr, [facility] [place] [facility] [address] [id number] [place] [address] 2546 Apr, [facility] [place] [facility] [address] [id number] [place] [address] 2546 Apr, [facility] [place] [facility] [address] [id number] [place] [address] 2546 Apr, [facility] [place] [facility] [address] [id number] [place] [address] 2546 Mar, [facility] [place] [facility] [address] [id number] [place] [address]- 8686 Mar, [facility] [address] [id number] [address] Mar, [facility] [id number], [place] [address]- 9414 Mar, [facility] [id number], [place] [address]- 7030 Feb, [facility] [id number] [place] [address]- 9431 15 Jan, 2010 [facility] [id number], [place] [address]- 0828 Mar, [facility] [id number], [place] [address]- 6371 Jan, [facility] [id number], [place] [address]- 7889 Oct, [facility] [id number], [place] [address]- 9708 Apr, IMMUNIZATIONS No Known Immunizations SOCIAL HISTORY Never Assessed REASON FOR VISIT Request Return Call PLAN OF CARE VITAL SIGNS MEDICATIONS Unknown [...]
--- OUTSIDE RECORDS SUMMARY | 2018-03-22 22:08 | XMS REPORT ---
Author Author JEVON MCLEAN Organization [facility] Address [address] [place] [address] Care Team Providers Care Lease Picker Name Role Phone JEVON MCLEAN Unavailable PROBLEMS Type Condition ICD9-CM Code DTC44-WX Code Onset Dates Condition Status SNOMED Code Problem Other chronic pain G89.29 Active 78909432 Problem Pain in left foot M79.672 Active 254747880177509 Problem Plantar wart of right foot B07.0 Active 10723227 Problem Obesity (BMI 30-39.9) E66.9 Active 995638910 Problem Heartburn R12 Active 42327302 Problem Rhinosinusitis J32.9 Active 23914907 Problem Other obesity due to excess calories E66.09 Active 936543525 Problem Pain in right foot M79.671 Active [id number] Problem Alternating constipation and diarrhea R19.8 Active 745004919 Problem Acute non-recurrent maxillary sinusitis J01.00 Active 78462946 Problem Essential hypertension I10 Active 34657435 Problem Bilateral low back pain without sciatica M54.5 Active 540287018 Problem Irritable bowel syndrome without diarrhea K58.9 Active 60295754 Problem Bilateral low back pain, with sciatica presence unspecified M54.5 Active 315495489 Problem High risk bisexual behavior Z72.53 Active 840221018 Problem Long-term use of high-risk medication Z79.899 Active 237286957 Problem Pre-diabetes R73.03 Active 753390738 Problem Impacted cerumen of right ear H61.21 Active 75746945 Problem Anxiety F41.9 Active 96924143 Problem Folliculitis L73.9 Active 96576509 ALLERGIES Substance Reaction Event Type Date Status Penicillin V Potassium anaphylaxis Drug Allergy Apr, Active surgical tape "tears skin off" Non Drug Allergy Apr, Active ENCOUNTERS Encounter Location Date Diagnosis [facility] [address] [facility] [id number] [address] September, Pre-diabetes R73.03 [facility] [id number] [place] [address] 09482- 5301 Aug, [facility] [address] 36898- 1752 Jul, Bilateral low back pain without sciatica M54.5 [facility] [address] 07335- 7621 Jun, [facility] [id number] [place] [address] 01216- 7033 Jun, [facility] [address] 03175- 8169 Jun, [facility] [address] 31803- 0078 May, [facility] [address] 45472- 5489 May, Ingrown left greater toenail L60.0 [facility] [id number] [place] [address] 07801- 6095 May, [facility] WALK IN [facility] [id number] [place] [address] 43818 -8712 May, Influenza A J10.1 ; Fever R50.9 and Body aches R52 [facility] [id number] [place] [address] 77835- 2085 Apr, [facility] [id number] [place] [address] 95872- 6856 Apr, [facility] [address] 05456- 9551 Apr, [facility] [id number] [place] [address] 96762- 2249 Apr, Abscess L02.91 and Obesity (BMI 30-39.9) E66.9 [facility] [id number] [place] [address] 01612- 1601 Apr, [place] [id number] [place] [address] 45754- 7516 Apr, [facility] [place] [id number] [place] [address] 05849- 4931 Mar, Acute non-recurrent maxillary sinusitis J01.00 [place] [address] 17535- 0122 Feb, Heartburn R12 [place] [address] 57636- 3122 Feb, Heartburn R12 ; Low back pain M54.5 ; Essential hypertension I10 ; Bilateral low back pain without sciatica M54.5 ; Anxiety F41.9 ; Pre-diabetes R73.03 ; Other obesity due to excess calories E66.09 ; Alternating constipation and diarrhea R19.8 ; Dyspepsia R10.13 ; Generalized abdominal pain R10.84 ; Rhinosinusitis J32.9 and Boil L02.92 [facility] [id number] [place] [address] 07487- 3542 Jan, Heartburn R12 [facility] [id number] [place] [address] 19341- 5280 Jan, [facility] [id number] [place] [address] 67250- 3277 Jan, [facility] [place] [id number] [place] [address] 57337- 5704 Jan, Acute seasonal allergic rhinitis due to pollen J30.1 and Irritable bowel syndrome without diarrhea K58.9 [facility] [id number] [place] [address] 39453- 4063 Dec, Low back pain M54.5 and Acute cystitis with hematuria N30.01 [facility] [id number] [place] [address] 98235- 1329 Dec, Low back pain M54.5 and Acute cystitis with hematuria N30.01 [place] [address] 43461- 8118 Dec, Heartburn R12 ; Essential hypertension I10 ; Acute non- recurrent maxillary sinusitis J01.00 ; Bilateral low back pain without sciatica M54.5 ; Anxiety F41.9 ; Pre-diabetes R73.03 ; Pain in right foot M79.671 ; Pain in left foot M79.672 ; Other obesity due to excess calories E66.09 and Acute cystitis with hematuria N30.01 [place] [address] 80298- 4541 Dec, Bilateral low back pain without sciatica M54.5 ; Acute non- recurrent maxillary sinusitis J01.00 and Pre-diabetes R73.03 [place] [address] 10699- 7684 Oct, [facility] [place] [address] 09057 -1607 Aug, [facility] WALK IN [place] [address] 34555 -2836 Aug, Acute vaginitis N76.0 ; Urinary frequency R35.0 ; Screen for STD (sexually transmitted disease) Z11.3 and Abscess L02.91 [place] [address] 11238- 2473 Aug, Plantar wart of right foot B07.0 [place] [address] 79900- 5106 Jul, Plantar wart of right foot B07.0 [place] [address] 70881- 1761 Jun, [place] [address] 36498- 1005 Jun, Heartburn R12 ; Essential hypertension I10 ; Anxiety F41.9 ; Folliculitis L73.9 and Plantar wart of right foot B07.0 [facility] [id number] [place] [address] 74318- 6770 Jun, [facility] WALK IN [facility] [address] 26064 -5983 May, Low back pain M54.5 and Other chronic pain G89.29 [place] [address] 87729- 5709 May, [place] [address] 52189- 4877 May, [place] [address] 58861- 3950 May, Heartburn R12 ; Bilateral low back pain without sciatica M54.5 ; Essential hypertension I10 ; Long-term use of high-risk medication Z79.899 ; Anxiety F41.9 ; Impacted cerumen of right ear H61.21 ; Folliculitis L73.9 ; High risk bisexual behavior Z72.53 and General medical exam Z00.00 [place] [address] 83415- 9469 May, [place] [address] 29317- 4813 May, [place] [address] 65556- 6150 Mar, Acute nasopharyngitis J00 ; Acute intractable tension-type headache G44.201 and Cough R05 [place] [id number] [place] [address] 03579- 2262 Jan, [facility] IN CARE [address] 11162 -4845 Jan, Abscess L02.91 [facility] WALK IN [facility] [address] 83689 -5710 Jan, Urinary urgency R39.15 and Urinary tract infection without hematuria, site unspecified N39.0 [facility] [address] [address] 7614 Jan, [facility] [address] [address]- 7351 Jan, [facility] [id number] [place] [address] 42423- 3082 Dec, [facility] [id number] [place] [address] 56118- 3337 Dec, Dermatofibroma D23.9 [facility] [id number] [place] [address] 69081- 6681 September, [facility] [id number] [place] [address] 23876- 5198 Aug, [facility] [id number] [place] [address] 13295- 7063 Aug, Pain in left knee M25.562 ; Heartburn R12 ; Bilateral low back pain without sciatica M54.5 ; Essential hypertension I10 ; Ingrown left big toenail L60.0 ; Chronic pain G89.29 ; Irritable bowel syndrome with constipation K58.9 and Skin infection L08.9 [facility] [address], [place] [address]- 6106 Aug, [facility] [address], [place] [address]- 9624 Jul, [facility] [address], [place] [address]- 2854 Jun, [facility] [id number] [place] [address] 71855- 2959 Jun, [facility] [address], [place] [address]- 9297 Jun, [facility] [id number] [place] [address] 05663- 8163 Jun, [facility] [id number] [place] [address] 19346- 4916 Jun, Upper respiratory infection J06.9 ; Bilateral low back pain without sciatica M54.5 and Headache R51 [facility] [id number] [place] [address] 71115- 9777 May, [facility] [address] 74419- 3000 Apr, Bilateral low back pain without sciatica M54.5 ; Upper respiratory infection J06.9 and Yeast dermatitis B37.2 [facility] [id number] [place] [address] 83154- 4670 Apr, [facility] [id number] [place] [address] 81848- 7868 Apr, [facility] [id number] [place] [address] 45902- 6480 Feb, [facility] [id number] [place] [address] 14909- 9805 Feb, [facility] [id number] [place] [address] 05454- 8531 Feb, [facility] [id number] [place] [address] 55177- 1801 Feb, Essential hypertension I10 ; Heartburn R12 ; Irritable bowel syndrome without diarrhea K58.9 ; Bilateral low back pain, with sciatica presence unspecified M54.5 and Upper respiratory infection J06.9 [facility] [id number] [place] [address] 55244- 6022 Feb, [facility] [id number] [place] [address] 43808- 8915 Feb, Generalized anxiety disorder F41.1 and Grief F43.20 [facility] [id number] [place] [address] 01163- 1875 Jan, [place] [id number] [place] [address] 27280- 7918 Jan, Back pain 724.5 ; Upper respiratory infection 465.9 ; HTN ( hypertension) 401.9 and Dyspepsia 536.8 [place] [id number] [place] [address] 83869- 4681 Dec, [place] [id number] [place] [address] 00957- 1446 Nov, Back pain 724.5 ; Abdominal pain, bilateral lower quadrant 789.03 ; GERD (gastroesophageal reflux disease) 530.81 ; Upper respiratory infection 465.9 ; Dysuria 788.1 and HTN (hypertension) 401.9 [place] [id number] [place] [address] 98064- 0859 Nov, [facility] [id number] [place] [address] 28632- 2345 Nov, [place] [id number] [place] [address] 60234- 7759 Nov, [place] [id number] [place] [address] 51766- 5989 Nov, Cough 786.2 [place] [id number] [place] [address] 34684- 1604 Nov, Cough 786.2 [place] [id number] [place] [address] 28191- 4413 Oct, Unspecified episodic mood disorder 296.90 and Anxiety disorder, unspecified 300.00 [place] [id number] [place] [address] 94011- 4260 Oct, Abdominal pain, left upper quadrant 789.02 ; Essential hypertension, benign 401.1 ; Irritable bowel syndrome 564.1 ; Abscess 682.9 ; Heartburn 787.1 ; Acute sinusitis, unspecified 461.9 ; Muscle spasm of back 724.8 ; Cough 786.2 and Skin tag 701.9 [place] [address] [facility] [id number] [place] [address]- 3076 September, [facility] [place] [facility] [address] [id number] [place] [address]- 5331 September, [facility] [place] [facility] [address] [id number] [place] [address]- 7142 September, [facility] [place] [facility] [address] [id number] [place] [address]- 4824 Aug, [facility] [place] [facility] [address] [id number] [place] [address]- 4351 Aug, [facility] [place] [facility] [address] [id number] [place] [address]- 2600 Jul, [facility] [place] [facility] [address] [id number] [place] [address]- 7171 Jul, [facility] [place] [facility] [address] [id number] [place] [address]- 4888 Jul, [facility] [place] [facility] [address] [id number] [place] [address]- 6730 Jul, [facility] [place] [facility] [address] [id number] [place] [address]- 6165 Jul, [facility] [place] [facility] [address] [id number] [place] [address]- 2397 Jul, [facility] [place] [facility] [address] [id number] [place] [address]- 8636 Jul, [facility] [place] [facility] [address] [id number] [place] [address]- 2507 Jul, [facility] [place] [facility] [address] [id number] [place] [address]- 1835 Jul, [facility] [place] [facility] [address] [id number] [place] [address]- 9416 Jul, [facility] [place] [facility] [address] [id number] [place] [address]- 2828 Jul, [facility] [place] [facility] [address] [id number] [place] [address]- 3797 Jul, [facility] [place] [facility] [address] [id number] [place] [address]- 2467 Jul, 2014 [facility] [place] [facility] [address] [id number] [place] [address]- 9724 Jul, [facility] [place] [facility] [address] [id number] [place] [address]- 8854 Jul, [facility] [place] [facility] [address] [id number] [place] [address]- 1299 Jul, [facility] [place] [facility] [address] [id number] [place] [address]- 4124 Jul, [facility] [place] [facility] [address] [id number] [place] [address]- 2998 Jun, 2014 [facility] [place] [facility] [address] [id number] [place] [address]- 4095 Jun, 2014 [facility] [place] [facility] [address] [id number] [place] [address]- 2804 Jun, 2014 [facility] [place] [facility] [address] [facility] [id number] [place] [address]- 9476 Jun, 2014 [facility] [place] [facility] [address] [facility] [id number] [place] [address]- 3586 Jun, 2014 [facility] [place] [facility] [address] [id number] [place] [address]- 8445 Jun, 2014 [facility] [place] [facility] [address] [id number] [place] [address]- 7337 Jun, 2014 [facility] [place] [facility] [address] [id number] [place] [address]- 8376 Jun, 2014 [facility] [place] [facility] [address] [facility] [id number] [place] [address]- 0870 Apr, [facility] [place] [facility] [address] [id number] [place] [address]- 8085 29 Apr, 2014 [facility] [place] [facility] [address] [id number] [place] 0176 Apr, [facility] [place] [facility] [address] [id number] [place] 9096 Apr, [facility] [place] [facility] [address] [id number] [place] [address]- 9196 Apr, [facility] [place] [facility] [address] [id number] [place] [address]- 3988 Apr, [facility] [place] [facility] [address] [id number] [place] [address]- 6598 Apr, [facility] [place] [facility] [address] [id number] [place] [address]- 7370 15 Apr, 2014 [facility] [place] [facility] [address] [id number] [place] [address]- 3773 Apr, [facility] [place] [facility] [address] [id number] [place] [address]- 5116 Apr, [facility] [place] [facility] [address] [id number] [place] [address]- 8601 Apr, [facility] [place] [facility] [address] [id number] [place] [address]- 9194 Apr, [facility] [place] [facility] [address] [id number] [place] [address]- 1323 Apr, [facility] [place] [facility] [address] [id number] [place] [address]- 6326 04 Apr, 2014 [facility] [place] [facility] [address] [id number] [place] [address]- 6243 Apr, [facility] [place] [facility] [address] [id number] [place] [address]- 8143 13 Feb, 2014 [facility] [place] [facility] [address] [id number] [place] [address]- 0566 Feb, [facility] [place] [facility] [address] [id number] [place] [address]- 4127 Feb, [facility] [place] [facility] [address] [id number] [place] [address]- 8757 Feb, [facility] [place] [facility] [address] [id number] [place] [address]- 8413 Feb, [facility] [place] [facility] [address] [id number] [place] [address]- 4831 Feb, [facility] [place] [facility] [address] [id number] [place] [address]- 8683 Jan, [facility] [place] [facility] [address] [id number] [place] [address]- 7475 Jan, 2013 [facility] [place] [facility] [address] [id number] [place] [address]- 9734 Jan, [facility] [place] [facility] [address] [id number] [place] [address]- 2899 Jan, 2013 [facility] [place] [facility] [address] [id number] [place] [address]- 8777 Jan, [facility] [place] [facility] [address] [id number] [place] [address]- 9950 Jan, 2013 [facility] [place] [facility] [address] [id number] [place] [address]- 3524 Dec, [facility] [place] [facility] [address] [id number] [address]- 5496 Dec, [facility] [place] [facility] [address] [id number] [place] [address]- 4126 Dec, [facility] [place] [facility] [address] [id number] [place] [address]- 4854 Dec, [facility] [place] [facility] [address] [id number] [place] [address]- 3127 Nov, [facility] [place] [facility] [address] [id number] [place] [address]- 6479 Nov, [facility] [place] [facility] [address] [id number] [place] [address]- 2255 Nov, [facility] [place] [facility] [address] [id number] [place] [address]- 6544 Nov, [facility] [place] [facility] [address] [id number] [place] [address]- 9258 Nov, [facility] [place] [facility] [address] [id number] [place] [address]- 5494 Nov, [facility] [place] [facility] [address] [id number] [place] [address]- 8796 Nov, [facility] [place] [facility] [address] [id number] [place] [address]- 1287 Nov, [facility] [place] [facility] [address] [id number] [place] [address]- 0140 Oct, [facility] [place] [facility] [address] [id number] [place] [address]- 2995 Oct, [facility] [place] [facility] [address] [id number] [place] [address]- 8894 Oct, [facility] [place] [facility] [address] [id number] [place] [address]- 5207 Oct, [facility] [place] [facility] [address] [id number] [place] [address]- 0979 Oct, [facility] [place] [facility] [address] [id number] [place] [address]- 2541 Oct, [facility] [place] [facility] [address] [id number] [place] [address]- 3035 Oct, [facility] [place] [facility] [address] [id number] [place] [address]- 0937 Oct, [facility] [place] [facility] [address] [id number] [place] [address]- 3740 Oct, [facility] [place] [facility] [address] [id number] [place] [address]- 8899 Oct, [facility] [place] [facility] [address] [id number] [place] [address]- 1156 Oct, [facility] [place] [facility] [address] [id number] [place] [address]- 2008 Oct, [facility] [place] [facility] [address] [id number] [place] [address]- 7142 Oct, [facility] [place] [facility] [address] [id number] [place] [address]- 6480 18 Oct, 2013 [facility] [place] [facility] [address] [id number] [place] [address]- 4561 Oct, [facility] [place] [facility] [address] [id number] [place] [address]- 6524 Oct, [facility] [place] [facility] [address] [id number] [place] [address] 16 Oct, 2013 [facility] [place] [facility] [address] [id number] [place] [address] Oct, [facility] [place] [facility] [address] [id number] [place] [address] Oct, [facility] [place] [facility] [address] [id number] [place] [address] Oct, [facility] [place] [facility] [address] [id number] [place] [address] Oct, [facility] [place] [facility] [address] [id number] [place] [address] Oct, [facility] [place] [facility] [address] [id number] [place] [address] Oct, [facility] [place] [facility] [address] [id number] [place] [address] 09 Oct, 2013 [facility] [place] [facility] [address] [id number] [place] [address] Oct, [facility] [place] [facility] [address] [id number] [place] [address] Oct, [facility] [place] [facility] [address] [id number] [place] [address] Oct, [facility] [place] [facility] [address] [id number] [place] [address] Oct, [facility] [place] [facility] [address] [id number] [place] [address] Oct, [facility] [place] [facility] [address] [id number] [place] [address] Oct, [facility] [place] [facility] [address] [id number] [place] [address] September, [facility] [place] [facility] [address] [id number] [place] [address] September, [facility] [place] [facility] [address] [id number] [place] [address] September, [facility] [place] [facility] [address] [id number] [place] [address] September, [facility] [place] [facility] [address] [id number] [place] [address] September, [facility] [place] [facility] [address] [id number] [place] [address] September, [facility] [place] [facility] [address] [id number] [place] [address] September, [facility] [place] [facility] [address] [id number] [place] [address] September, [facility] [place] [facility] [address] [id number] [place] [address] September, [facility] [place] [facility] [address] [id number] [place] [address] September, [facility] [place] [facility] [address] [id number] [place] [address] September, [facility] [address] [id number] [place] [address] September, [facility] [address] [id number] [place] [address] September, [facility] [address] [id number] [place] [address] September, [facility] [address] [id number] [place] [address] September, [facility] [address] [id number] [place] [address] September, [facility] [address] [id number] [place] [address] September, [facility] [address] [id number] [place] [address] September, [facility] [address] [id number] [place] [address] Aug, [facility] [address] [id number] [place] [address] Aug, [facility] [address] [id number] [place] [address] Aug, [facility] [address] [id number] [place] [address] Aug, [facility] [address] [id number] [place] [address] Aug, [facility] [place] [facility] [address] [id number] [place] [address] Aug, [facility] [address] [id number] [place] [address] Jul, [facility] [address] [id number] [place] [address] Jul, [facility] [place] [facility] [address] [id number] [place] [address] Jul, [facility] [place] [facility] [address] [id number] [place] [address] Jul, [facility] [place] [facility] [address] [id number] [place] [address] Jun, [facility] [place] [facility] [address] [id number] [place] [address] Jun, [facility] [place] [facility] [address] [id number] [place] [address] 1339 Jun, [facility] [place] [facility] [address] [id number] [place] [address] Jun, [facility] [place] [facility] [address] [id number] [place] [address] 9[address] Mar, [facility] [place] [facility] [address] [id number] [place] [address] 14 Mar, 2013 [facility] [place] [facility] [address] [id number] [place] [address] 74[address] Mar, [facility] [place] [facility] [address] [id number] [place] [address]- 0977 Mar, [facility] [place] [facility] [address] [id number] [place] [address] Feb, [facility] [place] [facility] [address] [id number], [place] [address] Feb, [facility] [place] [facility] [address] [id number] [place] [address]- 3[address] Feb, [facility] [place] [facility] [address] [id number], [place] [address] Jan, [facility] [place] [facility] [address] [id number] [place] [address]- [address] Jan, [facility] [place] [facility] [address] [id number] [place] [address] 9079 Jan, [facility] [place] [facility] [address] [id number] [place] [address] 97[address] Jan, [facility] [place] [facility] [address] [id number] [place] [address]- [address]4 Dec, [facility] [place] [facility] [address] [id number] [place] [address]- 4414 Dec, [facility] [place] [facility] [address] [id number] [place] [address] 69[address] Dec, [facility] [place] [facility] [address] [id number] [place] [address]- 9[address] Dec, [facility] [place] [facility] [address] [id number] [place] [address]- 4[address] Nov, [facility] [place] [facility] [address] [id number] [place] [address]- 3410 Nov, [facility] [place] [facility] [address] [id number] [place] [address]- 57[address] Nov, [facility] [place] [facility] [address] [id number] [place] [address]- 2682 Nov, [facility] [place] [facility] [address] [id number] [place] [address] Nov, [facility] [place] [facility] [address] [id number] [place] [address]- 5[address] Nov, [facility] [place] [facility] [address] [id number] [place] [address]- 8072 Oct, [facility] [place] [facility] [address] [id number] [place] [address]- 2426 Oct, [facility] [place] [facility] [address] [id number] [place] [address]- 1758 Oct, [facility] [place] [facility] [address] [id number] [place] [address]- 0[address] Oct, [facility] [place] [facility] [address] [id number] [place] [address]- 6[address] 17 Oct, 2012 [facility] [place] [facility] [address] [id number] [place] [address]- 7874 16 Oct, 2012 [facility] [place] [facility] [address] [id number] [place] [address] 14 Oct, 2012 [facility] [place] [facility] [address] [id number] [place] [address]- 7149 13 Oct, 2012 [facility] [place] [facility] [address] [id number] [place] [address] 6[address] Oct, [facility] [place] [facility] [address] [id number] [place] [address]- 0[address] Oct, [facility] [place] [facility] [address] [id number] [place] [address] 68[address] September, [facility] [place] [facility] [address] [id number] [place] [address]- 7981 September, [facility] [place] [facility] [address] [id number] [place] [address] 2792 September, [facility] [place] [facility] [address] [id number] [place] [address] 6657 Aug, [facility] [place] [facility] [address] [id number] [place] [address] 0833 Aug, [facility] [place] [facility] [address] [id number] [place] [address]- 7057 Aug, [facility] [place] [facility] [address] [id number] [place] [address] Aug, [facility] [place] [facility] [address] [id number] [place] [address] 270[address] Jul, [facility] [place] [facility] [address] [id number] [place] [address]- 65[address] Jul, [facility] [place] [facility] [address] [id number] [place] [address]- 4[address] Jul, [facility] [address] [id number] [place] [address]- 9379 Jul, [facility] [place] [facility] [address] [id number] [place] [address]- 7493 Jul, [facility] [place] [facility] [address] [id number] [place] [address]- 1782 Jul, [facility] [place] [facility] [address] [id number] [place] [address]- 8936 May, [facility] [address] [id number] [place] [address]- 2276 May, [facility] [address] [id number] [place] [address]- 54[address] May, [facility] [address] [id number] [place] [address]- 0119 May, [facility] [place] [facility] [address] [id number] [place] [address]- 4786 May, [facility] [address] [id number] [place] [address]- 0954 May, [facility] [place] [facility] [address] [id number] [place] [address]- 6481 May, [facility] [address] [id number] [place] [address]- 3956 May, [facility] [place] [facility] [address] [id number], [place] [address] May, [facility] [place] [facility] [address] [id number] [place] [address]- 5645 May, [facility] [place] [facility] [address] [id number] [place] [address]- 7688 16 May, 2012 [facility] [place] [facility] [address] [id number] [place] [address]- 0097 Apr, [facility] [place] [facility] [address] [id number] [place] [address]- 5377 Apr, [facility] [address] [id number] [place] [address]- 2256 Apr, [facility] [place] [facility] [address] [id number] [place] [address]- 0630 Apr, [facility] [address] [id number] [place] [address]- 8460 Apr, [facility] [place] [facility] [address] [id number] [place] [address]- 3402 Apr, [facility] [place] [facility] [address] [id number] [place] [address]- 9683 Mar, [facility] [place] [facility] [address] [id number] [place] [address]- 5184 Mar, [facility] [place] [facility] [address] [id number] [place] [address]- 9010 Mar, [facility] [place] [facility] [address] [id number] [place] [address]- 5857 Mar, [facility] [place] [facility] [address] [id number] [place] [address]- 0988 Mar, [facility] [place] [facility] [address] [facility] [id number] [place] [address]- 6844 Mar, [facility] [place] [facility] [address] [id number] [place] [address]- 9734 Mar, [facility] [place] [facility] [address] [id number] [place] [address]- 1119 05 Mar, 2012 [facility] [place] [facility] [address] [id number] [place] [address]- 6391 Feb, [facility] [place] [facility] [address] [id number] [place] [address]- 1991 Feb, [facility] [place] [facility] [address] [id number] [place] [address]- 0019 16 Feb, 2012 [facility] [place] [facility] [address] [id number] [place] [address]- 8008 15 Feb, 2012 [facility] [place] [facility] [address] [id number] [place] [address]- 1214 15 Feb, 2012 [facility] [place] [facility] [address] [id number] [place] [address]- 3935 13 Feb, 2012 [facility] [place] [facility] [address] [id number] [place] [address]- 2757 12 Feb, 2012 [facility] [place] [facility] [address] [id number] [place] [address]- 1873 12 Feb, 2012 [facility] [place] [facility] [address] [id number] [place] [address]- 9140 Feb, [facility] [place] [facility] [address] [id number] [place] [address]- 6745 Feb, [facility] [place] [facility] [address] [id number], [place] [address]- 8865 Feb, [facility] [place] [facility] [address] [id number] [place] [address]- 9739 Feb, [facility] [place] [facility] [address] [id number], [place] [address]- 4241 Feb, [facility] [place] [facility] [address] [id number], [place] [address]- 3037 Feb, [facility] [place] [facility] [address] [id number], [place] [address]- 1131 Feb, [facility] [place] [facility] [address] [id number], [place] [address]- 8669 Feb, [facility] [place] [facility] [address] [id number], [place] [address]- 8302 09 Feb, 2012 [facility] [place] [facility] [address] [id number], [place] [address]- 5386 04 Feb, 2012 [facility] [place] [facility] [address] [id number], [place] [address]- 8665 19 Jan, 2012 [facility] [place] [facility] [address] [id number] [place] [address]- 0746 13 Jan, 2012 [facility] [place] [facility] [address] [id number] [place] [address]- 6326 11 Jan, 2012 [facility] [place] [facility] [address] [id number] [place] [address]- 0796 10 Jan, 2012 [facility] [place] [facility] [address] [id number] [place] [address]- 7864 05 Jan, 2012 [facility] [place] [facility] [address] [id number] [place] [address]- 3133 Dec, [facility] [place] [facility] [address] [id number] [place] [address]- 0433 Dec, [facility] [place] [facility] [address] [id number] [place] [address]- 5551 Dec, [facility] [place] [facility] [address] [id number] [place] [address]- 0295 Dec, [facility] [place] [facility] [address] [id number] [place] [address]- 6557 Dec, [facility] [place] [facility] [address] [id number] [place] [address]- 8788 Dec, [facility] [place] [facility] [address] [id number] [place] [address]- 6955 Nov, [facility] [place] [facility] [address] [id number] [place] [address]- 2711 Nov, [facility] [place] [facility] [address] [id number] [place] [address]- 1554 Nov, [facility] [place] [facility] [address] [id number] [place] [address]- 9511 Nov, [facility] [place] [facility] [address] [id number] [place] [address]- 0990 Nov, [facility] [place] [facility] [address] [id number] [place] [address]- 8879 Oct, [facility] [place] [facility] [address] [id number] [place] [address]- 0476 Oct, [facility] [place] [facility] [address] [id number] [place] [address]- 5375 Oct, [facility] [place] [facility] [address] [id number] [place] [address]- 3094 September, [facility] [place] [facility] [address] [id number] [place] [address]- 8784 September, [facility] [place] [facility] [address] [id number] [place] [address]- 7436 September, [facility] [place] [facility] [address] [id number] [place] [address]- 4227 September, [facility] [place] [facility] [address] [id number] [place] [address]- 5836 September, [facility] [address] [id number] [place] [address]- 9361 September, [facility] [place] [facility] [address] [id number] [place] [address]- 9597 Aug, [facility] [place] [facility] [address] [id number] [place] [address]- 7114 Aug, [facility] [place] [facility] [address] [id number] [place] [address]- 1779 Aug, [facility] [place] [facility] [address] [id number] [place] [address]- 2983 Jun, [facility] [place] [facility] [address] [id number] [place] [address]- 2280 Jun, [facility] [place] [facility] [address] [id number] [place] [address]- 6072 Jun, [facility] [place] [facility] [address] [id number] [place] [address]- 7985 Jun, [facility] [address] [id number] [place] [address]- 8170 May, [facility] [place] [facility] [address] [id number] [place] [address]- 6319 May, [facility] [place] [facility] [address] [facility] [id number] [place] [address]- 3728 May, [facility] [place] [facility] [address] [id number] [place] [address]- 7954 May, [facility] [place] [facility] [address] [id number] [place] [address]- 6768 May, [facility] [place] [facility] [address] [id number] [place] [address]- 2510 Apr, [facility] [place] [facility] [address] [id number] [place] [address]- 0150 Apr, [facility] [place] [facility] [address] [id number] [place] [address]- 7232 Apr, [facility] [place] [facility] [address] [id number] [place] [address]- 3988 Apr, [facility] [place] [facility] [address] [id number] [place] [address]- 6389 Apr, [facility] [place] [facility] [address] [id number], [place] [address]- 9440 16 Apr, 2011 [facility] [place] [facility] [address] [id number], [place] [address]- 3737 16 Apr, 2011 [facility] [place] [facility] [address] [id number] [place] [address]- 6092 Mar, [facility] [place] [facility] [address] [id number] [place] [address]- 8031 Mar, [facility] [place] [facility] [address] [id number] [place] [address]- 5214 15 Mar, 2011 [facility] [place] [facility] [address] [id number] [place] [address]- 2993 26 Feb, 2011 [facility] [address] [id number] [place] [address]- 8904 24 Feb, 2011 [facility] [place] [facility] [address] [id number] [place] [address]- 2546 Feb, [facility] [address] [id number] [place] [address]- 7055 19 Feb, 2011 [facility] [place] [facility] [address] [id number] [place] [address]- 2548 18 Feb, 2011 [facility] [address] [id number] [place] [address], [place] [address]- 2710 17 Feb, 2011 [facility] [address] [id number] [place] [address]- 5991 13 Jan, 2011 [facility] [address] [id number] [place] [address]- 6398 Jan, [facility] [address] [id number] [place] [address]- 5377 September, [facility] [address] [id number] [place] [address]- 9491 Jun, [facility] [address] [id number] [place] [address]- 3733 Apr, [facility] [place] [facility] [address] [id number] [place] [address] 2546 Apr, [facility] [address] [id number] [place] [address] 2545 Apr, [facility] [place] [facility] [address] [id number] [place] [address] 2546 Apr, [facility] [place] [facility] [address] [id number] [place] [address] 2546 Apr, [facility] [place] [facility] [address] [id number] [place] [address]- 7984 Mar, [facility] [address] [id number], [place] [address]- 3919 Mar, [facility] [id number], [place] [address]- 6574 Mar, [facility] [id number] 1594 Mar, [facility] [id number], [place] [address]- 3832 Feb, [facility] [address] 2067 Jan, [facility] [address] [address]75 Mar, [facility] [address], [place] [address]- 7762 Jan, [facility] [address], [place] [address]- 0146 Oct, [facility] [address] [id number], [place] [address]- 8728 Apr, IMMUNIZATIONS No Known Immunizations SOCIAL HISTORY Never Assessed REASON FOR VISIT boils , Possible boils to inner thighs. -THEA Baxter PLAN OF CARE Activity Details Follow Up prn Reason: VITAL SIGNS Height 66 in 2017-04-17 Weight 245 lbs 2017-04-17 Temperature 98.4 degrees Fahrenheit 2017-04-17 Heart Rate 90 bpm 2017-04-17 Respiratory Rate 20 2017-04-17 BMI 39.54 kg/m2 2017-04-17 Blood pressure systolic 118 mmHg 2017-04-17 Blood pressure diastolic 70 mmHg 2017-04-17 MEDICATIONS Medication Instructions Dosage Frequency Start Date End Date Duration Status Fexofenadine HCl 180 MG Orally Once a day 1 tablet as needed 24h 11 Feb, 2017 Aug, 30 day(s) Not-Taking Sudafed 12 Hour 120 MG Orally every 12 hrs 1 tablet as needed 12h 18 Jan, 2017 Active HydrOXYzine HCl 50 MG Orally bid prn 1/2-1 tablet as needed 30 day (s) Not-Taking Promethazine-Codeine 6.25-10 MG/5ML Orally every 6 hrs 5 ml as needed 6h Not-Taking Dicyclomine HCl 10 mg Orally 4 times a day as needed 2 capsules Active Ibuprofen 800 MG Orally Three times a day 1 tablet 8h 30 Active Clindamycin HCl 300 MG Orally every 8 hrs 1 capsule 8h 05 Apr, 2017Apr 07 days Active Lisinopril 20 mg Orally Once a day 1 tablet 24h 30 day(s) Active Flexeril 10 mg Orally 2 times a day s needed 1 tablet Active Actos 30 MG Orally Once a day 1/2 tablet 24h 180 days Active Omeprazole 20 mg Orally Once a day 1 capsule 24h Active RESULTS No Results PROCEDURES No [...]
--- OUTSIDE RECORDS SUMMARY | 2018-03-22 22:08 | XMS REPORT ---
Author Author BRITANY BOSCH [facility] Address [address] [place] [address] Care Team Providers Care Registered Nurse Supervisor Name Role Phone BRITANY BOSCH Unavailable PROBLEMS Type Condition ICD9-CM Code [id number] Code Onset Dates Condition Status SNOMED Code Problem Folliculitis L73.9 Active 57081956 Problem High risk bisexual behavior Z72.53 Active 608315255 Problem Anxiety F41.9 Active 81305195 Problem Acute non-recurrent maxillary sinusitis J01.00 Active 94560916 Problem Other obesity due to excess calories E66.09 Active 495624635 Problem Plantar wart of right foot B07.0 Active 13447168 Problem Other chronic pain G89.29 Active 90373135 Problem Pain in right foot M79.671 Active 22514150068898142 Problem Pain in left foot M79.672 Active 239892210459940 Problem Heartburn R12 Active 43725615 Problem Irritable bowel syndrome without diarrhea K58.9 Active 04677028 Problem Bilateral low back pain without sciatica M54.5 Active 949344362 Problem Pre-diabetes R73.03 Active 495859768 Problem Essential hypertension I10 Active 70954473 Problem Long-term use of high-risk medication Z79.899 Active 380148114 Problem Bilateral low back pain, with sciatica presence unspecified M54.5 Active 690578053 Problem Impacted cerumen of right ear H61.21 Active 86178910 ALLERGIES Unknown Allergies SOCIAL HISTORY No smoking Hx information available PLAN OF CARE VITAL SIGNS MEDICATIONS Medication Instructions Dosage Frequency Start Date End Date Duration Status Flexeril 10 mg Orally 2 times a day s needed 1 tablet May, 14 days Active RESULTS No Results PROCEDURES No Known procedures IMMUNIZATIONS No Known Immunizations
--- OUTSIDE RECORDS SUMMARY | 2018-03-22 22:09 | XMS REPORT ---
Author Author TIFFANI CANO Organization [employer] Address Unknown Phone Unavailable Care Team Providers Care Data Assistant Name Role Phone TIFFANI CANO CP Unavailable Allergies No Known Allergies Problems Problem Type Condition Code Onset Dates Condition Status Problem Bilateral low back pain, with sciatica presence unspecified M54.5 Active Problem Upper respiratory infection J06.9 Active Problem Ingrown left big toenail L60.0 Active Problem Bilateral low back pain without sciatica M54.5 Active Problem Pain in left knee M25.562 Active Problem Heartburn R12 Active Problem Irritable bowel syndrome without diarrhea K58.9 Active Problem Yeast dermatitis B37.2 Active Problem Essential hypertension I10 Active Medications No Known Medications Results No Known Results Summary Purpose [employer] Submission
--- OUTSIDE RECORDS SUMMARY | 2018-03-22 22:09 | XMS REPORT | Continuity of Care Document ---
Author Author [facility] Organization [facility] Address Unknown Phone Unavailable Care Team Providers Care Mold Washer Name Role Phone NO, LOCAL PHYSICIAN PP Unavailable Insurance Providers Payer Name Policy Number Subscriber Name Relationship [facility] [place] [facility] [id number] Rebekah Rojas 01 Self / Same As Patient Advance Directives Directive Response Recorded Date Advance Directives N 12/16/12 8:17pm Organ Donor Y 12/16/12 8:17pm Problems No Known Problems or Medical conditions. Social History History Response Recorded Date/Time Alcohol Use Denies Use 12/16/12 8:17pm Recreational Drug Use N 12/16/12 8:17pm Allergies, Adverse Reactions, Alerts Allergen Type Severity Reaction Last Updated Penicillins Allergy Unknown 05/29/11 Medications Medication Dose Units Route Sig Qty Days Ondansetron Hcl (Zofran Oral Dissolve) 4 Mg SL Q4H 10 Ibuprofen (Motrin) 1 Each PO QID PRN 20 Hyoscyamine Sulfate (Levsin Sl) 0.125 Mg SL Q4H 10 Ciprofloxacin (Cipro) 1 Tab PO BID 7 Ibuprofen (Motrin) 800 Mg PO Q8HR PRN 30 Cyclobenzaprine HCl (Cyclobenzaprine Hcl) 1 Each PO BID Alprazolam (Xanax) 1 Tab PO TID PRN Nebivolol Hcl (Bystolic) 1 Each PO DAILY Prednisone 20 Mg PO DAILY 5 Dexlansoprazole (Dexilant) 60 Mg PO DAILY Immunizations Name Given Type Date of Influenza Vaccine 03/14/11 H Response Recorded Date/Time Status not known Unknown Results No Known Relevant Diagnostic Tests, Laboratory Data and/or Discharge Summary. Procedures Procedure Code Date REPAIR BLADDER DEFECT 53845 07/25/06 HYSTEROSCOPY ABLATION 46006 07/25/06 UPPER GI ENDOSCOPY BIOPSY 94138 05/29/11 COLONOSCOPY AND BIOPSY 09793 05/29/11 Encounters Encounter Location Date/Time Departed Emergency Room [facility] 09/23 8:08pm
--- OUTSIDE RECORDS SUMMARY | 2018-03-22 22:09 | XMS REPORT ---
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 classified [...] Start Date End Date Status Dosage Lisinopril-Hydrochlorothiazide NDC [address]-32 10-12.5 MG Orally Once a day in AM 1 tablet Gas-X [facility] [address]-26 80 mg Feb 23, 2014 not defined Alprazolam [facility] [address]-35 1 MG Orally 3 times a day PRN Must keep next appt September 22, 2014 1 tablet Flexeril [facility] [address]-48 10 MG Orally 2 times a day 1 tablet Dicyclomine HCl [facility] [address]-18 10 MG Orally 3 times a day 1 capsule MiraLax [facility] [address]-28 17 gram/dose November 10, 2013 take 17 g mixed with 8 oz. water or juice by Oral route 1 time per day PRN Omeprazole [facility] [address]-42 20 MG Orally Once a day Jul 03, 2014 1 capsule Tramadol HCl [facility] [address]-52 50 MG Orally every 6 hrs TAKE ONE TABLET Procedures Procedure Coding System Code Date Office Visit, Est Pt., Level 3 CPT-4 58399 Feb 17, 2015 Vital Signs Date/Time: Feb 17, 2015 Cardiac Monitoring Heart Rate 96 bpm Weight 245.9 lbs Height 66 in BMI 39.68 Index Blood Pressure Diastolic 64 mmHg Blood Pressure Systolic 90 mmHg Results No Known Results Summary Purpose eClinicalWorks Submission
--- OUTSIDE RECORDS SUMMARY | 2018-03-22 22:09 | XMS REPORT ---
Author Author BRITANY BOSCH Organization e[employer] Address Unknown Phone Unavailable Care Team Providers Care [employer] Name Role Phone BRITANY BOSCH CP Unavailable [...] Instructions Start Date End Date Status Dosage Promethazine-Codeine [facility] 2001 [address]-30 6.25-10 MG/5ML Orally every 6 hrs October 21, 2014 5 ml as needed Results No Known Results Summary Purpose eClinicalWorks Submission
--- OUTSIDE RECORDS SUMMARY | 2018-03-22 22:09 | XMS REPORT ---
Author Author BRITANY BOSCH Organization [employer] Address Unknown Phone Unavailable Care Team Providers Care Manager Zone Name Role Phone BRITANY BOSCH CP Unavailable [...]
--- OUTSIDE RECORDS SUMMARY | 2018-03-22 22:10 | XMS REPORT | Continuity of Care Document ---
Author Author [facility] Organization [facility] Address Unknown Phone Unavailable Care Team Providers Care Brim Stitcher Name Role Phone NO, LOCAL PHYSICIAN PP Unavailable Insurance Providers Payer Name Policy Number Subscriber Name Relationship [facility] [id number] Rebekah Rojas 01 Self / Same As [...] Recorded Date/Time Status not known Unknown Results Test Date Result Interp. Ref. Range Alanine Aminotransferase (ALT/SGPT) December 16, 2012 8:56pm 30 U/L N 30-65 Albumin December 16, 2012 8:56pm 3.7 G/DL N 3.4-5.0 Alkaline Phosphatase December 16, 2012 8:56pm 109 U/L N 50-136 Amylase Level December 16, 2012 8:56pm 42 U/L N 25-115 Aspartate Amino Transf (AST/SGOT) December 16, 2012 8:56pm 14 U/L L 15-37 BUN/Creatinine Ratio December 16, 2012 8:56pm 16 - Basophils # (Auto) December 16, 2012 8:56pm 0.0 10^3/uL N 0.0-0.1 Basophils (%) (Auto) December 16, 2012 8:56pm 0 % N 0-10 Blood Urea Nitrogen December 16, 2012 8:56pm 13 MG/DL N 7-18 C-Reactive Protein December 16, 2012 8:56pm 0.9 MG/DL N 0.2-0.9 Calcium Level December 16, 2012 8:56pm 8.5 MG/DL N 8.5-10.1 Carbon Dioxide Level December 16, 2012 8:56pm 28 MMOL/L N 21-32 Chlamydia DNA Probe July 09, 2006 4:50am Neg - Chlamydia/GC DNA Probe Source July 09, 2006 4:50am Cervix - Chloride Level December 16, 2012 8:56pm 100 MMOL/L L 101-110 Creatinine December 16, 2012 8:56pm 0.8 MG /DL N 0.6-1.3 Eosinophils # (Auto) December 16, 2012 8:56pm 0.1 10^3/uL N 0.0-0.3 Eosinophils (%) (Auto) December 16, 2012 8:56pm 0 % N 0-10 Glucose Level December 16, 2012 8:56pm 113 MG/DL H 74-106 Hematocrit December 16, 2012 8:56pm 45 % N 35-52 Hemoglobin December 16, 2012 8:56pm 15.7 G /DL N 11.5-16.0 Lipase December 16, 2012 8:56pm 150 U/L N 73-393 Lymphocytes # (Auto) December 16, 2012 8:56pm 1.9 X 10^3 N 1.0-4.0 Lymphocytes (%) (Auto) December 16, 2012 8:56pm 14 % N 12-44 Mean Corpuscular Hemoglobin December 16, 2012 8:56pm 31 PG N 25-34 Mean Corpuscular Hemoglobin Concent December 16, 2012 8:56pm 35 G/DL N 32-36 Mean Corpuscular Volume December 16, 2012 8:56pm 89 FL N 80-99 Mean Platelet Volume December 16, 2012 8:56pm 10.0 FL N 7.4-10.4 Monocytes # (Auto) December 16, 2012 8:56pm 0.8 X 10^3 N 0.0-1.0 Monocytes (%) (Auto) December 16, 2012 8:56pm 6 % N 0-12 Neisseria gonorrhoeae DNA Probe July 09, 2006 4:50am Neg - Neutrophils # (Auto) December 16, 2012 8:56pm 10.6 X 10^3 H 1.8-7.8 Neutrophils (%) (Auto) December 16, 2012 8:56pm 80 % H 42-75 Platelet Count December 16, 2012 8:56pm 285 10^3/uL N 130-400 Potassium Level December 16, 2012 8:56pm 3.6 MMOL/L N 3.6-5.0 Red Blood Count December 16, 2012 8:56pm 5.01 10^6/uL N 4.35-5.85 Red Cell Distribution Width December 16, 2012 8:56pm 12.5 % N 10.0-14.5 Sodium Level December 16, 2012 8:56pm 135 MMOL/L N 135-145 Total Bilirubin December 16, 2012 8:56pm 0.3 MG/DL N 0.0-1.0 Total Protein December 16, 2012 8:56pm 8.0 G/DL N 6.4-8.2 Urine Amorphous Sediment July 18, 2006 2:15pm Few kelin phosphate H - Urine Bacteria December 16, 2012 11:35pm LARGE /HPF H - Urine Bilirubin December 16, 2012 11:35pm NEGATIVE - Urine Casts December 16, 2012 11:35pm NONE /LPF - Urine Clarity December 16, 2012 11:35pm VERY CLOUDY H - Urine Color December 16, 2012 11:35pm YELLOW - Urine Crystals December 16, 2012 11:35pm NONE /LPF - Urine Culture Indicated December 16, 2012 11:35pm YES - Urine Glucose (UA) December 16, 2012 11:35pm NEGATIVE - Urine Ketones December 16, 2012 11:35pm NEGATIVE - Urine Leukocyte Esterase December 16, 2012 11:35pm 1+ H - Urine Mucus December 16, 2012 11:35pm LARGE /LPF H - Urine Nitrate July 18, 2006 2:15pm Negative - Urine Nitrite December 16, 2012 11:35pm POSITIVE H - Urine Test December 16, 2012 11:30pm NEGATIVE - Urine Protein December 16, 2012 11:35pm 1+ H - Urine RBC December 16, 2012 11:35pm 2-5 / HPF H - Urine Specific [place] December 16, 2012 11:35pm 1.015 L - Urine Squamous Epithelial Cells December 16, 2012 11:35pm 0-2 /HPF - Urine Urobilinogen December 16, 2012 11:35pm NORMAL MG/DL - Urine WBC December 16, 2012 11:35pm 10-25 /HPF H - Urine pH December 16, 2012 11:35pm 6 - White Blood Count December 16, 2012 8:56pm 13.4 10^3/uL H 4.3-11.0 Lab Scanned Report July 04, 2010 10:03am LAB Reports [id number] - Estimat Glomerular Filtration Rate December 16, 2012 8:56pm > 60 - Urine RBC (Auto) December 16, 2012 11:35pm 3+ H - Procedures Procedure Code Date REPAIR BLADDER DEFECT 46971 07/25/06 HYSTEROSCOPY ABLATION 45699 07/25/06 UPPER GI ENDOSCOPY BIOPSY 45716 05/29/11 COLONOSCOPY AND BIOPSY 86643 05/29/11 Genital Culture 07/09/06 Nasopharyngeal Culture 07/25/06 Urine Culture 12/16/12 Encounters Encounter Location Date/Time Departed Emergency Room [facility] 09/23 8:08pm
--- OUTSIDE RECORDS SUMMARY | 2018-03-22 22:10 | XMS REPORT | Continuity of Care Document ---
Author Author [facility] Organization [facility] Address Unknown Phone Unavailable Care Team Providers Care Product Developer Name Role Phone NO, LOCAL PHYSICIAN PP Unavailable Insurance Providers Payer Name Policy Number Subscriber Name Relationship [facility] [id number] Rebekah Rojas 01 Self / Same As Patient Advance Directives Directive Response Recorded Date Advance Directives N 12/06/12 10:51pm Problems No Known Problems or Medical conditions. Social History History Response Recorded Date/Time Alcohol Use Denies Use 12/06/12 10:51pm Recreational Drug Use N 12/06/12 10:51pm Allergies, Adverse Reactions, Alerts Allergen Type Severity Reaction Last Updated Penicillins Allergy Unknown 05/29/11 Medications Medication Dose Units Route Sig Qty Days Prednisone 20 Mg PO DAILY 5 Ibuprofen (Motrin) 800 Mg PO Q8HR PRN 30 Dexlansoprazole (Dexilant) 60 Mg PO DAILY Cyclobenzaprine HCl (Cyclobenzaprine Hcl) 1 Each PO BID Alprazolam (Xanax) 1 Tab PO TID PRN Nebivolol Hcl (Bystolic) 1 Each PO DAILY Immunizations Name Given Type Date of Influenza Vaccine 03/14/11 H Response Recorded Date/Time Status not known Unknown Results No Known Relevant Diagnostic Tests, Laboratory Data and/or Discharge Summary. Procedures Procedure Code Date REPAIR BLADDER DEFECT 22845 07/25/06 HYSTEROSCOPY ABLATION 73663 07/25/06 UPPER GI ENDOSCOPY BIOPSY 61098 05/29/11 COLONOSCOPY AND BIOPSY 71178 05/29/11 Encounters Encounter Location Date/Time Departed Emergency Room [facility] [facility] 10:43pm
--- OUTSIDE RECORDS SUMMARY | 2018-03-22 22:13 | XMS REPORT | Continuity of Care Document ---
Author Author [facility] Address Unknown Phone Unavailable Allergies Active Description Code Type Severity Reaction Onset Reported/Identified Relationship to Patient Clinical Status Yes Penicillins Drug Allergy N/A N/A 09/10/2008 Yes surgical tape OA N/A N/A 09/10/2008 Yes Penicillins Drug Allergy 09/10/2008 Yes surgical tape OA 09/10/2008 Yes Penicillins [id number] Drug Allergy Unknown N/A 05/29/2011 Medications There is no data. Problems Date Dx Coded Attending Type Code Diagnosis Diagnosed By 12/04/2007 IVET BARGER DO 780.52 insomnia 12/04/2007 IVET BARGER DO V58.69 taking female hormones - long-term tamoxifen use 12/04/2007 ARLENE LEMA APRN 780.52 insomnia 12/04/2007 ARLENE LEMA APRN V58.69 taking female hormones - long-term tamoxifen use 12/04/2007 780.52 insomnia 12/04/2007 V58.69 taking female hormones - long-term tamoxifen use 12/04/2007 ARLENE LEMA APRN 780.52 insomnia 12/04/2007 ARLENE LEMA APRN V58.69 taking female hormones - long-term tamoxifen use 12/04/2007 IVET BARGER DO 780.52 insomnia 12/04/2007 IVET BARGER DO V58.69 taking female hormones - long-term tamoxifen use 12/04/2007 NAY PALOMO APRN 780.52 insomnia 12/04/2007 NAY PALOMO APRN V58.69 taking female hormones - long-term tamoxifen use 12/04/2007 780.52 insomnia 12/04/2007 V58.69 taking female hormones - long-term tamoxifen use 12/04/2007 780.52 insomnia 12/04/2007 V58.69 taking female hormones - long-term tamoxifen use 12/04/2007 780.52 insomnia 12/04/2007 V58.69 taking female hormones - long-term tamoxifen use 12/04/2007 780.52 insomnia 12/04/2007 V58.69 taking female hormones - long-term tamoxifen use 12/04/2007 780.52 insomnia 12/04/2007 V58.69 taking female hormones - long-term tamoxifen use 12/04/2007 780.52 insomnia 12/04/2007 V58.69 taking female hormones - long-term tamoxifen use 12/04/2007 ARLENE LEMA APRN 780.52 insomnia 12/04/2007 ARLENE LEMA APRN V58.69 taking female hormones - long-term tamoxifen use 12/04/2007 ARLENE LEMA APRN 780.52 insomnia 12/04/2007 ARLENE LEMA APRN V58.69 taking female hormones - long-term tamoxifen use 12/04/2007 ARLENE LEMA APRN 780.52 insomnia 12/04/2007 ARLENE LEMA APRN V58.69 taking female hormones - long-term tamoxifen use 12/04/2007 ARLENE LEMA APRN 780.52 insomnia 12/04/2007 ARLENE LEMA APRN V58.69 taking female hormones - long-term tamoxifen use 12/04/2007 ARLENE LEMA APRN 780.52 insomnia 12/04/2007 ARLENE LEMA APRN V58.69 taking female hormones - long-term tamoxifen use 12/04/2007 MARC MADDOX APRN 780.52 insomnia 12/04/2007 MARC MADDOX APRN V58.69 taking female hormones - long-term tamoxifen use 12/04/2007 BRITANY BOSCH APRN 780.52 insomnia 12/04/2007 BRITANY BOSCH APRN L V58.69 taking female hormones - long-term tamoxifen use 12/04/2007 MARLENI BOSCH APRNA Nas 780.52 insomnia 12/04/2007 MARLENI BOSCH APRNA L V58.69 taking female hormones - long-term tamoxifen use 12/04/2007 ERICKA HULL DO 780.52 insomnia 12/04/2007 ERICKA HULL DO V58.69 taking female hormones - long-term tamoxifen use 12/04/2007 MADL SECURITIES COUNSELOR, BRITANY L 780.52 insomnia 12/04/2007 MADL SECURITIES COUNSELOR, BRITANY L V58.69 taking female hormones - long-term tamoxifen use 12/04/2007 780.52 insomnia 12/04/2007 V58.69 taking female hormones - long-term tamoxifen use 12/04/2007 [facility], ERICK R 780.52 insomnia 12/04/2007 [facility], ERICK R V58.69 taking female hormones - long-term tamoxifen use 12/04/2007 MADL SECURITIES COUNSELOR, BRITANY L 780.52 insomnia 12/04/2007 MADL SECURITIES COUNSELOR, BRITANY L V58.69 taking female hormones - long-term tamoxifen use 12/04/2007 ERICKA HULL DO 780.52 insomnia 12/04/2007 ERICKA HULL DO V58.69 taking female hormones - long-term tamoxifen use 12/04/2007 MADL SECURITIES COUNSELOR, BRITANY L 780.52 insomnia 12/04/2007 MADL SECURITIES COUNSELOR, BRITANY L V58.69 taking female hormones - long-term tamoxifen use 12/04/2007 MADL SECURITIES COUNSELOR, BRITANY L 780.52 insomnia 12/04/2007 MADL SECURITIES COUNSELOR, BRITANY L V58.69 taking female hormones - long-term tamoxifen use 12/04/2007 MADL SECURITIES COUNSELOR, BRITANY L 780.52 insomnia 12/04/2007 MADL SECURITIES COUNSELOR, BRITANY L V58.69 taking female hormones - long-term tamoxifen use 12/04/2007 TIFFANI ROSA 780.52 insomnia 12/04/2007 TIFFANI ROSA V58.69 taking female hormones - long-term tamoxifen use 12/04/2007 MADL SECURITIES COUNSELOR, BRITANY L 780.52 insomnia 12/04/2007 MADL SECURITIES COUNSELOR, BRITANY L V58.69 taking female hormones - long-term tamoxifen use 12/04/2007 MADL SECURITIES COUNSELOR, BRITANY L 780.52 insomnia 12/04/2007 MADL SECURITIES COUNSELOR, BRITANY L V58.69 taking female hormones - long-term tamoxifen use 04/30/2008 WERDER DO, IVET F 465.9 Upper Respiratory Infection 04/30/2008 IVET BARGER DO F 788.1 Pain During Urination (dysuria) 04/30/2008 ARLENE LEMA APRN D 465.9 Upper Respiratory Infection 04/30/2008 ARLENE LEMA APRN D 788.1 Pain During Urination (dysuria) 04/30/2008 465.9 Upper Respiratory Infection 04/30/2008 788.1 Pain During Urination (dysuria) 04/30/2008 ARLENE LEMA APRN D 465.9 Upper Respiratory Infection 04/30/2008 ARLENE LEMA APRN D 788.1 Pain During Urination (dysuria) 04/30/2008 IVET BARGER DO F 465.9 Upper Respiratory Infection 04/30/2008 IVET BARGER DO F 788.1 Pain During Urination (dysuria) 04/30/2008 NAY PALOMO APRN S 465.9 Upper Respiratory Infection 04/30/2008 NAY PALOMO APRN S 788.1 Pain During Urination (dysuria) 04/30/2008 465.9 Upper Respiratory Infection 04/30/2008 788.1 Pain During Urination (dysuria) 04/30/2008 465.9 Upper Respiratory Infection 04/30/2008 788.1 Pain During Urination (dysuria) 04/30/2008 465.9 Upper Respiratory Infection 04/30/2008 788.1 Pain During Urination (dysuria) 04/30/2008 465.9 Upper Respiratory Infection 04/30/2008 788.1 Pain During Urination (dysuria) 04/30/2008 465.9 Upper Respiratory Infection 04/30/2008 788.1 Pain During Urination (dysuria) 04/30/2008 465.9 Upper Respiratory Infection 04/30/2008 788.1 Pain During Urination (dysuria) 04/30/2008 ARLENE LEMA APRN D 465.9 Upper Respiratory Infection 04/30/2008 ARLENE LEMA APRN D 788.1 Pain During Urination (dysuria) 04/30/2008 ARLENE LEMA APRN D 465.9 Upper Respiratory Infection 04/30/2008 GARTON SECURITIES COUNSELOR, ARLENE D 788.1 Pain During Urination (dysuria) 04/30/2008 GARTON SECURITIES COUNSELOR, ARLENE D 465.9 Upper Respiratory Infection 04/30/2008 GARTON SECURITIES COUNSELOR, ARLENE D 788.1 Pain During Urination (dysuria) 04/30/2008 GARTON SECURITIES COUNSELOR, ARLENE D 465.9 Upper Respiratory Infection 04/30/2008 GARTON SECURITIES COUNSELOR, ARLENE D 788.1 Pain During Urination (dysuria) 04/30/2008 GARTON SECURITIES COUNSELOR, ARLENE D 465.9 Upper Respiratory Infection 04/30/2008 GARTON SECURITIES COUNSELOR, ARLENE D 788.1 Pain During Urination (dysuria) 04/30/2008 TAN SECURITIES COUNSELOR, MARC A 465.9 Upper Respiratory Infection 04/30/2008 TAN SECURITIES COUNSELOR, MARC A 788.1 Pain During Urination (dysuria) 04/30/2008 MADL SECURITIES COUNSELOR, BRITANY L 465.9 Upper Respiratory Infection 04/30/2008 MADL SECURITIES COUNSELOR, BRITANY L 788.1 Pain During Urination (dysuria) 04/30/2008 MADL SECURITIES COUNSELOR, BRITANY L 465.9 Upper Respiratory Infection 04/30/2008 MADL SECURITIES COUNSELOR, BRITANY L 788.1 Pain During Urination (dysuria) 04/30/2008 HULL DO, ERICKA K 465.9 Upper Respiratory Infection 04/30/2008 HULL DO, ERICKA K 788.1 Pain During Urination (dysuria) 04/30/2008 MADL SECURITIES COUNSELOR, BRITANY L 465.9 Upper Respiratory Infection 04/30/2008 MADL SECURITIES COUNSELOR, BRITANY L 788.1 Pain During Urination (dysuria) 04/30/2008 465.9 Upper Respiratory Infection 04/30/2008 788.1 Pain During Urination (dysuria) 04/30/2008 [facility], ERICK R 465.9 Upper Respiratory Infection 04/30/2008 [facility], ERICK R 788.1 Pain During Urination (dysuria) 04/30/2008 MADL SECURITIES COUNSELOR, BRITANY L 465.9 Upper Respiratory Infection 04/30/2008 MADL SECURITIES COUNSELOR, BRITANY L 788.1 Pain During Urination (dysuria) 04/30/2008 HULL DO, ERICKA K 465.9 Upper Respiratory Infection 04/30/2008 HULL DO, ERICKA K 788.1 Pain During Urination (dysuria) 04/30/2008 MADL SECURITIES COUNSELOR, BRITANY L 465.9 Upper Respiratory Infection 04/30/2008 MADL SECURITIES COUNSELOR, BRITANY L 788.1 Pain During Urination (dysuria) 04/30/2008 MADL SECURITIES COUNSELOR, BRITANY L 465.9 Upper Respiratory Infection 04/30/2008 MADL SECURITIES COUNSELOR, BRITANY L 788.1 Pain During Urination (dysuria) 04/30/2008 MADL SECURITIES COUNSELOR, BRITANY L 465.9 Upper Respiratory Infection 04/30/2008 MADL SECURITIES COUNSELOR, BRITANY L 788.1 Pain During Urination (dysuria) 04/30/2008 CAMILA ROSAISTIN M 465.9 Upper Respiratory Infection 04/30/2008 RACHAEL BAEZ, TIFFANI M 788.1 Pain During Urination (dysuria) 04/30/2008 MADL SECURITIES COUNSELOR, BRITANY L 465.9 Upper Respiratory Infection 04/30/2008 MADL SECURITIES COUNSELOR, BRITANY L 788.1 Pain During Urination (dysuria) 04/30/2008 MADL SECURITIES COUNSELOR, BRITANY L 465.9 Upper Respiratory Infection 04/30/2008 MADL SECURITIES COUNSELOR, BRITANY L 788.1 Pain During Urination (dysuria) 09/10/2008 IVET BARGER DO 278.01 Obesity Morbid 09/10/2008 ARLENE LEMA APRN 278.01 Obesity Morbid 09/10/2008 278.01 Obesity Morbid 09/10/2008 ARLENE LEMA APRN 278.01 Obesity Morbid 09/10/2008 IVET BARGER DO 278.01 Obesity Morbid 09/10/2008 NAY PALOMO APRN 278.01 Obesity Morbid 09/10/2008 278.01 Obesity Morbid 09/10/2008 278.01 Obesity Morbid 09/10/2008 278.01 Obesity Morbid 09/10/2008 278.01 Obesity Morbid 09/10/2008 278.01 Obesity Morbid 09/10/2008 278.01 Obesity Morbid 09/10/2008 ARLENE LEMA APRN 278.01 Obesity Morbid 09/10/2008 ARLENE LEMA APRN D 278.01 Obesity Morbid 09/10/2008 ARLENE LEMA APRN D 278.01 Obesity Morbid 09/10/2008 ARLENE LEMA APRN D 278.01 Obesity Morbid 09/10/2008 ARLENE LEMA APRN D 278.01 Obesity Morbid 09/10/2008 TAN ES MARC A 278.01 Obesity Morbid 09/10/2008 MADL SECURITIES COUNSELOR, BRITANY L 278.01 Obesity Morbid 09/10/2008 MADL SECURITIES COUNSELOR, BRITANY L 278.01 Obesity Morbid 09/10/2008 HULL DO, ERICKA K 278.01 Obesity Morbid 09/10/2008 MADL SECURITIES COUNSELOR, BRITANY L 278.01 Obesity Morbid 09/10/2008 278.01 Obesity Morbid 09/10/2008 [facility], ERICK R 278.01 Obesity Morbid 09/10/2008 MADL SECURITIES COUNSELOR, BRITANY L 278.01 Obesity Morbid 09/10/2008 HULL DO, ERICKA K 278.01 Obesity Morbid 09/10/2008 MADL SECURITIES COUNSELOR, BRITANY L 278.01 Obesity Morbid 09/10/2008 MADL SECURITIES COUNSELOR, BRITANY L 278.01 Obesity Morbid 09/10/2008 MADL SECURITIES COUNSELOR, BRITANY L 278.01 Obesity Morbid 09/10/2008 TIFFANI ROSA 278.01 Obesity Morbid 09/10/2008 MADL SECURITIES COUNSELOR, BRITANY L 278.01 Obesity Morbid 09/10/2008 MADL SECURITIES COUNSELOR, BRITANY L 278.01 Obesity Morbid 10/31/2008 IVET BARGER DO 723.5 Torticollis 10/31/2008 ARLENE LEMA APRN 723.5 Torticollis 10/31/2008 723.5 Torticollis 10/31/2008 ARLENE LEMA APRN 723.5 Torticollis 10/31/2008 IVET BARGER DO 723.5 Torticollis 10/31/2008 NAY PALOMO APRN 723.5 Torticollis 10/31/2008 723.5 Torticollis 10/31/2008 723.5 Torticollis 10/31/2008 723.5 Torticollis 10/31/2008 723.5 Torticollis 10/31/2008 723.5 Torticollis 10/31/2008 723.5 Torticollis 10/31/2008 ARLENE LEMA APRN D 723.5 Torticollis 10/31/2008 ARLENE LEMA APRN D 723.5 Torticollis 10/31/2008 PITA SECURITIES COUNSELORCRISTIAN WellsARLENE D 723.5 Torticollis 10/31/2008 PITA SECURITIES COUNSELORARLENE Wells D 723.5 Torticollis 10/31/2008 ARLENE LEMA APRN D 723.5 Torticollis 10/31/2008 TAN SUGGS MARC A 723.5 Torticollis 10/31/2008 MADL SECURITIES COUNSELOR, BRITANY L 723.5 Torticollis 10/31/2008 MADL SECURITIES COUNSELOR, BRITANY L 723.5 Torticollis 10/31/2008 HULL DO, ERICKA K 723.5 Torticollis 10/31/2008 MADL SECURITIES COUNSELOR, BRITANY L 723.5 Torticollis 10/31/2008 723.5 Torticollis 10/31/2008 [facility], ERICK R 723.5 Torticollis 10/31/2008 MADL SECURITIES COUNSELOR, BRITANY L 723.5 Torticollis 10/31/2008 HULL DO, ERICKA K 723.5 Torticollis 10/31/2008 MADL SECURITIES COUNSELOR, BRITANY L 723.5 Torticollis 10/31/2008 MADL SECURITIES COUNSELOR, BRITANY L 723.5 Torticollis 10/31/2008 MADL SECURITIES COUNSELOR, BRITANY L 723.5 Torticollis 10/31/2008 TIFFANI ROSA 723.5 Torticollis 10/31/2008 MADL SECURITIES COUNSELOR, BRITANY L 723.5 Torticollis 10/31/2008 MADL SECURITIES COUNSELOR, BRITANY L 723.5 Torticollis 01/26/2009 IVET BARGER DO F 707.9 Chronic Cutaneous Ulcer 01/26/2009 IVET BARGER DO F 709.9 Dermatology - Non-infectious 01/26/2009 ARLENE LEMA APRN 707.9 Chronic Cutaneous Ulcer 01/26/2009 ARLENE LEMA APRN 709.9 Dermatology - Non-infectious 01/26/2009 707.9 Chronic Cutaneous Ulcer 01/26/2009 709.9 Dermatology - Non-infectious 01/26/2009 ARLENE LEMA APRN 707.9 Chronic Cutaneous Ulcer 01/26/2009 ARLENE LEMA APRN 709.9 Dermatology - Non-infectious 01/26/2009 IVET BARGER DO F 707.9 Chronic Cutaneous Ulcer 01/26/2009 IVET BARGER DO F 709.9 Dermatology - Non-infectious 01/26/2009 NAY PALOMO APRN S 707.9 Chronic Cutaneous Ulcer 01/26/2009 NAY PALOMO APRN S 709.9 Dermatology - Non-infectious 01/26/2009 707.9 Chronic Cutaneous Ulcer 01/26/2009 709.9 Dermatology - Non-infectious 01/26/2009 707.9 Chronic Cutaneous Ulcer 01/26/2009 709.9 Dermatology - Non-infectious 01/26/2009 707.9 Chronic Cutaneous Ulcer 01/26/2009 709.9 Dermatology - Non-infectious 01/26/2009 707.9 Chronic Cutaneous Ulcer 01/26/2009 709.9 Dermatology - Non-infectious 01/26/2009 707.9 Chronic Cutaneous Ulcer 01/26/2009 709.9 Dermatology - Non-infectious 01/26/2009 707.9 Chronic Cutaneous Ulcer 01/26/2009 709.9 Dermatology - Non-infectious 01/26/2009 ARLENE LEMA APRN 707.9 Chronic Cutaneous Ulcer 01/26/2009 ARLENE LEMA APRN 709.9 Dermatology - Non-infectious 01/26/2009 ARLENE LEMA APRN 707.9 Chronic Cutaneous Ulcer 01/26/2009 ARLENE LEMA APRN 709.9 Dermatology - Non-infectious 01/26/2009 CRISTIAN LEMA APRNBETH D 707.9 Chronic Cutaneous Ulcer 01/26/2009 GARTON SECURITIES COUNSELORARLENE Wells D 709.9 Dermatology - Non-infectious 01/26/2009 GARTON SECURITIES COUNSELORARLENE D 707.9 Chronic Cutaneous Ulcer 01/26/2009 GARTON SECURITIES COUNSELORARLENE Wells D 709.9 Dermatology - Non-infectious 01/26/2009 RAINADES SECURITIES COUNSELORARLENE Wells D 707.9 Chronic Cutaneous Ulcer 01/26/2009 RAINATON SECURITIES COUNSELORARLENE D 709.9 Dermatology - Non-infectious 01/26/2009 TAN SECURITIES COUNSELOR, MARC A 707.9 Chronic Cutaneous Ulcer 01/26/2009 TAN SECURITIES COUNSELOR, MARC A 709.9 Dermatology - Non-infectious 01/26/2009 MADL SECURITIES COUNSELOR, BRITANY L 707.9 Chronic Cutaneous Ulcer 01/26/2009 MADL SECURITIES COUNSELOR, BRITANY L 709.9 Dermatology - Non-infectious 01/26/2009 MADL SECURITIES COUNSELOR, BRITANY L 707.9 Chronic Cutaneous Ulcer 01/26/2009 MADL SECURITIES COUNSELOR, BRITANY L 709.9 Dermatology - Non-infectious 01/26/2009 HULL DO ERICKA K 707.9 Chronic Cutaneous Ulcer 01/26/2009 HULL DO ERICKA K 709.9 Dermatology - Non-infectious 01/26/2009 MADL SECURITIES COUNSELOR, BRITANY L 707.9 Chronic Cutaneous Ulcer 01/26/2009 MADL SECURITIES COUNSELOR, BRITANY L 709.9 Dermatology - Non-infectious 01/26/2009 707.9 Chronic Cutaneous Ulcer 01/26/2009 709.9 Dermatology - Non-infectious 01/26/2009 [facility], ERICK R 707.9 Chronic Cutaneous Ulcer 01/26/2009 [facility], ERICK R 709.9 Dermatology - Non-infectious 01/26/2009 MADL SECURITIES COUNSELOR, BRITANY L 707.9 Chronic Cutaneous Ulcer 01/26/2009 MADL SECURITIES COUNSELOR, BRITANY L 709.9 Dermatology - Non-infectious 01/26/2009 HULL DO ERICKA K 707.9 Chronic Cutaneous Ulcer 01/26/2009 HULL DO ERICKA K 709.9 Dermatology - Non-infectious 01/26/2009 MADL SECURITIES COUNSELOR, BRITANY L 707.9 Chronic Cutaneous Ulcer 01/26/2009 MADL SECURITIES COUNSELOR, BRITANY L 709.9 Dermatology - Non-infectious 01/26/2009 MADL SECURITIES COUNSELOR, BRITANY L 707.9 Chronic Cutaneous Ulcer 01/26/2009 MADL SECURITIES COUNSELOR, BRITANY L 709.9 Dermatology - Non-infectious 01/26/2009 MADL SECURITIES COUNSELOR, BRITANY L 707.9 Chronic Cutaneous Ulcer 01/26/2009 MADL SECURITIES COUNSELOR, BRITANY L 709.9 Dermatology - Non-infectious 01/26/2009 RACHAEL WEATHERIZATION DIRECTOR, TIFFANI M 707.9 Chronic Cutaneous Ulcer 01/26/2009 RACHAEL WEATHERIZATION DIRECTOR, TIFFANI M 709.9 Dermatology - Non-infectious 01/26/2009 MADL SECURITIES COUNSELOR, BRITANY L 707.9 Chronic Cutaneous Ulcer 01/26/2009 MADL SECURITIES COUNSELOR, BRITANY L 709.9 Dermatology - Non-infectious 01/26/2009 MADL SECURITIES COUNSELOR, BRITANY L 707.9 Chronic Cutaneous Ulcer 01/26/2009 MADL SECURITIES COUNSELOR, BRITANY L 709.9 Dermatology - Non-infectious 01/06/2010 IVET BARGER DO 535.00 Acute Gastritis, Without Mention Of Hemorrhage 01/06/2010 IVET BARGER DO 719.46 Pain In Joint, Lower Leg 01/06/2010 ARLENE LEMA APRN 535.00 Acute Gastritis, Without Mention Of Hemorrhage 01/06/2010 ARLENE LEMA APRN 719.46 Pain In Joint, Lower Leg 01/06/2010 535.00 Acute Gastritis, Without Mention Of Hemorrhage 01/06/2010 719.46 Pain In Joint , Lower Leg 01/06/2010 ARLENE LEMA APRN 535.00 Acute Gastritis, Without Mention Of Hemorrhage 01/06/2010 ARLENE LEMA APRN 719.46 Pain In Joint, Lower Leg 01/06/2010 IVET BARGER DO 535.00 Acute Gastritis, Without Mention Of Hemorrhage 01/06/2010 IVET BARGER DO 719.46 Pain In Joint, Lower Leg 01/06/2010 STACIA SECURITIES COUNSELOR, NAY S 535.00 Acute Gastritis, Without Mention Of Hemorrhage 01/06/2010 NAY PALOMO APRN S 719.46 Pain In Joint, Lower Leg 01/06/2010 535.00 Acute Gastritis, Without Mention Of Hemorrhage 01/06/2010 719.46 Pain In Joint , Lower Leg 01/06/2010 535.00 Acute Gastritis, Without Mention Of Hemorrhage 01/06/2010 719.46 Pain In Joint , Lower Leg 01/06/2010 535.00 Acute Gastritis, Without Mention Of Hemorrhage 01/06/2010 719.46 Pain In Joint , Lower Leg 01/06/2010 535.00 Acute Gastritis, Without Mention Of Hemorrhage 01/06/2010 719.46 Pain In Joint , Lower Leg 01/06/2010 535.00 Acute Gastritis, Without Mention Of Hemorrhage 01/06/2010 719.46 Pain In Joint , Lower Leg 01/06/2010 535.00 Acute Gastritis, Without Mention Of Hemorrhage 01/06/2010 719.46 Pain In Joint , Lower Leg 01/06/2010 CRSITIAN LEMA APRNBETH D 535.00 Acute Gastritis, Without Mention Of Hemorrhage 01/06/2010 RAINATON SECURITIES COUNSELOR, ARLENE D 719.46 Pain In Joint, Lower Leg 01/06/2010 GARTON SECURITIES COUNSELOR, ARLENE D 535.00 Acute Gastritis, Without Mention Of Hemorrhage 01/06/2010 GARTON SECURITIES COUNSELOR ARLENE D 719.46 Pain In Joint, Lower Leg 01/06/2010 GARTON SECURITIES COUNSELOR, ARLENE D 535.00 Acute Gastritis, Without Mention Of Hemorrhage 01/06/2010 RAINATON SECURITIES COUNSELOR, ARLENE D 719.46 Pain In Joint, Lower Leg 01/06/2010 GARTON SECURITIES COUNSELOR ARLENE D 535.00 Acute Gastritis, Without Mention Of Hemorrhage 01/06/2010 RAINATON SECURITIES COUNSELOR ARLENE D 719.46 Pain In Joint, Lower Leg 01/06/2010 GARTON SECURITIES COUNSELOR ARLENE D 535.00 Acute Gastritis, Without Mention Of Hemorrhage 01/06/2010 GARTON SECURITIES COUNSELOR ARLENE D 719.46 Pain In Joint, Lower Leg 01/06/2010 TAN SECURITIES COUNSELOR, MARC A 535.00 Acute Gastritis, Without Mention Of Hemorrhage 01/06/2010 TAN SECURITIES COUNSELOR, MARC A 719.46 Pain In Joint, Lower Leg 01/06/2010 MADL SECURITIES COUNSELOR, BRITANY L 535.00 Acute Gastritis, Without Mention Of Hemorrhage 01/06/2010 MADL SECURITIES COUNSELOR, BRITANY L 719.46 Pain In Joint, Lower Leg 01/06/2010 MADL SECURITIES COUNSELOR, BRITANY L 535.00 Acute Gastritis, Without Mention Of Hemorrhage 01/06/2010 MADL SECURITIES COUNSELOR, BRITANY L 719.46 Pain In Joint, Lower Leg 01/06/2010 DELLA WALTERS ERICKA K 535.00 Acute Gastritis, Without Mention Of Hemorrhage 01/06/2010 HULL DO ERICKA K 719.46 Pain In Joint, Lower Leg 01/06/2010 MADL SECURITIES COUNSELOR, BRITANY L 535.00 Acute Gastritis, Without Mention Of Hemorrhage 01/06/2010 MADL SECURITIES COUNSELOR, BRITANY L 719.46 Pain In Joint, Lower Leg 01/06/2010 535.00 Acute Gastritis, Without Mention Of Hemorrhage 01/06/2010 719.46 Pain In Joint , Lower Leg 01/06/2010 [facility], ERICK R 535.00 Acute Gastritis, Without Mention Of Hemorrhage [facility]/06/[facility] 719.46 Pain In Joint, Lower Leg 01/06/2010 MADL SECURITIES COUNSELOR, BRITANY L 535.00 Acute Gastritis, Without Mention Of Hemorrhage 01/06/2010 MADL SECURITIES COUNSELOR, BRITANY L 719.46 Pain In Joint, Lower Leg 01/06/2010 ROCIO HULL DOA K 535.00 Acute Gastritis, Without Mention Of Hemorrhage 01/06/2010 ERICKA HULL DO K 719.46 Pain In Joint, Lower Leg 01/06/2010 MADL SECURITIES COUNSELOR, BRITANY L 535.00 Acute Gastritis, Without Mention Of Hemorrhage 01/06/2010 MADL SECURITIES COUNSELOR, BRITANY L 719.46 Pain In Joint, Lower Leg 01/06/2010 MADL SECURITIES COUNSELOR, BRITANY L 535.00 Acute Gastritis, Without Mention Of Hemorrhage 01/06/2010 MADL SECURITIES COUNSELOR, BRITANY L 719.46 Pain In Joint, Lower Leg 01/06/2010 MADL SECURITIES COUNSELOR, BRITANY L 535.00 Acute Gastritis, Without Mention Of Hemorrhage 01/06/2010 MADL SECURITIES COUNSELOR, BRITANY L 719.46 Pain In Joint, Lower Leg 01/06/2010 TIFFANI ROSA M 535.00 Acute Gastritis, Without Mention Of Hemorrhage 01/06/2010 TIFFANI ROSA M 719.46 Pain In Joint, Lower Leg 01/06/2010 MADL SECURITIES COUNSELOR, BRITANY L 535.00 Acute Gastritis, Without Mention Of Hemorrhage 01/06/2010 MADL SECURITIES COUNSELOR, BRITANY L 719.46 Pain In Joint, Lower Leg 01/06/2010 MADL SECURITIES COUNSELOR, BRITANY L 535.00 Acute Gastritis, Without Mention Of Hemorrhage 01/06/2010 MADL SECURITIES COUNSELOR, BRITANY L 719.46 Pain In Joint, Lower Leg 03/09/2010 IVET BARGER DO 388.70 Ear Ache 03/09/2010 ARLENE LEMA APRN D 388.70 Ear Ache 03/09/2010 388.70 Ear Ache 03/09/2010 ARLENE LEMA APRN 388.70 Ear Ache 03/09/2010 IVET BARGER DO 388.70 Ear Ache 03/09/2010 NAY PALOMO APRN 388.70 Ear Ache 03/09/2010 388.70 Ear Ache 03/09/2010 388.70 Ear Ache 03/09/2010 388.70 Ear Ache 03/09/2010 388.70 Ear Ache 03/09/2010 388.70 Ear Ache 03/09/2010 388.70 Ear Ache 03/09/2010 ARLENE LEMA APRN 388.70 Ear Ache 03/09/2010 ARLENE LEMA APRN D 388.70 Ear Ache 03/09/2010 ARLENE LEMA APRN D 388.70 Ear Ache 03/09/2010 ARLENE LEMA APRN D 388.70 Ear Ache 03/09/2010 ARLENE LEMA APRN D 388.70 Ear Ache 03/09/2010 MARC MADDOX APRN 388.70 Ear Ache 03/09/2010 MADL SECURITIES COUNSELOR, BRITANY L 388.70 Ear Ache 03/09/2010 MADL SECURITIES COUNSELOR, BRITANY L 388.70 Ear Ache 03/09/2010 HULL DO, ERICKA K 388.70 Ear Ache 03/09/2010 MAD[employer] SECURITIES COUNSELOR, BRITANY L 388.70 Ear Ache 03/09/2010 388.70 Ear Ache 03/09/2010 [facility], ERICK R 388.70 Ear Ache 03/09/2010 MADL SECURITIES COUNSELOR, BRITANY L 388.70 Ear Ache 03/09/2010 HULL DO, ERICKA K 388.70 Ear Ache 03/09/2010 MAD[employer] SECURITIES COUNSELOR, BRITANY L 388.70 Ear Ache 03/09/2010 MAD[employer] SECURITIES COUNSELOR, BRITANY L 388.70 Ear Ache 03/09/2010 M[employer] SECURITIES COUNSELOR, BRITANY L 388.70 Ear Ache 03/09/2010 TIFFANI ROSA 388.70 Ear Ache 03/09/2010 MAD[employer] SECURITIES COUNSELOR, BRITANY L 388.70 Ear Ache 03/09/2010 MADL SECURITIES COUNSELOR, BRITANY L 388.70 Ear Ache 03/18/2010 IVET BARGER DO 300.00 ANXIETY UNSPEC 03/18/2010 IVET BARGER DO 305.1 NONDEPENDENT TOBACCO USE DISORDER 03/18/2010 IVET BARGER DO 473.9 Sinusitis (chronic) 03/18/2010 IVET BARGER DO 724.5 BACK PAIN, GENERAL 03/18/2010 ARLENE LEMA APRN 300.00 ANXIETY UNSPEC 03/18/2010 ARLENE LEMA APRN 305.1 NONDEPENDENT TOBACCO USE DISORDER 03/18/2010 ARLENE LEMA APRN 473.9 Sinusitis (chronic) 03/18/2010 ARLENE LEMA APRN 724.5 BACK PAIN, GENERAL 03/18/2010 300.00 ANXIETY UNSPEC 03/18/2010 305.1 NONDEPENDENT TOBACCO USE DISORDER 03/18/2010 473.9 Sinusitis ( chronic) 03/18/2010 724.5 BACK PAIN, GENERAL 03/18/2010 ARLENE LEMA APRN 300.00 ANXIETY UNSPEC 03/18/2010 ARLENE LEMA APRN 305.1 NONDEPENDENT TOBACCO USE DISORDER 03/18/2010 ARLENE LEMA APRN 473.9 Sinusitis (chronic) 03/18/2010 ARLENE LEMA APRN 724.5 BACK PAIN, GENERAL 03/18/2010 CALVIN BARGER DOEN F 300.00 ANXIETY UNSPEC 03/18/2010 DENITA WALTERS IVET F 305.1 NONDEPENDENT TOBACCO USE DISORDER 03/18/2010 CALVIN BARGER DOEN F 473.9 Sinusitis (chronic) 03/18/2010 IVET BARGER DO F 724.5 BACK PAIN, GENERAL 03/18/2010 NAY PALOMO APRN S 300.00 ANXIETY UNSPEC 03/18/2010 NAY PALOMO APRN S 305.1 NONDEPENDENT TOBACCO USE DISORDER 03/18/2010 NAY PALOMO APRN S 473.9 Sinusitis (chronic) 03/18/2010 NAY PALOMO APRN S 724.5 BACK PAIN, GENERAL 03/18/2010 300.00 ANXIETY UNSPEC 03/18/2010 305.1 NONDEPENDENT TOBACCO USE DISORDER 03/18/2010 473.9 Sinusitis ( chronic) 03/18/2010 724.5 BACK PAIN, GENERAL 03/18/2010 300.00 ANXIETY UNSPEC 03/18/2010 305.1 NONDEPENDENT TOBACCO USE DISORDER 03/18/2010 473.9 Sinusitis ( chronic) 03/18/2010 724.5 BACK PAIN, GENERAL 03/18/2010 300.00 ANXIETY UNSPEC 03/18/2010 305.1 NONDEPENDENT TOBACCO USE DISORDER 03/18/2010 473.9 Sinusitis ( chronic) 03/18/2010 724.5 BACK PAIN, GENERAL 03/18/2010 300.00 ANXIETY UNSPEC 03/18/2010 305.1 NONDEPENDENT TOBACCO USE DISORDER 03/18/2010 473.9 Sinusitis ( chronic) 03/18/2010 724.5 BACK PAIN, GENERAL 03/18/2010 300.00 ANXIETY UNSPEC 03/18/2010 305.1 NONDEPENDENT TOBACCO USE DISORDER 03/18/2010 473.9 Sinusitis ( chronic) 03/18/2010 724.5 BACK PAIN, GENERAL 03/18/2010 300.00 ANXIETY UNSPEC 03/18/2010 305.1 NONDEPENDENT TOBACCO USE DISORDER 03/18/2010 473.9 Sinusitis ( chronic) 03/18/2010 724.5 BACK PAIN, GENERAL 03/18/2010 ARLENE LEMA APRN 300.00 ANXIETY UNSPEC 03/18/2010 ARLENE LEMA APRN 305.1 NONDEPENDENT TOBACCO USE DISORDER 03/18/2010 ARLENE LEMA APRN 473.9 Sinusitis (chronic) 03/18/2010 ARLENE LEMA APRN 724.5 BACK PAIN, GENERAL 03/18/2010 ARLENE LEMA APRN 300.00 ANXIETY UNSPEC 03/18/2010 ARLENE LEMA APRN 305.1 NONDEPENDENT TOBACCO USE DISORDER 03/18/2010 ARLENE LEMA APRN 473.9 Sinusitis (chronic) 03/18/2010 ARLENE LEMA APRN 724.5 BACK PAIN, GENERAL 03/18/2010 ARLENE LEMA APRN 300.00 ANXIETY UNSPEC 03/18/2010 ARLENE LEMA APRN 305.1 NONDEPENDENT TOBACCO USE DISORDER 03/18/2010 ARLENE LEMA APRN 473.9 Sinusitis (chronic) 03/18/2010 ARLENE LEMA APRN 724.5 BACK PAIN, GENERAL 03/18/2010 ARLENE LEMA APRN 300.00 ANXIETY UNSPEC 03/18/2010 ARLENE LEMA APRN 305.1 NONDEPENDENT TOBACCO USE DISORDER 03/18/2010 ARLENE LEMA APRN 473.9 Sinusitis (chronic) 03/18/2010 ARLENE LEMA APRN 724.5 BACK PAIN, GENERAL 03/18/2010 ARLENE LEMA APRN 300.00 ANXIETY UNSPEC 03/18/2010 ARLENE LEMA APRN 305.1 NONDEPENDENT TOBACCO USE DISORDER 03/18/2010 ARLENE LEMA APRN 473.9 Sinusitis (chronic) 03/18/2010 ARLENE LEMA APRN 724.5 BACK PAIN, GENERAL 03/18/2010 JOHAN MADDOX APRNIDI A 300.00 ANXIETY UNSPEC 03/18/2010 TAN SUGGS MARC A 305.1 NONDEPENDENT TOBACCO USE DISORDER 03/18/2010 MARC MADDOX APRN A 473.9 Sinusitis (chronic) 03/18/2010 JOHAN MADDOX APRNIDI A 724.5 BACK PAIN, GENERAL 03/18/2010 MADL SECURITIES COUNSELOR, BRITANY L 300.00 ANXIETY UNSPEC 03/18/2010 MADL SECURITIES COUNSELOR, BRITANY L 305.1 NONDEPENDENT TOBACCO USE DISORDER 03/18/2010 MADL SECURITIES COUNSELOR, BRITANY L 473.9 Sinusitis (chronic) 03/18/2010 MADL SECURITIES COUNSELOR, BRITANY L 724.5 BACK PAIN, GENERAL 03/18/2010 MADL SECURITIES COUNSELOR, BRITANY L 300.00 ANXIETY UNSPEC 03/18/2010 MADL SECURITIES COUNSELOR, BRITANY L 305.1 NONDEPENDENT TOBACCO USE DISORDER 03/18/2010 MADL SECURITIES COUNSELOR, BRITANY L 473.9 Sinusitis (chronic) 03/18/2010 MADL SECURITIES COUNSELOR, BRITANY L 724.5 BACK PAIN, GENERAL 03/18/2010 HULL DO, ERICKA K 300.00 ANXIETY UNSPEC 03/18/2010 HULL DO, ERICKA K 305.1 NONDEPENDENT TOBACCO USE DISORDER 03/18/2010 HULL DO, ERICKA K 473.9 Sinusitis (chronic) 03/18/2010 HULL DO, ERICKA K 724.5 BACK PAIN, GENERAL 03/18/2010 MADL SECURITIES COUNSELOR, BRITANY L 300.00 ANXIETY UNSPEC 03/18/2010 MADL SECURITIES COUNSELOR, BRITANY L 305.1 NONDEPENDENT TOBACCO USE DISORDER 03/18/2010 MADL SECURITIES COUNSELOR, BRITANY L 473.9 Sinusitis (chronic) 03/18/2010 MADL SECURITIES COUNSELOR, BRITANY L 724.5 BACK PAIN, GENERAL 03/18/2010 300.00 ANXIETY UNSPEC 03/18/2010 305.1 NONDEPENDENT TOBACCO USE DISORDER 03/18/2010 473.9 Sinusitis ( chronic) 03/18/2010 724.5 BACK PAIN, GENERAL 03/18/2010 [facility], ERICK R 300.00 ANXIETY UNSPEC 03/18/2010 [facility], ERICK R 305.1 NONDEPENDENT TOBACCO USE DISORDER 03/18/2010 [facility], ERICK R 473.9 Sinusitis (chronic) 03/18/2010 [facility], ERICK R 724.5 BACK PAIN, GENERAL 03/18/2010 MADL SECURITIES COUNSELOR, BRITANY L 300.00 ANXIETY UNSPEC 03/18/2010 MADL SECURITIES COUNSELOR, BRITANY L 305.1 NONDEPENDENT TOBACCO USE DISORDER 03/18/2010 MADL SECURITIES COUNSELOR, BRITANY L 473.9 Sinusitis (chronic) 03/18/2010 MADL SECURITIES COUNSELOR, BRITANY L 724.5 BACK PAIN, GENERAL 03/18/2010 HULL DO, ERICKA K 300.00 ANXIETY UNSPEC 03/18/2010 HULL DO, ERICKA K 305.1 NONDEPENDENT TOBACCO USE DISORDER 03/18/2010 HULL DO, ERICKA K 473.9 Sinusitis (chronic) 03/18/2010 HULL DO, ERICKA K 724.5 BACK PAIN, GENERAL 03/18/2010 MADL SECURITIES COUNSELOR, BRITANY L 300.00 ANXIETY UNSPEC 03/18/2010 MADL SECURITIES COUNSELOR, BRITANY L 305.1 NONDEPENDENT TOBACCO USE DISORDER 03/18/2010 MADL SECURITIES COUNSELOR, BRITANY L 473.9 Sinusitis (chronic) 03/18/2010 MADL SECURITIES COUNSELOR, BRITANY L 724.5 BACK PAIN, GENERAL 03/18/2010 MADL SECURITIES COUNSELOR, BRITANY L 300.00 ANXIETY UNSPEC 03/18/2010 MADL SECURITIES COUNSELOR, BRITANY L 305.1 NONDEPENDENT TOBACCO USE DISORDER 03/18/2010 MADL SECURITIES COUNSELOR, BRITANY L 473.9 Sinusitis (chronic) 03/18/2010 MADL SECURITIES COUNSELOR, BRITANY L 724.5 BACK PAIN, GENERAL 03/18/2010 MADL SECURITIES COUNSELOR, BRITANY L 300.00 ANXIETY UNSPEC 03/18/2010 MADL SECURITIES COUNSELOR, BRITANY L 305.1 NONDEPENDENT TOBACCO USE DISORDER 03/18/2010 MADL SECURITIES COUNSELOR, BRITANY L 473.9 Sinusitis (chronic) 03/18/2010 MADL SECURITIES COUNSELOR, BRITANY L 724.5 BACK PAIN, GENERAL 03/18/2010 TIFFANI ROSA M 300.00 ANXIETY UNSPEC 03/18/2010 TIFFANI ROSA M 305.1 NONDEPENDENT TOBACCO USE DISORDER 03/18/2010 TIFFANI ROSA M 473.9 Sinusitis (chronic) 03/18/2010 TIFFANI ROSA M 724.5 BACK PAIN, GENERAL 03/18/2010 MADL SECURITIES COUNSELOR, BRITANY L 300.00 ANXIETY UNSPEC 03/18/2010 MADL SECURITIES COUNSELOR, BRITANY L 305.1 NONDEPENDENT TOBACCO USE DISORDER 03/18/2010 MADL SECURITIES COUNSELOR, BRITANY L 473.9 Sinusitis (chronic) 03/18/2010 MADL SECURITIES COUNSELOR, BRITANY L 724.5 BACK PAIN, GENERAL 03/18/2010 MADL SECURITIES COUNSELOR, BRITANY L 300.00 ANXIETY UNSPEC 03/18/2010 MADL SECURITIES COUNSELOR, BRITANY L 305.1 NONDEPENDENT TOBACCO USE DISORDER 03/18/2010 MADL SECURITIES COUNSELOR, BRITANY L 473.9 Sinusitis (chronic) 03/18/2010 MADL SECURITIES COUNSELOR, BRITANY L 724.5 BACK PAIN, GENERAL 05/02/2010 IVET BARGER DO F 461.9 Sinusitis Acute 05/02/2010 ARLENE LEMA APRN 461.9 Sinusitis Acute 05/02/2010 461.9 Sinusitis Acute 05/02/2010 ARLENE LEMA APRN 461.9 Sinusitis Acute 05/02/2010 IVET BARGER DO F 461.9 Sinusitis Acute 05/02/2010 NAY PALOMO APRN 461.9 Sinusitis Acute 05/02/2010 461.9 Sinusitis Acute 05/02/2010 461.9 Sinusitis Acute 05/02/2010 461.9 Sinusitis Acute 05/02/2010 461.9 Sinusitis Acute 05/02/2010 461.9 Sinusitis Acute 05/02/2010 461.9 Sinusitis Acute 05/02/2010 ARLENE LEMA APRN 461.9 Sinusitis Acute 05/02/2010 ARLENE LEMA APRN 461.9 Sinusitis Acute 05/02/2010 ARLENE LEMA APRN 461.9 Sinusitis Acute 05/02/2010 ARLENE LEMA APRN 461.9 Sinusitis Acute 05/02/2010 ARLENE LEMA APRN 461.9 Sinusitis Acute 05/02/2010 TAN SECURITIES COUNSELOR, MARC A 461.9 Sinusitis Acute 05/02/2010 MADL SECURITIES COUNSELOR, BRITANY L 461.9 Sinusitis Acute 05/02/2010 MADL SECURITIES COUNSELOR, BRITANY L 461.9 Sinusitis Acute 05/02/2010 HULL DO, ERICKA K 461.9 Sinusitis Acute 05/02/2010 MADL SECURITIES COUNSELOR, BRITANY L 461.9 Sinusitis Acute 05/02/2010 461.9 Sinusitis Acute 05/02/2010 [facility], ERICK R 461.9 Sinusitis Acute 05/02/2010 MADL SECURITIES COUNSELOR, BRITANY L 461.9 Sinusitis Acute 05/02/2010 HULL DO, ERICKA K 461.9 Sinusitis Acute 05/02/2010 MADL SECURITIES COUNSELOR, BRITANY L 461.9 Sinusitis Acute 05/02/2010 MADL SECURITIES COUNSELOR, BRITANY L 461.9 Sinusitis Acute 05/02/2010 MADL SECURITIES COUNSELOR, BRITANY L 461.9 Sinusitis Acute 05/02/2010 TIFFANI ROSA M 461.9 Sinusitis Acute 05/02/2010 MADL SECURITIES COUNSELOR, BRITANY L 461.9 Sinusitis Acute 05/02/2010 MADL SECURITIES COUNSELOR, BRITANY L 461.9 Sinusitis Acute 06/30/2010 IVET BARGER DO 724.2 LUMBAGO 06/30/2010 IVET BARGER DO 729.5 Pain In Limb 06/30/2010 ARLENE LEMA APRN 724.2 LUMBAGO 06/30/2010 ARLENE LEMA APRN 729.5 Pain In Limb 06/30/2010 724.2 LUMBAGO 06/30/2010 729.5 Pain In Limb 06/30/2010 ARLENE LEMA APRN 724.2 LUMBAGO 06/30/2010 ARLENE LEMA APRN 729.5 Pain In Limb 06/30/2010 IVET BARGER DO 724.2 LUMBAGO 06/30/2010 IVET BARGER DO 729.5 Pain In Limb 06/30/2010 NAY PALOMO APRN 724.2 LUMBAGO 06/30/2010 NAY PALOMO APRN 729.5 Pain In Limb 06/30/2010 724.2 LUMBAGO 06/30/2010 729.5 Pain In Limb 06/30/2010 724.2 LUMBAGO 06/30/2010 729.5 Pain In Limb 06/30/2010 724.2 LUMBAGO 06/30/2010 729.5 Pain In Limb 06/30/2010 724.2 LUMBAGO 06/30/2010 729.5 Pain In Limb 06/30/2010 724.2 LUMBAGO 06/30/2010 729.5 Pain In Limb 06/30/2010 724.2 LUMBAGO 06/30/2010 729.5 Pain In Limb 06/30/2010 ARLENE LEMA APRN 724.2 LUMBAGO 06/30/2010 ARLENE LEMA APRN 729.5 Pain In Limb 06/30/2010 ARLENE LEMA APRN 724.2 LUMBAGO 06/30/2010 ARLENE LEMA APRN D 729.5 Pain In Limb 06/30/2010 ARLENE LEMA APRN D 724.2 LUMBAGO 06/30/2010 ARLEEN LEMA APRN 729.5 Pain In Limb 06/30/2010 ARLENE LEMA APRN D 724.2 LUMBAGO 06/30/2010 ARLENE LEMA APRN D 729.5 Pain In Limb 06/30/2010 ARLENE LEAM APRN D 724.2 LUMBAGO 06/30/2010 ARLENE LEMA APRN D 729.5 Pain In Limb 06/30/2010 MARC MADDOX APRN A 724.2 LUMBAGO 06/30/2010 MARC MADDOX APRN A 729.5 Pain In Limb 06/30/2010 DANITZA SUGGS BRITANY L 724.2 LUMBAGO 06/30/2010 MADNas SUGGS BRITANY L 729.5 Pain In Limb 06/30/2010 MADL ES BRITANY L 724.2 LUMBAGO 06/30/2010 MADL SECURITIES COUNSELOR, BRITANY L 729.5 Pain In Limb 06/30/2010 HULL DO, ERICKA K 724.2 LUMBAGO 06/30/2010 HULL DO, ERICKA K 729.5 Pain In Limb 06/30/2010 MADL SECURITIES COUNSELOR, BRITANY L 724.2 LUMBAGO 06/30/2010 MADL SECURITIES COUNSELOR, BRITANY L 729.5 Pain In Limb 06/30/2010 724.2 LUMBAGO 06/30/2010 729.5 Pain In Limb 06/30/2010 YAHAIRA [facility], ERICK R 724.2 LUMBAGO 06/30/2010 YAHAIRA LSCS, ERICK R 729.5 Pain In Limb 06/30/2010 MADL SECURITIES COUNSELOR, BRITANY L 724.2 LUMBAGO 06/30/2010 MADL SECURITIES COUNSELOR, BRITANY L 729.5 Pain In Limb 06/30/2010 HULL DO, ERICKA K 724.2 LUMBAGO 06/30/2010 HULL DO, ERICKA K 729.5 Pain In Limb 06/30/2010 MADL SECURITIES COUNSELOR, BRITANY L 724.2 LUMBAGO 06/30/2010 MADL SECURITIES COUNSELOR, BRITANY L 729.5 Pain In Limb 06/30/2010 MADL SECURITIES COUNSELOR, BRITANY L 724.2 LUMBAGO 06/30/2010 MADL SECURITIES COUNSELOR, BRITANY L 729.5 Pain In Limb 06/30/2010 MADL SECURITIES COUNSELOR, BRITANY L 724.2 LUMBAGO 06/30/2010 MADL SECURITIES COUNSELOR, BRITANY L 729.5 Pain In Limb 06/30/2010 TIFFANI ROSA M 724.2 LUMBAGO 06/30/2010 TIFFANI ROSA M 729.5 Pain In Limb 06/30/2010 MADL SECURITIES COUNSELOR, BRITANY L 724.2 LUMBAGO 06/30/2010 MADL SECURITIES COUNSELOR, BRITANY L 729.5 Pain In Limb 06/30/2010 MADL SECURITIES COUNSELOR, BRITANY L 724.2 LUMBAGO 06/30/2010 MADL SECURITIES COUNSELOR, BRITANY L 729.5 Pain In Limb 07/20/2010 IVET BARGER DO 728.85 Spasm Of Muscle 07/20/2010 ARLENE LEMA APRN 728.85 Spasm Of Muscle 07/20/2010 728.85 Spasm Of Muscle 07/20/2010 ARLENE LEMA APRN 728.85 Spasm Of Muscle 07/20/2010 IVET BARGER DO 728.85 Spasm Of Muscle 07/20/2010 NAY PALOMO APRN 728.85 Spasm Of Muscle 07/20/2010 728.85 Spasm Of Muscle 07/20/2010 728.85 Spasm Of Muscle 07/20/2010 728.85 Spasm Of Muscle 07/20/2010 728.85 Spasm Of Muscle 07/20/2010 728.85 Spasm Of Muscle 07/20/2010 728.85 Spasm Of Muscle 07/20/2010 ARLENE LEMA APRN 728.85 Spasm Of Muscle 07/20/2010 ARLENE LEMA APRN 728.85 Spasm Of Muscle 07/20/2010 ARLENE LEMA APRN 728.85 Spasm Of Muscle 07/20/2010 ARLENE LEMA APRN 728.85 Spasm Of Muscle 07/20/2010 ARLENE LEMA APRN 728.85 Spasm Of Muscle 07/20/2010 MARC MADDOX APRN 728.85 Spasm Of Muscle 07/20/2010 DANITZA SUGGS BRITANY L 728.85 Spasm Of Muscle 07/20/2010 RENÉL ES BRITANY L 728.85 Spasm Of Muscle 07/20/2010 ERICKA HULL DO K 728.85 Spasm Of Muscle 07/20/2010 MADL SECURITIES COUNSELOR, BRITANY L 728.85 Spasm Of Muscle 07/20/2010 728.85 Spasm Of Muscle 07/20/2010 YAHAIRA ERICK PECK 728.85 Spasm Of Muscle 07/20/2010 MADL SECURITIES COUNSELOR, BRITANY L 728.85 Spasm Of Muscle 07/20/2010 ERICKA HULL DO K 728.85 Spasm Of Muscle 07/20/2010 MADL SECURITIES COUNSELOR, BRITANY L 728.85 Spasm Of Muscle 07/20/2010 MADL SECURITIES COUNSELOR, BRITANY L 728.85 Spasm Of Muscle 07/20/2010 MADL SECURITIES COUNSELOR, BRITANY L 728.85 Spasm Of Muscle 07/20/2010 TIFFANI ROSA 728.85 Spasm Of Muscle 07/20/2010 MADL SECURITIES COUNSELOR, BRITANY L 728.85 Spasm Of Muscle 07/20/2010 MADL SECURITIES COUNSELOR, BRITANY L 728.85 Spasm Of Muscle 11/15/2010 IVET BARGER DO F 110.1 Onychomycosis 11/15/2010 IVET BARGER DO F 703.0 Nail Ingrown 11/15/2010 ARLENE LEMA APRN 110.1 Onychomycosis 11/15/2010 ARLENE LEMA APRN 703.0 Nail Ingrown 11/15/2010 110.1 Onychomycosis 11/15/2010 703.0 Nail Ingrown 11/15/2010 ARLENE LEMA APRN 110.1 Onychomycosis 11/15/2010 ARLENE LEMA APRN 703.0 Nail Ingrown 11/15/2010 IVET BARGER DO F 110.1 Onychomycosis 11/15/2010 IVET BARGER DO F 703.0 Nail Ingrown 11/15/2010 NAY PALOMO APRN S 110.1 Onychomycosis 11/15/2010 NAY PALOMO APRN S 703.0 Nail Ingrown 11/15/2010 110.1 Onychomycosis 11/15/2010 703.0 Nail Ingrown 11/15/2010 110.1 Onychomycosis 11/15/2010 703.0 Nail Ingrown 11/15/2010 110.1 Onychomycosis 11/15/2010 703.0 Nail Ingrown 11/15/2010 110.1 Onychomycosis 11/15/2010 703.0 Nail Ingrown 11/15/2010 110.1 Onychomycosis 11/15/2010 703.0 Nail Ingrown 11/15/2010 110.1 Onychomycosis 11/15/2010 703.0 Nail Ingrown 11/15/2010 ARLENE LEMA APRN 110.1 Onychomycosis 11/15/2010 G[employer] SECURITIES COUNSELOR, ARLENE D 703.0 Nail Ingrown 11/15/2010 [employer] SECURITIES COUNSELOR, ARLENE D 110.1 Onychomycosis 11/15/2010 GARTON SECURITIES COUNSELOR, ARLENE D 703.0 Nail Ingrown 11/15/2010 [facility] SECURITIES COUNSELOR, ARLENE D 110.1 Onychomycosis 11/15/2010 [facility] SECURITIES COUNSELOR, ARLENE D 703.0 Nail Ingrown 11/15/2010 [facility] SECURITIES COUNSELOR, ARLENE D 110.1 Onychomycosis 11/15/2010 [facility] SECURITIES COUNSELOR, ARLENE D 703.0 Nail Ingrown 11/15/2010 [facility] SECURITIES COUNSELOR, ARLENE D 110.1 Onychomycosis 11/15/2010 [facility] MARYVALEDES SECURITIES COUNSELOR, ARLENE D 703.0 Nail Ingrown 11/15/2010 TAN SECURITIES COUNSELOR, MARC A 110.1 Onychomycosis 11/15/2010 TAN SECURITIES COUNSELOR, MARC A 703.0 Nail Ingrown 11/15/2010 MADL SECURITIES COUNSELOR, BRITANY L 110.1 Onychomycosis 11/15/2010 MADL SECURITIES COUNSELOR, BRITANY L 703.0 Nail Ingrown 11/15/2010 MADL SECURITIES COUNSELOR, BRITANY L 110.1 Onychomycosis 11/15/2010 MADL SECURITIES COUNSELOR, BRITANY L 703.0 Nail Ingrown 11/15/2010 HULL DO, ERICKA K 110.1 Onychomycosis 11/15/2010 HULL DO, ERICKA K 703.0 Nail Ingrown 11/15/2010 MADL SECURITIES COUNSELOR, BRITANY L 110.1 Onychomycosis 11/15/2010 MADL SECURITIES COUNSELOR, BRITANY L 703.0 Nail Ingrown 11/15/2010 110.1 Onychomycosis 11/15/2010 703.0 Nail Ingrown 11/15/2010 [facility], ERICK R 110.1 Onychomycosis 11/15/2010 [facility], ERICK R 703.0 Nail Ingrown 11/15/2010 MADL SECURITIES COUNSELOR, BRITANY L 110.1 Onychomycosis 11/15/2010 MADL SECURITIES COUNSELOR, BRITANY L 703.0 Nail Ingrown 11/15/2010 HULL DO, ERICKA K 110.1 Onychomycosis 11/15/2010 HULL DO, ERICKA K 703.0 Nail Ingrown 11/15/2010 MADL SECURITIES COUNSELOR, BRITANY L 110.1 Onychomycosis 11/15/2010 MADL SECURITIES COUNSELOR, BRITANY L 703.0 Nail Ingrown 11/15/2010 MADL SECURITIES COUNSELOR, BRITANY L 110.1 Onychomycosis 11/15/2010 MADL SECURITIES COUNSELOR, BRITANY L 703.0 Nail Ingrown 11/15/2010 MADL SECURITIES COUNSELOR, BRITANY L 110.1 Onychomycosis 11/15/2010 MADL SECURITIES COUNSELOR, BRITANY L 703.0 Nail Ingrown 11/15/2010 [employer] DIRECT[employer], TIFFANI M 110.1 Onychomycosis 11/15/2010 RACHAEL WEATHERIZATION DIRECTOR, TIFFANI M 703.0 Nail Ingrown 11/15/2010 MADL SECURITIES COUNSELOR, BRITANY L 110.1 Onychomycosis 11/15/2010 MADL SECURITIES COUNSELOR, BRITANY L 703.0 Nail Ingrown 11/15/2010 MADL SECURITIES COUNSELOR, BRITANY L 110.1 Onychomycosis 11/15/2010 MADL SECURITIES COUNSELOR, BRITANY L 703.0 Nail Ingrown 01/02/2011 IVET BARGER DO 041.12 MRSA, METHICILLIN RESISTANT 01/02/2011 IVET BARGER DO 682.6 Cellulitis And Abscess Of Leg Except Foot 01/02/2011 ARLENE LEMA APRN 041.12 MRSA, METHICILLIN RESISTANT 01/02/2011 ARLENE LEMA APRN 682.6 Cellulitis And Abscess Of Leg Except Foot 01/02/2011 041.12 MRSA, METHICILLIN RESISTANT 01/02/2011 682.6 Cellulitis And Abscess Of Leg Except Foot 01/02/2011 ARLENE LEMA APRN 041.12 MRSA, METHICILLIN RESISTANT 01/02/2011 ARLENE LEMA APRN D 682.6 Cellulitis And Abscess Of Leg Except Foot 01/02/2011 IVET BARGER DO 041.12 MRSA, METHICILLIN RESISTANT 01/02/2011 IVET BARGER DO 682.6 Cellulitis And Abscess Of Leg Except Foot 01/02/2011 STACIA SECURITIES COUNSELORCHANTALE WellsA S 041.12 MRSA, METHICILLIN RESISTANT 01/02/2011 STACIA SECURITIES COUNSELOR, NAY S 682.6 Cellulitis And Abscess Of Leg Except Foot 01/02/2011 041.12 MRSA, METHICILLIN RESISTANT 01/02/2011 682.6 Cellulitis And Abscess Of Leg Except Foot 01/02/2011 041.12 MRSA, METHICILLIN RESISTANT 01/02/2011 682.6 Cellulitis And Abscess Of Leg Except Foot 01/02/2011 041.12 MRSA, METHICILLIN RESISTANT 01/02/2011 682.6 Cellulitis And Abscess Of Leg Except Foot 01/02/2011 041.12 MRSA, METHICILLIN RESISTANT 01/02/2011 682.6 Cellulitis And Abscess Of Leg Except Foot 01/02/2011 041.12 MRSA, METHICILLIN RESISTANT 01/02/2011 682.6 Cellulitis And Abscess Of Leg Except Foot 01/02/2011 041.12 MRSA, METHICILLIN RESISTANT 01/02/2011 682.6 Cellulitis And Abscess Of Leg Except Foot 01/02/2011 GARTON SECURITIES COUNSELOR, ARLENE D 041.12 MRSA, METHICILLIN RESISTANT 01/02/2011 [facility] [employer]URIT[employer] COUNSELOR, ARLENE D 682.6 Cellulitis And Abscess Of Leg Except Foot 01/02/2011 GARTON SECURITIES COUNSELOR, ARLENE D 041.12 MRSA, METHICILLIN RESISTANT 01/02/2011 GARTON SECURITIES COUNSELOR, ARLENE D 682.6 Cellulitis And Abscess Of Leg Except Foot 01/02/2011 GARTON SECURITIES COUNSELOR, ARLENE D 041.12 MRSA, METHICILLIN RESISTANT 01/02/2011 [facility] SECURITIES COUNSELOR, ARLENE D 682.6 Cellulitis And Abscess Of Leg Except Foot 01/02/2011 GARTON SECURITIES COUNSELOR, ARLENE D 041.12 MRSA, METHICILLIN RESISTANT 01/02/2011 [facility] [employer]URIT[employer] COUNSELOR, ARLENE D 682.6 Cellulitis And Abscess Of Leg Except Foot 01/02/2011 GARTON SECURITIES COUNSELOR, ARLENE D 041.12 MRSA, METHICILLIN RESISTANT 01/02/2011 [facility] SECURITIES COUNSELOR, ARLENE D 682.6 Cellulitis And Abscess Of Leg Except Foot 01/02/2011 TAN SECURITIES COUNSELOR, MARC A 041.12 MRSA, METHICILLIN RESISTANT 01/02/2011 TAN SECURITIES COUNSELOR, MARC A 682.6 Cellulitis And Abscess Of Leg Except Foot 01/02/2011 MADL SECURITIES COUNSELOR, BRITANY L 041.12 MRSA, METHICILLIN RESISTANT 01/02/2011 MADL SECURITIES COUNSELOR, BRITANY L 682.6 Cellulitis And Abscess Of Leg Except Foot 01/02/2011 MADL SECURITIES COUNSELOR, BRITANY L 041.12 MRSA, METHICILLIN RESISTANT 01/02/2011 MADL SECURITIES COUNSELOR, BRITANY L 682.6 Cellulitis And Abscess Of Leg Except Foot 01/02/2011 HULL DO, ERICKA K 041.12 MRSA, METHICILLIN RESISTANT 01/02/2011 HULL DO, ERICKA K 682.6 Cellulitis And Abscess Of Leg Except Foot 01/02/2011 MADL SECURITIES COUNSELOR, BRITANY L 041.12 MRSA, METHICILLIN RESISTANT 01/02/2011 MADL SECURITIES COUNSELOR, BRITANY L 682.6 Cellulitis And Abscess Of Leg Except Foot 01/02/2011 041.12 MRSA, METHICILLIN RESISTANT 01/02/2011 682.6 Cellulitis And Abscess Of Leg Except Foot [facility]/02[facility] 041.12 MRSA, METHICILLIN RESISTANT 01/02[facility] 682.6 Cellulitis And Abscess Of Leg Except Foot 01/02/2011 MADL SECURITIES COUNSELOR, BRITANY L 041.12 MRSA, METHICILLIN RESISTANT 01/02/2011 MADL SECURITIES COUNSELOR, BRITANY L 682.6 Cellulitis And Abscess Of Leg Except Foot 01/02/2011 HULL DO, ERICKA K 041.12 MRSA, METHICILLIN RESISTANT 01/02/2011 HULL DO, ERICKA K 682.6 Cellulitis And Abscess Of Leg Except Foot 01/02/2011 MADL SECURITIES COUNSELOR, BRITANY L 041.12 MRSA, METHICILLIN RESISTANT 01/02/2011 MADL SECURITIES COUNSELOR, BRITANY L 682.6 Cellulitis And Abscess Of Leg Except Foot 01/02/2011 MADL SECURITIES COUNSELOR, BRITANY L 041.12 MRSA, METHICILLIN RESISTANT 01/02/2011 MADL SECURITIES COUNSELOR, BRITANY L 682.6 Cellulitis And Abscess Of Leg Except Foot 01/02/2011 MADL SECURITIES COUNSELOR, BRITANY L 041.12 MRSA, METHICILLIN RESISTANT 01/02/2011 MADL SECURITIES COUNSELOR, BRITANY L 682.6 Cellulitis And Abscess Of Leg Except Foot 01/02/2011 [facility] CNS, TIFFANI M 041.12 MRSA, METHICILLIN RESISTANT 01/02/2011 RACHAEL WEATHERIZATION DIRECTOR, TIFFANI M 682.6 Cellulitis And Abscess Of Leg Except Foot 01/02/2011 MADL SECURITIES COUNSELOR, BRITANY L 041.12 MRSA, METHICILLIN RESISTANT 01/02/2011 MADL SECURITIES COUNSELOR, BRITANY L 682.6 Cellulitis And Abscess Of Leg Except Foot 01/02/2011 MADL SECURITIES COUNSELOR, BRITANY L 041.12 MRSA, METHICILLIN RESISTANT 01/02/2011 MADL SECURITIES COUNSELOR, BRITANY L 682.6 Cellulitis And Abscess Of Leg Except Foot 02/02/2011 IVET BARGER DO 296.89 MO BIPOLAR II 02/02/2011 IVET BARGER DO 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 02/02/2011 ARLENE LEMA APRN 296.89 MO BIPOLAR II 02/02/2011 ARLENE LEMA APRN 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 02/02/2011 296.89 MO BIPOLAR II 02/02/2011 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 02/02/2011 ARLENE LEMA APRN 296.89 MO BIPOLAR II 02/02/2011 ARLENE LEMA APRN 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 02/02/2011 IVET BARGER DO 296.89 MO BIPOLAR II 02/02/2011 IVET BARGER DO 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 02/02/2011 NAY PALOMO APRN 296.89 MO BIPOLAR II 02/02/2011 NAY PALOMO APRN 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 02/02/2011 296.89 MO BIPOLAR II 02/02/2011 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 02/02/2011 296.89 MO BIPOLAR II 02/02/2011 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 02/02/2011 296.89 MO BIPOLAR II 02/02/2011 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 02/02/2011 296.89 MO BIPOLAR II 02/02/2011 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 02/02/2011 296.89 MO BIPOLAR II 02/02/2011 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 02/02/2011 296.89 MO BIPOLAR II 02/02/2011 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 02/02/2011 ARLENE LEMA APRN 296.89 MO BIPOLAR II 02/02/2011 ARLENE LEMA APRN 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 02/02/2011 ARLENE LEMA APRN 296.89 MO BIPOLAR II 02/02/2011 ARLENE LEMA APRN 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 02/02/2011 ARLENE LEMA APRN 296.89 MO BIPOLAR II 02/02/2011 ARLENE LEMA APRN 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 02/02/2011 ARLENE LEMA APRN 296.89 MO BIPOLAR II 02/02/2011 ARLENE LEMA APRN 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 02/02/2011 ARLENE LEMA APRN 296.89 MO BIPOLAR II 02/02/2011 ARLENE LEMA APRN 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 02/02/2011 TANRAMONA SUGGS MARC A 296.89 MO BIPOLAR II 02/02/2011 TAN APRN, MARC A 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 02/02/2011 TRISH BOSCH APRNNYA L 296.89 MO BIPOLAR II 02/02/2011 RENÉL ES, BRITANY L 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 02/02/2011 RENÉL ES BRITANY L 296.89 MO BIPOLAR II 02/02/2011 DANITZA SUGGS BRITANY L 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 02/02/2011 HULL DOROCIOA K 296.89 MO BIPOLAR II 02/02/2011 HULL DO ERICKA K 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 02/02/2011 MADL SECURITIES COUNSELOR, BRITANY L 296.89 MO BIPOLAR II 02/02/2011 RENÉL SECURITIES COUNSELOR, BRITANY L 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 02/02/2011 296.89 MO BIPOLAR II 02/02/2011 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 02/02/2011 [facility]A [facility], ERICK R 296.89 MO BIPOLAR II 02/02/2011 YAHAIRA ERICK PECK 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 02/02/2011 MADL SECURITIES COUNSELOR, BRITANY L 296.89 MO BIPOLAR II 02/02/2011 MADL SECURITIES COUNSELOR, BRITANY L 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 02/02/2011 HULL DO, ERICKA K 296.89 MO BIPOLAR II 02/02/2011 HULL DO, ERICKA K 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 02/02/2011 MADL SECURITIES COUNSELOR, BRITANY L 296.89 MO BIPOLAR II 02/02/2011 MADL SECURITIES COUNSELOR, BRITANY L 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 02/02/2011 MADL SECURITIES COUNSELOR, BRITANY L 296.89 MO BIPOLAR II 02/02/2011 MADL SECURITIES COUNSELOR, BRITANY L 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 02/02/2011 MADL SECURITIES COUNSELOR, BRITANY L 296.89 MO BIPOLAR II 02/02/2011 MADL SECURITIES COUNSELOR, BRITANY L 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 02/02/2011 TIFFANI ROSA M 296.89 MO BIPOLAR II 02/02/2011 TIFFANI ROSA M 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 02/02/2011 MADL SECURITIES COUNSELOR, BRITANY L 296.89 MO BIPOLAR II 02/02/2011 MADL SECURITIES COUNSELOR, BRITANY L 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 02/02/2011 MADL SECURITIES COUNSELOR, BRITANY L 296.89 MO BIPOLAR II 02/02/2011 MADL SECURITIES COUNSELOR, BRITANY L 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 03/06/2011 IVET BARGER DO 530.81 Gerd 03/06/2011 IVET BARGER DO 536.8 Dyspepsia 03/06/2011 IVET BARGER DO 783.1 Weight Gain Abnormal 03/06/2011 ARLENE LEMA APRN 530.81 Gerd 03/06/2011 ARLENE LEMA APRN 536.8 Dyspepsia 03/06/2011 ARLENE LEMA APRN 783.1 Weight Gain Abnormal 03/06/2011 530.81 Gerd 03/06/2011 536.8 Dyspepsia 03/06/2011 783.1 Weight Gain Abnormal 03/06/2011 ARLENE LEMA APRN 530.81 Gerd 03/06/2011 ARLENE LEMA APRN 536.8 Dyspepsia 03/06/2011 ARLENE LEMA APRN 783.1 Weight Gain Abnormal 03/06/2011 DENITA WALTERS, IVET F 530.81 Gerd 03/06/2011 WERSIDNEY DO, IVET F 536.8 Dyspepsia 03/06/2011 WERSIDNEY DO, IVET F 783.1 Weight Gain Abnormal 03/06/2011 CHANTALE PALOMO APRNA S 530.81 Gerd 03/06/2011 NICKI PALOMO APRNNDA S 536.8 Dyspepsia 03/06/2011 NICKI PALOMO APRNNDA S 783.1 Weight Gain Abnormal 03/06/2011 530.81 Gerd 03/06/2011 536.8 Dyspepsia 03/06/2011 783.1 Weight Gain Abnormal 03/06/2011 530.81 Gerd 03/06/2011 536.8 Dyspepsia 03/06/2011 783.1 Weight Gain Abnormal 03/06/2011 530.81 Gerd 03/06/2011 536.8 Dyspepsia 03/06/2011 783.1 Weight Gain Abnormal 03/06/2011 530.81 Gerd 03/06/2011 536.8 Dyspepsia 03/06/2011 783.1 Weight Gain Abnormal 03/06/2011 530.81 Gerd 03/06/2011 536.8 Dyspepsia 03/06/2011 783.1 Weight Gain Abnormal 03/06/2011 530.81 Gerd 03/06/2011 536.8 Dyspepsia 03/06/2011 783.1 Weight Gain Abnormal 03/06/2011 ARLENE LEMA APRN 530.81 Gerd 03/06/2011 ARLENE LEMA APRN 536.8 Dyspepsia 03/06/2011 ARLENE LEMA APRN D 783.1 Weight Gain Abnormal 03/06/2011 ARLENE LEMA APRN 530.81 Gerd 03/06/2011 ARLENE LEMA APRN 536.8 Dyspepsia 03/06/2011 ARLENE LEMA APRN 783.1 Weight Gain Abnormal 03/06/2011 ARLENE LEMA APRN 530.81 Gerd 03/06/2011 ARLENE LEMA APRN 536.8 Dyspepsia 03/06/2011 ARLENE LEMA APRN 783.1 Weight Gain Abnormal 03/06/2011 ARLENE LEMA APRN 530.81 Gerd 03/06/2011 RAINAARLENE NUNES APRN D 536.8 Dyspepsia 03/06/2011 PITA ARLENE SUGGS 783.1 Weight Gain Abnormal 03/06/2011 RAINAARLENE NUNES APRN 530.81 Gerd 03/06/2011 PITA ARLENE SUGGS 536.8 Dyspepsia 03/06/2011 PITA PEDROARLENE Wells 783.1 Weight Gain Abnormal 03/06/2011 TAN APRN, MARC A 530.81 Gerd 03/06/2011 TAN SECURITIES COUNSELOR, MARC A 536.8 Dyspepsia 03/06/2011 TANRAMONA PEDRON, MARC A 783.1 Weight Gain Abnormal 03/06/2011 MADL SECURITIES COUNSELOR, BRITANY L 530.81 Gerd 03/06/2011 MADL SECURITIES COUNSELOR, BRITANY L 536.8 Dyspepsia 03/06/2011 MADL SECURITIES COUNSELOR, BRITANY L 783.1 Weight Gain Abnormal 03/06/2011 MADL SECURITIES COUNSELOR, BRITANY L 530.81 Gerd 03/06/2011 MADL SECURITIES COUNSELOR, BRITANY L 536.8 Dyspepsia 03/06/2011 MADL SECURITIES COUNSELOR, BRITANY L 783.1 Weight Gain Abnormal 03/06/2011 HULL DO, ERICKA K 530.81 Gerd 03/06/2011 HULL DO, ERICKA K 536.8 Dyspepsia 03/06/2011 HULL DO, ERICKA K 783.1 Weight Gain Abnormal 03/06/2011 MADL SECURITIES COUNSELOR, BRITANY L 530.81 Gerd 03/06/2011 MADL SECURITIES COUNSELOR, BRITANY L 536.8 Dyspepsia 03/06/2011 MADL SECURITIES COUNSELOR, BRITANY L 783.1 Weight Gain Abnormal 03/06/2011 530.81 Gerd 03/06/2011 536.8 Dyspepsia 03/06/2011 783.1 Weight Gain Abnormal 03/06/2011 ERICK MUÑOZ 530.81 Gerd 03/06/2011 [facility], ERICK R 536.8 Dyspepsia 03/06/2011 [facility], ERICK R 783.1 Weight Gain Abnormal 03/06/2011 MADL SECURITIES COUNSELOR, BRITANY L 530.81 Gerd 03/06/2011 MADL SECURITIES COUNSELOR, BRITANY L 536.8 Dyspepsia 03/06/2011 MADL SECURITIES COUNSELOR, BRITANY L 783.1 Weight Gain Abnormal 03/06/2011 HULL DO, ERICKA K 530.81 Gerd 03/06/2011 HULL DO, ERICKA K 536.8 Dyspepsia 03/06/2011 HULL DO, ERICKA K 783.1 Weight Gain Abnormal 03/06/2011 MADL SECURITIES COUNSELOR, BRITANY L 530.81 Gerd 03/06/2011 MADL SECURITIES COUNSELOR, BRITANY L 536.8 Dyspepsia 03/06/2011 MADL SECURITIES COUNSELOR, BRITANY L 783.1 Weight Gain Abnormal 03/06/2011 MADL SECURITIES COUNSELOR, BRITANY L 530.81 Gerd 03/06/2011 MADL SECURITIES COUNSELOR, BRITANY L 536.8 Dyspepsia 03/06/2011 MADL SECURITIES COUNSELOR, BRITANY L 783.1 Weight Gain Abnormal 03/06/2011 MADL SECURITIES COUNSELOR, BRITANY L 530.81 Gerd 03/06/2011 MADL SECURITIES COUNSELOR, BRITANY L 536.8 Dyspepsia 03/06/2011 MADL SECURITIES COUNSELOR, BRITANY L 783.1 Weight Gain Abnormal 03/06/2011 TIFFANI ROSA M 530.81 Gerd 03/06/2011 RACHAEL BAEZ, TIFFANI M 536.8 Dyspepsia 03/06/2011 RACHAEL BAEZ, TIFFANI M 783.1 Weight Gain Abnormal 03/06/2011 MADL SECURITIES COUNSELOR, BRITANY L 530.81 Gerd 03/06/2011 MADL SECURITIES COUNSELOR, BRITANY L 536.8 Dyspepsia 03/06/2011 MADL SECURITIES COUNSELOR, BRITANY L 783.1 Weight Gain Abnormal 03/06/2011 MADL SECURITIES COUNSELOR, BRITANY L 530.81 Gerd 03/06/2011 MADL SECURITIES COUNSELOR, BRITANY L 536.8 Dyspepsia 03/06/2011 MADL SECURITIES COUNSELOR, BRITANY L 783.1 Weight Gain Abnormal 03/08/2011 IVET BARGER DO 780.57 Sleep Apnea 03/08/2011 ARLENE LEMA APRN 780.57 Sleep Apnea 03/08/2011 780.57 Sleep Apnea 03/08/2011 ARLENE LEMA APRN 780.57 Sleep Apnea 03/08/2011 IVET BARGER DO 780.57 Sleep Apnea 03/08/2011 NAY PALOMO APRN 780.57 Sleep Apnea 03/08/2011 780.57 Sleep Apnea 03/08/2011 780.57 Sleep Apnea 03/08/2011 780.57 Sleep Apnea 03/08/2011 780.57 Sleep Apnea 03/08/2011 780.57 Sleep Apnea 03/08/2011 780.57 Sleep Apnea 03/08/2011 ARLENE LEMA APRN 780.57 Sleep Apnea 03/08/2011 ARLENE LEMA APRN 780.57 Sleep Apnea 03/08/2011 ARLENE LEMA APRN 780.57 Sleep Apnea 03/08/2011 ARLENE LEMA APRN 780.57 Sleep Apnea 03/08/2011 ARLENE LEMA APRN 780.57 Sleep Apnea 03/08/2011 MARC MADDOX APRN 780.57 Sleep Apnea 03/08/2011 DANITZA SECURITIES COUNSELOR, BRITANY L 780.57 Sleep Apnea 03/08/2011 DANITZA SECURITIES COUNSELOR, BRITANY L 780.57 Sleep Apnea 03/08/2011 ERICKA HULL DO 780.57 Sleep Apnea 03/08/2011 MADL SECURITIES COUNSELOR, BRITANY L 780.57 Sleep Apnea 03/08/2011 780.57 Sleep Ap[facility]/08[facility]2011 [facility] Sleep Apnea 03/08/2011 MADL SECURITIES COUNSELOR, BRITANY L 780.57 Sleep Apnea 03/08/2011 ERICKA HULL DO 780.57 Sleep Apnea 03/08/2011 MADL SECURITIES COUNSELOR, BRITANY L 780.57 Sleep Apnea 03/08/2011 MADL SECURITIES COUNSELOR, BRITANY L 780.57 Sleep Apnea 03/08/2011 MADL SECURITIES COUNSELOR, BRITANY L 780.57 Sleep Apnea 03/08/2011 TIFFANI ROSA 780.57 Sleep Apnea 03/08/2011 MADL SECURITIES COUNSELOR, BRITANY L 780.57 Sleep Apnea 03/08/2011 MADL SECURITIES COUNSELOR, BRITANY L 780.57 Sleep Apnea 04/03/2011 IVET BARGER DO V04.81 FLU DX (3 YRS AND ABOVE, IM) 04/03/2011 ARLENE LEMA APRN D V04.81 FLU DX (3 YRS AND ABOVE, IM) 04/03/2011 V04.81 FLU DX (3 YRS AND ABOVE, IM) 04/03/2011 BLAZE LEMA APRNTH D V04.81 FLU DX (3 YRS AND ABOVE, IM) 04/03/2011 IVET BARGER DO V04.81 FLU DX (3 YRS AND ABOVE, IM) 04/03/2011 NAY PALOMO APRN V04.81 FLU DX (3 YRS AND ABOVE, IM) 04/03/2011 V04.81 FLU DX (3 YRS AND ABOVE, IM) 04/03/2011 V04.81 FLU DX (3 YRS AND ABOVE, IM) 04/03/2011 V04.81 FLU DX (3 YRS AND ABOVE, IM) 04/03/2011 V04.81 FLU DX (3 YRS AND ABOVE, IM) 04/03/2011 V04.81 FLU DX (3 YRS AND ABOVE, IM) 04/03/2011 V04.81 FLU DX (3 YRS AND ABOVE, IM) 04/03/2011 CRISTIAN LEMA APRNBETH D V04.81 FLU DX (3 YRS AND ABOVE, IM) 04/03/2011 PITA SUGGS ARLENE D V04.81 FLU DX (3 YRS AND ABOVE, IM) 04/03/2011 PITA SUGGS ARLENE D V04.81 FLU DX (3 YRS AND ABOVE, IM) 04/03/2011 PITA SUGGS ARLENE D V04.81 FLU DX (3 YRS AND ABOVE, IM) 04/03/2011 PITA SUGGS ARLENE D V04.81 FLU DX (3 YRS AND ABOVE, IM) 04/03/2011 MARC MADDOX APRN V04.81 FLU DX (3 YRS AND ABOVE, IM) 04/03/2011 MADL SECURITIES COUNSELOR, BRITANY L V04.81 FLU DX (3 YRS AND ABOVE, IM) 04/03/2011 MADL SECURITIES COUNSELOR, BRITANY L V04.81 FLU DX (3 YRS AND ABOVE, IM) 04/03/2011 HULL DO, ERICKA K V04.81 FLU DX (3 YRS AND ABOVE, IM) 04/03/2011 MADL SECURITIES COUNSELOR, BRITANY L V04.81 FLU DX (3 YRS AND ABOVE, IM) 04/03/2011 V04.81 FLU DX (3 YRS AND ABOVE, IM) 04/03/2011 [facility], ERICK R V04.81 FLU DX (3 YRS AND ABOVE, IM) 04/03/2011 MADL SECURITIES COUNSELOR, BRITANY L V04.81 FLU DX (3 YRS AND ABOVE, IM) 04/03/2011 HULL DO, ERICKA K V04.81 FLU DX (3 YRS AND ABOVE, IM) 04/03/2011 MADL SECURITIES COUNSELOR, BRITANY L V04.81 FLU DX (3 YRS AND ABOVE, IM) 04/03/2011 MADL SECURITIES COUNSELOR, BRITANY L V04.81 FLU DX (3 YRS AND ABOVE, IM) 04/03/2011 MADL SECURITIES COUNSELOR, BRITANY L V04.81 FLU DX (3 YRS AND ABOVE, IM) 04/03/2011 RACHAEL BAEZ TIFFANI M V04.81 FLU DX (3 YRS AND ABOVE, IM) 04/03/2011 MADL SECURITIES COUNSELOR, BRITANY L V04.81 FLU DX (3 YRS AND ABOVE, IM) 04/03/2011 MADL SECURITIES COUNSELOR, BRITANY L V04.81 FLU DX (3 YRS AND ABOVE, IM) 04/28/2011 IVET BARGER DO 789.00 Abdominal Pain Unspecified Site 04/28/2011 IVET BARGER DO V65.3 Counseling - Dietary 04/28/2011 IVET BARGER DO V65.42 Counseling - Smoking Cessation 04/28/2011 IVET BARGER DO V74.5 Std Screen 04/28/2011 IVET BARGER DO V76.2 Cervical Cancer Screening (pap Smear) 04/28/2011 ARLENE LEMA APRN 789.00 Abdominal Pain Unspecified Site 04/28/2011 ARLENE LEMA APRN V65.3 Counseling - Dietary 04/28/2011 ARLENE LEMA APRN V65.42 Counseling - Smoking Cessation 04/28/2011 ARLENE LEMA APRN V74.5 Std Screen 04/28/2011 ARLENE LEMA APRN V76.2 Cervical Cancer Screening (pap Smear) 04/28/2011 789.00 Abdominal Pain Unspecified Site 04/28/2011 V65.3 Counseling - Dietary 04/28/2011 V65.42 Counseling - Smoking Cessation 04/28/2011 V74.5 Std Screen 04/28/2011 V76.2 Cervical Cancer Screening (pap Smear) 04/28/2011 ARLENE LEMA APRN 789.00 Abdominal Pain Unspecified Site 04/28/2011 ARLENE LEMA APRN V65.3 Counseling - Dietary 04/28/2011 ARLENE LEMA APRN V65.42 Counseling - Smoking Cessation 04/28/2011 ARLENE LEMA APRN V74.5 Std Screen 04/28/2011 ARLENE LEMA APRN V76.2 Cervical Cancer Screening (pap Smear) 04/28/2011 IVET BARGER DO F 789.00 Abdominal Pain Unspecified Site 04/28/2011 IVET BARGER DO F V65.3 Counseling - Dietary 04/28/2011 IVET BARGER DO F V65.42 Counseling - Smoking Cessation 04/28/2011 IVET BARGER DO F V74.5 Std Screen 04/28/2011 CALVIN BARGER DOEN F V76.2 Cervical Cancer Screening (pap Smear) 04/28/2011 NICKI PALOMO APRNNDA S 789.00 Abdominal Pain Unspecified Site 04/28/2011 NICKI PALOMO APRNNDA S V65.3 Counseling - Dietary 04/28/2011 NICKI PALOMO APRNNDA S V65.42 Counseling - Smoking Cessation 04/28/2011 NICKI PALOMO APRNNDA S V74.5 Std Screen 04/28/2011 NICKI PALOMO APRNNDA S V76.2 Cervical Cancer Screening (pap Smear) 04/28/2011 789.00 Abdominal Pain Unspecified Site 04/28/2011 V65.3 Counseling - Dietary 04/28/2011 V65.42 Counseling - Smoking Cessation 04/28/2011 V74.5 Std Screen 04/28/2011 V76.2 Cervical Cancer Screening (pap Smear) 04/28/2011 789.00 Abdominal Pain Unspecified Site 04/28/2011 V65.3 Counseling - Dietary 04/28/2011 V65.42 Counseling - Smoking Cessation 04/28/2011 V74.5 Std Screen 04/28/2011 V76.2 Cervical Cancer Screening (pap Smear) 04/28/2011 789.00 Abdominal Pain Unspecified Site 04/28/2011 V65.3 Counseling - Dietary 04/28/2011 V65.42 Counseling - Smoking Cessation 04/28/2011 V74.5 Std Screen 04/28/2011 V76.2 Cervical Cancer Screening (pap Smear) 04/28/2011 789.00 Abdominal Pain Unspecified Site 04/28/2011 V65.3 Counseling - Dietary 04/28/2011 V65.42 Counseling - Smoking Cessation 04/28/2011 V74.5 Std Screen 04/28/2011 V76.2 Cervical Cancer Screening (pap Smear) 04/28/2011 789.00 Abdominal Pain Unspecified Site 04/28/2011 V65.3 Counseling - Dietary 04/28/2011 V65.42 Counseling - Smoking Cessation 04/28/2011 V74.5 Std Screen 04/28/2011 V76.2 Cervical Cancer Screening (pap Smear) 04/28/2011 789.00 Abdominal Pain Unspecified Site 04/28/2011 V65.3 Counseling - Dietary 04/28/2011 V65.42 Counseling - Smoking Cessation 04/28/2011 V74.5 Std Screen 04/28/2011 V76.2 Cervical Cancer Screening (pap Smear) 04/28/2011 ARLENE LEMA APRN 789.00 Abdominal Pain Unspecified Site 04/28/2011 ARLENE LEMA APRN V65.3 Counseling - Dietary 04/28/2011 ARLENE LEMA APRN V65.42 Counseling - Smoking Cessation 04/28/2011 ARLENE LEMA APRN V74.5 Std Screen 04/28/2011 ARLENE LEMA APRN V76.2 Cervical Cancer Screening (pap Smear) 04/28/2011 BLAZE LEMA APRNTH D 789.00 Abdominal Pain Unspecified Site 04/28/2011 ARLENE LEMA APRN D V65.3 Counseling - Dietary 04/28/2011 ARLENE LEMA APRN D V65.42 Counseling - Smoking Cessation 04/28/2011 ARLENE LEMA APRN V74.5 Std Screen 04/28/2011 ARLENE LEMA APRN D V76.2 Cervical Cancer Screening (pap Smear) 04/28/2011 BLAZE LEMA APRNTH D 789.00 Abdominal Pain Unspecified Site 04/28/2011 ARLENE LEMA APRN V65.3 Counseling - Dietary 04/28/2011 ARLENE LEMA APRN D V65.42 Counseling - Smoking Cessation 04/28/2011 ARLENE LEMA APRN V74.5 Std Screen 04/28/2011 ARLENE LEMA APRN V76.2 Cervical Cancer Screening (pap Smear) 04/28/2011 ARLENE LEMA APRN D 789.00 Abdominal Pain Unspecified Site 04/28/2011 ARLENE LEMA APRN V65.3 Counseling - Dietary 04/28/2011 ARLENE LEMA APRN D V65.42 Counseling - Smoking Cessation 04/28/2011 ARLENE LEMA APRN D V74.5 Std Screen 04/28/2011 ARLENE LEMA APRN D V76.2 Cervical Cancer Screening (pap Smear) 04/28/2011 CRISTIAN LEMA APRNBETH D 789.00 Abdominal Pain Unspecified Site 04/28/2011 CRISTIAN LEMA APRNBETH D V65.3 Counseling - Dietary 04/28/2011 ARLENE LEMA APRN D V65.42 Counseling - Smoking Cessation 04/28/2011 CRISTIAN LEMA APRNBETH D V74.5 Std Screen 04/28/2011 CRISTIAN LEMA APRNBETH D V76.2 Cervical Cancer Screening (pap Smear) 04/28/2011 MARC MADDOX APRN 789.00 Abdominal Pain Unspecified Site 04/28/2011 JOHAN MADDOX APRNIDI A V65.3 Counseling - Dietary 04/28/2011 JOHAN MADDOX APRNIDI A V65.42 Counseling - Smoking Cessation 04/28/2011 JOHAN MADDOX APRNIDI A V74.5 Std Screen 04/28/2011 JOHAN MADDOX APRNIDI A V76.2 Cervical Cancer Screening (pap Smear) 04/28/2011 MARLENI BOSCH APRNA L 789.00 Abdominal Pain Unspecified Site 04/28/2011 MARLENI BOSCH APRNA L V65.3 Counseling - Dietary 04/28/2011 TRISH BOSCH APRNNYA L V65.42 Counseling - Smoking Cessation 04/28/2011 MARLENI BOSCH APRNA L V74.5 Std Screen 04/28/2011 MARLENI BOSCH APRNA L V76.2 Cervical Cancer Screening (pap Smear) 04/28/2011 MARLENI BOSCH APRNA L 789.00 Abdominal Pain Unspecified Site 04/28/2011 MARLENI BOSCH APRNA L V65.3 Counseling - Dietary 04/28/2011 TRISH BOSCH APRNNYA L V65.42 Counseling - Smoking Cessation 04/28/2011 MARLENI BOSCH APRNA L V74.5 Std Screen 04/28/2011 MARLENI BOSCH APRNA L V76.2 Cervical Cancer Screening (pap Smear) 04/28/2011 HULL DO, ERICKA K 789.00 Abdominal Pain Unspecified Site 04/28/2011 HULL DO, ERICKA K V65.3 Counseling - Dietary 04/28/2011 HULL DO, ERICKA K V65.42 Counseling - Smoking Cessation 04/28/2011 HULL DO, ERICKA K V74.5 Std Screen 04/28/2011 HULL DO, ERICKA K V76.2 Cervical Cancer Screening (pap Smear) 04/28/2011 MARLENI BOSCH APRNA L 789.00 Abdominal Pain Unspecified Site 04/28/2011 TRISH BOSCH APRNNYA L V65.3 Counseling - Dietary 04/28/2011 TRISH BOSCH APRNNYA L V65.42 Counseling - Smoking Cessation 04/28/2011 MADL SECURITIES COUNSELOR, BRITANY L V74.5 Std Screen 04/28/2011 DANITZA SECURITIES COUNSELOR, BRITANY L V76.2 Cervical Cancer Screening (pap Smear) 04/28/2011 789.00 Abdominal Pain Unspecified Site 04/28/2011 V65.3 Counseling - Dietary 04/28/2011 V65.42 Counseling - Smoking Cessation 04/28/2011 V74.5 Std Screen 04/28/2011 V76.2 Cervical Cancer Screening (pap Smear) 04/28/2011 [facility], ERICK R 789.00 Abdominal Pain Unspecified Site 04/28/2011 [facility], ERICK R V65.3 Counseling - Dietary 04/28/2011 [facility], ERICK R V65.42 Counseling - Smoking Cessation 04/28/2011 [facility], ERICK R V74.5 Std Screen 04/28/2011 [facility], ERICK R V76.2 Cervical Cancer Screening (pap Smear) 04/28/2011 DANITZA SECURITIES COUNSELOR, BRITANY L 789.00 Abdominal Pain Unspecified Site 04/28/2011 RENÉL SECURITIES COUNSELOR, BRITANY L V65.3 Counseling - Dietary 04/28/2011 MADL SECURITIES COUNSELOR, BRITANY L V65.42 Counseling - Smoking Cessation 04/28/2011 MADL SECURITIES COUNSELOR, BRITANY L V74.5 Std Screen 04/28/2011 MADNas SECURITIES COUNSELOR, BRITANY L V76.2 Cervical Cancer Screening (pap Smear) 04/28/2011 HULL DO, ERICKA K 789.00 Abdominal Pain Unspecified Site 04/28/2011 HULL DO, ERICKA K V65.3 Counseling - Dietary 04/28/2011 HULL DO, ERICKA K V65.42 Counseling - Smoking Cessation 04/28/2011 HULL DO, ERICKA K V74.5 Std Screen 04/28/2011 HULL DO, ERICKA K V76.2 Cervical Cancer Screening (pap Smear) 04/28/2011 MADL SECURITIES COUNSELOR, BRITANY L 789.00 Abdominal Pain Unspecified Site 04/28/2011 MADL SECURITIES COUNSELOR, BRITANY L V65.3 Counseling - Dietary 04/28/2011 MADL SECURITIES COUNSELOR, BRITANY L V65.42 Counseling - Smoking Cessation 04/28/2011 MADL SECURITIES COUNSELOR, BRITANY L V74.5 Std Screen 04/28/2011 MADL SECURITIES COUNSELOR, BRITANY L V76.2 Cervical Cancer Screening (pap Smear) 04/28/2011 MADL SECURITIES COUNSELOR, BRITANY L 789.00 Abdominal Pain Unspecified Site 04/28/2011 MADL SECURITIES COUNSELOR, BRITANY L V65.3 Counseling - Dietary 04/28/2011 MADL SECURITIES COUNSELOR, BRITANY L V65.42 Counseling - Smoking Cessation 04/28/2011 MADL SECURITIES COUNSELOR, BRITANY L V74.5 Std Screen 04/28/2011 MADL SECURITIES COUNSELOR, BRITANY L V76.2 Cervical Cancer Screening (pap Smear) 04/28/2011 MADL SECURITIES COUNSELOR, BRITANY L 789.00 Abdominal Pain Unspecified Site 04/28/2011 MADL SECURITIES COUNSELOR, BRITANY L V65.3 Counseling - Dietary 04/28/2011 MADL SECURITIES COUNSELOR, BRITANY L V65.42 Counseling - Smoking Cessation 04/28/2011 MADL SECURITIES COUNSELOR, BRITANY L V74.5 Std Screen 04/28/2011 MADL SECURITIES COUNSELOR, BRITANY L V76.2 Cervical Cancer Screening (pap Smear) 04/28/2011 TIFFANI ROSA 789.00 Abdominal Pain Unspecified Site 04/28/2011 TIFFANI ROSA V65.3 Counseling - Dietary 04/28/2011 TIFFANI ROSA V65.42 Counseling - Smoking Cessation 04/28/2011 TIFFANI ROSA M V74.5 Std Screen 04/28/2011 TIFFANI ROSA M V76.2 Cervical Cancer Screening (pap Smear) 04/28/2011 RENÉL SECURITIES COUNSELOR, BRITANY L 789.00 Abdominal Pain Unspecified Site 04/28/2011 MADL SECURITIES COUNSELOR, BRITANY L V65.3 Counseling - Dietary 04/28/2011 MADL SECURITIES COUNSELOR, BRITANY L V65.42 Counseling - Smoking Cessation 04/28/2011 MADL SECURITIES COUNSELOR, BRITANY L V74.5 Std Screen 04/28/2011 MADL SECURITIES COUNSELOR, BRITANY L V76.2 Cervical Cancer Screening (pap Smear) 04/28/2011 MADL SECURITIES COUNSELOR, BRITANY L 789.00 Abdominal Pain Unspecified Site 04/28/2011 VIOLET BOSCH APRNRHEA Lovell V65.3 Counseling - Dietary 04/28/2011 DANITZA BRITANY SUGGS V65.42 Counseling - Smoking Cessation 04/28/2011 VIOLET BOSCH APRNRHEA Lovell V74.5 Std Screen 04/28/2011 DANITZA PEDROBRITANY Wells V76.2 Cervical Cancer Screening (pap Smear) 06/02/2011 IVET BARGER DO 296.64 MO BIPOLAR I MIXED W PSYCHOTIC BEHAVIOR 06/02/2011 ARLENE LEMA APRN 296.64 MO BIPOLAR I MIXED W PSYCHOTIC BEHAVIOR 06/02/2011 296.64 MO BIPOLAR I MIXED W PSYCHOTIC BEHAVIOR 06/02/2011 ARLENE LEMA APRN 296.64 MO BIPOLAR I MIXED W PSYCHOTIC BEHAVIOR 06/02/2011 IVET BARGER DO 296.64 MO BIPOLAR I MIXED W PSYCHOTIC BEHAVIOR 06/02/2011 NAY PALOMO APRN 296.64 MO BIPOLAR I MIXED W PSYCHOTIC BEHAVIOR 06/02/2011 296.64 MO BIPOLAR I MIXED W PSYCHOTIC BEHAVIOR 06/02/2011 296.64 MO BIPOLAR I MIXED W PSYCHOTIC BEHAVIOR 06/02/2011 296.64 MO BIPOLAR I MIXED W PSYCHOTIC BEHAVIOR 06/02/2011 296.64 MO BIPOLAR I MIXED W PSYCHOTIC BEHAVIOR 06/02/2011 296.64 MO BIPOLAR I MIXED W PSYCHOTIC BEHAVIOR 06/02/2011 296.64 MO BIPOLAR I MIXED W PSYCHOTIC BEHAVIOR 06/02/2011 ARLENE LEMA APRN 296.64 MO BIPOLAR I MIXED W PSYCHOTIC BEHAVIOR 06/02/2011 ARLENE LEMA APRN 296.64 MO BIPOLAR I MIXED W PSYCHOTIC BEHAVIOR 06/02/2011 ARLENE LEMA APRN 296.64 MO BIPOLAR I MIXED W PSYCHOTIC BEHAVIOR 06/02/2011 ARLENE LEMA APRN 296.64 MO BIPOLAR I MIXED W PSYCHOTIC BEHAVIOR 06/02/2011 ARLENE LEMA APRN 296.64 MO BIPOLAR I MIXED W PSYCHOTIC BEHAVIOR 06/02/2011 MARC MADDOX APRN 296.64 MO BIPOLAR I MIXED W PSYCHOTIC BEHAVIOR 06/02/2011 BRITANY BOSCH APRN 296.64 MO BIPOLAR I MIXED W PSYCHOTIC BEHAVIOR 06/02/2011 [employer], BRITANY L 296.64 MO BIPOLAR I MIXED W PSYCHOTIC BEHAVIOR 06/02/2011 HULL DO, ERICKA K 296.64 MO BIPOLAR I MIXED W PSYCHOTIC BEHAVIOR 06/02/2011 [employer] COUNSELOR, BRITANY L 296.64 MO BIPOLAR I MIXED W PSYCHOTIC BEHAVIOR 06/02/2011 296.64 MO BIPOLAR I MIXED W PSYCHOTIC BEHAVIOR 06/02/2011 [facility], ERICK R 296.64 MO BIPOLAR I MIXED W PSYCHOTIC BEHAVIOR 06/02/2011 MAD[employer]IT[employer] COUNSELOR, BRITANY L 296.64 MO BIPOLAR I MIXED W PSYCHOTIC BEHAVIOR 06/02/2011 HULL DO, ERICKA K 296.64 MO BIPOLAR I MIXED W PSYCHOTIC BEHAVIOR 06/02/2011 MAD[employer]URIT[employer] COUNSELOR, BRITANY L 296.64 MO BIPOLAR I MIXED W PSYCHOTIC BEHAVIOR 06/02/2011 M[employer] SECURIT[employer] COUNSELOR, BRITANY L 296.64 MO BIPOLAR I MIXED W PSYCHOTIC BEHAVIOR 06/02/2011 M[employer] SECURIT[employer] COUNSELOR, BRITANY L 296.64 MO BIPOLAR I MIXED W PSYCHOTIC BEHAVIOR 06/02/2011 [facility] 296.[facility] MO BIPOLAR I MIXED W PSYCHOTIC BEHAVIOR 06/02/2011 [employer]IT[employer] COUNSELOR, BRITANY L 296.64 MO BIPOLAR I MIXED W PSYCHOTIC BEHAVIOR 06/02/2011 M[employer] SECURIT[employer] COUNSELOR, BRITANY L 296.64 MO BIPOLAR I MIXED W PSYCHOTIC BEHAVIOR 10/05/2011 IVET BARGER DO 705.83 Hidradenitis 10/05/2011 ARLENE LEMA APRN 705.83 Hidradenitis 10/05/2011 705.83 Hidradenitis 10/05/2011 ARLENE LEMA APRN 705.83 Hidradenitis 10/05/2011 IVET BARGER DO 705.83 Hidradenitis 10/05/2011 NAY PALOMO APRN 705.83 Hidradenitis 10/05/2011 705.83 Hidradenitis 10/05/2011 705.83 Hidradenitis 10/05/2011 705.83 Hidradenitis 10/05/2011 705.83 Hidradenitis 10/05/2011 705.83 Hidradenitis 10/05/2011 705.83 Hidradenitis 10/05/2011 ARLENE LEMA APRN 705.83 Hidradenitis 10/05/2011 ARLENE LEMA APRN 705.83 Hidradenitis 10/05/2011 ARLENE LEMA APRN 705.83 Hidradenitis 10/05/2011 ARLENE LEMA APRN 705.83 Hidradenitis 10/05/2011 ARLENE LEMA APRN 705.83 Hidradenitis 10/05/2011 TAN SUGGS MARC A 705.83 Hidradenitis 10/05/2011 [employer] COUNSELOR, BRITANY L 705.83 Hidradenitis 10/05/2011 M[employer]IT[employer] COUNSELOR, BRITANY L 705.83 Hidradenitis 10/05/2011 HULL DOERICKA K 705.83 Hidradenitis 10/05/2011 [employer] COUNSELOR, BRITANY L 705.83 Hidradenitis 10/05/2011 705.83 Hidradenitis 10/05/2011 [facility], ERICK R 705.83 Hidradenitis 10/05/2011 M[employer]IT[employer] COUNSELOR, BRITANY L 705.83 Hidradenitis 10/05/2011 HULL DOERICKA K 705.83 Hidradenitis 10/05/2011 MAD[employer] SEC[employer]IT[employer] COUNSELOR, BRITANY L 705.83 Hidradenitis 10/05/2011 M[employer] SEC[employer]IT[employer] COUNSELOR, BRITANY L 705.83 Hidradenitis 10/05/2011 MAD[employer] SEC[employer]IT[employer] COUNSELOR, BRITANY L 705.83 Hidradenitis 10/05/2011 TIFFANI ROSA 705.83 Hidradenitis 10/05/2011 MAD[employer]IT[employer] COUNSELOR, BRITANY L 705.83 Hidradenitis 10/05/2011 MAD[employer] SEC[employer]IT[employer] COUNSELOR, BRITANY L 705.83 Hidradenitis 12/14/2011 IVET BARGER DO 401.1 BENIGN ESSENTIAL HYPERTENSION 12/14/2011 ARLENE LEMA APRN 401.1 BENIGN ESSENTIAL HYPERTENSION 12/14/2011 401.1 BENIGN ESSENTIAL HYPERTENSION 12/14/2011 ARLENE LEMA APRN 401.1 BENIGN ESSENTIAL HYPERTENSION 12/14/2011 IVET BARGER DO 401.1 BENIGN ESSENTIAL HYPERTENSION 12/14/2011 NAY PALOMO APRN 401.1 BENIGN ESSENTIAL HYPERTENSION 12/14/2011 401.1 BENIGN ESSENTIAL HYPERTENSION 12/14/2011 401.1 BENIGN ESSENTIAL HYPERTENSION 12/14/2011 401.1 BENIGN ESSENTIAL HYPERTENSION 12/14/2011 401.1 BENIGN ESSENTIAL HYPERTENSION 12/14/2011 401.1 BENIGN ESSENTIAL HYPERTENSION 12/14/2011 401.1 BENIGN ESSENTIAL HYPERTENSION 12/14/2011 ARLENE LEMA APRN 401.1 BENIGN ESSENTIAL HYPERTENSION 12/14/2011 ARLENE LEMA APRN D 401.1 BENIGN ESSENTIAL HYPERTENSION 12/14/2011 ARLENE LEMA APRN D 401.1 BENIGN ESSENTIAL HYPERTENSION 12/14/2011 ARLENE LEMA APRN D 401.1 BENIGN ESSENTIAL HYPERTENSION 12/14/2011 ARLENE LEMA APRN D 401.1 BENIGN ESSENTIAL HYPERTENSION 12/14/2011 MARC MADDOX APRN 401.1 BENIGN ESSENTIAL HYPERTENSION 12/14/2011 DANITZA SECURITIES COUNSELOR, BRITANY L 401.1 BENIGN ESSENTIAL HYPERTENSION 12/14/2011 DANITZA SECURITIES COUNSELOR, BRITANY L 401.1 BENIGN ESSENTIAL HYPERTENSION 12/14/2011 ERICKA HULL DO K 401.1 BENIGN ESSENTIAL HYPERTENSION 12/14/2011 DANITZA SECURITIES COUNSELOR, BRITANY L 401.1 BENIGN ESSENTIAL HYPERTENSION 12/14/2011 401.1 BENIGN ESSENTIAL HYPERTENSION 12/14/2011 [facility], ERICK R 401.1 BENIGN ESSENTIAL HYPERTENSION 12/14/2011 MADL SECURITIES COUNSELOR, BRITANY L 401.1 BENIGN ESSENTIAL HYPERTENSION 12/14/2011 DELLA WALTRES ERICKA K 401.1 BENIGN ESSENTIAL HYPERTENSION 12/14/2011 MADL SECURITIES COUNSELOR, BRITANY L 401.1 BENIGN ESSENTIAL HYPERTENSION 12/14/2011 MADL SECURITIES COUNSELOR, BRITANY L 401.1 BENIGN ESSENTIAL HYPERTENSION 12/14/2011 MADL SECURITIES COUNSELOR, BRITANY L 401.1 BENIGN ESSENTIAL HYPERTENSION 12/14/2011 TIFFANI ROSA 401.1 BENIGN ESSENTIAL HYPERTENSION 12/14/2011 MADL SECURITIES COUNSELOR, BRITANY L 401.1 BENIGN ESSENTIAL HYPERTENSION 12/14/2011 MADL SECURITIES COUNSELOR, BRITANY L 401.1 BENIGN ESSENTIAL HYPERTENSION 03/21/2012 IVET BARGER DO F V74.1 TB SCREENING 03/21/2012 ARLENE LEMA APRN V74.1 TB SCREENING 03/21/2012 V74.1 TB SCREENING 03/21/2012 ARLENE LEMA APRN V74.1 TB SCREENING 03/21/2012 IVET BARGER DO F V74.1 TB SCREENING 03/21/2012 NAY PALOMO APRN V74.1 TB SCREENING 03/21/2012 V74.1 TB SCREENING 03/21/2012 V74.1 TB SCREENING 03/21/2012 V74.1 TB SCREENING 03/21/2012 V74.1 TB SCREENING 03/21/2012 V74.1 TB SCREENING 03/21/2012 V74.1 TB SCREENING 03/21/2012 ARLENE LEMA APRN V74.1 TB SCREENING 03/21/2012 ARLENE LEMA APRN V74.1 TB SCREENING 03/21/2012 ARLENE LEMA APRN V74.1 TB SCREENING 03/21/2012 ARLENE LEMA APRN V74.1 TB SCREENING 03/21/2012 ARLENE LEMA APRN V74.1 TB SCREENING 03/21/2012 MARC MADDOX APRN V74.1 TB SCREENING 03/21/2012 DANITZA SECURITIES COUNSELOR, BRITANY L V74.1 TB SCREENING 03/21/2012 DANITZA SECURITIES COUNSELOR, BRITANY L V74.1 TB SCREENING 03/21/2012 ERICKA HULL DO K V74.1 TB SCREENING 03/21/2012 MADL SECURITIES COUNSELOR, BRITANY L V74.1 TB SCREENING 03/21/2012 V74.1 TB SCREENING 03/21/2012 [facility], ERICK R V74.1 TB SCREENING 03/21/2012 MADL SECURITIES COUNSELOR, BRITANY L V74.1 TB SCREENING 03/21/2012 ERICKA HULL DO K V74.1 TB SCREENING 03/21/2012 MADL SECURITIES COUNSELOR, BRITANY L V74.1 TB SCREENING 03/21/2012 MADL SECURITIES COUNSELOR, BRITANY L V74.1 TB SCREENING 03/21/2012 MADL SECURITIES COUNSELOR, BRITANY L V74.1 TB SCREENING 03/21/2012 TIFFANI ROSA M V74.1 TB SCREENING 03/21/2012 RENÉL SECURITIES COUNSELOR, BRITANY L V74.1 TB SCREENING 03/21/2012 MADL SECURITIES COUNSELOR, BRITANY L V74.1 TB SCREENING 05/30/2012 465.9 ACUTE UPPER RESPIRATORY INFECTIONS OF UNSPECIFIED SITE 05/30/2012 V18.0 FAM HX DIABETES MELLITUS 05/30/2012 V69.2 HIGH-RISK SEXUAL BEHAVIOR 05/30/2012 V72.31 SPLICING MACHINE OPERATOR AUTOMATIC EXAM, ROUTINE 05/30/2012 V74.5 STD SCREEN 05/30/2012 V76.10 BREAST CANCER SCREENING 05/30/2012 V76.2 CERVICAL CANCER SCREENING (PAP SMEAR) 05/30/2012 ARLENE LEMA APRN 465.9 ACUTE UPPER RESPIRATORY INFECTIONS OF UNSPECIFIED SITE 05/30/2012 ARLENE LEMA APRN V18.0 FAM HX DIABETES MELLITUS 05/30/2012 ARLENE LEMA APRN V69.2 HIGH-RISK SEXUAL BEHAVIOR 05/30/2012 ARLENE LEMA APRN V72.31 SPLICING MACHINE OPERATOR AUTOMATIC EXAM, ROUTINE 05/30/2012 ARLENE LEMA APRN V74.5 STD SCREEN 05/30/2012 ARLENE LEMA APRN V76.10 BREAST CANCER SCREENING 05/30/2012 ARLENE LEMA APRN V76.2 CERVICAL CANCER SCREENING (PAP SMEAR) 05/30/2012 IVET BARGER DO 465.9 ACUTE UPPER RESPIRATORY INFECTIONS OF UNSPECIFIED SITE 05/30/2012 IVET BARGER DO V18.0 FAM HX DIABETES MELLITUS 05/30/2012 IVET BARGER DO V69.2 HIGH-RISK SEXUAL BEHAVIOR 05/30/2012 IVET BARGER DO V72.31 SPLICING MACHINE OPERATOR AUTOMATIC EXAM, ROUTINE 05/30/2012 IVET BARGER DO V74.5 STD SCREEN 05/30/2012 IVET BARGER DO F V76.10 BREAST CANCER SCREENING 05/30/2012 IVET BARGER DO V76.2 CERVICAL CANCER SCREENING (PAP SMEAR) 05/30/2012 NAY PALOMO APRN 465.9 ACUTE UPPER RESPIRATORY INFECTIONS OF UNSPECIFIED SITE 05/30/2012 STACIA SECURITIES COUNSELORNAY S V18.0 FAM HX DIABETES MELLITUS 05/30/2012 NICKI PALOMO APRNNDA S V69.2 HIGH-RISK SEXUAL BEHAVIOR 05/30/2012 NAY PALOMO APRN S V72.31 SPLICING MACHINE OPERATOR AUTOMATIC EXAM, ROUTINE 05/30/2012 NAY PALOMO APRN S V74.5 STD SCREEN 05/30/2012 NAY PALOMO APRN S V76.10 BREAST CANCER SCREENING 05/30/2012 NAY PALOMO APRN S V76.2 CERVICAL CANCER SCREENING (PAP SMEAR) 05/30/2012 465.9 ACUTE UPPER RESPIRATORY INFECTIONS OF UNSPECIFIED SITE 05/30/2012 V18.0 FAM HX DIABETES MELLITUS 05/30/2012 V69.2 HIGH-RISK SEXUAL BEHAVIOR 05/30/2012 V72.31 SPLICING MACHINE OPERATOR AUTOMATIC EXAM, ROUTINE 05/30/2012 V74.5 STD SCREEN 05/30/2012 V76.10 BREAST CANCER SCREENING 05/30/2012 V76.2 CERVICAL CANCER SCREENING (PAP SMEAR) 05/30/2012 465.9 ACUTE UPPER RESPIRATORY INFECTIONS OF UNSPECIFIED SITE 05/30/2012 V18.0 FAM HX DIABETES MELLITUS 05/30/2012 V69.2 HIGH-RISK SEXUAL BEHAVIOR 05/30/2012 V72.31 SPLICING MACHINE OPERATOR AUTOMATIC EXAM, ROUTINE 05/30/2012 V74.5 STD SCREEN 05/30/2012 V76.10 BREAST CANCER SCREENING 05/30/2012 V76.2 CERVICAL CANCER SCREENING (PAP SMEAR) 05/30/2012 465.9 ACUTE UPPER RESPIRATORY INFECTIONS OF UNSPECIFIED SITE 05/30/2012 V18.0 FAM HX DIABETES MELLITUS 05/30/2012 V69.2 HIGH-RISK SEXUAL BEHAVIOR 05/30/2012 V72.31 SPLICING MACHINE OPERATOR AUTOMATIC EXAM, ROUTINE 05/30/2012 V74.5 STD SCREEN 05/30/2012 V76.10 BREAST CANCER SCREENING 05/30/2012 V76.2 CERVICAL CANCER SCREENING (PAP SMEAR) 05/30/2012 465.9 ACUTE UPPER RESPIRATORY INFECTIONS OF UNSPECIFIED SITE 05/30/2012 V18.0 FAM HX DIABETES MELLITUS 05/30/2012 V69.2 HIGH-RISK SEXUAL BEHAVIOR 05/30/2012 V72.31 SPLICING MACHINE OPERATOR AUTOMATIC EXAM, ROUTINE 05/30/2012 V74.5 STD SCREEN 05/30/2012 V76.10 BREAST CANCER SCREENING 05/30/2012 V76.2 CERVICAL CANCER SCREENING (PAP SMEAR) 05/30/2012 465.9 ACUTE UPPER RESPIRATORY INFECTIONS OF UNSPECIFIED SITE 05/30/2012 V18.0 FAM HX DIABETES MELLITUS 05/30/2012 V69.2 HIGH-RISK SEXUAL BEHAVIOR 05/30/2012 V72.31 SPLICING MACHINE OPERATOR AUTOMATIC EXAM, ROUTINE 05/30/2012 V74.5 STD SCREEN 05/30/2012 V76.10 BREAST CANCER SCREENING 05/30/2012 V76.2 CERVICAL CANCER SCREENING (PAP SMEAR) 05/30/2012 465.9 ACUTE UPPER RESPIRATORY INFECTIONS OF UNSPECIFIED SITE 05/30/2012 V18.0 FAM HX DIABETES MELLITUS 05/30/2012 V69.2 HIGH-RISK SEXUAL BEHAVIOR 05/30/2012 V72.31 SPLICING MACHINE OPERATOR AUTOMATIC EXAM, ROUTINE 05/30/2012 V74.5 STD SCREEN 05/30/2012 V76.10 BREAST CANCER SCREENING 05/30/2012 V76.2 CERVICAL CANCER SCREENING (PAP SMEAR) 05/30/2012 ARLENE LEMA APRN 465.9 ACUTE UPPER RESPIRATORY INFECTIONS OF UNSPECIFIED SITE 05/30/2012 ARLENE LEMA APRN V18.0 FAM HX DIABETES MELLITUS 05/30/2012 ARLENE LEMA APRN V69.2 HIGH-RISK SEXUAL BEHAVIOR 05/30/2012 ARLENE LEMA APRN V72.31 SPLICING MACHINE OPERATOR AUTOMATIC EXAM, ROUTINE 05/30/2012 ARLENE LEMA APRN V74.5 STD SCREEN 05/30/2012 ARLENE LEMA APRN V76.10 BREAST CANCER SCREENING 05/30/2012 ARLENE LEMA APRN V76.2 CERVICAL CANCER SCREENING (PAP SMEAR) 05/30/2012 ARLENE LEMA APRN 465.9 ACUTE UPPER RESPIRATORY INFECTIONS OF UNSPECIFIED SITE 05/30/2012 ARLENE LEMA APRN V18.0 FAM HX DIABETES MELLITUS 05/30/2012 ARLENE LEMA APRN V69.2 HIGH-RISK SEXUAL BEHAVIOR 05/30/2012 ARLENE LEMA APRN V72.31 SPLICING MACHINE OPERATOR AUTOMATIC EXAM, ROUTINE 05/30/2012 ARLENE LEMA APRN V74.5 STD SCREEN 05/30/2012 ARLENE LEMA APRN V76.10 BREAST CANCER SCREENING 05/30/2012 ARLENE LEMA APRN V76.2 CERVICAL CANCER SCREENING (PAP SMEAR) 05/30/2012 ARLENE LEMA APRN 465.9 ACUTE UPPER RESPIRATORY INFECTIONS OF UNSPECIFIED SITE 05/30/2012 ARLENE LEMA APRN V18.0 FAM HX DIABETES MELLITUS 05/30/2012 ARLENE LEMA APRN V69.2 HIGH-RISK SEXUAL BEHAVIOR 05/30/2012 ARLENE LEMA APRN V72.31 SPLICING MACHINE OPERATOR AUTOMATIC EXAM, ROUTINE 05/30/2012 ARLENE LEMA APRN V74.5 STD SCREEN 05/30/2012 ARLENE LEMA APRN V76.10 BREAST CANCER SCREENING 05/30/2012 ARLENE LEMA APRN V76.2 CERVICAL CANCER SCREENING (PAP SMEAR) 05/30/2012 ARLENE LEMA APRN 465.9 ACUTE UPPER RESPIRATORY INFECTIONS OF UNSPECIFIED SITE 05/30/2012 ARLENE LEMA APRN V18.0 FAM HX DIABETES MELLITUS 05/30/2012 ARLENE LEMA APRN V69.2 HIGH-RISK SEXUAL BEHAVIOR 05/30/2012 ARLENE LEMA APRN V72.31 SPLICING MACHINE OPERATOR AUTOMATIC EXAM, ROUTINE 05/30/2012 ARLENE LEMA APRN V74.5 STD SCREEN 05/30/2012 ARLENE LEMA APRN V76.10 BREAST CANCER SCREENING 05/30/2012 ARLENE LEMA APRN V76.2 CERVICAL CANCER SCREENING (PAP SMEAR) 05/30/2012 ARLENE LEMA APRN 465.9 ACUTE UPPER RESPIRATORY INFECTIONS OF UNSPECIFIED SITE 05/30/2012 ARLENE LEMA APRN V18.0 FAM HX DIABETES MELLITUS 05/30/2012 ARLENE LEMA APRN V69.2 HIGH-RISK SEXUAL BEHAVIOR 05/30/2012 ARLENE LEMA APRN V72.31 SPLICING MACHINE OPERATOR AUTOMATIC EXAM, ROUTINE 05/30/2012 ARLENE LEMA APRN V74.5 STD SCREEN 05/30/2012 ARLENE LEMA APRN V76.10 BREAST CANCER SCREENING 05/30/2012 ARLENE LEMA APRN V76.2 CERVICAL CANCER SCREENING (PAP SMEAR) 05/30/2012 TAN SUGGS, MARC A 465.9 ACUTE UPPER RESPIRATORY INFECTIONS OF UNSPECIFIED SITE 05/30/2012 TAN SUGGS, MARC A V18.0 FAM HX DIABETES MELLITUS 05/30/2012 TAN PEDRON, MARC A V69.2 HIGH-RISK SEXUAL BEHAVIOR 05/30/2012 TAN PEDRON, MARC A V72.31 SPLICING MACHINE OPERATOR AUTOMATIC EXAM, ROUTINE 05/30/2012 TAN PEDRON, MARC A V74.5 STD SCREEN 05/30/2012 TAN SUGGS, MARC A V76.10 BREAST CANCER SCREENING 05/30/2012 TAN SUGGS, MARC A V76.2 CERVICAL CANCER SCREENING (PAP SMEAR) 05/30/2012 DANITZA PEDRON, BRITANY L 465.9 ACUTE UPPER RESPIRATORY INFECTIONS OF UNSPECIFIED SITE 05/30/2012 RENÉL SECURITIES COUNSELOR, BRITANY L V18.0 FAM HX DIABETES MELLITUS 05/30/2012 MADL SECURITIES COUNSELOR, BRITANY L V69.2 HIGH-RISK SEXUAL BEHAVIOR 05/30/2012 MADL SECURITIES COUNSELOR, BRITANY L V72.31 SPLICING MACHINE OPERATOR AUTOMATIC EXAM, ROUTINE 05/30/2012 MADL SECURITIES COUNSELOR, BRITANY L V74.5 STD SCREEN 05/30/2012 RENÉL SECURITIES COUNSELOR, BRITANY L V76.10 BREAST CANCER SCREENING 05/30/2012 RENÉL SECURITIES COUNSELOR, BRITANY L V76.2 CERVICAL CANCER SCREENING (PAP SMEAR) 05/30/2012 RENÉL SECURITIES COUNSELOR, BRITANY L 465.9 ACUTE UPPER RESPIRATORY INFECTIONS OF UNSPECIFIED SITE 05/30/2012 MADL SECURITIES COUNSELOR, BRITANY L V18.0 FAM HX DIABETES MELLITUS 05/30/2012 MADL SECURITIES COUNSELOR, BRITANY L V69.2 HIGH-RISK SEXUAL BEHAVIOR 05/30/2012 MADL SECURITIES COUNSELOR, BRITANY L V72.31 SPLICING MACHINE OPERATOR AUTOMATIC EXAM, ROUTINE 05/30/2012 MADL SECURITIES COUNSELOR, BRITANY L V74.5 STD SCREEN 05/30/2012 MADL SECURITIES COUNSELOR, BRITANY L V76.10 BREAST CANCER SCREENING 05/30/2012 DANITZA PEDRONMARLENIA L V76.2 CERVICAL CANCER SCREENING (PAP SMEAR) 05/30/2012 ERICKA HULL DO K 465.9 ACUTE UPPER RESPIRATORY INFECTIONS OF UNSPECIFIED SITE 05/30/2012 HULL ERICKA WALTERS K V18.0 FAM HX DIABETES MELLITUS 05/30/2012 DELLA ERICKA WALTERS K V69.2 HIGH-RISK SEXUAL BEHAVIOR 05/30/2012 ERICKA HULL DO K V72.31 SPLICING MACHINE OPERATOR AUTOMATIC EXAM, ROUTINE 05/30/2012 ERICKA HULL DO K V74.5 STD SCREEN 05/30/2012 HULL ERICKA WALTERS K V76.10 BREAST CANCER SCREENING 05/30/2012 HULL ERICKA WALTERS K V76.2 CERVICAL CANCER SCREENING (PAP SMEAR) 05/30/2012 DANITZA PEDROBRITANY Wells L 465.9 ACUTE UPPER RESPIRATORY INFECTIONS OF UNSPECIFIED SITE 05/30/2012 DANITZA PEDROMARLENI WellsA L V18.0 FAM HX DIABETES MELLITUS 05/30/2012 DANITZA PEDROMARLENI WellsA L V69.2 HIGH-RISK SEXUAL BEHAVIOR 05/30/2012 RENÉNas SECURITIES COUNSELORMARLENI WellsA L V72.31 SPLICING MACHINE OPERATOR AUTOMATIC EXAM, ROUTINE 05/30/2012 RENÉL SECURITIES COUNSELORMARLENI WellsA L V74.5 STD SCREEN 05/30/2012 DANITZA PEDROMARLENI WellsA L V76.10 BREAST CANCER SCREENING 05/30/2012 DANITZA PEDROMARLENI WellsA L V76.2 CERVICAL CANCER SCREENING (PAP SMEAR) 05/30/2012 465.9 ACUTE UPPER RESPIRATORY INFECTIONS OF UNSPECIFIED SITE 05/30/2012 V18.0 FAM HX DIABETES MELLITUS 05/30/2012 V69.2 HIGH-RISK SEXUAL BEHAVIOR 05/30/2012 V72.31 SPLICING MACHINE OPERATOR AUTOMATIC EXAM, ROUTINE 05/30/2012 V74.5 STD SCREEN 05/30/2012 V76.10 BREAST CANCER SCREENING 05/30/2012 V76.2 CERVICAL CANCER SCREENING (PAP SMEAR) 05/30/2012 [facility] 465.9 ACUTE UPPER RESPIRATORY INFECTIONS OF UNSPECIFIED SITE 05/30/2012 [facility] V18.0 FAM HX DIABETES MELLITUS 05/30/2012 [facility] V69.2 HIGH-RISK SEXUAL BEHAVIOR 05/30/2012 [facility], ERICK R V72.31 SPLICING MACHINE OPERATOR AUTOMATIC EXAM, ROUTINE 05/30/2012 [facility], ERICK R V74.5 STD SCREEN 05/30/2012 [facility], ERICK R V76.10 BREAST CANCER SCREENING 05/30/2012 [facility], ERICK R V76.2 CERVICAL CANCER SCREENING (PAP SMEAR) 05/30/2012 MADL SECURITIES COUNSELOR, BRITANY L 465.9 ACUTE UPPER RESPIRATORY INFECTIONS OF UNSPECIFIED SITE 05/30/2012 MADL SECURITIES COUNSELOR, BRITANY L V18.0 FAM HX DIABETES MELLITUS 05/30/2012 MADL SECURITIES COUNSELOR, BRITANY L V69.2 HIGH-RISK SEXUAL BEHAVIOR 05/30/2012 MADL SECURITIES COUNSELOR, BRITANY L V72.31 SPLICING MACHINE OPERATOR AUTOMATIC EXAM, ROUTINE 05/30/2012 MADL SECURITIES COUNSELOR, BRITANY L V74.5 STD SCREEN 05/30/2012 MADL SECURITIES COUNSELOR, BRITANY L V76.10 BREAST CANCER SCREENING 05/30/2012 MADL SECURITIES COUNSELOR, BRITANY L V76.2 CERVICAL CANCER SCREENING (PAP SMEAR) 05/30/2012 HULL DO ERICKA K 465.9 ACUTE UPPER RESPIRATORY INFECTIONS OF UNSPECIFIED SITE 05/30/2012 HULL DO ERICKA K V18.0 FAM HX DIABETES MELLITUS 05/30/2012 HULL DO ERICKA K V69.2 HIGH-RISK SEXUAL BEHAVIOR 05/30/2012 HULL DO ERICKA K V72.31 SPLICING MACHINE OPERATOR AUTOMATIC EXAM, ROUTINE 05/30/2012 HULL DO ERICKA K V74.5 STD SCREEN 05/30/2012 HULL DO ERICKA K V76.10 BREAST CANCER SCREENING 05/30/2012 HULL DO ERICKA K V76.2 CERVICAL CANCER SCREENING (PAP SMEAR) 05/30/2012 MADL SECURITIES COUNSELOR, BRITANY L 465.9 ACUTE UPPER RESPIRATORY INFECTIONS OF UNSPECIFIED SITE 05/30/2012 MADL SECURITIES COUNSELOR, BRITANY L V18.0 FAM HX DIABETES MELLITUS 05/30/2012 MADL SECURITIES COUNSELOR, BRITANY L V69.2 HIGH-RISK SEXUAL BEHAVIOR 05/30/2012 MADL SECURITIES COUNSELOR, BRITANY L V72.31 SPLICING MACHINE OPERATOR AUTOMATIC EXAM, ROUTINE 05/30/2012 MADL SECURITIES COUNSELOR, BRITANY L V74.5 STD SCREEN 05/30/2012 MADL SECURITIES COUNSELOR, BRITANY L V76.10 BREAST CANCER SCREENING 05/30/2012 MADL SECURITIES COUNSELOR, BRITANY L V76.2 CERVICAL CANCER SCREENING (PAP SMEAR) 05/30/2012 MADL SECURITIES COUNSELOR, BRITANY L 465.9 ACUTE UPPER RESPIRATORY INFECTIONS OF UNSPECIFIED SITE 05/30/2012 MADL SECURITIES COUNSELOR, BRITANY L V18.0 FAM HX DIABETES MELLITUS 05/30/2012 MADL SECURITIES COUNSELOR, BRITANY L V69.2 HIGH-RISK SEXUAL BEHAVIOR 05/30/2012 MADL SECURITIES COUNSELOR, BRITANY L V72.31 SPLICING MACHINE OPERATOR AUTOMATIC EXAM, ROUTINE 05/30/2012 MADL SECURITIES COUNSELOR, BRITANY L V74.5 STD SCREEN 05/30/2012 MADL SECURITIES COUNSELOR, BRITANY L V76.10 BREAST CANCER SCREENING 05/30/2012 MADL SECURITIES COUNSELOR, BRITANY L V76.2 CERVICAL CANCER SCREENING (PAP SMEAR) 05/30/2012 MADL SECURITIES COUNSELOR, BRITANY L 465.9 ACUTE UPPER RESPIRATORY INFECTIONS OF UNSPECIFIED SITE 05/30/2012 MADL SECURITIES COUNSELOR, BRITANY L V18.0 FAM HX DIABETES MELLITUS 05/30/2012 MADL SECURITIES COUNSELOR, BRITANY L V69.2 HIGH-RISK SEXUAL BEHAVIOR 05/30/2012 MADL SECURITIES COUNSELOR, BRITANY L V72.31 SPLICING MACHINE OPERATOR AUTOMATIC EXAM, ROUTINE 05/30/2012 MADL SECURITIES COUNSELOR, BRITANY L V74.5 STD SCREEN 05/30/2012 MADL SECURITIES COUNSELOR, BRITANY L V76.10 BREAST CANCER SCREENING 05/30/2012 MADL SECURITIES COUNSELOR, BRITANY L V76.2 CERVICAL CANCER SCREENING (PAP SMEAR) 05/30/2012 TIFFANI ROSA M 465.9 ACUTE UPPER RESPIRATORY INFECTIONS OF UNSPECIFIED SITE 05/30/2012 TIFFANI ROSA M V18.0 FAM HX DIABETES MELLITUS 05/30/2012 TIFFANI ROSA M V69.2 HIGH-RISK SEXUAL BEHAVIOR 05/30/2012 TIFFANI ROSA M V72.31 SPLICING MACHINE OPERATOR AUTOMATIC EXAM, ROUTINE 05/30/2012 TIFFANI ROSA M V74.5 STD SCREEN 05/30/2012 TIFFANI ROSA M V76.10 BREAST CANCER SCREENING 05/30/2012 TIFFANI ROSA M V76.2 CERVICAL CANCER SCREENING (PAP SMEAR) 05/30/2012 MADL SECURITIES COUNSELOR, BRITANY L 465.9 ACUTE UPPER RESPIRATORY INFECTIONS OF UNSPECIFIED SITE 05/30/2012 MADL SECURITIES COUNSELOR, BRITANY L V18.0 FAM HX DIABETES MELLITUS 05/30/2012 MADL SECURITIES COUNSELOR, BRITANY L V69.2 HIGH-RISK SEXUAL BEHAVIOR 05/30/2012 MADL SECURITIES COUNSELOR, BRITANY L V72.31 SPLICING MACHINE OPERATOR AUTOMATIC EXAM, ROUTINE 05/30/2012 MADL SECURITIES COUNSELOR, BRITANY L V74.5 STD SCREEN 05/30/2012 MADL SECURITIES COUNSELOR, BRITANY L V76.10 BREAST CANCER SCREENING 05/30/2012 MADL SECURITIES COUNSELOR, BRITANY L V76.2 CERVICAL CANCER SCREENING (PAP SMEAR) 05/30/2012 MADL SECURITIES COUNSELOR, BRITANY L 465.9 ACUTE UPPER RESPIRATORY INFECTIONS OF UNSPECIFIED SITE 05/30/2012 MADL SECURITIES COUNSELOR, BRITANY L V18.0 FAM HX DIABETES MELLITUS 05/30/2012 MADL SECURITIES COUNSELOR, BRITANY L V69.2 HIGH-RISK SEXUAL BEHAVIOR 05/30/2012 MADL SECURITIES COUNSELOR, BRITANY L V72.31 SPLICING MACHINE OPERATOR AUTOMATIC EXAM, ROUTINE 05/30/2012 MADL SECURITIES COUNSELOR, BRITANY L V74.5 STD SCREEN 05/30/2012 MADL SECURITIES COUNSELOR, BRITANY L V76.10 BREAST CANCER SCREENING 05/30/2012 MADL SECURITIES COUNSELOR, BRITANY L V76.2 CERVICAL CANCER SCREENING (PAP SMEAR) 08/06/2012 NAY PALOMO APRN S 477.0 ALLERGIC RHINITIS DUE TO POLLEN 08/06/2012 NAY PALOMO APRN S 599.0 URINARY TRACT INFECTION 08/06/2012 NAY PALOMO APRN S 616.10 VAGINITIS VULVOVAGINITIS UNSPECIFIED 08/06/2012 NAY PALOMO APRN S 788.1 DYSURIA 08/06/2012 477.0 ALLERGIC RHINITIS DUE TO POLLEN 08/06/2012 599.0 URINARY TRACT INFECTION 08/06/2012 616.10 VAGINITIS VULVOVAGINITIS UNSPECIFIED 08/06/2012 788.1 DYSURIA 08/06/2012 477.0 ALLERGIC RHINITIS DUE TO POLLEN 08/06/2012 599.0 URINARY TRACT INFECTION 08/06/2012 616.10 VAGINITIS VULVOVAGINITIS UNSPECIFIED 08/06/2012 788.1 DYSURIA 08/06/2012 477.0 ALLERGIC RHINITIS DUE TO POLLEN 08/06/2012 599.0 URINARY TRACT INFECTION 08/06/2012 616.10 VAGINITIS VULVOVAGINITIS UNSPECIFIED 08/06/2012 788.1 DYSURIA 08/06/2012 477.0 ALLERGIC RHINITIS DUE TO POLLEN 08/06/2012 599.0 URINARY TRACT INFECTION 08/06/2012 616.10 VAGINITIS VULVOVAGINITIS UNSPECIFIED 08/06/2012 788.1 DYSURIA 08/06/2012 477.0 ALLERGIC RHINITIS DUE TO POLLEN 08/06/2012 599.0 URINARY TRACT INFECTION 08/06/2012 616.10 VAGINITIS VULVOVAGINITIS UNSPECIFIED 08/06/2012 788.1 DYSURIA 08/06/2012 477.0 ALLERGIC RHINITIS DUE TO POLLEN 08/06/2012 599.0 URINARY TRACT INFECTION 08/06/2012 616.10 VAGINITIS VULVOVAGINITIS UNSPECIFIED 08/06/2012 788.1 DYSURIA 08/06/2012 ARLENE LEMA APRN 477.0 ALLERGIC RHINITIS DUE TO POLLEN 08/06/2012 ARLENE LEMA APRN 599.0 URINARY TRACT INFECTION 08/06/2012 ARLENE LEMA APRN D 616.10 VAGINITIS VULVOVAGINITIS UNSPECIFIED 08/06/2012 ARLENE LEMA APRN D 788.1 DYSURIA 08/06/2012 ARLENE LEMA APRN D 477.0 ALLERGIC RHINITIS DUE TO POLLEN 08/06/2012 ARLENE LEMA APRN D 599.0 URINARY TRACT INFECTION 08/06/2012 ARLENE LEMA APRN D 616.10 VAGINITIS VULVOVAGINITIS UNSPECIFIED 08/06/2012 ARLENE LEMA APRN D 788.1 DYSURIA 08/06/2012 ARLENE LEMA APRN D 477.0 ALLERGIC RHINITIS DUE TO POLLEN 08/06/2012 [employer] COUNSELOR, ARLENE D 599.0 URINARY TRACT INFECTION 08/06/2012 PITA SECURITIES COUNSELORCRISTIAN WellsARLENE D 616.10 VAGINITIS VULVOVAGINITIS UNSPECIFIED 08/06/2012 CRISTIAN LEMA APRNBETH D 788.1 DYSURIA 08/06/2012 PITA SECURITIES COUNSELORPILAR WellsARLENE D 477.0 ALLERGIC RHINITIS DUE TO POLLEN 08/06/2012 CRISTIAN LEMA APRNBETH D 599.0 URINARY TRACT INFECTION 08/06/2012 CRISTIAN LEMA APRNBETH D 616.10 VAGINITIS VULVOVAGINITIS UNSPECIFIED 08/06/2012 CRISTIAN LEMA APRNBETH D 788.1 DYSURIA 08/06/2012 CRISTIAN LEMA APRNBETH D 477.0 ALLERGIC RHINITIS DUE TO POLLEN 08/06/2012 CRISTIAN LEMA APRNBETH D 599.0 URINARY TRACT INFECTION 08/06/2012 CRISTIAN LEMA APRNBETH D 616.10 VAGINITIS VULVOVAGINITIS UNSPECIFIED 08/06/2012 CRISTIAN LEMA APRNBETH D 788.1 DYSURIA 08/06/2012 TAN SECURITIES COUNSELOR, MARC A 477.0 ALLERGIC RHINITIS DUE TO POLLEN 08/06/2012 TAN SECURITIES COUNSELOR, MARC A 599.0 URINARY TRACT INFECTION 08/06/2012 TAN SECURITIES COUNSELOR, MARC A 616.10 VAGINITIS VULVOVAGINITIS UNSPECIFIED 08/06/2012 TAN SECURITIES COUNSELOR, MARC A 788.1 DYSURIA 08/06/2012 MADL SECURITIES COUNSELOR, BRITANY L 477.0 ALLERGIC RHINITIS DUE TO POLLEN 08/06/2012 MADL SECURITIES COUNSELOR, BRITANY L 599.0 URINARY TRACT INFECTION 08/06/2012 MADL SECURITIES COUNSELOR, BRITANY L 616.10 VAGINITIS VULVOVAGINITIS UNSPECIFIED 08/06/2012 MADL SECURITIES COUNSELOR, BRITANY L 788.1 DYSURIA 08/06/2012 MADL SECURITIES COUNSELOR, BRITANY L 477.0 ALLERGIC RHINITIS DUE TO POLLEN 08/06/2012 MADL SECURITIES COUNSELOR, BRITANY L 599.0 URINARY TRACT INFECTION 08/06/2012 MADL SECURITIES COUNSELOR, BRITANY L 616.10 VAGINITIS VULVOVAGINITIS UNSPECIFIED 08/06/2012 MADL SECURITIES COUNSELOR, BRITANY L 788.1 DYSURIA 08/06/2012 HULL DO, ERICKA K 477.0 ALLERGIC RHINITIS DUE TO POLLEN 08/06/2012 HULL DO, ERICKA K 599.0 URINARY TRACT INFECTION 08/06/2012 HULL DO, ERICKA K 616.10 VAGINITIS VULVOVAGINITIS UNSPECIFIED 08/06/2012 HULL DO, ERICKA K 788.1 DYSURIA 08/06/2012 MADL SECURITIES COUNSELOR, BRITANY L 477.0 ALLERGIC RHINITIS DUE TO POLLEN 08/06/2012 MADL SECURITIES COUNSELOR, BRITANY L 599.0 URINARY TRACT INFECTION 08/06/2012 MADL SECURITIES COUNSELOR, BRITANY L 616.10 VAGINITIS VULVOVAGINITIS UNSPECIFIED 08/06/2012 MADL SECURITIES COUNSELOR, BRITANY L 788.1 DYSURIA 08/06/2012 477.0 ALLERGIC RHINITIS DUE TO POLLEN 08/06/2012 599.0 URINARY TRACT INFECTION 08/06/2012 616.10 VAGINITIS VULVOVAGINITIS UNSPECIFIED 08/06/2012 788.1 DYSURIA 08/06/2012 [facility], ERICK R 477.0 ALLERGIC RHINITIS DUE TO POLLEN 08/06/2012 [facility], ERICK R 599.0 URINARY TRACT INFECTION 08/06/2012 [facility], ERICK R 616.10 VAGINITIS VULVOVAGINITIS UNSPECIFIED 08/06/2012 [facility], ERICK R 788.1 DYSURIA 08/06/2012 MADL [employer]URITIES COUNSELOR, BRITANY L 477.0 ALLERGIC RHINITIS DUE TO POLLEN 08/06/2012 MADL SECURITIES COUNSELOR, BRITANY L 599.0 URINARY TRACT INFECTION 08/06/2012 MADL SECURITIES COUNSELOR, BRITANY L 616.10 VAGINITIS VULVOVAGINITIS UNSPECIFIED 08/06/2012 MADL SECURITIES COUNSELOR, BRITANY L 788.1 DYSURIA 08/06/2012 HULL DO, ERICKA K 477.0 ALLERGIC RHINITIS DUE TO POLLEN 08/06/2012 HULL DO, ERICKA K 599.0 URINARY TRACT INFECTION 08/06/2012 HULL DO, ERICKA K 616.10 VAGINITIS VULVOVAGINITIS UNSPECIFIED 08/06/2012 HULL DO, ERICKA K 788.1 DYSURIA 08/06/2012 MADL SECURITIES COUNSELOR, BRITANY L 477.0 ALLERGIC RHINITIS DUE TO POLLEN 08/06/2012 MADL SECURITIES COUNSELOR, BRITANY L 599.0 URINARY TRACT INFECTION 08/06/2012 MADL SECURITIES COUNSELOR, BRITANY L 616.10 VAGINITIS VULVOVAGINITIS UNSPECIFIED 08/06/2012 MADL SECURITIES COUNSELOR, BRITANY L 788.1 DYSURIA 08/06/2012 MADL SECURITIES COUNSELOR, BRITANY L 477.0 ALLERGIC RHINITIS DUE TO POLLEN 08/06/2012 MADL SECURITIES COUNSELOR, BRITANY L 599.0 URINARY TRACT INFECTION 08/06/2012 MADL SECURITIES COUNSELOR, BRITANY L 616.10 VAGINITIS VULVOVAGINITIS UNSPECIFIED 08/06/2012 MADL SECURITIES COUNSELOR, BRITANY L 788.1 DYSURIA 08/06/2012 MADL SECURITIES COUNSELOR, BRITANY L 477.0 ALLERGIC RHINITIS DUE TO POLLEN 08/06/2012 MADL SECURITIES COUNSELOR, BRITANY L 599.0 URINARY TRACT INFECTION 08/06/2012 MADL SECURITIES COUNSELOR, BRITANY L 616.10 VAGINITIS VULVOVAGINITIS UNSPECIFIED 08/06/2012 MADL SECURITIES COUNSELOR, BRITANY L 788.1 DYSURIA 08/06/2012 RACHAEL BAEZ, TIFFANI M 477.0 ALLERGIC RHINITIS DUE TO POLLEN 08/06/2012 RACHAEL BAEZ, TIFFANI M 599.0 URINARY TRACT INFECTION 08/06/2012 RACHAEL BAEZ, TIFFANI M 616.10 VAGINITIS VULVOVAGINITIS UNSPECIFIED 08/06/2012 RACHAEL BAEZ, TIFFANI M 788.1 DYSURIA 08/06/2012 MADL SECURITIES COUNSELOR, BRITANY L 477.0 ALLERGIC RHINITIS DUE TO POLLEN 08/06/2012 MADL SECURITIES COUNSELOR, BRITANY L 599.0 URINARY TRACT INFECTION 08/06/2012 MADL SECURITIES COUNSELOR, BRITANY L 616.10 VAGINITIS VULVOVAGINITIS UNSPECIFIED 08/06/2012 MADL SECURITIES COUNSELOR, BRITANY L 788.1 DYSURIA 08/06/2012 MADL SECURITIES COUNSELOR, BRITANY L 477.0 ALLERGIC RHINITIS DUE TO POLLEN 08/06/2012 MADL SECURITIES COUNSELOR, BRITANY L 599.0 URINARY TRACT INFECTION 08/06/2012 MADL SECURITIES COUNSELOR, BRITANY L 616.10 VAGINITIS VULVOVAGINITIS UNSPECIFIED 08/06/2012 MADL SECURITIES COUNSELOR, BRIATNY L 788.1 DYSURIA 10/24/2012 623.5 LEUKORRHEA NOT SPECIFIED INFECTIVE 10/24/2012 623.5 LEUKORRHEA NOT SPECIFIED INFECTIVE 10/24/2012 623.5 LEUKORRHEA NOT SPECIFIED INFECTIVE 10/24/2012 623.5 LEUKORRHEA NOT SPECIFIED INFECTIVE 10/24/2012 GARTON SECURITIES COUNSELOR, ARLENE D 623.5 LEUKORRHEA NOT SPECIFIED INFECTIVE 10/24/2012 GARTON SECURITIES COUNSELOR, ARLENE D 623.5 LEUKORRHEA NOT SPECIFIED INFECTIVE 10/24/2012 GARTON SECURITIES COUNSELOR, ARLENE D 623.5 LEUKORRHEA NOT SPECIFIED INFECTIVE 10/24/2012 GARTON SECURITIES COUNSELOR, ARLENE D 623.5 LEUKORRHEA NOT SPECIFIED INFECTIVE 10/24/2012 GARTON SECURITIES COUNSELOR, ARLENE D 623.5 LEUKORRHEA NOT SPECIFIED INFECTIVE 10/24/2012 TAN SECURITIES COUNSELOR, MARC A 623.5 LEUKORRHEA NOT SPECIFIED INFECTIVE 10/24/2012 MADL SECURITIES COUNSELOR, BRITANY L 623.5 LEUKORRHEA NOT SPECIFIED INFECTIVE 10/24/2012 MADL SECURITIES COUNSELOR, BRITANY L 623.5 LEUKORRHEA NOT SPECIFIED INFECTIVE 10/24/2012 ERICKA HULL DO 623.5 LEUKORRHEA NOT SPECIFIED INFECTIVE 10/24/2012 MADL SECURITIES COUNSELOR, BRITANY L 623.5 LEUKORRHEA NOT SPECIFIED INFECTIVE 10/24/2012 623.5 LEUKORRHEA NOT SPECIFIED INFECTIVE 10/24/2012 [facility], ERICK Silver 623.5 LEUKORRHEA NOT SPECIFIED INFECTIVE 10/24/2012 MADL SECURITIES COUNSELOR, BRITANY L 623.5 LEUKORRHEA NOT SPECIFIED INFECTIVE 10/24/2012 ERICKA HULL DO 623.5 LEUKORRHEA NOT SPECIFIED INFECTIVE 10/24/2012 MADL SECURITIES COUNSELOR, BRITANY L 623.5 LEUKORRHEA NOT SPECIFIED INFECTIVE 10/24/2012 MADL SECURITIES COUNSELOR, BRITANY L 623.5 LEUKORRHEA NOT SPECIFIED INFECTIVE 10/24/2012 MADL SECURITIES COUNSELOR, BRITANY L 623.5 LEUKORRHEA NOT SPECIFIED INFECTIVE 10/24/2012 TIFFANI ROSA M 623.5 LEUKORRHEA NOT SPECIFIED INFECTIVE 10/24/2012 MADL SECURITIES COUNSELOR, BRITANY L 623.5 LEUKORRHEA NOT SPECIFIED INFECTIVE 10/24/2012 MADL SECURITIES COUNSELOR, BRITANY L 623.5 LEUKORRHEA NOT SPECIFIED INFECTIVE 11/11/2012 296.90 MOOD DISORDER 11/11/2012 682.0 ABCESS, FACE 11/11/2012 789.02 ABDOMINAL PAIN LEFT UPPER QUADRANT 11/11/2012 296.90 MOOD DISORDER 11/11/2012 682.0 ABCESS, FACE 11/11/2012 789.02 ABDOMINAL PAIN LEFT UPPER QUADRANT 11/11/2012 ARLENE LEMA APRN D 296.90 MOOD DISORDER 11/11/2012 ARLENE LEMA APRN D 682.0 ABCESS, FACE 11/11/2012 ARLENE LEMA APRN D 789.02 ABDOMINAL PAIN LEFT UPPER QUADRANT 11/11/2012 ARLENE LEMA APRN D 296.90 MOOD DISORDER 11/11/2012 ARLENE LEMA APRN D 682.0 ABCESS, FACE 11/11/2012 ARLENE LEMA APRN D 789.02 ABDOMINAL PAIN LEFT UPPER QUADRANT 11/11/2012 ARLENE LEMA APRN D 296.90 MOOD DISORDER 11/11/2012 ARLENE LEMA APRN D 682.0 ABCESS, FACE 11/11/2012 ARLENE LEMA APRN D 789.02 ABDOMINAL PAIN LEFT UPPER QUADRANT 11/11/2012 ARLENE LEMA APRN D 296.90 MOOD DISORDER 11/11/2012 ARLENE LEMA APRN D 682.0 ABCESS, FACE 11/11/2012 ARLENE LEMA APRN D 789.02 ABDOMINAL PAIN LEFT UPPER QUADRANT 11/11/2012 ARLENE LEMA APRN D 296.90 MOOD DISORDER 11/11/2012 ARLENE LEMA APRN D 682.0 ABCESS, FACE 11/11/2012 PITA SUGGSARLENE 789.02 ABDOMINAL PAIN LEFT UPPER QUADRANT 11/11/2012 TAN SECURITIES COUNSELOR, MARC A 296.90 MOOD DISORDER 11/11/2012 TAN SECURITIES COUNSELOR, MARC A 682.0 ABCESS, FACE 11/11/2012 TAN SECURITIES COUNSELOR, MARC A 789.02 ABDOMINAL PAIN LEFT UPPER QUADRANT 11/11/2012 MADL SECURITIES COUNSELOR, BRITANY L 296.90 MOOD DISORDER 11/11/2012 MADL SECURITIES COUNSELOR, BRITANY L 682.0 ABCESS, FACE 11/11/2012 MADL SECURITIES COUNSELOR, BRITANY L 789.02 ABDOMINAL PAIN LEFT UPPER QUADRANT 11/11/2012 MADL SECURITIES COUNSELOR, BRITANY L 296.90 MOOD DISORDER 11/11/2012 MADL SECURITIES COUNSELOR, BRITANY L 682.0 ABCESS, FACE 11/11/2012 MADL SECURITIES COUNSELOR, BRITANY L 789.02 ABDOMINAL PAIN LEFT UPPER QUADRANT 11/11/2012 HULL DO, ERICKA K 296.90 MOOD DISORDER 11/11/2012 HULL DO, ERICKA K 682.0 ABCESS, FACE 11/11/2012 HULL DO, ERICKA K 789.02 ABDOMINAL PAIN LEFT UPPER QUADRANT 11/11/2012 MADL SECURITIES COUNSELOR, BRITANY L 296.90 MOOD DISORDER 11/11/2012 MADL SECURITIES COUNSELOR, BRITANY L 682.0 ABCESS, FACE 11/11/2012 MADL SECURITIES COUNSELOR, BRITANY L 789.02 ABDOMINAL PAIN LEFT UPPER QUADRANT 11/11/2012 296.90 MOOD DISORDER 11/11/2012 682.0 ABCESS, FACE 11/11/2012 789.02 ABDOMINAL PAIN LEFT UPPER QUADRANT 11/11/2012 [facility], ERICK R 296.90 MOOD DISORDER 11/11/2012 [facility], ERICK R 682.0 ABCESS, FACE 11/11/2012 [facility], ERICK R 789.02 ABDOMINAL PAIN LEFT UPPER QUADRANT 11/11/2012 MADL SECURITIES COUNSELOR, BRITANY L 296.90 MOOD DISORDER 11/11/2012 MADL SECURITIES COUNSELOR, BRITANY L 682.0 ABCESS, FACE 11/11/2012 MADL SECURITIES COUNSELOR, BRITANY L 789.02 ABDOMINAL PAIN LEFT UPPER QUADRANT 11/11/2012 HULL DO, ERICKA K 296.90 MOOD DISORDER 11/11/2012 HULL DO, ERICKA K 682.0 ABCESS, FACE 11/11/2012 HULL DO, ERICKA K 789.02 ABDOMINAL PAIN LEFT UPPER QUADRANT 11/11/2012 MADL SECURITIES COUNSELOR, BRITANY L 296.90 MOOD DISORDER 11/11/2012 MADL SECURITIES COUNSELOR, BRITANY L 682.0 ABCESS, FACE 11/11/2012 MADL SECURITIES COUNSELOR, BRITANY L 789.02 ABDOMINAL PAIN LEFT UPPER QUADRANT 11/11/2012 MADL SECURITIES COUNSELOR, BRITANY L 296.90 MOOD DISORDER 11/11/2012 MADL SECURITIES COUNSELOR, BRITANY L 682.0 ABCESS, FACE 11/11/2012 MADL SECURITIES COUNSELOR, BRITANY L 789.02 ABDOMINAL PAIN LEFT UPPER QUADRANT 11/11/2012 MADL SECURITIES COUNSELOR, BRITANY L 296.90 MOOD DISORDER 11/11/2012 MADL SECURITIES COUNSELOR, BRITANY L 682.0 ABCESS, FACE 11/11/2012 MADL SECURITIES COUNSELOR, BRITANY L 789.02 ABDOMINAL PAIN LEFT UPPER QUADRANT 11/11/2012 RACHAEL WEATHERIZATION DIRECTOR, TIFFANI M 296.90 MOOD DISORDER 11/11/2012 RACHAEL WEATHERIZATION DIRECTOR, TIFFANI M 682.0 ABCESS, FACE 11/11/2012 RACHAEL WEATHERIZATION DIRECTOR, TIFFANI M 789.02 ABDOMINAL PAIN LEFT UPPER QUADRANT 11/11/2012 MADL SECURITIES COUNSELOR, BRITANY L 296.90 MOOD DISORDER 11/11/2012 MADL SECURITIES COUNSELOR, BRITANY L 682.0 ABCESS, FACE 11/11/2012 MADL SECURITIES COUNSELOR, BRITANY L 789.02 ABDOMINAL PAIN LEFT UPPER QUADRANT 11/11/2012 MADL SECURITIES COUNSELOR, BRITANY L 296.90 MOOD DISORDER 11/11/2012 MADL SECURITIES COUNSELOR, BRITANY L 682.0 ABCESS, FACE 11/11/2012 MADL SECURITIES COUNSELOR, BRITANY L 789.02 ABDOMINAL PAIN LEFT UPPER QUADRANT 12/06/2012 KIMI MCKEON, LULY T Ot 724.1 PAIN IN THORACIC SPINE 12/17/2012 LULY BOLDEN MD Ot 599.0 URIN TRACT INFECTION NOS 12/17/2012 KIMI MCKEON, LULY Lin Ot 787.01 NAUSEA WITH VOMITING 12/17/2012 KIMI MCKEON, LULY Lin Ot 787.3 FLATUL/ERUCTAT/GAS PAIN 12/17/2012 KIMI MCKEON, LULY Lin Ot 787.91 DIARRHEA 12/27/2012 COSENS DO, JACQUELINE L Ot 723.1 CERVICALGIA 12/27/2012 COSENS DO, JACQUELINE L Ot 724.1 PAIN IN THORACIC SPINE 12/27/2012 COS DO, JACQUELINE L Ot V57.1 PHYSICAL THERAPY NEC 03/26/2013 ARLENE LEMA APRN 786.2 COUGH 03/26/2013 ARLENE LEMA APRN 786.2 COUGH 03/26/2013 ARLENE LMEA APRN D 786.2 COUGH 03/26/2013 MARC MADDOX APRN A 786.2 COUGH 03/26/2013 MADL SECURITIES COUNSELOR, BRITANY L 786.2 COUGH 03/26/2013 MADL SECURITIES COUNSELOR, BRITANY L 786.2 COUGH 03/26/2013 HULL DO, ERICKA K 786.2 COUGH 03/26/2013 MADL SECURITIES COUNSELOR, BRITANY L 786.2 COUGH 03/26/2013 786.2 COUGH 03/26/2013 [facility], ERICK Silver 786.2 COUGH 03/26/2013 MADL SECURITIES COUNSELOR, BRITANY L 786.2 COUGH 03/26/2013 HULL DO, ERICKA K 786.2 COUGH 03/26/2013 MADL SECURITIES COUNSELOR, BRITANY L 786.2 COUGH 03/26/2013 MADL SECURITIES COUNSELOR, BRITANY L 786.2 COUGH 03/26/2013 MADL SECURITIES COUNSELOR, BRITANY L 786.2 COUGH 03/26/2013 TIFFANI ROSA 786.2 COUGH 03/26/2013 MADL SECURITIES COUNSELOR, BRITANY L 786.2 COUGH 03/26/2013 MADL SECURITIES COUNSELOR, BRITANY L 786.2 COUGH 09/30/2013 MARC MADDOX APRN A 564.1 IRRITABLE BOWEL SYNDROME 09/30/2013 TAN SECURITIES COUNSELOR, MARC A 705.83 HIDRADENITIS 09/30/2013 MADL SECURITIES COUNSELOR, BRITANY L 564.1 IRRITABLE BOWEL SYNDROME 09/30/2013 MADL SECURITIES COUNSELOR, BRITANY L 705.83 HIDRADENITIS 09/30/2013 MADL SECURITIES COUNSELOR, BRITANY L 564.1 IRRITABLE BOWEL SYNDROME 09/30/2013 MADL SECURITIES COUNSELOR, BRITANY L 705.83 HIDRADENITIS 09/30/2013 HULL DO ERICKA K 564.1 IRRITABLE BOWEL SYNDROME 09/30/2013 HULL DO, ERICKA K 705.83 HIDRADENITIS 09/30/2013 MADL SECURITIES COUNSELOR, BRITANY L 564.1 IRRITABLE BOWEL SYNDROME 09/30/2013 MADL SECURITIES COUNSELOR, BRITANY L 705.83 HIDRADENITIS 09/30/2013 564.1 IRRITABLE BOWEL SYNDROME 09/30/2013 705.83 HIDRADENITIS 09/30/2013 [facility], ERICK R 564.1 IRRITABLE BOWEL SYNDROME 09/30/2013 [facility], ERICK R 705.83 HIDRADENITIS 09/30/2013 MADL SECURITIES COUNSELOR, BRITANY L 564.1 IRRITABLE BOWEL SYNDROME 09/30/2013 MADL SECURITIES COUNSELOR, BRITANY L 705.83 HIDRADENITIS 09/30/2013 HULL DO, ERICKA K 564.1 IRRITABLE BOWEL SYNDROME 09/30/2013 HULL DO ERICKA K 705.83 HIDRADENITIS 09/30/2013 MADL SECURITIES COUNSELOR, BRITANY L 564.1 IRRITABLE BOWEL SYNDROME 09/30/2013 MADL SECURITIES COUNSELOR, BRITANY L 705.83 HIDRADENITIS 09/30/2013 MADL SECURITIES COUNSELOR, BRITANY L 564.1 IRRITABLE BOWEL SYNDROME 09/30/2013 MADL SECURITIES COUNSELOR, BRITANY L 705.83 HIDRADENITIS 09/30/2013 MADL SECURITIES COUNSELOR, BRITANY L 564.1 IRRITABLE BOWEL SYNDROME 09/30/2013 MADL SECURITIES COUNSELOR, BRITANY L 705.83 HIDRADENITIS 09/30/2013 TIFFANI ROSA 564.1 IRRITABLE BOWEL SYNDROME 09/30/2013 TIFFANI ROSA 705.83 HIDRADENITIS 09/30/2013 MADL SECURITIES COUNSELOR, BRITANY L 564.1 IRRITABLE BOWEL SYNDROME 09/30/2013 MADL SECURITIES COUNSELOR, BRITANY L 705.83 HIDRADENITIS 09/30/2013 MADL SECURITIES COUNSELOR, BRITANY L 564.1 IRRITABLE BOWEL SYNDROME 09/30/2013 MADL SECURITIES COUNSELOR, BRITANY L 705.83 HIDRADENITIS 10/01/2013 [place] SUGGS MARC A V65.42 COUNSELING - SMOKING CESSATION 10/01/2013 MADL SECURITIES COUNSELOR, BRITANY L V65.42 COUNSELING - SMOKING CESSATION 10/01/2013 MADL SECURITIES COUNSELOR, BRITANY L V65.42 COUNSELING - SMOKING CESSATION 10/01/2013 ERICKA HULL DO K V65.42 COUNSELING - SMOKING CESSATION 10/01/2013 MADL SECURITIES COUNSELOR, BRITANY L V65.42 COUNSELING - SMOKING CESSATION 10/01/2013 V65.42 COUNSELING - SMOKING CESSATION 10/01/2013 [facility], ERICK R V65.42 COUNSELING - SMOKING CESSATION 10/01/2013 MADL SECURITIES COUNSELOR, BRITANY L V65.42 COUNSELING - SMOKING CESSATION 10/01/2013 ERICKA HULL DO K V65.42 COUNSELING - SMOKING CESSATION 10/01/2013 MADL SECURITIES COUNSELOR, BRITANY L V65.42 COUNSELING - SMOKING CESSATION 10/01/2013 MADL SECURITIES COUNSELOR, BRITANY L V65.42 COUNSELING - SMOKING CESSATION 10/01/2013 MADL SECURITIES COUNSELOR, BRITANY L V65.42 COUNSELING - SMOKING CESSATION 10/01/2013 TIFFANI ROSA V65.42 COUNSELING - SMOKING CESSATION 10/01/2013 MADL SECURITIES COUNSELOR, BRITANY L V65.42 COUNSELING - SMOKING CESSATION 10/01/2013 MADL SECURITIES COUNSELOR, BRITANY L V65.42 COUNSELING - SMOKING CESSATION 10/20/2013 MADL SECURITIES COUNSELOR, BRITANY L 789.00 ABDOMINAL PAIN UNSPECIFIED SITE 10/20/2013 MADL SECURITIES COUNSELOR, BRITANY L 789.00 ABDOMINAL PAIN UNSPECIFIED SITE 10/20/2013 ERICKA HULL DO K 789.00 ABDOMINAL PAIN UNSPECIFIED SITE 10/20/2013 MADL SECURITIES COUNSELOR, BRITANY L 789.00 ABDOMINAL PAIN UNSPECIFIED SITE 10/20/2013 789.00 ABDOMINAL PAIN UNSPECIFIED SITE 10/20/2013 [facility], ERICK R 789.00 ABDOMINAL PAIN UNSPECIFIED SITE 10/20/2013 MADL SECURITIES COUNSELOR, BRITANY L 789.00 ABDOMINAL PAIN UNSPECIFIED SITE 10/20/2013 HULL DO, ERICKA K 789.00 ABDOMINAL PAIN UNSPECIFIED SITE 10/20/2013 MADL SECURITIES COUNSELOR, BRITANY L 789.00 ABDOMINAL PAIN UNSPECIFIED SITE 10/20/2013 MADL SECURITIES COUNSELOR, BRITANY L 789.00 ABDOMINAL PAIN UNSPECIFIED SITE 10/20/2013 MADL SECURITIES COUNSELOR, BRITANY L 789.00 ABDOMINAL PAIN UNSPECIFIED SITE 10/20/2013 TIFFANI ROSA 789.00 ABDOMINAL PAIN UNSPECIFIED SITE 10/20/2013 MADL SECURITIES COUNSELOR, BRITANY L 789.00 ABDOMINAL PAIN UNSPECIFIED SITE 10/20/2013 MADL SECURITIES COUNSELOR, BRITANY L 789.00 ABDOMINAL PAIN UNSPECIFIED SITE 10/28/2013 MADL SECURITIES COUNSELOR, BRITANY L 625.9 PELVIC PAIN 10/28/2013 MADL SECURITIES COUNSELOR, BRITANY L 789.07 ABDOMINAL PAIN GENERALIZED 10/28/2013 HULL DO, ERICKA K 625.9 PELVIC PAIN 10/28/2013 HULL DO, ERICKA K 789.07 ABDOMINAL PAIN GENERALIZED 10/28/2013 MADL SECURITIES COUNSELOR, BRITANY L 625.9 PELVIC PAIN 10/28/2013 MADL SECURITIES COUNSELOR, BRITANY L 789.07 ABDOMINAL PAIN GENERALIZED 10/28/2013 625.9 PELVIC PAIN 10/28/2013 789.07 ABDOMINAL PAIN GENERALIZED 10/28/2013 [facility], ERICK R 625.9 PELVIC PAIN 10/28/2013 [facility], ERICK R 789.07 ABDOMINAL PAIN GENERALIZED 10/28/2013 MADL SECURITIES COUNSELOR, BRITANY L 625.9 PELVIC PAIN 10/28/2013 MADL SECURITIES COUNSELOR, BRITANY L 789.07 ABDOMINAL PAIN GENERALIZED 10/28/2013 HULL DO, ERICKA K 625.9 PELVIC PAIN 10/28/2013 HULL DO, ERICKA K 789.07 ABDOMINAL PAIN GENERALIZED 10/28/2013 MADL SECURITIES COUNSELOR, BRITANY L 625.9 PELVIC PAIN 10/28/2013 MADL SECURITIES COUNSELOR, BRITANY L 789.07 ABDOMINAL PAIN GENERALIZED 10/28/2013 MADL SECURITIES COUNSELOR, BRITANY L 625.9 PELVIC PAIN 10/28/2013 MADL SECURITIES COUNSELOR, BRITANY L 789.07 ABDOMINAL PAIN GENERALIZED 10/28/2013 MADL SECURITIES COUNSELOR, BRITANY L 625.9 PELVIC PAIN 10/28/2013 MADL SECURITIES COUNSELOR, BRITANY L 789.07 ABDOMINAL PAIN GENERALIZED 10/28/2013 RACHAEL WEATHERIZATION DIRECTOR, TIFFANI M 625.9 PELVIC PAIN 10/28/2013 RACHALE WEATHERIZATION DIRECTOR, TIFFANI M 789.07 ABDOMINAL PAIN GENERALIZED 10/28/2013 MADL SECURITIES COUNSELOR, BRITANY L 625.9 PELVIC PAIN 10/28/2013 MADL SECURITIES COUNSELOR, BRITANY L 789.07 ABDOMINAL PAIN GENERALIZED 10/28/2013 MADL SECURITIES COUNSELOR, BRITANY L 625.9 PELVIC PAIN 10/28/2013 MADL SECURITIES COUNSELOR, BRITANY L 789.07 ABDOMINAL PAIN GENERALIZED 10/29/2013 MADL SECURITIES COUNSELOR, BRITANY L 465.9 UPPER RESPIRATORY INFECTION 10/29/2013 MADL SECURITIES COUNSELOR, BRITANY L 564.00 CONSTIPATION 10/29/2013 HLUL DO, ERIKCA K 465.9 UPPER RESPIRATORY INFECTION 10/29/2013 HULL DO, ERICKA K 564.00 CONSTIPATION 10/29/2013 MADL SECURITIES COUNSELOR, BRITANY L 465.9 UPPER RESPIRATORY INFECTION 10/29/2013 MADL SECURITIES COUNSELOR, BRITANY L 564.00 CONSTIPATION 10/29/2013 465.9 UPPER RESPIRATORY INFECTION 10/29/2013 564.00 CONSTIPATION 10/29/2013 [facility], ERICK R 465.9 UPPER RESPIRATORY INFECTION 10/29/2013 [facility], ERICK R 564.00 CONSTIPATION 10/29/2013 MADL SECURITIES COUNSELOR, BRITANY L 465.9 UPPER RESPIRATORY INFECTION 10/29/2013 MADL SECURITIES COUNSELOR, BRITANY L 564.00 CONSTIPATION 10/29/2013 HULL DO, ERICKA K 465.9 UPPER RESPIRATORY INFECTION 10/29/2013 HULL DO, ERICKA K 564.00 CONSTIPATION 10/29/2013 MADL SECURITIES COUNSELOR, BRITANY L 465.9 UPPER RESPIRATORY INFECTION 10/29/2013 MADL SECURITIES COUNSELOR, BRITANY L 564.00 CONSTIPATION 10/29/2013 MADL SECURITIES COUNSELOR, BRITANY L 465.9 UPPER RESPIRATORY INFECTION 10/29/2013 MADL SECURITIES COUNSELOR, BRITANY L 564.00 CONSTIPATION 10/29/2013 MADL SECURITIES COUNSELOR, BRITANY L 465.9 UPPER RESPIRATORY INFECTION 10/29/2013 MADL SECURITIES COUNSELOR, BRITANY L 564.00 CONSTIPATION 10/29/2013 TIFFANI RSOA M 465.9 UPPER RESPIRATORY INFECTION 10/29/2013 RACHAEL BAEZ, TIFFANI M 564.00 CONSTIPATION 10/29/2013 MADL SECURITIES COUNSELOR, BRITANY L 465.9 UPPER RESPIRATORY INFECTION 10/29/2013 MADL SECURITIES COUNSELOR, BRITANY L 564.00 CONSTIPATION 10/29/2013 MADL SECURITIES COUNSELOR, BRITANY L 465.9 UPPER RESPIRATORY INFECTION 10/29/2013 MADL SECURITIES COUNSELOR, BRITANY L 564.00 CONSTIPATION 11/10/2013 MADL SECURITIES COUNSELOR, BRITANY L 461.9 SINUSITIS ACUTE 11/10/2013 461.9 SINUSITIS ACUTE 11/10/2013 [facility], ERICK R 461.9 SINUSITIS ACUTE 11/10/2013 MADL SECURITIES COUNSELOR, BRITANY L 461.9 SINUSITIS ACUTE 11/10/2013 ERICKA HULL DO K 461.9 SINUSITIS ACUTE 11/10/2013 MADL SECURITIES COUNSELOR, BRITANY L 461.9 SINUSITIS ACUTE 11/10/2013 MADL SECURITIES COUNSELOR, BRITANY L 461.9 SINUSITIS ACUTE 11/10/2013 MADL SECURITIES COUNSELOR, BRITANY L 461.9 SINUSITIS ACUTE 11/10/2013 TIFFANI ROSA M 461.9 SINUSITIS ACUTE 11/10/2013 MADL SECURITIES COUNSELOR, BRITANY L 461.9 SINUSITIS ACUTE 11/10/2013 MADL SECURITIES COUNSELOR, BRITANY L 461.9 SINUSITIS ACUTE 04/23/2014 MADL SECURITIES COUNSELOR, BRITANY L 788.1 DYSURIA 04/23/2014 MADL SECURITIES COUNSELOR, BRITANY L 788.1 DYSURIA 04/23/2014 MADL SECURITIES COUNSELOR, BRITANY L 788.1 DYSURIA 04/23/2014 TIFFANI ROSA M 788.1 DYSURIA 04/23/2014 MADL SECURITIES COUNSELOR, BRITANY L 788.1 DYSURIA 04/23/2014 MADL SECURITIES COUNSELOR, BRITANY L 788.1 DYSURIA 05/11/2014 MADL SECURITIES COUNSELOR, BRITANY L 041.81 OTHER SPECIFIED BACTERIAL INFECTIONS IN CONDITIONS CLASSIFIED ELSEWHERE AND OF UNSPECIFIED SITE MYCOPLASMA 05/11/2014 MADL SECURITIES COUNSELOR, BRITANY L 041.81 OTHER SPECIFIED BACTERIAL INFECTIONS IN CONDITIONS CLASSIFIED ELSEWHERE AND OF UNSPECIFIED SITE MYCOPLASMA 05/11/2014 TIFFANI ROSA 041.81 OTHER SPECIFIED BACTERIAL INFECTIONS IN CONDITIONS CLASSIFIED ELSEWHERE AND OF UNSPECIFIED SITE MYCOPLASMA 05/11/2014 MADL SECURITIES COUNSELOR, BRITANY L 041.81 OTHER SPECIFIED BACTERIAL INFECTIONS IN CONDITIONS CLASSIFIED ELSEWHERE AND OF UNSPECIFIED SITE MYCOPLASMA 05/11/2014 MADL SECURITIES COUNSELOR, BRITANY L 041.81 OTHER SPECIFIED BACTERIAL INFECTIONS IN CONDITIONS CLASSIFIED ELSEWHERE AND OF UNSPECIFIED SITE MYCOPLASMA 07/03/2014 TIFFANI ROSA M 278.00 OBESITY UNSPECIFIED 07/03/2014 TIFFANI ROSA M 787.1 HEARTBURN 07/03/2014 MADL SECURITIES COUNSELOR, BRITANY L 278.00 OBESITY UNSPECIFIED 07/03/2014 MADL SECURITIES COUNSELOR, BRITANY L 787.1 HEARTBURN 07/03/2014 MADL SECURITIES COUNSELOR, BRITANY L 278.00 OBESITY UNSPECIFIED 07/03/2014 MADL SECURITIES COUNSELOR, BRITANY L 787.1 HEARTBURN 07/17/2014 TIFFANI ROSA M 477.9 ALLERGIC RHINITIS CAUSE UNSPECIFIED 07/17/2014 MADL SECURITIES COUNSELOR, BRITANY L 477.9 ALLERGIC RHINITIS CAUSE UNSPECIFIED 07/17/2014 MADL SECURITIES COUNSELOR, BRITANY L 477.9 ALLERGIC RHINITIS CAUSE UNSPECIFIED 08/13/2014 MADL SECURITIES COUNSELOR, BRITANY L 701.9 UNSPECIFIED HYPERTROPHIC AND ATROPHIC CONDITIONS OF SKIN 02/23/2017 MADL, BRITANY L FOOD STAND MANAGER Ot 789.00 ABDOMINAL PAIN, UNSPECIFIED SITE 02/23/2017 MADL, BRITANY L FOOD STAND MANAGER Ot 793.5 NOSP (ABN) FINDINGS ON RADIOLOGICAL OT 02/23/2017 MADL, BRITANY L FOOD STAND MANAGER Ot 789.00 ABDOMINAL PAIN, UNSPECIFIED SITE 01/31/2018 BRITANY BOSCH FOOD STAND MANAGER Ot 789.00 ABDOMINAL PAIN, UNSPECIFIED SITE 01/31/2018 BRITANY BOSCH FOOD STAND MANAGER Ot 793.5 NOSP (ABN) FINDINGS ON RADIOLOGICAL OT 01/31/2018 BRITANY BOSCH FOOD STAND MANAGER Ot 789.00 ABDOMINAL PAIN, UNSPECIFIED SITE Procedures Code [place] [address] UA W/ CULTURE IF INDICATED 02/22/2012 43578 CULTURE URINE 02/24/2012 21274 TB TEST INTRADERMAL 03/21/2012 44836 PSYTX IND W/MED CK 45-50 03/21/2012 68003 MAMMOGRAM, SCREENING 05/08/2012 70794 GC/CHLAM PROBE (STATE) 05/08/2012 Q0091 PAP SMEAR OBTAIN SMEAR 05/08/2012 64482 ROUTINE VENIPUNCTURE 05/30/2012 8927689 GFR CALC (RESULT ONLY) 05/30/2012 69573 CMP 05/31/2012 52528 HIV ANTIBODIES (RML) 05/31/2012 53361 A1C (IN-HOUSE) 05/31/2012 03094 TRICHOMONAS (IN-HOUSE) 05/31/2012 23868 SYPHILIS TEST 05/31/2012 36859 CULTURE UROGENITAL 06/02/2012 82006 PAP SMEAR 06/06/2012 97036 UA LONG DIP 08/06/2012 79766 CULTURE UROGENITAL 08/07/2012 19264 CULTURE URINE 08/07/2012 22181 UA W/ CULTURE IF INDICATED 09/21/2012 32039 TRICHOMONAS (IN-HOUSE) 10/24/2012 90627 HERPES SIMPLEX CULTURE 10/25/2012 42595 CULTURE UROGENITAL 10/27/2012 22060 GC/CHLAM PROBE (STATE) 10/28/2012 66313 ROUTINE VENIPUNCTURE 11/11/2012 72408 ALPRAZOLAM (XANAX) QUANT 11/11/2012 67358 PSYCH IND W/MED CK 20 09/16/2013 59711 XRAY ABDOMEN 2 VIEWS 10/20/[address] ABDOMEN & PELVIS W/ & W/ O CONTRAST 10/20/2013 63262 US PELVIC ULTRASOUND, F/U ( NON-OB) 10/20/2013 43317 UA W/ CULTURE IF INDICATED 10/20/2013 32714 PSYCH DIAGNOSTIC EVALUATION 12/10/2013 88462 ROUTINE VENIPUNCTURE 04/23/2014 76669 XRAY CHEST 2 VIEW 04/23/2014 48863 OXIMETRY 04/23/2014 73578 UA W/ CULTURE IF INDICATED 04/23/2014 63337 CBC 04/23/2014 22650 MYCOPLASMA ANTIBODY 04/24/2014 87806 OXIMETRY 06/26/2014 90472 PSYCH DIAG EVAL W/MED SRVCS 08/03/2014 37750 ROUTINE VENIPUNCTURE 08/04/2014 3351378 GFR CALC (RESULT ONLY) 08/04/2014 11289 BMP 08/04/2014 Results Test Result Range Comp. Metabolic Panel (14) - 06/01/16 09:15 Glucose, Serum 146 mg/dL 65-99 BUN 15 mg/dL 6-24 Creatinine, Serum 0.95 mg/dL 0.57-1.00 eGFR If NonAfricn Am 75 mL/min/1.73 >59 eGFR If Africn Am 86 mL/min/1.73 >59 BUN/Creatinine Ratio 16 9-23 Sodium, Serum 137 mmol/L 134-144 Potassium, Serum 3.6 mmol/L 3.5-5.2 Chloride, Serum 96 mmol/L 96-106 Carbon Dioxide, Total 25 mmol/L 18-29 Calcium, Serum 9.2 mg/dL 8.7-10.2 Protein, Total, Serum 7.1 g/dL 6.0-8.5 Albumin, Serum 4.5 g/dL 3.5-5.5 Globulin, Total 2.6 g/dL 1.5-4.5 A/G Ratio 1.7 1.1-2.5 Bilirubin, Total 0.4 mg/dL 0.0-1.2 Alkaline Phosphatase, S 76 IU/L 39-117 AST (SGOT) 20 IU/L 0-40 ALT (SGPT) 19 IU/L 0-32 TSH - 06/01/16 09:15 TSH 1.180 uIU/mL 0.450-4.500 Genital Culture, Routine - 08/17/16 15:55 Genital Culture, Routine Note Urine Culture, Routine - 12/20/16 17:46 Urine Culture, Routine Note Urine Culture, Routine - 01/03/17 18:48 Urine Culture, Routine Note CMP - 02/21/17 17:44 Glucose, Serum 94 mg/dL 65-99 BUN 9 mg/dL 6-24 Creatinine, Serum 0.79 mg/dL 0.57-1.00 eGFR If NonAfricn Am 93 mL/min/1.73 >59 eGFR If Africn Am 108 mL/min/1.73 >59 BUN/Creatinine Ratio 11 9-23 Sodium, Serum 142 mmol/L 134-144 Potassium, Serum 4.1 mmol/L 3.5-5.2 Chloride, Serum 103 mmol/L 96-106 Carbon Dioxide, Total 28 mmol/L 18-29 Calcium, Serum 9.2 mg/dL 8.7-10.2 Protein, Total, Serum 6.5 g/dL 6.0-8.5 Albumin, Serum 3.8 g/dL 3.5-5.5 Globulin, Total 2.7 g/dL 1.5-4.5 A/G Ratio 1.4 1.2-2.2 Bilirubin, Total 0.3 mg/dL 0.0-1.2 Alkaline Phosphatase, S 67 IU/L 39-117 AST (SGOT) 16 IU/L 0-40 ALT (SGPT) 24 IU/L 0-32 CBC With Differential/Platelet - 02/21/17 17:44 WBC 6.4 x10E3/uL 3.4-10.8 RBC 4.43 x10E6/uL 3.77-5.28 Hemoglobin 13.1 g/dL 11.1-15.9 Hematocrit 40.4 % 34.0-46.6 MCV 91 fL 79-97 MCH 29.6 pg 26.6-33.0 MCHC 32.4 g/dL 31.5-35.7 RDW 13.0 % 12.3-15.4 Platelets 254 x10E3/uL 150-379 Neutrophils 52 % Not Estab. Lymphs 40 % Not Estab. Monocytes 6 % Not Estab. Eos 1 % Not Estab. Basos 1 % Not Estab. Neutrophils (Absolute) 3.4 x10E3/uL 1.4-7.0 Lymphs (Absolute) 2.6 x10E3/uL 0.7-3.1 Monocytes(Absolute) 0.4 x10E3/uL 0.1-0.9 Eos (Absolute) 0.1 x10E3/uL 0.0-0.4 Baso (Absolute) 0.0 x10E3/uL 0.0-0.2 Immature Granulocytes 0 % Not Estab. Immature Grans (Abs) 0.0 x10E3/uL 0.0-0.1 Comp. Metabolic Panel (14) - 02/21/17 17:44 Glucose, Serum 94 mg/dL 65-99 BUN 9 mg/dL 6-24 Creatinine, Serum 0.79 mg/dL 0.57-1.00 eGFR If NonAfricn Am 93 mL/min/1.73 >59 eGFR If Africn Am 108 mL/min/1.73 >59 BUN/Creatinine Ratio 11 9-23 Sodium, Serum 142 mmol/L 134-144 Potassium, Serum 4.1 mmol/L 3.5-5.2 Chloride, Serum 103 mmol/L 96-106 Carbon Dioxide, Total 28 mmol/L 18-29 Calcium, Serum 9.2 mg/dL 8.7-10.2 Protein, Total, Serum 6.5 g/dL 6.0-8.5 Albumin, Serum 3.8 g/dL 3.5-5.5 Globulin, Total 2.7 g/dL 1.5-4.5 A/G Ratio 1.4 1.2-2.2 Bilirubin, Total 0.3 mg/dL 0.0-1.2 Alkaline Phosphatase, S 67 IU/L 39-117 AST (SGOT) 16 IU/L 0-40 ALT (SGPT) 24 IU/L 0-32 Hepatitis Panel (4) - 02/21/17 17:44 HBsAg Screen Negative Negative Hep A Ab, IgM Negative Negative Hep B Core Ab, IgM Negative Negative Hep C Virus Ab 0.2 s/co ratio 0.0-0.9 Amylase, Serum - 02/21/17 17:44 Amylase, Serum 51 U/L 31-124 Lipase, Serum - 02/21/17 17:44 Lipase, Serum 55 U/L 14-72 CULTURE, URINE - 12/07/17 16:50 CULTURE, URINE, ROUTINE SEE NOTE NR CULTURE, URINE - 01/30/18 17:20 CULTURE, URINE, ROUTINE SEE NOTE [facility] CULTURE, GENITAL - 01/30/18 17:20 CULTURE, GENITAL SEE NOTE [facility] SUREPATH PAP AND HPV mRNA E6/E7 - 01/30/18 17:20 CLINICAL INFORMATION: [facility] LMP: N/A NRG PREV. PAP: 2013-WNL NRG PREV. BX: NRG SOURCE: Cervix NRG STATEMENT OF ADEQUACY: NRG INTERPRETATION/RESULT: NRG STAFFING ADMINISTRATOR: NRG HPV mRNA E6/E7, SUREPATH VIAL Not Detected NOT DETECTED COMMENT NRG CBC - 02/01/18 12:19 WHITE BLOOD CELL COUNT 7.9 Thousand/uL 3.8-10.8 RED BLOOD CELL COUNT 4.43 Million/uL 3.80-5.10 HEMOGLOBIN 14.0 g/dL 11.7-15.5 HEMATOCRIT 40.5 % 35.0-45.0 MCV 91.4 fL 80.0-100.0 MCH 31.6 pg 27.0-33.0 MCHC 34.6 g/dL 32.0-36.0 RDW 12.3 % 11.0-15.0 PLATELET COUNT 242 Thousand/uL 140-400 MPV 9.8 fL 7.5-12.5 ABSOLUTE NEUTROPHILS 3476 cells/uL 2137-1171 ABSOLUTE LYMPHOCYTES 3808 cells/uL 850-3900 ABSOLUTE MONOCYTES 427 cells/uL 200-950 ABSOLUTE EOSINOPHILS 119 cells/uL 15-500 ABSOLUTE BASOPHILS 71 cells/uL 0-200 NEUTROPHILS 44 % NRG LYMPHOCYTES 48.2 % NRG MONOCYTES 5.4 % NRG EOSINOPHILS 1.5 % NRG BASOPHILS 0.9 % NRG TSH - 02/01/18 12:19 TSH 2.38 mIU/L NRG Encounters ACCT No. Visit Date/Time Discharge Status Pt. Type Provider Facility Loc./Unit Complaint [id number] 08/13/2014 15:04:00 08/13/2014 23:59:59 CLS Outpatient RBITANY BOSCH APRN [id number] 08/04/2014 13:45:00 08/04/2014 23:59:59 CLS Outpatient BRITANY BOSCH APRN [id number] 07/10/2014 08:00:00 07/10/2014 23:59:59 CLS Outpatient TIFFANI ROSA [id number] 06/26/2014 10:42:00 06/26/2014 23:59:59 CLS Outpatient BRITANY BOSCH APRN [id number] 06/12/2014 14:06:00 06/12/2014 23:59:59 CLS Outpatient JOHN ROWLEY DDS [id number] 05/11/2014 14:28:00 05/11/2014 23:59:59 CLS Outpatient MADL SECURITIES COUNSELORBRITANY Wells L [id number] 04/23/2014 10:05:00 04/23/2014 23:59:59 CLS Outpatient MADL SECURITIES COUNSELORBRITANY L [id number] 02/23/2014 08:44:00 02/23/2014 23:59:59 CLS Outpatient DELLA WALTERS ERICKA Helms [id number] 01/08/2014 10:39:00 01/08/2014 23:59:59 CLS Outpatient MADL BRITANY SUGGS L [id number] 12/10/2013 10:05:00 12/10/2013 23:59:59 CLS Outpatient [facility] ERICK Nadeem [id number] 11/25/2013 11:42:00 11/25/2013 23:59:59 CLS Outpatient [id number] 11/10/2013 08:32:00 11/10/2013 23:59:59 CLS Outpatient DANITZA SECURITIES COUNSELORBRITANY Wells L [id number] 10/29/2013 09:33:00 10/29/2013 23:59:59 CLS Outpatient MADL BRITANY SUGGS L [id number] 10/20/2013 08:27:00 10/20/2013 23:59:59 CLS Outpatient DELLA WALTERS ERICKA Analia [id number] 10/20/2013 08:27:00 10/20/2013 23:59:59 CLS Outpatient MADBRITANY Lovell APRN L [id number] 10/01/2013 08:23:00 10/01/2013 23:59:59 CLS Outpatient TAN SUGGSMARC [id number] 09/02/2013 15:36:00 09/02/2013 23:59:59 CLS Outpatient ARLENE LEMA APRN [id number] 03/27/2013 08:19:00 03/27/2013 23:59:59 CLS Outpatient ARLENE LEMA APRN [id number] 03/27/2013 08:19:00 03/27/2013 23:59:59 CLS Outpatient ARLENE LMEA APRN [id number] 01/23/2013 08:21:00 01/23/2013 23:59:59 CLS Outpatient ARLENE LEMA APRN [id number] 01/23/2013 08:21:00 01/23/2013 23:59:59 CLS Outpatient PITA ARLENE SUGGS [id number] 08/06/2012 14:48:00 08/06/2012 23:59:59 CLS Outpatient NAY PALOMO APRN [id number] 07/12/2012 10:54:00 07/12/2012 23:59:59 CLS Outpatient IVET BARGER DO [id number] 05/30/2012 13:35:00 05/30/2012 23:59:59 CLS Outpatient [id number] 03/21/2012 12:47:00 03/21/2012 23:59:59 CLS Outpatient ARLENE LEMA APRN [id number] 03/21/2012 00:00:00 03/21/2012 23:59:59 CLS Outpatient ARLENE LEMA APRN [id number] 02/15/2012 13:32:00 02/15/2012 23:59:59 CLS Outpatient IVET BARGER DO [id number] 11/11/2012 15:17:00 Document Registration [id number] 11/01/2012 10:23:00 Document Registration [id number] 11/01/2012 10:23:00 Document Registration [id number] 10/24/2012 11:31:00 Document Registration [id number] 09/21/2012 14:03:00 Document Registration [id number] 09/21/2012 14:03:00 Document Registration [id number] 11/20/2017 16:40:00 11/20/2017 23:59:59 CLS Outpatient BRITANY BOSCH APRN Nas [facility] [id number] 02/01/2018 11:00:00 Document Registration [id number] 01/30/2018 15:40:00 Document Registration [id number] 12/07/2017 14:40:00 Document Registration [id number] 02/21/2017 16:20:00 Document Registration [id number] 12/23/2016 15:07:00 Document Registration [id number] 01/06/2017 03:10:00 Document Registration [id number] 02/22/2017 14:09:00 Document Registration [id number] 08/20/2016 10:06:00 Document Registration [id number] 02/05/2018 09:30:00 02/05/2018 23:59:59 CLS Preadmit MONIQUE VILLARREAL SECURITIES COUNSELOR [facility] RAD SCREENING [id number] 02/22/2017 08:54:00 02/22/2017 23:59:59 CLS Preadmit BRITANY BOSCH 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 MANAGER [facility] RAD R10.13 DYSPEPSIA [id number] 10/30/2013 11:11:00 10/30/2013 23:59:59 CLS Outpatient BRITANY BOSCH FOOD STAND MANAGER [facility] RAD ABDOMINAL PAIN [id number] 10/24/2013 10:00:00 10/24/2013 23:59:59 CLS Outpatient BRITANY BOSCH FOOD STAND MANAGER [facility] RAD ABD PAIN [id number] 12/25/2012 13:56:00 12/27/2012 15:38:00 DIS Outpatient JACQUELINE SHIELDS DO [facility] REHAB UPPER BACK, NECK PAIN [id number] 12/16/2012 20:08:00 12/17/2012 01:17:00 DIS Emergency LULY BOLDEN MD [facility] ER VOMITTING,DIARRHEA [id number] 12/06/2012 22:43:00 12/06/2012 23:57:00 DIS Emergency LULY BOLDEN MD [facility] ER BACK INJ [id number] 03/22/2018 21:29:00 ACT Emergency LULY BOLDEN MD [facility] ER L KNEE PAIN/WANTS BOIL LOOKED AT [id number] 06/02/2016 10:05:00 Document Registration
[2018-03-22] MEDS ORDERED: KETOROLAC 30 MG/ML VIAL IM ONE (23:45)
[2018-03-22] MEDS ORDERED: L.E.T. SYRINGE 5 ML TOP ONE (23:45)
[2018-03-23] MEDS ORDERED: L.E.T. SYRINGE 5 ML TOP ONE (00:15)
[2018-03-23] MEDS ORDERED: fentaNYL INJECTION 100 MCG/2 ML AMP IVP ONE (00:45)
--- NOTE | 2018-03-23 01:45 | ED General ---
General Chief Complaint: Lower Extremity Stated Complaint: L KNEE PAIN/WANTS BOIL LOOKED AT Source of Information: Patient Exam Limitations: No Limitations History of Present Illness Date Seen by Provider: Mar 23, 2018 Time Seen by Provider: 23:26 Initial Comments Patient presents with 2 complaints. First, she complains of left knee pain. Pain started suddenly when she pivoted on her leg. She was helping transfer a family member from wheelchair to bed when injury happened around 18:00. There was no pain before this and she denies any prior injuries. There is no blunt trauma, popping or snapping, her other type of trauma. She did ambulate to the exam room but states it is very difficult to walk. Second, she complains of a "boil" on her right buttock that has developed over the past 48 hours. It is very painful. She took ibuprofen and Ultram at home at 20:00 which did not control her pain at either site. Patient also has a small abscess in the right inguinal region. Allergies and Home Medications Allergies Coded Allergies: Penicillins (Unverified Allergy, Unknown, 05/29/11) Home Medications Alprazolam 0.5 Mg Tablet, 1 TAB PO TID PRN, (Reported) Ciprofloxacin 500 Mg Tablet, 1 TAB PO BID Prescribed by: LULY NEIL on 12/17/126 Cyclobenzaprine Hcl 10 Mg Tablet, 1 EACH PO BID, (Reported) Hyoscyamine Sulfate 0.125 Mg Tab, 0.125 MG SL Q4H as needed for abdominal cramping or diarrhea Prescribed by: LULY NEIL on 12/17/126 Ibuprofen 800 Mg Tab, 800 MG PO Q8HR PRN Prescribed by: LULY NEIL on 12/06/12 2342 Ibuprofen 600 Mg Tablet, 1 EACH PO QID PRN Take with food Prescribed by: LULY NEIL on 12/17/126 Nebivolol Hcl 10 Mg Tablet, 1 EACH PO DAILY, (Reported) Ondansetron Hcl 4 Mg Tab, 4 MG SL Q4H disolve under the tongue every 4 hours as needed for nausea Prescribed by: LULY NEIL on 12/17/126 Sulfamethoxazole/Trimethoprim 1 Each Tablet, 1 EACH PO BID Prescribed by: LULY NEIL on 03/23/18 0200 Patient Home Medication List Home Medication List Reviewed: Yes Review of Systems Review of Systems Constitutional: no symptoms reported EENTM: no symptoms reported Respiratory: no symptoms reported Cardiovascular: no symptoms reported Gastrointestinal: no symptoms reported Genitourinary: no symptoms reported Musculoskeletal: see HPI Skin: see HPI Psychiatric/Neurological: No Symptoms Reported Hematologic/Lymphatic: No Symptoms Reported Immunological/Allergic: no symptoms reported Past Tcgnthh-Dlerlb-Cqeltg Hx Patient Social History Recent Foreign Travel: No Contact w/Someone Who Travel: No Immunizations Up To Date Date of Influenza Vaccine: Mar 14, 2011 Seasonal Allergies Seasonal Allergies: No Past Medical History Surgeries: Yes Tubal Ligation Respiratory: No Cardiac: Yes Hypertension Reproductive Disorders: No 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 oz. 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 Skin was cleaned with chlorhexidine. A scalpel was used to make a small incision over the area of greatest fluctuance. A significant amount of watery purulent pus was expressed. Wound was dressed. I&D #2: Blade Size: 11 Progress Small abscess over the right groin was pretreated with LET. Skin was cleaned with chlorhexidine and then incised with a scalpel. A small amount of purulent material was expressed. Progress/Results/Core Measures Suspected Sepsis SIRS Temperature: Pulse: Respiratory Rate: Blood Pressure / Mean: Results/Orders My Orders Medications Given in ED Vital Signs/I&O Capillary Refill : Progress Note : Progress Note Patient was initially treated with an injection of Toradol for pain. This did not have the desired effect. She was then given an IV and a dose of IV fentanyl. This didn't effectively treat her pain. Abscesses were incised and drained. X-rays were obtained from the left knee and revealed no significant injury. Devin wrap was applied. Patient was given Bactrim for initial antibiotic therapy. A take-home bottle of hydrocodone was also given. Cultures were obtained from the abscesses. Diagnostic Imaging Diagonstic Imaging: Xray Plain Films/CT/US/NM/MRI: knee Comments X-rays of the left knee were viewed by me. Reports not yet available. No acute abnormalities were appreciated. Departure Impression Primary Impression: Left knee pain Qualified Codes: M25.562 - Pain in left knee Additional Impressions: Encounter for incision and drainage procedure Abscess of right buttock Abscess of right groin Disposition: 01 HOME, SELF-CARE Condition: Improved Departure-Patient Inst. Decision time for Depature: 01:57 Referrals: NO,LOCAL PHYSICIAN (PCP/Family) Primary Care Physician Patient Instructions: Knee Sprain (DC) Add. Discharge Instructions: Complete your antibiotic as prescribed. Bathe and soak in Hibiclens ( chlorhexidine) and water daily for the next week. Cover wounds as long as they are draining. Return to care if symptoms are worsening. Take ibuprofen up to 600 mg every 6 hours as needed for pain. Add either Tylenol or hydrocodone for pain not controlled by ibuprofen. Follow-up with your primary care provider soon as possible for further assessment of your knee. Review culture results with your doctor. You may use a compressive wrap such as an Devin bandage to help with pain. All discharge instructions reviewed with patient and/or family. Voiced understanding. Scripts Sulfamethoxazole/Trimethoprim (Bactrim Ds Tablet) 1 Each Tablet 1 EACH PO BID, #14 TAB Prov: LULY BOLDEN MD 03/23/18 Work/School Note: Work Release Form Date Seen in the Emergency Department: Mar 23, 2018 Return to Work: Mar 24, 2018 Restrictions: No Restrictions LULY BOLDEN MD Mar 23, 2018 01:45
[2018-03-23] MEDS ORDERED: SULF1TAB35 PO (02:00)
[2018-03-23] MEDS ORDERED: TRIM/SULFAMETH 160/800 (SEPTRA DS) TAB PO ONE (02:00)
[2018-03-23] MEDS ORDERED: RX-HYDROCODONE/APAP 5/325 MG #4 TAB PK PO PRN (02:15)
[2018-03-23 02:57] VITALS: BP 0/0
--- NOTE | 2018-03-23 06:42 | Diagnostic Imaging Report ---
INDICATION: Knee pain TECHNIQUE: 3 views of the left knee CORRELATION STUDY: None FINDINGS: The joint spaces are maintained. The articular surfaces are smooth and preserved. There is no acute bony abnormality. Soft tissues are unremarkable. IMPRESSION: 1. Negative for acute bony abnormality of the knee. Dictated by: Dictated on workstation # [id number]
== END 2018-03-23 02:56 | disposition home or self-care (01) ==
LOC: EDUNIT# 21:28 → ER 21:29
DX: M25.562 Pain in left knee (principal); L02.31 Cutaneous abscess of buttock; L02.214 Cutaneous abscess of groin; Z88.0 Allergy status to penicillin; Z98.51 Tubal ligation status; Z87.442 Personal history of urinary calculi
CPT/HCPCS: 10061; 73562; 87070; 87077; 87205

== ENCOUNTER 2018-09-28 03:39 | Emergency (ER) | payer SELFPAY ==
[~2018-09-28] VITALS: Ht 165.1 cm; Wt 117.9 kg
[~2018-09-28 03:39] MED LIST changes: +SULF1TAB35 PO
--- OUTSIDE RECORDS SUMMARY | 2018-09-28 03:48 | XMS REPORT ---
Author Author Migration, Doctor Organization [facility] Address Unknown Phone Unavailable Care Team Providers Care Frame Opener Name Role Phone Migration, Doctor Unavailable Unavailable PROBLEMS Type Condition ICD9-CM Code MDA19-FD Code Onset Dates Condition Status SNOMED Code Problem Essential hypertension I10 Active 66111737 Problem Bilateral low back pain without sciatica M54.5 Active 534880350 Problem Anxiety F41.9 Active 99724048 Problem Dysuria R30.0 Active 31252491 Problem Irritable bowel syndrome without diarrhea K58.9 Active 08124787 Problem Rhinosinusitis J32.9 Active 951979341 Problem Hypertriglyceridemia E78.1 Active 073044502 Problem Pre-diabetes R73.03 Active 970771049 Problem Alternating constipation and diarrhea R19.8 Active 115110195 Problem Body mass index (BMI) of 40.0-44.9 in adult Z68.41 Active 784188685 Problem Morbid (severe) obesity due to excess calories E66.01 Active 840378205 ALLERGIES No Information ENCOUNTERS Encounter Location Date Diagnosis [place] [address] [address] Aug, Acute nonintractable headache, unspecified headache type R51 ; Acute non-recurrent maxillary sinusitis J01.00 and Pre-diabetes R73.03 [place] [address] [place] [id number] [place] [address] 16 Aug, 2018 Acute vaginitis N76.0 [facility] [place] [address] [address] Aug, Rhinosinusitis J32.9 ; Bronchitis J40 ; Folliculitis L73.9 and Morbid obesity E66.01 [place] [address] [address] Jul, [facility] [place] [address] [address] Jul, [facility] [place] [id number] [place] [address] Jun, [facility] [place] [id number] [place] [address] Jun, Acute vaginitis N76.0 ; Dermatitis L30.9 ; BMI 40.0-44.9, adult Z68.41 and Morbid obesity E66.01 [facility] [address] [place] [id number] [place] [address] Jun, Vaginal discharge N89.8 ; Urinary tract infection without hematuria, site unspecified N39.0 and BMI 40.0-44.9, adult Z68.41 [place] [address] [place] [id number] [place] [address] May, [place] [address] [place] [id number] [place] [address] May, [place] [address] [place] [id number] [place] [address] Apr, Urinary tract infection, site not specified N39.0 [place] [address] [place] [id number] [place] [address] Apr, Dysuria R30.0 ; Urinary tract infection, site not specified N39.0 and Hematuria, unspecified R31.9 [place] [address] [place] [id number] [place] [address] Mar, [place] [address] [place] [id number] [place] [address] Mar, Left anterior knee pain M25.562 ; Abscess of buttock, left L02.31 and BMI 40.0-44.9, adult Z68.41 [facility] [place] [id number] [place] [address] Mar, [facility] IN [facility] [address] [place] [id number] [place] [address] Feb, Abrasion of right ear canal, initial encounter S00.411A ; Left wrist pain M25.532 ; Right acute serous otitis media, recurrence not specified H65.01 and BMI 40.0-44.9, adult Z68.41 [facility] [place] [address] [place] [id number] [place] [address] Jan, [place] [address] [address] Jan, [place] [address] [address] Jan, BMI 40.0-44.9, adult Z68.41 ; Pre-diabetes R73.03 ; Essential hypertension I10 ; Morbid (severe) obesity due to excess calories E66.01 ; Bilateral low back pain without sciatica M54.5 and Heartburn R12 [place] [address] [address] Jan, History of UTI Z87.440 ; Well woman exam with routine gynecological exam Z01.419 ; Screening for breast cancer Z12.31 ; Candidal vaginitis B37.3 and BMI 40.0-44.9, adult Z68.41 [place] [address] [place] [id number] [place] [address] Jan, [facility] [address] [place] [id number] [place] [address] Jan, Dysuria R30.0 ; Acute cystitis with hematuria N30.01 ; Yeast infection B37.9 and BMI 40.0-44.9, adult Z68.41 [place] [address] [address] Dec, [place] [address] [address] Dec, [place] [address] [address] Nov, History of UTI Z87.440 [facility] [place] [address] [place] [address] Nov, UTI symptoms R39.9 ; Acute nasopharyngitis J00 and BMI 40.0-44.9, adult Z68.41 [place] [address] [place] [address] Nov, [facility] [place] [address] [place] [id number] [place] [address] Nov, Yeast infection involving the vagina and surrounding area B37.3 [place] [address] [place] [id number] [place] [address] Nov, Yeast infection involving the vagina and surrounding area B37.3 [place] [address] [place] [id number] [place] [address] Nov, Yeast infection involving the vagina and surrounding area B37.3 ; Body mass index (BMI) of 40.0-44.9 in adult Z68.41 and Morbid (severe) obesity due to excess calories E66.01 [place] [address] [place] [address] Oct, Abscess of groin, left L02.214 and Pre-diabetes R73.03 [place] [address] [address] September, Pre-diabetes R73.03 [place] [address] [place] [id number] [place] [address] Aug, [facility] [place] [address] [place] [address] Jul, Bilateral low back pain without sciatica M54.5 [facility] [place] [address] [place] [id number] [place] [address] Jun, [place] [address] [place] [id number] [place] [address] Jun, [place] [address] [place] [id number] [place] [address] Jun, [facility] [place] [address] [address] May, [facility] [place] [address] [place] [id number] [place] [address] May, Ingrown left greater toenail L60.0 [facility] [place] [address] [address] May, [facility] [address] [address] May, Influenza A J10.1 ; Fever R50.9 and Body aches R52 [facility] [place] [address] [address] Apr, [facility] [place] [address] [address] Apr, [facility] [place] [address] [address] Apr, [facility] [place] [address] [address] Apr, Abscess L02.91 and Obesity (BMI 30-39.9) E66.9 [facility] [place] [address] [address] Apr, [facility] [place] [address] [place] [id number] [place] [address] Apr, [facility] [place] [address] [address] Mar, Acute non-recurrent maxillary sinusitis J01.00 [facility] [place] [address] [place] [id number] [place] [address] Feb, Heartburn R12 [facility] [place] [address] [address] Feb, Heartburn R12 ; Low back pain M54.5 ; Essential hypertension I10 ; Bilateral low back pain without sciatica M54.5 ; Anxiety F41.9 ; Pre-diabetes R73.03 ; Other obesity due to excess calories E66.09 ; Alternating constipation and diarrhea R19.8 ; Dyspepsia R10.13 ; Generalized abdominal pain R10.84 ; Rhinosinusitis J32.9 and Boil L02.92 [place] [address] [address] Jan, Heartburn R12 [place] [address] [address] Jan, [place] [address] [address] Jan, [place] [address] [address] Jan, Acute seasonal allergic rhinitis due to pollen J30.1 and Irritable bowel syndrome without diarrhea K58.9 [place] [address] [address] Dec, Low back pain M54.5 and Acute cystitis with hematuria N30.01 [place] [address] [address] Dec, Low back pain M54.5 and Acute cystitis with hematuria N30.01 [place] [address] [address] Dec, Heartburn R12 ; Essential hypertension I10 ; Acute non-recurrent maxillary sinusitis J01.00 ; Bilateral low back pain without sciatica M54.5 ; Anxiety F41.9 ; Pre-diabetes R73.03 ; Pain in right foot M79.671 ; Pain in left foot M79.672 ; Other obesity due to excess calories E66.09 and Acute cystitis with hematuria N30.01 [place] [address] [address] Dec, Bilateral low back pain without sciatica M54.5 ; Acute non-recurrent maxillary sinusitis J01.00 and Pre-diabetes R73.03 [place] [address] [address] Oct, [facility] [place] [address] [address] Aug, [facility] IN [place] [address] [address] Aug, Acute vaginitis N76.0 ; Urinary frequency R35.0 ; Screen for STD (sexually transmitted disease) Z11.3 and Abscess L02.91 [place] [address] [address] Aug, Plantar wart of right foot B07.0 [place] [address] [address] Jul, Plantar wart of right foot B07.0 [place] [address] [address] Jun, [place] [address] [address] Jun, Heartburn R12 ; Essential hypertension I10 ; Anxiety F41.9 ; Folliculitis L73.9 and Plantar wart of right foot B07.0 [place] [address] [address] Jun, [facility] IN [place] [address] [address] May, Low back pain M54.5 and Other chronic pain G89.29 [place] [address] [address] May, [place] [address] [address] May, [place] [address] [place] [id number] [place] [address] May, Heartburn R12 ; Bilateral low back pain without sciatica M54.5 ; Essential hypertension I10 ; Long-term use of high-risk medication Z79.899 ; Anxiety F41.9 ; Impacted cerumen of right ear H61.21 ; Folliculitis L73.9 ; High risk bisexual behavior Z72.53 and General medical exam Z00.00 [place] [address] [address] May, [place] [address] [address] May, [place] [address] [address] Mar, Acute nasopharyngitis J00 ; Acute intractable tension-type headache G44.201 and Cough R05 [place] [address] [place] [id number] [place] [address] Jan, [facility] [address] [address] Jan, Abscess L02.91 [facility] [place] [address] [place] [id number] [place] [address] Jan, Urinary urgency R39.15 and Urinary tract infection without hematuria, site unspecified N39.0 [place] [address] [place] [id number] [place] [address] Jan, [place] [address] [place] [id number] [place] [address] Jan, [place] [address] [address] Dec, [place] [address] [place] [id number] [place] [address] Dec, Dermatofibroma D23.9 [place] [address] [place] [address] September, [facility] [place] [address] [place] [id number] [place] [address] Aug, [facility] [place] [address] [place] [id number] [place] [address] Aug, Pain in left knee M25.562 ; Heartburn R12 ; Bilateral low back pain without sciatica M54.5 ; Essential hypertension I10 ; Ingrown left big toenail L60.0 ; Chronic pain G89.29 ; Irritable bowel syndrome with constipation K58.9 and Skin infection L08.9 [facility] [place] [address] [place] [id number] [place] [address] Aug, [facility] [place] [address] [place] [id number] [place] [address] Jul, [facility] [place] [address] [place] [id number] [place] [address] Jun, [facility] [place] [id number] [place] [address] Jun, [facility] [place] [address] [place] [id number] [place] [address] Jun, [facility] [place] [id number] [place] [address] Jun, [facility] [place] [id number] [place] [address] Jun, Upper respiratory infection J06.9 ; Bilateral low back pain without sciatica M54.5 and Headache R51 [facility] [place] [address] [place] [id number] [place] [address] May, [facility] [place] [id number] [place] [address] Apr, Bilateral low back pain without sciatica M54.5 ; Upper respiratory infection J06.9 and Yeast dermatitis B37.2 [facility] [place] [address] [address] Apr, [facility] [place] [address] [place] [id number] [place] [address] Apr, [facility] [place] [id number] [place] [address] Feb, [facility] [place] [address] [place] [id number] [place] [address] Feb, [facility] [place] [address] [place] [id number] [place] [address] Feb, [facility] [place] [address] [place] [id number] [place] [address] Feb, Essential hypertension I10 ; Heartburn R12 ; Irritable bowel syndrome without diarrhea K58.9 ; Bilateral low back pain, with sciatica presence unspecified M54.5 and Upper respiratory infection J06.9 [place] [address] [place] [id number] [place] [address] Feb, [facility] [place] [address] [place] [id number] [place] [address] Feb, Generalized anxiety disorder F41.1 and Grief F43.20 [place] [id number] [place] [address] Jan, [facility] [place] [id number] [place] [address] Jan, Back pain 724.5 ; Upper respiratory infection 465.9 ; HTN (hypertension) 401.9 and Dyspepsia 536.8 [place] [address] [place] [id number] [place] [address] Dec, [facility] [place] [address] [place] [id number] [place] [address] Nov, Back pain 724.5 ; Abdominal pain, bilateral lower quadrant 789.03 ; GERD (gastroesophageal reflux disease) 530.81 ; Upper respiratory infection 465.9 ; Dysuria 788.1 and HTN (hypertension) 401.9 [facility] [place] [address] [address] Nov, [facility] [place] [address] [place] [id number] [place] [address] Nov, [facility] [place] [address] [place] [id number] [place] [address] Nov, [facility] [place] [address] [place] [id number] [place] [address] Nov, Cough 786.2 [facility] [place] [address] [place] [id number] [place] [address] Nov, Cough 786.2 [facility] [place] [address] [place] [id number] [place] [address] Oct, Unspecified episodic mood disorder 296.90 and Anxiety disorder, unspecified 300.00 [facility] [place] [address] [place] [id number] [place] [address] Oct, Abdominal pain, left upper quadrant 789.02 ; Essential hypertension, benign 401.1 ; Irritable bowel syndrome 564.1 ; Abscess 682.9 ; Heartburn 787.1 ; Acute sinusitis, unspecified 461.9 ; Muscle spasm of back 724.8 ; Cough 786.2 and Skin tag 701.9 [facility] [place] [id number] [place] [address] September, [facility] [place] [id number] [place] [address] September, [facility] [place] [address] [place] [id number] [place] [address] September, [facility] [place] [address] [place] [id number] [place] [address] Aug, [facility] [place] [id number] [place] [address] Aug, [facility] [place] [facility] [address] [id number] [place] [address] 30 Jul, 2014 [facility] [place] [facility] [address] [id number] [place] [address] 30 Jul, 2014 [facility] [place] [facility] [address] [id number] [place] [address] Jul, [facility] [place] [facility] [address] [id number] [place] [address] Jul, [facility] [place] [facility] [address] [id number] [place] [address] Jul, [facility] [place] [facility] [address] [id number] [place] [address] Jul, [facility] [place] [facility] [address] [id number] [place] [address] Jul, [facility] [place] [facility] [address] [id number] [place] [address] Jul, [facility] [place] [facility] [address] [id number] [place] [address] Jul, [facility] [place] [facility] [address] [id number] [place] [address] Jul, [facility] [place] [facility] [address] [id number] [place] [address] Jul, [facility] [place] [facility] [address] [id number] [place] [address] Jul, [facility] [place] [facility] [address] [id number] [place] [address] Jul, [facility] [place] [facility] [address] [id number] [place] [address] Jul, [facility] [place] [facility] [address] [id number] [place] [address] Jul, [facility] [place] [facility] [address] [id number] [place] [address] Jul, 2014 [facility] [place] [facility] [address] [facility] [id number] [place] [address] Jul, 2014 [facility] [place] [facility] [address] [facility] [id number] [place] [address] Jun, 2014 [facility] [place] [facility] [address] [facility] [id number] [place] [address] Jun, 2014 [facility] [place] [facility] [address] [facility] [id number] [place] [address] Jun, 2014 [facility] [place] [facility] [address] [facility] [id number] [place] [address] Jun, 2014 [facility] [place] [facility] [address] [facility] [id number] [place] [address] Jun, 2014 [facility] [place] [facility] [address] [facility] [id number] [place] [address] Jun, 2014 [facility] [place] [facility] [address] [facility] [id number] [place] [address] Jun, 2014 [facility] [place] [facility] [address] [facility] [id number] [place] [address] Jun, 2014 [facility] [place] [facility] [address] [facility] [id number] [place] [address] Apr, [facility] [place] [facility] [address] [facility] [id number] [place] [address] Apr, [facility] [place] [facility] [address] [facility] [id number] [place] [address] Apr, [facility] [place] [facility] [address] [facility] [id number] [place] [address] Apr, [facility] [place] [facility] [address] [facility] [id number] [place] [address] Apr, [facility] [place] [facility] [address] [facility] [id number] [place] [address] Apr, [facility] [place] [facility] [address] [id number] [place] [address] 15 Apr, 2014 [facility] [place] [facility] [address] [id number] [place] [address] Apr, [facility] [place] [facility] [address] [id number] [place] [address] Apr, [facility] [place] [facility] [address] [id number] [place] [address] Apr, [facility] [place] [facility] [address] [id number] [place] [address] Apr, [facility] [place] [facility] [address] [id number] [place] [address] Apr, [facility] [place] [facility] [address] [id number] [place] [address] Apr, [facility] [place] [facility] [address] [id number] [place] [address] Apr, [facility] [place] [facility] [address] [id number] [place] [address] Apr, [facility] [place] [facility] [address] [id number] [place] [address] Feb, [facility] [place] [facility] [address] [id number] [place] [address] Feb, [facility] [place] [facility] [address] [id number] [place] [address] Feb, [facility] [place] [facility] [address] [id number] [place] [address] Feb, [facility] [place] [facility] [address] [id number] [place] [address] Feb, [facility] [place] [facility] [address] [id number] [place] [address] Feb, [facility] [place] [facility] [address] [id number] [place] [address] Jan, [facility] [place] [facility] [address] [id number] [place] [address] Jan, 2013 [facility] [place] [facility] [address] [id number] [place] [address] Jan, [facility] [place] [facility] [address] [id number] [place] [address] Jan, 2013 [facility] [place] [facility] [address] [id number] [place] [address] Jan, [facility] [facility] [address] [id number] [place] [address] Jan, [facility] [place] [facility] [address] [id number] [place] [address] Dec, [facility] [place] [facility] [address] [id number] [place] [address] Dec, [facility] [place] [facility] [address] [id number] [place] [address] Dec, [facility] [place] [facility] [address] [id number] [place] [address] Dec, [facility] [place] [facility] [address] [id number] [place] [address] Nov, [facility] [place] [facility] [address] [id number] [place] [address] Nov, [facility] [place] [facility] [address] [id number] [place] [address] Nov, [facility] [place] [facility] [address] [id number] [place] [address] Nov, [facility] [place] [facility] [address] [id number] [place] [address] Nov, [facility] [place] [facility] [address] [id number] [place] [address] Nov, [facility] [place] [facility] [address] [id number] [place] [address] 15 Nov, 2013 [facility] [place] [facility] [address] [id number] [place] [address] 15 Nov, 2013 [facility] [place] [facility] [address] [id number] [place] [address] Oct, [facility] [place] [facility] [address] [id number] [place] [address] Oct, [facility] [place] [facility] [address] [id number] [place] [address] Oct, [facility] [place] [facility] [address] [id number] [place] [address] Oct, [facility] [place] [facility] [address] [id number] [place] [address] Oct, [facility] [place] [facility] [address] [id number] [place] [address] Oct, [facility] [place] [facility] [address] [id number] [place] [address] Oct, [facility] [place] [facility] [address] [id number] [place] [address] Oct, [facility] [place] [facility] [address] [facility] [id number] [place] [address] Oct, [facility] [place] [address] [id number] [place] [address] Oct, [facility] [place] [facility] [address] [id number] [place] [address] Oct, [facility] [place] [facility] [address] [id number] [place] [address] Oct, [facility] [place] [facility] [address] [id number] [place] [address] Oct, [facility] [place] [address] [id number] [place] [address] Oct, [facility] [place] [facility] [address] [id number] [place] [address] 17 Oct, 2013 [facility] [place] [address] [id number] [place] [address] 17 Oct, 2013 [facility] [place] [facility] [address] [id number] [place] [address] 16 Oct, 2013 [facility] [place] [facility] [address] [id number] [place] [address] Oct, [facility] [place] [facility] [address] [id number] [place] [address] Oct, [facility] [place] [facility] [address] [id number] [place] [address] Oct, [facility] [place] [facility] [address] [id number] [place] [address] Oct, [facility] [place] [facility] [address] [id number] [place] [address] Oct, [facility] [place] [facility] [address] [id number] [place] [address] Oct, [facility] [place] [facility] [address] [id number] [place] [address] Oct, [facility] [place] [facility] [address] [id number] [place] [address] Oct, [facility] [place] [facility] [address] [id number] [place] [address] Oct, [facility] [place] [facility] [address] [id number] [place] [address] Oct, [facility] [address] [id number] [place] [address] Oct, [facility] [place] [facility] [address] [id number] [place] [address] Oct, [facility] [place] [address] [id number] [place] [address] Oct, [facility] [address] [id number] [place] [address] September, [facility] [address] [id number] [place] [address] September, [facility] [address] [id number] [place] [address] September, [facility] [address] [id number] [place] [address] September, [facility] [address] [id number] [place] [address] September, [facility] [place] [address] [id number] [place] [address] September, [facility] [address] [id number] [place] [address] September, [facility] [address] [id number] [place] [address] September, [facility] [address] [id number] [place] [address] September, [facility] [address] [id number] [place] [address] September, [facility] [address] [id number] [place] [address] September, [facility] [address] [id number] [place] [address] September, [facility] [address] [id number] [place] [address] September, [facility] [address] [id number] [place] [address] September, [facility] [address] [id number] [place] [address] September, [facility] [address] [id number] [place] [address] September, [facility] [address] [id number] [place] [address] September, [facility] [address] [id number] [place] [address] September, [facility] [address] [id number] [place] [address] Aug, [facility] [address] [id number] [place] [address] Aug, [facility] [address] [id number] [place] [address] Aug, [facility] [address] [id number] [place] [address] Aug, [facility] [address] [id number] [place] [address] Aug, [facility] [address] [id number] [place] [address] Aug, [facility] [address] [id number] [place] [address] Jul, [facility] [address] [id number] [place] [address] Jul, [facility] [address] [id number] [place] [address] Jul, [facility] [address] [id number] [place] [address] Jul, [facility] [address] [id number] [place] [address] Jun, [facility] [address] [id number] [place] [address] Jun, [facility] [address] [id number] [place] [address] Jun, [facility] [address] [id number] [place] [address] Jun, [facility] [address] [id number] [place] [address] Mar, [facility] [address] [id number] [place] [address] Mar, [facility] [address] [id number] [place] [address] Mar, [facility] [address] [id number] [place] [address] Mar, [facility] [address] [id number] [place] [address] Feb, [facility] [address] [id number] [place] [address] Feb, [facility] [address] [id number] [place] [address] Feb, [facility] [address] [id number] [place] [address] Jan, [facility] [address] [id number] [place] [address] 20 Jan, 2013 [facility] [address] [id number] [address] 12 Jan, 2013 [facility] [address] [id number], [place] [address] 05 Jan, 2013 [facility] [address] [id number] [place] [address] Dec, [facility] [address] [id number], [place] [address] 15 Dec, 2012 [facility] [address] [id number] [place] [address] Dec, [facility] [address] [id number] [place] [address] Dec, [facility] [address] [id number] [place] [address] Nov, [facility] [address] [id number] [place] [address] Nov, [facility] [address] [id number] [place] [address] Nov, [facility] [address] [id number] [place] [address] Nov, [facility] [address] [id number] [place] [address] Nov, [facility] [address] [id number] [place] [address] Nov, [facility] [address] [id number] [place] [address] Oct, [facility] [address] [id number] [place] [address] Oct, [facility] [address] [id number] [place] [address] Oct, [facility] [address] [id number] [place] [address] Oct, [facility] [address] [id number] [place] [address] 17 Oct, 2012 [facility] [address] [id number] [place] [address] 16 Oct, 2012 [facility] [address] [id number] [place] [address] 14 Oct, 2012 [facility] [address] [id number] [place] [address] 13 Oct, 2012 [facility] [address] [id number] [place] [address] Oct, [facility] [address] [id number] [place] [address] Oct, [facility] [address] [id number] [place] [address] September, [facility] [address] [id number] [place] [address] September, [facility] [address] [id number] [place] [address], [facility] [address] [id number] [place] [address] Aug, [facility] [address] [id number] [place] [address] Aug, [facility] [address] [id number] [place] [address] Aug, [facility] [address] [id number] [place] [address] Aug, [facility] [address] [id number] [place] [address] Jul, [facility] [address] [id number] [place] [address] Jul, [facility] [address] [id number] [place] [address] Jul, [facility] [address] [id number] [place] [address] Jul, [facility] [address] [id number] [place] [address] Jul, [facility] [address] [id number] [place] [address] Jul, [facility] [address] [id number] [place] [address] May, [facility] [address] [id number] [place] [address] 29 May, 2012 [facility] [address] [id number] [place] [address] May, [facility] [address] [id number] [place] [address] May, [facility] [address] [id number] [place] [address] May, [facility] [address] [id number] [place] [address] May, [facility] [address] [id number] [place] [address] May, [facility] [address] [id number] [place] [address] May, [facility] [address] [id number] [place] [address] 17 May, 2012 [facility] [address] [id number] [place] [address] 17 May, 2012 [facility] [address] [id number] [place] [address] 16 May, 2012 [facility] [address] [id number] [place] [address] Apr, [facility] [address] [id number] [place] [address] Apr, [facility] [address] [id number] [place] [address] Apr, [facility] [facility] [address] [id number] [place] [address] Apr, [facility] [address] [id number] [place] [address] Apr, [facility] [address] [id number] [place] [address] Apr, [facility] [address] [id number] [place] [address] Mar, [facility] [facility] [address] [id number] [place] [address] Mar, [facility] [facility] [address] [id number] [place] [address] Mar, [facility] [facility] [address] [id number] [place] [address] Mar, [facility] [place] [facility] [address] [id number] [place] [address] Mar, [facility] [place] [facility] [address] [id number] [place] [address] Mar, [facility] [place] [facility] [address] [id number] [place] [address] Mar, [facility] [place] [facility] [address] [id number] [place] [address] Mar, [facility] [place] [facility] [address] [id number] [place] [address] Feb, [facility] [place] [facility] [address] [id number] [place] [address] Feb, [facility] [place] [facility] [address] [id number] [place] [address] 16 Feb, 2012 [facility] [place] [facility] [address] [id number] [place] [address] 15 Feb, 2012 [facility] [place] [facility] [address] [id number] [place] [address] 15 Feb, 2012 [facility] [place] [facility] [address] [id number] [place] [address] 13 Feb, 2012 [facility] [place] [facility] [address] [id number] [place] [address] Feb, [facility] [place] [facility] [address] [id number] [place] [address] Feb, [facility] [place] [facility] [address] [id number] [place] [address] Feb, [facility] [place] [facility] [address] [id number] [place] [address] Feb, [facility] [place] [facility] [address] [id number] [place] [address] Feb, [facility] [place] [facility] [address] [id number] [place] [address] Feb, [facility] [place] [facility] [address] [id number] [place] [address] Feb, [facility] [place] [facility] [address] [id number] [place] [address] Feb, [facility] [place] [facility] [address] [id number] [place] [address] Feb, [facility] [place] [facility] [address] [id number], [place] [address] Feb, [facility] [place] [facility] [address] [id number] [place] [address] Feb, [facility] [place] [facility] [address] [id number], [place] [address] Feb, [facility] [place] [facility] [address] [id number], [place] [address] 19 Jan, 2012 [facility] [place] [facility] [address] [id number], [place] [address] 13 Sep2011 [facility] [place] [facility] [address] [id number], [place] [address] 11 Sep2011 [facility] [place] [facility] [address] [id number], [place] [address] 10 Sep2011 [facility] [place] [facility] [address] [id number], [place] [address] 05 Sep2011 [facility] [place] [facility] [address] [id number], [place] [address] Dec, [facility] [place] [facility] [address] [id number] [place] [address] Dec, [facility] [place] [facility] [address] [id number] [place] [address] Dec, [facility] [place] [facility] [address] [id number] [place] [address] Dec, [facility] [place] [facility] [address] [id number] [place] [address] Dec, [facility] [place] [facility] [address] [id number] [place] [address] Dec, [facility] [place] [facility] [address] [id number] [place] [address] Nov, [facility] [place] [facility] [address] [id number] [place] [address] Nov, [facility] [place] [facility] [address] [id number] [place] [address] Nov, [facility] [place] [facility] [address] [id number] [place] [address] Nov, [facility] [place] [facility] [address] [id number] [place] [address] Nov, [facility] [place] [facility] [address] [id number] [place] [address] Oct, [facility] [place] [facility] [address] [id number] [place] [address] Oct, [facility] [place] [facility] [address] [id number] [place] [address] Oct, [facility] [place] [facility] [address] [id number] [place] [address] September, [facility] [place] [facility] [address] [id number] [place] [address] September, [facility] [place] [facility] [address] [id number] [place] [address] September, [facility] [address] [id number] [place] [address] September, [facility] [place] [facility] [address] [id number] [place] [address] September, [facility] [place] [facility] [address] [id number] [place] [address] September, [facility] [place] [facility] [address] [id number] [place] [address] Aug, [facility] [place] [facility] [address] [id number] [place] [address] Aug, [facility] [place] [facility] [address] [id number] [place] [address] Aug, [facility] [place] [facility] [address] [id number] [place] [address] Jun, [facility] [place] [facility] [address] [id number] [place] [address] Jun, [facility] [place] [facility] [address] [id number] [place] [address] Jun, [facility] [place] [facility] [address] [id number] [place] [address] Jun, [facility] [place] [facility] [address] [id number] [place] [address] May, [facility] [place] [facility] [address] [id number] [place] [address] May, [facility] [place] [facility] [address] [id number] [place] [address] May, [facility] [place] [facility] [address] [id number] [place] [address] May, [facility] [place] [facility] [address] [id number] [place] [address] May, [facility] [place] [facility] [address] [id number] [place] [address] Apr, [facility] [place] [facility] [address] [id number] [place] [address] Apr, [facility] [place] [facility] [address] [id number] [place] [address] Apr, [facility] [place] [facility] [address] [id number] [place] [address] Apr, [facility] [place] [facility] [address] [id number] [place] [address] Apr, [facility] [place] [facility] [address] [id number] [place] [address] Apr, [facility] [place] [facility] [address] [id number] [place] [address] Apr, [facility] [place] [facility] [address] [id number] [place] [address] Mar, [facility] [place] [facility] [address] [id number] [place] [address] Mar, [facility] [place] [facility] [address] [id number] [place] [address] Mar, [facility] [place] [facility] [address] [id number], [place] [address] Feb, [facility] [place] [facility] [address] [id number], [place] [address] Feb, [facility] [place] [facility] [address] [id number] [place] [address] Feb, [facility] [place] [facility] [address] [id number] [place] [address] Feb, [facility] [place] [facility] [address] [id number] [place] [address] 18 Feb, 2011 [facility] [place] [facility] [address] [id number] [place] [address] 17 Feb, 2011 [facility] [address] [id number] [place] [address] 13 Jan, 2011 [facility] [place] [facility] [address] [id number] [place] [address] 12 Jan, 2011 [facility] [address] [id number] [place] [address] September, [facility] [place] [facility] [address] [id number] [place] [address] Jun, [facility] [address] [id number] [place] [address] Apr, [facility] [address] [id number] [place] [address] Apr, [facility] [address] [id number] [place] [address] Apr, [facility] [address] [id number] [place] [address] Apr, [facility] [address] [id number] [place] [address] Apr, [facility] [address] [id number] [place] [address] 30 Mar, 2010 [facility] [place] [facility] [address] [id number] [place] [address] 24 Mar, 2010 [facility] [address] [id number] [place] [address] 23 Mar, 2010 [facility] [place] [facility] [address] [id number] [place] [address] 05 Mar, 2010 [facility] [place] [facility] [address] [id number] [place] [address] 27 Feb, 2010 [facility] [place] [facility] [address] [id number] [place] [address] 15 Jan, 2010 [facility] [place] [address] [facility] [id number] [place] [address] Mar, [facility] [place] [address] [id number] [address] 15 Jan, 2009 [facility] [place] [address] [facility] [id number], [place] [address] Oct, [facility] [place] [address] [facility] [id number], [place] [address] Apr, IMMUNIZATIONS No Known Immunizations SOCIAL HISTORY Never Assessed REASON FOR VISIT EMR-[facility] PLAN OF CARE VITAL SIGNS MEDICATIONS No [...]
--- OUTSIDE RECORDS SUMMARY | 2018-09-28 03:48 | XMS REPORT ---
Author Author Migration, Doctor Organization [facility] Address Unknown Phone Unavailable Care Team Providers Care Breaker Hand Name Role Phone Migration, Doctor Unavailable Unavailable PROBLEMS Type Condition ICD9-CM Code [id number] Code Onset Dates Condition Status SNOMED Code Problem Essential hypertension I10 Active 45919031 Problem Bilateral low back pain without sciatica M54.5 Active 506614386 Problem Anxiety F41.9 Active 92232773 Problem Dysuria R30.0 Active 77985735 Problem Irritable bowel syndrome without diarrhea K58.9 Active 38091867 Problem Rhinosinusitis J32.9 Active 535509624 Problem Hypertriglyceridemia E78.1 Active 348787286 Problem Pre-diabetes R73.03 Active 646140773 Problem Alternating constipation and diarrhea R19.8 Active 218412187 Problem Body mass index (BMI) of 40.0-44.9 in adult Z68.41 Active 574455984 Problem Morbid (severe) obesity due to excess calories E66.01 Active 114670687 ALLERGIES No Information ENCOUNTERS Encounter Location Date Diagnosis [place] [address] [address] Aug, Acute nonintractable headache, unspecified headache type R51 ; Acute non-recurrent maxillary sinusitis J01.00 and Pre-diabetes R73.03 [place] [address] [place] [id number] [place] [address] 16 Aug, 2018 Acute vaginitis N76.0 [facility], [place] [address] [address] Aug, Rhinosinusitis J32.9 ; Bronchitis J40 ; Folliculitis L73.9 and Morbid obesity E66.01 [place] [address] [address] Jul, [facility], [place] [address] [address] Jul, [facility] [place] [id number] [place] [address] Jun, [facility], [place] [id number] [place] [address] Jun, Acute vaginitis N76.0 ; Dermatitis L30.9 ; BMI 40.0-44.9, adult Z68.41 and Morbid obesity E66.01 [facility] [address] [place] [id number] [place] [address] Jun, Vaginal discharge N89.8 ; Urinary tract infection without hematuria, site unspecified N39.0 and BMI 40.0-44.9, adult Z68.41 [place] [address] [place] [id number] [place] [address] May, [place] [address] [place] [id number] [place] [address] May, [place] [address] [place] [id number] [place] [address] Apr, Urinary tract infection, site not specified N39.0 [place] [address] [place] [id number] [place] [address] Apr, Dysuria R30.0 ; Urinary tract infection, site not specified N39.0 and Hematuria, unspecified R31.9 [place] [address] [place] [id number] [place] [address] Mar, [place] [address] [place] [id number] [place] [address] Mar, Left anterior knee pain M25.562 ; Abscess of buttock, left L02.31 and BMI 40.0-44.9, adult Z68.41 [facility], [place] [id number] [place] [address] Mar, [facility] [address] [place] [id number] [place] [address] Feb, Abrasion of right ear canal, initial encounter S00.411A ; Left wrist pain M25.532 ; Right acute serous otitis media, recurrence not specified H65.01 and BMI 40.0-44.9, adult Z68.41 [facility], [place] [address] [place] [id number] [place] [address] Jan, [place] [address] [address] Jan, [place] [address] [address] Jan, BMI 40.0-44.9, adult Z68.41 ; Pre-diabetes R73.03 ; Essential hypertension I10 ; Morbid (severe) obesity due to excess calories E66.01 ; Bilateral low back pain without sciatica M54.5 and Heartburn R12 [place] [address] [address] Jan, History of UTI Z87.440 ; Well woman exam with routine gynecological exam Z01.419 ; Screening for breast cancer Z12.31 ; Candidal vaginitis B37.3 and BMI 40.0-44.9, adult Z68.41 [place] [address] [place] [id number] [place] [address] Jan, [facility] [address] [place] [id number] [place] [address] Jan, Dysuria R30.0 ; Acute cystitis with hematuria N30.01 ; Yeast infection B37.9 and BMI 40.0-44.9, adult Z68.41 [place] [address] [address] Dec, [place] [address] [address] Dec, [place] [address] [address] Nov, History of UTI Z87.440 [facility], [place] [id number] [place] [address] Nov, UTI symptoms R39.9 ; Acute nasopharyngitis J00 and BMI 40.0-44.9, adult Z68.41 [place] [id number] [place] [address] Nov, [facility], [place] [address] [place] [id number] [place] [address] Nov, Yeast infection involving the vagina and surrounding area B37.3 [place] [address] [place] [id number] [place] [address] Nov, Yeast infection involving the vagina and surrounding area B37.3 [place] [address] [place] [id number] [place] [address] Nov, Yeast infection involving the vagina and surrounding area B37.3 ; Body mass index (BMI) of 40.0-44.9 in adult Z68.41 and Morbid (severe) obesity due to excess calories E66.01 [place] [id number] [place] [address] Oct, Abscess of groin, left L02.214 and Pre-diabetes R73.03 [place] [address] [address] September, Pre-diabetes R73.03 [place] [address] [place] [id number] [place] [address] Aug, [facility], [place] [id number] [place] [address] Jul, Bilateral low back pain without sciatica M54.5 [facility], [place] [address] [place] [id number] [place] [address] Jun, [place] [address] [place] [id number] [place] [address] Jun, [place] [address] [place] [id number] [place] [address] Jun, [facility], [place] [address] [address] May, [facility], [place] [address] [place] [id number] [place] [address] May, Ingrown left greater toenail L60.0 [facility], [place] [address] [address] May, [facility] [address] [address] May, Influenza A J10.1 ; Fever R50.9 and Body aches R52 [facility], [place] [address] [address] Apr, [facility], [place] [address] [address] Apr, [facility], [place] [address] [address] Apr, [facility] [place] [address] [address] Apr, Abscess L02.91 and Obesity (BMI 30-39.9) E66.9 [facility], [place] [address] [address] Apr, [facility], [place] [address] [place] [id number] [place] [address] Apr, [facility] [place] [address] [address] Mar, Acute non-recurrent maxillary sinusitis J01.00 [facility], [place] [address] [place] [id number] [place] [address] Feb, Heartburn R12 [facility] [place] [address] [address] Feb, Heartburn R12 ; Low back pain M54.5 ; Essential hypertension I10 ; Bilateral low back pain without sciatica M54.5 ; Anxiety F41.9 ; Pre-diabetes R73.03 ; Other obesity due to excess calories E66.09 ; Alternating constipation and diarrhea R19.8 ; Dyspepsia R10.13 ; Generalized abdominal pain R10.84 ; Rhinosinusitis J32.9 and Boil L02.92 [place] [address] [address] Jan, Heartburn R12 [place] [address] [address] Jan, [place] [address] [address] Jan, [place] [address] [address] Jan, Acute seasonal allergic rhinitis due to pollen J30.1 and Irritable bowel syndrome without diarrhea K58.9 [place] [address] [address] Dec, Low back pain M54.5 and Acute cystitis with hematuria N30.01 [place] [address] [address] Dec, Low back pain M54.5 and Acute cystitis with hematuria N30.01 [place] [address] [address] Dec, Heartburn R12 ; Essential hypertension I10 ; Acute non-recurrent maxillary sinusitis J01.00 ; Bilateral low back pain without sciatica M54.5 ; Anxiety F41.9 ; Pre-diabetes R73.03 ; Pain in right foot M79.671 ; Pain in left foot M79.672 ; Other obesity due to excess calories E66.09 and Acute cystitis with hematuria N30.01 [place] [address] [address] Dec, Bilateral low back pain without sciatica M54.5 ; Acute non-recurrent maxillary sinusitis J01.00 and Pre-diabetes R73.03 [place] [address] [address] Oct, [facility] [place] [address] [address] Aug, [facility] [place] [address] [address] Aug, Acute vaginitis N76.0 ; Urinary frequency R35.0 ; Screen for STD (sexually transmitted disease) Z11.3 and Abscess L02.91 [place] [address] [address] Aug, Plantar wart of right foot B07.0 [place] [address] [address] Jul, Plantar wart of right foot B07.0 [place] [address] [address] Jun, [place] [address] [address] Jun, Heartburn R12 ; Essential hypertension I10 ; Anxiety F41.9 ; Folliculitis L73.9 and Plantar wart of right foot B07.0 [place] [address] [address] Jun, [facility] [place] [address] [address] May, Low back pain M54.5 and Other chronic pain G89.29 [place] [address] [address] May, [place] [address] [address] May, [place] [address] [place] [id number] [place] [address] May, Heartburn R12 ; Bilateral low back pain without sciatica M54.5 ; Essential hypertension I10 ; Long-term use of high-risk medication Z79.899 ; Anxiety F41.9 ; Impacted cerumen of right ear H61.21 ; Folliculitis L73.9 ; High risk bisexual behavior Z72.53 and General medical exam Z00.00 [place] [address] [address] May, [place] [address] [address] May, [place] [address] [address] Mar, Acute nasopharyngitis J00 ; Acute intractable tension-type headache G44.201 and Cough R05 [place] [address] [place] [id number] [place] [address] Jan, [facility] [address] [address] Jan, Abscess L02.91 [facility] [place] [address] [place] [id number] [place] [address] Jan, Urinary urgency R39.15 and Urinary tract infection without hematuria, site unspecified N39.0 [place] [address] [place] [id number] [place] [address] Jan, [place] [address] [place] [id number] [place] [address] Jan, [place] [address] [address] Dec, [place] [address] [place] [id number] [place] [address] Dec, Dermatofibroma D23.9 [place] [address] [place] [address] [address] September, [facility], [place] [address] [place] [id number] [place] [address] Aug, [facility], [place] [address] [place] [id number] [place] [address] Aug, Pain in left knee M25.562 ; Heartburn R12 ; Bilateral low back pain without sciatica M54.5 ; Essential hypertension I10 ; Ingrown left big toenail L60.0 ; Chronic pain G89.29 ; Irritable bowel syndrome with constipation K58.9 and Skin infection L08.9 [facility], [place] [address] [place] [id number] [place] [address] Aug, [facility], [place] [address] [place] [id number] [place] [address] Jul, [facility], [place] [address] [place] [id number] [place] [address] Jun, [facility], [place] [id number] [place] [address] Jun, [facility], [place] [address] [place] [id number] [place] [address] Jun, [facility], [place] [id number] [place] [address] Jun, [facility], [place] [id number] [place] [address] Jun, Upper respiratory infection J06.9 ; Bilateral low back pain without sciatica M54.5 and Headache R51 [facility], [place] [address] [place] [id number] [place] [address] May, [facility], [place] [id number] [place] [address] Apr, Bilateral low back pain without sciatica M54.5 ; Upper respiratory infection J06.9 and Yeast dermatitis B37.2 [facility], [place] [address] [address] Apr, [facility], [place] [address] [place] [id number] [place] [address] Apr, [facility], [place] [id number] [place] [address] Feb, [facility], [place] [address] [place] [id number] [place] [address] Feb, [facility], [place] [address] [place] [id number] [place] [address] Feb, [facility], [place] [address] [place] [id number] [place] [address] Feb, Essential hypertension I10 ; Heartburn R12 ; Irritable bowel syndrome without diarrhea K58.9 ; Bilateral low back pain, with sciatica presence unspecified M54.5 and Upper respiratory infection J06.9 [place] [address] [place] [id number] [place] [address] Feb, [facility], [place] [address] [place] [id number] [place] [address] Feb, Generalized anxiety disorder F41.1 and Grief F43.20 [place] [id number] [place] [address] Jan, [facility], [place] [id number] [place] [address] Jan, Back pain 724.5 ; Upper respiratory infection 465.9 ; HTN (hypertension) 401.9 and Dyspepsia 536.8 [place] [address] [place] [id number] [place] [address] Dec, [facility], [place] [address] [place] [id number] [place] [address] Nov, Back pain 724.5 ; Abdominal pain, bilateral lower quadrant 789.03 ; GERD (gastroesophageal reflux disease) 530.81 ; Upper respiratory infection 465.9 ; Dysuria 788.1 and HTN (hypertension) 401.9 [facility], [place] [address] [address] Nov, [facility], [place] [address] [place] [id number] [place] [address] Nov, [facility], [place] [address] [place] [id number] [place] [address] Nov, [facility], [place] [address] [place] [id number] [place] [address] Nov, Cough 786.2 [facility], [place] [address] [place] [id number] [place] [address] Nov, Cough 786.2 [facility], [place] [address] [place] [id number] [place] [address] Oct, Unspecified episodic mood disorder 296.90 and Anxiety disorder, unspecified 300.00 [facility], [place] [address] [place] [id number] [place] [address] Oct, Abdominal pain, left upper quadrant 789.02 ; Essential hypertension, benign 401.1 ; Irritable bowel syndrome 564.1 ; Abscess 682.9 ; Heartburn 787.1 ; Acute sinusitis, unspecified 461.9 ; Muscle spasm of back 724.8 ; Cough 786.2 and Skin tag 701.9 [facility], [place] [id number] [place] [address] September, [facility], [place] [id number] [place] [address] September, [facility], [place] [address] [place] [id number] [place] [address] September, [facility], [place] [address] [place] [id number] [place] [address] Aug, [facility], [place] [id number] [place] [address] Aug, [facility] [place] [facility] [address] [id number] [place] [address] 30 Jul, 2014 [facility] [place] [facility] [address] [id number] [place] [address] 30 Jul, 2014 [facility] [place] [facility] [address] [id number] [place] [address] Jul, [facility] [place] [facility] [address] [id number] [place] [address] Jul, [facility] [place] [facility] [address] [id number] [place] [address] Jul, [facility] [place] [facility] [address] [id number] [place] [address] Jul, [facility] [place] [facility] [address] [id number] [place] [address] Jul, [facility] [place] [facility] [address] [id number] [place] [address] Jul, [facility] [place] [facility] [address] [id number] [place] [address] Jul, [facility] [place] [facility] [address] [id number] [place] [address] Jul, [facility] [place] [facility] [address] [id number] [place] [address] Jul, [facility] [place] [facility] [address] [id number] [place] [address] Jul, [facility] [place] [facility] [address] [id number] [place] [address] Jul, [facility] [place] [facility] [address] [id number] [place] [address] Jul, [facility] [place] [facility] [address] [id number] [place] [address] Jul, [facility] [place] [facility] [address] [id number] [place] [address] Jul, 2014 [facility] [place] [facility] [address] [facility] [id number] [place] [address] Jul, 2014 [facility] [place] [facility] [address] [facility] [id number] [place] [address] Jun, 2014 [facility] [place] [facility] [address] [facility] [id number] [place] [address] Jun, 2014 [facility] [place] [facility] [address] [facility] [id number] [place] [address] Jun, 2014 [facility] [place] [facility] [address] [facility] [id number] [place] [address] Jun, 2014 [facility] [place] [facility] [address] [facility] [id number] [place] [address] Jun, 2014 [facility] [place] [facility] [address] [facility] [id number] [place] [address] Jun, 2014 [facility] [place] [facility] [address] [facility] [id number] [place] [address] Jun, 2014 [facility] [place] [facility] [address] [facility] [id number] [place] [address] Jun, 2014 [facility] [place] [facility] [address] [facility] [id number] [place] [address] Apr, [facility] [place] [facility] [address] [facility] [id number] [place] [address] Apr, [facility] [place] [facility] [address] [facility] [id number] [place] [address] Apr, [facility] [place] [facility] [address] [facility] [id number] [place] [address] Apr, [facility] [place] [facility] [address] [facility] [id number] [place] [address] Apr, [facility] [place] [facility] [address] [facility] [id number] [place] [address] Apr, [facility] [place] [facility] [address] [id number] [place] [address] 15 Apr, 2014 [facility] [place] [facility] [address] [id number] [place] [address] Apr, [facility] [place] [facility] [address] [id number] [place] [address] Apr, [facility] [place] [facility] [address] [id number] [place] [address] Apr, [facility] [place] [facility] [address] [id number] [place] [address] Apr, [facility] [place] [facility] [address] [id number] [place] [address] Apr, [facility] [place] [facility] [address] [id number] [place] [address] Apr, [facility] [place] [facility] [address] [id number] [place] [address] Apr, [facility] [place] [facility] [address] [id number] [place] [address] Apr, [facility] [place] [facility] [address] [id number] [place] [address] Feb, [facility] [place] [facility] [address] [id number] [place] [address] Feb, [facility] [place] [facility] [address] [id number] [place] [address] Feb, [facility] [place] [facility] [address] [id number] [place] [address] Feb, [facility] [place] [facility] [address] [id number] [place] [address] Feb, [facility] [place] [facility] [address] [id number] [place] [address] Feb, [facility] [place] [facility] [address] [id number] [place] [address] Jan, [facility] [place] [facility] [address] [id number] [place] [address] Jan, 2013 [facility] [place] [facility] [address] [id number] [place] [address] Jan, [facility] [place] [facility] [address] [id number] [place] [address] Jan, 2013 [facility] [place] [facility] [address] [id number] [place] [address] Jan, [facility] [place] [facility] [address] [id number] [place] [address] Jan, [facility] [place] [facility] [address] [id number] [place] [address] Dec, [facility] [place] [facility] [address] [id number] [place] [address] Dec, [facility] [place] [facility] [address] [id number] [place] [address] Dec, [facility] [place] [facility] [address] [id number] [place] [address] Dec, [facility] [place] [facility] [address] [id number] [place] [address] Nov, [facility] [place] [facility] [address] [id number] [place] [address] Nov, [facility] [place] [facility] [address] [id number] [place] [address] Nov, [facility] [place] [facility] [address] [id number] [place] [address] Nov, [facility] [place] [facility] [address] [id number] [place] [address] Nov, [facility] [place] [facility] [address] [id number] [place] [address] Nov, [facility] [place] [facility] [address] [id number] [place] [address] 15 Nov, 2013 [facility] [place] [facility] [address] [id number] [place] [address] 15 Nov, 2013 [facility] [place] [facility] [address] [id number] [place] [address] Oct, [facility] [place] [facility] [address] [id number] [place] [address] Oct, [facility] [place] [facility] [address] [id number] [place] [address] Oct, [facility] [place] [facility] [address] [id number] [place] [address] Oct, [facility] [place] [facility] [address] [id number] [place] [address] Oct, [facility] [place] [facility] [address] [id number] [place] [address] Oct, [facility] [place] [facility] [address] [id number] [place] [address] Oct, [facility] [place] [facility] [address] [id number] [place] [address] Oct, [facility] [place] [facility] [address] [facility] [id number] [place] [address] Oct, [facility] [place] [facility] [address] [id number] [place] [address] Oct, [facility] [place] [facility] [address] [id number] [place] [address] Oct, [facility] [place] [facility] [address] [id number] [place] [address] Oct, [facility] [place] [facility] [address] [id number] [place] [address] Oct, [facility] [place] [facility] [address] [id number] [place] [address] Oct, [facility] [place] [facility] [address] [id number] [place] [address] 17 Oct, 2013 [facility] [place] [facility] [address] [id number] [place] [address] 17 Oct, 2013 [facility] [place] [facility] [address] [id number] [place] [address] 16 Oct, 2013 [facility] [place] [facility] [address] [id number] [place] [address] Oct, [facility] [place] [facility] [address] [id number] [place] [address] Oct, [facility] [place] [facility] [address] [id number] [place] [address] Oct, [facility] [place] [facility] [address] [id number] [place] [address] Oct, [facility] [place] [facility] [address] [id number] [place] [address] Oct, [facility] [place] [facility] [address] [id number] [place] [address] Oct, [facility] [place] [facility] [address] [id number] [place] [address] Oct, [facility] [place] [facility] [address] [id number] [place] [address] Oct, [facility] [place] [facility] [address] [id number] [place] [address] Oct, [facility] [place] [facility] [address] [id number] [place] [address] Oct, [facility] [place] [facility] [address] [id number] [place] [address] Oct, [facility] [place] [facility] [address] [id number] [place] [address] Oct, [facility] [place] [facility] [address] [id number] [place] [address] Oct, [facility] [place] [facility] [address] [id number] [place] [address] September, [facility] [place] [facility] [address] [id number] [place] [address] September, [facility] [place] [facility] [address] [id number] [place] [address] September, [facility] [place] [facility] [address] [id number] [place] [address] September, [facility] [place] [facility] [address] [id number] [place] [address] September, [facility] [place] [facility] [address] [id number] [place] [address] September, [facility] [place] [facility] [address] [id number] [place] [address] September, [facility] [place] [facility] [address] [id number] [place] [address] September, [facility] [place] [facility] [address] [id number] [place] [address] September, [facility] [place] [facility] [address] [id number] [place] [address] September, [facility] [place] [facility] [address] [id number] [place] [address] September, [facility] [place] [facility] [address] [id number] [place] [address] September, [facility] [place] [facility] [address] [id number] [place] [address] September, [facility] [place] [facility] [address] [id number] [place] [address] September, [facility] [place] [facility] [address] [id number] [place] [address] September, [facility] [place] [facility] [address] [id number] [place] [address] September, [facility] [address] [id number] [place] [address] September, [facility] [place] [facility] [address] [id number] [place] [address] September, [facility] [address] [id number] [place] [address] Aug, [facility] [place] [facility] [address] [id number] [place] [address] Aug, [facility] [place] [facility] [address] [id number] [place] [address] Aug, [facility] [place] [facility] [address] [id number] [place] [address] Aug, [facility] [place] [facility] [address] [id number] [place] [address] Aug, [facility] [address] [id number] [place] [address] Aug, [facility] [place] [facility] [address] [id number] [place] [address] Jul, [facility] [address] [id number] [place] [address] Jul, [facility] [place] [facility] [address] [id number] [place] [address] Jul, [facility] [place] [facility] [address] [id number] [place] [address] Jul, [facility] [place] [facility] [address] [id number] [place] [address] Jun, [facility] [place] [facility] [address] [id number] [place] [address] Jun, [facility] [place] [facility] [address] [id number] [place] [address] Jun, [facility] [place] [facility] [address] [id number] [place] [address] Jun, [facility] [place] [facility] [address] [id number] [place] [address] Mar, [facility] [place] [facility] [address] [id number] [place] [address] Mar, [facility] [place] [facility] [address] [id number] [place] [address] Mar, [facility] [place] [facility] [address] [id number] [place] [address] Mar, [facility] [place] [facility] [address] [id number] [place] [address] Feb, [facility] [place] [facility] [address] [id number] [place] [address] Feb, [facility] [place] [facility] [address] [id number] [place] [address] Feb, [facility] [place] [facility] [address] [id number] [place] [address] Jan, [facility] [place] [facility] [address] [id number] [place] [address] 20 Jan, 2013 [facility] [place] [facility] [address] [id number] [address] 12 Jan, 2013 [facility] [place] [facility] [address] [id number] [address] 05 Jan, 2013 [facility] [place] [facility] [address] [id number] [place] [address] Dec, [facility] [place] [facility] [address] [id number] [address] 15 Dec, 2012 [facility] [place] [facility] [address] [id number] [place] [address] Dec, [facility] [place] [facility] [address] [id number] [place] [address] Dec, [facility] [place] [facility] [address] [id number] [place] [address] Nov, [facility] [place] [facility] [address] [id number] [place] [address] Nov, [facility] [place] [facility] [address] [id number] [place] [address] Nov, [facility] [place] [facility] [address] [id number] [place] [address] Nov, [facility] [place] [facility] [address] [id number] [place] [address] Nov, [facility] [place] [facility] [address] [id number] [place] [address] Nov, [facility] [place] [facility] [address] [id number] [place] [address] Oct, [facility] [place] [facility] [address] [id number] [place] [address] Oct, [facility] [place] [facility] [address] [id number] [place] [address] Oct, [facility] [place] [facility] [address] [id number] [place] [address] Oct, [facility] [place] [facility] [address] [id number] [place] [address] 17 Oct, 2012 [facility] [place] [facility] [address] [id number] [place] [address] 16 Oct, 2012 [facility] [place] [facility] [address] [id number] [place] [address] 14 Oct, 2012 [facility] [place] [facility] [address] [id number] [place] [address] 13 Oct, 2012 [facility] [place] [facility] [address] [id number] [place] [address] Oct, [facility] [place] [facility] [address] [id number] [place] [address] Oct, [facility] [address] [id number] [place] [address] September, [facility] [address] [id number] [place] [address] September, [facility] [address] [id number] [place] [address] September, [facility] [address] [id number] [place] [address] Aug, [facility] [address] [id number] [place] [address] Aug, [facility] [address] [id number] [place] [address] Aug, [facility] [address] [id number] [place] [address] Aug, [facility] [address] [id number] [place] [address] Jul, [facility] [address] [id number] [place] [address] Jul, [facility] [address] [id number] [place] [address] Jul, [facility] [address] [id number] [place] [address] Jul, [facility] [address] [id number] [place] [address] Jul, [facility] [place] [facility] [address] [id number] [place] [address] Jul, [facility] [address] [id number] [place] [address] May, [facility] [address] [id number] [place] [address] 29 May, 2012 [facility] [address] [id number] [place] [address] May, [facility] [place] [facility] [address] [id number] [place] [address] May, [facility] [address] [id number] [place] [address] May, [facility] [place] [facility] [address] [id number] [place] [address] May, [facility] [address] [id number] [place] [address] May, [facility] [address] [id number] [place] [address] May, [facility] [address] [id number] [place] [address] 17 May, 2012 [facility] [place] [facility] [address] [id number] [place] [address] 17 May, 2012 [facility] [address] [id number] [place] [address] 16 May, 2012 [facility] [address] [id number] [place] [address] Apr, [facility] [address] [id number] [place] [address] Apr, [facility] [place] [facility] [address] [id number] [place] [address] Apr, [facility] [place] [facility] [address] [id number] [place] [address] Apr, [facility] [place] [facility] [address] [id number] [place] [address] Apr, [facility] [place] [facility] [address] [id number] [place] [address] Apr, [facility] [place] [facility] [address] [id number] [place] [address] Mar, [facility] [place] [facility] [address] [id number] [place] [address] Mar, [facility] [place] [facility] [address] [id number] [place] [address] Mar, [facility] [place] [facility] [address] [id number] [place] [address] Mar, [facility] [place] [facility] [address] [id number] [place] [address] Mar, [facility] [place] [facility] [address] [id number] [place] [address] Mar, [facility] [place] [facility] [address] [id number] [place] [address] Mar, [facility] [place] [facility] [address] [id number] [place] [address] Mar, [facility] [place] [facility] [address] [id number] [place] [address] Feb, [facility] [place] [facility] [address] [id number] [place] [address] Feb, [facility] [place] [facility] [address] [id number] [place] [address] 16 Feb, 2012 [facility] [place] [facility] [address] [id number] [place] [address] 15 Feb, 2012 [facility] [place] [facility] [address] [id number] [place] [address] 15 Feb, 2012 [facility] [place] [facility] [address] [id number] [place] [address] 13 Feb, 2012 [facility] [place] [facility] [address] [id number] [place] [address] Feb, [facility] [place] [facility] [address] [id number] [place] [address] Feb, [facility] [place] [facility] [address] [id number] [place] [address] Feb, [facility] [place] [facility] [address] [id number] [place] [address] Feb, [facility] [place] [facility] [address] [id number] [place] [address] Feb, [facility] [place] [facility] [address] [id number] [place] [address] Feb, [facility] [place] [facility] [address] [id number] [place] [address] Feb, [facility] [place] [facility] [address] [id number] [place] [address] Feb, [facility] [place] [facility] [address] [id number] [place] [address] Feb, [facility] [place] [facility] [address] [id number] [address] Feb, [facility] [place] [facility] [address] [id number] [place] [address] Feb, [facility] [place] [facility] [address] [id number] [address] Feb, [facility] [place] [facility] [address] [id number] [address] 19 Jan, 2012 [facility] [place] [facility] [address] [id number] [address] 13 Sep2011 [facility] [place] [facility] [address] [id number] [address] 11 Sep2011 [facility] [place] [facility] [address] [id number] [address] 10 Sep2011 [facility] [place] [facility] [address] [id number] [address] 05 Sep2011 [facility] [place] [facility] [address] [id number] [address] Dec, [facility] [place] [facility] [address] [id number] [place] [address] Dec, [facility] [place] [facility] [address] [id number] [place] [address] Dec, [facility] [place] [facility] [address] [id number] [place] [address] Dec, [facility] [place] [facility] [address] [id number] [place] [address] Dec, [facility] [place] [facility] [address] [id number] [place] [address] Dec, [facility] [place] [facility] [address] [id number] [place] [address] Nov, [facility] [place] [facility] [address] [id number] [place] [address] Nov, [facility] [place] [facility] [address] [id number] [place] [address] Nov, [facility] [place] [facility] [address] [id number] [place] [address] Nov, [facility] [place] [facility] [address] [id number] [place] [address] Nov, [facility] [place] [facility] [address] [id number] [place] [address] Oct, [facility] [place] [facility] [address] [id number] [place] [address] Oct, [facility] [place] [facility] [address] [id number] [place] [address] Oct, [facility] [place] [facility] [address] [id number] [place] [address] September, [facility] [place] [facility] [address] [id number] [place] [address] September, [facility] [place] [facility] [address] [id number] [place] [address] September, [facility] [address] [id number] [place] [address] September, [facility] [place] [facility] [address] [id number] [place] [address] September, [facility] [place] [facility] [address] [id number] [place] [address] September, [facility] [place] [facility] [address] [id number] [place] [address] Aug, [facility] [place] [facility] [address] [id number] [place] [address] Aug, [facility] [place] [facility] [address] [id number] [place] [address] Aug, [facility] [place] [facility] [address] [id number] [place] [address] Jun, [facility] [place] [facility] [address] [id number] [place] [address] Jun, [facility] [place] [facility] [address] [id number] [place] [address] Jun, [facility] [place] [facility] [address] [id number] [place] [address] Jun, [facility] [place] [facility] [address] [id number] [place] [address] May, [facility] [place] [facility] [address] [id number] [place] [address] May, [facility] [place] [facility] [address] [id number] [place] [address] May, [facility] [place] [facility] [address] [id number] [place] [address] May, [facility] [place] [facility] [address] [id number] [place] [address] May, [facility] [place] [facility] [address] [id number] [place] [address] Apr, [facility] [place] [facility] [address] [id number] [place] [address] Apr, [facility] [place] [facility] [address] [id number] [place] [address] Apr, [facility] [place] [facility] [address] [id number] [place] [address] Apr, [facility] [place] [facility] [address] [id number] [place] [address] Apr, [facility] [place] [facility] [address] [id number] [place] [address] Apr, [facility] [place] [facility] [address] [id number] [place] [address] Apr, [facility] [place] [facility] [address] [id number] [place] [address] Mar, [facility] [place] [facility] [address] [id number] [place] [address] Mar, [facility] [place] [facility] [address] [id number] [place] [address] Mar, [facility] [place] [facility] [address] [id number] [address] Feb, [facility] [place] [facility] [address] [id number] [address] Feb, [facility] [place] [facility] [address] [id number] [place] [address] Feb, [facility] [place] [facility] [address] [id number] [place] [address] Feb, [facility] [place] [facility] [address] [id number] [place] [address] 18 Feb, 2011 [facility] [place] [facility] [address] [id number] [place] [address] 17 Feb, 2011 [facility] [address] [id number] [place] [address] 13 Jan, 2011 [facility] [place] [facility] [address] [id number] [place] [address] 12 Jan, 2011 [facility] [address] [id number] [place] [address] September, [facility] [place] [facility] [address] [id number] [place] [address] Jun, [facility] [address] [id number] [place] [address] Apr, [facility] [address] [id number] [place] [address] Apr, [facility] [address] [id number] [place] [address] Apr, [facility] [address] [id number] [place] [address] Apr, [facility] [address] [id number] [place] [address] Apr, [facility] [address] [id number] [place] [address] 30 Mar, 2010 [facility] [place] [facility] [address] [id number] [place] [address] 24 Mar, 2010 [facility] [address] [id number] [place] [address] 23 Mar, 2010 [facility] [place] [facility] [address] [id number] [place] [address] 05 Mar, 2010 [facility] [place] [facility] [address] [id number] [place] [address] 27 Feb, 2010 [facility] [place] [facility] [address] [id number] [place] [address] 15 Jan, 2010 [facility] [place] [address] [facility] [id number] [place] [address] Mar, [facility] [place] [address] [id number] [address] 15 Jan, 2009 [facility] [place] [address] [facility] [id number] [address] Oct, [facility] [place] [address] [facility] [id number] [address] Apr, IMMUNIZATIONS No Known Immunizations SOCIAL HISTORY Never Assessed [place]AS[place] [place] VITAL SIGNS MEDICATIONS No [...]
--- OUTSIDE RECORDS SUMMARY | 2018-09-28 03:49 | XMS REPORT ---
Author Author Migration, Doctor Organization [facility] Address Unknown Phone Unavailable Care Team Providers Care Hourly Manager Name Role Phone Migration, Doctor Unavailable Unavailable PROBLEMS Type Condition ICD9-CM Code VLI85-YU Code Onset Dates Condition Status SNOMED Code Problem Essential hypertension I10 Active 95078091 Problem Bilateral low back pain without sciatica M54.5 Active 287784894 Problem Anxiety F41.9 Active 30518135 Problem Dysuria R30.0 Active 77920648 Problem Irritable bowel syndrome without diarrhea K58.9 Active 58522365 Problem Rhinosinusitis J32.9 Active 329097288 Problem Hypertriglyceridemia E78.1 Active 694269616 Problem Pre-diabetes R73.03 Active 781025127 Problem Alternating constipation and diarrhea R19.8 Active 665784805 Problem Body mass index (BMI) of 40.0-44.9 in adult Z68.41 Active 382464686 Problem Morbid (severe) obesity due to excess calories E66.01 Active 500704563 ALLERGIES No Information ENCOUNTERS Encounter Location Date Diagnosis [place] [address] [address] Aug, Acute nonintractable headache, unspecified headache type R51 ; Acute non-recurrent maxillary sinusitis J01.00 and Pre-diabetes R73.03 [place] [address] [place] [id number] [place] [address] 16 Aug, 2018 Acute vaginitis N76.0 [facility] [address] [address] Aug, Rhinosinusitis J32.9 ; Bronchitis J40 ; Folliculitis L73.9 and Morbid obesity E66.01 [place] [address] [address] Jul, [facility] [address] [address] Jul, [facility] [id number] [place] [address] Jun, [facility] [id number] [place] [address] Jun, Acute vaginitis N76.0 ; Dermatitis L30.9 ; BMI 40.0-44.9, adult Z68.41 and Morbid obesity E66.01 [facility] [address] [place] [id number] [place] [address] Jun, Vaginal discharge N89.8 ; Urinary tract infection without hematuria, site unspecified N39.0 and BMI 40.0-44.9, adult Z68.41 [place] [address] [place] [id number] [place] [address] May, [place] [address] [place] [id number] [place] [address] May, [place] [address] [place] [id number] [place] [address] Apr, Urinary tract infection, site not specified N39.0 [place] [address] [place] [id number] [place] [address] Apr, Dysuria R30.0 ; Urinary tract infection, site not specified N39.0 and Hematuria, unspecified R31.9 [place] [address] [place] [id number] [place] [address] Mar, [place] [address] [place] [id number] [place] [address] Mar, Left anterior knee pain M25.562 ; Abscess of buttock, left L02.31 and BMI 40.0-44.9, adult Z68.41 [facility] [id number] [place] [address] Mar, [facility] [address] [place] [id number] [place] [address] Feb, Abrasion of right ear canal, initial encounter S00.411A ; Left wrist pain M25.532 ; Right acute serous otitis media, recurrence not specified H65.01 and BMI 40.0-44.9, adult Z68.41 [facility] [address] [place] [id number] [place] [address] Jan, [place] [address] [address] Jan, [place] [address] [address] Jan, BMI 40.0-44.9, adult Z68.41 ; Pre-diabetes R73.03 ; Essential hypertension I10 ; Morbid (severe) obesity due to excess calories E66.01 ; Bilateral low back pain without sciatica M54.5 and Heartburn R12 [place] [address] [address] Jan, History of UTI Z87.440 ; Well woman exam with routine gynecological exam Z01.419 ; Screening for breast cancer Z12.31 ; Candidal vaginitis B37.3 and BMI 40.0-44.9, adult Z68.41 [place] [address] [place] [id number] [place] [address] Jan, [facility] [address] [place] [id number] [place] [address] Jan, Dysuria R30.0 ; Acute cystitis with hematuria N30.01 ; Yeast infection B37.9 and BMI 40.0-44.9, adult Z68.41 [place] [address] [address] Dec, [place] [address] [address] Dec, [place] [address] [address] Nov, History of UTI Z87.440 [facility] [id number] [place] [address] Nov, UTI symptoms R39.9 ; Acute nasopharyngitis J00 and BMI 40.0-44.9, adult Z68.41 [place] [id number] [place] [address] Nov, [facility] [address] [place] [id number] [place] [address] Nov, Yeast infection involving the vagina and surrounding area B37.3 [place] [address] [place] [id number] [place] [address] Nov, Yeast infection involving the vagina and surrounding area B37.3 [place] [address] [place] [id number] [place] [address] Nov, Yeast infection involving the vagina and surrounding area B37.3 ; Body mass index (BMI) of 40.0-44.9 in adult Z68.41 and Morbid (severe) obesity due to excess calories E66.01 [place] [id number] [place] [address] Oct, Abscess of groin, left L02.214 and Pre-diabetes R73.03 [place] [address] [address] September, Pre-diabetes R73.03 [place] [address] [place] [id number] [place] [address] Aug, [facility] [id number] [place] [address] Jul, Bilateral low back pain without sciatica M54.5 [facility] [address] [place] [id number] [place] [address] Jun, [place] [address] [place] [id number] [place] [address] Jun, [place] [id number] [place] [id number] [place] [address] Jun, [facility] [address] [address] May, [facility] [address] [place] [id number] [place] [address] May, Ingrown left greater toenail L60.0 [facility] [address] [address] May, [facility] [address] [address] May, Influenza A J10.1 ; Fever R50.9 and Body aches R52 [facility] [address] [address] Apr, [facility] [address] [address] Apr, [facility] [address] [address] Apr, [facility] [address] [address] Apr, Abscess L02.91 and Obesity (BMI 30-39.9) E66.9 [facility] [address] [address] Apr, [facility] [address] [place] [id number] [place] [address] Apr, [facility] [address] [address] Mar, Acute non-recurrent maxillary sinusitis J01.00 [facility] [address] [place] [id number] [place] [address] Feb, Heartburn R12 [facility] [address] [address] Feb, Heartburn R12 ; Low back pain M54.5 ; Essential hypertension I10 ; Bilateral low back pain without sciatica M54.5 ; Anxiety F41.9 ; Pre-diabetes R73.03 ; Other obesity due to excess calories E66.09 ; Alternating constipation and diarrhea R19.8 ; Dyspepsia R10.13 ; Generalized abdominal pain R10.84 ; Rhinosinusitis J32.9 and Boil L02.92 [place] [address] [address] Jan, Heartburn R12 [place] [address] [address] Jan, [place] [address] [address] Jan, [place] [address] [address] Jan, Acute seasonal allergic rhinitis due to pollen J30.1 and Irritable bowel syndrome without diarrhea K58.9 [place] [address] [address] Dec, Low back pain M54.5 and Acute cystitis with hematuria N30.01 [place] [address] [address] Dec, Low back pain M54.5 and Acute cystitis with hematuria N30.01 [place] [address] [address] Dec, Heartburn R12 ; Essential hypertension I10 ; Acute non-recurrent maxillary sinusitis J01.00 ; Bilateral low back pain without sciatica M54.5 ; Anxiety F41.9 ; Pre-diabetes R73.03 ; Pain in right foot M79.671 ; Pain in left foot M79.672 ; Other obesity due to excess calories E66.09 and Acute cystitis with hematuria N30.01 [place] [address] [address] Dec, Bilateral low back pain without sciatica M54.5 ; Acute non-recurrent maxillary sinusitis J01.00 and Pre-diabetes R73.03 [place] [address] [address] Oct, [facility] [place] [address] [address] Aug, [facility] [place] [address] [address] Aug, Acute vaginitis N76.0 ; Urinary frequency R35.0 ; Screen for STD (sexually transmitted disease) Z11.3 and Abscess L02.91 [place] [address] [address] Aug, Plantar wart of right foot B07.0 [place] [address] [address] Jul, Plantar wart of right foot B07.0 [place] [address] [address] Jun, [place] [address] [address] Jun, Heartburn R12 ; Essential hypertension I10 ; Anxiety F41.9 ; Folliculitis L73.9 and Plantar wart of right foot B07.0 [place] [address] [address] Jun, [facility] [place] [address] [address] May, Low back pain M54.5 and Other chronic pain G89.29 [place] [address] [address] May, [place] [address] [address] May, [place] [address] [place] [id number] [place] [address] May, Heartburn R12 ; Bilateral low back pain without sciatica M54.5 ; Essential hypertension I10 ; Long-term use of high-risk medication Z79.899 ; Anxiety F41.9 ; Impacted cerumen of right ear H61.21 ; Folliculitis L73.9 ; High risk bisexual behavior Z72.53 and General medical exam Z00.00 [place] [address] [address] May, [place] [address] [address] May, [place] [address] [address] Mar, Acute nasopharyngitis J00 ; Acute intractable tension-type headache G44.201 and Cough R05 [place] [address] [place] [id number] [place] [address] Jan, [facility] [address] [address] Jan, Abscess L02.91 [facility] [place] [address] [place] [id number] [place] [address] Jan, Urinary urgency R39.15 and Urinary tract infection without hematuria, site unspecified N39.0 [place] [address] [place] [id number] [place] [address] Jan, [place] [address] [place] [id number] [place] [address] Jan, [place] [address] [address] Dec, [place] [address] [place] [id number] [place] [address] Dec, Dermatofibroma D23.9 [place] [address] [place] [address] [address] September, [facility] [address] [place] [id number] [place] [address] Aug, [facility] [address] [place] [id number] [place] [address] Aug, Pain in left knee M25.562 ; Heartburn R12 ; Bilateral low back pain without sciatica M54.5 ; Essential hypertension I10 ; Ingrown left big toenail L60.0 ; Chronic pain G89.29 ; Irritable bowel syndrome with constipation K58.9 and Skin infection L08.9 [facility] [address] [place] [id number] [place] [address] Aug, [facility] [address] [place] [id number] [place] [address] Jul, [facility] [address] [place] [id number] [place] [address] Jun, [facility] [id number] [place] [address] Jun, [facility] [address] [place] [id number] [place] [address] Jun, [facility] [id number] [place] [address] Jun, [facility] [id number] [place] [address] Jun, Upper respiratory infection J06.9 ; Bilateral low back pain without sciatica M54.5 and Headache R51 [facility] [address] [place] [id number] [place] [address] May, [facility] [id number] [place] [address] Apr, Bilateral low back pain without sciatica M54.5 ; Upper respiratory infection J06.9 and Yeast dermatitis B37.2 [facility] [address] [address] Apr, [facility] [address] [place] [id number] [place] [address] Apr, [facility] [id number] [place] [address] Feb, [facility] [address] [place] [id number] [place] [address] Feb, [facility] [address] [place] [id number] [place] [address] Feb, [facility] [address] [place] [id number] [place] [address] Feb, Essential hypertension I10 ; Heartburn R12 ; Irritable bowel syndrome without diarrhea K58.9 ; Bilateral low back pain, with sciatica presence unspecified M54.5 and Upper respiratory infection J06.9 [place] [address] [place] [id number] [place] [address] Feb, [facility] [address] [place] [id number] [place] [address] Feb, Generalized anxiety disorder F41.1 and Grief F43.20 [place] [id number] [place] [address] Jan, [facility] [id number] [place] [address] Jan, Back pain 724.5 ; Upper respiratory infection 465.9 ; HTN (hypertension) 401.9 and Dyspepsia 536.8 [place] [address] [place] [id number] [place] [address] Dec, [facility] [address] [place] [id number] [place] [address] Nov, Back pain 724.5 ; Abdominal pain, bilateral lower quadrant 789.03 ; GERD (gastroesophageal reflux disease) 530.81 ; Upper respiratory infection 465.9 ; Dysuria 788.1 and HTN (hypertension) 401.9 [facility] [address] [address] Nov, [facility] [address] [place] [id number] [place] [address] Nov, [facility] [address] [place] [id number] [place] [address] Nov, [facility] [address] [place] [id number] [place] [address] Nov, Cough 786.2 [facility] [address] [place] [id number] [place] [address] Nov, Cough 786.2 [facility] [address] [place] [id number] [place] [address] Oct, Unspecified episodic mood disorder 296.90 and Anxiety disorder, unspecified 300.00 [facility] [address] [place] [id number] [place] [address] Oct, Abdominal pain, left upper quadrant 789.02 ; Essential hypertension, benign 401.1 ; Irritable bowel syndrome 564.1 ; Abscess 682.9 ; Heartburn 787.1 ; Acute sinusitis, unspecified 461.9 ; Muscle spasm of back 724.8 ; Cough 786.2 and Skin tag 701.9 [facility] [id number] [place] [address] September, [facility] [id number] [place] [address] September, [facility] [address] [place] [id number] [place] [address] September, [facility] [address] [place] [id number] [place] [address] Aug, [facility] [id number] [place] [address] Aug, [facility] [place] [facility] [address] [id number] [place] [address] 30 Jul, 2014 [facility] [place] [facility] [address] [id number] [place] [address] 30 Jul, 2014 [facility] [place] [facility] [address] [id number] [place] [address] Jul, [facility] [place] [facility] [address] [id number] [place] [address] Jul, [facility] [place] [facility] [address] [id number] [place] [address] Jul, [facility] [place] [facility] [address] [id number] [place] [address] Jul, [facility] [place] [facility] [address] [id number] [place] [address] Jul, [facility] [place] [facility] [address] [id number] [place] [address] Jul, [facility] [place] [facility] [address] [id number] [place] [address] Jul, [facility] [place] [facility] [address] [id number] [place] [address] Jul, [facility] [place] [facility] [address] [id number] [place] [address] Jul, [facility] [place] [facility] [address] [id number] [place] [address] Jul, [facility] [place] [facility] [address] [id number] [place] [address] Jul, [facility] [place] [facility] [address] [id number] [place] [address] Jul, [facility] [place] [facility] [address] [id number] [place] [address] Jul, [facility] [place] [facility] [address] [id number] [place] [address] Jul, 2014 [facility] [place] [facility] [address] [facility] [id number] [place] [address] Jul, 2014 [facility] [place] [facility] [address] [facility] [id number] [place] [address] Jun, 2014 [facility] [place] [facility] [address] [facility] [id number] [place] [address] Jun, 2014 [facility] [place] [facility] [address] [facility] [id number] [place] [address] Jun, 2014 [facility] [place] [facility] [address] [facility] [id number] [place] [address] Jun, 2014 [facility] [place] [facility] [address] [facility] [id number] [place] [address] Jun, 2014 [facility] [place] [facility] [address] [facility] [id number] [place] [address] Jun, 2014 [facility] [place] [facility] [address] [facility] [id number] [place] [address] Jun, 2014 [facility] [place] [facility] [address] [facility] [id number] [place] [address] Jun, 2014 [facility] [place] [facility] [address] [facility] [id number] [place] [address] Apr, [facility] [place] [facility] [address] [facility] [id number] [place] [address] Apr, [facility] [place] [facility] [address] [facility] [id number] [place] [address] Apr, [facility] [place] [facility] [address] [facility] [id number] [place] [address] Apr, [facility] [place] [facility] [address] [facility] [id number] [place] [address] Apr, [facility] [place] [facility] [address] [facility] [id number] [place] [address] Apr, [facility] [place] [facility] [address] [id number] [place] [address] 15 Apr, 2014 [facility] [place] [facility] [address] [id number] [place] [address] Apr, [facility] [place] [facility] [address] [id number] [place] [address] Apr, [facility] [place] [facility] [address] [id number] [place] [address] Apr, [facility] [place] [facility] [address] [id number] [place] [address] Apr, [facility] [place] [facility] [address] [id number] [place] [address] Apr, [facility] [place] [facility] [address] [id number] [place] [address] Apr, [facility] [place] [facility] [address] [id number] [place] [address] Apr, [facility] [place] [facility] [address] [id number] [place] [address] Apr, [facility] [place] [facility] [address] [id number] [place] [address] Feb, [facility] [place] [facility] [address] [id number] [place] [address] Feb, [facility] [place] [facility] [address] [id number] [place] [address] Feb, [facility] [place] [facility] [address] [id number] [place] [address] Feb, [facility] [place] [facility] [address] [id number] [place] [address] Feb, [facility] [place] [facility] [address] [id number] [place] [address] Feb, [facility] [place] [facility] [address] [id number] [place] [address] Jan, [facility] [place] [facility] [address] [id number] [place] [address] Jan, 2013 [facility] [place] [facility] [address] [id number] [place] [address] Jan, [facility] [place] [facility] [address] [id number] [place] [address] Jan, 2013 [facility] [place] [facility] [address] [id number] [place] [address] Jan, [facility] [place] [facility] [address] [id number] [place] [address] Jan, [facility] [place] [facility] [address] [id number] [place] [address] Dec, [facility] [place] [facility] [address] [id number] [place] [address] Dec, [facility] [place] [facility] [address] [id number] [place] [address] Dec, [facility] [place] [facility] [address] [id number] [place] [address] Dec, [facility] [place] [facility] [address] [id number] [place] [address] Nov, [facility] [place] [facility] [address] [id number] [place] [address] Nov, [facility] [place] [facility] [address] [id number] [place] [address] Nov, [facility] [place] [facility] [address] [id number] [place] [address] Nov, [facility] [place] [facility] [address] [id number] [place] [address] Nov, [facility] [place] [facility] [address] [id number] [place] [address] Nov, [facility] [place] [facility] [address] [id number] [place] [address] 15 Nov, 2013 [facility] [place] [facility] [address] [id number] [place] [address] 15 Nov, 2013 [facility] [place] [facility] [address] [id number] [place] [address] Oct, [facility] [place] [facility] [address] [id number] [place] [address] Oct, [facility] [place] [facility] [address] [id number] [place] [address] Oct, [facility] [place] [facility] [address] [id number] [place] [address] Oct, [facility] [place] [facility] [address] [id number] [place] [address] Oct, [facility] [place] [facility] [address] [id number] [place] [address] Oct, [facility] [place] [facility] [address] [id number] [place] [address] Oct, [facility] [place] [facility] [address] [id number] [place] [address] Oct, [facility] [place] [facility] [address] [facility] [id number] [place] [address] Oct, [facility] [place] [facility] [address] [id number] [place] [address] Oct, [facility] [place] [facility] [address] [id number] [place] [address] Oct, [facility] [place] [facility] [address] [id number] [place] [address] Oct, [facility] [place] [facility] [address] [id number] [place] [address] Oct, [facility] [place] [facility] [address] [id number] [place] [address] Oct, [facility] [place] [facility] [address] [id number] [place] [address] 17 Oct, 2013 [facility] [place] [facility] [address] [address] [id number] [place] [address] 17 Oct, 2013 [facility] [place] [facility] [address] [id number] [place] [address] 16 Oct, 2013 [facility] [place] [facility] [address] [id number] [place] [address] Oct, [facility] [place] [facility] [address] [id number] [place] [address] Oct, [facility] [place] [facility] [address] [id number] [place] [address] Oct, [facility] [place] [facility] [address] [id number] [place] [address] Oct, [facility] [place] [facility] [address] [id number] [place] [address] Oct, [facility] [place] [facility] [address] [id number] [place] [address] Oct, [facility] [place] [facility] [address] [id number] [place] [address] Oct, [facility] [place] [facility] [address] [id number] [place] [address] Oct, [facility] [place] [facility] [address] [id number] [place] [address] Oct, [facility] [place] [facility] [address] [id number] [place] [address] Oct, [facility] [place] [facility] [address] [id number] [place] [address] Oct, [facility] [place] [facility] [address] [id number] [place] [address] Oct, [facility] [place] [facility] [address] [id number] [place] [address] Oct, [facility] [place] [facility] [address] [id number] [place] [address] September, [facility] [place] [facility] [address] [id number] [place] [address] September, [facility] [place] [facility] [address] [id number] [place] [address] September, [facility] [place] [facility] [address] [id number] [place] [address] September, [facility] [place] [facility] [address] [id number] [place] [address] September, [facility] [place] [facility] [address] [id number] [place] [address] September, [facility] [place] [facility] [address] [id number] [place] [address] September, [facility] [place] [facility] [address] [id number] [place] [address] September, [facility] [place] [facility] [address] [id number] [place] [address] September, [facility] [place] [facility] [address] [id number] [place] [address] September, [facility] [place] [facility] [address] [id number] [place] [address] September, [facility] [place] [facility] [address] [id number] [place] [address] September, [facility] [place] [facility] [address] [id number] [place] [address] September, [facility] [place] [facility] [address] [id number] [place] [address] September, [facility] [place] [facility] [address] [id number] [place] [address] September, [facility] [place] [facility] [address] [id number] [place] [address] September, [facility] [address] [id number] [place] [address] September, [facility] [place] [facility] [address] [id number] [place] [address] September, [facility] [address] [id number] [place] [address] Aug, [facility] [place] [facility] [address] [id number] [place] [address] Aug, [facility] [place] [facility] [address] [id number] [place] [address] Aug, [facility] [place] [facility] [address] [id number] [place] [address] Aug, [facility] [place] [facility] [address] [id number] [place] [address] Aug, [facility] [address] [id number] [place] [address] Aug, [facility] [place] [facility] [address] [id number] [place] [address] Jul, [facility] [address] [id number] [place] [address] Jul, [facility] [place] [facility] [address] [id number] [place] [address] Jul, [facility] [place] [facility] [address] [id number] [place] [address] Jul, [facility] [place] [facility] [address] [id number] [place] [address] Jun, [facility] [place] [facility] [address] [id number] [place] [address] Jun, [facility] [place] [facility] [address] [id number] [place] [address] Jun, [facility] [place] [facility] [address] [id number] [place] [address] Jun, [facility] [place] [facility] [address] [id number] [place] [address] Mar, [facility] [place] [facility] [address] [id number] [place] [address] Mar, [facility] [place] [facility] [address] [id number] [place] [address] Mar, [facility] [place] [facility] [address] [id number] [place] [address] Mar, [facility] [place] [facility] [address] [id number] [place] [address] Feb, [facility] [place] [facility] [address] [id number] [place] [address] Feb, [facility] [place] [facility] [address] [id number] [place] [address] Feb, [facility] [place] [facility] [address] [id number] [place] [address] Jan, [facility] [place] [facility] [address] [id number] [place] [address] 20 Jan, 2013 [facility] [place] [facility] [address] [id number] [address] 12 Jan, 2013 [facility] [place] [facility] [address] [id number] [address] 05 Jan, 2013 [facility] [place] [facility] [address] [id number] [place] [address] Dec, [facility] [place] [facility] [address] [id number] [address] 15 Dec, 2012 [facility] [place] [facility] [address] [id number] [place] [address] Dec, [facility] [place] [facility] [address] [id number] [place] [address] Dec, [facility] [place] [facility] [address] [id number] [place] [address] Nov, [facility] [place] [facility] [address] [id number] [place] [address] Nov, [facility] [place] [facility] [address] [id number] [place] [address] Nov, [facility] [place] [facility] [address] [id number] [place] [address] Nov, [facility] [place] [facility] [address] [id number] [place] [address] Nov, [facility] [place] [facility] [address] [id number] [place] [address] Nov, [facility] [place] [facility] [address] [id number] [place] [address] Oct, [facility] [place] [facility] [address] [id number] [place] [address] Oct, [facility] [place] [facility] [address] [id number] [place] [address] Oct, [facility] [place] [facility] [address] [id number] [place] [address] Oct, [facility] [place] [facility] [address] [id number] [place] [address] 17 Oct, 2012 [facility] [place] [facility] [address] [id number] [place] [address] 16 Oct, 2012 [facility] [place] [facility] [address] [id number] [place] [address] 14 Oct, 2012 [facility] [place] [facility] [address] [id number] [place] [address] 13 Oct, 2012 [facility] [place] [facility] [address] [id number] [place] [address] Oct, [facility] [place] [facility] [address] [id number] [place] [address] Oct, [facility] [address] [id number] [place] [address] September, [facility] [address] [id number] [place] [address] September, [facility] [address] [id number] [place] [address] September, [facility] [address] [id number] [place] [address] Aug, [facility] [address] [id number] [place] [address] Aug, [facility] [address] [id number] [place] [address] Aug, [facility] [address] [id number] [place] [address] Aug, [facility] [address] [id number] [place] [address] Jul, [facility] [address] [id number] [place] [address] Jul, [facility] [address] [id number] [place] [address] Jul, [facility] [address] [id number] [place] [address] Jul, [facility] [address] [id number] [place] [address] Jul, [facility] [place] [facility] [address] [id number] [place] [address] Jul, [facility] [address] [id number] [place] [address] May, [facility] [address] [id number] [place] [address] 29 May, 2012 [facility] [address] [id number] [place] [address] May, [facility] [place] [facility] [address] [id number] [place] [address] May, [facility] [address] [id number] [place] [address] May, [facility] [place] [facility] [address] [id number] [place] [address] May, [facility] [address] [id number] [place] [address] May, [facility] [address] [id number] [place] [address] May, [facility] [address] [id number] [place] [address] 17 May, 2012 [facility] [place] [facility] [address] [id number] [place] [address] 17 May, 2012 [facility] [address] [id number] [place] [address] 16 May, 2012 [facility] [address] [id number] [place] [address] Apr, [facility] [address] [id number] [place] [address] Apr, [facility] [place] [facility] [address] [id number] [place] [address] Apr, [facility] [place] [facility] [address] [id number] [place] [address] Apr, [facility] [place] [facility] [address] [id number] [place] [address] Apr, [facility] [place] [facility] [address] [id number] [place] [address] Apr, [facility] [place] [facility] [address] [id number] [place] [address] Mar, [facility] [place] [facility] [address] [id number] [place] [address] Mar, [facility] [place] [facility] [address] [id number] [place] [address] Mar, [facility] [place] [facility] [address] [id number] [place] [address] Mar, [facility] [place] [facility] [address] [id number] [place] [address] Mar, [facility] [place] [facility] [address] [id number] [place] [address] Mar, [facility] [place] [facility] [address] [id number] [place] [address] Mar, [facility] [place] [facility] [address] [id number] [place] [address] Mar, [facility] [place] [facility] [address] [id number] [place] [address] Feb, [facility] [place] [facility] [address] [id number] [place] [address] Feb, [facility] [place] [facility] [address] [id number] [place] [address] 16 Feb, 2012 [facility] [place] [facility] [address] [id number] [place] [address] 15 Feb, 2012 [facility] [place] [facility] [address] [id number] [place] [address] 15 Feb, 2012 [facility] [place] [facility] [address] [id number] [place] [address] 13 Feb, 2012 [facility] [place] [facility] [address] [id number] [place] [address] Feb, [facility] [place] [facility] [address] [id number] [place] [address] Feb, [facility] [place] [facility] [address] [id number] [place] [address] Feb, [facility] [place] [facility] [address] [id number] [place] [address] Feb, [facility] [place] [facility] [address] [id number] [place] [address] Feb, [facility] [place] [facility] [address] [id number] [place] [address] Feb, [facility] [place] [facility] [address] [id number] [place] [address] Feb, [facility] [place] [facility] [address] [id number] [place] [address] Feb, [facility] [place] [facility] [address] [id number] [place] [address] Feb, [facility] [place] [facility] [address] [id number] [address] Feb, [facility] [place] [facility] [address] [id number] [place] [address] Feb, [facility] [place] [facility] [address] [id number] [address] Feb, [facility] [place] [facility] [address] [id number] [place] [address] 19 Jan, 2012 [facility] [place] [facility] [address] [id number] [place] [address] 13 Sep2011 [facility] [place] [facility] [address] [id number] [address] 11 Sep2011 [facility] [place] [facility] [address] [id number] [address] 10 Sep2011 [facility] [place] [facility] [address] [id number] [address] 05 Sep2011 [facility] [place] [facility] [address] [id number] [address] Dec, [facility] [place] [facility] [address] [id number] [place] [address] Dec, [facility] [place] [facility] [address] [id number] [place] [address] Dec, [facility] [place] [facility] [address] [id number] [place] [address] Dec, [facility] [place] [facility] [address] [id number] [place] [address] Dec, [facility] [place] [facility] [address] [id number] [place] [address] Dec, [facility] [place] [facility] [address] [id number] [place] [address] Nov, [facility] [place] [facility] [address] [id number] [place] [address] Nov, [facility] [place] [facility] [address] [id number] [place] [address] Nov, [facility] [place] [facility] [address] [id number] [place] [address] Nov, [facility] [place] [facility] [address] [id number] [place] [address] Nov, [facility] [place] [facility] [address] [id number] [place] [address] Oct, [facility] [place] [facility] [address] [id number] [place] [address] Oct, [facility] [place] [facility] [address] [id number] [place] [address] Oct, [facility] [place] [facility] [address] [id number] [place] [address] September, [facility] [place] [facility] [address] [id number] [place] [address] September, [facility] [place] [facility] [address] [id number] [place] [address] September, [facility] [address] [id number] [place] [address] September, [facility] [place] [facility] [address] [id number] [place] [address] September, [facility] [place] [facility] [address] [id number] [place] [address] September, [facility] [place] [facility] [address] [id number] [place] [address] Aug, [facility] [place] [facility] [address] [id number] [place] [address] Aug, [facility] [place] [facility] [address] [id number] [place] [address] Aug, [facility] [place] [facility] [address] [id number] [place] [address] Jun, [facility] [place] [facility] [address] [id number] [place] [address] Jun, [facility] [place] [facility] [address] [id number] [place] [address] Jun, [facility] [place] [facility] [address] [id number] [place] [address] Jun, [facility] [place] [facility] [address] [id number] [place] [address] May, [facility] [place] [facility] [address] [id number] [place] [address] May, [facility] [place] [facility] [address] [id number] [place] [address] May, [facility] [place] [facility] [address] [id number] [place] [address] May, [facility] [place] [facility] [address] [id number] [place] [address] May, [facility] [place] [facility] [address] [id number] [place] [address] Apr, [facility] [place] [facility] [address] [id number] [place] [address] Apr, [facility] [place] [facility] [address] [id number] [place] [address] Apr, [facility] [place] [facility] [address] [id number] [place] [address] Apr, [facility] [place] [facility] [address] [id number] [place] [address] Apr, [facility] [place] [facility] [address] [id number] [place] [address] Apr, [facility] [place] [facility] [address] [id number] [place] [address] Apr, [facility] [place] [facility] [address] [id number] [place] [address] Mar, [facility] [place] [facility] [address] [id number] [place] [address] Mar, [facility] [place] [facility] [address] [id number] [place] [address] Mar, [facility] [place] [facility] [address] [id number] [address] Feb, [facility] [place] [facility] [address] [id number] [address] Feb, [facility] [place] [facility] [address] [id number] [place] [address] Feb, [facility] [place] [facility] [address] [id number] [place] [address] Feb, [facility] [place] [facility] [address] [id number] [place] [address] 18 Feb, 2011 [facility] [place] [facility] [address] [id number] [place] [address] 17 Feb, 2011 [facility] [address] [id number] [place] [address] 13 Jan, 2011 [facility] [place] [facility] [address] [id number] [place] [address] 12 Jan, 2011 [facility] [address] [id number] [place] [address] September, [facility] [place] [facility] [address] [id number] [place] [address] Jun, [facility] [address] [id number] [place] [address] Apr, [facility] [address] [id number] [place] [address] Apr, [facility] [address] [id number] [place] [address] Apr, [facility] [address] [id number] [place] [address] Apr, [facility] [address] [id number] [place] [address] Apr, [facility] [address] [id number] [place] [address] 30 Mar, 2010 [facility] [place] [facility] [address] [id number] [place] [address] 24 Mar, 2010 [facility] [address] [id number] [place] [address] 23 Mar, 2010 [facility] [place] [facility] [address] [id number] [place] [address] 05 Mar, 2010 [facility] [place] [facility] [address] [id number] [place] [address] 27 Feb, 2010 [facility] [place] [facility] [address] [id number] [place] [address] 15 Jan, 2010 [facility] [address] [id number] [place] [address] Mar, [facility] [address] [id number] [address] 15 Jan, 2009 [facility] [address] [id number] [place] [address] Oct, [facility] [address] [id number] [place] [address] Apr, IMMUNIZATIONS No Known Immunizations SOCIAL HISTORY Never Assessed REASON FOR VISIT EMR-[facility] PLAN OF CARE VITAL SIGNS MEDICATIONS No [...]
--- OUTSIDE RECORDS SUMMARY | 2018-09-28 03:50 | XMS REPORT ---
Author Author Migration, Doctor Organization [facility] Address Unknown Phone Unavailable Care Team Providers Care Nurses Educator Name Role Phone Migration, Doctor Unavailable Unavailable PROBLEMS Type Condition ICD9-CM Code JMA83-CL Code Onset Dates Condition Status SNOMED Code Problem Essential hypertension I10 Active 89237126 Problem Bilateral low back pain without sciatica M54.5 Active 542750184 Problem Anxiety F41.9 Active 02133331 Problem Dysuria R30.0 Active 96971521 Problem Irritable bowel syndrome without diarrhea K58.9 Active 00805612 Problem Rhinosinusitis J32.9 Active 270886219 Problem Hypertriglyceridemia E78.1 Active 264403700 Problem Pre-diabetes R73.03 Active 584122585 Problem Alternating constipation and diarrhea R19.8 Active 733195773 Problem Body mass index (BMI) of 40.0-44.9 in adult Z68.41 Active 498889324 Problem Morbid (severe) obesity due to excess calories E66.01 Active 493556364 ALLERGIES No Information ENCOUNTERS Encounter Location Date Diagnosis [place] [address] [address] Aug, Acute nonintractable headache, unspecified headache type R51 ; Acute non-recurrent maxillary sinusitis J01.00 and Pre-diabetes R73.03 [place] [address] [place] [id number] [place] [address] 16 Aug, 2018 Acute vaginitis N76.0 [facility] [address] [address] Aug, Rhinosinusitis J32.9 ; Bronchitis J40 ; Folliculitis L73.9 and Morbid obesity E66.01 [place] [address] [address] Jul, [facility] [address] [address] Jul, [facility] [id number] [place] [address] Jun, [facility] [address] [place] [address] Jun, Acute vaginitis N76.0 ; Dermatitis L30.9 ; BMI 40.0-44.9, adult Z68.41 and Morbid obesity E66.01 [facility] [address] [place] [id number] [place] [address] Jun, Vaginal discharge N89.8 ; Urinary tract infection without hematuria, site unspecified N39.0 and BMI 40.0-44.9, adult Z68.41 [place] [address] [place] [id number] [place] [address] May, [place] [address] [place] [id number] [place] [address] May, [place] [address] [place] [id number] [place] [address] Apr, Urinary tract infection, site not specified N39.0 [place] [address] [place] [id number] [place] [address] Apr, Dysuria R30.0 ; Urinary tract infection, site not specified N39.0 and Hematuria, unspecified R31.9 [place] [address] [place] [id number] [place] [address] Mar, [place] [address] [place] [id number] [place] [address] Mar, Left anterior knee pain M25.562 ; Abscess of buttock, left L02.31 and BMI 40.0-44.9, adult Z68.41 [facility] [address] [place] [address] Mar, [facility] [address] [place] [id number] [place] [address] Feb, Abrasion of right ear canal, initial encounter S00.411A ; Left wrist pain M25.532 ; Right acute serous otitis media, recurrence not specified H65.01 and BMI 40.0-44.9, adult Z68.41 [facility] [address] [place] [id number] [place] [address] Jan, [place] [address] [address] Jan, [place] [address] [address] Jan, BMI 40.0-44.9, adult Z68.41 ; Pre-diabetes R73.03 ; Essential hypertension I10 ; Morbid (severe) obesity due to excess calories E66.01 ; Bilateral low back pain without sciatica M54.5 and Heartburn R12 [place] [address] [address] Jan, History of UTI Z87.440 ; Well woman exam with routine gynecological exam Z01.419 ; Screening for breast cancer Z12.31 ; Candidal vaginitis B37.3 and BMI 40.0-44.9, adult Z68.41 [place] [address] [place] [id number] [place] [address] Jan, [facility] [address] [place] [id number] [place] [address] Jan, Dysuria R30.0 ; Acute cystitis with hematuria N30.01 ; Yeast infection B37.9 and BMI 40.0-44.9, adult Z68.41 [place] [address] [address] Dec, [place] [address] [address] Dec, [place] [address] [address] Nov, History of UTI Z87.440 [facility] [address] [place] [address] Nov, UTI symptoms R39.9 ; Acute nasopharyngitis J00 and BMI 40.0-44.9, adult Z68.41 [place] [address] [place] [address] Nov, [facility] [address] [place] [id number] [place] [address] Nov, Yeast infection involving the vagina and surrounding area B37.3 [place] [address] [place] [id number] [place] [address] Nov, Yeast infection involving the vagina and surrounding area B37.3 [place] [address] [place] [id number] [place] [address] Nov, Yeast infection involving the vagina and surrounding area B37.3 ; Body mass index (BMI) of 40.0-44.9 in adult Z68.41 and Morbid (severe) obesity due to excess calories E66.01 [place] [address] [place] [address] Oct, Abscess of groin, left L02.214 and Pre-diabetes R73.03 [place] [address] [address] September, Pre-diabetes R73.03 [place] [address] [place] [id number] [place] [address] Aug, [facility] [address] [place] [address] Jul, Bilateral low back pain without sciatica M54.5 [facility] [address] [place] [id number] [place] [address] Jun, [place] [address] [place] [id number] [place] [address] Jun, [place] [address] [place] [id number] [place] [address] Jun, [facility] [address] [address] May, [facility] [address] [place] [id number] [place] [address] May, Ingrown left greater toenail L60.0 [facility] [address] [address] May, [facility] [address] [address] May, Influenza A J10.1 ; Fever R50.9 and Body aches R52 [facility] [address] [address] Apr, [facility] [address] [address] Apr, [facility] [address] [address] Apr, [facility] [address] [address] Apr, Abscess L02.91 and Obesity (BMI 30-39.9) E66.9 [facility] [address] [address] Apr, [facility] [address] [place] [id number] [place] [address] Apr, [facility] [address] [address] Mar, Acute non-recurrent maxillary sinusitis J01.00 [facility] [address] [place] [id number] [place] [address] Feb, Heartburn R12 [facility] [address] [address] Feb, Heartburn R12 ; Low back pain M54.5 ; Essential hypertension I10 ; Bilateral low back pain without sciatica M54.5 ; Anxiety F41.9 ; Pre-diabetes R73.03 ; Other obesity due to excess calories E66.09 ; Alternating constipation and diarrhea R19.8 ; Dyspepsia R10.13 ; Generalized abdominal pain R10.84 ; Rhinosinusitis J32.9 and Boil L02.92 [place] [address] [address] Jan, Heartburn R12 [place] [address] [address] Jan, [place] [address] [address] Jan, [place] [address] [address] Jan, Acute seasonal allergic rhinitis due to pollen J30.1 and Irritable bowel syndrome without diarrhea K58.9 [place] [address] [address] Dec, Low back pain M54.5 and Acute cystitis with hematuria N30.01 [place] [address] [address] Dec, Low back pain M54.5 and Acute cystitis with hematuria N30.01 [place] [address] [address] Dec, Heartburn R12 ; Essential hypertension I10 ; Acute non-recurrent maxillary sinusitis J01.00 ; Bilateral low back pain without sciatica M54.5 ; Anxiety F41.9 ; Pre-diabetes R73.03 ; Pain in right foot M79.671 ; Pain in left foot M79.672 ; Other obesity due to excess calories E66.09 and Acute cystitis with hematuria N30.01 [place] [address] [address] Dec, Bilateral low back pain without sciatica M54.5 ; Acute non-recurrent maxillary sinusitis J01.00 and Pre-diabetes R73.03 [place] [address] [address] Oct, [facility] [place] [address] [address] Aug, [facility] [place] [address] [address] Aug, Acute vaginitis N76.0 ; Urinary frequency R35.0 ; Screen for STD (sexually transmitted disease) Z11.3 and Abscess L02.91 [place] [address] [address] Aug, Plantar wart of right foot B07.0 [place] [address] [address] Jul, Plantar wart of right foot B07.0 [place] [address] [address] Jun, [place] [address] [address] Jun, Heartburn R12 ; Essential hypertension I10 ; Anxiety F41.9 ; Folliculitis L73.9 and Plantar wart of right foot B07.0 [place] [address] [address] Jun, [facility] [place] [address] [address] May, Low back pain M54.5 and Other chronic pain G89.29 [place] [address] [address] May, [place] [address] [address] May, [place] [address] [place] [id number] [place] [address] May, Heartburn R12 ; Bilateral low back pain without sciatica M54.5 ; Essential hypertension I10 ; Long-term use of high-risk medication Z79.899 ; Anxiety F41.9 ; Impacted cerumen of right ear H61.21 ; Folliculitis L73.9 ; High risk bisexual behavior Z72.53 and General medical exam Z00.00 [place] [address] [address] May, [place] [address] [address] May, [place] [address] [address] Mar, Acute nasopharyngitis J00 ; Acute intractable tension-type headache G44.201 and Cough R05 [place] [address] [place] [id number] [place] [address] Jan, [facility] [address] [address] Jan, Abscess L02.91 [facility] [place] [address] [place] [id number] [place] [address] Jan, Urinary urgency R39.15 and Urinary tract infection without hematuria, site unspecified N39.0 [place] [address] [place] [id number] [place] [address] Jan, [place] [address] [place] [id number] [place] [address] Jan, [place] [address] [address] Dec, [place] [address] [place] [id number] [place] [address] Dec, Dermatofibroma D23.9 [place] [address] [place] [address] September, [facility] [address] [place] [id number] [place] [address] Aug, [facility] [address] [place] [id number] [place] [address] Aug, Pain in left knee M25.562 ; Heartburn R12 ; Bilateral low back pain without sciatica M54.5 ; Essential hypertension I10 ; Ingrown left big toenail L60.0 ; Chronic pain G89.29 ; Irritable bowel syndrome with constipation K58.9 and Skin infection L08.9 [facility] [address] [place] [id number] [place] [address] Aug, [facility] [address] [place] [id number] [place] [address] Jul, [facility] [address] [place] [id number] [place] [address] Jun, [facility] [address] [place] [address] Jun, [facility] [address] [place] [id number] [place] [address] Jun, [facility] [id number] [place] [address] Jun, [facility] [address] [place] [address] Jun, Upper respiratory infection J06.9 ; Bilateral low back pain without sciatica M54.5 and Headache R51 [facility] [address] [place] [id number] [place] [address] May, [facility] [id number] [place] [address] Apr, Bilateral low back pain without sciatica M54.5 ; Upper respiratory infection J06.9 and Yeast dermatitis B37.2 [facility] [address] [address] Apr, [facility] [address] [place] [id number] [place] [address] Apr, [facility] [id number] [place] [address] Feb, [facility] [address] [place] [id number] [place] [address] Feb, [facility] [address] [place] [id number] [place] [address] Feb, [facility] [address] [place] [id number] [place] [address] Feb, Essential hypertension I10 ; Heartburn R12 ; Irritable bowel syndrome without diarrhea K58.9 ; Bilateral low back pain, with sciatica presence unspecified M54.5 and Upper respiratory infection J06.9 [place] [address] [place] [id number] [place] [address] Feb, [facility] [address] [place] [id number] [place] [address] Feb, Generalized anxiety disorder F41.1 and Grief F43.20 [place] [id number] [place] [address] Jan, [facility] [address] [place] [address] Jan, Back pain 724.5 ; Upper respiratory infection 465.9 ; HTN (hypertension) 401.9 and Dyspepsia 536.8 [place] [address] [place] [id number] [place] [address] Dec, [facility] [address] [place] [id number] [place] [address] Nov, Back pain 724.5 ; Abdominal pain, bilateral lower quadrant 789.03 ; GERD (gastroesophageal reflux disease) 530.81 ; Upper respiratory infection 465.9 ; Dysuria 788.1 and HTN (hypertension) 401.9 [facility] [address] [address] Nov, [facility] [address] [place] [id number] [place] [address] Nov, [facility] [address] [place] [id number] [place] [address] Nov, [facility] [address] [place] [id number] [place] [address] Nov, Cough 786.2 [facility] [address] [place] [id number] [place] [address] Nov, Cough 786.2 [facility] [address] [place] [id number] [place] [address] Oct, Unspecified episodic mood disorder 296.90 and Anxiety disorder, unspecified 300.00 [facility] [address] [place] [id number] [place] [address] Oct, Abdominal pain, left upper quadrant 789.02 ; Essential hypertension, benign 401.1 ; Irritable bowel syndrome 564.1 ; Abscess 682.9 ; Heartburn 787.1 ; Acute sinusitis, unspecified 461.9 ; Muscle spasm of back 724.8 ; Cough 786.2 and Skin tag 701.9 [facility] [address] [place] [address] September, [facility] [address] [place] [address] September, [facility] [address] [place] [id number] [place] [address] September, [facility] [address] [place] [id number] [place] [address] Aug, [facility] [address] [place] [address] Aug, [facility] [place] [facility] [address] [id number] [place] [address] 30 Jul, 2014 [facility] [place] [facility] [address] [id number] [place] [address] 30 Jul, 2014 [facility] [place] [facility] [address] [id number] [place] [address] Jul, [facility] [place] [facility] [address] [id number] [place] [address] Jul, [facility] [place] [facility] [address] [id number] [place] [address] Jul, [facility] [place] [facility] [address] [id number] [place] [address] Jul, [facility] [place] [facility] [address] [id number] [place] [address] Jul, [facility] [place] [facility] [address] [id number] [place] [address] Jul, [facility] [place] [facility] [address] [id number] [place] [address] Jul, [facility] [place] [facility] [address] [id number] [place] [address] Jul, [facility] [place] [facility] [address] [id number] [place] [address] Jul, [facility] [place] [facility] [address] [id number] [place] [address] Jul, [facility] [place] [facility] [address] [id number] [place] [address] Jul, [facility] [place] [facility] [address] [id number] [place] [address] Jul, [facility] [place] [facility] [address] [id number] [place] [address] Jul, [facility] [place] [facility] [address] [id number] [place] [address] Jul, 2014 [facility] [place] [facility] [address] [facility] [id number] [place] [address] Jul, 2014 [facility] [place] [facility] [address] [facility] [id number] [place] [address] Jun, 2014 [facility] [place] [facility] [address] [facility] [id number] [place] [address] Jun, 2014 [facility] [place] [facility] [address] [facility] [id number] [place] [address] Jun, 2014 [facility] [place] [facility] [address] [facility] [id number] [place] [address] Jun, 2014 [facility] [place] [facility] [address] [facility] [id number] [place] [address] Jun, 2014 [facility] [place] [facility] [address] [facility] [id number] [place] [address] Jun, 2014 [facility] [place] [facility] [address] [facility] [id number] [place] [address] Jun, 2014 [facility] [place] [facility] [address] [facility] [id number] [place] [address] Jun, 2014 [facility] [place] [facility] [address] [facility] [id number] [place] [address] Apr, [facility] [place] [facility] [address] [facility] [id number] [place] [address] Apr, [facility] [place] [facility] [address] [facility] [id number] [place] [address] Apr, [facility] [place] [facility] [address] [facility] [id number] [place] [address] Apr, [facility] [place] [facility] [address] [facility] [id number] [place] [address] Apr, [facility] [place] [facility] [address] [facility] [id number] [place] [address] Apr, [facility] [place] [facility] [address] [id number] [place] [address] 15 Apr, 2014 [facility] [place] [facility] [address] [id number] [place] [address] Apr, [facility] [place] [facility] [address] [id number] [place] [address] Apr, [facility] [place] [facility] [address] [id number] [place] [address] Apr, [facility] [place] [facility] [address] [id number] [place] [address] Apr, [facility] [place] [facility] [address] [id number] [place] [address] Apr, [facility] [place] [facility] [address] [id number] [place] [address] Apr, [facility] [place] [facility] [address] [id number] [place] [address] Apr, [facility] [place] [facility] [address] [id number] [place] [address] Apr, [facility] [place] [facility] [address] [id number] [place] [address] Feb, [facility] [place] [facility] [address] [id number] [place] [address] Feb, [facility] [place] [facility] [address] [id number] [place] [address] Feb, [facility] [place] [facility] [address] [id number] [place] [address] Feb, [facility] [place] [facility] [address] [id number] [place] [address] Feb, [facility] [place] [facility] [address] [id number] [place] [address] Feb, [facility] [place] [facility] [address] [id number] [place] [address] Jan, [facility] [place] [facility] [address] [id number] [place] [address] Jan, 2013 [facility] [place] [facility] [address] [id number] [place] [address] Jan, [facility] [place] [facility] [address] [id number] [place] [address] Jan, 2013 [facility] [place] [facility] [address] [id number] [place] [address] Jan, [facility] [place] [facility] [address] [id number] [place] [address] Jan, [facility] [place] [facility] [address] [id number] [place] [address] Dec, [facility] [place] [facility] [address] [id number] [place] [address] Dec, [facility] [place] [facility] [address] [id number] [place] [address] Dec, [facility] [place] [facility] [address] [id number] [place] [address] Dec, [facility] [place] [facility] [address] [id number] [place] [address] Nov, [facility] [place] [facility] [address] [id number] [place] [address] Nov, [facility] [place] [facility] [address] [id number] [place] [address] Nov, [facility] [place] [facility] [address] [id number] [place] [address] Nov, [facility] [place] [facility] [address] [id number] [place] [address] Nov, [facility] [place] [facility] [address] [id number] [place] [address] Nov, [facility] [place] [facility] [address] [id number] [place] [address] 15 Nov, 2013 [facility] [place] [facility] [address] [id number] [place] [address] 15 Nov, 2013 [facility] [place] [facility] [address] [id number] [place] [address] Oct, [facility] [place] [facility] [address] [id number] [place] [address] Oct, [facility] [place] [facility] [address] [id number] [place] [address] Oct, [facility] [place] [facility] [address] [id number] [place] [address] Oct, [facility] [place] [facility] [address] [id number] [place] [address] Oct, [facility] [place] [facility] [address] [id number] [place] [address] Oct, [facility] [place] [facility] [address] [id number] [place] [address] Oct, [facility] [place] [facility] [address] [id number] [place] [address] Oct, [facility] [place] [facility] [address] [facility] [id number] [place] [address] Oct, [facility] [place] [facility] [address] [id number] [place] [address] Oct, [facility] [place] [facility] [address] [id number] [place] [address] Oct, [facility] [facility] [address] [id number] [place] [address] Oct, [facility] [place] [facility] [address] [id number] [place] [address] Oct, [facility] [place] [facility] [address] [id number] [place] [address] Oct, [facility] [place] [facility] [address] [id number] [place] [address] 17 Oct, 2013 [facility] [place] [facility] [address] [id number] [place] [address] 17 Oct, 2013 [facility] [place] [facility] [address] [id number] [place] [address] 16 Oct, 2013 [facility] [place] [facility] [address] [id number] [place] [address] Oct, [facility] [place] [address] [id number] [place] [address] Oct, [facility] [place] [facility] [address] [id number] [place] [address] Oct, [facility] [place] [facility] [address] [id number] [place] [address] Oct, [facility] [place] [facility] [address] [id number] [place] [address] Oct, [facility] [place] [facility] [address] [id number] [place] [address] Oct, [facility] [place] [facility] [address] [id number] [place] [address] Oct, [facility] [place] [address] [id number] [place] [address] Oct, [facility] [place] [facility] [address] [id number] [place] [address] Oct, [facility] [place] [facility] [address] [id number] [place] [address] Oct, [facility] [place] [address] [id number] [place] [address] Oct, [facility] [place] [facility] [address] [id number] [place] [address] Oct, [facility] [place] [facility] [address] [id number] [place] [address] Oct, [facility] [address] [id number] [place] [address] September, [facility] [address] [id number] [place] [address] September, [facility] [place] [address] [id number] [place] [address] September, [facility] [address] [id number] [place] [address] September, [facility] [address] [id number] [place] [address] September, [facility] [place] [facility] [address] [id number] [place] [address] September, [facility] [address] [id number] [place] [address] September, [facility] [address] [id number] [place] [address] September, [facility] [address] [id number] [place] [address] September, [facility] [address] [id number] [place] [address] September, [facility] [address] [id number] [place] [address] September, [facility] [address] [id number] [place] [address] September, [facility] [facility] [address] [id number] [place] [address] September, [facility] [address] [id number] [place] [address] September, [facility] [place] [address] [id number] [place] [address] September, [facility] [address] [id number] [place] [address] September, [facility] [address] [id number] [place] [address] September, [facility] [address] [id number] [place] [address] September, [facility] [address] [id number] [place] [address] Aug, [facility] [facility] [address] [id number] [place] [address] Aug, [facility] [address] [id number] [place] [address] Aug, [facility] [address] [id number] [place] [address] Aug, [facility] [address] [id number] [place] [address] Aug, [facility] [address] [id number] [place] [address] Aug, [facility] [address] [id number] [place] [address] Jul, [facility] [address] [id number] [place] [address] Jul, [facility] [address] [id number] [place] [address] Jul, [facility] [address] [id number] [place] [address] Jul, [facility] [address] [id number] [place] [address] Jun, [facility] [address] [id number] [place] [address] Jun, [facility] [address] [id number] [place] [address] Jun, [facility] [address] [id number] [place] [address] Jun, [facility] [address] [id number] [place] [address] Mar, [facility] [address] [id number] [place] [address] Mar, [facility] [address] [id number] [place] [address] Mar, [facility] [address] [id number] [place] [address] Mar, [facility] [address] [id number] [place] [address] Feb, [facility] [address] [id number] [place] [address] Feb, [facility] [address] [id number] [place] [address] Feb, [facility] [address] [id number] [place] [address] Jan, [facility] [address] [id number] [place] [address] 20 Jan, 2013 [facility] [address] [id number], [place] [address] 12 Jan, 2013 [facility] [address] [id number], [place] [address] 05 Jan, 2013 [facility] [address] [id number] [place] [address] Dec, [facility] [address] [id number], [place] [address] 15 Dec, 2012 [facility] [address] [id number] [place] [address] Dec, [facility] [address] [id number] [place] [address] Dec, [facility] [address] [id number] [place] [address] Nov, [facility] [address] [id number] [place] [address] Nov, [facility] [address] [id number] [place] [address] Nov, [facility] [address] [id number] [place] [address] Nov, [facility] [address] [id number] [place] [address] Nov, [facility] [address] [id number] [place] [address] Nov, [facility] [address] [id number] [place] [address] Oct, [facility] [address] [id number] [place] [address] Oct, [facility] [address] [id number] [place] [address] Oct, [facility] [address] [id number] [place] [address] Oct, [facility] [address] [id number] [place] [address] 17 Oct, 2012 [facility] [address] [id number] [place] [address] 16 Oct, 2012 [facility] [address] [id number] [place] [address] 14 Oct, 2012 [facility] [address] [id number] [place] [address] 13 Oct, 2012 [facility] [address] [id number] [place] [address] Oct, [facility] [address] [id number] [place] [address] Oct, [facility] [address] [id number] [place] [address] September, [facility] [address] [id number] [place] [address] September, [facility] [address] [id number] [place] [address] September, [facility] [address] [id number] [place] [address] Aug, [facility] [address] [id number] [place] [address] Aug, [facility] [address] [id number] [place] [address] Aug, [facility] [address] [id number] [place] [address] Aug, [facility] [address] [id number] [place] [address] Jul, [facility] [address] [id number] [place] [address] Jul, [facility] [address] [id number] [place] [address] Jul, [facility] [address] [id number] [place] [address] Jul, [facility] [address] [id number] [place] [address] Jul, [facility] [address] [id number] [place] [address] Jul, [facility] [address] [id number] [place] [address] May, [facility] [address] [id number] [place] [address] 29 May, 2012 [facility] [address] [id number] [place] [address] May, [facility] [address] [id number] [place] [address] May, [facility] [address] [id number] [place] [address] May, [facility] [address] [id number] [place] [address] May, [facility] [address] [id number] [place] [address] May, [facility] [address] [id number] [place] [address] May, [facility] [address] [id number] [place] [address] 17 May, 2012 [facility] [address] [id number] [place] [address] 17 May, 2012 [facility] [address] [id number] [place] [address] 16 May, 2012 [facility] [address] [id number] [place] [address] Apr, [facility] [address] [id number] [place] [address] Apr, [facility] [address] [id number] [place] [address] Apr, [facility] [address] [id number] [place] [address] Apr, [facility] [address] [id number] [place] [address] Apr, [facility] [address] [id number] [place] [address] Apr, [facility] [address] [id number] [place] [address] Mar, [facility] [address] [id number] [place] [address] Mar, [facility] [address] [id number] [place] [address] Mar, [facility] [address] [id number] [place] [address] Mar, [facility] [address] [id number] [place] [address] Mar, [facility] [facility] [address] [id number] [place] [address] Mar, [facility] [address] [id number] [place] [address] Mar, [facility] [facility] [address] [id number] [place] [address] Mar, [facility] [address] [id number] [place] [address] Feb, [facility] [address] [id number] [place] [address] Feb, [facility] [facility] [address] [id number] [place] [address] 16 Feb, 2012 [facility] [address] [id number] [place] [address] 15 Feb, 2012 [facility] [address] [id number] [place] [address] 15 Feb, 2012 [facility] [address] [id number] [place] [address] 13 Feb, 2012 [facility] [address] [id number] [place] [address] Feb, [facility] [address] [id number] [place] [address] Feb, [facility] [place] [facility] [address] [id number] [place] [address] Feb, [facility] [address] [id number] [place] [address] Feb, [facility] [place] [facility] [address] [id number] [place] [address] Feb, [facility] [place] [facility] [address] [id number] [place] [address] Feb, [facility] [place] [facility] [address] [id number] [place] [address] Feb, [facility] [place] [facility] [address] [id number] [place] [address] Feb, [facility] [place] [facility] [address] [id number] [place] [address] Feb, [facility] [place] [facility] [address] [id number], [place] [address] Feb, [facility] [place] [facility] [address] [id number] [place] [address] Feb, [facility] [place] [facility] [address] [id number], [place] [address] Feb, [facility] [place] [facility] [address] [id number], [place] [address] 19 Jan, 2012 [facility] [place] [facility] [address] [id number], [place] [address] 13 Sep2011 [facility] [place] [facility] [address] [id number], [place] [address] 11 Sep2011 [facility] [facility] [address] [id number], [place] [address] 10 Sep2011 [facility] [place] [facility] [address] [id number], [place] [address] 05 Sep2011 [facility] [place] [facility] [address] [id number], [place] [address] Dec, [facility] [place] [facility] [address] [id number] [place] [address] Dec, [facility] [place] [facility] [address] [id number] [place] [address] Dec, [facility] [place] [facility] [address] [id number] [place] [address] Dec, [facility] [place] [facility] [address] [id number] [place] [address] Dec, [facility] [place] [facility] [address] [id number] [place] [address] Dec, [facility] [place] [facility] [address] [id number] [place] [address] Nov, [facility] [place] [facility] [address] [id number] [place] [address] Nov, [facility] [place] [facility] [address] [id number] [place] [address] Nov, [facility] [place] [facility] [address] [id number] [place] [address] Nov, [facility] [place] [facility] [address] [id number] [place] [address] Nov, [facility] [place] [facility] [address] [id number] [place] [address] Oct, [facility] [place] [facility] [address] [id number] [place] [address] Oct, [facility] [place] [facility] [address] [id number] [place] [address] Oct, [facility] [place] [facility] [address] [id number] [place] [address] September, [facility] [place] [facility] [address] [id number] [place] [address] September, [facility] [place] [facility] [address] [id number] [place] [address] September, [facility] [address] [id number] [place] [address] September, [facility] [place] [facility] [address] [id number] [place] [address] September, [facility] [place] [facility] [address] [id number] [place] [address] September, [facility] [place] [facility] [address] [id number] [place] [address] Aug, [facility] [place] [facility] [address] [id number] [place] [address] Aug, [facility] [place] [facility] [address] [id number] [place] [address] Aug, [facility] [place] [facility] [address] [id number] [place] [address] Jun, [facility] [place] [facility] [address] [id number] [place] [address] Jun, [facility] [place] [facility] [address] [id number] [place] [address] Jun, [facility] [place] [facility] [address] [id number] [place] [address] Jun, [facility] [facility] [address] [id number] [place] [address] May, [facility] [place] [facility] [address] [id number] [place] [address] May, [facility] [place] [facility] [address] [id number] [place] [address] May, [facility] [place] [facility] [address] [id number] [place] [address] May, [facility] [place] [facility] [address] [id number] [place] [address] May, [facility] [place] [facility] [address] [id number] [place] [address] Apr, [facility] [place] [facility] [address] [id number] [place] [address] Apr, [facility] [place] [facility] [address] [id number] [place] [address] Apr, [facility] [place] [facility] [address] [id number] [place] [address] Apr, [facility] [place] [facility] [address] [id number] [place] [address] Apr, [facility] [place] [facility] [address] [id number] [place] [address] Apr, [facility] [place] [facility] [address] [id number] [place] [address] Apr, [facility] [place] [facility] [address] [id number] [place] [address] Mar, [facility] [place] [facility] [address] [id number] [place] [address] Mar, [facility] [place] [facility] [address] [id number] [place] [address] Mar, [facility] [place] [facility] [address] [id number], [place] [address] Feb, [facility] [place] [facility] [address] [id number], [place] [address] Feb, [facility] [place] [facility] [address] [id number] [place] [address] Feb, [facility] [place] [facility] [address] [id number] [place] [address] Feb, [facility] [place] [facility] [address] [id number] [place] [address] 18 Feb, 2011 [facility] [place] [facility] [address] [id number] [place] [address] 17 Feb, 2011 [facility] [address] [id number] [place] [address] 13 Jan, 2011 [facility] [place] [facility] [address] [id number] [place] [address] 12 Jan, 2011 [facility] [address] [id number] [place] [address] September, [facility] [place] [facility] [address] [id number] [place] [address] Jun, [facility] [address] [id number] [place] [address] Apr, [facility] [address] [id number] [place] [address] Apr, [facility] [address] [id number] [place] [address] Apr, [facility] [address] [id number] [place] [address] Apr, [facility] [address] [id number] [place] [address] Apr, [facility] [address] [id number] [place] [address] 30 Mar, 2010 [facility] [place] [facility] [address] [id number] [place] [address] 24 Mar, 2010 [facility] [address] [id number] [place] [address] 23 Mar, 2010 [facility] [place] [facility] [address] [id number] [place] [address] 05 Mar, 2010 [facility] [place] [facility] [address] [id number] [place] [address] 27 Feb, 2010 [facility] [place] [facility] [address] [id number] [place] [address] 15 Jan, 2010 [facility] [address] [facility] [id number] [place] [address] Mar, [facility] [address] [id number] [address] 15 Jan, 2009 [facility] [address] [facility] [id number], [place] [address] Oct, [facility] [address] [facility] [id number], [place] [address] Apr, IMMUNIZATIONS No Known Immunizations SOCIAL HISTORY Never Assessed REASON FOR [place] [place] VITAL SIGNS MEDICATIONS No [...]
--- OUTSIDE RECORDS SUMMARY | 2018-09-28 03:51 | XMS REPORT ---
Author Author Migration, Doctor Organization [facility] Address Unknown Phone Unavailable Care Team Providers Care Data Processing Specialist Name Role Phone Migration, Doctor Unavailable Unavailable PROBLEMS Type Condition ICD9-CM Code JBT00-QG Code Onset Dates Condition Status SNOMED Code Problem Essential hypertension I10 Active 34648216 Problem Bilateral low back pain without sciatica M54.5 Active 607883010 Problem Anxiety F41.9 Active 06221403 Problem Dysuria R30.0 Active 69824976 Problem Irritable bowel syndrome without diarrhea K58.9 Active 90613731 Problem Rhinosinusitis J32.9 Active 189743588 Problem Hypertriglyceridemia E78.1 Active 705589099 Problem Pre-diabetes R73.03 Active 332442673 Problem Alternating constipation and diarrhea R19.8 Active 922332985 Problem Body mass index (BMI) of 40.0-44.9 in adult Z68.41 Active 171206925 Problem Morbid (severe) obesity due to excess calories E66.01 Active 628343941 ALLERGIES No Information ENCOUNTERS Encounter Location Date Diagnosis [place] [address] [address] Aug, Acute nonintractable headache, unspecified headache type R51 ; Acute non-recurrent maxillary sinusitis J01.00 and Pre-diabetes R73.03 [place] [address] [place] [id number] [place] [address] 16 Aug, 2018 Acute vaginitis N76.0 [facility] [address] [address] 08 Aug, 2018 Rhinosinusitis J32.9 ; Bronchitis J40 ; Folliculitis L73.9 and Morbid obesity E66.01 [place] [address] [address] Jul, [facility] [address] [address] Jul, [facility] [id number] [place] [address] Jun, [facility] [id number] [place] [address] Jun, Acute vaginitis N76.0 ; Dermatitis L30.9 ; BMI 40.0-44.9, adult Z68.41 and Morbid obesity E66.01 [facility] [address] [place] [id number] [place] [address] Jun, Vaginal discharge N89.8 ; Urinary tract infection without hematuria, site unspecified N39.0 and BMI 40.0-44.9, adult Z68.41 [place] [address] [place] [id number] [place] [address] May, [place] [address] [place] [id number] [place] [address] May, [place] [address] [place] [id number] [place] [address] Apr, Urinary tract infection, site not specified N39.0 [place] [address] [place] [id number] [place] [address] Apr, Dysuria R30.0 ; Urinary tract infection, site not specified N39.0 and Hematuria, unspecified R31.9 [place] [address] [place] [id number] [place] [address] Mar, [place] [address] [place] [id number] [place] [address] Mar, Left anterior knee pain M25.562 ; Abscess of buttock, left L02.31 and BMI 40.0-44.9, adult Z68.41 [facility] [id number] [place] [address] Mar, [facility] [address] [place] [id number] [place] [address] Feb, Abrasion of right ear canal, initial encounter S00.411A ; Left wrist pain M25.532 ; Right acute serous otitis media, recurrence not specified H65.01 and BMI 40.0-44.9, adult Z68.41 [facility] [address] [place] [id number] [place] [address] Jan, [place] [address] [address] Jan, [place] [address] [address] Jan, BMI 40.0-44.9, adult Z68.41 ; Pre-diabetes R73.03 ; Essential hypertension I10 ; Morbid (severe) obesity due to excess calories E66.01 ; Bilateral low back pain without sciatica M54.5 and Heartburn R12 [place] [address] [address] Jan, History of UTI Z87.440 ; Well woman exam with routine gynecological exam Z01.419 ; Screening for breast cancer Z12.31 ; Candidal vaginitis B37.3 and BMI 40.0-44.9, adult Z68.41 [place] [address] [place] [id number] [place] [address] Jan, [facility] [address] [place] [id number] [place] [address] Jan, Dysuria R30.0 ; Acute cystitis with hematuria N30.01 ; Yeast infection B37.9 and BMI 40.0-44.9, adult Z68.41 [place] [address] [address] Dec, [place] [address] [address] Dec, [place] [address] [address] Nov, History of UTI Z87.440 [facility] [id number] [place] [address] Nov, UTI symptoms R39.9 ; Acute nasopharyngitis J00 and BMI 40.0-44.9, adult Z68.41 [place] [id number] [place] [address] Nov, [facility] [address] [place] [id number] [place] [address] Nov, Yeast infection involving the vagina and surrounding area B37.3 [place] [address] [place] [id number] [place] [address] Nov, Yeast infection involving the vagina and surrounding area B37.3 [place] [address] [place] [id number] [place] [address] Nov, Yeast infection involving the vagina and surrounding area B37.3 ; Body mass index (BMI) of 40.0-44.9 in adult Z68.41 and Morbid (severe) obesity due to excess calories E66.01 [place] [address] [place] [address] Oct, Abscess of groin, left L02.214 and Pre-diabetes R73.03 [place] [address] [address] September, Pre-diabetes R73.03 [place] [address] [place] [id number] [place] [address] Aug, [facility] [id number] [place] [address] Jul, Bilateral low back pain without sciatica M54.5 [facility] [address] [place] [id number] [place] [address] Jun, [place] [address] [place] [id number] [place] [address] Jun, [place] [address] [place] [id number] [place] [address] Jun, [facility] [address] [address] May, [facility] [address] [place] [id number] [place] [address] May, Ingrown left greater toenail L60.0 [facility] [address] [address] May, [facility] [address] [address] May, Influenza A J10.1 ; Fever R50.9 and Body aches R52 [facility] [address] [address] Apr, [facility] [address] [address] Apr, [facility] [address] [address] Apr, [facility] [address] [address] Apr, Abscess L02.91 and Obesity (BMI 30-39.9) E66.9 [facility] [address] [address] Apr, [facility] [address] [place] [id number] [place] [address] Apr, [facility] [address] [address] Mar, Acute non-recurrent maxillary sinusitis J01.00 [facility] [address] [place] [id number] [place] [address] Feb, Heartburn R12 [facility] [address] [address] Feb, Heartburn R12 ; Low back pain M54.5 ; Essential hypertension I10 ; Bilateral low back pain without sciatica M54.5 ; Anxiety F41.9 ; Pre-diabetes R73.03 ; Other obesity due to excess calories E66.09 ; Alternating constipation and diarrhea R19.8 ; Dyspepsia R10.13 ; Generalized abdominal pain R10.84 ; Rhinosinusitis J32.9 and Boil L02.92 [place] [address] [address] Jan, Heartburn R12 [place] [address] [address] Jan, [place] [address] [address] Jan, [place] [address] [address] Jan, Acute seasonal allergic rhinitis due to pollen J30.1 and Irritable bowel syndrome without diarrhea K58.9 [place] [address] [address] Dec, Low back pain M54.5 and Acute cystitis with hematuria N30.01 [place] [address] [address] Dec, Low back pain M54.5 and Acute cystitis with hematuria N30.01 [place] [address] [address] Dec, Heartburn R12 ; Essential hypertension I10 ; Acute non-recurrent maxillary sinusitis J01.00 ; Bilateral low back pain without sciatica M54.5 ; Anxiety F41.9 ; Pre-diabetes R73.03 ; Pain in right foot M79.671 ; Pain in left foot M79.672 ; Other obesity due to excess calories E66.09 and Acute cystitis with hematuria N30.01 [place] [address] [address] Dec, Bilateral low back pain without sciatica M54.5 ; Acute non-recurrent maxillary sinusitis J01.00 and Pre-diabetes R73.03 [place] [address] [address] Oct, [facility] [place] [address] [address] Aug, [facility] [place] [address] [address] Aug, Acute vaginitis N76.0 ; Urinary frequency R35.0 ; Screen for STD (sexually transmitted disease) Z11.3 and Abscess L02.91 [place] [address] [address] Aug, Plantar wart of right foot B07.0 [place] [address] [address] Jul, Plantar wart of right foot B07.0 [place] [address] [address] Jun, [place] [address] [address] Jun, Heartburn R12 ; Essential hypertension I10 ; Anxiety F41.9 ; Folliculitis L73.9 and Plantar wart of right foot B07.0 [place] [address] [address] Jun, [facility] [place] [address] [address] May, Low back pain M54.5 and Other chronic pain G89.29 [place] [address] [address] May, [place] [address] [address] May, [place] [address] [place] [id number] [place] [address] May, Heartburn R12 ; Bilateral low back pain without sciatica M54.5 ; Essential hypertension I10 ; Long-term use of high-risk medication Z79.899 ; Anxiety F41.9 ; Impacted cerumen of right ear H61.21 ; Folliculitis L73.9 ; High risk bisexual behavior Z72.53 and General medical exam Z00.00 [place] [address] [address] May, [place] [address] [address] May, [place] [address] [address] Mar, Acute nasopharyngitis J00 ; Acute intractable tension-type headache G44.201 and Cough R05 [place] [address] [place] [id number] [place] [address] Jan, [facility] [address] [address] Jan, Abscess L02.91 [facility] [place] [address] [place] [id number] [place] [address] Jan, Urinary urgency R39.15 and Urinary tract infection without hematuria, site unspecified N39.0 [place] [address] [place] [id number] [place] [address] Jan, [place] [address] [place] [id number] [place] [address] Jan, [place] [address] [address] Dec, [place] [address] [place] [id number] [place] [address] Dec, Dermatofibroma D23.9 [place] [address] [place] [address] September, [facility] [address] [place] [id number] [place] [address] Aug, [facility] [address] [place] [id number] [place] [address] Aug, Pain in left knee M25.562 ; Heartburn R12 ; Bilateral low back pain without sciatica M54.5 ; Essential hypertension I10 ; Ingrown left big toenail L60.0 ; Chronic pain G89.29 ; Irritable bowel syndrome with constipation K58.9 and Skin infection L08.9 [facility] [address] [place] [id number] [place] [address] Aug, [facility] [address] [place] [id number] [place] [address] Jul, [facility] [address] [place] [id number] [place] [address] Jun, [facility] [id number] [place] [address] Jun, [facility] [address] [place] [id number] [place] [address] Jun, [facility] [id number] [place] [address] Jun, [facility] [id number] [place] [address] Jun, Upper respiratory infection J06.9 ; Bilateral low back pain without sciatica M54.5 and Headache R51 [facility] [address] [place] [id number] [place] [address] May, [facility] [id number] [place] [address] Apr, Bilateral low back pain without sciatica M54.5 ; Upper respiratory infection J06.9 and Yeast dermatitis B37.2 [facility] [address] [address] Apr, [facility] [address] [place] [id number] [place] [address] Apr, [facility] [id number] [place] [address] Feb, [facility] [address] [place] [id number] [place] [address] Feb, [facility] [address] [place] [id number] [place] [address] Feb, [facility] [address] [place] [id number] [place] [address] Feb, Essential hypertension I10 ; Heartburn R12 ; Irritable bowel syndrome without diarrhea K58.9 ; Bilateral low back pain, with sciatica presence unspecified M54.5 and Upper respiratory infection J06.9 [place] [address] [place] [id number] [place] [address] Feb, [facility] [address] [place] [id number] [place] [address] Feb, Generalized anxiety disorder F41.1 and Grief F43.20 [place] [id number] [place] [address] Jan, [facility] [address] [place] [address] Jan, Back pain 724.5 ; Upper respiratory infection 465.9 ; HTN (hypertension) 401.9 and Dyspepsia 536.8 [place] [address] [place] [id number] [place] [address] Dec, [facility] [address] [place] [id number] [place] [address] Nov, Back pain 724.5 ; Abdominal pain, bilateral lower quadrant 789.03 ; GERD (gastroesophageal reflux disease) 530.81 ; Upper respiratory infection 465.9 ; Dysuria 788.1 and HTN (hypertension) 401.9 [facility] [address] [address] Nov, [facility] [address] [place] [id number] [place] [address] Nov, [facility] [address] [place] [id number] [place] [address] Nov, [facility] [address] [place] [id number] [place] [address] Nov, Cough 786.2 [facility] [address] [place] [id number] [place] [address] Nov, Cough 786.2 [facility] [address] [place] [id number] [place] [address] Oct, Unspecified episodic mood disorder 296.90 and Anxiety disorder, unspecified 300.00 [facility] [address] [place] [id number] [place] [address] Oct, Abdominal pain, left upper quadrant 789.02 ; Essential hypertension, benign 401.1 ; Irritable bowel syndrome 564.1 ; Abscess 682.9 ; Heartburn 787.1 ; Acute sinusitis, unspecified 461.9 ; Muscle spasm of back 724.8 ; Cough 786.2 and Skin tag 701.9 [facility] [address] [place] [address] September, [facility] [id number] [place] [address] September, [facility] [address] [place] [id number] [place] [address] September, [facility] [address] [place] [id number] [place] [address] Aug, [facility] [address] [place] [address] Aug, [facility] [place] [facility] [address] [id number] [place] [address] 30 Jul, 2014 [facility] [place] [facility] [address] [id number] [place] [address] 30 Jul, 2014 [facility] [place] [facility] [address] [id number] [place] [address] Jul, [facility] [place] [facility] [address] [id number] [place] [address] Jul, [facility] [place] [facility] [address] [id number] [place] [address] Jul, [facility] [place] [facility] [address] [id number] [place] [address] Jul, [facility] [place] [facility] [address] [id number] [place] [address] Jul, [facility] [place] [facility] [address] [id number] [place] [address] Jul, [facility] [place] [facility] [address] [id number] [place] [address] Jul, [facility] [place] [facility] [address] [id number] [place] [address] Jul, [facility] [place] [facility] [address] [id number] [place] [address] Jul, [facility] [place] [facility] [address] [id number] [place] [address] Jul, [facility] [place] [facility] [address] [id number] [place] [address] Jul, [facility] [place] [facility] [address] [id number] [place] [address] Jul, [facility] [place] [facility] [address] [id number] [place] [address] Jul, [facility] [place] [facility] [address] [id number] [place] [address] Jul, 2014 [facility] [place] [facility] [address] [facility] [id number] [place] [address] Jul, 2014 [facility] [place] [facility] [address] [facility] [id number] [place] [address] Jun, 2014 [facility] [place] [facility] [address] [facility] [id number] [place] [address] Jun, 2014 [facility] [place] [facility] [address] [facility] [id number] [place] [address] Jun, 2014 [facility] [place] [facility] [address] [facility] [id number] [place] [address] Jun, 2014 [facility] [place] [facility] [address] [facility] [id number] [place] [address] Jun, 2014 [facility] [place] [facility] [address] [facility] [id number] [place] [address] Jun, 2014 [facility] [place] [facility] [address] [facility] [id number] [place] [address] Jun, 2014 [facility] [place] [facility] [address] [facility] [id number] [place] [address] Jun, 2014 [facility] [place] [facility] [address] [facility] [id number] [place] [address] Apr, [facility] [place] [facility] [address] [facility] [id number] [place] [address] Apr, [facility] [place] [facility] [address] [facility] [id number] [place] [address] Apr, [facility] [place] [facility] [address] [facility] [id number] [place] [address] Apr, [facility] [place] [facility] [address] [facility] [id number] [place] [address] Apr, [facility] [place] [facility] [address] [facility] [id number] [place] [address] Apr, [facility] [place] [facility] [address] [id number] [place] [address] 15 Apr, 2014 [facility] [place] [facility] [address] [id number] [place] [address] Apr, [facility] [place] [facility] [address] [id number] [place] [address] Apr, [facility] [place] [facility] [address] [id number] [place] [address] Apr, [facility] [place] [facility] [address] [id number] [place] [address] Apr, [facility] [place] [facility] [address] [id number] [place] [address] Apr, [facility] [place] [facility] [address] [id number] [place] [address] Apr, [facility] [place] [facility] [address] [id number] [place] [address] Apr, [facility] [place] [facility] [address] [id number] [place] [address] Apr, [facility] [place] [facility] [address] [id number] [place] [address] Feb, [facility] [place] [facility] [address] [id number] [place] [address] Feb, [facility] [place] [facility] [address] [id number] [place] [address] Feb, [facility] [place] [facility] [address] [id number] [place] [address] Feb, [facility] [place] [facility] [address] [id number] [place] [address] Feb, [facility] [place] [facility] [address] [id number] [place] [address] Feb, [facility] [place] [facility] [address] [id number] [place] [address] Jan, [facility] [place] [facility] [address] [id number] [place] [address] Jan, 2013 [facility] [place] [facility] [address] [id number] [place] [address] Jan, [facility] [place] [facility] [address] [id number] [place] [address] Jan, 2013 [facility] [place] [facility] [address] [id number] [place] [address] Jan, [facility] [place] [facility] [address] [id number] [place] [address] Jan, [facility] [place] [facility] [address] [id number] [place] [address] Dec, [facility] [place] [facility] [address] [id number] [place] [address] Dec, [facility] [place] [facility] [address] [id number] [place] [address] Dec, [facility] [place] [facility] [address] [id number] [place] [address] Dec, [facility] [place] [facility] [address] [id number] [place] [address] Nov, [facility] [place] [facility] [address] [id number] [place] [address] Nov, [facility] [place] [facility] [address] [id number] [place] [address] Nov, [facility] [place] [facility] [address] [id number] [place] [address] Nov, [facility] [place] [facility] [address] [id number] [place] [address] Nov, [facility] [place] [facility] [address] [id number] [place] [address] Nov, [facility] [place] [facility] [address] [id number] [place] [address] 15 Nov, 2013 [facility] [place] [facility] [address] [id number] [place] [address] 15 Nov, 2013 [facility] [place] [facility] [address] [id number] [place] [address] Oct, [facility] [place] [facility] [address] [id number] [place] [address] Oct, [facility] [place] [facility] [address] [id number] [place] [address] Oct, [facility] [place] [facility] [address] [id number] [place] [address] Oct, [facility] [place] [facility] [address] [id number] [place] [address] Oct, [facility] [place] [facility] [address] [id number] [place] [address] Oct, [facility] [place] [facility] [address] [id number] [place] [address] Oct, [facility] [place] [facility] [address] [id number] [place] [address] Oct, [facility] [place] [facility] [address] [facility] [id number] [place] [address] Oct, [facility] [place] [facility] [address] [id number] [place] [address] Oct, [facility] [place] [facility] [address] [id number] [place] [address] Oct, [facility] [place] [facility] [address] [id number] [place] [address] Oct, [facility] [place] [facility] [address] [id number] [place] [address] Oct, [facility] [place] [facility] [address] [id number] [place] [address] Oct, [facility] [place] [facility] [address] [id number] [place] [address] 17 Oct, 2013 [facility] [place] [facility] [address] [id number] [place] [address] 17 Oct, 2013 [facility] [place] [facility] [address] [id number] [place] [address] 16 Oct, 2013 [facility] [place] [facility] [address] [id number] [place] [address] Oct, [facility] [place] [facility] [address] [id number] [place] [address] Oct, [facility] [place] [facility] [address] [id number] [place] [address] Oct, [facility] [place] [facility] [address] [id number] [place] [address] Oct, [facility] [place] [facility] [address] [id number] [place] [address] Oct, [facility] [place] [facility] [address] [id number] [place] [address] Oct, [facility] [place] [facility] [address] [id number] [place] [address] Oct, [facility] [place] [facility] [address] [id number] [place] [address] Oct, [facility] [place] [facility] [address] [id number] [place] [address] Oct, [facility] [place] [facility] [address] [id number] [place] [address] Oct, [facility] [place] [facility] [address] [id number] [place] [address] Oct, [facility] [place] [facility] [address] [id number] [place] [address] Oct, [facility] [place] [facility] [address] [id number] [place] [address] Oct, [facility] [place] [facility] [address] [id number] [place] [address] September, [facility] [place] [facility] [address] [id number] [place] [address] September, [facility] [place] [facility] [address] [id number] [place] [address] September, [facility] [place] [facility] [address] [id number] [place] [address] September, [facility] [place] [facility] [address] [id number] [place] [address] September, [facility] [place] [facility] [address] [id number] [place] [address] September, [facility] [place] [facility] [address] [id number] [place] [address] September, [facility] [place] [facility] [address] [id number] [place] [address] September, [facility] [place] [facility] [address] [id number] [place] [address] September, [facility] [place] [facility] [address] [id number] [place] [address] September, [facility] [place] [facility] [address] [id number] [place] [address] September, [facility] [place] [facility] [address] [id number] [place] [address] September, [facility] [place] [facility] [address] [id number] [place] [address] September, [facility] [place] [facility] [address] [id number] [place] [address] September, [facility] [place] [facility] [address] [id number] [place] [address] September, [facility] [place] [facility] [address] [id number] [place] [address] September, [facility] [address] [id number] [place] [address] September, [facility] [place] [facility] [address] [id number] [place] [address] September, [facility] [address] [id number] [place] [address] Aug, [facility] [place] [facility] [address] [id number] [place] [address] Aug, [facility] [place] [facility] [address] [id number] [place] [address] Aug, [facility] [place] [facility] [address] [id number] [place] [address] Aug, [facility] [place] [facility] [address] [id number] [place] [address] Aug, [facility] [address] [id number] [place] [address] Aug, [facility] [place] [facility] [address] [id number] [place] [address] Jul, [facility] [address] [id number] [place] [address] Jul, [facility] [place] [facility] [address] [id number] [place] [address] Jul, [facility] [place] [facility] [address] [id number] [place] [address] Jul, [facility] [place] [facility] [address] [id number] [place] [address] Jun, [facility] [place] [facility] [address] [id number] [place] [address] Jun, [facility] [place] [facility] [address] [id number] [place] [address] Jun, [facility] [place] [facility] [address] [id number] [place] [address] Jun, [facility] [place] [facility] [address] [id number] [place] [address] Mar, [facility] [place] [facility] [address] [id number] [place] [address] Mar, [facility] [place] [facility] [address] [id number] [place] [address] Mar, [facility] [place] [facility] [address] [id number] [place] [address] Mar, [facility] [place] [facility] [address] [id number] [place] [address] Feb, [facility] [place] [facility] [address] [id number] [place] [address] Feb, [facility] [place] [facility] [address] [id number] [place] [address] Feb, [facility] [place] [facility] [address] [id number] [place] [address] Jan, [facility] [place] [facility] [address] [id number] [place] [address] 20 Jan, 2013 [facility] [place] [facility] [address] [id number] [address] 12 Jan, 2013 [facility] [place] [facility] [address] [id number] [address] 05 Jan, 2013 [facility] [place] [facility] [address] [id number] [place] [address] Dec, [facility] [place] [facility] [address] [id number] [address] 15 Dec, 2012 [facility] [place] [facility] [address] [id number] [place] [address] Dec, [facility] [place] [facility] [address] [id number] [place] [address] Dec, [facility] [place] [facility] [address] [id number] [place] [address] Nov, [facility] [place] [facility] [address] [id number] [place] [address] Nov, [facility] [place] [facility] [address] [id number] [place] [address] Nov, [facility] [place] [facility] [address] [id number] [place] [address] Nov, [facility] [place] [facility] [address] [id number] [place] [address] Nov, [facility] [place] [facility] [address] [id number] [place] [address] Nov, [facility] [place] [facility] [address] [id number] [place] [address] Oct, [facility] [place] [facility] [address] [id number] [place] [address] Oct, [facility] [place] [facility] [address] [id number] [place] [address] Oct, [facility] [place] [facility] [address] [id number] [place] [address] Oct, [facility] [place] [facility] [address] [id number] [place] [address] 17 Oct, 2012 [facility] [place] [facility] [address] [id number] [place] [address] 16 Oct, 2012 [facility] [place] [facility] [address] [id number] [place] [address] 14 Oct, 2012 [facility] [place] [facility] [address] [id number] [place] [address] 13 Oct, 2012 [facility] [place] [facility] [address] [id number] [place] [address] Oct, [facility] [place] [facility] [address] [id number] [place] [address] Oct, [facility] [address] [id number] [place] [address] September, [facility] [address] [id number] [place] [address] September, [facility] [address] [id number] [place] [address] September, [facility] [address] [id number] [place] [address] Aug, [facility] [address] [id number] [place] [address] Aug, [facility] [address] [id number] [place] [address] Aug, [facility] [address] [id number] [place] [address] Aug, [facility] [address] [id number] [place] [address] Jul, [facility] [address] [id number] [place] [address] Jul, [facility] [address] [id number] [place] [address] Jul, [facility] [address] [id number] [place] [address] Jul, [facility] [address] [id number] [place] [address] Jul, [facility] [place] [facility] [address] [id number] [place] [address] Jul, [facility] [address] [id number] [place] [address] May, [facility] [address] [id number] [place] [address] 29 May, 2012 [facility] [address] [id number] [place] [address] May, [facility] [place] [facility] [address] [id number] [place] [address] May, [facility] [address] [id number] [place] [address] May, [facility] [place] [facility] [address] [id number] [place] [address] May, [facility] [address] [id number] [place] [address] May, [facility] [address] [id number] [place] [address] May, [facility] [address] [id number] [place] [address] 17 May, 2012 [facility] [place] [facility] [address] [id number] [place] [address] 17 May, 2012 [facility] [address] [id number] [place] [address] 16 May, 2012 [facility] [address] [id number] [place] [address] Apr, [facility] [address] [id number] [place] [address] Apr, [facility] [place] [facility] [address] [id number] [place] [address] Apr, [facility] [place] [facility] [address] [id number] [place] [address] Apr, [facility] [place] [facility] [address] [id number] [place] [address] Apr, [facility] [place] [facility] [address] [id number] [place] [address] Apr, [facility] [place] [facility] [address] [id number] [place] [address] Mar, [facility] [place] [facility] [address] [id number] [place] [address] Mar, [facility] [place] [facility] [address] [id number] [place] [address] Mar, [facility] [place] [facility] [address] [id number] [place] [address] Mar, [facility] [place] [facility] [address] [id number] [place] [address] Mar, [facility] [place] [facility] [address] [id number] [place] [address] Mar, [facility] [place] [facility] [address] [id number] [place] [address] Mar, [facility] [place] [facility] [address] [id number] [place] [address] Mar, [facility] [place] [facility] [address] [id number] [place] [address] Feb, [facility] [place] [facility] [address] [id number] [place] [address] Feb, [facility] [place] [facility] [address] [id number] [place] [address] 16 Feb, 2012 [facility] [place] [facility] [address] [id number] [place] [address] 15 Feb, 2012 [facility] [place] [facility] [address] [id number] [place] [address] 15 Feb, 2012 [facility] [place] [facility] [address] [id number] [place] [address] 13 Feb, 2012 [facility] [place] [facility] [address] [id number] [place] [address] Feb, [facility] [place] [facility] [address] [id number] [place] [address] Feb, [facility] [place] [facility] [address] [id number] [place] [address] Feb, [facility] [place] [facility] [address] [id number] [place] [address] Feb, [facility] [place] [facility] [address] [id number] [place] [address] Feb, [facility] [place] [facility] [address] [id number] [place] [address] Feb, [facility] [place] [facility] [address] [id number] [place] [address] Feb, [facility] [place] [facility] [address] [id number] [place] [address] Feb, [facility] [place] [facility] [address] [id number] [place] [address] Feb, [facility] [place] [facility] [address] [id number] [place] [address] Feb, [facility] [place] [facility] [address] [id number] [place] [address] Feb, [facility] [place] [facility] [address] [id number] [address] Feb, [facility] [place] [facility] [address] [id number] [place] [address] 19 Jan, 2012 [facility] [place] [facility] [address] [id number] [address] 13 Sep2011 [facility] [place] [facility] [address] [id number] [place] [address] 11 Sep2011 [facility] [place] [facility] [address] [id number] [place] [address] 10 Sep2011 [facility] [place] [facility] [address] [id number] [place] [address] 05 Sep2011 [facility] [place] [facility] [address] [id number] [place] [address] Dec, [facility] [place] [facility] [address] [id number] [place] [address] Dec, [facility] [place] [facility] [address] [id number] [place] [address] Dec, [facility] [place] [facility] [address] [id number] [place] [address] Dec, [facility] [place] [facility] [address] [id number] [place] [address] Dec, [facility] [place] [facility] [address] [id number] [place] [address] Dec, [facility] [place] [facility] [address] [id number] [place] [address] Nov, [facility] [place] [facility] [address] [id number] [place] [address] Nov, [facility] [place] [facility] [address] [id number] [place] [address] Nov, [facility] [place] [facility] [address] [id number] [place] [address] Nov, [facility] [place] [facility] [address] [id number] [place] [address] Nov, [facility] [place] [facility] [address] [id number] [place] [address] Oct, [facility] [place] [facility] [address] [id number] [place] [address] Oct, [facility] [place] [facility] [address] [id number] [place] [address] Oct, [facility] [place] [facility] [address] [id number] [place] [address] September, [facility] [place] [facility] [address] [id number] [place] [address] September, [facility] [place] [facility] [address] [id number] [place] [address] September, [facility] [address] [id number] [place] [address] September, [facility] [place] [facility] [address] [id number] [place] [address] September, [facility] [place] [facility] [address] [id number] [place] [address] September, [facility] [place] [facility] [address] [id number] [place] [address] Aug, [facility] [place] [facility] [address] [id number] [place] [address] Aug, [facility] [place] [facility] [address] [id number] [place] [address] Aug, [facility] [place] [facility] [address] [id number] [place] [address] Jun, [facility] [place] [facility] [address] [id number] [place] [address] Jun, [facility] [place] [facility] [address] [id number] [place] [address] Jun, [facility] [place] [facility] [address] [id number] [place] [address] Jun, [facility] [place] [facility] [address] [id number] [place] [address] May, [facility] [place] [facility] [address] [id number] [place] [address] May, [facility] [place] [facility] [address] [id number] [place] [address] May, [facility] [place] [facility] [address] [id number] [place] [address] May, [facility] [place] [facility] [address] [id number] [place] [address] May, [facility] [place] [facility] [address] [id number] [place] [address] Apr, [facility] [place] [facility] [address] [id number] [place] [address] Apr, [facility] [place] [facility] [address] [id number] [place] [address] Apr, [facility] [place] [facility] [address] [id number] [place] [address] Apr, [facility] [place] [facility] [address] [id number] [place] [address] Apr, [facility] [place] [facility] [address] [id number] [place] [address] Apr, [facility] [place] [facility] [address] [id number] [place] [address] Apr, [facility] [place] [facility] [address] [id number] [place] [address] Mar, [facility] [place] [facility] [address] [id number] [place] [address] Mar, [facility] [place] [facility] [address] [id number] [place] [address] Mar, [facility] [place] [facility] [address] [id number] [place] [address] Feb, [facility] [place] [facility] [address] [id number] [address] Feb, [facility] [place] [facility] [address] [id number] [place] [address] Feb, [facility] [place] [facility] [address] [id number] [place] [address] Feb, [facility] [place] [facility] [address] [id number] [place] [address] 18 Feb, 2011 [facility] [place] [facility] [address] [id number] [place] [address] 17 Feb, 2011 [facility] [address] [id number] [place] [address] 13 Jan, 2011 [facility] [place] [facility] [address] [id number] [place] [address] 12 Jan, 2011 [facility] [address] [id number] [place] [address] September, [facility] [place] [facility] [address] [id number] [place] [address] Jun, [facility] [address] [id number] [place] [address] Apr, [facility] [address] [id number] [place] [address] Apr, [facility] [address] [id number] [place] [address] Apr, [facility] [address] [id number] [place] [address] Apr, [facility] [address] [id number] [place] [address] Apr, [facility] [address] [id number] [place] [address] 30 Mar, 2010 [facility] [place] [facility] [address] [id number] [place] [address] 24 Mar, 2010 [facility] [address] [id number] [place] [address] 23 Mar, 2010 [facility] [place] [facility] [address] [id number] [place] [address] 05 Mar, 2010 [facility] [place] [facility] [address] [id number] [place] [address] 27 Feb, 2010 [facility] [place] [facility] [address] [id number] [place] [address] 15 Jan, 2010 [facility] [address] [facility] [id number] [place] [address] Mar, [facility] [address] [id number] [address] 15 Jan, 2009 [facility] [address] [facility] [id number] [place] [address] Oct, [facility] [address] [facility] [id number] [place] [address] Apr, IMMUNIZATIONS No Known Immunizations SOCIAL HISTORY Never Assessed REASON FOR VISIT EMR-[facility] PLAN OF CARE VITAL SIGNS MEDICATIONS No [...]
--- OUTSIDE RECORDS SUMMARY | 2018-09-28 03:51 | XMS REPORT ---
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 Name Role Phone Migration, Doctor Unavailable Unavailable PROBLEMS Type Condition ICD9-CM Code QKQ09-XR Code Onset Dates Condition Status SNOMED Code Problem Essential hypertension I10 Active 66081676 Problem Bilateral low back pain without sciatica M54.5 Active 883847343 Problem Anxiety F41.9 Active 44849849 Problem Dysuria R30.0 Active 46244833 Problem Irritable bowel syndrome without diarrhea K58.9 Active 76762968 Problem Rhinosinusitis J32.9 Active 597892879 Problem Hypertriglyceridemia E78.1 Active 923426376 Problem Pre-diabetes R73.03 Active 552943492 Problem Alternating constipation and diarrhea R19.8 Active 567472980 Problem Body mass index (BMI) of 40.0-44.9 in adult Z68.41 Active 244822427 Problem Morbid (severe) obesity due to excess calories E66.01 Active 774598464 ALLERGIES No Information ENCOUNTERS Encounter Location Date Diagnosis [place] [address] [address] Aug, Acute nonintractable headache, unspecified headache type R51 ; Acute non-recurrent maxillary sinusitis J01.00 and Pre-diabetes R73.03 [place] [address] [place] [id number] [place] [address] 16 Aug, 2018 Acute vaginitis N76.0 [facility] [address] [address] Aug, Rhinosinusitis J32.9 ; Bronchitis J40 ; Folliculitis L73.9 and Morbid obesity E66.01 [place] [address] [address] Jul, [facility] [address] [address] Jul, [facility] [id number] [place] [address] Jun, [facility] [id number] [place] [address] Jun, Acute vaginitis N76.0 ; Dermatitis L30.9 ; BMI 40.0-44.9, adult Z68.41 and Morbid obesity E66.[address] [facility] [address] [place] [id number] [place] [address] Jun, Vaginal discharge N89.8 ; Urinary tract infection without hematuria, site unspecified N39.0 and BMI 40.0-44.9, adult Z68.41 [place] [address] [place] [id number] [place] [address] May, [place] [address] [place] [id number] [place] [address] May, [place] [address] [place] [id number] [place] [address] Apr, Urinary tract infection, site not specified N39.0 [place] [address] [place] [id number] [place] [address] Apr, Dysuria R30.0 ; Urinary tract infection, site not specified N39.0 and Hematuria, unspecified R31.9 [place] [address] [place] [id number] [place] [address] Mar, [place] [address] [place] [id number] [place] [address] Mar, Left anterior knee pain M25.562 ; Abscess of buttock, left L02.31 and BMI 40.0-44.9, adult Z68.41 [facility] [id number] [place] [address] Mar, [facility] WALK IN [facility] [address] [place] [id number] [place] [address] Feb, Abrasion of right ear canal, initial encounter S00.411A ; Left wrist pain M25.532 ; Right acute serous otitis media, recurrence not specified H65.01 and BMI 40.0-44.9, adult Z68.41 [facility] [address] [place] [id number] [place] [address] Jan, [place] [address] [address] Jan, [place] [address] [address] Jan, BMI 40.0-44.9, adult Z68.41 ; Pre-diabetes R73.03 ; Essential hypertension I10 ; Morbid (severe) obesity due to excess calories E66.01 ; Bilateral low back pain without sciatica M54.5 and Heartburn R12 [place] [address] [address] Jan, History of UTI Z87.440 ; Well woman exam with routine gynecological exam Z01.419 ; Screening for breast cancer Z12.31 ; Candidal vaginitis B37.3 and BMI 40.0-44.9, adult Z68.41 [place] [address] [place] [id number] [place] [address] Jan, [facility] IN [facility] [address] [place] [id number] [place] [address] Jan, Dysuria R30.0 ; Acute cystitis with hematuria N30.01 ; Yeast infection B37.9 and BMI 40.0-44.9, adult Z68.41 [place] [address] [address] Dec, [place] [address] [address] Dec, [place] [address] [address] Nov, History of UTI Z87.440 [facility] [address] [place] [address] Nov, UTI symptoms R39.9 ; Acute nasopharyngitis J00 and BMI 40.0-44.9, adult Z68.41 [place] [address] [place] [address] Nov, [facility] [address] [place] [id number] [place] [address] Nov, Yeast infection involving the vagina and surrounding area B37.3 [place] [address] [place] [id number] [place] [address] Nov, Yeast infection involving the vagina and surrounding area B37.3 [place] [address] [place] [id number] [place] [address] Nov, Yeast infection involving the vagina and surrounding area B37.3 ; Body mass index (BMI) of 40.0-44.9 in adult Z68.41 and Morbid (severe) obesity due to excess calories E66.01 [place] [address] [place] [address] Oct, Abscess of groin, left L02.214 and Pre-diabetes R73.03 [place] [address] [address] September, Pre-diabetes R73.03 [place] [address] [place] [id number] [place] [address] Aug, [facility] [address] [place] [address] Jul, Bilateral low back pain without sciatica M54.5 [facility] [address] [place] [id number] [place] [address] Jun, [place] [address] [place] [id number] [place] [address] Jun, [place] [address] [place] [id number] [place] [address] Jun, [facility] [address] [address] May, [facility] [address] [place] [id number] [place] [address] May, Ingrown left greater toenail L60.0 [facility] [address] [address] May, [facility] [address] [address] May, Influenza A J10.1 ; Fever R50.9 and Body aches R52 [facility] [address] [address] Apr, [facility] [address] [address] Apr, [facility] [address] [address] Apr, [facility] [address] [address] Apr, Abscess L02.91 and Obesity (BMI 30-39.9) E66.9 [facility] [address] [address] Apr, [facility] [address] [place] [id number] [place] [address] Apr, [facility] [address] [address] Mar, Acute non-recurrent maxillary sinusitis J01.00 [facility] [address] [place] [id number] [place] [address] Feb, Heartburn R12 [facility] [address] [address] Feb, Heartburn R12 ; Low back pain M54.5 ; Essential hypertension I10 ; Bilateral low back pain without sciatica M54.5 ; Anxiety F41.9 ; Pre-diabetes R73.03 ; Other obesity due to excess calories E66.09 ; Alternating constipation and diarrhea R19.8 ; Dyspepsia R10.13 ; Generalized abdominal pain R10.84 ; Rhinosinusitis J32.9 and Boil L02.92 [place] [address] [address] Jan, Heartburn R12 [place] [address] [address] Jan, [place] [address] [address] Jan, [place] [address] [address] Jan, Acute seasonal allergic rhinitis due to pollen J30.1 and Irritable bowel syndrome without diarrhea K58.9 [place] [address] [address] Dec, Low back pain M54.5 and Acute cystitis with hematuria N30.01 [place] [address] [address] Dec, Low back pain M54.5 and Acute cystitis with hematuria N30.01 [place] [address] [address] Dec, Heartburn R12 ; Essential hypertension I10 ; Acute non-recurrent maxillary sinusitis J01.00 ; Bilateral low back pain without sciatica M54.5 ; Anxiety F41.9 ; Pre-diabetes R73.03 ; Pain in right foot M79.671 ; Pain in left foot M79.672 ; Other obesity due to excess calories E66.09 and Acute cystitis with hematuria N30.01 [place] [address] [address] Dec, Bilateral low back pain without sciatica M54.5 ; Acute non-recurrent maxillary sinusitis J01.00 and Pre-diabetes R73.03 [place] [address] [address] Oct, [facility] [place] [address] [address] Aug, [facility] IN [place] [address] [address] Aug, Acute vaginitis N76.0 ; Urinary frequency R35.0 ; Screen for STD (sexually transmitted disease) Z11.3 and Abscess L02.91 [place] [address] [address] Aug, Plantar wart of right foot B07.0 [place] [address] [address] Jul, Plantar wart of right foot B07.0 [place] [address] [address] Jun, [place] [address] [address] Jun, Heartburn R12 ; Essential hypertension I10 ; Anxiety F41.9 ; Folliculitis L73.9 and Plantar wart of right foot B07.0 [place] [address] [address] Jun, [facility] [place] [address] [address] May, Low back pain M54.5 and Other chronic pain G89.29 [place] [address] [address] May, [place] [address] [address] May, [place] [address] [place] [id number] [place] [address] May, Heartburn R12 ; Bilateral low back pain without sciatica M54.5 ; Essential hypertension I10 ; Long-term use of high-risk medication Z79.899 ; Anxiety F41.9 ; Impacted cerumen of right ear H61.21 ; Folliculitis L73.9 ; High risk bisexual behavior Z72.53 and General medical exam Z00.00 [place] [address] [address] May, [place] [address] [address] May, [place] [address] [address] Mar, Acute nasopharyngitis J00 ; Acute intractable tension-type headache G44.201 and Cough R05 [place] [address] [place] [id number] [place] [address] Jan, [facility]ALK IN [facility] [address] [address] Jan, Abscess L02.91 [facility] [place] [address] [place] [id number] [place] [address] Jan, Urinary urgency R39.15 and Urinary tract infection without hematuria, site unspecified N39.0 [place] [address] [place] [id number] [place] [address] Jan, [place] [address] [place] [id number] [place] [address] Jan, [place] [address] [address] Dec, [place] [address] [place] [id number] [place] [address] Dec, Dermatofibroma D23.9 [place] [address] [place] [address] September, [facility] [address] [place] [id number] [place] [address] Aug, [facility] [address] [place] [id number] [place] [address] Aug, Pain in left knee M25.562 ; Heartburn R12 ; Bilateral low back pain without sciatica M54.5 ; Essential hypertension I10 ; Ingrown left big toenail L60.0 ; Chronic pain G89.29 ; Irritable bowel syndrome with constipation K58.9 and Skin infection L08.9 [facility] [address] [place] [id number] [place] [address] Aug, [facility] [address] [place] [id number] [place] [address] Jul, [facility] [address] [place] [id number] [place] [address] Jun, [facility] [address] [place] [address] Jun, [facility] [address] [place] [id number] [place] [address] Jun, [facility] [address] [place] [address] Jun, [facility] [address] [place] [address] Jun, Upper respiratory infection J06.9 ; Bilateral low back pain without sciatica M54.5 and Headache R51 [facility] [address] [place] [id number] [place] [address] May, [facility] [address] [place] [address] Apr, Bilateral low back pain without sciatica M54.5 ; Upper respiratory infection J06.9 and Yeast dermatitis B37.2 [facility] [address] [address] Apr, [facility] [address] [place] [id number] [place] [address] Apr, [facility] [address] [place] [address] Feb, [facility] [address] [place] [id number] [place] [address] Feb, [facility] [address] [place] [id number] [place] [address] Feb, [facility] [address] [place] [id number] [place] [address] Feb, Essential hypertension I10 ; Heartburn R12 ; Irritable bowel syndrome without diarrhea K58.9 ; Bilateral low back pain, with sciatica presence unspecified M54.5 and Upper respiratory infection J06.9 [place] [address] [place] [id number] [place] [address] Feb, [facility] [address] [place] [id number] [place] [address] Feb, Generalized anxiety disorder F41.1 and Grief F43.20 [place] [address] [place] [address] Jan, [facility] [address] [place] [address] Jan, Back pain 724.5 ; Upper respiratory infection 465.9 ; HTN (hypertension) 401.9 and Dyspepsia 536.8 [place] [address] [place] [id number] [place] [address] Dec, [facility] [address] [place] [id number] [place] [address] Nov, Back pain 724.5 ; Abdominal pain, bilateral lower quadrant 789.03 ; GERD (gastroesophageal reflux disease) 530.81 ; Upper respiratory infection 465.9 ; Dysuria 788.1 and HTN (hypertension) 401.9 [facility] [address] [address] Nov, [facility] [address] [place] [id number] [place] [address] Nov, [facility] [address] [place] [id number] [place] [address] Nov, [facility] [address] [place] [id number] [place] [address] Nov, Cough 786.2 [facility] [address] [place] [id number] [place] [address] Nov, Cough 786.2 [facility] [address] [place] [id number] [place] [address] Oct, Unspecified episodic mood disorder 296.90 and Anxiety disorder, unspecified 300.00 [facility] [address] [place] [id number] [place] [address] Oct, Abdominal pain, left upper quadrant 789.02 ; Essential hypertension, benign 401.1 ; Irritable bowel syndrome 564.1 ; Abscess 682.9 ; Heartburn 787.1 ; Acute sinusitis, unspecified 461.9 ; Muscle spasm of back 724.8 ; Cough 786.2 and Skin tag 701.9 [facility] [address] [place] [address] September, [facility] [address] [place] [address] September, [facility] [address] [place] [id number] [place] [address] September, [facility] [address] [place] [id number] [place] [address] Aug, [facility] [address] [place] [address] Aug, [facility] [place] [facility] [address] [id number] [place] [address] 30 Jul, 2014 [facility] [place] [facility] [address] [id number] [place] [address] 30 Jul, 2014 [facility] [place] [facility] [address] [id number] [place] [address] Jul, [facility] [place] [facility] [address] [id number] [place] [address] Jul, [facility] [place] [facility] [address] [id number] [place] [address] Jul, [facility] [place] [facility] [address] [id number] [place] [address] Jul, [facility] [place] [facility] [address] [id number] [place] [address] Jul, [facility] [place] [facility] [address] [id number] [place] [address] Jul, [facility] [place] [facility] [address] [id number] [place] [address] Jul, [facility] [place] [facility] [address] [id number] [place] [address] Jul, [facility] [place] [facility] [address] [id number] [place] [address] Jul, [facility] [place] [facility] [address] [id number] [place] [address] Jul, [facility] [place] [facility] [address] [id number] [place] [address] Jul, [facility] [place] [facility] [address] [id number] [place] [address] Jul, [facility] [place] [facility] [address] [id number] [place] [address] Jul, [facility] [place] [facility] [address] [id number] [place] [address] Jul, 2014 [facility] [place] [facility] [address] [facility] [id number] [place] [address] Jul, 2014 [facility] [place] [facility] [address] [facility] [id number] [place] [address] Jun, 2014 [facility] [place] [facility] [address] [facility] [id number] [place] [address] Jun, 2014 [facility] [place] [facility] [address] [facility] [id number] [place] [address] Jun, 2014 [facility] [place] [facility] [address] [facility] [id number] [place] [address] Jun, 2014 [facility] [place] [facility] [address] [facility] [id number] [place] [address] Jun, 2014 [facility] [place] [facility] [address] [facility] [id number] [place] [address] Jun, 2014 [facility] [place] [facility] [address] [facility] [id number] [place] [address] Jun, 2014 [facility] [place] [facility] [address] [facility] [id number] [place] [address] Jun, 2014 [facility] [place] [facility] [address] [facility] [id number] [place] [address] Apr, [facility] [place] [facility] [address] [facility] [id number] [place] [address] Apr, [facility] [place] [facility] [address] [facility] [id number] [place] [address] Apr, [facility] [place] [facility] [address] [facility] [id number] [place] [address] Apr, [facility] [place] [facility] [address] [facility] [id number] [place] [address] Apr, [facility] [place] [facility] [address] [facility] [id number] [place] [address] Apr, [facility] [place] [facility] [address] [id number] [place] [address] 15 Apr, 2014 [facility] [place] [facility] [address] [id number] [place] [address] Apr, [facility] [place] [facility] [address] [id number] [place] [address] Apr, [facility] [place] [facility] [address] [id number] [place] [address] Apr, [facility] [place] [facility] [address] [id number] [place] [address] Apr, [facility] [place] [facility] [address] [id number] [place] [address] Apr, [facility] [place] [facility] [address] [id number] [place] [address] Apr, [facility] [place] [facility] [address] [id number] [place] [address] Apr, [facility] [place] [facility] [address] [id number] [place] [address] Apr, [facility] [place] [facility] [address] [id number] [place] [address] Feb, [facility] [place] [facility] [address] [id number] [place] [address] Feb, [facility] [place] [facility] [address] [id number] [place] [address] Feb, [facility] [place] [facility] [address] [id number] [place] [address] Feb, [facility] [place] [facility] [address] [id number] [place] [address] Feb, [facility] [place] [facility] [address] [id number] [place] [address] Feb, [facility] [place] [facility] [address] [id number] [place] [address] Jan, [facility] [place] [facility] [address] [id number] [place] [address] Jan, 2013 [facility] [place] [facility] [address] [id number] [place] [address] Jan, [facility] [place] [facility] [address] [id number] [place] [address] Jan, 2013 [facility] [place] [facility] [address] [id number] [place] [address] Jan, [facility] [place] [facility] [address] [id number] [place] [address] Jan, [facility] [place] [facility] [address] [id number] [place] [address] Dec, [facility] [place] [facility] [address] [id number] [place] [address] Dec, [facility] [place] [facility] [address] [id number] [place] [address] Dec, [facility] [place] [facility] [address] [id number] [place] [address] Dec, [facility] [place] [facility] [address] [id number] [place] [address] Nov, [facility] [place] [facility] [address] [id number] [place] [address] Nov, [facility] [place] [facility] [address] [id number] [place] [address] Nov, [facility] [place] [facility] [address] [id number] [place] [address] Nov, [facility] [place] [facility] [address] [id number] [place] [address] Nov, [facility] [place] [facility] [address] [id number] [place] [address] Nov, [facility] [place] [facility] [address] [id number] [place] [address] 15 Nov, 2013 [facility] [place] [facility] [address] [id number] [place] [address] 15 Nov, 2013 [facility] [place] [facility] [address] [id number] [place] [address] Oct, [facility] [place] [facility] [address] [id number] [place] [address] Oct, [facility] [place] [facility] [address] [id number] [place] [address] Oct, [facility] [place] [facility] [address] [id number] [place] [address] Oct, [facility] [place] [facility] [address] [id number] [place] [address] Oct, [facility] [place] [facility] [address] [id number] [place] [address] Oct, [facility] [place] [facility] [address] [id number] [place] [address] Oct, [facility] [place] [facility] [address] [id number] [place] [address] Oct, [facility] [place] [facility] [address] [facility] [id number] [place] [address] Oct, [facility] [place] [facility] [address] [id number] [place] [address] Oct, [facility] [place] [facility] [address] [id number] [place] [address] Oct, [facility] [place] [facility] [address] [id number] [place] [address] Oct, [facility] [place] [facility] [address] [id number] [place] [address] Oct, [facility] [place] [facility] [address] [id number] [place] [address] Oct, [facility] [place] [facility] [address] [id number] [place] [address] 17 Oct, 2013 [facility] [place] [facility] [address] [address] [id number] [place] [address] 17 Oct, 2013 [facility] [place] [facility] [address] [id number] [place] [address] 16 Oct, 2013 [facility] [place] [facility] [address] [id number] [place] [address] Oct, [facility] [place] [facility] [address] [id number] [place] [address] Oct, [facility] [place] [facility] [address] [id number] [place] [address] Oct, [facility] [place] [facility] [address] [id number] [place] [address] Oct, [facility] [place] [facility] [address] [id number] [place] [address] Oct, [facility] [place] [facility] [address] [id number] [place] [address] Oct, [facility] [place] [facility] [address] [id number] [place] [address] Oct, [facility] [place] [facility] [address] [id number] [place] [address] Oct, [facility] [place] [facility] [address] [id number] [place] [address] Oct, [facility] [place] [facility] [address] [id number] [place] [address] Oct, [facility] [place] [facility] [address] [id number] [place] [address] Oct, [facility] [place] [facility] [address] [id number] [place] [address] Oct, [facility] [place] [facility] [address] [id number] [place] [address] Oct, [facility] [place] [facility] [address] [id number] [place] [address] September, [facility] [place] [facility] [address] [id number] [place] [address] September, [facility] [place] [facility] [address] [id number] [place] [address] September, [facility] [place] [facility] [address] [id number] [place] [address] September, [facility] [place] [facility] [address] [id number] [place] [address] September, [facility] [place] [facility] [address] [id number] [place] [address] September, [facility] [place] [facility] [address] [id number] [place] [address] September, [facility] [place] [facility] [address] [id number] [place] [address] September, [facility] [place] [facility] [address] [id number] [place] [address] September, [facility] [place] [facility] [address] [id number] [place] [address] September, [facility] [place] [facility] [address] [id number] [place] [address] September, [facility] [place] [facility] [address] [id number] [place] [address] September, [facility] [place] [facility] [address] [id number] [place] [address] September, [facility] [place] [facility] [address] [id number] [place] [address] September, [facility] [place] [facility] [address] [id number] [place] [address] September, [facility] [place] [facility] [address] [id number] [place] [address] September, [facility] [address] [id number] [place] [address] September, [facility] [place] [facility] [address] [id number] [place] [address] September, [facility] [address] [id number] [place] [address] Aug, [facility] [place] [facility] [address] [id number] [place] [address] Aug, [facility] [place] [facility] [address] [id number] [place] [address] Aug, [facility] [place] [facility] [address] [id number] [place] [address] Aug, [facility] [place] [facility] [address] [id number] [place] [address] Aug, [facility] [address] [id number] [place] [address] Aug, [facility] [place] [facility] [address] [id number] [place] [address] Jul, [facility] [address] [id number] [place] [address] Jul, [facility] [place] [facility] [address] [id number] [place] [address] Jul, [facility] [place] [facility] [address] [id number] [place] [address] Jul, [facility] [place] [facility] [address] [id number] [place] [address] Jun, [facility] [place] [facility] [address] [id number] [place] [address] Jun, [facility] [place] [facility] [address] [id number] [place] [address] Jun, [facility] [place] [facility] [address] [id number] [place] [address] Jun, [facility] [place] [facility] [address] [id number] [place] [address] Mar, [facility] [place] [facility] [address] [id number] [place] [address] Mar, [facility] [place] [facility] [address] [id number] [place] [address] Mar, [facility] [place] [facility] [address] [id number] [place] [address] Mar, [facility] [place] [facility] [address] [id number] [place] [address] Feb, [facility] [place] [facility] [address] [id number] [place] [address] Feb, [facility] [place] [facility] [address] [id number] [place] [address] Feb, [facility] [place] [facility] [address] [id number] [place] [address] Jan, [facility] [place] [facility] [address] [id number] [place] [address] 20 Jan, 2013 [facility] [place] [facility] [address] [id number], [place] [address] 12 Jan, 2013 [facility] [place] [facility] [address] [id number], [place] [address] 05 Jan, 2013 [facility] [place] [facility] [address] [id number] [place] [address] Dec, [facility] [place] [facility] [address] [id number], [place] [address] 15 Dec, 2012 [facility] [place] [facility] [address] [id number] [place] [address] Dec, [facility] [place] [facility] [address] [id number] [place] [address] Dec, [facility] [place] [facility] [address] [id number] [place] [address] Nov, [facility] [place] [facility] [address] [id number] [place] [address] Nov, [facility] [place] [facility] [address] [id number] [place] [address] Nov, [facility] [place] [facility] [address] [id number] [place] [address] Nov, [facility] [place] [facility] [address] [id number] [place] [address] Nov, [facility] [place] [facility] [address] [id number] [place] [address] Nov, [facility] [place] [facility] [address] [id number] [place] [address] Oct, [facility] [place] [facility] [address] [id number] [place] [address] Oct, [facility] [place] [facility] [address] [id number] [place] [address] Oct, [facility] [place] [facility] [address] [id number] [place] [address] Oct, [facility] [place] [facility] [address] [id number] [place] [address] 17 Oct, 2012 [facility] [place] [facility] [address] [id number] [place] [address] 16 Oct, 2012 [facility] [place] [facility] [address] [id number] [place] [address] 14 Oct, 2012 [facility] [place] [facility] [address] [id number] [place] [address] 13 Oct, 2012 [facility] [place] [facility] [address] [id number] [place] [address] Oct, [facility] [place] [facility] [address] [id number] [place] [address] Oct, [facility] [address] [id number] [place] [address] September, [facility] [address] [id number] [place] [address] September, [facility] [address] [id number] [place] [address] September, [facility] [address] [id number] [place] [address] Aug, [facility] [address] [id number] [place] [address] Aug, [facility] [address] [id number] [place] [address] Aug, [facility] [address] [id number] [place] [address] Aug, [facility] [address] [id number] [place] [address] Jul, [facility] [address] [id number] [place] [address] Jul, [facility] [address] [id number] [place] [address] Jul, [facility] [address] [id number] [place] [address] Jul, [facility] [address] [id number] [place] [address] Jul, [facility] [place] [facility] [address] [id number] [place] [address] Jul, [facility] [address] [id number] [place] [address] May, [facility] [address] [id number] [place] [address] 29 May, 2012 [facility] [address] [id number] [place] [address] May, [facility] [place] [facility] [address] [id number] [place] [address] May, [facility] [address] [id number] [place] [address] May, [facility] [place] [facility] [address] [id number] [place] [address] May, [facility] [address] [id number] [place] [address] May, [facility] [address] [id number] [place] [address] May, [facility] [address] [id number] [place] [address] 17 May, 2012 [facility] [place] [facility] [address] [id number] [place] [address] 17 May, 2012 [facility] [address] [id number] [place] [address] 16 May, 2012 [facility] [address] [id number] [place] [address] Apr, [facility] [address] [id number] [place] [address] Apr, [facility] [place] [facility] [address] [id number] [place] [address] Apr, [facility] [place] [facility] [address] [id number] [place] [address] Apr, [facility] [place] [facility] [address] [id number] [place] [address] Apr, [facility] [place] [facility] [address] [id number] [place] [address] Apr, [facility] [place] [facility] [address] [id number] [place] [address] Mar, [facility] [place] [facility] [address] [id number] [place] [address] Mar, [facility] [place] [facility] [address] [id number] [place] [address] Mar, [facility] [place] [facility] [address] [id number] [place] [address] Mar, [facility] [place] [facility] [address] [id number] [place] [address] Mar, [facility] [place] [facility] [address] [id number] [place] [address] Mar, [facility] [place] [facility] [address] [id number] [place] [address] Mar, [facility] [place] [facility] [address] [id number] [place] [address] Mar, [facility] [place] [facility] [address] [id number] [place] [address] Feb, [facility] [place] [facility] [address] [id number] [place] [address] Feb, [facility] [place] [facility] [address] [id number] [place] [address] 16 Feb, 2012 [facility] [place] [facility] [address] [id number] [place] [address] 15 Feb, 2012 [facility] [place] [facility] [address] [id number] [place] [address] 15 Feb, 2012 [facility] [place] [facility] [address] [id number] [place] [address] 13 Feb, 2012 [facility] [place] [facility] [address] [id number] [place] [address] Feb, [facility] [place] [facility] [address] [id number] [place] [address] Feb, [facility] [place] [facility] [address] [id number] [place] [address] Feb, [facility] [place] [facility] [address] [id number] [place] [address] Feb, [facility] [place] [facility] [address] [id number] [place] [address] Feb, [facility] [place] [facility] [address] [id number] [place] [address] Feb, [facility] [place] [facility] [address] [id number] [place] [address] Feb, [facility] [place] [facility] [address] [id number] [place] [address] Feb, [facility] [place] [facility] [address] [id number] [place] [address] Feb, [facility] [place] [facility] [address] [id number], [place] [address] Feb, [facility] [place] [facility] [address] [id number] [place] [address] Feb, [facility] [place] [facility] [address] [id number], [place] [address] Feb, [facility] [place] [facility] [address] [id number], [place] [address] 19 Jan, 2012 [facility] [place] [facility] [address] [id number], [place] [address] 13 Sep2011 [facility] [place] [facility] [address] [id number], [place] [address] 11 Sep2011 [facility] [place] [facility] [address] [id number], [place] [address] 10 Sep2011 [facility] [place] [facility] [address] [id number], [place] [address] 05 Sep2011 [facility] [place] [facility] [address] [id number], [place] [address] Dec, [facility] [place] [facility] [address] [id number] [place] [address] Dec, [facility] [place] [facility] [address] [id number] [place] [address] Dec, [facility] [place] [facility] [address] [id number] [place] [address] Dec, [facility] [place] [facility] [address] [id number] [place] [address] Dec, [facility] [place] [facility] [address] [id number] [place] [address] Dec, [facility] [place] [facility] [address] [id number] [place] [address] Nov, [facility] [place] [facility] [address] [id number] [place] [address] Nov, [facility] [place] [facility] [address] [id number] [place] [address] Nov, [facility] [place] [facility] [address] [id number] [place] [address] Nov, [facility] [place] [facility] [address] [id number] [place] [address] Nov, [facility] [place] [facility] [address] [id number] [place] [address] Oct, [facility] [place] [facility] [address] [id number] [place] [address] Oct, [facility] [place] [facility] [address] [id number] [place] [address] Oct, [facility] [place] [facility] [address] [id number] [place] [address] September, [facility] [place] [facility] [address] [id number] [place] [address] September, [facility] [place] [facility] [address] [id number] [place] [address] September, [facility] [address] [id number] [place] [address] September, [facility] [place] [facility] [address] [id number] [place] [address] September, [facility] [place] [facility] [address] [id number] [place] [address] September, [facility] [place] [facility] [address] [id number] [place] [address] Aug, [facility] [place] [facility] [address] [id number] [place] [address] Aug, [facility] [place] [facility] [address] [id number] [place] [address] Aug, [facility] [place] [facility] [address] [id number] [place] [address] Jun, [facility] [place] [facility] [address] [id number] [place] [address] Jun, [facility] [place] [facility] [address] [id number] [place] [address] Jun, [facility] [place] [facility] [address] [id number] [place] [address] Jun, [facility] [place] [facility] [address] [id number] [place] [address] May, [facility] [place] [facility] [address] [id number] [place] [address] May, [facility] [place] [facility] [address] [id number] [place] [address] May, [facility] [place] [facility] [address] [id number] [place] [address] May, [facility] [place] [facility] [address] [id number] [place] [address] May, [facility] [place] [facility] [address] [id number] [place] [address] Apr, [facility] [place] [facility] [address] [id number] [place] [address] Apr, [facility] [place] [facility] [address] [id number] [place] [address] Apr, [facility] [place] [facility] [address] [id number] [place] [address] Apr, [facility] [place] [facility] [address] [id number] [place] [address] Apr, [facility] [place] [facility] [address] [id number] [place] [address] Apr, [facility] [place] [facility] [address] [id number] [place] [address] Apr, [facility] [place] [facility] [address] [id number] [place] [address] Mar, [facility] [place] [facility] [address] [id number] [place] [address] Mar, [facility] [place] [facility] [address] [id number] [place] [address] Mar, [facility] [place] [facility] [address] [id number], [place] [address] Feb, [facility] [place] [facility] [address] [id number], [place] [address] Feb, [facility] [place] [facility] [address] [id number] [place] [address] Feb, [facility] [place] [facility] [address] [id number] [place] [address] Feb, [facility] [place] [facility] [address] [id number] [place] [address] 18 Feb, 2011 [facility] [place] [facility] [address] [id number] [place] [address] 17 Feb, 2011 [facility] [address] [id number] [place] [address] 13 Jan, 2011 [facility] [place] [facility] [address] [id number] [place] [address] 12 Jan, 2011 [facility] [address] [id number] [place] [address] September, [facility] [place] [facility] [address] [id number] [place] [address] Jun, [facility] [address] [id number] [place] [address] Apr, [facility] [address] [id number] [place] [address] Apr, [facility] [address] [id number] [place] [address] Apr, [facility] [address] [id number] [place] [address] Apr, [facility] [address] [id number] [place] [address] Apr, [facility] [address] [id number] [place] [address] 30 Mar, 2010 [facility] [place] [facility] [address] [id number] [place] [address] 24 Mar, 2010 [facility] [address] [id number] [place] [address] 23 Mar, 2010 [facility] [place] [facility] [address] [id number] [place] [address] 05 Mar, 2010 [facility] [place] [facility] [address] [id number] [place] [address] 27 Feb, 2010 [facility] [place] [facility] [address] [id number] [place] [address] 15 Jan, 2010 [facility] [address] [facility] [id number] [place] [address] Mar, [facility] [address] [id number], [place] [address] 15 Jan, 2009 [facility] [address] [facility] [id number], [place] [address] Oct, [facility] [address] [facility] [id number], [place] [address] Apr, IMMUNIZATIONS No Known Immunizations SOCIAL HISTORY [...]
--- OUTSIDE RECORDS SUMMARY | 2018-09-28 03:52 | XMS REPORT ---
Author Author Migration, Doctor Organization [facility] Address Unknown Phone Unavailable Care Team Providers Care Financial Assistant Name Role Phone Migration, Doctor Unavailable Unavailable PROBLEMS Type Condition ICD9-CM Code PPJ55-CY Code Onset Dates Condition Status SNOMED Code Problem Essential hypertension I10 Active 66753467 Problem Bilateral low back pain without sciatica M54.5 Active 173146826 Problem Anxiety F41.9 Active 50670256 Problem Dysuria R30.0 Active 05554125 Problem Irritable bowel syndrome without diarrhea K58.9 Active 99127813 Problem Rhinosinusitis J32.9 Active 885917553 Problem Hypertriglyceridemia E78.1 Active 683663530 Problem Pre-diabetes R73.03 Active 213885626 Problem Alternating constipation and diarrhea R19.8 Active 808565029 Problem Body mass index (BMI) of 40.0-44.9 in adult Z68.41 Active 587431444 Problem Morbid (severe) obesity due to excess calories E66.01 Active 907572973 ALLERGIES No Information ENCOUNTERS Encounter Location Date Diagnosis [place] [address] [address] Aug, Acute nonintractable headache, unspecified headache type R51 ; Acute non-recurrent maxillary sinusitis J01.00 and Pre-diabetes R73.03 [place] [address] [place] [id number] [place] [address] 16 Aug, 2018 Acute vaginitis N76.0 [facility] [address] [address] 08 Aug, 2018 Rhinosinusitis J32.9 ; Bronchitis J40 ; Folliculitis L73.9 and Morbid obesity E66.01 [place] [address] [address] Jul, [facility] [address] [address] Jul, [facility] [id number] [place] [address] Jun, [facility] [id number] [place] [address] Jun, Acute vaginitis N76.0 ; Dermatitis L30.9 ; BMI 40.0-44.9, adult Z68.41 and Morbid obesity E66.01 [facility] [address] [place] [id number] [place] [address] Jun, Vaginal discharge N89.8 ; Urinary tract infection without hematuria, site unspecified N39.0 and BMI 40.0-44.9, adult Z68.41 [place] [address] [place] [id number] [place] [address] May, [place] [address] [place] [id number] [place] [address] May, [place] [address] [place] [id number] [place] [address] Apr, Urinary tract infection, site not specified N39.0 [place] [address] [place] [id number] [place] [address] Apr, Dysuria R30.0 ; Urinary tract infection, site not specified N39.0 and Hematuria, unspecified R31.9 [place] [address] [place] [id number] [place] [address] Mar, [place] [address] [place] [id number] [place] [address] Mar, Left anterior knee pain M25.562 ; Abscess of buttock, left L02.31 and BMI 40.0-44.9, adult Z68.41 [facility] [id number] [place] [address] Mar, [facility] [address] [place] [id number] [place] [address] Feb, Abrasion of right ear canal, initial encounter S00.411A ; Left wrist pain M25.532 ; Right acute serous otitis media, recurrence not specified H65.01 and BMI 40.0-44.9, adult Z68.41 [facility] [address] [place] [id number] [place] [address] Jan, [place] [address] [address] Jan, [place] [address] [address] Jan, BMI 40.0-44.9, adult Z68.41 ; Pre-diabetes R73.03 ; Essential hypertension I10 ; Morbid (severe) obesity due to excess calories E66.01 ; Bilateral low back pain without sciatica M54.5 and Heartburn R12 [place] [address] [address] Jan, History of UTI Z87.440 ; Well woman exam with routine gynecological exam Z01.419 ; Screening for breast cancer Z12.31 ; Candidal vaginitis B37.3 and BMI 40.0-44.9, adult Z68.41 [place] [address] [place] [id number] [place] [address] Jan, [facility] [address] [place] [id number] [place] [address] Jan, Dysuria R30.0 ; Acute cystitis with hematuria N30.01 ; Yeast infection B37.9 and BMI 40.0-44.9, adult Z68.41 [place] [address] [address] Dec, [place] [address] [address] Dec, [place] [address] [address] Nov, History of UTI Z87.440 [facility] [id number] [place] [address] Nov, UTI symptoms R39.9 ; Acute nasopharyngitis J00 and BMI 40.0-44.9, adult Z68.41 [place] [id number] [place] [address] Nov, [facility] [address] [place] [id number] [place] [address] Nov, Yeast infection involving the vagina and surrounding area B37.3 [place] [address] [place] [id number] [place] [address] Nov, Yeast infection involving the vagina and surrounding area B37.3 [place] [address] [place] [id number] [place] [address] Nov, Yeast infection involving the vagina and surrounding area B37.3 ; Body mass index (BMI) of 40.0-44.9 in adult Z68.41 and Morbid (severe) obesity due to excess calories E66.01 [place] [address] [place] [address] Oct, Abscess of groin, left L02.214 and Pre-diabetes R73.03 [place] [address] [address] September, Pre-diabetes R73.03 [place] [address] [place] [id number] [place] [address] Aug, [facility] [id number] [place] [address] Jul, Bilateral low back pain without sciatica M54.5 [facility] [address] [place] [id number] [place] [address] Jun, [place] [address] [place] [id number] [place] [address] Jun, [place] [address] [place] [id number] [place] [address] Jun, [facility] [address] [address] May, [facility] [address] [place] [id number] [place] [address] May, Ingrown left greater toenail L60.0 [facility] [address] [address] May, [facility] [address] [address] May, Influenza A J10.1 ; Fever R50.9 and Body aches R52 [facility] [address] [address] Apr, [facility] [address] [address] Apr, [facility] [address] [address] Apr, [facility] [address] [address] Apr, Abscess L02.91 and Obesity (BMI 30-39.9) E66.9 [facility] [address] [address] Apr, [facility] [address] [place] [id number] [place] [address] Apr, [facility] [address] [address] Mar, Acute non-recurrent maxillary sinusitis J01.00 [facility] [address] [place] [id number] [place] [address] Feb, Heartburn R12 [facility] [address] [address] Feb, Heartburn R12 ; Low back pain M54.5 ; Essential hypertension I10 ; Bilateral low back pain without sciatica M54.5 ; Anxiety F41.9 ; Pre-diabetes R73.03 ; Other obesity due to excess calories E66.09 ; Alternating constipation and diarrhea R19.8 ; Dyspepsia R10.13 ; Generalized abdominal pain R10.84 ; Rhinosinusitis J32.9 and Boil L02.92 [place] [address] [address] Jan, Heartburn R12 [place] [address] [address] Jan, [place] [address] [address] Jan, [place] [address] [address] Jan, Acute seasonal allergic rhinitis due to pollen J30.1 and Irritable bowel syndrome without diarrhea K58.9 [place] [address] [address] Dec, Low back pain M54.5 and Acute cystitis with hematuria N30.01 [place] [address] [address] Dec, Low back pain M54.5 and Acute cystitis with hematuria N30.01 [place] [address] [address] Dec, Heartburn R12 ; Essential hypertension I10 ; Acute non-recurrent maxillary sinusitis J01.00 ; Bilateral low back pain without sciatica M54.5 ; Anxiety F41.9 ; Pre-diabetes R73.03 ; Pain in right foot M79.671 ; Pain in left foot M79.672 ; Other obesity due to excess calories E66.09 and Acute cystitis with hematuria N30.01 [place] [address] [address] Dec, Bilateral low back pain without sciatica M54.5 ; Acute non-recurrent maxillary sinusitis J01.00 and Pre-diabetes R73.03 [place] [address] [address] Oct, [facility] [place] [address] [address] Aug, [facility] [place] [address] [address] Aug, Acute vaginitis N76.0 ; Urinary frequency R35.0 ; Screen for STD (sexually transmitted disease) Z11.3 and Abscess L02.91 [place] [address] [address] Aug, Plantar wart of right foot B07.0 [place] [address] [address] Jul, Plantar wart of right foot B07.0 [place] [address] [address] Jun, [place] [address] [address] Jun, Heartburn R12 ; Essential hypertension I10 ; Anxiety F41.9 ; Folliculitis L73.9 and Plantar wart of right foot B07.0 [place] [address] [address] Jun, [facility] [place] [address] [address] May, Low back pain M54.5 and Other chronic pain G89.29 [place] [address] [address] May, [place] [address] [address] May, [place] [address] [place] [id number] [place] [address] May, Heartburn R12 ; Bilateral low back pain without sciatica M54.5 ; Essential hypertension I10 ; Long-term use of high-risk medication Z79.899 ; Anxiety F41.9 ; Impacted cerumen of right ear H61.21 ; Folliculitis L73.9 ; High risk bisexual behavior Z72.53 and General medical exam Z00.00 [place] [address] [address] May, [place] [address] [address] May, [place] [address] [address] Mar, Acute nasopharyngitis J00 ; Acute intractable tension-type headache G44.201 and Cough R05 [place] [address] [place] [id number] [place] [address] Jan, [facility] [address] [address] Jan, Abscess L02.91 [facility] [place] [address] [place] [id number] [place] [address] Jan, Urinary urgency R39.15 and Urinary tract infection without hematuria, site unspecified N39.0 [place] [address] [place] [id number] [place] [address] Jan, [place] [address] [place] [id number] [place] [address] Jan, [place] [address] [address] Dec, [place] [address] [place] [id number] [place] [address] Dec, Dermatofibroma D23.9 [place] [address] [place] [address] September, [facility] [address] [place] [id number] [place] [address] Aug, [facility] [address] [place] [id number] [place] [address] Aug, Pain in left knee M25.562 ; Heartburn R12 ; Bilateral low back pain without sciatica M54.5 ; Essential hypertension I10 ; Ingrown left big toenail L60.0 ; Chronic pain G89.29 ; Irritable bowel syndrome with constipation K58.9 and Skin infection L08.9 [facility] [address] [place] [id number] [place] [address] Aug, [facility] [address] [place] [id number] [place] [address] Jul, [facility] [address] [place] [id number] [place] [address] Jun, [facility] [id number] [place] [address] Jun, [facility] [address] [place] [id number] [place] [address] Jun, [facility] [id number] [place] [address] Jun, [facility] [id number] [place] [address] Jun, Upper respiratory infection J06.9 ; Bilateral low back pain without sciatica M54.5 and Headache R51 [facility] [address] [place] [id number] [place] [address] May, [facility] [id number] [place] [address] Apr, Bilateral low back pain without sciatica M54.5 ; Upper respiratory infection J06.9 and Yeast dermatitis B37.2 [facility] [address] [address] Apr, [facility] [address] [place] [id number] [place] [address] Apr, [facility] [id number] [place] [address] Feb, [facility] [address] [place] [id number] [place] [address] Feb, [facility] [address] [place] [id number] [place] [address] Feb, [facility] [address] [place] [id number] [place] [address] Feb, Essential hypertension I10 ; Heartburn R12 ; Irritable bowel syndrome without diarrhea K58.9 ; Bilateral low back pain, with sciatica presence unspecified M54.5 and Upper respiratory infection J06.9 [place] [address] [place] [id number] [place] [address] Feb, [facility] [address] [place] [id number] [place] [address] Feb, Generalized anxiety disorder F41.1 and Grief F43.20 [place] [id number] [place] [address] Jan, [facility] [id number] [place] [address] Jan, Back pain 724.5 ; Upper respiratory infection 465.9 ; HTN (hypertension) 401.9 and Dyspepsia 536.8 [place] [address] [place] [id number] [place] [address] Dec, [facility] [address] [place] [id number] [place] [address] Nov, Back pain 724.5 ; Abdominal pain, bilateral lower quadrant 789.03 ; GERD (gastroesophageal reflux disease) 530.81 ; Upper respiratory infection 465.9 ; Dysuria 788.1 and HTN (hypertension) 401.9 [facility] [address] [address] Nov, [facility] [address] [place] [id number] [place] [address] Nov, [facility] [address] [place] [id number] [place] [address] Nov, [facility] [address] [place] [id number] [place] [address] Nov, Cough 786.2 [facility] [address] [place] [id number] [place] [address] Nov, Cough 786.2 [facility] [address] [place] [id number] [place] [address] Oct, Unspecified episodic mood disorder 296.90 and Anxiety disorder, unspecified 300.00 [facility] [address] [place] [id number] [place] [address] Oct, Abdominal pain, left upper quadrant 789.02 ; Essential hypertension, benign 401.1 ; Irritable bowel syndrome 564.1 ; Abscess 682.9 ; Heartburn 787.1 ; Acute sinusitis, unspecified 461.9 ; Muscle spasm of back 724.8 ; Cough 786.2 and Skin tag 701.9 [facility] [address] [place] [address] September, [facility] [id number] [place] [address] September, [facility] [address] [place] [id number] [place] [address] September, [facility] [address] [place] [id number] [place] [address] Aug, [facility] [id number] [place] [address] Aug, [facility] [place] [facility] [address] [id number] [place] [address] 30 Jul, 2014 [facility] [place] [facility] [address] [id number] [place] [address] 30 Jul, 2014 [facility] [place] [facility] [address] [id number] [place] [address] Jul, [facility] [place] [facility] [address] [id number] [place] [address] Jul, [facility] [place] [facility] [address] [id number] [place] [address] Jul, [facility] [place] [facility] [address] [id number] [place] [address] Jul, [facility] [place] [facility] [address] [id number] [place] [address] Jul, [facility] [place] [facility] [address] [id number] [place] [address] Jul, [facility] [place] [facility] [address] [id number] [place] [address] Jul, [facility] [place] [facility] [address] [id number] [place] [address] Jul, [facility] [place] [facility] [address] [id number] [place] [address] Jul, [facility] [place] [facility] [address] [id number] [place] [address] Jul, [facility] [place] [facility] [address] [id number] [place] [address] Jul, [facility] [place] [facility] [address] [id number] [place] [address] Jul, [facility] [place] [facility] [address] [id number] [place] [address] Jul, [facility] [place] [facility] [address] [id number] [place] [address] Jul, 2014 [facility] [place] [facility] [address] [facility] [id number] [place] [address] Jul, 2014 [facility] [place] [facility] [address] [facility] [id number] [place] [address] Jun, 2014 [facility] [place] [facility] [address] [facility] [id number] [place] [address] Jun, 2014 [facility] [place] [facility] [address] [facility] [id number] [place] [address] Jun, 2014 [facility] [place] [facility] [address] [facility] [id number] [place] [address] Jun, 2014 [facility] [place] [facility] [address] [facility] [id number] [place] [address] Jun, 2014 [facility] [place] [facility] [address] [facility] [id number] [place] [address] Jun, 2014 [facility] [place] [facility] [address] [facility] [id number] [place] [address] Jun, 2014 [facility] [place] [facility] [address] [facility] [id number] [place] [address] Jun, 2014 [facility] [place] [facility] [address] [facility] [id number] [place] [address] Apr, [facility] [place] [facility] [address] [facility] [id number] [place] [address] Apr, [facility] [place] [facility] [address] [facility] [id number] [place] [address] Apr, [facility] [place] [facility] [address] [facility] [id number] [place] [address] Apr, [facility] [place] [facility] [address] [facility] [id number] [place] [address] Apr, [facility] [place] [facility] [address] [facility] [id number] [place] [address] Apr, [facility] [place] [facility] [address] [id number] [place] [address] 15 Apr, 2014 [facility] [place] [facility] [address] [id number] [place] [address] Apr, [facility] [place] [facility] [address] [id number] [place] [address] Apr, [facility] [place] [facility] [address] [id number] [place] [address] Apr, [facility] [place] [facility] [address] [id number] [place] [address] Apr, [facility] [place] [facility] [address] [id number] [place] [address] Apr, [facility] [place] [facility] [address] [id number] [place] [address] Apr, [facility] [place] [facility] [address] [id number] [place] [address] Apr, [facility] [place] [facility] [address] [id number] [place] [address] Apr, [facility] [place] [facility] [address] [id number] [place] [address] Feb, [facility] [place] [facility] [address] [id number] [place] [address] Feb, [facility] [place] [facility] [address] [id number] [place] [address] Feb, [facility] [place] [facility] [address] [id number] [place] [address] Feb, [facility] [place] [facility] [address] [id number] [place] [address] Feb, [facility] [place] [facility] [address] [id number] [place] [address] Feb, [facility] [place] [facility] [address] [id number] [place] [address] Jan, [facility] [place] [facility] [address] [id number] [place] [address] Jan, 2013 [facility] [place] [facility] [address] [id number] [place] [address] Jan, [facility] [place] [facility] [address] [id number] [place] [address] Jan, 2013 [facility] [place] [facility] [address] [id number] [place] [address] Jan, [facility] [place] [facility] [address] [id number] [place] [address] Jan, [facility] [place] [facility] [address] [id number] [place] [address] Dec, [facility] [place] [facility] [address] [id number] [place] [address] Dec, [facility] [place] [facility] [address] [id number] [place] [address] Dec, [facility] [place] [facility] [address] [id number] [place] [address] Dec, [facility] [place] [facility] [address] [id number] [place] [address] Nov, [facility] [place] [facility] [address] [id number] [place] [address] Nov, [facility] [place] [facility] [address] [id number] [place] [address] Nov, [facility] [place] [facility] [address] [id number] [place] [address] Nov, [facility] [place] [facility] [address] [id number] [place] [address] Nov, [facility] [place] [facility] [address] [id number] [place] [address] Nov, [facility] [place] [facility] [address] [id number] [place] [address] 15 Nov, 2013 [facility] [place] [facility] [address] [id number] [place] [address] 15 Nov, 2013 [facility] [place] [facility] [address] [id number] [place] [address] Oct, [facility] [place] [facility] [address] [id number] [place] [address] Oct, [facility] [place] [facility] [address] [id number] [place] [address] Oct, [facility] [place] [facility] [address] [id number] [place] [address] Oct, [facility] [place] [facility] [address] [id number] [place] [address] Oct, [facility] [place] [facility] [address] [id number] [place] [address] Oct, [facility] [place] [facility] [address] [id number] [place] [address] Oct, [facility] [place] [facility] [address] [id number] [place] [address] Oct, [facility] [place] [facility] [address] [facility] [id number] [place] [address] Oct, [facility] [place] [facility] [address] [id number] [place] [address] Oct, [facility] [place] [facility] [address] [id number] [place] [address] Oct, [facility] [place] [facility] [address] [id number] [place] [address] Oct, [facility] [place] [facility] [address] [id number] [place] [address] Oct, [facility] [place] [facility] [address] [id number] [place] [address] Oct, [facility] [place] [facility] [address] [address] [id number] [place] [address] 17 Oct, 2013 [facility] [place] [facility] [address] [id number] [place] [address] 17 Oct, 2013 [facility] [place] [facility] [address] [id number] [place] [address] 16 Oct, 2013 [facility] [place] [facility] [address] [id number] [place] [address] Oct, [facility] [place] [facility] [address] [id number] [place] [address] Oct, [facility] [place] [facility] [address] [id number] [place] [address] Oct, [facility] [place] [facility] [address] [id number] [place] [address] Oct, [facility] [place] [facility] [address] [id number] [place] [address] Oct, [facility] [place] [facility] [address] [id number] [place] [address] Oct, [facility] [place] [facility] [address] [id number] [place] [address] Oct, [facility] [place] [facility] [address] [id number] [place] [address] Oct, [facility] [place] [facility] [address] [id number] [place] [address] Oct, [facility] [place] [facility] [address] [id number] [place] [address] Oct, [facility] [place] [facility] [address] [id number] [place] [address] Oct, [facility] [place] [facility] [address] [id number] [place] [address] Oct, [facility] [place] [facility] [address] [id number] [place] [address] Oct, [facility] [place] [facility] [address] [id number] [place] [address] September, [facility] [place] [facility] [address] [id number] [place] [address] September, [facility] [place] [facility] [address] [id number] [place] [address] September, [facility] [place] [facility] [address] [id number] [place] [address] September, [facility] [place] [facility] [address] [id number] [place] [address] September, [facility] [place] [facility] [address] [id number] [place] [address] September, [facility] [place] [facility] [address] [id number] [place] [address] September, [facility] [place] [facility] [address] [id number] [place] [address] September, [facility] [place] [facility] [address] [id number] [place] [address] September, [facility] [place] [facility] [address] [id number] [place] [address] September, [facility] [place] [facility] [address] [id number] [place] [address] September, [facility] [place] [facility] [address] [id number] [place] [address] September, [facility] [place] [facility] [address] [id number] [place] [address] September, [facility] [place] [facility] [address] [id number] [place] [address] September, [facility] [place] [facility] [address] [id number] [place] [address] September, [facility] [place] [facility] [address] [id number] [place] [address] September, [facility] [address] [id number] [place] [address] September, [facility] [place] [facility] [address] [id number] [place] [address] September, [facility] [address] [id number] [place] [address] Aug, [facility] [place] [facility] [address] [id number] [place] [address] Aug, [facility] [place] [facility] [address] [id number] [place] [address] Aug, [facility] [place] [facility] [address] [id number] [place] [address] Aug, [facility] [place] [facility] [address] [id number] [place] [address] Aug, [facility] [address] [id number] [place] [address] Aug, [facility] [place] [facility] [address] [id number] [place] [address] Jul, [facility] [address] [id number] [place] [address] Jul, [facility] [place] [facility] [address] [id number] [place] [address] Jul, [facility] [place] [facility] [address] [id number] [place] [address] Jul, [facility] [place] [facility] [address] [id number] [place] [address] Jun, [facility] [place] [facility] [address] [id number] [place] [address] Jun, [facility] [place] [facility] [address] [id number] [place] [address] Jun, [facility] [place] [facility] [address] [id number] [place] [address] Jun, [facility] [place] [facility] [address] [id number] [place] [address] Mar, [facility] [place] [facility] [address] [id number] [place] [address] Mar, [facility] [place] [facility] [address] [id number] [place] [address] Mar, [facility] [place] [facility] [address] [id number] [place] [address] Mar, [facility] [place] [facility] [address] [id number] [place] [address] Feb, [facility] [place] [facility] [address] [id number] [place] [address] Feb, [facility] [place] [facility] [address] [id number] [place] [address] Feb, [facility] [place] [facility] [address] [id number] [place] [address] Jan, [facility] [place] [facility] [address] [id number] [place] [address] 20 Jan, 2013 [facility] [place] [facility] [address] [id number] [address] 12 Jan, 2013 [facility] [place] [facility] [address] [id number] [address] 05 Jan, 2013 [facility] [place] [facility] [address] [id number] [place] [address] Dec, [facility] [place] [facility] [address] [id number] [address] 15 Dec, 2012 [facility] [place] [facility] [address] [id number] [place] [address] Dec, [facility] [place] [facility] [address] [id number] [place] [address] Dec, [facility] [place] [facility] [address] [id number] [place] [address] Nov, [facility] [place] [facility] [address] [id number] [place] [address] Nov, [facility] [place] [facility] [address] [id number] [place] [address] Nov, [facility] [place] [facility] [address] [id number] [place] [address] Nov, [facility] [place] [facility] [address] [id number] [place] [address] Nov, [facility] [place] [facility] [address] [id number] [place] [address] Nov, [facility] [place] [facility] [address] [id number] [place] [address] Oct, [facility] [place] [facility] [address] [id number] [place] [address] Oct, [facility] [place] [facility] [address] [id number] [place] [address] Oct, [facility] [place] [facility] [address] [id number] [place] [address] Oct, [facility] [place] [facility] [address] [id number] [place] [address] 17 Oct, 2012 [facility] [place] [facility] [address] [id number] [place] [address] 16 Oct, 2012 [facility] [place] [facility] [address] [id number] [place] [address] 14 Oct, 2012 [facility] [place] [facility] [address] [id number] [place] [address] 13 Oct, 2012 [facility] [place] [facility] [address] [id number] [place] [address] Oct, [facility] [place] [facility] [address] [id number] [place] [address] Oct, [facility] [address] [id number] [place] [address] September, [facility] [address] [id number] [place] [address] September, [facility] [address] [id number] [place] [address] September, [facility] [address] [id number] [place] [address] Aug, [facility] [address] [id number] [place] [address] Aug, [facility] [address] [id number] [place] [address] Aug, [facility] [address] [id number] [place] [address] Aug, [facility] [address] [id number] [place] [address] Jul, [facility] [address] [id number] [place] [address] Jul, [facility] [address] [id number] [place] [address] Jul, [facility] [address] [id number] [place] [address] Jul, [facility] [address] [id number] [place] [address] Jul, [facility] [place] [facility] [address] [id number] [place] [address] Jul, [facility] [address] [id number] [place] [address] May, [facility] [address] [id number] [place] [address] 29 May, 2012 [facility] [address] [id number] [place] [address] May, [facility] [place] [facility] [address] [id number] [place] [address] May, [facility] [address] [id number] [place] [address] May, [facility] [place] [facility] [address] [id number] [place] [address] May, [facility] [address] [id number] [place] [address] May, [facility] [address] [id number] [place] [address] May, [facility] [address] [id number] [place] [address] 17 May, 2012 [facility] [place] [facility] [address] [id number] [place] [address] 17 May, 2012 [facility] [address] [id number] [place] [address] 16 May, 2012 [facility] [address] [id number] [place] [address] Apr, [facility] [address] [id number] [place] [address] Apr, [facility] [place] [facility] [address] [id number] [place] [address] Apr, [facility] [place] [facility] [address] [id number] [place] [address] Apr, [facility] [place] [facility] [address] [id number] [place] [address] Apr, [facility] [place] [facility] [address] [id number] [place] [address] Apr, [facility] [place] [facility] [address] [id number] [place] [address] Mar, [facility] [place] [facility] [address] [id number] [place] [address] Mar, [facility] [place] [facility] [address] [id number] [place] [address] Mar, [facility] [place] [facility] [address] [id number] [place] [address] Mar, [facility] [place] [facility] [address] [id number] [place] [address] Mar, [facility] [place] [facility] [address] [id number] [place] [address] Mar, [facility] [place] [facility] [address] [id number] [place] [address] Mar, [facility] [place] [facility] [address] [id number] [place] [address] Mar, [facility] [place] [facility] [address] [id number] [place] [address] Feb, [facility] [place] [facility] [address] [id number] [place] [address] Feb, [facility] [place] [facility] [address] [id number] [place] [address] 16 Feb, 2012 [facility] [place] [facility] [address] [id number] [place] [address] 15 Feb, 2012 [facility] [place] [facility] [address] [id number] [place] [address] 15 Feb, 2012 [facility] [place] [facility] [address] [id number] [place] [address] 13 Feb, 2012 [facility] [place] [facility] [address] [id number] [place] [address] Feb, [facility] [place] [facility] [address] [id number] [place] [address] Feb, [facility] [place] [facility] [address] [id number] [place] [address] Feb, [facility] [place] [facility] [address] [id number] [place] [address] Feb, [facility] [place] [facility] [address] [id number] [place] [address] Feb, [facility] [place] [facility] [address] [id number] [place] [address] Feb, [facility] [place] [facility] [address] [id number] [place] [address] Feb, [facility] [place] [facility] [address] [id number] [place] [address] Feb, [facility] [place] [facility] [address] [id number] [place] [address] Feb, [facility] [place] [facility] [address] [id number] [address] Feb, [facility] [place] [facility] [address] [id number] [place] [address] Feb, [facility] [place] [facility] [address] [id number] [address] Feb, [facility] [place] [facility] [address] [id number][place] [address] 19 Jan, 2012 [facility] [place] [facility] [address] [id number] [address] 13 Sep2011 [facility] [place] [facility] [address] [id number][place] [address] 11 Sep2011 [facility] [place] [facility] [address] [id number], [place] [address] 10 Sep2011 [facility] [place] [facility] [address] [id number][place] [address] 05 Sep2011 [facility] [place] [facility] [address] [id number][place] [address] Dec, [facility] [place] [facility] [address] [id number] [place] [address] Dec, [facility] [place] [facility] [address] [id number] [place] [address] Dec, [facility] [place] [facility] [address] [id number] [place] [address] Dec, [facility] [place] [facility] [address] [id number] [place] [address] Dec, [facility] [place] [facility] [address] [id number] [place] [address] Dec, [facility] [place] [facility] [address] [id number] [place] [address] Nov, [facility] [place] [facility] [address] [id number] [place] [address] Nov, [facility] [place] [facility] [address] [id number] [place] [address] Nov, [facility] [place] [facility] [address] [id number] [place] [address] Nov, [facility] [place] [facility] [address] [id number] [place] [address] Nov, [facility] [place] [facility] [address] [id number] [place] [address] Oct, [facility] [place] [facility] [address] [id number] [place] [address] Oct, [facility] [place] [facility] [address] [id number] [place] [address] Oct, [facility] [place] [facility] [address] [id number] [place] [address] September, [facility] [place] [facility] [address] [id number] [place] [address] September, [facility] [place] [facility] [address] [id number] [place] [address] September, [facility] [address] [id number] [place] [address] September, [facility] [place] [facility] [address] [id number] [place] [address] September, [facility] [place] [facility] [address] [id number] [place] [address] September, [facility] [place] [facility] [address] [id number] [place] [address] Aug, [facility] [place] [facility] [address] [id number] [place] [address] Aug, [facility] [place] [facility] [address] [id number] [place] [address] Aug, [facility] [place] [facility] [address] [id number] [place] [address] Jun, [facility] [place] [facility] [address] [id number] [place] [address] Jun, [facility] [place] [facility] [address] [id number] [place] [address] Jun, [facility] [place] [facility] [address] [id number] [place] [address] Jun, [facility] [place] [facility] [address] [id number] [place] [address] May, [facility] [place] [facility] [address] [id number] [place] [address] May, [facility] [place] [facility] [address] [id number] [place] [address] May, [facility] [place] [facility] [address] [id number] [place] [address] May, [facility] [place] [facility] [address] [id number] [place] [address] May, [facility] [place] [facility] [address] [id number] [place] [address] Apr, [facility] [place] [facility] [address] [id number] [place] [address] Apr, [facility] [place] [facility] [address] [id number] [place] [address] Apr, [facility] [place] [facility] [address] [id number] [place] [address] Apr, [facility] [place] [facility] [address] [id number] [place] [address] Apr, [facility] [place] [facility] [address] [id number] [place] [address] Apr, [facility] [place] [facility] [address] [id number] [place] [address] Apr, [facility] [place] [facility] [address] [id number] [place] [address] Mar, [facility] [place] [facility] [address] [id number] [place] [address] Mar, [facility] [place] [facility] [address] [id number] [place] [address] Mar, [facility] [place] [facility] [address] [id number] [address] Feb, [facility] [place] [facility] [address] [id number], [place] [address] Feb, [facility] [place] [facility] [address] [id number] [place] [address] Feb, [facility] [place] [facility] [address] [id number] [place] [address] Feb, [facility] [place] [facility] [address] [id number] [place] [address] 18 Feb, 2011 [facility] [place] [facility] [address] [id number] [place] [address] 17 Feb, 2011 [facility] [address] [id number] [place] [address] 13 Jan, 2011 [facility] [place] [facility] [address] [id number] [place] [address] 12 Jan, 2011 [facility] [address] [id number] [place] [address] September, [facility] [place] [facility] [address] [id number] [place] [address] Jun, [facility] [address] [id number] [place] [address] Apr, [facility] [address] [id number] [place] [address] Apr, [facility] [address] [id number] [place] [address] Apr, [facility] [address] [id number] [place] [address] Apr, [facility] [address] [id number] [place] [address] Apr, [facility] [address] [id number] [place] [address] 30 Mar, 2010 [facility] [place] [facility] [address] [id number] [place] [address] 24 Mar, 2010 [facility] [address] [id number] [place] [address] 23 Mar, 2010 [facility] [place] [facility] [address] [id number] [place] [address] 05 Mar, 2010 [facility] [place] [facility] [address] [id number] [place] [address] 27 Feb, 2010 [facility] [place] [facility] [address] [id number] [place] [address] 15 Jan, 2010 [facility] [address] [facility] [id number] [place] [address] Mar, [facility] [address] [id number] [address] 15 Jan, 2009 [facility] [address] [facility] [id number] [address] Oct, [facility] [address] [facility] [id number] [address] Apr, IMMUNIZATIONS No Known Immunizations SOCIAL HISTORY Never Assessed REASON FOR VISIT EMR-[facility] PLAN OF CARE VITAL SIGNS MEDICATIONS No [...]
--- OUTSIDE RECORDS SUMMARY | 2018-09-28 03:53 | XMS REPORT ---
Author Author Migration, Doctor Organization [facility] Address Unknown Phone Unavailable Care Team Providers Care Rn Private Duty Name Role Phone Migration, Doctor Unavailable Unavailable PROBLEMS Type Condition ICD9-CM Code [id number] Code Onset Dates Condition Status SNOMED Code Problem Essential hypertension I10 Active 04909141 Problem Bilateral low back pain without sciatica M54.5 Active 120330955 Problem Anxiety F41.9 Active 27945340 Problem Dysuria R30.0 Active 52732439 Problem Irritable bowel syndrome without diarrhea K58.9 Active 06593364 Problem Rhinosinusitis J32.9 Active 605856164 Problem Hypertriglyceridemia E78.1 Active 962213687 Problem Pre-diabetes R73.03 Active 774546288 Problem Alternating constipation and diarrhea R19.8 Active 766159930 Problem Body mass index (BMI) of 40.0-44.9 in adult Z68.41 Active 687418132 Problem Morbid (severe) obesity due to excess calories E66.01 Active 746344847 ALLERGIES No Information ENCOUNTERS Encounter Location Date Diagnosis [place] [address] [address] Aug, Acute nonintractable headache, unspecified headache type R51 ; Acute non-recurrent maxillary sinusitis J01.00 and Pre-diabetes R73.03 [place] [address] [place] [id number] [place] [address] 16 Aug, 2018 Acute vaginitis N76.0 [facility] [address] [address] Aug, Rhinosinusitis J32.9 ; Bronchitis J40 ; Folliculitis L73.9 and Morbid obesity E66.01 [place] [address] [address] Jul, [facility] [address] [address] Jul, [facility] [id number] [place] [address] Jun, [facility] [id number] [place] [address] Jun, Acute vaginitis N76.0 ; Dermatitis L30.9 ; BMI 40.0-44.9, adult Z68.41 and Morbid obesity E66.[address] [facility] [address] [place] [id number] [place] [address] Jun, Vaginal discharge N89.8 ; Urinary tract infection without hematuria, site unspecified N39.0 and BMI 40.0-44.9, adult Z68.41 [place] [address] [place] [id number] [place] [address] May, [place] [address] [place] [id number] [place] [address] May, [place] [address] [place] [id number] [place] [address] Apr, Urinary tract infection, site not specified N39.0 [place] [address] [place] [id number] [place] [address] Apr, Dysuria R30.0 ; Urinary tract infection, site not specified N39.0 and Hematuria, unspecified R31.9 [place] [address] [place] [id number] [place] [address] Mar, [place] [address] [place] [id number] [place] [address] Mar, Left anterior knee pain M25.562 ; Abscess of buttock, left L02.31 and BMI 40.0-44.9, adult Z68.41 [facility] [id number] [place] [address] Mar, [facility] [address] [place] [id number] [place] [address] Feb, Abrasion of right ear canal, initial encounter S00.411A ; Left wrist pain M25.532 ; Right acute serous otitis media, recurrence not specified H65.01 and BMI 40.0-44.9, adult Z68.41 [facility] [address] [place] [id number] [place] [address] Jan, [place] [address] [address] Jan, [place] [address] [address] Jan, BMI 40.0-44.9, adult Z68.41 ; Pre-diabetes R73.03 ; Essential hypertension I10 ; Morbid (severe) obesity due to excess calories E66.01 ; Bilateral low back pain without sciatica M54.5 and Heartburn R12 [place] [address] [address] Jan, History of UTI Z87.440 ; Well woman exam with routine gynecological exam Z01.419 ; Screening for breast cancer Z12.31 ; Candidal vaginitis B37.3 and BMI 40.0-44.9, adult Z68.41 [place] [address] [place] [id number] [place] [address] Jan, [facility] [address] [place] [id number] [place] [address] Jan, Dysuria R30.0 ; Acute cystitis with hematuria N30.01 ; Yeast infection B37.9 and BMI 40.0-44.9, adult Z68.41 [place] [address] [address] Dec, [place] [address] [address] Dec, [place] [address] [address] Nov, History of UTI Z87.440 [facility] [id number] [place] [address] Nov, UTI symptoms R39.9 ; Acute nasopharyngitis J00 and BMI 40.0-44.9, adult Z68.41 [place] [id number] [place] [address] Nov, [facility] [address] [place] [id number] [place] [address] Nov, Yeast infection involving the vagina and surrounding area B37.3 [place] [address] [place] [id number] [place] [address] Nov, Yeast infection involving the vagina and surrounding area B37.3 [place] [address] [place] [id number] [place] [address] Nov, Yeast infection involving the vagina and surrounding area B37.3 ; Body mass index (BMI) of 40.0-44.9 in adult Z68.41 and Morbid (severe) obesity due to excess calories E66.01 [place] [id number] [place] [address] Oct, Abscess of groin, left L02.214 and Pre-diabetes R73.03 [place] [address] [address] September, Pre-diabetes R73.03 [place] [address] [place] [id number] [place] [address] Aug, [facility] [id number] [place] [address] Jul, Bilateral low back pain without sciatica M54.5 [facility] [address] [place] [id number] [place] [address] Jun, [place] [address] [place] [id number] [place] [address] Jun, [place] [id number] [place] [id number] [place] [address] Jun, [facility] [address] [address] May, [facility] [address] [place] [id number] [place] [address] May, Ingrown left greater toenail L60.0 [facility] [address] [address] May, [facility] [address] [address] May, Influenza A J10.1 ; Fever R50.9 and Body aches R52 [facility] [address] [address] Apr, [facility] [address] [address] Apr, [facility] [address] [address] Apr, [facility] [address] [address] Apr, Abscess L02.91 and Obesity (BMI 30-39.9) E66.9 [facility] [address] [address] Apr, [facility] [address] [place] [id number] [place] [address] Apr, [facility] [address] [address] Mar, Acute non-recurrent maxillary sinusitis J01.00 [facility] [address] [place] [id number] [place] [address] Feb, Heartburn R12 [facility] [address] [address] Feb, Heartburn R12 ; Low back pain M54.5 ; Essential hypertension I10 ; Bilateral low back pain without sciatica M54.5 ; Anxiety F41.9 ; Pre-diabetes R73.03 ; Other obesity due to excess calories E66.09 ; Alternating constipation and diarrhea R19.8 ; Dyspepsia R10.13 ; Generalized abdominal pain R10.84 ; Rhinosinusitis J32.9 and Boil L02.92 [place] [address] [address] Jan, Heartburn R12 [place] [address] [address] Jan, [place] [address] [address] Jan, [place] [address] [address] Jan, Acute seasonal allergic rhinitis due to pollen J30.1 and Irritable bowel syndrome without diarrhea K58.9 [place] [address] [address] Dec, Low back pain M54.5 and Acute cystitis with hematuria N30.01 [place] [address] [address] Dec, Low back pain M54.5 and Acute cystitis with hematuria N30.01 [place] [address] [address] Dec, Heartburn R12 ; Essential hypertension I10 ; Acute non-recurrent maxillary sinusitis J01.00 ; Bilateral low back pain without sciatica M54.5 ; Anxiety F41.9 ; Pre-diabetes R73.03 ; Pain in right foot M79.671 ; Pain in left foot M79.672 ; Other obesity due to excess calories E66.09 and Acute cystitis with hematuria N30.01 [place] [address] [address] Dec, Bilateral low back pain without sciatica M54.5 ; Acute non-recurrent maxillary sinusitis J01.00 and Pre-diabetes R73.03 [place] [address] [address] Oct, [facility] [place] [address] [address] Aug, [facility] [place] [address] [address] Aug, Acute vaginitis N76.0 ; Urinary frequency R35.0 ; Screen for STD (sexually transmitted disease) Z11.3 and Abscess L02.91 [place] [address] [address] Aug, Plantar wart of right foot B07.0 [place] [address] [address] Jul, Plantar wart of right foot B07.0 [place] [address] [address] Jun, [place] [address] [address] Jun, Heartburn R12 ; Essential hypertension I10 ; Anxiety F41.9 ; Folliculitis L73.9 and Plantar wart of right foot B07.0 [place] [address] [address] Jun, [facility] [place] [address] [address] May, Low back pain M54.5 and Other chronic pain G89.29 [place] [address] [address] May, [place] [address] [address] May, [place] [address] [place] [id number] [place] [address] May, Heartburn R12 ; Bilateral low back pain without sciatica M54.5 ; Essential hypertension I10 ; Long-term use of high-risk medication Z79.899 ; Anxiety F41.9 ; Impacted cerumen of right ear H61.21 ; Folliculitis L73.9 ; High risk bisexual behavior Z72.53 and General medical exam Z00.00 [place] [address] [address] May, [place] [address] [address] May, [place] [address] [address] Mar, Acute nasopharyngitis J00 ; Acute intractable tension-type headache G44.201 and Cough R05 [place] [address] [place] [id number] [place] [address] Jan, [facility] [address] [address] Jan, Abscess L02.91 [facility] [place] [address] [place] [id number] [place] [address] Jan, Urinary urgency R39.15 and Urinary tract infection without hematuria, site unspecified N39.0 [place] [address] [place] [id number] [place] [address] Jan, [place] [address] [place] [id number] [place] [address] Jan, [place] [address] [address] Dec, [place] [address] [place] [id number] [place] [address] Dec, Dermatofibroma D23.9 [place] [address] [place] [address] September, [facility] [address] [place] [id number] [place] [address] Aug, [facility] [address] [place] [id number] [place] [address] Aug, Pain in left knee M25.562 ; Heartburn R12 ; Bilateral low back pain without sciatica M54.5 ; Essential hypertension I10 ; Ingrown left big toenail L60.0 ; Chronic pain G89.29 ; Irritable bowel syndrome with constipation K58.9 and Skin infection L08.9 [facility] [address] [place] [id number] [place] [address] Aug, [facility] [address] [place] [id number] [place] [address] Jul, [facility] [address] [place] [id number] [place] [address] Jun, [facility] [id number] [place] [address] Jun, [facility] [address] [place] [id number] [place] [address] Jun, [facility] [id number] [place] [address] Jun, [facility] [id number] [place] [address] Jun, Upper respiratory infection J06.9 ; Bilateral low back pain without sciatica M54.5 and Headache R51 [facility] [address] [place] [id number] [place] [address] May, [facility] [id number] [place] [address] Apr, Bilateral low back pain without sciatica M54.5 ; Upper respiratory infection J06.9 and Yeast dermatitis B37.2 [facility] [address] [address] Apr, [facility] [address] [place] [id number] [place] [address] Apr, [facility] [id number] [place] [address] Feb, [facility] [address] [place] [id number] [place] [address] Feb, [facility] [address] [place] [id number] [place] [address] Feb, [facility] [address] [place] [id number] [place] [address] Feb, Essential hypertension I10 ; Heartburn R12 ; Irritable bowel syndrome without diarrhea K58.9 ; Bilateral low back pain, with sciatica presence unspecified M54.5 and Upper respiratory infection J06.9 [place] [address] [place] [id number] [place] [address] Feb, [facility] [address] [place] [id number] [place] [address] Feb, Generalized anxiety disorder F41.1 and Grief F43.20 [place] [id number] [place] [address] Jan, [facility] [id number] [place] [address] Jan, Back pain 724.5 ; Upper respiratory infection 465.9 ; HTN (hypertension) 401.9 and Dyspepsia 536.8 [place] [address] [place] [id number] [place] [address] Dec, [facility] [address] [place] [id number] [place] [address] Nov, Back pain 724.5 ; Abdominal pain, bilateral lower quadrant 789.03 ; GERD (gastroesophageal reflux disease) 530.81 ; Upper respiratory infection 465.9 ; Dysuria 788.1 and HTN (hypertension) 401.9 [facility] [address] [address] Nov, [facility] [address] [place] [id number] [place] [address] Nov, [facility] [address] [place] [id number] [place] [address] Nov, [facility] [address] [place] [id number] [place] [address] Nov, Cough 786.2 [facility] [address] [place] [id number] [place] [address] Nov, Cough 786.2 [facility] [address] [place] [id number] [place] [address] Oct, Unspecified episodic mood disorder 296.90 and Anxiety disorder, unspecified 300.00 [facility] [address] [place] [id number] [place] [address] Oct, Abdominal pain, left upper quadrant 789.02 ; Essential hypertension, benign 401.1 ; Irritable bowel syndrome 564.1 ; Abscess 682.9 ; Heartburn 787.1 ; Acute sinusitis, unspecified 461.9 ; Muscle spasm of back 724.8 ; Cough 786.2 and Skin tag 701.9 [facility] [id number] [place] [address] September, [facility] [id number] [place] [address] September, [facility] [address] [place] [id number] [place] [address] September, [facility] [address] [place] [id number] [place] [address] Aug, [facility] [id number] [place] [address] Aug, [facility] [place] [facility] [address] [id number] [place] [address] 30 Jul, 2014 [facility] [place] [facility] [address] [id number] [place] [address] 30 Jul, 2014 [facility] [place] [facility] [address] [id number] [place] [address] Jul, [facility] [place] [facility] [address] [id number] [place] [address] Jul, [facility] [place] [facility] [address] [id number] [place] [address] Jul, [facility] [place] [facility] [address] [id number] [place] [address] Jul, [facility] [place] [facility] [address] [id number] [place] [address] Jul, [facility] [place] [facility] [address] [id number] [place] [address] Jul, [facility] [place] [facility] [address] [id number] [place] [address] Jul, [facility] [place] [facility] [address] [id number] [place] [address] Jul, [facility] [place] [facility] [address] [id number] [place] [address] Jul, [facility] [place] [facility] [address] [id number] [place] [address] Jul, [facility] [place] [facility] [address] [id number] [place] [address] Jul, [facility] [place] [facility] [address] [id number] [place] [address] Jul, [facility] [place] [facility] [address] [id number] [place] [address] Jul, [facility] [place] [facility] [address] [id number] [place] [address] Jul, 2014 [facility] [place] [facility] [address] [facility] [id number] [place] [address] Jul, 2014 [facility] [place] [facility] [address] [facility] [id number] [place] [address] Jun, 2014 [facility] [place] [facility] [address] [facility] [id number] [place] [address] Jun, 2014 [facility] [place] [facility] [address] [facility] [id number] [place] [address] Jun, 2014 [facility] [place] [facility] [address] [facility] [id number] [place] [address] Jun, 2014 [facility] [place] [facility] [address] [facility] [id number] [place] [address] Jun, 2014 [facility] [place] [facility] [address] [facility] [id number] [place] [address] Jun, 2014 [facility] [place] [facility] [address] [facility] [id number] [place] [address] Jun, 2014 [facility] [place] [facility] [address] [facility] [id number] [place] [address] Jun, 2014 [facility] [place] [facility] [address] [facility] [id number] [place] [address] Apr, [facility] [place] [facility] [address] [facility] [id number] [place] [address] Apr, [facility] [place] [facility] [address] [facility] [id number] [place] [address] Apr, [facility] [place] [facility] [address] [facility] [id number] [place] [address] Apr, [facility] [place] [facility] [address] [facility] [id number] [place] [address] Apr, [facility] [place] [facility] [address] [facility] [id number] [place] [address] Apr, [facility] [place] [facility] [address] [id number] [place] [address] 15 Apr, 2014 [facility] [place] [facility] [address] [id number] [place] [address] Apr, [facility] [place] [facility] [address] [id number] [place] [address] Apr, [facility] [place] [facility] [address] [id number] [place] [address] Apr, [facility] [place] [facility] [address] [id number] [place] [address] Apr, [facility] [place] [facility] [address] [id number] [place] [address] Apr, [facility] [place] [facility] [address] [id number] [place] [address] Apr, [facility] [place] [facility] [address] [id number] [place] [address] Apr, [facility] [place] [facility] [address] [id number] [place] [address] Apr, [facility] [place] [facility] [address] [id number] [place] [address] Feb, [facility] [place] [facility] [address] [id number] [place] [address] Feb, [facility] [place] [facility] [address] [id number] [place] [address] Feb, [facility] [place] [facility] [address] [id number] [place] [address] Feb, [facility] [place] [facility] [address] [id number] [place] [address] Feb, [facility] [place] [facility] [address] [id number] [place] [address] Feb, [facility] [place] [facility] [address] [id number] [place] [address] Jan, [facility] [place] [facility] [address] [id number] [place] [address] Jan, 2013 [facility] [place] [facility] [address] [id number] [place] [address] Jan, [facility] [place] [facility] [address] [id number] [place] [address] Jan, 2013 [facility] [place] [facility] [address] [id number] [place] [address] Jan, [facility] [place] [facility] [address] [id number] [place] [address] Jan, [facility] [place] [facility] [address] [id number] [place] [address] Dec, [facility] [place] [facility] [address] [id number] [place] [address] Dec, [facility] [place] [facility] [address] [id number] [place] [address] Dec, [facility] [place] [facility] [address] [id number] [place] [address] Dec, [facility] [place] [facility] [address] [id number] [place] [address] Nov, [facility] [place] [facility] [address] [id number] [place] [address] Nov, [facility] [place] [facility] [address] [id number] [place] [address] Nov, [facility] [place] [facility] [address] [id number] [place] [address] Nov, [facility] [place] [facility] [address] [id number] [place] [address] Nov, [facility] [place] [facility] [address] [id number] [place] [address] Nov, [facility] [place] [facility] [address] [id number] [place] [address] 15 Nov, 2013 [facility] [place] [facility] [address] [id number] [place] [address] 15 Nov, 2013 [facility] [place] [facility] [address] [id number] [place] [address] Oct, [facility] [place] [facility] [address] [id number] [place] [address] Oct, [facility] [place] [facility] [address] [id number] [place] [address] Oct, [facility] [place] [facility] [address] [id number] [place] [address] Oct, [facility] [place] [facility] [address] [id number] [place] [address] Oct, [facility] [place] [facility] [address] [id number] [place] [address] Oct, [facility] [place] [facility] [address] [id number] [place] [address] Oct, [facility] [place] [facility] [address] [id number] [place] [address] Oct, [facility] [place] [facility] [address] [facility] [id number] [place] [address] Oct, [facility] [place] [facility] [address] [id number] [place] [address] Oct, [facility] [place] [facility] [address] [id number] [place] [address] Oct, [facility] [place] [facility] [address] [id number] [place] [address] Oct, [facility] [place] [facility] [address] [id number] [place] [address] Oct, [facility] [place] [facility] [address] [id number] [place] [address] Oct, [facility] [place] [facility] [address] [id number] [place] [address] 17 Oct, 2013 [facility] [place] [facility] [address] [id number] [place] [address] 17 Oct, 2013 [facility] [place] [facility] [address] [id number] [place] [address] 16 Oct, 2013 [facility] [place] [facility] [address] [id number] [place] [address] Oct, [facility] [place] [facility] [address] [id number] [place] [address] Oct, [facility] [place] [facility] [address] [id number] [place] [address] Oct, [facility] [place] [facility] [address] [id number] [place] [address] Oct, [facility] [place] [facility] [address] [id number] [place] [address] Oct, [facility] [place] [facility] [address] [id number] [place] [address] Oct, [facility] [place] [facility] [address] [id number] [place] [address] Oct, [facility] [place] [facility] [address] [id number] [place] [address] Oct, [facility] [place] [facility] [address] [id number] [place] [address] Oct, [facility] [place] [facility] [address] [id number] [place] [address] Oct, [facility] [place] [facility] [address] [id number] [place] [address] Oct, [facility] [place] [facility] [address] [id number] [place] [address] Oct, [facility] [place] [facility] [address] [id number] [place] [address] Oct, [facility] [place] [facility] [address] [id number] [place] [address] September, [facility] [place] [facility] [address] [id number] [place] [address] September, [facility] [place] [facility] [address] [id number] [place] [address] September, [facility] [place] [facility] [address] [id number] [place] [address] September, [facility] [place] [facility] [address] [id number] [place] [address] September, [facility] [place] [facility] [address] [id number] [place] [address] September, [facility] [place] [facility] [address] [id number] [place] [address] September, [facility] [place] [facility] [address] [id number] [place] [address] September, [facility] [place] [facility] [address] [id number] [place] [address] September, [facility] [place] [facility] [address] [id number] [place] [address] September, [facility] [place] [facility] [address] [id number] [place] [address] September, [facility] [place] [facility] [address] [id number] [place] [address] September, [facility] [place] [facility] [address] [id number] [place] [address] September, [facility] [place] [facility] [address] [id number] [place] [address] September, [facility] [place] [facility] [address] [id number] [place] [address] September, [facility] [place] [facility] [address] [id number] [place] [address] September, [facility] [address] [id number] [place] [address] September, [facility] [place] [facility] [address] [id number] [place] [address] September, [facility] [address] [id number] [place] [address] Aug, [facility] [place] [facility] [address] [id number] [place] [address] Aug, [facility] [place] [facility] [address] [id number] [place] [address] Aug, [facility] [place] [facility] [address] [id number] [place] [address] Aug, [facility] [place] [facility] [address] [id number] [place] [address] Aug, [facility] [address] [id number] [place] [address] Aug, [facility] [place] [facility] [address] [id number] [place] [address] Jul, [facility] [address] [id number] [place] [address] Jul, [facility] [place] [facility] [address] [id number] [place] [address] Jul, [facility] [place] [facility] [address] [id number] [place] [address] Jul, [facility] [place] [facility] [address] [id number] [place] [address] Jun, [facility] [place] [facility] [address] [id number] [place] [address] Jun, [facility] [place] [facility] [address] [id number] [place] [address] Jun, [facility] [place] [facility] [address] [id number] [place] [address] Jun, [facility] [place] [facility] [address] [id number] [place] [address] Mar, [facility] [place] [facility] [address] [id number] [place] [address] Mar, [facility] [place] [facility] [address] [id number] [place] [address] Mar, [facility] [place] [facility] [address] [id number] [place] [address] Mar, [facility] [place] [facility] [address] [id number] [place] [address] Feb, [facility] [place] [facility] [address] [id number] [place] [address] Feb, [facility] [place] [facility] [address] [id number] [place] [address] Feb, [facility] [place] [facility] [address] [id number] [place] [address] Jan, [facility] [place] [facility] [address] [id number] [place] [address] 20 Jan, 2013 [facility] [place] [facility] [address] [id number] [address] 12 Jan, 2013 [facility] [place] [facility] [address] [id number], [place] [address] 05 Jan, 2013 [facility] [place] [facility] [address] [id number] [place] [address] Dec, [facility] [place] [facility] [address] [id number], [place] [address] 15 Dec, 2012 [facility] [place] [facility] [address] [id number] [place] [address] Dec, [facility] [place] [facility] [address] [id number] [place] [address] Dec, [facility] [place] [facility] [address] [id number] [place] [address] Nov, [facility] [place] [facility] [address] [id number] [place] [address] Nov, [facility] [place] [facility] [address] [id number] [place] [address] Nov, [facility] [place] [facility] [address] [id number] [place] [address] Nov, [facility] [place] [facility] [address] [id number] [place] [address] Nov, [facility] [place] [facility] [address] [id number] [place] [address] Nov, [facility] [place] [facility] [address] [id number] [place] [address] Oct, [facility] [place] [facility] [address] [id number] [place] [address] Oct, [facility] [place] [facility] [address] [id number] [place] [address] Oct, [facility] [place] [facility] [address] [id number] [place] [address] Oct, [facility] [place] [facility] [address] [id number] [place] [address] 17 Oct, 2012 [facility] [place] [facility] [address] [id number] [place] [address] 16 Oct, 2012 [facility] [place] [facility] [address] [id number] [place] [address] 14 Oct, 2012 [facility] [place] [facility] [address] [id number] [place] [address] 13 Oct, 2012 [facility] [place] [facility] [address] [id number] [place] [address] Oct, [facility] [place] [facility] [address] [id number] [place] [address] Oct, [facility] [address] [id number] [place] [address] September, [facility] [address] [id number] [place] [address] September, [facility] [address] [id number] [place] [address] September, [facility] [address] [id number] [place] [address] Aug, [facility] [address] [id number] [place] [address] Aug, [facility] [address] [id number] [place] [address] Aug, [facility] [address] [id number] [place] [address] Aug, [facility] [address] [id number] [place] [address] Jul, [facility] [address] [id number] [place] [address] Jul, [facility] [address] [id number] [place] [address] Jul, [facility] [address] [id number] [place] [address] Jul, [facility] [address] [id number] [place] [address] Jul, [facility] [place] [facility] [address] [id number] [place] [address] Jul, [facility] [address] [id number] [place] [address] May, [facility] [address] [id number] [place] [address] 29 May, 2012 [facility] [address] [id number] [place] [address] May, [facility] [place] [facility] [address] [id number] [place] [address] May, [facility] [address] [id number] [place] [address] May, [facility] [place] [facility] [address] [id number] [place] [address] May, [facility] [address] [id number] [place] [address] May, [facility] [address] [id number] [place] [address] May, [facility] [address] [id number] [place] [address] 17 May, 2012 [facility] [place] [facility] [address] [id number] [place] [address] 17 May, 2012 [facility] [address] [id number] [place] [address] 16 May, 2012 [facility] [address] [id number] [place] [address] Apr, [facility] [address] [id number] [place] [address] Apr, [facility] [place] [facility] [address] [id number] [place] [address] Apr, [facility] [place] [facility] [address] [id number] [place] [address] Apr, [facility] [place] [facility] [address] [id number] [place] [address] Apr, [facility] [place] [facility] [address] [id number] [place] [address] Apr, [facility] [place] [facility] [address] [id number] [place] [address] Mar, [facility] [place] [facility] [address] [id number] [place] [address] Mar, [facility] [place] [facility] [address] [id number] [place] [address] Mar, [facility] [place] [facility] [address] [id number] [place] [address] Mar, [facility] [place] [facility] [address] [id number] [place] [address] Mar, [facility] [place] [facility] [address] [id number] [place] [address] Mar, [facility] [place] [facility] [address] [id number] [place] [address] Mar, [facility] [place] [facility] [address] [id number] [place] [address] Mar, [facility] [place] [facility] [address] [id number] [place] [address] Feb, [facility] [place] [facility] [address] [id number] [place] [address] Feb, [facility] [place] [facility] [address] [id number] [place] [address] 16 Feb, 2012 [facility] [place] [facility] [address] [id number] [place] [address] 15 Feb, 2012 [facility] [place] [facility] [address] [id number] [place] [address] 15 Feb, 2012 [facility] [place] [facility] [address] [id number] [place] [address] 13 Feb, 2012 [facility] [place] [facility] [address] [id number] [place] [address] Feb, [facility] [place] [facility] [address] [id number] [place] [address] Feb, [facility] [place] [facility] [address] [id number] [place] [address] Feb, [facility] [place] [facility] [address] [id number] [place] [address] Feb, [facility] [place] [facility] [address] [id number] [place] [address] Feb, [facility] [place] [facility] [address] [id number] [place] [address] Feb, [facility] [place] [facility] [address] [id number] [place] [address] Feb, [facility] [place] [facility] [address] [id number] [place] [address] Feb, [facility] [place] [facility] [address] [id number] [place] [address] Feb, [facility] [place] [facility] [address] [id number], [place] [address] Feb, [facility] [place] [facility] [address] [id number] [place] [address] Feb, [facility] [place] [facility] [address] [id number], [place] [address] Feb, [facility] [place] [facility] [address] [id number], [place] [address] 19 Jan, 2012 [facility] [place] [facility] [address] [id number], [place] [address] 13 Sep2011 [facility] [place] [facility] [address] [id number], [place] [address] 11 Sep2011 [facility] [place] [facility] [address] [id number], [place] [address] 10 Sep2011 [facility] [place] [facility] [address] [id number], [place] [address] 05 Sep2011 [facility] [place] [facility] [address] [id number], [place] [address] Dec, [facility] [place] [facility] [address] [id number] [place] [address] Dec, [facility] [place] [facility] [address] [id number] [place] [address] Dec, [facility] [place] [facility] [address] [id number] [place] [address] Dec, [facility] [place] [facility] [address] [id number] [place] [address] Dec, [facility] [place] [facility] [address] [id number] [place] [address] Dec, [facility] [place] [facility] [address] [id number] [place] [address] Nov, [facility] [place] [facility] [address] [id number] [place] [address] Nov, [facility] [place] [facility] [address] [id number] [place] [address] Nov, [facility] [place] [facility] [address] [id number] [place] [address] Nov, [facility] [place] [facility] [address] [id number] [place] [address] Nov, [facility] [place] [facility] [address] [id number] [place] [address] Oct, [facility] [place] [facility] [address] [id number] [place] [address] Oct, [facility] [place] [facility] [address] [id number] [place] [address] Oct, [facility] [place] [facility] [address] [id number] [place] [address] September, [facility] [place] [facility] [address] [id number] [place] [address] September, [facility] [place] [facility] [address] [id number] [place] [address] September, [facility] [address] [id number] [place] [address] September, [facility] [place] [facility] [address] [id number] [place] [address] September, [facility] [place] [facility] [address] [id number] [place] [address] September, [facility] [place] [facility] [address] [id number] [place] [address] Aug, [facility] [place] [facility] [address] [id number] [place] [address] Aug, [facility] [place] [facility] [address] [id number] [place] [address] Aug, [facility] [place] [facility] [address] [id number] [place] [address] Jun, [facility] [place] [facility] [address] [id number] [place] [address] Jun, [facility] [place] [facility] [address] [id number] [place] [address] Jun, [facility] [place] [facility] [address] [id number] [place] [address] Jun, [facility] [place] [facility] [address] [id number] [place] [address] May, [facility] [place] [facility] [address] [id number] [place] [address] May, [facility] [place] [facility] [address] [id number] [place] [address] May, [facility] [place] [facility] [address] [id number] [place] [address] May, [facility] [place] [facility] [address] [id number] [place] [address] May, [facility] [place] [facility] [address] [id number] [place] [address] Apr, [facility] [place] [facility] [address] [id number] [place] [address] Apr, [facility] [place] [facility] [address] [id number] [place] [address] Apr, [facility] [place] [facility] [address] [id number] [place] [address] Apr, [facility] [place] [facility] [address] [id number] [place] [address] Apr, [facility] [place] [facility] [address] [id number] [place] [address] Apr, [facility] [place] [facility] [address] [id number] [place] [address] Apr, [facility] [place] [facility] [address] [id number] [place] [address] Mar, [facility] [place] [facility] [address] [id number] [place] [address] Mar, [facility] [place] [facility] [address] [id number] [place] [address] Mar, [facility] [place] [facility] [address] [id number], [place] [address] Feb, [facility] [place] [facility] [address] [id number], [place] [address] Feb, [facility] [place] [facility] [address] [id number] [place] [address] Feb, [facility] [place] [facility] [address] [id number] [place] [address] Feb, [facility] [place] [facility] [address] [id number] [place] [address] 18 Feb, 2011 [facility] [place] [facility] [address] [id number] [place] [address] 17 Feb, 2011 [facility] [address] [id number] [place] [address] 13 Jan, 2011 [facility] [place] [facility] [address] [id number] [place] [address] 12 Jan, 2011 [facility] [address] [id number] [place] [address] September, [facility] [place] [facility] [address] [id number] [place] [address] Jun, [facility] [address] [id number] [place] [address] Apr, [facility] [address] [id number] [place] [address] Apr, [facility] [address] [id number] [place] [address] Apr, [facility] [address] [id number] [place] [address] Apr, [facility] [address] [id number] [place] [address] Apr, [facility] [address] [id number] [place] [address] 30 Mar, 2010 [facility] [place] [facility] [address] [id number] [place] [address] 24 Mar, 2010 [facility] [address] [id number] [place] [address] 23 Mar, 2010 [facility] [place] [facility] [address] [id number] [place] [address] 05 Mar, 2010 [facility] [place] [facility] [address] [id number] [place] [address] 27 Feb, 2010 [facility] [place] [facility] [address] [id number] [place] [address] 15 Jan, 2010 [facility] [address] [facility] [id number] [place] [address] Mar, [facility] [address] [id number] [address] 15 Jan, 2009 [facility] [address] [facility] [id number], [place] [address] Oct, [facility] [address] [facility] [id number], [place] [address] Apr, IMMUNIZATIONS No Known Immunizations SOCIAL HISTORY Never Assessed REASON FOR VISIT [place] [place] CARE VITAL SIGNS MEDICATIONS No [...]
--- OUTSIDE RECORDS SUMMARY | 2018-09-28 03:54 | XMS REPORT ---
Author Author Migration, Doctor Organization [facility] Address Unknown Phone Unavailable Care Team Providers Care Hot Car Operator Name Role Phone Migration, Doctor Unavailable Unavailable PROBLEMS Type Condition ICD9-CM Code PRS28-ZE Code Onset Dates Condition Status SNOMED Code Problem Essential hypertension I10 Active 94396696 Problem Bilateral low back pain without sciatica M54.5 Active 719787537 Problem Anxiety F41.9 Active 97230294 Problem Dysuria R30.0 Active 09893520 Problem Irritable bowel syndrome without diarrhea K58.9 Active 81297364 Problem Rhinosinusitis J32.9 Active 583094439 Problem Hypertriglyceridemia E78.1 Active 538046558 Problem Pre-diabetes R73.03 Active 280115239 Problem Alternating constipation and diarrhea R19.8 Active 959221582 Problem Body mass index (BMI) of 40.0-44.9 in adult Z68.41 Active 230413103 Problem Morbid (severe) obesity due to excess calories E66.01 Active 627683136 ALLERGIES No Information ENCOUNTERS Encounter Location Date Diagnosis [place] [address] [address] Aug, Acute nonintractable headache, unspecified headache type R51 ; Acute non-recurrent maxillary sinusitis J01.00 and Pre-diabetes R73.03 [place] [address] [place] [id number] [place] [address] 16 Aug, 2018 Acute vaginitis N76.0 [facility] [address] [address] Aug, Rhinosinusitis J32.9 ; Bronchitis J40 ; Folliculitis L73.9 and Morbid obesity E66.01 [place] [address] [address] Jul, [facility] [address] [address] Jul, [facility] [id number] [place] [address] Jun, [facility] [id number] [place] [address] Jun, Acute vaginitis N76.0 ; Dermatitis L30.9 ; BMI 40.0-44.9, adult Z68.41 and Morbid obesity E66.01 [facility] [address] [place] [id number] [place] [address] Jun, Vaginal discharge N89.8 ; Urinary tract infection without hematuria, site unspecified N39.0 and BMI 40.0-44.9, adult Z68.41 [place] [address] [place] [id number] [place] [address] May, [place] [address] [place] [id number] [place] [address] May, [place] [address] [place] [id number] [place] [address] Apr, Urinary tract infection, site not specified N39.0 [place] [address] [place] [id number] [place] [address] Apr, Dysuria R30.0 ; Urinary tract infection, site not specified N39.0 and Hematuria, unspecified R31.9 [place] [address] [place] [id number] [place] [address] Mar, [place] [address] [place] [id number] [place] [address] Mar, Left anterior knee pain M25.562 ; Abscess of buttock, left L02.31 and BMI 40.0-44.9, adult Z68.41 [facility] [id number] [place] [address] Mar, [facility] [address] [place] [id number] [place] [address] Feb, Abrasion of right ear canal, initial encounter S00.411A ; Left wrist pain M25.532 ; Right acute serous otitis media, recurrence not specified H65.01 and BMI 40.0-44.9, adult Z68.41 [facility] [address] [place] [id number] [place] [address] Jan, [place] [address] [address] Jan, [place] [address] [address] Jan, BMI 40.0-44.9, adult Z68.41 ; Pre-diabetes R73.03 ; Essential hypertension I10 ; Morbid (severe) obesity due to excess calories E66.01 ; Bilateral low back pain without sciatica M54.5 and Heartburn R12 [place] [address] [address] Jan, History of UTI Z87.440 ; Well woman exam with routine gynecological exam Z01.419 ; Screening for breast cancer Z12.31 ; Candidal vaginitis B37.3 and BMI 40.0-44.9, adult Z68.41 [place] [address] [place] [id number] [place] [address] Jan, [facility] [address] [place] [id number] [place] [address] Jan, Dysuria R30.0 ; Acute cystitis with hematuria N30.01 ; Yeast infection B37.9 and BMI 40.0-44.9, adult Z68.41 [place] [address] [address] Dec, [place] [address] [address] Dec, [place] [address] [address] Nov, History of UTI Z87.440 [facility] [id number] [place] [address] Nov, UTI symptoms R39.9 ; Acute nasopharyngitis J00 and BMI 40.0-44.9, adult Z68.41 [place] [id number] [place] [address] Nov, [facility] [address] [place] [id number] [place] [address] Nov, Yeast infection involving the vagina and surrounding area B37.3 [place] [address] [place] [id number] [place] [address] Nov, Yeast infection involving the vagina and surrounding area B37.3 [place] [address] [place] [id number] [place] [address] Nov, Yeast infection involving the vagina and surrounding area B37.3 ; Body mass index (BMI) of 40.0-44.9 in adult Z68.41 and Morbid (severe) obesity due to excess calories E66.01 [place] [address] [place] [address] Oct, Abscess of groin, left L02.214 and Pre-diabetes R73.03 [place] [address] [address] September, Pre-diabetes R73.03 [place] [address] [place] [id number] [place] [address] Aug, [facility] [address] [place] [address] Jul, Bilateral low back pain without sciatica M54.5 [facility] [address] [place] [id number] [place] [address] Jun, [place] [address] [place] [id number] [place] [address] Jun, [place] [id number] [place] [id number] [place] [address] Jun, [facility] [address] [address] May, [facility] [address] [place] [id number] [place] [address] May, Ingrown left greater toenail L60.0 [facility] [address] [address] May, [facility] [address] [address] May, Influenza A J10.1 ; Fever R50.9 and Body aches R52 [facility] [address] [address] Apr, [facility] [address] [address] Apr, [facility] [address] [address] Apr, [facility] [address] [address] Apr, Abscess L02.91 and Obesity (BMI 30-39.9) E66.9 [facility] [address] [address] Apr, [facility] [address] [place] [id number] [place] [address] Apr, [facility] [address] [address] Mar, Acute non-recurrent maxillary sinusitis J01.00 [facility] [address] [place] [id number] [place] [address] Feb, Heartburn R12 [facility] [address] [address] Feb, Heartburn R12 ; Low back pain M54.5 ; Essential hypertension I10 ; Bilateral low back pain without sciatica M54.5 ; Anxiety F41.9 ; Pre-diabetes R73.03 ; Other obesity due to excess calories E66.09 ; Alternating constipation and diarrhea R19.8 ; Dyspepsia R10.13 ; Generalized abdominal pain R10.84 ; Rhinosinusitis J32.9 and Boil L02.92 [place] [address] [address] Jan, Heartburn R12 [place] [address] [address] Jan, [place] [address] [address] Jan, [place] [address] [address] Jan, Acute seasonal allergic rhinitis due to pollen J30.1 and Irritable bowel syndrome without diarrhea K58.9 [place] [address] [address] Dec, Low back pain M54.5 and Acute cystitis with hematuria N30.01 [place] [address] [address] Dec, Low back pain M54.5 and Acute cystitis with hematuria N30.01 [place] [address] [address] Dec, Heartburn R12 ; Essential hypertension I10 ; Acute non-recurrent maxillary sinusitis J01.00 ; Bilateral low back pain without sciatica M54.5 ; Anxiety F41.9 ; Pre-diabetes R73.03 ; Pain in right foot M79.671 ; Pain in left foot M79.672 ; Other obesity due to excess calories E66.09 and Acute cystitis with hematuria N30.01 [place] [address] [address] Dec, Bilateral low back pain without sciatica M54.5 ; Acute non-recurrent maxillary sinusitis J01.00 and Pre-diabetes R73.03 [place] [address] [address] Oct, [facility] [place] [address] [address] Aug, [facility] [place] [address] [address] Aug, Acute vaginitis N76.0 ; Urinary frequency R35.0 ; Screen for STD (sexually transmitted disease) Z11.3 and Abscess L02.91 [place] [address] [address] Aug, Plantar wart of right foot B07.0 [place] [address] [address] Jul, Plantar wart of right foot B07.0 [place] [address] [address] Jun, [place] [address] [address] Jun, Heartburn R12 ; Essential hypertension I10 ; Anxiety F41.9 ; Folliculitis L73.9 and Plantar wart of right foot B07.0 [place] [address] [address] Jun, [facility] [place] [address] [address] May, Low back pain M54.5 and Other chronic pain G89.29 [place] [address] [address] May, [place] [address] [address] May, [place] [address] [place] [id number] [place] [address] May, Heartburn R12 ; Bilateral low back pain without sciatica M54.5 ; Essential hypertension I10 ; Long-term use of high-risk medication Z79.899 ; Anxiety F41.9 ; Impacted cerumen of right ear H61.21 ; Folliculitis L73.9 ; High risk bisexual behavior Z72.53 and General medical exam Z00.00 [place] [address] [address] May, [place] [address] [address] May, [place] [address] [address] Mar, Acute nasopharyngitis J00 ; Acute intractable tension-type headache G44.201 and Cough R05 [place] [address] [place] [id number] [place] [address] Jan, [facility] [address] [address] Jan, Abscess L02.91 [facility] [place] [address] [place] [id number] [place] [address] Jan, Urinary urgency R39.15 and Urinary tract infection without hematuria, site unspecified N39.0 [place] [address] [place] [id number] [place] [address] Jan, [place] [address] [place] [id number] [place] [address] Jan, [place] [address] [address] Dec, [place] [address] [place] [id number] [place] [address] Dec, Dermatofibroma D23.9 [place] [address] [place] [address] September, [facility] [address] [place] [id number] [place] [address] Aug, [facility] [address] [place] [id number] [place] [address] Aug, Pain in left knee M25.562 ; Heartburn R12 ; Bilateral low back pain without sciatica M54.5 ; Essential hypertension I10 ; Ingrown left big toenail L60.0 ; Chronic pain G89.29 ; Irritable bowel syndrome with constipation K58.9 and Skin infection L08.9 [facility] [address] [place] [id number] [place] [address] Aug, [facility] [address] [place] [id number] [place] [address] Jul, [facility] [address] [place] [id number] [place] [address] Jun, [facility] [address] [place] [address] Jun, [facility] [address] [place] [id number] [place] [address] Jun, [facility] [address] [place] [address] Jun, [facility] [address] [place] [address] Jun, Upper respiratory infection J06.9 ; Bilateral low back pain without sciatica M54.5 and Headache R51 [facility] [address] [place] [id number] [place] [address] May, [facility] [id number] [place] [address] Apr, Bilateral low back pain without sciatica M54.5 ; Upper respiratory infection J06.9 and Yeast dermatitis B37.2 [facility] [address] [address] Apr, [facility] [address] [place] [id number] [place] [address] Apr, [facility] [address] [place] [address] Feb, [facility] [address] [place] [id number] [place] [address] Feb, [facility] [address] [place] [id number] [place] [address] Feb, [facility] [address] [place] [id number] [place] [address] Feb, Essential hypertension I10 ; Heartburn R12 ; Irritable bowel syndrome without diarrhea K58.9 ; Bilateral low back pain, with sciatica presence unspecified M54.5 and Upper respiratory infection J06.9 [place] [address] [place] [id number] [place] [address] Feb, [facility] [address] [place] [id number] [place] [address] Feb, Generalized anxiety disorder F41.1 and Grief F43.20 [place] [address] [place] [address] Jan, [facility] [address] [place] [address] Jan, Back pain 724.5 ; Upper respiratory infection 465.9 ; HTN (hypertension) 401.9 and Dyspepsia 536.8 [place] [address] [place] [id number] [place] [address] Dec, [facility] [address] [place] [id number] [place] [address] Nov, Back pain 724.5 ; Abdominal pain, bilateral lower quadrant 789.03 ; GERD (gastroesophageal reflux disease) 530.81 ; Upper respiratory infection 465.9 ; Dysuria 788.1 and HTN (hypertension) 401.9 [facility] [address] [address] Nov, [facility] [address] [place] [id number] [place] [address] Nov, [facility] [address] [place] [id number] [place] [address] Nov, [facility] [address] [place] [id number] [place] [address] Nov, Cough 786.2 [facility] [address] [place] [id number] [place] [address] Nov, Cough 786.2 [facility] [address] [place] [id number] [place] [address] Oct, Unspecified episodic mood disorder 296.90 and Anxiety disorder, unspecified 300.00 [facility] [address] [place] [id number] [place] [address] Oct, Abdominal pain, left upper quadrant 789.02 ; Essential hypertension, benign 401.1 ; Irritable bowel syndrome 564.1 ; Abscess 682.9 ; Heartburn 787.1 ; Acute sinusitis, unspecified 461.9 ; Muscle spasm of back 724.8 ; Cough 786.2 and Skin tag 701.9 [facility] [address] [place] [address] September, [facility] [address] [place] [address] September, [facility] [address] [place] [id number] [place] [address] September, [facility] [address] [place] [id number] [place] [address] Aug, [facility] [address] [place] [address] Aug, [facility] [place] [facility] [address] [id number] [place] [address] 30 Jul, 2014 [facility] [place] [facility] [address] [id number] [place] [address] 30 Jul, 2014 [facility] [place] [facility] [address] [id number] [place] [address] Jul, [facility] [place] [facility] [address] [id number] [place] [address] Jul, [facility] [place] [facility] [address] [id number] [place] [address] Jul, [facility] [place] [facility] [address] [id number] [place] [address] Jul, [facility] [place] [facility] [address] [id number] [place] [address] Jul, [facility] [place] [facility] [address] [id number] [place] [address] Jul, [facility] [place] [facility] [address] [id number] [place] [address] Jul, [facility] [place] [facility] [address] [id number] [place] [address] Jul, [facility] [place] [facility] [address] [id number] [place] [address] Jul, [facility] [place] [facility] [address] [id number] [place] [address] Jul, [facility] [place] [facility] [address] [id number] [place] [address] Jul, [facility] [place] [facility] [address] [id number] [place] [address] Jul, [facility] [place] [facility] [address] [id number] [place] [address] Jul, [facility] [place] [facility] [address] [id number] [place] [address] Jul, 2014 [facility] [place] [facility] [address] [facility] [id number] [place] [address] Jul, 2014 [facility] [place] [facility] [address] [facility] [id number] [place] [address] Jun, 2014 [facility] [place] [facility] [address] [facility] [id number] [place] [address] Jun, 2014 [facility] [place] [facility] [address] [facility] [id number] [place] [address] Jun, 2014 [facility] [place] [facility] [address] [facility] [id number] [place] [address] Jun, 2014 [facility] [place] [facility] [address] [facility] [id number] [place] [address] Jun, 2014 [facility] [place] [facility] [address] [facility] [id number] [place] [address] Jun, 2014 [facility] [place] [facility] [address] [facility] [id number] [place] [address] Jun, 2014 [facility] [place] [facility] [address] [facility] [id number] [place] [address] Jun, 2014 [facility] [place] [facility] [address] [facility] [id number] [place] [address] Apr, [facility] [place] [facility] [address] [facility] [id number] [place] [address] Apr, [facility] [place] [facility] [address] [facility] [id number] [place] [address] Apr, [facility] [place] [facility] [address] [facility] [id number] [place] [address] Apr, [facility] [place] [facility] [address] [facility] [id number] [place] [address] Apr, [facility] [place] [facility] [address] [facility] [id number] [place] [address] Apr, [facility] [place] [facility] [address] [id number] [place] [address] 15 Apr, 2014 [facility] [place] [facility] [address] [id number] [place] [address] Apr, [facility] [place] [facility] [address] [id number] [place] [address] Apr, [facility] [place] [facility] [address] [id number] [place] [address] Apr, [facility] [place] [facility] [address] [id number] [place] [address] Apr, [facility] [place] [facility] [address] [id number] [place] [address] Apr, [facility] [place] [facility] [address] [id number] [place] [address] Apr, [facility] [place] [facility] [address] [id number] [place] [address] Apr, [facility] [place] [facility] [address] [id number] [place] [address] Apr, [facility] [place] [facility] [address] [id number] [place] [address] Feb, [facility] [place] [facility] [address] [id number] [place] [address] Feb, [facility] [place] [facility] [address] [id number] [place] [address] Feb, [facility] [place] [facility] [address] [id number] [place] [address] Feb, [facility] [place] [facility] [address] [id number] [place] [address] Feb, [facility] [place] [facility] [address] [id number] [place] [address] Feb, [facility] [place] [facility] [address] [id number] [place] [address] Jan, [facility] [place] [facility] [address] [id number] [place] [address] Jan, 2013 [facility] [place] [facility] [address] [id number] [place] [address] Jan, [facility] [place] [facility] [address] [id number] [place] [address] Jan, 2013 [facility] [place] [facility] [address] [id number] [place] [address] Jan, [facility] [place] [facility] [address] [id number] [place] [address] Jan, [facility] [place] [facility] [address] [id number] [place] [address] Dec, [facility] [place] [facility] [address] [id number] [place] [address] Dec, [facility] [place] [facility] [address] [id number] [place] [address] Dec, [facility] [place] [facility] [address] [id number] [place] [address] Dec, [facility] [place] [facility] [address] [id number] [place] [address] Nov, [facility] [place] [facility] [address] [id number] [place] [address] Nov, [facility] [place] [facility] [address] [id number] [place] [address] Nov, [facility] [place] [facility] [address] [id number] [place] [address] Nov, [facility] [place] [facility] [address] [id number] [place] [address] Nov, [facility] [place] [facility] [address] [id number] [place] [address] Nov, [facility] [place] [facility] [address] [id number] [place] [address] 15 Nov, 2013 [facility] [place] [facility] [address] [id number] [place] [address] 15 Nov, 2013 [facility] [place] [facility] [address] [id number] [place] [address] Oct, [facility] [place] [facility] [address] [id number] [place] [address] Oct, [facility] [place] [facility] [address] [id number] [place] [address] Oct, [facility] [place] [facility] [address] [id number] [place] [address] Oct, [facility] [place] [facility] [address] [id number] [place] [address] Oct, [facility] [place] [facility] [address] [id number] [place] [address] Oct, [facility] [place] [facility] [address] [id number] [place] [address] Oct, [facility] [place] [facility] [address] [id number] [place] [address] Oct, [facility] [place] [facility] [address] [facility] [id number] [place] [address] Oct, [facility] [place] [facility] [address] [id number] [place] [address] Oct, [facility] [place] [facility] [address] [id number] [place] [address] Oct, [facility] [place] [facility] [address] [id number] [place] [address] Oct, [facility] [place] [facility] [address] [id number] [place] [address] Oct, [facility] [place] [facility] [address] [id number] [place] [address] Oct, [facility] [place] [facility] [address] [id number] [place] [address] 17 Oct, 2013 [facility] [place] [facility] [address] [id number] [place] [address] 17 Oct, 2013 [facility] [place] [facility] [address] [id number] [place] [address] 16 Oct, 2013 [facility] [place] [facility] [address] [address] [id number] [place] [address] Oct, [facility] [place] [facility] [address] [id number] [place] [address] Oct, [facility] [place] [facility] [address] [id number] [place] [address] Oct, [facility] [place] [facility] [address] [id number] [place] [address] Oct, [facility] [place] [facility] [address] [id number] [place] [address] Oct, [facility] [place] [facility] [address] [id number] [place] [address] Oct, [facility] [place] [facility] [address] [id number] [place] [address] Oct, [facility] [place] [facility] [address] [id number] [place] [address] Oct, [facility] [place] [facility] [address] [id number] [place] [address] Oct, [facility] [place] [facility] [address] [id number] [place] [address] Oct, [facility] [place] [facility] [address] [id number] [place] [address] Oct, [facility] [place] [facility] [address] [id number] [place] [address] Oct, [facility] [place] [facility] [address] [id number] [place] [address] Oct, [facility] [place] [facility] [address] [id number] [place] [address] September, [facility] [place] [facility] [address] [id number] [place] [address] September, [facility] [place] [facility] [address] [id number] [place] [address] September, [facility] [place] [facility] [address] [id number] [place] [address] September, [facility] [place] [facility] [address] [id number] [place] [address] September, [facility] [place] [facility] [address] [id number] [place] [address] September, [facility] [place] [facility] [address] [id number] [place] [address] September, [facility] [place] [facility] [address] [id number] [place] [address] September, [facility] [place] [facility] [address] [id number] [place] [address] September, [facility] [place] [facility] [address] [id number] [place] [address] September, [facility] [place] [facility] [address] [id number] [place] [address] September, [facility] [place] [facility] [address] [id number] [place] [address] September, [facility] [place] [facility] [address] [id number] [place] [address] September, [facility] [place] [facility] [address] [id number] [place] [address] September, [facility] [place] [facility] [address] [id number] [place] [address] September, [facility] [place] [facility] [address] [id number] [place] [address] September, [facility] [address] [id number] [place] [address] September, [facility] [place] [facility] [address] [id number] [place] [address] September, [facility] [address] [id number] [place] [address] Aug, [facility] [place] [facility] [address] [id number] [place] [address] Aug, [facility] [place] [facility] [address] [id number] [place] [address] Aug, [facility] [place] [facility] [address] [id number] [place] [address] Aug, [facility] [place] [facility] [address] [id number] [place] [address] Aug, [facility] [address] [id number] [place] [address] Aug, [facility] [place] [facility] [address] [id number] [place] [address] Jul, [facility] [address] [id number] [place] [address] Jul, [facility] [place] [facility] [address] [id number] [place] [address] Jul, [facility] [place] [facility] [address] [id number] [place] [address] Jul, [facility] [place] [facility] [address] [id number] [place] [address] Jun, [facility] [place] [facility] [address] [id number] [place] [address] Jun, [facility] [place] [facility] [address] [id number] [place] [address] Jun, [facility] [place] [facility] [address] [id number] [place] [address] Jun, [facility] [place] [facility] [address] [id number] [place] [address] Mar, [facility] [place] [facility] [address] [id number] [place] [address] Mar, [facility] [place] [facility] [address] [id number] [place] [address] Mar, [facility] [place] [facility] [address] [id number] [place] [address] Mar, [facility] [place] [facility] [address] [id number] [place] [address] Feb, [facility] [place] [facility] [address] [id number] [place] [address] Feb, [facility] [place] [facility] [address] [id number] [place] [address] Feb, [facility] [place] [facility] [address] [id number] [place] [address] Jan, [facility] [place] [facility] [address] [id number] [place] [address] 20 Jan, 2013 [facility] [place] [facility] [address] [id number], [place] [address] 12 Jan, 2013 [facility] [place] [facility] [address] [id number], [place] [address] 05 Jan, 2013 [facility] [place] [facility] [address] [id number] [place] [address] Dec, [facility] [place] [facility] [address] [id number], [place] [address] 15 Dec, 2012 [facility] [place] [facility] [address] [id number] [place] [address] Dec, [facility] [place] [facility] [address] [id number] [place] [address] Dec, [facility] [place] [facility] [address] [id number] [place] [address] Nov, [facility] [place] [facility] [address] [id number] [place] [address] Nov, [facility] [place] [facility] [address] [id number] [place] [address] Nov, [facility] [place] [facility] [address] [id number] [place] [address] Nov, [facility] [place] [facility] [address] [id number] [place] [address] Nov, [facility] [place] [facility] [address] [id number] [place] [address] Nov, [facility] [place] [facility] [address] [id number] [place] [address] Oct, [facility] [place] [facility] [address] [id number] [place] [address] Oct, [facility] [place] [facility] [address] [id number] [place] [address] Oct, [facility] [place] [facility] [address] [id number] [place] [address] Oct, [facility] [place] [facility] [address] [id number] [place] [address] 17 Oct, 2012 [facility] [place] [facility] [address] [id number] [place] [address] 16 Oct, 2012 [facility] [place] [facility] [address] [id number] [place] [address] 14 Oct, 2012 [facility] [place] [facility] [address] [id number] [place] [address] 13 Oct, 2012 [facility] [place] [facility] [address] [id number] [place] [address] Oct, [facility] [place] [facility] [address] [id number] [place] [address] Oct, [facility] [address] [id number] [place] [address] September, [facility] [address] [id number] [place] [address] September, [facility] [address] [id number] [place] [address] September, [facility] [address] [id number] [place] [address] Aug, [facility] [address] [id number] [place] [address] Aug, [facility] [address] [id number] [place] [address] Aug, [facility] [address] [id number] [place] [address] Aug, [facility] [address] [id number] [place] [address] Jul, [facility] [address] [id number] [place] [address] Jul, [facility] [address] [id number] [place] [address] Jul, [facility] [address] [id number] [place] [address] Jul, [facility] [address] [id number] [place] [address] Jul, [facility] [place] [facility] [address] [id number] [place] [address] Jul, [facility] [address] [id number] [place] [address] May, [facility] [address] [id number] [place] [address] 29 May, 2012 [facility] [address] [id number] [place] [address] May, [facility] [place] [facility] [address] [id number] [place] [address] May, [facility] [address] [id number] [place] [address] May, [facility] [place] [facility] [address] [id number] [place] [address] May, [facility] [address] [id number] [place] [address] May, [facility] [address] [id number] [place] [address] May, [facility] [address] [id number] [place] [address] 17 May, 2012 [facility] [place] [facility] [address] [id number] [place] [address] 17 May, 2012 [facility] [address] [id number] [place] [address] 16 May, 2012 [facility] [address] [id number] [place] [address] Apr, [facility] [address] [id number] [place] [address] Apr, [facility] [place] [facility] [address] [id number] [place] [address] Apr, [facility] [place] [facility] [address] [id number] [place] [address] Apr, [facility] [place] [facility] [address] [id number] [place] [address] Apr, [facility] [place] [facility] [address] [id number] [place] [address] Apr, [facility] [place] [facility] [address] [id number] [place] [address] Mar, [facility] [place] [facility] [address] [id number] [place] [address] Mar, [facility] [place] [facility] [address] [id number] [place] [address] Mar, [facility] [place] [facility] [address] [id number] [place] [address] Mar, [facility] [place] [facility] [address] [id number] [place] [address] Mar, [facility] [place] [facility] [address] [id number] [place] [address] Mar, [facility] [place] [facility] [address] [id number] [place] [address] Mar, [facility] [place] [facility] [address] [id number] [place] [address] Mar, [facility] [place] [facility] [address] [id number] [place] [address] Feb, [facility] [place] [facility] [address] [id number] [place] [address] Feb, [facility] [place] [facility] [address] [id number] [place] [address] 16 Feb, 2012 [facility] [place] [facility] [address] [id number] [place] [address] 15 Feb, 2012 [facility] [place] [facility] [address] [id number] [place] [address] 15 Feb, 2012 [facility] [place] [facility] [address] [id number] [place] [address] 13 Feb, 2012 [facility] [place] [facility] [address] [id number] [place] [address] Feb, [facility] [place] [facility] [address] [id number] [place] [address] Feb, [facility] [place] [facility] [address] [id number] [place] [address] Feb, [facility] [place] [facility] [address] [id number] [place] [address] Feb, [facility] [place] [facility] [address] [id number] [place] [address] Feb, [facility] [place] [facility] [address] [id number] [place] [address] Feb, [facility] [place] [facility] [address] [id number] [place] [address] Feb, [facility] [place] [facility] [address] [id number] [place] [address] Feb, [facility] [place] [facility] [address] [id number] [place] [address] Feb, [facility] [place] [facility] [address] [id number], [place] [address] Feb, [facility] [place] [facility] [address] [id number] [place] [address] Feb, [facility] [place] [facility] [address] [id number], [place] [address] Feb, [facility] [place] [facility] [address] [id number], [place] [address] 19 Jan, 2012 [facility] [place] [facility] [address] [id number], [place] [address] 13 Sep2011 [facility] [place] [facility] [address] [id number], [place] [address] 11 Sep2011 [facility] [place] [facility] [address] [id number], [place] [address] 10 Sep2011 [facility] [place] [facility] [address] [id number], [place] [address] 05 Sep2011 [facility] [place] [facility] [address] [id number], [place] [address] Dec, [facility] [place] [facility] [address] [id number] [place] [address] Dec, [facility] [place] [facility] [address] [id number] [place] [address] Dec, [facility] [place] [facility] [address] [id number] [place] [address] Dec, [facility] [place] [facility] [address] [id number] [place] [address] Dec, [facility] [place] [facility] [address] [id number] [place] [address] Dec, [facility] [place] [facility] [address] [id number] [place] [address] Nov, [facility] [place] [facility] [address] [id number] [place] [address] Nov, [facility] [place] [facility] [address] [id number] [place] [address] Nov, [facility] [place] [facility] [address] [id number] [place] [address] Nov, [facility] [place] [facility] [address] [id number] [place] [address] Nov, [facility] [place] [facility] [address] [id number] [place] [address] Oct, [facility] [place] [facility] [address] [id number] [place] [address] Oct, [facility] [place] [facility] [address] [id number] [place] [address] Oct, [facility] [place] [facility] [address] [id number] [place] [address] September, [facility] [place] [facility] [address] [id number] [place] [address] September, [facility] [place] [facility] [address] [id number] [place] [address] September, [facility] [address] [id number] [place] [address] September, [facility] [place] [facility] [address] [id number] [place] [address] September, [facility] [place] [facility] [address] [id number] [place] [address] September, [facility] [place] [facility] [address] [id number] [place] [address] Aug, [facility] [place] [facility] [address] [id number] [place] [address] Aug, [facility] [place] [facility] [address] [id number] [place] [address] Aug, [facility] [place] [facility] [address] [id number] [place] [address] Jun, [facility] [place] [facility] [address] [id number] [place] [address] Jun, [facility] [place] [facility] [address] [id number] [place] [address] Jun, [facility] [place] [facility] [address] [id number] [place] [address] Jun, [facility] [place] [facility] [address] [id number] [place] [address] May, [facility] [place] [facility] [address] [id number] [place] [address] May, [facility] [place] [facility] [address] [id number] [place] [address] May, [facility] [place] [facility] [address] [id number] [place] [address] May, [facility] [place] [facility] [address] [id number] [place] [address] May, [facility] [place] [facility] [address] [id number] [place] [address] Apr, [facility] [place] [facility] [address] [id number] [place] [address] Apr, [facility] [place] [facility] [address] [id number] [place] [address] Apr, [facility] [place] [facility] [address] [id number] [place] [address] Apr, [facility] [place] [facility] [address] [id number] [place] [address] Apr, [facility] [place] [facility] [address] [id number] [place] [address] Apr, [facility] [place] [facility] [address] [id number] [place] [address] Apr, [facility] [place] [facility] [address] [id number] [place] [address] Mar, [facility] [place] [facility] [address] [id number] [place] [address] Mar, [facility] [place] [facility] [address] [id number] [place] [address] Mar, [facility] [place] [facility] [address] [id number], [place] [address] Feb, [facility] [place] [facility] [address] [id number], [place] [address] Feb, [facility] [place] [facility] [address] [id number] [place] [address] Feb, [facility] [place] [facility] [address] [id number] [place] [address] Feb, [facility] [place] [facility] [address] [id number] [place] [address] 18 Feb, 2011 [facility] [place] [facility] [address] [id number] [place] [address] 17 Feb, 2011 [facility] [address] [id number] [place] [address] 13 Jan, 2011 [facility] [place] [facility] [address] [id number] [place] [address] 12 Jan, 2011 [facility] [address] [id number] [place] [address] September, [facility] [place] [facility] [address] [id number] [place] [address] Jun, [facility] [address] [id number] [place] [address] Apr, [facility] [address] [id number] [place] [address] Apr, [facility] [address] [id number] [place] [address] Apr, [facility] [address] [id number] [place] [address] Apr, [facility] [address] [id number] [place] [address] Apr, [facility] [address] [id number] [place] [address] 30 Mar, 2010 [facility] [place] [facility] [address] [id number] [place] [id number] 24 Mar, 2010 [facility] [address] [id number] [place] [id number] 23 Mar, 2010 [facility] [place] [facility] [address] [id number] [place] [id number] 05 Mar, 2010 [facility] [place] [facility] [address] [id number] [place] [id number] 27 Feb, 2010 [facility] [place] [facility] [address] [id number] [place] [id number] 15 Jan, 2010 [facility] [address] [facility] [id number] [place] [address] Mar, [facility] [address] [id number] [address] 15 Jan, 2009 [facility] [address] [facility] [id number], [place] [address] Oct, [facility] [address] [facility] [id number], [place] [address] Apr, IMMUNIZATIONS No Known Immunizations SOCIAL HISTORY Never Assessed REASON FOR VISIT [facility] PLAN OF CARE VITAL [...]
--- OUTSIDE RECORDS SUMMARY | 2018-09-28 03:55 | XMS REPORT ---
Author Author Migration, Doctor Organization [facility] Address Unknown Phone Unavailable Care Team Providers Care Automobile Rental Representative Name Role Phone Migration, Doctor Unavailable Unavailable PROBLEMS Type Condition ICD9-CM Code RRO04-LG Code Onset Dates Condition Status SNOMED Code Problem Essential hypertension I10 Active 51849709 Problem Bilateral low back pain without sciatica M54.5 Active 769406060 Problem Anxiety F41.9 Active 03584550 Problem Dysuria R30.0 Active 29602570 Problem Irritable bowel syndrome without diarrhea K58.9 Active 46156430 Problem Rhinosinusitis J32.9 Active 322058732 Problem Hypertriglyceridemia E78.1 Active 864590341 Problem Pre-diabetes R73.03 Active 382408365 Problem Alternating constipation and diarrhea R19.8 Active 357970101 Problem Body mass index (BMI) of 40.0-44.9 in adult Z68.41 Active 751509415 Problem Morbid (severe) obesity due to excess calories E66.01 Active 138330436 ALLERGIES No Information ENCOUNTERS Encounter Location Date Diagnosis [place] [address] [address] Aug, Acute nonintractable headache, unspecified headache type R51 ; Acute non-recurrent maxillary sinusitis J01.00 and Pre-diabetes R73.03 [place] [address] [place] [id number] [place] [address] Aug, Acute vaginitis N76.0 [facility] [place] [facility] [address] [address] Aug, Rhinosinusitis J32.9 ; Bronchitis J40 ; Folliculitis L73.9 and Morbid obesity E66.01 [place] [address] [address] Jul, [facility] [place] [facility] [address] [address] Jul, [facility] [place] [facility] [address] [place] [address] Jun, [facility] [place] [facility] [address] [place] [address] Jun, Acute vaginitis N76.0 ; Dermatitis L30.9 ; BMI 40.0-44.9, adult Z68.41 and Morbid obesity E66.01 [facility] [address] [place] [id number] [place] [address] Jun, Vaginal discharge N89.8 ; Urinary tract infection without hematuria, site unspecified N39.0 and BMI 40.0-44.9, adult Z68.41 [place] [address] [place] [id number] [place] [address] May, [place] [address] [place] [id number] [place] [address] May, [place] [address] [place] [id number] [place] [address] Apr, Urinary tract infection, site not specified N39.0 [place] [address] [place] [id number] [place] [address] Apr, Dysuria R30.0 ; Urinary tract infection, site not specified N39.0 and Hematuria, unspecified R31.9 [place] [address] [place] [id number] [place] [address] Mar, [place] [address] [place] [id number] [place] [address] Mar, Left anterior knee pain M25.562 ; Abscess of buttock, left L02.31 and BMI 40.0-44.9, adult Z68.41 [facility] [place] [facility] [address] [place] [address] Mar, [facility] [address] [place] [id number] [place] [address] Feb, Abrasion of right ear canal, initial encounter S00.411A ; Left wrist pain M25.532 ; Right acute serous otitis media, recurrence not specified H65.01 and BMI 40.0-44.9, adult Z68.41 [facility] [place] [facility] [address] [place] [id number] [place] [address] Jan, [place] [address] [address] Jan, [place] [address] [address] Jan, BMI 40.0-44.9, adult Z68.41 ; Pre-diabetes R73.03 ; Essential hypertension I10 ; Morbid (severe) obesity due to excess calories E66.01 ; Bilateral low back pain without sciatica M54.5 and Heartburn R12 [place] [address] [address] Jan, History of UTI Z87.440 ; Well woman exam with routine gynecological exam Z01.419 ; Screening for breast cancer Z12.31 ; Candidal vaginitis B37.3 and BMI 40.0-44.9, adult Z68.41 [place] [address] [place] [id number] [place] [address] Jan, [facility] [address] [place] [id number] [place] [address] Jan, Dysuria R30.0 ; Acute cystitis with hematuria N30.01 ; Yeast infection B37.9 and BMI 40.0-44.9, adult Z68.41 [place] [address] [address] Dec, [place] [address] [address] Dec, [place] [address] [address] Nov, History of UTI Z87.440 [facility] [place] [facility] [address] [place] [address] Nov, UTI symptoms R39.9 ; Acute nasopharyngitis J00 and BMI 40.0-44.9, adult Z68.41 [place] [address] [place] [address] Nov, [facility] [place] [facility] [address] [place] [id number] [place] [address] Nov, Yeast infection involving the vagina and surrounding area B37.3 [place] [address] [place] [id number] [place] [address] Nov, Yeast infection involving the vagina and surrounding area B37.3 [place] [address] [place] [id number] [place] [address] Nov, Yeast infection involving the vagina and surrounding area B37.3 ; Body mass index (BMI) of 40.0-44.9 in adult Z68.41 and Morbid (severe) obesity due to excess calories E66.01 [place] [address] [place] [address] Oct, Abscess of groin, left L02.214 and Pre-diabetes R73.03 [place] [address] [address] September, Pre-diabetes R73.03 [place] [address] [place] [id number] [place] [address] Aug, [facility] [place] [facility] [address] [place] [address] Jul, Bilateral low back pain without sciatica M54.5 [facility] [place] [facility] [address] [place] [id number] [place] [address] Jun, [place] [address] [place] [id number] [place] [address] Jun, [place] [address] [place] [id number] [place] [address] Jun, [facility] [place] [facility] [address] [address] May, [facility] [place] [facility] [address] [place] [id number] [place] [address] May, Ingrown left greater toenail L60.0 [facility] [place] [facility] [address] [address] May, [facility] [address] [address] May, Influenza A J10.1 ; Fever R50.9 and Body aches R52 [facility] [facility] [address] [address] Apr, [facility] [place] [facility] [address] [address] Apr, [facility] [place] [facility] [address] [address] Apr, [facility] [place] [facility] [address] [address] Apr, Abscess L02.91 and Obesity (BMI 30-39.9) E66.9 [facility] [facility] [address] [address] Apr, [facility] [place] [facility] [address] [place] [id number] [place] [address] Apr, [facility] [facility] [address] [address] Mar, Acute non-recurrent maxillary sinusitis J01.00 [facility] [facility] [address] [place] [id number] [place] [address] Feb, Heartburn R12 [facility] [facility] [address] [address] Feb, Heartburn R12 ; Low back pain M54.5 ; Essential hypertension I10 ; Bilateral low back pain without sciatica M54.5 ; Anxiety F41.9 ; Pre-diabetes R73.03 ; Other obesity due to excess calories E66.09 ; Alternating constipation and diarrhea R19.8 ; Dyspepsia R10.13 ; Generalized abdominal pain R10.84 ; Rhinosinusitis J32.9 and Boil L02.92 [place] [address] [address] Jan, Heartburn R12 [place] [address] [address] Jan, [place] [address] [address] Jan, [place] [address] [address] Jan, Acute seasonal allergic rhinitis due to pollen J30.1 and Irritable bowel syndrome without diarrhea K58.9 [place] [address] [address] Dec, Low back pain M54.5 and Acute cystitis with hematuria N30.01 [place] [address] [address] Dec, Low back pain M54.5 and Acute cystitis with hematuria N30.01 [place] [address] [address] Dec, Heartburn R12 ; Essential hypertension I10 ; Acute non-recurrent maxillary sinusitis J01.00 ; Bilateral low back pain without sciatica M54.5 ; Anxiety F41.9 ; Pre-diabetes R73.03 ; Pain in right foot M79.671 ; Pain in left foot M79.672 ; Other obesity due to excess calories E66.09 and Acute cystitis with hematuria N30.01 [place] [address] [address] Dec, Bilateral low back pain without sciatica M54.5 ; Acute non-recurrent maxillary sinusitis J01.00 and Pre-diabetes R73.03 [place] [address] [address] Oct, [facility] [place] [address] [address] Aug, [facility] [place] [address] [address] Aug, Acute vaginitis N76.0 ; Urinary frequency R35.0 ; Screen for STD (sexually transmitted disease) Z11.3 and Abscess L02.91 [place] [address] [address] Aug, Plantar wart of right foot B07.0 [place] [address] [address] Jul, Plantar wart of right foot B07.0 [place] [address] [address] Jun, [place] [address] [address] Jun, Heartburn R12 ; Essential hypertension I10 ; Anxiety F41.9 ; Folliculitis L73.9 and Plantar wart of right foot B07.0 [place] [address] [address] Jun, [facility] [place] [address] [address] May, Low back pain M54.5 and Other chronic pain G89.29 [place] [address] [address] May, [place] [address] [address] May, [place] [address] [place] [id number] [place] [address] May, Heartburn R12 ; Bilateral low back pain without sciatica M54.5 ; Essential hypertension I10 ; Long-term use of high-risk medication Z79.899 ; Anxiety F41.9 ; Impacted cerumen of right ear H61.21 ; Folliculitis L73.9 ; High risk bisexual behavior Z72.53 and General medical exam Z00.00 [place] [address] [address] May, [place] [address] [address] May, [place] [address] [address] Mar, Acute nasopharyngitis J00 ; Acute intractable tension-type headache G44.201 and Cough R05 [place] [address] [place] [id number] [place] [address] Jan, [facility] [address] [address] Jan, Abscess L02.91 [facility] [place] [address] [place] [id number] [place] [address] Jan, Urinary urgency R39.15 and Urinary tract infection without hematuria, site unspecified N39.0 [place] [address] [place] [id number] [place] [address] Jan, [place] [address] [place] [id number] [place] [address] Jan, [place] [address] [address] Dec, [place] [address] [place] [id number] [place] [address] Dec, Dermatofibroma D23.9 [place] [address] [place] [address] September, [facility] [facility] [address] [place] [id number] [place] [address] Aug, [facility] [place] [facility] [address] [place] [id number] [place] [address] Aug, Pain in left knee M25.562 ; Heartburn R12 ; Bilateral low back pain without sciatica M54.5 ; Essential hypertension I10 ; Ingrown left big toenail L60.0 ; Chronic pain G89.29 ; Irritable bowel syndrome with constipation K58.9 and Skin infection L08.9 [facility] [facility] [address] [place] [id number] [place] [address] Aug, [facility] [place] [facility] [address] [place] [id number] [place] [address] Jul, [facility] [place] [facility] [address] [place] [id number] [place] [address] Jun, [facility] [place] [facility] [address] [place] [address] Jun, [facility] [place] [facility] [address] [place] [id number] [place] [address] Jun, [facility] [place] [facility] [address] [place] [address] Jun, [facility] [place] [facility] [address] [place] [address] Jun, Upper respiratory infection J06.9 ; Bilateral low back pain without sciatica M54.5 and Headache R51 [facility] [place] [facility] [address] [place] [id number] [place] [address] May, [facility] [place] [facility] [address] [place] [address] Apr, Bilateral low back pain without sciatica M54.5 ; Upper respiratory infection J06.9 and Yeast dermatitis B37.2 [facility] [facility] [address] [address] Apr, [facility] [place] [facility] [address] [place] [id number] [place] [address] Apr, [facility] [place] [facility] [address] [place] [address] Feb, [facility] [place] [facility] [address] [place] [id number] [place] [address] Feb, [facility] [place] [facility] [address] [place] [id number] [place] [address] Feb, [facility] [place] [facility] [address] [place] [id number] [place] [address] Feb, Essential hypertension I10 ; Heartburn R12 ; Irritable bowel syndrome without diarrhea K58.9 ; Bilateral low back pain, with sciatica presence unspecified M54.5 and Upper respiratory infection J06.9 [place] [address] [place] [id number] [place] [address] Feb, [facility] [place] [facility] [address] [place] [id number] [place] [address] Feb, Generalized anxiety disorder F41.1 and Grief F43.20 [place] [address] [place] [address] Jan, [facility] [place] [facility] [address] [place] [address] Jan, Back pain 724.5 ; Upper respiratory infection 465.9 ; HTN (hypertension) 401.9 and Dyspepsia 536.8 [place] [address] [place] [id number] [place] [address] Dec, [facility] [place] [facility] [address] [place] [id number] [place] [address] Nov, Back pain 724.5 ; Abdominal pain, bilateral lower quadrant 789.03 ; GERD (gastroesophageal reflux disease) 530.81 ; Upper respiratory infection 465.9 ; Dysuria 788.1 and HTN (hypertension) 401.9 [facility] [place] [facility] [address] [address] Nov, [facility] [place] [facility] [address] [place] [id number] [place] [address] Nov, [facility] [place] [facility] [address] [place] [id number] [place] [address] Nov, [facility] [place] [facility] [address] [place] [id number] [place] [address] Nov, Cough 786.2 [facility] [place] [facility] [address] [place] [id number] [place] [address] Nov, Cough 786.2 [facility] [place] [facility] [address] [place] [id number] [place] [address] Oct, Unspecified episodic mood disorder 296.90 and Anxiety disorder, unspecified 300.00 [facility] [place] [facility] [address] [place] [id number] [place] [address] Oct, Abdominal pain, left upper quadrant 789.02 ; Essential hypertension, benign 401.1 ; Irritable bowel syndrome 564.1 ; Abscess 682.9 ; Heartburn 787.1 ; Acute sinusitis, unspecified 461.9 ; Muscle spasm of back 724.8 ; Cough 786.2 and Skin tag 701.9 [facility] [place] [facility] [address] [place] [address] September, [facility] [place] [facility] [address] [place] [address] September, [facility] [place] [facility] [address] [place] [id number] [place] [address] September, [facility] [place] [facility] [address] [place] [id number] [place] [address] Aug, [facility] [place] [facility] [address] [place] [address] Aug, [facility] [place] [facility] [address] [id number] [place] [address] 30 Jul, 2014 [facility] [place] [facility] [address] [id number] [place] [address] 30 Jul, 2014 [facility] [place] [facility] [address] [id number] [place] [address] Jul, [facility] [place] [facility] [address] [id number] [place] [address] Jul, [facility] [place] [facility] [address] [id number] [place] [address] Jul, [facility] [place] [facility] [address] [id number] [place] [address] Jul, [facility] [place] [facility] [address] [id number] [place] [address] Jul, [facility] [place] [facility] [address] [id number] [place] [address] Jul, [facility] [place] [facility] [address] [id number] [place] [address] Jul, [facility] [place] [facility] [address] [id number] [place] [address] Jul, [facility] [place] [facility] [address] [id number] [place] [address] Jul, [facility] [place] [facility] [address] [id number] [place] [address] Jul, [facility] [place] [facility] [address] [id number] [place] [address] Jul, [facility] [place] [facility] [address] [id number] [place] [address] Jul, [facility] [place] [facility] [address] [id number] [place] [address] Jul, [facility] [place] [facility] [address] [id number] [place] [address] Jul, 2014 [facility] [place] [facility] [address] [facility] [id number] [place] [address] Jul, 2014 [facility] [place] [facility] [address] [facility] [id number] [place] [address] Jun, 2014 [facility] [place] [facility] [address] [facility] [id number] [place] [address] Jun, 2014 [facility] [place] [facility] [address] [facility] [id number] [place] [address] Jun, 2014 [facility] [place] [facility] [address] [facility] [id number] [place] [address] Jun, 2014 [facility] [place] [facility] [address] [facility] [id number] [place] [address] Jun, 2014 [facility] [place] [facility] [address] [facility] [id number] [place] [address] Jun, 2014 [facility] [place] [facility] [address] [facility] [id number] [place] [address] Jun, 2014 [facility] [place] [facility] [address] [facility] [id number] [place] [address] Jun, 2014 [facility] [place] [facility] [address] [facility] [id number] [place] [address] Apr, [facility] [place] [facility] [address] [facility] [id number] [place] [address] Apr, [facility] [place] [facility] [address] [facility] [id number] [place] [address] Apr, [facility] [place] [facility] [address] [facility] [id number] [place] [address] Apr, [facility] [place] [facility] [address] [facility] [id number] [place] [address] Apr, [facility] [place] [facility] [address] [facility] [id number] [place] [address] Apr, [facility] [place] [facility] [address] [id number] [place] [address] 15 Apr, 2014 [facility] [place] [facility] [address] [id number] [place] [address] Apr, [facility] [place] [facility] [address] [id number] [place] [address] Apr, [facility] [place] [facility] [address] [id number] [place] [address] Apr, [facility] [place] [facility] [address] [id number] [place] [address] Apr, [facility] [place] [facility] [address] [id number] [place] [address] Apr, [facility] [place] [facility] [address] [id number] [place] [address] Apr, [facility] [place] [facility] [address] [id number] [place] [address] Apr, [facility] [place] [facility] [address] [id number] [place] [address] Apr, [facility] [place] [facility] [address] [id number] [place] [address] Feb, [facility] [place] [facility] [address] [id number] [place] [address] Feb, [facility] [place] [facility] [address] [id number] [place] [address] Feb, [facility] [place] [facility] [address] [id number] [place] [address] Feb, [facility] [place] [facility] [address] [id number] [place] [address] Feb, [facility] [place] [facility] [address] [id number] [place] [address] Feb, [facility] [place] [facility] [address] [id number] [place] [address] Jan, [facility] [place] [facility] [address] [id number] [place] [address] Jan, 2013 [facility] [place] [facility] [address] [id number] [place] [address] Jan, [facility] [place] [facility] [address] [id number] [place] [address] Jan, 2013 [facility] [place] [facility] [address] [id number] [place] [address] Jan, [facility] [place] [facility] [address] [id number] [place] [address] Jan, [facility] [place] [facility] [address] [id number] [place] [address] Dec, [facility] [place] [facility] [address] [id number] [place] [address] Dec, [facility] [place] [facility] [address] [id number] [place] [address] Dec, [facility] [place] [facility] [address] [id number] [place] [address] Dec, [facility] [place] [facility] [address] [id number] [place] [address] Nov, [facility] [place] [facility] [address] [id number] [place] [address] Nov, [facility] [place] [facility] [address] [id number] [place] [address] Nov, [facility] [place] [facility] [address] [id number] [place] [address] Nov, [facility] [place] [facility] [address] [id number] [place] [address] Nov, [facility] [place] [facility] [address] [id number] [place] [address] Nov, [facility] [place] [facility] [address] [id number] [place] [address] 15 Nov, 2013 [facility] [place] [facility] [address] [id number] [place] [address] 15 Nov, 2013 [facility] [place] [facility] [address] [id number] [place] [address] Oct, [facility] [place] [facility] [address] [id number] [place] [address] Oct, [facility] [place] [facility] [address] [id number] [place] [address] Oct, [facility] [place] [facility] [address] [id number] [place] [address] Oct, [facility] [place] [facility] [address] [id number] [place] [address] Oct, [facility] [place] [facility] [address] [id number] [place] [address] Oct, [facility] [place] [facility] [address] [id number] [place] [address] Oct, [facility] [place] [facility] [address] [id number] [place] [address] Oct, [facility] [place] [facility] [address] [facility] [id number] [place] [address] Oct, [facility] [place] [facility] [address] [id number] [place] [address] Oct, [facility] [place] [facility] [address] [id number] [place] [address] Oct, [facility] [place] [facility] [address] [id number] [place] [address] Oct, [facility] [place] [facility] [address] [id number] [place] [address] Oct, [facility] [place] [facility] [address] [id number] [place] [address] Oct, [facility] [place] [facility] [address] [id number] [place] [address] 17 Oct, 2013 [facility] [place] [facility] [address] [id number] [place] [address] 17 Oct, 2013 [facility] [place] [facility] [address] [id number] [place] [address] 16 Oct, 2013 [facility] [place] [facility] [address] [id number] [place] [address] Oct, [facility] [place] [facility] [address] [id number] [place] [address] Oct, [facility] [place] [facility] [address] [id number] [place] [address] Oct, [facility] [place] [facility] [address] [id number] [place] [address] Oct, [facility] [place] [facility] [address] [id number] [place] [address] Oct, [facility] [place] [facility] [address] [id number] [place] [address] Oct, [facility] [place] [facility] [address] [id number] [place] [address] Oct, [facility] [place] [facility] [address] [id number] [place] [address] Oct, [facility] [place] [facility] [address] [id number] [place] [address] Oct, [facility] [place] [facility] [address] [id number] [place] [address] Oct, [facility] [place] [facility] [address] [id number] [place] [address] Oct, [facility] [place] [facility] [address] [id number] [place] [address] Oct, [facility] [place] [facility] [address] [id number] [place] [address] Oct, [facility] [place] [facility] [address] [id number] [place] [address] September, [facility] [place] [facility] [address] [id number] [place] [address] September, [facility] [place] [facility] [address] [id number] [place] [address] September, [facility] [place] [facility] [address] [id number] [place] [address] September, [facility] [place] [facility] [address] [id number] [place] [address] September, [facility] [place] [facility] [address] [id number] [place] [address] September, [facility] [place] [facility] [address] [id number] [place] [address] September, [facility] [place] [facility] [address] [id number] [place] [address] September, [facility] [place] [facility] [address] [id number] [place] [address] September, [facility] [place] [facility] [address] [id number] [place] [address] September, [facility] [place] [facility] [address] [id number] [place] [address] September, [facility] [place] [facility] [address] [id number] [place] [address] September, [facility] [place] [facility] [address] [id number] [place] [address] September, [facility] [place] [facility] [address] [id number] [place] [address] September, [facility] [place] [facility] [address] [id number] [place] [address] September, [facility] [place] [facility] [address] [id number] [place] [address] September, [facility] [address] [id number] [place] [address] September, [facility] [place] [facility] [address] [id number] [place] [address] September, [facility] [address] [id number] [place] [address] Aug, [facility] [place] [facility] [address] [id number] [place] [address] Aug, [facility] [place] [facility] [address] [id number] [place] [address] Aug, [facility] [place] [facility] [address] [id number] [place] [address] Aug, [facility] [place] [facility] [address] [id number] [place] [address] Aug, [facility] [address] [id number] [place] [address] Aug, [facility] [place] [facility] [address] [id number] [place] [address] Jul, [facility] [address] [id number] [place] [address] Jul, [facility] [place] [facility] [address] [id number] [place] [address] Jul, [facility] [place] [facility] [address] [id number] [place] [address] Jul, [facility] [place] [facility] [address] [id number] [place] [address] Jun, [facility] [place] [facility] [address] [id number] [place] [address] Jun, [facility] [place] [facility] [address] [id number] [place] [address] Jun, [facility] [place] [facility] [address] [id number] [place] [address] Jun, [facility] [place] [facility] [address] [id number] [place] [address] Mar, [facility] [place] [facility] [address] [id number] [place] [address] Mar, [facility] [place] [facility] [address] [id number] [place] [address] Mar, [facility] [place] [facility] [address] [id number] [place] [address] Mar, [facility] [place] [facility] [address] [id number] [place] [address] Feb, [facility] [place] [facility] [address] [id number] [place] [address] Feb, [facility] [place] [facility] [address] [id number] [place] [address] Feb, [facility] [place] [facility] [address] [id number] [place] [address] Jan, [facility] [place] [facility] [address] [id number] [place] [address] 20 Jan, 2013 [facility] [place] [facility] [address] [id number], [place] [address] 12 Jan, 2013 [facility] [place] [facility] [address] [id number], [place] [address] 05 Jan, 2013 [facility] [place] [facility] [address] [id number] [place] [address] Dec, [facility] [place] [facility] [address] [id number], [place] [address] 15 Dec, 2012 [facility] [place] [facility] [address] [id number] [place] [address] Dec, [facility] [place] [facility] [address] [id number] [place] [address] Dec, [facility] [place] [facility] [address] [id number] [place] [address] Nov, [facility] [place] [facility] [address] [id number] [place] [address] Nov, [facility] [place] [facility] [address] [id number] [place] [address] Nov, [facility] [place] [facility] [address] [id number] [place] [address] Nov, [facility] [place] [facility] [address] [id number] [place] [address] Nov, [facility] [place] [facility] [address] [id number] [place] [address] Nov, [facility] [place] [facility] [address] [id number] [place] [address] Oct, [facility] [place] [facility] [address] [id number] [place] [address] Oct, [facility] [place] [facility] [address] [id number] [place] [address] Oct, [facility] [place] [facility] [address] [id number] [place] [address] Oct, [facility] [place] [facility] [address] [id number] [place] [address] 17 Oct, 2012 [facility] [place] [facility] [address] [id number] [place] [address] 16 Oct, 2012 [facility] [place] [facility] [address] [id number] [place] [address] 14 Oct, 2012 [facility] [place] [facility] [address] [id number] [place] [address] 13 Oct, 2012 [facility] [place] [facility] [address] [id number] [place] [address] Oct, [facility] [place] [facility] [address] [id number] [place] [address] Oct, [facility] [address] [id number] [place] [address] September, [facility] [address] [id number] [place] [address] September, [facility] [address] [id number] [place] [address] September, [facility] [address] [id number] [place] [address] Aug, [facility] [address] [id number] [place] [address] Aug, [facility] [address] [id number] [place] [address] Aug, [facility] [address] [id number] [place] [address] Aug, [facility] [address] [id number] [place] [address] Jul, [facility] [address] [id number] [place] [address] Jul, [facility] [address] [id number] [place] [address] Jul, [facility] [address] [id number] [place] [address] Jul, [facility] [address] [id number] [place] [address] Jul, [facility] [place] [facility] [address] [id number] [place] [address] Jul, [facility] [address] [id number] [place] [address] May, [facility] [address] [id number] [place] [address] 29 May, 2012 [facility] [address] [id number] [place] [address] May, [facility] [place] [facility] [address] [id number] [place] [address] May, [facility] [address] [id number] [place] [address] May, [facility] [place] [facility] [address] [id number] [place] [address] May, [facility] [address] [id number] [place] [address] May, [facility] [address] [id number] [place] [address] May, [facility] [address] [id number] [place] [address] 17 May, 2012 [facility] [place] [facility] [address] [id number] [place] [address] 17 May, 2012 [facility] [address] [id number] [place] [address] 16 May, 2012 [facility] [address] [id number] [place] [address] Apr, [facility] [address] [id number] [place] [address] Apr, [facility] [place] [facility] [address] [id number] [place] [address] Apr, [facility] [place] [facility] [address] [id number] [place] [address] Apr, [facility] [place] [facility] [address] [id number] [place] [address] Apr, [facility] [place] [facility] [address] [id number] [place] [address] Apr, [facility] [place] [facility] [address] [id number] [place] [address] Mar, [facility] [place] [facility] [address] [id number] [place] [address] Mar, [facility] [place] [facility] [address] [id number] [place] [address] Mar, [facility] [place] [facility] [address] [id number] [place] [address] Mar, [facility] [place] [facility] [address] [id number] [place] [address] Mar, [facility] [place] [facility] [address] [id number] [place] [address] Mar, [facility] [place] [facility] [address] [id number] [place] [address] Mar, [facility] [place] [facility] [address] [id number] [place] [address] Mar, [facility] [place] [facility] [address] [id number] [place] [address] Feb, [facility] [place] [facility] [address] [id number] [place] [address] Feb, [facility] [place] [facility] [address] [id number] [place] [address] 16 Feb, 2012 [facility] [place] [facility] [address] [id number] [place] [address] 15 Feb, 2012 [facility] [place] [facility] [address] [id number] [place] [address] 15 Feb, 2012 [facility] [place] [facility] [address] [id number] [place] [address] 13 Feb, 2012 [facility] [place] [facility] [address] [id number] [place] [address] Feb, [facility] [place] [facility] [address] [id number] [place] [address] Feb, [facility] [place] [facility] [address] [id number] [place] [address] Feb, [facility] [place] [facility] [address] [id number] [place] [address] Feb, [facility] [place] [facility] [address] [id number] [place] [address] Feb, [facility] [place] [facility] [address] [id number] [place] [address] Feb, [facility] [place] [facility] [address] [id number] [place] [address] Feb, [facility] [place] [facility] [address] [id number] [place] [address] Feb, [facility] [place] [facility] [address] [id number] [place] [address] Feb, [facility] [place] [facility] [address] [id number], [place] [address] Feb, [facility] [place] [facility] [address] [id number] [place] [address] Feb, [facility] [place] [facility] [address] [id number], [place] [address] Feb, [facility] [place] [facility] [address] [id number], [place] [address] 19 Jan, 2012 [facility] [place] [facility] [address] [id number], [place] [address] 13 Sep2011 [facility] [place] [facility] [address] [id number], [place] [address] 11 Sep2011 [facility] [place] [facility] [address] [id number], [place] [address] 10 Sep2011 [facility] [place] [facility] [address] [id number], [place] [address] 05 Sep2011 [facility] [place] [facility] [address] [id number], [place] [address] Dec, [facility] [place] [facility] [address] [id number] [place] [address] Dec, [facility] [place] [facility] [address] [id number] [place] [address] Dec, [facility] [place] [facility] [address] [id number] [place] [address] Dec, [facility] [place] [facility] [address] [id number] [place] [address] Dec, [facility] [place] [facility] [address] [id number] [place] [address] Dec, [facility] [place] [facility] [address] [id number] [place] [address] Nov, [facility] [place] [facility] [address] [id number] [place] [address] Nov, [facility] [place] [facility] [address] [id number] [place] [address] Nov, [facility] [place] [facility] [address] [id number] [place] [address] Nov, [facility] [place] [facility] [address] [id number] [place] [address] Nov, [facility] [place] [facility] [address] [id number] [place] [address] Oct, [facility] [place] [facility] [address] [id number] [place] [address] Oct, [facility] [place] [facility] [address] [id number] [place] [address] Oct, [facility] [place] [facility] [address] [id number] [place] [address] September, [facility] [place] [facility] [address] [id number] [place] [address] September, [facility] [place] [facility] [address] [id number] [place] [address] September, [facility] [address] [id number] [place] [address] September, [facility] [place] [facility] [address] [id number] [place] [address] September, [facility] [place] [facility] [address] [id number] [place] [address] September, [facility] [place] [facility] [address] [id number] [place] [address] Aug, [facility] [place] [facility] [address] [id number] [place] [address] Aug, [facility] [place] [facility] [address] [id number] [place] [address] Aug, [facility] [place] [facility] [address] [id number] [place] [address] Jun, [facility] [place] [facility] [address] [id number] [place] [address] Jun, [facility] [place] [facility] [address] [id number] [place] [address] Jun, [facility] [place] [facility] [address] [id number] [place] [address] Jun, [facility] [place] [facility] [address] [id number] [place] [address] May, [facility] [place] [facility] [address] [id number] [place] [address] May, [facility] [place] [facility] [address] [id number] [place] [address] May, [facility] [place] [facility] [address] [id number] [place] [address] May, [facility] [place] [facility] [address] [id number] [place] [address] May, [facility] [place] [facility] [address] [id number] [place] [address] Apr, [facility] [place] [facility] [address] [id number] [place] [address] Apr, [facility] [place] [facility] [address] [id number] [place] [address] Apr, [facility] [place] [facility] [address] [id number] [place] [address] Apr, [facility] [place] [facility] [address] [id number] [place] [address] Apr, [facility] [place] [facility] [address] [id number] [place] [address] Apr, [facility] [place] [facility] [address] [id number] [place] [address] Apr, [facility] [place] [facility] [address] [id number] [place] [address] Mar, [facility] [place] [facility] [address] [id number] [place] [address] Mar, [facility] [place] [facility] [address] [id number] [place] [address] Mar, [facility] [place] [facility] [address] [id number], [place] [address] Feb, [facility] [place] [facility] [address] [id number], [place] [address] Feb, [facility] [place] [facility] [address] [id number] [place] [address] Feb, [facility] [place] [facility] [address] [id number] [place] [address] Feb, [facility] [place] [facility] [address] [id number] [place] [address] 18 Feb, 2011 [facility] [place] [facility] [address] [id number] [place] [address] 17 Feb, 2011 [facility] [address] [id number] [place] [address] 13 Jan, 2011 [facility] [place] [facility] [address] [id number] [place] [address] 12 Jan, 2011 [facility] [address] [id number] [place] [address] September, [facility] [place] [facility] [address] [id number] [place] [address] Jun, [facility] [address] [id number] [place] [address] Apr, [facility] [address] [id number] [place] [address] Apr, [facility] [address] [id number] [place] [address] Apr, [facility] [address] [id number] [place] [address] Apr, [facility] [address] [id number] [place] [address] Apr, [facility] [address] [id number] [place] [address] 30 Mar, 2010 [facility] [place] [facility] [address] [id number] [place] [address] 24 Mar, 2010 [facility] [address] [id number] [place] [address] 23 Mar, 2010 [facility] [place] [facility] [address] [id number] [place] [address] 05 Mar, 2010 [facility] [place] [facility] [address] [id number] [place] [address] 27 Feb, 2010 [facility] [place] [facility] [address] [id number] [place] [address] 15 Jan, 2010 [facility] [place] [facility] [address] [facility] [id number] [place] [address] Mar, [facility] [place] [facility] [address] [id number], [place] [address] 15 Jan, 2009 [facility] [place] [facility] [address] [facility] [id number], [place] [address] Oct, [facility] [place] [facility] [address] [facility] [id number], [place] [address] Apr, IMMUNIZATIONS No Known Immunizations SOCIAL HISTORY Never Assessed REASON FOR VISIT [facility] [place] PLAN OF CARE VITAL [...]
--- OUTSIDE RECORDS SUMMARY | 2018-09-28 03:55 | XMS REPORT ---
Author Author Migration, Doctor Organization [facility] Address Unknown Phone Unavailable Care Team Providers Care Data Base Design Analyst Name Role Phone Migration, Doctor Unavailable Unavailable PROBLEMS Type Condition ICD9-CM Code WEP43-FM Code Onset Dates Condition Status SNOMED Code Problem Essential hypertension I10 Active 68862099 Problem Bilateral low back pain without sciatica M54.5 Active 218352535 Problem Anxiety F41.9 Active 00260317 Problem Dysuria R30.0 Active 68569381 Problem Irritable bowel syndrome without diarrhea K58.9 Active 00435506 Problem Rhinosinusitis J32.9 Active 869639541 Problem Hypertriglyceridemia E78.1 Active 286909906 Problem Pre-diabetes R73.03 Active 516166937 Problem Alternating constipation and diarrhea R19.8 Active 623595127 Problem Body mass index (BMI) of 40.0-44.9 in adult Z68.41 Active 782236200 Problem Morbid (severe) obesity due to excess calories E66.01 Active 302248136 ALLERGIES No Information ENCOUNTERS Encounter Location Date Diagnosis [place] [id number] [address] 16 Aug, 2018 Acute vaginitis N76.0 [place] [id number] [place] [address] Aug, Rhinosinusitis J32.9 ; Bronchitis J40 ; Folliculitis L73.9 and Morbid obesity E66.01 [facility] [id number] [place] [address] Jul, [place] [address] [address] Jul, [facility] [id number] [place] [address] Jun, [facility] [address] [address] Jun, Acute vaginitis N76.0 ; Dermatitis L30.9 ; BMI 40.0-44.9, adult Z68.41 and Morbid obesity E66.01 [facility] [id number] [address] Jun, Vaginal discharge N89.8 ; Urinary tract infection without hematuria, site unspecified N39.0 and BMI 40.0-44.9, adult Z68.41 [place] [id number] [place] [address] May, [place] [address] [address] May, [place] [address] [address] Apr, Urinary tract infection, site not specified N39.0 [place] [id number] [place] [address] Apr, Dysuria R30.0 ; Urinary tract infection, site not specified N39.0 and Hematuria, unspecified R31.9 [place] [id number] [place] [address] Mar, [place] [id number] [place] [address] Mar, Left anterior knee pain M25.562 ; Abscess of buttock, left L02.31 and BMI 40.0-44.9, adult Z68.41 [place] [id number] [place] [address] 12 Mar, 2018 [facility] [address] [address] 13 Feb, 2018 Abrasion of right ear canal, initial encounter S00.411A ; Left wrist pain M25.532 ; Right acute serous otitis media, recurrence not specified H65.01 and BMI 40.0-44.9, adult Z68.41 [place] [id number] [place] [address] Jan, [place] [address] [address] Jan, [facility] [id number] [place] [address] Jan, BMI 40.0-44.9, adult Z68.41 ; Pre-diabetes R73.03 ; Essential hypertension I10 ; Morbid (severe) obesity due to excess calories E66.01 ; Bilateral low back pain without sciatica M54.5 and Heartburn R12 [place] [address] [address] Jan, History of UTI Z87.440 ; Well woman exam with routine gynecological exam Z01.419 ; Screening for breast cancer Z12.31 ; Candidal vaginitis B37.3 and BMI 40.0-44.9, adult Z68.41 [place] [id number] [place] [address] Jan, [facility] [id number] [place] [address] Jan, Dysuria R30.0 ; Acute cystitis with hematuria N30.01 ; Yeast infection B37.9 and BMI 40.0-44.9, adult Z68.41 [place] [id number] [place] [address] Dec, [place] [id number] [place] [address] Dec, [place] [id number] [place] [address] Nov, History of UTI Z87.440 [place] [id number] [place] [address] Nov, UTI symptoms R39.9 ; Acute nasopharyngitis J00 and BMI 40.0-44.9, adult Z68.41 [facility] [address] [address] Nov, [facility] [id number] [place] [address] Nov, Yeast infection involving the vagina and surrounding area B37.3 [facility] [id number] [address] Nov, Yeast infection involving the vagina and surrounding area B37.3 [facility] [id number] [place] [address] Nov, Yeast infection involving the vagina and surrounding area B37.3 ; Body mass index (BMI) of 40.0-44.9 in adult Z68.41 and Morbid (severe) obesity due to excess calories E66.01 [place] [id number] [place] [address] Oct, Abscess of groin, left L02.214 and Pre-diabetes R73.03 [facility] [address], [place] [address] September, Pre-diabetes R73.03 [facility] [id number] [place] [address] Aug, [facility] [address] [address] Jul, Bilateral low back pain without sciatica M54.5 [facility] [address] [address] Jun, [facility] [id number] [place] [address] Jun, [facility] [id number] [address] Jun, [facility] [address] [address] May, [place] [id number] [place] [address] May, Ingrown left greater toenail L60.0 [place] [address] [address] May, [facility] [address] [address] May, Influenza A J10.1 ; Fever R50.9 and Body aches R52 [facility] [address] [address] Apr, [place] [address] [address] Apr, [place] [address] [address] Apr, [place] [address] [address] Apr, Abscess L02.91 and Obesity (BMI 30-39.9) E66.9 [place] [address] [address] Apr, [place] [address] [address] Apr, [place] [address] [address] Mar, Acute non-recurrent maxillary sinusitis J01.00 [place] [id number] [place] [address] Feb, Heartburn R12 [place] [address] [address] Feb, Heartburn R12 ; Low back pain M54.5 ; Essential hypertension I10 ; Bilateral low back pain without sciatica M54.5 ; Anxiety F41.9 ; Pre-diabetes R73.03 ; Other obesity due to excess calories E66.09 ; Alternating constipation and diarrhea R19.8 ; Dyspepsia R10.13 ; Generalized abdominal pain R10.84 ; Rhinosinusitis J32.9 and Boil L02.92 [place] [id number] [place] [address] Jan, Heartburn R12 [place] [address] [address] Jan, [place] [address] [address] Jan, [place] [id number] [place] [address] Jan, Acute seasonal allergic rhinitis due to pollen J30.1 and Irritable bowel syndrome without diarrhea K58.9 [place] [address] [address] Dec, Low back pain M54.5 and Acute cystitis with hematuria N30.01 [place] [id number] [place] [address] Dec, Low back pain M54.5 and Acute cystitis with hematuria N30.01 [place] [id number] [place] [address] Dec, Heartburn R12 ; Essential hypertension I10 ; Acute non-recurrent maxillary sinusitis J01.00 ; Bilateral low back pain without sciatica M54.5 ; Anxiety F41.9 ; Pre-diabetes R73.03 ; Pain in right foot M79.671 ; Pain in left foot M79.672 ; Other obesity due to excess calories E66.09 and Acute cystitis with hematuria N30.01 [place] [id number] [place] [address] Dec, Bilateral low back pain without sciatica M54.5 ; Acute non-recurrent maxillary sinusitis J01.00 and Pre-diabetes R73.03 [place] [id number] [place] [address] Oct, [facility] [place] [id number] [place] [address] Aug, [facility] IN [place] [address] [address] Aug, Acute vaginitis N76.0 ; Urinary frequency R35.0 ; Screen for STD (sexually transmitted disease) Z11.3 and Abscess L02.91 [place] [address] [address] Aug, Plantar wart of right foot B07.0 [place] [address] [address] Jul, Plantar wart of right foot B07.0 [place] [address] [address] Jun, [place] [address] [address] Jun, Heartburn R12 ; Essential hypertension I10 ; Anxiety F41.9 ; Folliculitis L73.9 and Plantar wart of right foot B07.0 [place] [id number] [place] [address] Jun, [facility] [place] [id number] [place] [address] May, Low back pain M54.5 and Other chronic pain G89.29 [place] [id number] [place] [address] May, [place] [address] [address] May, [place] [id number] [place] [address] May, Heartburn R12 ; Bilateral low back pain without sciatica M54.5 ; Essential hypertension I10 ; Long-term use of high-risk medication Z79.899 ; Anxiety F41.9 ; Impacted cerumen of right ear H61.21 ; Folliculitis L73.9 ; High risk bisexual behavior Z72.53 and General medical exam Z00.00 [facility] [id number] [place] [address] May, [facility] [address] [address] May, [facility] [address] [address] Mar, Acute nasopharyngitis J00 ; Acute intractable tension-type headache G44.201 and Cough R05 [place] [address] [address] Jan, [facility] [address] [address] Jan, Abscess L02.91 [facility] [address] [address] Jan, Urinary urgency R39.15 and Urinary tract infection without hematuria, site unspecified N39.0 [place] [address] [address] Jan, [facility] [id number] [place] [address] Jan, [place] [address] [address] Dec, [place] [id number] [place] [address] Dec, Dermatofibroma D23.9 [place] [address] [address] September, [facility] [address] [address] Aug, [facility] [address] [place] [address] Aug, Pain in left knee M25.562 ; Heartburn R12 ; Bilateral low back pain without sciatica M54.5 ; Essential hypertension I10 ; Ingrown left big toenail L60.0 ; Chronic pain G89.29 ; Irritable bowel syndrome with constipation K58.9 and Skin infection L08.9 [facility] [address] [address] Aug, [facility] [address] [address] Jul, [facility] [address] [address] Jun, [facility] [id number] [place] [address] Jun, [facility] [address] [address] Jun, [facility] [id number] [place] [address] Jun, [facility] [id number] [place] [address] Jun, Upper respiratory infection J06.9 ; Bilateral low back pain without sciatica M54.5 and Headache R51 [facility] [id number] [place] [address] May, [facility] [id number] [place] [address] Apr, Bilateral low back pain without sciatica M54.5 ; Upper respiratory infection J06.9 and Yeast dermatitis B37.2 [facility] [id number] [place] [address] Apr, [facility] [id number] [place] [address] Apr, [facility] [id number] [place] [address] Feb, [facility] [id number] [place] [address] Feb, [facility] [id number] [place] [address] Feb, [place] [address] [address] Feb, Essential hypertension I10 ; Heartburn R12 ; Irritable bowel syndrome without diarrhea K58.9 ; Bilateral low back pain, with sciatica presence unspecified M54.5 and Upper respiratory infection J06.9 [place] [id number] [place] [address] Feb, [place] [id number] [place] [address] Feb, Generalized anxiety disorder F41.1 and Grief F43.20 [place] [id number] [place] [address] Jan, [place] [id number] [place] [address] Jan, Back pain 724.5 ; Upper respiratory infection 465.9 ; HTN (hypertension) 401.9 and Dyspepsia 536.8 [place] [id number] [place] [address] Dec, [facility] [id number] [place] [address] Nov, Back pain 724.5 ; Abdominal pain, bilateral lower quadrant 789.03 ; GERD (gastroesophageal reflux disease) 530.81 ; Upper respiratory infection 465.9 ; Dysuria 788.1 and HTN (hypertension) 401.9 [place] [id number] [place] [address] Nov, [place] [id number] [place] [address] Nov, [facility] [address], [place] [address] Nov, [facility] [id number] [place] [address] Nov, Cough 786.2 [facility] [id number] [place] [address] Nov, Cough 786.2 [facility] [id number] [place] [address] Oct, Unspecified episodic mood disorder 296.90 and Anxiety disorder, unspecified 300.00 [facility] [id number] [place] [address] Oct, Abdominal pain, left upper quadrant 789.02 ; Essential hypertension, benign 401.1 ; Irritable bowel syndrome 564.1 ; Abscess 682.9 ; Heartburn 787.1 ; Acute sinusitis, unspecified 461.9 ; Muscle spasm of back 724.8 ; Cough 786.2 and Skin tag 701.9 [facility] [id number] [place] [address] September, [facility] [id number] [place] [address] September, [facility] [address], [place] [address] September, [facility] [address] [place] [address] Aug, [facility] [id number] [place] [address] Aug, [facility] [id number] [place] [address] Jul, [facility] [address], [place] [address] Jul, [facility] [place] [facility] [address] [id number] [place] [address] Jul, [facility] [place] [facility] [address] [id number] [place] [address] Jul, [facility] [place] [facility] [address] [id number] [place] [address] Jul, [facility] [place] [facility] [address] [id number] [place] [address] Jul, [facility] [place] [facility] [address] [id number] [place] [address] Jul, [facility] [place] [facility] [address] [id number] [place] [address] Jul, [facility] [place] [facility] [address] [id number] [place] [address] Jul, [facility] [place] [facility] [address] [id number] [place] [address] Jul, [facility] [place] [facility] [address] [id number] [place] [address] Jul, [facility] [place] [facility] [address] [id number] [place] [address] Jul, [facility] [place] [facility] [address] [id number] [place] [address] Jul, [facility] [place] [facility] [address] [id number] [place] [address] Jul, [facility] [place] [facility] [address] [id number] [place] [address] Jul, [facility] [place] [facility] [address] [id number] [place] [address] Jul, [facility] [place] [facility] [address] [id number] [place] [address] Jul, [facility] [place] [facility] [address] [id number] [place] [address] Jun, 2014 [facility] [place] [facility] [address] [id number] [place] [address] Jun, 2014 [facility] [place] [facility] [address] [id number] [place] [address] Jun, 2014 [facility] [place] [facility] [address] [facility] [id number] [place] [address] Jun, 2014 [facility] [place] [facility] [address] [id number] [place] [address] Jun, 2014 [facility] [place] [facility] [address] [id number] [place] [address] Jun, 2014 [facility] [place] [facility] [address] [facility] [id number] [place] [address] Jun, 2014 [facility] [place] [facility] [address] [facility] [id number] [place] [address] Jun, 2014 [facility] [place] [facility] [address] [facility] [id number] [place] [address] 29 Apr, 2014 [facility] [place] [facility] [address] [facility] [id number] [place] [address] 29 Apr, 2014 [facility] [place] [facility] [address] [facility] [id number] [place] [address] Apr, [facility] [place] [facility] [address] [facility] [id number] [place] [address] 23 Apr, 2014 [facility] [place] [facility] [address] [facility] [id number] [place] [address] 18 Apr, 2014 [facility] [place] [facility] [address] [facility] [id number] [place] [address] 18 Apr, 2014 [facility] [place] [facility] [address] [facility] [id number] [place] [address] 15 Apr, 2014 [facility] [place] [facility] [address] [facility] [id number] [place] [address] 15 Apr, 2014 [facility] [place] [facility] [address] [id number] [place] [address] Apr, [facility] [place] [facility] [address] [id number] [place] [address] Apr, [facility] [place] [facility] [address] [id number] [place] [address] Apr, [facility] [place] [facility] [address] [id number] [place] [address] Apr, [facility] [place] [facility] [address] [id number] [place] [address] Apr, [facility] [place] [facility] [address] [id number] [place] [address] Apr, [facility] [place] [facility] [address] [id number] [place] [address] Apr, [facility] [place] [facility] [address] [id number] [place] [address] Feb, [facility] [place] [facility] [address] [id number] [place] [address] Feb, [facility] [place] [facility] [address] [id number] [place] [address] Feb, [facility] [place] [facility] [address] [id number] [place] [address] Feb, [facility] [place] [facility] [address] [id number] [place] [address] Feb, [facility] [place] [facility] [address] [id number] [place] [address] Feb, [facility] [place] [facility] [address] [id number] [place] [address] Jan, [facility] [place] [facility] [address] [id number] [place] [address] 08 Jan, 2014 [facility] [place] [facility] [address] [id number] [place] [address] Jan, [facility] [place] [facility] [address] [id number] [place] [address] Jan, 2013 [facility] [place] [facility] [address] [id number] [place] [address] Jan, [facility] [place] [facility] [address] [id number] [place] [address] Jan, [facility] [place] [facility] [address] [id number] [place] [address] Dec, [facility] [place] [facility] [address] [id number] [place] [address] Dec, [facility] [place] [facility] [address] [id number] [place] [address] Dec, [facility] [place] [facility] [address] [id number] [place] [address] Dec, [facility] [place] [facility] [address] [id number] [place] [address] Nov, [facility] [place] [facility] [address] [id number] [place] [address] Nov, [facility] [place] [facility] [address] [id number] [place] [address] Nov, [facility] [place] [facility] [address] [id number] [place] [address] Nov, [facility] [place] [facility] [address] [id number] [place] [address] Nov, [facility] [place] [facility] [address] [id number] [place] [address] Nov, [facility] [place] [facility] [address] [id number] [place] [address] Nov, [facility] [place] [facility] [address] [id number] [place] [address] Nov, [facility] [place] [facility] [address] [id number] [place] [address] 30 Oct, 2013 [facility] [place] [facility] [address] [id number] [place] [address] Oct, [facility] [place] [facility] [address] [id number] [place] [address] Oct, [facility] [place] [facility] [address] [id number] [place] [address] Oct, [facility] [place] [facility] [address] [id number] [place] [address] Oct, [facility] [place] [facility] [address] [id number] [place] [address] Oct, [facility] [place] [facility] [address] [id number] [place] [address] Oct, [facility] [place] [facility] [address] [id number] [place] [address] Oct, [facility] [place] [facility] [address] [id number] [place] [address] Oct, [facility] [place] [facility] [address] [id number] [place] [address] Oct, [facility] [place] [facility] [address] [id number] [place] [address] Oct, [facility] [place] [facility] [address] [id number] [place] [address] Oct, [facility] [place] [facility] [address] [id number] [place] [address] Oct, [facility] [place] [facility] [address] [id number] [place] [address] Oct, [facility] [place] [facility] [address] [id number] [place] [address] Oct, [facility] [place] [facility] [address] [id number] [place] [address] Oct, [facility] [place] [facility] [address] [id number] [place] [place] [address] Oct, [facility] [place] [facility] [address] [id number] [place] [address] Oct, [facility] [place] [facility] [address] [id number] [place] [address] Oct, [facility] [place] [facility] [address] [id number] [place] [address] Oct, [facility] [place] [facility] [address] [id number] [place] [address] Oct, [facility] [place] [facility] [address] [id number] [place] [address] Oct, [facility] [place] [facility] [address] [id number] [place] [address] Oct, [facility] [place] [facility] [address] [id number] [place] [address] Oct, [facility] [place] [facility] [address] [id number] [place] [address] Oct, [facility] [place] [facility] [address] [id number] [place] [address] Oct, [facility] [place] [facility] [address] [id number] [place] [address] Oct, [facility] [place] [facility] [address] [id number] [place] [address] Oct, [facility] [place] [facility] [address] [id number] [place] [address] Oct, [facility] [place] [facility] [address] [id number] [place] [address] Oct, [facility] [place] [facility] [address] [id number] [place] [address] September, [facility] [place] [facility] [address] [id number] [place] [address] September, [facility] [address] [id number] [place] [address] September, [facility] [place] [facility] [address] [id number] [place] [address] September, [facility] [place] [facility] [address] [id number] [place] [address] September, [facility] [place] [facility] [address] [id number] [place] [address] September, [facility] [place] [facility] [address] [id number] [place] [address] September, [facility] [place] [facility] [address] [id number] [place] [address] September, [facility] [place] [facility] [address] [id number] [place] [address] September, [facility] [place] [facility] [address] [id number] [place] [address] September, [facility] [place] [facility] [address] [id number] [place] [address] September, [facility] [place] [facility] [address] [id number] [place] [address] September, [facility] [place] [facility] [address] [id number] [place] [address] September, [facility] [place] [facility] [address] [id number] [place] [address] September, [facility] [place] [facility] [address] [id number] [place] [address] September, [facility] [place] [facility] [address] [id number] [place] [address] September, [facility] [place] [facility] [address] [id number] [place] [address] September, [facility] [place] [facility] [address] [id number] [place] [address] September, [facility] [address] [id number] [place] [address] Aug, [facility] [place] [facility] [address] [id number] [place] [address] Aug, [facility] [place] [facility] [address] [id number] [place] [address] Aug, [facility] [place] [facility] [address] [id number] [place] [address] Aug, [facility] [place] [facility] [address] [id number] [place] [address] Aug, [facility] [place] [facility] [address] [id number] [place] [address] Aug, [facility] [place] [facility] [address] [id number] [place] [address] Jul, [facility] [place] [facility] [address] [id number] [place] [address] Jul, [facility] [place] [facility] [address] [id number] [place] [address] Jul, [facility] [place] [facility] [address] [id number] [place] [address] Jul, [facility] [place] [facility] [address] [id number] [place] [address] Jun, [facility] [place] [facility] [address] [id number] [place] [address] Jun, [facility] [place] [facility] [address] [id number] [place] [address] Jun, [facility] [place] [facility] [address] [id number] [place] [address] Jun, [facility] [place] [facility] [address] [id number] [place] [address] 14 Mar, 2013 [facility] [place] [facility] [address] [id number] [place] [address] 14 Mar, 2013 [facility] [place] [facility] [address] [id number] [place] [address] 13 Mar, 2013 [facility] [place] [facility] [address] [id number] [place] [address] Mar, [facility] [place] [facility] [address] [id number] [place] [address] Feb, [facility] [place] [facility] [address] [id number] [place] [address] Feb, [facility] [place] [facility] [address] [id number] [place] [address] Feb, [facility] [place] [facility] [address] [id number] [place] [address] Jan, [facility] [place] [facility] [address] [id number] [place] [address] Jan, [facility] [place] [facility] [address] [id number] [place] [address] 12 Jan, 2013 [facility] [place] [facility] [address] [id number] [place] [address] 05 Jan, 2013 [facility] [place] [facility] [address] [id number], [place] [address] Dec, [facility] [place] [facility] [address] [id number], [place] [address] 15 Dec, 2012 [facility] [place] [facility] [address] [id number] [place] [address] Dec, [facility] [place] [facility] [address] [id number], [place] [address] Dec, [facility] [place] [facility] [address] [id number] [place] [address] Nov, [facility] [place] [facility] [address] [id number] [place] [address] Nov, [facility] [place] [facility] [address] [id number] [place] [address] Nov, [facility] [place] [facility] [address] [id number] [place] [address] Nov, [facility] [place] [facility] [address] [id number] [place] [address] Nov, [facility] [place] [facility] [address] [id number] [place] [address] Nov, [facility] [place] [facility] [address] [id number] [place] [address] Oct, [facility] [place] [facility] [address] [id number] [place] [address] Oct, [facility] [place] [facility] [address] [id number] [place] [address] Oct, [facility] [place] [facility] [address] [id number] [place] [address] Oct, [facility] [place] [facility] [address] [id number] [place] [address] 17 Oct, 2012 [facility] [place] [facility] [address] [id number] [place] [address] 16 Oct, 2012 [facility] [place] [facility] [address] [id number] [place] [address] 14 Oct, 2012 [facility] [place] [facility] [address] [id number] [place] [address] 13 Oct, 2012 [facility] [place] [facility] [address] [id number] [place] [address] Oct, [facility] [place] [facility] [address] [id number] [place] [address] 07 Oct, 2012 [facility] [place] [facility] [address] [id number] [place] [address] September, [facility] [place] [facility] [address] [id number] [place] [address] September, [facility] [address] [id number] [place] [address] September, [facility] [address] [id number] [place] [address] Aug, [facility] [address] [id number] [place] [address] Aug, [facility] [address] [id number] [place] [address] Aug, [facility] [address] [id number] [place] [address] Aug, [facility] [address] [id number] [place] [address] Jul, [facility] [address] [id number] [place] [address] Jul, [facility] [address] [id number] [place] [address] Jul, [facility] [address] [id number] [place] [address] Jul, [facility] [address] [id number] [place] [address] Jul, [facility] [address] [id number] [place] [address] Jul, [facility] [address] [id number] [place] [address] May, [facility] [place] [facility] [address] [id number] [place] [address] May, [facility] [place] [facility] [address] [id number] [place] [address] May, [facility] [address] [id number] [place] [address] May, [facility] [address] [id number] [place] [address] May, [facility] [place] [facility] [address] [id number] [place] [address] May, [facility] [place] [facility] [address] [id number] [place] [address] May, [facility] [place] [facility] [address] [id number] [place] [address] 18 May, 2012 [facility] [address] [id number] [place] [address] May, [facility] [place] [facility] [address] [id number] [place] [address] 17 May, 2012 [facility] [address] [id number] [place] [address] May, [facility] [place] [facility] [address] [id number] [place] [address] Apr, [facility] [address] [id number] [place] [address] Apr, [facility] [place] [facility] [address] [id number] [place] [address] Apr, [facility] [place] [facility] [address] [id number] [place] [address] Apr, [facility] [place] [facility] [address] [id number] [place] [address] Apr, [facility] [place] [facility] [address] [id number] [place] [address] Apr, [facility] [place] [facility] [address] [id number] [place] [address] Mar, [facility] [place] [facility] [address] [id number] [place] [address] Mar, [facility] [place] [facility] [address] [id number] [place] [address] 08 Mar, 2012 [facility] [place] [facility] [address] [id number] [place] [address] Mar, [facility] [place] [facility] [address] [id number] [place] [address] Mar, [facility] [place] [facility] [address] [id number] [place] [address] Mar, [facility] [place] [facility] [address] [id number] [place] [address] Mar, [facility] [place] [facility] [address] [id number] [place] [address] Mar, [facility] [place] [facility] [address] [id number] [place] [address] Feb, [facility] [place] [facility] [address] [id number] [place] [address] Feb, [facility] [place] [facility] [address] [id number] [place] [address] 16 Feb, 2012 [facility] [place] [facility] [address] [facility] [id number] [place] [address] 15 Feb, 2012 [facility] [place] [facility] [address] [facility] [id number] [place] [address] 15 Feb, 2012 [facility] [place] [facility] [address] [facility] [id number] [place] [address] 13 Feb, 2012 [facility] [place] [facility] [address] [id number], [place] [address] Feb, [facility] [place] [facility] [address] [id number] [place] [address] Feb, [facility] [place] [facility] [address] [facility] [id number] [place] [address] Feb, [facility] [place] [facility] [address] [facility] [id number] [place] [address] Feb, [facility] [place] [facility] [address] [id number] [place] [address] Feb, [facility] [place] [facility] [address] [id number] [place] [address] Feb, [facility] [place] [facility] [address] [id number] [place] [address] Feb, [facility] [place] [facility] [address] [id number] [place] [address] Feb, [facility] [place] [facility] [address] [id number] [place] [address] Feb, [facility] [place] [facility] [address] [id number] [place] [address] Feb, [facility] [place] [facility] [address] [id number] [place] [address] Feb, [facility] [place] [facility] [address] [id number] [place] [address] Feb, [facility] [place] [facility] [address] [id number] [place] [address] 19 Jan, 2012 [facility] [place] [facility] [address] [id number], [place] [address] 13 Jan, 2012 [facility] [place] [facility] [address] [id number], [place] [address] 11 Jan, 2012 [facility] [place] [facility] [address] [id number], [place] [address] 10 Jan, 2012 [facility] [place] [facility] [address] [id number] [place] [address] 05 Jan, 2012 [facility] [place] [facility] [address] [id number] [place] [address] Dec, [facility] [place] [facility] [address] [id number], [place] [address] Dec, [facility] [place] [facility] [address] [id number], [place] [address] Dec, [facility] [place] [facility] [address] [id number] [place] [address] Dec, [facility] [place] [facility] [address] [id number] [place] [address] Dec, [facility] [place] [facility] [address] [id number] [place] [address] Dec, [facility] [place] [facility] [address] [id number] [place] [address] Nov, [facility] [place] [facility] [address] [id number] [place] [address] Nov, [facility] [place] [facility] [address] [id number] [place] [address] Nov, [facility] [place] [facility] [address] [id number] [place] [address] Nov, [facility] [place] [facility] [address] [id number] [place] [address] Nov, [facility] [place] [facility] [address] [id number] [place] [address] Oct, [facility] [place] [facility] [address] [id number] [place] [address] Oct, [facility] [place] [facility] [address] [id number] [place] [address] Oct, [facility] [place] [facility] [address] [id number] [place] [address] September, [facility] [place] [facility] [address] [id number] [place] [address] September, [facility] [place] [facility] [address] [id number] [place] [address] September, [facility] [place] [facility] [address] [id number] [place] [address] September, [facility] [place] [facility] [address] [id number] [place] [address] September, [facility] [address] [id number] [place] [address] September, [facility] [place] [facility] [address] [id number] [place] [address] Aug, [facility] [place] [facility] [address] [id number] [place] [address] Aug, [facility] [place] [facility] [address] [id number] [place] [address] Aug, [facility] [place] [facility] [address] [id number] [place] [address] Jun, [facility] [place] [facility] [address] [id number] [place] [address] Jun, [facility] [place] [facility] [address] [id number] [place] [address] Jun, [facility] [place] [facility] [address] [id number] [place] [address] Jun, [facility] [place] [facility] [address] [id number] [place] [address] May, [facility] [place] [facility] [address] [id number] [place] [address] May, [facility] [place] [facility] [address] [id number] [place] [address] May, [facility] [place] [facility] [address] [id number] [place] [address] May, [facility] [place] [facility] [address] [id number] [place] [address] May, [facility] [place] [facility] [address] [id number] [place] [address] Apr, [facility] [place] [facility] [address] [id number], [place] [address] 20 Apr, 2011 [facility] [place] [facility] [address] [id number] [place] [address] Apr, [facility] [place] [facility] [address] [id number] [place] [address] Apr, [facility] [place] [facility] [address] [id number] [place] [address] Apr, [facility] [place] [facility] [address] [id number], [place] [address] 16 Apr, 2011 [facility] [place] [facility] [address] [id number] [place] [address] Apr, [facility] [place] [facility] [address] [id number] [place] [address] Mar, [facility] [place] [facility] [address] [id number] [place] [address] Mar, [facility] [place] [facility] [address] [id number], [place] [address] 15 Mar, 2011 [facility] [place] [facility] [address] [id number], [place] [address] Feb, [facility] [place] [facility] [address] [id number], [place] [address] 24 Feb, 2011 [facility] [place] [facility] [address] [id number], [place] [address] Feb, [facility] [place] [facility] [address] [id number], [place] [address] Feb, [facility] [place] [facility] [address] [id number], [place] [address] 18 Feb, 2011 [facility] [place] [facility] [address] [id number], [place] [address] 17 Feb, 2011 [facility] [place] [facility] [address] [id number], [place] [address] 13 Jan, 2011 [facility] [place] [facility] [address] [id number] [place] [address] 12 Jan, 2011 [facility] [address] [id number] [place] [address] September, [facility] [address] [id number] [place] [address] 17 Jun, 2010 [facility] [address] [id number] [place] [address] Apr, [facility] [address] [id number] [place] [address] Apr, [facility] [address] [id number] [place] [address], [place] [address] Apr, [facility] [address] [id number] [place] [address] Apr, [facility] [address] [id number] [place] [address] Apr, [facility] [address] [id number] [place] [address] 30 Mar, 2010 [facility] [address] [id number] [place] [address] 24 Mar, 2010 [facility] [address] [facility] [id number] [place] [address] Mar, [facility] [address] [id number] [place] [address] 05 Mar, 2010 [facility] [address] [id number] [place] [address] 27 Feb, 2010 [facility] [address] [id number] [place] [address] 15 Jan, 2010 [facility] [address] [id number] [place] [address] 07 Mar, 2009 [facility] [address] [id number] [place] [address] 15 Jan, 2009 [facility] [address] [facility] [id number] [place] [address] Oct, [facility] [address] [facility] [id number] [place] [address] Apr, IMMUNIZATIONS No Known Immunizations SOCIAL HISTORY Never Assessed REASON FOR VISIT EMR-[facility] PLAN OF CARE VITAL SIGNS MEDICATIONS Unknown [...]
--- OUTSIDE RECORDS SUMMARY | 2018-09-28 03:56 | XMS REPORT ---
Author Author Migration, Doctor Organization [facility] [facility] Address Unknown Phone Unavailable Care Team Providers Care Outpatient Pharmacy Manager Name Role Phone Migration, Doctor Unavailable Unavailable PROBLEMS Type Condition ICD9-CM Code [id number] Code Onset Dates Condition Status SNOMED Code Problem Essential hypertension I10 Active 96115293 Problem Bilateral low back pain without sciatica M54.5 Active 506207634 Problem Anxiety F41.9 Active 31358140 Problem Dysuria R30.0 Active 66902599 Problem Irritable bowel syndrome without diarrhea K58.9 Active 93832530 Problem Rhinosinusitis J32.9 Active 655718434 Problem Hypertriglyceridemia E78.1 Active 858505758 Problem Pre-diabetes R73.03 Active 299930510 Problem Alternating constipation and diarrhea R19.8 Active 676818541 Problem Body mass index (BMI) of 40.0-44.9 in adult Z68.41 Active 403086093 Problem Morbid (severe) obesity due to excess calories E66.01 Active 434929755 ALLERGIES No Information ENCOUNTERS Encounter Location Date Diagnosis [facility] [place] [id number] [place] [address] 16 Aug, 2018 Acute vaginitis N76.0 [place] [id number] [place] [address] Aug, Rhinosinusitis J32.9 ; Bronchitis J40 ; Folliculitis L73.9 and Morbid obesity E66.01 [facility] [id number] [place] [address] Jul, [place] [address] [address] Jul, [facility] [id number] [place] [address] Jun, [facility] [address] [address] Jun, Acute vaginitis N76.0 ; Dermatitis L30.9 ; BMI 40.0-44.9, adult Z68.41 and Morbid obesity E66.01 [facility] [id number] [place] [address] Jun, Vaginal discharge N89.8 ; Urinary tract infection without hematuria, site unspecified N39.0 and BMI 40.0-44.9, adult Z68.41 [place] [id number] [place] [address] May, [place] [address] [address] May, [place] [address] [address] Apr, Urinary tract infection, site not specified N39.0 [place] [id number] [place] [address] Apr, Dysuria R30.0 ; Urinary tract infection, site not specified N39.0 and Hematuria, unspecified R31.9 [place] [place] [id number] [place] [address] Mar, [place] [id number] [place] [address] Mar, Left anterior knee pain M25.562 ; Abscess of buttock, left L02.31 and BMI 40.0-44.9, adult Z68.41 [place] [place] [id number] [place] [address] 12 Mar, 2018 [facility] [address] [address] 13 Feb, 2018 Abrasion of right ear canal, initial encounter S00.411A ; Left wrist pain M25.532 ; Right acute serous otitis media, recurrence not specified H65.01 and BMI 40.0-44.9, adult Z68.41 [place] [id number] [place] [address] Jan, [place] [address] [address] Jan, [facility] [id number] [place] [address] Jan, BMI 40.0-44.9, adult Z68.41 ; Pre-diabetes R73.03 ; Essential hypertension I10 ; Morbid (severe) obesity due to excess calories E66.01 ; Bilateral low back pain without sciatica M54.5 and Heartburn R12 [place] [address] [address] Jan, History of UTI Z87.440 ; Well woman exam with routine gynecological exam Z01.419 ; Screening for breast cancer Z12.31 ; Candidal vaginitis B37.3 and BMI 40.0-44.9, adult Z68.41 [place] [place] [id number] [place] [address] Jan, [facility] [id number] [place] [address] Jan, Dysuria R30.0 ; Acute cystitis with hematuria N30.01 ; Yeast infection B37.9 and BMI 40.0-44.9, adult Z68.41 [facility] [place] [id number] [place] [address] Dec, [facility] [place] [id number] [place] [address] Dec, [facility] [place] [id number] [place] [address] Nov, History of UTI Z87.440 [facility] [place] [id number] [place] [address] Nov, UTI symptoms R39.9 ; Acute nasopharyngitis J00 and BMI 40.0-44.9, adult Z68.41 [facility] [address] [address] Nov, [facility] [id number] [place] [address] Nov, Yeast infection involving the vagina and surrounding area B37.3 [facility] [id number] [address] Nov, Yeast infection involving the vagina and surrounding area B37.3 [facility] [id number] [place] [address] Nov, Yeast infection involving the vagina and surrounding area B37.3 ; Body mass index (BMI) of 40.0-44.9 in adult Z68.41 and Morbid (severe) obesity due to excess calories E66.01 [facility] [place] [address] [place] [address] Oct, Abscess of groin, left L02.214 and Pre-diabetes R73.03 [facility] [address] [address] September, Pre-diabetes R73.03 [facility] [id number] [place] [address] Aug, [facility] [address], [place] [address] Jul, Bilateral low back pain without sciatica M54.5 [facility] [address] [address] Jun, [facility] [id number] [place] [address] Jun, [facility] [id number] [address] Jun, [facility] [address], [place] [address] May, [place] [id number] [place] [address] May, Ingrown left greater toenail L60.0 [place] [address] [address] May, [facility] [address] [address] May, Influenza A J10.1 ; Fever R50.9 and Body aches R52 [facility] [address] [address] Apr, [place] [address] [address] Apr, [place] [address] [address] Apr, [place] [address] [address] Apr, Abscess L02.91 and Obesity (BMI 30-39.9) E66.9 [place] [address] [address] Apr, [place] [address] [address] Apr, [place] [address] [address] Mar, Acute non-recurrent maxillary sinusitis J01.00 [place] [place] [id number] [place] [address] Feb, Heartburn R12 [place] [address] [address] Feb, Heartburn R12 ; Low back pain M54.5 ; Essential hypertension I10 ; Bilateral low back pain without sciatica M54.5 ; Anxiety F41.9 ; Pre-diabetes R73.03 ; Other obesity due to excess calories E66.09 ; Alternating constipation and diarrhea R19.8 ; Dyspepsia R10.13 ; Generalized abdominal pain R10.84 ; Rhinosinusitis J32.9 and Boil L02.92 [place] [place] [id number] [place] [address] Jan, Heartburn R12 [place] [address] [address] Jan, [place] [place] [address] [address] Jan, [place] [place] [id number] [place] [address] Jan, Acute seasonal allergic rhinitis due to pollen J30.1 and Irritable bowel syndrome without diarrhea K58.9 [place] [place] [address] [address] Dec, Low back pain M54.5 and Acute cystitis with hematuria N30.01 [place] [place] [id number] [place] [address] Dec, Low back pain M54.5 and Acute cystitis with hematuria N30.01 [place] [place] [id number] [place] [address] Dec, Heartburn R12 ; Essential hypertension I10 ; Acute non-recurrent maxillary sinusitis J01.00 ; Bilateral low back pain without sciatica M54.5 ; Anxiety F41.9 ; Pre-diabetes R73.03 ; Pain in right foot M79.671 ; Pain in left foot M79.672 ; Other obesity due to excess calories E66.09 and Acute cystitis with hematuria N30.01 [place] [place] [id number] [place] [address] Dec, Bilateral low back pain without sciatica M54.5 ; Acute non-recurrent maxillary sinusitis J01.00 and Pre-diabetes R73.03 [place] [place] [id number] [place] [address] Oct, [facility] [place] [id number] [place] [address] Aug, [facility] [place] [address] [address] Aug, Acute vaginitis N76.0 ; Urinary frequency R35.0 ; Screen for STD (sexually transmitted disease) Z11.3 and Abscess L02.91 [place] [address] [address] Aug, Plantar wart of right foot B07.0 [place] [address] [address] Jul, Plantar wart of right foot B07.0 [place] [address] [address] Jun, [place] [address] [address] Jun, Heartburn R12 ; Essential hypertension I10 ; Anxiety F41.9 ; Folliculitis L73.9 and Plantar wart of right foot B07.0 [place] [id number] [place] [address] Jun, [facility] [place] [id number] [place] [address] May, Low back pain M54.5 and Other chronic pain G89.29 [place] [id number] [place] [address] May, [place] [address] [address] May, [place] [id number] [place] [address] May, Heartburn R12 ; Bilateral low back pain without sciatica M54.5 ; Essential hypertension I10 ; Long-term use of high-risk medication Z79.899 ; Anxiety F41.9 ; Impacted cerumen of right ear H61.21 ; Folliculitis L73.9 ; High risk bisexual behavior Z72.53 and General medical exam Z00.00 [facility] [id number] [place] [address] May, [facility] [address] [address] May, [facility] [address] [address] Mar, Acute nasopharyngitis J00 ; Acute intractable tension-type headache G44.201 and Cough R05 [place] [address] [address] Jan, [facility] [address] [address] Jan, Abscess L02.91 [facility] [address] [address] Jan, Urinary urgency R39.15 and Urinary tract infection without hematuria, site unspecified N39.0 [place] [address] [address] Jan, [facility] [id number] [place] [address] Jan, [place] [address] [address] Dec, [place] [id number] [place] [address] Dec, Dermatofibroma D23.9 [place] [address] [address] September, [facility] [address] [address] Aug, [facility] [address] [place] [address] Aug, Pain in left knee M25.562 ; Heartburn R12 ; Bilateral low back pain without sciatica M54.5 ; Essential hypertension I10 ; Ingrown left big toenail L60.0 ; Chronic pain G89.29 ; Irritable bowel syndrome with constipation K58.9 and Skin infection L08.9 [facility] [address] [address] Aug, [facility] [address] [address] Jul, [facility] [address] [address] Jun, [facility] [id number] [place] [address] Jun, [facility] [address] [address] Jun, [facility] [id number] [place] [address] Jun, [facility] [id number] [place] [address] Jun, Upper respiratory infection J06.9 ; Bilateral low back pain without sciatica M54.5 and Headache R51 [facility] [id number] [place] [address] May, [facility] [id number] [place] [address] Apr, Bilateral low back pain without sciatica M54.5 ; Upper respiratory infection J06.9 and Yeast dermatitis B37.2 [facility] [id number] [place] [address] Apr, [facility] [id number] [place] [address] Apr, [facility] [id number] [place] [address] Feb, [facility] [id number] [place] [address] Feb, [facility] [id number] [place] [address] Feb, [place] [address] [address] Feb, Essential hypertension I10 ; Heartburn R12 ; Irritable bowel syndrome without diarrhea K58.9 ; Bilateral low back pain, with sciatica presence unspecified M54.5 and Upper respiratory infection J06.9 [place] [id number] [place] [address] Feb, [place] [id number] [place] [address] Feb, Generalized anxiety disorder F41.1 and Grief F43.20 [place] [id number] [place] [address] Jan, [place] [id number] [place] [address] Jan, Back pain 724.5 ; Upper respiratory infection 465.9 ; HTN (hypertension) 401.9 and Dyspepsia 536.8 [place] [id number] [place] [address] Dec, [facility] [id number] [place] [address] Nov, Back pain 724.5 ; Abdominal pain, bilateral lower quadrant 789.03 ; GERD (gastroesophageal reflux disease) 530.81 ; Upper respiratory infection 465.9 ; Dysuria 788.1 and HTN (hypertension) 401.9 [place] [id number] [place] [address] Nov, [place] [id number] [place] [address] Nov, [facility] [address], [place] [address] Nov, [facility] [id number] [place] [address] Nov, Cough 786.2 [facility] [id number] [place] [address] Nov, Cough 786.2 [facility] [id number] [place] [address] Oct, Unspecified episodic mood disorder 296.90 and Anxiety disorder, unspecified 300.00 [facility] [id number] [place] [address] Oct, Abdominal pain, left upper quadrant 789.02 ; Essential hypertension, benign 401.1 ; Irritable bowel syndrome 564.1 ; Abscess 682.9 ; Heartburn 787.1 ; Acute sinusitis, unspecified 461.9 ; Muscle spasm of back 724.8 ; Cough 786.2 and Skin tag 701.9 [facility] [address] [place] [address] September, [facility] [id number] [place] [address] September, [facility] [address], [place] [address] September, [facility] [address], [place] [address] Aug, [facility] [id number] [place] [address] Aug, [facility] [id number] [place] [address] Jul, [facility] [address], [place] [address] Jul, [facility] [place] [facility] [address] [id number] [place] [address] Jul, [facility] [place] [facility] [address] [id number] [place] [address] Jul, [facility] [place] [facility] [address] [id number] [place] [address] Jul, [facility] [place] [facility] [address] [id number] [place] [address] Jul, [facility] [place] [facility] [address] [id number] [place] [address] Jul, [facility] [place] [facility] [address] [id number] [place] [address] Jul, [facility] [place] [facility] [address] [id number] [place] [address] Jul, [facility] [place] [facility] [address] [id number] [place] [address] Jul, [facility] [place] [facility] [address] [id number] [place] [address] Jul, [facility] [place] [facility] [address] [id number] [place] [address] Jul, [facility] [place] [facility] [address] [id number] [place] [address] Jul, [facility] [place] [facility] [address] [id number] [place] [address] Jul, [facility] [place] [facility] [address] [id number] [place] [address] Jul, [facility] [place] [facility] [address] [id number] [place] [address] Jul, [facility] [place] [facility] [address] [id number] [place] [address] Jul, [facility] [place] [facility] [address] [id number] [place] [address] Jun, 2014 [facility] [place] [facility] [address] [id number] [place] [address] Jun, 2014 [facility] [place] [facility] [address] [id number] [place] [address] Jun, 2014 [facility] [place] [facility] [address] [facility] [id number] [place] [address] Jun, 2014 [facility] [place] [facility] [address] [id number] [place] [address] Jun, 2014 [facility] [place] [facility] [address] [id number] [place] [address] Jun, 2014 [facility] [place] [facility] [address] [facility] [id number] [place] [address] Jun, 2014 [facility] [place] [facility] [address] [facility] [id number] [place] [address] Jun, 2014 [facility] [place] [facility] [address] [facility] [id number] [place] [address] 29 Apr, 2014 [facility] [place] [facility] [address] [facility] [id number] [place] [address] 29 Apr, 2014 [facility] [place] [facility] [address] [facility] [id number] [place] [address] Apr, [facility] [place] [facility] [address] [facility] [id number] [place] [address] 23 Apr, 2014 [facility] [place] [facility] [address] [facility] [id number] [place] [address] 18 Apr, 2014 [facility] [place] [facility] [address] [facility] [id number] [place] [address] 18 Apr, 2014 [facility] [place] [facility] [address] [facility] [id number] [place] [address] 15 Apr, 2014 [facility] [place] [facility] [address] [facility] [id number] [place] [address] 15 Apr, 2014 [facility] [place] [facility] [address] [id number] [place] [address] Apr, [facility] [place] [facility] [address] [id number] [place] [address] Apr, [facility] [place] [facility] [address] [id number] [place] [address] Apr, [facility] [place] [facility] [address] [id number] [place] [address] Apr, [facility] [place] [facility] [address] [id number] [place] [address] Apr, [facility] [place] [facility] [address] [id number] [place] [address] Apr, [facility] [place] [facility] [address] [id number] [place] [address] Apr, [facility] [place] [facility] [address] [id number] [place] [address] Feb, [facility] [place] [facility] [address] [id number] [place] [address] Feb, [facility] [place] [facility] [address] [id number] [place] [address] Feb, [facility] [place] [facility] [address] [id number] [place] [address] Feb, [facility] [place] [facility] [address] [id number] [place] [address] Feb, [facility] [place] [facility] [address] [id number] [place] [address] Feb, [facility] [place] [facility] [address] [id number] [place] [address] Jan, [facility] [place] [facility] [address] [id number] [place] [address] 08 Jan, 2014 [facility] [place] [facility] [address] [id number] [place] [address] Jan, [facility] [place] [facility] [address] [id number] [place] [address] Jan, 2013 [facility] [place] [facility] [address] [id number] [place] [address] Jan, [facility] [place] [facility] [address] [id number] [place] [address] Jan, [facility] [place] [facility] [address] [id number] [place] [address] Dec, [facility] [place] [facility] [address] [id number] [place] [address] Dec, [facility] [place] [facility] [address] [id number] [place] [address] Dec, [facility] [place] [facility] [address] [id number] [place] [address] Dec, [facility] [place] [facility] [address] [id number] [place] [address] Nov, [facility] [place] [facility] [address] [id number] [place] [address] Nov, [facility] [place] [facility] [address] [id number] [place] [address] Nov, [facility] [place] [facility] [address] [id number] [place] [address] Nov, [facility] [place] [facility] [address] [id number] [place] [address] Nov, [facility] [place] [facility] [address] [id number] [place] [address] Nov, [facility] [place] [facility] [address] [id number] [place] [address] Nov, [facility] [place] [facility] [address] [id number] [place] [address] Nov, [facility] [place] [facility] [address] [id number] [place] [address] 30 Oct, 2013 [facility] [place] [facility] [address] [id number] [place] [address] Oct, [facility] [place] [facility] [address] [id number] [place] [address] Oct, [facility] [place] [facility] [address] [id number] [place] [address] Oct, [facility] [place] [facility] [address] [id number] [place] [address] Oct, [facility] [place] [facility] [address] [id number] [place] [address] Oct, [facility] [place] [facility] [address] [id number] [place] [address] Oct, [facility] [place] [facility] [address] [id number] [place] [address] Oct, [facility] [place] [facility] [address] [id number] [place] [address] Oct, [facility] [place] [facility] [address] [id number] [place] [address] Oct, [facility] [place] [facility] [address] [id number] [place] [address] Oct, [facility] [place] [facility] [address] [id number] [place] [address] Oct, [facility] [place] [facility] [address] [id number] [place] [address] Oct, [facility] [place] [facility] [address] [address] [id number] [place] [address] Oct, [facility] [place] [facility] [address] [id number] [place] [address] Oct, [facility] [place] [facility] [address] [id number] [place] [address] Oct, [facility] [place] [facility] [address] [id number] [place] [address] Oct, [facility] [place] [facility] [address] [id number] [place] [address] Oct, [facility] [place] [facility] [address] [id number] [place] [address] Oct, [facility] [place] [facility] [address] [id number] [place] [address] Oct, [facility] [place] [facility] [address] [id number] [place] [address] Oct, [facility] [place] [facility] [address] [id number] [place] [address] Oct, [facility] [place] [facility] [address] [id number] [place] [address] Oct, [facility] [place] [facility] [address] [id number] [place] [address] Oct, [facility] [place] [facility] [address] [id number] [place] [address] Oct, [facility] [place] [facility] [address] [id number] [place] [address] Oct, [facility] [place] [facility] [address] [id number] [place] [address] Oct, [facility] [place] [facility] [address] [id number] [place] [address] Oct, [facility] [place] [facility] [address] [id number] [place] [address] Oct, [facility] [place] [facility] [address] [id number] [place] [address] Oct, [facility] [place] [facility] [address] [id number] [place] [address] September, [facility] [place] [facility] [address] [id number] [place] [address] September, [facility] [address] [id number] [place] [address] September, [facility] [place] [facility] [address] [id number] [place] [address] September, [facility] [place] [facility] [address] [id number] [place] [address] September, [facility] [place] [facility] [address] [id number] [place] [address] September, [facility] [place] [facility] [address] [id number] [place] [address] September, [facility] [place] [facility] [address] [id number] [place] [address] September, [facility] [place] [facility] [address] [id number] [place] [address] September, [facility] [place] [facility] [address] [id number] [place] [address] September, [facility] [place] [facility] [address] [id number] [place] [address] September, [facility] [place] [facility] [address] [id number] [place] [address] September, [facility] [place] [facility] [address] [id number] [place] [address] September, [facility] [place] [facility] [address] [id number] [place] [address] September, [facility] [place] [facility] [address] [id number] [place] [address] September, [facility] [place] [facility] [address] [id number] [place] [address] September, [facility] [place] [facility] [address] [id number] [place] [address] September, [facility] [place] [facility] [address] [id number] [place] [address] September, [facility] [address] [id number] [place] [address] Aug, [facility] [place] [facility] [address] [id number] [place] [address] Aug, [facility] [place] [facility] [address] [id number] [place] [address] Aug, [facility] [place] [facility] [address] [id number] [place] [address] Aug, [facility] [place] [facility] [address] [id number] [place] [address] Aug, [facility] [place] [facility] [address] [id number] [place] [address] Aug, [facility] [place] [facility] [address] [id number] [place] [address] Jul, [facility] [place] [facility] [address] [id number] [place] [address] Jul, [facility] [place] [facility] [address] [id number] [place] [address] Jul, [facility] [place] [facility] [address] [id number] [place] [address] Jul, [facility] [place] [facility] [address] [id number] [place] [address] Jun, [facility] [place] [facility] [address] [id number] [place] [address] Jun, [facility] [place] [facility] [address] [id number] [place] [address] Jun, [facility] [place] [facility] [address] [id number] [place] [address] Jun, [facility] [place] [facility] [address] [id number] [place] [address] 14 Mar, 2013 [facility] [place] [facility] [address] [id number] [place] [address] 14 Mar, 2013 [facility] [place] [facility] [address] [id number] [place] [address] 13 Mar, 2013 [facility] [place] [facility] [address] [id number] [place] [address] Mar, [facility] [place] [facility] [address] [id number] [place] [address] Feb, [facility] [place] [facility] [address] [id number] [place] [address] Feb, [facility] [place] [facility] [address] [id number] [place] [address] Feb, [facility] [place] [facility] [address] [id number] [place] [address] Jan, [facility] [place] [facility] [address] [id number] [place] [address] Jan, [facility] [place] [facility] [address] [id number] [place] [address] 12 Jan, 2013 [facility] [place] [facility] [address] [id number] [place] [address] 05 Jan, 2013 [facility] [place] [facility] [address] [id number], [place] [address] Dec, [facility] [place] [facility] [address] [id number], [place] [address] 15 Dec, 2012 [facility] [place] [facility] [address] [id number] [place] [address] Dec, [facility] [place] [facility] [address] [id number], [place] [address] Dec, [facility] [place] [facility] [address] [id number] [place] [address] Nov, [facility] [place] [facility] [address] [id number] [place] [address] Nov, [facility] [place] [facility] [address] [id number] [place] [address] Nov, [facility] [place] [facility] [address] [id number] [place] [address] Nov, [facility] [place] [facility] [address] [id number] [place] [address] Nov, [facility] [place] [facility] [address] [id number] [place] [address] Nov, [facility] [place] [facility] [address] [id number] [place] [address] Oct, [facility] [place] [facility] [address] [id number] [place] [address] Oct, [facility] [place] [facility] [address] [id number] [place] [address] Oct, [facility] [place] [facility] [address] [id number] [place] [address] Oct, [facility] [place] [facility] [address] [id number] [place] [address] 17 Oct, 2012 [facility] [place] [facility] [address] [id number] [place] [address] 16 Oct, 2012 [facility] [place] [facility] [address] [id number] [place] [address] 14 Oct, 2012 [facility] [place] [facility] [address] [id number] [place] [address] 13 Oct, 2012 [facility] [place] [facility] [address] [id number] [place] [address] Oct, [facility] [place] [facility] [address] [id number] [place] [address] 07 Oct, 2012 [facility] [place] [facility] [address] [id number] [place] [address] September, [facility] [place] [facility] [address] [id number] [place] [address] September, [facility] [address] [id number] [place] [address] September, [facility] [address] [id number] [place] [address] Aug, [facility] [address] [id number] [place] [address] Aug, [facility] [address] [id number] [place] [address] Aug, [facility] [address] [id number] [place] [address] Aug, [facility] [address] [id number] [place] [address] Jul, [facility] [address] [id number] [place] [address] Jul, [facility] [address] [id number] [place] [address] Jul, [facility] [address] [id number] [place] [address] Jul, [facility] [address] [id number] [place] [address] Jul, [facility] [address] [id number] [place] [address] Jul, [facility] [address] [id number] [place] [address] May, [facility] [place] [facility] [address] [id number] [place] [address] May, [facility] [place] [facility] [address] [id number] [place] [address] May, [facility] [address] [id number] [place] [address] May, [facility] [address] [id number] [place] [address] May, [facility] [place] [facility] [address] [id number] [place] [address] May, [facility] [place] [facility] [address] [id number] [place] [address] May, [facility] [place] [facility] [address] [id number] [place] [address] 18 May, 2012 [facility] [address] [id number] [place] [address] May, [facility] [place] [facility] [address] [id number] [place] [address] 17 May, 2012 [facility] [address] [id number] [place] [address] May, [facility] [place] [facility] [address] [id number] [place] [address] Apr, [facility] [address] [id number] [place] [address] Apr, [facility] [place] [facility] [address] [id number] [place] [address] Apr, [facility] [place] [facility] [address] [id number] [place] [address] Apr, [facility] [place] [facility] [address] [id number] [place] [address] Apr, [facility] [place] [facility] [address] [id number] [place] [address] Apr, [facility] [place] [facility] [address] [id number] [place] [address] Mar, [facility] [place] [facility] [address] [id number] [place] [address] Mar, [facility] [place] [facility] [address] [id number] [place] [address] 08 Mar, 2012 [facility] [place] [facility] [address] [id number] [place] [address] Mar, [facility] [place] [facility] [address] [id number] [place] [address] Mar, [facility] [place] [facility] [address] [id number] [place] [address] Mar, [facility] [place] [facility] [address] [id number] [place] [address] Mar, [facility] [place] [facility] [address] [id number] [place] [address] Mar, [facility] [place] [facility] [address] [id number] [place] [address] Feb, [facility] [place] [facility] [address] [id number] [place] [address] Feb, [facility] [place] [facility] [address] [id number] [place] [address] 16 Feb, 2012 [facility] [place] [facility] [address] [facility] [id number] [place] [address] 15 Feb, 2012 [facility] [place] [facility] [address] [facility] [id number] [place] [address] 15 Feb, 2012 [facility] [place] [facility] [address] [facility] [id number] [place] [address] 13 Feb, 2012 [facility] [place] [facility] [address] [id number], [place] [address] Feb, [facility] [place] [facility] [address] [id number] [place] [address] Feb, [facility] [place] [facility] [address] [facility] [id number] [place] [address] Feb, [facility] [place] [facility] [address] [facility] [id number] [place] [address] Feb, [facility] [place] [facility] [address] [id number] [place] [address] Feb, [facility] [place] [facility] [address] [id number] [place] [address] Feb, [facility] [place] [facility] [address] [id number] [place] [address] Feb, [facility] [place] [facility] [address] [id number] [place] [address] Feb, [facility] [place] [facility] [address] [id number] [place] [address] Feb, [facility] [place] [facility] [address] [id number] [place] [address] Feb, [facility] [place] [facility] [address] [id number] [place] [address] Feb, [facility] [place] [facility] [address] [id number] [place] [address] Feb, [facility] [place] [facility] [address] [id number] [place] [address] 19 Jan, 2012 [facility] [place] [facility] [address] [id number], [place] [address] 13 Jan, 2012 [facility] [place] [facility] [address] [id number], [place] [address] 11 Jan, 2012 [facility] [place] [facility] [address] [id number], [place] [address] 10 Jan, 2012 [facility] [place] [facility] [address] [id number] [place] [address] 05 Jan, 2012 [facility] [place] [facility] [address] [id number] [place] [address] Dec, [facility] [place] [facility] [address] [id number], [place] [address] Dec, [facility] [place] [facility] [address] [id number], [place] [address] Dec, [facility] [place] [facility] [address] [id number] [place] [address] Dec, [facility] [place] [facility] [address] [id number] [place] [address] Dec, [facility] [place] [facility] [address] [id number] [place] [address] Dec, [facility] [place] [facility] [address] [id number] [place] [address] Nov, [facility] [place] [facility] [address] [id number] [place] [address] Nov, [facility] [place] [facility] [address] [id number] [place] [address] Nov, [facility] [place] [facility] [address] [id number] [place] [address] Nov, [facility] [place] [facility] [address] [id number] [place] [address] Nov, [facility] [place] [facility] [address] [id number] [place] [address] Oct, [facility] [place] [facility] [address] [id number] [place] [address] Oct, [facility] [place] [facility] [address] [id number] [place] [address] Oct, [facility] [place] [facility] [address] [id number] [place] [address] September, [facility] [place] [facility] [address] [id number] [place] [address] September, [facility] [place] [facility] [address] [id number] [place] [address] September, [facility] [place] [facility] [address] [id number] [place] [address] September, [facility] [place] [facility] [address] [id number] [place] [address] September, [facility] [address] [id number] [place] [address] September, [facility] [place] [facility] [address] [id number] [place] [address] Aug, [facility] [place] [facility] [address] [id number] [place] [address] Aug, [facility] [place] [facility] [address] [id number] [place] [address] Aug, [facility] [place] [facility] [address] [id number] [place] [address] Jun, [facility] [place] [facility] [address] [id number] [place] [address] Jun, [facility] [place] [facility] [address] [id number] [place] [address] Jun, [facility] [place] [facility] [address] [id number] [place] [address] Jun, [facility] [place] [facility] [address] [id number] [place] [address] May, [facility] [place] [facility] [address] [id number] [place] [address] May, [facility] [place] [facility] [address] [id number] [place] [address] May, [facility] [place] [facility] [address] [id number] [place] [address] May, [facility] [place] [facility] [address] [id number] [place] [address] May, [facility] [place] [facility] [address] [id number] [place] [address] Apr, [facility] [place] [facility] [address] [id number], [place] [address] 20 Apr, 2011 [facility] [place] [facility] [address] [id number] [place] [address] Apr, [facility] [place] [facility] [address] [id number] [place] [address] Apr, [facility] [place] [facility] [address] [id number] [place] [address] Apr, [facility] [place] [facility] [address] [id number], [place] [address] 16 Apr, 2011 [facility] [place] [facility] [address] [id number] [place] [address] Apr, [facility] [place] [facility] [address] [id number] [place] [address] Mar, [facility] [place] [facility] [address] [id number] [place] [address] Mar, [facility] [place] [facility] [address] [id number], [place] [address] 15 Mar, 2011 [facility] [place] [facility] [address] [id number], [place] [address] Feb, [facility] [place] [facility] [address] [id number], [place] [address] 24 Feb, 2011 [facility] [place] [facility] [address] [id number], [place] [address] Feb, [facility] [place] [facility] [address] [id number], [place] [address] Feb, [facility] [place] [facility] [address] [id number], [place] [address] 18 Feb, 2011 [facility] [place] [facility] [address] [id number], [place] [address] 17 Feb, 2011 [facility] [place] [facility] [address] [id number], [place] [address] 13 Jan, 2011 [facility] [place] [facility] [address] [id number] [place] [address] 12 Jan, 2011 [facility] [address] [id number] [place] [address] September, [facility] [address] [id number] [place] [address] 17 Jun, 2010 [facility] [address] [id number] [place] [address] Apr, [facility] [address] [id number] [place] [address] Apr, [facility] [address] [id number] [place] [address], [place] [address] Apr, [facility] [address] [id number] [place] [address] Apr, [facility] [address] [id number] [place] [address] Apr, [facility] [address] [id number] [place] [address] 30 Mar, 2010 [facility] [address] [id number] [place] [address] 24 Mar, 2010 [facility] [address] [facility] [id number] [place] [address] Mar, [facility] [address] [id number] [place] [address] 05 Mar, 2010 [facility] [address] [id number] [place] [address] 27 Feb, 2010 [facility] [address] [id number] [place] [address] 15 Jan, 2010 [facility] [address] [id number] [place] [address] 07 Mar, 2009 [facility] [address] [id number] [place] [address] 15 Jan, 2009 [facility] [address] [facility] [id number] [place] [address] Oct, [facility] [address] [facility] [id number] [place] [address] Apr, IMMUNIZATIONS No Known Immunizations SOCIAL HISTORY Never Assessed REASON FOR VISIT EMR-[facility] [place] PLAN OF CARE VITAL SIGNS MEDICATIONS Unknown [...]
--- OUTSIDE RECORDS SUMMARY | 2018-09-28 03:57 | XMS REPORT ---
Author Author Migration, Doctor Organization [facility] Address Unknown Phone Unavailable Care Team Providers Care [employer] Member Name Role Phone Migration, Doctor Unavailable Unavailable PROBLEMS Type Condition ICD9-CM Code REP26-SE Code Onset Dates Condition Status SNOMED Code Problem Essential hypertension I10 Active 84703051 Problem Bilateral low back pain without sciatica M54.5 Active 448201555 Problem Anxiety F41.9 Active 31368144 Problem Dysuria R30.0 Active 41523000 Problem Irritable bowel syndrome without diarrhea K58.9 Active 90453506 Problem Rhinosinusitis J32.9 Active 530247649 Problem Hypertriglyceridemia E78.1 Active 181788499 Problem Pre-diabetes R73.03 Active 060760177 Problem Alternating constipation and diarrhea R19.8 Active 950362293 Problem Body mass index (BMI) of 40.0-44.9 in adult Z68.41 Active 878092310 Problem Morbid (severe) obesity due to excess calories E66.01 Active 120286259 ALLERGIES No Information ENCOUNTERS Encounter Location Date Diagnosis [place] [id number] [place] [address] 16 Aug, 2018 Acute vaginitis N76.0 [place] [id number] [place] [address] Aug, Rhinosinusitis J32.9 ; Bronchitis J40 ; Folliculitis L73.9 and Morbid obesity E66.01 [facility] [id number] [place] [address] Jul, [place] [address] [address] Jul, [facility] [id number] [place] [address] Jun, [facility] [address] [address] Jun, Acute vaginitis N76.0 ; Dermatitis L30.9 ; BMI 40.0-44.9, adult Z68.41 and Morbid obesity E66.01 [facility] [id number] [place] [address] Jun, Vaginal discharge N89.8 ; Urinary tract infection without hematuria, site unspecified N39.0 and BMI 40.0-44.9, adult Z68.41 [place] [id number] [place] [address] May, [place] [address] [address] May, [place] [address] [address] Apr, Urinary tract infection, site not specified N39.0 [place] [id number] [place] [address] Apr, Dysuria R30.0 ; Urinary tract infection, site not specified N39.0 and Hematuria, unspecified R31.9 [place] [id number] [place] [address] Mar, [place] [id number] [place] [address] Mar, Left anterior knee pain M25.562 ; Abscess of buttock, left L02.31 and BMI 40.0-44.9, adult Z68.41 [place] [id number] [place] [address] 12 Mar, 2018 [facility] [address] [address] 13 Feb, 2018 Abrasion of right ear canal, initial encounter S00.411A ; Left wrist pain M25.532 ; Right acute serous otitis media, recurrence not specified H65.01 and BMI 40.0-44.9, adult Z68.41 [place] [id number] [place] [address] Jan, [place] [address] [address] Jan, [facility] [id number] [place] [address] Jan, BMI 40.0-44.9, adult Z68.41 ; Pre-diabetes R73.03 ; Essential hypertension I10 ; Morbid (severe) obesity due to excess calories E66.01 ; Bilateral low back pain without sciatica M54.5 and Heartburn R12 [place] [address] [address] Jan, History of UTI Z87.440 ; Well woman exam with routine gynecological exam Z01.419 ; Screening for breast cancer Z12.31 ; Candidal vaginitis B37.3 and BMI 40.0-44.9, adult Z68.41 [place] [id number] [place] [address] Jan, [facility] [id number] [place] [address] Jan, Dysuria R30.0 ; Acute cystitis with hematuria N30.01 ; Yeast infection B37.9 and BMI 40.0-44.9, adult Z68.41 [place] [id number] [place] [address] Dec, [place] [id number] [place] [address] Dec, [place] [id number] [place] [address] Nov, History of UTI Z87.440 [place] [id number] [place] [address] Nov, UTI symptoms R39.9 ; Acute nasopharyngitis J00 and BMI 40.0-44.9, adult Z68.41 [facility] [address] [address] Nov, [facility] [id number] [place] [address] Nov, Yeast infection involving the vagina and surrounding area B37.3 [facility] [id number] [address] Nov, Yeast infection involving the vagina and surrounding area B37.3 [facility] [id number] [place] [address] Nov, Yeast infection involving the vagina and surrounding area B37.3 ; Body mass index (BMI) of 40.0-44.9 in adult Z68.41 and Morbid (severe) obesity due to excess calories E66.01 [place] [address] [place] [address] Oct, Abscess of groin, left L02.214 and Pre-diabetes R73.03 [facility] [address] [address] September, Pre-diabetes R73.03 [facility] [id number] [place] [address] Aug, [facility] [address], [place] [address] Jul, Bilateral low back pain without sciatica M54.5 [facility] [address] [address] Jun, [facility] [id number] [place] [address] Jun, [facility] [id number] [address] Jun, [facility] [address] [address] May, [place] [id number] [place] [address] May, Ingrown left greater toenail L60.0 [place] [address] [address] May, [facility] [address] [address] May, Influenza A J10.1 ; Fever R50.9 and Body aches R52 [facility] [address] [address] Apr, [place] [address] [address] Apr, [place] [address] [address] Apr, [place] [address] [address] Apr, Abscess L02.91 and Obesity (BMI 30-39.9) E66.9 [place] [address] [address] Apr, [place] [address] [address] Apr, [place] [address] [address] Mar, Acute non-recurrent maxillary sinusitis J01.00 [place] [id number] [place] [address] Feb, Heartburn R12 [place] [address] [address] Feb, Heartburn R12 ; Low back pain M54.5 ; Essential hypertension I10 ; Bilateral low back pain without sciatica M54.5 ; Anxiety F41.9 ; Pre-diabetes R73.03 ; Other obesity due to excess calories E66.09 ; Alternating constipation and diarrhea R19.8 ; Dyspepsia R10.13 ; Generalized abdominal pain R10.84 ; Rhinosinusitis J32.9 and Boil L02.92 [place] [id number] [place] [address] Jan, Heartburn R12 [place] [address] [address] Jan, [place] [address] [address] Jan, [place] [id number] [place] [address] Jan, Acute seasonal allergic rhinitis due to pollen J30.1 and Irritable bowel syndrome without diarrhea K58.9 [place] [address] [address] Dec, Low back pain M54.5 and Acute cystitis with hematuria N30.01 [place] [id number] [place] [address] Dec, Low back pain M54.5 and Acute cystitis with hematuria N30.01 [place] [id number] [place] [address] Dec, Heartburn R12 ; Essential hypertension I10 ; Acute non-recurrent maxillary sinusitis J01.00 ; Bilateral low back pain without sciatica M54.5 ; Anxiety F41.9 ; Pre-diabetes R73.03 ; Pain in right foot M79.671 ; Pain in left foot M79.672 ; Other obesity due to excess calories E66.09 and Acute cystitis with hematuria N30.01 [place] [id number] [place] [address] Dec, Bilateral low back pain without sciatica M54.5 ; Acute non-recurrent maxillary sinusitis J01.00 and Pre-diabetes R73.03 [place] [id number] [place] [address] Oct, [facility] [place] [id number] [place] [address] Aug, [facility] [place] [address] [address] Aug, Acute vaginitis N76.0 ; Urinary frequency R35.0 ; Screen for STD (sexually transmitted disease) Z11.3 and Abscess L02.91 [place] [address] [address] Aug, Plantar wart of right foot B07.0 [place] [address] [address] Jul, Plantar wart of right foot B07.0 [place] [address] [address] Jun, [place] [address] [address] Jun, Heartburn R12 ; Essential hypertension I10 ; Anxiety F41.9 ; Folliculitis L73.9 and Plantar wart of right foot B07.0 [place] [id number] [place] [address] Jun, [facility] [place] [id number] [place] [address] May, Low back pain M54.5 and Other chronic pain G89.29 [place] [id number] [place] [address] May, [place] [address] [address] May, [place] [id number] [place] [address] May, Heartburn R12 ; Bilateral low back pain without sciatica M54.5 ; Essential hypertension I10 ; Long-term use of high-risk medication Z79.899 ; Anxiety F41.9 ; Impacted cerumen of right ear H61.21 ; Folliculitis L73.9 ; High risk bisexual behavior Z72.53 and General medical exam Z00.00 [facility] [id number] [place] [address] May, [facility] [address] [address] May, [facility] [address] [address] Mar, Acute nasopharyngitis J00 ; Acute intractable tension-type headache G44.201 and Cough R05 [place] [address] [address] Jan, [facility] [address] [address] Jan, Abscess L02.91 [facility] [address] [address] Jan, Urinary urgency R39.15 and Urinary tract infection without hematuria, site unspecified N39.0 [place] [address] [address] Jan, [facility] [id number] [place] [address] Jan, [place] [address] [address] Dec, [place] [id number] [place] [address] Dec, Dermatofibroma D23.9 [place] [address] [address] September, [facility] [address] [address] Aug, [facility] [address] [place] [address] Aug, Pain in left knee M25.562 ; Heartburn R12 ; Bilateral low back pain without sciatica M54.5 ; Essential hypertension I10 ; Ingrown left big toenail L60.0 ; Chronic pain G89.29 ; Irritable bowel syndrome with constipation K58.9 and Skin infection L08.9 [facility] [address] [address] Aug, [facility] [address] [address] Jul, [facility] [address] [address] Jun, [facility] [id number] [place] [address] Jun, [facility] [address] [address] Jun, [facility] [id number] [place] [address] Jun, [facility] [id number] [place] [address] Jun, Upper respiratory infection J06.9 ; Bilateral low back pain without sciatica M54.5 and Headache R51 [facility] [id number] [place] [address] May, [facility] [id number] [place] [address] Apr, Bilateral low back pain without sciatica M54.5 ; Upper respiratory infection J06.9 and Yeast dermatitis B37.2 [facility] [id number] [place] [address] Apr, [facility] [id number] [place] [address] Apr, [facility] [id number] [place] [address] Feb, [facility] [id number] [place] [address] Feb, [facility] [id number] [place] [address] Feb, [place] [address] [address] Feb, Essential hypertension I10 ; Heartburn R12 ; Irritable bowel syndrome without diarrhea K58.9 ; Bilateral low back pain, with sciatica presence unspecified M54.5 and Upper respiratory infection J06.9 [place] [id number] [place] [address] Feb, [place] [id number] [place] [address] Feb, Generalized anxiety disorder F41.1 and Grief F43.20 [place] [id number] [place] [address] Jan, [place] [id number] [place] [address] Jan, Back pain 724.5 ; Upper respiratory infection 465.9 ; HTN (hypertension) 401.9 and Dyspepsia 536.8 [place] [id number] [place] [address] Dec, [facility] [id number] [place] [address] Nov, Back pain 724.5 ; Abdominal pain, bilateral lower quadrant 789.03 ; GERD (gastroesophageal reflux disease) 530.81 ; Upper respiratory infection 465.9 ; Dysuria 788.1 and HTN (hypertension) 401.9 [place] [id number] [place] [address] Nov, [place] [id number] [place] [address] Nov, [facility] [address], [place] [address] Nov, [facility] [id number] [place] [address] Nov, Cough 786.2 [facility] [id number] [place] [address] Nov, Cough 786.2 [facility] [id number] [place] [address] Oct, Unspecified episodic mood disorder 296.90 and Anxiety disorder, unspecified 300.00 [facility] [id number] [place] [address] Oct, Abdominal pain, left upper quadrant 789.02 ; Essential hypertension, benign 401.1 ; Irritable bowel syndrome 564.1 ; Abscess 682.9 ; Heartburn 787.1 ; Acute sinusitis, unspecified 461.9 ; Muscle spasm of back 724.8 ; Cough 786.2 and Skin tag 701.9 [facility] [address] [place] [address] September, [facility] [id number] [place] [address] September, [facility] [address], [place] [address] September, [facility] [address], [place] [address] Aug, [facility] [id number] [place] [address] Aug, [facility] [id number] [place] [address] Jul, [facility] [address], [place] [address] Jul, [facility] [place] [facility] [address] [id number] [place] [address] Jul, [facility] [place] [facility] [address] [id number] [place] [address] Jul, [facility] [place] [facility] [address] [id number] [place] [address] Jul, [facility] [place] [facility] [address] [id number] [place] [address] Jul, [facility] [place] [facility] [address] [id number] [place] [address] Jul, [facility] [place] [facility] [address] [id number] [place] [address] Jul, [facility] [place] [facility] [address] [id number] [place] [address] Jul, [facility] [place] [facility] [address] [id number] [place] [address] Jul, [facility] [place] [facility] [address] [id number] [place] [address] Jul, [facility] [place] [facility] [address] [id number] [place] [address] Jul, [facility] [place] [facility] [address] [id number] [place] [address] Jul, [facility] [place] [facility] [address] [id number] [place] [address] Jul, [facility] [place] [facility] [address] [id number] [place] [address] Jul, [facility] [place] [facility] [address] [id number] [place] [address] Jul, [facility] [place] [facility] [address] [id number] [place] [address] Jul, [facility] [place] [facility] [address] [id number] [place] [address] Jun, 2014 [facility] [place] [facility] [address] [id number] [place] [address] Jun, 2014 [facility] [place] [facility] [address] [id number] [place] [address] Jun, 2014 [facility] [place] [facility] [address] [facility] [id number] [place] [address] Jun, 2014 [facility] [place] [facility] [address] [id number] [place] [address] Jun, 2014 [facility] [place] [facility] [address] [id number] [place] [address] Jun, 2014 [facility] [place] [facility] [address] [facility] [id number] [place] [address] Jun, 2014 [facility] [place] [facility] [address] [facility] [id number] [place] [address] Jun, 2014 [facility] [place] [facility] [address] [facility] [id number] [place] [address] 29 Apr, 2014 [facility] [place] [facility] [address] [facility] [id number] [place] [address] 29 Apr, 2014 [facility] [place] [facility] [address] [facility] [id number] [place] [address] Apr, [facility] [place] [facility] [address] [facility] [id number] [place] [address] 23 Apr, 2014 [facility] [place] [facility] [address] [facility] [id number] [place] [address] 18 Apr, 2014 [facility] [place] [facility] [address] [facility] [id number] [place] [address] 18 Apr, 2014 [facility] [place] [facility] [address] [facility] [id number] [place] [address] 15 Apr, 2014 [facility] [place] [facility] [address] [facility] [id number] [place] [address] 15 Apr, 2014 [facility] [place] [facility] [address] [id number] [place] [address] Apr, [facility] [place] [facility] [address] [id number] [place] [address] Apr, [facility] [place] [facility] [address] [id number] [place] [address] Apr, [facility] [place] [facility] [address] [id number] [place] [address] Apr, [facility] [place] [facility] [address] [id number] [place] [address] Apr, [facility] [place] [facility] [address] [id number] [place] [address] Apr, [facility] [place] [facility] [address] [id number] [place] [address] Apr, [facility] [place] [facility] [address] [id number] [place] [address] Feb, [facility] [place] [facility] [address] [id number] [place] [address] Feb, [facility] [place] [facility] [address] [id number] [place] [address] Feb, [facility] [place] [facility] [address] [id number] [place] [address] Feb, [facility] [place] [facility] [address] [id number] [place] [address] Feb, [facility] [place] [facility] [address] [id number] [place] [address] Feb, [facility] [place] [facility] [address] [id number] [place] [address] Jan, [facility] [place] [facility] [address] [id number] [place] [address] 08 Jan, 2014 [facility] [place] [facility] [address] [id number] [place] [address] Jan, [facility] [place] [facility] [address] [id number] [place] [address] Jan, 2013 [facility] [place] [facility] [address] [id number] [place] [address] Jan, [facility] [place] [facility] [address] [id number] [place] [address] Jan, [facility] [place] [facility] [address] [id number] [place] [address] Dec, [facility] [place] [facility] [address] [id number] [place] [address] Dec, [facility] [place] [facility] [address] [id number] [place] [address] Dec, [facility] [place] [facility] [address] [id number] [place] [address] Dec, [facility] [place] [facility] [address] [id number] [place] [address] Nov, [facility] [place] [facility] [address] [id number] [place] [address] Nov, [facility] [place] [facility] [address] [id number] [place] [address] Nov, [facility] [place] [facility] [address] [id number] [place] [address] Nov, [facility] [place] [facility] [address] [id number] [place] [address] Nov, [facility] [place] [facility] [address] [id number] [place] [address] Nov, [facility] [place] [facility] [address] [id number] [place] [address] Nov, [facility] [place] [facility] [address] [id number] [place] [address] Nov, [facility] [place] [facility] [address] [id number] [place] [address] 30 Oct, 2013 [facility] [place] [facility] [address] [id number] [place] [address] Oct, [facility] [place] [facility] [address] [id number] [place] [address] Oct, [facility] [place] [facility] [address] [id number] [place] [address] Oct, [facility] [place] [facility] [address] [id number] [place] [address] Oct, [facility] [place] [facility] [address] [id number] [place] [address] Oct, [facility] [place] [facility] [address] [id number] [place] [address] Oct, [facility] [place] [facility] [address] [id number] [place] [address] Oct, [facility] [place] [facility] [address] [id number] [place] [address] Oct, [facility] [place] [facility] [address] [id number] [place] [address] Oct, [facility] [place] [facility] [address] [id number] [place] [address] Oct, [facility] [place] [facility] [address] [id number] [place] [address] Oct, [facility] [place] [facility] [address] [id number] [place] [address] Oct, [facility] [place] [facility] [address] [id number] [place] [address] Oct, [facility] [place] [facility] [address] [id number] [place] [address] Oct, [facility] [place] [facility] [address] [id number] [place] [address] Oct, [facility] [place] [facility] [address] [id number] [place] [address] Oct, [facility] [place] [facility] [address] [id number] [place] [address] Oct, [facility] [place] [facility] [address] [id number] [place] [address] Oct, [facility] [place] [facility] [address] [id number] [place] [address] Oct, [facility] [place] [facility] [address] [id number] [place] [address] Oct, [facility] [place] [facility] [address] [id number] [place] [address] Oct, [facility] [place] [facility] [address] [id number] [place] [address] Oct, [facility] [place] [facility] [address] [id number] [place] [address] Oct, [facility] [place] [facility] [address] [id number] [place] [address] Oct, [facility] [place] [facility] [address] [id number] [place] [address] Oct, [facility] [place] [facility] [address] [id number] [place] [address] Oct, [facility] [place] [facility] [address] [id number] [place] [address] Oct, [facility] [place] [facility] [address] [id number] [place] [address] Oct, [facility] [place] [facility] [address] [id number] [place] [address] Oct, [facility] [place] [facility] [address] [id number] [place] [address] September, [facility] [place] [facility] [address] [id number] [place] [address] September, [facility] [address] [id number] [place] [address] September, [facility] [place] [facility] [address] [id number] [place] [address] September, [facility] [place] [facility] [address] [id number] [place] [address] September, [facility] [place] [facility] [address] [id number] [place] [address] September, [facility] [place] [facility] [address] [id number] [place] [address] September, [facility] [place] [facility] [address] [id number] [place] [address] September, [facility] [place] [facility] [address] [id number] [place] [address] September, [facility] [place] [facility] [address] [id number] [place] [address] September, [facility] [place] [facility] [address] [id number] [place] [address] September, [facility] [place] [facility] [address] [id number] [place] [address] September, [facility] [place] [facility] [address] [id number] [place] [address] September, [facility] [place] [facility] [address] [id number] [place] [address] September, [facility] [place] [facility] [address] [id number] [place] [address] September, [facility] [place] [facility] [address] [id number] [place] [address] September, [facility] [place] [facility] [address] [id number] [place] [address] September, [facility] [place] [facility] [address] [id number] [place] [address] September, [facility] [address] [id number] [place] [address] Aug, [facility] [place] [facility] [address] [id number] [place] [address] Aug, [facility] [place] [facility] [address] [id number] [place] [address] Aug, [facility] [place] [facility] [address] [id number] [place] [address] Aug, [facility] [place] [facility] [address] [id number] [place] [address] Aug, [facility] [place] [facility] [address] [id number] [place] [address] Aug, [facility] [place] [facility] [address] [id number] [place] [address] Jul, [facility] [place] [facility] [address] [id number] [place] [address] Jul, [facility] [place] [facility] [address] [id number] [place] [address] Jul, [facility] [place] [facility] [address] [id number] [place] [address] Jul, [facility] [place] [facility] [address] [id number] [place] [address] Jun, [facility] [place] [facility] [address] [id number] [place] [address] Jun, [facility] [place] [facility] [address] [id number] [place] [address] Jun, [facility] [place] [facility] [address] [id number] [place] [address] Jun, [facility] [place] [facility] [address] [id number] [place] [address] 14 Mar, 2013 [facility] [place] [facility] [address] [id number] [place] [address] 14 Mar, 2013 [facility] [place] [facility] [address] [id number] [place] [address] 13 Mar, 2013 [facility] [place] [facility] [address] [id number] [place] [address] Mar, [facility] [place] [facility] [address] [id number] [place] [address] Feb, [facility] [place] [facility] [address] [id number] [place] [address] Feb, [facility] [place] [facility] [address] [id number] [place] [address] Feb, [facility] [place] [facility] [address] [id number] [place] [address] Jan, [facility] [place] [facility] [address] [id number] [place] [address] Jan, [facility] [place] [facility] [address] [id number] [place] [address] 12 Jan, 2013 [facility] [place] [facility] [address] [id number] [place] [address] 05 Jan, 2013 [facility] [place] [facility] [address] [id number], [place] [address] Dec, [facility] [place] [facility] [address] [id number], [place] [address] 15 Dec, 2012 [facility] [place] [facility] [address] [id number] [place] [address] Dec, [facility] [place] [facility] [address] [id number], [place] [address] Dec, [facility] [place] [facility] [address] [id number] [place] [address] Nov, [facility] [place] [facility] [address] [id number] [place] [address] Nov, [facility] [place] [facility] [address] [id number] [place] [address] Nov, [facility] [place] [facility] [address] [id number] [place] [address] Nov, [facility] [place] [facility] [address] [id number] [place] [address] Nov, [facility] [place] [facility] [address] [id number] [place] [address] Nov, [facility] [place] [facility] [address] [id number] [place] [address] Oct, [facility] [place] [facility] [address] [id number] [place] [address] Oct, [facility] [place] [facility] [address] [id number] [place] [address] Oct, [facility] [place] [facility] [address] [id number] [place] [address] Oct, [facility] [place] [facility] [address] [id number] [place] [address] 17 Oct, 2012 [facility] [place] [facility] [address] [id number] [place] [address] 16 Oct, 2012 [facility] [place] [facility] [address] [id number] [place] [address] 14 Oct, 2012 [facility] [place] [facility] [address] [id number] [place] [address] 13 Oct, 2012 [facility] [place] [facility] [address] [id number] [place] [address] Oct, [facility] [place] [facility] [address] [id number] [place] [address] 07 Oct, 2012 [facility] [place] [facility] [address] [id number] [place] [address] September, [facility] [place] [facility] [address] [id number] [place] [address] September, [facility] [address] [id number] [place] [address] September, [facility] [address] [id number] [place] [address] Aug, [facility] [address] [id number] [place] [address] Aug, [facility] [address] [id number] [place] [address] Aug, [facility] [address] [id number] [place] [address] Aug, [facility] [address] [id number] [place] [address] Jul, [facility] [address] [id number] [place] [address] Jul, [facility] [address] [id number] [place] [address] Jul, [facility] [address] [id number] [place] [address] Jul, [facility] [address] [id number] [place] [address] Jul, [facility] [address] [id number] [place] [address] Jul, [facility] [address] [id number] [place] [address] May, [facility] [place] [facility] [address] [id number] [place] [address] May, [facility] [place] [facility] [address] [id number] [place] [address] May, [facility] [address] [id number] [place] [address] May, [facility] [address] [id number] [place] [address] May, [facility] [place] [facility] [address] [id number] [place] [address] May, [facility] [place] [facility] [address] [id number] [place] [address] May, [facility] [place] [facility] [address] [id number] [place] [address] 18 May, 2012 [facility] [address] [id number] [place] [address] May, [facility] [place] [facility] [address] [id number] [place] [address] 17 May, 2012 [facility] [address] [id number] [place] [address] May, [facility] [place] [facility] [address] [id number] [place] [address] Apr, [facility] [address] [id number] [place] [address] Apr, [facility] [place] [facility] [address] [id number] [place] [address] Apr, [facility] [place] [facility] [address] [id number] [place] [address] Apr, [facility] [place] [facility] [address] [id number] [place] [address] Apr, [facility] [place] [facility] [address] [id number] [place] [address] Apr, [facility] [place] [facility] [address] [id number] [place] [address] Mar, [facility] [place] [facility] [address] [id number] [place] [address] Mar, [facility] [place] [facility] [address] [id number] [place] [address] 08 Mar, 2012 [facility] [place] [facility] [address] [id number] [place] [address] Mar, [facility] [place] [facility] [address] [id number] [place] [address] Mar, [facility] [place] [facility] [address] [id number] [place] [address] Mar, [facility] [place] [facility] [address] [id number] [place] [address] Mar, [facility] [place] [facility] [address] [id number] [place] [address] Mar, [facility] [place] [facility] [address] [id number] [place] [address] Feb, [facility] [place] [facility] [address] [id number] [place] [address] Feb, [facility] [place] [facility] [address] [id number] [place] [address] 16 Feb, 2012 [facility] [place] [facility] [address] [facility] [id number] [place] [address] 15 Feb, 2012 [facility] [place] [facility] [address] [facility] [id number] [place] [address] 15 Feb, 2012 [facility] [place] [facility] [address] [facility] [id number] [place] [address] 13 Feb, 2012 [facility] [place] [facility] [address] [id number], [place] [address] Feb, [facility] [place] [facility] [address] [id number] [place] [address] Feb, [facility] [place] [facility] [address] [facility] [id number] [place] [address] Feb, [facility] [place] [facility] [address] [facility] [id number] [place] [address] Feb, [facility] [place] [facility] [address] [id number] [place] [address] Feb, [facility] [place] [facility] [address] [id number] [place] [address] Feb, [facility] [place] [facility] [address] [id number] [place] [address] Feb, [facility] [place] [facility] [address] [id number] [place] [address] Feb, [facility] [place] [facility] [address] [id number] [place] [address] Feb, [facility] [place] [facility] [address] [id number] [place] [address] Feb, [facility] [place] [facility] [address] [id number] [place] [address] Feb, [facility] [place] [facility] [address] [id number] [place] [address] Feb, [facility] [place] [facility] [address] [id number] [place] [address] 19 Jan, 2012 [facility] [place] [facility] [address] [id number], [place] [address] 13 Jan, 2012 [facility] [place] [facility] [address] [id number], [place] [address] 11 Jan, 2012 [facility] [place] [facility] [address] [id number], [place] [address] 10 Jan, 2012 [facility] [place] [facility] [address] [id number] [place] [address] 05 Jan, 2012 [facility] [place] [facility] [address] [id number] [place] [address] Dec, [facility] [place] [facility] [address] [id number], [place] [address] Dec, [facility] [place] [facility] [address] [id number], [place] [address] Dec, [facility] [place] [facility] [address] [id number] [place] [address] Dec, [facility] [place] [facility] [address] [id number] [place] [address] Dec, [facility] [place] [facility] [address] [id number] [place] [address] Dec, [facility] [place] [facility] [address] [id number] [place] [address] Nov, [facility] [place] [facility] [address] [id number] [place] [address] Nov, [facility] [place] [facility] [address] [id number] [place] [address] Nov, [facility] [place] [facility] [address] [id number] [place] [address] Nov, [facility] [place] [facility] [address] [id number] [place] [address] Nov, [facility] [place] [facility] [address] [id number] [place] [address] Oct, [facility] [place] [facility] [address] [id number] [place] [address] Oct, [facility] [place] [facility] [address] [id number] [place] [address] Oct, [facility] [place] [facility] [address] [id number] [place] [address] September, [facility] [place] [facility] [address] [id number] [place] [address] September, [facility] [place] [facility] [address] [id number] [place] [address] September, [facility] [place] [facility] [address] [id number] [place] [address] September, [facility] [place] [facility] [address] [id number] [place] [address] September, [facility] [address] [id number] [place] [address] September, [facility] [place] [facility] [address] [id number] [place] [address] Aug, [facility] [place] [facility] [address] [id number] [place] [address] Aug, [facility] [place] [facility] [address] [id number] [place] [address] Aug, [facility] [place] [facility] [address] [id number] [place] [address] Jun, [facility] [place] [facility] [address] [id number] [place] [address] Jun, [facility] [place] [facility] [address] [id number] [place] [address] Jun, [facility] [place] [facility] [address] [id number] [place] [address] Jun, [facility] [place] [facility] [address] [id number] [place] [address] May, [facility] [place] [facility] [address] [id number] [place] [address] May, [facility] [place] [facility] [address] [id number] [place] [address] May, [facility] [place] [facility] [address] [id number] [place] [address] May, [facility] [place] [facility] [address] [id number] [place] [address] May, [facility] [place] [facility] [address] [id number] [place] [address] Apr, [facility] [place] [facility] [address] [id number], [place] [address] 20 Apr, 2011 [facility] [place] [facility] [address] [id number] [place] [address] Apr, [facility] [place] [facility] [address] [id number] [place] [address] Apr, [facility] [place] [facility] [address] [id number] [place] [address] Apr, [facility] [place] [facility] [address] [id number], [place] [address] 16 Apr, 2011 [facility] [place] [facility] [address] [id number] [place] [address] Apr, [facility] [place] [facility] [address] [id number] [place] [address] Mar, [facility] [place] [facility] [address] [id number] [place] [address] Mar, [facility] [place] [facility] [address] [id number], [place] [address] 15 Mar, 2011 [facility] [place] [facility] [address] [id number], [place] [address] Feb, [facility] [place] [facility] [address] [id number], [place] [address] 24 Feb, 2011 [facility] [place] [facility] [address] [id number], [place] [address] Feb, [facility] [place] [facility] [address] [id number], [place] [address] Feb, [facility] [place] [facility] [address] [id number], [place] [address] 18 Feb, 2011 [facility] [place] [facility] [address] [id number], [place] [address] 17 Feb, 2011 [facility] [place] [facility] [address] [id number], [place] [address] 13 Jan, 2011 [facility] [place] [facility] [address] [id number] [place] [address] 12 Jan, 2011 [facility] [address] [id number] [place] [address] September, [facility] [address] [id number] [place] [address] 17 Jun, 2010 [facility] [address] [id number] [place] [address] Apr, [facility] [address] [id number] [place] [address] Apr, [facility] [id number] [place] [address], [place] [address] Apr, [facility] [address] [id number] [place] [address] Apr, [facility] [address] [id number] [place] [address] Apr, [facility] [address] [id number] [place] [address] 30 Mar, 2010 [facility] [address] [id number] [place] [address] 24 Mar, 2010 [facility] [address] [facility] [id number] [place] [address] Mar, [facility] [address] [id number] [place] [address] 05 Mar, 2010 [facility] [address] [id number] [place] [address] 27 Feb, 2010 [facility] [address] [id number] [place] [address] 15 Jan, 2010 [facility] [address] [id number] [place] [address] 07 Mar, 2009 [facility] [address] [id number] [place] [address] 15 Jan, 2009 [facility] [address] [facility] [id number] [place] [address] Oct, [facility] [address] [facility] [id number] [place] [address] Apr, IMMUNIZATIONS No Known Immunizations SOCIAL HISTORY Never Assessed REASON FOR VISIT EMR-[facility] [place] PLAN OF CARE VITAL SIGNS MEDICATIONS Unknown [...]
--- OUTSIDE RECORDS SUMMARY | 2018-09-28 03:58 | XMS REPORT ---
Author Author Migration, Doctor Organization [facility] Address Unknown Phone Unavailable Care Team Providers Care Domestic Helper Name Role Phone Migration, Doctor Unavailable Unavailable PROBLEMS Type Condition ICD9-CM Code FNV75-CX Code Onset Dates Condition Status SNOMED Code Problem Essential hypertension I10 Active 80587663 Problem Bilateral low back pain without sciatica M54.5 Active 023115179 Problem Anxiety F41.9 Active 05839821 Problem Dysuria R30.0 Active 04826309 Problem Irritable bowel syndrome without diarrhea K58.9 Active 40861455 Problem Rhinosinusitis J32.9 Active 876542538 Problem Hypertriglyceridemia E78.1 Active 524007453 Problem Pre-diabetes R73.03 Active 146268156 Problem Alternating constipation and diarrhea R19.8 Active 341457530 Problem Body mass index (BMI) of 40.0-44.9 in adult Z68.41 Active 131317169 Problem Morbid (severe) obesity due to excess calories E66.01 Active 133165849 ALLERGIES No Information ENCOUNTERS Encounter Location Date Diagnosis [place] [id number] [place] [address] 16 Aug, 2018 Acute vaginitis N76.0 [place] [id number] [place] [address] Aug, Rhinosinusitis J32.9 ; Bronchitis J40 ; Folliculitis L73.9 and Morbid obesity E66.01 [facility] [id number] [place] [address] Jul, [place] [address] [address] Jul, [facility] [id number] [place] [address] Jun, [facility] [address] [address] Jun, Acute vaginitis N76.0 ; Dermatitis L30.9 ; BMI 40.0-44.9, adult Z68.41 and Morbid obesity E66.01 [facility] [id number] [place] [address] Jun, Vaginal discharge N89.8 ; Urinary tract infection without hematuria, site unspecified N39.0 and BMI 40.0-44.9, adult Z68.41 [place] [id number] [place] [address] May, [place] [address] [address] May, [place] [address] [address] Apr, Urinary tract infection, site not specified N39.0 [place] [id number] [place] [address] Apr, Dysuria R30.0 ; Urinary tract infection, site not specified N39.0 and Hematuria, unspecified R31.9 [place] [id number] [place] [address] Mar, [place] [id number] [place] [address] Mar, Left anterior knee pain M25.562 ; Abscess of buttock, left L02.31 and BMI 40.0-44.9, adult Z68.41 [place] [id number] [place] [address] 12 Mar, 2018 [facility] [address] [address] 13 Feb, 2018 Abrasion of right ear canal, initial encounter S00.411A ; Left wrist pain M25.532 ; Right acute serous otitis media, recurrence not specified H65.01 and BMI 40.0-44.9, adult Z68.41 [place] [id number] [place] [address] Jan, [place] [address] [address] Jan, [facility] [id number] [place] [address] Jan, BMI 40.0-44.9, adult Z68.41 ; Pre-diabetes R73.03 ; Essential hypertension I10 ; Morbid (severe) obesity due to excess calories E66.01 ; Bilateral low back pain without sciatica M54.5 and Heartburn R12 [place] [address] [address] Jan, History of UTI Z87.440 ; Well woman exam with routine gynecological exam Z01.419 ; Screening for breast cancer Z12.31 ; Candidal vaginitis B37.3 and BMI 40.0-44.9, adult Z68.41 [place] [id number] [place] [address] Jan, [facility] [id number] [place] [address] Jan, Dysuria R30.0 ; Acute cystitis with hematuria N30.01 ; Yeast infection B37.9 and BMI 40.0-44.9, adult Z68.41 [place] [id number] [place] [address] Dec, [place] [id number] [place] [address] Dec, [place] [id number] [place] [address] Nov, History of UTI Z87.440 [place] [id number] [place] [address] Nov, UTI symptoms R39.9 ; Acute nasopharyngitis J00 and BMI 40.0-44.9, adult Z68.41 [facility] [address] [address] Nov, [facility] [id number] [place] [address] Nov, Yeast infection involving the vagina and surrounding area B37.3 [facility] [id number] [address] Nov, Yeast infection involving the vagina and surrounding area B37.3 [facility] [id number] [place] [address] Nov, Yeast infection involving the vagina and surrounding area B37.3 ; Body mass index (BMI) of 40.0-44.9 in adult Z68.41 and Morbid (severe) obesity due to excess calories E66.01 [place] [id number] [place] [address] Oct, Abscess of groin, left L02.214 and Pre-diabetes R73.03 [facility] [address] [address] September, Pre-diabetes R73.03 [facility] [id number] [place] [address] Aug, [facility] [address], [place] [address] Jul, Bilateral low back pain without sciatica M54.5 [facility] [address] [address] Jun, [facility] [id number] [place] [address] Jun, [facility] [id number] [place] [address] Jun, [facility] [address] [place] [address] May, [place] [id number] [place] [address] May, Ingrown left greater toenail L60.0 [place] [address] [address] May, [facility] [address] [address] May, Influenza A J10.1 ; Fever R50.9 and Body aches R52 [facility] [address] [address] Apr, [place] [address] [address] Apr, [place] [address] [address] Apr, [place] [address] [address] Apr, Abscess L02.91 and Obesity (BMI 30-39.9) E66.9 [place] [address] [address] Apr, [place] [address] [address] Apr, [place] [address] [address] Mar, Acute non-recurrent maxillary sinusitis J01.00 [place] [id number] [place] [address] Feb, Heartburn R12 [place] [address] [address] Feb, Heartburn R12 ; Low back pain M54.5 ; Essential hypertension I10 ; Bilateral low back pain without sciatica M54.5 ; Anxiety F41.9 ; Pre-diabetes R73.03 ; Other obesity due to excess calories E66.09 ; Alternating constipation and diarrhea R19.8 ; Dyspepsia R10.13 ; Generalized abdominal pain R10.84 ; Rhinosinusitis J32.9 and Boil L02.92 [place] [id number] [place] [address] Jan, Heartburn R12 [place] [address] [address] Jan, [place] [address] [address] Jan, [place] [id number] [place] [address] Jan, Acute seasonal allergic rhinitis due to pollen J30.1 and Irritable bowel syndrome without diarrhea K58.9 [place] [address] [address] Dec, Low back pain M54.5 and Acute cystitis with hematuria N30.01 [place] [id number] [place] [address] Dec, Low back pain M54.5 and Acute cystitis with hematuria N30.01 [place] [id number] [place] [address] Dec, Heartburn R12 ; Essential hypertension I10 ; Acute non-recurrent maxillary sinusitis J01.00 ; Bilateral low back pain without sciatica M54.5 ; Anxiety F41.9 ; Pre-diabetes R73.03 ; Pain in right foot M79.671 ; Pain in left foot M79.672 ; Other obesity due to excess calories E66.09 and Acute cystitis with hematuria N30.01 [place] [id number] [place] [address] Dec, Bilateral low back pain without sciatica M54.5 ; Acute non-recurrent maxillary sinusitis J01.00 and Pre-diabetes R73.03 [place] [id number] [place] [address] Oct, [facility] [place] [id number] [place] [address] Aug, [facility] [place] [address] [address] Aug, Acute vaginitis N76.0 ; Urinary frequency R35.0 ; Screen for STD (sexually transmitted disease) Z11.3 and Abscess L02.91 [place] [address] [address] Aug, Plantar wart of right foot B07.0 [place] [address] [address] Jul, Plantar wart of right foot B07.0 [place] [address] [address] Jun, [place] [address] [address] Jun, Heartburn R12 ; Essential hypertension I10 ; Anxiety F41.9 ; Folliculitis L73.9 and Plantar wart of right foot B07.0 [place] [id number] [place] [address] Jun, [facility] [place] [id number] [place] [address] May, Low back pain M54.5 and Other chronic pain G89.29 [place] [id number] [place] [address] May, [place] [address] [address] May, [place] [id number] [place] [address] May, Heartburn R12 ; Bilateral low back pain without sciatica M54.5 ; Essential hypertension I10 ; Long-term use of high-risk medication Z79.899 ; Anxiety F41.9 ; Impacted cerumen of right ear H61.21 ; Folliculitis L73.9 ; High risk bisexual behavior Z72.53 and General medical exam Z00.00 [facility] [id number] [place] [address] May, [facility] [address] [address] May, [facility] [address] [address] Mar, Acute nasopharyngitis J00 ; Acute intractable tension-type headache G44.201 and Cough R05 [place] [address] [address] Jan, [facility] [address] [address] Jan, Abscess L02.91 [facility] [address] [address] Jan, Urinary urgency R39.15 and Urinary tract infection without hematuria, site unspecified N39.0 [place] [address] [address] Jan, [facility] [id number] [place] [address] Jan, [place] [address] [address] Dec, [place] [id number] [place] [address] Dec, Dermatofibroma D23.9 [place] [address] [address] September, [facility] [address] [address] Aug, [facility] [address] [place] [address] Aug, Pain in left knee M25.562 ; Heartburn R12 ; Bilateral low back pain without sciatica M54.5 ; Essential hypertension I10 ; Ingrown left big toenail L60.0 ; Chronic pain G89.29 ; Irritable bowel syndrome with constipation K58.9 and Skin infection L08.9 [facility] [address] [address] Aug, [facility] [address] [address] Jul, [facility] [address] [address] Jun, [facility] [id number] [place] [address] Jun, [facility] [address] [address] Jun, [facility] [id number] [place] [address] Jun, [facility] [id number] [place] [address] Jun, Upper respiratory infection J06.9 ; Bilateral low back pain without sciatica M54.5 and Headache R51 [facility] [id number] [place] [address] May, [facility] [id number] [place] [address] Apr, Bilateral low back pain without sciatica M54.5 ; Upper respiratory infection J06.9 and Yeast dermatitis B37.2 [facility] [id number] [place] [address] Apr, [facility] [id number] [place] [address] Apr, [facility] [id number] [place] [address] Feb, [facility] [id number] [place] [address] Feb, [facility] [id number] [place] [address] Feb, [place] [address] [address] Feb, Essential hypertension I10 ; Heartburn R12 ; Irritable bowel syndrome without diarrhea K58.9 ; Bilateral low back pain, with sciatica presence unspecified M54.5 and Upper respiratory infection J06.9 [place] [id number] [place] [address] Feb, [place] [id number] [place] [address] Feb, Generalized anxiety disorder F41.1 and Grief F43.20 [place] [id number] [place] [address] Jan, [place] [id number] [place] [address] Jan, Back pain 724.5 ; Upper respiratory infection 465.9 ; HTN (hypertension) 401.9 and Dyspepsia 536.8 [place] [id number] [place] [address] Dec, [facility] [id number] [place] [address] Nov, Back pain 724.5 ; Abdominal pain, bilateral lower quadrant 789.03 ; GERD (gastroesophageal reflux disease) 530.81 ; Upper respiratory infection 465.9 ; Dysuria 788.1 and HTN (hypertension) 401.9 [place] [id number] [place] [address] Nov, [place] [id number] [place] [address] Nov, [facility] [address], [place] [address] Nov, [facility] [id number] [place] [address] Nov, Cough 786.2 [facility] [id number] [place] [address] Nov, Cough 786.2 [facility] [id number] [place] [address] Oct, Unspecified episodic mood disorder 296.90 and Anxiety disorder, unspecified 300.00 [facility] [id number] [place] [address] Oct, Abdominal pain, left upper quadrant 789.02 ; Essential hypertension, benign 401.1 ; Irritable bowel syndrome 564.1 ; Abscess 682.9 ; Heartburn 787.1 ; Acute sinusitis, unspecified 461.9 ; Muscle spasm of back 724.8 ; Cough 786.2 and Skin tag 701.9 [facility] [address] [place] [address] September, [facility] [id number] [place] [address] September, [facility] [address], [place] [address] September, [facility] [address], [place] [address] Aug, [facility] [id number] [place] [address] Aug, [facility] [id number] [place] [address] Jul, [facility] [address], [place] [address] Jul, [facility] [place] [facility] [address] [id number] [place] [address] Jul, [facility] [place] [facility] [address] [id number] [place] [address] Jul, [facility] [place] [facility] [address] [id number] [place] [address] Jul, [facility] [place] [facility] [address] [id number] [place] [address] Jul, [facility] [place] [facility] [address] [id number] [place] [address] Jul, [facility] [place] [facility] [address] [id number] [place] [address] Jul, [facility] [place] [facility] [address] [id number] [place] [address] Jul, [facility] [place] [facility] [address] [id number] [place] [address] Jul, [facility] [place] [facility] [address] [id number] [place] [address] Jul, [facility] [place] [facility] [address] [id number] [place] [address] Jul, [facility] [place] [facility] [address] [id number] [place] [address] Jul, [facility] [place] [facility] [address] [id number] [place] [address] Jul, [facility] [place] [facility] [address] [id number] [place] [address] Jul, [facility] [place] [facility] [address] [id number] [place] [address] Jul, [facility] [place] [facility] [address] [id number] [place] [address] Jul, [facility] [place] [facility] [address] [id number] [place] [address] Jun, 2014 [facility] [place] [facility] [address] [id number] [place] [address] Jun, 2014 [facility] [place] [facility] [address] [id number] [place] [address] Jun, 2014 [facility] [place] [facility] [address] [facility] [id number] [place] [address] Jun, 2014 [facility] [place] [facility] [address] [id number] [place] [address] Jun, 2014 [facility] [place] [facility] [address] [id number] [place] [address] Jun, 2014 [facility] [place] [facility] [address] [facility] [id number] [place] [address] Jun, 2014 [facility] [place] [facility] [address] [facility] [id number] [place] [address] Jun, 2014 [facility] [place] [facility] [address] [facility] [id number] [place] [address] 29 Apr, 2014 [facility] [place] [facility] [address] [facility] [id number] [place] [address] 29 Apr, 2014 [facility] [place] [facility] [address] [facility] [id number] [place] [address] Apr, [facility] [place] [facility] [address] [facility] [id number] [place] [address] 23 Apr, 2014 [facility] [place] [facility] [address] [facility] [id number] [place] [address] 18 Apr, 2014 [facility] [place] [facility] [address] [facility] [id number] [place] [address] 18 Apr, 2014 [facility] [place] [facility] [address] [facility] [id number] [place] [address] 15 Apr, 2014 [facility] [place] [facility] [address] [facility] [id number] [place] [address] 15 Apr, 2014 [facility] [place] [facility] [address] [id number] [place] [address] Apr, [facility] [place] [facility] [address] [id number] [place] [address] Apr, [facility] [place] [facility] [address] [id number] [place] [address] Apr, [facility] [place] [facility] [address] [id number] [place] [address] Apr, [facility] [place] [facility] [address] [id number] [place] [address] Apr, [facility] [place] [facility] [address] [id number] [place] [address] Apr, [facility] [place] [facility] [address] [id number] [place] [address] Apr, [facility] [place] [facility] [address] [id number] [place] [address] Feb, [facility] [place] [facility] [address] [id number] [place] [address] Feb, [facility] [place] [facility] [address] [id number] [place] [address] Feb, [facility] [place] [facility] [address] [id number] [place] [address] Feb, [facility] [place] [facility] [address] [id number] [place] [address] Feb, [facility] [place] [facility] [address] [id number] [place] [address] Feb, [facility] [place] [facility] [address] [id number] [place] [address] Jan, [facility] [place] [facility] [address] [id number] [place] [address] 08 Jan, 2014 [facility] [place] [facility] [address] [id number] [place] [address] Jan, [facility] [place] [facility] [address] [id number] [place] [address] Jan, 2013 [facility] [place] [facility] [address] [id number] [place] [address] Jan, [facility] [place] [facility] [address] [id number] [place] [address] Jan, [facility] [place] [facility] [address] [id number] [place] [address] Dec, [facility] [place] [facility] [address] [id number] [place] [address] Dec, [facility] [place] [facility] [address] [id number] [place] [address] Dec, [facility] [place] [facility] [address] [id number] [place] [address] Dec, [facility] [place] [facility] [address] [id number] [place] [address] Nov, [facility] [place] [facility] [address] [id number] [place] [address] Nov, [facility] [place] [facility] [address] [id number] [place] [address] Nov, [facility] [place] [facility] [address] [id number] [place] [address] Nov, [facility] [place] [facility] [address] [id number] [place] [address] Nov, [facility] [place] [facility] [address] [id number] [place] [address] Nov, [facility] [place] [facility] [address] [id number] [place] [address] Nov, [facility] [place] [facility] [address] [id number] [place] [address] Nov, [facility] [place] [facility] [address] [id number] [place] [address] 30 Oct, 2013 [facility] [place] [facility] [address] [id number] [place] [address] Oct, [facility] [place] [facility] [address] [id number] [place] [address] Oct, [facility] [place] [facility] [address] [id number] [place] [address] Oct, [facility] [place] [facility] [address] [id number] [place] [address] Oct, [facility] [place] [facility] [address] [id number] [place] [address] Oct, [facility] [place] [facility] [address] [id number] [place] [address] Oct, [facility] [place] [facility] [address] [id number] [place] [address] Oct, [facility] [place] [facility] [address] [id number] [place] [address] Oct, [facility] [place] [facility] [address] [id number] [place] [address] Oct, [facility] [place] [facility] [address] [id number] [place] [address] Oct, [facility] [place] [facility] [address] [id number] [place] [address] Oct, [facility] [place] [facility] [address] [id number] [place] [address] Oct, [facility] [place] [facility] [address] [id number] [place] [address] Oct, [facility] [place] [facility] [address] [id number] [place] [address] Oct, [facility] [place] [facility] [address] [id number] [place] [address] Oct, [facility] [place] [facility] [address] [id number] [place] [address] Oct, [facility] [place] [facility] [address] [id number] [place] [address] Oct, [facility] [place] [facility] [address] [id number] [place] [address] Oct, [facility] [place] [facility] [address] [id number] [place] [address] Oct, [facility] [place] [facility] [address] [id number] [place] [address] Oct, [facility] [place] [facility] [address] [id number] [place] [address] Oct, [facility] [place] [facility] [address] [id number] [place] [address] Oct, [facility] [place] [facility] [address] [id number] [place] [address] Oct, [facility] [place] [facility] [address] [id number] [place] [address] Oct, [facility] [place] [facility] [address] [id number] [place] [address] Oct, [facility] [place] [facility] [address] [id number] [place] [address] Oct, [facility] [place] [facility] [address] [id number] [place] [address] Oct, [facility] [place] [facility] [address] [id number] [place] [address] Oct, [facility] [place] [facility] [address] [id number] [place] [address] Oct, [facility] [place] [facility] [address] [id number] [place] [address] September, [facility] [place] [facility] [address] [id number] [place] [address] September, [facility] [address] [id number] [place] [address] September, [facility] [place] [facility] [address] [id number] [place] [address] September, [facility] [place] [facility] [address] [id number] [place] [address] September, [facility] [place] [facility] [address] [id number] [place] [address] September, [facility] [place] [facility] [address] [id number] [place] [address] September, [facility] [place] [facility] [address] [id number] [place] [address] September, [facility] [place] [facility] [address] [id number] [place] [address] September, [facility] [place] [facility] [address] [id number] [place] [address] September, [facility] [place] [facility] [address] [id number] [place] [address] September, [facility] [place] [facility] [address] [id number] [place] [address] September, [facility] [place] [facility] [address] [id number] [place] [address] September, [facility] [place] [facility] [address] [id number] [place] [address] September, [facility] [place] [facility] [address] [id number] [place] [address] September, [facility] [place] [facility] [address] [id number] [place] [address] September, [facility] [place] [facility] [address] [id number] [place] [address] September, [facility] [place] [facility] [address] [id number] [place] [address] September, [facility] [address] [id number] [place] [address] Aug, [facility] [place] [facility] [address] [id number] [place] [address] Aug, [facility] [place] [facility] [address] [id number] [place] [address] Aug, [facility] [place] [facility] [address] [id number] [place] [address] Aug, [facility] [place] [facility] [address] [id number] [place] [address] Aug, [facility] [place] [facility] [address] [id number] [place] [address] Aug, [facility] [place] [facility] [address] [id number] [place] [address] Jul, [facility] [place] [facility] [address] [id number] [place] [address] Jul, [facility] [place] [facility] [address] [id number] [place] [address] Jul, [facility] [place] [facility] [address] [id number] [place] [address] Jul, [facility] [place] [facility] [address] [id number] [place] [address] Jun, [facility] [place] [facility] [address] [id number] [place] [address] Jun, [facility] [place] [facility] [address] [id number] [place] [address] Jun, [facility] [place] [facility] [address] [id number] [place] [address] Jun, [facility] [place] [facility] [address] [id number] [place] [address] 14 Mar, 2013 [facility] [place] [facility] [address] [id number] [place] [address] 14 Mar, 2013 [facility] [place] [facility] [address] [id number] [place] [address] 13 Mar, 2013 [facility] [place] [facility] [address] [id number] [place] [address] Mar, [facility] [place] [facility] [address] [id number] [place] [address] Feb, [facility] [place] [facility] [address] [id number] [place] [address] Feb, [facility] [place] [facility] [address] [id number] [place] [address] Feb, [facility] [place] [facility] [address] [id number] [place] [address] Jan, [facility] [place] [facility] [address] [id number] [place] [address] Jan, [facility] [place] [facility] [address] [id number] [place] [address] 12 Jan, 2013 [facility] [place] [facility] [address] [id number] [place] [address] 05 Jan, 2013 [facility] [place] [facility] [address] [id number] [address] Dec, [facility] [place] [facility] [address] [id number], [place] [address] 15 Dec, 2012 [facility] [place] [facility] [address] [id number] [place] [address] Dec, [facility] [place] [facility] [address] [id number], [place] [address] Dec, [facility] [place] [facility] [address] [id number] [place] [address] Nov, [facility] [place] [facility] [address] [id number] [place] [address] Nov, [facility] [place] [facility] [address] [id number] [place] [address] Nov, [facility] [place] [facility] [address] [id number] [place] [address] Nov, [facility] [place] [facility] [address] [id number] [place] [address] Nov, [facility] [place] [facility] [address] [id number] [place] [address] Nov, [facility] [place] [facility] [address] [id number] [place] [address] Oct, [facility] [place] [facility] [address] [id number] [place] [address] Oct, [facility] [place] [facility] [address] [id number] [place] [address] Oct, [facility] [place] [facility] [address] [id number] [place] [address] Oct, [facility] [place] [facility] [address] [id number] [place] [address] 17 Oct, 2012 [facility] [place] [facility] [address] [id number] [place] [address] 16 Oct, 2012 [facility] [place] [facility] [address] [id number] [place] [address] 14 Oct, 2012 [facility] [place] [facility] [address] [id number] [place] [address] 13 Oct, 2012 [facility] [place] [facility] [address] [id number] [place] [address] Oct, [facility] [place] [facility] [address] [id number] [place] [address] 07 Oct, 2012 [facility] [place] [facility] [address] [id number] [place] [address] September, [facility] [place] [facility] [address] [id number] [place] [address] September, [facility] [address] [id number] [place] [address] September, [facility] [address] [id number] [place] [address] Aug, [facility] [address] [id number] [place] [address] Aug, [facility] [address] [id number] [place] [address] Aug, [facility] [address] [id number] [place] [address] Aug, [facility] [address] [id number] [place] [address] Jul, [facility] [address] [id number] [place] [address] Jul, [facility] [address] [id number] [place] [address] Jul, [facility] [address] [id number] [place] [address] Jul, [facility] [address] [id number] [place] [address] Jul, [facility] [address] [id number] [place] [address] Jul, [facility] [address] [id number] [place] [address] May, [facility] [place] [facility] [address] [id number] [place] [address] May, [facility] [place] [facility] [address] [id number] [place] [address] May, [facility] [address] [id number] [place] [address] May, [facility] [address] [id number] [place] [address] May, [facility] [place] [facility] [address] [id number] [place] [address] May, [facility] [place] [facility] [address] [id number] [place] [address] May, [facility] [place] [facility] [address] [id number] [place] [address] 18 May, 2012 [facility] [address] [id number] [place] [address] May, [facility] [place] [facility] [address] [id number] [place] [address] 17 May, 2012 [facility] [address] [id number] [place] [address] May, [facility] [place] [facility] [address] [id number] [place] [address] Apr, [facility] [address] [id number] [place] [address] Apr, [facility] [place] [facility] [address] [id number] [place] [address] Apr, [facility] [place] [facility] [address] [id number] [place] [address] Apr, [facility] [place] [facility] [address] [id number] [place] [address] Apr, [facility] [place] [facility] [address] [id number] [place] [address] Apr, [facility] [place] [facility] [address] [id number] [place] [address] Mar, [facility] [place] [facility] [address] [id number] [place] [address] Mar, [facility] [place] [facility] [address] [id number] [place] [address] 08 Mar, 2012 [facility] [place] [facility] [address] [id number] [place] [address] Mar, [facility] [place] [facility] [address] [id number] [place] [address] Mar, [facility] [place] [facility] [address] [id number] [place] [address] Mar, [facility] [place] [facility] [address] [id number] [place] [address] Mar, [facility] [place] [facility] [address] [id number] [place] [address] Mar, [facility] [place] [facility] [address] [id number] [place] [address] Feb, [facility] [place] [facility] [address] [id number] [place] [address] Feb, [facility] [place] [facility] [address] [id number] [place] [address] 16 Feb, 2012 [facility] [place] [facility] [address] [facility] [id number] [place] [address] 15 Feb, 2012 [facility] [place] [facility] [address] [facility] [id number] [place] [address] 15 Feb, 2012 [facility] [place] [facility] [address] [facility] [id number] [place] [address] 13 Feb, 2012 [facility] [place] [facility] [address] [id number], [place] [address] Feb, [facility] [place] [facility] [address] [id number] [place] [address] Feb, [facility] [place] [facility] [address] [facility] [id number] [place] [address] Feb, [facility] [place] [facility] [address] [facility] [id number] [place] [address] Feb, [facility] [place] [facility] [address] [id number] [place] [address] Feb, [facility] [place] [facility] [address] [id number] [place] [address] Feb, [facility] [place] [facility] [address] [id number] [place] [address] Feb, [facility] [place] [facility] [address] [id number] [place] [address] Feb, [facility] [place] [facility] [address] [id number] [place] [address] Feb, [facility] [place] [facility] [address] [id number] [place] [address] Feb, [facility] [place] [facility] [address] [id number] [place] [address] Feb, [facility] [place] [facility] [address] [id number] [place] [address] Feb, [facility] [place] [facility] [address] [id number] [place] [address] 19 Jan, 2012 [facility] [place] [facility] [address] [id number], [place] [address] 13 Jan, 2012 [facility] [place] [facility] [address] [id number], [place] [address] 11 Jan, 2012 [facility] [place] [facility] [address] [id number], [place] [address] 10 Jan, 2012 [facility] [place] [facility] [address] [id number] [place] [address] 05 Jan, 2012 [facility] [place] [facility] [address] [id number] [place] [address] Dec, [facility] [place] [facility] [address] [id number], [place] [address] Dec, [facility] [place] [facility] [address] [id number], [place] [address] Dec, [facility] [place] [facility] [address] [id number] [place] [address] Dec, [facility] [place] [facility] [address] [id number] [place] [address] Dec, [facility] [place] [facility] [address] [id number] [place] [address] Dec, [facility] [place] [facility] [address] [id number] [place] [address] Nov, [facility] [place] [facility] [address] [id number] [place] [address] Nov, [facility] [place] [facility] [address] [id number] [place] [address] Nov, [facility] [place] [facility] [address] [id number] [place] [address] Nov, [facility] [place] [facility] [address] [id number] [place] [address] Nov, [facility] [place] [facility] [address] [id number] [place] [address] Oct, [facility] [place] [facility] [address] [id number] [place] [address] Oct, [facility] [place] [facility] [address] [id number] [place] [address] Oct, [facility] [place] [facility] [address] [id number] [place] [address] September, [facility] [place] [facility] [address] [id number] [place] [address] September, [facility] [place] [facility] [address] [id number] [place] [address] September, [facility] [place] [facility] [address] [id number] [place] [address] September, [facility] [place] [facility] [address] [id number] [place] [address] September, [facility] [address] [id number] [place] [address] September, [facility] [place] [facility] [address] [id number] [place] [address] Aug, [facility] [place] [facility] [address] [id number] [place] [address] Aug, [facility] [place] [facility] [address] [id number] [place] [address] Aug, [facility] [place] [facility] [address] [id number] [place] [address] Jun, [facility] [place] [facility] [address] [id number] [place] [address] Jun, [facility] [place] [facility] [address] [id number] [place] [address] Jun, [facility] [place] [facility] [address] [id number] [place] [address] Jun, [facility] [place] [facility] [address] [id number] [place] [address] May, [facility] [place] [facility] [address] [id number] [place] [address] May, [facility] [place] [facility] [address] [id number] [place] [address] May, [facility] [place] [facility] [address] [id number] [place] [address] May, [facility] [place] [facility] [address] [id number] [place] [address] May, [facility] [place] [facility] [address] [id number] [place] [address] Apr, [facility] [place] [facility] [address] [id number], [place] [address] 20 Apr, 2011 [facility] [place] [facility] [address] [id number] [place] [address] Apr, [facility] [place] [facility] [address] [id number] [place] [address] Apr, [facility] [place] [facility] [address] [id number] [place] [address] Apr, [facility] [place] [facility] [address] [id number], [place] [address] 16 Apr, 2011 [facility] [place] [facility] [address] [id number] [place] [address] Apr, [facility] [place] [facility] [address] [id number] [place] [address] Mar, [facility] [place] [facility] [address] [id number] [place] [address] Mar, [facility] [place] [facility] [address] [id number], [place] [address] 15 Mar, 2011 [facility] [place] [facility] [address] [id number], [place] [address] Feb, [facility] [place] [facility] [address] [id number], [place] [address] 24 Feb, 2011 [facility] [place] [facility] [address] [id number], [place] [address] Feb, [facility] [place] [facility] [address] [id number], [place] [address] Feb, [facility] [place] [facility] [address] [id number], [place] [address] 18 Feb, 2011 [facility] [place] [facility] [address] [id number], [place] [address] 17 Feb, 2011 [facility] [place] [facility] [address] [id number], [place] [address] 13 Jan, 2011 [facility] [place] [facility] [address] [id number] [place] [address] 12 Jan, 2011 [facility] [address] [id number] [place] [address] September, [facility] [address] [id number] [place] [address] 17 Jun, 2010 [facility] [address] [id number] [place] [address] Apr, [facility] [address] [id number] [place] [address] Apr, [facility] [address] [id number] [place] [address], [place] [address] Apr, [facility] [address] [id number] [place] [address] Apr, [facility] [address] [id number] [place] [address] Apr, [facility] [address] [id number] [place] [address] 30 Mar, 2010 [facility] [address] [id number] [place] [address] 24 Mar, 2010 [facility] [address] [facility] [id number] [place] [address] Mar, [facility] [address] [id number] [place] [address] 05 Mar, 2010 [facility] [address] [id number] [place] [address] 27 Feb, 2010 [facility] [address] [id number] [place] [address] 15 Jan, 2010 [facility] [address] [id number] [place] [address] 07 Mar, 2009 [facility] [address] [id number] [place] [address] 15 Jan, 2009 [facility] [address] [facility] [id number] [place] [address] Oct, [facility] [address] [facility] [id number] [place] [address] Apr, IMMUNIZATIONS No Known Immunizations SOCIAL HISTORY Never Assessed REASON FOR VISIT EMR-[facility] [place] PLAN OF CARE [...]
--- OUTSIDE RECORDS SUMMARY | 2018-09-28 03:58 | XMS REPORT ---
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 Name Role Phone Migration, Doctor Unavailable Unavailable PROBLEMS Type Condition ICD9-CM Code REQ88-HS Code Onset Dates Condition Status SNOMED Code Problem Essential hypertension I10 Active 54760509 Problem Bilateral low back pain without sciatica M54.5 Active 248034536 Problem Anxiety F41.9 Active 43210740 Problem Dysuria R30.0 Active 81556408 Problem Irritable bowel syndrome without diarrhea K58.9 Active 67700253 Problem Rhinosinusitis J32.9 Active 659297276 Problem Hypertriglyceridemia E78.1 Active 888156984 Problem Pre-diabetes R73.03 Active 636642782 Problem Alternating constipation and diarrhea R19.8 Active 088413021 Problem Body mass index (BMI) of 40.0-44.9 in adult Z68.41 Active 690967473 Problem Morbid (severe) obesity due to excess calories E66.01 Active 011239229 ALLERGIES No Information ENCOUNTERS Encounter Location Date Diagnosis [place] [id number] [place] [address] 16 Aug, 2018 Acute vaginitis N76.0 [place] [id number] [place] [address] Aug, Rhinosinusitis J32.9 ; Bronchitis J40 ; Folliculitis L73.9 and Morbid obesity E66.01 [facility] [id number] [place] [address] Jul, [place] [address] [address] Jul, [facility] [id number] [place] [address] Jun, [facility] [address] [address] Jun, Acute vaginitis N76.0 ; Dermatitis L30.9 ; BMI 40.0-44.9, adult Z68.41 and Morbid obesity E66.01 [facility] [id number] [place] [address] Jun, Vaginal discharge N89.8 ; Urinary tract infection without hematuria, site unspecified N39.0 and BMI 40.0-44.9, adult Z68.41 [place] [id number] [place] [address] May, [place] [address] [address] May, [place] [address] [address] Apr, Urinary tract infection, site not specified N39.0 [place] [id number] [place] [address] Apr, Dysuria R30.0 ; Urinary tract infection, site not specified N39.0 and Hematuria, unspecified R31.9 [place] [id number] [place] [address] Mar, [place] [id number] [place] [address] Mar, Left anterior knee pain M25.562 ; Abscess of buttock, left L02.31 and BMI 40.0-44.9, adult Z68.41 [place] [id number] [place] [address] 12 Mar, 2018 [facility] [address] [address] 13 Feb, 2018 Abrasion of right ear canal, initial encounter S00.411A ; Left wrist pain M25.532 ; Right acute serous otitis media, recurrence not specified H65.01 and BMI 40.0-44.9, adult Z68.41 [place] [id number] [place] [address] Jan, [place] [address] [address] Jan, [facility] [id number] [place] [address] Jan, BMI 40.0-44.9, adult Z68.41 ; Pre-diabetes R73.03 ; Essential hypertension I10 ; Morbid (severe) obesity due to excess calories E66.01 ; Bilateral low back pain without sciatica M54.5 and Heartburn R12 [place] [address] [address] Jan, History of UTI Z87.440 ; Well woman exam with routine gynecological exam Z01.419 ; Screening for breast cancer Z12.31 ; Candidal vaginitis B37.3 and BMI 40.0-44.9, adult Z68.41 [place] [id number] [place] [address] Jan, [facility] [id number] [place] [address] Jan, Dysuria R30.0 ; Acute cystitis with hematuria N30.01 ; Yeast infection B37.9 and BMI 40.0-44.9, adult Z68.41 [place] [id number] [place] [address] Dec, [place] [id number] [place] [address] Dec, [place] [id number] [place] [address] Nov, History of UTI Z87.440 [place] [id number] [place] [address] Nov, UTI symptoms R39.9 ; Acute nasopharyngitis J00 and BMI 40.0-44.9, adult Z68.41 [facility] [address] [place] [address] Nov, [facility] [id number] [place] [address] Nov, Yeast infection involving the vagina and surrounding area B37.3 [facility] [id number] [address] Nov, Yeast infection involving the vagina and surrounding area B37.3 [facility] [id number] [place] [address] Nov, Yeast infection involving the vagina and surrounding area B37.3 ; Body mass index (BMI) of 40.0-44.9 in adult Z68.41 and Morbid (severe) obesity due to excess calories E66.01 [place] [id number] [place] [address] Oct, Abscess of groin, left L02.214 and Pre-diabetes R73.03 [facility] [address], [place] [address] September, Pre-diabetes R73.03 [facility] [id number] [place] [address] Aug, [facility] [address] [place] [address] Jul, Bilateral low back pain without sciatica M54.5 [facility] [address] [place] [address] Jun, [facility] [id number] [place] [address] Jun, [facility] [id number] [place] [address] Jun, [facility] [address] [place] [address] May, [place] [id number] [place] [address] May, Ingrown left greater toenail L60.0 [place] [address] [address] May, [facility] [address] [address] May, Influenza A J10.1 ; Fever R50.9 and Body aches R52 [facility] [address] [address] Apr, [place] [address] [address] Apr, [place] [address] [address] Apr, [place] [address] [address] Apr, Abscess L02.91 and Obesity (BMI 30-39.9) E66.9 [place] [address] [address] Apr, [place] [address] [address] Apr, [place] [address] [address] Mar, Acute non-recurrent maxillary sinusitis J01.00 [place] [id number] [place] [address] Feb, Heartburn R12 [place] [address] [address] Feb, Heartburn R12 ; Low back pain M54.5 ; Essential hypertension I10 ; Bilateral low back pain without sciatica M54.5 ; Anxiety F41.9 ; Pre-diabetes R73.03 ; Other obesity due to excess calories E66.09 ; Alternating constipation and diarrhea R19.8 ; Dyspepsia R10.13 ; Generalized abdominal pain R10.84 ; Rhinosinusitis J32.9 and Boil L02.92 [place] [id number] [place] [address] Jan, Heartburn R12 [place] [address] [address] Jan, [place] [address] [address] Jan, [place] [id number] [place] [address] Jan, Acute seasonal allergic rhinitis due to pollen J30.1 and Irritable bowel syndrome without diarrhea K58.9 [place] [address] [address] Dec, Low back pain M54.5 and Acute cystitis with hematuria N30.01 [place] [id number] [place] [address] Dec, Low back pain M54.5 and Acute cystitis with hematuria N30.01 [place] [id number] [place] [address] Dec, Heartburn R12 ; Essential hypertension I10 ; Acute non-recurrent maxillary sinusitis J01.00 ; Bilateral low back pain without sciatica M54.5 ; Anxiety F41.9 ; Pre-diabetes R73.03 ; Pain in right foot M79.671 ; Pain in left foot M79.672 ; Other obesity due to excess calories E66.09 and Acute cystitis with hematuria N30.01 [place] [id number] [place] [address] Dec, Bilateral low back pain without sciatica M54.5 ; Acute non-recurrent maxillary sinusitis J01.00 and Pre-diabetes R73.03 [place] [id number] [place] [address] Oct, [facility] [place] [id number] [place] [address] Aug, [facility] [place] [address] [address] Aug, Acute vaginitis N76.0 ; Urinary frequency R35.0 ; Screen for STD (sexually transmitted disease) Z11.3 and Abscess L02.91 [place] [address] [address] Aug, Plantar wart of right foot B07.0 [place] [address] [address] Jul, Plantar wart of right foot B07.0 [place] [address] [address] Jun, [place] [address] [address] Jun, Heartburn R12 ; Essential hypertension I10 ; Anxiety F41.9 ; Folliculitis L73.9 and Plantar wart of right foot B07.0 [place] [id number] [place] [address] Jun, [facility] [place] [id number] [place] [address] May, Low back pain M54.5 and Other chronic pain G89.29 [place] [id number] [place] [address] May, [place] [address] [address] May, [place] [id number] [place] [address] May, Heartburn R12 ; Bilateral low back pain without sciatica M54.5 ; Essential hypertension I10 ; Long-term use of high-risk medication Z79.899 ; Anxiety F41.9 ; Impacted cerumen of right ear H61.21 ; Folliculitis L73.9 ; High risk bisexual behavior Z72.53 and General medical exam Z00.00 [facility] [id number] [place] [address] May, [facility] [address] [address] May, [facility] [address] [address] Mar, Acute nasopharyngitis J00 ; Acute intractable tension-type headache G44.201 and Cough R05 [place] [address] [address] Jan, [facility] [address] [address] Jan, Abscess L02.91 [facility] [address] [address] Jan, Urinary urgency R39.15 and Urinary tract infection without hematuria, site unspecified N39.0 [place] [address] [address] Jan, [facility] [id number] [place] [address] Jan, [place] [address] [address] Dec, [place] [id number] [place] [address] Dec, Dermatofibroma D23.9 [place] [address] [address] September, [facility] [address] [address] Aug, [facility] [address] [place] [address] Aug, Pain in left knee M25.562 ; Heartburn R12 ; Bilateral low back pain without sciatica M54.5 ; Essential hypertension I10 ; Ingrown left big toenail L60.0 ; Chronic pain G89.29 ; Irritable bowel syndrome with constipation K58.9 and Skin infection L08.9 [facility] [address] [address] Aug, [facility] [address] [address] Jul, [facility] [address] [address] Jun, [facility] [id number] [place] [address] Jun, [facility] [address] [address] Jun, [facility] [id number] [place] [address] Jun, [facility] [id number] [place] [address] Jun, Upper respiratory infection J06.9 ; Bilateral low back pain without sciatica M54.5 and Headache R51 [facility] [id number] [place] [address] May, [facility] [id number] [place] [address] Apr, Bilateral low back pain without sciatica M54.5 ; Upper respiratory infection J06.9 and Yeast dermatitis B37.2 [facility] [id number] [place] [address] Apr, [facility] [id number] [place] [address] Apr, [facility] [id number] [place] [address] Feb, [facility] [id number] [place] [address] Feb, [facility] [id number] [place] [address] Feb, [place] [address] [address] Feb, Essential hypertension I10 ; Heartburn R12 ; Irritable bowel syndrome without diarrhea K58.9 ; Bilateral low back pain, with sciatica presence unspecified M54.5 and Upper respiratory infection J06.9 [place] [id number] [place] [address] Feb, [place] [id number] [place] [address] Feb, Generalized anxiety disorder F41.1 and Grief F43.20 [place] [id number] [place] [address] Jan, [place] [id number] [place] [address] Jan, Back pain 724.5 ; Upper respiratory infection 465.9 ; HTN (hypertension) 401.9 and Dyspepsia 536.8 [place] [id number] [place] [address] Dec, [facility] [id number] [place] [address] Nov, Back pain 724.5 ; Abdominal pain, bilateral lower quadrant 789.03 ; GERD (gastroesophageal reflux disease) 530.81 ; Upper respiratory infection 465.9 ; Dysuria 788.1 and HTN (hypertension) 401.9 [place] [id number] [place] [address] Nov, [place] [id number] [place] [address] Nov, [facility] [address], [place] [address] Nov, [facility] [id number] [place] [address] Nov, Cough 786.2 [facility] [id number] [place] [address] Nov, Cough 786.2 [facility] [id number] [place] [address] Oct, Unspecified episodic mood disorder 296.90 and Anxiety disorder, unspecified 300.00 [facility] [id number] [place] [address] Oct, Abdominal pain, left upper quadrant 789.02 ; Essential hypertension, benign 401.1 ; Irritable bowel syndrome 564.1 ; Abscess 682.9 ; Heartburn 787.1 ; Acute sinusitis, unspecified 461.9 ; Muscle spasm of back 724.8 ; Cough 786.2 and Skin tag 701.9 [facility] [address] [place] [address] September, [facility] [id number] [place] [address] September, [facility] [address], [place] [address] September, [facility] [address], [place] [address] Aug, [facility] [id number] [place] [address] Aug, [facility] [id number] [place] [address] Jul, [facility] [address], [place] [address] Jul, [facility] [place] [facility] [address] [id number] [place] [address] Jul, [facility] [place] [facility] [address] [id number] [place] [address] Jul, [facility] [place] [facility] [address] [id number] [place] [address] Jul, [facility] [place] [facility] [address] [id number] [place] [address] Jul, [facility] [place] [facility] [address] [id number] [place] [address] Jul, [facility] [place] [facility] [address] [id number] [place] [address] Jul, [facility] [place] [facility] [address] [id number] [place] [address] Jul, [facility] [place] [facility] [address] [id number] [place] [address] Jul, [facility] [place] [facility] [address] [id number] [place] [address] Jul, [facility] [place] [facility] [address] [id number] [place] [address] Jul, [facility] [place] [facility] [address] [id number] [place] [address] Jul, [facility] [place] [facility] [address] [id number] [place] [address] Jul, [facility] [place] [facility] [address] [id number] [place] [address] Jul, [facility] [place] [facility] [address] [id number] [place] [address] Jul, [facility] [place] [facility] [address] [id number] [place] [address] Jul, [facility] [place] [facility] [address] [id number] [place] [address] Jun, 2014 [facility] [place] [facility] [address] [id number] [place] [address] Jun, 2014 [facility] [place] [facility] [address] [id number] [place] [address] Jun, 2014 [facility] [place] [facility] [address] [facility] [id number] [place] [address] Jun, 2014 [facility] [place] [facility] [address] [id number] [place] [address] Jun, 2014 [facility] [place] [facility] [address] [id number] [place] [address] Jun, 2014 [facility] [place] [facility] [address] [facility] [id number] [place] [address] Jun, 2014 [facility] [place] [facility] [address] [facility] [id number] [place] [address] Jun, 2014 [facility] [place] [facility] [address] [facility] [id number] [place] [address] 29 Apr, 2014 [facility] [place] [facility] [address] [facility] [id number] [place] [address] 29 Apr, 2014 [facility] [place] [facility] [address] [facility] [id number] [place] [address] Apr, [facility] [place] [facility] [address] [facility] [id number] [place] [address] 23 Apr, 2014 [facility] [place] [facility] [address] [facility] [id number] [place] [address] 18 Apr, 2014 [facility] [place] [facility] [address] [facility] [id number] [place] [address] 18 Apr, 2014 [facility] [place] [facility] [address] [facility] [id number] [place] [address] 15 Apr, 2014 [facility] [place] [facility] [address] [facility] [id number] [place] [address] 15 Apr, 2014 [facility] [place] [facility] [address] [id number] [place] [address] Apr, [facility] [place] [facility] [address] [id number] [place] [address] Apr, [facility] [place] [facility] [address] [id number] [place] [address] Apr, [facility] [place] [facility] [address] [id number] [place] [address] Apr, [facility] [place] [facility] [address] [id number] [place] [address] Apr, [facility] [place] [facility] [address] [id number] [place] [address] Apr, [facility] [place] [facility] [address] [id number] [place] [address] Apr, [facility] [place] [facility] [address] [id number] [place] [address] Feb, [facility] [place] [facility] [address] [id number] [place] [address] Feb, [facility] [place] [facility] [address] [id number] [place] [address] Feb, [facility] [place] [facility] [address] [id number] [place] [address] Feb, [facility] [place] [facility] [address] [id number] [place] [address] Feb, [facility] [place] [facility] [address] [id number] [place] [address] Feb, [facility] [place] [facility] [address] [id number] [place] [address] Jan, [facility] [place] [facility] [address] [id number] [place] [address] 08 Jan, 2014 [facility] [place] [facility] [address] [id number] [place] [address] Jan, [facility] [place] [facility] [address] [id number] [place] [address] Jan, 2013 [facility] [place] [facility] [address] [id number] [place] [address] Jan, [facility] [place] [facility] [address] [id number] [place] [address] Jan, [facility] [place] [facility] [address] [id number] [place] [address] Dec, [facility] [place] [facility] [address] [id number] [place] [address] Dec, [facility] [place] [facility] [address] [id number] [place] [address] Dec, [facility] [place] [facility] [address] [id number] [place] [address] Dec, [facility] [place] [facility] [address] [id number] [place] [address] Nov, [facility] [place] [facility] [address] [id number] [place] [address] Nov, [facility] [place] [facility] [address] [id number] [place] [address] Nov, [facility] [place] [facility] [address] [id number] [place] [address] Nov, [facility] [place] [facility] [address] [id number] [place] [address] Nov, [facility] [place] [facility] [address] [id number] [place] [address] Nov, [facility] [place] [facility] [address] [id number] [place] [address] Nov, [facility] [place] [facility] [address] [id number] [place] [address] Nov, [facility] [place] [facility] [address] [id number] [place] [address] 30 Oct, 2013 [facility] [place] [facility] [address] [id number] [place] [address] Oct, [facility] [place] [facility] [address] [id number] [place] [address] Oct, [facility] [place] [facility] [address] [id number] [place] [address] Oct, [facility] [place] [facility] [address] [id number] [place] [address] Oct, [facility] [place] [facility] [address] [id number] [place] [address] Oct, [facility] [place] [facility] [address] [id number] [place] [address] Oct, [facility] [place] [facility] [address] [id number] [place] [address] Oct, [facility] [place] [facility] [address] [id number] [place] [address] Oct, [facility] [place] [facility] [address] [id number] [place] [address] Oct, [facility] [place] [facility] [address] [id number] [place] [address] Oct, [facility] [place] [facility] [address] [id number] [place] [address] Oct, [facility] [place] [facility] [address] [id number] [place] [address] Oct, [facility] [place] [facility] [address] [id number] [place] [address] Oct, [facility] [place] [facility] [address] [id number] [place] [address] Oct, [facility] [place] [facility] [address] [id number] [place] [address] Oct, [facility] [facility] [address] [id number] [place] [address] Oct, [facility] [place] [facility] [address] [id number] [place] [address] Oct, [facility] [place] [facility] [address] [id number] [place] [address] Oct, [facility] [place] [facility] [address] [id number] [place] [address] Oct, [facility] [place] [facility] [address] [id number] [place] [address] Oct, [facility] [place] [facility] [address] [id number] [place] [address] Oct, [facility] [place] [facility] [address] [id number] [place] [address] Oct, [facility] [place] [facility] [address] [id number] [place] [address] Oct, [facility] [place] [facility] [address] [id number] [place] [address] Oct, [facility] [place] [facility] [address] [id number] [place] [address] Oct, [facility] [place] [facility] [address] [id number] [place] [address] Oct, [facility] [place] [facility] [address] [id number] [place] [address] Oct, [facility] [place] [facility] [address] [id number] [place] [address] Oct, [facility] [place] [facility] [address] [id number] [place] [address] Oct, [facility] [place] [address] [id number] [place] [address] September, [facility] [place] [facility] [address] [id number] [place] [address] September, [facility] [address] [id number] [place] [address] September, [facility] [address] [id number] [place] [address] September, [facility] [address] [id number] [place] [address] September, [facility] [address] [id number] [place] [address] September, [facility] [address] [id number] [place] [address] September, [facility] [address] [id number] [place] [address] September, [facility] [address] [id number] [place] [address] September, [facility] [address] [id number] [place] [address] September, [facility] [address] [id number] [place] [address] September, [facility] [facility] [address] [id number] [place] [address] September, [facility] [address] [id number] [place] [address] September, [facility] [facility] [address] [id number] [place] [address] September, [facility] [address] [id number] [place] [address] September, [facility] [address] [id number] [place] [address] September, [facility] [address] [id number] [place] [address] September, [facility] [address] [id number] [place] [address] September, [facility] [address] [id number] [place] [address] Aug, [facility] [facility] [address] [id number] [place] [address] Aug, [facility] [address] [id number] [place] [address] Aug, [facility] [address] [id number] [place] [address] Aug, [facility] [place] [facility] [address] [id number] [place] [address] Aug, [facility] [place] [facility] [address] [id number] [place] [address] Aug, [facility] [address] [id number] [place] [address] Jul, [facility] [facility] [address] [id number] [place] [address] Jul, [facility] [facility] [address] [id number] [place] [address] Jul, [facility] [address] [id number] [place] [address] Jul, [facility] [address] [id number] [place] [address] Jun, [facility] [address] [id number] [place] [address] Jun, [facility] [address] [id number] [place] [address] Jun, [facility] [address] [id number] [place] [address] Jun, [facility] [place] [facility] [address] [id number] [place] [address] 14 Mar, 2013 [facility] [address] [id number] [place] [address] 14 Mar, 2013 [facility] [address] [id number] [place] [address] 13 Mar, 2013 [facility] [address] [id number] [place] [address] Mar, [facility] [address] [id number] [place] [address] Feb, [facility] [address] [id number] [place] [address] Feb, [facility] [address] [id number] [place] [address] Feb, [facility] [address] [id number] [place] [address] Jan, [facility] [address] [id number] [place] [address] Jan, [facility] [address] [id number] [place] [address] 12 Jan, 2013 [facility] [address] [id number] [place] [address] 05 Jan, 2013 [facility] [address] [id number], [place] [address] Dec, [facility] [address] [id number], [place] [address] 15 Dec, 2012 [facility] [address] [id number] [place] [address] Dec, [facility] [address] [id number], [place] [address] Dec, [facility] [address] [id number] [place] [address] Nov, [facility] [address] [id number] [place] [address] Nov, [facility] [address] [id number] [place] [address] Nov, [facility] [address] [id number] [place] [address] Nov, [facility] [address] [id number] [place] [address] Nov, [facility] [address] [id number] [place] [address] Nov, [facility] [address] [id number] [place] [address] Oct, [facility] [address] [id number] [place] [address] Oct, [facility] [address] [id number] [place] [address] Oct, [facility] [address] [id number] [place] [address] Oct, [facility] [address] [id number] [place] [address] 17 Oct, 2012 [facility] [address] [id number] [place] [address] 16 Oct, 2012 [facility] [address] [id number] [place] [address] 14 Oct, 2012 [facility] [address] [id number] [place] [address] 13 Oct, 2012 [facility] [address] [id number] [place] [address] Oct, [facility] [address] [id number] [place] [address] 07 Oct, 2012 [facility] [address] [id number] [place] [address] September, [facility] [address] [id number] [place] [address] September, [facility] [address] [id number] [place] [address] September, [facility] [address] [id number] [place] [address] Aug, [facility] [address] [id number] [place] [address] Aug, [facility] [address] [id number] [place] [address] Aug, [facility] [address] [id number] [place] [address] Aug, [facility] [address] [id number] [place] [address] Jul, [facility] [address] [id number] [place] [address] Jul, [facility] [address] [id number] [place] [address] Jul, [facility] [address] [id number] [place] [address] Jul, [facility] [address] [id number] [place] [address] Jul, [facility] [address] [id number] [place] [address] Jul, [facility] [address] [id number] [place] [address] May, [facility] [address] [id number] [place] [address] May, [facility] [address] [id number] [place] [address] May, [facility] [address] [id number] [place] [address] May, [facility] [address] [id number] [place] [address] May, [facility] [address] [id number] [place] [address] May, [facility] [address] [id number] [place] [address] May, [facility] [address] [id number] [place] [address] 18 May, 2012 [facility] [address] [id number] [place] [address] May, [facility] [address] [id number] [place] [address] 17 May, 2012 [facility] [address] [id number] [place] [address] May, [facility] [address] [id number] [place] [address] Apr, [facility] [address] [id number] [place] [address] Apr, [facility] [address] [id number] [place] [address] Apr, [facility] [address] [id number] [place] [address] Apr, [facility] [address] [id number] [place] [address] Apr, [facility] [address] [id number] [place] [address] Apr, [facility] [address] [id number] [place] [address] Mar, [facility] [address] [id number] [place] [address] Mar, [facility] [address] [id number] [place] [address] 08 Mar, 2012 [facility] [address] [id number] [place] [address] Mar, [facility] [facility] [address] [id number] [place] [address] Mar, [facility] [address] [id number] [place] [address] Mar, [facility] [address] [id number] [place] [address] Mar, [facility] [facility] [address] [id number] [place] [address] Mar, [facility] [address] [id number] [place] [address] Feb, [facility] [address] [id number] [place] [address] Feb, [facility] [place] [facility] [address] [id number] [place] [address] 16 Feb, 2012 [facility] [facility] [address] [facility] [id number] [place] [address] 15 Feb, 2012 [facility] [facility] [address] [facility] [id number] [place] [address] 15 Feb, 2012 [facility] [address] [facility] [id number] [place] [address] 13 Feb, 2012 [facility] [address] [id number], [place] [address] Feb, [facility] [place] [address] [id number] [place] [address] Feb, [facility] [place] [facility] [address] [facility] [id number] [place] [address] Feb, [facility] [address] [facility] [id number] [place] [address] Feb, [facility] [place] [facility] [address] [id number] [place] [address] Feb, [facility] [facility] [address] [id number] [place] [address] Feb, [facility] [facility] [address] [id number] [place] [address] Feb, [facility] [place] [facility] [address] [id number] [place] [address] Feb, [facility] [place] [facility] [address] [id number] [place] [address] Feb, [facility] [facility] [address] [id number] [place] [address] Feb, [facility] [place] [facility] [address] [id number] [place] [address] Feb, [facility] [place] [facility] [address] [id number] [place] [address] Feb, [facility] [place] [facility] [address] [id number] [place] [address] 19 Jan, 2012 [facility] [facility] [address] [id number], [place] [address] 13 Jan, 2012 [facility] [facility] [address] [id number], [place] [address] 11 Jan, 2012 [facility] [facility] [address] [id number], [place] [address] 10 Jan, 2012 [facility] [place] [facility] [address] [id number] [place] [address] 05 Jan, 2012 [facility] [place] [facility] [address] [id number] [place] [address] Dec, [facility] [place] [facility] [address] [id number], [place] [address] Dec, [facility] [place] [facility] [address] [id number], [place] [address] Dec, [facility] [place] [facility] [address] [id number] [place] [address] Dec, [facility] [place] [facility] [address] [id number] [place] [address] Dec, [facility] [place] [facility] [address] [id number] [place] [address] Dec, [facility] [place] [facility] [address] [id number] [place] [address] Nov, [facility] [place] [facility] [address] [id number] [place] [address] Nov, [facility] [place] [facility] [address] [id number] [place] [address] Nov, [facility] [place] [facility] [address] [id number] [place] [address] Nov, [facility] [place] [facility] [address] [id number] [place] [address] Nov, [facility] [place] [facility] [address] [id number] [place] [address] Oct, [facility] [place] [facility] [address] [id number] [place] [address] Oct, [facility] [place] [facility] [address] [id number] [place] [address] Oct, [facility] [place] [facility] [address] [id number] [place] [address] September, [facility] [place] [facility] [address] [id number] [place] [address] September, [facility] [place] [facility] [address] [id number] [place] [address] September, [facility] [place] [facility] [address] [id number] [place] [address] September, [facility] [place] [facility] [address] [id number] [place] [address] September, [facility] [address] [id number] [place] [address] September, [facility] [place] [facility] [address] [id number] [place] [address] Aug, [facility] [place] [facility] [address] [id number] [place] [address] Aug, [facility] [place] [facility] [address] [id number] [place] [address] Aug, [facility] [place] [facility] [address] [id number] [place] [address] Jun, [facility] [place] [facility] [address] [id number] [place] [address] Jun, [facility] [place] [facility] [address] [id number] [place] [address] Jun, [facility] [place] [facility] [address] [id number] [place] [address] Jun, [facility] [place] [facility] [address] [id number] [place] [address] May, [facility] [place] [facility] [address] [id number] [place] [address] May, [facility] [facility] [address] [id number] [place] [address] May, [facility] [place] [facility] [address] [id number] [place] [address] May, [facility] [place] [facility] [address] [id number] [place] [address] May, [facility] [place] [facility] [address] [id number] [place] [address] Apr, [facility] [place] [facility] [address] [id number], [place] [address] 20 Apr, 2011 [facility] [place] [facility] [address] [id number] [place] [address] Apr, [facility] [place] [facility] [address] [id number] [place] [address] Apr, [facility] [place] [facility] [address] [id number] [place] [address] Apr, [facility] [place] [facility] [address] [id number], [place] [address] 16 Apr, 2011 [facility] [place] [facility] [address] [id number] [place] [address] Apr, [facility] [place] [facility] [address] [id number] [place] [address] Mar, [facility] [place] [facility] [address] [id number] [place] [address] Mar, [facility] [place] [facility] [address] [id number], [place] [address] 15 Mar, 2011 [facility] [place] [facility] [address] [id number], [place] [address] Feb, [facility] [place] [facility] [address] [id number], [place] [address] 24 Feb, 2011 [facility] [place] [facility] [address] [id number], [place] [address] Feb, [facility] [place] [facility] [address] [id number], [place] [address] Feb, [facility] [place] [facility] [address] [id number], [place] [address] 18 Feb, 2011 [facility] [place] [facility] [address] [id number], [place] [address] 17 Feb, 2011 [facility] [place] [facility] [address] [id number], [place] [address] 13 Jan, 2011 [facility] [place] [facility] [address] [id number] [place] [address] 12 Jan, 2011 [facility] [address] [id number] [place] [address] September, [facility] [address] [id number] [place] [address] 17 Jun, 2010 [facility] [address] [id number] [place] [address] Apr, [facility] [address] [id number] [place] [address] Apr, [facility] [address] [id number] [place] [address], [place] [address] Apr, [facility] [address] [id number] [place] [address] Apr, [facility] [address] [id number] [place] [address] Apr, [facility] [address] [id number] [place] [address] 30 Mar, 2010 [facility] [address] [id number] [place] [address] 24 Mar, 2010 [facility] [address] [facility] [id number] [place] [address] Mar, [facility] [address] [id number] [place] [address] 05 Mar, 2010 [facility] [address] [id number] [place] [address] 27 Feb, 2010 [facility] [address] [id number] [place] [address] 15 Jan, 2010 [facility] [address] [id number] [place] [address] 07 Mar, 2009 [facility] [address] [id number] [place] [address] 15 Jan, 2009 [facility] [address] [facility] [id number] [place] [address] Oct, [facility] [address] [facility] [id number] [place] [address] Apr, IMMUNIZATIONS No Known Immunizations SOCIAL HISTORY Never Assessed REASON FOR VISIT EMR-[facility] PLAN OF CARE VITAL SIGNS MEDICATIONS Unknown [...]
--- OUTSIDE RECORDS SUMMARY | 2018-09-28 03:59 | XMS REPORT ---
Author Author Migration, Doctor Organization [facility] Address Unknown Phone Unavailable Care Team Providers Care Jointer Machine Name Role Phone Migration, Doctor Unavailable Unavailable PROBLEMS Type Condition ICD9-CM Code XOE10-XA Code Onset Dates Condition Status SNOMED Code Problem Essential hypertension I10 Active 49676449 Problem Bilateral low back pain without sciatica M54.5 Active 329065664 Problem Anxiety F41.9 Active 33346609 Problem Dysuria R30.0 Active 76193535 Problem Irritable bowel syndrome without diarrhea K58.9 Active 58796335 Problem Rhinosinusitis J32.9 Active 022670756 Problem Hypertriglyceridemia E78.1 Active 868688659 Problem Pre-diabetes R73.03 Active 564714811 Problem Alternating constipation and diarrhea R19.8 Active 323009328 Problem Body mass index (BMI) of 40.0-44.9 in adult Z68.41 Active 450396610 Problem Morbid (severe) obesity due to excess calories E66.01 Active 195350647 ALLERGIES No Information ENCOUNTERS Encounter Location Date Diagnosis [place] [id number] [place] [address] 16 Aug, 2018 Acute vaginitis N76.0 [place] [id number] [place] [address] Aug, Rhinosinusitis J32.9 ; Bronchitis J40 ; Folliculitis L73.9 and Morbid obesity E66.01 [facility] [id number] [place] [address] Jul, [place] [address] [address] Jul, [facility] [id number] [place] [address] Jun, [facility] [address] [address] Jun, Acute vaginitis N76.0 ; Dermatitis L30.9 ; BMI 40.0-44.9, adult Z68.41 and Morbid obesity E66.01 [facility] [id number] [place] [address] Jun, Vaginal discharge N89.8 ; Urinary tract infection without hematuria, site unspecified N39.0 and BMI 40.0-44.9, adult Z68.41 [place] [id number] [place] [address] May, [place] [address] [address] May, [place] [address] [address] Apr, Urinary tract infection, site not specified N39.0 [place] [id number] [place] [address] Apr, Dysuria R30.0 ; Urinary tract infection, site not specified N39.0 and Hematuria, unspecified R31.9 [place] [id number] [place] [address] Mar, [place] [id number] [place] [address] Mar, Left anterior knee pain M25.562 ; Abscess of buttock, left L02.31 and BMI 40.0-44.9, adult Z68.41 [place] [id number] [place] [address] 12 Mar, 2018 [facility] [address] [address] 13 Feb, 2018 Abrasion of right ear canal, initial encounter S00.411A ; Left wrist pain M25.532 ; Right acute serous otitis media, recurrence not specified H65.01 and BMI 40.0-44.9, adult Z68.41 [place] [id number] [place] [address] Jan, [place] [address] [address] Jan, [facility] [id number] [place] [address] Jan, BMI 40.0-44.9, adult Z68.41 ; Pre-diabetes R73.03 ; Essential hypertension I10 ; Morbid (severe) obesity due to excess calories E66.01 ; Bilateral low back pain without sciatica M54.5 and Heartburn R12 [place] [address] [address] Jan, History of UTI Z87.440 ; Well woman exam with routine gynecological exam Z01.419 ; Screening for breast cancer Z12.31 ; Candidal vaginitis B37.3 and BMI 40.0-44.9, adult Z68.41 [place] [id number] [place] [address] Jan, [facility] [id number] [place] [address] Jan, Dysuria R30.0 ; Acute cystitis with hematuria N30.01 ; Yeast infection B37.9 and BMI 40.0-44.9, adult Z68.41 [place] [id number] [place] [address] Dec, [place] [id number] [place] [address] Dec, [place] [id number] [place] [address] Nov, History of UTI Z87.440 [place] [id number] [place] [address] Nov, UTI symptoms R39.9 ; Acute nasopharyngitis J00 and BMI 40.0-44.9, adult Z68.41 [facility] [address] [address] Nov, [facility] [id number] [place] [address] Nov, Yeast infection involving the vagina and surrounding area B37.3 [facility] [id number] [address] Nov, Yeast infection involving the vagina and surrounding area B37.3 [facility] [id number] [place] [address] Nov, Yeast infection involving the vagina and surrounding area B37.3 ; Body mass index (BMI) of 40.0-44.9 in adult Z68.41 and Morbid (severe) obesity due to excess calories E66.01 [place] [id number] [place] [address] Oct, Abscess of groin, left L02.214 and Pre-diabetes R73.03 [facility] [address] [address] September, Pre-diabetes R73.03 [facility] [id number] [place] [address] Aug, [facility] [address] [address] Jul, Bilateral low back pain without sciatica M54.5 [facility] [address] [address] Jun, [facility] [id number] [place] [address] Jun, [facility] [address] [address] Jun, [facility] [address] [address] May, [place] [id number] [place] [address] May, Ingrown left greater toenail L60.0 [place] [address] [address] May, [facility] [address] [address] May, Influenza A J10.1 ; Fever R50.9 and Body aches R52 [facility] [address] [address] Apr, [place] [address] [address] Apr, [place] [address] [address] Apr, [place] [address] [address] Apr, Abscess L02.91 and Obesity (BMI 30-39.9) E66.9 [place] [address] [address] Apr, [place] [address] [address] Apr, [place] [address] [address] Mar, Acute non-recurrent maxillary sinusitis J01.00 [place] [id number] [place] [address] Feb, Heartburn R12 [place] [address] [address] Feb, Heartburn R12 ; Low back pain M54.5 ; Essential hypertension I10 ; Bilateral low back pain without sciatica M54.5 ; Anxiety F41.9 ; Pre-diabetes R73.03 ; Other obesity due to excess calories E66.09 ; Alternating constipation and diarrhea R19.8 ; Dyspepsia R10.13 ; Generalized abdominal pain R10.84 ; Rhinosinusitis J32.9 and Boil L02.92 [place] [id number] [place] [address] Jan, Heartburn R12 [place] [address] [address] Jan, [place] [address] [address] Jan, [place] [id number] [place] [address] Jan, Acute seasonal allergic rhinitis due to pollen J30.1 and Irritable bowel syndrome without diarrhea K58.9 [place] [address] [address] Dec, Low back pain M54.5 and Acute cystitis with hematuria N30.01 [place] [id number] [place] [address] Dec, Low back pain M54.5 and Acute cystitis with hematuria N30.01 [place] [id number] [place] [address] Dec, Heartburn R12 ; Essential hypertension I10 ; Acute non-recurrent maxillary sinusitis J01.00 ; Bilateral low back pain without sciatica M54.5 ; Anxiety F41.9 ; Pre-diabetes R73.03 ; Pain in right foot M79.671 ; Pain in left foot M79.672 ; Other obesity due to excess calories E66.09 and Acute cystitis with hematuria N30.01 [place] [id number] [place] [address] Dec, Bilateral low back pain without sciatica M54.5 ; Acute non-recurrent maxillary sinusitis J01.00 and Pre-diabetes R73.03 [place] [id number] [place] [address] Oct, [facility] [place] [id number] [place] [address] Aug, [facility] [place] [address] [address] Aug, Acute vaginitis N76.0 ; Urinary frequency R35.0 ; Screen for STD (sexually transmitted disease) Z11.3 and Abscess L02.91 [place] [address] [address] Aug, Plantar wart of right foot B07.0 [place] [address] [address] Jul, Plantar wart of right foot B07.0 [place] [address] [address] Jun, [place] [address] [address] Jun, Heartburn R12 ; Essential hypertension I10 ; Anxiety F41.9 ; Folliculitis L73.9 and Plantar wart of right foot B07.0 [place] [id number] [place] [address] Jun, [facility] [place] [id number] [place] [address] May, Low back pain M54.5 and Other chronic pain G89.29 [place] [id number] [place] [address] May, [place] [address] [address] May, [place] [id number] [place] [address] May, Heartburn R12 ; Bilateral low back pain without sciatica M54.5 ; Essential hypertension I10 ; Long-term use of high-risk medication Z79.899 ; Anxiety F41.9 ; Impacted cerumen of right ear H61.21 ; Folliculitis L73.9 ; High risk bisexual behavior Z72.53 and General medical exam Z00.00 [facility] [id number] [place] [address] May, [facility] [address] [address] May, [facility] [address] [address] Mar, Acute nasopharyngitis J00 ; Acute intractable tension-type headache G44.201 and Cough R05 [place] [address] [address] Jan, [facility] [address] [address] Jan, Abscess L02.91 [facility] [address] [address] Jan, Urinary urgency R39.15 and Urinary tract infection without hematuria, site unspecified N39.0 [place] [address] [address] Jan, [facility] [id number] [place] [address] Jan, [place] [address] [address] Dec, [place] [id number] [place] [address] Dec, Dermatofibroma D23.9 [place] [address] [address] September, [facility] [address] [address] Aug, [facility] [address] [place] [address] Aug, Pain in left knee M25.562 ; Heartburn R12 ; Bilateral low back pain without sciatica M54.5 ; Essential hypertension I10 ; Ingrown left big toenail L60.0 ; Chronic pain G89.29 ; Irritable bowel syndrome with constipation K58.9 and Skin infection L08.9 [facility] [address] [address] Aug, [facility] [address] [address] Jul, [facility] [address] [address] Jun, [facility] [id number] [place] [address] Jun, [facility] [address] [address] Jun, [facility] [id number] [place] [address] Jun, [facility] [id number] [place] [address] Jun, Upper respiratory infection J06.9 ; Bilateral low back pain without sciatica M54.5 and Headache R51 [facility] [id number] [place] [address] May, [facility] [id number] [place] [address] Apr, Bilateral low back pain without sciatica M54.5 ; Upper respiratory infection J06.9 and Yeast dermatitis B37.2 [facility] [id number] [place] [address] Apr, [facility] [id number] [place] [address] Apr, [facility] [id number] [place] [address] Feb, [facility] [id number] [place] [address] Feb, [facility] [id number] [place] [address] Feb, [place] [address] [address] Feb, Essential hypertension I10 ; Heartburn R12 ; Irritable bowel syndrome without diarrhea K58.9 ; Bilateral low back pain, with sciatica presence unspecified M54.5 and Upper respiratory infection J06.9 [place] [id number] [place] [address] Feb, [place] [id number] [place] [address] Feb, Generalized anxiety disorder F41.1 and Grief F43.20 [place] [id number] [place] [address] Jan, [place] [id number] [place] [address] Jan, Back pain 724.5 ; Upper respiratory infection 465.9 ; HTN (hypertension) 401.9 and Dyspepsia 536.8 [place] [id number] [place] [address] Dec, [facility] [id number] [place] [address] Nov, Back pain 724.5 ; Abdominal pain, bilateral lower quadrant 789.03 ; GERD (gastroesophageal reflux disease) 530.81 ; Upper respiratory infection 465.9 ; Dysuria 788.1 and HTN (hypertension) 401.9 [place] [id number] [place] [address] Nov, [place] [id number] [place] [address] Nov, [facility] [address] [address] Nov, [facility] [id number] [place] [address] Nov, Cough 786.2 [facility] [id number] [place] [address] Nov, Cough 786.2 [facility] [id number] [place] [address] Oct, Unspecified episodic mood disorder 296.90 and Anxiety disorder, unspecified 300.00 [facility] [id number] [place] [address] Oct, Abdominal pain, left upper quadrant 789.02 ; Essential hypertension, benign 401.1 ; Irritable bowel syndrome 564.1 ; Abscess 682.9 ; Heartburn 787.1 ; Acute sinusitis, unspecified 461.9 ; Muscle spasm of back 724.8 ; Cough 786.2 and Skin tag 701.9 [facility] [address] [place] [address] September, [facility] [id number] [place] [address] September, [facility] [address] [address] September, [facility] [address] [address] Aug, [facility] [id number] [place] [address] Aug, [facility] [id number] [place] [address] Jul, [facility] [address] [address] Jul, [facility] [place] [facility] [address] [id number] [place] [address] Jul, [facility] [place] [facility] [address] [id number] [place] [address] Jul, [facility] [place] [facility] [address] [id number] [place] [address] Jul, [facility] [place] [facility] [address] [id number] [place] [address] Jul, [facility] [place] [facility] [address] [id number] [place] [address] Jul, [facility] [place] [facility] [address] [id number] [place] [address] Jul, [facility] [place] [facility] [address] [id number] [place] [address] Jul, [facility] [place] [facility] [address] [id number] [place] [address] Jul, [facility] [place] [facility] [address] [id number] [place] [address] Jul, [facility] [place] [facility] [address] [id number] [place] [address] Jul, [facility] [place] [facility] [address] [id number] [place] [address] Jul, [facility] [place] [facility] [address] [id number] [place] [address] Jul, [facility] [place] [facility] [address] [id number] [place] [address] Jul, [facility] [place] [facility] [address] [id number] [place] [address] Jul, [facility] [place] [facility] [address] [id number] [place] [address] Jul, [facility] [place] [facility] [address] [id number] [place] [address] Jun, 2014 [facility] [place] [facility] [address] [id number] [place] [address] Jun, 2014 [facility] [place] [facility] [address] [id number] [place] [address] Jun, 2014 [facility] [place] [facility] [address] [facility] [id number] [place] [address] Jun, 2014 [facility] [place] [facility] [address] [id number] [place] [address] Jun, 2014 [facility] [place] [facility] [address] [id number] [place] [address] Jun, 2014 [facility] [place] [facility] [address] [facility] [id number] [place] [address] Jun, 2014 [facility] [place] [facility] [address] [facility] [id number] [place] [address] Jun, 2014 [facility] [place] [facility] [address] [facility] [id number] [place] [address] 29 Apr, 2014 [facility] [place] [facility] [address] [facility] [id number] [place] [address] 29 Apr, 2014 [facility] [place] [facility] [address] [facility] [id number] [place] [address] Apr, [facility] [place] [facility] [address] [facility] [id number] [place] [address] 23 Apr, 2014 [facility] [place] [facility] [address] [facility] [id number] [place] [address] 18 Apr, 2014 [facility] [place] [facility] [address] [facility] [id number] [place] [address] 18 Apr, 2014 [facility] [place] [facility] [address] [facility] [id number] [place] [address] 15 Apr, 2014 [facility] [place] [facility] [address] [facility] [id number] [place] [address] 15 Apr, 2014 [facility] [place] [facility] [address] [id number] [place] [address] Apr, [facility] [place] [facility] [address] [id number] [place] [address] Apr, [facility] [place] [facility] [address] [id number] [place] [address] Apr, [facility] [place] [facility] [address] [id number] [place] [address] Apr, [facility] [place] [facility] [address] [id number] [place] [address] Apr, [facility] [place] [facility] [address] [id number] [place] [address] Apr, [facility] [place] [facility] [address] [id number] [place] [address] Apr, [facility] [place] [facility] [address] [id number] [place] [address] Feb, [facility] [place] [facility] [address] [id number] [place] [address] Feb, [facility] [place] [facility] [address] [id number] [place] [address] Feb, [facility] [place] [facility] [address] [id number] [place] [address] Feb, [facility] [place] [facility] [address] [id number] [place] [address] Feb, [facility] [place] [facility] [address] [id number] [place] [address] Feb, [facility] [place] [facility] [address] [id number] [place] [address] Jan, [facility] [place] [facility] [address] [id number] [place] [address] 08 Jan, 2014 [facility] [place] [facility] [address] [id number] [place] [address] Jan, [facility] [place] [facility] [address] [id number] [place] [address] Jan, 2013 [facility] [place] [facility] [address] [id number] [place] [address] Jan, [facility] [place] [facility] [address] [id number] [place] [address] Jan, [facility] [place] [facility] [address] [id number] [place] [address] Dec, [facility] [place] [facility] [address] [id number] [place] [address] Dec, [facility] [place] [facility] [address] [id number] [place] [address] Dec, [facility] [place] [facility] [address] [id number] [place] [address] Dec, [facility] [place] [facility] [address] [id number] [place] [address] Nov, [facility] [place] [facility] [address] [id number] [place] [address] Nov, [facility] [place] [facility] [address] [id number] [place] [address] Nov, [facility] [place] [facility] [address] [id number] [place] [address] Nov, [facility] [place] [facility] [address] [id number] [place] [address] Nov, [facility] [place] [facility] [address] [id number] [place] [address] Nov, [facility] [place] [facility] [address] [id number] [place] [address] Nov, [facility] [place] [facility] [address] [id number] [place] [address] Nov, [facility] [place] [facility] [address] [id number] [place] [address] 30 Oct, 2013 [facility] [place] [facility] [address] [id number] [place] [address] Oct, [facility] [place] [facility] [address] [id number] [place] [address] Oct, [facility] [place] [facility] [address] [id number] [place] [address] Oct, [facility] [place] [facility] [address] [id number] [place] [address] Oct, [facility] [place] [facility] [address] [id number] [place] [address] Oct, [facility] [place] [facility] [address] [id number] [place] [address] Oct, [facility] [place] [facility] [address] [id number] [place] [address] Oct, [facility] [place] [facility] [address] [id number] [place] [address] Oct, [facility] [place] [facility] [address] [id number] [place] [address] Oct, [facility] [place] [facility] [address] [id number] [place] [address] Oct, [facility] [place] [facility] [address] [id number] [place] [address] Oct, [facility] [place] [facility] [address] [id number] [place] [address] Oct, [facility] [place] [facility] [address] [id number] [place] [address] Oct, [facility] [place] [facility] [address] [id number] [place] [address] Oct, [facility] [place] [facility] [address] [id number] [place] [address] Oct, [facility] [place] [facility] [address] [id number] [place] [address] Oct, [facility] [place] [facility] [address] [id number] [place] [address] Oct, [facility] [place] [facility] [address] [id number] [place] [address] Oct, [facility] [place] [facility] [address] [id number] [place] [address] Oct, [facility] [place] [facility] [address] [id number] [place] [address] Oct, [facility] [place] [facility] [address] [id number] [place] [address] Oct, [facility] [place] [facility] [address] [id number] [place] [address] Oct, [facility] [place] [facility] [address] [id number] [place] [address] Oct, [facility] [place] [facility] [address] [id number] [place] [address] Oct, [facility] [place] [facility] [address] [id number] [place] [address] Oct, [facility] [place] [facility] [address] [id number] [place] [address] Oct, [facility] [place] [facility] [address] [id number] [place] [address] Oct, [facility] [place] [facility] [address] [id number] [place] [address] Oct, [facility] [place] [facility] [address] [id number] [place] [address] Oct, [facility] [place] [facility] [address] [id number] [place] [address] September, [facility] [place] [facility] [address] [id number] [place] [address] September, [facility] [address] [id number] [place] [address] September, [facility] [place] [facility] [address] [id number] [place] [address] September, [facility] [place] [facility] [address] [id number] [place] [address] September, [facility] [place] [facility] [address] [id number] [place] [address] September, [facility] [place] [facility] [address] [id number] [place] [address] September, [facility] [place] [facility] [address] [id number] [place] [address] September, [facility] [place] [facility] [address] [id number] [place] [address] September, [facility] [place] [facility] [address] [id number] [place] [address] September, [facility] [place] [facility] [address] [id number] [place] [address] September, [facility] [place] [facility] [address] [id number] [place] [address] September, [facility] [place] [facility] [address] [id number] [place] [address] September, [facility] [place] [facility] [address] [id number] [place] [address] September, [facility] [place] [facility] [address] [id number] [place] [address] September, [facility] [place] [facility] [address] [id number] [place] [address] September, [facility] [place] [facility] [address] [id number] [place] [address] September, [facility] [place] [facility] [address] [id number] [place] [address] September, [facility] [address] [id number] [place] [address] Aug, [facility] [place] [facility] [address] [id number] [place] [address] Aug, [facility] [place] [facility] [address] [id number] [place] [address] Aug, [facility] [place] [facility] [address] [id number] [place] [address] Aug, [facility] [place] [facility] [address] [id number] [place] [address] Aug, [facility] [place] [facility] [address] [id number] [place] [address] Aug, [facility] [place] [facility] [address] [id number] [place] [address] Jul, [facility] [place] [facility] [address] [id number] [place] [address] Jul, [facility] [place] [facility] [address] [id number] [place] [address] Jul, [facility] [place] [facility] [address] [id number] [place] [address] Jul, [facility] [place] [facility] [address] [id number] [place] [address] Jun, [facility] [place] [facility] [address] [id number] [place] [address] Jun, [facility] [place] [facility] [address] [id number] [place] [address] Jun, [facility] [place] [facility] [address] [id number] [place] [address] Jun, [facility] [place] [facility] [address] [id number] [place] [address] 14 Mar, 2013 [facility] [place] [facility] [address] [id number] [place] [address] 14 Mar, 2013 [facility] [place] [facility] [address] [id number] [place] [address] 13 Mar, 2013 [facility] [place] [facility] [address] [id number] [place] [address] Mar, [facility] [place] [facility] [address] [id number] [place] [address] Feb, [facility] [place] [facility] [address] [id number] [place] [address] Feb, [facility] [place] [facility] [address] [id number] [place] [address] Feb, [facility] [place] [facility] [address] [id number] [place] [address] Jan, [facility] [place] [facility] [address] [id number] [place] [address] Jan, [facility] [place] [facility] [address] [id number] [place] [address] 12 Jan, 2013 [facility] [place] [facility] [address] [id number] [place] [address] 05 Jan, 2013 [facility] [place] [facility] [address] [id number] [place] [address] Dec, [facility] [place] [facility] [address] [id number] [place] [address] 15 Dec, 2012 [facility] [place] [facility] [address] [id number] [place] [address] Dec, [facility] [place] [facility] [address] [id number] [place] [address] Dec, [facility] [place] [facility] [address] [id number] [place] [address] Nov, [facility] [place] [facility] [address] [id number] [place] [address] Nov, [facility] [place] [facility] [address] [id number] [place] [address] Nov, [facility] [place] [facility] [address] [id number] [place] [address] Nov, [facility] [place] [facility] [address] [id number] [place] [address] Nov, [facility] [place] [facility] [address] [id number] [place] [address] Nov, [facility] [place] [facility] [address] [id number] [place] [address] Oct, [facility] [place] [facility] [address] [id number] [place] [address] Oct, [facility] [place] [facility] [address] [id number] [place] [address] Oct, [facility] [place] [facility] [address] [id number] [place] [address] Oct, [facility] [place] [facility] [address] [id number] [place] [address] 17 Oct, 2012 [facility] [place] [facility] [address] [id number] [place] [address] 16 Oct, 2012 [facility] [place] [facility] [address] [id number] [place] [address] 14 Oct, 2012 [facility] [place] [facility] [address] [id number] [place] [address] 13 Oct, 2012 [facility] [place] [facility] [address] [id number] [place] [address] Oct, [facility] [place] [facility] [address] [id number] [place] [address] 07 Oct, 2012 [facility] [place] [facility] [address] [id number] [place] [address] September, [facility] [place] [facility] [address] [id number] [place] [address] September, [facility] [address] [id number] [place] [address] September, [facility] [address] [id number] [place] [address] Aug, [facility] [address] [id number] [place] [address] Aug, [facility] [address] [id number] [place] [address] Aug, [facility] [address] [id number] [place] [address] Aug, [facility] [address] [id number] [place] [address] Jul, [facility] [address] [id number] [place] [address] Jul, [facility] [address] [id number] [place] [address] Jul, [facility] [address] [id number] [place] [address] Jul, [facility] [address] [id number] [place] [address] Jul, [facility] [address] [id number] [place] [address] Jul, [facility] [address] [id number] [place] [address] May, [facility] [place] [facility] [address] [id number] [place] [address] May, [facility] [place] [facility] [address] [id number] [place] [address] May, [facility] [address] [id number] [place] [address] May, [facility] [address] [id number] [place] [address] May, [facility] [place] [facility] [address] [id number] [place] [address] May, [facility] [place] [facility] [address] [id number] [place] [address] May, [facility] [place] [facility] [address] [id number] [place] [address] 18 May, 2012 [facility] [address] [id number] [place] [address] May, [facility] [place] [facility] [address] [id number] [place] [address] 17 May, 2012 [facility] [address] [id number] [place] [address] May, [facility] [place] [facility] [address] [id number] [place] [address] Apr, [facility] [address] [id number] [place] [address] Apr, [facility] [place] [facility] [address] [id number] [place] [address] Apr, [facility] [place] [facility] [address] [id number] [place] [address] Apr, [facility] [place] [facility] [address] [id number] [place] [address] Apr, [facility] [place] [facility] [address] [id number] [place] [address] Apr, [facility] [place] [facility] [address] [id number] [place] [address] Mar, [facility] [place] [facility] [address] [id number] [place] [address] Mar, [facility] [place] [facility] [address] [id number] [place] [address] 08 Mar, 2012 [facility] [place] [facility] [address] [id number] [place] [address] Mar, [facility] [place] [facility] [address] [id number] [place] [address] Mar, [facility] [place] [facility] [address] [id number] [place] [address] Mar, [facility] [place] [facility] [address] [id number] [place] [address] Mar, [facility] [place] [facility] [address] [id number] [place] [address] Mar, [facility] [place] [facility] [address] [id number] [place] [address] Feb, [facility] [place] [facility] [address] [id number] [place] [address] Feb, [facility] [place] [facility] [address] [id number] [place] [address] 16 Feb, 2012 [facility] [place] [facility] [address] [facility] [id number] [place] [address] 15 Feb, 2012 [facility] [place] [facility] [address] [facility] [id number] [place] [address] 15 Feb, 2012 [facility] [place] [facility] [address] [facility] [id number] [place] [address] 13 Feb, 2012 [facility] [place] [facility] [address] [id number] [place] [address] Feb, [facility] [place] [facility] [address] [id number] [place] [address] Feb, [facility] [place] [facility] [address] [facility] [id number] [place] [address] Feb, [facility] [place] [facility] [address] [facility] [id number] [place] [address] Feb, [facility] [place] [facility] [address] [id number] [place] [address] Feb, [facility] [place] [facility] [address] [id number] [place] [address] Feb, [facility] [place] [facility] [address] [id number] [place] [address] Feb, [facility] [place] [facility] [address] [id number] [place] [address] Feb, [facility] [place] [facility] [address] [id number] [place] [address] Feb, [facility] [place] [facility] [address] [id number] [place] [address] Feb, [facility] [place] [facility] [address] [id number] [place] [address] Feb, [facility] [place] [facility] [address] [id number] [place] [address] Feb, [facility] [place] [facility] [address] [id number] [place] [address] 19 Jan, 2012 [facility] [place] [facility] [address] [id number] [place] [address] 13 Jan, 2012 [facility] [place] [facility] [address] [id number] [place] [address] 11 Jan, 2012 [facility] [place] [facility] [address] [id number] [place] [address] 10 Jan, 2012 [facility] [place] [facility] [address] [id number] [place] [address] 05 Jan, 2012 [facility] [place] [facility] [address] [id number] [place] [address] Dec, [facility] [place] [facility] [address] [id number] [place] [address] Dec, [facility] [place] [facility] [address] [id number] [place] [address] Dec, [facility] [place] [facility] [address] [id number] [place] [address] Dec, [facility] [place] [facility] [address] [id number] [place] [address] Dec, [facility] [place] [facility] [address] [id number] [place] [address] Dec, [facility] [place] [facility] [address] [id number] [place] [address] Nov, [facility] [place] [facility] [address] [id number] [place] [address] Nov, [facility] [place] [facility] [address] [id number] [place] [address] Nov, [facility] [place] [facility] [address] [id number] [place] [address] Nov, [facility] [place] [facility] [address] [id number] [place] [address] Nov, [facility] [place] [facility] [address] [id number] [place] [address] Oct, [facility] [place] [facility] [address] [id number] [place] [address] Oct, [facility] [place] [facility] [address] [id number] [place] [address] Oct, [facility] [place] [facility] [address] [id number] [place] [address] September, [facility] [place] [facility] [address] [id number] [place] [address] September, [facility] [place] [facility] [address] [id number] [place] [address] September, [facility] [place] [facility] [address] [id number] [place] [address] September, [facility] [place] [facility] [address] [id number] [place] [address] September, [facility] [address] [id number] [place] [address] September, [facility] [place] [facility] [address] [id number] [place] [address] Aug, [facility] [place] [facility] [address] [id number] [place] [address] Aug, [facility] [place] [facility] [address] [id number] [place] [address] Aug, [facility] [place] [facility] [address] [id number] [place] [address] Jun, [facility] [place] [facility] [address] [id number] [place] [address] Jun, [facility] [place] [facility] [address] [id number] [place] [address] Jun, [facility] [place] [facility] [address] [id number] [place] [address] Jun, [facility] [place] [facility] [address] [id number] [place] [address] May, [facility] [place] [facility] [address] [id number] [place] [address] May, [facility] [place] [facility] [address] [id number] [place] [address] May, [facility] [place] [facility] [address] [id number] [place] [address] May, [facility] [place] [facility] [address] [id number] [place] [address] May, [facility] [place] [facility] [address] [id number] [place] [address] Apr, [facility] [place] [facility] [address] [id number] [place] [address] 20 Apr, 2011 [facility] [place] [facility] [address] [id number] [place] [address] Apr, [facility] [place] [facility] [address] [id number] [place] [address] Apr, [facility] [place] [facility] [address] [id number] [place] [address] Apr, [facility] [place] [facility] [address] [id number] [place] [address] 16 Apr, 2011 [facility] [place] [facility] [address] [id number] [place] [address] Apr, [facility] [place] [facility] [address] [id number] [place] [address] Mar, [facility] [place] [facility] [address] [id number] [place] [address] Mar, [facility] [place] [facility] [address] [id number] [place] [address] 15 Mar, 2011 [facility] [place] [facility] [address] [id number] [place] [address] Feb, [facility] [place] [facility] [address] [id number] [place] [address] 24 Feb, 2011 [facility] [place] [facility] [address] [id number] [place] [address] Feb, [facility] [place] [facility] [address] [id number] [place] [address] Feb, [facility] [place] [facility] [address] [id number] [place] [address] 18 Feb, 2011 [facility] [place] [facility] [address] [id number] [place] [address] 17 Feb, 2011 [facility] [place] [facility] [address] [id number] [place] [address] 13 Jan, 2011 [facility] [place] [facility] [address] [id number] [place] [address] 12 Jan, 2011 [facility] [address] [id number] [place] [address] September, [facility] [address] [id number] [place] [address] 17 Jun, 2010 [facility] [address] [id number] [place] [address] Apr, [facility] [address] [id number] [place] [address] Apr, [facility] [address] [id number] [place] [address], [place] [address] Apr, [facility] [address] [id number] [place] [address] Apr, [facility] [address] [id number] [place] [address] Apr, [facility] [address] [id number] [place] [address] 30 Mar, 2010 [facility] [address] [id number] [place] [address] 24 Mar, 2010 [facility] [address] [facility] [id number] [place] [address] Mar, [facility] [address] [id number] [place] [address] 05 Mar, 2010 [facility] [address] [id number] [place] [address] 27 Feb, 2010 [facility] [address] [id number] [place] [address] 15 Jan, 2010 [facility] [address] [id number] [place] [address] 07 Mar, 2009 [facility] [address] [id number] [place] [address] 15 Jan, 2009 [facility] [address] [facility] [id number] [place] [address] Oct, [facility] [address] [facility] [id number] [place] [address] Apr, IMMUNIZATIONS No Known Immunizations SOCIAL HISTORY Never Assessed REASON FOR VISIT [place]MR[place] [place] CARE VITAL SIGNS MEDICATIONS Unknown [...]
--- OUTSIDE RECORDS SUMMARY | 2018-09-28 04:00 | XMS REPORT ---
Author Author Migration, Doctor Organization [facility] Address Unknown Phone Unavailable Care Team Providers Care Superintendent Recreation Name Role Phone Migration, Doctor Unavailable Unavailable PROBLEMS Type Condition ICD9-CM Code OOF06-BD Code Onset Dates Condition Status SNOMED Code Problem Essential hypertension I10 Active 08643798 Problem Bilateral low back pain without sciatica M54.5 Active 315790774 Problem Anxiety F41.9 Active 87700639 Problem Dysuria R30.0 Active 07498839 Problem Irritable bowel syndrome without diarrhea K58.9 Active 90555084 Problem Rhinosinusitis J32.9 Active 920789676 Problem Hypertriglyceridemia E78.1 Active 336961370 Problem Pre-diabetes R73.03 Active 676814668 Problem Alternating constipation and diarrhea R19.8 Active 889025981 Problem Body mass index (BMI) of 40.0-44.9 in adult Z68.41 Active 425746603 Problem Morbid (severe) obesity due to excess calories E66.01 Active 106452891 ALLERGIES No Information ENCOUNTERS Encounter Location Date Diagnosis [place] [id number] [place] [address] 16 Aug, 2018 Acute vaginitis N76.0 [place] [id number] [place] [address] Aug, Rhinosinusitis J32.9 ; Bronchitis J40 ; Folliculitis L73.9 and Morbid obesity E66.01 [facility] [id number] [place] [address] Jul, [place] [address] [address] Jul, [facility] [id number] [place] [address] Jun, [facility] [address] [address] Jun, Acute vaginitis N76.0 ; Dermatitis L30.9 ; BMI 40.0-44.9, adult Z68.41 and Morbid obesity E66.01 [facility]ALK IN [facility] [id number] [place] [address] Jun, Vaginal discharge N89.8 ; Urinary tract infection without hematuria, site unspecified N39.0 and BMI 40.0-44.9, adult Z68.41 [place] [id number] [place] [address] May, [place] [address] [address] May, [place] [address] [address] Apr, Urinary tract infection, site not specified N39.0 [place] [id number] [place] [address] Apr, Dysuria R30.0 ; Urinary tract infection, site not specified N39.0 and Hematuria, unspecified R31.9 [place] [id number] [place] [address] Mar, [place] [id number] [place] [address] Mar, Left anterior knee pain M25.562 ; Abscess of buttock, left L02.31 and BMI 40.0-44.9, adult Z68.41 [place] [id number] [place] [address] 12 Mar, 2018 [facility] WALK IN [facility] [address] [address] 13 Feb, 2018 Abrasion of right ear canal, initial encounter S00.411A ; Left wrist pain M25.532 ; Right acute serous otitis media, recurrence not specified H65.01 and BMI 40.0-44.9, adult Z68.41 [place] [id number] [place] [address] Jan, [place] [address] [address] Jan, [facility] [id number] [place] [address] Jan, BMI 40.0-44.9, adult Z68.41 ; Pre-diabetes R73.03 ; Essential hypertension I10 ; Morbid (severe) obesity due to excess calories E66.01 ; Bilateral low back pain without sciatica M54.5 and Heartburn R12 [place] [address] [address] Jan, History of UTI Z87.440 ; Well woman exam with routine gynecological exam Z01.419 ; Screening for breast cancer Z12.31 ; Candidal vaginitis B37.3 and BMI 40.0-44.9, adult Z68.41 [place] [id number] [place] [address] Jan, [facility] [id number] [place] [address] Jan, Dysuria R30.0 ; Acute cystitis with hematuria N30.01 ; Yeast infection B37.9 and BMI 40.0-44.9, adult Z68.41 [place] [id number] [place] [address] Dec, [place] [id number] [place] [address] Dec, [place] [id number] [place] [address] Nov, History of UTI Z87.440 [place] [id number] [place] [address] Nov, UTI symptoms R39.9 ; Acute nasopharyngitis J00 and BMI 40.0-44.9, adult Z68.41 [facility] [address] [address] Nov, [facility] [id number] [place] [address] Nov, Yeast infection involving the vagina and surrounding area B37.3 [facility] [id number] [address] Nov, Yeast infection involving the vagina and surrounding area B37.3 [facility] [id number] [place] [address] Nov, Yeast infection involving the vagina and surrounding area B37.3 ; Body mass index (BMI) of 40.0-44.9 in adult Z68.41 and Morbid (severe) obesity due to excess calories E66.01 [place] [id number] [place] [address] Oct, Abscess of groin, left L02.214 and Pre-diabetes R73.03 [facility] [address] [address] September, Pre-diabetes R73.03 [facility] [id number] [place] [address] Aug, [facility] [address] [address] Jul, Bilateral low back pain without sciatica M54.5 [facility] [address] [address] Jun, [facility] [id number] [place] [address] Jun, [facility] [id number] [address] Jun, [facility] [address] [address] May, [place] [id number] [place] [address] May, Ingrown left greater toenail L60.0 [place] [address] [address] May, [facility] WALK IN [facility] [address] [address] May, Influenza A J10.1 ; Fever R50.9 and Body aches R52 [facility] [address] [address] Apr, [place] [address] [address] Apr, [place] [address] [address] Apr, [place] [address] [address] Apr, Abscess L02.91 and Obesity (BMI 30-39.9) E66.9 [place] [address] [address] Apr, [place] [address] [address] Apr, [place] [address] [address] Mar, Acute non-recurrent maxillary sinusitis J01.00 [place] [id number] [place] [address] Feb, Heartburn R12 [place] [address] [address] Feb, Heartburn R12 ; Low back pain M54.5 ; Essential hypertension I10 ; Bilateral low back pain without sciatica M54.5 ; Anxiety F41.9 ; Pre-diabetes R73.03 ; Other obesity due to excess calories E66.09 ; Alternating constipation and diarrhea R19.8 ; Dyspepsia R10.13 ; Generalized abdominal pain R10.84 ; Rhinosinusitis J32.9 and Boil L02.92 [place] [id number] [place] [address] Jan, Heartburn R12 [place] [address] [address] Jan, [place] [address] [address] Jan, [place] [id number] [place] [address] Jan, Acute seasonal allergic rhinitis due to pollen J30.1 and Irritable bowel syndrome without diarrhea K58.9 [place] [address] [address] Dec, Low back pain M54.5 and Acute cystitis with hematuria N30.01 [place] [id number] [place] [address] Dec, Low back pain M54.5 and Acute cystitis with hematuria N30.01 [place] [id number] [place] [address] Dec, Heartburn R12 ; Essential hypertension I10 ; Acute non-recurrent maxillary sinusitis J01.00 ; Bilateral low back pain without sciatica M54.5 ; Anxiety F41.9 ; Pre-diabetes R73.03 ; Pain in right foot M79.671 ; Pain in left foot M79.672 ; Other obesity due to excess calories E66.09 and Acute cystitis with hematuria N30.01 [place] [id number] [place] [address] Dec, Bilateral low back pain without sciatica M54.5 ; Acute non-recurrent maxillary sinusitis J01.00 and Pre-diabetes R73.03 [place] [id number] [place] [address] Oct, [facility] IN [place] [id number] [place] [address] Aug, [facility] WALK IN [place] [address] [address] Aug, Acute vaginitis N76.0 ; Urinary frequency R35.0 ; Screen for STD (sexually transmitted disease) Z11.3 and Abscess L02.91 [place] [address] [address] Aug, Plantar wart of right foot B07.0 [place] [address] [address] Jul, Plantar wart of right foot B07.0 [place] [address] [address] Jun, [place] [address] [address] Jun, Heartburn R12 ; Essential hypertension I10 ; Anxiety F41.9 ; Folliculitis L73.9 and Plantar wart of right foot B07.0 [place] [id number] [place] [address] Jun, [facility] WALK IN [place] [id number] [place] [address] May, Low back pain M54.5 and Other chronic pain G89.29 [place] [id number] [place] [address] May, [place] [address] [address] May, [place] [id number] [place] [address] May, Heartburn R12 ; Bilateral low back pain without sciatica M54.5 ; Essential hypertension I10 ; Long-term use of high-risk medication Z79.899 ; Anxiety F41.9 ; Impacted cerumen of right ear H61.21 ; Folliculitis L73.9 ; High risk bisexual behavior Z72.53 and General medical exam Z00.00 [facility] [id number] [place] [address] May, [facility] [address] [address] May, [facility] [address] [address] Mar, Acute nasopharyngitis J00 ; Acute intractable tension-type headache G44.201 and Cough R05 [place] [address] [address] Jan, [facility] WALK IN [facility] [address] [address] Jan, Abscess L02.91 [facility] WALK IN [facility] [address] [address] Jan, Urinary urgency R39.15 and Urinary tract infection without hematuria, site unspecified N39.0 [place] [address] [address] Jan, [facility] [id number] [place] [address] Jan, [place] [address] [address] Dec, [place] [id number] [place] [address] Dec, Dermatofibroma D23.9 [place] [address] [address] September, [facility] [address] [address] Aug, [facility] [address] [place] [address] Aug, Pain in left knee M25.562 ; Heartburn R12 ; Bilateral low back pain without sciatica M54.5 ; Essential hypertension I10 ; Ingrown left big toenail L60.0 ; Chronic pain G89.29 ; Irritable bowel syndrome with constipation K58.9 and Skin infection L08.9 [facility] [address] [address] Aug, [facility] [address] [address] Jul, [facility] [address] [address] Jun, [facility] [id number] [place] [address] Jun, [facility] [address] [address] Jun, [facility] [id number] [place] [address] Jun, [facility] [id number] [place] [address] Jun, Upper respiratory infection J06.9 ; Bilateral low back pain without sciatica M54.5 and Headache R51 [facility] [id number] [place] [address] May, [facility] [id number] [place] [address] Apr, Bilateral low back pain without sciatica M54.5 ; Upper respiratory infection J06.9 and Yeast dermatitis B37.2 [facility] [id number] [place] [address] Apr, [facility] [id number] [place] [address] Apr, [facility] [id number] [place] [address] Feb, [facility] [id number] [place] [address] Feb, [facility] [id number] [place] [address] Feb, [place] [address] [address] Feb, Essential hypertension I10 ; Heartburn R12 ; Irritable bowel syndrome without diarrhea K58.9 ; Bilateral low back pain, with sciatica presence unspecified M54.5 and Upper respiratory infection J06.9 [place] [id number] [place] [address] Feb, [place] [id number] [place] [address] Feb, Generalized anxiety disorder F41.1 and Grief F43.20 [place] [id number] [place] [address] Jan, [place] [id number] [place] [address] Jan, Back pain 724.5 ; Upper respiratory infection 465.9 ; HTN (hypertension) 401.9 and Dyspepsia 536.8 [place] [id number] [place] [address] Dec, [facility] [id number] [place] [address] Nov, Back pain 724.5 ; Abdominal pain, bilateral lower quadrant 789.03 ; GERD (gastroesophageal reflux disease) 530.81 ; Upper respiratory infection 465.9 ; Dysuria 788.1 and HTN (hypertension) 401.9 [place] [id number] [place] [address] Nov, [place] [id number] [place] [address] Nov, [facility] [address] [address] Nov, [facility] [id number] [place] [address] Nov, Cough 786.2 [facility] [id number] [place] [address] Nov, Cough 786.2 [facility] [id number] [place] [address] Oct, Unspecified episodic mood disorder 296.90 and Anxiety disorder, unspecified 300.00 [facility] [id number] [place] [address] Oct, Abdominal pain, left upper quadrant 789.02 ; Essential hypertension, benign 401.1 ; Irritable bowel syndrome 564.1 ; Abscess 682.9 ; Heartburn 787.1 ; Acute sinusitis, unspecified 461.9 ; Muscle spasm of back 724.8 ; Cough 786.2 and Skin tag 701.9 [facility] [address] [place] [address] September, [facility] [address] [id number] [place] [address] September, [facility] [address] [address] September, [facility] [address] [address] Aug, [facility] [id number] [place] [address] Aug, [facility] [address] [id number] [place] [address] Jul, [facility] [address] [address] Jul, [facility] [place] [facility] [address] [id number] [place] [address] Jul, [facility] [place] [facility] [address] [id number] [place] [address] Jul, [facility] [place] [facility] [address] [id number] [place] [address] Jul, [facility] [place] [facility] [address] [id number] [place] [address] Jul, [facility] [place] [facility] [address] [id number] [place] [address] Jul, [facility] [place] [facility] [address] [id number] [place] [address] Jul, [facility] [place] [facility] [address] [id number] [place] [address] Jul, [facility] [place] [facility] [address] [id number] [place] [address] Jul, [facility] [place] [facility] [address] [id number] [place] [address] Jul, [facility] [place] [facility] [address] [id number] [place] [address] Jul, [facility] [place] [facility] [address] [id number] [place] [address] Jul, [facility] [place] [facility] [address] [id number] [place] [address] Jul, [facility] [place] [facility] [address] [id number] [place] [address] Jul, [facility] [place] [facility] [address] [id number] [place] [address] Jul, [facility] [place] [facility] [address] [id number] [place] [address] Jul, [facility] [place] [facility] [address] [id number] [place] [address] Jun, 2014 [facility] [place] [facility] [address] [id number] [place] [address] Jun, 2014 [facility] [place] [facility] [address] [id number] [place] [address] Jun, 2014 [facility] [place] [facility] [address] [facility] [id number] [place] [address] Jun, 2014 [facility] [place] [facility] [address] [id number] [place] [address] Jun, 2014 [facility] [place] [facility] [address] [id number] [place] [address] Jun, 2014 [facility] [place] [facility] [address] [facility] [id number] [place] [address] Jun, 2014 [facility] [place] [facility] [address] [facility] [id number] [place] [address] Jun, 2014 [facility] [place] [facility] [address] [facility] [id number] [place] [address] 29 Apr, 2014 [facility] [place] [facility] [address] [facility] [id number] [place] [address] 29 Apr, 2014 [facility] [place] [facility] [address] [facility] [id number] [place] [address] Apr, [facility] [place] [facility] [address] [facility] [id number] [place] [address] 23 Apr, 2014 [facility] [place] [facility] [address] [facility] [id number] [place] [address] 18 Apr, 2014 [facility] [place] [facility] [address] [facility] [id number] [place] [address] 18 Apr, 2014 [facility] [place] [facility] [address] [facility] [id number] [place] [address] 15 Apr, 2014 [facility] [place] [facility] [address] [facility] [id number] [place] [address] 15 Apr, 2014 [facility] [place] [facility] [address] [id number] [place] [address] Apr, [facility] [place] [facility] [address] [id number] [place] [address] Apr, [facility] [place] [facility] [address] [id number] [place] [address] Apr, [facility] [place] [facility] [address] [id number] [place] [address] Apr, [facility] [place] [facility] [address] [id number] [place] [address] Apr, [facility] [place] [facility] [address] [id number] [place] [address] Apr, [facility] [place] [facility] [address] [id number] [place] [address] Apr, [facility] [place] [facility] [address] [id number] [place] [address] Feb, [facility] [place] [facility] [address] [id number] [place] [address] Feb, [facility] [place] [facility] [address] [id number] [place] [address] Feb, [facility] [place] [facility] [address] [id number] [place] [address] Feb, [facility] [place] [facility] [address] [id number] [place] [address] Feb, [facility] [place] [facility] [address] [id number] [place] [address] Feb, [facility] [place] [facility] [address] [id number] [place] [address] Jan, [facility] [place] [facility] [address] [id number] [place] [address] 08 Jan, 2014 [facility] [place] [facility] [address] [id number] [place] [address] Jan, [facility] [place] [facility] [address] [id number] [place] [address] Jan, 2013 [facility] [place] [facility] [address] [id number] [place] [address] Jan, [facility] [place] [facility] [address] [id number] [place] [address] Jan, [facility] [place] [facility] [address] [id number] [place] [address] Dec, [facility] [place] [facility] [address] [id number] [place] [address] Dec, [facility] [place] [facility] [address] [id number] [place] [address] Dec, [facility] [place] [facility] [address] [id number] [place] [address] Dec, [facility] [place] [facility] [address] [id number] [place] [address] Nov, [facility] [place] [facility] [address] [id number] [place] [address] Nov, [facility] [place] [facility] [address] [id number] [place] [address] Nov, [facility] [place] [facility] [address] [id number] [place] [address] Nov, [facility] [place] [facility] [address] [id number] [place] [address] Nov, [facility] [place] [facility] [address] [id number] [place] [address] Nov, [facility] [place] [facility] [address] [id number] [place] [address] Nov, [facility] [place] [facility] [address] [id number] [place] [address] Nov, [facility] [place] [facility] [address] [id number] [place] [address] 30 Oct, 2013 [facility] [place] [facility] [address] [id number] [place] [address] Oct, [facility] [place] [facility] [address] [id number] [place] [address] Oct, [facility] [place] [facility] [address] [id number] [place] [address] Oct, [facility] [place] [facility] [address] [id number] [place] [address] Oct, [facility] [place] [facility] [address] [id number] [place] [address] Oct, [facility] [place] [facility] [address] [id number] [place] [address] Oct, [facility] [place] [facility] [address] [id number] [place] [address] Oct, [facility] [place] [facility] [address] [id number] [place] [address] Oct, [facility] [place] [facility] [address] [id number] [place] [address] Oct, [facility] [place] [facility] [address] [id number] [place] [address] Oct, [facility] [place] [facility] [address] [id number] [place] [address] Oct, [facility] [place] [facility] [address] [id number] [place] [address] Oct, [facility] [place] [facility] [address] [id number] [place] [address] Oct, [facility] [place] [facility] [address] [id number] [place] [address] Oct, [facility] [facility] [address] [id number] [place] [address] Oct, [facility] [place] [facility] [address] [id number] [place] [address] Oct, [facility] [place] [facility] [address] [id number] [place] [address] Oct, [facility] [place] [facility] [address] [id number] [place] [address] Oct, [facility] [place] [facility] [address] [id number] [place] [address] Oct, [facility] [place] [facility] [address] [id number] [place] [address] Oct, [facility] [place] [facility] [address] [id number] [place] [address] Oct, [facility] [place] [facility] [address] [id number] [place] [address] Oct, [facility] [place] [facility] [address] [id number] [place] [address] Oct, [facility] [place] [facility] [address] [id number] [place] [address] Oct, [facility] [place] [facility] [address] [id number] [place] [address] Oct, [facility] [place] [facility] [address] [id number] [place] [address] Oct, [facility] [place] [facility] [address] [id number] [place] [address] Oct, [facility] [place] [facility] [address] [id number] [place] [address] Oct, [facility] [place] [facility] [address] [id number] [place] [address] Oct, [facility] [place] [facility] [address] [id number] [place] [address] September, [facility] [place] [facility] [address] [id number] [place] [address] September, [facility] [address] [id number] [place] [address] September, [facility] [address] [id number] [place] [address] September, [facility] [address] [id number] [place] [address] September, [facility] [address] [id number] [place] [address] September, [facility] [address] [id number] [place] [address] September, [facility] [address] [id number] [place] [address] September, [facility] [address] [id number] [place] [address] September, [facility] [address] [id number] [place] [address] September, [facility] [address] [id number] [place] [address] September, [facility] [address] [id number] [place] [address] September, [facility] [address] [id number] [place] [address] September, [facility] [facility] [address] [id number] [place] [address] September, [facility] [address] [id number] [place] [address] September, [facility] [address] [id number] [place] [address] September, [facility] [address] [id number] [place] [address] September, [facility] [address] [id number] [place] [address] September, [facility] [address] [id number] [place] [address] Aug, [facility] [facility] [address] [id number] [place] [address] Aug, [facility] [place] [facility] [address] [id number] [place] [address] Aug, [facility] [place] [facility] [address] [id number] [place] [address] Aug, [facility] [place] [facility] [address] [id number] [place] [address] Aug, [facility] [address] [id number] [place] [address] Aug, [facility] [facility] [address] [id number] [place] [address] Jul, [facility] [facility] [address] [id number] [place] [address] Jul, [facility] [address] [id number] [place] [address] Jul, [facility] [address] [id number] [place] [address] Jul, [facility] [address] [id number] [place] [address] Jun, [facility] [address] [id number] [place] [address] Jun, [facility] [address] [id number] [place] [address] Jun, [facility] [address] [id number] [place] [address] Jun, [facility] [facility] [address] [id number] [place] [address] 14 Mar, 2013 [facility] [address] [id number] [place] [address] 14 Mar, 2013 [facility] [address] [id number] [place] [address] 13 Mar, 2013 [facility] [address] [id number] [place] [address] Mar, [facility] [address] [id number] [place] [address] Feb, [facility] [address] [id number] [place] [address] Feb, [facility] [address] [id number] [place] [address] Feb, [facility] [place] [facility] [address] [id number] [place] [address] Jan, [facility] [address] [id number] [place] [address] Jan, [facility] [address] [id number] [place] [address] 12 Jan, 2013 [facility] [address] [id number] [place] [address] 05 Jan, 2013 [facility] [address] [id number] [address] Dec, [facility] [address] [id number] [address] 15 Dec, 2012 [facility] [address] [id number] [place] [address] Dec, [facility] [address] [id number] [address] Dec, [facility] [address] [id number] [place] [address] Nov, [facility] [address] [id number] [place] [address] Nov, [facility] [address] [id number] [place] [address] Nov, [facility] [address] [id number] [place] [address] Nov, [facility] [address] [id number] [place] [address] Nov, [facility] [address] [id number] [place] [address] Nov, [facility] [address] [id number] [place] [address] Oct, [facility] [address] [id number] [place] [address] Oct, [facility] [address] [id number] [place] [address] Oct, [facility] [address] [id number] [place] [address] Oct, [facility] [facility] [address] [id number] [place] [address] 17 Oct, 2012 [facility] [address] [id number] [place] [address] 16 Oct, 2012 [facility] [address] [id number] [place] [address] 14 Oct, 2012 [facility] [place] [facility] [address] [id number] [place] [address] 13 Oct, 2012 [facility] [address] [id number] [place] [address] Oct, [facility] [address] [id number] [place] [address] 07 Oct, 2012 [facility] [address] [id number] [place] [address] September, [facility] [address] [id number] [place] [address] September, [facility] [address] [id number] [place] [address] September, [facility] [address] [id number] [place] [address] Aug, [facility] [address] [id number] [place] [address] Aug, [facility] [address] [id number] [place] [address] Aug, [facility] [address] [id number] [place] [address] Aug, [facility] [address] [id number] [place] [address] Jul, [facility] [address] [id number] [place] [address] Jul, [facility] [address] [id number] [place] [address] Jul, [facility] [address] [id number] [place] [address] Jul, [facility] [address] [id number] [place] [address] Jul, [facility] [address] [id number] [place] [address] Jul, [facility] [address] [id number] [place] [address] May, [facility] [address] [id number] [place] [address] May, [facility] [address] [id number] [place] [address] May, [facility] [address] [id number] [place] [address] May, [facility] [address] [id number] [place] [address] May, [facility] [address] [id number] [place] [address] May, [facility] [address] [id number] [place] [address] May, [facility] [address] [id number] [place] [address] 18 May, 2012 [facility] [address] [id number] [place] [address] May, [facility] [facility] [address] [id number] [place] [address] 17 May, 2012 [facility] [address] [id number] [place] [address] May, [facility] [address] [id number] [place] [address] Apr, [facility] [address] [id number] [place] [address] Apr, [facility] [address] [id number] [place] [address] Apr, [facility] [place] [address] [id number] [place] [address] Apr, [facility] [address] [id number] [place] [address] Apr, [facility] [place] [address] [id number] [place] [address] Apr, [facility] [place] [facility] [address] [id number] [place] [address] Mar, [facility] [place] [facility] [address] [id number] [place] [address] Mar, [facility] [place] [facility] [address] [id number] [place] [address] 08 Mar, 2012 [facility] [place] [facility] [address] [id number] [place] [address] Mar, [facility] [place] [facility] [address] [id number] [place] [address] Mar, [facility] [place] [facility] [address] [id number] [place] [address] Mar, [facility] [place] [facility] [address] [id number] [place] [address] Mar, [facility] [place] [facility] [address] [id number] [place] [address] Mar, [facility] [place] [facility] [address] [id number] [place] [address] Feb, [facility] [place] [facility] [address] [id number] [place] [address] Feb, [facility] [place] [facility] [address] [id number] [place] [address] 16 Feb, 2012 [facility] [address] [facility] [id number] [place] [address] 15 Feb, 2012 [facility] [place] [facility] [address] [facility] [id number] [place] [address] 15 Feb, 2012 [facility] [address] [facility] [id number] [place] [address] 13 Feb, 2012 [facility] [place] [facility] [address] [id number] [address] Feb, [facility] [place] [facility] [address] [id number] [place] [address] Feb, [facility] [place] [facility] [address] [facility] [id number] [place] [address] Feb, [facility] [place] [facility] [address] [facility] [id number] [place] [address] Feb, [facility] [place] [facility] [address] [id number] [place] [address] Feb, [facility] [place] [facility] [address] [id number] [place] [address] Feb, [facility] [place] [facility] [address] [id number] [place] [address] Feb, [facility] [place] [facility] [address] [id number] [place] [address] Feb, [facility] [place] [facility] [address] [id number] [place] [address] Feb, [facility] [place] [facility] [address] [id number] [place] [address] Feb, [facility] [place] [facility] [address] [id number] [place] [address] Feb, [facility] [place] [facility] [address] [id number] [place] [address] Feb, [facility] [place] [facility] [address] [id number] [place] [address] 19 Jan, 2012 [facility] [place] [facility] [address] [id number] [address] 13 Jan, 2012 [facility] [place] [facility] [address] [id number], [place] [address] 11 Jan, 2012 [facility] [place] [facility] [address] [id number] [address] 10 Jan, 2012 [facility] [place] [facility] [address] [id number] [place] [address] 05 Jan, 2012 [facility] [place] [facility] [address] [id number] [place] [address] Dec, [facility] [place] [facility] [address] [id number] [address] Dec, [facility] [place] [facility] [address] [id number][place] [address] Dec, [facility] [place] [facility] [address] [id number] [place] [address] Dec, [facility] [place] [facility] [address] [id number] [place] [address] Dec, [facility] [place] [facility] [address] [id number] [place] [address] Dec, [facility] [place] [facility] [address] [id number] [place] [address] Nov, [facility] [place] [facility] [address] [id number] [place] [address] Nov, [facility] [place] [facility] [address] [id number] [place] [address] Nov, [facility] [place] [facility] [address] [id number] [place] [address] Nov, [facility] [place] [facility] [address] [id number] [place] [address] Nov, [facility] [place] [facility] [address] [id number] [place] [address] Oct, [facility] [place] [facility] [address] [id number] [place] [address] Oct, [facility] [place] [facility] [address] [id number] [place] [address] Oct, [facility] [place] [facility] [address] [id number] [place] [address] September, [facility] [place] [facility] [address] [id number] [place] [address] September, [facility] [place] [facility] [address] [id number] [place] [address] September, [facility] [place] [facility] [address] [id number] [place] [address] September, [facility] [place] [facility] [address] [id number] [place] [address] September, [facility] [address] [id number] [place] [address] September, [facility] [place] [facility] [address] [id number] [place] [address] Aug, [facility] [place] [facility] [address] [id number] [place] [address] Aug, [facility] [place] [facility] [address] [id number] [place] [address] Aug, [facility] [place] [facility] [address] [id number] [place] [address] Jun, [facility] [place] [facility] [address] [id number] [place] [address] Jun, [facility] [place] [facility] [address] [id number] [place] [address] Jun, [facility] [place] [facility] [address] [id number] [place] [address] Jun, [facility] [place] [facility] [address] [id number] [place] [address] May, [facility] [place] [facility] [address] [id number] [place] [address] May, [facility] [place] [facility] [address] [id number] [place] [address] May, [facility] [place] [facility] [address] [id number] [place] [address] May, [facility] [place] [facility] [address] [id number] [place] [address] May, [facility] [place] [facility] [address] [id number] [place] [address] Apr, [facility] [place] [facility] [address] [id number] [address] 20 Apr, 2011 [facility] [place] [facility] [address] [id number] [place] [address] Apr, [facility] [place] [facility] [address] [id number] [place] [address] Apr, [facility] [place] [facility] [address] [id number] [place] [address] Apr, [facility] [place] [facility] [address] [id number] [address] 16 Apr, 2011 [facility] [place] [facility] [address] [id number] [place] [address] Apr, [facility] [place] [facility] [address] [id number] [place] [address] Mar, [facility] [place] [facility] [address] [id number] [place] [address] Mar, [facility] [place] [facility] [address] [id number] [address] 15 Mar, 2011 [facility] [place] [facility] [address] [id number] [address] Feb, [facility] [place] [facility] [address] [id number] [address] 24 Feb, 2011 [facility] [place] [facility] [address] [id number][place] [address] Feb, [facility] [place] [facility] [address] [id number][place] [address] Feb, [facility] [place] [facility] [address] [id number][place] [address] 18 Feb, 2011 [facility] [place] [facility] [address] [id number][place] [address] 17 Feb, 2011 [facility] [place] [facility] [address] [id number][place] [address] 13 Jan, 2011 [facility] [place] [facility] [address] [id number] [place] [address] 12 Jan, 2011 [facility] [address] [id number] [place] [address] September, [facility] [address] [id number] [place] [address] 17 Jun, 2010 [facility] [address] [id number] [place] [address] Apr, [facility] [address] [id number] [place] [address] Apr, [facility] [address] [id number] [place] [address], [place] [address] Apr, [facility] [address] [id number] [place] [address] Apr, [facility] [address] [id number] [place] [address] Apr, [facility] [address] [id number] [place] [address] 30 Mar, 2010 [facility] [address] [id number] [place] [address] 24 Mar, 2010 [facility] [address] [facility] [id number] [place] [address] Mar, [facility] [address] [id number] [place] [address] 05 Mar, 2010 [facility] [address] [id number] [place] [address] 27 Feb, 2010 [facility] [address] [id number] [place] [address] 15 Jan, 2010 [facility] [address] [id number] [place] [address] 07 Mar, 2009 [facility] [address] [id number] [place] [address] 15 Jan, 2009 [facility] [address] [facility] [id number] [place] [address] Oct, [facility] [address] [facility] [id number] [place] [address] Apr, IMMUNIZATIONS No Known Immunizations SOCIAL HISTORY Never Assessed REASON FOR VISIT EMR-[facility] [place] PLAN OF CARE [...]
--- OUTSIDE RECORDS SUMMARY | 2018-09-28 04:01 | XMS REPORT ---
Author Author Migration, Doctor Organization [facility] Address Unknown Phone Unavailable Care Team Providers Care Sales And Catering Coordinator Name Role Phone Migration, Doctor Unavailable Unavailable PROBLEMS Type Condition ICD9-CM Code [id number] Code Onset Dates Condition Status SNOMED Code Problem Essential hypertension I10 Active 54932374 Problem Bilateral low back pain without sciatica M54.5 Active 416388757 Problem Anxiety F41.9 Active 96560498 Problem Dysuria R30.0 Active 09135207 Problem Irritable bowel syndrome without diarrhea K58.9 Active 98568612 Problem Rhinosinusitis J32.9 Active 230688795 Problem Hypertriglyceridemia E78.1 Active 389771399 Problem Pre-diabetes R73.03 Active 156325013 Problem Alternating constipation and diarrhea R19.8 Active 308733043 Problem Body mass index (BMI) of 40.0-44.9 in adult Z68.41 Active 888950450 Problem Morbid (severe) obesity due to excess calories E66.01 Active 728521146 ALLERGIES No Information ENCOUNTERS Encounter Location Date Diagnosis [place] [address] [address] Aug, [facility] [address] [place] [id number] [place] [address] Aug, Rhinosinusitis J32.9 ; Bronchitis J40 and Folliculitis L73.9 [facility] [address] [place] [id number] [place] [address] Jul, [facility] [address] [address] Jul, [facility] [address] [address] Jun, [facility] [address] [place] [id number] [place] [address] 20 Feb, 2019 Acute vaginitis N76.0 ; Dermatitis L30.9 ; BMI 40.0-44.9, adult Z68.41 and Morbid obesity E66.01 [facility] [place] [address] [address] 01 Jun, 2018 Vaginal discharge N89.8 ; Urinary tract infection without hematuria, site unspecified N39.0 and BMI 40.0-44.9, adult Z68.41 [place] [address] [address] May, [place] [address] [address] May, [place] [address] [address] Apr, Urinary tract infection, site not specified N39.0 [place] [address] [address] Apr, Dysuria R30.0 ; Urinary tract infection, site not specified N39.0 and Hematuria, unspecified R31.9 [place] [address] [address] Mar, [place] [address] [address] Mar, Left anterior knee pain M25.562 ; Abscess of buttock, left L02.31 and BMI 40.0-44.9, adult Z68.41 [place] [address] [place] [id number] [place] [address] 12 Mar, 2018 [facility] [address] [address] 13 Feb, 2018 Abrasion of right ear canal, initial encounter S00.411A ; Left wrist pain M25.532 ; Right acute serous otitis media, recurrence not specified H65.01 and BMI 40.0-44.9, adult Z68.41 [place] [address] [address] Jan, [place] [address] [place] [address] Jan, [place] [address] [place] [id number] [place] [address] Jan, BMI 40.0-44.9, adult Z68.41 ; Pre-diabetes R73.03 ; Essential hypertension I10 ; Morbid (severe) obesity due to excess calories E66.01 ; Bilateral low back pain without sciatica M54.5 and Heartburn R12 [place] [address] [place] [id number] [place] [address] Jan, History of UTI Z87.440 ; Well woman exam with routine gynecological exam Z01.419 ; Screening for breast cancer Z12.31 ; Candidal vaginitis B37.3 and BMI 40.0-44.9, adult Z68.41 [place] [address] [place] [id number] [place] [address] Jan, [facility] [address] [place] [address] Jan, Dysuria R30.0 ; Acute cystitis with hematuria N30.01 ; Yeast infection B37.9 and BMI 40.0-44.9, adult Z68.41 [place] [address] [address] Dec, [place] [address] [place] [id number] [place] [address] Dec, [place] [address] [place] [address] Nov, History of UTI Z87.440 [place] [address] [place] [id number] [place] [address] Nov, UTI symptoms R39.9 ; Acute nasopharyngitis J00 and BMI 40.0-44.9, adult Z68.41 [place] [address] [place] [address] Nov, [facility] [address] [place] [id number] [place] [address] Nov, Yeast infection involving the vagina and surrounding area B37.3 [facility] [address] [place] [id number] [place] [address] Nov, Yeast infection involving the vagina and surrounding area B37.3 [facility] [address] [place] [id number] [place] [address] Nov, Yeast infection involving the vagina and surrounding area B37.3 ; Body mass index (BMI) of 40.0-44.9 in adult Z68.41 and Morbid (severe) obesity due to excess calories E66.01 [facility] [address] [place] [id number] [place] [address] Oct, Abscess of groin, left L02.214 and Pre-diabetes R73.03 [facility] [address] [place] [id number] [place] [address] September, Pre-diabetes R73.03 [facility] [address] [place] [id number] [place] [address] Aug, [facility] [address] [place] [address] Jul, Bilateral low back pain without sciatica M54.5 [facility] [address] [place] [address] Jun, [facility] [address] [place] [address] Jun, [facility] [address] [place] [id number] [place] [address] Jun, [facility] [address] [place] [address] May, [facility] [address] [place] [id number] [place] [address] May, Ingrown left greater toenail L60.0 [place] [address] [address] May, [facility] [address] [address] May, Influenza A J10.1 ; Fever R50.9 and Body aches R52 [place] [address] [address] Apr, [facility] [address] [address] Apr, [place] [address] [address] Apr, [place] [address] [address] Apr, Abscess L02.91 and Obesity (BMI 30-39.9) E66.9 [place] [address] [address] Apr, [place] [address] [address] Apr, [place] [address] [address] Mar, Acute non-recurrent maxillary sinusitis J01.00 [place] [address] [address] Feb, Heartburn R12 [place] [address] [address] Feb, Heartburn R12 ; Low back pain M54.5 ; Essential hypertension I10 ; Bilateral low back pain without sciatica M54.5 ; Anxiety F41.9 ; Pre-diabetes R73.03 ; Other obesity due to excess calories E66.09 ; Alternating constipation and diarrhea R19.8 ; Dyspepsia R10.13 ; Generalized abdominal pain R10.84 ; Rhinosinusitis J32.9 and Boil L02.92 [place] [address] [address] Jan, Heartburn R12 [place] [address] [address] Jan, [place] [address] [address] Jan, [place] [address] [address] Jan, Acute seasonal allergic rhinitis due to pollen J30.1 and Irritable bowel syndrome without diarrhea K58.9 [place] [address] [address] Dec, Low back pain M54.5 and Acute cystitis with hematuria N30.01 [place] [address] [address] Dec, Low back pain M54.5 and Acute cystitis with hematuria N30.01 [place] [address] [address] Dec, Heartburn R12 ; Essential hypertension I10 ; Acute non-recurrent maxillary sinusitis J01.00 ; Bilateral low back pain without sciatica M54.5 ; Anxiety F41.9 ; Pre-diabetes R73.03 ; Pain in right foot M79.671 ; Pain in left foot M79.672 ; Other obesity due to excess calories E66.09 and Acute cystitis with hematuria N30.01 [place] [address] [address] Dec, Bilateral low back pain without sciatica M54.5 ; Acute non-recurrent maxillary sinusitis J01.00 and Pre-diabetes R73.03 [place] [address] [place] [id number] [place] [address] Oct, [facility] [address] [address] Aug, [facility] [address] [address] Aug, Acute vaginitis N76.0 ; Urinary frequency R35.0 ; Screen for STD (sexually transmitted disease) Z11.3 and Abscess L02.91 [place] [address] [address] Aug, Plantar wart of right foot B07.0 [place] [address] [address] Jul, Plantar wart of right foot B07.0 [place] [address] [address] Jun, [place] [address] [address] Jun, Heartburn R12 ; Essential hypertension I10 ; Anxiety F41.9 ; Folliculitis L73.9 and Plantar wart of right foot B07.0 [place] [address] [address] Jun, [facility] [place] [address] [address] May, Low back pain M54.5 and Other chronic pain G89.29 [place] [address] [address] May, [place] [address] [address] May, [place] [address] [address] May, Heartburn R12 ; Bilateral low back pain without sciatica M54.5 ; Essential hypertension I10 ; Long-term use of high-risk medication Z79.899 ; Anxiety F41.9 ; Impacted cerumen of right ear H61.21 ; Folliculitis L73.9 ; High risk bisexual behavior Z72.53 and General medical exam Z00.00 [facility] [address] [address] May, [facility] [address] [address] May, [facility] [address] [address] Mar, Acute nasopharyngitis J00 ; Acute intractable tension-type headache G44.201 and Cough R05 [place] [address] [address] Jan, [facility] [address] [address] Jan, Abscess L02.91 [facility] [address] [address] Jan, Urinary urgency R39.15 and Urinary tract infection without hematuria, site unspecified N39.0 [facility] [address] [place] [id number] [place] [address] Jan, [facility] [address] [place] [id number] [place] [address] Jan, [place] [address] [place] [id number] [place] [address] Dec, [facility] [address] [place] [id number] [place] [address] Dec, Dermatofibroma D23.9 [place] [address] [address] September, [facility] [address] [address] Aug, [facility] [address] [address] Aug, Pain in left knee M25.562 ; Heartburn R12 ; Bilateral low back pain without sciatica M54.5 ; Essential hypertension I10 ; Ingrown left big toenail L60.0 ; Chronic pain G89.29 ; Irritable bowel syndrome with constipation K58.9 and Skin infection L08.9 [facility] [address] [place] [id number] [place] [address] Aug, [facility] [address] [address] Jul, [facility] [address] [address] Jun, [facility] [address] [address] Jun, [facility] [address] [place] [id number] [place] [address] Jun, [facility] [address] [address] Jun, [facility] [address] [place] [id number] [place] [address] Jun, Upper respiratory infection J06.9 ; Bilateral low back pain without sciatica M54.5 and Headache R51 [facility] [address] [place] [id number] [place] [address] May, [facility] [address] [place] [id number] [place] [address] Apr, Bilateral low back pain without sciatica M54.5 ; Upper respiratory infection J06.9 and Yeast dermatitis B37.2 [facility] [address] [address] Apr, [facility] [address] [place] [id number] [place] [address] Apr, [facility] [address] [address] Feb, [facility] [address] [place] [id number] [place] [address] Feb, [facility] [address] [place] [id number] [place] [address] Feb, [facility] [address] [place] [id number] [place] [address] Feb, Essential hypertension I10 ; Heartburn R12 ; Irritable bowel syndrome without diarrhea K58.9 ; Bilateral low back pain, with sciatica presence unspecified M54.5 and Upper respiratory infection J06.9 [place] [address] [place] [id number] [place] [address] Feb, [place] [address] [place] [id number] [place] [address] Feb, Generalized anxiety disorder F41.1 and Grief F43.20 [place] [address] [place] [id number] [place] [address] Jan, [facility] [address] [place] [id number] [place] [address] Jan, Back pain 724.5 ; Upper respiratory infection 465.9 ; HTN (hypertension) 401.9 and Dyspepsia 536.8 [place] [address] [place] [id number] [place] [address] Dec, [facility] [address] [place] [id number] [place] [address] Nov, Back pain 724.5 ; Abdominal pain, bilateral lower quadrant 789.03 ; GERD (gastroesophageal reflux disease) 530.81 ; Upper respiratory infection 465.9 ; Dysuria 788.1 and HTN (hypertension) 401.9 [facility] [address] [place] [id number] [place] [address] Nov, [facility] [address] [place] [id number] [place] [address] Nov, [facility] [address], [place] [address] Nov, [facility] [address] [place] [id number] [place] [address] Nov, Cough 786.2 [facility] [address] [place] [id number] [place] [address] Nov, Cough 786.2 [facility] [address] [place] [id number] [place] [address] Oct, Unspecified episodic mood disorder 296.90 and Anxiety disorder, unspecified 300.00 [facility] [address] [place] [id number] [place] [address] Oct, Abdominal pain, left upper quadrant 789.02 ; Essential hypertension, benign 401.1 ; Irritable bowel syndrome 564.1 ; Abscess 682.9 ; Heartburn 787.1 ; Acute sinusitis, unspecified 461.9 ; Muscle spasm of back 724.8 ; Cough 786.2 and Skin tag 701.9 [facility] [address] [place] [id number] [place] [address] September, [facility] [address] [place] [id number] [place] [address] September, [facility] [address] [place] [id number] [place] [address] September, [facility] [address] [place] [address] Aug, [facility] [address] [place] [address] Aug, [facility] [address] [place] [id number] [place] [address] Jul, [facility] [address] [address] Jul, [facility] [address] [place] [id number] [place] [address] Jul, [facility] [place] [facility] [address] [id number] [place] [address] Jul, [facility] [place] [facility] [address] [id number] [place] [address] Jul, [facility] [place] [facility] [address] [id number] [place] [address] Jul, [facility] [place] [facility] [address] [id number] [place] [address] Jul, [facility] [place] [facility] [address] [id number] [place] [address] Jul, [facility] [place] [facility] [address] [id number] [place] [address] Jul, [facility] [place] [facility] [address] [id number] [place] [address] Jul, [facility] [place] [facility] [address] [id number] [place] [address] Jul, [facility] [place] [facility] [address] [id number] [place] [address] Jul, [facility] [place] [facility] [address] [id number] [place] [address] Jul, [facility] [place] [facility] [address] [id number] [place] [address] Jul, [facility] [place] [facility] [address] [id number] [place] [address] Jul, [facility] [place] [facility] [address] [id number] [place] [address] Jul, [facility] [place] [facility] [address] [id number] [place] [address] Jul, [facility] [place] [facility] [address] [id number] [place] [address] Jun, [facility] [place] [facility] [address] [id number] [place] [address] 27 Jun, 2014 [facility] [place] [facility] [address] [id number] [place] [address] Jun, 2014 [facility] [place] [facility] [address] [id number] [place] [address] 20 Jun, 2014 [facility] [place] [facility] [address] [id number] [place] [address] Jun, 2014 [facility] [place] [facility] [address] [id number] [place] [address] Jun, 2014 [facility] [place] [facility] [address] [id number] [place] [address] Jun, 2014 [facility] [place] [facility] [address] [id number] [place] [address] Jun, 2014 [facility] [place] [facility] [address] [id number] [place] [address] 29 Apr, 2014 [facility] [place] [facility] [address] [id number] [place] [address] 29 Apr, 2014 [facility] [place] [facility] [address] [id number] [place] [address] 23 Apr, 2014 [facility] [place] [facility] [address] [id number] [place] [address] 23 Apr, 2014 [facility] [place] [facility] [address] [id number] [place] [address] 18 Apr, 2014 [facility] [place] [facility] [address] [id number] [place] [address] 18 Apr, 2014 [facility] [place] [facility] [address] [id number] [place] [address] 15 Apr, 2014 [facility] [place] [facility] [address] [id number] [place] [address] 15 Apr, 2014 [facility] [place] [facility] [address] [id number] [place] [address] Apr, [facility] [place] [facility] [address] [id number] [place] [address] Apr, [facility] [place] [facility] [address] [id number] [place] [address] Apr, [facility] [place] [facility] [address] [id number] [place] [address] Apr, [facility] [place] [facility] [address] [id number] [place] [address] Apr, [facility] [place] [facility] [address] [id number] [place] [address] Apr, [facility] [place] [facility] [address] [id number] [place] [address] Apr, [facility] [place] [facility] [address] [id number] [place] [address] Feb, [facility] [place] [facility] [address] [id number] [place] [address] Feb, [facility] [place] [facility] [address] [id number] [place] [address] Feb, [facility] [place] [facility] [address] [id number] [place] [address] Feb, [facility] [place] [facility] [address] [id number] [place] [address] Feb, [facility] [place] [facility] [address] [id number] [place] [address] Feb, [facility] [place] [facility] [address] [id number] [place] [address] Jan, [facility] [place] [facility] [address] [id number] [place] [address] Jan, [facility] [place] [facility] [address] [id number] [place] [address] Jan, [facility] [place] [facility] [address] [id number] [place] [address] Jan, 2013 [facility] [place] [facility] [address] [id number] [place] [address] Jan, [facility] [place] [facility] [address] [id number] [place] [address] Jan, [facility] [place] [facility] [address] [id number] [place] [address] Dec, [facility] [place] [facility] [address] [id number] [place] [address] Dec, [facility] [place] [facility] [address] [id number] [place] [address] Dec, [facility] [place] [facility] [address] [id number] [place] [address] Dec, [facility] [place] [facility] [address] [id number] [place] [address] Nov, [facility] [place] [facility] [address] [id number] [place] [address] Nov, [facility] [place] [facility] [address] [id number] [place] [address] Nov, [facility] [place] [facility] [address] [id number] [place] [address] Nov, [facility] [place] [facility] [address] [id number] [place] [address] Nov, [facility] [place] [facility] [address] [id number] [place] [address] Nov, [facility] [place] [facility] [address] [id number] [place] [address] Nov, [facility] [place] [facility] [address] [id number] [place] [address] Nov, [facility] [place] [facility] [address] [id number] [place] [address] Oct, [facility] [place] [facility] [address] [id number] [place] [address] Oct, [facility] [place] [facility] [address] [id number] [place] [address] Oct, [facility] [place] [facility] [address] [id number] [place] [address] Oct, [facility] [place] [facility] [address] [id number] [place] [address] Oct, [facility] [place] [facility] [address] [id number] [place] [address] Oct, [facility] [place] [facility] [address] [id number] [place] [address] Oct, [facility] [place] [facility] [address] [id number] [place] [address] Oct, [facility] [place] [facility] [address] [id number] [place] [address] Oct, [facility] [place] [facility] [address] [id number] [place] [address] Oct, [facility] [place] [facility] [address] [id number], [place] [address] Oct, [facility] [place] [facility] [address] [id number], [place] [address] Oct, [facility] [place] [facility] [address] [id number], [place] [address] Oct, [facility] [place] [facility] [address] [id number] [place] [address] Oct, [facility] [place] [facility] [address] [id number], [place] [address] Oct, [facility] [place] [facility] [address] [id number], [place] [address] Oct, [facility] [place] [facility] [address] [id number], [place] [address] Oct, [facility] [place] [facility] [address] [id number] [place] [address] 16 Oct, 2013 [facility] [place] [facility] [address] [id number] [place] [address] Oct, [facility] [place] [facility] [address] [id number] [place] [address] Oct, [facility] [place] [facility] [address] [id number] [place] [address] Oct, [facility] [place] [facility] [address] [id number] [place] [address] Oct, [facility] [place] [facility] [address] [id number] [place] [address] Oct, [facility] [place] [facility] [address] [id number] [place] [address] Oct, [facility] [place] [facility] [address] [id number] [place] [address] Oct, [facility] [place] [facility] [address] [address] [id number] [place] [address] Oct, [facility] [place] [facility] [address] [id number] [place] [address] Oct, [facility] [place] [facility] [address] [id number] [place] [address] Oct, [facility] [place] [facility] [address] [id number], [place] [address] Oct, [facility] [place] [facility] [address] [id number] [place] [address] Oct, [facility] [place] [facility] [address] [id number] [place] [address] September, [facility] [place] [facility] [address] [id number] [place] [address] September, [facility] [place] [facility] [address] [id number] [place] [address] September, [facility] [place] [facility] [address] [id number] [place] [address] September, [facility] [place] [facility] [address] [id number] [place] [address] September, [facility] [place] [facility] [address] [id number] [place] [address] September, [facility] [place] [facility] [address] [id number] [place] [address] September, [facility] [place] [facility] [address] [id number] [place] [address] September, [facility] [place] [facility] [address] [id number] [place] [address] September, [facility] [place] [facility] [address] [id number] [place] [address] September, [facility] [place] [facility] [address] [id number] [place] [address] September, [facility] [place] [facility] [address] [id number] [place] [address] September, [facility] [place] [facility] [address] [id number] [place] [address] September, [facility] [place] [facility] [address] [id number] [place] [address] September, [facility] [place] [facility] [address] [id number] [place] [address] September, [facility] [place] [facility] [address] [id number] [place] [address] September, [facility] [place] [facility] [address] [id number] [place] [address] September, [facility] [place] [facility] [address] [id number] [place] [address] September, [facility] [place] [facility] [address] [id number] [place] [address] Aug, [facility] [place] [facility] [address] [id number] [place] [address] Aug, [facility] [place] [facility] [address] [id number] [place] [address] Aug, [facility] [place] [facility] [address] [id number] [place] [address] Aug, [facility] [place] [facility] [address] [id number] [place] [address] Aug, [facility] [place] [facility] [address] [id number] [place] [address] Aug, [facility] [place] [facility] [address] [id number] [place] [address] Jul, [facility] [place] [facility] [address] [id number] [place] [address] Jul, [facility] [place] [facility] [address] [id number] [place] [address] Jul, [facility] [place] [facility] [address] [id number] [place] [address] Jul, [facility] [place] [facility] [address] [id number] [place] [address] Jun, [facility] [place] [facility] [address] [id number] [place] [address] Jun, [facility] [place] [facility] [address] [id number] [place] [address] Jun, [facility] [place] [facility] [address] [id number] [place] [address] Jun, [facility] [place] [facility] [address] [id number] [place] [address] Mar, [facility] [place] [facility] [address] [id number] [place] [address] 14 Mar, 2013 [facility] [address] [id number] [place] [address] Mar, [facility] [place] [facility] [address] [id number] [place] [address] Mar, [facility] [address] [id number] [place] [address] Feb, [facility] [place] [facility] [address] [id number] [place] [address] Feb, [facility] [address] [id number] [place] [address] Feb, [facility] [address] [id number] [place] [address] Jan, [facility] [place] [facility] [address] [id number] [place] [address] Jan, [facility] [address] [id number] [place] [address] Jan, [facility] [address] [id number] [place] [address] Jan, [facility] [address] [id number] [place] [address] Dec, [facility] [place] [facility] [address] [id number] [place] [address] Dec, [facility] [place] [facility] [address] [id number] [place] [address] Dec, [facility] [place] [facility] [address] [id number] [place] [address] Dec, [facility] [place] [facility] [address] [id number] [place] [address] Nov, [facility] [place] [facility] [address] [id number] [place] [address] Nov, [facility] [place] [facility] [address] [id number] [place] [address] Nov, [facility] [place] [facility] [address] [id number] [place] [address] Nov, [facility] [place] [facility] [address] [id number] [place] [address] Nov, [facility] [place] [facility] [address] [id number] [place] [address] Nov, [facility] [place] [facility] [address] [id number] [place] [address] Oct, [facility] [place] [facility] [address] [id number] [place] [address] Oct, [facility] [place] [facility] [address] [id number] [place] [address] Oct, [facility] [place] [facility] [address] [id number] [place] [address] Oct, [facility] [place] [facility] [address] [id number] [place] [address] Oct, [facility] [place] [facility] [address] [id number] [place] [address] 16 Oct, 2012 [facility] [place] [facility] [address] [id number] [place] [address] Oct, [facility] [place] [facility] [address] [id number], [place] [address] 13 Oct, 2012 [facility] [place] [facility] [address] [id number] [place] [address] Oct, [facility] [place] [facility] [address] [id number] [place] [address] 07 Oct, 2012 [facility] [place] [facility] [address] [id number] [place] [address] September, [facility] [place] [facility] [address] [id number], [place] [address] September, [facility] [address] [id number] [place] [address] September, [facility] [address] [id number] [place] [address] Aug, [facility] [address] [id number] [place] [address] Aug, [facility] [address] [id number] [place] [address] Aug, [facility] [address] [id number] [place] [address] Aug, [facility] [address] [id number] [place] [address] Jul, [facility] [address] [id number] [place] [address] Jul, [facility] [address] [id number] [place] [address] Jul, [facility] [address] [id number] [place] [address] Jul, [facility] [address] [facility] [id number] [place] [address] Jul, [facility] [address] [id number] [place] [address] Jul, [facility] [address] [id number] [place] [address] May, [facility] [address] [id number] [place] [address] May, [facility] [address] [id number] [place] [address] May, [facility] [address] [id number] [place] [address] May, [facility] [place] [facility] [address] [id number] [place] [address] May, [facility] [place] [facility] [address] [id number] [place] [address] May, [facility] [place] [facility] [address] [id number] [place] [address] May, [facility] [place] [facility] [address] [id number] [place] [address] 18 May, 2012 [facility] [place] [facility] [address] [id number] [place] [address] 17 May, 2012 [facility] [place] [facility] [address] [id number] [place] [address] 17 May, 2012 [facility] [place] [facility] [address] [id number] [place] [address] 16 May, 2012 [facility] [place] [facility] [address] [id number] [place] [address] Apr, [facility] [place] [facility] [address] [id number] [place] [address] Apr, [facility] [place] [facility] [address] [id number] [place] [address] Apr, [facility] [place] [facility] [address] [id number] [place] [address] Apr, [facility] [place] [facility] [address] [id number] [place] [address] Apr, [facility] [place] [facility] [address] [id number] [place] [address] Apr, [facility] [place] [facility] [address] [id number] [place] [address] Mar, [facility] [place] [facility] [address] [id number] [place] [address] Mar, [facility] [place] [facility] [address] [id number] [place] [address] Mar, [facility] [place] [facility] [address] [id number] [place] [address] Mar, [facility] [place] [facility] [address] [id number] [place] [address] Mar, [facility] [place] [facility] [address] [id number] [place] [address] Mar, [facility] [place] [facility] [address] [id number] [place] [address] Mar, [facility] [place] [facility] [address] [id number] [place] [address] Mar, [facility] [place] [facility] [address] [id number] [place] [address] Feb, [facility] [place] [facility] [address] [id number] [place] [address] Feb, [facility] [place] [facility] [address] [id number], [place] [address] 16 Feb, 2012 [facility] [place] [facility] [address] [id number], [place] [address] 15 Feb, 2012 [facility] [place] [facility] [address] [facility] [id number], [place] [address] 15 Feb, 2012 [facility] [place] [facility] [address] [id number], [place] [address] 13 Feb, 2012 [facility] [place] [facility] [address] [id number], [place] [address] 12 Feb, 2012 [facility] [place] [facility] [address] [id number], [place] [address] Feb, [facility] [place] [facility] [address] [facility] [id number], [place] [address] 12 Feb, 2012 [facility] [place] [facility] [address] [facility] [id number], [place] [address] Feb, [facility] [place] [facility] [address] [id number] [place] [address] 11 Feb, 2012 [facility] [place] [facility] [address] [id number] [place] [address] Feb, [facility] [place] [facility] [address] [id number] [place] [address] Feb, [facility] [place] [facility] [address] [id number] [place] [address] Feb, [facility] [place] [facility] [address] [id number] [place] [address] Feb, [facility] [place] [facility] [address] [id number] [place] [address] Feb, [facility] [place] [facility] [address] [id number] [place] [address] Feb, [facility] [place] [facility] [address] [id number] [place] [address] Feb, [facility] [place] [facility] [address] [id number] [place] [address] 19 Jan, 2012 [facility] [place] [facility] [address] [id number] [place] [address] 13 Jan, 2012 [facility] [place] [facility] [address] [id number] [place] [address] 11 Jan, 2012 [facility] [place] [facility] [address] [id number] [place] [address] 10 Jan, 2012 [facility] [place] [facility] [address] [id number] [place] [address] 05 Jan, 2012 [facility] [place] [facility] [address] [id number] [place] [address] Dec, [facility] [place] [facility] [address] [id number] [place] [address] Dec, [facility] [place] [facility] [address] [id number] [place] [address] Dec, [facility] [place] [facility] [address] [id number] [place] [address] Dec, [facility] [place] [facility] [address] [id number] [place] [address] Dec, [facility] [place] [facility] [address] [id number] [place] [address] Dec, [facility] [place] [facility] [address] [id number] [place] [address] Nov, [facility] [address] [id number] [place] [address] Nov, [facility] [place] [facility] [address] [id number] [place] [address] Nov, [facility] [address] [id number] [place] [address] Nov, [facility] [address] [id number] [place] [address] Nov, [facility] [place] [facility] [address] [id number] [place] [address] Oct, [facility] [place] [facility] [address] [id number] [place] [address] Oct, [facility] [place] [facility] [address] [id number] [place] [address] Oct, [facility] [place] [facility] [address] [id number] [place] [address] September, [facility] [place] [facility] [address] [id number] [place] [address] September, [facility] [place] [facility] [address] [id number] [place] [address] September, [facility] [place] [facility] [address] [id number] [place] [address] September, [facility] [place] [facility] [address] [id number] [place] [address] September, [facility] [address] [id number] [place] [address] September, [facility] [address] [id number] [place] [address] Aug, [facility] [address] [id number] [place] [address] Aug, [facility] [address] [id number] [place] [address] Aug, [facility] [address] [id number] [place] [address] Jun, [facility] [place] [facility] [address] [id number] [place] [address] Jun, [facility] [address] [id number] [place] [address] Jun, [facility] [place] [facility] [address] [id number] [place] [address] Jun, [facility] [address] [id number] [place] [address] May, [facility] [address] [id number] [place] [address] May, [facility] [address] [id number] [place] [address] May, [facility] [place] [facility] [address] [id number] [place] [address] May, [facility] [place] [facility] [address] [id number] [place] [address] May, [facility] [place] [facility] [address] [id number] [place] [address] Apr, [facility] [place] [facility] [address] [id number] [place] [address] Apr, [facility] [place] [facility] [address] [id number] [place] [address] 20 Apr, 2011 [facility] [place] [facility] [address] [id number] [place] [address] Apr, [facility] [place] [facility] [address] [id number] [place] [address] Apr, [facility] [place] [facility] [address] [id number] [place] [address] 16 Apr, 2011 [facility] [place] [facility] [address] [id number] [place] [address] 16 Apr, 2011 [facility] [place] [facility] [address] [id number] [place] [address] Mar, [facility] [place] [facility] [address] [id number] [place] [address] Mar, [facility] [place] [facility] [address] [id number] [place] [address] Mar, [facility] [place] [facility] [address] [id number] [place] [address] Feb, [facility] [place] [facility] [address] [id number] [place] [address] 24 Feb, 2011 [facility] [place] [facility] [address] [id number] [place] [address] Feb, [facility] [place] [facility] [address] [id number] [place] [address] Feb, [facility] [place] [facility] [address] [id number] [place] [address] 18 Feb, 2011 [facility] [place] [facility] [address] [id number] [place] [address] 17 Feb, 2011 [facility] [place] [facility] [address] [id number] [place] [address] 13 Jan, 2011 [facility] [place] [facility] [address] [id number] [place] [address] Jan, [facility] [place] [facility] [address] [id number] [place] [address] September, [facility] [place] [facility] [address] [id number] [place] [address] Jun, [facility] [place] [facility] [address] [id number] [place] [address] Apr, [facility] [place] [facility] [address] [id number] [place] [address] Apr, [facility] [place] [facility] [address] [id number] [place] [address] Apr, [facility] [place] [facility] [address] [id number] [place] [address] Apr, [facility] [place] [facility] [address] [id number] [place] [address] Apr, [facility] [place] [facility] [address] [id number] [place] [address] 30 Mar, 2010 [facility] [place] [facility] [address] [id number] [place] [address] Mar, [facility] [place] [facility] [address] [id number] [place] [address] Mar, [facility] [place] [facility] [address] [id number], [place] [address] Mar, [facility] [place] [facility] [address] [id number], [place] [address] 27 Feb, 2010 [facility] [place] [facility] [address] [id number] [place] [address] 15 Jan, 2010 [facility] [place] [facility] [address] [id number], [place] [address] 07 Mar, 2009 [facility] [place] [facility] [address] [id number], [place] [address] 15 Jan, 2009 [facility] [place] [facility] [address] [facility] [id number] [place] [address] Oct, [facility] [address] [facility] [id number] [place] [address] Apr, IMMUNIZATIONS No Known Immunizations SOCIAL HISTORY Never Assessed REASON FOR VISIT EMR[place] [place]AN OF CARE VITAL SIGNS MEDICATIONS Unknown [...]
--- OUTSIDE RECORDS SUMMARY | 2018-09-28 04:02 | XMS REPORT ---
Author Author Migration, Doctor Organization [facility] Address Unknown Phone Unavailable Care Team Providers Care Daycare Provider Name Role Phone Migration, Doctor Unavailable Unavailable PROBLEMS Type Condition ICD9-CM Code HWA86-NA Code Onset Dates Condition Status SNOMED Code Problem Essential hypertension I10 Active 98275801 Problem Bilateral low back pain without sciatica M54.5 Active 555600736 Problem Anxiety F41.9 Active 53473560 Problem Dysuria R30.0 Active 97725953 Problem Irritable bowel syndrome without diarrhea K58.9 Active 99860934 Problem Rhinosinusitis J32.9 Active 533799768 Problem Hypertriglyceridemia E78.1 Active 982675107 Problem Pre-diabetes R73.03 Active 536303414 Problem Alternating constipation and diarrhea R19.8 Active 324379018 Problem Body mass index (BMI) of 40.0-44.9 in adult Z68.41 Active 652432292 Problem Morbid (severe) obesity due to excess calories E66.01 Active 292956015 ALLERGIES No Information ENCOUNTERS Encounter Location Date Diagnosis [facility] [id number] [place] [address] Aug, Rhinosinusitis J32.9 ; Bronchitis J40 and Folliculitis L73.9 [facility] [id number] [place] [address] Jul, [facility] [address] [address] Jul, [facility] [address] [address] Jun, [facility] [address] [address] Jun, Acute vaginitis N76.0 ; Dermatitis L30.9 ; BMI 40.0-44.9, adult Z68.41 and Morbid obesity E66.01 [facility] [address] [address] Jun, Vaginal discharge N89.8 ; Urinary tract infection without hematuria, site unspecified N39.0 and BMI 40.0-44.9, adult Z68.41 [facility] [id number] [place] [address] May, [facility] [id number] [place] [address] May, [facility] [id number] [place] [address] Apr, Urinary tract infection, site not specified N39.0 [facility] [id number] [place] [address] Apr, Dysuria R30.0 ; Urinary tract infection, site not specified N39.0 and Hematuria, unspecified R31.9 [facility] [id number] [place] [address] Mar, [facility] [id number] [place] [address] Mar, Left anterior knee pain M25.562 ; Abscess of buttock, left L02.31 and BMI 40.0-44.9, adult Z68.41 [facility] [id number] [place] [address] Mar, [facility] [id number] [place] [address] Feb, Abrasion of right ear canal, initial encounter S00.411A ; Left wrist pain M25.532 ; Right acute serous otitis media, recurrence not specified H65.01 and BMI 40.0-44.9, adult Z68.41 [facility] [id number] [place] [address] Jan, [facility] [id number] [place] [address] Jan, [facility] [id number] [place] [address] Jan, BMI 40.0-44.9, adult Z68.41 ; Pre-diabetes R73.03 ; Essential hypertension I10 ; Morbid (severe) obesity due to excess calories E66.01 ; Bilateral low back pain without sciatica M54.5 and Heartburn R12 [facility] [id number] [place] [address] Jan, History of UTI Z87.440 ; Well woman exam with routine gynecological exam Z01.419 ; Screening for breast cancer Z12.31 ; Candidal vaginitis B37.3 and BMI 40.0-44.9, adult Z68.41 [facility] [id number] [place] [address] Jan, [facility] [id number] [place] [address] Jan, Dysuria R30.0 ; Acute cystitis with hematuria N30.01 ; Yeast infection B37.9 and BMI 40.0-44.9, adult Z68.41 [facility] [id number] [place] [address] Dec, [facility] [address] [address] Dec, [facility] [id number] [place] [address] Nov, History of UTI Z87.440 [facility] [id number] [place] [address] Nov, UTI symptoms R39.9 ; Acute nasopharyngitis J00 and BMI 40.0-44.9, adult Z68.41 [facility] [id number] [place] [address] Nov, [facility] [id number] [place] [address] Nov, Yeast infection involving the vagina and surrounding area B37.3 [facility] [id number] [place] [address] Nov, Yeast infection involving the vagina and surrounding area B37.3 [facility] [id number] [place] [address] Nov, Yeast infection involving the vagina and surrounding area B37.3 ; Body mass index (BMI) of 40.0-44.9 in adult Z68.41 and Morbid (severe) obesity due to excess calories E66.01 [facility] [id number] [place] [address] Oct, Abscess of groin, left L02.214 and Pre-diabetes R73.03 [facility] [id number] [place] [address] September, Pre-diabetes R73.03 [facility] [id number] [place] [address] Aug, [facility] [id number] [place] [address] Jul, Bilateral low back pain without sciatica M54.5 [facility] [id number] [place] [address] Jun, [facility] [id number] [place] [address] Jun, [facility] [id number] [place] [address] Jun, [facility] [id number] [place] [address] May, [facility] [id number] [place] [address] May, Ingrown left greater toenail L60.0 [facility] [id number] [place] [address] May, [facility] [address] [address] May, Influenza A J10.1 ; Fever R50.9 and Body aches R52 [facility] [address] [address] Apr, [facility] [address] [address] Apr, [facility] [address] [address] Apr, [facility] [address] [address] Apr, Abscess L02.91 and Obesity (BMI 30-39.9) E66.9 [facility] [address] [address] Apr, [facility] [address] [address] Apr, [facility] [address] [address] Mar, Acute non-recurrent maxillary sinusitis J01.[address] [address] 12 Feb, 2017 Heartburn R12 [facility] [address] [address] 11 Feb, 2017 Heartburn R12 ; Low back pain M54.5 ; Essential hypertension I10 ; Bilateral low back pain without sciatica M54.5 ; Anxiety F41.9 ; Pre-diabetes R73.03 ; Other obesity due to excess calories E66.09 ; Alternating constipation and diarrhea R19.8 ; Dyspepsia R10.13 ; Generalized abdominal pain R10.84 ; Rhinosinusitis J32.9 and Boil L02.[address] [id number] [address] Jan, Heartburn R12 [facility] [id number] [place] [address] Jan, [facility] [id number] [place] [address] Jan, [facility] [id number] [place] [address] Jan, Acute seasonal allergic rhinitis due to pollen J30.1 and Irritable bowel syndrome without diarrhea K58.9 [facility] [id number] [place] [address] Dec, Low back pain M54.5 and Acute cystitis with hematuria N30.01 [facility] [id number] [place] [address] Dec, Low back pain M54.5 and Acute cystitis with hematuria N30.01 [facility] [id number] [place] [address] Dec, Heartburn R12 ; Essential hypertension I10 ; Acute non-recurrent maxillary sinusitis J01.00 ; Bilateral low back pain without sciatica M54.5 ; Anxiety F41.9 ; Pre-diabetes R73.03 ; Pain in right foot M79.671 ; Pain in left foot M79.672 ; Other obesity due to excess calories E66.09 and Acute cystitis with hematuria N30.01 [facility] [id number] [place] [address] Dec, Bilateral low back pain without sciatica M54.5 ; Acute non-recurrent maxillary sinusitis J01.00 and Pre-diabetes R73.03 [facility] [id number] [place] [address] Oct, [facility] [id number] [place] [address] Aug, [facility] [id number] [place] [address] Aug, Acute vaginitis N76.0 ; Urinary frequency R35.0 ; Screen for STD (sexually transmitted disease) Z11.3 and Abscess L02.91 [facility] [id number] [place] [address] Aug, Plantar wart of right foot B07.0 [facility] [address] [address] Jul, Plantar wart of right foot B07.0 [facility] [address] [address] Jun, [facility] [address] [address] Jun, Heartburn R12 ; Essential hypertension I10 ; Anxiety F41.9 ; Folliculitis L73.9 and Plantar wart of right foot B07.0 [facility] [id number] [place] [address] Jun, [facility] [address] [address] May, Low back pain M54.5 and Other chronic pain G89.29 [facility] [address] [address] May, [facility] [id number] [place] [address] May, [facility] [address] [address] May, Heartburn R12 ; Bilateral low back pain without sciatica M54.5 ; Essential hypertension I10 ; Long-term use of high-risk medication Z79.899 ; Anxiety F41.9 ; Impacted cerumen of right ear H61.21 ; Folliculitis L73.9 ; High risk bisexual behavior Z72.53 and General medical exam Z00.00 [facility] [id number] [place] [address] May, [facility] [id number] [place] [address] May, [facility] [id number] [place] [address] Mar, Acute nasopharyngitis J00 ; Acute intractable tension-type headache G44.201 and Cough R05 [facility] [id number] [place] [address] Jan, [facility] [address] [address] Jan, Abscess L02.[address] [facility] [id number] [place] [address] Jan, Urinary urgency R39.15 and Urinary tract infection without hematuria, site unspecified N39.0 [facility] [id number] [place] [address] Jan, [facility] [id number] [place] [address] Jan, [facility] [id number] [place] [address] Dec, [facility] [id number] [place] [address] Dec, Dermatofibroma D23.9 [facility] [id number] [place] [address] September, [facility] [id number] [place] [address] Aug, [facility] [id number] [place] [address] Aug, Pain in left knee M25.562 ; Heartburn R12 ; Bilateral low back pain without sciatica M54.5 ; Essential hypertension I10 ; Ingrown left big toenail L60.0 ; Chronic pain G89.29 ; Irritable bowel syndrome with constipation K58.9 and Skin infection L08.9 [facility] [id number] [place] [address] Aug, [facility] [id number] [place] [address] Jul, [facility] [address] [address] Jun, [facility] [address] [address] Jun, [facility] [id number] [place] [address] Jun, [facility] [id number] [place] [address] Jun, [facility] [id number] [place] [address] Jun, Upper respiratory infection J06.9 ; Bilateral low back pain without sciatica M54.5 and Headache R51 [facility] [id number] [place] [address] May, [facility] [id number] [place] [address] Apr, Bilateral low back pain without sciatica M54.5 ; Upper respiratory infection J06.9 and Yeast dermatitis B37.2 [facility] [id number] [place] [address] Apr, [facility] [address] [address] Apr, [facility] [id number] [place] [address] Feb, [facility] [address] [address] Feb, [facility] [id number] [place] [address] Feb, [facility] [id number] [place] [address] Feb, Essential hypertension I10 ; Heartburn R12 ; Irritable bowel syndrome without diarrhea K58.9 ; Bilateral low back pain, with sciatica presence unspecified M54.5 and Upper respiratory infection J06.9 [facility] [id number] [place] [address] Feb, [facility] [address] [address] Feb, Generalized anxiety disorder F41.1 and Grief F43.20 [facility] [id number] [place] [address] Jan, [facility] [address] [address] Jan, Back pain 724.5 ; Upper respiratory infection 465.9 ; HTN (hypertension) 401.9 and Dyspepsia 536.8 [facility] [id number] [place] [address] Dec, [facility] [id number] [place] [address] Nov, Back pain 724.5 ; Abdominal pain, bilateral lower quadrant 789.03 ; GERD (gastroesophageal reflux disease) 530.81 ; Upper respiratory infection 465.9 ; Dysuria 788.1 and HTN (hypertension) 401.9 [facility] [id number] [place] [address] Nov, [facility] [id number] [place] [address] Nov, [facility] [id number] [place] [address] Nov, [facility] [address], [place] [address] Nov, Cough 786.2 [facility] [id number] [place] [address] Nov, Cough 786.2 [facility] [id number] [place] [address] Oct, Unspecified episodic mood disorder 296.90 and Anxiety disorder, unspecified 300.00 [facility] [id number] [place] [address] Oct, Abdominal pain, left upper quadrant 789.02 ; Essential hypertension, benign 401.1 ; Irritable bowel syndrome 564.1 ; Abscess 682.9 ; Heartburn 787.1 ; Acute sinusitis, unspecified 461.9 ; Muscle spasm of back 724.8 ; Cough 786.2 and Skin tag 701.9 [facility] [id number] [place] [address] September, [facility] [id number] [place] [address] September, [facility] [id number] [place] [address] September, [facility] [id number] [place] [address] Aug, [facility] [id number] [place] [address] Aug, [facility] [address] [address] Jul, [facility] [id number] [place] [address] Jul, [facility] [id number] [place] [address] Jul, [facility] [id number] [place] [address] Jul, [facility] [place] [facility] [address] [id number] [place] [address] Jul, [facility] [place] [facility] [address] [id number] [place] [address] Jul, [facility] [place] [facility] [address] [id number] [place] [address] Jul, [facility] [place] [facility] [address] [id number] [place] [address] Jul, [facility] [place] [facility] [address] [id number] [place] [address] Jul, [facility] [place] [facility] [address] [id number] [place] [address] Jul, [facility] [place] [facility] [address] [id number] [place] [address] Jul, [facility] [place] [facility] [address] [id number] [place] [address] Jul, [facility] [place] [facility] [address] [id number] [place] [address] Jul, [facility] [place] [facility] [address] [id number] [place] [address] Jul, [facility] [place] [facility] [address] [id number] [place] [address] Jul, [facility] [place] [facility] [address] [id number] [place] [address] Jul, [facility] [place] [facility] [address] [id number] [place] [address] Jul, [facility] [place] [facility] [address] [id number] [place] [address] Jun, [facility] [place] [facility] [address] [id number] [place] [address] Jun, [facility] [place] [facility] [address] [id number] [place] [address] Jun, 2014 [facility] [place] [facility] [address] [id number] [place] [address] Jun, 2014 [facility] [place] [facility] [address] [id number] [place] [address] Jun, 2014 [facility] [place] [facility] [address] [id number] [place] [address] Jun, 2014 [facility] [place] [facility] [address] [id number] [place] [address] Jun, 2014 [facility] [place] [facility] [address] [id number] [place] [address] Jun, 2014 [facility] [place] [facility] [address] [id number] [place] [address] Apr, [facility] [place] [facility] [address] [id number] [place] [address] 29 Apr, 2014 [facility] [place] [facility] [address] [id number] [place] [address] Apr, [facility] [place] [facility] [address] [id number] [place] [address] Apr, [facility] [place] [facility] [address] [id number] [place] [address] 18 Apr, 2014 [facility] [place] [facility] [address] [id number] [place] [address] 18 Apr, 2014 [facility] [place] [facility] [address] [id number] [place] [address] 15 Apr, 2014 [facility] [place] [facility] [address] [id number] [place] [address] 15 Apr, 2014 [facility] [place] [facility] [address] [id number] [place] [address] 12 Apr, 2014 [facility] [place] [facility] [address] [id number] [place] [address] Apr, [facility] [place] [facility] [address] [id number] [place] [address] Apr, [facility] [place] [facility] [address] [id number] [place] [address] Apr, [facility] [place] [facility] [address] [id number] [place] [address] Apr, [facility] [place] [facility] [address] [id number] [place] [address] Apr, [facility] [place] [facility] [address] [id number] [place] [address] Apr, [facility] [place] [facility] [address] [id number] [place] [address] Feb, [facility] [place] [facility] [address] [id number] [place] [address] Feb, [facility] [place] [facility] [address] [id number] [place] [address] Feb, [facility] [place] [facility] [address] [id number] [place] [address] Feb, [facility] [place] [facility] [address] [id number] [place] [address] Feb, [facility] [place] [facility] [address] [id number] [place] [address] Feb, [facility] [place] [facility] [address] [id number], [place] [address] Jan, [facility] [place] [facility] [address] [id number] [place] [address] Jan, [facility] [place] [facility] [address] [id number] [place] [address] Jan, [facility] [place] [facility] [address] [id number] [place] [address] 05 Jan, 2014 [facility] [place] [facility] [address] [id number] [place] [address] Jan, [facility] [place] [facility] [address] [id number] [place] [address] Jan, [facility] [place] [facility] [address] [id number] [place] [address] Dec, [facility] [place] [facility] [address] [id number] [place] [address] Dec, [facility] [place] [facility] [address] [id number] [place] [address] Dec, [facility] [place] [facility] [address] [id number] [place] [address] Dec, [facility] [place] [facility] [address] [id number] [place] [address] Nov, [facility] [place] [facility] [address] [id number] [place] [address] Nov, [facility] [place] [facility] [address] [id number] [place] [address] Nov, [facility] [place] [facility] [address] [id number] [place] [address] Nov, [facility] [place] [facility] [address] [id number] [place] [address] Nov, [facility] [place] [facility] [address] [id number] [place] [address] Nov, [facility] [place] [facility] [address] [id number] [place] [address] Nov, [facility] [place] [facility] [address] [id number] [place] [address] Nov, [facility] [place] [facility] [address] [id number] [place] [address] Oct, [facility] [place] [facility] [address] [id number] [place] [address] Oct, [facility] [place] [facility] [address] [id number] [place] [address] Oct, [facility] [place] [facility] [address] [id number] [place] [address] Oct, [facility] [place] [facility] [address] [id number] [place] [address] Oct, [facility] [place] [facility] [address] [id number] [place] [address] Oct, [facility] [place] [facility] [address] [id number] [place] [address] Oct, [facility] [place] [facility] [address] [id number] [place] [address] Oct, [facility] [place] [facility] [address] [id number] [place] [address] Oct, [facility] [place] [facility] [address] [id number] [place] [address] Oct, [facility] [place] [facility] [address] [id number] [place] [address] Oct, [facility] [place] [facility] [address] [id number] [place] [address] Oct, [facility] [place] [facility] [address] [id number], [place] [address] Oct, [facility] [place] [facility] [address] [id number], [place] [address] Oct, [facility] [place] [facility] [address] [id number] [place] [address] Oct, [facility] [place] [facility] [address] [id number], [place] [address] 17 Oct, 2013 [facility] [place] [facility] [address] [id number], [place] [address] 16 Oct, 2013 [facility] [place] [facility] [address] [id number], [place] [address] 16 Oct, 2013 [facility] [place] [facility] [address] [id number] [place] [address] Oct, [facility] [place] [facility] [address] [id number] [place] [address] Oct, [facility] [place] [facility] [address] [id number] [place] [address] Oct, [facility] [place] [facility] [address] [id number] [place] [address] Oct, [facility] [place] [facility] [address] [id number] [place] [address] Oct, [facility] [place] [facility] [address] [id number] [place] [address] Oct, [facility] [place] [facility] [address] [id number] [place] [address] Oct, [facility] [place] [facility] [address] [id number] [place] [address] Oct, [facility] [place] [facility] [address] [id number] [place] [address] Oct, [facility] [place] [facility] [address] [id number] [place] [address] Oct, [facility] [place] [facility] [address] [id number] [place] [address] Oct, [facility] [place] [facility] [address] [id number] [place] [address] Oct, [facility] [place] [facility] [address] [id number] [place] [address] September, [facility] [place] [facility] [address] [id number] [place] [address] September, [facility] [place] [facility] [address] [id number] [place] [address] September, [facility] [place] [facility] [address] [id number] [place] [address] September, [facility] [place] [facility] [address] [id number] [place] [address] September, [facility] [place] [facility] [address] [id number] [place] [address] September, [facility] [place] [facility] [address] [id number] [place] [address] September, [facility] [place] [facility] [address] [id number] [place] [address] September, [facility] [place] [facility] [address] [id number] [place] [address] September, [facility] [place] [facility] [address] [id number] [place] [address] September, [facility] [place] [facility] [address] [id number] [place] [address] September, [facility] [place] [facility] [address] [id number] [place] [address] September, [facility] [place] [facility] [address] [id number] [place] [address] September, [facility] [place] [facility] [address] [id number] [place] [address] September, [facility] [place] [facility] [address] [id number] [place] [address] September, [facility] [place] [facility] [address] [id number] [place] [address] September, [facility] [place] [facility] [address] [id number] [place] [address] September, [facility] [place] [facility] [address] [id number] [place] [address] September, [facility] [place] [facility] [address] [id number] [place] [address] Aug, [facility] [place] [facility] [address] [id number] [place] [address] Aug, [facility] [place] [facility] [address] [id number] [place] [address] Aug, [facility] [place] [facility] [address] [id number] [place] [address] Aug, [facility] [place] [facility] [address] [id number] [place] [address] Aug, [facility] [place] [facility] [address] [id number] [place] [address] Aug, [facility] [place] [facility] [address] [id number] [place] [address] Jul, [facility] [place] [facility] [address] [id number] [place] [address] Jul, [facility] [place] [facility] [address] [id number] [place] [address] Jul, [facility] [place] [facility] [address] [id number] [place] [address] Jul, [facility] [place] [facility] [address] [id number] [place] [address] Jun, [facility] [place] [facility] [address] [id number] [place] [address] Jun, [facility] [place] [facility] [address] [id number] [place] [address] Jun, [facility] [place] [facility] [address] [id number] [place] [address] Jun, [facility] [place] [facility] [address] [id number] [place] [address] Mar, [facility] [place] [facility] [address] [id number] [place] [address] Mar, [facility] [place] [facility] [address] [id number] [place] [address] Mar, [facility] [address] [id number] [place] [address] Mar, [facility] [place] [facility] [address] [id number] [place] [address] Feb, [facility] [address] [id number] [place] [address] Feb, [facility] [place] [facility] [address] [id number] [place] [address] Feb, [facility] [address] [id number] [place] [address] Jan, [facility] [address] [id number] [place] [address] Jan, [facility] [place] [facility] [address] [id number] [place] [address] Jan, [facility] [address] [id number] [place] [address] Jan, [facility] [address] [id number] [place] [address] Dec, [facility] [address] [id number] [place] [address] Dec, [facility] [place] [facility] [address] [id number] [place] [address] Dec, [facility] [place] [facility] [address] [id number] [place] [address] Dec, [facility] [place] [facility] [address] [id number] [place] [address] Nov, [facility] [place] [facility] [address] [id number] [place] [address] Nov, [facility] [place] [facility] [address] [id number] [place] [address] Nov, [facility] [place] [facility] [address] [id number] [place] [address] Nov, [facility] [place] [facility] [address] [id number] [place] [address] Nov, [facility] [place] [facility] [address] [id number] [place] [address] Nov, [facility] [place] [facility] [address] [id number] [place] [address] Oct, [facility] [place] [facility] [address] [id number] [place] [address] Oct, [facility] [place] [facility] [address] [id number] [place] [address] Oct, [facility] [place] [facility] [address] [id number] [place] [address] Oct, [facility] [place] [facility] [address] [id number] [place] [address] Oct, [facility] [place] [facility] [address] [id number] [place] [address] 16 Oct, 2012 [facility] [place] [facility] [address] [id number] [place] [address] Oct, [facility] [place] [facility] [address] [id number] [place] [address] Oct, [facility] [place] [facility] [address] [id number] [address] Oct, [facility] [place] [facility] [address] [id number] [place] [address] Oct, [facility] [place] [facility] [address] [id number] [place] [address] September, [facility] [place] [facility] [address] [id number] [place] [address] September, [facility] [place] [facility] [address] [id number], [place] [address] September, [facility] [address] [id number] [place] [address] Aug, [facility] [address] [id number] [place] [address] Aug, [facility] [address] [id number] [place] [address] Aug, [facility] [address] [id number] [place] [address] Aug, [facility] [address] [id number] [place] [address] Jul, [facility] [address] [id number] [place] [address] Jul, [facility] [address] [id number] [place] [address] Jul, [facility] [address] [id number] [place] [address] Jul, [facility] [address] [id number] [place] [address] Jul, [facility] [address] [facility] [id number] [place] [address] Jul, [facility] [address] [id number] [place] [address] May, [facility] [address] [id number] [place] [address] May, [facility] [place] [facility] [address] [id number] [place] [address] May, [facility] [place] [facility] [address] [id number] [place] [address] May, [facility] [address] [id number] [place] [address] May, [facility] [place] [facility] [address] [id number] [place] [address] 22 May, 2012 [facility] [place] [facility] [address] [id number] [place] [address] May, [facility] [place] [facility] [address] [id number] [place] [address] 18 May, 2012 [facility] [place] [facility] [address] [id number] [place] [address] 17 May, 2012 [facility] [place] [facility] [address] [id number] [place] [address] 17 May, 2012 [facility] [place] [facility] [address] [id number] [place] [address] 16 May, 2012 [facility] [place] [facility] [address] [id number] [place] [address] Apr, [facility] [place] [facility] [address] [id number] [place] [address] Apr, [facility] [place] [facility] [address] [id number] [place] [address] Apr, [facility] [place] [facility] [address] [id number] [place] [address] Apr, [facility] [place] [facility] [address] [id number] [place] [address] Apr, [facility] [place] [facility] [address] [id number] [place] [address] Apr, [facility] [place] [facility] [address] [id number] [place] [address] Mar, [facility] [place] [facility] [address] [id number] [place] [address] Mar, [facility] [place] [facility] [address] [id number] [place] [address] Mar, [facility] [place] [facility] [address] [id number] [place] [address] Mar, [facility] [place] [facility] [address] [id number] [place] [address] Mar, [facility] [place] [facility] [address] [id number] [place] [address] Mar, [facility] [place] [facility] [address] [facility] [id number] [place] [address] Mar, [facility] [place] [facility] [address] [id number] [place] [address] Mar, [facility] [place] [facility] [address] [id number] [place] [address] Feb, [facility] [place] [facility] [address] [id number] [place] [address] Feb, [facility] [place] [facility] [address] [id number] [place] [address] 16 Feb, 2012 [facility] [place] [facility] [address] [id number], [place] [address] 15 Feb, 2012 [facility] [place] [facility] [address] [id number], [place] [address] 15 Feb, 2012 [facility] [place] [facility] [address] [facility] [id number][place] [address] 13 Feb, 2012 [facility] [place] [facility] [address] [id number], [place] [address] Feb, [facility] [place] [facility] [address] [id number], [place] [address] Feb, [facility] [place] [facility] [address] [id number], [place] [address] Feb, [facility] [place] [facility] [address] [id number], [place] [address] Feb, [facility] [place] [facility] [address] [facility] [id number], [place] [address] Feb, [facility] [place] [facility] [address] [id number] [place] [address] 11 Feb, 2012 [facility] [place] [facility] [address] [id number] [place] [address] Feb, [facility] [place] [facility] [address] [id number] [place] [address] Feb, [facility] [place] [facility] [address] [id number] [place] [address] Feb, [facility] [place] [facility] [address] [id number] [place] [address] Feb, [facility] [place] [facility] [address] [id number] [place] [address] Feb, [facility] [place] [facility] [address] [id number] [place] [address] Feb, [facility] [place] [facility] [address] [id number] [place] [address] 19 Jan, 2012 [facility] [place] [facility] [address] [id number] [place] [address] 13 Jan, 2012 [facility] [place] [facility] [address] [id number] [place] [address] 11 Jan, 2012 [facility] [place] [facility] [address] [id number] [place] [address] 10 Jan, 2012 [facility] [place] [facility] [address] [id number] [place] [address] 05 Jan, 2012 [facility] [place] [facility] [address] [id number] [place] [address] Dec, [facility] [place] [facility] [address] [id number] [place] [address] Dec, [facility] [place] [facility] [address] [id number] [place] [address] Dec, [facility] [place] [facility] [address] [id number] [place] [address] Dec, [facility] [place] [facility] [address] [id number] [place] [address] Dec, [facility] [place] [facility] [address] [id number] [place] [address] Dec, [facility] [place] [facility] [address] [id number] [place] [address] Nov, [facility] [place] [facility] [address] [id number] [place] [address] Nov, [facility] [address] [id number] [place] [address] Nov, [facility] [place] [facility] [address] [id number] [place] [address] Nov, [facility] [address] [id number] [place] [address] Nov, [facility] [address] [id number] [place] [address] Oct, [facility] [place] [facility] [address] [id number] [place] [address] Oct, [facility] [place] [facility] [address] [id number] [place] [address] Oct, [facility] [place] [facility] [address] [id number] [place] [address] September, [facility] [place] [facility] [address] [id number] [place] [address] September, [facility] [place] [facility] [address] [id number] [place] [address] September, [facility] [place] [facility] [address] [id number] [place] [address] September, [facility] [place] [facility] [address] [id number] [place] [address] September, [facility] [place] [facility] [address] [id number] [place] [address] September, [facility] [address] [id number] [place] [address] Aug, [facility] [address] [id number] [place] [address] Aug, [facility] [address] [id number] [place] [address] Aug, [facility] [address] [id number] [place] [address] Jun, [facility] [address] [id number] [place] [address] Jun, [facility] [address] [id number] [place] [address] Jun, [facility] [address] [id number] [place] [address] Jun, [facility] [address] [id number] [place] [address] May, [facility] [address] [id number] [place] [address] May, [facility] [address] [id number] [place] [address] May, [facility] [address] [id number] [place] [address] May, [facility] [place] [facility] [address] [id number] [place] [address] May, [facility] [place] [facility] [address] [id number] [place] [address] Apr, [facility] [place] [facility] [address] [id number] [place] [address] Apr, [facility] [place] [facility] [address] [facility] [id number] [place] [address] Apr, [facility] [place] [facility] [address] [id number] [place] [address] 19 Apr, 2011 [facility] [place] [facility] [address] [id number] [place] [address] 19 Apr, 2011 [facility] [place] [facility] [address] [id number] [place] [address] 16 Apr, 2011 [facility] [place] [facility] [address] [id number] [place] [address] 16 Apr, 2011 [facility] [place] [facility] [address] [id number] [place] [address] Mar, [facility] [place] [facility] [address] [id number] [place] [address] Mar, [facility] [place] [facility] [address] [id number] [place] [address] Mar, [facility] [place] [facility] [address] [id number] [place] [address] Feb, [facility] [place] [facility] [address] [id number] [place] [address] 24 Feb, 2011 [facility] [place] [facility] [address] [id number] [place] [address] Feb, [facility] [place] [facility] [address] [id number] [place] [address] Feb, [facility] [place] [facility] [address] [id number] [place] [address] 18 Feb, 2011 [facility] [place] [facility] [address] [id number] [place] [address] 17 Feb, 2011 [facility] [place] [facility] [address] [id number] [place] [address] 13 Jan, 2011 [facility] [place] [facility] [address] [id number] [place] [address] Jan, [facility] [place] [facility] [address] [id number] [place] [address] September, [facility] [address] [id number] [place] [address] Jun, [facility] [place] [facility] [address] [id number] [place] [address] Apr, [facility] [place] [facility] [address] [facility] [id number] [place] [address] Apr, [facility] [place] [facility] [address] [id number] [place] [address] Apr, [facility] [address] [id number] [place] [address] Apr, [facility] [place] [facility] [address] [id number] [place] [address] Apr, [facility] [place] [facility] [address] [facility] [id number] [place] [address] Mar, [facility] [place] [facility] [address] [id number], [place] [address] Mar, [facility] [address] [id number], [place] [address] Mar, [facility] [place] [facility] [address] [facility] [id number], [place] [address] Mar, [facility] [place] [facility] [address] [facility] [id number], [place] [address] Feb, [facility] [place] [facility] [address] [id number], [place] [address] 15 Jan, 2010 [facility] [place] [facility] [address] [id number], [place] [address] Mar, [facility] [place] [facility] [address] [facility] [id number], [place] [address] 15 Jan, 2009 [facility] [place] [facility] [address] [facility] [id number], [place] [address] Oct, [facility] [place] [facility] [address] [facility] [id number] [place] [address] Apr, IMMUNIZATIONS No Known Immunizations SOCIAL HISTORY Never Assessed REASON FOR VISIT EMR-[facility] [place] [...]
--- OUTSIDE RECORDS SUMMARY | 2018-09-28 04:02 | XMS REPORT ---
Author Author Migration, Doctor Organization [facility] Address Unknown Phone Unavailable Care Team Providers Care Car Blocker Name Role Phone Migration, Doctor Unavailable Unavailable PROBLEMS Type Condition ICD9-CM Code [id number] Code Onset Dates Condition Status SNOMED Code Problem Essential hypertension I10 Active 22154016 Problem Bilateral low back pain without sciatica M54.5 Active 113127306 Problem Anxiety F41.9 Active 89091550 Problem Dysuria R30.0 Active 63639181 Problem Irritable bowel syndrome without diarrhea K58.9 Active 48867173 Problem Rhinosinusitis J32.9 Active 335300265 Problem Hypertriglyceridemia E78.1 Active 902712924 Problem Pre-diabetes R73.03 Active 632163206 Problem Alternating constipation and diarrhea R19.8 Active 405159072 Problem Body mass index (BMI) of 40.0-44.9 in adult Z68.41 Active 952912931 Problem Morbid (severe) obesity due to excess calories E66.01 Active 734883726 ALLERGIES No Information ENCOUNTERS Encounter Location Date Diagnosis [place] [id number] [place] [address] Aug, Rhinosinusitis J32.9 ; Bronchitis J40 and Folliculitis L73.9 [place] [id number] [place] [address] Jul, [place] [address] [address] Jul, [place] [address] [address] Jun, [place] [address] [address] Jun, Acute vaginitis N76.0 ; Dermatitis L30.9 ; BMI 40.0-44.9, adult Z68.41 and Morbid obesity E66.01 [facility] [address] [address] Jun, Vaginal discharge N89.8 ; Urinary tract infection without hematuria, site unspecified N39.0 and BMI 40.0-44.9, adult Z68.41 [facility] [place] [id number] [place] [address] May, [place] [id number] [place] [address] May, [place] [id number] [place] [address] Apr, Urinary tract infection, site not specified N39.0 [place] [id number] [place] [address] Apr, Dysuria R30.0 ; Urinary tract infection, site not specified N39.0 and Hematuria, unspecified R31.9 [place] [id number] [place] [address] Mar, [place] [id number] [place] [address] Mar, Left anterior knee pain M25.562 ; Abscess of buttock, left L02.31 and BMI 40.0-44.9, adult Z68.41 [place] [id number] [place] [address] Mar, [facility] [id number] [place] [address] Feb, Abrasion of right ear canal, initial encounter S00.411A ; Left wrist pain M25.532 ; Right acute serous otitis media, recurrence not specified H65.01 and BMI 40.0-44.9, adult Z68.41 [place] [id number] [place] [address] Jan, [place] [id number] [place] [address] Jan, [place] [id number] [place] [address] Jan, BMI 40.0-44.9, adult Z68.41 ; Pre-diabetes R73.03 ; Essential hypertension I10 ; Morbid (severe) obesity due to excess calories E66.01 ; Bilateral low back pain without sciatica M54.5 and Heartburn R12 [place] [id number] [place] [address] Jan, History of UTI Z87.440 ; Well woman exam with routine gynecological exam Z01.419 ; Screening for breast cancer Z12.31 ; Candidal vaginitis B37.3 and BMI 40.0-44.9, adult Z68.41 [place] [id number] [place] [address] Jan, [facility] [id number] [place] [address] Jan, Dysuria R30.0 ; Acute cystitis with hematuria N30.01 ; Yeast infection B37.9 and BMI 40.0-44.9, adult Z68.41 [place] [id number] [place] [address] Dec, [place] [address] [address] Dec, [place] [id number] [place] [address] Nov, History of UTI Z87.440 [place] [id number] [place] [address] Nov, UTI symptoms R39.9 ; Acute nasopharyngitis J00 and BMI 40.0-44.9, adult Z68.41 [place] [id number] [place] [address] Nov, [place] [id number] [place] [address] Nov, Yeast infection involving the vagina and surrounding area B37.3 [facility] [place] [id number] [place] [address] Nov, Yeast infection involving the vagina and surrounding area B37.3 [facility] [place] [id number] [place] [address] Nov, Yeast infection involving the vagina and surrounding area B37.3 ; Body mass index (BMI) of 40.0-44.9 in adult Z68.41 and Morbid (severe) obesity due to excess calories E66.01 [place] [id number] [place] [address] Oct, Abscess of groin, left L02.214 and Pre-diabetes R73.03 [place] [id number] [place] [address] September, Pre-diabetes R73.03 [facility] [place] [id number] [place] [address] Aug, [facility] [place] [id number] [place] [address] Jul, Bilateral low back pain without sciatica M54.5 [facility] [place] [id number] [place] [address] Jun, [facility] [place] [id number] [place] [address] Jun, [facility] [place] [id number] [place] [address] Jun, [facility] [place] [id number] [place] [address] May, [facility] [place] [id number] [place] [address] May, Ingrown left greater toenail L60.0 [facility] [place] [id number] [place] [address] May, [facility] [address] [address] May, Influenza A J10.1 ; Fever R50.9 and Body aches R52 [place] [address] [address] Apr, [facility] [place] [address] [address] Apr, [place] [address] [address] Apr, [place] [address] [address] Apr, Abscess L02.91 and Obesity (BMI 30-39.9) E66.9 [place] [address] [address] Apr, [place] [address] [address] Apr, [place] [address] [address] Mar, Acute non-recurrent maxillary sinusitis J01.[address] [address] 12 Feb, 2017 Heartburn R12 [place] [address] [address] 11 Feb, 2017 Heartburn R12 ; Low back pain M54.5 ; Essential hypertension I10 ; Bilateral low back pain without sciatica M54.5 ; Anxiety F41.9 ; Pre-diabetes R73.03 ; Other obesity due to excess calories E66.09 ; Alternating constipation and diarrhea R19.8 ; Dyspepsia R10.13 ; Generalized abdominal pain R10.84 ; Rhinosinusitis J32.9 and Boil L02.[address] [id number] [address] Jan, Heartburn R12 [place] [id number] [place] [address] Jan, [facility] [place] [id number] [place] [address] Jan, [place] [id number] [place] [address] Jan, Acute seasonal allergic rhinitis due to pollen J30.1 and Irritable bowel syndrome without diarrhea K58.9 [place] [id number] [place] [address] Dec, Low back pain M54.5 and Acute cystitis with hematuria N30.01 [place] [id number] [place] [address] Dec, Low back pain M54.5 and Acute cystitis with hematuria N30.01 [place] [id number] [place] [address] Dec, Heartburn R12 ; Essential hypertension I10 ; Acute non-recurrent maxillary sinusitis J01.00 ; Bilateral low back pain without sciatica M54.5 ; Anxiety F41.9 ; Pre-diabetes R73.03 ; Pain in right foot M79.671 ; Pain in left foot M79.672 ; Other obesity due to excess calories E66.09 and Acute cystitis with hematuria N30.01 [place] [id number] [place] [address] Dec, Bilateral low back pain without sciatica M54.5 ; Acute non-recurrent maxillary sinusitis J01.00 and Pre-diabetes R73.03 [place] [id number] [place] [address] Oct, [facility] [id number] [place] [address] Aug, [facility] [id number] [place] [address] Aug, Acute vaginitis N76.0 ; Urinary frequency R35.0 ; Screen for STD (sexually transmitted disease) Z11.3 and Abscess L02.91 [place] [id number] [place] [address] Aug, Plantar wart of right foot B07.0 [place] [address] [address] Jul, Plantar wart of right foot B07.0 [place] [address] [address] Jun, [place] [address] [address] Jun, Heartburn R12 ; Essential hypertension I10 ; Anxiety F41.9 ; Folliculitis L73.9 and Plantar wart of right foot B07.0 [place] [id number] [place] [address] Jun, [facility] [address] [address] May, Low back pain M54.5 and Other chronic pain G89.29 [place] [address] [address] May, [place] [id number] [place] [address] May, [place] [address] [address] May, Heartburn R12 ; Bilateral low back pain without sciatica M54.5 ; Essential hypertension I10 ; Long-term use of high-risk medication Z79.899 ; Anxiety F41.9 ; Impacted cerumen of right ear H61.21 ; Folliculitis L73.9 ; High risk bisexual behavior Z72.53 and General medical exam Z00.00 [facility] [place] [id number] [place] [address] May, [facility] [place] [id number] [place] [address] May, [facility] [place] [id number] [place] [address] Mar, Acute nasopharyngitis J00 ; Acute intractable tension-type headache G44.201 and Cough R05 [facility] [place] [id number] [place] [address] Jan, [facility] [address] [address] Jan, Abscess L02.91 [facility] [id number] [place] [address] Jan, Urinary urgency R39.15 and Urinary tract infection without hematuria, site unspecified N39.0 [facility] [place] [id number] [place] [address] Jan, [facility] [place] [id number] [place] [address] Jan, [facility] [place] [id number] [place] [address] Dec, [place] [id number] [place] [address] Dec, Dermatofibroma D23.9 [facility] [place] [id number] [place] [address] September, [place] [id number] [place] [address] Aug, [place] [id number] [place] [address] Aug, Pain in left knee M25.562 ; Heartburn R12 ; Bilateral low back pain without sciatica M54.5 ; Essential hypertension I10 ; Ingrown left big toenail L60.0 ; Chronic pain G89.29 ; Irritable bowel syndrome with constipation K58.9 and Skin infection L08.9 [facility] [place] [id number] [place] [address] Aug, [facility] [place] [id number] [place] [address] Jul, [facility] [place] [address] [address] Jun, [facility] [place] [address] [address] Jun, [facility] [place] [id number] [place] [address] Jun, [facility] [place] [id number] [place] [address] Jun, [facility] [place] [id number] [place] [address] Jun, Upper respiratory infection J06.9 ; Bilateral low back pain without sciatica M54.5 and Headache R51 [facility] [place] [id number] [place] [address] May, [facility] [place] [id number] [place] [address] Apr, Bilateral low back pain without sciatica M54.5 ; Upper respiratory infection J06.9 and Yeast dermatitis B37.2 [facility] [place] [id number] [place] [address] Apr, [facility] [place] [address] [address] Apr, [facility] [place] [id number] [place] [address] Feb, [facility] [place] [address] [address] Feb, [facility] [place] [id number] [place] [address] Feb, [facility] [place] [id number] [place] [address] Feb, Essential hypertension I10 ; Heartburn R12 ; Irritable bowel syndrome without diarrhea K58.9 ; Bilateral low back pain, with sciatica presence unspecified M54.5 and Upper respiratory infection J06.9 [facility] [place] [id number] [place] [address] Feb, [place] [address] [address] Feb, Generalized anxiety disorder F41.1 and Grief F43.20 [place] [id number] [place] [address] Jan, [place] [address] [address] Jan, Back pain 724.5 ; Upper respiratory infection 465.9 ; HTN (hypertension) 401.9 and Dyspepsia 536.8 [place] [id number] [place] [address] Dec, [place] [id number] [place] [address] Nov, Back pain 724.5 ; Abdominal pain, bilateral lower quadrant 789.03 ; GERD (gastroesophageal reflux disease) 530.81 ; Upper respiratory infection 465.9 ; Dysuria 788.1 and HTN (hypertension) 401.9 [facility] [place] [id number] [place] [address] Nov, [facility] [place] [id number] [place] [address] Nov, [facility] [place] [id number] [place] [address] Nov, [facility] [place] [address] [address] Nov, Cough 786.2 [facility] [place] [id number] [place] [address] Nov, Cough 786.2 [facility] [place] [id number] [place] [address] Oct, Unspecified episodic mood disorder 296.90 and Anxiety disorder, unspecified 300.00 [facility] [place] [id number] [place] [address] Oct, Abdominal pain, left upper quadrant 789.02 ; Essential hypertension, benign 401.1 ; Irritable bowel syndrome 564.1 ; Abscess 682.9 ; Heartburn 787.1 ; Acute sinusitis, unspecified 461.9 ; Muscle spasm of back 724.8 ; Cough 786.2 and Skin tag 701.9 [facility] [place] [id number] [place] [address] September, [facility] [place] [id number] [place] [address] September, [facility] [place] [id number] [place] [address] September, [facility] [place] [id number] [place] [address] Aug, [facility] [place] [id number] [place] [address] Aug, [facility] [place] [address] [address] Jul, [facility] [place] [id number] [place] [address] Jul, [facility] [place] [id number] [place] [address] Jul, [facility] [place] [id number] [place] [address] Jul, [facility] [place] [facility] [address] [id number] [place] [address] Jul, [facility] [place] [facility] [address] [id number] [place] [address] Jul, [facility] [place] [facility] [address] [id number] [place] [address] Jul, [facility] [place] [facility] [address] [id number] [place] [address] Jul, [facility] [place] [facility] [address] [id number] [place] [address] Jul, [facility] [place] [facility] [address] [id number] [place] [address] Jul, [facility] [place] [facility] [address] [id number] [place] [address] Jul, [facility] [place] [facility] [address] [id number] [place] [address] Jul, [facility] [place] [facility] [address] [id number] [place] [address] Jul, [facility] [place] [facility] [address] [id number] [place] [address] Jul, [facility] [place] [facility] [address] [id number] [place] [address] Jul, [facility] [place] [facility] [address] [id number] [place] [address] Jul, [facility] [place] [facility] [address] [id number] [place] [address] Jul, [facility] [place] [facility] [address] [id number] [place] [address] Jun, [facility] [place] [facility] [address] [id number] [place] [address] Jun, [facility] [place] [facility] [address] [id number] [place] [address] Jun, 2014 [facility] [place] [facility] [address] [id number] [place] [address] Jun, 2014 [facility] [place] [facility] [address] [id number] [place] [address] Jun, 2014 [facility] [place] [facility] [address] [id number] [place] [address] Jun, 2014 [facility] [place] [facility] [address] [id number] [place] [address] Jun, 2014 [facility] [place] [facility] [address] [id number] [place] [address] Jun, 2014 [facility] [place] [facility] [address] [id number] [place] [address] Apr, [facility] [place] [facility] [address] [id number] [place] [address] 29 Apr, 2014 [facility] [place] [facility] [address] [id number] [place] [address] Apr, [facility] [place] [facility] [address] [id number] [place] [address] Apr, [facility] [place] [facility] [address] [id number] [place] [address] 18 Apr, 2014 [facility] [place] [facility] [address] [id number] [place] [address] 18 Apr, 2014 [facility] [place] [facility] [address] [id number] [place] [address] 15 Apr, 2014 [facility] [place] [facility] [address] [id number] [place] [address] 15 Apr, 2014 [facility] [place] [facility] [address] [id number] [place] [address] 12 Apr, 2014 [facility] [place] [facility] [address] [id number] [place] [address] Apr, [facility] [place] [facility] [address] [id number] [place] [address] Apr, [facility] [place] [facility] [address] [id number] [place] [address] Apr, [facility] [place] [facility] [address] [id number] [place] [address] Apr, [facility] [place] [facility] [address] [id number] [place] [address] Apr, [facility] [place] [facility] [address] [id number] [place] [address] Apr, [facility] [place] [facility] [address] [id number] [place] [address] Feb, [facility] [place] [facility] [address] [id number] [place] [address] Feb, [facility] [place] [facility] [address] [id number] [place] [address] Feb, [facility] [place] [facility] [address] [id number] [place] [address] Feb, [facility] [place] [facility] [address] [id number] [place] [address] Feb, [facility] [place] [facility] [address] [id number] [place] [address] Feb, [facility] [place] [facility] [address] [id number] [address] Jan, [facility] [place] [facility] [address] [id number] [place] [address] Jan, [facility] [place] [facility] [address] [id number] [place] [address] Jan, [facility] [place] [facility] [address] [id number] [place] [address] 05 Jan, 2014 [facility] [place] [facility] [address] [id number] [place] [address] Jan, [facility] [place] [facility] [address] [id number] [place] [address] Jan, [facility] [place] [facility] [address] [id number] [place] [address] Dec, [facility] [place] [facility] [address] [id number] [place] [address] Dec, [facility] [place] [facility] [address] [id number] [place] [address] Dec, [facility] [place] [facility] [address] [id number] [place] [address] Dec, [facility] [place] [facility] [address] [id number] [place] [address] Nov, [facility] [place] [facility] [address] [id number] [place] [address] Nov, [facility] [place] [facility] [address] [id number] [place] [address] Nov, [facility] [place] [facility] [address] [id number] [place] [address] Nov, [facility] [place] [facility] [address] [id number] [place] [address] Nov, [facility] [place] [facility] [address] [id number] [place] [address] Nov, [facility] [place] [facility] [address] [id number] [place] [address] Nov, [facility] [place] [facility] [address] [id number] [place] [address] Nov, [facility] [place] [facility] [address] [id number] [place] [address] Oct, [facility] [place] [facility] [address] [id number] [place] [address] Oct, [facility] [place] [facility] [address] [id number] [place] [address] Oct, [facility] [place] [facility] [address] [id number] [place] [address] Oct, [facility] [place] [facility] [address] [id number] [place] [address] Oct, [facility] [place] [facility] [address] [id number] [place] [address] Oct, [facility] [place] [facility] [address] [id number] [place] [address] Oct, [facility] [place] [facility] [address] [id number] [place] [address] Oct, [facility] [place] [facility] [address] [id number] [place] [address] Oct, [facility] [place] [facility] [address] [id number] [place] [address] Oct, [facility] [place] [facility] [address] [id number] [place] [address] Oct, [facility] [place] [facility] [address] [id number] [place] [address] Oct, [facility] [place] [facility] [address] [id number] [address] Oct, [facility] [place] [facility] [address] [id number], [place] [address] Oct, [facility] [place] [facility] [address] [id number] [place] [address] Oct, [facility] [place] [facility] [address] [id number], [place] [address] 17 Oct, 2013 [facility] [place] [facility] [address] [id number] [address] 16 Oct, 2013 [facility] [place] [facility] [address] [id number], [place] [address] 16 Oct, 2013 [facility] [place] [facility] [address] [id number] [place] [address] Oct, [facility] [place] [facility] [address] [id number] [place] [address] Oct, [facility] [place] [facility] [address] [id number] [place] [address] Oct, [facility] [place] [facility] [address] [id number] [place] [address] Oct, [facility] [place] [facility] [address] [id number] [place] [address] Oct, [facility] [place] [facility] [address] [id number] [place] [address] Oct, [facility] [place] [facility] [address] [id number] [place] [address] Oct, [facility] [place] [facility] [address] [id number] [place] [address] Oct, [facility] [place] [facility] [address] [id number] [place] [address] Oct, [facility] [place] [facility] [address] [id number] [place] [address] Oct, [facility] [place] [facility] [address] [id number] [place] [address] Oct, [facility] [place] [facility] [address] [id number] [place] [address] Oct, [facility] [place] [facility] [address] [id number] [place] [address] September, [facility] [place] [facility] [address] [id number] [place] [address] September, [facility] [place] [facility] [address] [id number] [place] [address] September, [facility] [place] [facility] [address] [id number] [place] [address] September, [facility] [place] [facility] [address] [id number] [place] [address] September, [facility] [place] [facility] [address] [id number] [place] [address] September, [facility] [place] [facility] [address] [id number] [place] [address] September, [facility] [place] [facility] [address] [id number] [place] [address] September, [facility] [place] [facility] [address] [id number] [place] [address] September, [facility] [place] [facility] [address] [id number] [place] [address] September, [facility] [place] [facility] [address] [id number] [place] [address] September, [facility] [place] [facility] [address] [id number] [place] [address] September, [facility] [place] [facility] [address] [id number] [place] [address] September, [facility] [place] [facility] [address] [id number] [place] [address] September, [facility] [place] [facility] [address] [id number] [place] [address] September, [facility] [place] [facility] [address] [id number] [place] [address] September, [facility] [place] [facility] [address] [id number] [place] [address] September, [facility] [place] [facility] [address] [id number] [place] [address] September, [facility] [place] [facility] [address] [id number] [place] [address] Aug, [facility] [place] [facility] [address] [id number] [place] [address] Aug, [facility] [place] [facility] [address] [id number] [place] [address] Aug, [facility] [place] [facility] [address] [id number] [place] [address] Aug, [facility] [place] [facility] [address] [id number] [place] [address] Aug, [facility] [place] [facility] [address] [id number] [place] [address] Aug, [facility] [place] [facility] [address] [id number] [place] [address] Jul, [facility] [place] [facility] [address] [id number] [place] [address] Jul, [facility] [place] [facility] [address] [id number] [place] [address] Jul, [facility] [place] [facility] [address] [id number] [place] [address] Jul, [facility] [place] [facility] [address] [id number] [place] [address] Jun, [facility] [place] [facility] [address] [id number] [place] [address] Jun, [facility] [place] [facility] [address] [id number] [place] [address] Jun, [facility] [place] [facility] [address] [id number] [place] [address] Jun, [facility] [place] [facility] [address] [id number] [place] [address] Mar, [facility] [place] [facility] [address] [id number] [place] [address] Mar, [facility] [place] [facility] [address] [id number] [place] [address] Mar, [facility] [address] [id number] [place] [address] Mar, [facility] [place] [facility] [address] [id number] [place] [address] Feb, [facility] [address] [id number] [place] [address] Feb, [facility] [place] [facility] [address] [id number] [place] [address] Feb, [facility] [address] [id number] [place] [address] Jan, [facility] [address] [id number] [place] [address] Jan, [facility] [place] [facility] [address] [id number] [place] [address] Jan, [facility] [address] [id number] [place] [address] Jan, [facility] [address] [id number] [place] [address] Dec, [facility] [address] [id number] [place] [address] Dec, [facility] [place] [facility] [address] [id number] [place] [address] Dec, [facility] [place] [facility] [address] [id number] [place] [address] Dec, [facility] [place] [facility] [address] [id number] [place] [address] Nov, [facility] [place] [facility] [address] [id number] [place] [address] Nov, [facility] [place] [facility] [address] [id number] [place] [address] Nov, [facility] [place] [facility] [address] [id number] [place] [address] Nov, [facility] [place] [facility] [address] [id number] [place] [address] Nov, [facility] [place] [facility] [address] [id number] [place] [address] Nov, [facility] [place] [facility] [address] [id number] [place] [address] Oct, [facility] [place] [facility] [address] [id number] [place] [address] Oct, [facility] [place] [facility] [address] [id number] [place] [address] Oct, [facility] [place] [facility] [address] [id number] [place] [address] Oct, [facility] [place] [facility] [address] [id number] [place] [address] Oct, [facility] [place] [facility] [address] [id number] [place] [address] 16 Oct, 2012 [facility] [place] [facility] [address] [id number] [place] [address] Oct, [facility] [place] [facility] [address] [id number] [place] [address] Oct, [facility] [place] [facility] [address] [id number], [place] [address] Oct, [facility] [place] [facility] [address] [id number] [place] [address] Oct, [facility] [place] [facility] [address] [id number] [place] [address] September, [facility] [place] [facility] [address] [id number] [place] [address] September, [facility] [place] [facility] [address] [id number], [place] [address] September, [facility] [address] [id number] [place] [address] Aug, [facility] [address] [id number] [place] [address] Aug, [facility] [address] [id number] [place] [address] Aug, [facility] [address] [id number] [place] [address] Aug, [facility] [address] [id number] [place] [address] Jul, [facility] [address] [id number] [place] [address] Jul, [facility] [address] [id number] [place] [address] Jul, [facility] [address] [id number] [place] [address] Jul, [facility] [address] [id number] [place] [address] Jul, [facility] [address] [facility] [id number] [place] [address] Jul, [facility] [address] [id number] [place] [address] May, [facility] [address] [id number] [place] [address] May, [facility] [place] [facility] [address] [id number] [place] [address] May, [facility] [place] [facility] [address] [id number] [place] [address] May, [facility] [address] [id number] [place] [address] May, [facility] [place] [facility] [address] [id number] [place] [address] 22 May, 2012 [facility] [place] [facility] [address] [id number] [place] [address] May, [facility] [place] [facility] [address] [id number] [place] [address] 18 May, 2012 [facility] [place] [facility] [address] [id number] [place] [address] 17 May, 2012 [facility] [place] [facility] [address] [id number] [place] [address] 17 May, 2012 [facility] [place] [facility] [address] [id number] [place] [address] 16 May, 2012 [facility] [place] [facility] [address] [id number] [place] [address] Apr, [facility] [place] [facility] [address] [id number] [place] [address] Apr, [facility] [place] [facility] [address] [id number] [place] [address] Apr, [facility] [place] [facility] [address] [id number] [place] [address] Apr, [facility] [place] [facility] [address] [id number] [place] [address] Apr, [facility] [place] [facility] [address] [id number] [place] [address] Apr, [facility] [place] [facility] [address] [id number] [place] [address] Mar, [facility] [place] [facility] [address] [id number] [place] [address] Mar, [facility] [place] [facility] [address] [id number] [place] [address] Mar, [facility] [place] [facility] [address] [id number] [place] [address] Mar, [facility] [place] [facility] [address] [id number] [place] [address] Mar, [facility] [place] [facility] [address] [id number] [place] [address] Mar, [facility] [place] [facility] [address] [facility] [id number] [place] [address] Mar, [facility] [place] [facility] [address] [id number] [place] [address] Mar, [facility] [place] [facility] [address] [id number] [place] [address] Feb, [facility] [place] [facility] [address] [id number] [place] [address] Feb, [facility] [place] [facility] [address] [id number] [place] [address] 16 Feb, 2012 [facility] [place] [facility] [address] [id number], [place] [address] 15 Feb, 2012 [facility] [place] [facility] [address] [id number], [place] [address] 15 Feb, 2012 [facility] [place] [facility] [address] [facility] [id number], [place] [address] 13 Feb, 2012 [facility] [place] [facility] [address] [id number], [place] [address] Feb, [facility] [place] [facility] [address] [id number], [place] [address] Feb, [facility] [place] [facility] [address] [id number], [place] [address] Feb, [facility] [place] [facility] [address] [id number], [place] [address] Feb, [facility] [place] [facility] [address] [facility] [id number], [place] [address] Feb, [facility] [place] [facility] [address] [id number] [place] [address] 11 Feb, 2012 [facility] [place] [facility] [address] [id number] [place] [address] Feb, [facility] [place] [facility] [address] [id number] [place] [address] Feb, [facility] [place] [facility] [address] [id number] [place] [address] Feb, [facility] [place] [facility] [address] [id number] [place] [address] Feb, [facility] [place] [facility] [address] [id number] [place] [address] Feb, [facility] [place] [facility] [address] [id number] [place] [address] Feb, [facility] [place] [facility] [address] [id number] [place] [address] 19 Jan, 2012 [facility] [place] [facility] [address] [id number] [place] [address] 13 Jan, 2012 [facility] [place] [facility] [address] [id number] [place] [address] 11 Jan, 2012 [facility] [place] [facility] [address] [id number] [place] [address] 10 Jan, 2012 [facility] [place] [facility] [address] [id number] [place] [address] 05 Jan, 2012 [facility] [place] [facility] [address] [id number] [place] [address] Dec, [facility] [place] [facility] [address] [id number] [place] [address] Dec, [facility] [place] [facility] [address] [id number] [place] [address] Dec, [facility] [place] [facility] [address] [id number] [place] [address] Dec, [facility] [place] [facility] [address] [id number] [place] [address] Dec, [facility] [place] [facility] [address] [id number] [place] [address] Dec, [facility] [place] [facility] [address] [id number] [place] [address] Nov, [facility] [place] [facility] [address] [id number] [place] [address] Nov, [facility] [address] [id number] [place] [address] Nov, [facility] [place] [facility] [address] [id number] [place] [address] Nov, [facility] [address] [id number] [place] [address] Nov, [facility] [address] [id number] [place] [address] Oct, [facility] [place] [facility] [address] [id number] [place] [address] Oct, [facility] [place] [facility] [address] [id number] [place] [address] Oct, [facility] [place] [facility] [address] [id number] [place] [address] September, [facility] [place] [facility] [address] [id number] [place] [address] September, [facility] [place] [facility] [address] [id number] [place] [address] September, [facility] [place] [facility] [address] [id number] [place] [address] September, [facility] [place] [facility] [address] [id number] [place] [address] September, [facility] [place] [facility] [address] [id number] [place] [address] September, [facility] [address] [id number] [place] [address] Aug, [facility] [address] [id number] [place] [address] Aug, [facility] [address] [id number] [place] [address] Aug, [facility] [address] [id number] [place] [address] Jun, [facility] [address] [id number] [place] [address] Jun, [facility] [address] [id number] [place] [address] Jun, [facility] [address] [id number] [place] [address] Jun, [facility] [address] [id number] [place] [address] May, [facility] [address] [id number] [place] [address] May, [facility] [address] [id number] [place] [address] May, [facility] [address] [id number] [place] [address] May, [facility] [place] [facility] [address] [id number] [place] [address] May, [facility] [place] [facility] [address] [id number] [place] [address] Apr, [facility] [place] [facility] [address] [id number] [place] [address] Apr, [facility] [place] [facility] [address] [facility] [id number] [place] [address] Apr, [facility] [place] [facility] [address] [id number] [place] [address] 19 Apr, 2011 [facility] [place] [facility] [address] [id number] [place] [address] 19 Apr, 2011 [facility] [place] [facility] [address] [id number] [place] [address] 16 Apr, 2011 [facility] [place] [facility] [address] [id number] [place] [address] 16 Apr, 2011 [facility] [place] [facility] [address] [id number] [place] [address] Mar, [facility] [place] [facility] [address] [id number] [place] [address] Mar, [facility] [place] [facility] [address] [id number] [place] [address] Mar, [facility] [place] [facility] [address] [id number] [place] [address] Feb, [facility] [place] [facility] [address] [id number] [place] [address] 24 Feb, 2011 [facility] [place] [facility] [address] [id number] [place] [address] Feb, [facility] [place] [facility] [address] [id number] [place] [address] Feb, [facility] [place] [facility] [address] [id number] [place] [address] 18 Feb, 2011 [facility] [place] [facility] [address] [id number] [place] [address] 17 Feb, 2011 [facility] [place] [facility] [address] [id number] [place] [address] 13 Jan, 2011 [facility] [place] [facility] [address] [id number] [place] [address] Jan, [facility] [place] [facility] [address] [id number] [place] [address] September, [facility] [address] [id number] [place] [address] Jun, [facility] [place] [facility] [address] [id number] [place] [address] Apr, [facility] [place] [facility] [address] [facility] [id number] [place] [address] Apr, [facility] [place] [facility] [address] [id number] [place] [address] Apr, [facility] [address] [id number] [place] [address] Apr, [facility] [place] [facility] [address] [id number] [place] [address] Apr, [facility] [place] [facility] [address] [facility] [id number] [place] [address] Mar, [facility] [place] [facility] [address] [id number], [place] [address] Mar, [facility] [address] [id number], [place] [address] Mar, [facility] [place] [facility] [address] [facility] [id number], [place] [address] Mar, [facility] [place] [facility] [address] [facility] [id number], [place] [address] Feb, [facility] [place] [facility] [address] [id number], [place] [address] 15 Jan, 2010 [facility] [place] [facility] [address] [id number], [place] [address] Mar, [facility] [place] [facility] [address] [facility] [id number], [place] [address] 15 Jan, 2009 [facility] [place] [facility] [address] [facility] [id number], [place] [address] Oct, [facility] [place] [facility] [address] [facility] [id number] [place] [address] Apr, IMMUNIZATIONS No Known Immunizations SOCIAL HISTORY Never Assessed REASON FOR VISIT EMR-[facility] [place] PLAN OF CARE [...]
--- OUTSIDE RECORDS SUMMARY | 2018-09-28 04:03 | XMS REPORT ---
Author Author Migration, Doctor Organization [facility] Address Unknown Phone Unavailable Care Team Providers Care Decorating Machine Tender Name Role Phone Migration, Doctor Unavailable Unavailable PROBLEMS Type Condition ICD9-CM Code ZMX09-UD Code Onset Dates Condition Status SNOMED Code Problem Essential hypertension I10 Active 87586447 Problem Bilateral low back pain without sciatica M54.5 Active 009056545 Problem Anxiety F41.9 Active 53467935 Problem Dysuria R30.0 Active 38547807 Problem Irritable bowel syndrome without diarrhea K58.9 Active 36228515 Problem Rhinosinusitis J32.9 Active 258749408 Problem Hypertriglyceridemia E78.1 Active 468142320 Problem Pre-diabetes R73.03 Active 293377009 Problem Alternating constipation and diarrhea R19.8 Active 048980060 Problem Body mass index (BMI) of 40.0-44.9 in adult Z68.41 Active 511118855 Problem Morbid (severe) obesity due to excess calories E66.01 Active 639481493 ALLERGIES No Information ENCOUNTERS Encounter Location Date Diagnosis [place] [id number] [place] [address] Aug, Rhinosinusitis J32.9 ; Bronchitis J40 and Folliculitis L73.9 [place] [id number] [place] [address] Jul, [place] [address] [address] Jul, [place] [address] [address] Jun, [place] [address] [address] Jun, Acute vaginitis N76.0 ; Dermatitis L30.9 ; BMI 40.0-44.9, adult Z68.41 and Morbid obesity E66.01 [facility] [address] [address] Jun, Vaginal discharge N89.8 ; Urinary tract infection without hematuria, site unspecified N39.0 and BMI 40.0-44.9, adult Z68.41 [facility] [id number] [place] [address] May, [place] [id number] [place] [address] May, [place] [id number] [place] [address] Apr, Urinary tract infection, site not specified N39.0 [place] [id number] [place] [address] Apr, Dysuria R30.0 ; Urinary tract infection, site not specified N39.0 and Hematuria, unspecified R31.9 [place] [id number] [place] [address] Mar, [place] [id number] [place] [address] Mar, Left anterior knee pain M25.562 ; Abscess of buttock, left L02.31 and BMI 40.0-44.9, adult Z68.41 [place] [id number] [place] [address] Mar, [facility] [id number] [place] [address] Feb, Abrasion of right ear canal, initial encounter S00.411A ; Left wrist pain M25.532 ; Right acute serous otitis media, recurrence not specified H65.01 and BMI 40.0-44.9, adult Z68.41 [place] [id number] [place] [address] Jan, [facility] [id number] [place] [address] Jan, [facility] [place] [address] [place] [address] Jan, BMI 40.0-44.9, adult Z68.41 ; Pre-diabetes R73.03 ; Essential hypertension I10 ; Morbid (severe) obesity due to excess calories E66.01 ; Bilateral low back pain without sciatica M54.5 and Heartburn R12 [facility] [place] [id number] [place] [address] Jan, History of UTI Z87.440 ; Well woman exam with routine gynecological exam Z01.419 ; Screening for breast cancer Z12.31 ; Candidal vaginitis B37.3 and BMI 40.0-44.9, adult Z68.41 [facility] [place] [id number] [place] [address] Jan, [facility] [id number] [place] [address] Jan, Dysuria R30.0 ; Acute cystitis with hematuria N30.01 ; Yeast infection B37.9 and BMI 40.0-44.9, adult Z68.41 [facility] [place] [id number] [place] [address] Dec, [facility] [place] [address] [address] Dec, [facility] [place] [id number] [place] [address] Nov, History of UTI Z87.440 [facility] [id number] [place] [address] Nov, UTI symptoms R39.9 ; Acute nasopharyngitis J00 and BMI 40.0-44.9, adult Z68.41 [facility] [address] [place] [address] Nov, [place] [id number] [place] [address] Nov, Yeast infection involving the vagina and surrounding area B37.3 [facility] [id number] [place] [address] Nov, Yeast infection involving the vagina and surrounding area B37.3 [facility] [id number] [place] [address] Nov, Yeast infection involving the vagina and surrounding area B37.3 ; Body mass index (BMI) of 40.0-44.9 in adult Z68.41 and Morbid (severe) obesity due to excess calories E66.01 [place] [id number] [place] [address] Oct, Abscess of groin, left L02.214 and Pre-diabetes R73.03 [facility] [id number] [place] [address] September, Pre-diabetes R73.03 [facility] [id number] [place] [address] Aug, [facility] [id number] [place] [address] Jul, Bilateral low back pain without sciatica M54.5 [facility] [id number] [place] [address] Jun, [facility] [id number] [place] [address] Jun, [facility] [address] [place] [address] Jun, [facility] [id number] [place] [address] May, [facility] [address] [place] [address] May, Ingrown left greater toenail L60.0 [facility] [id number] [place] [address] May, [facility] [address] [address] May, Influenza A J10.1 ; Fever R50.9 and Body aches R52 [place] [address] [address] Apr, [facility] [address] [address] Apr, [place] [address] [address] Apr, [place] [address] [address] Apr, Abscess L02.91 and Obesity (BMI 30-39.9) E66.9 [place] [address] [address] Apr, [place] [address] [address] Apr, [place] [address] [address] Mar, Acute non-recurrent maxillary sinusitis J01.[address] [address] 12 Feb, 2017 Heartburn R12 [place] [address] [address] 11 Feb, 2017 Heartburn R12 ; Low back pain M54.5 ; Essential hypertension I10 ; Bilateral low back pain without sciatica M54.5 ; Anxiety F41.9 ; Pre-diabetes R73.03 ; Other obesity due to excess calories E66.09 ; Alternating constipation and diarrhea R19.8 ; Dyspepsia R10.13 ; Generalized abdominal pain R10.84 ; Rhinosinusitis J32.9 and Boil L02.[address] [id number] [address] Jan, Heartburn R12 [place] [id number] [place] [address] Jan, [facility] [id number] [place] [address] Jan, [facility] [place] [id number] [place] [address] Jan, Acute seasonal allergic rhinitis due to pollen J30.1 and Irritable bowel syndrome without diarrhea K58.9 [place] [id number] [place] [address] Dec, Low back pain M54.5 and Acute cystitis with hematuria N30.01 [facility] [place] [id number] [place] [address] Dec, Low back pain M54.5 and Acute cystitis with hematuria N30.01 [place] [place] [id number] [place] [address] Dec, Heartburn R12 ; Essential hypertension I10 ; Acute non-recurrent maxillary sinusitis J01.00 ; Bilateral low back pain without sciatica M54.5 ; Anxiety F41.9 ; Pre-diabetes R73.03 ; Pain in right foot M79.671 ; Pain in left foot M79.672 ; Other obesity due to excess calories E66.09 and Acute cystitis with hematuria N30.01 [place] [address] [place] [address] Dec, Bilateral low back pain without sciatica M54.5 ; Acute non-recurrent maxillary sinusitis J01.00 and Pre-diabetes R73.03 [place] [address] [place] [address] Oct, [facility] [id number] [place] [address] Aug, [facility] [id number] [place] [address] Aug, Acute vaginitis N76.0 ; Urinary frequency R35.0 ; Screen for STD (sexually transmitted disease) Z11.3 and Abscess L02.91 [place] [id number] [place] [address] Aug, Plantar wart of right foot B07.0 [place] [address] [address] Jul, Plantar wart of right foot B07.0 [place] [address] [address] Jun, [place] [address] [address] Jun, Heartburn R12 ; Essential hypertension I10 ; Anxiety F41.9 ; Folliculitis L73.9 and Plantar wart of right foot B07.0 [place] [id number] [place] [address] Jun, [facility] [address] [address] May, Low back pain M54.5 and Other chronic pain G89.29 [place] [address] [address] May, [place] [id number] [place] [address] May, [place] [address] [address] May, Heartburn R12 ; Bilateral low back pain without sciatica M54.5 ; Essential hypertension I10 ; Long-term use of high-risk medication Z79.899 ; Anxiety F41.9 ; Impacted cerumen of right ear H61.21 ; Folliculitis L73.9 ; High risk bisexual behavior Z72.53 and General medical exam Z00.00 [facility] [id number] [place] [address] May, [facility] [id number] [place] [address] May, [facility] [id number] [place] [address] Mar, Acute nasopharyngitis J00 ; Acute intractable tension-type headache G44.201 and Cough R05 [facility] [id number] [place] [address] Jan, [facility] [address] [address] Jan, Abscess L02.91 [facility] [id number] [place] [address] Jan, Urinary urgency R39.15 and Urinary tract infection without hematuria, site unspecified N39.0 [facility] [id number] [place] [address] Jan, [facility] [id number] [place] [address] Jan, [facility] [id number] [place] [address] Dec, [place] [id number] [place] [address] Dec, Dermatofibroma D23.9 [facility] [id number] [place] [address] September, [place] [id number] [place] [address] Aug, [place] [id number] [place] [address] Aug, Pain in left knee M25.562 ; Heartburn R12 ; Bilateral low back pain without sciatica M54.5 ; Essential hypertension I10 ; Ingrown left big toenail L60.0 ; Chronic pain G89.29 ; Irritable bowel syndrome with constipation K58.9 and Skin infection L08.9 [facility] [id number] [place] [address] Aug, [facility] [id number] [place] [address] Jul, [facility] [address] [address] Jun, [facility] [address] [address] Jun, [facility] [id number] [place] [address] Jun, [facility] [id number] [place] [address] Jun, [facility] [id number] [place] [address] Jun, Upper respiratory infection J06.9 ; Bilateral low back pain without sciatica M54.5 and Headache R51 [facility] [id number] [place] [address] May, [facility] [id number] [place] [address] Apr, Bilateral low back pain without sciatica M54.5 ; Upper respiratory infection J06.9 and Yeast dermatitis B37.2 [facility] [id number] [place] [address] Apr, [facility] [address] [address] Apr, [facility] [id number] [place] [address] Feb, [facility] [address] [address] Feb, [facility] [id number] [place] [address] Feb, [facility] [id number] [place] [address] Feb, Essential hypertension I10 ; Heartburn R12 ; Irritable bowel syndrome without diarrhea K58.9 ; Bilateral low back pain, with sciatica presence unspecified M54.5 and Upper respiratory infection J06.9 [facility] [id number] [place] [address] Feb, [place] [address] [address] Feb, Generalized anxiety disorder F41.1 and Grief F43.20 [place] [id number] [place] [address] Jan, [place] [address] [address] Jan, Back pain 724.5 ; Upper respiratory infection 465.9 ; HTN (hypertension) 401.9 and Dyspepsia 536.8 [place] [address] [place] [address] Dec, [place] [address] [place] [address] Nov, Back pain 724.5 ; Abdominal pain, bilateral lower quadrant 789.03 ; GERD (gastroesophageal reflux disease) 530.81 ; Upper respiratory infection 465.9 ; Dysuria 788.1 and HTN (hypertension) 401.9 [facility] [id number] [place] [address] Nov, [facility] [id number] [place] [address] Nov, [facility] [id number] [place] [address] Nov, [facility] [address] [address] Nov, Cough 786.2 [facility] [id number] [place] [address] Nov, Cough 786.2 [facility] [id number] [place] [address] Oct, Unspecified episodic mood disorder 296.90 and Anxiety disorder, unspecified 300.00 [facility] [id number] [place] [address] Oct, Abdominal pain, left upper quadrant 789.02 ; Essential hypertension, benign 401.1 ; Irritable bowel syndrome 564.1 ; Abscess 682.9 ; Heartburn 787.1 ; Acute sinusitis, unspecified 461.9 ; Muscle spasm of back 724.8 ; Cough 786.2 and Skin tag 701.9 [facility] [id number] [place] [address] September, [facility] [id number] [place] [address] September, [facility] [id number] [place] [address] September, [facility] [id number] [place] [address] Aug, [facility] [id number] [place] [address] Aug, [facility] [address] [address] Jul, [facility] [id number] [place] [address] Jul, [facility] [id number] [place] [address] Jul, [facility] [id number] [place] [address] Jul, [facility] [place] [facility] [address] [id number] [place] [address] Jul, [facility] [place] [facility] [address] [id number] [place] [address] Jul, [facility] [place] [facility] [address] [id number] [place] [address] Jul, [facility] [place] [facility] [address] [id number] [place] [address] Jul, [facility] [place] [facility] [address] [id number] [place] [address] Jul, [facility] [place] [facility] [address] [id number] [place] [address] Jul, [facility] [place] [facility] [address] [id number] [place] [address] Jul, [facility] [place] [facility] [address] [id number] [place] [address] Jul, [facility] [place] [facility] [address] [id number] [place] [address] Jul, [facility] [place] [facility] [address] [id number] [place] [address] Jul, [facility] [place] [facility] [address] [id number] [place] [address] Jul, [facility] [place] [facility] [address] [id number] [place] [address] Jul, [facility] [place] [facility] [address] [id number] [place] [address] Jul, [facility] [place] [facility] [address] [id number] [place] [address] Jun, [facility] [place] [facility] [address] [id number] [place] [address] Jun, [facility] [place] [facility] [address] [id number] [place] [address] Jun, 2014 [facility] [place] [facility] [address] [id number] [place] [address] Jun, 2014 [facility] [place] [facility] [address] [id number] [place] [address] Jun, 2014 [facility] [place] [facility] [address] [id number] [place] [address] Jun, 2014 [facility] [place] [facility] [address] [id number] [place] [address] Jun, 2014 [facility] [place] [facility] [address] [id number] [place] [address] Jun, 2014 [facility] [place] [facility] [address] [id number] [place] [address] Apr, [facility] [place] [facility] [address] [id number] [place] [address] 29 Apr, 2014 [facility] [place] [facility] [address] [id number] [place] [address] Apr, [facility] [place] [facility] [address] [id number] [place] [address] Apr, [facility] [place] [facility] [address] [id number] [place] [address] 18 Apr, 2014 [facility] [place] [facility] [address] [id number] [place] [address] 18 Apr, 2014 [facility] [place] [facility] [address] [id number] [place] [address] 15 Apr, 2014 [facility] [place] [facility] [address] [id number] [place] [address] 15 Apr, 2014 [facility] [place] [facility] [address] [id number] [place] [address] 12 Apr, 2014 [facility] [place] [facility] [address] [id number] [place] [address] Apr, [facility] [place] [facility] [address] [id number] [place] [address] Apr, [facility] [place] [facility] [address] [id number] [place] [address] Apr, [facility] [place] [facility] [address] [id number] [place] [address] Apr, [facility] [place] [facility] [address] [id number] [place] [address] Apr, [facility] [place] [facility] [address] [id number] [place] [address] Apr, [facility] [place] [facility] [address] [id number] [place] [address] Feb, [facility] [place] [facility] [address] [id number] [place] [address] Feb, [facility] [place] [facility] [address] [id number] [place] [address] Feb, [facility] [place] [facility] [address] [id number] [place] [address] Feb, [facility] [place] [facility] [address] [id number] [place] [address] Feb, [facility] [place] [facility] [address] [id number] [place] [address] Feb, [facility] [place] [facility] [address] [id number] [address] Jan, [facility] [place] [facility] [address] [id number] [place] [address] Jan, [facility] [place] [facility] [address] [id number] [place] [address] Jan, [facility] [place] [facility] [address] [id number] [place] [address] 05 Jan, 2014 [facility] [place] [facility] [address] [id number] [place] [address] Jan, [facility] [place] [facility] [address] [id number] [place] [address] Jan, [facility] [place] [facility] [address] [id number] [place] [address] Dec, [facility] [place] [facility] [address] [id number] [place] [address] Dec, [facility] [place] [facility] [address] [id number] [place] [address] Dec, [facility] [place] [facility] [address] [id number] [place] [address] Dec, [facility] [place] [facility] [address] [id number] [place] [address] Nov, [facility] [place] [facility] [address] [id number] [place] [address] Nov, [facility] [place] [facility] [address] [id number] [place] [address] Nov, [facility] [place] [facility] [address] [id number] [place] [address] Nov, [facility] [place] [facility] [address] [id number] [place] [address] Nov, [facility] [place] [facility] [address] [id number] [place] [address] Nov, [facility] [place] [facility] [address] [id number] [place] [address] Nov, [facility] [place] [facility] [address] [id number] [place] [address] Nov, [facility] [place] [facility] [address] [id number] [place] [address] Oct, [facility] [place] [facility] [address] [id number] [place] [address] Oct, [facility] [place] [facility] [address] [id number] [place] [address] Oct, [facility] [place] [facility] [address] [id number] [place] [address] Oct, [facility] [place] [facility] [address] [id number] [place] [address] Oct, [facility] [place] [facility] [address] [id number] [place] [address] Oct, [facility] [place] [facility] [address] [id number] [place] [address] Oct, [facility] [place] [facility] [address] [id number] [place] [address] Oct, [facility] [place] [facility] [address] [id number] [place] [address] Oct, [facility] [place] [facility] [address] [id number] [place] [address] Oct, [facility] [place] [facility] [address] [id number] [place] [address] Oct, [facility] [place] [facility] [address] [id number] [place] [address] Oct, [facility] [place] [facility] [address] [id number] [address] Oct, [facility] [place] [facility] [address] [id number] [place] [address] Oct, [facility] [place] [facility] [address] [id number] [place] [address] Oct, [facility] [place] [facility] [address] [id number] [place] [address] 17 Oct, 2013 [facility] [place] [facility] [address] [id number] [place] [address] 16 Oct, 2013 [facility] [place] [facility] [address] [id number] [place] [address] 16 Oct, 2013 [facility] [place] [facility] [address] [id number] [place] [address] Oct, [facility] [place] [facility] [address] [id number] [place] [address] Oct, [facility] [place] [facility] [address] [id number] [place] [address] Oct, [facility] [place] [facility] [address] [id number] [place] [address] Oct, [facility] [place] [facility] [address] [id number] [place] [address] Oct, [facility] [place] [facility] [address] [id number] [place] [address] Oct, [facility] [place] [facility] [address] [id number] [place] [address] Oct, [facility] [place] [facility] [address] [id number] [place] [address] Oct, [facility] [place] [facility] [address] [id number] [place] [address] Oct, [facility] [place] [facility] [address] [id number] [place] [address] Oct, [facility] [place] [facility] [address] [id number] [place] [address] Oct, [facility] [place] [facility] [address] [id number] [place] [address] Oct, [facility] [place] [facility] [address] [id number] [place] [address] September, [facility] [place] [facility] [address] [id number] [place] [address] September, [facility] [place] [facility] [address] [id number] [place] [address] September, [facility] [place] [facility] [address] [id number] [place] [address] September, [facility] [place] [facility] [address] [id number] [place] [address] September, [facility] [place] [facility] [address] [id number] [place] [address] September, [facility] [place] [facility] [address] [id number] [place] [address] September, [facility] [place] [facility] [address] [id number] [place] [address] September, [facility] [place] [facility] [address] [id number] [place] [address] September, [facility] [place] [facility] [address] [id number] [place] [address] September, [facility] [place] [facility] [address] [id number] [place] [address] September, [facility] [place] [facility] [address] [id number] [place] [address] September, [facility] [place] [facility] [address] [id number] [place] [address] September, [facility] [place] [facility] [address] [id number] [place] [address] September, [facility] [place] [facility] [address] [id number] [place] [address] September, [facility] [place] [facility] [address] [id number] [place] [address] September, [facility] [place] [facility] [address] [id number] [place] [address] September, [facility] [place] [facility] [address] [id number] [place] [address] September, [facility] [place] [facility] [address] [id number] [place] [address] Aug, [facility] [place] [facility] [address] [id number] [place] [address] Aug, [facility] [place] [facility] [address] [id number] [place] [address] Aug, [facility] [place] [facility] [address] [id number] [place] [address] Aug, [facility] [place] [facility] [address] [id number] [place] [address] Aug, [facility] [place] [facility] [address] [id number] [place] [address] Aug, [facility] [place] [facility] [address] [id number] [place] [address] Jul, [facility] [place] [facility] [address] [id number] [place] [address] Jul, [facility] [place] [facility] [address] [id number] [place] [address] Jul, [facility] [place] [facility] [address] [id number] [place] [address] Jul, [facility] [place] [facility] [address] [id number] [place] [address] Jun, [facility] [place] [facility] [address] [id number] [place] [address] Jun, [facility] [place] [facility] [address] [id number] [place] [address] Jun, [facility] [place] [facility] [address] [id number] [place] [address] Jun, [facility] [place] [facility] [address] [id number] [place] [address] Mar, [facility] [place] [facility] [address] [id number] [place] [address] Mar, [facility] [place] [facility] [address] [id number] [place] [address] Mar, [facility] [address] [id number] [place] [address] Mar, [facility] [place] [facility] [address] [id number] [place] [address] Feb, [facility] [address] [id number] [place] [address] Feb, [facility] [place] [facility] [address] [id number] [place] [address] Feb, [facility] [address] [id number] [place] [address] Jan, [facility] [address] [id number] [place] [address] Jan, [facility] [place] [facility] [address] [id number] [place] [address] Jan, [facility] [address] [id number] [place] [address] Jan, [facility] [address] [id number] [place] [address] Dec, [facility] [address] [id number] [place] [address] Dec, [facility] [place] [facility] [address] [id number] [place] [address] Dec, [facility] [place] [facility] [address] [id number] [place] [address] Dec, [facility] [place] [facility] [address] [id number] [place] [address] Nov, [facility] [place] [facility] [address] [id number] [place] [address] Nov, [facility] [place] [facility] [address] [id number] [place] [address] Nov, [facility] [place] [facility] [address] [id number] [place] [address] Nov, [facility] [place] [facility] [address] [id number] [place] [address] Nov, [facility] [place] [facility] [address] [id number] [place] [address] Nov, [facility] [place] [facility] [address] [id number] [place] [address] Oct, [facility] [place] [facility] [address] [id number] [place] [address] Oct, [facility] [place] [facility] [address] [id number] [place] [address] Oct, [facility] [place] [facility] [address] [id number] [place] [address] Oct, [facility] [place] [facility] [address] [id number] [place] [address] Oct, [facility] [place] [facility] [address] [id number] [place] [address] 16 Oct, 2012 [facility] [place] [facility] [address] [id number] [place] [address] Oct, [facility] [place] [facility] [address] [id number] [place] [address] Oct, [facility] [place] [facility] [address] [id number] [place] [address] Oct, [facility] [place] [facility] [address] [id number] [place] [address] Oct, [facility] [place] [facility] [address] [id number] [place] [address] September, [facility] [place] [facility] [address] [id number] [place] [address] September, [facility] [place] [facility] [address] [id number] [place] [address] September, [facility] [address] [id number] [place] [address] Aug, [facility] [address] [id number] [place] [address] Aug, [facility] [address] [id number] [place] [address] Aug, [facility] [address] [id number] [place] [address] Aug, [facility] [address] [id number] [place] [address] Jul, [facility] [address] [id number] [place] [address] Jul, [facility] [address] [id number] [place] [address] Jul, [facility] [address] [id number] [place] [address] Jul, [facility] [address] [id number] [place] [address] Jul, [facility] [address] [facility] [id number] [place] [address] Jul, [facility] [address] [id number] [place] [address] May, [facility] [address] [id number] [place] [address] May, [facility] [place] [facility] [address] [id number] [place] [address] May, [facility] [place] [facility] [address] [id number] [place] [address] May, [facility] [address] [id number] [place] [address] May, [facility] [place] [facility] [address] [id number] [place] [address] 22 May, 2012 [facility] [place] [facility] [address] [id number] [place] [address] May, [facility] [place] [facility] [address] [id number] [place] [address] 18 May, 2012 [facility] [place] [facility] [address] [id number] [place] [address] 17 May, 2012 [facility] [place] [facility] [address] [id number] [place] [address] 17 May, 2012 [facility] [place] [facility] [address] [id number] [place] [address] 16 May, 2012 [facility] [place] [facility] [address] [id number] [place] [address] Apr, [facility] [place] [facility] [address] [id number] [place] [address] Apr, [facility] [place] [facility] [address] [id number] [place] [address] Apr, [facility] [place] [facility] [address] [id number] [place] [address] Apr, [facility] [place] [facility] [address] [id number] [place] [address] Apr, [facility] [place] [facility] [address] [id number] [place] [address] Apr, [facility] [place] [facility] [address] [id number] [place] [address] Mar, [facility] [place] [facility] [address] [id number] [place] [address] Mar, [facility] [place] [facility] [address] [id number] [place] [address] Mar, [facility] [place] [facility] [address] [id number] [place] [address] Mar, [facility] [place] [facility] [address] [id number] [place] [address] Mar, [facility] [place] [facility] [address] [id number] [place] [address] Mar, [facility] [place] [facility] [address] [facility] [id number] [place] [address] Mar, [facility] [place] [facility] [address] [id number] [place] [address] Mar, [facility] [place] [facility] [address] [id number] [place] [address] Feb, [facility] [place] [facility] [address] [id number] [place] [address] Feb, [facility] [place] [facility] [address] [id number] [place] [address] 16 Feb, 2012 [facility] [place] [facility] [address] [id number] [place] [address] 15 Feb, 2012 [facility] [place] [facility] [address] [id number] [place] [address] 15 Feb, 2012 [facility] [place] [facility] [address] [facility] [id number] [place] [address] 13 Feb, 2012 [facility] [place] [facility] [address] [id number] [place] [address] Feb, [facility] [place] [facility] [address] [id number] [place] [address] Feb, [facility] [place] [facility] [address] [id number] [place] [address] Feb, [facility] [place] [facility] [address] [id number] [place] [address] Feb, [facility] [place] [facility] [address] [facility] [id number] [place] [address] Feb, [facility] [place] [facility] [address] [id number] [place] [address] 11 Feb, 2012 [facility] [place] [facility] [address] [id number] [place] [address] Feb, [facility] [place] [facility] [address] [id number] [place] [address] Feb, [facility] [place] [facility] [address] [id number] [place] [address] Feb, [facility] [place] [facility] [address] [id number] [place] [address] Feb, [facility] [place] [facility] [address] [id number] [place] [address] Feb, [facility] [place] [facility] [address] [id number] [place] [address] Feb, [facility] [place] [facility] [address] [id number] [place] [address] 19 Jan, 2012 [facility] [place] [facility] [address] [id number] [place] [address] 13 Jan, 2012 [facility] [place] [facility] [address] [id number] [place] [address] 11 Jan, 2012 [facility] [place] [facility] [address] [id number] [place] [address] 10 Jan, 2012 [facility] [place] [facility] [address] [id number] [place] [address] 05 Jan, 2012 [facility] [place] [facility] [address] [id number] [place] [address] Dec, [facility] [place] [facility] [address] [id number] [place] [address] Dec, [facility] [place] [facility] [address] [id number] [place] [address] Dec, [facility] [place] [facility] [address] [id number] [place] [address] Dec, [facility] [place] [facility] [address] [id number] [place] [address] Dec, [facility] [place] [facility] [address] [id number] [place] [address] Dec, [facility] [place] [facility] [address] [id number] [place] [address] Nov, [facility] [place] [facility] [address] [id number] [place] [address] Nov, [facility] [address] [id number] [place] [address] Nov, [facility] [place] [facility] [address] [id number] [place] [address] Nov, [facility] [address] [id number] [place] [address] Nov, [facility] [address] [id number] [place] [address] Oct, [facility] [place] [facility] [address] [id number] [place] [address] Oct, [facility] [place] [facility] [address] [id number] [place] [address] Oct, [facility] [place] [facility] [address] [id number] [place] [address] September, [facility] [place] [facility] [address] [id number] [place] [address] September, [facility] [place] [facility] [address] [id number] [place] [address] September, [facility] [place] [facility] [address] [id number] [place] [address] September, [facility] [place] [facility] [address] [id number] [place] [address] September, [facility] [place] [facility] [address] [id number] [place] [address] September, [facility] [address] [id number] [place] [address] Aug, [facility] [address] [id number] [place] [address] Aug, [facility] [address] [id number] [place] [address] Aug, [facility] [address] [id number] [place] [address] Jun, [facility] [address] [id number] [place] [address] Jun, [facility] [address] [id number] [place] [address] Jun, [facility] [address] [id number] [place] [address] Jun, [facility] [address] [id number] [place] [address] May, [facility] [address] [id number] [place] [address] May, [facility] [address] [id number] [place] [address] May, [facility] [address] [id number] [place] [address] May, [facility] [place] [facility] [address] [id number] [place] [address] May, [facility] [place] [facility] [address] [id number] [place] [address] Apr, [facility] [place] [facility] [address] [id number] [place] [address] Apr, [facility] [place] [facility] [address] [facility] [id number] [place] [address] Apr, [facility] [place] [facility] [address] [id number] [place] [address] 19 Apr, 2011 [facility] [place] [facility] [address] [id number] [place] [address] 19 Apr, 2011 [facility] [place] [facility] [address] [id number] [place] [address] 16 Apr, 2011 [facility] [place] [facility] [address] [id number] [place] [address] 16 Apr, 2011 [facility] [place] [facility] [address] [id number] [place] [address] Mar, [facility] [place] [facility] [address] [id number] [place] [address] Mar, [facility] [place] [facility] [address] [id number] [place] [address] Mar, [facility] [place] [facility] [address] [id number] [place] [address] Feb, [facility] [place] [facility] [address] [id number] [place] [address] 24 Feb, 2011 [facility] [place] [facility] [address] [id number] [place] [address] Feb, [facility] [place] [facility] [address] [id number] [place] [address] Feb, [facility] [place] [facility] [address] [id number] [place] [address] 18 Feb, 2011 [facility] [place] [facility] [address] [id number] [place] [address] 17 Feb, 2011 [facility] [place] [facility] [address] [id number] [place] [address] 13 Jan, 2011 [facility] [place] [facility] [address] [id number] [place] [address] Jan, [facility] [place] [facility] [address] [id number] [place] [address] September, [facility] [address] [id number] [place] [address] Jun, [facility] [place] [facility] [address] [id number] [place] [address] Apr, [facility] [place] [facility] [address] [facility] [id number] [place] [address] Apr, [facility] [place] [facility] [address] [id number] [place] [address] Apr, [facility] [address] [id number] [place] [address] Apr, [facility] [place] [facility] [address] [id number] [place] [address] Apr, [facility] [place] [facility] [address] [facility] [id number] [place] [address] Mar, [facility] [place] [facility] [address] [id number] [place] [address] Mar, [facility] [address] [id number] [place] [address] Mar, [facility] [place] [facility] [address] [facility] [id number] [place] [address] Mar, [facility] [place] [facility] [address] [facility] [id number] [place] [address] Feb, [facility] [place] [facility] [address] [id number] [place] [address] 15 Jan, 2010 [facility] [place] [facility] [address] [id number] [place] [address] Mar, [facility] [place] [facility] [address] [facility] [id number] [place] [address] 15 Jan, 2009 [facility] [place] [facility] [address] [facility] [id number] [place] [address] Oct, [facility] [place] [facility] [address] [facility] [id number] [place] [address] Apr, IMMUNIZATIONS No Known Immunizations SOCIAL HISTORY Never Assessed REASON FOR VISIT EMR-[facility] [place] PLAN OF CARE VITAL SIGNS MEDICATIONS No [...]
--- OUTSIDE RECORDS SUMMARY | 2018-09-28 04:04 | XMS REPORT ---
Author Author Migration, Doctor Organization [facility] Address Unknown Phone Unavailable Care Team Providers Care Chef Passenger Vessel Name Role Phone Migration, Doctor Unavailable Unavailable PROBLEMS Type Condition ICD9-CM Code PKS87-IO Code Onset Dates Condition Status SNOMED Code Problem Essential hypertension I10 Active 56619330 Problem Bilateral low back pain without sciatica M54.5 Active 786875918 Problem Anxiety F41.9 Active 05948173 Problem Dysuria R30.0 Active 55112843 Problem Irritable bowel syndrome without diarrhea K58.9 Active 68729162 Problem Rhinosinusitis J32.9 Active 183148907 Problem Hypertriglyceridemia E78.1 Active 993717865 Problem Pre-diabetes R73.03 Active 711580183 Problem Alternating constipation and diarrhea R19.8 Active 164825872 Problem Body mass index (BMI) of 40.0-44.9 in adult Z68.41 Active 788015027 Problem Morbid (severe) obesity due to excess calories E66.01 Active 306990691 ALLERGIES No Information ENCOUNTERS Encounter Location Date Diagnosis [facility] [id number] [place] [address] Aug, Rhinosinusitis J32.9 ; Bronchitis J40 and Folliculitis L73.9 [facility] [facility] [id number] [place] [address] Jul, [place] [address] [address] Jul, [place] [address] [address] Jun, [place] [address] [address] Jun, Acute vaginitis N76.0 ; Dermatitis L30.9 ; BMI 40.0-44.9, adult Z68.41 and Morbid obesity E66.01 [facility] [address], [place] [address] Jun, Vaginal discharge N89.8 ; Urinary tract infection without hematuria, site unspecified N39.0 and BMI 40.0-44.9, adult Z68.41 [facility] [id number] [place] [address] May, [place] [id number] [place] [address] May, [place] [id number] [place] [address] Apr, Urinary tract infection, site not specified N39.0 [place] [id number] [place] [address] Apr, Dysuria R30.0 ; Urinary tract infection, site not specified N39.0 and Hematuria, unspecified R31.9 [facility] [id number] [place] [address] Mar, [place] [id number] [place] [address] Mar, Left anterior knee pain M25.562 ; Abscess of buttock, left L02.31 and BMI 40.0-44.9, adult Z68.41 [facility] [id number] [place] [address] Mar, [facility] [address] [place] [address] Feb, Abrasion of right ear canal, initial encounter S00.411A ; Left wrist pain M25.532 ; Right acute serous otitis media, recurrence not specified H65.01 and BMI 40.0-44.9, adult Z68.41 [facility] [id number] [place] [address] Jan, [place] [id number] [place] [address] Jan, [place] [address] [place] [address] Jan, BMI 40.0-44.9, adult Z68.41 ; Pre-diabetes R73.03 ; Essential hypertension I10 ; Morbid (severe) obesity due to excess calories E66.01 ; Bilateral low back pain without sciatica M54.5 and Heartburn R12 [facility] [id number] [place] [address] Jan, History of UTI Z87.440 ; Well woman exam with routine gynecological exam Z01.419 ; Screening for breast cancer Z12.31 ; Candidal vaginitis B37.3 and BMI 40.0-44.9, adult Z68.41 [facility] [id number] [place] [address] Jan, [facility] [id number] [place] [address] Jan, Dysuria R30.0 ; Acute cystitis with hematuria N30.01 ; Yeast infection B37.9 and BMI 40.0-44.9, adult Z68.41 [facility] [address] [place] [address] Dec, [facility] [address], [place] [address] Dec, [facility] [id number] [place] [address] Nov, History of UTI Z87.440 [facility] [id number] [place] [address] Nov, UTI symptoms R39.9 ; Acute nasopharyngitis J00 and BMI 40.0-44.9, adult Z68.41 [facility] [address] [place] [address] Nov, [facility] [id number] [place] [address] Nov, Yeast infection involving the vagina and surrounding area B37.3 [facility] [id number] [place] [address] Nov, Yeast infection involving the vagina and surrounding area B37.3 [facility] [id number] [place] [address] Nov, Yeast infection involving the vagina and surrounding area B37.3 ; Body mass index (BMI) of 40.0-44.9 in adult Z68.41 and Morbid (severe) obesity due to excess calories E66.01 [place] [id number] [place] [address] Oct, Abscess of groin, left L02.214 and Pre-diabetes R73.03 [place] [id number] [place] [address] September, Pre-diabetes R73.03 [facility] [id number] [place] [address] Aug, [facility] [id number] [place] [address] Jul, Bilateral low back pain without sciatica M54.5 [facility] [id number] [place] [address] Jun, [facility] [id number] [place] [address] Jun, [facility] [id number] [place] [address] Jun, [facility] [id number] [place] [address] May, [facility] [id number] [place] [address] May, Ingrown left greater toenail L60.0 [facility] [id number] [place] [address] May, [facility] [address] [address] May, Influenza A J10.1 ; Fever R50.9 and Body aches R52 [place] [address] [address] Apr, [facility] [address] [address] Apr, [place] [address] [address] Apr, [place] [address] [address] Apr, Abscess L02.91 and Obesity (BMI 30-39.9) E66.9 [facility] [facility] [address] [address] Apr, [facility] [address] [address] Apr, [facility] [address] [address] Mar, Acute non-recurrent maxillary sinusitis J01.[address] [address] 12 Feb, 2017 Heartburn R12 [place] [address] [address] 11 Feb, 2017 Heartburn R12 ; Low back pain M54.5 ; Essential hypertension I10 ; Bilateral low back pain without sciatica M54.5 ; Anxiety F41.9 ; Pre-diabetes R73.03 ; Other obesity due to excess calories E66.09 ; Alternating constipation and diarrhea R19.8 ; Dyspepsia R10.13 ; Generalized abdominal pain R10.84 ; Rhinosinusitis J32.9 and Boil L02.[address] [id number] [address] Jan, Heartburn R12 [place] [id number] [place] [address] Jan, [facility] [id number] [place] [address] Jan, [place] [id number] [place] [address] Jan, Acute seasonal allergic rhinitis due to pollen J30.1 and Irritable bowel syndrome without diarrhea K58.9 [place] [id number] [place] [address] Dec, Low back pain M54.5 and Acute cystitis with hematuria N30.01 [facility] [facility] [id number] [place] [address] Dec, Low back pain M54.5 and Acute cystitis with hematuria N30.01 [facility] [id number] [place] [address] Dec, Heartburn R12 ; Essential hypertension I10 ; Acute non-recurrent maxillary sinusitis J01.00 ; Bilateral low back pain without sciatica M54.5 ; Anxiety F41.9 ; Pre-diabetes R73.03 ; Pain in right foot M79.671 ; Pain in left foot M79.672 ; Other obesity due to excess calories E66.09 and Acute cystitis with hematuria N30.01 [place] [address] [place] [address] Dec, Bilateral low back pain without sciatica M54.5 ; Acute non-recurrent maxillary sinusitis J01.00 and Pre-diabetes R73.03 [facility] [address] [place] [address] Oct, [facility] [id number] [place] [address] Aug, [facility] [id number] [place] [address] Aug, Acute vaginitis N76.0 ; Urinary frequency R35.0 ; Screen for STD (sexually transmitted disease) Z11.3 and Abscess L02.91 [place] [id number] [place] [address] Aug, Plantar wart of right foot B07.0 [place] [address] [address] Jul, Plantar wart of right foot B07.0 [place] [address] [address] Jun, [place] [address] [address] Jun, Heartburn R12 ; Essential hypertension I10 ; Anxiety F41.9 ; Folliculitis L73.9 and Plantar wart of right foot B07.0 [place] [id number] [place] [address] Jun, [facility] [address] [address] May, Low back pain M54.5 and Other chronic pain G89.29 [place] [address] [address] May, [place] [id number] [place] [address] May, [place] [address] [address] May, Heartburn R12 ; Bilateral low back pain without sciatica M54.5 ; Essential hypertension I10 ; Long-term use of high-risk medication Z79.899 ; Anxiety F41.9 ; Impacted cerumen of right ear H61.21 ; Folliculitis L73.9 ; High risk bisexual behavior Z72.53 and General medical exam Z00.00 [facility] [id number] [place] [address] May, [facility] [id number] [place] [address] May, [facility] [id number] [place] [address] Mar, Acute nasopharyngitis J00 ; Acute intractable tension-type headache G44.201 and Cough R05 [facility] [id number] [place] [address] Jan, [facility] [address] [address] Jan, Abscess L02.91 [facility] [id number] [place] [address] Jan, Urinary urgency R39.15 and Urinary tract infection without hematuria, site unspecified N39.0 [facility] [id number] [place] [address] Jan, [facility] [id number] [place] [address] Jan, [facility] [id number] [place] [address] Dec, [place] [id number] [place] [address] Dec, Dermatofibroma D23.9 [facility] [id number] [place] [address] September, [place] [id number] [place] [address] Aug, [place] [id number] [place] [address] Aug, Pain in left knee M25.562 ; Heartburn R12 ; Bilateral low back pain without sciatica M54.5 ; Essential hypertension I10 ; Ingrown left big toenail L60.0 ; Chronic pain G89.29 ; Irritable bowel syndrome with constipation K58.9 and Skin infection L08.9 [facility] [id number] [place] [address] Aug, [facility] [id number] [place] [address] Jul, [facility] [address] [address] Jun, [facility] [address] [address] Jun, [facility] [id number] [place] [address] Jun, [facility] [id number] [place] [address] Jun, [facility] [id number] [place] [address] Jun, Upper respiratory infection J06.9 ; Bilateral low back pain without sciatica M54.5 and Headache R51 [facility] [id number] [place] [address] May, [facility] [id number] [place] [address] Apr, Bilateral low back pain without sciatica M54.5 ; Upper respiratory infection J06.9 and Yeast dermatitis B37.2 [facility] [id number] [place] [address] Apr, [facility] [address] [address] Apr, [facility] [id number] [place] [address] Feb, [facility] [address] [address] Feb, [facility] [id number] [place] [address] Feb, [facility] [id number] [place] [address] Feb, Essential hypertension I10 ; Heartburn R12 ; Irritable bowel syndrome without diarrhea K58.9 ; Bilateral low back pain, with sciatica presence unspecified M54.5 and Upper respiratory infection J06.9 [facility] [id number] [place] [address] Feb, [place] [address] [address] Feb, Generalized anxiety disorder F41.1 and Grief F43.20 [place] [id number] [place] [address] Jan, [place] [address] [address] Jan, Back pain 724.5 ; Upper respiratory infection 465.9 ; HTN (hypertension) 401.9 and Dyspepsia 536.8 [place] [id number] [place] [address] Dec, [place] [id number] [place] [address] Nov, Back pain 724.5 ; Abdominal pain, bilateral lower quadrant 789.03 ; GERD (gastroesophageal reflux disease) 530.81 ; Upper respiratory infection 465.9 ; Dysuria 788.1 and HTN (hypertension) 401.9 [facility] [id number] [place] [address] Nov, [facility] [id number] [place] [address] Nov, [facility] [id number] [place] [address] Nov, [facility] [address], [place] [address] Nov, Cough 786.2 [facility] [id number] [place] [address] Nov, Cough 786.2 [facility] [id number] [place] [address] Oct, Unspecified episodic mood disorder 296.90 and Anxiety disorder, unspecified 300.00 [facility] [id number] [place] [address] Oct, Abdominal pain, left upper quadrant 789.02 ; Essential hypertension, benign 401.1 ; Irritable bowel syndrome 564.1 ; Abscess 682.9 ; Heartburn 787.1 ; Acute sinusitis, unspecified 461.9 ; Muscle spasm of back 724.8 ; Cough 786.2 and Skin tag 701.9 [facility] [id number] [place] [address] September, [facility] [id number] [place] [address] September, [facility] [id number] [place] [address] September, [facility] [id number] [place] [address] Aug, [facility] [id number] [place] [address] Aug, [facility] [address], [place] [address] Jul, [facility] [id number] [place] [address] Jul, [facility] [id number] [place] [address] Jul, [facility] [id number] [place] [address] Jul, [facility] [place] [facility] [address] [id number] [place] [address] Jul, [facility] [place] [facility] [address] [id number] [place] [address] Jul, [facility] [place] [facility] [address] [id number] [place] [address] Jul, [facility] [place] [facility] [address] [id number] [place] [address] Jul, [facility] [place] [facility] [address] [id number] [place] [address] Jul, [facility] [place] [facility] [address] [id number] [place] [address] Jul, [facility] [place] [facility] [address] [id number] [place] [address] Jul, [facility] [place] [facility] [address] [id number] [place] [address] Jul, [facility] [place] [facility] [address] [id number] [place] [address] Jul, [facility] [place] [facility] [address] [id number] [place] [address] Jul, [facility] [place] [facility] [address] [id number] [place] [address] Jul, [facility] [place] [facility] [address] [id number] [place] [address] Jul, [facility] [place] [facility] [address] [id number] [place] [address] Jul, [facility] [place] [facility] [address] [id number] [place] [address] Jun, [facility] [place] [facility] [address] [id number] [place] [address] Jun, [facility] [place] [facility] [address] [id number] [place] [address] Jun, 2014 [facility] [place] [facility] [address] [id number] [place] [address] Jun, 2014 [facility] [place] [facility] [address] [id number] [place] [address] Jun, 2014 [facility] [place] [facility] [address] [id number] [place] [address] Jun, 2014 [facility] [place] [facility] [address] [id number] [place] [address] Jun, 2014 [facility] [place] [facility] [address] [id number] [place] [address] Jun, 2014 [facility] [place] [facility] [address] [id number] [place] [address] Apr, [facility] [place] [facility] [address] [id number] [place] [address] 29 Apr, 2014 [facility] [place] [facility] [address] [id number] [place] [address] Apr, [facility] [place] [facility] [address] [id number] [place] [address] Apr, [facility] [place] [facility] [address] [id number] [place] [address] 18 Apr, 2014 [facility] [place] [facility] [address] [id number] [place] [address] 18 Apr, 2014 [facility] [place] [facility] [address] [id number] [place] [address] 15 Apr, 2014 [facility] [place] [facility] [address] [id number] [place] [address] 15 Apr, 2014 [facility] [place] [facility] [address] [id number] [place] [address] 12 Apr, 2014 [facility] [place] [facility] [address] [id number] [place] [address] Apr, [facility] [place] [facility] [address] [id number] [place] [address] Apr, [facility] [place] [facility] [address] [id number] [place] [address] Apr, [facility] [place] [facility] [address] [id number] [place] [address] Apr, [facility] [place] [facility] [address] [id number] [place] [address] Apr, [facility] [place] [facility] [address] [id number] [place] [address] Apr, [facility] [place] [facility] [address] [id number] [place] [address] Feb, [facility] [place] [facility] [address] [id number] [place] [address] Feb, [facility] [place] [facility] [address] [id number] [place] [address] Feb, [facility] [place] [facility] [address] [id number] [place] [address] Feb, [facility] [place] [facility] [address] [id number] [place] [address] Feb, [facility] [place] [facility] [address] [id number] [place] [address] Feb, [facility] [place] [facility] [address] [id number], [place] [address] Jan, [facility] [place] [facility] [address] [id number] [place] [address] Jan, [facility] [place] [facility] [address] [id number] [place] [address] Jan, [facility] [place] [facility] [address] [id number] [place] [address] 05 Jan, 2014 [facility] [place] [facility] [address] [id number] [place] [address] Jan, [facility] [place] [facility] [address] [id number] [place] [address] Jan, [facility] [place] [facility] [address] [id number] [place] [address] Dec, [facility] [place] [facility] [address] [id number] [place] [address] Dec, [facility] [place] [facility] [address] [id number] [place] [address] Dec, [facility] [place] [facility] [address] [id number] [place] [address] Dec, [facility] [place] [facility] [address] [id number] [place] [address] Nov, [facility] [place] [facility] [address] [id number] [place] [address] Nov, [facility] [place] [facility] [address] [id number] [place] [address] Nov, [facility] [place] [facility] [address] [id number] [place] [address] Nov, [facility] [place] [facility] [address] [id number] [place] [address] Nov, [facility] [place] [facility] [address] [id number] [place] [address] Nov, [facility] [place] [facility] [address] [id number] [place] [address] Nov, [facility] [place] [facility] [address] [id number] [place] [address] Nov, [facility] [place] [facility] [address] [id number] [place] [address] Oct, [facility] [place] [facility] [address] [id number] [place] [address] Oct, [facility] [place] [facility] [address] [id number] [place] [address] Oct, [facility] [place] [facility] [address] [id number] [place] [address] Oct, [facility] [place] [facility] [address] [id number] [place] [address] Oct, [facility] [place] [facility] [address] [id number] [place] [address] Oct, [facility] [place] [facility] [address] [id number] [place] [address] Oct, [facility] [place] [facility] [address] [id number] [place] [address] Oct, [facility] [place] [facility] [address] [id number] [place] [address] Oct, [facility] [place] [facility] [address] [id number] [place] [address] Oct, [facility] [place] [facility] [address] [id number] [place] [address] Oct, [facility] [place] [facility] [address] [id number] [place] [address] Oct, [facility] [place] [facility] [address] [id number], [place] [address] Oct, [facility] [place] [facility] [address] [id number], [place] [address] Oct, [facility] [place] [facility] [address] [id number] [place] [address] Oct, [facility] [place] [facility] [address] [id number] [id number] 17 Oct, 2013 [facility] [place] [facility] [address] [id number], [place] [address] 16 Oct, 2013 [facility] [place] [facility] [address] [id number], [place] [address] 16 Oct, 2013 [facility] [place] [facility] [address] [id number] [place] [address] Oct, [facility] [place] [facility] [address] [id number] [place] [address] Oct, [facility] [place] [facility] [address] [id number] [place] [address] Oct, [facility] [place] [facility] [address] [id number] [place] [address] Oct, [facility] [place] [facility] [address] [id number] [place] [address] Oct, [facility] [place] [facility] [address] [id number] [place] [address] Oct, [facility] [place] [facility] [address] [id number] [place] [address] Oct, [facility] [place] [facility] [address] [id number] [place] [address] Oct, [facility] [place] [facility] [address] [id number] [place] [address] Oct, [facility] [place] [facility] [address] [id number] [place] [address] Oct, [facility] [place] [facility] [address] [id number] [place] [address] Oct, [facility] [place] [facility] [address] [id number] [place] [address] Oct, [facility] [place] [facility] [address] [id number] [place] [address] September, [facility] [place] [facility] [address] [id number] [place] [address] September, [facility] [place] [facility] [address] [id number] [place] [address] September, [facility] [place] [facility] [address] [id number] [place] [address] September, [facility] [place] [facility] [address] [id number] [place] [address] September, [facility] [place] [facility] [address] [id number] [place] [address] September, [facility] [place] [facility] [address] [id number] [place] [address] September, [facility] [place] [facility] [address] [id number] [place] [address] September, [facility] [place] [facility] [address] [id number] [place] [address] September, [facility] [place] [facility] [address] [id number] [place] [address] September, [facility] [place] [facility] [address] [id number] [place] [address] September, [facility] [place] [facility] [address] [id number] [place] [address] September, [facility] [place] [facility] [address] [id number] [place] [address] September, [facility] [place] [facility] [address] [id number] [place] [address] September, [facility] [place] [facility] [address] [id number] [place] [address] September, [facility] [place] [facility] [address] [id number] [place] [address] September, [facility] [place] [facility] [address] [id number] [place] [address] September, [facility] [place] [facility] [address] [id number] [place] [address] September, [facility] [place] [facility] [address] [id number] [place] [address] Aug, [facility] [place] [facility] [address] [id number] [place] [address] Aug, [facility] [place] [facility] [address] [id number] [place] [address] Aug, [facility] [place] [facility] [address] [id number] [place] [address] Aug, [facility] [place] [facility] [address] [id number] [place] [address] Aug, [facility] [place] [facility] [address] [id number] [place] [address] Aug, [facility] [place] [facility] [address] [id number] [place] [address] Jul, [facility] [place] [facility] [address] [id number] [place] [address] Jul, [facility] [place] [facility] [address] [id number] [place] [address] Jul, [facility] [place] [facility] [address] [id number] [place] [address] Jul, [facility] [place] [facility] [address] [id number] [place] [address] Jun, [facility] [place] [facility] [address] [id number] [place] [address] Jun, [facility] [place] [facility] [address] [id number] [place] [address] Jun, [facility] [place] [facility] [address] [id number] [place] [address] Jun, [facility] [place] [facility] [address] [id number] [place] [address] Mar, [facility] [place] [facility] [address] [id number] [place] [address] Mar, [facility] [place] [facility] [address] [id number] [place] [address] Mar, [facility] [address] [id number] [place] [address] Mar, [facility] [place] [facility] [address] [id number] [place] [address] Feb, [facility] [address] [id number] [place] [address] Feb, [facility] [place] [facility] [address] [id number] [place] [address] Feb, [facility] [address] [id number] [place] [address] Jan, [facility] [address] [id number] [place] [address] Jan, [facility] [place] [facility] [address] [id number] [place] [address] Jan, [facility] [address] [id number] [place] [address] Jan, [facility] [address] [id number] [place] [address] Dec, [facility] [address] [id number] [place] [address] Dec, [facility] [place] [facility] [address] [id number] [place] [address] Dec, [facility] [place] [facility] [address] [id number] [place] [address] Dec, [facility] [place] [facility] [address] [id number] [place] [address] Nov, [facility] [place] [facility] [address] [id number] [place] [address] Nov, [facility] [place] [facility] [address] [id number] [place] [address] Nov, [facility] [place] [facility] [address] [id number] [place] [address] Nov, [facility] [place] [facility] [address] [id number] [place] [address] Nov, [facility] [place] [facility] [address] [id number] [place] [address] Nov, [facility] [place] [facility] [address] [id number] [place] [address] Oct, [facility] [place] [facility] [address] [id number] [place] [address] Oct, [facility] [place] [facility] [address] [id number] [place] [address] Oct, [facility] [place] [facility] [address] [id number] [place] [address] Oct, [facility] [place] [facility] [address] [id number] [place] [address] Oct, [facility] [place] [facility] [address] [id number] [place] [address] 16 Oct, 2012 [facility] [place] [facility] [address] [id number] [place] [address] Oct, [facility] [place] [facility] [address] [id number] [place] [address] Oct, [facility] [place] [facility] [address] [id number], [place] [address] Oct, [facility] [place] [facility] [address] [id number] [place] [address] Oct, [facility] [place] [facility] [address] [id number] [place] [address] September, [facility] [place] [facility] [address] [id number] [place] [address] September, [facility] [place] [facility] [address] [id number], [place] [address] September, [facility] [address] [id number] [place] [address] Aug, [facility] [address] [id number] [place] [address] Aug, [facility] [address] [id number] [place] [address] Aug, [facility] [address] [id number] [place] [address] Aug, [facility] [address] [id number] [place] [address] Jul, [facility] [address] [id number] [place] [address] Jul, [facility] [address] [id number] [place] [address] Jul, [facility] [address] [id number] [place] [address] Jul, [facility] [address] [id number] [place] [address] Jul, [facility] [address] [facility] [id number] [place] [address] Jul, [facility] [address] [id number] [place] [address] May, [facility] [address] [id number] [place] [address] May, [facility] [place] [facility] [address] [id number] [place] [address] May, [facility] [place] [facility] [address] [id number] [place] [address] May, [facility] [address] [id number] [place] [address] May, [facility] [place] [facility] [address] [id number] [place] [address] 22 May, 2012 [facility] [place] [facility] [address] [id number] [place] [address] May, [facility] [place] [facility] [address] [id number] [place] [address] 18 May, 2012 [facility] [place] [facility] [address] [id number] [place] [address] 17 May, 2012 [facility] [place] [facility] [address] [id number] [place] [address] 17 May, 2012 [facility] [place] [facility] [address] [id number] [place] [address] 16 May, 2012 [facility] [place] [facility] [address] [id number] [place] [address] Apr, [facility] [place] [facility] [address] [id number] [place] [address] Apr, [facility] [place] [facility] [address] [id number] [place] [address] Apr, [facility] [place] [facility] [address] [id number] [place] [address] Apr, [facility] [place] [facility] [address] [id number] [place] [address] Apr, [facility] [place] [facility] [address] [id number] [place] [address] Apr, [facility] [place] [facility] [address] [id number] [place] [address] Mar, [facility] [place] [facility] [address] [id number] [place] [address] Mar, [facility] [place] [facility] [address] [id number] [place] [address] Mar, [facility] [place] [facility] [address] [id number] [place] [address] Mar, [facility] [place] [facility] [address] [id number] [place] [address] Mar, [facility] [place] [facility] [address] [id number] [place] [address] Mar, [facility] [place] [facility] [address] [facility] [id number] [place] [address] Mar, [facility] [place] [facility] [address] [id number] [place] [address] Mar, [facility] [place] [facility] [address] [id number] [place] [address] Feb, [facility] [place] [facility] [address] [id number] [place] [address] Feb, [facility] [place] [facility] [address] [id number] [place] [address] 16 Feb, 2012 [facility] [place] [facility] [address] [id number], [place] [address] 15 Feb, 2012 [facility] [place] [facility] [address] [id number], [place] [address] 15 Feb, 2012 [facility] [place] [facility] [address] [facility] [id number], [place] [address] 13 Feb, 2012 [facility] [place] [facility] [address] [id number], [place] [address] Feb, [facility] [place] [facility] [address] [id number], [place] [address] Feb, [facility] [place] [facility] [address] [id number], [place] [address] Feb, [facility] [place] [facility] [address] [id number], [place] [address] Feb, [facility] [place] [facility] [address] [facility] [id number], [place] [address] Feb, [facility] [place] [facility] [address] [id number] [place] [address] 11 Feb, 2012 [facility] [place] [facility] [address] [id number] [place] [address] Feb, [facility] [place] [facility] [address] [id number] [place] [address] Feb, [facility] [place] [facility] [address] [id number] [place] [address] Feb, [facility] [place] [facility] [address] [id number] [place] [address] Feb, [facility] [place] [facility] [address] [id number] [place] [address] Feb, [facility] [place] [facility] [address] [id number] [place] [address] Feb, [facility] [place] [facility] [address] [id number] [place] [address] 19 Jan, 2012 [facility] [place] [facility] [address] [id number] [place] [address] 13 Jan, 2012 [facility] [place] [facility] [address] [id number] [place] [address] 11 Jan, 2012 [facility] [place] [facility] [address] [id number] [place] [address] 10 Jan, 2012 [facility] [place] [facility] [address] [id number] [place] [address] 05 Jan, 2012 [facility] [place] [facility] [address] [id number] [place] [address] Dec, [facility] [place] [facility] [address] [id number] [place] [address] Dec, [facility] [place] [facility] [address] [id number] [place] [address] Dec, [facility] [place] [facility] [address] [id number] [place] [address] Dec, [facility] [place] [facility] [address] [id number] [place] [address] Dec, [facility] [place] [facility] [address] [id number] [place] [address] Dec, [facility] [place] [facility] [address] [id number] [place] [address] Nov, [facility] [place] [facility] [address] [id number] [place] [address] Nov, [facility] [address] [id number] [place] [address] Nov, [facility] [place] [facility] [address] [id number] [place] [address] Nov, [facility] [address] [id number] [place] [address] Nov, [facility] [address] [id number] [place] [address] Oct, [facility] [place] [facility] [address] [id number] [place] [address] Oct, [facility] [place] [facility] [address] [id number] [place] [address] Oct, [facility] [place] [facility] [address] [id number] [place] [address] September, [facility] [place] [facility] [address] [id number] [place] [address] September, [facility] [place] [facility] [address] [id number] [place] [address] September, [facility] [place] [facility] [address] [id number] [place] [address] September, [facility] [place] [facility] [address] [id number] [place] [address] September, [facility] [place] [facility] [address] [id number] [place] [address] September, [facility] [address] [id number] [place] [address] Aug, [facility] [address] [id number] [place] [address] Aug, [facility] [address] [id number] [place] [address] Aug, [facility] [address] [id number] [place] [address] Jun, [facility] [address] [id number] [place] [address] Jun, [facility] [address] [id number] [place] [address] Jun, [facility] [address] [id number] [place] [address] Jun, [facility] [address] [id number] [place] [address] May, [facility] [address] [id number] [place] [address] May, [facility] [address] [id number] [place] [address] May, [facility] [address] [id number] [place] [address] May, [facility] [place] [facility] [address] [id number] [place] [address] May, [facility] [place] [facility] [address] [id number] [place] [address] Apr, [facility] [place] [facility] [address] [id number] [place] [address] Apr, [facility] [place] [facility] [address] [facility] [id number] [place] [address] Apr, [facility] [place] [facility] [address] [id number] [place] [address] 19 Apr, 2011 [facility] [place] [facility] [address] [id number] [place] [address] 19 Apr, 2011 [facility] [place] [facility] [address] [id number] [place] [address] 16 Apr, 2011 [facility] [place] [facility] [address] [id number] [place] [address] 16 Apr, 2011 [facility] [place] [facility] [address] [id number] [place] [address] Mar, [facility] [place] [facility] [address] [id number] [place] [address] Mar, [facility] [place] [facility] [address] [id number] [place] [address] Mar, [facility] [place] [facility] [address] [id number] [place] [address] Feb, [facility] [place] [facility] [address] [id number] [place] [address] 24 Feb, 2011 [facility] [place] [facility] [address] [id number] [place] [address] Feb, [facility] [place] [facility] [address] [id number] [place] [address] Feb, [facility] [place] [facility] [address] [id number] [place] [address] 18 Feb, 2011 [facility] [place] [facility] [address] [id number] [place] [address] 17 Feb, 2011 [facility] [place] [facility] [address] [id number] [place] [address] 13 Jan, 2011 [facility] [place] [facility] [address] [id number] [place] [address] Jan, [facility] [place] [facility] [address] [id number] [place] [address] September, [facility] [address] [id number] [place] [address] Jun, [facility] [place] [facility] [address] [id number] [place] [address] Apr, [facility] [place] [facility] [address] [facility] [id number] [place] [address] Apr, [facility] [place] [facility] [address] [id number] [place] [address] Apr, [facility] [address] [id number] [place] [address] Apr, [facility] [place] [facility] [address] [id number] [place] [address] Apr, [facility] [place] [facility] [address] [facility] [id number] [place] [address] Mar, [facility] [place] [facility] [address] [id number], [place] [address] Mar, [facility] [address] [id number], [place] [address] Mar, [facility] [place] [facility] [address] [facility] [id number], [place] [address] Mar, [facility] [place] [facility] [address] [facility] [id number], [place] [address] Feb, [facility] [place] [facility] [address] [id number], [place] [address] 15 Jan, 2010 [facility] [place] [facility] [address] [id number], [place] [address] Mar, [facility] [place] [facility] [address] [facility] [id number], [place] [address] 15 Jan, 2009 [facility] [place] [facility] [address] [facility] [id number], [place] [address] Oct, [facility] [place] [facility] [address] [facility] [id number] [place] [address] Apr, IMMUNIZATIONS No Known Immunizations SOCIAL HISTORY [...]
--- OUTSIDE RECORDS SUMMARY | 2018-09-28 04:04 | XMS REPORT ---
Author Author Migration, Doctor Organization [facility] Address Unknown Phone Unavailable Care Team Providers Care Turkey Farmer Name Role Phone Migration, Doctor Unavailable Unavailable PROBLEMS Type Condition ICD9-CM Code [id number] Code Onset Dates Condition Status SNOMED Code Problem Irritable bowel syndrome without diarrhea K58.9 Active 54320234 Problem Essential hypertension I10 Active 76832368 Problem Bilateral low back pain without sciatica M54.5 Active 816831240 Problem Morbid (severe) obesity due to excess calories E66.01 Active 115668249 Problem Hypertriglyceridemia E78.1 Active 971446682 Problem Dysuria R30.0 Active 35415376 Problem Anxiety F41.9 Active 05729327 Problem Pre-diabetes R73.03 Active 791290087 Problem Alternating constipation and diarrhea R19.8 Active 564549582 Problem Body mass index (BMI) of 40.0-44.9 in adult Z68.41 Active 377400887 ALLERGIES No Information ENCOUNTERS Encounter Location Date Diagnosis [facility] [address] [address] Jul, [facility] [id number] [place] [address] Jul, [facility] [id number] [place] [address] Jun, [facility] [id number] [place] [address] Jun, Acute vaginitis N76.0 ; Dermatitis L30.9 ; BMI 40.0-44.9, adult Z68.41 and Morbid obesity E66.01 [facility] [id number] [place] [address] Jun, Vaginal discharge N89.8 ; Urinary tract infection without hematuria, site unspecified N39.0 and BMI 40.0-44.9, adult Z68.41 [facility] [address] [address] May, [facility] [id number] [place] [address] May, [facility] [id number] [place] [phone] 18 Apr, 2018 Urinary tract infection, site not specified N39.0 [facility] [id number] [place] [address] 13 Apr, 2018 Dysuria R30.0 ; Urinary tract infection, site not specified N39.0 and Hematuria, unspecified R31.9 [facility] [id number] [place] [address] Mar, [facility] [id number] [place] [address] Mar, Left anterior knee pain M25.562 ; Abscess of buttock, left L02.31 and BMI 40.0-44.9, adult Z68.41 [facility] [id number] [place] [address] Mar, [facility] [id number] [place] [address] Feb, Abrasion of right ear canal, initial encounter S00.411A ; Left wrist pain M25.532 ; Right acute serous otitis media, recurrence not specified H65.01 and BMI 40.0-44.9, adult Z68.41 [facility] [id number] [place] [address] Jan, [facility] [id number] [place] [address] Jan, [facility] [id number] [place] [address] Jan, BMI 40.0-44.9, adult Z68.41 ; Pre-diabetes R73.03 ; Essential hypertension I10 ; Morbid (severe) obesity due to excess calories E66.01 ; Bilateral low back pain without sciatica M54.5 and Heartburn R12 [facility] [id number] [place] [address] 19 Jan, 2018 History of UTI Z87.440 ; Well woman exam with routine gynecological exam Z01.419 ; Screening for breast cancer Z12.31 ; Candidal vaginitis B37.3 and BMI 40.0-44.9, adult Z68.41 [facility] [id number] [place] [address] 05 Jan, 2018 [facility] [id number] [place] [address] Jan, Dysuria R30.0 ; Acute cystitis with hematuria N30.01 ; Yeast infection B37.9 and BMI 40.0-44.9, adult Z68.41 [facility] [id number] [place] [address] Dec, [facility] [id number] [place] [address] Dec, [facility] [id number] [place] [address] Nov, History of UTI Z87.440 [facility] [id number] [place] [address] Nov, UTI symptoms R39.9 ; Acute nasopharyngitis J00 and BMI 40.0-44.9, adult Z68.41 [facility] [address] [address] Nov, [facility] [id number] [place] [address] Nov, Yeast infection involving the vagina and surrounding area B37.3 [facility] [id number] [place] [address] Nov, Yeast infection involving the vagina and surrounding area B37.3 [facility] [id number] [place] [address] Nov, Yeast infection involving the vagina and surrounding area B37.3 ; Body mass index (BMI) of 40.0-44.9 in adult Z68.41 and Morbid (severe) obesity due to excess calories E66.01 [facility] [id number] [place] [address] Oct, Abscess of groin, left L02.214 and Pre-diabetes R73.03 [facility] [id number] [place] [address] September, Pre-diabetes R73.03 [facility] [id number] [place] [address] Aug, [facility] [address] [address] Jul, Bilateral low back pain without sciatica M54.5 [facility] [id number] [place] [address] Jun, [facility] [id number] [place] [address] Jun, [facility] [id number] [place] [address] Jun, [facility] [id number] [place] [address] May, [facility] [id number] [place] [address] May, Ingrown left greater toenail L60.0 [facility] [id number] [place] [address] May, [facility] [id number] [place] [address] May, Influenza A J10.1 ; Fever R50.9 and Body aches R52 [facility] [id number] [place] [address] Apr, [facility] [id number] [place] [address] Apr, [facility] [id number] [place] [address] Apr, [facility] [address] [address] Apr, Abscess L02.91 and Obesity (BMI 30-39.9) E66.9 [facility] [id number] [place] [address] Apr, [facility] [id number] [place] [address] Apr, [facility] [id number] [place] [address] Mar, Acute non-recurrent maxillary sinusitis J01.00 [facility] [id number] [place] [address] Feb, Heartburn R12 [facility] [id number] [place] [address] Feb, Heartburn R12 ; Low back pain M54.5 ; Essential hypertension I10 ; Bilateral low back pain without sciatica M54.5 ; Anxiety F41.9 ; Pre-diabetes R73.03 ; Other obesity due to excess calories E66.09 ; Alternating constipation and diarrhea R19.8 ; Dyspepsia R10.13 ; Generalized abdominal pain R10.84 ; Rhinosinusitis J32.9 and Boil L02.92 [facility] [id number] [place] [address] Jan, Heartburn R12 [facility] [id number] [place] [address] Jan, [facility] [id number] [place] [address] Jan, [facility] [address] [address] Jan, Acute seasonal allergic rhinitis due to pollen J30.1 and Irritable bowel syndrome without diarrhea K58.[address] [address] Dec, Low back pain M54.5 and Acute cystitis with hematuria N30.01 [facility] [id number] [place] [address] Dec, Low back pain M54.5 and Acute cystitis with hematuria N30.01 [facility] [id number] [place] [address] Dec, Heartburn R12 ; Essential hypertension I10 ; Acute non-recurrent maxillary sinusitis J01.00 ; Bilateral low back pain without sciatica M54.5 ; Anxiety F41.9 ; Pre-diabetes R73.03 ; Pain in right foot M79.671 ; Pain in left foot M79.672 ; Other obesity due to excess calories E66.09 and Acute cystitis with hematuria N30.01 [facility] [id number] [place] [address] Dec, Bilateral low back pain without sciatica M54.5 ; Acute non-recurrent maxillary sinusitis J01.00 and Pre-diabetes R73.03 [facility] [id number] [place] [address] Oct, [facility] [address] [place] [address] Aug, [facility] [id number] [place] [address] Aug, Acute vaginitis N76.0 ; Urinary frequency R35.0 ; Screen for STD (sexually transmitted disease) Z11.3 and Abscess L02.[id number] [place] [address] Aug, Plantar wart of right foot B07.0 [facility] [address] [address] Jul, Plantar wart of right foot B07.0 [facility] [id number] [place] [address] Jun, [facility] [address] [address] Jun, Heartburn R12 ; Essential hypertension I10 ; Anxiety F41.9 ; Folliculitis L73.9 and Plantar wart of right foot B07.0 [facility] [id number] [place] [address] Jun, [facility] [address] [address] May, Low back pain M54.5 and Other chronic pain G89.29 [facility] [address] [address] May, [facility] [id number] [place] [address] May, [facility] [id number] [place] [address] May, Heartburn R12 ; Bilateral low back pain without sciatica M54.5 ; Essential hypertension I10 ; Long-term use of high-risk medication Z79.899 ; Anxiety F41.9 ; Impacted cerumen of right ear H61.21 ; Folliculitis L73.9 ; High risk bisexual behavior Z72.53 and General medical exam Z00.00 [facility] [id number] [place] [address] May, [facility] [id number] [place] [address] May, [facility] [id number] [place] [address] Mar, Acute nasopharyngitis J00 ; Acute intractable tension-type headache G44.201 and Cough R05 [facility] [address] [address] Jan, [facility] [id number] [place] [address] Jan, Abscess L02.91 [facility] [id number] [place] [address] Jan, Urinary urgency R39.15 and Urinary tract infection without hematuria, site unspecified N39.0 [facility] [id number] [place] [address] Jan, [facility] [id number] [place] [address] Jan, [facility] [id number] [place] [address] Dec, [facility] [id number] [place] [address] Dec, Dermatofibroma D23.9 [facility] [id number] [place] [address] September, [facility] [id number] [place] [address] Aug, [facility] [id number] [place] [address] Aug, Pain in left knee M25.562 ; Heartburn R12 ; Bilateral low back pain without sciatica M54.5 ; Essential hypertension I10 ; Ingrown left big toenail L60.0 ; Chronic pain G89.29 ; Irritable bowel syndrome with constipation K58.9 and Skin infection L08.9 [facility] [id number] [place] [address] Aug, [facility] [address] [address] Jul, [facility] [id number] [place] [address] Jun, [facility] [id number] [place] [address] Jun, [facility] [id number] [place] [address] Jun, [facility] [id number] [place] [address] Jun, [facility] [id number] [place] [address] Jun, Upper respiratory infection J06.9 ; Bilateral low back pain without sciatica M54.5 and Headache R51 [facility] [id number] [place] [address] May, [facility] [id number] [place] [address] Apr, Bilateral low back pain without sciatica M54.5 ; Upper respiratory infection J06.9 and Yeast dermatitis B37.2 [facility] [address] [address] Apr, [facility] [id number] [place] [address] Apr, [facility] [id number] [place] [address] Feb, [facility] [id number] [place] [address] Feb, [facility] [address] [address] Feb, [facility] [id number] [place] [address] Feb, Essential hypertension I10 ; Heartburn R12 ; Irritable bowel syndrome without diarrhea K58.9 ; Bilateral low back pain, with sciatica presence unspecified M54.5 and Upper respiratory infection J06.9 [facility] [id number] [place] [address] Feb, [facility] [address] [address] Feb, Generalized anxiety disorder F41.1 and Grief F43.20 [facility] [address] [address] Jan, [address] [address] Jan, Back pain 724.5 ; Upper respiratory infection 465.9 ; HTN (hypertension) 401.9 and Dyspepsia 536.8 [facility] [id number] [place] [address] Dec, [facility] [id number] [place] [address] Nov, Back pain 724.5 ; Abdominal pain, bilateral lower quadrant 789.03 ; GERD (gastroesophageal reflux disease) 530.81 ; Upper respiratory infection 465.9 ; Dysuria 788.1 and HTN (hypertension) 401.9 [facility] [id number] [place] [address] Nov, [facility] [id number] [place] [address] Nov, [facility] [id number] [place] [address] Nov, [facility] [id number] [place] [address] Nov, Cough 786.[address] [address] Nov, Cough 786.2 [facility] [id number] [place] [address] Oct, Unspecified episodic mood disorder 296.90 and Anxiety disorder, unspecified 300.00 [facility] [id number] [place] [address] Oct, Abdominal pain, left upper quadrant 789.02 ; Essential hypertension, benign 401.1 ; Irritable bowel syndrome 564.1 ; Abscess 682.9 ; Heartburn 787.1 ; Acute sinusitis, unspecified 461.9 ; Muscle spasm of back 724.8 ; Cough 786.2 and Skin tag 701.9 [facility] [id number] [place] [address] September, [facility] [id number] [place] [address] September, [facility] [id number] [place] [address] September, [facility] [id number] [place] [address] Aug, [facility] [id number] [place] [address] Aug, [facility] [id number] [place] [address] Jul, [facility] [id number] [place] [address] Jul, [facility] [id number] [place] [address] Jul, [facility] [id number] [place] [address] Jul, [facility] [id number] [place] [address] Jul, [facility] [id number] [place] [address] Jul, [facility] [place] [facility] [address] [id number] [place] [address] Jul, [facility] [place] [facility] [address] [id number] [place] [address] Jul, [facility] [place] [facility] [address] [id number] [place] [address] Jul, [facility] [place] [facility] [address] [id number] [place] [address] Jul, [facility] [place] [facility] [address] [id number] [place] [address] Jul, [facility] [place] [facility] [address] [id number] [place] [address] Jul, [facility] [place] [facility] [address] [id number] [place] [address] Jul, [facility] [place] [facility] [address] [id number] [place] [address] Jul, [facility] [place] [facility] [address] [id number] [place] [address] Jul, [facility] [place] [facility] [address] [id number] [place] [address] Jul, [facility] [place] [facility] [address] [id number] [place] [address] Jul, [facility] [place] [facility] [address] [id number] [place] [address] Jun, [facility] [place] [facility] [address] [id number] [place] [address] Jun, [facility] [place] [facility] [address] [id number] [place] [address] Jun, [facility] [place] [facility] [address] [id number] [place] [address] Jun, [facility] [place] [facility] [address] [id number] [place] [address] 13 Jun, 2014 [facility] [place] [facility] [address] [id number] [place] [address] Jun, 2014 [facility] [place] [facility] [address] [id number] [place] [address] Jun, 2014 [facility] [place] [facility] [address] [id number] [place] [address] Jun, 2014 [facility] [place] [facility] [address] [id number] [place] [address] Apr, [facility] [place] [facility] [address] [id number] [place] [address] Apr, [facility] [place] [facility] [address] [id number] [place] [address] Apr, [facility] [place] [facility] [address] [id number] [place] [address] Apr, [facility] [place] [facility] [address] [id number] [place] [address] Apr, [facility] [place] [facility] [address] [id number] [place] [address] Apr, [facility] [place] [facility] [address] [id number] [place] [address] 15 Apr, 2014 [facility] [place] [facility] [address] [id number] [place] [address] 15 Apr, 2014 [facility] [place] [facility] [address] [id number] [place] [address] 12 Apr, 2014 [facility] [place] [facility] [address] [id number] [place] [address] Apr, [facility] [place] [facility] [address] [id number] [place] [address] 11 Apr, 2014 [facility] [place] [facility] [address] [id number], [place] [address] Apr, [facility] [place] [facility] [address] [id number] [place] [address] Apr, [facility] [place] [facility] [address] [id number] [place] [address] Apr, [facility] [place] [facility] [address] [facility] [id number] [place] [address] Apr, [facility] [place] [facility] [address] [id number] [place] [address] Feb, [facility] [place] [facility] [address] [id number] [place] [address] Feb, [facility] [place] [facility] [address] [id number] [place] [address] Feb, [facility] [place] [facility] [address] [id number] [place] [address] Feb, [facility] [place] [facility] [address] [id number] [place] [address] Feb, [facility] [place] [facility] [address] [id number] [place] [address] Feb, [facility] [place] [facility] [address] [id number] [place] [address] 08 Jan, 2013 [facility] [place] [facility] [address] [id number], [place] [address] 08 Sep, 2013 [facility] [place] [facility] [address] [id number], [place] [address] 05 Sep, 2013 [facility] [place] [facility] [address] [id number] [place] [address] 05 Sep, 2013 [facility] [place] [facility] [address] [id number] [place] [address] 05 Sep, 2013 [facility] [place] [facility] [address] [id number], [place] [address] 05 Sep, 2013 [facility] [place] [facility] [address] [id number] [place] [address] Dec, [facility] [place] [facility] [address] [id number] [place] [address] Dec, [facility] [place] [facility] [address] [id number] [place] [address] Dec, [facility] [place] [facility] [address] [id number] [place] [address] Dec, [facility] [place] [facility] [address] [id number] [place] [address] Nov, [facility] [place] [facility] [address] [id number] [place] [address] Nov, [facility] [place] [facility] [address] [id number] [place] [address] Nov, [facility] [place] [facility] [address] [id number] [place] [address] Nov, [facility] [place] [facility] [address] [id number] [place] [address] Nov, [facility] [place] [facility] [address] [id number] [place] [address] Nov, [facility] [place] [facility] [address] [id number] [place] [address] Nov, [facility] [place] [facility] [address] [id number] [place] [address] Nov, [facility] [place] [facility] [address] [id number] [place] [address] Oct, [facility] [place] [facility] [address] [id number] [place] [address] Oct, [facility] [place] [facility] [address] [id number] [place] [address] Oct, [facility] [place] [facility] [address] [id number] [place] [address] Oct, [facility] [place] [facility] [address] [id number] [place] [address] Oct, [facility] [place] [facility] [address] [id number] [place] [address] Oct, [facility] [place] [facility] [address] [id number] [place] [address] Oct, [facility] [place] [facility] [address] [id number] [place] [address] Oct, [facility] [place] [facility] [address] [id number] [place] [address] Oct, [facility] [place] [facility] [address] [id number] [place] [address] Oct, [facility] [place] [facility] [address] [id number] [place] [address] Oct, [facility] [place] [facility] [address] [id number] [place] [address] Oct, [facility] [place] [facility] [address] [id number] [place] [address] Oct, [facility] [place] [facility] [address] [id number] [place] [address] Oct, [facility] [place] [facility] [address] [id number][place] [address] Oct, [facility] [place] [facility] [address] [id number][place] [address] 17 Oct, 2013 [facility] [place] [facility] [address] [id number] [place] [address] 16 Oct, 2013 [facility] [place] [facility] [address] [id number] [place] [address] 16 Oct, 2013 [facility] [place] [facility] [address] [id number], [place] [address] 13 Oct, 2013 [facility] [place] [facility] [address] [id number] [address] Oct, [facility] [place] [facility] [address] [id number] [place] [address] Oct, [facility] [place] [facility] [address] [id number] [place] [address] Oct, [facility] [place] [facility] [address] [id number] [place] [address] Oct, [facility] [place] [facility] [address] [id number] [place] [address] Oct, [facility] [place] [facility] [address] [id number] [place] [address] Oct, [facility] [place] [facility] [address] [id number] [place] [address] Oct, [facility] [place] [facility] [address] [id number] [place] [address] Oct, [facility] [place] [facility] [address] [id number] [place] [address] Oct, [facility] [place] [facility] [address] [id number] [place] [address] Oct, [facility] [place] [facility] [address] [id number] [place] [address] Oct, [facility] [place] [facility] [address] [id number] [place] [address] September, [facility] [place] [facility] [address] [id number] [place] [address] September, [facility] [place] [facility] [address] [id number] [place] [address] September, [facility] [place] [facility] [address] [id number] [place] [address] September, [facility] [place] [facility] [address] [id number] [place] [address] September, [facility] [place] [facility] [address] [id number] [place] [address] September, [facility] [address] [id number] [place] [address] September, [facility] [place] [facility] [address] [id number] [place] [address] September, [facility] [place] [facility] [address] [id number] [place] [address] September, [facility] [place] [facility] [address] [id number] [place] [address] September, [facility] [place] [facility] [address] [id number] [place] [address] September, [facility] [place] [facility] [address] [id number] [place] [address] September, [facility] [place] [facility] [address] [id number] [place] [address] September, [facility] [place] [facility] [address] [id number] [place] [address] September, [facility] [place] [facility] [address] [id number] [place] [address] September, [facility] [place] [facility] [address] [id number] [place] [address] September, [facility] [place] [facility] [address] [id number] [place] [address] September, [facility] [place] [facility] [address] [id number] [place] [address] September, [facility] [place] [facility] [address] [id number] [place] [address] Aug, [facility] [place] [facility] [address] [id number] [place] [address] Aug, [facility] [place] [facility] [address] [id number] [place] [address] Aug, [facility] [place] [facility] [address] [id number] [place] [address] Aug, [facility] [place] [facility] [address] [id number] [place] [address] Aug, [facility] [place] [facility] [address] [id number] [place] [address] Aug, [facility] [place] [facility] [address] [id number] [place] [address] Jul, [facility] [place] [facility] [address] [id number] [place] [address] Jul, [facility] [place] [facility] [address] [id number] [place] [address] Jul, [facility] [place] [facility] [address] [id number] [place] [address] Jul, [facility] [place] [facility] [address] [id number] [place] [address] Jun, [facility] [place] [facility] [address] [id number] [place] [address] Jun, [facility] [place] [facility] [address] [id number] [place] [address] Jun, [facility] [place] [facility] [address] [id number] [place] [address] Jun, [facility] [place] [facility] [address] [id number] [place] [address] Mar, [facility] [place] [facility] [address] [id number] [place] [address] Mar, [facility] [place] [facility] [address] [id number] [place] [address] Mar, [facility] [place] [facility] [address] [id number] [place] [address] Mar, [facility] [place] [facility] [address] [id number] [place] [address] Feb, [facility] [address] [id number] [place] [address] Feb, [facility] [address] [id number] [place] [address] Feb, [facility] [address] [id number] [place] [address] Jan, [facility] [address] [id number] [place] [address] Jan, [facility] [address] [id number] [place] [address] Jan, [facility] [address] [id number] [place] [address] Jan, [facility] [address] [id number] [place] [address] Dec, [facility] [address] [id number] [place] [address] Dec, [facility] [address] [id number] [place] [address] Dec, [facility] [address] [id number] [place] [address] Dec, [facility] [place] [facility] [address] [id number] [place] [address] Nov, [facility] [address] [id number] [place] [address] Nov, [facility] [place] [facility] [address] [id number] [place] [address] Nov, [facility] [place] [facility] [address] [id number] [place] [address] Nov, [facility] [place] [facility] [address] [id number] [place] [address] Nov, [facility] [place] [facility] [address] [id number] [place] [address] Nov, [facility] [place] [facility] [address] [id number] [place] [address] Oct, [facility] [place] [facility] [address] [id number] [place] [address] Oct, [facility] [place] [facility] [address] [id number] [place] [address] Oct, [facility] [place] [facility] [address] [id number] [place] [address] Oct, [facility] [place] [facility] [address] [id number] [place] [address] 17 Oct, 2012 [facility] [place] [facility] [address] [id number] [place] [address] 16 Oct, 2012 [facility] [place] [facility] [address] [id number] [place] [address] 14 Oct, 2012 [facility] [place] [facility] [address] [id number] [place] [address] Oct, [facility] [place] [facility] [address] [id number] [place] [address] Oct, [facility] [place] [facility] [address] [id number] [place] [address] Oct, [facility] [place] [facility] [address] [id number], [place] [address] September, [facility] [place] [facility] [address] [id number] [place] [address] September, [facility] [place] [facility] [address] [id number] [place] [address] September, [facility] [place] [facility] [address] [id number], [place] [address] Aug, [facility] [place] [facility] [address] [id number], [place] [address] Aug, [facility] [address] [id number] [place] [address] Aug, [facility] [address] [id number] [place] [address] Aug, [facility] [address] [id number] [place] [address] Jul, [facility] [address] [id number] [place] [address] Jul, [facility] [address] [id number] [place] [address] Jul, [facility] [address] [id number] [place] [address] Jul, [facility] [address] [id number] [place] [address] Jul, [facility] [address] [id number] [place] [address] Jul, [facility] [address] [id number] [place] [address] May, [facility] [address] [id number] [place] [address] May, [facility] [address] [id number] [place] [address] May, [facility] [place] [facility] [address] [id number] [place] [address] May, [facility] [place] [facility] [address] [id number] [place] [address] May, [facility] [place] [facility] [address] [id number] [place] [address] May, [facility] [place] [facility] [address] [id number] [place] [address] May, [facility] [place] [facility] [address] [id number] [place] [address] 18 May, 2012 [facility] [place] [facility] [address] [id number] [place] [address] 17 May, 2012 [facility] [place] [facility] [address] [id number] [place] [address] 17 May, 2012 [facility] [place] [facility] [address] [id number] [place] [address] 16 May, 2012 [facility] [place] [facility] [address] [id number] [place] [address] Apr, [facility] [place] [facility] [address] [id number] [place] [address] Apr, [facility] [place] [facility] [address] [id number] [place] [address] Apr, [facility] [place] [facility] [address] [id number] [place] [address] Apr, [facility] [place] [facility] [address] [id number] [place] [address] Apr, [facility] [place] [facility] [address] [id number] [place] [address] Apr, [facility] [place] [facility] [address] [id number] [place] [address] Mar, [facility] [place] [facility] [address] [id number] [place] [address] Mar, [facility] [place] [facility] [address] [id number] [place] [address] Mar, [facility] [place] [facility] [address] [id number] [place] [address] Mar, [facility] [place] [facility] [address] [id number] [place] [address] Mar, [facility] [place] [facility] [address] [id number] [place] [address] Mar, [facility] [place] [facility] [address] [id number] [place] [address] 06 Mar, 2012 [facility] [place] [facility] [address] [id number] [place] [address] Mar, [facility] [place] [facility] [address] [id number] [place] [address] Feb, [facility] [place] [facility] [address] [id number] [place] [address] 23 Feb, 2012 [facility] [place] [facility] [address] [id number] [place] [address] 16 Feb, 2012 [facility] [place] [facility] [address] [id number] [place] [address] 15 Feb, 2012 [facility] [place] [facility] [address] [id number] [place] [address] 15 Feb, 2012 [facility] [place] [facility] [address] [id number][place] [address] 13 Feb, 2012 [facility] [place] [facility] [address] [id number], [place] [address] Feb, [facility] [place] [facility] [address] [id number], [place] [address] Feb, [facility] [place] [facility] [address] [id number], [place] [address] Feb, [facility] [place] [facility] [address] [id number], [place] [address] Feb, [facility] [place] [facility] [address] [id number], [place] [address] Feb, [facility] [place] [facility] [address] [id number], [place] [address] Feb, [facility] [place] [facility] [address] [id number], [place] [address] Feb, [facility] [place] [facility] [address] [id number] [place] [address] 11 Feb, 2012 [facility] [place] [facility] [address] [id number] [place] [address] 11 Feb, 2012 [facility] [place] [facility] [address] [id number] [place] [address] 11 Feb, 2012 [facility] [place] [facility] [address] [id number] [place] [address] Feb, [facility] [place] [facility] [address] [id number] [place] [address] 04 Feb, 2012 [facility] [place] [facility] [address] [id number] [place] [address] 19 Jan, 2012 [facility] [place] [facility] [address] [id number] [place] [address] 13 Jan, 2012 [facility] [place] [facility] [address] [id number] [place] [address] 11 Jan, 2012 [facility] [place] [facility] [address] [id number] [place] [address] 10 Jan, 2012 [facility] [place] [facility] [address] [id number] [place] [address] 05 Jan, 2012 [facility] [place] [facility] [address] [id number] [place] [address] Dec, [facility] [place] [facility] [address] [id number] [place] [address] Dec, [facility] [place] [facility] [address] [id number] [place] [address] Dec, [facility] [place] [facility] [address] [id number] [place] [address] Dec, [facility] [place] [facility] [address] [id number] [place] [address] Dec, [facility] [place] [facility] [address] [id number] [place] [address] Dec, [facility] [place] [facility] [address] [id number] [place] [address] Nov, [facility] [place] [facility] [address] [id number] [place] [address] Nov, [facility] [place] [facility] [address] [id number] [place] [address] Nov, [facility] [place] [facility] [address] [id number] [place] [address] Nov, [facility] [place] [facility] [address] [id number] [place] [address] Nov, [facility] [place] [facility] [address] [id number] [place] [address] Oct, [facility] [place] [facility] [address] [id number] [place] [address] Oct, [facility] [place] [facility] [address] [id number] [place] [address] Oct, [facility] [place] [facility] [address] [id number] [place] [address] September, [facility] [place] [facility] [address] [id number] [place] [address] September, [facility] [place] [facility] [address] [id number] [place] [address] September, [facility] [place] [facility] [address] [id number] [place] [address] September, [facility] [place] [facility] [address] [id number] [place] [address] September, [facility] [place] [facility] [address] [id number] [place] [address] September, [facility] [place] [facility] [address] [id number] [place] [address] Aug, [facility] [place] [facility] [address] [id number] [place] [address] Aug, [facility] [address] [id number] [place] [address] Aug, [facility] [address] [id number] [place] [address] Jun, [facility] [address] [id number] [place] [address] Jun, [facility] [address] [id number] [place] [address] Jun, [facility] [address] [id number] [place] [address] Jun, [facility] [address] [id number] [place] [address] May, [facility] [address] [id number] [place] [address] May, [facility] [address] [id number] [place] [address] May, [facility] [address] [facility] [id number] [place] [address] May, [facility] [address] [facility] [id number] [place] [address] May, [facility] [address] [id number], [place] [address] Apr, [facility] [address] [id number] [place] [address] Apr, [facility] [address] [id number] [place] [address] Apr, [facility] [place] [facility] [address] [id number] [place] [address] Apr, [facility] [address] [facility] [id number] [place] [address] Apr, [facility] [place] [facility] [address] [id number] [place] [address] 16 Apr, 2011 [facility] [place] [facility] [address] [id number] [place] [address] 16 Apr, 2011 [facility] [place] [facility] [address] [id number] [place] [address] Mar, [facility] [place] [facility] [address] [id number] [place] [address] Mar, [facility] [place] [facility] [address] [id number] [place] [address] Mar, [facility] [place] [facility] [address] [id number] [place] [address] Feb, [facility] [place] [facility] [address] [id number] [place] [address] Feb, [facility] [place] [facility] [address] [id number] [place] [address] Feb, [facility] [place] [facility] [address] [id number] [place] [address] Feb, [facility] [place] [facility] [address] [id number] [place] [address] Feb, [facility] [place] [facility] [address] [id number] [place] [address] 17 Feb, 2011 [facility] [place] [facility] [address] [id number] [place] [address] Jan, [facility] [place] [facility] [address] [id number] [place] [address] Jan, [facility] [place] [facility] [address] [id number] [place] [address] September, [facility] [place] [facility] [address] [id number] [place] [address] Jun, [facility] [place] [facility] [address] [id number] [place] [address] Apr, [facility] [address] [facility] [id number] [address] Apr, [facility] [address] [facility] [id number] [place] [id number] Apr, [facility] [id number] [address] Apr, [facility] [id number] [place] [id number] Apr, [facility] [id number] [place] [id number] Mar, [facility] [id number] [place] [id number] Mar, [facility] [id number] [place] [id number] Mar, [facility] [id number] [place] [id number] Mar, [facility] [id number] [address] Feb, [facility] [id number] [address] 15 Jan, 2010 [facility] [id number] [address] Mar, [facility] [id number] [address] 15 Jan, 2009 [facility] [id number] [address] Oct, [facility] [id number] [address] Apr, IMMUNIZATIONS No Known Immunizations SOCIAL HISTORY Never Assessed REASON FOR VISIT EMR-[facility] PLAN OF CARE VITAL SIGNS MEDICATIONS Medication Instructions Dosage Frequency Start Date End Date Duration Status Flexeril 10 mg 1 tablet by Oral route 2 times per day PRN Jul, Active Keflex 500 mg 1 capsule by Oral route 4 times per day for 10 day(s) September, Active Zithromax Z-Bandar 250 mg 2 tablet by Oral route 1 time per day for 1 days then take 1 tab daily on days 2-5 Mar, Active diethylpropion 75 mg take 1 tablet by Oral route , in midmorning 1 time per day for 30 days DX OBESITY Jul, Active Levaquin 500 mg 1 tablet by Oral route every 24 hours for 10 days Apr, Active Flagyl 500 mg 1 tablet by Oral route 2 times per day for 7 days May, Active Gas-X 80 mg Feb, Active Omeprazole 20 mg 1 capsule by Oral route 1 time per day Jun, Active Cipro 500 mg 1 tablet by Oral route every 12 hours for 7 day(s) Feb, Active MiraLax 17 gram/dose take 17 g mixed with 8 oz. water or juice by Oral route 1 time per day PRN Oct, Active Loratadine 10 mg take 1 tablet by Oral route 1 time per day take at hs Feb, Active Doxycycline Hyclate 100 mg take 1 tablet (100 mg) by oral route 2 times per day for 10 days September, Active Terazol 7 0.4 % 1 appful by Vaginal route 1 time per day for 7 days Oct, Active Azithromycin 250 mg 2 Tablet by Oral route on day 1 then take 1 daily for 4 days May, Active minocycline 50 mg 50 mg by Oral route 1 time per day for 90 daysBegin taking after doxycycline course complete September, Active Bystolic 10 mg take 1 tablet (10 mg) by oral route once daily May, Active Lisinopril-Hydrochlorothiazide 20-12.5 mg take 1 tablet by Oral route 1 time per day Take in AM Jun, Active Promethazine-Codeine 6.25-10 mg/5 mL 5 mL by Oral route every 4 hours for 5 day(s)PRN May, Active Alprazolam 1 mg take 1 tablet by Oral route 3 times per day PRN Jul, Active Ultram 50 mg 1 tablet by Oral route every 6 hours PRN use for severe pain Jul, Active Bactrim DS 800-160 mg 1 tablet by Oral route 2 times per day for 10 day(s) Dec, Active Hibiclens 4 % 1 kranthi by Topical route 1 for 7 day(s) Jan, Active RESULTS No Results PROCEDURES No Known [...]
--- OUTSIDE RECORDS SUMMARY | 2018-09-28 04:05 | XMS REPORT ---
Author Author Migration, Doctor Organization [facility] Address Unknown Phone Unavailable Care Team Providers Care Sensitizer Name Role Phone Migration, Doctor Unavailable Unavailable PROBLEMS Type Condition ICD9-CM Code JME11-SO Code Onset Dates Condition Status SNOMED Code Problem Irritable bowel syndrome without diarrhea K58.9 Active 73005960 Problem Essential hypertension I10 Active 75254805 Problem Bilateral low back pain without sciatica M54.5 Active 522325135 Problem Morbid (severe) obesity due to excess calories E66.01 Active 911733034 Problem Hypertriglyceridemia E78.1 Active 043281054 Problem Dysuria R30.0 Active 61628505 Problem Anxiety F41.9 Active 24667606 Problem Pre-diabetes R73.03 Active 197228880 Problem Alternating constipation and diarrhea R19.8 Active 052918821 Problem Body mass index (BMI) of 40.0-44.9 in adult Z68.41 Active 980645326 ALLERGIES No Information ENCOUNTERS Encounter Location Date Diagnosis [facility], [place] [address] [address] Jul, [facility], [place] [id number] [place] [address] Jul, [facility], [place] [id number] [place] [address] Jun, [facility], [place] [id number] [place] [address] Jun, Acute vaginitis N76.0 ; Dermatitis L30.9 ; BMI 40.0-44.9, adult Z68.41 and Morbid obesity E66.01 [facility] [id number] [place] [address] Jun, Vaginal discharge N89.8 ; Urinary tract infection without hematuria, site unspecified N39.0 and BMI 40.0-44.9, adult Z68.41 [facility], [place] [address] [address] May, [facility], [place] [id number] [place] [address] May, [facility], [place] [id number] [place] [address] 18 Apr, 2018 Urinary tract infection, site not specified N39.0 [facility], [place] [id number] [place] [address] 13 Apr, 2018 Dysuria R30.0 ; Urinary tract infection, site not specified N39.0 and Hematuria, unspecified R31.9 [facility] [id number] [place] [address] Mar, [facility] [id number] [place] [address] Mar, Left anterior knee pain M25.562 ; Abscess of buttock, left L02.31 and BMI 40.0-44.9, adult Z68.41 [facility] [id number] [place] [address] Mar, [facility] [id number] [place] [address] Feb, Abrasion of right ear canal, initial encounter S00.411A ; Left wrist pain M25.532 ; Right acute serous otitis media, recurrence not specified H65.01 and BMI 40.0-44.9, adult Z68.41 [facility], [place] [id number] [place] [address] Jan, [facility], [place] [id number] [place] [address] Jan, [facility], [place] [id number] [place] [address] Jan, BMI 40.0-44.9, adult Z68.41 ; Pre-diabetes R73.03 ; Essential hypertension I10 ; Morbid (severe) obesity due to excess calories E66.01 ; Bilateral low back pain without sciatica M54.5 and Heartburn R12 [facility] [id number] [place] [address] 19 Jan, 2018 History of UTI Z87.440 ; Well woman exam with routine gynecological exam Z01.419 ; Screening for breast cancer Z12.31 ; Candidal vaginitis B37.3 and BMI 40.0-44.9, adult Z68.41 [facility] [id number] [place] [address] 05 Jan, 2018 [facility] [id number] [place] [address] Jan, Dysuria R30.0 ; Acute cystitis with hematuria N30.01 ; Yeast infection B37.9 and BMI 40.0-44.9, adult Z68.41 [facility] [id number] [place] [address] Dec, [facility] [id number] [place] [address] Dec, [facility] [id number] [place] [address] Nov, History of UTI Z87.440 [facility] [id number] [place] [address] Nov, UTI symptoms R39.9 ; Acute nasopharyngitis J00 and BMI 40.0-44.9, adult Z68.41 [facility], [place] [address] [address] Nov, [facility] [id number] [place] [address] Nov, Yeast infection involving the vagina and surrounding area B37.3 [facility] [id number] [place] [address] Nov, Yeast infection involving the vagina and surrounding area B37.3 [facility], [place] [id number] [place] [address] Nov, Yeast infection involving the vagina and surrounding area B37.3 ; Body mass index (BMI) of 40.0-44.9 in adult Z68.41 and Morbid (severe) obesity due to excess calories E66.01 [facility] [id number] [place] [address] Oct, Abscess of groin, left L02.214 and Pre-diabetes R73.03 [facility] [id number] [place] [address] September, Pre-diabetes R73.03 [facility] [id number] [place] [address] Aug, [place] [address] [address] Jul, Bilateral low back pain without sciatica M54.5 [facility] [id number] [place] [address] Jun, [facility] [id number] [place] [address] Jun, [facility] [id number] [place] [address] Jun, [facility] [id number] [place] [address] May, [facility] [id number] [place] [address] May, Ingrown left greater toenail L60.0 [facility] [id number] [place] [address] May, [facility] [id number] [place] [address] May, Influenza A J10.1 ; Fever R50.9 and Body aches R52 [facility], [place] [id number] [place] [address] Apr, [facility], [place] [id number] [place] [address] Apr, [facility], [place] [id number] [place] [address] Apr, [facility], [place] [address] [address] Apr, Abscess L02.91 and Obesity (BMI 30-39.9) E66.9 [facility] [id number] [place] [address] Apr, [facility], [place] [id number] [place] [address] Apr, [facility], [place] [id number] [place] [address] Mar, Acute non-recurrent maxillary sinusitis J01.00 [facility] [place] [id number] [place] [address] Feb, Heartburn R12 [facility] [id number] [place] [address] Feb, Heartburn R12 ; Low back pain M54.5 ; Essential hypertension I10 ; Bilateral low back pain without sciatica M54.5 ; Anxiety F41.9 ; Pre-diabetes R73.03 ; Other obesity due to excess calories E66.09 ; Alternating constipation and diarrhea R19.8 ; Dyspepsia R10.13 ; Generalized abdominal pain R10.84 ; Rhinosinusitis J32.9 and Boil L02.92 [facility], [place] [id number] [place] [phone] Jan, Heartburn R12 [facility], [place] [id number] [place] [address] Jan, [facility] [place] [id number] [place] [address] Jan, [place] [address] [address] Jan, Acute seasonal allergic rhinitis due to pollen J30.1 and Irritable bowel syndrome without diarrhea K58.[address] [address] Dec, Low back pain M54.5 and Acute cystitis with hematuria N30.01 [facility] [id number] [place] [address] Dec, Low back pain M54.5 and Acute cystitis with hematuria N30.01 [facility] [id number] [place] [address] Dec, Heartburn R12 ; Essential hypertension I10 ; Acute non-recurrent maxillary sinusitis J01.00 ; Bilateral low back pain without sciatica M54.5 ; Anxiety F41.9 ; Pre-diabetes R73.03 ; Pain in right foot M79.671 ; Pain in left foot M79.672 ; Other obesity due to excess calories E66.09 and Acute cystitis with hematuria N30.01 [facility] [id number] [place] [address] Dec, Bilateral low back pain without sciatica M54.5 ; Acute non-recurrent maxillary sinusitis J01.00 and Pre-diabetes R73.03 [facility] [id number] [place] [address] Oct, [facility] [address] [place] [address] Aug, [facility] [place] [id number] [place] [address] Aug, Acute vaginitis N76.0 ; Urinary frequency R35.0 ; Screen for STD (sexually transmitted disease) Z11.3 and Abscess L02.[id number] [place] [address] Aug, Plantar wart of right foot B07.0 [facility], [place] [address] [address] Jul, Plantar wart of right foot B07.0 [facility], [place] [id number] [place] [address] Jun, [facility], [place] [address] [address] Jun, Heartburn R12 ; Essential hypertension I10 ; Anxiety F41.9 ; Folliculitis L73.9 and Plantar wart of right foot B07.0 [place] [id number] [place] [address] Jun, [facility] [address] [address] May, Low back pain M54.5 and Other chronic pain G89.29 [place] [address] [address] May, [place] [id number] [place] [address] May, [facility], [place] [id number] [place] [address] May, Heartburn R12 ; Bilateral low back pain without sciatica M54.5 ; Essential hypertension I10 ; Long-term use of high-risk medication Z79.899 ; Anxiety F41.9 ; Impacted cerumen of right ear H61.21 ; Folliculitis L73.9 ; High risk bisexual behavior Z72.53 and General medical exam Z00.00 [facility], [place] [id number] [place] [address] May, [facility], [place] [id number] [place] [address] May, [facility], [place] [id number] [place] [address] Mar, Acute nasopharyngitis J00 ; Acute intractable tension-type headache G44.201 and Cough R05 [facility], [place] [address], [place] [address] Jan, [facility] [id number] [place] [address] Jan, Abscess L02.91 [facility] [id number] [place] [address] Jan, Urinary urgency R39.15 and Urinary tract infection without hematuria, site unspecified N39.0 [place] [place] [id number] [place] [address] Jan, [place] [id number] [place] [address] Jan, [facility], [place] [id number] [place] [address] Dec, [place] [id number] [place] [address] Dec, Dermatofibroma D23.9 [place] [place] [id number] [place] [address] September, [facility] [place] [id number] [place] [address] Aug, [place] [id number] [place] [address] Aug, Pain in left knee M25.562 ; Heartburn R12 ; Bilateral low back pain without sciatica M54.5 ; Essential hypertension I10 ; Ingrown left big toenail L60.0 ; Chronic pain G89.29 ; Irritable bowel syndrome with constipation K58.9 and Skin infection L08.9 [place] [id number] [place] [phone] Aug, [facility], [place] [address], [place] [address] Jul, [facility], [place] [id number] [place] [address] Jun, [facility], [place] [id number] [place] [address] Jun, [facility], [place] [id number] [place] [address] Jun, [facility], [place] [id number] [place] [address] Jun, [facility], [place] [id number] [place] [address] Jun, Upper respiratory infection J06.9 ; Bilateral low back pain without sciatica M54.5 and Headache R51 [facility], [place] [id number] [place] [address] May, [facility], [place] [id number] [place] [address] Apr, Bilateral low back pain without sciatica M54.5 ; Upper respiratory infection J06.9 and Yeast dermatitis B37.2 [facility], [place] [address], [place] [address] Apr, [facility], [place] [id number] [place] [address] Apr, [facility], [place] [id number] [place] [address] Feb, [facility], [place] [id number] [place] [address] Feb, [facility], [place] [address], [place] [address] Feb, [facility], [place] [id number] [place] [address] Feb, Essential hypertension I10 ; Heartburn R12 ; Irritable bowel syndrome without diarrhea K58.9 ; Bilateral low back pain, with sciatica presence unspecified M54.5 and Upper respiratory infection J06.9 [place] [id number] [place] [address] Feb, [place] [address] [address] Feb, Generalized anxiety disorder F41.1 and Grief F43.20 [place] [address] [address] Jan, [address] [address] Jan, Back pain 724.5 ; Upper respiratory infection 465.9 ; HTN (hypertension) 401.9 and Dyspepsia 536.8 [place] [id number] [place] [address] Dec, [place] [id number] [place] [address] Nov, Back pain 724.5 ; Abdominal pain, bilateral lower quadrant 789.03 ; GERD (gastroesophageal reflux disease) 530.81 ; Upper respiratory infection 465.9 ; Dysuria 788.1 and HTN (hypertension) 401.9 [place] [id number] [place] [address] Nov, [place] [id number] [place] [address] Nov, [place] [id number] [place] [address] Nov, [place] [id number] [place] [address] Nov, Cough 786.[address] [address] Nov, Cough 786.2 [facility], [place] [id number] [place] [address] Oct, Unspecified episodic mood disorder 296.90 and Anxiety disorder, unspecified 300.00 [facility], [place] [id number] [place] [address] Oct, Abdominal pain, left upper quadrant 789.02 ; Essential hypertension, benign 401.1 ; Irritable bowel syndrome 564.1 ; Abscess 682.9 ; Heartburn 787.1 ; Acute sinusitis, unspecified 461.9 ; Muscle spasm of back 724.8 ; Cough 786.2 and Skin tag 701.9 [facility], [place] [id number] [place] [address] September, [facility], [place] [id number] [place] [address] September, [facility], [place] [id number] [place] [address] September, [facility], [place] [id number] [place] [address] Aug, [facility], [place] [id number] [place] [address] Aug, [facility], [place] [id number] [place] [address] Jul, [facility], [place] [id number] [place] [address] Jul, [facility], [place] [id number] [place] [address] Jul, [facility], [place] [id number] [place] [address] Jul, [facility], [place] [id number] [place] [address] Jul, [facility], [place] [id number] [place] [address] Jul, [facility] [place] [facility] [address] [id number] [place] [address] Jul, [facility] [place] [facility] [address] [id number] [place] [address] Jul, [facility] [place] [facility] [address] [id number] [place] [address] Jul, [facility] [place] [facility] [address] [id number] [place] [address] Jul, [facility] [place] [facility] [address] [id number] [place] [address] Jul, [facility] [place] [facility] [address] [id number] [place] [address] Jul, [facility] [place] [facility] [address] [id number] [place] [address] Jul, [facility] [place] [facility] [address] [id number] [place] [address] Jul, [facility] [place] [facility] [address] [id number] [place] [address] Jul, [facility] [place] [facility] [address] [id number] [place] [address] Jul, [facility] [place] [facility] [address] [id number] [place] [address] Jul, [facility] [place] [facility] [address] [id number] [place] [address] Jun, [facility] [place] [facility] [address] [id number] [place] [address] Jun, [facility] [place] [facility] [address] [id number] [place] [address] Jun, [facility] [place] [facility] [address] [id number] [place] [address] Jun, [facility] [place] [facility] [address] [id number] [place] [address] 13 Jun, 2014 [facility] [place] [facility] [address] [id number] [place] [address] Jun, 2014 [facility] [place] [facility] [address] [id number] [place] [address] Jun, 2014 [facility] [place] [facility] [address] [id number] [place] [address] Jun, 2014 [facility] [place] [facility] [address] [id number] [place] [address] Apr, [facility] [place] [facility] [address] [id number] [place] [address] Apr, [facility] [place] [facility] [address] [id number] [place] [address] Apr, [facility] [place] [facility] [address] [id number] [place] [address] Apr, [facility] [place] [facility] [address] [id number] [place] [address] Apr, [facility] [place] [facility] [address] [id number] [place] [address] Apr, [facility] [place] [facility] [address] [id number] [place] [address] 15 Apr, 2014 [facility] [place] [facility] [address] [id number] [place] [address] 15 Apr, 2014 [facility] [place] [facility] [address] [id number] [place] [address] 12 Apr, 2014 [facility] [place] [facility] [address] [id number] [place] [address] Apr, [facility] [place] [facility] [address] [id number] [place] [address] 11 Apr, 2014 [facility] [place] [facility] [address] [id number], [place] [address] Apr, [facility] [place] [facility] [address] [id number] [place] [address] Apr, [facility] [place] [facility] [address] [id number] [place] [address] Apr, [facility] [place] [facility] [address] [facility] [id number] [place] [address] Apr, [facility] [place] [facility] [address] [id number] [place] [address] Feb, [facility] [place] [facility] [address] [id number] [place] [address] Feb, [facility] [place] [facility] [address] [id number] [place] [address] Feb, [facility] [place] [facility] [address] [id number] [place] [address] Feb, [facility] [place] [facility] [address] [id number] [place] [address] Feb, [facility] [place] [facility] [address] [id number] [place] [address] Feb, [facility] [place] [facility] [address] [id number] [place] [address] 08 Jan, 2013 [facility] [place] [facility] [address] [id number], [place] [address] 08 Sep, 2013 [facility] [place] [facility] [address] [id number], [place] [address] 05 Sep, 2013 [facility] [place] [facility] [address] [id number] [place] [address] 05 Sep, 2013 [facility] [place] [facility] [address] [id number] [place] [address] 05 Sep, 2013 [facility] [place] [facility] [address] [id number], [place] [address] 05 Sep, 2013 [facility] [place] [facility] [address] [id number] [place] [address] Dec, [facility] [place] [facility] [address] [id number] [place] [address] Dec, [facility] [place] [facility] [address] [id number] [place] [address] Dec, [facility] [place] [facility] [address] [id number] [place] [address] Dec, [facility] [place] [facility] [address] [id number] [place] [address] Nov, [facility] [place] [facility] [address] [id number] [place] [address] Nov, [facility] [place] [facility] [address] [id number] [place] [address] Nov, [facility] [place] [facility] [address] [id number] [place] [address] Nov, [facility] [place] [facility] [address] [id number] [place] [address] Nov, [facility] [place] [facility] [address] [id number] [place] [address] Nov, [facility] [place] [facility] [address] [id number] [place] [address] Nov, [facility] [place] [facility] [address] [id number] [place] [address] Nov, [facility] [place] [facility] [address] [id number] [place] [address] Oct, [facility] [place] [facility] [address] [id number] [place] [address] Oct, [facility] [place] [facility] [address] [id number] [place] [address] Oct, [facility] [place] [facility] [address] [id number] [place] [address] Oct, [facility] [place] [facility] [address] [id number] [place] [address] Oct, [facility] [place] [facility] [address] [id number] [place] [address] Oct, [facility] [place] [facility] [address] [id number] [place] [address] Oct, [facility] [place] [facility] [address] [id number] [place] [address] Oct, [facility] [place] [facility] [address] [id number] [place] [address] Oct, [facility] [place] [facility] [address] [id number] [place] [address] Oct, [facility] [place] [facility] [address] [id number] [place] [address] Oct, [facility] [place] [facility] [address] [id number] [place] [address] Oct, [facility] [place] [facility] [address] [id number] [place] [address] Oct, [facility] [place] [facility] [address] [id number] [place] [address] Oct, [facility] [place] [facility] [address] [id number] [address] Oct, [facility] [place] [facility] [address] [id number], [place] [address] 17 Oct, 2013 [facility] [place] [facility] [address] [id number] [place] [address] 16 Oct, 2013 [facility] [place] [facility] [address] [id number] [place] [address] 16 Oct, 2013 [facility] [place] [facility] [address] [id number][place] [address] 13 Oct, 2013 [facility] [place] [facility] [address] [id number], [place] [address] Oct, [facility] [place] [facility] [address] [id number] [place] [address] Oct, [facility] [place] [facility] [address] [id number] [place] [address] Oct, [facility] [place] [facility] [address] [id number] [place] [address] Oct, [facility] [place] [facility] [address] [id number] [place] [address] Oct, [facility] [place] [facility] [address] [id number] [place] [address] Oct, [facility] [place] [facility] [address] [id number] [place] [address] Oct, [facility] [place] [facility] [address] [id number] [place] [address] Oct, [facility] [place] [facility] [address] [id number] [place] [address] Oct, [facility] [place] [facility] [address] [id number] [place] [address] Oct, [facility] [place] [facility] [address] [id number] [place] [address] Oct, [facility] [place] [facility] [address] [id number] [place] [address] September, [facility] [place] [facility] [address] [id number] [place] [address] September, [facility] [place] [facility] [address] [id number] [place] [address] September, [facility] [place] [facility] [address] [id number] [place] [address] September, [facility] [place] [facility] [address] [id number] [place] [address] September, [facility] [place] [facility] [address] [id number] [place] [address] September, [facility] [address] [id number] [place] [address] September, [facility] [place] [facility] [address] [id number] [address] September, [facility] [place] [facility] [address] [id number] [place] [address] September, [facility] [place] [facility] [address] [id number] [place] [address] September, [facility] [place] [facility] [address] [id number] [place] [address] September, [facility] [place] [facility] [address] [id number] [place] [address] September, [facility] [place] [facility] [address] [id number] [place] [address] September, [facility] [place] [facility] [address] [id number] [place] [address] September, [facility] [place] [facility] [address] [id number] [place] [address] September, [facility] [place] [facility] [address] [id number] [place] [address] September, [facility] [place] [facility] [address] [id number] [place] [address] September, [facility] [place] [facility] [address] [id number] [place] [address] September, [facility] [place] [facility] [address] [id number] [place] [address] Aug, [facility] [place] [facility] [address] [id number] [place] [address] Aug, [facility] [place] [facility] [address] [id number] [place] [address] Aug, [facility] [place] [facility] [address] [id number] [place] [address] Aug, [facility] [place] [facility] [address] [id number] [place] [address] Aug, [facility] [place] [facility] [address] [id number] [place] [address] Aug, [facility] [place] [facility] [address] [id number] [place] [address] Jul, [facility] [place] [facility] [address] [id number] [place] [address] Jul, [facility] [place] [facility] [address] [id number] [place] [address] Jul, [facility] [place] [facility] [address] [id number] [place] [address] Jul, [facility] [place] [facility] [address] [id number] [place] [address] Jun, [facility] [place] [facility] [address] [id number] [place] [address] Jun, [facility] [place] [facility] [address] [id number] [place] [address] Jun, [facility] [place] [facility] [address] [id number] [place] [address] Jun, [facility] [place] [facility] [address] [id number] [place] [address] Mar, [facility] [place] [facility] [address] [id number] [place] [address] Mar, [facility] [place] [facility] [address] [id number] [place] [address] Mar, [facility] [place] [facility] [address] [id number] [place] [address] Mar, [facility] [place] [facility] [address] [id number] [place] [address] Feb, [facility] [address] [id number] [place] [address] Feb, [facility] [address] [id number] [place] [address] Feb, [facility] [address] [id number] [place] [address] Jan, [facility] [address] [id number] [place] [address] Jan, [facility] [address] [id number] [place] [address] Jan, [facility] [address] [id number] [place] [address] Jan, [facility] [address] [id number] [place] [address] Dec, [facility] [address] [id number] [place] [address] Dec, [facility] [address] [id number] [place] [address] Dec, [facility] [address] [id number] [place] [address] Dec, [facility] [place] [place] [facility] [address] [id number] [place] [address] Nov, [facility] [address] [id number] [place] [address] Nov, [facility] [place] [facility] [address] [id number] [place] [address] Nov, [facility] [place] [facility] [address] [id number] [place] [address] Nov, [facility] [place] [facility] [address] [id number] [place] [address] Nov, [facility] [place] [facility] [address] [id number] [place] [address] Nov, [facility] [place] [facility] [address] [id number] [place] [address] Oct, [facility] [place] [facility] [address] [id number] [place] [address] Oct, [facility] [place] [facility] [address] [id number] [place] [address] Oct, [facility] [place] [facility] [address] [id number] [place] [address] Oct, [facility] [place] [facility] [address] [id number] [place] [address] 17 Oct, 2012 [facility] [place] [facility] [address] [id number] [place] [address] 16 Oct, 2012 [facility] [place] [facility] [address] [id number] [place] [address] 14 Oct, 2012 [facility] [place] [facility] [address] [id number] [place] [address] Oct, [facility] [place] [facility] [address] [id number] [place] [address] Oct, [facility] [place] [facility] [address] [id number] [place] [address] Oct, [facility] [place] [facility] [address] [id number], [place] [address] September, [facility] [place] [facility] [address] [id number] [place] [address] September, [facility] [place] [facility] [address] [id number] [place] [address] September, [facility] [place] [facility] [address] [id number], [place] [address] Aug, [facility] [place] [facility] [address] [id number], [place] [address] Aug, [facility] [address] [id number] [place] [address] Aug, [facility] [address] [id number] [place] [address] Aug, [facility] [address] [id number] [place] [address] Jul, [facility] [address] [id number] [place] [address] Jul, [facility] [address] [id number] [place] [address] Jul, [facility] [address] [id number] [place] [address] Jul, [facility] [address] [id number] [place] [address] Jul, [facility] [address] [id number] [place] [address] Jul, [facility] [address] [id number] [place] [address] May, [facility] [address] [id number] [place] [address] May, [facility] [address] [id number] [place] [address] May, [facility] [place] [facility] [address] [id number] [place] [address] May, [facility] [place] [facility] [address] [id number] [place] [address] May, [facility] [place] [facility] [address] [id number] [place] [address] May, [facility] [place] [facility] [address] [id number] [place] [address] May, [facility] [place] [facility] [address] [id number] [place] [address] 18 May, 2012 [facility] [place] [facility] [address] [id number] [place] [address] 17 May, 2012 [facility] [place] [facility] [address] [id number] [place] [address] 17 May, 2012 [facility] [place] [facility] [address] [id number] [place] [address] 16 May, 2012 [facility] [place] [facility] [address] [id number] [place] [address] Apr, [facility] [place] [facility] [address] [id number] [place] [address] Apr, [facility] [place] [facility] [address] [id number] [place] [address] Apr, [facility] [place] [facility] [address] [id number] [place] [address] Apr, [facility] [place] [facility] [address] [id number] [place] [address] Apr, [facility] [place] [facility] [address] [id number] [place] [address] Apr, [facility] [place] [facility] [address] [id number] [place] [address] Mar, [facility] [place] [facility] [address] [id number] [place] [address] Mar, [facility] [place] [facility] [address] [id number] [place] [address] Mar, [facility] [place] [facility] [address] [id number] [place] [address] Mar, [facility] [place] [facility] [address] [id number] [place] [address] Mar, [facility] [place] [facility] [address] [id number] [place] [address] Mar, [facility] [place] [facility] [address] [id number] [place] [address] 06 Mar, 2012 [facility] [place] [facility] [address] [id number] [place] [address] Mar, [facility] [place] [facility] [address] [id number] [place] [address] Feb, [facility] [place] [facility] [address] [id number] [place] [address] 23 Feb, 2012 [facility] [place] [facility] [address] [id number] [place] [address] 16 Feb, 2012 [facility] [place] [facility] [address] [id number] [place] [address] 15 Feb, 2012 [facility] [place] [facility] [address] [id number] [place] [address] 15 Feb, 2012 [facility] [place] [facility] [address] [id number], [place] [address] 13 Feb, 2012 [facility] [place] [facility] [address] [id number], [place] [address] Feb, [facility] [place] [facility] [address] [id number], [place] [address] Feb, [facility] [place] [facility] [address] [id number], [place] [address] Feb, [facility] [place] [facility] [address] [id number], [place] [address] Feb, [facility] [place] [facility] [address] [id number], [place] [address] Feb, [facility] [place] [facility] [address] [id number], [place] [address] Feb, [facility] [place] [facility] [address] [id number], [place] [address] Feb, [facility] [place] [facility] [address] [id number] [place] [address] 11 Feb, 2012 [facility] [place] [facility] [address] [id number] [place] [address] 11 Feb, 2012 [facility] [place] [facility] [address] [id number] [place] [address] 11 Feb, 2012 [facility] [place] [facility] [address] [id number] [place] [address] Feb, [facility] [place] [facility] [address] [id number] [place] [address] 04 Feb, 2012 [facility] [place] [facility] [address] [id number] [place] [address] 19 Jan, 2012 [facility] [place] [facility] [address] [id number] [place] [address] 13 Jan, 2012 [facility] [place] [facility] [address] [id number] [place] [address] 11 Jan, 2012 [facility] [place] [facility] [address] [id number] [place] [address] 10 Jan, 2012 [facility] [place] [facility] [address] [id number] [place] [address] 05 Jan, 2012 [facility] [place] [facility] [address] [id number] [place] [address] Dec, [facility] [place] [facility] [address] [id number] [place] [address] Dec, [facility] [place] [facility] [address] [id number] [place] [address] Dec, [facility] [place] [facility] [address] [id number] [place] [address] Dec, [facility] [place] [facility] [address] [id number] [place] [address] Dec, [facility] [place] [facility] [address] [id number] [place] [address] Dec, [facility] [place] [facility] [address] [id number] [place] [address] Nov, [facility] [place] [facility] [address] [id number] [place] [address] Nov, [facility] [place] [facility] [address] [id number] [place] [address] Nov, [facility] [place] [facility] [address] [id number] [place] [address] Nov, [facility] [place] [facility] [address] [id number] [place] [address] Nov, [facility] [place] [facility] [address] [id number] [place] [address] Oct, [facility] [place] [facility] [address] [id number] [place] [address] Oct, [facility] [place] [facility] [address] [id number] [place] [address] Oct, [facility] [place] [facility] [address] [id number] [place] [address] September, [facility] [place] [facility] [address] [id number] [place] [address] September, [facility] [place] [facility] [address] [id number] [place] [address] September, [facility] [place] [facility] [address] [id number] [place] [address] September, [facility] [place] [facility] [address] [id number] [place] [address] September, [facility] [place] [facility] [address] [id number] [place] [address] September, [facility] [place] [facility] [address] [id number] [place] [address] Aug, [facility] [place] [facility] [address] [id number] [place] [address] Aug, [facility] [address] [id number] [place] [address] Aug, [facility] [address] [id number] [place] [address] Jun, [facility] [address] [id number] [place] [address] Jun, [facility] [address] [id number] [place] [address] Jun, [facility] [address] [id number] [place] [address] Jun, [facility] [address] [id number] [place] [address] May, [facility] [address] [id number] [place] [address] May, [facility] [address] [id number] [place] [address] May, [facility] [address] [facility] [id number] [place] [address] May, [facility] [address] [facility] [id number] [place] [address] May, [facility] [address] [id number] [address] Apr, [facility] [address] [id number] [place] [address] Apr, [facility] [address] [id number] [place] [address] Apr, [facility] [place] [facility] [address] [id number] [place] [address] Apr, [facility] [address] [facility] [id number] [place] [address] Apr, [facility] [place] [facility] [address] [id number] [place] [address] 16 Apr, 2011 [facility] [place] [facility] [address] [id number] [place] [address] 16 Apr, 2011 [facility] [place] [facility] [address] [id number] [place] [address] Mar, [facility] [place] [facility] [address] [id number] [place] [address] Mar, [facility] [place] [facility] [address] [id number] [place] [address] Mar, [facility] [place] [facility] [address] [id number] [place] [address] Feb, [facility] [place] [facility] [address] [id number] [place] [address] Feb, [facility] [place] [facility] [address] [id number] [place] [address] Feb, [facility] [place] [facility] [address] [id number] [place] [address] Feb, [facility] [place] [facility] [address] [id number] [place] [address] Feb, [facility] [place] [facility] [address] [id number] [place] [address] 17 Feb, 2011 [facility] [place] [facility] [address] [id number] [place] [address] Jan, [facility] [place] [facility] [address] [id number] [place] [address] Jan, [facility] [place] [facility] [address] [id number] [place] [address] September, [facility] [place] [facility] [address] [id number] [place] [address] Jun, [facility] [place] [facility] [address] [id number] [place] [address] Apr, [facility] [place] [id number] [address] Apr, [facility] [place] [id number] [place] [address] Apr, [facility] [place] [id number] [address] Apr, [facility] [place] [id number] [place] [address] Apr, [facility] [place] [id number] [place] [address] Mar, [facility] [place] [id number] [place] [address] Mar, [facility] [place] [id number] [place] [address] Mar, [facility] [place] [id number] [place] [address] Mar, [facility] [place] [id number] [address] Feb, [facility] [place] [id number] [address] 15 Jan, 2010 [facility] [place] [id number] [address] Mar, [facility] [place] [id number] [place] [address] 15 Jan, 2009 [facility] [place] [id number] [address] Oct, [facility] [place] [id number] [place] [address] Apr, IMMUNIZATIONS No Known Immunizations SOCIAL HISTORY Never Assessed REASON FOR VISIT EMR-[facility] PLAN OF CARE VITAL SIGNS MEDICATIONS Unknown [...]
--- OUTSIDE RECORDS SUMMARY | 2018-09-28 04:06 | XMS REPORT ---
Author Author Migration, Doctor Organization [facility] Address Unknown Phone Unavailable Care Team Providers Care Miscellaneous Machine Operator Name Role Phone Migration, Doctor Unavailable Unavailable PROBLEMS Type Condition ICD9-CM Code NDC18-SF Code Onset Dates Condition Status SNOMED Code Problem Irritable bowel syndrome without diarrhea K58.9 Active 16494300 Problem Essential hypertension I10 Active 23764374 Problem Bilateral low back pain without sciatica M54.5 Active 584586058 Problem Morbid (severe) obesity due to excess calories E66.01 Active 722939363 Problem Hypertriglyceridemia E78.1 Active 226715274 Problem Dysuria R30.0 Active 61738190 Problem Anxiety F41.9 Active 72479879 Problem Pre-diabetes R73.03 Active 248287874 Problem Alternating constipation and diarrhea R19.8 Active 910728772 Problem Body mass index (BMI) of 40.0-44.9 in adult Z68.41 Active 672530053 ALLERGIES No Information ENCOUNTERS Encounter Location Date Diagnosis [facility] [address] [address] Jul, [facility] [id number] [place] [address] Jul, [facility] [id number] [place] [address] Jun, [facility] [id number] [place] [address] Jun, Acute vaginitis N76.0 ; Dermatitis L30.9 ; BMI 40.0-44.9, adult Z68.41 and Morbid obesity E66.01 [facility] [id number] [place] [address] Jun, Vaginal discharge N89.8 ; Urinary tract infection without hematuria, site unspecified N39.0 and BMI 40.0-44.9, adult Z68.41 [facility] [address] [address] May, [facility] [id number] [place] [address] May, [facility] [id number] [place] [address] 18 Apr, 2018 Urinary tract infection, site not specified N39.0 [facility] [id number] [place] [address] 13 Apr, 2018 Dysuria R30.0 ; Urinary tract infection, site not specified N39.0 and Hematuria, unspecified R31.9 [facility] [id number] [place] [address] Mar, [facility] [id number] [place] [address] Mar, Left anterior knee pain M25.562 ; Abscess of buttock, left L02.31 and BMI 40.0-44.9, adult Z68.41 [facility] [id number] [place] [address] Mar, [facility] [id number] [place] [address] Feb, Abrasion of right ear canal, initial encounter S00.411A ; Left wrist pain M25.532 ; Right acute serous otitis media, recurrence not specified H65.01 and BMI 40.0-44.9, adult Z68.41 [facility] [id number] [place] [address] Jan, [facility] [id number] [place] [address] Jan, [facility] [id number] [place] [address] Jan, BMI 40.0-44.9, adult Z68.41 ; Pre-diabetes R73.03 ; Essential hypertension I10 ; Morbid (severe) obesity due to excess calories E66.01 ; Bilateral low back pain without sciatica M54.5 and Heartburn R12 [facility] [address] [place] [address] 19 Jan, 2018 History of UTI Z87.440 ; Well woman exam with routine gynecological exam Z01.419 ; Screening for breast cancer Z12.31 ; Candidal vaginitis B37.3 and BMI 40.0-44.9, adult Z68.41 [facility] [id number] [place] [address] 05 Jan, 2018 [facility] [id number] [place] [address] Jan, Dysuria R30.0 ; Acute cystitis with hematuria N30.01 ; Yeast infection B37.9 and BMI 40.0-44.9, adult Z68.41 [facility] [id number] [place] [address] Dec, [facility] [id number] [place] [address] Dec, [facility] [id number] [place] [address] Nov, History of UTI Z87.440 [facility] [id number] [place] [address] Nov, UTI symptoms R39.9 ; Acute nasopharyngitis J00 and BMI 40.0-44.9, adult Z68.41 [facility] [address] [address] Nov, [facility] [id number] [place] [address] Nov, Yeast infection involving the vagina and surrounding area B37.3 [facility] [id number] [place] [address] Nov, Yeast infection involving the vagina and surrounding area B37.3 [facility] [id number] [place] [address] Nov, Yeast infection involving the vagina and surrounding area B37.3 ; Body mass index (BMI) of 40.0-44.9 in adult Z68.41 and Morbid (severe) obesity due to excess calories E66.01 [facility] [id number] [place] [address] Oct, Abscess of groin, left L02.214 and Pre-diabetes R73.03 [facility] [id number] [place] [address] September, Pre-diabetes R73.03 [facility] [id number] [place] [address] Aug, [facility] [address] [address] Jul, Bilateral low back pain without sciatica M54.5 [facility] [id number] [place] [address] Jun, [facility] [id number] [place] [address] Jun, [facility] [id number] [place] [address] Jun, [facility] [id number] [place] [address] May, [facility] [id number] [place] [address] May, Ingrown left greater toenail L60.0 [facility] [id number] [place] [address] May, [facility] [id number] [place] [address] May, Influenza A J10.1 ; Fever R50.9 and Body aches R52 [facility] [id number] [place] [address] Apr, [facility] [id number] [place] [address] Apr, [facility] [id number] [place] [address] Apr, [facility] [address] [address] Apr, Abscess L02.91 and Obesity (BMI 30-39.9) E66.9 [facility] [id number] [place] [address] Apr, [facility] [id number] [place] [address] Apr, [facility] [id number] [place] [address] Mar, Acute non-recurrent maxillary sinusitis J01.00 [facility] [id number] [place] [address] Feb, Heartburn R12 [facility] [id number] [place] [address] Feb, Heartburn R12 ; Low back pain M54.5 ; Essential hypertension I10 ; Bilateral low back pain without sciatica M54.5 ; Anxiety F41.9 ; Pre-diabetes R73.03 ; Other obesity due to excess calories E66.09 ; Alternating constipation and diarrhea R19.8 ; Dyspepsia R10.13 ; Generalized abdominal pain R10.84 ; Rhinosinusitis J32.9 and Boil L02.92 [facility] [id number] [place] [address] Jan, Heartburn R12 [facility] [id number] [place] [address] Jan, [facility] [id number] [place] [address] Jan, [facility] [address] [address] Jan, Acute seasonal allergic rhinitis due to pollen J30.1 and Irritable bowel syndrome without diarrhea K58.[address] [address] Dec, Low back pain M54.5 and Acute cystitis with hematuria N30.01 [facility] [id number] [place] [address] Dec, Low back pain M54.5 and Acute cystitis with hematuria N30.01 [facility] [id number] [place] [address] Dec, Heartburn R12 ; Essential hypertension I10 ; Acute non-recurrent maxillary sinusitis J01.00 ; Bilateral low back pain without sciatica M54.5 ; Anxiety F41.9 ; Pre-diabetes R73.03 ; Pain in right foot M79.671 ; Pain in left foot M79.672 ; Other obesity due to excess calories E66.09 and Acute cystitis with hematuria N30.01 [facility] [id number] [place] [address] Dec, Bilateral low back pain without sciatica M54.5 ; Acute non-recurrent maxillary sinusitis J01.00 and Pre-diabetes R73.03 [facility] [id number] [place] [address] Oct, [facility] [address] [place] [address] Aug, [facility] [id number] [place] [address] Aug, Acute vaginitis N76.0 ; Urinary frequency R35.0 ; Screen for STD (sexually transmitted disease) Z11.3 and Abscess L02.[id number] [place] [address] Aug, Plantar wart of right foot B07.0 [facility] [address] [address] Jul, Plantar wart of right foot B07.0 [facility] [id number] [place] [address] Jun, [facility] [address] [address] Jun, Heartburn R12 ; Essential hypertension I10 ; Anxiety F41.9 ; Folliculitis L73.9 and Plantar wart of right foot B07.0 [facility] [id number] [place] [address] Jun, [facility] [address] [address] May, Low back pain M54.5 and Other chronic pain G89.29 [facility] [address] [address] May, [facility] [id number] [place] [address] May, [facility] [id number] [place] [address] May, Heartburn R12 ; Bilateral low back pain without sciatica M54.5 ; Essential hypertension I10 ; Long-term use of high-risk medication Z79.899 ; Anxiety F41.9 ; Impacted cerumen of right ear H61.21 ; Folliculitis L73.9 ; High risk bisexual behavior Z72.53 and General medical exam Z00.00 [facility] [id number] [place] [address] May, [facility] [id number] [place] [address] May, [facility] [address] [place] [address] Mar, Acute nasopharyngitis J00 ; Acute intractable tension-type headache G44.201 and Cough R05 [facility] [address] [address] Jan, [facility] [id number] [place] [address] Jan, Abscess L02.91 [facility] [id number] [place] [address] Jan, Urinary urgency R39.15 and Urinary tract infection without hematuria, site unspecified N39.0 [facility] [id number] [place] [address] Jan, [facility] [id number] [place] [address] Jan, [facility] [id number] [place] [address] Dec, [facility] [id number] [place] [address] Dec, Dermatofibroma D23.9 [facility] [id number] [place] [address] September, [facility] [id number] [place] [address] Aug, [facility] [id number] [place] [address] Aug, Pain in left knee M25.562 ; Heartburn R12 ; Bilateral low back pain without sciatica M54.5 ; Essential hypertension I10 ; Ingrown left big toenail L60.0 ; Chronic pain G89.29 ; Irritable bowel syndrome with constipation K58.9 and Skin infection L08.9 [facility] [id number] [place] [address] Aug, [facility] [address] [address] Jul, [facility] [id number] [place] [address] Jun, [facility] [id number] [place] [address] Jun, [facility] [id number] [place] [address] Jun, [facility] [id number] [place] [address] Jun, [facility] [id number] [place] [address] Jun, Upper respiratory infection J06.9 ; Bilateral low back pain without sciatica M54.5 and Headache R51 [facility] [id number] [place] [address] May, [facility] [id number] [place] [address] Apr, Bilateral low back pain without sciatica M54.5 ; Upper respiratory infection J06.9 and Yeast dermatitis B37.2 [facility] [address] [address] Apr, [facility] [id number] [place] [address] Apr, [facility] [address] [place] [address] Feb, [facility] [id number] [place] [address] Feb, [facility] [address] [address] Feb, [facility] [id number] [place] [address] Feb, Essential hypertension I10 ; Heartburn R12 ; Irritable bowel syndrome without diarrhea K58.9 ; Bilateral low back pain, with sciatica presence unspecified M54.5 and Upper respiratory infection J06.9 [facility] [id number] [place] [address] Feb, [facility] [address] [address] Feb, Generalized anxiety disorder F41.1 and Grief F43.20 [facility] [address] [address] Jan, [address] [address] Jan, Back pain 724.5 ; Upper respiratory infection 465.9 ; HTN (hypertension) 401.9 and Dyspepsia 536.8 [facility] [id number] [place] [address] Dec, [facility] [id number] [place] [address] Nov, Back pain 724.5 ; Abdominal pain, bilateral lower quadrant 789.03 ; GERD (gastroesophageal reflux disease) 530.81 ; Upper respiratory infection 465.9 ; Dysuria 788.1 and HTN (hypertension) 401.9 [facility] [id number] [place] [address] Nov, [facility] [id number] [place] [address] Nov, [facility] [id number] [place] [address] Nov, [facility] [id number] [place] [address] Nov, Cough 786.[address] [address] Nov, Cough 786.2 [facility] [id number] [place] [address] Oct, Unspecified episodic mood disorder 296.90 and Anxiety disorder, unspecified 300.00 [facility] [id number] [place] [address] Oct, Abdominal pain, left upper quadrant 789.02 ; Essential hypertension, benign 401.1 ; Irritable bowel syndrome 564.1 ; Abscess 682.9 ; Heartburn 787.1 ; Acute sinusitis, unspecified 461.9 ; Muscle spasm of back 724.8 ; Cough 786.2 and Skin tag 701.9 [facility] [id number] [place] [address] September, [facility] [id number] [place] [address] September, [facility] [id number] [place] [address] September, [facility] [id number] [place] [address] Aug, [facility] [id number] [place] [address] Aug, [facility] [id number] [place] [address] Jul, [facility] [id number] [place] [address] Jul, [facility] [id number] [place] [address] Jul, [facility] [id number] [place] [address] Jul, [facility] [id number] [place] [address] Jul, [facility] [id number] [place] [address] Jul, [facility] [place] [facility] [address] [id number] [place] [address] Jul, [facility] [place] [facility] [address] [id number] [place] [address] Jul, [facility] [place] [facility] [address] [id number] [place] [address] Jul, [facility] [place] [facility] [address] [id number] [place] [address] Jul, [facility] [place] [facility] [address] [id number] [place] [address] Jul, [facility] [place] [facility] [address] [id number] [place] [address] Jul, [facility] [place] [facility] [address] [id number] [place] [address] Jul, [facility] [place] [facility] [address] [id number] [place] [address] Jul, [facility] [place] [facility] [address] [id number] [place] [address] Jul, [facility] [place] [facility] [address] [id number] [place] [address] Jul, [facility] [place] [facility] [address] [id number] [place] [address] Jul, [facility] [place] [facility] [address] [id number] [place] [address] Jun, [facility] [place] [facility] [address] [id number] [place] [address] Jun, [facility] [place] [facility] [address] [id number] [place] [address] Jun, [facility] [place] [facility] [address] [id number] [place] [address] Jun, [facility] [place] [facility] [address] [id number] [place] [address] 13 Jun, 2014 [facility] [place] [facility] [address] [id number] [place] [address] Jun, 2014 [facility] [place] [facility] [address] [id number] [place] [address] Jun, 2014 [facility] [place] [facility] [address] [id number] [place] [address] Jun, 2014 [facility] [place] [facility] [address] [id number] [place] [address] Apr, [facility] [place] [facility] [address] [id number] [place] [address] Apr, [facility] [place] [facility] [address] [id number] [place] [address] Apr, [facility] [place] [facility] [address] [id number] [place] [address] Apr, [facility] [place] [facility] [address] [id number] [place] [address] Apr, [facility] [place] [facility] [address] [id number] [place] [address] Apr, [facility] [place] [facility] [address] [id number] [place] [address] 15 Apr, 2014 [facility] [place] [facility] [address] [id number] [place] [address] 15 Apr, 2014 [facility] [place] [facility] [address] [id number] [place] [address] 12 Apr, 2014 [facility] [place] [facility] [address] [id number] [place] [address] Apr, [facility] [place] [facility] [address] [id number] [place] [address] 11 Apr, 2014 [facility] [place] [facility] [address] [id number] [address] Apr, [facility] [place] [facility] [address] [id number] [place] [address] Apr, [facility] [place] [facility] [address] [id number] [place] [address] Apr, [facility] [place] [facility] [address] [facility] [id number] [place] [address] Apr, [facility] [place] [facility] [address] [id number] [place] [address] Feb, [facility] [place] [facility] [address] [id number] [place] [address] Feb, [facility] [place] [facility] [address] [id number] [place] [address] Feb, [facility] [place] [facility] [address] [id number] [place] [address] Feb, [facility] [place] [facility] [address] [id number] [place] [address] Feb, [facility] [place] [facility] [address] [id number] [place] [address] Feb, [facility] [place] [facility] [address] [id number] [place] [address] 08 Jan, 2013 [facility] [place] [facility] [address] [id number] [address] 08 Sep, 2013 [facility] [place] [facility] [address] [id number], [place] [address] 05 Sep, 2013 [facility] [place] [facility] [address] [id number] [place] [address] 05 Sep, 2013 [facility] [place] [facility] [address] [id number] [place] [address] 05 Sep, 2013 [facility] [place] [facility] [address] [id number] [address] 05 Sep, 2013 [facility] [place] [facility] [address] [id number] [place] [address] Dec, [facility] [place] [facility] [address] [id number] [place] [address] Dec, [facility] [place] [facility] [address] [id number] [place] [address] Dec, [facility] [place] [facility] [address] [id number] [place] [address] Dec, [facility] [place] [facility] [address] [id number] [place] [address] Nov, [facility] [place] [facility] [address] [id number] [place] [address] Nov, [facility] [place] [facility] [address] [id number] [place] [address] Nov, [facility] [place] [facility] [address] [id number] [place] [address] Nov, [facility] [place] [facility] [address] [id number] [place] [address] Nov, [facility] [place] [facility] [address] [id number] [place] [address] Nov, [facility] [place] [facility] [address] [id number] [place] [address] Nov, [facility] [place] [facility] [address] [id number] [place] [address] Nov, [facility] [place] [facility] [address] [id number] [place] [address] Oct, [facility] [place] [facility] [address] [id number] [place] [address] Oct, [facility] [place] [facility] [address] [id number] [place] [address] Oct, [facility] [place] [facility] [address] [id number] [place] [address] Oct, [facility] [place] [facility] [address] [id number] [place] [address] Oct, [facility] [place] [facility] [address] [id number] [place] [address] Oct, [facility] [place] [facility] [address] [id number] [place] [address] Oct, [facility] [place] [facility] [address] [id number] [place] [address] Oct, [facility] [place] [facility] [address] [id number] [place] [address] Oct, [facility] [place] [facility] [address] [id number] [place] [address] Oct, [facility] [place] [facility] [address] [id number] [place] [address] Oct, [facility] [place] [facility] [address] [id number] [place] [address] Oct, [facility] [place] [facility] [address] [id number] [place] [address] Oct, [facility] [place] [facility] [address] [id number] [place] [address] Oct, [facility] [place] [facility] [address] [id number] [address] Oct, [facility] [place] [facility] [address] [id number], [place] [address] 17 Oct, 2013 [facility] [place] [facility] [address] [id number] [place] [address] 16 Oct, 2013 [facility] [place] [facility] [address] [id number] [place] [address] 16 Oct, 2013 [facility] [place] [facility] [address] [id number], [place] [address] 13 Oct, 2013 [facility] [place] [facility] [address] [id number], [place] [address] Oct, [facility] [place] [facility] [address] [id number] [place] [address] Oct, [facility] [place] [facility] [address] [id number] [place] [address] Oct, [facility] [place] [facility] [address] [id number] [place] [address] Oct, [facility] [place] [facility] [address] [id number] [place] [address] Oct, [facility] [place] [facility] [address] [id number] [place] [address] Oct, [facility] [place] [facility] [address] [id number] [place] [address] Oct, [facility] [place] [facility] [address] [id number] [place] [address] Oct, [facility] [place] [facility] [address] [id number] [place] [address] Oct, [facility] [place] [facility] [address] [id number] [place] [address] Oct, [facility] [place] [facility] [address] [id number] [place] [address] Oct, [facility] [place] [facility] [address] [id number] [place] [address] September, [facility] [place] [facility] [address] [id number] [place] [address] September, [facility] [place] [facility] [address] [id number] [place] [address] September, [facility] [place] [facility] [address] [id number] [place] [address] September, [facility] [place] [facility] [address] [id number] [place] [address] September, [facility] [place] [facility] [address] [id number] [place] [address] September, [facility] [address] [id number] [place] [address] September, [facility] [place] [facility] [address] [id number] [place] [address] September, [facility] [place] [facility] [address] [id number] [place] [address] September, [facility] [place] [facility] [address] [id number] [place] [address] September, [facility] [place] [facility] [address] [id number] [place] [address] September, [facility] [place] [facility] [address] [id number] [place] [address] September, [facility] [place] [facility] [address] [id number] [place] [address] September, [facility] [place] [facility] [address] [id number] [place] [address] September, [facility] [place] [facility] [address] [id number] [place] [address] September, [facility] [place] [facility] [address] [id number] [place] [address] September, [facility] [place] [facility] [address] [id number] [place] [address] September, [facility] [place] [facility] [address] [id number] [place] [address] September, [facility] [place] [facility] [address] [id number] [place] [address] Aug, [facility] [place] [facility] [address] [id number] [place] [address] Aug, [facility] [place] [facility] [address] [id number] [place] [address] Aug, [facility] [place] [facility] [address] [id number] [place] [address] Aug, [facility] [place] [facility] [address] [id number] [place] [address] Aug, [facility] [place] [facility] [address] [id number] [place] [address] Aug, [facility] [place] [facility] [address] [id number] [place] [address] Jul, [facility] [place] [facility] [address] [id number] [place] [address] Jul, [facility] [place] [facility] [address] [id number] [place] [address] Jul, [facility] [place] [facility] [address] [id number] [place] [address] Jul, [facility] [place] [facility] [address] [id number] [place] [address] Jun, [facility] [place] [facility] [address] [id number] [place] [address] Jun, [facility] [place] [facility] [address] [id number] [place] [address] Jun, [facility] [place] [facility] [address] [id number] [place] [address] Jun, [facility] [place] [facility] [address] [id number] [place] [address] Mar, [facility] [place] [facility] [address] [id number] [place] [address] Mar, [facility] [place] [facility] [address] [id number] [place] [address] Mar, [facility] [place] [facility] [address] [id number] [place] [address] Mar, [facility] [place] [facility] [address] [id number] [place] [address] Feb, [facility] [address] [id number] [place] [address] Feb, [facility] [address] [id number] [place] [address] Feb, [facility] [address] [id number] [place] [address] Jan, [facility] [address] [id number] [place] [address] Jan, [facility] [address] [id number] [place] [address] Jan, [facility] [address] [id number] [place] [address] Jan, [facility] [address] [id number] [place] [address] Dec, [facility] [address] [id number] [place] [address] Dec, [facility] [address] [id number] [place] [address] Dec, [facility] [address] [id number] [place] [address] Dec, [facility] [place] [facility] [address] [id number] [place] [address] Nov, [facility] [address] [id number] [place] [address] Nov, [facility] [place] [facility] [address] [id number] [place] [address] Nov, [facility] [place] [facility] [address] [id number] [place] [address] Nov, [facility] [place] [facility] [address] [id number] [place] [address] Nov, [facility] [place] [facility] [address] [id number] [place] [address] Nov, [facility] [place] [facility] [address] [id number] [place] [address] Oct, [facility] [place] [facility] [address] [id number] [place] [address] Oct, [facility] [place] [facility] [address] [id number] [place] [address] Oct, [facility] [place] [facility] [address] [id number] [place] [address] Oct, [facility] [place] [facility] [address] [id number] [place] [address] 17 Oct, 2012 [facility] [place] [facility] [address] [id number] [place] [address] 16 Oct, 2012 [facility] [place] [facility] [address] [id number] [place] [address] 14 Oct, 2012 [facility] [place] [facility] [address] [id number] [place] [address] Oct, [facility] [place] [facility] [address] [id number] [place] [address] Oct, [facility] [place] [facility] [address] [id number] [place] [address] Oct, [facility] [place] [facility] [address] [id number], [place] [address] September, [facility] [place] [facility] [address] [id number] [place] [address] September, [facility] [place] [facility] [address] [id number] [place] [address] September, [facility] [place] [facility] [address] [id number], [place] [address] Aug, [facility] [place] [facility] [address] [id number], [place] [address] Aug, [facility] [address] [id number] [place] [address] Aug, [facility] [address] [id number] [place] [address] Aug, [facility] [address] [id number] [place] [address] Jul, [facility] [address] [id number] [place] [address] Jul, [facility] [address] [id number] [place] [address] Jul, [facility] [address] [id number] [place] [address] Jul, [facility] [address] [id number] [place] [address] Jul, [facility] [address] [id number] [place] [address] Jul, [facility] [address] [id number] [place] [address] May, [facility] [address] [id number] [place] [address] May, [facility] [address] [id number] [place] [address] May, [facility] [place] [facility] [address] [id number] [place] [address] May, [facility] [place] [facility] [address] [id number] [place] [address] May, [facility] [place] [facility] [address] [id number] [place] [address] May, [facility] [place] [facility] [address] [id number] [place] [address] May, [facility] [place] [facility] [address] [id number] [place] [address] 18 May, 2012 [facility] [place] [facility] [address] [id number] [place] [address] 17 May, 2012 [facility] [place] [facility] [address] [id number] [place] [address] 17 May, 2012 [facility] [place] [facility] [address] [id number] [place] [address] 16 May, 2012 [facility] [place] [facility] [address] [id number] [place] [address] Apr, [facility] [place] [facility] [address] [id number] [place] [address] Apr, [facility] [place] [facility] [address] [id number] [place] [address] Apr, [facility] [place] [facility] [address] [id number] [place] [address] Apr, [facility] [place] [facility] [address] [id number] [place] [address] Apr, [facility] [place] [facility] [address] [id number] [place] [address] Apr, [facility] [place] [facility] [address] [id number] [place] [address] Mar, [facility] [place] [facility] [address] [id number] [place] [address] Mar, [facility] [place] [facility] [address] [id number] [place] [address] Mar, [facility] [place] [facility] [address] [id number] [place] [address] Mar, [facility] [place] [facility] [address] [id number] [place] [address] Mar, [facility] [place] [facility] [address] [id number] [place] [address] Mar, [facility] [place] [facility] [address] [id number] [place] [address] 06 Mar, 2012 [facility] [place] [facility] [address] [id number] [place] [address] Mar, [facility] [place] [facility] [address] [id number] [place] [address] Feb, [facility] [place] [facility] [address] [id number] [place] [address] 23 Feb, 2012 [facility] [place] [facility] [address] [id number] [place] [address] 16 Feb, 2012 [facility] [place] [facility] [address] [id number] [place] [address] 15 Feb, 2012 [facility] [place] [facility] [address] [id number] [place] [address] 15 Feb, 2012 [facility] [place] [facility] [address] [id number], [place] [address] 13 Feb, 2012 [facility] [place] [facility] [address] [id number], [place] [address] Feb, [facility] [place] [facility] [address] [id number], [place] [address] Feb, [facility] [place] [facility] [address] [id number], [place] [address] Feb, [facility] [place] [facility] [address] [id number], [place] [address] Feb, [facility] [place] [facility] [address] [id number], [place] [address] Feb, [facility] [place] [facility] [address] [id number], [place] [address] Feb, [facility] [place] [facility] [address] [id number], [place] [address] Feb, [facility] [place] [facility] [address] [id number] [place] [address] 11 Feb, 2012 [facility] [place] [facility] [address] [id number] [place] [address] 11 Feb, 2012 [facility] [place] [facility] [address] [id number] [place] [address] 11 Feb, 2012 [facility] [place] [facility] [address] [id number] [place] [address] Feb, [facility] [place] [facility] [address] [id number] [place] [address] 04 Feb, 2012 [facility] [place] [facility] [address] [id number] [place] [address] 19 Jan, 2012 [facility] [place] [facility] [address] [id number] [place] [address] 13 Jan, 2012 [facility] [place] [facility] [address] [id number] [place] [address] 11 Jan, 2012 [facility] [place] [facility] [address] [id number] [place] [address] 10 Jan, 2012 [facility] [place] [facility] [address] [id number] [place] [address] 05 Jan, 2012 [facility] [place] [facility] [address] [id number] [place] [address] Dec, [facility] [place] [facility] [address] [id number] [place] [address] Dec, [facility] [place] [facility] [address] [id number] [place] [address] Dec, [facility] [place] [facility] [address] [id number] [place] [address] Dec, [facility] [place] [facility] [address] [id number] [place] [address] Dec, [facility] [place] [facility] [address] [id number] [place] [address] Dec, [facility] [place] [facility] [address] [id number] [place] [address] Nov, [facility] [place] [facility] [address] [id number] [place] [address] Nov, [facility] [place] [facility] [address] [id number] [place] [address] Nov, [facility] [place] [facility] [address] [id number] [place] [address] Nov, [facility] [place] [facility] [address] [id number] [place] [address] Nov, [facility] [place] [facility] [address] [id number] [place] [address] Oct, [facility] [place] [facility] [address] [id number] [place] [address] Oct, [facility] [place] [facility] [address] [id number] [place] [address] Oct, [facility] [place] [facility] [address] [id number] [place] [address] September, [facility] [place] [facility] [address] [id number] [place] [address] September, [facility] [place] [facility] [address] [id number] [place] [address] September, [facility] [place] [facility] [address] [id number] [place] [address] September, [facility] [place] [facility] [address] [id number] [place] [address] September, [facility] [place] [facility] [address] [id number] [place] [address] September, [facility] [place] [facility] [address] [id number] [place] [address] Aug, [facility] [place] [facility] [address] [id number] [place] [address] Aug, [facility] [address] [id number] [place] [address] Aug, [facility] [address] [id number] [place] [address] Jun, [facility] [address] [id number] [place] [address] Jun, [facility] [address] [id number] [place] [address] Jun, [facility] [address] [id number] [place] [address] Jun, [facility] [address] [id number] [place] [address] May, [facility] [address] [id number] [place] [address] May, [facility] [address] [id number] [place] [address] May, [facility] [address] [facility] [id number] [place] [address] May, [facility] [address] [facility] [place] [id number] [place] [address] May, [facility] [address] [id number], [place] [address] Apr, [facility] [address] [id number] [place] [address] Apr, [facility] [address] [id number] [place] [address] Apr, [facility] [place] [facility] [address] [id number] [place] [address] Apr, [facility] [address] [facility] [place] [id number] [place] [address] Apr, [facility] [place] [facility] [address] [id number] [place] [address] 16 Apr, 2011 [facility] [place] [facility] [address] [id number] [place] [address] 16 Apr, 2011 [facility] [place] [facility] [address] [id number] [place] [address] Mar, [facility] [place] [facility] [address] [id number] [place] [address] Mar, [facility] [place] [facility] [address] [id number] [place] [address] Mar, [facility] [place] [facility] [address] [id number] [place] [address] Feb, [facility] [place] [facility] [address] [id number] [place] [address] Feb, [facility] [place] [facility] [address] [id number] [place] [address] Feb, [facility] [place] [facility] [address] [id number] [place] [address] Feb, [facility] [place] [facility] [address] [id number] [place] [address] Feb, [facility] [place] [facility] [address] [id number] [place] [address] 17 Feb, 2011 [facility] [place] [facility] [address] [id number] [place] [address] Jan, [facility] [place] [facility] [address] [id number] [place] [address] Jan, [facility] [place] [facility] [address] [id number] [place] [address] September, [facility] [place] [facility] [address] [id number] [place] [address] Jun, [facility] [place] [facility] [address] [id number] [place] [address] Apr, [facility] [id number] [address] Apr, [facility] [id number] [place] [address] Apr, [facility] [id number] [address] Apr, [facility] [id number] [place] [id number] Apr, [facility] [id number] [place] [id number] Mar, [facility] [id number] [place] [id number] Mar, [facility] [id number] [place] [address] Mar, [facility] [id number] [place] [address] Mar, [facility] [id number] [address] Feb, [facility] [id number] [address] 15 Jan, 2010 [facility] [id number] [address] Mar, [facility] [id number] [address] 15 Jan, 2009 [facility] [id number] [place] [address] Oct, [facility] [id number] [address] Apr, IMMUNIZATIONS No Known Immunizations SOCIAL HISTORY [...]
--- OUTSIDE RECORDS SUMMARY | 2018-09-28 04:07 | XMS REPORT ---
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 Name Role Phone Migration, Doctor Unavailable Unavailable PROBLEMS Type Condition ICD9-CM Code ENS88-BQ Code Onset Dates Condition Status SNOMED Code Problem Irritable bowel syndrome without diarrhea K58.9 Active 32004306 Problem Essential hypertension I10 Active 62708706 Problem Bilateral low back pain without sciatica M54.5 Active 159671402 Problem Morbid (severe) obesity due to excess calories E66.01 Active 996517814 Problem Hypertriglyceridemia E78.1 Active 278729917 Problem Dysuria R30.0 Active 96162829 Problem Anxiety F41.9 Active 53325445 Problem Pre-diabetes R73.03 Active 428794007 Problem Alternating constipation and diarrhea R19.8 Active 073920907 Problem Body mass index (BMI) of 40.0-44.9 in adult Z68.41 Active [id number] ALLERGIES No Information ENCOUNTERS Encounter Location Date Diagnosis [facility] [address] [address] Jul, [facility] [id number] [place] [address] Jul, [facility] [id number] [place] [address] Jun, [facility] [id number] [place] [address] Jun, Acute vaginitis N76.0 ; Dermatitis L30.9 ; BMI 40.0-44.9, adult Z68.41 and Morbid obesity E66.01 [facility] [id number] [place] [address] Jun, Vaginal discharge N89.8 ; Urinary tract infection without hematuria, site unspecified N39.0 and BMI 40.0-44.9, adult Z68.41 [facility] [address] [address] May, [facility] [id number] [place] [address] May, [facility] [id number] [place] [address] 18 Apr, 2018 Urinary tract infection, site not specified N39.0 [facility] [id number] [place] [address] 13 Apr, 2018 Dysuria R30.0 ; Urinary tract infection, site not specified N39.0 and Hematuria, unspecified R31.9 [facility] [id number] [place] [address] Mar, [facility] [id number] [place] [address] Mar, Left anterior knee pain M25.562 ; Abscess of buttock, left L02.31 and BMI 40.0-44.9, adult Z68.41 [facility] [id number] [place] [address] Mar, [facility] [id number] [place] [address] Feb, Abrasion of right ear canal, initial encounter S00.411A ; Left wrist pain M25.532 ; Right acute serous otitis media, recurrence not specified H65.01 and BMI 40.0-44.9, adult Z68.41 [facility] [id number] [place] [address] Jan, [facility] [id number] [place] [address] Jan, [facility] [id number] [place] [address] Jan, BMI 40.0-44.9, adult Z68.41 ; Pre-diabetes R73.03 ; Essential hypertension I10 ; Morbid (severe) obesity due to excess calories E66.01 ; Bilateral low back pain without sciatica M54.5 and Heartburn R12 [facility] [id number] [place] [address] 19 Jan, 2018 History of UTI Z87.440 ; Well woman exam with routine gynecological exam Z01.419 ; Screening for breast cancer Z12.31 ; Candidal vaginitis B37.3 and BMI 40.0-44.9, adult Z68.41 [facility] [id number] [place] [address] 05 Jan, 2018 [facility] [id number] [place] [address] Jan, Dysuria R30.0 ; Acute cystitis with hematuria N30.01 ; Yeast infection B37.9 and BMI 40.0-44.9, adult Z68.41 [facility] [id number] [place] [address] Dec, [facility] [id number] [place] [address] Dec, [facility] [id number] [place] [address] Nov, History of UTI Z87.440 [facility] [id number] [place] [address] Nov, UTI symptoms R39.9 ; Acute nasopharyngitis J00 and BMI 40.0-44.9, adult Z68.41 [facility] [address], [place] [address] Nov, [facility] [id number] [place] [address] Nov, Yeast infection involving the vagina and surrounding area B37.3 [facility] [id number] [place] [address] Nov, Yeast infection involving the vagina and surrounding area B37.3 [facility] [id number] [place] [address] Nov, Yeast infection involving the vagina and surrounding area B37.3 ; Body mass index (BMI) of 40.0-44.9 in adult Z68.41 and Morbid (severe) obesity due to excess calories E66.01 [facility] [id number] [place] [address] Oct, Abscess of groin, left L02.214 and Pre-diabetes R73.03 [facility] [id number] [place] [address] September, Pre-diabetes R73.03 [facility] [id number] [place] [address] Aug, [facility] [address] [address] Jul, Bilateral low back pain without sciatica M54.5 [facility] [id number] [place] [address] Jun, [facility] [id number] [place] [address] Jun, [facility] [id number] [place] [address] Jun, [facility] [id number] [place] [address] May, [facility] [id number] [place] [address] May, Ingrown left greater toenail L60.0 [facility] [id number] [place] [address] May, [facility] [id number] [place] [address] May, Influenza A J10.1 ; Fever R50.9 and Body aches R52 [facility] [id number] [place] [address] Apr, [facility] [id number] [place] [address] Apr, [facility] [id number] [place] [address] Apr, [facility] [address] [address] Apr, Abscess L02.91 and Obesity (BMI 30-39.9) E66.9 [facility] [id number] [place] [address] Apr, [facility] [id number] [place] [address] Apr, [facility] [id number] [place] [address] Mar, Acute non-recurrent maxillary sinusitis J01.00 [facility] [id number] [place] [address] Feb, Heartburn R12 [facility] [id number] [place] [address] Feb, Heartburn R12 ; Low back pain M54.5 ; Essential hypertension I10 ; Bilateral low back pain without sciatica M54.5 ; Anxiety F41.9 ; Pre-diabetes R73.03 ; Other obesity due to excess calories E66.09 ; Alternating constipation and diarrhea R19.8 ; Dyspepsia R10.13 ; Generalized abdominal pain R10.84 ; Rhinosinusitis J32.9 and Boil L02.92 [facility] [id number] [place] [address] Jan, Heartburn R12 [facility] [id number] [place] [address] Jan, [facility] [id number] [place] [address] Jan, [facility] [address] [address] Jan, Acute seasonal allergic rhinitis due to pollen J30.1 and Irritable bowel syndrome without diarrhea K58.[address] [address] Dec, Low back pain M54.5 and Acute cystitis with hematuria N30.01 [facility] [id number] [place] [address] Dec, Low back pain M54.5 and Acute cystitis with hematuria N30.01 [facility] [id number] [place] [address] Dec, Heartburn R12 ; Essential hypertension I10 ; Acute non-recurrent maxillary sinusitis J01.00 ; Bilateral low back pain without sciatica M54.5 ; Anxiety F41.9 ; Pre-diabetes R73.03 ; Pain in right foot M79.671 ; Pain in left foot M79.672 ; Other obesity due to excess calories E66.09 and Acute cystitis with hematuria N30.01 [facility] [id number] [place] [address] Dec, Bilateral low back pain without sciatica M54.5 ; Acute non-recurrent maxillary sinusitis J01.00 and Pre-diabetes R73.03 [facility] [id number] [place] [address] Oct, [facility] [address] [place] [address] Aug, [facility] [place] [id number] [place] [address] Aug, Acute vaginitis N76.0 ; Urinary frequency R35.0 ; Screen for STD (sexually transmitted disease) Z11.3 and Abscess L02.[id number] [place] [address] Aug, Plantar wart of right foot B07.0 [facility] [address] [address] Jul, Plantar wart of right foot B07.0 [facility] [id number] [place] [address] Jun, [facility] [address] [address] Jun, Heartburn R12 ; Essential hypertension I10 ; Anxiety F41.9 ; Folliculitis L73.9 and Plantar wart of right foot B07.0 [facility] [id number] [place] [address] Jun, [facility] [address] [address] May, Low back pain M54.5 and Other chronic pain G89.29 [facility] [address] [address] May, [facility] [id number] [place] [address] May, [facility] [id number] [place] [address] May, Heartburn R12 ; Bilateral low back pain without sciatica M54.5 ; Essential hypertension I10 ; Long-term use of high-risk medication Z79.899 ; Anxiety F41.9 ; Impacted cerumen of right ear H61.21 ; Folliculitis L73.9 ; High risk bisexual behavior Z72.53 and General medical exam Z00.00 [facility] [id number] [place] [address] May, [facility] [id number] [place] [address] May, [facility] [address] [place] [address] Mar, Acute nasopharyngitis J00 ; Acute intractable tension-type headache G44.201 and Cough R05 [facility] [address], [place] [address] Jan, [facility] [id number] [place] [address] Jan, Abscess L02.91 [facility] [id number] [place] [address] Jan, Urinary urgency R39.15 and Urinary tract infection without hematuria, site unspecified N39.0 [facility] [id number] [place] [address] Jan, [facility] [id number] [place] [address] Jan, [facility] [id number] [place] [address] Dec, [facility] [id number] [place] [address] Dec, Dermatofibroma D23.9 [facility] [id number] [place] [address] September, [facility] [id number] [place] [address] Aug, [facility] [id number] [place] [address] Aug, Pain in left knee M25.562 ; Heartburn R12 ; Bilateral low back pain without sciatica M54.5 ; Essential hypertension I10 ; Ingrown left big toenail L60.0 ; Chronic pain G89.29 ; Irritable bowel syndrome with constipation K58.9 and Skin infection L08.9 [facility] [id number] [place] [address] Aug, [facility] [address], [place] [address] Jul, [facility] [id number] [place] [address] Jun, [facility] [id number] [place] [address] Jun, [facility] [id number] [place] [address] Jun, [facility] [id number] [place] [address] Jun, [facility] [id number] [place] [address] Jun, Upper respiratory infection J06.9 ; Bilateral low back pain without sciatica M54.5 and Headache R51 [facility] [id number] [place] [address] May, [facility] [id number] [place] [address] Apr, Bilateral low back pain without sciatica M54.5 ; Upper respiratory infection J06.9 and Yeast dermatitis B37.2 [facility] [address], [place] [address] Apr, [facility] [address] [place] [address] Apr, [facility] [address] [place] [address] Feb, [facility] [id number] [place] [address] Feb, [facility] [address], [place] [address] Feb, [facility] [id number] [place] [address] Feb, Essential hypertension I10 ; Heartburn R12 ; Irritable bowel syndrome without diarrhea K58.9 ; Bilateral low back pain, with sciatica presence unspecified M54.5 and Upper respiratory infection J06.9 [facility] [id number] [place] [address] Feb, [facility] [address] [address] Feb, Generalized anxiety disorder F41.1 and Grief F43.20 [facility] [address] [address] Jan, [address] [address] Jan, Back pain 724.5 ; Upper respiratory infection 465.9 ; HTN (hypertension) 401.9 and Dyspepsia 536.8 [facility] [id number] [place] [address] Dec, [facility] [id number] [place] [address] Nov, Back pain 724.5 ; Abdominal pain, bilateral lower quadrant 789.03 ; GERD (gastroesophageal reflux disease) 530.81 ; Upper respiratory infection 465.9 ; Dysuria 788.1 and HTN (hypertension) 401.9 [facility] [id number] [place] [address] Nov, [facility] [id number] [place] [address] Nov, [facility] [id number] [place] [address] Nov, [facility] [id number] [place] [address] Nov, Cough 786.[address] [address] Nov, Cough 786.2 [facility] [id number] [place] [address] Oct, Unspecified episodic mood disorder 296.90 and Anxiety disorder, unspecified 300.00 [facility] [id number] [place] [address] Oct, Abdominal pain, left upper quadrant 789.02 ; Essential hypertension, benign 401.1 ; Irritable bowel syndrome 564.1 ; Abscess 682.9 ; Heartburn 787.1 ; Acute sinusitis, unspecified 461.9 ; Muscle spasm of back 724.8 ; Cough 786.2 and Skin tag 701.9 [facility] [id number] [place] [address] September, [facility] [id number] [place] [address] September, [facility] [id number] [place] [address] September, [facility] [id number] [place] [address] Aug, [facility] [id number] [place] [address] Aug, [facility] [id number] [place] [address] Jul, [facility] [id number] [place] [address] Jul, [facility] [id number] [place] [address] Jul, [facility] [id number] [place] [address] Jul, [facility] [id number] [place] [address] Jul, [facility] [id number] [place] [address] Jul, [facility] [place] [facility] [address] [id number] [place] [address] Jul, [facility] [place] [facility] [address] [id number] [place] [address] Jul, [facility] [place] [facility] [address] [id number] [place] [address] Jul, [facility] [place] [facility] [address] [id number] [place] [address] Jul, [facility] [place] [facility] [address] [id number] [place] [address] Jul, [facility] [place] [facility] [address] [id number] [place] [address] Jul, [facility] [place] [facility] [address] [id number] [place] [address] Jul, [facility] [place] [facility] [address] [id number] [place] [address] Jul, [facility] [place] [facility] [address] [id number] [place] [address] Jul, [facility] [place] [facility] [address] [id number] [place] [address] Jul, [facility] [place] [facility] [address] [id number] [place] [address] Jul, [facility] [place] [facility] [address] [id number] [place] [address] Jun, [facility] [place] [facility] [address] [id number] [place] [address] Jun, [facility] [place] [facility] [address] [id number] [place] [address] Jun, [facility] [place] [facility] [address] [id number] [place] [address] Jun, [facility] [place] [facility] [address] [id number] [place] [address] 13 Jun, 2014 [facility] [place] [facility] [address] [id number] [place] [address] Jun, 2014 [facility] [place] [facility] [address] [id number] [place] [address] Jun, 2014 [facility] [place] [facility] [address] [id number] [place] [address] Jun, 2014 [facility] [place] [facility] [address] [id number] [place] [address] Apr, [facility] [place] [facility] [address] [id number] [place] [address] Apr, [facility] [place] [facility] [address] [id number] [place] [address] Apr, [facility] [place] [facility] [address] [id number] [place] [address] Apr, [facility] [place] [facility] [address] [id number] [place] [address] Apr, [facility] [place] [facility] [address] [id number] [place] [address] Apr, [facility] [place] [facility] [address] [id number] [place] [address] 15 Apr, 2014 [facility] [place] [facility] [address] [id number] [place] [address] 15 Apr, 2014 [facility] [place] [facility] [address] [id number] [place] [address] 12 Apr, 2014 [facility] [place] [facility] [address] [id number] [place] [address] Apr, [facility] [place] [facility] [address] [id number] [place] [address] 11 Apr, 2014 [facility] [place] [facility] [address] [id number] [address] Apr, [facility] [place] [facility] [address] [id number] [place] [address] Apr, [facility] [place] [facility] [address] [id number] [place] [address] Apr, [facility] [place] [facility] [address] [facility] [id number] [place] [address] Apr, [facility] [place] [facility] [address] [id number] [place] [address] Feb, [facility] [place] [facility] [address] [id number] [place] [address] Feb, [facility] [place] [facility] [address] [id number] [place] [address] Feb, [facility] [place] [facility] [address] [id number] [place] [address] Feb, [facility] [place] [facility] [address] [id number] [place] [address] Feb, [facility] [place] [facility] [address] [id number] [place] [address] Feb, [facility] [place] [facility] [address] [id number] [place] [address] 08 Jan, 2013 [facility] [place] [facility] [address] [id number], [place] [address] 08 Sep, 2013 [facility] [place] [facility] [address] [id number], [place] [address] 05 Sep, 2013 [facility] [place] [facility] [address] [id number] [place] [address] 05 Sep, 2013 [facility] [place] [facility] [address] [id number] [place] [address] 05 Sep, 2013 [facility] [place] [facility] [address] [id number], [place] [address] 05 Sep, 2013 [facility] [place] [facility] [address] [id number] [place] [address] Dec, [facility] [place] [facility] [address] [id number] [place] [address] Dec, [facility] [place] [facility] [address] [id number] [place] [address] Dec, [facility] [place] [facility] [address] [id number] [place] [address] Dec, [facility] [place] [facility] [address] [id number] [place] [address] Nov, [facility] [place] [facility] [address] [id number] [place] [address] Nov, [facility] [place] [facility] [address] [id number] [place] [address] Nov, [facility] [place] [facility] [address] [id number] [place] [address] Nov, [facility] [place] [facility] [address] [id number] [place] [address] Nov, [facility] [place] [facility] [address] [id number] [place] [address] Nov, [facility] [place] [facility] [address] [id number] [place] [address] Nov, [facility] [place] [facility] [address] [id number] [place] [address] Nov, [facility] [place] [facility] [address] [id number] [place] [address] Oct, [facility] [place] [facility] [address] [id number] [place] [address] Oct, [facility] [place] [facility] [address] [id number] [place] [address] Oct, [facility] [place] [facility] [address] [id number] [place] [address] Oct, [facility] [place] [facility] [address] [id number] [place] [address] Oct, [facility] [place] [facility] [address] [id number] [place] [address] Oct, [facility] [place] [facility] [address] [id number] [place] [address] Oct, [facility] [place] [facility] [address] [id number] [place] [address] Oct, [facility] [place] [facility] [address] [id number] [place] [address] Oct, [facility] [place] [facility] [address] [id number] [place] [address] Oct, [facility] [place] [facility] [address] [id number] [place] [address] Oct, [facility] [place] [facility] [address] [id number] [place] [address] Oct, [facility] [place] [facility] [address] [id number] [place] [address] Oct, [facility] [place] [facility] [address] [id number] [place] [address] Oct, [facility] [place] [facility] [address] [id number], [place] [address] Oct, [facility] [place] [facility] [address] [id number], [place] [address] 17 Oct, 2013 [facility] [place] [facility] [address] [id number] [place] [address] 16 Oct, 2013 [facility] [place] [facility] [address] [id number] [place] [address] 16 Oct, 2013 [facility] [place] [facility] [address] [id number], [place] [address] 13 Oct, 2013 [facility] [place] [facility] [address] [id number], [place] [address] Oct, [facility] [place] [facility] [address] [id number] [place] [address] Oct, [facility] [place] [facility] [address] [id number] [place] [address] Oct, [facility] [place] [facility] [address] [id number] [place] [address] Oct, [facility] [place] [facility] [address] [id number] [place] [address] Oct, [facility] [place] [facility] [address] [id number] [place] [address] Oct, [facility] [place] [facility] [address] [id number] [place] [address] Oct, [facility] [place] [facility] [address] [id number] [place] [address] Oct, [facility] [place] [facility] [address] [id number] [place] [address] Oct, [facility] [place] [facility] [address] [id number] [place] [address] Oct, [facility] [place] [facility] [address] [id number] [place] [address] Oct, [facility] [place] [facility] [address] [id number] [place] [address] September, [facility] [place] [facility] [address] [id number] [place] [address] September, [facility] [place] [facility] [address] [id number] [place] [address] September, [facility] [place] [facility] [address] [id number] [place] [address] September, [facility] [place] [facility] [address] [id number] [place] [address] September, [facility] [place] [facility] [address] [id number] [place] [address] September, [facility] [address] [id number] [place] [address] September, [facility] [place] [facility] [address] [id number] [place] [address] September, [facility] [place] [facility] [address] [id number] [place] [address] September, [facility] [place] [facility] [address] [id number] [place] [address] September, [facility] [place] [facility] [address] [id number] [place] [address] September, [facility] [place] [facility] [address] [id number] [place] [address] September, [facility] [place] [facility] [address] [id number] [place] [address] September, [facility] [place] [facility] [address] [id number] [place] [address] September, [facility] [place] [facility] [address] [id number] [place] [address] September, [facility] [place] [facility] [address] [id number] [place] [address] September, [facility] [place] [facility] [address] [id number] [place] [address] September, [facility] [place] [facility] [address] [id number] [place] [address] September, [facility] [place] [facility] [address] [id number] [place] [address] Aug, [facility] [place] [facility] [address] [id number] [place] [address] Aug, [facility] [place] [facility] [address] [id number] [place] [address] Aug, [facility] [place] [facility] [address] [id number] [place] [address] Aug, [facility] [place] [facility] [address] [id number] [place] [address] Aug, [facility] [place] [facility] [address] [id number] [place] [address] Aug, [facility] [place] [facility] [address] [id number] [place] [address] Jul, [facility] [place] [facility] [address] [id number] [place] [address] Jul, [facility] [place] [facility] [address] [id number] [place] [address] Jul, [facility] [place] [facility] [address] [id number] [place] [address] Jul, [facility] [place] [facility] [address] [id number] [place] [address] Jun, [facility] [place] [facility] [address] [id number] [place] [address] Jun, [facility] [place] [facility] [address] [id number] [place] [address] Jun, [facility] [place] [facility] [address] [id number] [place] [address] Jun, [facility] [place] [facility] [address] [id number] [place] [address] Mar, [facility] [place] [facility] [address] [id number] [place] [address] Mar, [facility] [place] [facility] [address] [id number] [place] [address] Mar, [facility] [place] [facility] [address] [id number] [place] [address] Mar, [facility] [place] [facility] [address] [id number] [place] [address] Feb, [facility] [address] [id number] [place] [address] Feb, [facility] [address] [id number] [place] [address] Feb, [facility] [address] [id number] [place] [address] Jan, [facility] [address] [id number] [place] [address] Jan, [facility] [address] [id number] [place] [address] Jan, [facility] [address] [id number] [place] [address] Jan, [facility] [address] [id number] [place] [address] Dec, [facility] [address] [id number] [place] [address] Dec, [facility] [address] [id number] [place] [address] Dec, [facility] [address] [id number] [place] [address] Dec, [facility] [place] [facility] [address] [id number] [place] [address] Nov, [facility] [address] [id number] [place] [address] Nov, [facility] [place] [facility] [address] [id number] [place] [address] Nov, [facility] [place] [facility] [address] [id number] [place] [address] Nov, [facility] [place] [facility] [address] [id number] [place] [address] Nov, [facility] [place] [facility] [address] [id number] [place] [address] Nov, [facility] [place] [facility] [address] [id number] [place] [address] Oct, [facility] [place] [facility] [address] [id number] [place] [address] Oct, [facility] [place] [facility] [address] [id number] [place] [address] Oct, [facility] [place] [facility] [address] [id number] [place] [address] Oct, [facility] [place] [facility] [address] [id number] [place] [address] 17 Oct, 2012 [facility] [place] [facility] [address] [id number] [place] [address] 16 Oct, 2012 [facility] [place] [facility] [address] [id number] [place] [address] 14 Oct, 2012 [facility] [place] [facility] [address] [id number] [place] [address] Oct, [facility] [place] [facility] [address] [id number] [place] [address] Oct, [facility] [place] [facility] [address] [id number] [place] [address] Oct, [facility] [place] [facility] [address] [id number], [place] [address] September, [facility] [place] [facility] [address] [id number] [place] [address] September, [facility] [place] [facility] [address] [id number] [place] [address] September, [facility] [place] [facility] [address] [id number], [place] [address] Aug, [facility] [place] [facility] [address] [id number], [place] [address] Aug, [facility] [address] [id number] [place] [address] Aug, [facility] [address] [id number] [place] [address] Aug, [facility] [address] [id number] [place] [address] Jul, [facility] [address] [id number] [place] [address] Jul, [facility] [address] [id number] [place] [address] Jul, [facility] [address] [id number] [place] [address] Jul, [facility] [address] [id number] [place] [address] Jul, [facility] [address] [id number] [place] [address] Jul, [facility] [address] [id number] [place] [address] May, [facility] [address] [id number] [place] [address] May, [facility] [address] [id number] [place] [address] May, [facility] [place] [facility] [address] [id number] [place] [address] May, [facility] [place] [facility] [address] [id number] [place] [address] May, [facility] [place] [facility] [address] [id number] [place] [address] May, [facility] [place] [facility] [address] [id number] [place] [address] May, [facility] [place] [facility] [address] [id number] [place] [address] 18 May, 2012 [facility] [place] [facility] [address] [id number] [place] [address] 17 May, 2012 [facility] [place] [facility] [address] [id number] [place] [address] 17 May, 2012 [facility] [place] [facility] [address] [id number] [place] [address] 16 May, 2012 [facility] [place] [facility] [address] [id number] [place] [address] Apr, [facility] [place] [facility] [address] [id number] [place] [address] Apr, [facility] [place] [facility] [address] [id number] [place] [address] Apr, [facility] [place] [facility] [address] [id number] [place] [address] Apr, [facility] [place] [facility] [address] [id number] [place] [address] Apr, [facility] [place] [facility] [address] [id number] [place] [address] Apr, [facility] [place] [facility] [address] [id number] [place] [address] Mar, [facility] [place] [facility] [address] [id number] [place] [address] Mar, [facility] [place] [facility] [address] [id number] [place] [address] Mar, [facility] [place] [facility] [address] [id number] [place] [address] Mar, [facility] [place] [facility] [address] [id number] [place] [address] Mar, [facility] [place] [facility] [address] [id number] [place] [address] Mar, [facility] [place] [facility] [address] [id number] [place] [address] 06 Mar, 2012 [facility] [place] [facility] [address] [id number] [place] [address] Mar, [facility] [place] [facility] [address] [id number] [place] [address] Feb, [facility] [place] [facility] [address] [id number] [place] [address] 23 Feb, 2012 [facility] [place] [facility] [address] [id number] [place] [address] 16 Feb, 2012 [facility] [place] [facility] [address] [id number] [place] [address] 15 Feb, 2012 [facility] [place] [facility] [address] [id number] [place] [address] 15 Feb, 2012 [facility] [place] [facility] [address] [id number], [place] [address] 13 Feb, 2012 [facility] [place] [facility] [address] [id number], [place] [address] Feb, [facility] [place] [facility] [address] [id number], [place] [address] Feb, [facility] [place] [facility] [address] [id number], [place] [address] Feb, [facility] [place] [facility] [address] [id number], [place] [address] Feb, [facility] [place] [facility] [address] [id number], [place] [address] Feb, [facility] [place] [facility] [address] [id number], [place] [address] Feb, [facility] [place] [facility] [address] [id number], [place] [address] Feb, [facility] [place] [facility] [address] [id number] [place] [address] 11 Feb, 2012 [facility] [place] [facility] [address] [id number] [place] [address] 11 Feb, 2012 [facility] [place] [facility] [address] [id number] [place] [address] 11 Feb, 2012 [facility] [place] [facility] [address] [id number] [place] [address] Feb, [facility] [place] [facility] [address] [id number] [place] [address] 04 Feb, 2012 [facility] [place] [facility] [address] [id number] [place] [address] 19 Jan, 2012 [facility] [place] [facility] [address] [id number] [place] [address] 13 Jan, 2012 [facility] [place] [facility] [address] [id number] [place] [address] 11 Jan, 2012 [facility] [place] [facility] [address] [id number] [place] [address] 10 Jan, 2012 [facility] [place] [facility] [address] [id number] [place] [address] 05 Jan, 2012 [facility] [place] [facility] [address] [id number] [place] [address] Dec, [facility] [place] [facility] [address] [id number] [place] [address] Dec, [facility] [place] [facility] [address] [id number] [place] [address] Dec, [facility] [place] [facility] [address] [id number] [place] [address] Dec, [facility] [place] [facility] [address] [id number] [place] [address] Dec, [facility] [place] [facility] [address] [id number] [place] [address] Dec, [facility] [place] [facility] [address] [id number] [place] [address] Nov, [facility] [place] [facility] [address] [id number] [place] [address] Nov, [facility] [place] [facility] [address] [id number] [place] [address] Nov, [facility] [place] [facility] [address] [id number] [place] [address] Nov, [facility] [place] [facility] [address] [id number] [place] [address] Nov, [facility] [place] [facility] [address] [id number] [place] [address] Oct, [facility] [place] [facility] [address] [id number] [place] [address] Oct, [facility] [place] [facility] [address] [id number] [place] [address] Oct, [facility] [place] [facility] [address] [id number] [place] [address] September, [facility] [place] [facility] [address] [id number] [place] [address] September, [facility] [place] [facility] [address] [id number] [place] [address] September, [facility] [place] [facility] [address] [id number] [place] [address] September, [facility] [place] [facility] [address] [id number] [place] [address] September, [facility] [place] [facility] [address] [id number] [place] [address] September, [facility] [place] [facility] [address] [id number] [place] [address] Aug, [facility] [place] [facility] [address] [id number] [place] [address] Aug, [facility] [address] [id number] [place] [address] Aug, [facility] [address] [id number] [place] [address] Jun, [facility] [address] [id number] [place] [address] Jun, [facility] [address] [id number] [place] [address] Jun, [facility] [address] [id number] [place] [address] Jun, [facility] [address] [id number] [place] [address] May, [facility] [address] [id number] [place] [address] May, [facility] [address] [id number] [place] [address] May, [facility] [address] [facility] [id number] [place] [address] May, [facility] [address] [facility] [id number] [place] [address] May, [facility] [address] [id number], [place] [address] Apr, [facility] [address] [id number] [place] [address] Apr, [facility] [address] [id number] [place] [address] Apr, [facility] [place] [facility] [address] [id number] [place] [address] Apr, [facility] [address] [facility] [id number] [place] [address] Apr, [facility] [place] [facility] [address] [id number] [place] [address] 16 Apr, 2011 [facility] [place] [facility] [address] [id number] [place] [address] 16 Apr, 2011 [facility] [place] [facility] [address] [id number] [place] [address] Mar, [facility] [place] [facility] [address] [id number] [place] [address] Mar, [facility] [place] [facility] [address] [id number] [place] [address] Mar, [facility] [place] [facility] [address] [id number] [place] [address] Feb, [facility] [place] [facility] [address] [id number] [place] [address] Feb, [facility] [place] [facility] [address] [id number] [place] [address] Feb, [facility] [place] [facility] [address] [id number] [place] [address] Feb, [facility] [place] [facility] [address] [id number] [place] [address] Feb, [facility] [place] [facility] [address] [id number] [place] [address] 17 Feb, 2011 [facility] [place] [facility] [address] [id number] [place] [address] Jan, [facility] [place] [facility] [address] [id number] [place] [address] Jan, [facility] [place] [facility] [address] [id number] [place] [address] September, [facility] [place] [facility] [address] [id number] [place] [address] Jun, [facility] [place] [facility] [address] [id number] [place] [address] Apr, [facility] [address] [place] [address] Apr, [facility] [id number] [place] [address] Apr, [facility] [id number], [place] [address] Apr, [facility] [id number] [place] [address] Apr, [facility] [id number] [place] [address] Mar, [facility] [id number] [place] [address] Mar, [facility] [id number] [place] [address] Mar, [facility] [id number] [place] [address] Mar, [facility] [id number] [address] Feb, [facility] [id number] [place] [address] 15 Jan, 2010 [facility] [address] [place] [address] Mar, [facility] [address] [place] [address] 15 Jan, 2009 [facility] [address] [place] [address] Oct, [facility] [id number] [place] [address] Apr, IMMUNIZATIONS No Known Immunizations SOCIAL HISTORY Never Assessed REASON FOR VISIT [id number] PLAN OF CARE VITAL SIGNS [...]
--- OUTSIDE RECORDS SUMMARY | 2018-09-28 04:08 | XMS REPORT ---
Author Author Migration, Doctor Organization [facility] Address Unknown Phone Unavailable Care Team Providers Care Lap Runner Name Role Phone Migration, Doctor Unavailable Unavailable PROBLEMS Type Condition ICD9-CM Code UPC95-TQ Code Onset Dates Condition Status SNOMED Code Problem Irritable bowel syndrome without diarrhea K58.9 Active 16072496 Problem Essential hypertension I10 Active 98441200 Problem Bilateral low back pain without sciatica M54.5 Active 651165823 Problem Morbid (severe) obesity due to excess calories E66.01 Active 683598821 Problem Hypertriglyceridemia E78.1 Active 537332487 Problem Dysuria R30.0 Active 40832499 Problem Anxiety F41.9 Active 40388465 Problem Pre-diabetes R73.03 Active 189873196 Problem Alternating constipation and diarrhea R19.8 Active 712342709 Problem Body mass index (BMI) of 40.0-44.9 in adult Z68.41 Active [id number] ALLERGIES No Information ENCOUNTERS Encounter Location Date Diagnosis [facility] [address] [address] Jul, [facility] [id number] [place] [address] Jul, [facility] [id number] [place] [address] Jun, [facility] [id number] [place] [address] Jun, Acute vaginitis N76.0 ; Dermatitis L30.9 ; BMI 40.0-44.9, adult Z68.41 and Morbid obesity E66.01 [facility] [id number] [place] [address] Jun, Vaginal discharge N89.8 ; Urinary tract infection without hematuria, site unspecified N39.0 and BMI 40.0-44.9, adult Z68.41 [facility] [address] [address] May, [facility] [id number] [place] [address] May, [facility] [id number] [place] [address] 18 Apr, 2018 Urinary tract infection, site not specified N39.0 [facility] [id number] [place] [address] 13 Apr, 2018 Dysuria R30.0 ; Urinary tract infection, site not specified N39.0 and Hematuria, unspecified R31.9 [facility] [id number] [place] [address] Mar, [facility] [id number] [place] [address] Mar, Left anterior knee pain M25.562 ; Abscess of buttock, left L02.31 and BMI 40.0-44.9, adult Z68.41 [facility] [id number] [place] [address] Mar, [facility] [id number] [place] [address] Feb, Abrasion of right ear canal, initial encounter S00.411A ; Left wrist pain M25.532 ; Right acute serous otitis media, recurrence not specified H65.01 and BMI 40.0-44.9, adult Z68.41 [facility] [id number] [place] [address] Jan, [facility] [id number] [place] [address] Jan, [facility] [id number] [place] [address] Jan, BMI 40.0-44.9, adult Z68.41 ; Pre-diabetes R73.03 ; Essential hypertension I10 ; Morbid (severe) obesity due to excess calories E66.01 ; Bilateral low back pain without sciatica M54.5 and Heartburn R12 [facility] [id number] [place] [address] 19 Jan, 2018 History of UTI Z87.440 ; Well woman exam with routine gynecological exam Z01.419 ; Screening for breast cancer Z12.31 ; Candidal vaginitis B37.3 and BMI 40.0-44.9, adult Z68.41 [facility] [place] [id number] [place] [address] 05 Jan, 2018 [facility] [id number] [place] [address] Jan, Dysuria R30.0 ; Acute cystitis with hematuria N30.01 ; Yeast infection B37.9 and BMI 40.0-44.9, adult Z68.41 [facility] [id number] [place] [address] Dec, [facility] [id number] [place] [address] Dec, [facility] [id number] [place] [address] Nov, History of UTI Z87.440 [facility] [id number] [place] [address] Nov, UTI symptoms R39.9 ; Acute nasopharyngitis J00 and BMI 40.0-44.9, adult Z68.41 [facility] [address] [address] Nov, [facility] [id number] [place] [address] Nov, Yeast infection involving the vagina and surrounding area B37.3 [facility] [id number] [place] [address] Nov, Yeast infection involving the vagina and surrounding area B37.3 [facility] [id number] [place] [address] Nov, Yeast infection involving the vagina and surrounding area B37.3 ; Body mass index (BMI) of 40.0-44.9 in adult Z68.41 and Morbid (severe) obesity due to excess calories E66.01 [facility] [id number] [place] [address] Oct, Abscess of groin, left L02.214 and Pre-diabetes R73.03 [facility] [id number] [place] [address] September, Pre-diabetes R73.03 [facility] [id number] [place] [address] Aug, [facility] [address] [address] Jul, Bilateral low back pain without sciatica M54.5 [facility] [id number] [place] [address] Jun, [facility] [id number] [place] [address] Jun, [facility] [id number] [place] [address] Jun, [facility] [id number] [place] [address] May, [facility] [id number] [place] [address] May, Ingrown left greater toenail L60.0 [facility] [id number] [place] [address] May, [facility] [id number] [place] [address] May, Influenza A J10.1 ; Fever R50.9 and Body aches R52 [facility] [id number] [place] [address] Apr, [facility] [id number] [place] [address] Apr, [facility] [id number] [place] [address] Apr, [facility] [address] [address] Apr, Abscess L02.91 and Obesity (BMI 30-39.9) E66.9 [facility] [id number] [place] [address] Apr, [facility] [id number] [place] [address] Apr, [facility] [id number] [place] [address] Mar, Acute non-recurrent maxillary sinusitis J01.00 [facility] [id number] [place] [address] Feb, Heartburn R12 [facility] [id number] [place] [address] Feb, Heartburn R12 ; Low back pain M54.5 ; Essential hypertension I10 ; Bilateral low back pain without sciatica M54.5 ; Anxiety F41.9 ; Pre-diabetes R73.03 ; Other obesity due to excess calories E66.09 ; Alternating constipation and diarrhea R19.8 ; Dyspepsia R10.13 ; Generalized abdominal pain R10.84 ; Rhinosinusitis J32.9 and Boil L02.92 [facility] [id number] [place] [address] Jan, Heartburn R12 [facility] [id number] [place] [address] Jan, [facility] [id number] [place] [address] Jan, [facility] [place] [address] [address] Jan, Acute seasonal allergic rhinitis due to pollen J30.1 and Irritable bowel syndrome without diarrhea K58.[address] [address] Dec, Low back pain M54.5 and Acute cystitis with hematuria N30.01 [facility] [id number] [place] [address] Dec, Low back pain M54.5 and Acute cystitis with hematuria N30.01 [facility] [id number] [place] [address] Dec, Heartburn R12 ; Essential hypertension I10 ; Acute non-recurrent maxillary sinusitis J01.00 ; Bilateral low back pain without sciatica M54.5 ; Anxiety F41.9 ; Pre-diabetes R73.03 ; Pain in right foot M79.671 ; Pain in left foot M79.672 ; Other obesity due to excess calories E66.09 and Acute cystitis with hematuria N30.01 [facility] [id number] [place] [address] Dec, Bilateral low back pain without sciatica M54.5 ; Acute non-recurrent maxillary sinusitis J01.00 and Pre-diabetes R73.03 [facility] [id number] [place] [address] Oct, [facility] [address] [place] [address] Aug, [facility] [place] [id number] [place] [address] Aug, Acute vaginitis N76.0 ; Urinary frequency R35.0 ; Screen for STD (sexually transmitted disease) Z11.3 and Abscess L02.[id number] [place] [address] Aug, Plantar wart of right foot B07.0 [facility] [address] [address] Jul, Plantar wart of right foot B07.0 [facility] [id number] [place] [address] Jun, [facility] [address] [address] Jun, Heartburn R12 ; Essential hypertension I10 ; Anxiety F41.9 ; Folliculitis L73.9 and Plantar wart of right foot B07.0 [place] [id number] [place] [address] Jun, [facility] [address] [address] May, Low back pain M54.5 and Other chronic pain G89.29 [place] [address] [address] May, [facility] [place] [id number] [place] [address] May, [facility] [id number] [place] [address] May, Heartburn R12 ; Bilateral low back pain without sciatica M54.5 ; Essential hypertension I10 ; Long-term use of high-risk medication Z79.899 ; Anxiety F41.9 ; Impacted cerumen of right ear H61.21 ; Folliculitis L73.9 ; High risk bisexual behavior Z72.53 and General medical exam Z00.00 [facility] [id number] [place] [address] May, [facility] [id number] [place] [address] May, [facility] [address] [place] [address] Mar, Acute nasopharyngitis J00 ; Acute intractable tension-type headache G44.201 and Cough R05 [facility] [address], [place] [address] Jan, [facility] [id number] [place] [address] Jan, Abscess L02.91 [facility] [id number] [place] [address] Jan, Urinary urgency R39.15 and Urinary tract infection without hematuria, site unspecified N39.0 [facility] [id number] [place] [address] Jan, [facility] [place] [id number] [place] [address] Jan, [facility] [id number] [place] [address] Dec, [facility] [place] [id number] [place] [address] Dec, Dermatofibroma D23.9 [facility] [place] [id number] [place] [address] September, [facility] [place] [id number] [place] [address] Aug, [facility] [place] [id number] [place] [address] Aug, Pain in left knee M25.562 ; Heartburn R12 ; Bilateral low back pain without sciatica M54.5 ; Essential hypertension I10 ; Ingrown left big toenail L60.0 ; Chronic pain G89.29 ; Irritable bowel syndrome with constipation K58.9 and Skin infection L08.9 [facility] [place] [id number] [place] [address] Aug, [facility] [address], [place] [address] Jul, [facility] [id number] [place] [address] Jun, [facility] [id number] [place] [address] Jun, [facility] [id number] [place] [address] Jun, [facility] [id number] [place] [address] Jun, [facility] [id number] [place] [address] Jun, Upper respiratory infection J06.9 ; Bilateral low back pain without sciatica M54.5 and Headache R51 [facility] [id number] [place] [address] May, [facility] [id number] [place] [address] Apr, Bilateral low back pain without sciatica M54.5 ; Upper respiratory infection J06.9 and Yeast dermatitis B37.2 [facility] [address], [place] [address] Apr, [facility] [address] [place] [address] Apr, [facility] [address] [place] [address] Feb, [facility] [id number] [place] [address] Feb, [facility] [address], [place] [address] Feb, [facility] [id number] [place] [address] Feb, Essential hypertension I10 ; Heartburn R12 ; Irritable bowel syndrome without diarrhea K58.9 ; Bilateral low back pain, with sciatica presence unspecified M54.5 and Upper respiratory infection J06.9 [facility] [place] [id number] [place] [address] Feb, [place] [address] [address] Feb, Generalized anxiety disorder F41.1 and Grief F43.20 [place] [address] [address] Jan, [address] [address] Jan, Back pain 724.5 ; Upper respiratory infection 465.9 ; HTN (hypertension) 401.9 and Dyspepsia 536.8 [facility] [id number] [place] [address] Dec, [facility] [place] [id number] [place] [address] Nov, Back pain 724.5 ; Abdominal pain, bilateral lower quadrant 789.03 ; GERD (gastroesophageal reflux disease) 530.81 ; Upper respiratory infection 465.9 ; Dysuria 788.1 and HTN (hypertension) 401.9 [facility] [place] [id number] [place] [address] Nov, [facility] [place] [id number] [place] [address] Nov, [facility] [place] [id number] [place] [address] Nov, [facility] [place] [id number] [place] [address] Nov, Cough 786.[address] [address] Nov, Cough 786.2 [facility] [id number] [place] [address] Oct, Unspecified episodic mood disorder 296.90 and Anxiety disorder, unspecified 300.00 [facility] [id number] [place] [address] Oct, Abdominal pain, left upper quadrant 789.02 ; Essential hypertension, benign 401.1 ; Irritable bowel syndrome 564.1 ; Abscess 682.9 ; Heartburn 787.1 ; Acute sinusitis, unspecified 461.9 ; Muscle spasm of back 724.8 ; Cough 786.2 and Skin tag 701.9 [facility] [id number] [place] [address] September, [facility] [id number] [place] [address] September, [facility] [id number] [place] [address] September, [facility] [id number] [place] [address] Aug, [facility] [id number] [place] [address] Aug, [facility] [id number] [place] [address] Jul, [facility] [id number] [place] [address] Jul, [facility] [id number] [place] [address] Jul, [facility] [id number] [place] [address] Jul, [facility] [id number] [place] [address] Jul, [facility] [id number] [place] [address] Jul, [facility] [place] [facility] [address] [id number] [place] [address] Jul, [facility] [place] [facility] [address] [id number] [place] [address] Jul, [facility] [place] [facility] [address] [id number] [place] [address] Jul, [facility] [place] [facility] [address] [id number] [place] [address] Jul, [facility] [place] [facility] [address] [id number] [place] [address] Jul, [facility] [place] [facility] [address] [id number] [place] [address] Jul, [facility] [place] [facility] [address] [id number] [place] [address] Jul, [facility] [place] [facility] [address] [id number] [place] [address] Jul, [facility] [place] [facility] [address] [id number] [place] [address] Jul, [facility] [place] [facility] [address] [id number] [place] [address] Jul, [facility] [place] [facility] [address] [id number] [place] [address] Jul, [facility] [place] [facility] [address] [id number] [place] [address] Jun, [facility] [place] [facility] [address] [id number] [place] [address] Jun, [facility] [place] [facility] [address] [id number] [place] [address] Jun, [facility] [place] [facility] [address] [id number] [place] [address] Jun, [facility] [place] [facility] [address] [id number] [place] [address] 13 Jun, 2014 [facility] [place] [facility] [address] [id number] [place] [address] Jun, 2014 [facility] [place] [facility] [address] [id number] [place] [address] Jun, 2014 [facility] [place] [facility] [address] [id number] [place] [address] Jun, 2014 [facility] [place] [facility] [address] [id number] [place] [address] Apr, [facility] [place] [facility] [address] [id number] [place] [address] Apr, [facility] [place] [facility] [address] [id number] [place] [address] Apr, [facility] [place] [facility] [address] [id number] [place] [address] Apr, [facility] [place] [facility] [address] [id number] [place] [address] Apr, [facility] [place] [facility] [address] [id number] [place] [address] Apr, [facility] [place] [facility] [address] [id number] [place] [address] 15 Apr, 2014 [facility] [place] [facility] [address] [id number] [place] [address] 15 Apr, 2014 [facility] [place] [facility] [address] [id number] [place] [address] 12 Apr, 2014 [facility] [place] [facility] [address] [id number] [place] [address] Apr, [facility] [place] [facility] [address] [id number] [place] [address] 11 Apr, 2014 [facility] [place] [facility] [address] [id number] [address] Apr, [facility] [place] [facility] [address] [id number] [place] [address] Apr, [facility] [place] [facility] [address] [id number] [place] [address] Apr, [facility] [place] [facility] [address] [facility] [id number] [place] [address] Apr, [facility] [place] [facility] [address] [id number] [place] [address] Feb, [facility] [place] [facility] [address] [id number] [place] [address] Feb, [facility] [place] [facility] [address] [id number] [place] [address] Feb, [facility] [place] [facility] [address] [id number] [place] [address] Feb, [facility] [place] [facility] [address] [id number] [place] [address] Feb, [facility] [place] [facility] [address] [id number] [place] [address] Feb, [facility] [place] [facility] [address] [id number] [place] [address] 08 Jan, 2013 [facility] [place] [facility] [address] [id number], [place] [address] 08 Sep, 2013 [facility] [place] [facility] [address] [id number], [place] [address] 05 Sep, 2013 [facility] [place] [facility] [address] [id number] [place] [address] 05 Sep, 2013 [facility] [place] [facility] [address] [id number] [place] [address] 05 Sep, 2013 [facility] [place] [facility] [address] [id number], [place] [address] 05 Sep, 2013 [facility] [place] [facility] [address] [id number] [place] [address] Dec, [facility] [place] [facility] [address] [id number] [place] [address] Dec, [facility] [place] [facility] [address] [id number] [place] [address] Dec, [facility] [place] [facility] [address] [id number] [place] [address] Dec, [facility] [place] [facility] [address] [id number] [place] [address] Nov, [facility] [place] [facility] [address] [id number] [place] [address] Nov, [facility] [place] [facility] [address] [id number] [place] [address] Nov, [facility] [place] [facility] [address] [id number] [place] [address] Nov, [facility] [place] [facility] [address] [id number] [place] [address] Nov, [facility] [place] [facility] [address] [id number] [place] [address] Nov, [facility] [place] [facility] [address] [id number] [place] [address] Nov, [facility] [place] [facility] [address] [id number] [place] [address] Nov, [facility] [place] [facility] [address] [id number] [place] [address] Oct, [facility] [place] [facility] [address] [id number] [place] [address] Oct, [facility] [place] [facility] [address] [id number] [place] [address] Oct, [facility] [place] [facility] [address] [id number] [place] [address] Oct, [facility] [place] [facility] [address] [id number] [place] [address] Oct, [facility] [place] [facility] [address] [id number] [place] [address] Oct, [facility] [place] [facility] [address] [id number] [place] [address] Oct, [facility] [place] [facility] [address] [id number] [place] [address] Oct, [facility] [place] [facility] [address] [id number] [place] [address] Oct, [facility] [place] [facility] [address] [id number] [place] [address] Oct, [facility] [place] [facility] [address] [id number] [place] [address] Oct, [facility] [place] [facility] [address] [id number] [place] [address] Oct, [facility] [place] [facility] [address] [id number] [place] [address] Oct, [facility] [place] [facility] [address] [id number] [place] [address] Oct, [facility] [place] [facility] [address] [id number], [place] [address] Oct, [facility] [place] [facility] [address] [id number], [place] [address] 17 Oct, 2013 [facility] [place] [facility] [address] [id number] [place] [address] 16 Oct, 2013 [facility] [place] [facility] [address] [id number] [place] [address] 16 Oct, 2013 [facility] [place] [facility] [address] [id number], [place] [address] 13 Oct, 2013 [facility] [place] [facility] [address] [id number], [place] [address] Oct, [facility] [place] [facility] [address] [id number] [place] [address] Oct, [facility] [place] [facility] [address] [id number] [place] [address] Oct, [facility] [place] [facility] [address] [id number] [place] [address] Oct, [facility] [place] [facility] [address] [id number] [place] [address] Oct, [facility] [place] [facility] [address] [id number] [place] [address] Oct, [facility] [place] [facility] [address] [id number] [place] [address] Oct, [facility] [place] [facility] [address] [id number] [place] [address] Oct, [facility] [place] [facility] [address] [id number] [place] [address] Oct, [facility] [place] [facility] [address] [id number] [place] [address] Oct, [facility] [place] [facility] [address] [id number] [place] [address] Oct, [facility] [place] [facility] [address] [id number] [place] [address] September, [facility] [place] [facility] [address] [id number] [place] [address] September, [facility] [place] [facility] [address] [id number] [place] [address] September, [facility] [place] [facility] [address] [id number] [place] [address] September, [facility] [place] [facility] [address] [id number] [place] [address] September, [facility] [place] [facility] [address] [id number] [place] [address] September, [facility] [address] [id number] [place] [address] September, [facility] [place] [facility] [address] [id number] [place] [address] September, [facility] [place] [facility] [address] [id number] [place] [address] September, [facility] [place] [facility] [address] [id number] [place] [address] September, [facility] [place] [facility] [address] [id number] [place] [address] September, [facility] [place] [facility] [address] [id number] [place] [address] September, [facility] [place] [facility] [address] [id number] [place] [address] September, [facility] [place] [facility] [address] [id number] [place] [address] September, [facility] [place] [facility] [address] [id number] [place] [address] September, [facility] [place] [facility] [address] [id number] [place] [address] September, [facility] [place] [facility] [address] [id number] [place] [address] September, [facility] [place] [facility] [address] [id number] [place] [address] September, [facility] [place] [facility] [address] [id number] [place] [address] Aug, [facility] [place] [facility] [address] [id number] [place] [address] Aug, [facility] [place] [facility] [address] [id number] [place] [address] Aug, [facility] [place] [facility] [address] [id number] [place] [address] Aug, [facility] [place] [facility] [address] [id number] [place] [address] Aug, [facility] [place] [facility] [address] [id number] [place] [address] Aug, [facility] [place] [facility] [address] [id number] [place] [address] Jul, [facility] [place] [facility] [address] [id number] [place] [address] Jul, [facility] [place] [facility] [address] [id number] [place] [address] Jul, [facility] [place] [facility] [address] [id number] [place] [address] Jul, [facility] [place] [facility] [address] [id number] [place] [address] Jun, [facility] [place] [facility] [address] [id number] [place] [address] Jun, [facility] [place] [facility] [address] [id number] [place] [address] Jun, [facility] [place] [facility] [address] [id number] [place] [address] Jun, [facility] [place] [facility] [address] [id number] [place] [address] Mar, [facility] [place] [facility] [address] [id number] [place] [address] Mar, [facility] [place] [facility] [address] [id number] [place] [address] Mar, [facility] [place] [facility] [address] [id number] [place] [address] Mar, [facility] [place] [facility] [address] [id number] [place] [address] Feb, [facility] [address] [id number] [place] [address] Feb, [facility] [address] [id number] [place] [address] Feb, [facility] [address] [id number] [place] [address] Jan, [facility] [address] [id number] [place] [address] Jan, [facility] [address] [id number] [place] [address] Jan, [facility] [address] [id number] [place] [address] Jan, [facility] [address] [id number] [place] [address] Dec, [facility] [address] [id number] [place] [address] Dec, [facility] [address] [id number] [place] [address] Dec, [facility] [address] [id number] [place] [address] Dec, [facility] [place] [facility] [address] [id number] [place] [address] Nov, [facility] [address] [id number] [place] [address] Nov, [facility] [place] [facility] [address] [id number] [place] [address] Nov, [facility] [place] [facility] [address] [id number] [place] [address] Nov, [facility] [place] [facility] [address] [id number] [place] [address] Nov, [facility] [place] [facility] [address] [id number] [place] [address] Nov, [facility] [place] [facility] [address] [id number] [place] [address] Oct, [facility] [place] [facility] [address] [id number] [place] [address] Oct, [facility] [place] [facility] [address] [id number] [place] [address] Oct, [facility] [place] [facility] [address] [id number] [place] [address] Oct, [facility] [place] [facility] [address] [id number] [place] [address] 17 Oct, 2012 [facility] [place] [facility] [address] [id number] [place] [address] 16 Oct, 2012 [facility] [place] [facility] [address] [id number] [place] [address] 14 Oct, 2012 [facility] [place] [facility] [address] [id number] [place] [address] Oct, [facility] [place] [facility] [address] [id number] [place] [address] Oct, [facility] [place] [facility] [address] [id number] [place] [address] Oct, [facility] [place] [facility] [address] [id number] [address] September, [facility] [place] [facility] [address] [id number] [place] [address] September, [facility] [place] [facility] [address] [id number] [place] [address] September, [facility] [place] [facility] [address] [id number], [place] [address] Aug, [facility] [place] [facility] [address] [id number], [place] [address] Aug, [facility] [address] [id number] [place] [address] Aug, [facility] [address] [id number] [place] [address] Aug, [facility] [address] [id number] [place] [address] Jul, [facility] [address] [id number] [place] [address] Jul, [facility] [address] [id number] [place] [address] Jul, [facility] [address] [id number] [place] [address] Jul, [facility] [address] [id number] [place] [address] Jul, [facility] [address] [id number] [place] [address] Jul, [facility] [address] [id number] [place] [address] May, [facility] [address] [id number] [place] [address] May, [facility] [address] [id number] [place] [address] May, [facility] [place] [facility] [address] [id number] [place] [address] May, [facility] [place] [facility] [address] [id number] [place] [address] May, [facility] [place] [facility] [address] [id number] [place] [address] May, [facility] [place] [facility] [address] [id number] [place] [address] May, [facility] [place] [facility] [address] [id number] [place] [address] 18 May, 2012 [facility] [place] [facility] [address] [id number] [place] [address] 17 May, 2012 [facility] [place] [facility] [address] [id number] [place] [address] 17 May, 2012 [facility] [place] [facility] [address] [id number] [place] [address] 16 May, 2012 [facility] [place] [facility] [address] [id number] [place] [address] Apr, [facility] [place] [facility] [address] [id number] [place] [address] Apr, [facility] [place] [facility] [address] [id number] [place] [address] Apr, [facility] [place] [facility] [address] [id number] [place] [address] Apr, [facility] [place] [facility] [address] [id number] [place] [address] Apr, [facility] [place] [facility] [address] [id number] [place] [address] Apr, [facility] [place] [facility] [address] [id number] [place] [address] Mar, [facility] [place] [facility] [address] [id number] [place] [address] Mar, [facility] [place] [facility] [address] [id number] [place] [address] Mar, [facility] [place] [facility] [address] [id number] [place] [address] Mar, [facility] [place] [facility] [address] [id number] [place] [address] Mar, [facility] [place] [facility] [address] [id number] [place] [address] Mar, [facility] [place] [facility] [address] [id number] [place] [address] 06 Mar, 2012 [facility] [place] [facility] [address] [id number] [place] [address] Mar, [facility] [place] [facility] [address] [id number] [place] [address] Feb, [facility] [place] [facility] [address] [id number] [place] [address] 23 Feb, 2012 [facility] [place] [facility] [address] [id number] [place] [address] 16 Feb, 2012 [facility] [place] [facility] [address] [id number] [place] [address] 15 Feb, 2012 [facility] [place] [facility] [address] [id number] [place] [address] 15 Feb, 2012 [facility] [place] [facility] [address] [id number], [place] [address] 13 Feb, 2012 [facility] [place] [facility] [address] [id number], [place] [address] Feb, [facility] [place] [facility] [address] [id number], [place] [address] Feb, [facility] [place] [facility] [address] [id number], [place] [address] Feb, [facility] [place] [facility] [address] [id number], [place] [address] Feb, [facility] [place] [facility] [address] [id number], [place] [address] Feb, [facility] [place] [facility] [address] [id number], [place] [address] Feb, [facility] [place] [facility] [address] [id number], [place] [address] Feb, [facility] [place] [facility] [address] [id number] [place] [address] 11 Feb, 2012 [facility] [place] [facility] [address] [id number] [place] [address] 11 Feb, 2012 [facility] [place] [facility] [address] [id number] [place] [address] 11 Feb, 2012 [facility] [place] [facility] [address] [id number] [place] [address] Feb, [facility] [place] [facility] [address] [id number] [place] [address] 04 Feb, 2012 [facility] [place] [facility] [address] [id number] [place] [address] 19 Jan, 2012 [facility] [place] [facility] [address] [id number] [place] [address] 13 Jan, 2012 [facility] [place] [facility] [address] [id number] [place] [address] 11 Jan, 2012 [facility] [place] [facility] [address] [id number] [place] [address] 10 Jan, 2012 [facility] [place] [facility] [address] [id number] [place] [address] 05 Jan, 2012 [facility] [place] [facility] [address] [id number] [place] [address] Dec, [facility] [place] [facility] [address] [id number] [place] [address] Dec, [facility] [place] [facility] [address] [id number] [place] [address] Dec, [facility] [place] [facility] [address] [id number] [place] [address] Dec, [facility] [place] [facility] [address] [id number] [place] [address] Dec, [facility] [place] [facility] [address] [id number] [place] [address] Dec, [facility] [place] [facility] [address] [id number] [place] [address] Nov, [facility] [place] [facility] [address] [id number] [place] [address] Nov, [facility] [place] [facility] [address] [id number] [place] [address] Nov, [facility] [place] [facility] [address] [id number] [place] [address] Nov, [facility] [place] [facility] [address] [id number] [place] [address] Nov, [facility] [place] [facility] [address] [id number] [place] [address] Oct, [facility] [place] [facility] [address] [id number] [place] [address] Oct, [facility] [place] [facility] [address] [id number] [place] [address] Oct, [facility] [place] [facility] [address] [id number] [place] [address] September, [facility] [place] [facility] [address] [id number] [place] [address] September, [facility] [place] [facility] [address] [id number] [place] [address] September, [facility] [place] [facility] [address] [id number] [place] [address] September, [facility] [place] [facility] [address] [id number] [place] [address] September, [facility] [place] [facility] [address] [id number] [place] [address] September, [facility] [place] [facility] [address] [id number] [place] [address] Aug, [facility] [place] [facility] [address] [id number] [place] [address] Aug, [facility] [address] [id number] [place] [address] Aug, [facility] [address] [id number] [place] [address] Jun, [facility] [address] [id number] [place] [address] Jun, [facility] [address] [id number] [place] [address] Jun, [facility] [address] [id number] [place] [address] Jun, [facility] [address] [id number] [place] [address] May, [facility] [address] [id number] [place] [address] May, [facility] [address] [id number] [place] [address] May, [facility] [address] [facility] [id number] [place] [address] May, [facility] [address] [facility] [id number] [place] [address] May, [facility] [address] [id number], [place] [address] Apr, [facility] [address] [id number] [place] [address] Apr, [facility] [address] [id number] [place] [address] Apr, [facility] [place] [facility] [address] [id number] [place] [address] Apr, [facility] [address] [facility] [id number] [place] [address] Apr, [facility] [place] [facility] [address] [id number] [place] [address] 16 Apr, 2011 [facility] [place] [facility] [address] [id number] [place] [address] 16 Apr, 2011 [facility] [place] [facility] [address] [id number] [place] [address] Mar, [facility] [place] [facility] [address] [id number] [place] [address] Mar, [facility] [place] [facility] [address] [id number] [place] [address] Mar, [facility] [place] [facility] [address] [id number] [place] [address] Feb, [facility] [place] [facility] [address] [id number] [place] [address] Feb, [facility] [place] [facility] [address] [id number] [place] [address] Feb, [facility] [place] [facility] [address] [id number] [place] [address] Feb, [facility] [place] [facility] [address] [id number] [place] [address] Feb, [facility] [place] [facility] [address] [id number] [place] [address] 17 Feb, 2011 [facility] [place] [facility] [address] [id number] [place] [address] Jan, [facility] [place] [facility] [address] [id number] [place] [address] Jan, [facility] [place] [facility] [address] [id number] [place] [address] September, [facility] [place] [facility] [address] [id number] [place] [address] Jun, [facility] [place] [facility] [address] [id number] [place] [address] Apr, [facility] [id number] [address] Apr, [facility] [id number] [place] [id number] Apr, [facility] [id number] [address] Apr, [facility] [id number] [place] [address] Apr, [facility] [id number] [place] [address] Mar, [facility] [id number] [place] [address] Mar, [facility] [id number] [place] [address] Mar, [facility] [id number] [place] [address] Mar, [facility] [id number] [address] Feb, [facility] [id number] [address] 15 Jan, 2010 [facility] [id number] [address] Mar, [facility] [id number] [address] 15 Jan, 2009 [facility] [id number] [address] Oct, [facility] [id number] [address] Apr, IMMUNIZATIONS No Known Immunizations SOCIAL HISTORY Never Assessed [place] [place] VITAL SIGNS MEDICATIONS Unknown [...]
--- OUTSIDE RECORDS SUMMARY | 2018-09-28 04:09 | XMS REPORT ---
Author Author Migration, Doctor Organization [facility] Address Unknown Phone Unavailable Care Team Providers Care Industrial Management Teacher Name Role Phone Migration, Doctor Unavailable Unavailable PROBLEMS Type Condition ICD9-CM Code [id number] Code Onset Dates Condition Status SNOMED Code Problem Irritable bowel syndrome without diarrhea K58.9 Active 06012606 Problem Essential hypertension I10 Active 11243937 Problem Bilateral low back pain without sciatica M54.5 Active 739623527 Problem Morbid (severe) obesity due to excess calories E66.01 Active 703186749 Problem Hypertriglyceridemia E78.1 Active 149667938 Problem Dysuria R30.0 Active 16100851 Problem Anxiety F41.9 Active 10164542 Problem Pre-diabetes R73.03 Active 557136751 Problem Alternating constipation and diarrhea R19.8 Active 577799084 Problem Body mass index (BMI) of 40.0-44.9 in adult Z68.41 Active 501356174 ALLERGIES No Information ENCOUNTERS Encounter Location Date Diagnosis [facility] [address] [address] Jul, [facility] [id number] [place] [address] Jul, [facility] [id number] [place] [address] Jun, [facility] [id number] [place] [address] Jun, Acute vaginitis N76.0 ; Dermatitis L30.9 ; BMI 40.0-44.9, adult Z68.41 and Morbid obesity E66.01 [facility] [id number] [place] [address] Jun, Vaginal discharge N89.8 ; Urinary tract infection without hematuria, site unspecified N39.0 and BMI 40.0-44.9, adult Z68.41 [facility] [address] [address] May, [facility] [id number] [place] [address] May, [facility] [id number] [place] [address] 18 Apr, 2018 Urinary tract infection, site not specified N39.0 [facility] [id number] [place] [address] 13 Apr, 2018 Dysuria R30.0 ; Urinary tract infection, site not specified N39.0 and Hematuria, unspecified R31.9 [facility] [id number] [place] [address] Mar, [facility] [id number] [place] [address] Mar, Left anterior knee pain M25.562 ; Abscess of buttock, left L02.31 and BMI 40.0-44.9, adult Z68.41 [facility] [id number] [place] [address] Mar, [facility] [id number] [place] [address] Feb, Abrasion of right ear canal, initial encounter S00.411A ; Left wrist pain M25.532 ; Right acute serous otitis media, recurrence not specified H65.01 and BMI 40.0-44.9, adult Z68.41 [facility] [id number] [place] [address] Jan, [facility] [id number] [place] [address] Jan, [facility] [id number] [place] [address] Jan, BMI 40.0-44.9, adult Z68.41 ; Pre-diabetes R73.03 ; Essential hypertension I10 ; Morbid (severe) obesity due to excess calories E66.01 ; Bilateral low back pain without sciatica M54.5 and Heartburn R12 [facility] [id number] [place] [address] 19 Jan, 2018 History of UTI Z87.440 ; Well woman exam with routine gynecological exam Z01.419 ; Screening for breast cancer Z12.31 ; Candidal vaginitis B37.3 and BMI 40.0-44.9, adult Z68.41 [facility] [id number] [place] [address] 05 Jan, 2018 [facility] [id number] [place] [address] Jan, Dysuria R30.0 ; Acute cystitis with hematuria N30.01 ; Yeast infection B37.9 and BMI 40.0-44.9, adult Z68.41 [facility] [id number] [place] [address] Dec, [facility] [id number] [place] [address] Dec, [facility] [id number] [place] [address] Nov, History of UTI Z87.440 [facility] [id number] [place] [address] Nov, UTI symptoms R39.9 ; Acute nasopharyngitis J00 and BMI 40.0-44.9, adult Z68.41 [facility] [address] [address] Nov, [facility] [id number] [place] [address] Nov, Yeast infection involving the vagina and surrounding area B37.3 [facility] [id number] [place] [address] Nov, Yeast infection involving the vagina and surrounding area B37.3 [facility] [id number] [place] [address] Nov, Yeast infection involving the vagina and surrounding area B37.3 ; Body mass index (BMI) of 40.0-44.9 in adult Z68.41 and Morbid (severe) obesity due to excess calories E66.01 [facility] [id number] [place] [address] Oct, Abscess of groin, left L02.214 and Pre-diabetes R73.03 [facility] [id number] [place] [address] September, Pre-diabetes R73.03 [facility] [id number] [place] [address] Aug, [facility] [address] [address] Jul, Bilateral low back pain without sciatica M54.5 [facility] [id number] [place] [address] Jun, [facility] [id number] [place] [address] Jun, [facility] [id number] [place] [address] Jun, [facility] [id number] [place] [address] May, [facility] [id number] [place] [address] May, Ingrown left greater toenail L60.0 [facility] [id number] [place] [address] May, [facility] [id number] [place] [address] May, Influenza A J10.1 ; Fever R50.9 and Body aches R52 [facility] [id number] [place] [address] Apr, [facility] [id number] [place] [address] Apr, [facility] [id number] [place] [address] Apr, [facility] [address] [address] Apr, Abscess L02.91 and Obesity (BMI 30-39.9) E66.9 [facility] [id number] [place] [address] Apr, [facility] [id number] [place] [address] Apr, [facility] [id number] [place] [address] Mar, Acute non-recurrent maxillary sinusitis J01.00 [facility] [id number] [place] [address] Feb, Heartburn R12 [facility] [id number] [place] [address] Feb, Heartburn R12 ; Low back pain M54.5 ; Essential hypertension I10 ; Bilateral low back pain without sciatica M54.5 ; Anxiety F41.9 ; Pre-diabetes R73.03 ; Other obesity due to excess calories E66.09 ; Alternating constipation and diarrhea R19.8 ; Dyspepsia R10.13 ; Generalized abdominal pain R10.84 ; Rhinosinusitis J32.9 and Boil L02.92 [facility] [id number] [place] [address] Jan, Heartburn R12 [facility] [id number] [place] [address] Jan, [facility] [id number] [place] [address] Jan, [facility] [address] [address] Jan, Acute seasonal allergic rhinitis due to pollen J30.1 and Irritable bowel syndrome without diarrhea K58.[address] [address] Dec, Low back pain M54.5 and Acute cystitis with hematuria N30.01 [facility] [id number] [place] [address] Dec, Low back pain M54.5 and Acute cystitis with hematuria N30.01 [facility] [id number] [place] [address] Dec, Heartburn R12 ; Essential hypertension I10 ; Acute non-recurrent maxillary sinusitis J01.00 ; Bilateral low back pain without sciatica M54.5 ; Anxiety F41.9 ; Pre-diabetes R73.03 ; Pain in right foot M79.671 ; Pain in left foot M79.672 ; Other obesity due to excess calories E66.09 and Acute cystitis with hematuria N30.01 [facility] [id number] [place] [address] Dec, Bilateral low back pain without sciatica M54.5 ; Acute non-recurrent maxillary sinusitis J01.00 and Pre-diabetes R73.03 [facility] [id number] [place] [address] Oct, [facility] [address] [place] [address] Aug, [facility] [id number] [place] [address] Aug, Acute vaginitis N76.0 ; Urinary frequency R35.0 ; Screen for STD (sexually transmitted disease) Z11.3 and Abscess L02.[id number] [place] [address] Aug, Plantar wart of right foot B07.0 [facility] [address] [address] Jul, Plantar wart of right foot B07.0 [facility] [id number] [place] [address] Jun, [facility] [address] [address] Jun, Heartburn R12 ; Essential hypertension I10 ; Anxiety F41.9 ; Folliculitis L73.9 and Plantar wart of right foot B07.0 [facility] [id number] [place] [address] Jun, [facility] [address] [address] May, Low back pain M54.5 and Other chronic pain G89.29 [facility] [address] [address] May, [facility] [id number] [place] [address] May, [facility] [id number] [place] [address] May, Heartburn R12 ; Bilateral low back pain without sciatica M54.5 ; Essential hypertension I10 ; Long-term use of high-risk medication Z79.899 ; Anxiety F41.9 ; Impacted cerumen of right ear H61.21 ; Folliculitis L73.9 ; High risk bisexual behavior Z72.53 and General medical exam Z00.00 [facility] [id number] [place] [address] May, [facility] [id number] [place] [address] May, [facility] [id number] [place] [address] Mar, Acute nasopharyngitis J00 ; Acute intractable tension-type headache G44.201 and Cough R05 [facility] [address], [place] [address] Jan, [facility] [id number] [place] [address] Jan, Abscess L02.91 [facility] [id number] [place] [address] Jan, Urinary urgency R39.15 and Urinary tract infection without hematuria, site unspecified N39.0 [facility] [id number] [place] [address] Jan, [facility] [id number] [place] [address] Jan, [facility] [id number] [place] [address] Dec, [facility] [id number] [place] [address] Dec, Dermatofibroma D23.9 [facility] [id number] [place] [address] September, [facility] [id number] [place] [address] Aug, [facility] [id number] [place] [address] Aug, Pain in left knee M25.562 ; Heartburn R12 ; Bilateral low back pain without sciatica M54.5 ; Essential hypertension I10 ; Ingrown left big toenail L60.0 ; Chronic pain G89.29 ; Irritable bowel syndrome with constipation K58.9 and Skin infection L08.9 [facility] [id number] [place] [address] Aug, [facility] [address], [place] [address] Jul, [facility] [id number] [place] [address] Jun, [facility] [id number] [place] [address] Jun, [facility] [id number] [place] [address] Jun, [facility] [id number] [place] [address] Jun, [facility] [id number] [place] [address] Jun, Upper respiratory infection J06.9 ; Bilateral low back pain without sciatica M54.5 and Headache R51 [facility] [id number] [place] [address] May, [facility] [id number] [place] [address] Apr, Bilateral low back pain without sciatica M54.5 ; Upper respiratory infection J06.9 and Yeast dermatitis B37.2 [facility] [address], [place] [address] Apr, [facility] [id number] [place] [address] Apr, [facility] [address] [place] [address] Feb, [facility] [id number] [place] [address] Feb, [facility] [address], [place] [address] Feb, [facility] [id number] [place] [address] Feb, Essential hypertension I10 ; Heartburn R12 ; Irritable bowel syndrome without diarrhea K58.9 ; Bilateral low back pain, with sciatica presence unspecified M54.5 and Upper respiratory infection J06.9 [facility] [id number] [place] [address] Feb, [facility] [address] [address] Feb, Generalized anxiety disorder F41.1 and Grief F43.20 [facility] [address] [address] Jan, [address] [address] Jan, Back pain 724.5 ; Upper respiratory infection 465.9 ; HTN (hypertension) 401.9 and Dyspepsia 536.8 [facility] [id number] [place] [address] Dec, [facility] [id number] [place] [address] Nov, Back pain 724.5 ; Abdominal pain, bilateral lower quadrant 789.03 ; GERD (gastroesophageal reflux disease) 530.81 ; Upper respiratory infection 465.9 ; Dysuria 788.1 and HTN (hypertension) 401.9 [facility] [id number] [place] [address] Nov, [facility] [id number] [place] [address] Nov, [facility] [id number] [place] [address] Nov, [facility] [id number] [place] [address] Nov, Cough 786.[address] [address] Nov, Cough 786.2 [facility] [id number] [place] [address] Oct, Unspecified episodic mood disorder 296.90 and Anxiety disorder, unspecified 300.00 [facility] [id number] [place] [address] Oct, Abdominal pain, left upper quadrant 789.02 ; Essential hypertension, benign 401.1 ; Irritable bowel syndrome 564.1 ; Abscess 682.9 ; Heartburn 787.1 ; Acute sinusitis, unspecified 461.9 ; Muscle spasm of back 724.8 ; Cough 786.2 and Skin tag 701.9 [facility] [id number] [place] [address] September, [facility] [id number] [place] [address] September, [facility] [id number] [place] [address] September, [facility] [id number] [place] [address] Aug, [facility] [id number] [place] [address] Aug, [facility] [id number] [place] [address] Jul, [facility] [id number] [place] [address] Jul, [facility] [id number] [place] [address] Jul, [facility] [id number] [place] [address] Jul, [facility] [id number] [place] [address] Jul, [facility] [id number] [place] [address] Jul, [facility] [place] [facility] [address] [id number] [place] [address] Jul, [facility] [place] [facility] [address] [id number] [place] [address] Jul, [facility] [place] [facility] [address] [id number] [place] [address] Jul, [facility] [place] [facility] [address] [id number] [place] [address] Jul, [facility] [place] [facility] [address] [id number] [place] [address] Jul, [facility] [place] [facility] [address] [id number] [place] [address] Jul, [facility] [place] [facility] [address] [id number] [place] [address] Jul, [facility] [place] [facility] [address] [id number] [place] [address] Jul, [facility] [place] [facility] [address] [id number] [place] [address] Jul, [facility] [place] [facility] [address] [id number] [place] [address] Jul, [facility] [place] [facility] [address] [id number] [place] [address] Jul, [facility] [place] [facility] [address] [id number] [place] [address] Jun, [facility] [place] [facility] [address] [id number] [place] [address] Jun, [facility] [place] [facility] [address] [id number] [place] [address] Jun, [facility] [place] [facility] [address] [id number] [place] [address] Jun, [facility] [place] [facility] [address] [id number] [place] [address] 13 Jun, 2014 [facility] [place] [facility] [address] [id number] [place] [address] Jun, 2014 [facility] [place] [facility] [address] [id number] [place] [address] Jun, 2014 [facility] [place] [facility] [address] [id number] [place] [address] Jun, 2014 [facility] [place] [facility] [address] [id number] [place] [address] Apr, [facility] [place] [facility] [address] [id number] [place] [address] Apr, [facility] [place] [facility] [address] [id number] [place] [address] Apr, [facility] [place] [facility] [address] [id number] [place] [address] Apr, [facility] [place] [facility] [address] [id number] [place] [address] Apr, [facility] [place] [facility] [address] [id number] [place] [address] Apr, [facility] [place] [facility] [address] [id number] [place] [address] 15 Apr, 2014 [facility] [place] [facility] [address] [id number] [place] [address] 15 Apr, 2014 [facility] [place] [facility] [address] [id number] [place] [address] 12 Apr, 2014 [facility] [place] [facility] [address] [id number] [place] [address] Apr, [facility] [place] [facility] [address] [id number] [place] [address] 11 Apr, 2014 [facility] [place] [facility] [address] [id number] [address] Apr, [facility] [place] [facility] [address] [id number] [place] [address] Apr, [facility] [place] [facility] [address] [id number] [place] [address] Apr, [facility] [place] [facility] [address] [facility]] [id number] [place] [address] Apr, [facility] [place] [facility] [address] [id number] [place] [address] Feb, [facility] [place] [facility] [address] [id number] [place] [address] Feb, [facility] [place] [facility] [address] [id number] [place] [address] Feb, [facility] [place] [facility] [address] [id number] [place] [address] Feb, [facility] [place] [facility] [address] [id number] [place] [address] Feb, [facility] [place] [facility] [address] [id number] [place] [address] Feb, [facility] [place] [facility] [address] [id number] [place] [address] 08 Jan, 2013 [facility] [place] [facility] [address] [id number], [place] [address] 08 Sep, 2013 [facility] [place] [facility] [address] [id number], [place] [address] 05 Sep, 2013 [facility] [place] [facility] [address] [id number] [place] [address] 05 Sep, 2013 [facility] [place] [facility] [address] [id number] [place] [address] 05 Sep, 2013 [facility] [place] [facility] [address] [id number], [place] [address] 05 Sep, 2013 [facility] [place] [facility] [address] [id number] [place] [address] Dec, [facility] [place] [facility] [address] [id number] [place] [address] Dec, [facility] [place] [facility] [address] [id number] [place] [address] Dec, [facility] [place] [facility] [address] [id number] [place] [address] Dec, [facility] [place] [facility] [address] [id number] [place] [address] Nov, [facility] [place] [facility] [address] [id number] [place] [address] Nov, [facility] [place] [facility] [address] [id number] [place] [address] Nov, [facility] [place] [facility] [address] [id number] [place] [address] Nov, [facility] [place] [facility] [address] [id number] [place] [address] Nov, [facility] [place] [facility] [address] [id number] [place] [address] Nov, [facility] [place] [facility] [address] [id number] [place] [address] Nov, [facility] [place] [facility] [address] [id number] [place] [address] Nov, [facility] [place] [facility] [address] [id number] [place] [address] Oct, [facility] [place] [facility] [address] [id number] [place] [address] Oct, [facility] [place] [facility] [address] [id number] [place] [address] Oct, [facility] [place] [facility] [address] [id number] [place] [address] Oct, [facility] [place] [facility] [address] [id number] [place] [address] Oct, [facility] [place] [facility] [address] [id number] [place] [address] Oct, [facility] [place] [facility] [address] [id number] [place] [address] Oct, [facility] [place] [facility] [address] [id number] [place] [address] Oct, [facility] [place] [facility] [address] [id number] [place] [address] Oct, [facility] [place] [facility] [address] [id number] [place] [address] Oct, [facility] [place] [facility] [address] [id number] [place] [address] Oct, [facility] [place] [facility] [address] [id number] [place] [address] Oct, [facility] [place] [facility] [address] [id number] [place] [address] Oct, [facility] [place] [facility] [address] [id number] [place] [address] Oct, [facility] [place] [facility] [address] [id number], [place] [address] Oct, [facility] [place] [facility] [address] [id number], [place] [address] 17 Oct, 2013 [facility] [place] [facility] [address] [id number] [place] [address] 16 Oct, 2013 [facility] [place] [facility] [address] [id number] [place] [address] 16 Oct, 2013 [facility] [place] [facility] [address] [id number], [place] [address] 13 Oct, 2013 [facility] [place] [facility] [address] [id number][place] [address] Oct, [facility] [place] [facility] [address] [id number] [place] [address] Oct, [facility] [place] [facility] [address] [id number] [place] [address] Oct, [facility] [place] [facility] [address] [id number] [place] [address] Oct, [facility] [place] [facility] [address] [id number] [place] [address] Oct, [facility] [place] [facility] [address] [id number] [place] [address] Oct, [facility] [place] [facility] [address] [id number] [place] [address] Oct, [facility] [place] [facility] [address] [id number] [place] [address] Oct, [facility] [place] [facility] [address] [id number] [place] [address] Oct, [facility] [place] [facility] [address] [id number] [place] [address] Oct, [facility] [place] [facility] [address] [id number] [place] [address] Oct, [facility] [place] [facility] [address] [id number] [place] [address] September, [facility] [place] [facility] [address] [id number] [place] [address] September, [facility] [place] [facility] [address] [id number] [place] [address] September, [facility] [place] [facility] [address] [id number] [place] [address] September, [facility] [place] [facility] [address] [id number] [place] [address] September, [facility] [place] [facility] [address] [id number] [place] [address] September, [facility] [address] [id number] [place] [address] September, [facility] [place] [facility] [address] [id number] [place] [address] September, [facility] [place] [facility] [address] [id number] [place] [address] September, [facility] [place] [facility] [address] [id number] [place] [address] September, [facility] [place] [facility] [address] [id number] [place] [address] September, [facility] [place] [facility] [address] [id number] [place] [address] September, [facility] [place] [facility] [address] [id number] [place] [address] September, [facility] [place] [facility] [address] [id number] [place] [address] September, [facility] [place] [facility] [address] [id number] [place] [address] September, [facility] [place] [facility] [address] [id number] [place] [address] September, [facility] [place] [facility] [address] [id number] [place] [address] September, [facility] [place] [facility] [address] [id number] [place] [address] September, [facility] [place] [facility] [address] [id number] [place] [address] Aug, [facility] [place] [facility] [address] [id number] [place] [address] Aug, [facility] [place] [facility] [address] [id number] [place] [address] Aug, [facility] [place] [facility] [address] [id number] [place] [address] Aug, [facility] [place] [facility] [address] [id number] [place] [address] Aug, [facility] [place] [facility] [address] [id number] [place] [address] Aug, [facility] [place] [facility] [address] [id number] [place] [address] Jul, [facility] [place] [facility] [address] [id number] [place] [address] Jul, [facility] [place] [facility] [address] [id number] [place] [address] Jul, [facility] [place] [facility] [address] [id number] [place] [address] Jul, [facility] [place] [facility] [address] [id number] [place] [address] Jun, [facility] [place] [facility] [address] [id number] [place] [address] Jun, [facility] [place] [facility] [address] [id number] [place] [address] Jun, [facility] [place] [facility] [address] [id number] [place] [address] Jun, [facility] [place] [facility] [address] [id number] [place] [address] Mar, [facility] [place] [facility] [address] [id number] [place] [address] Mar, [facility] [place] [facility] [address] [id number] [place] [address] Mar, [facility] [place] [facility] [address] [id number] [place] [address] Mar, [facility] [place] [facility] [address] [id number] [place] [address] Feb, [facility] [address] [id number] [place] [address] Feb, [facility] [address] [id number] [place] [address] Feb, [facility] [address] [id number] [place] [address] Jan, [facility] [address] [id number] [place] [address] Jan, [facility] [address] [id number] [place] [address] Jan, [facility] [address] [id number] [place] [address] Jan, [facility] [address] [id number] [place] [address] Dec, [facility] [address] [id number] [place] [address] Dec, [facility] [address] [id number] [place] [address] Dec, [facility] [address] [id number] [place] [address] Dec, [facility] [place] [facility] [address] [id number] [place] [address] Nov, [facility] [address] [id number] [place] [address] Nov, [facility] [place] [facility] [address] [id number] [place] [address] Nov, [facility] [place] [facility] [address] [id number] [place] [address] Nov, [facility] [place] [facility] [address] [id number] [place] [address] Nov, [facility] [place] [facility] [address] [id number] [place] [address] Nov, [facility] [place] [facility] [address] [id number] [place] [address] Oct, [facility] [place] [facility] [address] [id number] [place] [address] Oct, [facility] [place] [facility] [address] [id number] [place] [address] Oct, [facility] [place] [facility] [address] [id number] [place] [address] Oct, [facility] [place] [facility] [address] [id number] [place] [address] 17 Oct, 2012 [facility] [place] [facility] [address] [id number] [place] [address] 16 Oct, 2012 [facility] [place] [facility] [address] [id number] [place] [address] 14 Oct, 2012 [facility] [place] [facility] [address] [id number] [place] [address] Oct, [facility] [place] [facility] [address] [id number] [place] [address] Oct, [facility] [place] [facility] [address] [id number] [place] [address] Oct, [facility] [place] [facility] [address] [id number], [place] [address] September, [facility] [place] [facility] [address] [id number] [place] [address] September, [facility] [place] [facility] [address] [id number] [place] [address] September, [facility] [place] [facility] [address] [id number], [place] [address] Aug, [facility] [place] [facility] [address] [id number], [place] [address] Aug, [facility] [address] [id number] [place] [address] Aug, [facility] [address] [id number] [place] [address] Aug, [facility] [address] [id number] [place] [address] Jul, [facility] [address] [id number] [place] [address] Jul, [facility] [address] [id number] [place] [address] Jul, [facility] [address] [id number] [place] [address] Jul, [facility] [address] [id number] [place] [address] Jul, [facility] [address] [id number] [place] [address] Jul, [facility] [address] [id number] [place] [address] May, [facility] [address] [id number] [place] [address] May, [facility] [address] [id number] [place] [address] May, [facility] [place] [facility] [address] [id number] [place] [address] May, [facility] [place] [facility] [address] [id number] [place] [address] May, [facility] [place] [facility] [address] [id number] [place] [address] May, [facility] [place] [facility] [address] [id number] [place] [address] May, [facility] [place] [facility] [address] [id number] [place] [address] 18 May, 2012 [facility] [place] [facility] [address] [id number] [place] [address] 17 May, 2012 [facility] [place] [facility] [address] [id number] [place] [address] 17 May, 2012 [facility] [place] [facility] [address] [id number] [place] [address] 16 May, 2012 [facility] [place] [facility] [address] [id number] [place] [address] Apr, [facility] [place] [facility] [address] [id number] [place] [address] Apr, [facility] [place] [facility] [address] [id number] [place] [address] Apr, [facility] [place] [facility] [address] [id number] [place] [address] Apr, [facility] [place] [facility] [address] [id number] [place] [address] Apr, [facility] [place] [facility] [address] [id number] [place] [address] Apr, [facility] [place] [facility] [address] [id number] [place] [address] Mar, [facility] [place] [facility] [address] [id number] [place] [address] Mar, [facility] [place] [facility] [address] [id number] [place] [address] Mar, [facility] [place] [facility] [address] [id number] [place] [address] Mar, [facility] [place] [facility] [address] [id number] [place] [address] Mar, [facility] [place] [facility] [address] [id number] [place] [address] Mar, [facility] [place] [facility] [address] [id number] [place] [address] 06 Mar, 2012 [facility] [place] [facility] [address] [id number] [place] [address] Mar, [facility] [place] [facility] [address] [id number] [place] [address] Feb, [facility] [place] [facility] [address] [id number] [place] [address] 23 Feb, 2012 [facility] [place] [facility] [address] [id number] [place] [address] 16 Feb, 2012 [facility] [place] [facility] [address] [id number] [place] [address] 15 Feb, 2012 [facility] [place] [facility] [address] [id number] [place] [address] 15 Feb, 2012 [facility] [place] [facility] [address] [id number], [place] [address] 13 Feb, 2012 [facility] [place] [facility] [address] [id number], [place] [address] Feb, [facility] [place] [facility] [address] [id number], [place] [address] Feb, [facility] [place] [facility] [address] [id number], [place] [address] Feb, [facility] [place] [facility] [address] [id number], [place] [address] Feb, [facility] [place] [facility] [address] [id number], [place] [address] Feb, [facility] [place] [facility] [address] [id number], [place] [address] Feb, [facility] [place] [facility] [address] [id number], [place] [address] Feb, [facility] [place] [facility] [address] [id number] [place] [address] 11 Feb, 2012 [facility] [place] [facility] [address] [id number] [place] [address] 11 Feb, 2012 [facility] [place] [facility] [address] [id number] [place] [address] 11 Feb, 2012 [facility] [place] [facility] [address] [id number] [place] [address] Feb, [facility] [place] [facility] [address] [id number] [place] [address] 04 Feb, 2012 [facility] [place] [facility] [address] [id number] [place] [address] 19 Jan, 2012 [facility] [place] [facility] [address] [id number] [place] [address] 13 Jan, 2012 [facility] [place] [facility] [address] [id number] [place] [address] 11 Jan, 2012 [facility] [place] [facility] [address] [id number] [place] [address] 10 Jan, 2012 [facility] [place] [facility] [address] [id number] [place] [address] 05 Jan, 2012 [facility] [place] [facility] [address] [id number] [place] [address] Dec, [facility] [place] [facility] [address] [id number] [place] [address] Dec, [facility] [place] [facility] [address] [id number] [place] [address] Dec, [facility] [place] [facility] [address] [id number] [place] [address] Dec, [facility] [place] [facility] [address] [id number] [place] [address] Dec, [facility] [place] [facility] [address] [id number] [place] [address] Dec, [facility] [place] [facility] [address] [id number] [place] [address] Nov, [facility] [place] [facility] [address] [id number] [place] [address] Nov, [facility] [place] [facility] [address] [id number] [place] [address] Nov, [facility] [place] [facility] [address] [id number] [place] [address] Nov, [facility] [place] [facility] [address] [id number] [place] [address] Nov, [facility] [place] [facility] [address] [id number] [place] [address] Oct, [facility] [place] [facility] [address] [id number] [place] [address] Oct, [facility] [place] [facility] [address] [id number] [place] [address] Oct, [facility] [place] [facility] [address] [id number] [place] [address] September, [facility] [place] [facility] [address] [id number] [place] [address] September, [facility] [place] [facility] [address] [id number] [place] [address] September, [facility] [place] [facility] [address] [id number] [place] [address] September, [facility] [place] [facility] [address] [id number] [place] [address] September, [facility] [place] [facility] [address] [id number] [place] [address] September, [facility] [place] [facility] [address] [id number] [place] [address] Aug, [facility] [place] [facility] [address] [id number] [place] [address] Aug, [facility] [address] [id number] [place] [address] Aug, [facility] [address] [id number] [place] [address] Jun, [facility] [address] [id number] [place] [address] Jun, [facility] [address] [id number] [place] [address] Jun, [facility] [address] [id number] [place] [address] Jun, [facility] [address] [id number] [place] [address] May, [facility] [address] [id number] [place] [address] May, [facility] [address] [id number] [place] [address] May, [facility] [address] [facility]NOTE [facility]] [id number] [place] [address] May, [facility] [address] [facility]NOTE 3] [id number] [place] [address] May, [facility] [address] [id number], [place] [address] Apr, [facility] [address] [id number] [place] [address] Apr, [facility] [address] [id number] [place] [address] Apr, [facility] [place] [facility] [address] [id number] [place] [address] Apr, [facility] [address] [facility]NOTE 3] [id number] [place] [address] Apr, [facility] [place] [facility] [address] [id number] [place] [address] 16 Apr, 2011 [facility] [place] [facility] [address] [id number] [place] [address] 16 Apr, 2011 [facility] [place] [facility] [address] [id number] [place] [address] Mar, [facility] [place] [facility] [address] [id number] [place] [address] Mar, [facility] [place] [facility] [address] [id number] [place] [address] Mar, [facility] [place] [facility] [address] [id number] [place] [address] Feb, [facility] [place] [facility] [address] [id number] [place] [address] Feb, [facility] [place] [facility] [address] [id number] [place] [address] Feb, [facility] [place] [facility] [address] [id number] [place] [address] Feb, [facility] [place] [facility] [address] [id number] [place] [address] Feb, [facility] [place] [facility] [address] [id number] [place] [address] 17 Feb, 2011 [facility] [place] [facility] [address] [id number] [place] [address] Jan, [facility] [place] [facility] [address] [id number] [place] [address] Jan, [facility] [place] [facility] [address] [id number] [place] [address] September, [facility] [place] [facility] [address] [id number] [place] [address] Jun, [facility] [place] [facility] [address] [id number] [place] [address] Apr, [facility] [id number] [place] [address] Apr, [facility] [id number] [place] [address] Apr, [facility] [id number], [place] [address] Apr, [facility] [id number] [place] [address] Apr, [facility] [id number] [place] [address] Mar, [facility] [id number] [place] [address] Mar, [facility] [id number] [place] [address] Mar, [facility] [id number] [place] [address] Mar, [facility] [id number] [place] [address] Feb, [facility] [id number] [place] [address] 15 Jan, 2010 [facility] [id number] [place] [address] Mar, [facility] [address], [place] [address] 15 Jan, 2009 [facility] [id number], [place] [address] Oct, [facility] [id number] [place] [address] Apr, IMMUNIZATIONS No Known Immunizations SOCIAL HISTORY Never Assessed REASON FOR VISIT EMR-[facility] PLAN OF CARE VITAL SIGNS MEDICATIONS Unknown [...]
--- OUTSIDE RECORDS SUMMARY | 2018-09-28 04:09 | XMS REPORT ---
Author Author Migration, Doctor Organization [facility] Address Unknown Phone Unavailable Care Team Providers Care Social Work Case Manager Name Role Phone Migration, Doctor Unavailable Unavailable PROBLEMS Type Condition ICD9-CM Code ATQ65-CR Code Onset Dates Condition Status SNOMED Code Problem Irritable bowel syndrome without diarrhea K58.9 Active 88339221 Problem Essential hypertension I10 Active 45129027 Problem Bilateral low back pain without sciatica M54.5 Active 917724154 Problem Morbid (severe) obesity due to excess calories E66.01 Active 360364500 Problem Hypertriglyceridemia E78.1 Active 929165013 Problem Dysuria R30.0 Active 13202914 Problem Anxiety F41.9 Active 80555122 Problem Pre-diabetes R73.03 Active 559987562 Problem Alternating constipation and diarrhea R19.8 Active 825304500 Problem Body mass index (BMI) of 40.0-44.9 in adult Z68.41 Active 973253992 ALLERGIES No Information ENCOUNTERS Encounter Location Date Diagnosis [facility] [id number] [place] [address] Jul, [facility] [id number] [place] [address] Jun, [facility] [id number] [place] [address] Jun, Acute vaginitis N76.0 ; Dermatitis L30.9 ; BMI 40.0-44.9, adult Z68.41 and Morbid obesity E66.01 [facility] [id number] [place] [address] Jun, Vaginal discharge N89.8 ; Urinary tract infection without hematuria, site unspecified N39.0 and BMI 40.0-44.9, adult Z68.41 [facility] [id number] [place] [address] May, [facility] [address], [place] [address] May, [facility] [id number] [place] [address] Apr, Urinary tract infection, site not specified N39.0 [facility] [id number] [place] [address] Apr, Dysuria R30.0 ; Urinary tract infection, site not specified N39.0 and Hematuria, unspecified R31.9 [facility] [address], [place] [address] Mar, [facility] [id number] [place] [address] Mar, Left anterior knee pain M25.562 ; Abscess of buttock, left L02.31 and BMI 40.0-44.9, adult Z68.41 [facility] [id number] [place] [address] Mar, [facility] [id number] [place] [address] Feb, Abrasion of right ear canal, initial encounter S00.411A ; Left wrist pain M25.532 ; Right acute serous otitis media, recurrence not specified H65.01 and BMI 40.0-44.9, adult Z68.41 [facility] [id number] [place] [address] Jan, [facility] [id number] [place] [address] Jan, [facility] [id number] [place] [address] Jan, BMI 40.0-44.9, adult Z68.41 ; Pre-diabetes R73.03 ; Essential hypertension I10 ; Morbid (severe) obesity due to excess calories E66.01 ; Bilateral low back pain without sciatica M54.5 and Heartburn R12 [address], [place] [address] Jan, History of UTI Z87.440 ; Well woman exam with routine gynecological exam Z01.419 ; Screening for breast cancer Z12.31 ; Candidal vaginitis B37.3 and BMI 40.0-44.9, adult Z68.41 [facility] [id number] [place] [address] 05 Jan, 2018 [facility] [id number] [place] [address] Jan, Dysuria R30.0 ; Acute cystitis with hematuria N30.01 ; Yeast infection B37.9 and BMI 40.0-44.9, adult Z68.41 [facility] [id number] [place] [address] Dec, [facility] [id number] [place] [address] Dec, [facility] [id number] [place] [address] Nov, History of UTI Z87.440 [facility] [id number] [place] [address] Nov, UTI symptoms R39.9 ; Acute nasopharyngitis J00 and BMI 40.0-44.9, adult Z68.41 [facility] [id number] [place] [address] Nov, [facility] [id number] [place] [address] Nov, Yeast infection involving the vagina and surrounding area B37.3 [facility] [id number] [place] [address] Nov, Yeast infection involving the vagina and surrounding area B37.3 [facility] [id number] [place] [address] Nov, Yeast infection involving the vagina and surrounding area B37.3 ; Body mass index (BMI) of 40.0-44.9 in adult Z68.41 and Morbid (severe) obesity due to excess calories E66.01 [facility] [address] [address] 14 Oct, 2017 Abscess of groin, left L02.214 and Pre-diabetes R73.03 [facility] [address] [address] September, Pre-diabetes R73.03 [facility] [address] [address] Aug, [facility] [address] [address] Jul, Bilateral low back pain without sciatica M54.5 [place] [address] [address] Jun, [facility] [address] [address] Jun, [facility] [address] [address] Jun, [facility] [address] [address] May, [facility] [address] [address] May, Ingrown left greater toenail L60.0 [place] [address] [address] May, [facility] [address] [address] May, Influenza A J10.1 ; Fever R50.9 and Body aches R52 [place] [address] [address] Apr, [facility] [id number] [place] [address] Apr, [facility] [id number] [place] [address] Apr, [facility] [id number] [place] [address] Apr, Abscess L02.91 and Obesity (BMI 30-39.9) E66.9 [facility] [id number] [place] [address] Apr, [facility] [address] [address] Apr, [facility] [id number] [place] [address] Mar, Acute non-recurrent maxillary sinusitis J01.00 [facility] [id number] [place] [address] Feb, Heartburn R12 [facility] [id number] [place] [address] Feb, Heartburn R12 ; Low back pain M54.5 ; Essential hypertension I10 ; Bilateral low back pain without sciatica M54.5 ; Anxiety F41.9 ; Pre-diabetes R73.03 ; Other obesity due to excess calories E66.09 ; Alternating constipation and diarrhea R19.8 ; Dyspepsia R10.13 ; Generalized abdominal pain R10.84 ; Rhinosinusitis J32.[address] [facility] [id number] [place] [address] Jan, Heartburn R12 [facility] [id number] [place] [address] Jan, [facility] [id number] [place] [address] Jan, [facility] [id number] [place] [address] Jan, Acute seasonal allergic rhinitis due to pollen J30.1 and Irritable bowel syndrome without diarrhea K58.9 [facility] [place] [address] [address] Dec, Low back pain M54.5 and Acute cystitis with hematuria N30.01 [place] [address] [address] Dec, Low back pain M54.5 and Acute cystitis with hematuria N30.[address] [address] Dec, Heartburn R12 ; Essential hypertension I10 ; Acute non-recurrent maxillary sinusitis J01.00 ; Bilateral low back pain without sciatica M54.5 ; Anxiety F41.9 ; Pre-diabetes R73.03 ; Pain in right foot M79.671 ; Pain in left foot M79.672 ; Other obesity due to excess calories E66.09 and Acute cystitis with hematuria N30.01 [place] [address] [address] Dec, Bilateral low back pain without sciatica M54.5 ; Acute non-recurrent maxillary sinusitis J01.00 and Pre-diabetes R73.03 [facility] [id number] [place] [address] Oct, [facility] [address] [address] Aug, [facility] [address] [place] [address] Aug, Acute vaginitis N76.0 ; Urinary frequency R35.0 ; Screen for STD (sexually transmitted disease) Z11.3 and Abscess L02.[address] [address] Aug, Plantar wart of right foot B07.0 [facility] [id number] [place] [address] Jul, Plantar wart of right foot B07.0 [facility] [id number] [place] [address] Jun, [facility] [id number] [place] [address] Jun, Heartburn R12 ; Essential hypertension I10 ; Anxiety F41.9 ; Folliculitis L73.9 and Plantar wart of right foot B07.0 [facility] [id number] [place] [address] Jun, [facility] [id number] [place] [address] May, Low back pain M54.5 and Other chronic pain G89.29 [facility] [id number] [place] [address] May, [facility] [id number] [place] [address] May, [facility] [id number] [place] [address] May, Heartburn R12 ; Bilateral low back pain without sciatica M54.5 ; Essential hypertension I10 ; Long-term use of high-risk medication Z79.899 ; Anxiety F41.9 ; Impacted cerumen of right ear H61.21 ; Folliculitis L73.9 ; High risk bisexual behavior Z72.53 and General medical exam Z00.00 [facility] [id number] [place] [address] May, [facility] [id number] [place] [address] May, [facility] [id number] [place] [address] Mar, Acute nasopharyngitis J00 ; Acute intractable tension-type headache G44.[address] [facility] [id number] [place] [address] Jan, [facility] [id number] [place] [address] 29 Jan, 2016 Abscess L02.91 [facility] [id number] [place] [address] Jan, Urinary urgency R39.15 and Urinary tract infection without hematuria, site unspecified N39.0 [facility] [id number] [place] [address] Jan, [facility] [id number] [place] [address] Jan, [facility] [id number] [place] [address] Dec, [facility] [id number] [place] [address] Dec, Dermatofibroma D23.9 [facility] [id number] [place] [address] September, [facility] [id number] [place] [address] Aug, [facility] [id number] [place] [address] Aug, Pain in left knee M25.562 ; Heartburn R12 ; Bilateral low back pain without sciatica M54.5 ; Essential hypertension I10 ; Ingrown left big toenail L60.0 ; Chronic pain G89.29 ; Irritable bowel syndrome with constipation K58.9 [address]9 [facility] [id number] [place] [address] Aug, [facility] [id number] [place] [address] Jul, [facility] [address], [place] [address] Jun, [facility] [id number] [place] [address] Jun, [facility] [id number] [place] [address] Jun, [facility] [id number] [place] [address] Jun, [facility] [id number] [place] [address] Jun, Upper respiratory infection J06.9 ; Bilateral low back pain without sciatica M54.[address] [facility] [id number] [place] [address] May, [facility] [id number] [place] [address] Apr, Bilateral low back pain without sciatica M54.5 ; Upper respiratory infection J06.9 and Ye[address] dermatitis B37.2 [facility] [id number] [place] [address] Apr, [facility] [id number] [place] [address] Apr, [facility] [id number] [place] [address] Feb, [facility] [id number] [place] [address] Feb, [facility] [id number] [place] [address] Feb, [facility] [address] [place] [address] Feb, Essential hypertension I10 ; Heartburn R12 ; Irritable bowel syndrome without diarrhea K58.9 ; Bilateral low back pain, with sciatica presence unspecified M54.5 and Upper respiratory infection J06.9 [facility] [id number] [place] [address] Feb, [facility] [id number] [place] [address] 07 Feb, 2015 Generalized anxiety disorder F41.1 and Grief F43.20 [place] [address] [address] Jan, [facility] [id number] [place] [address] Jan, Back pain 724.5 ; Upper respiratory infection 465.9 ; HTN (hypertension) 401.9 and Dyspepsia 536.8 [facility] [id number] [place] [address] Dec, [facility] [id number] [place] [address] Nov, Back pain 724.5 ; Abdominal pain, bilateral lower quadrant 789.03 ; GERD (gastroesophageal reflux disease) 530.81 ; Upper respiratory infection 465.9 ; Dysuria 788.1 and HTN (hypertension) 401.9 [facility] [id number] [place] [address] Nov, [facility] [id number] [place] [address] Nov, [facility] [id number] [place] [address] Nov, [facility] [id number] [place] [address] Nov, Cough 786.2 [facility] [id number] [place] [address] Nov, Cough 786.2 [facility] [id number] [place] [address] Oct, Unspecified episodic mood disorder 296.90 and Anxiety disorder, unspecified 300.00 [facility] [id number] [place] [address] Oct, Abdominal pain, left upper quadrant 789.02 ; Essential hypertension, benign 401.1 ; Irritable bowel syndrome 564.1 ; Abscess 682.9 ; Heartburn 787.1 ; Acute sinusitis, unspecified 461.9 ; Muscle spasm of back 724.8 ; Cough 786.2 and Skin tag [address]9 [facility] [id number] [place] [address] September, [facility] [id number] [place] [address] September, [facility] [address] [place] [address] September, [facility] [id number] [place] [address] Aug, [facility] [id number] [place] [address] Aug, [facility] [id number] [place] [address] Jul, [facility] [id number] [place] [address] Jul, [facility] [id number] [place] [address] Jul, [facility] [id number] [place] [address] Jul, [facility] [id number] [place] [address] Jul, [facility] [id number] [place] [address] Jul, [facility] [id number] [place] [address] Jul, [facility] [place] [facility] [address] [id number] [place] [address] Jul, [facility] [place] [facility] [address] [id number] [place] [address] Jul, [facility] [place] [facility] [address] [facility] [id number] [place] [address] Jul, [facility] [place] [facility] [address] [id number] [place] [address] Jul, [facility] [place] [facility] [address] [id number] [place] [address] Jul, [facility] [place] [facility] [address] [id number] [place] [address] Jul, [facility] [place] [facility] [address] [facility] [id number] [place] [address] Jul, [facility] [place] [facility] [address] [id number] [place] [address] Jul, [facility] [place] [facility] [address] [id number] [place] [address] Jul, [facility] [place] [facility] [address] [facility] [id number] [place] [address] Jul, [facility] [place] [facility] [address] [id number] [place] [address] Jun, 2014 [facility] [place] [facility] [address] [id number] [place] [address] Jun, [facility] [place] [facility] [address] [id number] [place] [address] Jun, 2014 [facility] [place] [facility] [address] [id number] [place] [address] Jun, 2014 [facility] [place] [facility] [address] [facility] [id number] [place] [address] Jun, 2014 [facility] [place] [facility] [address] [id number] [place] [address] 13 Jun, 2014 [facility] [place] [facility] [address] [id number] [place] [address] Jun, 2014 [facility] [place] [facility] [address] [id number] [place] [address] Jun, 2014 [facility] [place] [facility] [address] [id number] [place] [address] Apr, [facility] [place] [facility] [address] [id number] [place] [address] Apr, [facility] [place] [facility] [address] [id number] [place] [address] Apr, [facility] [place] [facility] [address] [id number] [place] [address] Apr, [facility] [place] [facility] [address] [id number] [place] [address] Apr, [facility] [place] [facility] [address] [id number] [place] [address] Apr, [facility] [place] [facility] [address] [id number] [place] [address] 15 Apr, 2014 [facility] [place] [facility] [address] [id number] [place] [address] 15 Apr, 2014 [facility] [place] [facility] [address] [id number] [place] [address] Apr, [facility] [place] [facility] [address] [id number] [place] [address] Apr, [facility] [place] [facility] [address] [id number] [place] [address] Apr, [facility] [place] [facility] [address] [id number] [place] [address] Apr, [facility] [place] [facility] [address] [id number], [place] [address] Apr, [facility] [place] [facility] [address] [id number] [place] [address] Apr, [facility] [place] [facility] [address] [id number] [place] [address] Apr, [facility] [place] [facility] [address] [id number] [place] [address] Feb, [facility] [place] [facility] [address] [id number] [place] [address] Feb, [facility] [place] [facility] [address] [id number] [place] [address] Feb, [facility] [place] [facility] [address] [id number] [place] [address] Feb, [facility] [place] [facility] [address] [id number] [place] [address] Feb, [facility] [place] [facility] [address] [id number] [place] [address] Feb, [facility] [place] [facility] [address] [id number] [place] [address] 08 Jan, 2014 [facility] [place] [facility] [address] [id number] [place] [address] 08 Jan, 2014 [facility] [place] [facility] [address] [id number], [place] [address] Jan, 2013 [facility] [place] [facility] [address] [id number], [place] [address] 05 Jan, 2013 [facility] [place] [facility] [address] [id number] [place] [address] 05 Jan, 2014 [facility] [place] [facility] [address] [id number] [place] [address] Jan, 2013 [facility] [place] [facility] [address] [id number] [place] [address] Dec, [facility] [place] [facility] [address] [id number] [place] [address] Dec, [facility] [place] [facility] [address] [id number] [place] [address] Dec, [facility] [place] [facility] [address] [id number] [place] [address] Dec, [facility] [place] [facility] [address] [id number] [place] [address] Nov, [facility] [place] [facility] [address] [id number] [place] [address] Nov, [facility] [place] [facility] [address] [id number] [place] [address] Nov, [facility] [place] [facility] [address] [id number] [place] [address] Nov, [facility] [place] [facility] [address] [id number] [place] [address] Nov, [facility] [place] [facility] [address] [id number] [place] [address] Nov, [facility] [place] [facility] [address] [id number] [place] [address] Nov, [facility] [place] [facility] [address] [id number] [place] [address] Nov, [facility] [place] [facility] [address] [id number] [place] [address] Oct, [facility] [place] [facility] [address] [id number] [place] [address] Oct, [facility] [place] [facility] [address] [id number] [place] [address] Oct, [facility] [place] [facility] [address] [id number] [place] [address] Oct, [facility] [place] [facility] [address] [id number] [place] [address] Oct, [facility] [place] [facility] [address] [id number] [place] [address] Oct, [facility] [place] [facility] [address] [id number] [place] [address] Oct, [facility] [place] [facility] [address] [id number] [place] [address] Oct, [facility] [place] [facility] [address] [id number] [place] [address] Oct, [facility] [place] [facility] [address] [id number] [place] [address] Oct, [facility] [place] [facility] [address] [id number] [place] [address] Oct, [facility] [place] [facility] [address] [id number] [place] [address] Oct, [facility] [place] [facility] [address] [id number] [place] [address] Oct, [facility] [place] [facility] [address] [id number] [place] [address] Oct, [facility] [place] [facility] [address] [id number], [place] [address] Oct, [facility] [place] [facility] [address] [id number], [place] [address] Oct, [facility] [place] [facility] [address] [id number], [place] [address] 16 Oct, 2013 [facility] [place] [facility] [address] [id number] [place] [address] Oct, [facility] [place] [facility] [address] [id number], [place] [address] 13 Oct, 2013 [facility] [place] [facility] [address] [id number], [place] [address] 13 Oct, 2013 [facility] [place] [facility] [address] [id number], [place] [address] Oct, [facility] [place] [facility] [address] [id number] [place] [address] Oct, [facility] [place] [facility] [address] [id number] [place] [address] Oct, [facility] [place] [facility] [address] [id number] [place] [address] Oct, [facility] [place] [facility] [address] [id number] [place] [address] Oct, [facility] [place] [facility] [address] [id number] [place] [address] Oct, [facility] [place] [facility] [address] [id number] [place] [address] Oct, [facility] [place] [facility] [address] [id number] [place] [address] Oct, [facility] [place] [facility] [address] [id number] [place] [address] Oct, [facility] [place] [facility] [address] [id number] [place] [address] Oct, [facility] [place] [facility] [address] [id number] [place] [address] September, [facility] [place] [facility] [address] [id number] [place] [address] September, [facility] [place] [facility] [address] [id number] [place] [address] September, [facility] [place] [facility] [address] [id number] [place] [address] September, [facility] [place] [facility] [address] [id number] [place] [address] September, [facility] [place] [facility] [address] [id number] [place] [address] September, [facility] [place] [facility] [address] [id number] [place] [address] September, [facility] [address] [id number] [place] [address] September, [facility] [place] [facility] [address] [id number] [place] [address] September, [facility] [place] [facility] [address] [id number] [place] [address] September, [facility] [place] [facility] [address] [id number] [place] [address] September, [facility] [place] [facility] [address] [id number] [place] [address] September, [facility] [place] [facility] [address] [id number] [place] [address] September, [facility] [place] [facility] [address] [id number] [place] [address] September, [facility] [place] [facility] [address] [id number] [place] [address] September, [facility] [place] [facility] [address] [id number] [place] [address] September, [facility] [place] [facility] [address] [id number] [place] [address] September, [facility] [place] [facility] [address] [id number] [place] [address] September, [facility] [place] [facility] [address] [id number] [place] [address] Aug, [facility] [place] [facility] [address] [id number] [place] [address] Aug, [facility] [place] [facility] [address] [id number] [place] [address] Aug, [facility] [place] [facility] [address] [id number] [place] [address] Aug, [facility] [place] [facility] [address] [id number] [place] [address] Aug, [facility] [place] [facility] [address] [id number] [place] [address] Aug, [facility] [place] [facility] [address] [id number] [place] [address] Jul, [facility] [place] [facility] [address] [id number] [place] [address] Jul, [facility] [place] [facility] [address] [id number] [place] [address] Jul, [facility] [place] [facility] [address] [id number] [place] [address] Jul, [facility] [place] [facility] [address] [id number] [place] [address] Jun, [facility] [place] [facility] [address] [id number] [place] [address] Jun, [facility] [place] [facility] [address] [id number] [place] [address] Jun, [facility] [place] [facility] [address] [id number] [place] [address] Jun, [facility] [place] [facility] [address] [id number] [place] [address] Mar, [facility] [place] [facility] [address] [id number] [place] [address] 14 Mar, 2013 [facility] [place] [facility] [address] [id number] [place] [address] Mar, [facility] [place] [facility] [address] [id number] [place] [address] Mar, [facility] [place] [facility] [address] [id number] [place] [address] Feb, [facility] [place] [facility] [address] [id number] [place] [address] Feb, [facility] [address] [id number] [place] [address] Feb, [facility] [address] [id number] [place] [address] Jan, [facility] [address] [id number] [place] [address] Jan, [facility] [address] [id number] [place] [address] Jan, [facility] [address] [id number] [place] [address] Jan, [facility] [address] [id number] [place] [address] Dec, [facility] [address] [id number] [place] [address] Dec, [facility] [address] [id number] [place] [address] Dec, [facility] [address] [id number] [place] [address] Dec, [facility] [address] [id number] [place] [address] Nov, [facility] [place] [facility] [address] [id number] [place] [address] Nov, [facility] [address] [id number] [place] [address] Nov, [facility] [place] [facility] [address] [id number] [place] [address] Nov, [facility] [place] [facility] [address] [id number] [place] [address] Nov, [facility] [place] [facility] [address] [id number] [place] [address] Nov, [facility] [address] [id number] [place] [address] Oct, [facility] [place] [facility] [address] [id number] [place] [address] Oct, [facility] [place] [facility] [address] [id number] [place] [address] Oct, [facility] [place] [facility] [address] [id number] [place] [address] Oct, [facility] [place] [facility] [address] [id number] [place] [address] 17 Oct, 2012 [facility] [place] [facility] [address] [id number] [place] [address] 16 Oct, 2012 [facility] [place] [facility] [address] [id number] [place] [address] 14 Oct, 2012 [facility] [place] [facility] [address] [id number] [place] [address] 13 Oct, 2012 [facility] [place] [facility] [address] [id number] [place] [address] Oct, [facility] [place] [facility] [address] [id number], [place] [address] Oct, [facility] [place] [facility] [address] [id number] [place] [address] September, [facility] [place] [facility] [address] [id number], [place] [address] September, [facility] [place] [facility] [address] [id number] [place] [address] September, [facility] [place] [facility] [address] [id number] [place] [address] Aug, [facility] [place] [facility] [address] [id number], [place] [address] Aug, [facility] [place] [facility] [address] [id number], [place] [address] Aug, [facility] [address] [id number] [place] [address] Aug, [facility] [address] [id number] [place] [address] Jul, [facility] [address] [id number] [place] [address] Jul, [facility] [address] [id number] [place] [address] Jul, [facility] [address] [id number] [place] [address] Jul, [facility] [address] [id number] [place] [address] Jul, [facility] [address] [id number] [place] [address] Jul, [facility] [address] [id number] [place] [address] May, [facility] [address] [id number] [place] [address] May, [facility] [address] [id number] [place] [address] May, [facility] [address] [id number] [place] [address] May, [facility] [place] [facility] [address] [id number] [place] [address] May, [facility] [place] [facility] [address] [id number] [place] [address] May, [facility] [place] [facility] [address] [id number] [place] [address] May, [facility] [place] [facility] [address] [id number] [place] [address] 18 May, 2012 [facility] [place] [facility] [address] [id number] [place] [address] 17 May, 2012 [facility] [place] [facility] [address] [id number] [place] [address] 17 May, 2012 [facility] [place] [facility] [address] [id number] [place] [address] May, [facility] [place] [facility] [address] [id number] [place] [address] Apr, [facility] [place] [facility] [address] [id number] [place] [address] Apr, [facility] [place] [facility] [address] [id number] [place] [address] Apr, [facility] [place] [facility] [address] [id number] [place] [address] Apr, [facility] [place] [facility] [address] [id number] [place] [address] Apr, [facility] [place] [facility] [address] [id number] [place] [address] Apr, [facility] [place] [facility] [address] [id number] [place] [address] Mar, [facility] [place] [facility] [address] [id number] [place] [address] Mar, [facility] [place] [facility] [address] [id number] [place] [address] Mar, [facility] [place] [facility] [address] [id number] [place] [address] Mar, [facility] [place] [facility] [address] [id number] [place] [address] Mar, [facility] [place] [facility] [address] [id number] [place] [address] Mar, [facility] [place] [facility] [address] [id number] [place] [address] Mar, [facility] [place] [facility] [address] [id number] [place] [address] 05 Mar, 2012 [facility] [place] [facility] [address] [id number] [place] [address] Feb, [facility] [place] [facility] [address] [id number] [place] [address] 23 Feb, 2012 [facility] [place] [facility] [address] [id number] [place] [address] 16 Feb, 2012 [facility] [place] [facility] [address] [id number] [place] [address] 15 Feb, 2012 [facility] [place] [facility] [address] [id number] [place] [address] 15 Feb, 2012 [facility] [place] [facility] [address] [id number] [place] [address] 13 Feb, 2012 [facility] [place] [facility] [address] [id number], [place] [address] Feb, [facility] [place] [facility] [address] [id number], [place] [address] Feb, [facility] [place] [facility] [address] [id number], [place] [address] Feb, [facility] [place] [facility] [address] [id number], [place] [address] Feb, [facility] [place] [facility] [address] [id number], [place] [address] Feb, [facility] [place] [facility] [address] [id number], [place] [address] Feb, [facility] [place] [facility] [address] [id number], [place] [address] Feb, [facility] [place] [facility] [address] [id number], [place] [address] Feb, [facility] [place] [facility] [address] [id number] [place] [address] 11 Feb, 2012 [facility] [place] [facility] [address] [id number] [place] [address] Feb, [facility] [place] [facility] [address] [id number] [place] [address] Feb, [facility] [place] [facility] [address] [id number] [place] [address] 04 Feb, 2012 [facility] [place] [facility] [address] [id number] [place] [address] 19 Jan, 2012 [facility] [place] [facility] [address] [id number] [place] [address] 13 Jan, 2012 [facility] [place] [facility] [address] [id number] [place] [address] 11 Jan, 2012 [facility] [place] [facility] [address] [id number] [place] [address] 10 Jan, 2012 [facility] [place] [facility] [address] [id number] [place] [address] 05 Jan, 2012 [facility] [place] [facility] [address] [id number] [place] [address] Dec, [facility] [place] [facility] [address] [id number] [place] [address] Dec, [facility] [place] [facility] [address] [id number] [place] [address] Dec, [facility] [place] [facility] [address] [id number] [place] [address] Dec, [facility] [place] [facility] [address] [id number] [place] [address] Dec, [facility] [place] [facility] [address] [id number] [place] [address] Dec, [facility] [place] [facility] [address] [id number] [place] [address] Nov, [facility] [place] [facility] [address] [id number] [place] [address] Nov, [facility] [place] [facility] [address] [id number] [place] [address] Nov, [facility] [place] [facility] [address] [id number] [place] [address] Nov, [facility] [place] [facility] [address] [id number] [place] [address] Nov, [facility] [place] [facility] [address] [id number] [place] [address] Oct, [facility] [place] [facility] [address] [id number] [place] [address] Oct, [facility] [place] [facility] [address] [id number] [place] [address] Oct, [facility] [place] [facility] [address] [id number] [place] [address] September, [facility] [place] [facility] [address] [id number] [place] [address] September, [facility] [place] [facility] [address] [id number] [place] [address] September, [facility] [place] [facility] [address] [id number] [place] [address] September, [facility] [place] [facility] [address] [id number] [place] [address] September, [facility] [place] [facility] [address] [id number] [place] [address] September, [facility] [place] [facility] [address] [id number] [place] [address] Aug, [facility] [place] [facility] [address] [id number] [place] [address] Aug, [facility] [place] [facility] [address] [id number] [place] [address] Aug, [facility] [address] [id number] [place] [address] Jun, [facility] [address] [id number] [place] [address] Jun, [facility] [address] [id number] [place] [address] Jun, [facility] [address] [id number] [place] [address] Jun, [facility] [address] [id number] [place] [address] May, [facility] [address] [id number] [place] [address] May, [facility] [address] [facility] [id number] [place] [address] May, [facility] [address] [id number] [place] [address] May, [facility] [address] [facility] [id number] [place] [address] May, [facility] [address] [facility] [id number] [place] [address] Apr, [facility] [address] [id number] [place] [address] Apr, [facility] [address] [id number] [place] [address] Apr, [facility] [address] [id number] [place] [address] Apr, [facility] [place] [facility] [address] [id number] [place] [address] Apr, [facility] [address] [facility] [id number] [place] [address] 16 Apr, 2011 [facility] [place] [facility] [address] [id number] [place] [address] 16 Apr, 2011 [facility] [place] [facility] [address] [id number] [place] [address] Mar, [facility] [place] [facility] [address] [id number] [place] [address] Mar, [facility] [place] [facility] [address] [id number] [place] [address] Mar, [facility] [place] [facility] [address] [id number] [place] [address] Feb, [facility] [place] [facility] [address] [id number] [place] [address] Feb, [facility] [place] [facility] [address] [id number] [place] [address] Feb, [facility] [place] [facility] [address] [id number] [place] [address] Feb, [facility] [place] [facility] [address] [id number] [place] [address] Feb, [facility] [place] [facility] [address] [id number] [place] [address] Feb, [facility] [place] [facility] [address] [id number] [place] [address] 13 Jan, 2011 [facility] [place] [facility] [address] [id number] [place] [address] Jan, [facility] [place] [facility] [address] [id number] [place] [address] September, [facility] [place] [facility] [address] [id number] [place] [address] Jun, [facility] [place] [facility] [address] [id number] [place] [address] Apr, [facility] [place] [facility] [address] [id number] [place] [address] Apr, [facility] [address] [id number], [place] [address], [facility] [address] [facility] [id number] [address] Apr, [facility] [address] [id number] [address] Apr, [facility] [id number] [address] Mar, [facility] [id number] [address] Mar, [facility] [id number] [address] Mar, [facility] [id number] [address] Mar, [facility] [id number] [address] Feb, [facility] [id number] [address] Jan, [facility] [id number] [address] Mar, [facility] [address] [id number] [address] Jan, [facility] [address] [id number], [place] [address] Oct, [facility] [address] [id number], [place] [address] Apr, IMMUNIZATIONS No Known Immunizations SOCIAL HISTORY Never Assessed REASON FOR VISIT [facility] [place] VITAL SIGNS MEDICATIONS Unknown [...]
--- OUTSIDE RECORDS SUMMARY | 2018-09-28 04:10 | XMS REPORT ---
Author Author Migration, Doctor Organization [facility] Address Unknown Phone Unavailable Care Team Providers Care Torch Shearer Name Role Phone Migration, Doctor Unavailable Unavailable PROBLEMS Type Condition ICD9-CM Code XPV95-XI Code Onset Dates Condition Status SNOMED Code Problem Irritable bowel syndrome without diarrhea K58.9 Active 41017139 Problem Essential hypertension I10 Active 93171964 Problem Bilateral low back pain without sciatica M54.5 Active 919033056 Problem Morbid (severe) obesity due to excess calories E66.01 Active 496962315 Problem Hypertriglyceridemia E78.1 Active 725516312 Problem Dysuria R30.0 Active 81685525 Problem Anxiety F41.9 Active 43288746 Problem Pre-diabetes R73.03 Active 594457769 Problem Alternating constipation and diarrhea R19.8 Active 087357763 Problem Body mass index (BMI) of 40.0-44.9 in adult Z68.41 Active 525340714 ALLERGIES No Information ENCOUNTERS Encounter Location Date Diagnosis [facility] [id number] [place] [address] Jul, [facility] [id number] [place] [address] Jun, [facility] [id number] [place] [address] Jun, Acute vaginitis N76.0 ; Dermatitis L30.9 ; BMI 40.0-44.9, adult Z68.41 and Morbid obesity E66.01 [facility] [id number] [place] [address] Jun, Vaginal discharge N89.8 ; Urinary tract infection without hematuria, site unspecified N39.0 and BMI 40.0-44.9, adult Z68.41 [facility] [id number] [place] [address] May, [facility] [address] [address] May, [facility] [id number] [place] [address] Apr, Urinary tract infection, site not specified N39.0 [facility] [id number] [place] [address] Apr, Dysuria R30.0 ; Urinary tract infection, site not specified N39.0 and Hematuria, unspecified R31.9 [facility] [address] [address] Mar, [facility] [id number] [place] [address] Mar, Left anterior knee pain M25.562 ; Abscess of buttock, left L02.31 and BMI 40.0-44.9, adult Z68.41 [facility] [id number] [place] [address] Mar, [facility] [id number] [place] [address] Feb, Abrasion of right ear canal, initial encounter S00.411A ; Left wrist pain M25.532 ; Right acute serous otitis media, recurrence not specified H65.01 and BMI 40.0-44.9, adult Z68.41 [facility] [id number] [place] [address] Jan, [facility] [id number] [place] [address] Jan, [facility] [id number] [place] [address] Jan, BMI 40.0-44.9, adult Z68.41 ; Pre-diabetes R73.03 ; Essential hypertension I10 ; Morbid (severe) obesity due to excess calories E66.01 ; Bilateral low back pain without sciatica M54.5 and Heartburn R12 [facility] [address], [place] [address] Jan, History of UTI Z87.440 ; Well woman exam with routine gynecological exam Z01.419 ; Screening for breast cancer Z12.31 ; Candidal vaginitis B37.3 and BMI 40.0-44.9, adult Z68.41 [facility] [id number] [place] [address] 05 Jan, 2018 [facility] [id number] [place] [address] Jan, Dysuria R30.0 ; Acute cystitis with hematuria N30.01 ; Yeast infection B37.9 and BMI 40.0-44.9, adult Z68.41 [facility] [id number] [place] [address] Dec, [facility] [id number] [place] [address] Dec, [facility] [id number] [place] [address] Nov, History of UTI Z87.440 [facility] [id number] [place] [address] Nov, UTI symptoms R39.9 ; Acute nasopharyngitis J00 and BMI 40.0-44.9, adult Z68.41 [facility] [id number] [place] [address] Nov, [facility] [id number] [place] [address] Nov, Yeast infection involving the vagina and surrounding area B37.3 [facility] [id number] [place] [address] Nov, Yeast infection involving the vagina and surrounding area B37.3 [facility] [id number] [place] [address] Nov, Yeast infection involving the vagina and surrounding area B37.3 ; Body mass index (BMI) of 40.0-44.9 in adult Z68.41 and Morbid (severe) obesity due to excess calories E66.01 [facility] [address] [address] 14 Oct, 2017 Abscess of groin, left L02.214 and Pre-diabetes R73.03 [facility] [address] [address] September, Pre-diabetes R73.03 [facility] [address] [address] Aug, [facility] [address] [address] Jul, Bilateral low back pain without sciatica M54.5 [facility] [address] [address] Jun, [facility] [address] [address] Jun, [facility] [address] [address] Jun, [facility] [address] [address] May, [facility] [address] [address] May, Ingrown left greater toenail L60.0 [facility] [address] [address] May, [facility] [address] [address] May, Influenza A J10.1 ; Fever R50.9 and Body aches R52 [facility] [address] [address] Apr, [facility] [id number] [place] [address] Apr, [facility] [id number] [place] [address] Apr, [facility] [id number] [place] [address] Apr, Abscess L02.91 and Obesity (BMI 30-39.9) E66.9 [facility] [id number] [place] [address] Apr, [facility] [address] [address] Apr, [facility] [id number] [place] [address] Mar, Acute non-recurrent maxillary sinusitis J01.00 [facility] [id number] [place] [address] Feb, Heartburn R12 [facility] [id number] [place] [address] Feb, Heartburn R12 ; Low back pain M54.5 ; Essential hypertension I10 ; Bilateral low back pain without sciatica M54.5 ; Anxiety F41.9 ; Pre-diabetes R73.03 ; Other obesity due to excess calories E66.09 ; Alternating constipation and diarrhea R19.8 ; Dyspepsia R10.13 ; Generalized abdominal pain R10.84 ; Rhinosinusitis J32.9 and Boil L02.92 [facility] [id number] [place] [address] Jan, Heartburn R12 [facility] [id number] [place] [address] Jan, [facility] [id number] [place] [address] Jan, [facility] [id number] [place] [address] Jan, Acute seasonal allergic rhinitis due to pollen J30.1 and Irritable bowel syndrome without diarrhea K58.9 [facility] [address] [address] Dec, Low back pain M54.5 and Acute cystitis with hematuria N30.01 [facility] [address] [address] Dec, Low back pain M54.5 and Acute cystitis with hematuria N30.[address] [address] Dec, Heartburn R12 ; Essential hypertension I10 ; Acute non-recurrent maxillary sinusitis J01.00 ; Bilateral low back pain without sciatica M54.5 ; Anxiety F41.9 ; Pre-diabetes R73.03 ; Pain in right foot M79.671 ; Pain in left foot M79.672 ; Other obesity due to excess calories E66.09 and Acute cystitis with hematuria N30.01 [facility] [address] [address] Dec, Bilateral low back pain without sciatica M54.5 ; Acute non-recurrent maxillary sinusitis J01.00 and Pre-diabetes R73.03 [facility] [id number] [place] [address] Oct, [facility] [address] [address] Aug, [facility] [address] [place] [address] Aug, Acute vaginitis N76.0 ; Urinary frequency R35.0 ; Screen for STD (sexually transmitted disease) Z11.3 and Abscess L02.[address] [address] Aug, Plantar wart of right foot B07.0 [facility] [id number] [place] [address] Jul, Plantar wart of right foot B07.0 [facility] [id number] [place] [address] Jun, [facility] [id number] [place] [address] Jun, Heartburn R12 ; Essential hypertension I10 ; Anxiety F41.9 ; Folliculitis L73.9 and Plantar wart of right foot B07.0 [facility] [id number] [place] [address] Jun, [facility] [id number] [place] [address] May, Low back pain M54.5 and Other chronic pain G89.29 [facility] [id number] [place] [address] May, [facility] [id number] [place] [address] May, [facility] [id number] [place] [address] May, Heartburn R12 ; Bilateral low back pain without sciatica M54.5 ; Essential hypertension I10 ; Long-term use of high-risk medication Z79.899 ; Anxiety F41.9 ; Impacted cerumen of right ear H61.21 ; Folliculitis L73.9 ; High risk bisexual behavior Z72.53 and General medical exam Z00.00 [facility] [id number] [place] [address] May, [facility] [id number] [place] [address] May, [facility] [id number] [place] [address] Mar, Acute nasopharyngitis J00 ; Acute intractable tension-type headache G44.201 and Cough R05 [facility] [id number] [place] [address] Jan, [facility] [id number] [place] [address] 29 Jan, 2016 Abscess L02.91 [facility] [id number] [place] [address] Jan, Urinary urgency R39.15 and Urinary tract infection without hematuria, site unspecified N39.0 [facility] [id number] [place] [address] Jan, [facility] [id number] [place] [address] Jan, [facility] [id number] [place] [address] Dec, [facility] [id number] [place] [address] Dec, Dermatofibroma D23.9 [facility] [id number] [place] [address] September, [facility] [id number] [place] [address] Aug, [facility] [id number] [place] [address] Aug, Pain in left knee M25.562 ; Heartburn R12 ; Bilateral low back pain without sciatica M54.5 ; Essential hypertension I10 ; Ingrown left big toenail L60.0 ; Chronic pain G89.29 ; Irritable bowel syndrome with constipation K58.9 and Skin infection L08.9 [facility] [id number] [place] [address] Aug, [facility] [id number] [place] [address] Jul, [facility] [address], [place] [address] Jun, [facility] [id number] [place] [address] Jun, [facility] [id number] [place] [address] Jun, [facility] [id number] [place] [address] Jun, [facility] [id number] [place] [address] Jun, Upper respiratory infection J06.9 ; Bilateral low back pain without sciatica M54.5 and Headache R51 [facility] [id number] [place] [address] May, [facility] [id number] [place] [address] Apr, Bilateral low back pain without sciatica M54.5 ; Upper respiratory infection J06.9 and Yeast dermatitis B37.2 [facility] [id number] [place] [address] Apr, [facility] [id number] [place] [address] Apr, [facility] [id number] [place] [address] Feb, [facility] [id number] [place] [address] Feb, [facility] [id number] [place] [address] Feb, [facility] [address] [place] [address] Feb, Essential hypertension I10 ; Heartburn R12 ; Irritable bowel syndrome without diarrhea K58.9 ; Bilateral low back pain, with sciatica presence unspecified M54.5 and Upper respiratory infection J06.9 [facility] [id number] [place] [address] Feb, [facility] [id number] [place] [address] 07 Feb, 2015 Generalized anxiety disorder F41.1 and Grief F43.20 [facility] [address] [address] Jan, [facility] [id number] [place] [address] Jan, Back pain 724.5 ; Upper respiratory infection 465.9 ; HTN (hypertension) 401.9 and Dyspepsia 536.8 [facility] [id number] [place] [address] Dec, [facility] [id number] [place] [address] Nov, Back pain 724.5 ; Abdominal pain, bilateral lower quadrant 789.03 ; GERD (gastroesophageal reflux disease) 530.81 ; Upper respiratory infection 465.9 ; Dysuria 788.1 and HTN (hypertension) 401.9 [facility] [id number] [place] [address] Nov, [facility] [id number] [place] [address] Nov, [facility] [id number] [place] [address] Nov, [facility] [id number] [place] [address] Nov, Cough 786.2 [facility] [id number] [place] [address] Nov, Cough 786.2 [facility] [id number] [place] [address] Oct, Unspecified episodic mood disorder 296.90 and Anxiety disorder, unspecified 300.00 [facility] [id number] [place] [address] Oct, Abdominal pain, left upper quadrant 789.02 ; Essential hypertension, benign 401.1 ; Irritable bowel syndrome 564.1 ; Abscess 682.9 ; Heartburn 787.1 ; Acute sinusitis, unspecified 461.9 ; Muscle spasm of back 724.8 ; Cough 786.2 and Skin tag 701.9 [facility] [id number] [place] [address] September, [facility] [id number] [place] [address] September, [facility] [id number] [place] [address] September, [facility] [id number] [place] [address] Aug, [facility] [id number] [place] [address] Aug, [facility] [id number] [place] [address] Jul, [facility] [id number] [place] [address] Jul, [facility] [id number] [place] [address] Jul, [facility] [id number] [place] [address] Jul, [facility] [id number] [place] [address] Jul, [facility] [id number] [place] [address] Jul, [facility] [id number] [place] [address] Jul, [facility] [place] [facility] [address] [id number] [place] [address] Jul, [facility] [place] [facility] [address] [id number] [place] [address] Jul, [facility] [place] [facility] [address] [facility] [id number] [place] [address] Jul, [facility] [place] [facility] [address] [id number] [place] [address] Jul, [facility] [place] [facility] [address] [id number] [place] [address] Jul, [facility] [place] [facility] [address] [id number] [place] [address] Jul, [facility] [place] [facility] [address] [facility] [id number] [place] [address] Jul, [facility] [place] [facility] [address] [id number] [place] [address] Jul, [facility] [place] [facility] [address] [id number] [place] [address] Jul, [facility] [place] [facility] [address] [facility] [id number] [place] [address] Jul, [facility] [place] [facility] [address] [id number] [place] [address] Jun, 2014 [facility] [place] [facility] [address] [id number] [place] [address] Jun, [facility] [place] [facility] [address] [id number] [place] [address] Jun, 2014 [facility] [place] [facility] [address] [id number] [place] [address] Jun, 2014 [facility] [place] [facility] [address] [facility] [id number] [place] [address] Jun, 2014 [facility] [place] [facility] [address] [id number] [place] [address] 13 Jun, 2014 [facility] [place] [facility] [address] [id number] [place] [address] Jun, 2014 [facility] [place] [facility] [address] [id number] [place] [address] Jun, 2014 [facility] [place] [facility] [address] [id number] [place] [address] Apr, [facility] [place] [facility] [address] [id number] [place] [address] Apr, [facility] [place] [facility] [address] [id number] [place] [address] Apr, [facility] [place] [facility] [address] [id number] [place] [address] Apr, [facility] [place] [facility] [address] [id number] [place] [address] Apr, [facility] [place] [facility] [address] [id number] [place] [address] Apr, [facility] [place] [facility] [address] [id number] [place] [address] 15 Apr, 2014 [facility] [place] [facility] [address] [id number] [place] [address] 15 Apr, 2014 [facility] [place] [facility] [address] [id number] [place] [address] Apr, [facility] [place] [facility] [address] [id number] [place] [address] Apr, [facility] [place] [facility] [address] [id number] [place] [address] Apr, [facility] [place] [facility] [address] [id number] [place] [address] Apr, [facility] [place] [facility] [address] [id number] [address] Apr, [facility] [place] [facility] [address] [id number] [place] [address] Apr, [facility] [place] [facility] [address] [id number] [place] [address] Apr, [facility] [place] [facility] [address] [id number] [place] [address] Feb, [facility] [place] [facility] [address] [id number] [place] [address] Feb, [facility] [place] [facility] [address] [id number] [place] [address] Feb, [facility] [place] [facility] [address] [id number] [place] [address] Feb, [facility] [place] [facility] [address] [id number] [place] [address] Feb, [facility] [place] [facility] [address] [id number] [place] [address] Feb, [facility] [place] [facility] [address] [id number] [place] [address] 08 Jan, 2014 [facility] [place] [facility] [address] [id number] [place] [address] 08 Jan, 2014 [facility] [place] [facility] [address] [id number], [place] [address] Jan, 2013 [facility] [place] [facility] [address] [id number], [place] [address] 05 Jan, 2013 [facility] [place] [facility] [address] [id number] [place] [address] 05 Jan, 2014 [facility] [place] [facility] [address] [id number] [place] [address] Jan, 2013 [facility] [place] [facility] [address] [id number] [place] [address] Dec, [facility] [place] [facility] [address] [id number] [place] [address] Dec, [facility] [place] [facility] [address] [id number] [place] [address] Dec, [facility] [place] [facility] [address] [id number] [place] [address] Dec, [facility] [place] [facility] [address] [id number] [place] [address] Nov, [facility] [place] [facility] [address] [id number] [place] [address] Nov, [facility] [place] [facility] [address] [id number] [place] [address] Nov, [facility] [place] [facility] [address] [id number] [place] [address] Nov, [facility] [place] [facility] [address] [id number] [place] [address] Nov, [facility] [place] [facility] [address] [id number] [place] [address] Nov, [facility] [place] [facility] [address] [id number] [place] [address] Nov, [facility] [place] [facility] [address] [id number] [place] [address] Nov, [facility] [place] [facility] [address] [id number] [place] [address] Oct, [facility] [place] [facility] [address] [id number] [place] [address] Oct, [facility] [place] [facility] [address] [id number] [place] [address] Oct, [facility] [place] [facility] [address] [id number] [place] [address] Oct, [facility] [place] [facility] [address] [id number] [place] [address] Oct, [facility] [place] [facility] [address] [id number] [place] [address] Oct, [facility] [place] [facility] [address] [id number] [place] [address] Oct, [facility] [place] [facility] [address] [id number] [place] [address] Oct, [facility] [place] [facility] [address] [id number] [place] [address] Oct, [facility] [place] [facility] [address] [id number] [place] [address] Oct, [facility] [place] [facility] [address] [id number] [place] [address] Oct, [facility] [place] [facility] [address] [id number] [place] [address] Oct, [facility] [place] [facility] [address] [id number] [place] [address] Oct, [facility] [place] [facility] [address] [id number] [place] [address] Oct, [facility] [place] [facility] [address] [id number], [place] [address] Oct, [facility] [place] [facility] [address] [id number], [place] [address] Oct, [facility] [place] [facility] [address] [id number], [place] [address] 16 Oct, 2013 [facility] [place] [facility] [address] [id number] [place] [address] Oct, [facility] [place] [facility] [address] [id number], [place] [address] 13 Oct, 2013 [facility] [place] [facility] [address] [id number] [address] 13 Oct, 2013 [facility] [place] [facility] [address] [id number], [place] [address] Oct, [facility] [place] [facility] [address] [id number] [place] [address] Oct, [facility] [place] [facility] [address] [id number] [place] [address] Oct, [facility] [place] [facility] [address] [id number] [place] [address] Oct, [facility] [place] [facility] [address] [id number] [place] [address] Oct, [facility] [place] [facility] [address] [id number] [place] [address] Oct, [facility] [place] [facility] [address] [id number] [place] [address] Oct, [facility] [place] [facility] [address] [id number] [place] [address] Oct, [facility] [place] [facility] [address] [id number] [place] [address] Oct, [facility] [place] [facility] [address] [id number] [place] [address] Oct, [facility] [place] [facility] [address] [id number] [place] [address] September, [facility] [place] [facility] [address] [id number] [place] [address] September, [facility] [place] [facility] [address] [id number] [place] [address] September, [facility] [place] [facility] [address] [id number] [place] [address] September, [facility] [place] [facility] [address] [id number] [place] [address] September, [facility] [place] [facility] [address] [id number] [place] [address] September, [facility] [place] [facility] [address] [id number] [place] [address] September, [facility] [address] [id number] [place] [address] September, [facility] [place] [facility] [address] [id number] [place] [address] September, [facility] [place] [facility] [address] [id number] [place] [address] September, [facility] [place] [facility] [address] [id number] [place] [address] September, [facility] [place] [facility] [address] [id number] [place] [address] September, [facility] [place] [facility] [address] [id number] [place] [address] September, [facility] [place] [facility] [address] [id number] [place] [address] September, [facility] [place] [facility] [address] [id number] [place] [address] September, [facility] [place] [facility] [address] [id number] [place] [address] September, [facility] [place] [facility] [address] [id number] [place] [address] September, [facility] [place] [facility] [address] [id number] [place] [address] September, [facility] [place] [facility] [address] [id number] [place] [address] Aug, [facility] [place] [facility] [address] [id number] [place] [address] Aug, [facility] [place] [facility] [address] [id number] [place] [address] Aug, [facility] [place] [facility] [address] [id number] [place] [address] Aug, [facility] [place] [facility] [address] [id number] [place] [address] Aug, [facility] [place] [facility] [address] [id number] [place] [address] Aug, [facility] [place] [facility] [address] [id number] [place] [address] Jul, [facility] [place] [facility] [address] [id number] [place] [address] Jul, [facility] [place] [facility] [address] [id number] [place] [address] Jul, [facility] [place] [facility] [address] [id number] [place] [address] Jul, [facility] [place] [facility] [address] [id number] [place] [address] Jun, [facility] [place] [facility] [address] [id number] [place] [address] Jun, [facility] [place] [facility] [address] [id number] [place] [address] Jun, [facility] [place] [facility] [address] [id number] [place] [address] Jun, [facility] [place] [facility] [address] [id number] [place] [address] Mar, [facility] [place] [facility] [address] [id number] [place] [address] 14 Mar, 2013 [facility] [place] [facility] [address] [id number] [place] [address] Mar, [facility] [place] [facility] [address] [id number] [place] [address] Mar, [facility] [place] [facility] [address] [id number] [place] [address] Feb, [facility] [place] [facility] [address] [id number] [place] [address] Feb, [facility] [address] [id number] [place] [address] Feb, [facility] [address] [id number] [place] [address] Jan, [facility] [address] [id number] [place] [address] Jan, [facility] [address] [id number] [place] [address] Jan, [facility] [address] [id number] [place] [address] Jan, [facility] [address] [id number] [place] [address] Dec, [facility] [address] [id number] [place] [address] Dec, [facility] [address] [id number] [place] [address] Dec, [facility] [address] [id number] [place] [address] Dec, [facility] [address] [id number] [place] [address] Nov, [facility] [place] [facility] [address] [id number] [place] [address] Nov, [facility] [address] [id number] [place] [address] Nov, [facility] [place] [facility] [address] [id number] [place] [address] Nov, [facility] [place] [facility] [address] [id number] [place] [address] Nov, [facility] [place] [facility] [address] [id number] [place] [address] Nov, [facility] [address] [id number] [place] [address] Oct, [facility] [place] [facility] [address] [id number] [place] [address] Oct, [facility] [place] [facility] [address] [id number] [place] [address] Oct, [facility] [place] [facility] [address] [id number] [place] [address] Oct, [facility] [place] [facility] [address] [id number] [place] [address] 17 Oct, 2012 [facility] [place] [facility] [address] [id number] [place] [address] 16 Oct, 2012 [facility] [place] [facility] [address] [id number] [place] [address] 14 Oct, 2012 [facility] [place] [facility] [address] [id number] [place] [address] 13 Oct, 2012 [facility] [place] [facility] [address] [id number] [place] [address] Oct, [facility] [place] [facility] [address] [id number], [place] [address] Oct, [facility] [place] [facility] [address] [id number] [place] [address] September, [facility] [place] [facility] [address] [id number], [place] [address] September, [facility] [place] [facility] [address] [id number] [place] [address] September, [facility] [place] [facility] [address] [id number] [place] [address] Aug, [facility] [place] [facility] [address] [id number], [place] [address] Aug, [facility] [place] [facility] [address] [id number], [place] [address] Aug, [facility] [address] [id number] [place] [address] Aug, [facility] [address] [id number] [place] [address] Jul, [facility] [address] [id number] [place] [address] Jul, [facility] [address] [id number] [place] [address] Jul, [facility] [address] [id number] [place] [address] Jul, [facility] [address] [id number] [place] [address] Jul, [facility] [address] [id number] [place] [address] Jul, [facility] [address] [id number] [place] [address] May, [facility] [address] [id number] [place] [address] May, [facility] [address] [id number] [place] [address] May, [facility] [address] [id number] [place] [address] May, [facility] [place] [facility] [address] [id number] [place] [address] May, [facility] [place] [facility] [address] [id number] [place] [address] May, [facility] [place] [facility] [address] [id number] [place] [address] May, [facility] [place] [facility] [address] [id number] [place] [address] 18 May, 2012 [facility] [place] [facility] [address] [id number] [place] [address] 17 May, 2012 [facility] [place] [facility] [address] [id number] [place] [address] 17 May, 2012 [facility] [place] [facility] [address] [id number] [place] [address] May, [facility] [place] [facility] [address] [id number] [place] [address] Apr, [facility] [place] [facility] [address] [id number] [place] [address] Apr, [facility] [place] [facility] [address] [id number] [place] [address] Apr, [facility] [place] [facility] [address] [id number] [place] [address] Apr, [facility] [place] [facility] [address] [id number] [place] [address] Apr, [facility] [place] [facility] [address] [id number] [place] [address] Apr, [facility] [place] [facility] [address] [id number] [place] [address] Mar, [facility] [place] [facility] [address] [id number] [place] [address] Mar, [facility] [place] [facility] [address] [id number] [place] [address] Mar, [facility] [place] [facility] [address] [id number] [place] [address] Mar, [facility] [place] [facility] [address] [id number] [place] [address] Mar, [facility] [place] [facility] [address] [id number] [place] [address] Mar, [facility] [place] [facility] [address] [id number] [place] [address] Mar, [facility] [place] [facility] [address] [id number] [place] [address] 05 Mar, 2012 [facility] [place] [facility] [address] [id number] [place] [address] Feb, [facility] [place] [facility] [address] [id number] [place] [address] 23 Feb, 2012 [facility] [place] [facility] [address] [id number] [place] [address] 16 Feb, 2012 [facility] [place] [facility] [address] [id number] [place] [address] 15 Feb, 2012 [facility] [place] [facility] [address] [id number] [place] [address] 15 Feb, 2012 [facility] [place] [facility] [address] [id number] [place] [address] 13 Feb, 2012 [facility] [place] [facility] [address] [id number], [place] [address] Feb, [facility] [place] [facility] [address] [id number], [place] [address] Feb, [facility] [place] [facility] [address] [id number], [place] [address] Feb, [facility] [place] [facility] [address] [id number], [place] [address] Feb, [facility] [place] [facility] [address] [id number], [place] [address] Feb, [facility] [place] [facility] [address] [id number], [place] [address] Feb, [facility] [place] [facility] [address] [id number], [place] [address] Feb, [facility] [place] [facility] [address] [id number], [place] [address] Feb, [facility] [place] [facility] [address] [id number] [place] [address] 11 Feb, 2012 [facility] [place] [facility] [address] [id number] [place] [address] Feb, [facility] [place] [facility] [address] [id number] [place] [address] Feb, [facility] [place] [facility] [address] [id number] [place] [address] 04 Feb, 2012 [facility] [place] [facility] [address] [id number] [place] [address] 19 Jan, 2012 [facility] [place] [facility] [address] [id number] [place] [address] 13 Jan, 2012 [facility] [place] [facility] [address] [id number] [place] [address] 11 Jan, 2012 [facility] [place] [facility] [address] [id number] [place] [address] 10 Jan, 2012 [facility] [place] [facility] [address] [id number] [place] [address] 05 Jan, 2012 [facility] [place] [facility] [address] [id number] [place] [address] Dec, [facility] [place] [facility] [address] [id number] [place] [address] Dec, [facility] [place] [facility] [address] [id number] [place] [address] Dec, [facility] [place] [facility] [address] [id number] [place] [address] Dec, [facility] [place] [facility] [address] [id number] [place] [address] Dec, [facility] [place] [facility] [address] [id number] [place] [address] Dec, [facility] [place] [facility] [address] [id number] [place] [address] Nov, [facility] [place] [facility] [address] [id number] [place] [address] Nov, [facility] [place] [facility] [address] [id number] [place] [address] Nov, [facility] [place] [facility] [address] [id number] [place] [address] Nov, [facility] [place] [facility] [address] [id number] [place] [address] Nov, [facility] [place] [facility] [address] [id number] [place] [address] Oct, [facility] [place] [facility] [address] [id number] [place] [address] Oct, [facility] [place] [facility] [address] [id number] [place] [address] Oct, [facility] [place] [facility] [address] [id number] [place] [address] September, [facility] [place] [facility] [address] [id number] [place] [address] September, [facility] [place] [facility] [address] [id number] [place] [address] September, [facility] [place] [facility] [address] [id number] [place] [address] September, [facility] [place] [facility] [address] [id number] [place] [address] September, [facility] [place] [facility] [address] [id number] [place] [address] September, [facility] [place] [facility] [address] [id number] [place] [address] Aug, [facility] [place] [facility] [address] [id number] [place] [address] Aug, [facility] [place] [facility] [address] [id number] [place] [address] Aug, [facility] [address] [id number] [place] [address] Jun, [facility] [address] [id number] [place] [address] Jun, [facility] [address] [id number] [place] [address] Jun, [facility] [address] [id number] [place] [address] Jun, [facility] [address] [id number] [place] [address] May, [facility] [address] [id number] [place] [address] May, [facility] [address] [facility] [id number] [place] [address] May, [facility] [address] [id number] [place] [address] May, [facility] [address] [facility] [id number] [place] [address] May, [facility] [address] [facility] [id number] [place] [address] Apr, [facility] [address] [id number] [place] [address] Apr, [facility] [address] [id number] [place] [address] Apr, [facility] [address] [id number] [place] [address] Apr, [facility] [place] [facility] [address] [id number] [place] [address] Apr, [facility] [address] [facility] [id number] [place] [address] 16 Apr, 2011 [facility] [place] [facility] [address] [id number] [place] [address] 16 Apr, 2011 [facility] [place] [facility] [address] [id number] [place] [address] Mar, [facility] [place] [facility] [address] [id number] [place] [address] Mar, [facility] [place] [facility] [address] [id number] [place] [address] Mar, [facility] [place] [facility] [address] [id number] [place] [address] Feb, [facility] [place] [facility] [address] [id number] [place] [address] Feb, [facility] [place] [facility] [address] [id number] [place] [address] Feb, [facility] [place] [facility] [address] [id number] [place] [address] Feb, [facility] [place] [facility] [address] [id number] [place] [address] Feb, [facility] [place] [facility] [address] [id number] [place] [address] Feb, [facility] [place] [facility] [address] [id number] [place] [address] 13 Jan, 2011 [facility] [place] [facility] [address] [id number] [place] [address] Jan, [facility] [place] [facility] [address] [id number] [place] [address] September, [facility] [place] [facility] [address] [id number] [place] [address] Jun, [facility] [place] [facility] [address] [id number] [place] [address] Apr, [facility] [place] [facility] [address] [id number] [place] [address] Apr, [facility] [address] [id number] [address] Apr, [facility] [address] [facility] [id number] [address] Apr, [facility] [address] [id number] [address] Apr, [facility] [id number] [address] Mar, [facility] [id number] [address] Mar, [facility] [id number] [address] Mar, [facility] [id number] [address] Mar, [facility] [id number] [address] Feb, [facility] [id number] [address] Jan, [facility] [id number] [address] Mar, [facility] [address] [id number] [address] Jan, [facility] [address] [id number] [address] Oct, [facility] [address] [id number] [address] Apr, IMMUNIZATIONS No Known Immunizations SOCIAL HISTORY Never Assessed REASON FOR VISIT [facility] [place] PLAN OF [...]
--- OUTSIDE RECORDS SUMMARY | 2018-09-28 04:11 | XMS REPORT ---
Author Author JONATHON BEARD [facility] Address [address] [place] [address] Care Team Providers Care Exhauster Engineer Name Role Phone JONATHON BEARD Unavailable PROBLEMS Type Condition ICD9-CM Code SBC42-UZ Code Onset Dates Condition Status SNOMED Code Problem Irritable bowel syndrome without diarrhea K58.9 Active 52759307 Problem Bilateral low back pain without sciatica M54.5 Active 172199098 Problem Essential hypertension I10 Active 15136963 Problem Hypertriglyceridemia E78.1 Active 480090749 Problem Dysuria R30.0 Active 34677105 Problem Morbid (severe) obesity due to excess calories E66.01 Active 045361075 Problem Pre-diabetes R73.03 Active 167569119 Problem Anxiety F41.9 Active 16464089 Problem Body mass index (BMI) of 40.0-44.9 in adult Z68.41 Active 652697101 Problem Alternating constipation and diarrhea R19.8 Active 565199582 ALLERGIES No Information ENCOUNTERS Encounter Location Date Diagnosis [place] [id number] [place] [address] 18 Apr, 2018 Urinary tract infection, site not specified N39.0 [place] [id number] [place] [address] Apr, Dysuria R30.0 ; Urinary tract infection, site not specified N39.0 and Hematuria, unspecified R31.9 [place] [id number] [place] [address] Mar, [place] [address] [address] 13 Mar, 2018 Left anterior knee pain M25.562 ; Abscess of buttock, left L02.31 and BMI 40.0-44.9, adult Z68.41 [place] [id number] [place] [address] Mar, [facility] [id number] [place] [address] Feb, Abrasion of right ear canal, initial encounter S00.411A ; Left wrist pain M25.532 ; Right acute serous otitis media, recurrence not specified H65.01 and BMI 40.0-44.9, adult Z68.41 [place] [address] [address] Jan, [place] [address] [address] Jan, [place] [address] [address] Jan, BMI 40.0-44.9, adult Z68.41 ; Pre-diabetes R73.03 ; Essential hypertension I10 ; Morbid (severe) obesity due to excess calories E66.01 ; Bilateral low back pain without sciatica M54.5 and Heartburn R12 [place] [id number] [place] [address] 19 Jan, 2018 History of UTI Z87.440 ; Well woman exam with routine gynecological exam Z01.419 ; Screening for breast cancer Z12.31 ; Candidal vaginitis B37.3 and BMI 40.0-44.9, adult Z68.41 [place] [id number] [place] [address] 05 Jan, 2018 [facility] [id number] [place] [address] Jan, Dysuria R30.0 ; Acute cystitis with hematuria N30.01 ; Yeast infection B37.9 and BMI 40.0-44.9, adult Z68.41 [place] [id number] [place] [address] Dec, [place] [address] [place] [address] Dec, [place] [id number] [place] [address] Nov, History of UTI Z87.440 [place] [id number] [place] [address] Nov, UTI symptoms R39.9 ; Acute nasopharyngitis J00 and BMI 40.0-44.9, adult Z68.41 [place] [id number] [place] [address] Nov, [place] [address] [address] Nov, Yeast infection involving the vagina and surrounding area B37.3 [place] [id number] [place] [address] Nov, Yeast infection involving the vagina and surrounding area B37.3 [place] [id number] [place] [address] Nov, Yeast infection involving the vagina and surrounding area B37.3 ; Body mass index (BMI) of 40.0-44.9 in adult Z68.41 and Morbid (severe) obesity due to excess calories E66.01 [place] [id number] [place] [address] Oct, Abscess of groin, left L02.214 and Pre-diabetes R73.03 [place] [id number] [place] [address] September, Pre-diabetes R73.03 [place] [id number] [place] [address] Aug, [place] [id number] [place] [address] Jul, Bilateral low back pain without sciatica M54.5 [place] [id number] [place] [address] Jun, [facility] [id number] [place] [address] Jun, [facility] [id number] [place] [address] Jun, [facility] [id number] [place] [address] May, [facility] [id number] [place] [address] May, Ingrown left greater toenail L60.0 [facility] [address] [address] May, [facility] [id number] [place] [address] May, Influenza A J10.1 ; Fever R50.9 and Body aches R52 [facility] [id number] [place] [address] Apr, [facility] [id number] [place] [address] Apr, [facility] [id number] [place] [address] Apr, [facility] [id number] [place] [address] Apr, Abscess L02.91 and Obesity (BMI 30-39.9) E66.9 [facility] [id number] [place] [address] Apr, [facility] [id number] [place] [address] Apr, [facility] [id number] [place] [address] Mar, Acute non-recurrent maxillary sinusitis J01.00 [facility] [id number] [place] [address] Feb, Heartburn R12 [place] [address] [address] Feb, Heartburn R12 ; Low back pain M54.5 ; Essential hypertension I10 ; Bilateral low back pain without sciatica M54.5 ; Anxiety F41.9 ; Pre-diabetes R73.03 ; Other obesity due to excess calories E66.09 ; Alternating constipation and diarrhea R19.8 ; Dyspepsia R10.13 ; Generalized abdominal pain R10.84 ; Rhinosinusitis J32.9 and Boil L02.92 [place] [address] [address] Jan, Heartburn R12 [place] [address] [address] Jan, [place] [address] [address] Jan, [place] [address] [address] Jan, Acute seasonal allergic rhinitis due to pollen J30.1 and Irritable bowel syndrome without diarrhea K58.9 [place] [id number] [place] [address] Dec, Low back pain M54.5 and Acute cystitis with hematuria N30.01 [place] [id number] [place] [address] Dec, Low back pain M54.5 and Acute cystitis with hematuria N30.01 [place] [address] [address] Dec, Heartburn R12 ; Essential hypertension I10 ; Acute non-recurrent maxillary sinusitis J01.00 ; Bilateral low back pain without sciatica M54.5 ; Anxiety F41.9 ; Pre-diabetes R73.03 ; Pain in right foot M79.671 ; Pain in left foot M79.672 ; Other obesity due to excess calories E66.09 and Acute cystitis with hematuria N30.01 [place] [address] [address] Dec, Bilateral low back pain without sciatica M54.5 ; Acute non-recurrent maxillary sinusitis J01.00 and Pre-diabetes R73.03 [place] [address] [address] Oct, [facility] [place] [address] [address] Aug, [facility] [address] [address] Aug, Acute vaginitis N76.0 ; Urinary frequency R35.0 ; Screen for STD (sexually transmitted disease) Z11.3 and Abscess L02.91 [place] [address] [address] Aug, Plantar wart of right foot B07.0 [place] [address] [address] Jul, Plantar wart of right foot B07.0 [place] [address] [address] Jun, [place] [address] [address] Jun, Heartburn R12 ; Essential hypertension I10 ; Anxiety F41.9 ; Folliculitis L73.9 and Plantar wart of right foot B07.0 [place] [address] [address] 07 Jun, 2016 [facility] [place] [address] [address] May, Low back pain M54.5 and Other chronic pain G89.29 [place] [address] [address] May, [facility] [address] [address] May, [facility] [address] [address] May, Heartburn R12 ; Bilateral low back pain without sciatica M54.5 ; Essential hypertension I10 ; Long-term use of high-risk medication Z79.899 ; Anxiety F41.9 ; Impacted cerumen of right ear H61.21 ; Folliculitis L73.9 ; High risk bisexual behavior Z72.53 and General medical exam Z00.00 [place] [address] [address] May, [place] [address] [address] May, [place] [address] [address] Mar, Acute nasopharyngitis J00 ; Acute intractable tension-type headache G44.201 and Cough R05 [place] [address] [address] Jan, [facility] [address] [address] Jan, Abscess L02.91 [facility] [address] [address] Jan, Urinary urgency R39.15 and Urinary tract infection without hematuria, site unspecified N39.0 [facility] [address] [address] Jan, [facility] [address] [address] Jan, [facility] [address] [address] Dec, [facility] [address] [address] Dec, Dermatofibroma D23.9 [facility] [id number] [place] [address] September, [facility] [id number] [place] [address] Aug, [facility] [id number] [place] [address] Aug, Pain in left knee M25.562 ; Heartburn R12 ; Bilateral low back pain without sciatica M54.5 ; Essential hypertension I10 ; Ingrown left big toenail L60.0 ; Chronic pain G89.29 ; Irritable bowel syndrome with constipation K58.9 and Skin infection L08.9 [facility] [id number] [place] [address] Aug, [facility] [id number] [place] [address] Jul, [facility] [id number] [place] [address] Jun, [facility] [address] [address] Jun, [facility] [address] [address] Jun, [facility] [id number] [address] Jun, [facility] [id number] [place] [address] Jun, Upper respiratory infection J06.9 ; Bilateral low back pain without sciatica M54.5 and Headache R51 [facility] [address] [address] May, [facility] [id number] [place] [address] Apr, Bilateral low back pain without sciatica M54.5 ; Upper respiratory infection J06.9 and Yeast dermatitis B37.2 [facility] [id number] [place] [address] Apr, [facility] [id number] [place] [address] Apr, [facility] [address] [address] Feb, [facility] [id number] [place] [address] Feb, [facility] [id number] [place] [address] Feb, [facility] [address] [address] Feb, Essential hypertension I10 ; Heartburn R12 ; Irritable bowel syndrome without diarrhea K58.9 ; Bilateral low back pain, with sciatica presence unspecified M54.5 and Upper respiratory infection J06.9 [place] [id number] [place] [address] Feb, [facility] [id number] [place] [address] Feb, Generalized anxiety disorder F41.1 and Grief F43.20 [facility] [id number] [place] [address] Jan, [facility] [id number] [place] [address] Jan, Back pain 724.5 ; Upper respiratory infection 465.9 ; HTN (hypertension) 401.9 and Dyspepsia 536.8 [facility] [id number] [place] [address] Dec, [facility] [id number] [place] [address] Nov, Back pain 724.5 ; Abdominal pain, bilateral lower quadrant 789.03 ; GERD (gastroesophageal reflux disease) 530.81 ; Upper respiratory infection 465.9 ; Dysuria 788.1 and HTN (hypertension) 401.9 [facility] [id number] [place] [address] Nov, [facility] [address] [address] Nov, [facility] [id number] [place] [address] Nov, [place] [id number] [place] [address] Nov, Cough 786.2 [place] [id number] [place] [address] Nov, Cough 786.2 [facility] [id number] [place] [address] Oct, Unspecified episodic mood disorder 296.90 and Anxiety disorder, unspecified 300.00 [facility] [id number] [place] [address] Oct, Abdominal pain, left upper quadrant 789.02 ; Essential hypertension, benign 401.1 ; Irritable bowel syndrome 564.1 ; Abscess 682.9 ; Heartburn 787.1 ; Acute sinusitis, unspecified 461.9 ; Muscle spasm of back 724.8 ; Cough 786.2 and Skin tag 701.9 [facility] [id number] [place] [address] September, [facility] [id number] [place] [address] September, [facility] [id number] [place] [address] September, [facility] [id number] [place] [address] 14 Aug, 2014 [facility] [place] [facility] [address] [id number] [place] [address] 13 Aug, 2014 [facility] [place] [facility] [address] [id number] [place] [address] 30 Jul, 2014 [facility] [place] [facility] [address] [id number] [place] [address] 30 Jul, 2014 [facility] [place] [facility] [address] [id number] [place] [address] Jul, [facility] [place] [facility] [address] [id number] [place] [address] Jul, [facility] [place] [facility] [address] [id number] [place] [address] Jul, [facility] [place] [facility] [address] [id number] [place] [address] Jul, [facility] [place] [facility] [address] [id number] [place] [address] Jul, [facility] [place] [facility] [address] [id number] [place] [address] Jul, [facility] [place] [facility] [address] [id number] [place] [address] Jul, [facility] [place] [facility] [address] [id number] [place] [address] Jul, [facility] [place] [facility] [address] [id number] [place] [address] Jul, [facility] [place] [facility] [address] [id number] [place] [address] Jul, [facility] [place] [facility] [address] [id number] [place] [address] Jul, [facility] [place] [facility] [address] [id number] [place] [address] Jul, [facility] [place] [facility] [address] [id number] [place] [address] Jul, 2014 [facility] [place] [facility] [address] [id number] [place] [address] Jul, 2014 [facility] [place] [facility] [address] [id number] [place] [address] Jul, 2014 [facility] [place] [facility] [address] [id number] [place] [address] Jun, 2014 [facility] [place] [facility] [address] [id number] [place] [address] Jun, 2014 [facility] [place] [facility] [address] [id number] [place] [address] Jun, 2014 [facility] [place] [facility] [address] [facility] [id number] [place] [address] Jun, 2014 [facility] [place] [facility] [address] [facility] [id number] [place] [address] Jun, 2014 [facility] [place] [facility] [address] [facility] [id number] [place] [address] Jun, 2014 [facility] [place] [facility] [address] [facility] [id number] [place] [address] Jun, 2014 [facility] [place] [facility] [address] [facility] [id number] [place] [address] Jun, 2014 [facility] [place] [facility] [address] [id number] [place] [address] Apr, [facility] [place] [facility] [address] [id number] [place] [address] Apr, [facility] [place] [facility] [address] [id number] [place] [address] Apr, [facility] [place] [facility] [address] [id number] [place] [address] Apr, [facility] [place] [facility] [address] [facility] [id number] [place] [address] Apr, [facility] [place] [facility] [address] [id number] [place] [address] 18 Apr, 2014 [facility] [place] [facility] [address] [id number] [place] [address] Apr, [facility] [place] [facility] [address] [id number] [place] [address] Apr, [facility] [place] [facility] [address] [id number] [place] [address] Apr, [facility] [place] [facility] [address] [id number] [place] [address] Apr, [facility] [place] [facility] [address] [id number] [place] [address] Apr, [facility] [place] [facility] [address] [id number] [place] [address] Apr, [facility] [place] [facility] [address] [id number] [place] [address] Apr, [facility] [place] [facility] [address] [id number] [place] [address] Apr, [facility] [place] [facility] [address] [id number] [place] [address] Apr, [facility] [place] [facility] [address] [id number] [address] Feb, [facility] [place] [facility] [address] [id number] [address] Feb, [facility] [place] [facility] [address] [id number] [place] [address] Feb, [facility] [place] [facility] [address] [id number] [place] [address] Feb, [facility] [place] [facility] [address] [id number] [place] [address] Feb, [facility] [place] [facility] [address] [id number] [place] [address] Feb, [facility] [place] [facility] [address] [id number] [place] [address] Jan, 2013 [facility] [place] [facility] [address] [id number] [place] [address] Jan, 2013 [facility] [place] [facility] [address] [id number] [place] [address] Jan, 2013 [facility] [place] [facility] [address] [id number] [place] [address] Jan, 2013 [facility] [place] [facility] [address] [id number] [place] [address] Jan, 2013 [facility] [place] [facility] [address] [id number] [place] [address] Jan, 2013 [facility] [place] [facility] [address] [id number] [place] [address] Dec, [facility] [place] [facility] [address] [id number] [place] [address] Dec, [facility] [place] [facility] [address] [id number] [place] [address] Dec, [facility] [place] [facility] [address] [id number] [place] [address] Dec, [facility] [place] [facility] [address] [id number] [place] [address] Nov, [facility] [place] [facility] [address] [id number] [place] [address] Nov, [facility] [place] [facility] [address] [id number] [place] [address] Nov, [facility] [place] [facility] [address] [id number] [place] [address] Nov, [facility] [place] [facility] [address] [id number] [place] [address] Nov, [facility] [place] [facility] [address] [id number] [place] [address] Nov, [facility] [place] [facility] [address] [id number] [place] [address] Nov, [facility] [place] [facility] [address] [id number] [place] [address] Nov, [facility] [place] [facility] [address] [id number] [place] [address] Oct, [facility] [place] [facility] [address] [id number] [place] [address] Oct, [facility] [place] [facility] [address] [id number] [place] [address] Oct, [facility] [place] [facility] [address] [id number] [place] [address] Oct, [facility] [place] [facility] [address] [id number] [place] [address] Oct, [facility] [place] [facility] [address] [id number] [place] [address] Oct, [facility] [place] [facility] [address] [id number] [place] [address] Oct, [facility] [place] [facility] [address] [id number] [place] [address] Oct, [facility] [place] [facility] [address] [id number] [place] [address] Oct, [facility] [place] [facility] [address] [id number] [place] [address] Oct, [facility] [place] [facility] [address] [id number] [place] [address] Oct, [facility] [place] [facility] [address] [id number] [place] [address] Oct, [facility] [place] [facility] [address] [id number] [place] [address] 18 Oct, 2013 [facility] [place] [facility] [address] [id number] [place] [address] 18 Oct, 2013 [facility] [place] [facility] [address] [id number] [place] [address] 17 Oct, 2013 [facility] [place] [facility] [address] [id number] [place] [address] 17 Oct, 2013 [facility] [place] [facility] [address] [id number] [place] [address] 16 Oct, 2013 [facility] [place] [facility] [address] [id number] [place] [address] 16 Oct, 2013 [facility] [place] [facility] [address] [id number] [place] [address] Oct, [facility] [place] [facility] [address] [id number] [place] [address] Oct, [facility] [place] [facility] [address] [id number] [place] [address] Oct, [facility] [place] [facility] [address] [id number] [place] [address] Oct, [facility] [place] [facility] [address] [id number] [place] [address] Oct, [facility] [place] [facility] [address] [id number] [place] [address] Oct, [facility] [place] [facility] [address] [id number] [address] Oct, [facility] [place] [facility] [address] [id number], [place] [address] Oct, [facility] [place] [facility] [address] [id number], [place] [address] Oct, [facility] [place] [facility] [address] [id number], [place] [address] Oct, [facility] [place] [facility] [address] [id number] [place] [address] Oct, [facility] [place] [facility] [address] [id number] [place] [address] Oct, [facility] [place] [facility] [address] [id number] [place] [address] September, [facility] [place] [facility] [address] [id number] [place] [address] September, [facility] [place] [facility] [address] [id number] [place] [address] September, [facility] [place] [facility] [address] [id number] [place] [address] September, [facility] [place] [facility] [address] [id number] [place] [address] September, [facility] [place] [facility] [address] [id number] [place] [address] September, [facility] [place] [facility] [address] [id number] [place] [address] September, [facility] [place] [facility] [address] [id number] [place] [address] September, [facility] [place] [facility] [address] [id number] [place] [address] September, [facility] [place] [facility] [address] [id number] [place] [address] September, [facility] [place] [facility] [address] [id number] [place] [address] September, [facility] [place] [facility] [address] [id number] [place] [address] September, [facility] [place] [facility] [address] [id number] [place] [address] September, [facility] [place] [facility] [address] [id number] [place] [address] September, [facility] [place] [facility] [address] [id number] [place] [address] September, [facility] [place] [facility] [address] [id number] [place] [address] September, [facility] [place] [facility] [address] [id number] [place] [address] September, [facility] [place] [facility] [address] [id number] [place] [address] September, [facility] [place] [facility] [address] [id number] [place] [address] Aug, [facility] [place] [facility] [address] [id number] [place] [address] Aug, [facility] [place] [facility] [address] [id number] [place] [address] Aug, [facility] [place] [facility] [address] [id number] [place] [address] Aug, [facility] [place] [facility] [address] [id number] [place] [address] Aug, [facility] [place] [facility] [address] [id number] [place] [address] Aug, [facility] [place] [facility] [address] [id number] [place] [address] Jul, [facility] [place] [facility] [address] [id number], [place] [address] Jul, [facility] [place] [facility] [address] [id number] [place] [address] Jul, [facility] [place] [facility] [address] [id number] [place] [address] Jul, [facility] [place] [facility] [address] [id number] [place] [address] Jun, [facility] [place] [facility] [address] [id number] [place] [address] 18 Jun, 2013 [facility] [address] [id number] [place] [address] Jun, [facility] [place] [facility] [address] [id number] [place] [address] 18 Jun, 2013 [facility] [address] [id number] [place] [address] 14 Mar, 2013 [facility] [place] [facility] [address] [id number] [place] [address] 14 Mar, 2013 [facility] [place] [facility] [address] [id number] [place] [address] Mar, [facility] [place] [facility] [address] [id number] [place] [address] Mar, [facility] [place] [facility] [address] [id number] [place] [address] Feb, [facility] [place] [facility] [address] [id number] [place] [address] Feb, [facility] [place] [facility] [address] [id number] [place] [address] Feb, [facility] [place] [facility] [address] [id number] [place] [address] Jan, [facility] [place] [facility] [address] [id number] [place] [address] 20 Jan, 2013 [facility] [place] [facility] [address] [id number] [place] [address] 12 Jan, 2013 [facility] [place] [facility] [address] [id number] [place] [address] 05 Jan, 2013 [facility] [place] [facility] [address] [id number] [place] [address] Dec, [facility] [place] [facility] [address] [id number] [place] [address] Dec, [facility] [place] [facility] [address] [id number] [place] [address] Dec, [facility] [place] [facility] [address] [id number] [place] [address] Dec, [facility] [place] [facility] [address] [id number] [place] [address] Nov, [facility] [place] [facility] [address] [id number] [place] [address] Nov, [facility] [place] [facility] [address] [id number] [place] [address] Nov, [facility] [place] [facility] [address] [id number] [place] [address] Nov, [facility] [place] [facility] [address] [id number] [place] [address] Nov, [facility] [place] [facility] [address] [id number] [place] [address] Nov, [facility] [place] [facility] [address] [id number] [place] [address] Oct, [facility] [place] [facility] [address] [id number] [place] [address] Oct, [facility] [place] [facility] [address] [id number] [place] [address] Oct, [facility] [place] [facility] [address] [id number] [place] [address] Oct, [facility] [place] [facility] [address] [id number] [place] [address] Oct, [facility] [place] [facility] [address] [id number] [place] [address] Oct, [facility] [place] [facility] [address] [id number] [place] [address] Oct, [facility] [place] [facility] [address] [id number] [place] [address] Oct, [facility] [address] [id number] [place] [address] Oct, [facility] [address] [id number] [place] [address] Oct, [facility] [address] [id number] [place] [address] September, [facility] [address] [id number] [place] [address] September, [facility] [address] [id number] [place] [address] September, [facility] [address] [id number] [place] [address] Aug, [facility] [address] [id number] [place] [address] Aug, [facility] [address] [id number] [place] [address] Aug, [facility] [address] [id number] [place] [address] Aug, [facility] [address] [id number] [place] [address] Jul, [facility] [address] [id number] [place] [address] Jul, [facility] [place] [facility] [address] [id number] [place] [address] Jul, [facility] [place] [facility] [address] [id number] [place] [address] Jul, [facility] [place] [facility] [address] [id number] [place] [address] Jul, [facility] [address] [id number] [place] [address] Jul, [facility] [address] [id number] [place] [address] 31 May, 2012 [facility] [address] [id number] [place] [address] 29 May, 2012 [facility] [place] [facility] [address] [id number] [place] [address] May, [facility] [address] [id number] [place] [address] May, [facility] [address] [id number] [place] [address] May, [facility] [address] [id number] [place] [address] May, [facility] [place] [facility] [address] [id number] [place] [address] May, [facility] [address] [id number] [place] [address] 18 May, 2012 [facility] [address] [id number] [place] [address] 17 May, 2012 [facility] [address] [id number] [place] [address] 17 May, 2012 [facility] [address] [id number] [place] [address] 16 May, 2012 [facility] [address] [id number] [place] [address] Apr, [facility] [address] [id number] [place] [address] Apr, [facility] [place] [facility] [address] [id number] [place] [address] Apr, [facility] [place] [facility] [address] [id number] [place] [address] Apr, [facility] [place] [facility] [address] [id number] [place] [address] Apr, [facility] [place] [facility] [address] [id number] [place] [address] Apr, [facility] [place] [facility] [address] [id number], [place] [address] Mar, [facility] [place] [facility] [address] [facility] [id number] [place] [address] Mar, [facility] [place] [facility] [address] [id number], [place] [address] Mar, [facility] [place] [facility] [address] [id number] [place] [address] Mar, [facility] [place] [facility] [address] [id number], [place] [address] Mar, [facility] [place] [facility] [address] [facility] [id number], [place] [address] Mar, [facility] [place] [facility] [address] [id number], [place] [address] Mar, [facility] [place] [facility] [address] [id number], [place] [address] Mar, [facility] [place] [facility] [address] [facility] [id number], [place] [address] Feb, [facility] [place] [facility] [address] [id number], [place] [address] Feb, [facility] [place] [facility] [address] [id number], [place] [address] 16 Feb, 2012 [facility] [place] [facility] [address] [id number], [place] [address] 15 Feb, 2012 [facility] [place] [facility] [address] [facility] [id number], [place] [address] 15 Feb, 2012 [facility] [place] [facility] [address] [facility] [id number], [place] [address] 13 Feb, 2012 [facility] [place] [facility] [address] [id number] [place] [address] Feb, [facility] [place] [facility] [address] [id number] [place] [address] Feb, [facility] [place] [facility] [address] [id number] [place] [address] Feb, [facility] [place] [facility] [address] [id number] [place] [address] Feb, [facility] [place] [facility] [address] [id number] [place] [address] Feb, [facility] [place] [facility] [address] [id number] [place] [address] Feb, [facility] [place] [facility] [address] [id number] [place] [address] Feb, [facility] [place] [facility] [address] [id number] [place] [address] Feb, [facility] [place] [facility] [address] [id number] [place] [address] Feb, [facility] [place] [facility] [address] [id number] [place] [address] Feb, [facility] [place] [facility] [address] [id number] [place] [address] Feb, [facility] [place] [facility] [address] [id number] [place] [address] 04 Feb, 2012 [facility] [place] [facility] [address] [id number] [place] [address] 19 Jan, 2012 [facility] [place] [facility] [address] [id number] [place] [address] 13 Sep2011 [facility] [place] [facility] [address] [id number] [place] [address] 11 Jan, 2012 [facility] [place] [facility] [address] [id number] [place] [address] Jan, [facility] [place] [facility] [address] [id number] [place] [address] Jan, [facility] [place] [facility] [address] [id number] [place] [address] Dec, [facility] [place] [facility] [address] [id number] [place] [address] Dec, [facility] [place] [facility] [address] [id number] [place] [address] Dec, [facility] [place] [facility] [address] [id number] [place] [address] Dec, [facility] [place] [facility] [address] [id number] [place] [address] Dec, [facility] [place] [facility] [address] [id number] [place] [address] Dec, [facility] [place] [facility] [address] [id number] [place] [address] Nov, [facility] [place] [facility] [address] [id number] [place] [address] Nov, [facility] [place] [facility] [address] [id number] [place] [address] Nov, [facility] [place] [facility] [address] [id number] [place] [address] Nov, [facility] [place] [facility] [address] [id number] [place] [address] Nov, [facility] [place] [facility] [address] [id number] [place] [address] Oct, [facility] [place] [facility] [address] [id number] [place] [address] Oct, [facility] [place] [facility] [address] [id number] [place] [address] Oct, [facility] [place] [facility] [address] [id number], [place] [address] September, [facility] [address] [id number] [place] [address] September, [facility] [address] [id number] [place] [address] September, [facility] [address] [id number] [place] [address] September, [facility] [address] [id number] [place] [address] September, [facility] [address] [id number] [place] [address] September, [facility] [address] [id number] [place] [address] Aug, [facility] [address] [id number] [place] [address] Aug, [facility] [place] [facility] [address] [id number] [place] [address] Aug, [facility] [address] [id number] [place] [address] Jun, [facility] [address] [id number] [place] [address] Jun, [facility] [address] [id number] [place] [address] Jun, [facility] [place] [facility] [address] [id number] [place] [address] Jun, [facility] [place] [facility] [address] [id number] [place] [address] May, [facility] [place] [facility] [address] [id number] [place] [address] May, [facility] [place] [facility] [address] [id number] [place] [address] May, [facility] [place] [facility] [address] [id number] [place] [address] May, [facility] [place] [facility] [address] [id number] [place] [address] May, [facility] [place] [facility] [address] [id number] [place] [address] Apr, [facility] [place] [facility] [address] [id number] [place] [address] Apr, [facility] [place] [facility] [address] [id number] [place] [address] Apr, [facility] [place] [facility] [address] [id number] [place] [address] Apr, [facility] [place] [facility] [address] [id number] [place] [address] Apr, [facility] [place] [facility] [address] [id number] [place] [address] Apr, [facility] [place] [facility] [address] [id number] [place] [address] Apr, [facility] [place] [facility] [address] [id number] [place] [address] Mar, [facility] [place] [facility] [address] [id number] [place] [address] Mar, [facility] [place] [facility] [address] [id number] [place] [address] Mar, [facility] [place] [facility] [address] [id number] [place] [address] Feb, [facility] [place] [facility] [address] [id number] [place] [address] Feb, [facility] [place] [facility] [address] [id number] [place] [address] Feb, [facility] [place] [facility] [address] [id number] [place] [address] Feb, [facility] [place] [facility] [address] [id number] [place] [address] 18 Feb, 2011 [facility] [place] [facility] [address] [id number] [place] [address] 17 Feb, 2011 [facility] [place] [facility] [address] [id number] [place] [address] 13 Jan, 2011 [facility] [place] [facility] [address] [id number] [place] [address] Jan, [facility] [place] [facility] [address] [id number] [place] [address] September, [facility] [place] [facility] [address] [id number] [place] [address] Jun, [facility] [place] [facility] [address] [id number] [place] [address] Apr, [facility] [place] [facility] [address] [id number] [place] [address] Apr, [facility] [place] [facility] [address] [id number] [place] [address] Apr, [facility] [place] [facility] [address] [id number] [place] [address] Apr, [facility] [place] [facility] [address] [id number], [place] [address] Apr, [facility] [place] [facility] [address] [id number], [place] [address] Mar, [facility] [place] [facility] [address] [id number] [place] [address] Mar, [facility] [place] [facility] [address] [id number] [place] [address] Mar, [facility] [place] [facility] [address] [id number] [place] [address] Mar, [facility] [place] [facility] [address] [facility] [id number], [place] [address] Feb, [facility] [address] [facility] [id number], [place] [address] Jan, [facility] [address] [facility] [id number], [place] [address] Mar, [facility] [address] [facility] [id number], [place] [address] Jan, [facility] [address] [facility] [id number][place] [address] Oct, [facility] [address] [facility] [id number], [place] [address] Apr, IMMUNIZATIONS No Known Immunizations SOCIAL HISTORY Never Assessed REASON FOR VISIT Requests return call PLAN OF CARE VITAL SIGNS MEDICATIONS Medication Instructions Dosage Frequency Start Date End Date Duration Status Levaquin 500 MG Orally Once a day 1 tablet 24h Apr, 07 days Active RESULTS No Results PROCEDURES No [...]
--- OUTSIDE RECORDS SUMMARY | 2018-09-28 04:12 | XMS REPORT ---
Author Author MONIQUE VILLARREAL [facility] [address] Address [address] [place] [address] Care Team Providers Care Prevention Coordinator Name Role Phone KENYA VILLARREALTA Unavailable PROBLEMS Type Condition ICD9-CM Code HKE61-XX Code Onset Dates Condition Status SNOMED Code Problem Hypertriglyceridemia E78.1 Active 643156540 Problem Essential hypertension I10 Active 59718499 Problem Irritable bowel syndrome without diarrhea K58.9 Active 79920001 Problem Morbid (severe) obesity due to excess calories E66.01 Active 954154974 Problem Body mass index (BMI) of 40.0-44.9 in adult Z68.41 Active 540879567 Problem Anxiety F41.9 Active 94901612 Problem Bilateral low back pain without sciatica M54.5 Active 716343236 Problem Alternating constipation and diarrhea R19.8 Active 085806595 Problem Pre-diabetes R73.03 Active 543679629 ALLERGIES No Information ENCOUNTERS Encounter Location Date Diagnosis [facility] [address] [address] 30 Mar, 2018 [facility] [address] [address] Mar, [facility] [address] [address] 13 Mar, 2018 Left anterior knee pain M25.562 ; Abscess of buttock, left L02.31 and BMI 40.0-44.9, adult Z68.41 [facility] [address] [address] 12 Mar, 2018 [facility] [address] [address] 13 Feb, 2018 Abrasion of right ear canal, initial encounter S00.411A ; Left wrist pain M25.532 ; Right acute serous otitis media, recurrence not specified H65.01 and BMI 40.0-44.9, adult Z68.41 [facility] [id number] [place] [address] Jan, [facility] [id number] [place] [address] Jan, [facility] [address] [address] Jan, BMI 40.0-44.9, adult Z68.41 ; Pre-diabetes R73.03 ; Essential hypertension I10 ; Morbid (severe) obesity due to excess calories E66.01 ; Bilateral low back pain without sciatica M54.5 and Heartburn R12 [facility] [id number] [place] [address] Jan, History of UTI Z87.440 ; Well woman exam with routine gynecological exam Z01.419 ; Screening for breast cancer Z12.31 ; Candidal vaginitis B37.3 and BMI 40.0-44.9, adult Z68.41 [facility] [id number] [place] [address] Jan, [facility] [id number] [place] [address] Jan, Dysuria R30.0 ; Acute cystitis with hematuria N30.01 ; Yeast infection B37.9 and BMI 40.0-44.9, adult Z68.41 [facility] [id number] [place] [address] Dec, [facility] [id number] [place] [address] Dec, [facility] [id number] [place] [address] Nov, History of UTI Z87.440 [facility] [address] [address] Nov, UTI symptoms R39.9 ; Acute nasopharyngitis J00 and BMI 40.0-44.9, adult Z68.41 [facility] [id number] [place] [address] Nov, [facility] [id number] [place] [address] Nov, Yeast infection involving the vagina and surrounding area B37.3 [facility] [address] [address] Nov, Yeast infection involving the vagina and surrounding area B37.3 [facility] [id number] [place] [address] Nov, Yeast infection involving the vagina and surrounding area B37.3 ; Body mass index (BMI) of 40.0-44.9 in adult Z68.41 and Morbid (severe) obesity due to excess calories E66.01 [facility] [id number] [place] [address] Oct, Abscess of groin, left L02.214 and Pre-diabetes R73.03 [facility] [id number] [place] [address] September, Pre-diabetes R73.03 [facility] [id number] [place] [address] Aug, [facility] [id number] [place] [address] Jul, Bilateral low back pain without sciatica M54.5 [facility] [id number] [place] [address] Jun, [facility] [id number] [place] [address] Jun, [facility] [id number] [place] [address] Jun, [facility] [id number] [place] [address] May, [facility] [address] [address] May, Ingrown left greater toenail L60.0 [facility] [address] [address] May, [facility] [address] [address] May, Influenza A J10.1 ; Fever R50.9 and Body aches R52 [facility] [address] [address] Apr, [place] [address] [address] Apr, [facility] [address] [address] Apr, [place] [address] [address] Apr, Abscess L02.91 and Obesity (BMI 30-39.9) E66.9 [facility] [id number] [place] [address] Apr, [place] [address] [address] Apr, [facility] [address] [address] Mar, Acute non-recurrent maxillary sinusitis J01.00 [facility] [address] [address] Feb, Heartburn R12 [facility] [address] [address] Feb, Heartburn R12 ; Low back pain M54.5 ; Essential hypertension I10 ; Bilateral low back pain without sciatica M54.5 ; Anxiety F41.9 ; Pre-diabetes R73.03 ; Other obesity due to excess calories E66.09 ; Alternating constipation and diarrhea R19.8 ; Dyspepsia R10.13 ; Generalized abdominal pain R10.84 ; Rhinosinusitis J32.9 and Boil L02.92 [facility] [id number] [place] [address] Jan, Heartburn R12 [facility] [address] [address] Jan, [facility] [address] [address] Jan, [facility] [address] [address] Jan, Acute seasonal allergic rhinitis due to pollen J30.1 and Irritable bowel syndrome without diarrhea K58.9 [facility] [address] [address] Dec, Low back pain M54.5 and Acute cystitis with hematuria N30.01 [facility] [address] [address] Dec, Low back pain M54.5 and Acute cystitis with hematuria N30.01 [facility] [id number] [place] [address] Dec, Heartburn R12 ; Essential hypertension I10 ; Acute non-recurrent maxillary sinusitis J01.00 ; Bilateral low back pain without sciatica M54.5 ; Anxiety F41.9 ; Pre-diabetes R73.03 ; Pain in right foot M79.671 ; Pain in left foot M79.672 ; Other obesity due to excess calories E66.09 and Acute cystitis with hematuria N30.01 [facility] [id number] [place] [address] Dec, Bilateral low back pain without sciatica M54.5 ; Acute non-recurrent maxillary sinusitis J01.00 and Pre-diabetes R73.03 [facility] [id number] [place] [address] Oct, [facility] [place] [address] [address] Aug, [facility] [place] [id number] [place] [address] Aug, Acute vaginitis N76.0 ; Urinary frequency R35.0 ; Screen for STD (sexually transmitted disease) Z11.3 and Abscess L02.91 [facility] [address] [address] Aug, Plantar wart of right foot B07.0 [facility] [address] [address] Jul, Plantar wart of right foot B07.0 [facility] [address] [address] Jun, [facility] [address] [address] Jun, Heartburn R12 ; Essential hypertension I10 ; Anxiety F41.9 ; Folliculitis L73.9 and Plantar wart of right foot B07.0 [facility] [id number] [place] [address] Jun, [facility] [place] [id number] [place] [address] May, Low back pain M54.5 and Other chronic pain G89.29 [facility] [address] [address] May, [facility] [id number] [place] [address] May, [facility] [address] [address] May, Heartburn R12 ; Bilateral low back pain without sciatica M54.5 ; Essential hypertension I10 ; Long-term use of high-risk medication Z79.899 ; Anxiety F41.9 ; Impacted cerumen of right ear H61.21 ; Folliculitis L73.9 ; High risk bisexual behavior Z72.53 and General medical exam Z00.00 [facility] [address] [address] May, [facility] [address] [address] May, [place] [address] [address] Mar, Acute nasopharyngitis J00 ; Acute intractable tension-type headache G44.201 and Cough R05 [facility] [address] [address] Jan, [facility] [address] [address] Jan, Abscess L02.91 [facility] [address] [address] Jan, Urinary urgency R39.15 and Urinary tract infection without hematuria, site unspecified N39.0 [facility] [address] [address] Jan, [facility] [address] [address] Jan, [facility] [address] [address] Dec, [place] [address] [address] Dec, Dermatofibroma D23.9 [facility] [address] [address] September, [place] [address] [place] [address] Aug, [facility] [id number] [place] [address] Aug, Pain in left knee M25.562 ; Heartburn R12 ; Bilateral low back pain without sciatica M54.5 ; Essential hypertension I10 ; Ingrown left big toenail L60.0 ; Chronic pain G89.29 ; Irritable bowel syndrome with constipation K58.9 and Skin infection L08.9 [facility] [id number] [place] [address] Aug, [facility] [id number] [place] [address] Jul, [facility] [id number] [place] [address] Jun, [facility] [id number] [place] [address] Jun, [facility] [id number] [place] [address] Jun, [facility] [id number] [place] [address] Jun, [facility] [id number] [place] [address] Jun, Upper respiratory infection J06.9 ; Bilateral low back pain without sciatica M54.5 and Headache R51 [facility] [id number] [place] [address] May, [facility] [id number] [place] [address] Apr, Bilateral low back pain without sciatica M54.5 ; Upper respiratory infection J06.9 and Yeast dermatitis B37.2 [facility] [id number] [place] [address] Apr, [facility] [id number] [place] [address] Apr, [facility] [id number] [place] [address] Feb, [facility] [id number] [place] [address] Feb, [facility] [id number] [place] [address] Feb, [facility] [id number] [place] [address] Feb, Essential hypertension I10 ; Heartburn R12 ; Irritable bowel syndrome without diarrhea K58.9 ; Bilateral low back pain, with sciatica presence unspecified M54.5 and Upper respiratory infection J06.9 [facility] [id number] [place] [address] Feb, [facility] [id number] [place] [address] Feb, Generalized anxiety disorder F41.1 and Grief F43.20 [facility] [id number] [place] [address] Jan, [facility] [id number] [place] [address] Jan, Back pain 724.5 ; Upper respiratory infection 465.9 ; HTN (hypertension) 401.9 and Dyspepsia 536.8 [facility] [id number] [place] [address] Dec, [facility] [id number] [place] [address] Nov, Back pain 724.5 ; Abdominal pain, bilateral lower quadrant 789.03 ; GERD (gastroesophageal reflux disease) 530.81 ; Upper respiratory infection 465.9 ; Dysuria 788.1 and HTN (hypertension) 401.9 [facility] [id number] [place] [address] Nov, [facility] [address] [address] Nov, [facility] [id number] [place] [address] Nov, [facility] [id number] [place] [address] Nov, Cough 786.2 [facility] [id number] [place] [address] Nov, Cough 786.2 [facility] [id number] [place] [address] Oct, Unspecified episodic mood disorder 296.90 and Anxiety disorder, unspecified 300.00 [facility] [id number] [place] [address] Oct, Abdominal pain, left upper quadrant 789.02 ; Essential hypertension, benign 401.1 ; Irritable bowel syndrome 564.1 ; Abscess 682.9 ; Heartburn 787.1 ; Acute sinusitis, unspecified 461.9 ; Muscle spasm of back 724.8 ; Cough 786.2 and Skin tag 701.9 [facility] [address] [address] September, [facility] [id number] [address] September, [facility] [address] [address] September, [facility] [id number] [place] [address] Aug, [facility] [id number] [place] [address] Aug, [facility] [address] [place] [address] Jul, [facility] [place] [facility] [address] [id number] [place] [address] 30 Jul, 2014 [facility] [place] [facility] [address] [id number] [place] [address] Jul, [facility] [place] [facility] [address] [id number] [place] [address] Jul, [facility] [place] [facility] [address] [id number] [place] [address] Jul, [facility] [place] [facility] [address] [id number] [place] [address] Jul, [facility] [place] [facility] [address] [id number] [place] [address] Jul, [facility] [place] [facility] [address] [id number] [place] [address] Jul, [facility] [place] [facility] [address] [id number] [place] [address] Jul, [facility] [place] [facility] [address] [id number] [place] [address] Jul, [facility] [place] [facility] [address] [id number] [place] [address] Jul, [facility] [place] [facility] [address] [id number] [place] [address] Jul, [facility] [place] [facility] [address] [id number] [place] [address] Jul, [facility] [place] [facility] [address] [id number] [place] [address] Jul, [facility] [place] [facility] [address] [id number] [place] [address] Jul, [facility] [place] [facility] [address] [id number] [place] [address] Jul, [facility] [place] [facility] [address] [id number] [place] [address] Jul, [facility] [place] [facility] [address] [id number] [place] [address] Jun, 2014 [facility] [place] [facility] [address] [id number] [place] [address] Jun, 2014 [facility] [place] [facility] [address] [facility] [id number] [place] [address] Jun, 2014 [facility] [place] [facility] [address] [id number] [place] [address] Jun, 2014 [facility] [place] [facility] [address] [id number] [place] [address] Jun, 2014 [facility] [place] [facility] [address] [facility] [id number] [place] [address] Jun, 2014 [facility] [place] [facility] [address] [facility] [id number] [place] [address] Jun, 2014 [facility] [place] [facility] [address] [facility] [id number] [place] [address] Jun, [facility] [place] [facility] [address] [facility] [id number] [place] [address] Apr, [facility] [place] [facility] [address] [facility] [id number] [place] [address] 29 Apr, 2014 [facility] [place] [facility] [address] [facility] [id number] [place] [address] Apr, [facility] [place] [facility] [address] [facility] [id number] [place] [address] 23 Apr, 2014 [facility] [place] [facility] [address] [facility] [id number] [place] [address] 18 Apr, 2014 [facility] [place] [facility] [address] [facility] [id number] [place] [address] 18 Apr, 2014 [facility] [place] [facility] [address] [facility] [id number] [place] [address] 15 Apr, 2014 [facility] [place] [facility] [address] [id number] [place] [address] 15 Apr, 2014 [facility] [place] [facility] [address] [id number] [place] [address] Apr, [facility] [place] [facility] [address] [id number] [place] [address] Apr, [facility] [place] [facility] [address] [id number] [place] [address] Apr, [facility] [place] [facility] [address] [id number] [place] [address] Apr, [facility] [place] [facility] [address] [id number] [place] [address] Apr, [facility] [place] [facility] [address] [id number] [place] [address] Apr, [facility] [place] [facility] [address] [id number] [place] [address] Apr, [facility] [place] [facility] [address] [id number] [place] [address] Feb, [facility] [place] [facility] [address] [id number] [place] [address] Feb, [facility] [place] [facility] [address] [id number] [place] [address] Feb, [facility] [place] [facility] [address] [id number] [place] [address] Feb, [facility] [place] [facility] [address] [id number] [place] [address] Feb, [facility] [place] [facility] [address] [id number] [place] [address] Feb, [facility] [place] [facility] [address] [id number] [place] [address] 08 Jan, 2014 [facility] [place] [facility] [address] [id number] [place] [address] Jan, [facility] [place] [facility] [address] [id number] [place] [address] Jan, 2013 [facility] [place] [facility] [address] [id number] [place] [address] Jan, [facility] [place] [facility] [address] [id number] [place] [address] Jan, [facility] [place] [facility] [address] [id number] [place] [address] Jan, [facility] [place] [facility] [address] [id number] [place] [address] Dec, [facility] [place] [facility] [address] [id number] [place] [address] Dec, [facility] [place] [facility] [address] [id number] [place] [address] Dec, [facility] [place] [facility] [address] [id number] [place] [address] Dec, [facility] [place] [facility] [address] [id number] [place] [address] Nov, [facility] [place] [facility] [address] [id number] [place] [address] Nov, [facility] [place] [facility] [address] [id number] [place] [address] Nov, [facility] [place] [facility] [address] [id number] [place] [address] Nov, [facility] [place] [facility] [address] [id number] [place] [address] Nov, [facility] [place] [facility] [address] [id number] [place] [address] Nov, [facility] [place] [facility] [address] [id number] [place] [address] Nov, [facility] [place] [facility] [address] [id number] [place] [address] 15 Nov, 2013 [facility] [place] [facility] [address] [id number] [place] [address] Oct, [facility] [place] [facility] [address] [id number] [place] [address] Oct, [facility] [place] [facility] [address] [id number] [place] [address] Oct, [facility] [place] [facility] [address] [id number] [place] [address] Oct, [facility] [place] [facility] [address] [id number] [place] [address] Oct, [facility] [place] [facility] [address] [id number] [place] [address] Oct, [facility] [place] [facility] [address] [id number] [place] [address] Oct, [facility] [place] [facility] [address] [id number] [place] [address] Oct, [facility] [place] [facility] [address] [id number] [place] [address] Oct, [facility] [place] [facility] [address] [id number] [place] [address] Oct, [facility] [place] [facility] [address] [id number] [place] [address] Oct, [facility] [place] [facility] [address] [id number] [place] [address] Oct, [facility] [place] [facility] [address] [id number] [place] [address] Oct, [facility] [place] [facility] [address] [id number] [place] [address] Oct, [facility] [place] [facility] [address] [id number] [place] [address] 17 Oct, 2013 [facility] [place] [facility] [address] [id number] [place] [address] 17 Oct, 2013 [facility] [place] [facility] [address] [id number] [place] [address] Oct, [facility] [place] [facility] [address] [id number] [place] [address] 16 Oct, 2013 [facility] [place] [facility] [address] [id number] [place] [address] Oct, [facility] [place] [facility] [address] [id number] [place] [address] Oct, [facility] [place] [facility] [address] [id number] [place] [address] Oct, [facility] [place] [facility] [address] [id number] [place] [address] Oct, [facility] [place] [facility] [address] [id number] [place] [address] Oct, [facility] [place] [facility] [address] [id number] [place] [address] Oct, [facility] [place] [facility] [address] [id number] [place] [address] Oct, [facility] [place] [facility] [address] [id number] [place] [address] Oct, [facility] [place] [facility] [address] [id number] [place] [address] Oct, [facility] [place] [facility] [address] [id number] [place] [address] Oct, [facility] [place] [facility] [address] [id number] [place] [address] Oct, [facility] [place] [facility] [address] [id number] [place] [address] Oct, [facility] [place] [facility] [address] [id number] [place] [address] September, [facility] [address] [id number] [place] [address] September, [facility] [place] [facility] [address] [id number] [place] [address] September, [facility] [place] [facility] [address] [id number] [place] [address] September, [facility] [place] [facility] [address] [id number] [place] [address] September, [facility] [place] [facility] [address] [id number] [place] [address] September, [facility] [place] [facility] [address] [id number] [place] [address] September, [facility] [place] [facility] [address] [id number] [place] [address] September, [facility] [place] [facility] [address] [id number] [place] [address] September, [facility] [place] [facility] [address] [id number] [place] [address] September, [facility] [place] [facility] [address] [id number] [place] [address] September, [facility] [place] [facility] [address] [id number] [place] [address] September, [facility] [place] [facility] [address] [id number] [place] [address] September, [facility] [place] [facility] [address] [id number] [place] [address] September, [facility] [place] [facility] [address] [id number] [place] [address] September, [facility] [place] [facility] [address] [id number] [place] [address] September, [facility] [place] [facility] [address] [id number] [place] [address] September, [facility] [address] [id number] [place] [address] September, [facility] [place] [facility] [address] [id number] [place] [address] Aug, [facility] [address] [id number] [place] [address] Aug, [facility] [place] [facility] [address] [id number] [place] [address] Aug, [facility] [address] [id number] [place] [address] Aug, [facility] [place] [facility] [address] [id number] [place] [address] Aug, [facility] [place] [facility] [address] [id number] [place] [address] Aug, [facility] [address] [id number] [place] [address] Jul, [facility] [place] [facility] [address] [id number] [place] [address] Jul, [facility] [address] [id number] [place] [address] Jul, [facility] [place] [facility] [address] [id number] [place] [address] Jul, [facility] [place] [facility] [address] [id number] [place] [address] Jun, [facility] [place] [facility] [address] [id number] [place] [address] Jun, [facility] [place] [facility] [address] [id number] [place] [address] Jun, [facility] [place] [facility] [address] [id number] [place] [address] Jun, [facility] [place] [facility] [address] [id number] [place] [address] 14 Mar, 2013 [facility] [place] [facility] [address] [id number] [place] [address] 14 Mar, 2013 [facility] [place] [facility] [address] [id number] [place] [address] Mar, [facility] [place] [facility] [address] [id number] [place] [address] Mar, [facility] [place] [facility] [address] [id number] [place] [address] Feb, [facility] [place] [facility] [address] [id number] [place] [address] Feb, [facility] [place] [facility] [address] [id number] [place] [address] Feb, [facility] [place] [facility] [address] [id number] [place] [address] Jan, [facility] [place] [facility] [address] [id number] [place] [address] Jan, [facility] [place] [facility] [address] [id number] [place] [address] Jan, [facility] [place] [facility] [address] [id number], [place] [address] Jan, [facility] [place] [facility] [address] [id number], [place] [address] Dec, [facility] [place] [facility] [address] [id number] [place] [address] Dec, [facility] [place] [facility] [address] [id number], [place] [address] Dec, [facility] [place] [facility] [address] [id number] [place] [address] Dec, [facility] [place] [facility] [address] [id number] [place] [address] Nov, [facility] [place] [facility] [address] [id number] [place] [address] Nov, [facility] [place] [facility] [address] [id number] [place] [address] Nov, [facility] [place] [facility] [address] [id number] [place] [address] Nov, [facility] [place] [facility] [address] [id number] [place] [address] Nov, [facility] [place] [facility] [address] [id number] [place] [address] Nov, [facility] [place] [facility] [address] [id number] [place] [address] Oct, [facility] [place] [facility] [address] [id number] [place] [address] Oct, [facility] [place] [facility] [address] [id number] [place] [address] Oct, [facility] [place] [facility] [address] [id number] [place] [address] Oct, [facility] [place] [facility] [address] [id number] [place] [address] 17 Oct, 2012 [facility] [place] [facility] [address] [id number] [place] [address] 16 Oct, 2012 [facility] [place] [facility] [address] [id number] [place] [address] 14 Oct, 2012 [facility] [place] [facility] [address] [id number] [place] [address] 13 Oct, 2012 [facility] [place] [facility] [address] [id number] [place] [address] 11 Oct, 2012 [facility] [place] [facility] [address] [id number] [place] [address] 07 Oct, 2012 [facility] [place] [facility] [address] [id number] [place] [address] September, [facility] [address] [id number] [place] [address] September, [facility] [address] [id number] [place] [address] September, [facility] [address] [id number] [place] [address] Aug, [facility] [address] [id number] [place] [address] Aug, [facility] [address] [id number] [place] [address] Aug, [facility] [address] [id number] [place] [address] Aug, [facility] [address] [id number] [place] [address] Jul, [facility] [address] [id number] [place] [address] Jul, [facility] [address] [id number] [place] [address] Jul, [facility] [address] [id number] [place] [address] Jul, [facility] [address] [id number] [place] [address] Jul, [facility] [place] [facility] [address] [id number] [place] [address] Jul, [facility] [place] [facility] [address] [id number] [place] [address] May, [facility] [place] [facility] [address] [id number] [place] [address] May, [facility] [place] [facility] [address] [id number] [place] [address] May, [facility] [address] [id number] [place] [address] May, [facility] [place] [facility] [address] [id number] [place] [address] May, [facility] [address] [id number] [place] [address] May, [facility] [place] [facility] [address] [id number] [place] [address] May, [facility] [address] [id number] [place] [address] 18 May, 2012 [facility] [address] [id number] [place] [address] May, [facility] [address] [id number] [place] [address] 17 May, 2012 [facility] [place] [facility] [address] [id number] [place] [address] 16 May, 2012 [facility] [address] [id number] [place] [address] Apr, [facility] [place] [facility] [address] [id number] [place] [address] Apr, [facility] [address] [id number] [place] [address] Apr, [facility] [place] [facility] [address] [id number] [place] [address] Apr, [facility] [place] [facility] [address] [id number] [place] [address] Apr, [facility] [place] [facility] [address] [id number] [place] [address] Apr, [facility] [place] [facility] [address] [id number] [place] [address] Mar, [facility] [place] [facility] [address] [id number] [place] [address] Mar, [facility] [place] [facility] [address] [id number] [place] [address] Mar, [facility] [place] [facility] [address] [id number] [place] [address] Mar, [facility] [place] [facility] [address] [id number] [place] [address] Mar, [facility] [place] [facility] [address] [id number] [place] [address] Mar, [facility] [place] [facility] [address] [id number] [place] [address] Mar, [facility] [place] [facility] [address] [id number] [place] [address] Mar, [facility] [place] [facility] [address] [id number] [place] [address] Feb, [facility] [place] [facility] [address] [id number] [place] [address] Feb, [facility] [place] [facility] [address] [facility] [id number] [place] [address] 16 Feb, 2012 [facility] [place] [facility] [address] [facility] [id number] [place] [address] 15 Feb, 2012 [facility] [place] [facility] [address] [facility] [id number] [place] [address] 15 Feb, 2012 [facility] [place] [facility] [address] [id number], [place] [address] 13 Feb, 2012 [facility] [place] [facility] [address] [id number] [place] [address] Feb, [facility] [place] [facility] [address] [facility] [id number] [place] [address] Feb, [facility] [place] [facility] [address] [facility] [id number], [place] [address] Feb, [facility] [place] [facility] [address] [id number] [place] [address] Feb, [facility] [place] [facility] [address] [id number] [place] [address] Feb, [facility] [place] [facility] [address] [id number] [place] [address] Feb, [facility] [place] [facility] [address] [id number] [place] [address] Feb, [facility] [place] [facility] [address] [id number] [place] [address] Feb, [facility] [place] [facility] [address] [id number] [place] [address] Feb, [facility] [place] [facility] [address] [id number] [place] [address] Feb, [facility] [place] [facility] [address] [id number], [place] [address] Feb, [facility] [place] [facility] [address] [id number] [place] [address] Feb, [facility] [place] [facility] [address] [id number], [place] [address] 19 Jan, 2012 [facility] [place] [facility] [address] [id number], [place] [address] 13 Jan, 2012 [facility] [place] [facility] [address] [id number], [place] [address] 11 Jan, 2012 [facility] [place] [facility] [address] [id number], [place] [address] 10 Jan, 2012 [facility] [place] [facility] [address] [id number], [place] [address] 05 Jan, 2012 [facility] [place] [facility] [address] [id number], [place] [address] 28 Dec, 2011 [facility] [place] [facility] [address] [id number], [place] [address] Dec, [facility] [place] [facility] [address] [id number] [place] [address] Dec, [facility] [place] [facility] [address] [id number] [place] [address] Dec, [facility] [place] [facility] [address] [id number] [place] [address] Dec, [facility] [place] [facility] [address] [id number] [place] [address] Dec, [facility] [place] [facility] [address] [id number] [place] [address] Nov, [facility] [place] [facility] [address] [id number] [place] [address] Nov, [facility] [place] [facility] [address] [id number] [place] [address] Nov, [facility] [place] [facility] [address] [id number] [place] [address] Nov, [facility] [place] [facility] [address] [id number] [place] [address] Nov, [facility] [place] [facility] [address] [id number] [place] [address] Oct, [facility] [place] [facility] [address] [id number] [place] [address] Oct, [facility] [place] [facility] [address] [id number] [place] [address] Oct, [facility] [place] [facility] [address] [id number] [place] [address] September, [facility] [place] [facility] [address] [id number] [place] [address] September, [facility] [place] [facility] [address] [id number] [place] [address] September, [facility] [place] [facility] [address] [id number] [place] [address] September, [facility] [address] [id number] [place] [address] September, [facility] [place] [facility] [address] [id number] [place] [address] September, [facility] [place] [facility] [address] [id number] [place] [address] Aug, [facility] [place] [facility] [address] [id number] [place] [address] Aug, [facility] [place] [facility] [address] [id number] [place] [address] Aug, [facility] [place] [facility] [address] [id number] [place] [address] Jun, [facility] [place] [facility] [address] [id number] [place] [address] Jun, [facility] [place] [facility] [address] [id number] [place] [address] Jun, [facility] [place] [facility] [address] [id number] [place] [address] Jun, [facility] [place] [facility] [address] [id number] [place] [address] May, [facility] [place] [facility] [address] [id number] [place] [address] May, [facility] [place] [facility] [address] [id number] [place] [address] May, [facility] [place] [facility] [address] [id number] [place] [address] May, [facility] [place] [facility] [address] [id number] [place] [address] May, [facility] [place] [facility] [address] [id number], [place] [address] Apr, [facility] [place] [facility] [address] [id number] [place] [address] Apr, [facility] [place] [facility] [address] [id number] [place] [address] Apr, [facility] [place] [facility] [address] [id number] [place] [address] Apr, [facility] [place] [facility] [address] [id number] [place] [address] Apr, [facility] [place] [facility] [address] [id number] [place] [address] 16 Apr, 2011 [facility] [place] [facility] [address] [id number] [place] [address] 16 Apr, 2011 [facility] [place] [facility] [address] [id number] [place] [address] Mar, [facility] [place] [facility] [address] [id number], [place] [address] Mar, [facility] [place] [facility] [address] [id number], [place] [address] Mar, [facility] [place] [facility] [address] [id number], [place] [address] Feb, [facility] [place] [facility] [address] [id number], [place] [address] 24 Feb, 2011 [facility] [place] [facility] [address] [id number], [place] [address] Feb, [facility] [place] [facility] [address] [id number], [place] [address] 19 Feb, 2011 [facility] [place] [facility] [address] [id number], [place] [address] 18 Feb, 2011 [facility] [place] [facility] [address] [id number], [place] [address] 17 Feb, 2011 [facility] [place] [facility] [address] [id number] [place] [address] 13 Jan, 2011 [facility] [address] [id number] [place] [address] 12 Jan, 2011 [facility] [address] [id number] [place] [address] September, [facility] [address] [id number] [place] [address] 17 Jun, 2010 [facility] [address] [id number] [place] [address] Apr, [facility] [address] [id number] [place] [address] Apr, [facility] [address] [id number] [place] [address] Apr, [facility] [address] [id number] [place] [address] Apr, [facility] [address] [id number] [place] [address] Apr, [facility] [address] [facility] [id number] [place] [address] 30 Mar, 2010 [facility] [address] [facility] [id number] [place] [address] 24 Mar, 2010 [facility] [address] [id number] [place] [address] Mar, [facility] [address] [id number] [place] [address] 05 Mar, 2010 [facility] [address] [id number] [place] [address] 27 Feb, 2010 [facility] [address] [id number] [place] [address] 15 Jan, 2010 [facility] [address] [id number] [place] [address] Mar, [facility] [address] [facility] [id number] [place] [address] Jan, [facility] [address] [facility] [id number] [place] [address] Oct, [facility] [address] [facility] [id number] [place] [address] Apr, IMMUNIZATIONS No Known Immunizations SOCIAL HISTORY Never Assessed REASON FOR VISIT Returned call PLAN OF CARE VITAL SIGNS MEDICATIONS [...]
--- OUTSIDE RECORDS SUMMARY | 2018-09-28 04:13 | XMS REPORT ---
Author Author MONIQUE VILLARREAL [facility] Address [address] [place] [address] Care Team Providers Care Card Sorter Name Role Phone KENYA VILLARREALTA Unavailable PROBLEMS Type Condition ICD9-CM Code WHQ59-XZ Code Onset Dates Condition Status SNOMED Code Problem Hypertriglyceridemia E78.1 Active 008137755 Problem Essential hypertension I10 Active 70947020 Problem Irritable bowel syndrome without diarrhea K58.9 Active 08695276 Problem Morbid (severe) obesity due to excess calories E66.01 Active 280303508 Problem Body mass index (BMI) of 40.0-44.9 in adult Z68.41 Active 209417394 Problem Anxiety F41.9 Active 35766554 Problem Bilateral low back pain without sciatica M54.5 Active 291518710 Problem Alternating constipation and diarrhea R19.8 Active 949081835 Problem Pre-diabetes R73.03 Active 465320283 ALLERGIES No Information ENCOUNTERS Encounter Location Date Diagnosis [facility] [address] [address] 30 Mar, 2018 [facility] [address] [address] Mar, BMI 40.0-44.9, adult Z68.41 and Left anterior knee pain M25.562 [facility] [address] [address] 12 Mar, 2018 [facility] [address] [address] 13 Feb, 2018 Abrasion of right ear canal, initial encounter S00.411A ; Left wrist pain M25.532 ; Right acute serous otitis media, recurrence not specified H65.01 and BMI 40.0-44.9, adult Z68.41 [facility] [address] [place] [address] Jan, [place] [id number] [place] [address] Jan, [place] [id number] [place] [address] Jan, BMI 40.0-44.9, adult Z68.41 ; Pre-diabetes R73.03 ; Essential hypertension I10 ; Morbid (severe) obesity due to excess calories E66.01 ; Bilateral low back pain without sciatica M54.5 and Heartburn R12 [place] [id number] [place] [address] Jan, History of UTI Z87.440 ; Well woman exam with routine gynecological exam Z01.419 ; Screening for breast cancer Z12.31 ; Candidal vaginitis B37.3 and BMI 40.0-44.9, adult Z68.41 [place] [id number] [place] [address] Jan, [facility] [id number] [place] [address] Jan, Dysuria R30.0 ; Acute cystitis with hematuria N30.01 ; Yeast infection B37.9 and BMI 40.0-44.9, adult Z68.41 [place] [id number] [place] [address] Dec, [place] [id number] [place] [address] Dec, [place] [id number] [place] [address] Nov, History of UTI Z87.440 [place] [id number] [place] [address] Nov, UTI symptoms R39.9 ; Acute nasopharyngitis J00 and BMI 40.0-44.9, adult Z68.41 [place] [id number] [place] [address] Nov, [facility] [id number] [place] [address] Nov, Yeast infection involving the vagina and surrounding area B37.3 [facility] [id number] [place] [address] Nov, Yeast infection involving the vagina and surrounding area B37.3 [facility] [id number] [place] [address] Nov, Yeast infection involving the vagina and surrounding area B37.3 ; Body mass index (BMI) of 40.0-44.9 in adult Z68.41 and Morbid (severe) obesity due to excess calories E66.01 [facility] [id number] [place] [address] Oct, Abscess of groin, left L02.214 and Pre-diabetes R73.03 [facility] [id number] [place] [address] September, Pre-diabetes R73.03 [facility] [id number] [place] [address] Aug, [facility] [id number] [place] [address] Jul, Bilateral low back pain without sciatica M54.5 [facility] [id number] [place] [address] Jun, [facility] [id number] [place] [address] Jun, [facility] [id number] [place] [address] Jun, [facility] [id number] [place] [address] May, [facility] [address] [address] May, Ingrown left greater toenail L60.0 [place] [address] [address] May, [facility] [address] [address] May, Influenza A J10.1 ; Fever R50.9 and Body aches R52 [place] [address] [address] Apr, [place] [address] [address] Apr, [place] [address] [address] Apr, [place] [address] [address] Apr, Abscess L02.91 and Obesity (BMI 30-39.9) E66.9 [place] [address] [address] Apr, [place] [address] [address] Apr, [place] [address] [address] Mar, Acute non-recurrent maxillary sinusitis J01.00 [place] [address] [address] Feb, Heartburn R12 [place] [address] [address] Feb, Heartburn R12 ; Low back pain M54.5 ; Essential hypertension I10 ; Bilateral low back pain without sciatica M54.5 ; Anxiety F41.9 ; Pre-diabetes R73.03 ; Other obesity due to excess calories E66.09 ; Alternating constipation and diarrhea R19.8 ; Dyspepsia R10.13 ; Generalized abdominal pain R10.84 ; Rhinosinusitis J32.9 and Boil L02.92 [place] [id number] [place] [address] Jan, Heartburn R12 [place] [id number] [place] [address] Jan, [place] [address] [address] Jan, [place] [id number] [place] [address] Jan, Acute seasonal allergic rhinitis due to pollen J30.1 and Irritable bowel syndrome without diarrhea K58.9 [place] [id number] [place] [address] Dec, Low back pain M54.5 and Acute cystitis with hematuria N30.01 [place] [id number] [place] [address] Dec, Low back pain M54.5 and Acute cystitis with hematuria N30.01 [place] [id number] [place] [address] Dec, Heartburn R12 ; Essential hypertension I10 ; Acute non-recurrent maxillary sinusitis J01.00 ; Bilateral low back pain without sciatica M54.5 ; Anxiety F41.9 ; Pre-diabetes R73.03 ; Pain in right foot M79.671 ; Pain in left foot M79.672 ; Other obesity due to excess calories E66.09 and Acute cystitis with hematuria N30.01 [place] [id number] [place] [address] Dec, Bilateral low back pain without sciatica M54.5 ; Acute non-recurrent maxillary sinusitis J01.00 and Pre-diabetes R73.03 [place] [id number] [place] [address] Oct, [facility] [id number] [place] [address] Aug, [facility] [place] [address] [address] Aug, Acute vaginitis N76.0 ; Urinary frequency R35.0 ; Screen for STD (sexually transmitted disease) Z11.3 and Abscess L02.91 [place] [address] [address] Aug, Plantar wart of right foot B07.0 [place] [address] [address] Jul, Plantar wart of right foot B07.0 [place] [address] [address] Jun, [place] [address] [address] Jun, Heartburn R12 ; Essential hypertension I10 ; Anxiety F41.9 ; Folliculitis L73.9 and Plantar wart of right foot B07.0 [place] [address] [address] Jun, [facility] [place] [id number] [place] [address] May, Low back pain M54.5 and Other chronic pain G89.29 [place] [id number] [place] [address] May, [place] [id number] [place] [address] May, [place] [address] [address] May, Heartburn R12 ; Bilateral low back pain without sciatica M54.5 ; Essential hypertension I10 ; Long-term use of high-risk medication Z79.899 ; Anxiety F41.9 ; Impacted cerumen of right ear H61.21 ; Folliculitis L73.9 ; High risk bisexual behavior Z72.53 and General medical exam Z00.00 [facility] [id number] [place] [address] May, [facility] [address] [address] May, [facility] [address] [address] Mar, Acute nasopharyngitis J00 ; Acute intractable tension-type headache G44.201 and Cough R05 [place] [address] [address] Jan, [facility] [address] [address] Jan, Abscess L02.91 [facility] [address] [address] Jan, Urinary urgency R39.15 and Urinary tract infection without hematuria, site unspecified N39.0 [place] [address] [address] Jan, [place] [id number] [place] [address] Jan, [place] [address] [address] Dec, [place] [id number] [place] [address] Dec, Dermatofibroma D23.9 [place] [address] [address] September, [facility] [id number] [place] [address] Aug, [facility] [address] [address] Aug, Pain in left knee M25.562 ; Heartburn R12 ; Bilateral low back pain without sciatica M54.5 ; Essential hypertension I10 ; Ingrown left big toenail L60.0 ; Chronic pain G89.29 ; Irritable bowel syndrome with constipation K58.9 and Skin infection L08.9 [facility] [id number] [place] [address] Aug, [facility] [address] [address] Jul, [facility] [id number] [place] [address] Jun, [facility] [address] [address] Jun, [facility] [id number] [place] [address] Jun, [facility] [id number] [place] [address] Jun, [facility] [id number] [place] [address] Jun, Upper respiratory infection J06.9 ; Bilateral low back pain without sciatica M54.5 and Headache R51 [facility] [id number] [place] [address] May, [facility] [id number] [place] [address] Apr, Bilateral low back pain without sciatica M54.5 ; Upper respiratory infection J06.9 and Yeast dermatitis B37.2 [facility] [id number] [place] [address] Apr, [facility] [id number] [place] [address] Apr, [facility] [id number] [place] [address] Feb, [facility] [id number] [place] [address] Feb, [facility] [id number] [place] [address] Feb, [facility] [id number] [place] [address] Feb, Essential hypertension I10 ; Heartburn R12 ; Irritable bowel syndrome without diarrhea K58.9 ; Bilateral low back pain, with sciatica presence unspecified M54.5 and Upper respiratory infection J06.9 [place] [id number] [place] [address] Feb, [place] [id number] [place] [address] Feb, Generalized anxiety disorder F41.1 and Grief F43.20 [place] [id number] [place] [address] Jan, [place] [id number] [place] [address] Jan, Back pain 724.5 ; Upper respiratory infection 465.9 ; HTN (hypertension) 401.9 and Dyspepsia 536.8 [place] [id number] [place] [address] Dec, [place] [id number] [place] [address] Nov, Back pain 724.5 ; Abdominal pain, bilateral lower quadrant 789.03 ; GERD (gastroesophageal reflux disease) 530.81 ; Upper respiratory infection 465.9 ; Dysuria 788.1 and HTN (hypertension) 401.9 [place] [id number] [place] [address] Nov, [place] [id number] [place] [address] Nov, [facility] [address] [address] Nov, [facility] [id number] [place] [address] Nov, Cough 786.2 [facility] [id number] [place] [address] Nov, Cough 786.2 [facility] [id number] [place] [address] Oct, Unspecified episodic mood disorder 296.90 and Anxiety disorder, unspecified 300.00 [facility] [id number] [place] [address] Oct, Abdominal pain, left upper quadrant 789.02 ; Essential hypertension, benign 401.1 ; Irritable bowel syndrome 564.1 ; Abscess 682.9 ; Heartburn 787.1 ; Acute sinusitis, unspecified 461.9 ; Muscle spasm of back 724.8 ; Cough 786.2 and Skin tag 701.9 [facility] [id number] [place] [address] September, [facility] [id number] [place] [address] September, [facility] [address] [address] September, [facility] [id number] [place] [address] Aug, [facility] [id number] [place] [address] Aug, [facility] [id number] [place] [address] Jul, [facility] [id number] [place] [address] Jul, [facility] [id number] [place] [address] Jul, [facility] [place] [facility] [address] [id number] [place] [address] Jul, [facility] [place] [facility] [address] [id number] [place] [address] Jul, [facility] [place] [facility] [address] [id number] [place] [address] Jul, [facility] [place] [facility] [address] [id number] [place] [address] Jul, [facility] [place] [facility] [address] [id number] [place] [address] Jul, [facility] [place] [facility] [address] [id number] [place] [address] Jul, [facility] [place] [facility] [address] [id number] [place] [address] Jul, [facility] [place] [facility] [address] [id number] [place] [address] Jul, [facility] [place] [facility] [address] [id number] [place] [address] Jul, [facility] [place] [facility] [address] [id number] [place] [address] Jul, [facility] [place] [facility] [address] [id number] [place] [address] Jul, [facility] [place] [facility] [address] [id number] [place] [address] Jul, [facility] [place] [facility] [address] [id number] [place] [address] Jul, [facility] [place] [facility] [address] [id number] [place] [address] Jul, [facility] [place] [facility] [address] [id number] [place] [address] Jun, [facility] [place] [facility] [address] [id number] [place] [address] Jun, 2014 [facility] [place] [facility] [address] [id number] [place] [address] Jun, 2014 [facility] [place] [facility] [address] [id number] [place] [address] 20 Jun, 2014 [facility] [place] [facility] [address] [id number] [place] [address] Jun, 2014 [facility] [place] [facility] [address] [id number] [place] [address] Jun, 2014 [facility] [place] [facility] [address] [id number] [place] [address] Jun, 2014 [facility] [place] [facility] [address] [id number] [place] [address] Jun, 2014 [facility] [place] [facility] [address] [id number] [place] [address] 29 Apr, 2014 [facility] [place] [facility] [address] [id number] [place] [address] 29 Apr, 2014 [facility] [place] [facility] [address] [facility] [id number] [place] [address] 23 Apr, 2014 [facility] [place] [facility] [address] [id number] [place] [address] 23 Apr, 2014 [facility] [place] [facility] [address] [id number], [place] [address] 18 Apr, 2014 [facility] [place] [facility] [address] [id number] [place] [address] 18 Apr, 2014 [facility] [place] [facility] [address] [id number] [place] [address] 15 Apr, 2014 [facility] [place] [facility] [address] [id number] [place] [address] 15 Apr, 2014 [facility] [place] [facility] [address] [id number], [place] [address] Apr, [facility] [place] [facility] [address] [id number] [place] [address] Apr, [facility] [place] [facility] [address] [id number] [place] [address] Apr, [facility] [place] [facility] [address] [facility] [id number] [place] [address] Apr, [facility] [place] [facility] [address] [id number] [place] [address] Apr, [facility] [place] [facility] [address] [facility] [id number] [place] [address] Apr, [facility] [place] [facility] [address] [facility] [id number] [place] [address] Apr, [facility] [place] [facility] [address] [facility] [id number], [place] [address] Feb, [facility] [place] [facility] [address] [id number] [place] [address] Feb, [facility] [place] [facility] [address] [facility] [id number] [place] [address] Feb, [facility] [place] [facility] [address] [facility] [id number] [place] [address] Feb, [facility] [place] [facility] [address] [facility] [id number], [place] [address] Feb, [facility] [place] [facility] [address] [facility] [id number], [place] [address] Feb, [facility] [place] [facility] [address] [id number], [place] [address] Jan, [facility] [place] [facility] [address] [facility] [id number], [place] [address] Jan, [facility] [place] [facility] [address] [facility] [id number], [place] [address] Jan, [facility] [place] [facility] [address] [id number] [place] [address] Jan, 2013 [facility] [place] [facility] [address] [id number] [place] [address] Jan, [facility] [place] [facility] [address] [id number] [place] [address] Jan, [facility] [place] [facility] [address] [id number] [place] [address] Dec, [facility] [place] [facility] [address] [id number] [place] [address] Dec, [facility] [place] [facility] [address] [id number] [place] [address] Dec, [facility] [place] [facility] [address] [id number] [place] [address] Dec, [facility] [place] [facility] [address] [id number] [place] [address] Nov, [facility] [place] [facility] [address] [id number] [place] [address] Nov, [facility] [place] [facility] [address] [id number] [place] [address] Nov, [facility] [place] [facility] [address] [id number] [place] [address] Nov, [facility] [place] [facility] [address] [id number] [place] [address] Nov, [facility] [place] [facility] [address] [id number] [place] [address] Nov, [facility] [place] [facility] [address] [id number] [place] [address] Nov, [facility] [place] [facility] [address] [id number] [place] [address] Nov, [facility] [place] [facility] [address] [id number] [place] [address] Oct, [facility] [place] [facility] [address] [id number] [place] [address] Oct, [facility] [place] [facility] [address] [id number] [place] [address] Oct, [facility] [place] [facility] [address] [id number] [place] [address] Oct, [facility] [place] [facility] [address] [id number] [place] [address] Oct, [facility] [place] [facility] [address] [id number] [place] [address] Oct, [facility] [place] [facility] [address] [id number] [place] [address] Oct, [facility] [place] [facility] [address] [id number] [place] [address] Oct, [facility] [place] [facility] [address] [id number] [place] [address] Oct, [facility] [place] [facility] [address] [id number] [place] [address] Oct, [facility] [place] [facility] [address] [id number] [place] [address] Oct, [facility] [place] [facility] [address] [id number], [place] [address] Oct, [facility] [place] [facility] [address] [id number], [place] [address] Oct, [facility] [place] [facility] [address] [id number] [place] [address] Oct, [facility] [place] [facility] [address] [id number], [place] [address] Oct, [facility] [place] [facility] [address] [id number] [place] [address] Oct, [facility] [place] [facility] [address] [id number] [place] [address] 16 Oct, 2013 [facility] [place] [facility] [address] [id number] [place] [address] 16 Oct, 2013 [facility] [place] [facility] [address] [id number] [place] [address] Oct, [facility] [place] [facility] [address] [id number] [place] [address] Oct, [facility] [place] [facility] [address] [id number] [place] [address] Oct, [facility] [place] [facility] [address] [id number] [place] [address] Oct, [facility] [place] [facility] [address] [id number] [place] [address] Oct, [facility] [place] [facility] [address] [id number] [place] [address] Oct, [facility] [place] [facility] [address] [id number] [place] [address] Oct, [facility] [place] [facility] [address] [id number] [place] [address] Oct, [facility] [place] [facility] [address] [id number] [place] [address] Oct, [facility] [place] [facility] [address] [id number] [place] [address] Oct, [facility] [place] [facility] [address] [id number] [place] [address] Oct, [facility] [place] [facility] [address] [id number] [place] [address] Oct, [facility] [place] [facility] [address] [id number] [place] [address] September, [facility] [place] [facility] [address] [id number] [place] [place] [address] September, [facility] [place] [facility] [address] [id number] [place] [address] September, [facility] [address] [id number] [place] [address] September, [facility] [address] [id number] [place] [address] September, [facility] [address] [id number] [place] [address] September, [facility] [address] [id number] [place] [address] September, [facility] [address] [id number] [place] [address] September, [facility] [address] [id number] [place] [address] September, [facility] [address] [id number] [place] [address] September, [facility] [address] [id number] [place] [address] September, [facility] [address] [id number] [place] [address] September, [facility] [address] [id number] [place] [address] September, [facility] [address] [id number] [place] [address] September, [facility] [place] [facility] [address] [id number] [place] [address] September, [facility] [place] [facility] [address] [id number] [place] [address] September, [facility] [address] [id number] [place] [address] September, [facility] [place] [facility] [address] [id number] [place] [address] September, [facility] [place] [facility] [address] [id number] [place] [address] Aug, [facility] [place] [facility] [address] [id number] [place] [address] Aug, [facility] [place] [facility] [address] [id number] [place] [address] Aug, [facility] [place] [facility] [address] [id number] [place] [address] Aug, [facility] [place] [facility] [address] [id number] [place] [address] Aug, [facility] [place] [facility] [address] [id number] [place] [address] Aug, [facility] [place] [facility] [address] [id number] [place] [address] Jul, [facility] [place] [facility] [address] [id number] [place] [address] Jul, [facility] [place] [facility] [address] [id number] [place] [address] Jul, [facility] [place] [facility] [address] [id number] [place] [address] Jul, [facility] [place] [facility] [address] [id number] [place] [address] Jun, [facility] [place] [facility] [address] [id number] [place] [address] Jun, [facility] [place] [facility] [address] [id number] [place] [address] Jun, [facility] [place] [facility] [address] [id number] [place] [address] Jun, [facility] [place] [facility] [address] [id number] [place] [address] Mar, [facility] [place] [facility] [address] [id number] [place] [address] 14 Mar, 2013 [facility] [place] [facility] [address] [id number] [place] [address] Mar, [facility] [place] [facility] [address] [id number] [place] [address] Mar, [facility] [place] [facility] [address] [id number] [place] [address] Feb, [facility] [place] [facility] [address] [id number] [place] [address] Feb, [facility] [place] [facility] [address] [id number] [place] [address] Feb, [facility] [place] [facility] [address] [id number] [place] [address] Jan, [facility] [place] [facility] [address] [id number] [place] [address] Jan, [facility] [place] [facility] [address] [id number] [place] [address] Jan, [facility] [place] [facility] [address] [id number] [place] [address] Jan, [facility] [place] [facility] [address] [id number] [place] [address] Dec, [facility] [place] [facility] [address] [id number] [place] [address] Dec, [facility] [place] [facility] [address] [id number] [place] [address] Dec, [facility] [place] [facility] [address] [id number] [place] [address] Dec, [facility] [place] [facility] [address] [id number] [place] [address] Nov, [facility] [place] [facility] [address] [id number] [place] [address] Nov, [facility] [place] [facility] [address] [id number] [place] [address] Nov, [facility] [place] [facility] [address] [id number] [place] [address] Nov, [facility] [place] [facility] [address] [id number] [place] [address] Nov, [facility] [place] [facility] [address] [id number] [place] [address] Nov, [facility] [place] [facility] [address] [id number] [place] [address] Oct, [facility] [place] [facility] [address] [id number] [place] [address] Oct, [facility] [place] [facility] [address] [id number] [place] [address] Oct, [facility] [place] [facility] [address] [id number] [place] [address] Oct, [facility] [place] [facility] [address] [id number] [place] [address] 17 Oct, 2012 [facility] [place] [facility] [address] [id number] [place] [address] 16 Oct, 2012 [facility] [place] [facility] [address] [id number], [place] [address] 14 Oct, 2012 [facility] [place] [facility] [address] [id number], [place] [address] 13 Oct, 2012 [facility] [place] [facility] [address] [id number] [place] [address] Oct, [facility] [place] [facility] [address] [id number] [place] [address] 07 Oct, 2012 [facility] [place] [facility] [address] [id number] [place] [address] September, [facility] [place] [facility] [address] [id number] [place] [address] September, [facility] [address] [id number] [place] [address] September, [facility] [address] [id number] [place] [address] Aug, [facility] [address] [id number] [place] [address] Aug, [facility] [address] [id number] [place] [address] Aug, [facility] [address] [id number] [place] [address] Aug, [facility] [address] [id number] [place] [address] Jul, [facility] [address] [id number] [place] [address] Jul, [facility] [address] [id number] [place] [address] Jul, [facility] [address] [id number] [place] [address] Jul, [facility] [address] [id number] [place] [address] Jul, [facility] [address] [id number] [place] [address] Jul, [facility] [place] [facility] [address] [id number] [place] [address] May, [facility] [place] [facility] [address] [id number] [place] [address] May, [facility] [place] [facility] [address] [id number] [place] [address] May, [facility] [address] [id number] [place] [address] May, [facility] [place] [facility] [address] [id number] [place] [address] May, [facility] [address] [id number] [place] [address] May, [facility] [address] [id number] [place] [address] May, [facility] [address] [id number] [place] [address] May, [facility] [address] [id number] [place] [address] May, [facility] [address] [id number] [place] [address] May, [facility] [address] [id number] [place] [address] May, [facility] [address] [id number] [place] [address] Apr, [facility] [address] [id number] [place] [address] Apr, [facility] [address] [id number] [place] [address] Apr, [facility] [address] [id number] [place] [address] Apr, [facility] [address] [id number] [place] [address] Apr, [facility] [address] [id number] [place] [address] Apr, [facility] [address] [id number] [place] [address] Mar, [facility] [address] [id number] [place] [address] Mar, [facility] [address] [id number] [place] [address] Mar, [facility] [place] [facility] [address] [id number] [place] [address] Mar, [facility] [place] [facility] [address] [id number] [place] [address] Mar, [facility] [place] [facility] [address] [id number] [place] [address] Mar, [facility] [place] [facility] [address] [id number] [place] [address] Mar, [facility] [place] [facility] [address] [id number] [place] [address] Mar, [facility] [place] [facility] [address] [id number] [place] [address] Feb, [facility] [place] [facility] [address] [id number] [place] [address] Feb, [facility] [place] [facility] [address] [id number] [place] [address] 16 Feb, 2012 [facility] [place] [facility] [address] [id number] [place] [address] 15 Feb, 2012 [facility] [place] [facility] [address] [id number] [place] [address] 15 Feb, 2012 [facility] [place] [facility] [address] [id number], [place] [address] 13 Feb, 2012 [facility] [place] [facility] [address] [id number], [place] [address] 12 Feb, 2012 [facility] [place] [facility] [address] [id number] [place] [address] Feb, [facility] [place] [facility] [address] [id number], [place] [address] Feb, [facility] [place] [facility] [address] [id number] [place] [address] Feb, [facility] [place] [facility] [address] [id number] [place] [address] Feb, [facility] [place] [facility] [address] [id number] [place] [address] Feb, [facility] [place] [facility] [address] [id number] [place] [address] Feb, [facility] [place] [facility] [address] [id number] [place] [address] Feb, [facility] [place] [facility] [address] [id number] [place] [address] Feb, [facility] [place] [facility] [address] [id number] [place] [address] Feb, [facility] [place] [facility] [address] [id number] [place] [address] Feb, [facility] [place] [facility] [address] [id number] [place] [address] Feb, [facility] [place] [facility] [address] [id number] [place] [address] 19 Jan, 2012 [facility] [place] [facility] [address] [id number] [place] [address] 13 Jan, 2012 [facility] [place] [facility] [address] [id number] [place] [address] 11 Jan, 2012 [facility] [place] [facility] [address] [id number] [place] [address] 10 Jan, 2012 [facility] [place] [facility] [address] [id number] [place] [address] 05 Jan, 2012 [facility] [place] [facility] [address] [id number] [place] [address] Dec, [facility] [place] [facility] [address] [id number] [place] [address] Dec, [facility] [place] [facility] [address] [id number] [place] [address] Dec, [facility] [place] [facility] [address] [id number] [place] [address] Dec, [facility] [place] [facility] [address] [id number] [place] [address] Dec, [facility] [place] [facility] [address] [id number] [place] [address] Dec, [facility] [place] [facility] [address] [id number] [place] [address] Nov, [facility] [place] [facility] [address] [id number] [place] [address] Nov, [facility] [place] [facility] [address] [id number] [place] [address] Nov, [facility] [place] [facility] [address] [id number] [place] [address] Nov, [facility] [place] [facility] [address] [id number] [place] [address] Nov, [facility] [place] [facility] [address] [id number] [place] [address] Oct, [facility] [place] [facility] [address] [id number] [place] [address] Oct, [facility] [place] [facility] [address] [id number] [place] [address] Oct, [facility] [place] [facility] [address] [id number] [place] [address] September, [facility] [place] [facility] [address] [id number] [place] [address] September, [facility] [place] [facility] [address] [id number] [place] [address] September, [facility] [place] [facility] [address] [id number] [place] [address] September, [facility] [place] [facility] [address] [id number] [place] [address] September, [facility] [address] [id number] [place] [address] September, [facility] [place] [facility] [address] [id number] [place] [address] Aug, [facility] [place] [facility] [address] [id number] [place] [address] Aug, [facility] [place] [facility] [address] [id number] [place] [address] Aug, [facility] [place] [facility] [address] [id number] [place] [address] Jun, [facility] [place] [facility] [address] [id number] [place] [address] Jun, [facility] [address] [id number] [place] [address] Jun, [facility] [place] [facility] [address] [id number] [place] [address] Jun, [facility] [place] [facility] [address] [id number] [place] [address] May, [facility] [address] [facility] [id number] [place] [address] May, [facility] [place] [facility] [address] [id number] [place] [address] May, [facility] [place] [facility] [address] [id number] [place] [address] May, [facility] [place] [facility] [address] [id number] [place] [address] May, [facility] [place] [facility] [address] [id number] [place] [address] Apr, [facility] [place] [facility] [address] [id number] [place] [address] Apr, [facility] [place] [facility] [address] [id number] [place] [address] Apr, [facility] [place] [facility] [address] [id number] [place] [address] Apr, [facility] [place] [facility] [address] [id number] [place] [address] Apr, [facility] [place] [facility] [address] [id number] [place] [address] Apr, [facility] [place] [facility] [address] [id number] [place] [address] Apr, [facility] [place] [facility] [address] [id number] [place] [address] Mar, [facility] [place] [facility] [address] [id number] [place] [address] Mar, [facility] [place] [facility] [address] [id number] [place] [address] Mar, [facility] [place] [facility] [address] [id number] [place] [address] Feb, [facility] [place] [facility] [address] [id number] [place] [address] 24 Feb, 2011 [facility] [place] [facility] [address] [id number] [place] [address] Feb, [facility] [place] [facility] [address] [id number], [place] [address] Feb, [facility] [place] [facility] [address] [id number] [place] [address] 18 Feb, 2011 [facility] [place] [facility] [address] [id number] [place] [address] 17 Feb, 2011 [facility] [place] [facility] [address] [id number] [place] [address] 13 Jan, 2011 [facility] [place] [facility] [address] [id number] [place] [address] 12 Jan, 2011 [facility] [address] [id number] [place] [address] September, [facility] [place] [facility] [address] [id number] [place] [address] Jun, [facility] [place] [facility] [address] [id number] [place] [address] Apr, [facility] [place] [facility] [address] [id number] [place] [address] Apr, [facility] [place] [facility] [address] [id number] [place] [address] Apr, [facility] [place] [facility] [address] [id number] [place] [address] Apr, [facility] [place] [facility] [address] [id number] [place] [address] Apr, [facility] [place] [facility] [address] [id number] [place] [address] 30 Mar, 2010 [facility] [place] [facility] [address] [id number] [place] [address] 24 Mar, 2010 [facility] [place] [facility] [address] [id number] [place] [address] Mar, [facility] [place] [facility] [address] [id number], [place] [address] 05 Mar, 2010 [facility] [place] [facility] [address] [id number] [place] [address] 27 Feb, 2010 [facility] [place] [facility] [address] [id number] [place] [address] 15 Jan, 2010 [facility] [place] [facility] [address] [id number] [place] [address] 07 Mar, 2009 [facility] [place] [facility] [address] [id number] [place] [address] 15 Jan, 2009 [facility] [place] [facility] [address] [facility] [id number] [place] [address] Oct, [facility] [address] [facility] [id number] [place] [address] Apr, IMMUNIZATIONS No Known Immunizations SOCIAL HISTORY [...]
[2018-09-28] MEDS ORDERED: LIDOCAINE/EPI 2% 1:100,00 (XYLOCAINE) 20 ML VIAL INJ ONE (04:15)
[2018-09-28] MEDS ORDERED: KETOROLAC 30 MG/ML VIAL IM ONE (04:15)
[2018-09-28] MEDS ORDERED: TRIM/SULFAMETH 160/800 (SEPTRA DS) TAB PO ONE (04:30)
--- OUTSIDE RECORDS SUMMARY | 2018-09-28 04:45 | XMS REPORT | Continuity of Care Document ---
Author Organization Unknown Address Unknown Allergies Active Description Code Type Severity Reaction Onset Reported/Identified Relationship to Patient Clinical Status Yes Penicillins Drug Allergy N/A N/A 09/10/2008 Yes surgical tape OA N/A N/A 09/10/2008 Yes Penicillins Drug Allergy 09/10/2008 Yes surgical tape OA 09/10/2008 Yes Penicillins [id number] Drug Allergy Unknown N/A 05/29/2011 Medications There [...] long-term tamoxifen use 12/04/2007 MARLENI BOSCH APRNA L 780.52 insomnia 12/04/2007 MARLENI BOSCH APRNA L V58.69 taking female hormones - long-term tamoxifen use 12/04/2007 ERICKA HULL DO 780.52 insomnia 12/04/2007 ERICKA HULL DO V58.69 taking female hormones - long-term tamoxifen use 12/04/2007 MADL PERCUSSION INSTRUMENT REPAIRER, BRITANY L 780.52 insomnia 12/04/2007 MADL PERCUSSION INSTRUMENT REPAIRER, BRITANY L V58.69 taking female hormones - long-term tamoxifen use 12/04/2007 780.52 insomnia 12/04/2007 V58.69 taking female hormones - long-term tamoxifen use 12/04/2007 [facility], ERICK R 780.52 insomnia 12/04/2007 [facility], ERICK R V58.69 taking female hormones - long-term tamoxifen use 12/04/2007 MADL PERCUSSION INSTRUMENT REPAIRER, BRITANY L 780.52 insomnia 12/04/2007 MADL PERCUSSION INSTRUMENT REPAIRER, BRITANY L V58.69 taking female hormones - long-term tamoxifen use 12/04/2007 HULL DOROCIOA K 780.52 insomnia 12/04/2007 HULL DO ERICKA K V58.69 taking female hormones - long-term tamoxifen use 12/04/2007 MADL PERCUSSION INSTRUMENT REPAIRER, BRITANY L 780.52 insomnia 12/04/2007 MADL PERCUSSION INSTRUMENT REPAIRER, BRITANY L V58.69 taking female hormones - long-term tamoxifen use 12/04/2007 MADL PERCUSSION INSTRUMENT REPAIRER, BRITANY L 780.52 insomnia 12/04/2007 MADL PERCUSSION INSTRUMENT REPAIRER, BRITANY L V58.69 taking female hormones - long-term tamoxifen use 12/04/2007 MADL PERCUSSION INSTRUMENT REPAIRER, BRITANY L 780.52 insomnia 12/04/2007 MADL PERCUSSION INSTRUMENT REPAIRER, BRITANY L V58.69 taking female hormones - long-term tamoxifen use 12/04/2007 TIFFANI ROSA 780.52 insomnia 12/04/2007 TIFFANI ROSA V58.69 taking female hormones - long-term tamoxifen use 12/04/2007 MADL PERCUSSION INSTRUMENT REPAIRER, BRITANY L 780.52 insomnia 12/04/2007 MADL PERCUSSION INSTRUMENT REPAIRER, BRITANY L V58.69 taking female hormones - long-term tamoxifen use 12/04/2007 MADL PERCUSSION INSTRUMENT REPAIRER, BRITANY L 780.52 insomnia 12/04/2007 MADL PERCUSSION INSTRUMENT REPAIRER, BRITANY L V58.69 taking female hormones - long-term tamoxifen use 04/30/2008 IVET BARGER DO 465.9 Upper Respiratory Infection 04/30/2008 IVET BARGER DO F 788.1 Pain During Urination (dysuria) 04/30/2008 ARLENE LEMA APRN 465.9 Upper Respiratory Infection 04/30/2008 ARLENE LEMA APRN D 788.1 Pain During Urination (dysuria) 04/30/2008 465.9 Upper Respiratory Infection 04/30/2008 788.1 Pain During Urination (dysuria) 04/30/2008 ARLENE LEMA APRN 465.9 Upper Respiratory Infection 04/30/2008 ARLENE LEMA APRN 788.1 Pain During Urination (dysuria) 04/30/2008 IVET [...] 788.1 Pain During Urination (dysuria) 04/30/2008 GARTON PERCUSSION INSTRUMENT REPAIRER, ARLENE D 465.9 Upper Respiratory Infection 04/30/2008 GARTON PERCUSSION INSTRUMENT REPAIRER, ARLENE D 788.1 Pain During Urination (dysuria) 04/30/2008 GARTON PERCUSSION INSTRUMENT REPAIRER, ARLENE D 465.9 Upper Respiratory Infection 04/30/2008 GARTON PERCUSSION INSTRUMENT REPAIRER, ARLENE D 788.1 Pain During Urination (dysuria) 04/30/2008 GARTON PERCUSSION INSTRUMENT REPAIRER, ARLENE D 465.9 Upper Respiratory Infection 04/30/2008 GARTON PERCUSSION INSTRUMENT REPAIRER, ARLENE D 788.1 Pain During Urination (dysuria) 04/30/2008 TAN PERCUSSION INSTRUMENT REPAIRER, MARC A 465.9 Upper Respiratory Infection 04/30/2008 TAN PERCUSSION INSTRUMENT REPAIRER, MARC A 788.1 Pain During Urination (dysuria) 04/30/2008 MADL PERCUSSION INSTRUMENT REPAIRER, BRITANY L 465.9 Upper Respiratory Infection 04/30/2008 MADL PERCUSSION INSTRUMENT REPAIRER, BRITANY L 788.1 Pain During Urination (dysuria) 04/30/2008 MADL PERCUSSION INSTRUMENT REPAIRER, BRITANY L 465.9 Upper Respiratory Infection 04/30/2008 MADL PERCUSSION INSTRUMENT REPAIRER, BRITANY L 788.1 Pain During Urination (dysuria) 04/30/2008 HULL ROCIO WALTERSA K 465.9 Upper Respiratory Infection 04/30/2008 HULL DO ERICKA K 788.1 Pain During Urination (dysuria) 04/30/2008 MADL PERCUSSION INSTRUMENT REPAIRER, BRITANY L 465.9 Upper Respiratory Infection 04/30/2008 MADL PERCUSSION INSTRUMENT REPAIRER, BRITANY L 788.1 Pain During Urination (dysuria) 04/30/2008 465.9 Upper Respiratory Infection 04/30/2008 788.1 Pain During Urination (dysuria) 04/30/2008 [facility], ERICK R 465.9 Upper Respiratory Infection 04/30/2008 [facility], ERICK R 788.1 Pain During Urination (dysuria) 04/30/2008 MADL PERCUSSION INSTRUMENT REPAIRER, BRITANY L 465.9 Upper Respiratory Infection 04/30/2008 MADL PERCUSSION INSTRUMENT REPAIRER, BRITANY L 788.1 Pain During Urination (dysuria) 04/30/2008 HULL DO, ERICKA K 465.9 Upper Respiratory Infection 04/30/2008 HULL DO, ERICKA K 788.1 Pain During Urination (dysuria) 04/30/2008 MADL PERCUSSION INSTRUMENT REPAIRER, BRITANY L 465.9 Upper Respiratory Infection 04/30/2008 MADL PERCUSSION INSTRUMENT REPAIRER, BRITANY L 788.1 Pain During Urination (dysuria) 04/30/2008 MADL PERCUSSION INSTRUMENT REPAIRER, BRITANY L 465.9 Upper Respiratory Infection 04/30/2008 MADL PERCUSSION INSTRUMENT REPAIRER, BRITANY L 788.1 Pain During Urination (dysuria) 04/30/2008 MADL PERCUSSION INSTRUMENT REPAIRER, BRITANY L 465.9 Upper Respiratory Infection 04/30/2008 MADL PERCUSSION INSTRUMENT REPAIRER, BRITANY L 788.1 Pain During Urination (dysuria) 04/30/2008 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, TIFFANI M 465.9 Upper Respiratory Infection 04/30/2008 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, TIFFANI M 788.1 Pain During Urination (dysuria) 04/30/2008 MADL PERCUSSION INSTRUMENT REPAIRER, BRITANY L 465.9 Upper Respiratory Infection 04/30/2008 MADL PERCUSSION INSTRUMENT REPAIRER, BRITANY L 788.1 Pain During Urination (dysuria) 04/30/2008 MADL PERCUSSION INSTRUMENT REPAIRER, BRITANY L 465.9 Upper Respiratory Infection 04/30/2008 MADL PERCUSSION INSTRUMENT REPAIRER, BRITANY L 788.1 Pain During Urination (dysuria) [...] ARLENE LEMA APRN 278.01 Obesity Morbid 09/10/2008 TANRussell SUGGS MARC A 278.01 Obesity Morbid 09/10/2008 MADL PERCUSSION INSTRUMENT REPAIRER, BRITANY L 278.01 Obesity Morbid 09/10/2008 MADL PERCUSSION INSTRUMENT REPAIRER, BRITANY L 278.01 Obesity Morbid 09/10/2008 HULL DO, ERICKA K 278.01 Obesity Morbid 09/10/2008 MADL PERCUSSION INSTRUMENT REPAIRER, BRITANY L 278.01 Obesity Morbid 09/10/2008 278.01 Obesity Morbid 09/10/2008 [facility], ERICK R 278.01 Obesity Morbid 09/10/2008 MADL PERCUSSION INSTRUMENT REPAIRER, BRITANY L 278.01 Obesity Morbid 09/10/2008 HULL DO, ERICKA K 278.01 Obesity Morbid 09/10/2008 MADL PERCUSSION INSTRUMENT REPAIRER, BRITANY L 278.01 Obesity Morbid 09/10/2008 MADL PERCUSSION INSTRUMENT REPAIRER, BRITANY L 278.01 Obesity Morbid 09/10/2008 MADL PERCUSSION INSTRUMENT REPAIRER, BRITANY L 278.01 Obesity Morbid 09/10/2008 TIFFANI ROSA 278.01 Obesity Morbid 09/10/2008 MADL PERCUSSION INSTRUMENT REPAIRER, BRITANY L 278.01 Obesity Morbid 09/10/2008 MADL PERCUSSION INSTRUMENT REPAIRER, BRITANY L 278.01 Obesity Morbid 10/31/2008 IVET [...] LEMA APRN D 723.5 Torticollis 10/31/2008 PITA PERCUSSION INSTRUMENT REPAIRERCRISTIAN WellsARLENE D 723.5 Torticollis 10/31/2008 PITA PERCUSSION INSTRUMENT REPAIRER, ARLENE D 723.5 Torticollis 10/31/2008 PITA PERCUSSION INSTRUMENT REPAIRER, ARLENE D 723.5 Torticollis 10/31/2008 PITA PERCUSSION INSTRUMENT REPAIRERCRISTIAN WellsARLENE D 723.5 Torticollis 10/31/2008 TAN PERCUSSION INSTRUMENT REPAIRER, MARC A 723.5 Torticollis 10/31/2008 MADL PERCUSSION INSTRUMENT REPAIRER, BRITANY L 723.5 Torticollis 10/31/2008 MADL PERCUSSION INSTRUMENT REPAIRER, BRITANY L 723.5 Torticollis 10/31/2008 HULL DOROCIOA K 723.5 Torticollis 10/31/2008 MADL PERCUSSION INSTRUMENT REPAIRER, BRITANY L 723.5 Torticollis 10/31/2008 723.5 Torticollis 10/31/2008 [facility], ERICK R 723.5 Torticollis 10/31/2008 MADL PERCUSSION INSTRUMENT REPAIRER, BRITANY L 723.5 Torticollis 10/31/2008 HULL DO ERICKA K 723.5 Torticollis 10/31/2008 MADL PERCUSSION INSTRUMENT REPAIRER, BRITANY L 723.5 Torticollis 10/31/2008 MADL PERCUSSION INSTRUMENT REPAIRER, BRITANY L 723.5 Torticollis 10/31/2008 MADL PERCUSSION INSTRUMENT REPAIRER, BRITANY L 723.5 Torticollis 10/31/2008 TIFFANI ROSA 723.5 Torticollis 10/31/2008 MADL PERCUSSION INSTRUMENT REPAIRER, BRITANY L 723.5 Torticollis 10/31/2008 MADL PERCUSSION INSTRUMENT REPAIRER, BRITANY L 723.5 Torticollis 01/26/2009 WERDER DO, IVET F 707.9 Chronic Cutaneous Ulcer 01/26/2009 IVET BARGER DO F 709.9 Dermatology - Non-infectious 01/26/2009 ARLENE LEMA APRN 707.9 Chronic Cutaneous Ulcer 01/26/2009 ARLENE LEMA APRN 709.9 Dermatology - Non-infectious 01/26/2009 707.9 Chronic Cutaneous Ulcer 01/26/2009 709.9 Dermatology - Non- infectious 01/26/2009 ARLENE LEMA APRN 707.9 Chronic Cutaneous Ulcer 01/26/2009 ARLENE LEMA APRN 709.9 Dermatology - Non-infectious 01/26/2009 IVET BARGER DO F 707.9 Chronic Cutaneous Ulcer 01/26/2009 IVET BARGER DO F 709.9 Dermatology - Non-infectious 01/26/2009 NAY PALOMO APRN S 707.9 Chronic Cutaneous Ulcer 01/26/2009 NAY PALOMO APRN S 709.9 Dermatology - Non-infectious 01/26/2009 707.9 Chronic Cutaneous Ulcer 01/26/2009 709.9 Dermatology - Non- infectious 01/26/2009 707.9 Chronic Cutaneous Ulcer 01/26/2009 709.9 Dermatology - Non- infectious 01/26/2009 707.9 Chronic Cutaneous Ulcer 01/26/2009 709.9 Dermatology - Non- infectious 01/26/2009 707.9 Chronic Cutaneous Ulcer 01/26/2009 709.9 Dermatology - Non- infectious 01/26/2009 707.9 Chronic Cutaneous Ulcer 01/26/2009 709.9 Dermatology - Non- infectious 01/26/2009 707.9 Chronic Cutaneous Ulcer 01/26/2009 709.9 Dermatology - Non- infectious 01/26/2009 ARLENE LEMA APRN 707.9 Chronic Cutaneous Ulcer 01/26/2009 ARLENE LEMA APRN 709.9 Dermatology - Non-infectious 01/26/2009 ARLENE LEMA APRN 707.9 Chronic Cutaneous Ulcer 01/26/2009 ARLENE LEMA APRN 709.9 Dermatology - Non-infectious 01/26/2009 GARTON PERCUSSION INSTRUMENT REPAIRER, ARLENE D 707.9 Chronic Cutaneous Ulcer 01/26/2009 PITA PERCUSSION INSTRUMENT REPAIRERARLENE Wells D 709.9 Dermatology - Non-infectious 01/26/2009 PITA PERCUSSION INSTRUMENT REPAIRERARLENE Wells D 707.9 Chronic Cutaneous Ulcer 01/26/2009 RAINATON PERCUSSION INSTRUMENT REPAIRERARLENE Wells D 709.9 Dermatology - Non-infectious 01/26/2009 RAINAARLENE NUNES APRN D 707.9 Chronic Cutaneous Ulcer 01/26/2009 RAINAARLENE NUNES APRN D 709.9 Dermatology - Non-infectious 01/26/2009 TAN PERCUSSION INSTRUMENT REPAIRER, MARC A 707.9 Chronic Cutaneous Ulcer 01/26/2009 TAN PERCUSSION INSTRUMENT REPAIRER, MARC A 709.9 Dermatology - Non-infectious 01/26/2009 MADL PERCUSSION INSTRUMENT REPAIRER, BRITANY L 707.9 Chronic Cutaneous Ulcer 01/26/2009 MADL PERCUSSION INSTRUMENT REPAIRER, BRITANY L 709.9 Dermatology - Non-infectious 01/26/2009 MADL PERCUSSION INSTRUMENT REPAIRER, BRITANY L 707.9 Chronic Cutaneous Ulcer 01/26/2009 MADL PERCUSSION INSTRUMENT REPAIRER, BRITANY L 709.9 Dermatology - Non-infectious 01/26/2009 HULL DO ERICKA K 707.9 Chronic Cutaneous Ulcer 01/26/2009 HULL DO ERICKA K 709.9 Dermatology - Non-infectious 01/26/2009 MADL PERCUSSION INSTRUMENT REPAIRER, BRITANY L 707.9 Chronic Cutaneous Ulcer 01/26/2009 MADL PERCUSSION INSTRUMENT REPAIRER, BRITANY L 709.9 Dermatology - Non-infectious 01/26/2009 707.9 Chronic Cutaneous Ulcer 01/26/2009 709.9 Dermatology - Non- infectious 01/26/2009 [facility], ERICK R 707.9 Chronic Cutaneous Ulcer 01/26/2009 [facility], ERICK R 709.9 Dermatology - Non-infectious 01/26/2009 MADL PERCUSSION INSTRUMENT REPAIRER, BRITANY L 707.9 Chronic Cutaneous Ulcer 01/26/2009 MADL PERCUSSION INSTRUMENT REPAIRER, BRITANY L 709.9 Dermatology - Non-infectious 01/26/2009 HULL DO ERICKA K 707.9 Chronic Cutaneous Ulcer 01/26/2009 HULL DO ERICKA K 709.9 Dermatology - Non-infectious 01/26/2009 MADL PERCUSSION INSTRUMENT REPAIRER, BRITANY L 707.9 Chronic Cutaneous Ulcer 01/26/2009 MADL PERCUSSION INSTRUMENT REPAIRER, BRITANY L 709.9 Dermatology - Non-infectious 01/26/2009 MADL PERCUSSION INSTRUMENT REPAIRER, BRITANY L 707.9 Chronic Cutaneous Ulcer 01/26/2009 MADL PERCUSSION INSTRUMENT REPAIRER, BRITANY L 709.9 Dermatology - Non-infectious 01/26/2009 MADL PERCUSSION INSTRUMENT REPAIRER, BRITANY L 707.9 Chronic Cutaneous Ulcer 01/26/2009 MADL PERCUSSION INSTRUMENT REPAIRER, BRITANY L 709.9 Dermatology - Non-infectious 01/26/2009 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, TIFFANI M 707.9 Chronic Cutaneous Ulcer 01/26/2009 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, TIFFANI M 709.9 Dermatology - Non-infectious 01/26/2009 MADL PERCUSSION INSTRUMENT REPAIRER, BRITANY L 707.9 Chronic Cutaneous Ulcer 01/26/2009 MADL PERCUSSION INSTRUMENT REPAIRER, BRITANY L 709.9 Dermatology - Non-infectious 01/26/2009 MADL PERCUSSION INSTRUMENT REPAIRER, BRITANY L 707.9 Chronic Cutaneous Ulcer 01/26/2009 MADL PERCUSSION INSTRUMENT REPAIRER, BRITANY L 709.9 Dermatology - Non-infectious 01/06/2010 IVET BARGER DO 535.00 Acute Gastritis, Without Mention Of Hemorrhage 01/06/2010 IVET BARGER DO 719.46 Pain In Joint, Lower Leg 01/06/2010 ARLENE LEMA APRN 535.00 Acute Gastritis, Without Mention Of Hemorrhage 01/06/2010 ARLENE LEMA APRN 719.46 Pain In Joint, Lower Leg 01/06/2010 535.00 Acute Gastritis, Without Mention Of Hemorrhage 01/06/2010 719.46 Pain In Joint, Lower Leg 01/06/2010 ARLENE LEMA APRN 535.00 Acute Gastritis, Without Mention Of Hemorrhage 01/06/2010 ARLENE LEMA APRN 719.46 Pain In Joint, Lower Leg 01/06/2010 IVET BARGER DO 535.00 Acute Gastritis, Without Mention Of Hemorrhage 01/06/2010 IVET BARGER DO 719.46 Pain In Joint, Lower Leg 01/06/2010 NAY PALOMO APRN 535.00 Acute Gastritis, Without Mention Of Hemorrhage 01/06/2010 NAY PALOMO APRN 719.46 Pain In Joint, Lower Leg 01/06/2010 535.00 Acute Gastritis, Without Mention Of Hemorrhage 01/06/2010 719.46 Pain In Joint, Lower Leg 01/06/2010 535.00 Acute Gastritis, Without Mention Of Hemorrhage 01/06/2010 719.46 Pain In Joint, Lower Leg 01/06/2010 535.00 Acute Gastritis, Without Mention Of Hemorrhage 01/06/2010 719.46 Pain In Joint, Lower Leg 01/06/2010 535.00 Acute Gastritis, Without Mention Of Hemorrhage 01/06/2010 719.46 Pain In Joint, Lower Leg 01/06/2010 535.00 Acute Gastritis, Without Mention Of Hemorrhage 01/06/2010 719.46 Pain In Joint, Lower Leg 01/06/2010 535.00 Acute Gastritis, Without Mention Of Hemorrhage 01/06/2010 719.46 Pain In Joint, Lower Leg 01/06/2010 ARLENE LEMA APRN D 535.00 Acute Gastritis, Without Mention Of Hemorrhage 01/06/2010 CRISTIAN LEMA APRNBETH D 719.46 Pain In Joint, Lower Leg 01/06/2010 CRISTIAN LEMA APRNBETH D 535.00 Acute Gastritis, Without Mention Of Hemorrhage 01/06/2010 ARLENE LEMA APRN 719.46 Pain In Joint, Lower Leg 01/06/2010 CRISTIAN LEMA APRNBETH D 535.00 Acute Gastritis, Without Mention Of Hemorrhage 01/06/2010 ARLENE LEMA APRN 719.46 Pain In Joint, Lower Leg 01/06/2010 CRISTIAN LEMA APRNBETH D 535.00 Acute Gastritis, Without Mention Of Hemorrhage 01/06/2010 CRISTIAN LEMA APRNBETH D 719.46 Pain In Joint, Lower Leg 01/06/2010 CRISTIAN LEMA APRNBETH D 535.00 Acute Gastritis, Without Mention Of Hemorrhage 01/06/2010 CRISTIAN LEMA APRNBETH D 719.46 Pain In Joint, Lower Leg 01/06/2010 TAN APRN, MARC A 535.00 Acute Gastritis, Without Mention Of Hemorrhage 01/06/2010 TAN SUGGS MARC A 719.46 Pain In Joint, Lower Leg 01/06/2010 MADL PERCUSSION INSTRUMENT REPAIRER, BRITANY L 535.00 Acute Gastritis, Without Mention Of Hemorrhage 01/06/2010 MADL PERCUSSION INSTRUMENT REPAIRER, BRITANY L 719.46 Pain In Joint, Lower Leg 01/06/2010 MADL PERCUSSION INSTRUMENT REPAIRER, BRITANY L 535.00 Acute Gastritis, Without Mention Of Hemorrhage 01/06/2010 MADL PERCUSSION INSTRUMENT REPAIRER, BRITANY L 719.46 Pain In Joint, Lower Leg 01/06/2010 ROCIO HULL DOA K 535.00 Acute Gastritis, Without Mention Of Hemorrhage 01/06/2010 DELLA WALTERS ERICKA K 719.46 Pain In Joint, Lower Leg 01/06/2010 MADL PERCUSSION INSTRUMENT REPAIRER, BRITANY L 535.00 Acute Gastritis, Without Mention Of Hemorrhage 01/06/2010 MADL PERCUSSION INSTRUMENT REPAIRER, BRITANY L 719.46 Pain In Joint, Lower Leg 01/06/2010 535.00 Acute Gastritis, Without Mention Of Hemorrhage 01/06/2010 719.46 Pain In Joint, Lower Leg 01/06/2010 [facility], ERICK R 535.00 Acute Gastritis, Without Mention Of Hemorrhage 01/06/2010 [facility], ERICK R 719.46 Pain In Joint, Lower Leg 01/06/2010 MADL PERCUSSION INSTRUMENT REPAIRER, BRITANY L 535.00 Acute Gastritis, Without Mention Of Hemorrhage 01/06/2010 MADL PERCUSSION INSTRUMENT REPAIRER, BRITANY L 719.46 Pain In Joint, Lower Leg 01/06/2010 DELLA WALTERS ERICKA K 535.00 Acute Gastritis, Without Mention Of Hemorrhage 01/06/2010 ROCIO HULL DOA K 719.46 Pain In Joint, Lower Leg 01/06/2010 MADL PERCUSSION INSTRUMENT REPAIRER, BRITANY L 535.00 Acute Gastritis, Without Mention Of Hemorrhage 01/06/2010 MADL PERCUSSION INSTRUMENT REPAIRER, BRITANY L 719.46 Pain In Joint, Lower Leg 01/06/2010 MADL PERCUSSION INSTRUMENT REPAIRER, BRITANY L 535.00 Acute Gastritis, Without Mention Of Hemorrhage 01/06/2010 MADL PERCUSSION INSTRUMENT REPAIRER, BRITANY L 719.46 Pain In Joint, Lower Leg 01/06/2010 MADL PERCUSSION INSTRUMENT REPAIRER, BRITANY L 535.00 Acute Gastritis, Without Mention Of Hemorrhage 01/06/2010 MADL PERCUSSION INSTRUMENT REPAIRER, BRITANY L 719.46 Pain In Joint, Lower Leg 01/06/2010 TIFFANI ROSA M 535.00 Acute Gastritis, Without Mention Of Hemorrhage 01/06/2010 TIFFANI ROSA M 719.46 Pain In Joint, Lower Leg 01/06/2010 MADL PERCUSSION INSTRUMENT REPAIRER, BRITANY L 535.00 Acute Gastritis, Without Mention Of Hemorrhage 01/06/2010 MADL PERCUSSION INSTRUMENT REPAIRER, BRITANY L 719.46 Pain In Joint, Lower Leg 01/06/2010 MADL PERCUSSION INSTRUMENT REPAIRER, BRITANY L 535.00 Acute Gastritis, Without Mention Of Hemorrhage 01/06/2010 MADL PERCUSSION INSTRUMENT REPAIRER, BRITANY L 719.46 Pain In Joint, Lower Leg 03/09/2010 IVET BARGER DO 388.70 Ear Ache 03/09/2010 ARLENE LEMA APRN 388.70 Ear Ache 03/09/2010 388.70 Ear Ache 03/09/2010 ARLENE LEMA APRN 388.70 Ear Ache 03/09/2010 IVET BARGER DO 388.70 Ear Ache 03/09/2010 NAY PLAOMO APRN 388.70 Ear Ache 03/09/2010 388.70 Ear [...] ARLENE LEMA APRN 388.70 Ear Ache 03/09/2010 MARC MADDOX APRN 388.70 Ear Ache 03/09/2010 MADL PERCUSSION INSTRUMENT REPAIRER BRITANY L 388.70 Ear Ache 03/09/2010 MADL ES BRITANY L 388.70 Ear Ache 03/09/2010 ERCIKA HULL DO 388.70 Ear Ache 03/09/2010 MADL PERCUSSION INSTRUMENT REPAIRER, BRITANY L 388.70 Ear Ache 03/09/2010 388.70 Ear Ache 03/09/2010 [facility], ERICK R 388.70 Ear Ache 03/09/2010 MADL PERCUSSION INSTRUMENT REPAIRER, BRITANY L 388.70 Ear Ache 03/09/2010 DELLA ERICKA WALTERS 388.70 Ear Ache 03/09/2010 MADL PERCUSSION INSTRUMENT REPAIRER, BRITANY L 388.70 Ear Ache 03/09/2010 MADL PERCUSSION INSTRUMENT REPAIRER, BRITANY L 388.70 Ear Ache 03/09/2010 MADL PERCUSSION INSTRUMENT REPAIRER, BRITANY L 388.70 Ear Ache 03/09/2010 RACHAEL BAEZ, TIFFANI M 388.70 Ear Ache 03/09/2010 MADL PERCUSSION INSTRUMENT REPAIRER, BRITANY L 388.70 Ear Ache 03/09/2010 MADL PERCUSSION INSTRUMENT REPAIRER, BRITANY L 388.70 Ear Ache 03/18/2010 IVET BARGER DO 300.00 ANXIETY UNSPEC 03/18/2010 IVET BARGER DO 305.1 NONDEPENDENT TOBACCO USE DISORDER 03/18/2010 IVET BARGER DO 473.9 Sinusitis (chronic) 03/18/2010 IVET BARGER DO 724.5 BACK PAIN, GENERAL 03/18/2010 ARLENE LEAM APRN 300.00 ANXIETY UNSPEC 03/18/2010 ARLENE LEMA APRN 305.1 NONDEPENDENT TOBACCO USE DISORDER 03/18/2010 ARLENE LEMA APRN 473.9 Sinusitis (chronic) 03/18/2010 ARLENE LEMA APRN 724.5 BACK PAIN, GENERAL 03/18/2010 300.00 ANXIETY UNSPEC 03/18/2010 305.1 NONDEPENDENT TOBACCO USE DISORDER 03/18/2010 473.9 Sinusitis (chronic) 03/18/2010 724.5 BACK PAIN, GENERAL 03/18/2010 ARLENE LEMA APRN 300.00 ANXIETY UNSPEC 03/18/2010 ARLENE LEMA APRN 305.1 NONDEPENDENT TOBACCO USE DISORDER 03/18/2010 ARLENE LEMA APRN 473.9 Sinusitis (chronic) 03/18/2010 ARLENE LEMA APRN 724.5 BACK PAIN, GENERAL 03/18/2010 IVET BARGER DO F 300.00 ANXIETY UNSPEC 03/18/2010 IVET BARGER DO F 305.1 NONDEPENDENT TOBACCO USE DISORDER 03/18/2010 IVET BARGER DO F 473.9 Sinusitis (chronic) 03/18/2010 IVET BARGER DO F 724.5 BACK PAIN, GENERAL 03/18/2010 NAY PALOMO APRN S 300.00 ANXIETY UNSPEC 03/18/2010 NAY PALOMO APRN S 305.1 NONDEPENDENT TOBACCO USE DISORDER 03/18/2010 NAY PALOMO APRN S 473.9 Sinusitis (chronic) 03/18/2010 NAY PALOMO APRN S 724.5 BACK PAIN, GENERAL 03/18/2010 300.00 ANXIETY UNSPEC 03/18/2010 305.1 NONDEPENDENT TOBACCO USE DISORDER 03/18/2010 473.9 Sinusitis (chronic) 03/18/2010 724.5 BACK PAIN, GENERAL 03/18/2010 300.00 ANXIETY UNSPEC 03/18/2010 305.1 NONDEPENDENT TOBACCO USE DISORDER 03/18/2010 473.9 Sinusitis (chronic) 03/18/2010 724.5 BACK PAIN, GENERAL 03/18/2010 300.00 ANXIETY UNSPEC 03/18/2010 305.1 NONDEPENDENT TOBACCO USE DISORDER 03/18/2010 473.9 Sinusitis (chronic) 03/18/2010 724.5 BACK PAIN, GENERAL 03/18/2010 300.00 ANXIETY UNSPEC 03/18/2010 305.1 NONDEPENDENT TOBACCO USE DISORDER 03/18/2010 473.9 Sinusitis (chronic) 03/18/2010 724.5 BACK PAIN, GENERAL 03/18/2010 300.00 ANXIETY UNSPEC 03/18/2010 305.1 NONDEPENDENT TOBACCO USE DISORDER 03/18/2010 473.9 Sinusitis (chronic) 03/18/2010 724.5 BACK PAIN, GENERAL 03/18/2010 300.00 ANXIETY UNSPEC 03/18/2010 305.1 NONDEPENDENT TOBACCO USE DISORDER 03/18/2010 473.9 Sinusitis (chronic) 03/18/2010 724.5 BACK PAIN, GENERAL 03/18/2010 ARLENE [...] APRN 305.1 NONDEPENDENT TOBACCO USE DISORDER 03/18/2010 ARLNEE LEMA APRN 473.9 Sinusitis (chronic) 03/18/2010 ARLENE LEMA APRN 724.5 BACK PAIN, GENERAL 03/18/2010 ARLENE LEMA APRN 300.00 ANXIETY UNSPEC 03/18/2010 ARLENE LEMA APRN 305.1 NONDEPENDENT TOBACCO USE DISORDER 03/18/2010 ARLENE LEMA APRN 473.9 Sinusitis (chronic) 03/18/2010 ARLENE LEMA APRN 724.5 BACK PAIN, GENERAL 03/18/2010 TAN SUGGS MARC A 300.00 ANXIETY UNSPEC 03/18/2010 TAN SUGGS MARC A 305.1 NONDEPENDENT TOBACCO USE DISORDER 03/18/2010 TAN SUGGS MARC A 473.9 Sinusitis (chronic) 03/18/2010 TAN PERCUSSION INSTRUMENT REPAIRER, MARC A 724.5 BACK PAIN, GENERAL 03/18/2010 MADL PERCUSSION INSTRUMENT REPAIRER, BRITANY L 300.00 ANXIETY UNSPEC 03/18/2010 MADL PERCUSSION INSTRUMENT REPAIRER, BRITANY L 305.1 NONDEPENDENT TOBACCO USE DISORDER 03/18/2010 MADL PERCUSSION INSTRUMENT REPAIRER, BRITANY L 473.9 Sinusitis (chronic) 03/18/2010 [facility] PERCUSSION INSTRUMENT REPAIRER, BRITANY L 724.5 BACK PAIN, GENERAL 03/18/2010 [facility] PERCUSSION INSTRUMENT REPAIRER, BRITANY L 300.00 ANXIETY UNSPEC 03/18/2010 [facility] PERCUSSION INSTRUMENT REPAIRER, BRITANY L 305.1 NONDEPENDENT TOBACCO USE DISORDER 03/18/2010 [facility] PERCUSSION INSTRUMENT REPAIRER, BRITANY L 473.9 Sinusitis (chronic) 03/18/2010 [facility] PERCUSSION INSTRUMENT REPAIRER, BRITANY L 724.5 BACK PAIN, GENERAL 03/18/2010 [facility], ERICKA K 300.00 ANXIETY UNSPEC 03/18/2010 [facility], ERICKA K 305.1 NONDEPENDENT TOBACCO USE DISORDER 03/18/2010 [facility], ERICKA K 473.9 Sinusitis (chronic) 03/18/2010 [facility], ERICKA K 724.5 BACK PAIN, GENERAL 03/18/2010 [facility] PERCUSSION INSTRUMENT REPAIRER, BRITANY L 300.00 ANXIETY UNSPEC 03/18/2010 [facility] PERCUSSION INSTRUMENT REPAIRER, BRITANY L 305.1 NONDEPENDENT TOBACCO USE DISORDER 03/18/2010 [facility] PERCUSSION INSTRUMENT REPAIRER, BRITANY L 473.9 Sinusitis (chronic) 03/18/2010 [facility] PERCUSSION INSTRUMENT REPAIRER, BRITANY L 724.5 BACK PAIN, GENERAL 03/18/2010 300.00 ANXIETY UNSPEC 03/18/2010 305.1 NONDEPENDENT TOBACCO USE DISORDER 03/18/2010 473.9 Sinusitis (chronic) 03/18/2010 724.5 BACK PAIN, GENERAL 03/18/2010 [facility], ERICK R 300.00 ANXIETY UNSPEC 03/18/2010 [facility], ERICK R 305.1 NONDEPENDENT TOBACCO USE DISORDER 03/18/2010 [facility], ERICK R 473.9 Sinusitis (chronic) 03/18/2010 [facility], ERICK R 724.5 BACK PAIN, GENERAL 03/18/2010 [facility] PERCUSSION INSTRUMENT REPAIRER, BRITANY L 300.00 ANXIETY UNSPEC 03/18/2010 [facility] PERCUSSION INSTRUMENT REPAIRER, BRITANY L 305.1 NONDEPENDENT TOBACCO USE DISORDER 03/18/2010 MADL PERCUSSION INSTRUMENT REPAIRER, BRITANY L 473.9 Sinusitis (chronic) 03/18/2010 MADL PERCUSSION INSTRUMENT REPAIRER, BRITANY L 724.5 BACK PAIN, GENERAL 03/18/2010 HULL DO, ERICKA K 300.00 ANXIETY UNSPEC 03/18/2010 HULL DO, ERICKA K 305.1 NONDEPENDENT TOBACCO USE DISORDER 03/18/2010 HULL DO, ERICKA K 473.9 Sinusitis (chronic) 03/18/2010 HULL DO, ERICKA K 724.5 BACK PAIN, GENERAL 03/18/2010 MADL PERCUSSION INSTRUMENT REPAIRER, BRITANY L 300.00 ANXIETY UNSPEC 03/18/2010 MADL PERCUSSION INSTRUMENT REPAIRER, BRITANY L 305.1 NONDEPENDENT TOBACCO USE DISORDER 03/18/2010 MADL PERCUSSION INSTRUMENT REPAIRER, BRITANY L 473.9 Sinusitis (chronic) 03/18/2010 MADL PERCUSSION INSTRUMENT REPAIRER, BRITANY L 724.5 BACK PAIN, GENERAL 03/18/2010 MADL PERCUSSION INSTRUMENT REPAIRER, BRITANY L 300.00 ANXIETY UNSPEC 03/18/2010 MADL PERCUSSION INSTRUMENT REPAIRER, BRITANY L 305.1 NONDEPENDENT TOBACCO USE DISORDER 03/18/2010 MADL PERCUSSION INSTRUMENT REPAIRER, BRITANY L 473.9 Sinusitis (chronic) 03/18/2010 MADL PERCUSSION INSTRUMENT REPAIRER, BRITANY L 724.5 BACK PAIN, GENERAL 03/18/2010 MADL PERCUSSION INSTRUMENT REPAIRER, BRITANY L 300.00 ANXIETY UNSPEC 03/18/2010 MADL PERCUSSION INSTRUMENT REPAIRER, BRITANY L 305.1 NONDEPENDENT TOBACCO USE DISORDER 03/18/2010 MADL PERCUSSION INSTRUMENT REPAIRER, BRITANY L 473.9 Sinusitis (chronic) 03/18/2010 MADL PERCUSSION INSTRUMENT REPAIRER, BRITANY L 724.5 BACK PAIN, GENERAL 03/18/2010 TIFFANI ROSA 300.00 ANXIETY UNSPEC 03/18/2010 TIFFANI ROSA M 305.1 NONDEPENDENT TOBACCO USE DISORDER 03/18/2010 TIFFANI ROSA M 473.9 Sinusitis (chronic) 03/18/2010 TIFFANI ROSA M 724.5 BACK PAIN, GENERAL 03/18/2010 MADL PERCUSSION INSTRUMENT REPAIRER, BRITANY L 300.00 ANXIETY UNSPEC 03/18/2010 MADL PERCUSSION INSTRUMENT REPAIRER, BRITANY L 305.1 NONDEPENDENT TOBACCO USE DISORDER 03/18/2010 MADL PERCUSSION INSTRUMENT REPAIRER, BRITANY L 473.9 Sinusitis (chronic) 03/18/2010 MADL PERCUSSION INSTRUMENT REPAIRER, BRITANY L 724.5 BACK PAIN, GENERAL 03/18/2010 MADL PERCUSSION INSTRUMENT REPAIRER, BRITANY L 300.00 ANXIETY UNSPEC 03/18/2010 MADL PERCUSSION INSTRUMENT REPAIRER, BRITANY L 305.1 NONDEPENDENT TOBACCO USE DISORDER 03/18/2010 MADL PERCUSSION INSTRUMENT REPAIRER, BRITANY L 473.9 Sinusitis (chronic) 03/18/2010 MADL PERCUSSION INSTRUMENT REPAIRER, BRITANY L 724.5 BACK PAIN, GENERAL 05/02/2010 [...] ARLENE LEMA APRN 461.9 Sinusitis Acute 05/02/2010 MARC MADDOX APRN A 461.9 Sinusitis Acute 05/02/2010 MADL PERCUSSION INSTRUMENT REPAIRER, BRITANY L 461.9 Sinusitis Acute 05/02/2010 MADL PERCUSSION INSTRUMENT REPAIRER, BRITANY L 461.9 Sinusitis Acute 05/02/2010 HULL DO, ERICKA K 461.9 Sinusitis Acute 05/02/2010 MADL PERCUSSION INSTRUMENT REPAIRER, BRITANY L 461.9 Sinusitis Acute 05/02/2010 461.9 Sinusitis Acute 05/02/2010 [facility]HAIRA [facility], ERICK R 461.9 Sinusitis Acute 05/02/2010 MADL PERCUSSION INSTRUMENT REPAIRER, BRITANY L 461.9 Sinusitis Acute 05/02/2010 HULL DO, ERICKA K 461.9 Sinusitis Acute 05/02/2010 MADL PERCUSSION INSTRUMENT REPAIRER, BRITANY L 461.9 Sinusitis Acute 05/02/2010 MADL PERCUSSION INSTRUMENT REPAIRER, BRITANY L 461.9 Sinusitis Acute 05/02/2010 MADL PERCUSSION INSTRUMENT REPAIRER, BRITANY L 461.9 Sinusitis Acute 05/02/2010 TIFFANI ROSA 461.9 Sinusitis Acute 05/02/2010 MADL PERCUSSION INSTRUMENT REPAIRER, BRITANY L 461.9 Sinusitis Acute 05/02/2010 MADL PERCUSSION INSTRUMENT REPAIRER, BRITANY L 461.9 Sinusitis Acute 06/30/2010 IVET [...] Pain In Limb 06/30/2010 NAY PALOMO APRN S 724.2 LUMBAGO 06/30/2010 NAY PALOMO APRN S 729.5 Pain In Limb 06/30/2010 724.2 LUMBAGO [...] D 724.2 LUMBAGO 06/30/2010 ARLENE LEMA APRN 729.5 Pain In Limb 06/30/2010 MARC MADDOX APRN A 724.2 LUMBAGO 06/30/2010 TANRAMONA SUGGS MARC A 729.5 Pain In Limb 06/30/2010 DANITZA SUGGS BRITANY L 724.2 LUMBAGO 06/30/2010 MADNas SUGGS, BRITANY L 729.5 Pain In Limb 06/30/2010 MADL ES, BRITANY L 724.2 LUMBAGO 06/30/2010 MADL ES, BRITANY L 729.5 Pain In Limb 06/30/2010 HULL DO, ERICKA K 724.2 LUMBAGO 06/30/2010 HULL DO, ERICKA K 729.5 Pain In Limb 06/30/2010 MADL PERCUSSION INSTRUMENT REPAIRER, BRITANY L 724.2 LUMBAGO 06/30/2010 MADL PERCUSSION INSTRUMENT REPAIRER, BRITANY L 729.5 Pain In Limb 06/30/2010 724.2 LUMBAGO 06/30/2010 729.5 Pain In Limb 06/30/2010 YAHAIRA [facility], ERICK R 724.2 LUMBAGO 06/30/2010 YAHAIRA LSCS, ERICK R 729.5 Pain In Limb 06/30/2010 MADL PERCUSSION INSTRUMENT REPAIRER, BRITANY L 724.2 LUMBAGO 06/30/2010 MADL PERCUSSION INSTRUMENT REPAIRER, BRITANY L 729.5 Pain In Limb 06/30/2010 HULL DO, ERICKA K 724.2 LUMBAGO 06/30/2010 HULL DO, ERICKA K 729.5 Pain In Limb 06/30/2010 MADL PERCUSSION INSTRUMENT REPAIRER, BRITANY L 724.2 LUMBAGO 06/30/2010 MADL PERCUSSION INSTRUMENT REPAIRER, BRITANY L 729.5 Pain In Limb 06/30/2010 MADL PERCUSSION INSTRUMENT REPAIRER, BRITANY L 724.2 LUMBAGO 06/30/2010 MADL PERCUSSION INSTRUMENT REPAIRER, BRITANY L 729.5 Pain In Limb 06/30/2010 MADL PERCUSSION INSTRUMENT REPAIRER, BRITANY L 724.2 LUMBAGO 06/30/2010 MADL PERCUSSION INSTRUMENT REPAIRER, BRITANY L 729.5 Pain In Limb 06/30/2010 TIFFANI ROSA 724.2 LUMBAGO 06/30/2010 TIFFANI ROSA 729.5 Pain In Limb 06/30/2010 MADL PERCUSSION INSTRUMENT REPAIRER, BRITANY L 724.2 LUMBAGO 06/30/2010 MADL PERCUSSION INSTRUMENT REPAIRER, BRITANY L 729.5 Pain In Limb 06/30/2010 MADL PERCUSSION INSTRUMENT REPAIRER, BRITANY L 724.2 LUMBAGO 06/30/2010 MADL PERCUSSION INSTRUMENT REPAIRER, BRITANY L 729.5 Pain In Limb 07/20/2010 [...] BRITANY L 728.85 Spasm Of Muscle 07/20/2010 DANITZA SUGGS BRITANY L 728.85 Spasm Of Muscle 07/20/2010 ERICKA HULL DO 728.85 Spasm Of Muscle 07/20/2010 MADL PERCUSSION INSTRUMENT REPAIRER, BRITANY L 728.85 Spasm Of Muscle 07/20/2010 728.85 Spasm Of Muscle 07/20/2010 YAHAIRA ERICK PECK 728.85 Spasm Of Muscle 07/20/2010 MADL PERCUSSION INSTRUMENT REPAIRER BRITANY L 728.85 Spasm Of Muscle 07/20/2010 ERICKA HULL DO 728.85 Spasm Of Muscle 07/20/2010 MADL PERCUSSION INSTRUMENT REPAIRER, BRITANY L 728.85 Spasm Of Muscle 07/20/2010 MADL PERCUSSION INSTRUMENT REPAIRER, BRITANY L 728.85 Spasm Of Muscle 07/20/2010 BRITANY BOSCH APRN L 728.85 Spasm Of Muscle 07/20/2010 TIFFANI ROSA 728.85 Spasm Of Muscle 07/20/2010 BRITANY BOSCH APRN L 728.85 Spasm Of Muscle 07/20/2010 MADL BRITANY SUGGS L 728.85 Spasm Of Muscle 11/15/2010 IVET BARGER DO 110.1 Onychomycosis 11/15/2010 IVET BARGER DO 703.0 Nail Ingrown 11/15/2010 ARLENE LEMA APRN 110.1 Onychomycosis 11/15/2010 ARLENE LEMA APRN 703.0 Nail Ingrown 11/15/2010 110.1 Onychomycosis 11/15/2010 703.0 Nail Ingrown 11/15/2010 ARLENE LEMA APRN 110.1 Onychomycosis 11/15/2010 ARLENE LEMA APRN 703.0 Nail Ingrown 11/15/2010 IVET BARGER DO 110.1 Onychomycosis 11/15/2010 IVET BARGER DO F 703.0 Nail Ingrown 11/15/2010 NAY PALOMO APRN S 110.1 Onychomycosis 11/15/2010 NAY PALOMO APRN 703.0 Nail Ingrown 11/15/2010 110.1 Onychomycosis 11/15/2010 703.0 Nail Ingrown 11/15/2010 110.1 Onychomycosis 11/15/2010 703.0 Nail Ingrown 11/15/2010 110.1 Onychomycosis 11/15/2010 703.0 Nail Ingrown 11/15/2010 110.1 Onychomycosis 11/15/2010 703.0 Nail Ingrown 11/15/2010 110.1 Onychomycosis 11/15/2010 703.0 Nail Ingrown 11/15/2010 110.1 Onychomycosis 11/15/2010 703.0 Nail Ingrown 11/15/2010 ARLENE LEMA APRN 110.1 Onychomycosis 11/15/2010 GARTON PERCUSSION INSTRUMENT REPAIRER, ARLENE D 703.0 Nail Ingrown 11/15/2010 GARTON PERCUSSION INSTRUMENT REPAIRER, ARLENE D 110.1 Onychomycosis 11/15/2010 GARTON PERCUSSION INSTRUMENT REPAIRER, ARLENE D 703.0 Nail Ingrown 11/15/2010 GARTON PERCUSSION INSTRUMENT REPAIRER, ARLENE D 110.1 Onychomycosis 11/15/2010 GARTON PERCUSSION INSTRUMENT REPAIRER, ARLENE D 703.0 Nail Ingrown 11/15/2010 [facility] PERCUSSION INSTRUMENT REPAIRER, ARLENE D 110.1 Onychomycosis 11/15/2010 GARTON PERCUSSION INSTRUMENT REPAIRER, ARLENE D 703.0 Nail Ingrown 11/15/2010 [facility] PERCUSSION INSTRUMENT REPAIRER, ARLENE D 110.1 Onychomycosis 11/15/2010 [place] PERCUSSION INSTRUMENT REPAIRER, ARLENE D 703.0 Nail Ingrown 11/15/2010 TAN PERCUSSION INSTRUMENT REPAIRER, MARC A 110.1 Onychomycosis 11/15/2010 TAN PERCUSSION INSTRUMENT REPAIRER, MARC A 703.0 Nail Ingrown 11/15/2010 MADL PERCUSSION INSTRUMENT REPAIRER, BRITANY L 110.1 Onychomycosis 11/15/2010 MADL PERCUSSION INSTRUMENT REPAIRER, BRITANY L 703.0 Nail Ingrown 11/15/2010 MADL PERCUSSION INSTRUMENT REPAIRER, BRITANY L 110.1 Onychomycosis 11/15/2010 MADL PERCUSSION INSTRUMENT REPAIRER, BRITANY L 703.0 Nail Ingrown 11/15/2010 HULL DO, ERICKA K 110.1 Onychomycosis 11/15/2010 HULL DO, ERICKA K 703.0 Nail Ingrown 11/15/2010 MADL PERCUSSION INSTRUMENT REPAIRER, BRITANY L 110.1 Onychomycosis 11/15/2010 MADL PERCUSSION INSTRUMENT REPAIRER, BRITANY L 703.0 Nail Ingrown 11/15/2010 110.1 Onychomycosis 11/15/2010 703.0 Nail Ingrown 11/15/2010 [facility] 11/15/2010 [facility] 703.[facility] Nail Ingrown 11/15/2010 MADL PERCUSSION INSTRUMENT REPAIRER, BRITANY L 110.1 Onychomycosis 11/15/2010 [facility] PER[facility] INSTRUMENT REPAIR[facility], BRITANY L 703.0 Nail Ingrown 11/15/2010 HULL DO, ERICKA K 110.1 Onychomycosis 11/15/2010 HULL DO, ERICKA K 703.0 Nail Ingrown 11/15/2010 MADL PERCUSSION INSTRUMENT REPAIRER, BRITANY L 110.1 Onychomycosis 11/15/2010 MADL PERCUSSION INSTRUMENT REPAIRER, BRITANY L 703.0 Nail Ingrown 11/15/2010 MADL PERCUSSION INSTRUMENT REPAIRER, BRITANY L 110.1 Onychomycosis 11/15/2010 MADL PERCUSSION INSTRUMENT REPAIRER, BRITANY L 703.0 Nail Ingrown 11/15/2010 MADL PERCUSSION INSTRUMENT REPAIRER, BRITANY L 110.1 Onychomycosis 11/15/2010 MADL PERCUSSION INSTRUMENT REPAIRER, BRITANY L 703.0 Nail Ingrown 11/15/2010 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, TIFFANI M 110.1 Onychomycosis 11/15/2010 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, TIFFANI M 703.0 Nail Ingrown 11/15/2010 MADL PERCUSSION INSTRUMENT REPAIRER, BRITANY L 110.1 Onychomycosis 11/15/2010 MADL PERCUSSION INSTRUMENT REPAIRER, BRITANY L 703.0 Nail Ingrown 11/15/2010 MADL PERCUSSION INSTRUMENT REPAIRER, BRITANY L 110.1 Onychomycosis 11/15/2010 MADL PERCUSSION INSTRUMENT REPAIRER, BRITANY L 703.0 Nail Ingrown 01/02/2011 IVET [...] Abscess Of Leg Except Foot 01/02/2011 STACIA PERCUSSION INSTRUMENT REPAIRER, NAY S 041.12 MRSA, METHICILLIN RESISTANT 01/02/2011 STACIA PERCUSSION INSTRUMENT REPAIRER, NAY S 682.6 Cellulitis And Abscess Of [...] Abscess Of Leg Except Foot 01/02/2011 GARTON PERCUSSION INSTRUMENT REPAIRER, ARLENE D 041.12 MRSA, METHICILLIN RESISTANT 01/02/2011 GARTON PERCUSSION INSTRUMENT REPAIRER, ARLENE D 682.6 Cellulitis And Abscess Of Leg Except Foot 01/02/2011 GARTON PERCUSSION INSTRUMENT REPAIRER, ARLENE D 041.12 MRSA, METHICILLIN RESISTANT 01/02/2011 GARTON PERCUSSION INSTRUMENT REPAIRER, ARLENE D 682.6 Cellulitis And Abscess Of Leg Except Foot 01/02/2011 GARTON PERCUSSION INSTRUMENT REPAIRER, ARLENE D 041.12 MRSA, METHICILLIN RESISTANT 01/02/2011 GARTON PERCUSSION INSTRUMENT REPAIRER, ARLENE D 682.6 Cellulitis And Abscess Of Leg Except Foot 01/02/2011 GARTON PERCUSSION INSTRUMENT REPAIRER, ARLENE D 041.12 MRSA, METHICILLIN RESISTANT 01/02/2011 GARTON PERCUSSION INSTRUMENT REPAIRER, ARLENE D 682.6 Cellulitis And Abscess Of Leg Except Foot 01/02/2011 GARTON PERCUSSION INSTRUMENT REPAIRER, ARLENE D 041.12 MRSA, METHICILLIN RESISTANT 01/02/2011 GARTON PERCUSSION INSTRUMENT REPAIRER, ARLENE D 682.6 Cellulitis And Abscess Of Leg Except Foot 01/02/2011 MARC MADDOX APRN A 041.12 MRSA, METHICILLIN RESISTANT 01/02/2011 TAN PERCUSSION INSTRUMENT REPAIRER, MARC A 682.6 Cellulitis And Abscess Of Leg Except Foot 01/02/2011 MADL PERCUSSION INSTRUMENT REPAIRER, BRITANY L 041.12 MRSA, METHICILLIN RESISTANT 01/02/2011 MADL PERCUSSION INSTRUMENT REPAIRER, BRITANY L 682.6 Cellulitis And Abscess Of Leg Except Foot 01/02/2011 MADL PERCUSSION INSTRUMENT REPAIRER, BRITANY L 041.12 MRSA, METHICILLIN RESISTANT 01/02/2011 MADL PERCUSSION INSTRUMENT REPAIRER, BRITANY L 682.6 Cellulitis And Abscess Of Leg Except Foot 01/02/2011 HLUL DO, ERICKA K 041.12 MRSA, METHICILLIN RESISTANT 01/02/2011 HULL DO, REICKA K 682.6 Cellulitis And Abscess Of Leg Except Foot 01/02/2011 MADL PERCUSSION INSTRUMENT REPAIRER, BRITANY L 041.12 MRSA, METHICILLIN RESISTANT 01/02/2011 MADL PERCUSSION INSTRUMENT REPAIRER, BRITANY L 682.6 Cellulitis And Abscess Of Leg Except Foot 01/02/2011 041.12 MRSA, METHICILLIN RESISTANT 01/02/2011 682.6 Cellulitis And Abscess Of Leg Except Foot 01/02/2011 [facility], ERICK R 041.12 MRSA, METHICILLIN RESISTANT 01/02/2011 YAHAIRA CS, ERICK R 682.6 Cellulitis And Abscess Of Leg Except Foot 01/02/2011 MADL PERCUSSION INSTRUMENT REPAIRER, BRITANY L 041.12 MRSA, METHICILLIN RESISTANT 01/02/2011 MADL PERCUSSION INSTRUMENT REPAIRER, BRITANY L 682.6 Cellulitis And Abscess Of Leg Except Foot 01/02/2011 HULL DO, ERICKA K 041.12 MRSA, METHICILLIN RESISTANT 01/02/2011 HULL DO, ERICKA K 682.6 Cellulitis And Abscess Of Leg Except Foot 01/02/2011 MADL PERCUSSION INSTRUMENT REPAIRER, BRITANY L 041.12 MRSA, METHICILLIN RESISTANT 01/02/2011 MADL PERCUSSION INSTRUMENT REPAIRER, BRITANY L 682.6 Cellulitis And Abscess Of Leg Except Foot 01/02/2011 MADL PERCUSSION INSTRUMENT REPAIRER, BRITANY L 041.12 MRSA, METHICILLIN RESISTANT 01/02/2011 MADL PERCUSSION INSTRUMENT REPAIRER, BRITANY L 682.6 Cellulitis And Abscess Of Leg Except Foot 01/02/2011 MADL PERCUSSION INSTRUMENT REPAIRER, BRITANY L 041.12 MRSA, METHICILLIN RESISTANT 01/02/2011 MADL PERCUSSION INSTRUMENT REPAIRER, BRITANY L 682.6 Cellulitis And Abscess Of Leg Except Foot 01/02/2011 TIFFANI ROSA M 041.12 MRSA, METHICILLIN RESISTANT 01/02/2011 RACHAEL BAEZ, TIFFANI M 682.6 Cellulitis And Abscess Of Leg Except Foot 01/02/2011 MADL PERCUSSION INSTRUMENT REPAIRER, BRITANY L 041.12 MRSA, METHICILLIN RESISTANT 01/02/2011 MADL PERCUSSION INSTRUMENT REPAIRER, BRITANY L 682.6 Cellulitis And Abscess Of Leg Except Foot 01/02/2011 MADL PERCUSSION INSTRUMENT REPAIRER, BRITANY L 041.12 MRSA, METHICILLIN RESISTANT 01/02/2011 MADL PERCUSSION INSTRUMENT REPAIRER, BRITANY L 682.6 Cellulitis And Abscess Of Leg Except Foot 02/02/2011 IVET BARGER DO 296.89 MO BIPOLAR II 02/02/2011 IVET BARGER DO 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 02/02/2011 ARLENE LEMA APRN 296.89 MO BIPOLAR II 02/02/2011 ARLENE LEMA APRN 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 02/02/2011 296.89 MO BIPOLAR II 02/02/2011 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 02/02/2011 ARLNEE LEMA APRN 296.89 MO BIPOLAR II 02/02/2011 [...] AN GEN ANXIETY 02/02/2011 ARLENE LEMA APRN D 296.89 MO BIPOLAR II 02/02/2011 ARLENE LEMA APRN 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 02/02/2011 ARLENE LEMA APRN D 296.89 MO BIPOLAR II 02/02/2011 ARLENE LEMA APRN 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 02/02/2011 ARLENE LEMA APRN 296.89 MO BIPOLAR II 02/02/2011 ARLENE LEMA APRN 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 02/02/2011 ARLENE LEMA APRN D 296.89 MO BIPOLAR II 02/02/2011 ARLENE LEMA APRN 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 02/02/2011 ARLENE LEMA APRN D 296.89 MO BIPOLAR II 02/02/2011 ARLENE LEMA APRN D 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 02/02/2011 MARC MADDOX APRN A 296.89 MO BIPOLAR II 02/02/2011 MARC MADDOX APRN A 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 02/02/2011 RENÉL ES, BRITANY L 296.89 MO BIPOLAR II 02/02/2011 DANITZA SUGGS, BRITANY L 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 02/02/2011 RENÉL ES, BRITANY L 296.89 MO BIPOLAR II 02/02/2011 DANITZA SUGGS, BRITANY L 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 02/02/2011 ROCIO HULL DOA K 296.89 MO BIPOLAR II 02/02/2011 HULL DOROCIOA K 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 02/02/2011 MADL PERCUSSION INSTRUMENT REPAIRER, BRITANY L 296.89 MO BIPOLAR II 02/02/2011 MADL PERCUSSION INSTRUMENT REPAIRER, BRITANY L 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 02/02/2011 296.89 MO BIPOLAR II 02/02/2011 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 02/02/2011 [facility] 296.89 MO BIPOLAR II 02/02/2011 [facility] 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 02/02/2011 MADL PERCUSSION INSTRUMENT REPAIRER, BRITANY L 296.89 MO BIPOLAR II 02/02/2011 MADL PERCUSSION INSTRUMENT REPAIRER, BRITANY L 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 02/02/2011 HULL DO, ERICKA K 296.89 MO BIPOLAR II 02/02/2011 HULL DO, ERICKA K 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 02/02/2011 MADL PERCUSSION INSTRUMENT REPAIRER, BRITANY L 296.89 MO BIPOLAR II 02/02/2011 MADL PERCUSSION INSTRUMENT REPAIRER, BRITANY L 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 02/02/2011 MADL PERCUSSION INSTRUMENT REPAIRER, BRITANY L 296.89 MO BIPOLAR II 02/02/2011 MADL PERCUSSION INSTRUMENT REPAIRER, BRITANY L 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 02/02/2011 MADL PERCUSSION INSTRUMENT REPAIRER, BRITANY L 296.89 MO BIPOLAR II 02/02/2011 MADL PERCUSSION INSTRUMENT REPAIRER, BRITANY L 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 02/02/2011 RACHAEL BAEZ, TIFFANI M 296.89 MO BIPOLAR II 02/02/2011 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, TIFFANI M 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 02/02/2011 MADL PERCUSSION INSTRUMENT REPAIRER, BRITANY L 296.89 MO BIPOLAR II 02/02/2011 MADL PERCUSSION INSTRUMENT REPAIRER, BRITANY L 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 02/02/2011 MADL PERCUSSION INSTRUMENT REPAIRER, BRITANY L 296.89 MO BIPOLAR II 02/02/2011 MADL PERCUSSION INSTRUMENT REPAIRER, BRITANY L 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 03/06/2011 IVET BARGER DO F 530.81 Gerd 03/06/2011 IVET BARGER DO F 536.8 Dyspepsia 03/06/2011 IVET BARGER DO F 783.1 Weight Gain Abnormal 03/06/2011 ARLENE LEMA APRN 530.81 Gerd 03/06/2011 ARLENE LEMA APRN 536.8 Dyspepsia 03/06/2011 ARLENE LEMA APRN 783.1 Weight Gain Abnormal 03/06/2011 530.81 Gerd 03/06/2011 536.8 Dyspepsia 03/06/2011 783.1 Weight Gain Abnormal 03/06/2011 ARLENE LEMA APRN 530.81 Gerd 03/06/2011 ARLENE LEMA APRN 536.8 Dyspepsia 03/06/2011 ARLENE LEMA APRN 783.1 Weight Gain Abnormal 03/06/2011 DENITA DO, IVET F 530.81 Gerd 03/06/2011 DENITA WALTERS, IVET F 536.8 Dyspepsia 03/06/2011 DENITA DO, IVET F 783.1 Weight Gain Abnormal 03/06/2011 CHANTALE PALOMO APRNA S 530.81 Gerd 03/06/2011 CHANTALE PALOMO APRNA S 536.8 Dyspepsia 03/06/2011 NICKI PALOMO APRNNDA [...] Weight Gain Abnormal 03/06/2011 ARLENE LEMA APRN D 530.81 Gerd 03/06/2011 ARLENE LEMA APRN D 536.8 Dyspepsia 03/06/2011 ARLENE LEMA APRN D 783.1 Weight Gain Abnormal 03/06/2011 ARLENE LEMA APRN D 530.81 Gerd 03/06/2011 ARLENE LEMA APRN 536.8 Dyspepsia 03/06/2011 ARLENE LEMA APRN 783.1 Weight Gain Abnormal 03/06/2011 ARLENE LEMA APRN 530.81 Gerd 03/06/2011 RAINAARLENE NUNES APRN 536.8 Dyspepsia 03/06/2011 PITA ARLENE SUGGS 783.1 Weight Gain Abnormal 03/06/2011 ARLENE LEMA APRN 530.81 Gerd 03/06/2011 RAINAARLENE NUNES APRN 536.8 Dyspepsia 03/06/2011 PITA ARLENE SUGGS 783.1 Weight Gain Abnormal 03/06/2011 TAN PERCUSSION INSTRUMENT REPAIRER, MARC A 530.81 Gerd 03/06/2011 TAN PERCUSSION INSTRUMENT REPAIRER, MARC A 536.8 Dyspepsia 03/06/2011 TAN PERCUSSION INSTRUMENT REPAIRER, MARC A 783.1 Weight Gain Abnormal 03/06/2011 MADL PERCUSSION INSTRUMENT REPAIRER, BRITANY L 530.81 Gerd 03/06/2011 MADL PERCUSSION INSTRUMENT REPAIRER, BRITANY L 536.8 Dyspepsia 03/06/2011 RENÉL PERCUSSION INSTRUMENT REPAIRER, BRITANY L 783.1 Weight Gain Abnormal 03/06/2011 MADL PERCUSSION INSTRUMENT REPAIRER, BRITANY L 530.81 Gerd 03/06/2011 MADL PERCUSSION INSTRUMENT REPAIRER, BRITANY L 536.8 Dyspepsia 03/06/2011 MADL PERCUSSION INSTRUMENT REPAIRER, BRITANY L 783.1 Weight Gain Abnormal 03/06/2011 HULL DO, ERICKA K 530.81 Gerd 03/06/2011 HULL DO, ERICKA K 536.8 Dyspepsia 03/06/2011 HULL DO, ERICKA K 783.1 Weight Gain Abnormal 03/06/2011 MADL PERCUSSION INSTRUMENT REPAIRER, BRITANY L 530.81 Gerd 03/06/2011 MADL PERCUSSION INSTRUMENT REPAIRER, BRITANY L 536.8 Dyspepsia 03/06/2011 MADL PERCUSSION INSTRUMENT REPAIRER, BRITANY L 783.1 Weight Gain Abnormal 03/06/2011 530.81 Gerd 03/06/2011 536.8 Dyspepsia 03/06/2011 783.1 Weight Gain Abnormal 03/06/2011 [facility] Gerd 03/06/2011 Y[facility], ERICK R 536.8 Dyspepsia 03/06/2011 [facility], ERICK R 783.1 Weight Gain Abnormal 03/06/2011 MADL PERCUSSION INSTRUMENT REPAIRER, BRITANY L 530.81 Gerd 03/06/2011 MADL PERCUSSION INSTRUMENT REPAIRER, BRITANY L 536.8 Dyspepsia 03/06/2011 MADL PERCUSSION INSTRUMENT REPAIRER, BRITANY L 783.1 Weight Gain Abnormal 03/06/2011 HULL DO, ERICKA K 530.81 Gerd 03/06/2011 HULL DO, ERICKA K 536.8 Dyspepsia 03/06/2011 HULL DO, ERICKA K 783.1 Weight Gain Abnormal 03/06/2011 MADL PERCUSSION INSTRUMENT REPAIRER, BRITANY L 530.81 Gerd 03/06/2011 MADL PERCUSSION INSTRUMENT REPAIRER, BRITANY L 536.8 Dyspepsia 03/06/2011 MADL PERCUSSION INSTRUMENT REPAIRER, BRITANY L 783.1 Weight Gain Abnormal 03/06/2011 MADL PERCUSSION INSTRUMENT REPAIRER, BRITANY L 530.81 Gerd 03/06/2011 MADL PERCUSSION INSTRUMENT REPAIRER, BRITANY L 536.8 Dyspepsia 03/06/2011 MADL PERCUSSION INSTRUMENT REPAIRER, BRITANY L 783.1 Weight Gain Abnormal 03/06/2011 MADL PERCUSSION INSTRUMENT REPAIRER, BRITANY L 530.81 Gerd 03/06/2011 MADL PERCUSSION INSTRUMENT REPAIRER, BRITANY L 536.8 Dyspepsia 03/06/2011 MADL PERCUSSION INSTRUMENT REPAIRER, BRITANY L 783.1 Weight Gain Abnormal 03/06/2011 RACHAEL BAEZ, TIFFANI M 530.81 Gerd 03/06/2011 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, TIFFANI M 536.8 Dyspepsia 03/06/2011 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, TIFFANI M 783.1 Weight Gain Abnormal 03/06/2011 MADL PERCUSSION INSTRUMENT REPAIRER, BRITANY L 530.81 Gerd 03/06/2011 MADL PERCUSSION INSTRUMENT REPAIRER, BRITANY L 536.8 Dyspepsia 03/06/2011 MADL PERCUSSION INSTRUMENT REPAIRER, BRITANY L 783.1 Weight Gain Abnormal 03/06/2011 MADL PERCUSSION INSTRUMENT REPAIRER, BRITANY L 530.81 Gerd 03/06/2011 MADL PERCUSSION INSTRUMENT REPAIRER, BRITANY L 536.8 Dyspepsia 03/06/2011 MADL PERCUSSION INSTRUMENT REPAIRER, BRITANY L 783.1 Weight Gain Abnormal 03/08/2011 DENITA WALTERS IVET F 780.57 Sleep Apnea 03/08/2011 ARLENE LEMA APRN 780.57 Sleep Apnea 03/08/2011 780.57 Sleep Apnea 03/08/2011 ARLENE LEMA APRN 780.57 Sleep Apnea 03/08/2011 EMERYSIDNEY IVET F 780.57 Sleep Apnea 03/08/2011 NAY PALOMO APRN [...] MADDOX APRN 780.57 Sleep Apnea 03/08/2011 DANITZA PERCUSSION INSTRUMENT REPAIRER, BRITANY L 780.57 Sleep Apnea 03/08/2011 RENÉL PERCUSSION INSTRUMENT REPAIRER, BRITANY L 780.57 Sleep Apnea 03/08/2011 ERICKA HULL DO 780.57 Sleep Apnea 03/08/2011 MADL PERCUSSION INSTRUMENT REPAIRER, BRITANY L 780.57 Sleep Apnea 03/08/2011 780.57 Sleep Apnea 03/08/2011 YAHAIRA [facility], ERICK Silver 780.57 Sleep Apnea 03/08/2011 MADL PERCUSSION INSTRUMENT REPAIRER, BRITANY L 780.57 Sleep Apnea 03/08/2011 ERICKA HULL DO 780.57 Sleep Apnea 03/08/2011 MADL PERCUSSION INSTRUMENT REPAIRER, BRITANY L 780.57 Sleep Apnea 03/08/2011 MADL PERCUSSION INSTRUMENT REPAIRER, BRITANY L 780.57 Sleep Apnea 03/08/2011 MADL PERCUSSION INSTRUMENT REPAIRER, BRITANY L 780.57 Sleep Apnea 03/08/2011 TIFFANI ROSA M 780.57 Sleep Apnea 03/08/2011 MADL PERCUSSION INSTRUMENT REPAIRER, BRITANY L 780.57 Sleep Apnea 03/08/2011 MADL PERCUSSION INSTRUMENT REPAIRER, BRITANY L 780.57 Sleep Apnea 04/03/2011 IVET [...] DX (3 YRS AND ABOVE, IM) 04/03/2011 ANY PALOMO APRN V04.81 FLU DX (3 YRS [...] (3 YRS AND ABOVE, IM) 04/03/2011 MADL PERCUSSION INSTRUMENT REPAIRER, BRITANY L V04.81 FLU DX (3 YRS AND ABOVE, IM) 04/03/2011 MADL PERCUSSION INSTRUMENT REPAIRER, BRITANY L V04.81 FLU DX (3 YRS AND ABOVE, IM) 04/03/2011 HULL DO, ERICKA K V04.81 FLU DX (3 YRS AND ABOVE, IM) 04/03/2011 MADL PERCUSSION INSTRUMENT REPAIRER, BRITANY L V04.81 FLU DX (3 YRS AND ABOVE, IM) 04/03/2011 V04.81 FLU DX (3 YRS AND ABOVE, IM) 04/03/2011 YAHAIRA [facility], ERICK R V04.81 FLU DX (3 YRS AND ABOVE, IM) 04/03/2011 MADL PERCUSSION INSTRUMENT REPAIRER, BRITANY L V04.81 FLU DX (3 YRS AND ABOVE, IM) 04/03/2011 HULL DO, ERICKA K V04.81 FLU DX (3 YRS AND ABOVE, IM) 04/03/2011 MADL PERCUSSION INSTRUMENT REPAIRER, BRITANY L V04.81 FLU DX (3 YRS AND ABOVE, IM) 04/03/2011 MADL PERCUSSION INSTRUMENT REPAIRER, BRITANY L V04.81 FLU DX (3 YRS AND ABOVE, IM) 04/03/2011 MADL PERCUSSION INSTRUMENT REPAIRER, BRITANY L V04.81 FLU DX (3 YRS AND ABOVE, IM) 04/03/2011 RACHAEL BAEZ, TIFFANI M V04.81 FLU DX (3 YRS AND ABOVE, IM) 04/03/2011 MADL PERCUSSION INSTRUMENT REPAIRER, BRITANY L V04.81 FLU DX (3 YRS AND ABOVE, IM) 04/03/2011 MADL PERCUSSION INSTRUMENT REPAIRER, BRITANY L V04.81 FLU DX (3 YRS [...] Screening (pap Smear) 04/28/2011 IVET BARGER DO 789.00 Abdominal Pain Unspecified Site 04/28/2011 IVET BARGER DO V65.3 Counseling - Dietary 04/28/2011 IVET BARGER DO V65.42 Counseling - Smoking Cessation 04/28/2011 IVET BARGER DO V74.5 Std Screen 04/28/2011 IVET BARGER DO F V76.2 Cervical Cancer Screening (pap Smear) [...] APRN D V65.3 Counseling - Dietary 04/28/2011 CRISTIAN LEMA APRNBETH D V65.42 Counseling - Smoking Cessation 04/28/2011 [...] LEMA APRN D V74.5 Std Screen 04/28/2011 CRISTIAN LEMA APRNBETH D V76.2 Cervical Cancer Screening (pap Smear) 04/28/2011 MARC MADDOX APRN 789.00 Abdominal Pain Unspecified Site 04/28/2011 JOHAN MADDOX APRNIDI A V65.3 Counseling - Dietary 04/28/2011 TAN SUGGS, MARC A V65.42 Counseling - Smoking Cessation 04/28/2011 JOHAN MADDOX APRNIDI A V74.5 Std Screen 04/28/2011 JOHAN MADDOX APRNIDI A V76.2 Cervical Cancer Screening (pap Smear) 04/28/2011 MARLENI BOSCH APRNA L 789.00 Abdominal Pain Unspecified Site 04/28/2011 MARLENI BOSCH APRNA L V65.3 Counseling - Dietary 04/28/2011 DANITZA SUGGS BRITANY L V65.42 Counseling - Smoking Cessation 04/28/2011 DANITZA SUGGS, BRITANY L V74.5 Std Screen 04/28/2011 VIOLET BOSCH APRNWNYA L V76.2 Cervical Cancer Screening (pap Smear) 04/28/2011 VIOLET BOSCH APRNWNYA L 789.00 Abdominal Pain Unspecified Site 04/28/2011 TRISH BOSCH APRNNYA L V65.3 Counseling - Dietary 04/28/2011 VIOLET BOSCH APRNWNYA L V65.42 Counseling - Smoking Cessation 04/28/2011 VIOLET BOSCH APRNWNYA L V74.5 Std Screen 04/28/2011 TRISH BOSCH APRNNYA L V76.2 Cervical Cancer Screening (pap Smear) 04/28/2011 HULL DO, ERICKA K 789.00 Abdominal Pain Unspecified Site 04/28/2011 HULL DO, ERICKA K V65.3 Counseling - Dietary 04/28/2011 HULL DO, ERICKA K V65.42 Counseling - Smoking Cessation 04/28/2011 HULL DO, ERICKA K V74.5 Std Screen 04/28/2011 HULL DO, ERICKA K V76.2 Cervical Cancer Screening (pap Smear) 04/28/2011 VIOLET BOSCH APRNWNYA L 789.00 Abdominal Pain Unspecified Site 04/28/2011 DANITZA SUGGS, BRITANY L V65.3 Counseling - Dietary 04/28/2011 VIOLET BOSCH APRNWNYA L V65.42 Counseling - Smoking Cessation 04/28/2011 DANITZA SUGGS BRITANY L V74.5 Std Screen 04/28/2011 DANITZA PERCUSSION INSTRUMENT REPAIRER, BRITANY L V76.2 Cervical Cancer Screening (pap Smear) 04/28/2011 789.00 Abdominal Pain Unspecified Site 04/28/2011 V65.3 Counseling - Dietary 04/28/2011 V65.42 Counseling - Smoking Cessation 04/28/2011 V74.5 Std Screen 04/28/2011 V76.2 Cervical Cancer Screening (pap Smear) 04/28/2011 [facility], ERICK R 789.00 Abdominal Pain Unspecified Site 04/28/2011 [facility], ERICK R V65.3 Counseling - Dietary 04/28/2011 [facility], ERICK R V65.42 Counseling - Smoking Cessation 04/28/2011 [facility], ERICK R V74.5 Std Screen 04/28/2011 [facility], ERICK R V76.2 Cervical Cancer Screening (pap Smear) 04/28/2011 DANITZA PERCUSSION INSTRUMENT REPAIRER, BRITANY L 789.00 Abdominal Pain Unspecified Site 04/28/2011 MADL PERCUSSION INSTRUMENT REPAIRER, BRITANY L V65.3 Counseling - Dietary 04/28/2011 MADL PERCUSSION INSTRUMENT REPAIRER, BRITANY L V65.42 Counseling - Smoking Cessation 04/28/2011 MADL PERCUSSION INSTRUMENT REPAIRER, BRITANY L V74.5 Std Screen 04/28/2011 MADNas PERCUSSION INSTRUMENT REPAIRER, BRITANY L V76.2 Cervical Cancer Screening (pap Smear) 04/28/2011 HULL DO, ERICKA K 789.00 Abdominal Pain Unspecified Site 04/28/2011 HULL DO, ERICKA K V65.3 Counseling - Dietary 04/28/2011 HULL DO, ERICKA K V65.42 Counseling - Smoking Cessation 04/28/2011 HULL DO, ERICKA K V74.5 Std Screen 04/28/2011 HULL DO, ERICKA K V76.2 Cervical Cancer Screening (pap Smear) 04/28/2011 MADL PERCUSSION INSTRUMENT REPAIRER, BRITANY L 789.00 Abdominal Pain Unspecified Site 04/28/2011 MADL PERCUSSION INSTRUMENT REPAIRER, BRITANY L V65.3 Counseling - Dietary 04/28/2011 MADL PERCUSSION INSTRUMENT REPAIRER, BRITANY L V65.42 Counseling - Smoking Cessation 04/28/2011 MADL PERCUSSION INSTRUMENT REPAIRER, BRITANY L V74.5 Std Screen 04/28/2011 MADL PERCUSSION INSTRUMENT REPAIRER, BRITANY L V76.2 Cervical Cancer Screening (pap Smear) 04/28/2011 MADL PERCUSSION INSTRUMENT REPAIRER, BRITANY L 789.00 Abdominal Pain Unspecified Site 04/28/2011 MADL PERCUSSION INSTRUMENT REPAIRER, BRITANY L V65.3 Counseling - Dietary 04/28/2011 MADL PERCUSSION INSTRUMENT REPAIRER, BRITANY L V65.42 Counseling - Smoking Cessation 04/28/2011 MADL PERCUSSION INSTRUMENT REPAIRER, BRITANY L V74.5 Std Screen 04/28/2011 MADL PERCUSSION INSTRUMENT REPAIRER, BRITANY L V76.2 Cervical Cancer Screening (pap Smear) 04/28/2011 MADL PERCUSSION INSTRUMENT REPAIRER, BRITANY L 789.00 Abdominal Pain Unspecified Site 04/28/2011 MADL PERCUSSION INSTRUMENT REPAIRER, BRITANY L V65.3 Counseling - Dietary 04/28/2011 MADL PERCUSSION INSTRUMENT REPAIRER, BRITANY L V65.42 Counseling - Smoking Cessation 04/28/2011 MADL PERCUSSION INSTRUMENT REPAIRER, BRITANY L V74.5 Std Screen 04/28/2011 MADL PERCUSSION INSTRUMENT REPAIRER, BRITANY L V76.2 Cervical Cancer Screening (pap Smear) 04/28/2011 TIFFANI ROSA M 789.00 Abdominal Pain Unspecified Site 04/28/2011 TIFFANI ROSA M V65.3 Counseling - Dietary 04/28/2011 TIFFANI ROSA M V65.42 Counseling - Smoking Cessation 04/28/2011 TIFFANI ROSA M V74.5 Std Screen 04/28/2011 TIFFANI ROSA M V76.2 Cervical Cancer Screening (pap Smear) 04/28/2011 RENÉL PERCUSSION INSTRUMENT REPAIRER, BRITANY L 789.00 Abdominal Pain Unspecified Site 04/28/2011 MADL PERCUSSION INSTRUMENT REPAIRER, BRITANY L V65.3 Counseling - Dietary 04/28/2011 MADL PERCUSSION INSTRUMENT REPAIRER, BRITANY L V65.42 Counseling - Smoking Cessation 04/28/2011 MADL PERCUSSION INSTRUMENT REPAIRER, BRITANY L V74.5 Std Screen 04/28/2011 MADL PERCUSSION INSTRUMENT REPAIRER, BRITANY L V76.2 Cervical Cancer Screening (pap Smear) 04/28/2011 MADL PERCUSSION INSTRUMENT REPAIRER, BRITANY L 789.00 Abdominal Pain Unspecified Site 04/28/2011 MADL PERCUSSION INSTRUMENT REPAIRER, BRITANY L V65.3 Counseling - Dietary 04/28/2011 DANITZA PEDROBRITANY Wells V65.42 Counseling - Smoking Cessation 04/28/2011 DANITZA PEDROBRITANY Wells V74.5 Std Screen 04/28/2011 DANITZA PEDROMARLENI WellsA L V76.2 Cervical Cancer Screening (pap Smear) 06/02/2011 IVET BARGER DO 296.64 MO BIPOLAR I MIXED W PSYCHOTIC BEHAVIOR 06/02/2011 ARLENE LEMA APRN 296.64 MO BIPOLAR I MIXED W PSYCHOTIC BEHAVIOR 06/02/2011 296.64 MO BIPOLAR I MIXED W PSYCHOTIC BEHAVIOR 06/02/2011 ARLENE LEMA APRN 296.64 MO BIPOLAR I MIXED W PSYCHOTIC BEHAVIOR 06/02/2011 IEVT BARGER DO 296.64 MO BIPOLAR I MIXED [...] I MIXED W PSYCHOTIC BEHAVIOR 06/02/2011 MADL PERCUSSION INSTRUMENT REPAIRER, BRITANY L 296.64 MO BIPOLAR I MIXED W PSYCHOTIC BEHAVIOR 06/02/2011 HULL DO, ERICKA K 296.64 MO BIPOLAR I MIXED W PSYCHOTIC BEHAVIOR 06/02/2011 MADL PERCUSSION INSTRUMENT REPAIRER, BRITANY L 296.64 MO BIPOLAR I MIXED W PSYCHOTIC BEHAVIOR 06/02/2011 296.64 MO BIPOLAR I MIXED W PSYCHOTIC BEHAVIOR 06/02/2011 [facility], ERICK R 296.64 MO BIPOLAR I MIXED W PSYCHOTIC BEHAVIOR 06/02/2011 MADL PERCUSSION INSTRUMENT REPAIRER, BRITANY L 296.64 MO BIPOLAR I MIXED W PSYCHOTIC BEHAVIOR 06/02/2011 HULL DO, ERICKA K 296.64 MO BIPOLAR I MIXED W PSYCHOTIC BEHAVIOR 06/02/2011 MADL PERCUSSION INSTRUMENT REPAIRER, BRITANY L 296.64 MO BIPOLAR I MIXED W PSYCHOTIC BEHAVIOR 06/02/2011 MADL PERCUSSION INSTRUMENT REPAIRER, BRITANY L 296.64 MO BIPOLAR I MIXED W PSYCHOTIC BEHAVIOR 06/02/2011 MADL PERCUSSION INSTRUMENT REPAIRER, BRITANY L 296.64 MO BIPOLAR I MIXED W PSYCHOTIC BEHAVIOR 06/02/2011 RACHAEL BAEZ, TIFFANI M 296.64 MO BIPOLAR I MIXED W PSYCHOTIC BEHAVIOR 06/02/2011 MADL PERCUSSION INSTRUMENT REPAIRER, BRITANY L 296.64 MO BIPOLAR I MIXED W PSYCHOTIC BEHAVIOR 06/02/2011 MADL PERCUSSION INSTRUMENT REPAIRER, BRITANY L 296.64 MO BIPOLAR I MIXED [...] ARLENE LEMA APRN 705.83 Hidradenitis 10/05/2011 TAN SUGGS, MARC A 705.83 Hidradenitis 10/05/2011 MADL PERCUSSION INSTRUMENT REPAIRER, BRITANY L 705.83 Hidradenitis 10/05/2011 MADL PERCUSSION INSTRUMENT REPAIRER, BRITANY L 705.83 Hidradenitis 10/05/2011 HULL DO, ERICKA K 705.83 Hidradenitis 10/05/2011 MADL PERCUSSION INSTRUMENT REPAIRER, BRITANY L 705.83 Hidradenitis 10/05/2011 705.83 Hidradenitis 10/05/2011 YAHAIRA [facility], ERICK R 705.83 Hidradenitis 10/05/2011 MADL PERCUSSION INSTRUMENT REPAIRER, BRITANY L 705.83 Hidradenitis 10/05/2011 HULL DO, ERICKA K 705.83 Hidradenitis 10/05/2011 MADL PERCUSSION INSTRUMENT REPAIRER, BRITANY L 705.83 Hidradenitis 10/05/2011 MADL PERCUSSION INSTRUMENT REPAIRER, BRITANY L 705.83 Hidradenitis 10/05/2011 MAD PERCUSSION INSTRUMENT REPAIRER, BRITANY L 705.83 Hidradenitis 10/05/2011 TIFFANI ROSA 705.83 Hidradenitis 10/05/2011 MADL PERCUSSION INSTRUMENT REPAIRER, BRITANY L 705.83 Hidradenitis 10/05/2011 MADL PERCUSSION INSTRUMENT REPAIRER, BRITANY L 705.83 Hidradenitis 12/14/2011 IVET BARGER [...] APRN D 401.1 BENIGN ESSENTIAL HYPERTENSION 12/14/2011 CRISTIAN LEMA APRNBETH D 401.1 BENIGN ESSENTIAL HYPERTENSION 12/14/2011 CRISTIAN LEMA APRNBETH D 401.1 BENIGN ESSENTIAL HYPERTENSION 12/14/2011 CRISTIAN LEMA APRNBETH D 401.1 BENIGN ESSENTIAL HYPERTENSION 12/14/2011 PILAR LEMA APRNZABETH D 401.1 BENIGN ESSENTIAL HYPERTENSION 12/14/2011 MARC MADDOX APRN 401.1 BENIGN ESSENTIAL HYPERTENSION 12/14/2011 RENÉL PERCUSSION INSTRUMENT REPAIRER, BRITANY L 401.1 BENIGN ESSENTIAL HYPERTENSION 12/14/2011 MADL PERCUSSION INSTRUMENT REPAIRER, BRITANY L 401.1 BENIGN ESSENTIAL HYPERTENSION 12/14/2011 ERICKA HULL DO K 401.1 BENIGN ESSENTIAL HYPERTENSION 12/14/2011 RENÉL PERCUSSION INSTRUMENT REPAIRER, BRITANY L 401.1 BENIGN ESSENTIAL HYPERTENSION 12/14/2011 401.1 BENIGN ESSENTIAL HYPERTENSION 12/14/2011 [facility]IR[facility], ERICK R 401.1 BENIGN ESSENTIAL HYPERTENSION 12/14/2011 MADL PERCUSSION INSTRUMENT REPAIRER, BRITANY L 401.1 BENIGN ESSENTIAL HYPERTENSION 12/14/2011 ERICKA HULL DO K 401.1 BENIGN ESSENTIAL HYPERTENSION 12/14/2011 MADL PERCUSSION INSTRUMENT REPAIRER, BRITANY L 401.1 BENIGN ESSENTIAL HYPERTENSION 12/14/2011 MADL PERCUSSION INSTRUMENT REPAIRER, BRITANY L 401.1 BENIGN ESSENTIAL HYPERTENSION 12/14/2011 MADL PERCUSSION INSTRUMENT REPAIRER, BRITANY L 401.1 BENIGN ESSENTIAL HYPERTENSION 12/14/2011 TIFFANI ROSA 401.1 BENIGN ESSENTIAL HYPERTENSION 12/14/2011 MADL PERCUSSION INSTRUMENT REPAIRER, BRITANY L 401.1 BENIGN ESSENTIAL HYPERTENSION 12/14/2011 MADL PERCUSSION INSTRUMENT REPAIRER, BRITANY L 401.1 BENIGN ESSENTIAL HYPERTENSION 03/21/2012 WERDER DO, IVET F V74.1 TB SCREENING 03/21/2012 ARLENE LEMA [...] V74.1 TB SCREENING 03/21/2012 MARC MADDOX APRN A V74.1 TB SCREENING 03/21/2012 MADL PERCUSSION INSTRUMENT REPAIRER, BRITANY L V74.1 TB SCREENING 03/21/2012 MADL PERCUSSION INSTRUMENT REPAIRER, BRITANY L V74.1 TB SCREENING 03/21/2012 HULL ERICKA WALTERS K V74.1 TB SCREENING 03/21/2012 MADL PERCUSSION INSTRUMENT REPAIRER, BRITANY L V74.1 TB SCREENING 03/21/2012 V74.1 TB SCREENING 03/21/2012 YAHAIRA [facility], ERICK R V74.1 TB SCREENING 03/21/2012 MADL PERCUSSION INSTRUMENT REPAIRER, BRITANY L V74.1 TB SCREENING 03/21/2012 HULL DOERICKA K V74.1 TB SCREENING 03/21/2012 MADL PERCUSSION INSTRUMENT REPAIRER, BRITANY L V74.1 TB SCREENING 03/21/2012 MADL PERCUSSION INSTRUMENT REPAIRER, BRITANY L V74.1 TB SCREENING 03/21/2012 MADL PERCUSSION INSTRUMENT REPAIRER, BRITANY L V74.1 TB SCREENING 03/21/2012 RACHAEL NESTORTIFFANI M V74.1 TB SCREENING 03/21/2012 DANITZA PERCUSSION INSTRUMENT REPAIRERBRITANY Wells L V74.1 TB SCREENING 03/21/2012 BRITANY BOSCH APRN L V74.1 TB SCREENING 05/30/2012 465.9 ACUTE UPPER RESPIRATORY INFECTIONS OF UNSPECIFIED SITE 05/30/2012 V18.0 FAM HX DIABETES MELLITUS 05/30/2012 V69.2 HIGH-RISK SEXUAL BEHAVIOR 05/30/2012 V72.31 CLAMPER EXAM, ROUTINE 05/30/2012 V74.5 STD SCREEN 05/30/2012 V76.10 BREAST CANCER SCREENING 05/30/2012 V76.2 CERVICAL CANCER SCREENING (PAP SMEAR) 05/30/2012 ARLENE LEMA APRN 465.9 ACUTE UPPER RESPIRATORY INFECTIONS OF UNSPECIFIED SITE 05/30/2012 ARLENE LEMA APRN V18.0 FAM HX DIABETES MELLITUS 05/30/2012 ARLENE LEMA APRN V69.2 HIGH-RISK SEXUAL BEHAVIOR 05/30/2012 ARLENE LEMA APRN V72.31 CLAMPER EXAM, ROUTINE 05/30/2012 ARLENE LEMA APRN V74.5 STD SCREEN 05/30/2012 ARLENE LEMA APRN V76.10 BREAST CANCER SCREENING 05/30/2012 ARLENE LEMA APRN V76.2 CERVICAL CANCER SCREENING (PAP SMEAR) 05/30/2012 IVET BARGER DO 465.9 ACUTE UPPER RESPIRATORY INFECTIONS OF UNSPECIFIED SITE 05/30/2012 IVET BARGER DO V18.0 FAM HX DIABETES MELLITUS 05/30/2012 IVET BARGER DO V69.2 HIGH-RISK SEXUAL BEHAVIOR 05/30/2012 IVET BARGER DO V72.31 CLAMPER EXAM, ROUTINE 05/30/2012 IVET BARGER DO V74.5 STD SCREEN 05/30/2012 IVET BARGER DO V76.10 BREAST CANCER SCREENING 05/30/2012 IVET BARGER DO V76.2 CERVICAL CANCER SCREENING (PAP SMEAR) 05/30/2012 NAY PALOMO APRN 465.9 ACUTE UPPER RESPIRATORY INFECTIONS OF UNSPECIFIED SITE 05/30/2012 NAY PALOMO APRN S V18.0 FAM HX DIABETES MELLITUS 05/30/2012 NICKI PALOMO APRNNDA S V69.2 HIGH-RISK SEXUAL BEHAVIOR 05/30/2012 NAY PALOMO APRN S V72.31 CLAMPER EXAM, ROUTINE 05/30/2012 NAY PALOMO APRN S V74.5 STD SCREEN 05/30/2012 NAY PALOMO APRN S V76.10 BREAST CANCER SCREENING 05/30/2012 NAY PALOMO APRN S V76.2 CERVICAL CANCER SCREENING (PAP SMEAR) 05/30/2012 465.9 ACUTE UPPER RESPIRATORY INFECTIONS OF UNSPECIFIED SITE 05/30/2012 V18.0 FAM HX DIABETES MELLITUS 05/30/2012 V69.2 HIGH-RISK SEXUAL BEHAVIOR 05/30/2012 V72.31 CLAMPER EXAM, ROUTINE 05/30/2012 V74.5 STD SCREEN 05/30/2012 V76.10 BREAST CANCER SCREENING 05/30/2012 V76.2 CERVICAL CANCER SCREENING (PAP SMEAR) 05/30/2012 465.9 ACUTE UPPER RESPIRATORY INFECTIONS OF UNSPECIFIED SITE 05/30/2012 V18.0 FAM HX DIABETES MELLITUS 05/30/2012 V69.2 HIGH-RISK SEXUAL BEHAVIOR 05/30/2012 V72.31 CLAMPER EXAM, ROUTINE 05/30/2012 V74.5 STD SCREEN 05/30/2012 V76.10 BREAST CANCER SCREENING 05/30/2012 V76.2 CERVICAL CANCER SCREENING (PAP SMEAR) 05/30/2012 465.9 ACUTE UPPER RESPIRATORY INFECTIONS OF UNSPECIFIED SITE 05/30/2012 V18.0 FAM HX DIABETES MELLITUS 05/30/2012 V69.2 HIGH-RISK SEXUAL BEHAVIOR 05/30/2012 V72.31 CLAMPER EXAM, ROUTINE 05/30/2012 V74.5 STD SCREEN 05/30/2012 V76.10 BREAST CANCER SCREENING 05/30/2012 V76.2 CERVICAL CANCER SCREENING (PAP SMEAR) 05/30/2012 465.9 ACUTE UPPER RESPIRATORY INFECTIONS OF UNSPECIFIED SITE 05/30/2012 V18.0 FAM HX DIABETES MELLITUS 05/30/2012 V69.2 HIGH-RISK SEXUAL BEHAVIOR 05/30/2012 V72.31 CLAMPER EXAM, ROUTINE 05/30/2012 V74.5 STD SCREEN 05/30/2012 V76.10 BREAST CANCER SCREENING 05/30/2012 V76.2 CERVICAL CANCER SCREENING (PAP SMEAR) 05/30/2012 465.9 ACUTE UPPER RESPIRATORY INFECTIONS OF UNSPECIFIED SITE 05/30/2012 V18.0 FAM HX DIABETES MELLITUS 05/30/2012 V69.2 HIGH-RISK SEXUAL BEHAVIOR 05/30/2012 V72.31 CLAMPER EXAM, ROUTINE 05/30/2012 V74.5 STD SCREEN 05/30/2012 V76.10 BREAST CANCER SCREENING 05/30/2012 V76.2 CERVICAL CANCER SCREENING (PAP SMEAR) 05/30/2012 465.9 ACUTE UPPER RESPIRATORY INFECTIONS OF UNSPECIFIED SITE 05/30/2012 V18.0 FAM HX DIABETES MELLITUS 05/30/2012 V69.2 HIGH-RISK SEXUAL BEHAVIOR 05/30/2012 V72.31 CLAMPER EXAM, ROUTINE 05/30/2012 V74.5 STD SCREEN 05/30/2012 V76.10 BREAST CANCER SCREENING 05/30/2012 V76.2 CERVICAL CANCER SCREENING (PAP SMEAR) 05/30/2012 ARLENE LEMA APRN 465.9 ACUTE UPPER RESPIRATORY INFECTIONS OF UNSPECIFIED SITE 05/30/2012 ARLENE LEMA APRN V18.0 FAM HX DIABETES MELLITUS 05/30/2012 ARLENE LEMA APRN V69.2 HIGH-RISK SEXUAL BEHAVIOR 05/30/2012 ARLENE LEMA APRN V72.31 CLAMPER EXAM, ROUTINE 05/30/2012 ARLENE LEMA APRN V74.5 STD SCREEN 05/30/2012 ARLENE LEMA APRN V76.10 BREAST CANCER SCREENING 05/30/2012 ARLENE LEMA APRN V76.2 CERVICAL CANCER SCREENING (PAP SMEAR) 05/30/2012 ARLENE LEMA APRN 465.9 ACUTE UPPER RESPIRATORY INFECTIONS OF UNSPECIFIED SITE 05/30/2012 ARLENE LEMA APRN V18.0 FAM HX DIABETES MELLITUS 05/30/2012 ARLENE LEMA APRN V69.2 HIGH-RISK SEXUAL BEHAVIOR 05/30/2012 ARLENE LEMA APRN V72.31 CLAMPER EXAM, ROUTINE 05/30/2012 ARLENE LEMA APRN V74.5 STD SCREEN 05/30/2012 ARLENE LEMA APRN V76.10 BREAST CANCER SCREENING 05/30/2012 ARLENE LEMA APRN V76.2 CERVICAL CANCER SCREENING (PAP SMEAR) 05/30/2012 ARLENE LEMA APRN 465.9 ACUTE UPPER RESPIRATORY INFECTIONS OF UNSPECIFIED SITE 05/30/2012 ARLENE LEMA APRN V18.0 FAM HX DIABETES MELLITUS 05/30/2012 ARLENE LEMA APRN V69.2 HIGH-RISK SEXUAL BEHAVIOR 05/30/2012 ARLENE LEMA APRN V72.31 CLAMPER EXAM, ROUTINE 05/30/2012 ARLENE LEMA APRN V74.5 STD SCREEN 05/30/2012 ARLENE LEMA APRN V76.10 BREAST CANCER SCREENING 05/30/2012 ARLENE LEMA APRN V76.2 CERVICAL CANCER SCREENING (PAP SMEAR) 05/30/2012 ARLENE LEMA APRN 465.9 ACUTE UPPER RESPIRATORY INFECTIONS OF UNSPECIFIED SITE 05/30/2012 ARLENE LEMA APRN V18.0 FAM HX DIABETES MELLITUS 05/30/2012 ARLENE LEMA APRN V69.2 HIGH-RISK SEXUAL BEHAVIOR 05/30/2012 ARLENE LEMA APRN V72.31 CLAMPER EXAM, ROUTINE 05/30/2012 ARLENE LEMA APRN V74.5 STD SCREEN 05/30/2012 ARLENE LEMA APRN V76.10 BREAST CANCER SCREENING 05/30/2012 ARLENE LEMA APRN V76.2 CERVICAL CANCER SCREENING (PAP SMEAR) 05/30/2012 ARLENE LEMA APRN 465.9 ACUTE UPPER RESPIRATORY INFECTIONS OF UNSPECIFIED SITE 05/30/2012 ARLENE LEMA APRN V18.0 FAM HX DIABETES MELLITUS 05/30/2012 ARLENE LEMA APRN D V69.2 HIGH-RISK SEXUAL BEHAVIOR 05/30/2012 ARLENE LEMA APRN V72.31 CLAMPER EXAM, ROUTINE 05/30/2012 ARLENE LEMA APRN V74.5 STD SCREEN 05/30/2012 ARLENE LEMA APRN V76.10 BREAST CANCER SCREENING 05/30/2012 PITA PEDRONARLENE V76.2 CERVICAL CANCER SCREENING (PAP SMEAR) 05/30/2012 TAN SUGGS, MARC A 465.9 ACUTE UPPER RESPIRATORY INFECTIONS OF UNSPECIFIED SITE 05/30/2012 TAN PEDRON, MARC A V18.0 FAM HX DIABETES MELLITUS 05/30/2012 TAN PERCUSSION INSTRUMENT REPAIRER, MARC A V69.2 HIGH-RISK SEXUAL BEHAVIOR 05/30/2012 TAN PEDRON, MARC A V72.31 CLAMPER EXAM, ROUTINE 05/30/2012 TAN PEDRON, MARC A V74.5 STD SCREEN 05/30/2012 TAN PEDRON, MARC A V76.10 BREAST CANCER SCREENING 05/30/2012 TAN PEDRON, MARC A V76.2 CERVICAL CANCER SCREENING (PAP SMEAR) 05/30/2012 RENÉL PERCUSSION INSTRUMENT REPAIRER, BRITANY L 465.9 ACUTE UPPER RESPIRATORY INFECTIONS OF UNSPECIFIED SITE 05/30/2012 RENÉL PERCUSSION INSTRUMENT REPAIRER, BRITANY L V18.0 FAM HX DIABETES MELLITUS 05/30/2012 MADL PERCUSSION INSTRUMENT REPAIRER, BRITANY L V69.2 HIGH-RISK SEXUAL BEHAVIOR 05/30/2012 MADL PERCUSSION INSTRUMENT REPAIRER, BRITANY L V72.31 CLAMPER EXAM, ROUTINE 05/30/2012 MADL PERCUSSION INSTRUMENT REPAIRER, BRITANY L V74.5 STD SCREEN 05/30/2012 MADL PERCUSSION INSTRUMENT REPAIRER, BRITANY L V76.10 BREAST CANCER SCREENING 05/30/2012 MADL PERCUSSION INSTRUMENT REPAIRER, BRITANY L V76.2 CERVICAL CANCER SCREENING (PAP SMEAR) 05/30/2012 MADL PERCUSSION INSTRUMENT REPAIRER, BRITANY L 465.9 ACUTE UPPER RESPIRATORY INFECTIONS OF UNSPECIFIED SITE 05/30/2012 MADL PERCUSSION INSTRUMENT REPAIRER, BRITANY L V18.0 FAM HX DIABETES MELLITUS 05/30/2012 MADL PERCUSSION INSTRUMENT REPAIRER, BRITANY L V69.2 HIGH-RISK SEXUAL BEHAVIOR 05/30/2012 MADL PERCUSSION INSTRUMENT REPAIRER, BRITANY L V72.31 CLAMPER EXAM, ROUTINE 05/30/2012 MADL PERCUSSION INSTRUMENT REPAIRER, BRITANY L V74.5 STD SCREEN 05/30/2012 MADL PERCUSSION INSTRUMENT REPAIRER, BRITANY L V76.10 BREAST CANCER SCREENING 05/30/2012 MADL PERCUSSION INSTRUMENT REPAIRER, BRITANY L V76.2 CERVICAL CANCER SCREENING (PAP SMEAR) 05/30/2012 DELLA WALTERS ERICKA K 465.9 ACUTE UPPER RESPIRATORY INFECTIONS OF UNSPECIFIED SITE 05/30/2012 DELLA WALTERSERICKA K V18.0 FAM HX DIABETES MELLITUS 05/30/2012 DELLA WALTERS ERICKA K V69.2 HIGH-RISK SEXUAL BEHAVIOR 05/30/2012 DELLA ROCIO WALTERSA K V72.31 CLAMPER EXAM, ROUTINE 05/30/2012 DELLA ERICKA WALTERS K V74.5 STD SCREEN 05/30/2012 DELLA WALTERSERICKA K V76.10 BREAST CANCER SCREENING 05/30/2012 DELLA WALTERS ERICKA K V76.2 CERVICAL CANCER SCREENING (PAP SMEAR) 05/30/2012 RENÉL PERCUSSION INSTRUMENT REPAIRERMARLENI WellsA L 465.9 ACUTE UPPER RESPIRATORY INFECTIONS OF UNSPECIFIED SITE 05/30/2012 RENÉL PERCUSSION INSTRUMENT REPAIRERVIOLETBRITANY L V18.0 FAM HX DIABETES MELLITUS 05/30/2012 MADL PERCUSSION INSTRUMENT REPAIRER, BRITANY L V69.2 HIGH-RISK SEXUAL BEHAVIOR 05/30/2012 MADL PERCUSSION INSTRUMENT REPAIRERVIOLETBRITANY L V72.31 CLAMPER EXAM, ROUTINE 05/30/2012 MADL PERCUSSION INSTRUMENT REPAIRER, BRITANY L V74.5 STD SCREEN 05/30/2012 MADL PERCUSSION INSTRUMENT REPAIRERVIOLETBRITANY L V76.10 BREAST CANCER SCREENING 05/30/2012 RENÉL PERCUSSION INSTRUMENT REPAIRERVIOLETBRITANY L V76.2 CERVICAL CANCER SCREENING (PAP SMEAR) 05/30/2012 465.9 ACUTE UPPER RESPIRATORY INFECTIONS OF UNSPECIFIED SITE 05/30/2012 V18.0 FAM HX DIABETES MELLITUS 05/30/2012 V69.2 HIGH-RISK SEXUAL BEHAVIOR 05/30/2012 V72.31 CLAMPER EXAM, ROUTINE 05/30/2012 V74.5 STD SCREEN 05/30/2012 V76.10 BREAST CANCER SCREENING 05/30/2012 V76.2 CERVICAL CANCER SCREENING (PAP SMEAR) [facility]30/2012 [facility] UPPER RESPIRATORY INFECTIONS OF UNSPECIFIED SITE 05/30/2012 [facility] V18.0 FAM HX DIABETES MELLITUS 05/30/2012 [facility] V[facility].2 HIGH-RISK SEXUAL BEHAVIOR 05/30/2012 [facility] V[facility].31 CLAMPER EXAM, ROUTINE 05/30/2012 [facility], ERICK R V74.5 STD SCREEN 05/30/2012 [facility], ERICK R V76.10 BREAST CANCER SCREENING 05/30/2012 [facility], ERICK R V76.2 CERVICAL CANCER SCREENING (PAP SMEAR) 05/30/2012 MADL PERCUSSION INSTRUMENT REPAIRER, BRITANY L 465.9 ACUTE UPPER RESPIRATORY INFECTIONS OF UNSPECIFIED SITE 05/30/2012 MADL PERCUSSION INSTRUMENT REPAIRER, BRITANY L V18.0 FAM HX DIABETES MELLITUS 05/30/2012 MADL PERCUSSION INSTRUMENT REPAIRER, BRITANY L V69.2 HIGH-RISK SEXUAL BEHAVIOR 05/30/2012 MADL PERCUSSION INSTRUMENT REPAIRER, BRITANY L V72.31 CLAMPER EXAM, ROUTINE 05/30/2012 MADL PERCUSSION INSTRUMENT REPAIRER, BRITANY L V74.5 STD SCREEN 05/30/2012 MADL PERCUSSION INSTRUMENT REPAIRER, BRITANY L V76.10 BREAST CANCER SCREENING 05/30/2012 MADL PERCUSSION INSTRUMENT REPAIRER, BRITANY L V76.2 CERVICAL CANCER SCREENING (PAP SMEAR) 05/30/2012 DELLA WALTERS ERICKA K 465.9 ACUTE UPPER RESPIRATORY INFECTIONS OF UNSPECIFIED SITE 05/30/2012 HULL DO ERICKA K V18.0 FAM HX DIABETES MELLITUS 05/30/2012 HULL DO ERICKA K V69.2 HIGH-RISK SEXUAL BEHAVIOR 05/30/2012 DELLA WALTERS ERICKA K V72.31 CLAMPER EXAM, ROUTINE 05/30/2012 DELLA WALTERS ERICKA K V74.5 STD SCREEN 05/30/2012 H[facility] DO ERICKA K V76.10 BREAST CANCER SCREENING 05/30/2012 HULL DO ERICKA K V76.2 CERVICAL CANCER SCREENING (PAP SMEAR) 05/30/2012 MADL PERCUSSION INSTRUMENT REPAIRER, BRITANY L 465.9 ACUTE UPPER RESPIRATORY INFECTIONS OF UNSPECIFIED SITE 05/30/2012 MADL PERCUSSION INSTRUMENT REPAIRER, BRITANY L V18.0 FAM HX DIABETES MELLITUS 05/30/2012 MADL PERCUSSION INSTRUMENT REPAIRER, BRITANY L V69.2 HIGH-RISK SEXUAL BEHAVIOR 05/30/2012 MADL PERCUSSION INSTRUMENT REPAIRER, BRITANY L V72.31 CLAMPER EXAM, ROUTINE 05/30/2012 MADL PERCUSSION INSTRUMENT REPAIRER, BRITANY L V74.5 STD SCREEN 05/30/2012 MADL PERCUSSION INSTRUMENT REPAIRER, BRITANY L V76.10 BREAST CANCER SCREENING 05/30/2012 MADL PERCUSSION INSTRUMENT REPAIRER, BRITANY L V76.2 CERVICAL CANCER SCREENING (PAP SMEAR) 05/30/2012 MADL PERCUSSION INSTRUMENT REPAIRER, BRITANY L 465.9 ACUTE UPPER RESPIRATORY INFECTIONS OF UNSPECIFIED SITE 05/30/2012 MADL PERCUSSION INSTRUMENT REPAIRER, BRITANY L V18.0 FAM HX DIABETES MELLITUS 05/30/2012 MADL PERCUSSION INSTRUMENT REPAIRER, BRITANY L V69.2 HIGH-RISK SEXUAL BEHAVIOR 05/30/2012 MADL PERCUSSION INSTRUMENT REPAIRER, BRITANY L V72.31 CLAMPER EXAM, ROUTINE 05/30/2012 MADL PERCUSSION INSTRUMENT REPAIRER, BRITANY L V74.5 STD SCREEN 05/30/2012 MADL PERCUSSION INSTRUMENT REPAIRER, BRITANY L V76.10 BREAST CANCER SCREENING 05/30/2012 MADL PERCUSSION INSTRUMENT REPAIRER, BRITANY L V76.2 CERVICAL CANCER SCREENING (PAP SMEAR) 05/30/2012 MADL PERCUSSION INSTRUMENT REPAIRER, BRITANY L 465.9 ACUTE UPPER RESPIRATORY INFECTIONS OF UNSPECIFIED SITE 05/30/2012 MADL PERCUSSION INSTRUMENT REPAIRER, BRITANY L V18.0 FAM HX DIABETES MELLITUS 05/30/2012 MADL PERCUSSION INSTRUMENT REPAIRER, BRITANY L V69.2 HIGH-RISK SEXUAL BEHAVIOR 05/30/2012 MADL PERCUSSION INSTRUMENT REPAIRER, BRITANY L V72.31 CLAMPER EXAM, ROUTINE 05/30/2012 MADL PERCUSSION INSTRUMENT REPAIRER, BRITANY L V74.5 STD SCREEN 05/30/2012 MADL PERCUSSION INSTRUMENT REPAIRER, BRITANY L V76.10 BREAST CANCER SCREENING 05/30/2012 MADL PERCUSSION INSTRUMENT REPAIRER, BRITANY L V76.2 CERVICAL CANCER SCREENING (PAP SMEAR) 05/30/2012 TIFFANI ROSA M 465.9 ACUTE UPPER RESPIRATORY INFECTIONS OF UNSPECIFIED SITE 05/30/2012 TIFFANI ROSA M V18.0 FAM HX DIABETES MELLITUS 05/30/2012 TIFFANI ROSA M V69.2 HIGH-RISK SEXUAL BEHAVIOR 05/30/2012 TIFFANI ROSA M V72.31 CLAMPER EXAM, ROUTINE 05/30/2012 TIFFANI ROSA M V74.5 STD SCREEN 05/30/2012 TIFFANI ROSA M V76.10 BREAST CANCER SCREENING 05/30/2012 TIFFANI ROSA M V76.2 CERVICAL CANCER SCREENING (PAP SMEAR) 05/30/2012 MADL PERCUSSION INSTRUMENT REPAIRER, BRITANY L 465.9 ACUTE UPPER RESPIRATORY INFECTIONS OF UNSPECIFIED SITE 05/30/2012 MADL PERCUSSION INSTRUMENT REPAIRER, BRITANY L V18.0 FAM HX DIABETES MELLITUS 05/30/2012 MADL PERCUSSION INSTRUMENT REPAIRER, BRITANY L V69.2 HIGH-RISK SEXUAL BEHAVIOR 05/30/2012 MADL PERCUSSION INSTRUMENT REPAIRER, BRITANY L V72.31 CLAMPER EXAM, ROUTINE 05/30/2012 MADL PERCUSSION INSTRUMENT REPAIRER, BRITANY L V74.5 STD SCREEN 05/30/2012 MADL PERCUSSION INSTRUMENT REPAIRER, BRITANY L V76.10 BREAST CANCER SCREENING 05/30/2012 MADL PERCUSSION INSTRUMENT REPAIRER, BRITANY L V76.2 CERVICAL CANCER SCREENING (PAP SMEAR) 05/30/2012 MADL PERCUSSION INSTRUMENT REPAIRER, BRITANY L 465.9 ACUTE UPPER RESPIRATORY INFECTIONS OF UNSPECIFIED SITE 05/30/2012 MADL PERCUSSION INSTRUMENT REPAIRER, BRITANY L V18.0 FAM HX DIABETES MELLITUS 05/30/2012 MADL PERCUSSION INSTRUMENT REPAIRER, BRITANY L V69.2 HIGH-RISK SEXUAL BEHAVIOR 05/30/2012 MADL PERCUSSION INSTRUMENT REPAIRER, BRITANY L V72.31 CLAMPER EXAM, ROUTINE 05/30/2012 MADL PERCUSSION INSTRUMENT REPAIRER, BRITANY L V74.5 STD SCREEN 05/30/2012 MADL PERCUSSION INSTRUMENT REPAIRER, BRITANY L V76.10 BREAST CANCER SCREENING 05/30/2012 MADL PERCUSSION INSTRUMENT REPAIRER, BRITANY L V76.2 CERVICAL CANCER SCREENING (PAP [...] VAGINITIS VULVOVAGINITIS UNSPECIFIED 08/06/2012 ARLENE LEMA APRN 788.1 DYSURIA 08/06/2012 ARLENE LEMA APRN D 477.0 ALLERGIC RHINITIS DUE TO POLLEN 08/06/2012 ARLENE LEMA APRN D 599.0 URINARY TRACT INFECTION 08/06/2012 ARLNEE LEMA APRN D 616.10 VAGINITIS VULVOVAGINITIS UNSPECIFIED [...] ARLENE LEMA APRN D 788.1 DYSURIA 08/06/2012 TAN PERCUSSION INSTRUMENT REPAIRER, MARC A 477.0 ALLERGIC RHINITIS DUE TO POLLEN 08/06/2012 TAN PERCUSSION INSTRUMENT REPAIRER, MARC A 599.0 URINARY TRACT INFECTION 08/06/2012 TAN PERCUSSION INSTRUMENT REPAIRER, MARC A 616.10 VAGINITIS VULVOVAGINITIS UNSPECIFIED 08/06/2012 TAN PERCUSSION INSTRUMENT REPAIRER, MACR A 788.1 DYSURIA 08/06/2012 MADL PERCUSSION INSTRUMENT REPAIRER, BRITANY L 477.0 ALLERGIC RHINITIS DUE TO POLLEN 08/06/2012 MADL PERCUSSION INSTRUMENT REPAIRER, BRITANY L 599.0 URINARY TRACT INFECTION 08/06/2012 MADL PERCUSSION INSTRUMENT REPAIRER, BRITANY L 616.10 VAGINITIS VULVOVAGINITIS UNSPECIFIED 08/06/2012 MADL PERCUSSION INSTRUMENT REPAIRER, BRITANY L 788.1 DYSURIA 08/06/2012 MADL PERCUSSION INSTRUMENT REPAIRER, BRITANY L 477.0 ALLERGIC RHINITIS DUE TO POLLEN 08/06/2012 MADL PERCUSSION INSTRUMENT REPAIRER, BRITANY L 599.0 URINARY TRACT INFECTION 08/06/2012 MADL PERCUSSION INSTRUMENT REPAIRER, BRITANY L 616.10 VAGINITIS VULVOVAGINITIS UNSPECIFIED 08/06/2012 MADL PERCUSSION INSTRUMENT REPAIRER, BRITANY L 788.1 DYSURIA 08/06/2012 HULL DO, ERICKA K 477.0 ALLERGIC RHINITIS DUE TO POLLEN 08/06/2012 HULL DO, ERICKA K 599.0 URINARY TRACT INFECTION 08/06/2012 HULL DO, ERICKA K 616.10 VAGINITIS VULVOVAGINITIS UNSPECIFIED 08/06/2012 HULL DO, ERICKA K 788.1 DYSURIA 08/06/2012 MADL PERCUSSION INSTRUMENT REPAIRER, BRITANY L 477.0 ALLERGIC RHINITIS DUE TO POLLEN 08/06/2012 MADL PERCUSSION INSTRUMENT REPAIRER, BRITANY L 599.0 URINARY TRACT INFECTION 08/06/2012 MADL PERCUSSION INSTRUMENT REPAIRER, BRITANY L 616.10 VAGINITIS VULVOVAGINITIS UNSPECIFIED 08/06/2012 MADL PERCUSSION INSTRUMENT REPAIRER, BRITANY L 788.1 DYSURIA 08/06/2012 477.0 ALLERGIC RHINITIS DUE TO POLLEN 08/06/2012 599.0 URINARY TRACT INFECTION 08/06/2012 616.10 VAGINITIS VULVOVAGINITIS UNSPECIFIED 08/06/2012 788.1 DYSURIA 08/06/2012 [facility], ERICK R 477.0 ALLERGIC RHINITIS DUE TO POLLEN 08/06/2012 [facility], ERICK R 599.0 URINARY TRACT INFECTION 08/06/2012 [facility], ERICK R 616.10 VAGINITIS VULVOVAGINITIS UNSPECIFIED 08/06/2012 [facility], ERICK R 788.1 DYSURIA 08/06/2012 MADL PERCUSSION INSTRUMENT REPAIRER, BRITANY L 477.0 ALLERGIC RHINITIS DUE TO POLLEN 08/06/2012 MADL PERCUSSION INSTRUMENT REPAIRER, BRITANY L 599.0 URINARY TRACT INFECTION 08/06/2012 MADL PERCUSSION INSTRUMENT REPAIRER, BRITANY L 616.10 VAGINITIS VULVOVAGINITIS UNSPECIFIED 08/06/2012 MADL PERCUSSION INSTRUMENT REPAIRER, BRITANY L 788.1 DYSURIA 08/06/2012 HULL DO, ERICKA K 477.0 ALLERGIC RHINITIS DUE TO POLLEN 08/06/2012 HULL DO, ERICKA K 599.0 URINARY TRACT INFECTION 08/06/2012 HULL DO, ERICKA K 616.10 VAGINITIS VULVOVAGINITIS UNSPECIFIED 08/06/2012 HULL DO, ERICKA K 788.1 DYSURIA 08/06/2012 MADL PERCUSSION INSTRUMENT REPAIRER, BRITANY L 477.0 ALLERGIC RHINITIS DUE TO POLLEN 08/06/2012 MADL PERCUSSION INSTRUMENT REPAIRER, BRITANY L 599.0 URINARY TRACT INFECTION 08/06/2012 MADL PERCUSSION INSTRUMENT REPAIRER, BRITANY L 616.10 VAGINITIS VULVOVAGINITIS UNSPECIFIED 08/06/2012 MADL PERCUSSION INSTRUMENT REPAIRER, BRITANY L 788.1 DYSURIA 08/06/2012 MADL PERCUSSION INSTRUMENT REPAIRER, BRITANY L 477.0 ALLERGIC RHINITIS DUE TO POLLEN 08/06/2012 MADL PERCUSSION INSTRUMENT REPAIRER, BRITANY L 599.0 URINARY TRACT INFECTION 08/06/2012 MADL PERCUSSION INSTRUMENT REPAIRER, BRITANY L 616.10 VAGINITIS VULVOVAGINITIS UNSPECIFIED 08/06/2012 MADL PERCUSSION INSTRUMENT REPAIRER, BRITANY L 788.1 DYSURIA 08/06/2012 MADL PERCUSSION INSTRUMENT REPAIRER, BRITANY L 477.0 ALLERGIC RHINITIS DUE TO POLLEN 08/06/2012 MADL PERCUSSION INSTRUMENT REPAIRER, BRITANY L 599.0 URINARY TRACT INFECTION 08/06/2012 MADL PERCUSSION INSTRUMENT REPAIRER, BRITANY L 616.10 VAGINITIS VULVOVAGINITIS UNSPECIFIED 08/06/2012 MADL PERCUSSION INSTRUMENT REPAIRER, BRITANY L 788.1 DYSURIA 08/06/2012 TIFFANI ROSA M 477.0 ALLERGIC RHINITIS DUE TO POLLEN 08/06/2012 TIFFANI ROSA M 599.0 URINARY TRACT INFECTION 08/06/2012 TIFFANI ROSA M 616.10 VAGINITIS VULVOVAGINITIS UNSPECIFIED 08/06/2012 RACHAEL BAEZ, TIFFANI M 788.1 DYSURIA 08/06/2012 MADL PERCUSSION INSTRUMENT REPAIRER, BRITANY L 477.0 ALLERGIC RHINITIS DUE TO POLLEN 08/06/2012 MADL PERCUSSION INSTRUMENT REPAIRER, BRITANY L 599.0 URINARY TRACT INFECTION 08/06/2012 MADL PERCUSSION INSTRUMENT REPAIRER, BRITANY L 616.10 VAGINITIS VULVOVAGINITIS UNSPECIFIED 08/06/2012 MADL PERCUSSION INSTRUMENT REPAIRER, BRITANY L 788.1 DYSURIA 08/06/2012 MADL PERCUSSION INSTRUMENT REPAIRER, BRITANY L 477.0 ALLERGIC RHINITIS DUE TO POLLEN 08/06/2012 MADL PERCUSSION INSTRUMENT REPAIRER, BRITANY L 599.0 URINARY TRACT INFECTION 08/06/2012 MADL PERCUSSION INSTRUMENT REPAIRER, BRITANY L 616.10 VAGINITIS VULVOVAGINITIS UNSPECIFIED 08/06/2012 MADL PERCUSSION INSTRUMENT REPAIRER, BRITANY L 788.1 DYSURIA 10/24/2012 623.5 LEUKORRHEA NOT SPECIFIED INFECTIVE 10/24/2012 623.5 LEUKORRHEA NOT SPECIFIED INFECTIVE 10/24/2012 623.5 LEUKORRHEA NOT SPECIFIED INFECTIVE 10/24/2012 623.5 LEUKORRHEA NOT SPECIFIED INFECTIVE 10/24/2012 GARTON PERCUSSION INSTRUMENT REPAIRER, ARLENE D 623.5 LEUKORRHEA NOT SPECIFIED INFECTIVE 10/24/2012 GARTON PERCUSSION INSTRUMENT REPAIRER, ARLENE D 623.5 LEUKORRHEA NOT SPECIFIED INFECTIVE 10/24/2012 GARTON PERCUSSION INSTRUMENT REPAIRER, ARLENE D 623.5 LEUKORRHEA NOT SPECIFIED INFECTIVE 10/24/2012 GARTON PERCUSSION INSTRUMENT REPAIRER, ARLENE D 623.5 LEUKORRHEA NOT SPECIFIED INFECTIVE 10/24/2012 GARTON PERCUSSION INSTRUMENT REPAIRER, ARLENE D 623.5 LEUKORRHEA NOT SPECIFIED INFECTIVE 10/24/2012 TAN PERCUSSION INSTRUMENT REPAIRER, MARC A 623.5 LEUKORRHEA NOT SPECIFIED INFECTIVE 10/24/2012 MADL PERCUSSION INSTRUMENT REPAIRER, BRITANY L 623.5 LEUKORRHEA NOT SPECIFIED INFECTIVE 10/24/2012 MADL PERCUSSION INSTRUMENT REPAIRER, BRITANY L 623.5 LEUKORRHEA NOT SPECIFIED INFECTIVE 10/24/2012 ERICKA HULL DO 623.5 LEUKORRHEA NOT SPECIFIED INFECTIVE 10/24/2012 MADL PERCUSSION INSTRUMENT REPAIRER, BRITANY L 623.5 LEUKORRHEA NOT SPECIFIED INFECTIVE 10/24/2012 623.5 LEUKORRHEA NOT SPECIFIED INFECTIVE 10/24/2012 [facility], ERICK R 623.5 LEUKORRHEA NOT SPECIFIED INFECTIVE 10/24/2012 MADL PERCUSSION INSTRUMENT REPAIRER, BRITANY L 623.5 LEUKORRHEA NOT SPECIFIED INFECTIVE 10/24/2012 ERICKA HULL DO 623.5 LEUKORRHEA NOT SPECIFIED INFECTIVE 10/24/2012 MADL PERCUSSION INSTRUMENT REPAIRER, BRITANY L 623.5 LEUKORRHEA NOT SPECIFIED INFECTIVE 10/24/2012 MADL PERCUSSION INSTRUMENT REPAIRER, BRITANY L 623.5 LEUKORRHEA NOT SPECIFIED INFECTIVE 10/24/2012 MADL PERCUSSION INSTRUMENT REPAIRER, BRITANY L 623.5 LEUKORRHEA NOT SPECIFIED INFECTIVE 10/24/2012 TIFFANI ROSA M 623.5 LEUKORRHEA NOT SPECIFIED INFECTIVE 10/24/2012 MADL PERCUSSION INSTRUMENT REPAIRER, BRITANY L 623.5 LEUKORRHEA NOT SPECIFIED INFECTIVE 10/24/2012 MADL PERCUSSION INSTRUMENT REPAIRER, BRITANY L 623.5 LEUKORRHEA NOT SPECIFIED INFECTIVE 11/11/2012 296.90 MOOD DISORDER 11/11/2012 682.0 ABCESS, FACE 11/11/2012 789.02 ABDOMINAL PAIN LEFT UPPER QUADRANT 11/11/2012 296.90 MOOD DISORDER 11/11/2012 682.0 ABCESS, FACE 11/11/2012 789.02 ABDOMINAL PAIN LEFT UPPER QUADRANT 11/11/2012 ARLENE LEMA APRN 296.90 MOOD DISORDER 11/11/2012 ARLENE LEMA APRN 682.0 ABCESS, FACE 11/11/2012 ARLENE LEMA APRN 789.02 ABDOMINAL PAIN LEFT UPPER QUADRANT 11/11/2012 ARLENE LEMA APRN D 296.90 MOOD DISORDER 11/11/2012 ARLENE LEMA APRN 682.0 ABCESS, FACE 11/11/2012 ARLENE LEMA APRN 789.02 ABDOMINAL PAIN LEFT UPPER QUADRANT 11/11/2012 [...] LEMA APRN D 682.0 ABCESS, FACE 11/11/2012 GARARLENE NUNES APRN Martha 789.02 ABDOMINAL PAIN LEFT UPPER QUADRANT 11/11/2012 TAN PERCUSSION INSTRUMENT REPAIRER, MARC A 296.90 MOOD DISORDER 11/11/2012 TAN PERCUSSION INSTRUMENT REPAIRER, MARC A 682.0 ABCESS, FACE 11/11/2012 TAN PERCUSSION INSTRUMENT REPAIRER, MARC A 789.02 ABDOMINAL PAIN LEFT UPPER QUADRANT 11/11/2012 MADL PERCUSSION INSTRUMENT REPAIRER, BRITANY L 296.90 MOOD DISORDER 11/11/2012 MADL PERCUSSION INSTRUMENT REPAIRER, BRITANY L 682.0 ABCESS, FACE 11/11/2012 MADL PERCUSSION INSTRUMENT REPAIRER, BRITANY L 789.02 ABDOMINAL PAIN LEFT UPPER QUADRANT 11/11/2012 MADL PERCUSSION INSTRUMENT REPAIRER, BRITANY L 296.90 MOOD DISORDER 11/11/2012 MADL PERCUSSION INSTRUMENT REPAIRER, BRITANY L 682.0 ABCESS, FACE 11/11/2012 MADL PERCUSSION INSTRUMENT REPAIRER, BRITANY L 789.02 ABDOMINAL PAIN LEFT UPPER QUADRANT 11/11/2012 HULL DO, ERICKA K 296.90 MOOD DISORDER 11/11/2012 HULL DO, ERICKA K 682.0 ABCESS, FACE 11/11/2012 HULL DO, ERICKA K 789.02 ABDOMINAL PAIN LEFT UPPER QUADRANT 11/11/2012 MADL PERCUSSION INSTRUMENT REPAIRER, BRITANY L 296.90 MOOD DISORDER 11/11/2012 MADL PERCUSSION INSTRUMENT REPAIRER, BRITANY L 682.0 ABCESS, FACE 11/11/2012 MADL PERCUSSION INSTRUMENT REPAIRER, BRITANY L 789.02 ABDOMINAL PAIN LEFT UPPER QUADRANT 11/11/2012 296.90 MOOD DISORDER 11/11/2012 682.0 ABCESS, FACE 11/11/2012 789.02 ABDOMINAL PAIN LEFT UPPER QUADRANT 11/11/2012 [facility], ERICK R 296.90 MOOD DISORDER 11/11/2012 [facility], ERICK R 682.0 ABCESS, FACE 11/11/2012 [facility], ERICK R 789.02 ABDOMINAL PAIN LEFT UPPER QUADRANT 11/11/2012 MADL PERCUSSION INSTRUMENT REPAIRER, BRITANY L 296.90 MOOD DISORDER 11/11/2012 MADL PERCUSSION INSTRUMENT REPAIRER, BRITANY L 682.0 ABCESS, FACE 11/11/2012 MADL PERCUSSION INSTRUMENT REPAIRER, BRITANY L 789.02 ABDOMINAL PAIN LEFT UPPER QUADRANT 11/11/2012 HULL DO, ERICKA K 296.90 MOOD DISORDER 11/11/2012 HULL DO, ERICKA K 682.0 ABCESS, FACE 11/11/2012 HULL DO, ERICKA K 789.02 ABDOMINAL PAIN LEFT UPPER QUADRANT 11/11/2012 MADL PERCUSSION INSTRUMENT REPAIRER, BRITANY L 296.90 MOOD DISORDER 11/11/2012 MADL PERCUSSION INSTRUMENT REPAIRER, BRITANY L 682.0 ABCESS, FACE 11/11/2012 MADL PERCUSSION INSTRUMENT REPAIRER, BRITANY L 789.02 ABDOMINAL PAIN LEFT UPPER QUADRANT 11/11/2012 MADL PERCUSSION INSTRUMENT REPAIRER, BRITANY L 296.90 MOOD DISORDER 11/11/2012 MADL PERCUSSION INSTRUMENT REPAIRER, BRITANY L 682.0 ABCESS, FACE 11/11/2012 MADL PERCUSSION INSTRUMENT REPAIRER, BRITANY L 789.02 ABDOMINAL PAIN LEFT UPPER QUADRANT 11/11/2012 MADL PERCUSSION INSTRUMENT REPAIRER, BRITANY L 296.90 MOOD DISORDER 11/11/2012 MADL PERCUSSION INSTRUMENT REPAIRER, BRITANY L 682.0 ABCESS, FACE 11/11/2012 MADL PERCUSSION INSTRUMENT REPAIRER, BRITANY L 789.02 ABDOMINAL PAIN LEFT UPPER QUADRANT 11/11/2012 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, TIFFANI M 296.90 MOOD DISORDER 11/11/2012 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, TIFFANI M 682.0 ABCESS, FACE 11/11/2012 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, TIFFANI M 789.02 ABDOMINAL PAIN LEFT UPPER QUADRANT 11/11/2012 MADL PERCUSSION INSTRUMENT REPAIRER, BRITANY L 296.90 MOOD DISORDER 11/11/2012 MADL PERCUSSION INSTRUMENT REPAIRER, BRITANY L 682.0 ABCESS, FACE 11/11/2012 MADL PERCUSSION INSTRUMENT REPAIRER, BRITANY L 789.02 ABDOMINAL PAIN LEFT UPPER QUADRANT 11/11/2012 MADL PERCUSSION INSTRUMENT REPAIRER, BRITANY L 296.90 MOOD DISORDER 11/11/2012 MADL PERCUSSION INSTRUMENT REPAIRER, BRITANY L 682.0 ABCESS, FACE 11/11/2012 MADL PERCUSSION INSTRUMENT REPAIRER, BRITANY L 789.02 ABDOMINAL PAIN LEFT UPPER QUADRANT 12/06/2012 KIMI MCKEON, ULLY T Ot 724.1 PAIN IN THORACIC SPINE 12/17/2012 KIMI MCKEON, LULY Lin Ot 599.0 URIN TRACT INFECTION NOS 12/17/2012 KIMI MCKEON, LULY Lin Ot 787.01 NAUSEA WITH VOMITING 12/17/2012 KIMI MCKEON, LULY Lin Ot 787.3 FLATUL/ERUCTAT/GAS PAIN 12/17/2012 KIMI MCKEON, LULY Lin Ot 787.91 DIARRHEA 12/27/2012 COSENS DO, JACQUELINE L Ot 723.1 CERVICALGIA 12/27/2012 COSENS DO, JACQUELINE L Ot 724.1 PAIN IN THORACIC SPINE 12/27/2012 COSENS DO, JACQUELINE L Ot V57.1 PHYSICAL THERAPY NEC 03/26/2013 ARLENE LEMA APRN D 786.2 COUGH 03/26/2013 ARLENE LEMA APRN D 786.2 COUGH 03/26/2013 ARLENE LEMA APRN D 786.2 COUGH 03/26/2013 TANRAMONA SUGGS, MARC A 786.2 COUGH 03/26/2013 MADL PERCUSSION INSTRUMENT REPAIRER, BRITANY L 786.2 COUGH 03/26/2013 MADL PERCUSSION INSTRUMENT REPAIRER, BRITANY L 786.2 COUGH 03/26/2013 HULL DO, ERICKA K 786.2 COUGH 03/26/2013 MADL PERCUSSION INSTRUMENT REPAIRER, BRITANY L 786.2 COUGH 03/26/2013 786.2 COUGH 03/26/2013 [facility], ERICK Silver 786.2 COUGH 03/26/2013 MADL PERCUSSION INSTRUMENT REPAIRER, BRITANY L 786.2 COUGH 03/26/2013 HULL DO, ERICKA K 786.2 COUGH 03/26/2013 MADL PERCUSSION INSTRUMENT REPAIRER, BRITANY L 786.2 COUGH 03/26/2013 MADL PERCUSSION INSTRUMENT REPAIRER, BRITANY L 786.2 COUGH 03/26/2013 MADL PERCUSSION INSTRUMENT REPAIRER, BRITANY L 786.2 COUGH 03/26/2013 TIFFANI ROSA 786.2 COUGH 03/26/2013 MADL PERCUSSION INSTRUMENT REPAIRER, BRITANY L 786.2 COUGH 03/26/2013 MADL PERCUSSION INSTRUMENT REPAIRER, BRITANY L 786.2 COUGH 09/30/2013 TAN SUGGS MARC A 564.1 IRRITABLE BOWEL SYNDROME 09/30/2013 TAN SUGGS MARC A 705.83 HIDRADENITIS 09/30/2013 MADL PERCUSSION INSTRUMENT REPAIRER, BRITANY L 564.1 IRRITABLE BOWEL SYNDROME 09/30/2013 MADL PERCUSSION INSTRUMENT REPAIRER, BRITANY L 705.83 HIDRADENITIS 09/30/2013 MADL PERCUSSION INSTRUMENT REPAIRER, BRITANY L 564.1 IRRITABLE BOWEL SYNDROME 09/30/2013 MADL PERCUSSION INSTRUMENT REPAIRER, BRITANY L 705.83 HIDRADENITIS 09/30/2013 HULL DO ERICKA K 564.1 IRRITABLE BOWEL SYNDROME 09/30/2013 HULL DO, ERICKA K 705.83 HIDRADENITIS 09/30/2013 MADL PERCUSSION INSTRUMENT REPAIRER, BRITANY L 564.1 IRRITABLE BOWEL SYNDROME 09/30/2013 MADL PERCUSSION INSTRUMENT REPAIRER, BRITANY L 705.83 HIDRADENITIS 09/30/2013 564.1 IRRITABLE BOWEL SYNDROME 09/30/2013 705.83 HIDRADENITIS 09/30/2013 [facility], ERICK R 564.1 IRRITABLE BOWEL SYNDROME 09/30/2013 [facility], ERICK R 705.83 HIDRADENITIS 09/30/2013 MADL PERCUSSION INSTRUMENT REPAIRER, BRITANY L 564.1 IRRITABLE BOWEL SYNDROME 09/30/2013 MADL PERCUSSION INSTRUMENT REPAIRER, BRITANY L 705.83 HIDRADENITIS 09/30/2013 HULL DO, ERICKA K 564.1 IRRITABLE BOWEL SYNDROME 09/30/2013 HULL DO, ERICKA K 705.83 HIDRADENITIS 09/30/2013 MADL PERCUSSION INSTRUMENT REPAIRER, BRITANY L 564.1 IRRITABLE BOWEL SYNDROME 09/30/2013 MADL PERCUSSION INSTRUMENT REPAIRER, BRITANY L 705.83 HIDRADENITIS 09/30/2013 MADL PERCUSSION INSTRUMENT REPAIRER, BRITANY L 564.1 IRRITABLE BOWEL SYNDROME 09/30/2013 MADL PERCUSSION INSTRUMENT REPAIRER, BRITANY L 705.83 HIDRADENITIS 09/30/2013 MADL PERCUSSION INSTRUMENT REPAIRER, BRITANY L 564.1 IRRITABLE BOWEL SYNDROME 09/30/2013 MADL PERCUSSION INSTRUMENT REPAIRER, BRITANY L 705.83 HIDRADENITIS 09/30/2013 TIFFANI ROSA 564.1 IRRITABLE BOWEL SYNDROME 09/30/2013 TIFFANI ROSA 705.83 HIDRADENITIS 09/30/2013 MADL PERCUSSION INSTRUMENT REPAIRER, BRITANY L 564.1 IRRITABLE BOWEL SYNDROME 09/30/2013 MADL PERCUSSION INSTRUMENT REPAIRER, BRITANY L 705.83 HIDRADENITIS 09/30/2013 MADL PERCUSSION INSTRUMENT REPAIRER, BRITANY L 564.1 IRRITABLE BOWEL SYNDROME 09/30/2013 MADL PERCUSSION INSTRUMENT REPAIRER, BRITANY L 705.83 HIDRADENITIS 10/01/2013 TANRAMONA SUGGS MARC A V65.42 COUNSELING - SMOKING CESSATION 10/01/2013 MADL PERCUSSION INSTRUMENT REPAIRER, BRITANY L V65.42 COUNSELING - SMOKING CESSATION 10/01/2013 MADL PERCUSSION INSTRUMENT REPAIRER, BRITANY L V65.42 COUNSELING - SMOKING CESSATION 10/01/2013 HULL ERICKA WALTERS V65.42 COUNSELING - SMOKING CESSATION 10/01/2013 MADL PERCUSSION INSTRUMENT REPAIRER, BRITANY L V65.42 COUNSELING - SMOKING CESSATION 10/01/2013 V65.42 COUNSELING - SMOKING CESSATION 10/01/2013 [facility], ERICK Silver V65.42 COUNSELING - SMOKING CESSATION 10/01/2013 MADL PERCUSSION INSTRUMENT REPAIRER, BRITANY L V65.42 COUNSELING - SMOKING CESSATION 10/01/2013 HULL ERICKA WALTERS K V65.42 COUNSELING - SMOKING CESSATION 10/01/2013 MADL PERCUSSION INSTRUMENT REPAIRER, BRITANY L V65.42 COUNSELING - SMOKING CESSATION 10/01/2013 MADL PERCUSSION INSTRUMENT REPAIRER, BRITANY L V65.42 COUNSELING - SMOKING CESSATION 10/01/2013 MADL PERCUSSION INSTRUMENT REPAIRER, BRITANY L V65.42 COUNSELING - SMOKING CESSATION 10/01/2013 TIFFANI ROSA V65.42 COUNSELING - SMOKING CESSATION 10/01/2013 MADL PERCUSSION INSTRUMENT REPAIRER, BRITANY L V65.42 COUNSELING - SMOKING CESSATION 10/01/2013 MADL PERCUSSION INSTRUMENT REPAIRER, BRITANY L V65.42 COUNSELING - SMOKING CESSATION 10/20/2013 MADL PERCUSSION INSTRUMENT REPAIRER, BRITANY L 789.00 ABDOMINAL PAIN UNSPECIFIED SITE 10/20/2013 MADL PERCUSSION INSTRUMENT REPAIRER, BRITANY L 789.00 ABDOMINAL PAIN UNSPECIFIED SITE 10/20/2013 HULL DOERICKA K 789.00 ABDOMINAL PAIN UNSPECIFIED SITE 10/20/2013 MADL PERCUSSION INSTRUMENT REPAIRER, BRITANY L 789.00 ABDOMINAL PAIN UNSPECIFIED SITE 10/20/2013 789.00 ABDOMINAL PAIN UNSPECIFIED SITE 10/20/2013 [facility], ERICK R 789.00 ABDOMINAL PAIN UNSPECIFIED SITE 10/20/2013 MADL PERCUSSION INSTRUMENT REPAIRER, BRITANY L 789.00 ABDOMINAL PAIN UNSPECIFIED SITE 10/20/2013 HULL DO, ERICKA K 789.00 ABDOMINAL PAIN UNSPECIFIED SITE 10/20/2013 MADL PERCUSSION INSTRUMENT REPAIRER, BRITANY L 789.00 ABDOMINAL PAIN UNSPECIFIED SITE 10/20/2013 MADL PERCUSSION INSTRUMENT REPAIRER, BRITANY L 789.00 ABDOMINAL PAIN UNSPECIFIED SITE 10/20/2013 MADL PERCUSSION INSTRUMENT REPAIRER, BRITANY L 789.00 ABDOMINAL PAIN UNSPECIFIED SITE 10/20/2013 TIFFANI ROSA 789.00 ABDOMINAL PAIN UNSPECIFIED SITE 10/20/2013 MADL PERCUSSION INSTRUMENT REPAIRER, BRITANY L 789.00 ABDOMINAL PAIN UNSPECIFIED SITE 10/20/2013 MADL PERCUSSION INSTRUMENT REPAIRER, BRITANY L 789.00 ABDOMINAL PAIN UNSPECIFIED SITE 10/28/2013 MADL PERCUSSION INSTRUMENT REPAIRER, BRITANY L 625.9 PELVIC PAIN 10/28/2013 MADL PERCUSSION INSTRUMENT REPAIRER, BRITANY L 789.07 ABDOMINAL PAIN GENERALIZED 10/28/2013 HULL DO, ERICKA K 625.9 PELVIC PAIN 10/28/2013 HULL DO, ERICKA K 789.07 ABDOMINAL PAIN GENERALIZED 10/28/2013 MADL PERCUSSION INSTRUMENT REPAIRER, BRITANY L 625.9 PELVIC PAIN 10/28/2013 MADL PERCUSSION INSTRUMENT REPAIRER, BRITANY L 789.07 ABDOMINAL PAIN GENERALIZED 10/28/2013 625.9 PELVIC PAIN 10/28/2013 789.07 ABDOMINAL PAIN GENERALIZED 10/28/2013 [facility], ERICK R 625.9 PELVIC PAIN 10/28/2013 [facility], ERICK R 789.07 ABDOMINAL PAIN GENERALIZED 10/28/2013 [employer]AD[employer] PERCUSSION INSTRUMENT REPAIRER, BRITANY L 625.9 PELVIC PAIN 10/28/2013 [employer] PERCUSSION INSTRUMENT REPAIRER, BRITANY L 789.07 ABDOMINAL PAIN GENERALIZED 10/28/2013 HULL DO, ERICKA K 625.9 PELVIC PAIN 10/28/2013 HULL DO, ERICKA K 789.07 ABDOMINAL PAIN GENERALIZED 10/28/2013 [employer] PERCUSSION INSTRUMENT REPAIRER, BRITANY L 625.9 PELVIC PAIN 10/28/2013 MAD[employer] PERCUSSION INSTRUMENT REPAIRER, BRITANY L 789.07 ABDOMINAL PAIN GENERALIZED 10/28/2013 MAD[employer] PERCUSSION INSTRUMENT REPAIRER, BRITANY L 625.9 PELVIC PAIN 10/28/2013 MAD[employer] PERCUSSION INSTRUMENT REPAIRER, BRITANY L 789.07 ABDOMINAL PAIN GENERALIZED 10/28/2013 [employer] PERCUSSION INSTRUMENT REPAIRER, BRITANY L 625.9 PELVIC PAIN 10/28/2013 [employer] PERCUSSION INSTRUMENT REPAIRER, BRITANY L 789.07 ABDOMINAL PAIN GENERALIZED 10/28/2013 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, TIFFANI M 625.9 PELVIC PAIN 10/28/2013 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, 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 M 789.07 ABDOMINAL PAIN GENERALIZED 10/28/2013 [employer] PERCUSSION INSTRUMENT REPAIRER, BRITANY L 625.9 PELVIC PAIN 10/28/2013 M[employer] PERCUSSION INSTRUMENT REPAIRER, BRITANY L 789.07 ABDOMINAL PAIN GENERALIZED 10/28/2013 [employer] PERCUSSION INSTRUMENT REPAIRER, BRITANY L 625.9 PELVIC PAIN 10/28/2013 [employer] PERCUSSION INSTRUMENT REPAIRER, BRITANY L 789.07 ABDOMINAL PAIN GENERALIZED 10/29/2013 [employer] PERCUSSION INSTRUMENT REPAIRER, BRITANY L 465.9 UPPER RESPIRATORY INFECTION 10/29/2013 [employer]AD[employer] PERCUSSION INSTRUMENT REPAIRER, BRITANY L 564.00 CONSTIPATION 10/29/2013 HULL DO, ERICKA K 465.9 UPPER RESPIRATORY INFECTION 10/29/2013 HULL DO, ERICKA K 564.00 CONSTIPATION 10/29/2013 [employer] PERCUSSION INSTRUMENT REPAIRER, BRITANY L 465.9 UPPER RESPIRATORY INFECTION 10/29/2013 M[employer] PERCUSSION INSTRUMENT REPAIRER, BRITANY L 564.00 CONSTIPATION 10/29/2013 465.9 UPPER RESPIRATORY INFECTION 10/29/2013 564.00 CONSTIPATION 10/29/2013 [facility], ERICK R 465.9 UPPER RESPIRATORY INFECTION 10/29/2013 [facility], ERICK R 564.00 CONSTIPATION 10/29/2013 MAD[employer] PERCUSSION INSTRUMENT REPAIRER, BRITANY L 465.9 UPPER RESPIRATORY INFECTION 10/29/2013 MAD[employer] PERCUSSION INSTRUMENT REPAIRER, BRITANY L 564.00 CONSTIPATION 10/29/2013 HULL DO, ERICKA K 465.9 UPPER RESPIRATORY INFECTION 10/29/2013 HULL DO, ERICKA K 564.00 CONSTIPATION 10/29/2013 MAD[employer] PERCUSSION INSTRUMENT REPAIRER, BRITANY L 465.9 UPPER RESPIRATORY INFECTION 10/29/2013 MAD[employer] PERCUSSION INSTRUMENT REPAIRER, BRITANY L 564.00 CONSTIPATION 10/29/2013 MAD[employer] PERCUSSION INSTRUMENT REPAIRER, BRITANY L 465.9 UPPER RESPIRATORY INFECTION 10/29/2013 MAD[employer] PERCUSSION INSTRUMENT REPAIRER, BRITANY L 564.00 CONSTIPATION 10/29/2013 MAD[employer] PERCUSSION INSTRUMENT REPAIRER, BRITANY L 465.9 UPPER RESPIRATORY INFECTION 10/29/2013 MAD[employer] PERCUSSION INSTRUMENT REPAIRER, BRITANY L 564.00 CONSTIPATION 10/29/2013 TIFFANI ROSA M 465.9 UPPER RESPIRATORY INFECTION 10/29/2013 TIFFANI ROSA M 564.00 CONSTIPATION 10/29/2013 [employer] PERCUSSION INSTRUMENT REPAIRER, BRITANY L 465.9 UPPER RESPIRATORY INFECTION 10/29/2013 MAD[employer] PERCUSSION INSTRUMENT REPAIRER, BRITANY L 564.00 CONSTIPATION 10/29/2013 MAD[employer] PERCUSSION INSTRUMENT REPAIRER, BRITANY L 465.9 UPPER RESPIRATORY INFECTION 10/29/2013 MAD[employer] PERCUSSION INSTRUMENT REPAIRER, BRITANY L 564.00 CONSTIPATION 11/10/2013 MADL PERCUSSION INSTRUMENT REPAIRER, BRITANY L 461.9 SINUSITIS ACUTE 11/10/2013 461.9 SINUSITIS ACUTE 11/10/2013 [facility], ERICK R 461.9 SINUSITIS ACUTE 11/10/2013 MAD[employer] PERCUSSION INSTRUMENT REPAIRER, BRITANY L 461.9 SINUSITIS ACUTE 11/10/2013 ERICKA HULL DO 461.9 SINUSITIS ACUTE 11/10/2013 MADL PERCUSSION INSTRUMENT REPAIRER, BRITANY L 461.9 SINUSITIS ACUTE 11/10/2013 MAD[employer] PERCUSSION INSTRUMENT REPAIRER, BRITANY L 461.9 SINUSITIS ACUTE 11/10/2013 MAD[employer] PERCUSSION INSTRUMENT REPAIRER, BRITANY L 461.9 SINUSITIS ACUTE 11/10/2013 TIFFANI ROSA M 461.9 SINUSITIS ACUTE 11/10/2013 MAD[employer] PERCUSSION INSTRUMENT REPAIRER, BRITANY L 461.9 SINUSITIS ACUTE 11/10/2013 MAD[employer] PERCUSSION INSTRUMENT REPAIRER, BRITANY L 461.9 SINUSITIS ACUTE 04/23/2014 MAD[employer] PERCUSSION INSTRUMENT REPAIRER, BRITANY L 788.1 DYSURIA 04/23/2014 MAD[employer] PERCUSSION INSTRUMENT REPAIRER, BRITANY L 788.1 DYSURIA 04/23/2014 MAD[employer] PERCUSSION INSTRUMENT REPAIRER, BRITANY L 788.1 DYSURIA 04/23/2014 TIFFANI ROSA M 788.1 DYSURIA 04/23/2014 MAD[employer] PERCUSSION INSTRUMENT REPAIRER, BRITANY L 788.1 DYSURIA 04/23/2014 MADL PERCUSSION INSTRUMENT REPAIRER, BRITANY L 788.1 DYSURIA 05/11/2014 MADL PERCUSSION INSTRUMENT REPAIRER, BRITANY L 041.81 OTHER SPECIFIED BACTERIAL INFECTIONS IN CONDITIONS CLASSIFIED ELSEWHERE AND OF UNSPECIFIED SITE MYCOPLASMA 05/11/2014 MADL PERCUSSION INSTRUMENT REPAIRER, BRITANY L 041.81 OTHER SPECIFIED BACTERIAL INFECTIONS IN CONDITIONS CLASSIFIED ELSEWHERE AND OF UNSPECIFIED SITE MYCOPLASMA 05/11/2014 TIFFANI ROSA M 041.81 OTHER SPECIFIED BACTERIAL INFECTIONS IN CONDITIONS CLASSIFIED ELSEWHERE AND OF UNSPECIFIED SITE MYCOPLASMA 05/11/2014 MADL PERCUSSION INSTRUMENT REPAIRER, BRITANY L 041.81 OTHER SPECIFIED BACTERIAL INFECTIONS IN CONDITIONS CLASSIFIED ELSEWHERE AND OF UNSPECIFIED SITE MYCOPLASMA 05/11/2014 MADL PERCUSSION INSTRUMENT REPAIRER, BRITANY L 041.81 OTHER SPECIFIED BACTERIAL INFECTIONS IN CONDITIONS CLASSIFIED ELSEWHERE AND OF UNSPECIFIED SITE MYCOPLASMA 07/03/2014 TIFFANI ROSA M 278.00 OBESITY UNSPECIFIED 07/03/2014 TIFFANI ROSA 787.1 HEARTBURN 07/03/2014 MADL PERCUSSION INSTRUMENT REPAIRER, BRITANY L 278.00 OBESITY UNSPECIFIED 07/03/2014 MADL PERCUSSION INSTRUMENT REPAIRER, BRITANY L 787.1 HEARTBURN 07/03/2014 MADL PERCUSSION INSTRUMENT REPAIRER, BRITANY L 278.00 OBESITY UNSPECIFIED 07/03/2014 MADL PERCUSSION INSTRUMENT REPAIRER, BRITANY L 787.1 HEARTBURN 07/17/2014 TIFFANI ROSA M 477.9 ALLERGIC RHINITIS CAUSE UNSPECIFIED 07/17/2014 MADL PERCUSSION INSTRUMENT REPAIRER, BRITANY L 477.9 ALLERGIC RHINITIS CAUSE UNSPECIFIED 07/17/2014 MADL PERCUSSION INSTRUMENT REPAIRER, BRITANY L 477.9 ALLERGIC RHINITIS CAUSE UNSPECIFIED 08/13/2014 MADL PERCUSSION INSTRUMENT REPAIRER, BRITANY L 701.9 UNSPECIFIED HYPERTROPHIC AND ATROPHIC CONDITIONS OF SKIN 02/23/2017 MADL, BRITANY L SHORTHAND TEACHER Ot 789.00 ABDOMINAL PAIN, UNSPECIFIED SITE 02/23/2017 MADL, BRITANY L SHORTHAND TEACHER Ot 793.5 NOSP (ABN) FINDINGS ON RADIOLOGICAL OT 02/23/2017 MADL, BRITANY L SHORTHAND TEACHER Ot 789.00 ABDOMINAL PAIN, UNSPECIFIED SITE 01/31/2018 BRITANY BOSCH SHORTHAND TEACHER Ot 789.00 ABDOMINAL PAIN, UNSPECIFIED SITE 01/31/2018 BRITANY BOSCH SHORTHAND TEACHER Ot 793.5 NOSP (ABN) FINDINGS ON RADIOLOGICAL OT 01/31/2018 BRITANY BOSCH SHORTHAND TEACHER Ot 789.00 ABDOMINAL PAIN, UNSPECIFIED SITE 04/01/2018 KIMI MCKEON, LULY Lin Ot L02.214 CUTANEOUS ABSCESS OF GROIN 04/01/2018 KIMI MCKEON, LULY Lin Ot L02.31 CUTANEOUS ABSCESS OF BUTTOCK 04/01/2018 KIMI MCKEON, LULY Lin Ot M25.562 PAIN IN LEFT KNEE 04/01/2018 KIMI MCKEON, LULY Lin Ot Z87.442 PERSONAL HISTORY OF URINARY CALCULI 04/01/2018 KIMI MCKEON, LULY Lin Ot Z88.0 ALLERGY STATUS TO PENICILLIN 04/01/2018 LULY BOLDEN MD, Ot Z98.51 TUBAL LIGATION STATUS Procedures Code Description [place] [address] UA W/ CULTURE IF INDICATED 02/22/2012 22119 CULTURE URINE 02/24/2012 77372 TB TEST INTRADERMAL 03/21/2012 36738 PSYTX IND W/MED CK 45-50 03/21/2012 95139 MAMMOGRAM, SCREENING 05/08/2012 58581 GC/CHLAM PROBE (STATE) 05/08/2012 Q0091 PAP SMEAR OBTAIN SMEAR 05/08/2012 50983 ROUTINE VENIPUNCTURE 05/30/2012 2484611 GFR CALC (RESULT ONLY) 05/30/2012 44334 CMP 05/31/2012 26237 HIV ANTIBODIES (RML) 05/31/2012 42156 A1C (IN-HOUSE) 05/31/2012 86341 TRICHOMONAS (IN-HOUSE) 05/31/2012 79572 SYPHILIS TEST 05/31/2012 95348 CULTURE UROGENITAL 06/02/2012 30057 PAP SMEAR 06/06/2012 47739 UA LONG DIP 08/06/2012 95852 CULTURE UROGENITAL 08/07/2012 61353 CULTURE URINE 08/07/2012 04892 UA W/ CULTURE IF INDICATED 09/21/2012 17497 TRICHOMONAS (IN-HOUSE) 10/24/2012 16074 HERPES SIMPLEX CULTURE 10/25/2012 56432 CULTURE UROGENITAL 10/27/2012 30729 GC/CHLAM PROBE (STATE) 10/28/2012 02569 ROUTINE VENIPUNCTURE 11/11/2012 33681 ALPRAZOLAM (XANAX) QUANT 11/11/2012 47093 PSYCH IND W/MED CK 20 09/16/2013 49006 XRAY ABDOMEN 2 VIEWS 10/20/[address] ABDOMEN & PELVIS W/ & W/O CONTRAST 10/20/2013 56991 US PELVIC ULTRASOUND, F/U (NON- OB) 10/20/2013 76216 UA W/ CULTURE IF INDICATED 10/20/2013 64159 PSYCH DIAGNOSTIC EVALUATION 12/10/2013 92953 ROUTINE VENIPUNCTURE 04/23/2014 04037 XRAY CHEST 2 VIEW 04/23/2014 41734 OXIMETRY 04/23/2014 88373 UA W/ CULTURE IF INDICATED 04/23/2014 83198 CBC 04/23/2014 01323 MYCOPLASMA ANTIBODY 04/24/2014 42530 OXIMETRY 06/26/2014 86131 PSYCH DIAG EVAL W/MED SRVCS 08/03/2014 60776 ROUTINE VENIPUNCTURE 08/04/2014 9842440 GFR CALC (RESULT ONLY) 08/04/2014 17287 BMP 08/04/2014 Results Test Result Range [facility] - 02/21/17 17:44 Glucose, Serum 94 mg/dL [...] IU/L 0-40 ALT (SGPT) 24 IU/L 0-32 CULTURE, URINE - 12/07/17 16:50 CULTURE, URINE, ROUTINE SEE NOTE NRG CULTURE, URINE - 01/30/18 17:20 CULTURE, URINE, ROUTINE SEE NOTE NRG CULTURE, GENITAL - 01/30/18 17:20 CULTURE, GENITAL SEE NOTE NRG SUREPATH PAP AND HPV mRNA E6/E7 - 01/30/18 17:20 CLINICAL INFORMATION: NRG LMP: N/A NRG PREV. PAP: 2013-WNL NRG PREV. BX: NRG SOURCE: Cervix NRG STATEMENT OF ADEQUACY: NRG INTERPRETATION/RESULT: NRG BOOKIE: NRG HPV mRNA E6/E7, SUREPATH VIAL Not [...] 9.8 fL 7.5-12.5 ABSOLUTE NEUTROPHILS 3476 cells/uL 2528-2322 ABSOLUTE LYMPHOCYTES 3808 cells/uL 850-3900 ABSOLUTE MONOCYTES 427 cells/uL 200-950 ABSOLUTE EOSINOPHILS 119 cells/uL 15-500 ABSOLUTE BASOPHILS 71 cells/uL 0-200 NEUTROPHILS 44 % NRG LYMPHOCYTES 48.2 % NRG MONOCYTES 5.4 % NRG EOSINOPHILS 1.5 % NRG BASOPHILS 0.9 % NRG TSH - 02/01/18 12:19 TSH 2.38 mIU/L NRG Gram stain microscopy - 03/22/18 01:25 Gram stain microscopy GRAM STAIN PERFORMED AT [facility] NRG Bacteria identification in wound by culture - 03/22/18 01:25 Bacteria identification in wound by culture SEE COMMEN NRG QUANTITY OF GROWTH . NRG Gram stain microscopy - 03/23/18 01:25 Gram stain microscopy GRAM STAIN PERFORM AT [facility] NR Bacteria identification in wound by culture - 03/23/18 01:25 Bacteria identification in wound by culture [id number] NRG FREE TEXT EXTERNAL NORMAL SKIN STACIA ISOLATED; NO NRG QUANTITY OF GROWTH Rare NRG FREE TEXT ENTRY 2 SUSCEPTIBILITIES SET UP NRG CULTURE, URINE - 04/25/18 15:56 CULTURE, URINE, ROUTINE SEE NOTE NRG Encounters ACCT No. Visit Date/Time Discharge Status Pt. Type Provider Facility Loc./Unit Complaint [id number] 08/13/2014 15:04:00 08/13/2014 23:59:59 CLS Outpatient MADL PERCUSSION INSTRUMENT REPAIRER, BRITANY L [id number] 08/04/2014 13:45:00 08/04/2014 23:59:59 CLS Outpatient MADL PERCUSSION INSTRUMENT REPAIRER, BRITANY L [id number] 07/10/2014 08:00:00 07/10/2014 23:59:59 CLS Outpatient TIFFANI ROSA [id number] 06/26/2014 10:42:00 06/26/2014 23:59:59 CLS Outpatient MADL PERCUSSION INSTRUMENT REPAIRER, BRITANY L [id number] 06/12/2014 14:06:00 06/12/2014 23:59:59 CLS Outpatient JOHN ROWLEY DDS [id number] 05/11/2014 14:28:00 05/11/2014 23:59:59 CLS Outpatient MADL PERCUSSION INSTRUMENT REPAIRER, BRITANY L [id number] 04/23/2014 10:05:00 04/23/2014 23:59:59 CLS Outpatient MADL PERCUSSION INSTRUMENT REPAIRER, BRITANY L [id number] 02/23/2014 08:44:00 02/23/2014 23:59:59 CLS Outpatient ERICKA HULL DO [id number] 01/08/2014 10:39:00 01/08/2014 23:59:59 CLS Outpatient MADL PERCUSSION INSTRUMENT REPAIRER, BRITANY L [id number] 12/10/2013 10:05:00 12/10/2013 23:59:59 CLS Outpatient ERICK MUÑOZ [id number] 11/25/2013 11:42:00 11/25/2013 23:59:59 CLS Outpatient [id number] 11/10/2013 08:32:00 11/10/2013 23:59:59 CLS Outpatient BRITANY BOSCH APRN [id number] 10/29/2013 09:33:00 10/29/2013 23:59:59 CLS Outpatient BRITANY BOSCH APRN [id number] 10/20/2013 08:27:00 10/20/2013 23:59:59 CLS Outpatient ERICKA HULL DO [id number] 10/20/2013 08:27:00 10/20/2013 23:59:59 CLS Outpatient BRITANY BOSCH APRN [id number] 10/01/2013 08:23:00 10/01/2013 23:59:59 CLS Outpatient MARC MADDOX APRN [id number] 09/02/2013 15:36:00 09/02/2013 23:59:59 CLS Outpatient ARLENE LEMA APRN [id number] 03/27/2013 08:19:00 03/27/2013 23:59:59 CLS Outpatient ARLENE LEMA APRN [id number] 03/27/2013 08:19:00 03/27/2013 23:59:59 CLS Outpatient ARLENE LEMA APRN [id number] 01/23/2013 08:21:00 01/23/2013 23:59:59 CLS Outpatient ARLENE LEMA APRN [id number] 01/23/2013 08:21:00 01/23/2013 23:59:59 CLS Outpatient ARLENE LEMA APRN [id number] 08/06/2012 14:48:00 08/06/2012 23:59:59 CLS Outpatient STACIA PERCUSSION INSTRUMENT REPAIRERNAY Wells [id number] 07/12/2012 10:54:00 07/12/2012 23:59:59 CLS Outpatient IVET BARGER DO [id number] 05/30/2012 13:35:00 05/30/2012 23:59:59 CLS Outpatient [id number] 03/21/2012 12:47:00 03/21/2012 23:59:59 CLS Outpatient ARLENE LEMA APRN [id number] 03/21/2012 00:00:00 03/21/2012 23:59:59 CLS Outpatient ARLENE LEMA APRN [id number] 02/15/2012 13:32:00 02/15/2012 23:59:59 CLS Outpatient IVET BARGER DO [id number] 11/11/2012 15:17:00 Document Registration [id number] 11/01/2012 10:23:00 Document Registration [id number] 11/01/2012 10:23:00 Document Registration [id number] 10/24/2012 11:31:00 Document Registration [id number] 09/21/2012 14:03:00 Document Registration [id number] 09/21/2012 14:03:00 Document Registration [id number] 09/05/2018 13:40:00 09/05/2018 23:59:59 CLS Outpatient MADL PERCUSSION INSTRUMENT REPAIRER, BRITANY [facility] [id number] 04/25/2018 14:40:00 Document Registration [id number] 02/01/2018 11:00:00 Document Registration [id number] 01/30/2018 15:40:00 Document Registration [id number] 12/07/2017 14:40:00 Document Registration [id number] 02/21/2017 16:20:00 Document Registration [id number] 03/22/2018 21:29:00 03/23/2018 02:56:00 DIS Outpatient KIMI MCKEON, LULY Lin [facility] ER L KNEE PAIN/WANTS BOIL LOOKED AT [id number] 02/05/2018 09:30:00 02/05/2018 23:59:59 CLS Preadmit MONIQUE VILLARREAL Martha PERCUSSION INSTRUMENT REPAIRER [facility] RAD SCREENING [id number] 02/22/2017 08:54:00 02/22/2017 23:59:59 CLS Preadmit MADL, BRITANY L SHORTHAND TEACHER [facility] RAD R10.13 DYSPEPSIA [id number] 10/30/2013 11:11:00 10/30/2013 23:59:59 CLS Outpatient MADL, BRITANY L SHORTHAND TEACHER [facility] RAD ABDOMINAL PAIN [id number] 10/24/2013 10:00:00 10/24/2013 23:59:59 CLS Outpatient MADL, BRITANY L SHORTHAND TEACHER [facility] RAD ABD PAIN [id number] 12/25/2012 13:56:00 12/27/2012 15:38:00 DIS Outpatient COSENS DO, JACQUELINE L [facility] REHAB UPPER BACK, NECK PAIN [id number] 12/16/2012 20:08:00 12/17/2012 01:17:00 DIS Emergency LULY BOLDEN MD [facility] ER VOMITTING,DIARRHEA [id number] 12/06/2012 22:43:00 12/06/2012 23:57:00 DIS Emergency ULLY BOLDEN MD [facility] ER BACK INJ [id number] 09/28/2018 03:42:00 ACT Emergency LULY BOLDEN MD [facility] ER BOIL IN CREASE OF BUTTOCKS LEG
--- NOTE | 2018-09-28 04:47 | NUR ---
WOUND CX FROM ABSCESS OF RIGHT GLUTEAL FOLD OBTAINED BY DR. BOLDEN.
[2018-09-28] MEDS ORDERED: SULF1TAB35 PO (05:01)
--- NOTE | 2018-09-28 05:02 | ED General ---
General Chief Complaint: Skin/Wound Problems Stated Complaint: BOIL IN CREASE OF BUTTOCKS & LEG Source of Information: Patient Exam Limitations: No Limitations History of Present Illness Date Seen by Provider: September 28, 2018 Time Seen by Provider: 04:07 Initial Comments This 43-year-old woman presents to emergency room with an abscess on her right buttocks that has been worsening over the past couple of days. She denies any fever. It has not drained. She is afebrile at present. Pain is increasing and she is having difficulty sleeping. Allergies and Home Medications Allergies Coded Allergies: Penicillins (Unverified Allergy, Unknown, 05/29/11) Home Medications Alprazolam 0.5 Mg Tablet, 1 TAB PO TID PRN, (Reported) Ciprofloxacin 500 Mg Tablet, 1 TAB PO BID Prescribed by: LULY NEIL on 12/17/126 Cyclobenzaprine Hcl 10 Mg Tablet, 1 EACH PO BID, (Reported) Hyoscyamine Sulfate 0.125 Mg Tab, 0.125 MG SL Q4H as needed for abdominal cramping or diarrhea Prescribed by: LULY NEIL on 12/17/126 Ibuprofen 800 Mg Tab, 800 MG PO Q8HR PRN Prescribed by: LULY NEIL on 12/06/122341 Ibuprofen 600 Mg Tablet, 1 EACH PO QID PRN Take with food Prescribed by: LULY NEIL on 12/17/126 Nebivolol Hcl 10 Mg Tablet, 1 EACH PO DAILY, (Reported) Ondansetron Hcl 4 Mg Tab, 4 MG SL Q4H disolve under the tongue every 4 hours as needed for nausea Prescribed by: LULY NEIL on 12/17/126 Sulfamethoxazole/Trimethoprim 1 Each Tablet, 1 EACH PO BID Prescribed by: LULY NEIL on 03/23/18 0200 Sulfamethoxazole/Trimethoprim 1 Each Tablet, 1 EACH PO BID Prescribed by: LULY NEIL on 09/28/18 0501 Patient Home Medication List Home Medication List Reviewed: Yes Review of Systems Review of Systems Constitutional: no symptoms reported EENTM: no symptoms reported Respiratory: no symptoms reported Cardiovascular: no symptoms reported Gastrointestinal: no symptoms reported Genitourinary: no symptoms reported : No Musculoskeletal: no symptoms reported Skin: see HPI Psychiatric/Neurological: No Symptoms Reported Hematologic/Lymphatic: No Symptoms Reported Immunological/Allergic: no symptoms reported Past Rxmjnqc-Kjxzaw-Zkknjk Hx Past Med/Social Hx: Reviewed Nursing Past Med/Soc Hx Patient Social History Alcohol Use: Occasionally Uses Recreational Drug Use: No Type Used: Cigarettes 2nd Hand Smoke Exposure: No Recent Foreign Travel: No Contact w/Someone Who Travel: No Recent Hopitalizations: No Immunizations Up To Date Date of Influenza Vaccine: Mar 14, 2011 Seasonal Allergies Seasonal Allergies: No Past Medical History Surgeries: Yes Appendectomy, Tubal Ligation Respiratory: No Cardiac: Yes Hypertension Neurological: No Reproductive Disorders: No 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 0.0oz. 113.783095cf; 41.60 BMI Method:Stated General Appearance: No Apparent Distress, WD/WN HEENT: Normal ENT Inspection Respiratory: No Respiratory Distress Cardiovascular: Regular Rate, Rhythm Extremity: Normal Inspection Neurologic/Psychiatric: Alert, Oriented x3, No Motor/Sensory Deficits, Normal Mood/Affect Skin: Warm/Dry, Other (abscess on the medial right buttock with mild blanching erythema.) Procedures/Interventions I&D : Blade Size: 11 Progress Patient was pretreated with a shot of Toradol. Skin was cleansed with alcohol. Approximately 2 mL of lidocaine with epinephrine was injected for local anesthetic. Skin was again cleaned with chlorhexidine wipes. A 1 cm incision was made directly over the area of greatest fluctuance. Copious amounts of pus drained from the wound. Loculations were broken with hemostat. Wound was irrigated with a filter needle tip and normal saline. It was dressed with gauze. Patient was given a dose of Bactrim. Progress/Results/Core Measures Suspected Sepsis SIRS Temperature: Pulse: Respiratory Rate: Blood Pressure / Mean: Results/Orders My Orders Orders - LULY BOLDEN MD Ketorolac Injection (Toradol Injection) (09/28/18 04:15) Lidocaine/Epi 2% 1:100,000 (Xylocaine/Ep (09/28/18 04:15) Sulfamethoxazole/Trimet Ds Tab (Bactrim (09/28/18 04:30) Wound Culture (09/28/18 04:16) Medications Given in ED Current Medications Medications Dose Ordered Sig/David Route Start Time Stop Time Status Last Admin Dose Admin Ketorolac Tromethamine 30 mg ONCE ONCE IM 09/28/18 04:15 09/28/18 04:17 DC 09/28/18 04:27 30 MG Lidocaine/ Epinephrine 20 ml ONCE ONCE INJ 09/28/18 04:15 09/28/18 04:17 DC 09/28/18 04:27 5 ML Trimethoprim/ Sulfamethoxazole 1 ea ONCE ONCE PO 09/28/18 04:30 09/28/18 04:31 DC 09/28/18 04:26 1 EA Vital Signs/I&O 09/28/18 04:00 Temp 98.1 Pulse 101 Resp 18 B/P (MAP) 119/92 (101) Capillary Refill : Progress Note : Progress Note Patient was given Bactrim. At her request she was pretreated before incision and drainage with a Toradol injection. Lidocaine with epinephrine was used for local anesthetic. Wound was incised and drained. Culture was obtained. Departure Impression Primary Impression: Abscess of right buttock Additional Impression: Encounter for incision and drainage procedure Disposition: 01 HOME, SELF-CARE Condition: Improved Departure-Patient Inst. Decision time for Depature: 04:59 Referrals: [facility] (PCP/Family) Primary Care Physician Patient Instructions: Abscess Incision and Drainage (DC), Skin Abscess Add. Discharge Instructions: Keep the wound clean and dry except for normal bathing until healed. Keep the wound covered until it stops draining. You may take ibuprofen up to 600 mg every 6 hours and Tylenol (acetaminophen) up to 1000 mg every 6 hours as needed for pain. Return to care if you have worsening symptoms. You may do sitz baths in warm soapy water 2 or 3 times a day to encourage draining until the wound heals over. All discharge instructions reviewed with patient and/or family. Voiced understanding. Scripts Sulfamethoxazole/Trimethoprim (Bactrim Ds Tablet) 1 Each Tablet 1 EACH PO BID, #14 TAB Prov: LULY BOLDEN MD 09/28/18 Work/School Note: Work Release Form Date Seen in the Emergency Department: September 28, 2018 Return to Work: September 29, 2018 Restrictions: No Restrictions LULY BOLDEN MD September 28, 2018 05:02
[2018-09-28 05:10] VITALS: BP 120/90
--- NOTE | 2018-10-01 13:01 | NUR ---
ATTEMPTED TO CONTACT PATIENT TO CHANGE ANTIBIOTIC. LEFT MESSAGE ON #[phone] TO RETURN CALL TO [facility]IA [facility] J[facility]. DR GREER AWARE
== END 2018-09-28 05:11 | disposition home or self-care (01) ==
LOC: EDUNIT# 03:39 → ER 03:42
DX: L02.31 Cutaneous abscess of buttock (principal); I10 Essential (primary) hypertension; K21.9 Gastro-esophageal reflux disease without esophagitis; E11.9 Type 2 diabetes mellitus without complications; Z87.442 Personal history of urinary calculi; Z88.0 Allergy status to penicillin; Z90.49 Acquired absence of other specified parts of digestive tract; Z98.51 Tubal ligation status
CPT/HCPCS: 87070; 87077; 87205

== ENCOUNTER → 2020-11-22 | Outpatient (CLI) | payer BC ==
[~2020-11-22] MED LIST changes: +ACHD5005 PO; +ONDA8TAB13 PO; -SULF1TAB35 PO; +SULF1TAB38 PO
--- NOTE | 2020-11-22 13:16 | Diagnostic Imaging Report ---
PROCEDURE: US Bilateral lower extremity arterial. TECHNIQUE: Multiple real-time grayscale images were obtained over the bilateral lower EXTREMITIES in various projections. Additional duplex Doppler and color Doppler images were also obtained. HISTORY: Bilateral lower extremity claudication symptoms. COMPARISON: None FINDINGS: Color images demonstrate scattered mild plaque-like formation be present within the major arteries. Right lower extremity: The major arteries of the right leg are patent to the ankle. There is detectable flow at the dorsalis pedis and posterior tibial arteries at the ankle. Multiphasic waveform is present throughout the left lower extremity arterial system. There is no focal velocity changes to suggest a hemodynamically significant stenosis. Left lower extremity: The major arteries of the left leg are patent to the ankle. There is detectable flow at the dorsalis pedis and posterior tibial arteries at the ankle. Multiphasic waveform is present throughout the left lower extremity arterial system. There is no focal velocity changes to suggest a hemodynamically significant stenosis. RIGHT DEREK: N/A LEFT DEREK: N/A IMPRESSION: 1. Patent right lower extremity arterial system. There is no large vessel occlusion or hemodynamically significant stenosis in the right lower extremity. 2. Patent left lower extremity arterial system. There is no large vessel occlusion or hemodynamically significant stenosis in the left lower extremity. Dictated by: Dictated on workstation # [id number]
== END ==
LOC: RAD 09:00
PROVIDERS: ATTEND Nurse Practitioner Family
DX: I73.9 Peripheral vascular disease, unspecified (principal)
CPT/HCPCS: 93925

== ENCOUNTER 2020-11-25 14:13 | Emergency (ER) | payer BC ==
[~2020-11-25] VITALS: Ht 165 cm; Wt 110.0 kg
[~2020-11-25 14:13] MED LIST changes: -ACHD5005 PO; -ONDA8TAB13 PO
--- NOTE | 2020-11-25 14:39 | ED Headache ---
General Chief Complaint: Head/Cervical Problems Stated Complaint: MIGRAINE,COUGH,FEVER Nursing Triage Note: ARRIVED VIA AMB WITH COMPLAINTS OF A MIGRAINE, DIZZY, AND COUGH X4 DAYS. SINUS PRESSURE. Source: patient Exam Limitations: no limitations History of Present Illness Date Seen by Provider: Nov 25, 2020 Time Seen by Provider: 14:37 Initial Comments He was babysitting her granddaughter 4 days ago. Granddaughter had cough and diarrhea and fussiness. She will he awakened the next day to complain of cough dizziness migraine and sinus pressure. No fevers. Unvaccinated against Covid. This is day 3 of illness for her. Timing/Duration: other Severity/Quality: moderate Location: frontal Associated Symptoms: nausea/vomiting, nasal congestion Allergies and Home Medications Allergies Coded Allergies: Penicillins (Unverified Allergy, Unknown, 05/29/11) Home Medications Alprazolam 0.5 Mg Tablet, 1 TAB PO TID PRN, (Reported) Ciprofloxacin 500 Mg Tablet, 1 TAB PO BID Prescribed by: LULY ENIL on 12/17/126 Cyclobenzaprine Hcl 10 Mg Tablet, 1 EACH PO BID, (Reported) Hyoscyamine Sulfate 0.125 Mg Tab, 0.125 MG SL Q4H as needed for abdominal cramping or diarrhea Prescribed by: LULY NEIL on 12/17/126 Ibuprofen 800 Mg Tab, 800 MG PO Q8HR PRN Prescribed by: LULY NEIL on 12/06/12 2342 Ibuprofen 600 Mg Tablet, 1 EACH PO QID PRN Take with food Prescribed by: LULY NEIL on 12/17/126 Nebivolol Hcl 10 Mg Tablet, 1 EACH PO DAILY, (Reported) Ondansetron Hcl 4 Mg Tab, 4 MG SL Q4H disolve under the tongue every 4 hours as needed for nausea Prescribed by: LULY NEIL on 12/17/126 Sulfamethoxazole/Trimethoprim 1 Each Tablet, 1 EACH PO BID Prescribed by: LULY NEIL on 03/23/18 0200 Sulfamethoxazole/Trimethoprim 1 Each Tablet, 1 EACH PO BID Prescribed by: LULY NEIL on 09/28/18 0501 Patient Home Medication List Home Medication List Reviewed: Yes Review of Systems Review of Systems Constitutional: see HPI Eyes: No Symptoms Reported Ears, Nose, Mouth, Throat: see HPI (Pressure sensation over the bridge of the nose and maxillary sinuses) Respiratory: cough Cardiovascular: no symptoms reported Genitourinary: no symptoms reported Musculoskeletal: no symptoms reported Skin: no symptoms reported Psychiatric/Neurological: See HPI, Headache Past Xutvevr-Gkamev-Gptdmw Hx Patient Social History Smoking Status: Current Everyday Smoker Substance use?: No Alcohol Use?: No Seasonal Allergies Seasonal Allergies: No Past Medical History Surgeries: Yes Appendectomy, Tubal Ligation Respiratory: No Cardiac: Yes Hypertension Neurological: No Reproductive Disorders: No 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 0oz. [id number]; 40.00 BMI Method:Stated General Appearance: WD/WN, no apparent distress HEENT: PERRL/EOMI, normal ENT inspection Neck: non-tender, full range of motion Cardiovascular: regular rate, rhythm, no murmur Respiratory: normal breath sounds, no respiratory distress, no accessory muscle use Extremities: normal range of motion, non-tender Psychiatric: alert, oriented x 3 Crainal Nerves: normal hearing, normal speech, PERRL Skin: normal color, warm/dry Progress/Results/Core Measures Results/Orders Lab Results Laboratory Tests Test 11/25/20 14:26 Range/Units SARS-CoV-2 RNA (RT-PCR) Detected H Not Detecte My Orders Orders - DENISE BRUSH APRN Covid 19 Inhouse Test (11/25/20 14:18) Ketorolac Injection (Toradol Injection) (11/25/20 14:45) Prochlorperazine Injection (Compazine In (11/25/20 14:45) Diphenhydramine Injection (Benadryl Inje (11/25/20 14:45) Medications Given in ED Current Medications Medications Dose Ordered Sig/David Route Start Time Stop Time Status Last Admin Dose Admin Diphenhydramine HCl 25 mg ONCE ONCE IM 11/25/20 14:45 11/25/20 14:46 DC 11/25/20 14:41 25 MG Ketorolac Tromethamine 60 mg ONCE ONCE IM 11/25/20 14:45 11/25/20 14:46 DC 11/25/20 14:42 60 MG Prochlorperazine Edisylate 10 mg ONCE ONCE IM 11/25/20 14:45 11/25/20 14:46 DC 11/25/20 14:41 10 MG Vital Signs/I&O 11/25/20 14:25 Temp 36.4 Pulse 86 Resp 16 B/P (MAP) 136/94 (108) Pulse Ox 99 O2 Delivery Room Air Blood Pressure Mean: 108 Departure Communication (Admissions) 1537-I discussed with her the treatment possibilities using Regeneron which is experimental in nature. Discussed with her the risks and the alternatives of treatment and she would like to proceed with this. Impression Primary Impression: COVID-19 Disposition: 01 HOME, SELF-CARE Condition: Stable Departure-Patient Inst. Decision time for Depature: 15:21 Referrals: NO,LOCAL PHYSICIAN (PCP/Family) Primary Care Physician Patient Instructions: COVID-19 ED Add. Discharge Instructions: Scheduling department will call you tomorrow with a time to show up for the Regeneron infusion. Return to ER for any concerns in the meantime Tylenol and ibuprofen for pain control. All discharge instructions reviewed with patient and/or family. Voiced understanding. Scripts Hydrocodone/Acetaminophen (Hydrocodone-Acetamin 5-325 mg) 1 Each Tablet 1 TAB PO Q4H PRN for PAIN-MODERATE (5-7), #14 TAB Prov: DENISE BRUSH [employer]OMOTIVE LOT ATTENDANT 11/25/20 Ondansetron (Ondansetron Odt) 8 Mg Tab.rapdis 8 MG PO Q6H PRN for NAUSEA/VOMITING, #14 TAB Prov: DENISE BRUSH [employer]OM[employer] LOT ATTENDANT 11/25/20 DENISE BRUSH [employer] LOT ATTENDANT Nov 25, 2020 14:39
[2020-11-25] MEDS ORDERED: PROCHLORPERAZINE 10 MG/2ML INJ (COMPAZINE) IM ONE (14:45)
[2020-11-25] MEDS ORDERED: KETOROLAC 60 MG/2 ML VIAL IM ONE (14:45)
[2020-11-25] MEDS ORDERED: diphenhydrAMINE 50 MG/ML INJ (BENADRYL) IM ONE (14:45)
[2020-11-25] MEDS ORDERED: ONDA8TAB13 PO (15:41)
[2020-11-25] MEDS ORDERED: ACHD5005 PO (15:41)
[2020-11-25 15:48] VITALS: BP 136/94
== END 2020-11-25 15:47 | disposition home or self-care (01) ==
LOC: EDUNIT# 14:13 → ER 14:14
DX: U07.1 COVID-19 (principal); I10 Essential (primary) hypertension; E11.9 Type 2 diabetes mellitus without complications; G89.29 Other chronic pain; M54.9 Dorsalgia, unspecified; F17.200 Nicotine dependence, unspecified, uncomplicated; Z79.1 Long term (current) use of non-steroidal anti-inflammatories (NSAID); Z79.899 Other long term (current) drug therapy
CPT/HCPCS: 87636; 99284

== ENCOUNTER 2020-11-26 09:27 | Outpatient (CLI) | payer BC ==
[~2020-11-26] VITALS: Ht 165.1 cm; Wt 110.7 kg
[2020-11-26 09:22] VITALS: BP 187/118
[~2020-11-26 09:27] MED LIST changes: +ACHD5005 PO; +ONDA8TAB13 PO
[2020-11-26] MEDS ORDERED: diphenhydrAMINE 50 MG/ML INJ (BENADRYL) IV PRN (09:30)
[2020-11-26] MEDS ORDERED: CASIRIVIMAB/IMDEVIMAB 1,200 MG in NS (IVPB) 250 ML IV ONE (09:30)
[2020-11-26] MEDS ORDERED: EPINEPHrine INJECTION 1 MG/ML AMP IM PRN (09:30)
[2020-11-26 10:30] VITALS: BP 133/85
== END 2020-11-26 11:25 ==
LOC: INFUSION 09:27
PROVIDERS: ATTEND Nurse Practitioner Family
DX: Z23 Encounter for immunization (principal); U07.1 COVID-19

== ENCOUNTER → 2022-04-27 | Outpatient (CLI) | payer BC ==
--- NOTE | 2022-04-27 16:19 | Diagnostic Imaging Report ---
EXAMINATION: Chest 2 view HISTORY: COUGH CHRONIC COMPARISON: None available. FINDINGS: Heart size and pulmonary vasculature are normal. The lungs are clear without consolidation, pleural effusion, or pneumothorax. The osseous structures are intact. IMPRESSION: 1. No acute radiographic abnormality in the chest. Dictated by: Dictated on workstation # [id number]
--- NOTE | 2022-04-28 10:36 | Diagnostic Imaging Report ---
Indication: Routine screening. No prior mammograms are available for comparison. 2-D and 3-D bilateral screening mammography was performed with CAD. Scattered fibroglandular densities are identified bilaterally. No mass or malignant-appearing microcalcifications are seen. Axillae are unremarkable. IMPRESSION: BI-RADS Category 1 No mammographic features suspicious for malignancy are identified. ACR BI-RADS Category 1: Negative. Result letter will be mailed to the patient. Note: At least 10% of breast cancer is not imaged by mammography. Dictated by: Dictated on workstation # [id number]
== END ==
LOC: RAD 15:04
PROVIDERS: ATTEND Nurse Practitioner Family
DX: Z12.31 Encounter for screening mammogram for malignant neoplasm of breast (principal); R05.3 Chronic cough
CPT/HCPCS: 71046; 77063; 77067

== ENCOUNTER → 2022-12-07 | Outpatient (CLI) | payer BC, MEDICAID ==
[~2022-12-07] MED LIST changes: +TRAM50TA3 PO
== END ==
LOC: ORTHO 09:48
PROVIDERS: ATTEND Orthopaedic Surgery
DX: S92.352A Displaced fracture of fifth metatarsal bone, left foot, initial encounter for closed fracture (principal); X58.XXXA Exposure to other specified factors, initial encounter
CPT/HCPCS: 99203

== ENCOUNTER → 2023-01-02 | Outpatient (CLI) | payer BC ==
--- NOTE | 2023-01-02 08:55 | Diagnostic Imaging Report ---
EXAMINATION: Left foot 3 views HISTORY: Fracture COMPARISON: 12/01/2022 FINDINGS: There is unchanged alignment of a fracture of the base of the left 5th metatarsal. No dislocation. Joint spaces are normal. No other fracture is seen. IMPRESSION: 1. Unchanged alignment of a healing fracture of the base left 5th metatarsal without bridging bone. Dictated by: Dictated on workstation # [id number]
== END ==
LOC: ORTHO 08:23
PROVIDERS: ATTEND Orthopaedic Surgery
DX: S92.355A Nondisplaced fracture of fifth metatarsal bone, left foot, initial encounter for closed fracture (principal); X58.XXXA Exposure to other specified factors, initial encounter
CPT/HCPCS: 73630; 99213